=== PATIENT | female | born 1960 | race Caucasian/White ===

== ENCOUNTER → 2022-04-25 10:14 | Outpatient (POV) | payer BC, SELFPAY ==
[2022-04-25 11:55] VITALS: BP 134/83; PULSE 76; RESP 20; TEMP 36.4; O2SAT 99; BMI 21.9
[2022-04-25 13:16] LABS: Amphetamine/Metha Screen,Urine Negative ng/ml (<1000)
[2022-04-25 13:18] LABS: Phencyclidine Screen,Urine Negative ng/ml (<25)
[2022-04-25 13:19] LABS: Barbiturates Screen,Urine Negative ng/ml (<200)
[2022-04-25 13:20] LABS: Benzodiazepines Screen,Urine Negative ng/ml (<200)
[2022-04-25 13:21] LABS: Cannabinoid Screen,Urine Negative ng/ml (<50)
[2022-04-25 13:24] LABS: Cocaine Screen,Urine Negative ng/ml (<300)
[2022-04-25 13:25] LABS: Methadone Screen,Urine Negative ng/ml (<300)
[2022-04-25 13:26] LABS: Opiate Screen,Urine Negative ng/ml (<300)
--- NOTE | 2022-04-25 13:27 | HMH.PMCON ---
Assessment and Plan (1) Crohn's disease Status: Acute Category: Medical Code(s): K50.90 - Crohn's disease, unspecified, without complications (2) Generalized abdominal pain Status: Acute Category: Medical Code(s): R10.84 - Generalized abdominal pain (3) Generalized pain Status: Acute Category: Medical Code(s): R52 - Pain, unspecified - Assessment and plan all Dx Assessment and Plan for all problems:: Patient presents today with generalized pain secondary to severe Crohn's disease. She has had multiple abdominal surgeries. States her colon is plastic. She takes tramadol 50mg 2 tablets three times a day. She is wanting us to continue her medications. At this time, we will start the patient on tramadol 50mg TID. We will obtain a UDS from the pt today. Patient has been instructed to contact the clinic with any concerns before the next appointment. Dr. Rankin has reviewed this note and agrees with this plan of care. This note was dictated using voice recognition software and make contain errors or omissions. HPI - Data of Consult Patient: new to practice Consult date: 04/25/22 Requesting Physician: HEATHER Matos Primary Care Provider: Referral Provider, MD - Consult Narrative Reason for consult: Generalized pain History of present illness: Ms. Sy is a 61 year old female who presents today as a new patient. Patient is referred by Dr. Lopez. Thank you for the referral. Patient presents today with chronic generalized pain especially around abdominal area. Patient has a 40-year history of Crohn's disease. She has had multiple abdominal surgeries. She previously was seeing [facility] pain [facility] spine in [facility] but was discharged from there. She was being prescribed tramadol 50 mg 2 tablets 3 times a day. She states that she is stable on this medication. She was tried on hydrocodone and oxycodone in the past that provided minimal relief. She states that the tramadol is also helping with her diarrhea. She was referred to us by Dr. Lopez, her GI doctor, for pain management. She is not interested in injective therapy at this time since she cannot really pinpoint where she is hurting. She is going to start taking Stelara soon. Rates her pain today as 8/10. Cory [id number], [id number]. CC: HEATHER Matos [facility] History I have reviewed the patient's past medical history: Yes Medical History: Denies:: Diabetes Mellitus Type 2 *Have you ever received a pneumonia vaccine?: No *Have you received a flu vaccine this season?: No Other Surgeries: Yes: Appendectomy, Colonoscopy, Colon Resection, Colostomy, , EGD - *Social History Smoking Status: Never smoker Alcohol Intake: never *Occupational Status:: other *Travel in the last 8 weeks: None Family Hx:: No significant family history Review of Systems - Review of Systems Review of Systems: General: No recent weight changes, no fever, no sleep disturbances Respiratory: No cough, no shortness of air, no recurring pulmonary infections Cardiovascular/peripheral vascular: No chest pain, no palpitations, no edema, no shortness of breath Gastrointestinal: Generalized abdominal pain, diarrhea Genitourinary: No new onset incontinence Musculoskeletal: Back pain Psychiatric: [Normal mood/affect] Neurological: [Denies weakness in extremities], [denies balance issues] Meds Home Medications Medication Instructions Recorded Confirmed Type Loperamide HCl [Loperamide] 2 mg PO Q3H 04/25/22 04/25/22 History Tramadol HCl [Tramadol 50mg 100 mg PO TID 04/25/22 04/25/22 History Tab] Ustekinumab [Stelara] 45 mg SQ . DIRECTED 04/25/22 04/25/22 History ondansetron HCL [Ondansetron 4mg 4 mg PO Q6H PRN 04/25/22 04/25/22 History tab*] predniSONE [Prednisone 10mg Tab 10 mg PO DAILY PRN 04/25/22 04/25/22 History Dose-Pack] Allergies Allergy/AdvReac Type Severity Reaction Status Date / Time Sulfa (Sulfonamide Allergy Verified
[2022-04-30 16:14] LABS: Opiates Negative (Cutoff=100)
== END ==
PROVIDERS: Visit Provider Student in an Organized Health Care Education/Training Program
DX: K50.90 Crohn's disease, unspecified, without complications (principal); R10.84 Generalized abdominal pain; Z79.899 Other long term (current) drug therapy
CPT/HCPCS: 80305; 80361; 80365; 99202; G0463; G0480

== ENCOUNTER → 2022-04-25 11:29 | Outpatient (CLI) | payer OTHER, SELFPAY | PROVIDERS: Visit Provider Student in an Organized Health Care Education/Training Program | DX: Z79.891 Long term (current) use of opiate analgesic (principal) ==

== ENCOUNTER → 2022-05-09 13:06 | Outpatient (POV) | payer BC, SELFPAY ==
[2022-05-09 13:14] VITALS: BP 145/89; PULSE 72; RESP 20; BMI 21.9
--- NOTE | 2022-05-09 13:42 | HMH.PAINSOAP ---
[facility] Pain Management SOAP Note Subjective:: Patient is a pleasant 61-year-old female who presents today for follow-up. Patient is currently being treated for generalized pain, abdominal pain, severe Crohn's disease. We recently established with this patient. She was previously being seen at [facility] and was being managed with tramadol 50 mg 2 tablets 3 times a day. When we took over the patient's care, we discussed with the patient that we cannot prescribe her 6 tablets of tramadol every day. We started her on tramadol 50 mg 3 times a day when we last saw her. Today, patient states that she can definitely feel the difference with the dose change. She states that she is not as productive as when she was taking her tramadol 6x/day. Additionally, she states that she is about to start taking Stelara to help with her Crohn's. She has not started this medication. She rates her pain today as 7 out of 10. Cory [id number] with an active morphine equivalent of 15. Review of Systems: General: No recent weight changes, no fever, no sleep disturbances Respiratory: No cough, no shortness of air, no recurring pulmonary infections Cardiovascular/peripheral vascular: No chest pain, no palpitations, no edema, no shortness of breath Gastrointestinal: Abdominal pain Genitourinary: No new onset incontinence Musculoskeletal: Joint pain, back pain Psychiatric: [Normal mood/affect] Neurological: [Denies weakness in extremities], [denies balance issues] Objective:: Physical Exam: General: Alert and oriented x3, no acute distress, pleasant and cooperative Lungs: Respirations even and unlabored, symmetrical chest expansion Eyes: PERRL Musculoskeletal: Flexion and extension of lumbar [spine] somewhat guarded secondary to pain, [antalgic gait noted]; Neurological: Speech clear, no gross sensory deficit Assessment:: Generalized joint pains, abdominal pain, severe Crohn's disease Plan:: I again reiterated with the patient that we cannot prescribe her tramadol 50 mg 2 tablets 3 times a day. I discussed with her that the most we can do is 4 times a day. She agrees with this. I change her tramadol to tramadol 50mg QID. She can take two tablets in the morning when she is hurting the most then 1 at lunch and 1 at dinner. UDS today specifically looking for tramadol. Follow up in 1 month. Patient has been instructed to contact the clinic with any concerns before the next appointment. Dr. Rankin has reviewed this note and agrees with this plan of care. This note was dictated using voice recognition software and make contain errors or omissions. [facility] History Medical History: Denies:: Diabetes Mellitus Type 2 *Have you ever received a pneumonia vaccine?: No *Have you received a flu vaccine this season?: No Other Surgeries: Yes: Appendectomy, Colonoscopy, Colon Resection, Colostomy, , EGD - *Social History Smoking Status: Never smoker Alcohol Intake: never *Occupational Status:: other *Travel in the last 8 weeks: None Family Hx:: No significant family history
== END ==
PROVIDERS: PCP Psychiatry & Neurology Neurology with Special Qualifications in Child Neurology; Visit Provider Nurse Practitioner Family
DX: M25.50 Pain in unspecified joint (principal); K50.90 Crohn's disease, unspecified, without complications
CPT/HCPCS: 99212; G0463

== ENCOUNTER → 2022-05-09 13:30 | Outpatient (CLI) | payer BC, SELFPAY ==
[2022-05-09 14:51] LABS: Barbiturates Screen,Urine Negative ng/ml (<200); Benzodiazepines Screen,Urine Negative ng/ml (<200)
[2022-05-09 14:52] LABS: Amphetamine/Metha Screen,Urine Negative ng/ml (<1000)
[2022-05-09 14:54] LABS: Cannabinoid Screen,Urine Negative ng/ml (<50)
[2022-05-09 14:55] LABS: Cocaine Screen,Urine Negative ng/ml (<300)
[2022-05-09 14:56] LABS: Methadone Screen,Urine Negative ng/ml (<300); Opiate Screen,Urine Negative ng/ml (<300)
[2022-05-09 14:57] LABS: Phencyclidine Screen,Urine Negative ng/ml (<25)
[2022-05-14 08:18] LABS: Miscellaneous Test NEGATIVE
[2022-05-16 20:08] LABS: Opiates Negative (Cutoff=100)
== END ==
PROVIDERS: Visit Provider Student in an Organized Health Care Education/Training Program
DX: Z79.891 Long term (current) use of opiate analgesic (principal)
CPT/HCPCS: 80305; 80361; 80365; G0480

== ENCOUNTER → 2022-05-26 11:09 | Outpatient (POV) | payer BC, SELFPAY ==
--- NOTE | 2022-05-26 12:08 | EXP.PAIN.SOA ---
[facility] Pain Management SOAP Note Subjective:: Patient is a pleasant 61-year-old female that presents today for follow-up. We are currently treating the patient for generalized pain, abdominal pain, severe Crohn's disease. Today she rates her pain a 8 out of 10. She states it is all generalized including in her joints and abdomen. She denies any new trauma or injury. She states this is the same pain she has been experiencing. She has recently started her Stelara injections for her Crohn's. She states she gets these every 8 weeks and when she does her pain is significantly increased. Patient states she works for the [employer] and has not been able to work due to her pain. We currently are managing the patient on tramadol 50 mg 4 times a day however before coming to our clinic she was prescribed by [facility] pain [facility] spine tramadol 50 mg 2 tablets 3 times a day. She is requesting an increase in her tramadol at today's visit. She does take Lomotil 2.5 mg 8 times a day by Dr. Swapnil guzman. her Cory is [id number]. It has been reviewed and appropriate. Review of Systems: General: No recent weight changes, no fever, no sleep disturbances Respiratory: No cough, no shortness of air, no recurring pulmonary infections Cardiovascular/peripheral vascular: No chest pain, no palpitations, no edema, no shortness of breath Gastrointestinal: No new onset incontinence, normal bowel movements reported Genitourinary: No new onset incontinence Musculoskeletal: Generalized pain, joint pain, abdominal pain Psychiatric: [Normal mood/affect] Neurological: [Denies weakness in extremities], [denies balance issues] Objective:: Physical Exam: General: Alert and oriented x3, no acute distress, pleasant and cooperative Lungs: Respirations even and unlabored, symmetrical chest expansion Eyes: PERRL Musculoskeletal: Flexion and extension of [lumbar] [spine] somewhat guarded secondary to pain, [antalgic gait noted] Neurological: Speech clear, no gross sensory deficit Assessment:: Generalized pain, abdominal pain, severe Crohn's disease Plan:: Patient continues to have significant generalized pain in her joints and abdomen due to her Crohn's disease. We are currently managing the patient with tramadol 50 mg 4 times a day. I will reorder this medication and provide a 1 month supply. We will not be increasing her dosage at this time. I have discussed with the patient about trying diclofenac twice a day. She has been counseled on stopping use of all other NSAIDs including her Advil she previously took and take her medication with food to minimize side effects. Patient denies any cardiac history or kidney issues. Patient will follow-up in 1 month. She will return to clinic in 1 month for follow-up and reevaluation of symptoms. Patient has been instructed to contact the clinic with any concerns before the next appointment. Dr. Rankin has reviewed this note and agrees with this plan of care. This note was dictated using voice recognition software and make contain errors or omissions. PFSH PFSH Social History Smoking Status: Never smoker alcohol intake: never current occupational status: other
[2022-05-26 12:58] VITALS: BP 147/78; PULSE 63; RESP 18; TEMP 36.5; O2SAT 100; BMI 21.9
== END | disposition home or self-care (01) ==
PROVIDERS: Visit Provider Nurse Practitioner Family
DX: K50.90 Crohn's disease, unspecified, without complications (principal); R52 Pain, unspecified
CPT/HCPCS: 99212; G0463

== ENCOUNTER → 2022-06-27 13:28 | Outpatient (POV) | payer BC, SELFPAY ==
--- NOTE | 2022-06-27 13:46 | EXP.PAIN.SOA ---
[facility] Pain Management SOAP Note Subjective:: Patient is a pleasant 61-year-old female who presents today via telehealth visit for follow-up and medication refill. Patient is at home currently during our telehealth visit. We are currently treating the patient for generalized pain, abdominal pain, severe Crohn's disease. Today she rates her pain a 8 out of 10. She states that she has generalized pain in her joints and abdomen however today she does believe that she is COVID-positive and is experiencing flulike symptoms including headache and throwing up. She states her son recently tested positive and her symptoms started this morning. Patient denies any new trauma or injury related to her pain symptoms. She recently has started Stelara injections for her Crohn's. Patient states she gets these about 8 weeks apart and frequently has increased pain during this timeframe. Patient states the tramadol 50 mg 4 times a day that we are currently prescribing does help manage her pain well during these times. Patient does also take Lomotil 2.5 mg 8 times a day by Dr. Swapnil Huitron. Her Cory is [id number]. It has been reviewed and appropriate. Review of Systems: General: No recent weight changes, no fever, no sleep disturbances Respiratory: No cough, no shortness of air, no recurring pulmonary infections Cardiovascular/peripheral vascular: No chest pain, no palpitations, no edema, no shortness of breath Gastrointestinal: No new onset incontinence, normal bowel movements reported Genitourinary: No new onset incontinence Musculoskeletal: Generalized pain, abdominal pain Psychiatric: [Normal mood/affect] Neurological: [Denies weakness in extremities], [denies balance issues] Objective:: Physical Exam: General: Alert and oriented x3, no acute distress, pleasant and cooperative Lungs: Respirations even and unlabored, symmetrical chest expansion Eyes: PERRL Musculoskeletal: Flexion and extension of lumbar [spine] somewhat guarded secondary to pain, [antalgic gait noted] Neurological: Speech clear, no gross sensory deficit Assessment:: Generalized pain, abdominal pain, severe Crohn's disease Plan:: Patient is experiencing worsening pain during today's telehealth visit due to COVID-like symptoms. I have counseled the patient to not wait if her symptoms worsen or she continually is unable to tolerate anything by mouth due to continuous vomiting. Patient's telehealth visit lasted roughly 10 minutes. I will reorder the patient's tramadol 50 mg 4 times a day and provide a 1 month supply of this medication. Patient will follow-up in clinic in 1 month for reevaluation of symptoms and medication refill. Patient has been advised of risks of oversedation with the prescribed medication. Narcan has been offered to the patient in the event of oversedation. Patient has been advised that a family member should also be educated regarding administration of Narcan. Patient has been instructed to contact the clinic with any concerns before the next appointment. Dr. Rankin has reviewed this note and agrees with this plan of care. This note was dictated using voice recognition software and make contain errors or omissions. [facility] Social History (Updated 05/26/22 @ 12:17 by Kristina Chase APRN) Smoking Status: Never smoker alcohol intake: never current occupational status: other Travel in the last 8 weeks: None
== END | disposition home or self-care (01) ==
PROVIDERS: Visit Provider Nurse Practitioner Family
DX: K50.90 Crohn's disease, unspecified, without complications (principal)
CPT/HCPCS: 99212; G0463

== ENCOUNTER → 2022-07-25 12:06 | Outpatient (POV) | payer BC, SELFPAY ==
[2022-07-25 12:17] VITALS: BP 127/81; PULSE 72; RESP 18; TEMP 37.1; O2SAT 97; BMI 21.0
--- NOTE | 2022-07-25 15:04 | EXP.PAIN.SOA ---
[facility] Pain Management SOAP Note Subjective:: Patient is a pleasant 61-year-old female who presents today for medication refill and follow-up. We are currently treating the patient for generalized pain, abdominal pain, severe Crohn's disease. Today the patient rates her pain a 8 out of 10. She states this is a generalized pain in her joints and abdomen. She states she recently had another Stelara injection which caused significant diarrhea and she had to be hospitalized. At this time the patient states she does not plan on continuing these injections. Patient is currently managed with tramadol 50 mg 4 times a day. Patient denies any side effects from this medication. She states this medication does adequately help manage her pain symptoms. She is requesting a refill at today's visit. She is also prescribed Lomotil 2.5 mg 8 times a day by Dr. Swapnil Huitron. Her Cory is [id number]. It has been reviewed and appropriate. Review of Systems: General: No recent weight changes, no fever, no sleep disturbances Respiratory: No cough, no shortness of air, no recurring pulmonary infections Cardiovascular/peripheral vascular: No chest pain, no palpitations, no edema, no shortness of breath Gastrointestinal: No new onset incontinence, normal bowel movements reported Genitourinary: No new onset incontinence Musculoskeletal: Generalized joint pain Psychiatric: [Normal mood/affect] Neurological: [Denies weakness in extremities], [denies balance issues] Objective:: Physical Exam: General: Alert and oriented x3, no acute distress, pleasant and cooperative Lungs: Respirations even and unlabored, symmetrical chest expansion Eyes: PERRL Musculoskeletal: Flexion and extension of lumbar [spine] somewhat guarded secondary to pain, [antalgic gait noted] Neurological: Speech clear, no gross sensory deficit Assessment:: Generalized pain, abdominal pain, severe Crohn's Plan:: Patient continues to have significant pain in her joints, and abdomen. I will refill the patient's tramadol 50 mg 4 times a day and provide a 1 month supply of this medication. Patient does travel from [place] and I have discussed with the patient regarding her next visit being a telehealth. We will schedule the patient for a 1 month follow-up via audio telehealth for reevaluation of symptoms and medication refill. Patient has been advised of risks of oversedation with the prescribed medication. Narcan has been offered to the patient in the event of oversedation. Patient has been advised that a family member should also be educated regarding administration of Narcan. Patient has been instructed to contact the clinic with any concerns before the next appointment. Dr. Rankin has reviewed this note and agrees with this plan of care. This note was dictated using voice recognition software and make contain errors or omissions. [facility] Social History (Updated 05/26/22 @ 12:17 by Kristina Chase APRN) Smoking Status: Never smoker alcohol intake: never current occupational status: retired Travel in the last 8 weeks: None
== END | disposition home or self-care (01) ==
PROVIDERS: PCP Psychiatry & Neurology Neurology with Special Qualifications in Child Neurology; Visit Provider Nurse Practitioner Family
DX: K50.90 Crohn's disease, unspecified, without complications (principal); R52 Pain, unspecified
CPT/HCPCS: 99212; G0463

== ENCOUNTER → 2022-08-22 09:17 | Outpatient (POV) | payer BC, SELFPAY ==
--- NOTE | 2022-08-22 09:18 | A.OFFVIS_ITS ---
[facility] Pain Management SOAP Note Subjective:: Patient is a pleasant 62-year-old female who presents today for audio telehealth visit for medication refill and follow-up. This visit is occurring at the patient's home and she is given consent for this appointment. We are currently treating the patient for generalized pain, abdominal pain, severe Crohn's disease. Today she rates her pain a 8 out of 10. Patient denies any new trauma or injury. Patient does state she is experiencing worsening pain due to having the flu. Patient is managed with tramadol 50 mg 4 times a day. Patient denies any side effects from this medication. Patient states she is doing well with this medication regimen and is requesting refill at today's visit. At her previous visit she did state that she was putting her Stelara injections on hold due to the significant side effects they cauterized. Patient today states that she has not had any additional injections of this medication since. Patient's Cory is [id number]. It has been reviewed and appropriate. Review of Systems: General: No recent weight changes, no fever, no sleep disturbances Respiratory: No cough, no shortness of air, no recurring pulmonary infections Cardiovascular/peripheral vascular: No chest pain, no palpitations, no edema, no shortness of breath Gastrointestinal: No new onset incontinence, normal bowel movements reported Genitourinary: No new onset incontinence Musculoskeletal: Joint pain, abdominal pain Psychiatric: [Normal mood/affect] Neurological: [Denies weakness in extremities], [denies balance issues] Objective:: General: Alert and oriented x3, pleasant and cooperative Lungs: Patient is able to say complete sentences without dyspnea Neurological: Speech clear Assessment:: Generalized pain, abdominal pain, severe Crohn's disease Plan:: Patient continues to experience pain in her abdomen and joints and is currently under the weather with the flu. I will refill the patient's tramadol 50 mg 4 times a day and provide a 1 month supply of this medication. This telehealth visit occurred [id number]. Patient will return to clinic in 1 month for reevaluation of symptoms, medication refill and follow-up. Patient has been advised of risks of oversedation with the prescribed medication. Narcan has been offered to the patient in the event of oversedation. Patient has been advised that a family member should also be educated regarding administration of Narcan. Patient has been instructed to contact the clinic with any concerns before the next appointment. Dr. Rankin has reviewed this note and agrees with this plan of care. This note was dictated using voice recognition software and make contain errors or omissions. [facility] Social History (Updated 05/26/22 @ 12:17 by Kristina Chase APRN) Smoking Status: Never smoker alcohol intake: never current occupational status: retired Travel in the last 8 weeks: None
== END | disposition home or self-care (01) ==
PROVIDERS: Visit Provider Nurse Practitioner Family
DX: K50.90 Crohn's disease, unspecified, without complications (principal); R52 Pain, unspecified
CPT/HCPCS: 99212; G0463

== ENCOUNTER → 2022-09-22 13:53 | Outpatient (POV) | payer BC, SELFPAY ==
[2022-09-22 14:19] VITALS: BP 144/93; PULSE 69; RESP 18; O2SAT 96; BMI 19.2
--- NOTE | 2022-09-22 16:05 | A.OFFVIS_ITS ---
[facility] Pain Management SOAP Note Subjective:: Patient is a pleasant 62-year-old female who presents today for medication refill and follow-up. Patient is currently being treated for generalized pain, abdominal pain, severe Crohn's disease. Patient has had multiple surgeries on her stomach. She also has a plastic colon. She is prescribed tramadol 50 mg 4 times a day. Denies any side effects from this medication. She states that the medication is helping some of her pain but is wanting to know if we can increase it. She was taking tramadol 50 mg 6 times a day at her previous provider. She has also been getting Stelara injections but it is not helping her. Cory has been reviewed and appropriate drug screen appropriate.. Review of Systems: General: No recent weight changes, no fever, no sleep disturbances Respiratory: No cough, no shortness of air, no recurring pulmonary infections Cardiovascular/peripheral vascular: No chest pain, no palpitations, no edema, no shortness of breath Gastrointestinal: No new onset incontinence, normal bowel movements reported, abdominal pain Genitourinary: No new onset incontinence Musculoskeletal: Joint pain Psychiatric: [Normal mood/affect] Neurological: [Denies weakness in extremities], [denies balance issues] Objective:: Physical Exam: General: Alert and oriented x3, no acute distress, pleasant and cooperative Lungs: Respirations even and unlabored, symmetrical chest expansion Eyes: PERRL GI: Guarded on all quadrants to palpation Neurological: Speech clear, no gross sensory deficit Assessment:: Generalized pain, abdominal pain, severe Crohn's disease Plan:: I will increase the patient's tramadol 50 mg to 5 times a day. We will provide the patient with 3-month of refills. We would like to see the patient back in 3 months for follow-up and reevaluation of chronic pain syndrome. Patient has been advised of risks of oversedation with the prescribed medication. Narcan has been offered to the patient in the event of oversedation. Patient has been advised that a family member should also be educated regarding administration of Narcan. Patient has been instructed to contact the clinic with any concerns before the next appointment. Dr. Rankin has reviewed this note and agrees with this plan of care. This note was dictated using voice recognition software and make contain errors or omissions. [facility] Disclaimer: The information contained in this section may have been updated after the patient was seen, as this information can be updated by other users. Social History (Updated 05/26/22 @ 12:17 by Kristina Chase APRN) Smoking Status: Never smoker alcohol intake: never current occupational status: employed Travel in the last 8 weeks: None
== END | disposition home or self-care (01) ==
PROVIDERS: Visit Provider Student in an Organized Health Care Education/Training Program
DX: R10.9 Unspecified abdominal pain (principal); R52 Pain, unspecified; K50.90 Crohn's disease, unspecified, without complications
CPT/HCPCS: 99212; G0463

== ENCOUNTER → 2022-12-19 14:00 | Outpatient (POV) | payer BC, SELFPAY ==
--- NOTE | 2022-12-19 14:35 | EXP.PAIN.SOA ---
[facility] Pain Management SOAP Note Subjective:: Patient is a pleasant 62-year-old female who presents today for 3-month follow-up and medication refill. We are currently treating the patient for generalized pain, abdominal pain, severe Crohn's disease. Today she rates her pain an 8 out of 10. Patient denies any new trauma or injury. Patient denies any change to location or type of pain she experiences. Patient states she has just come off of having a weeklong Crohn's attack. Patient does have significant bloating in her abdomen during today's visit. Patient was previously on Stelara injections however these did not provide significant improvement and she had worsening symptoms. Patient states that currently her doctor wants her to start taking Skyrizi which is an infusion once every 3 months. Patient states she is reluctant to do this due to all the trouble she has had in the past with feeling these medications for her Crohn's. Patient does have a history of over 22 surgeries. Patient states she did recently change her pharmacy for her tramadol at our last visit however she states that Jose Enriqueogejudie used a different digital court reporter and that when she took them she did not even notice that she had taken something. Patient is requesting that her tramadol refill be sent back to [facility] in [place]. Patient is currently prescribed tramadol 50 mg 5 times a day. Patient denies any side effects from this medication. Her Cory is [id number]. Review of Systems: General: No recent weight changes, no fever, no sleep disturbances Respiratory: No cough, no shortness of air, no recurring pulmonary infections Cardiovascular/peripheral vascular: No chest pain, no palpitations, no edema, no shortness of breath Gastrointestinal: No new onset incontinence, normal bowel movements reported Genitourinary: No new onset incontinence Musculoskeletal: Abdominal pain Psychiatric: [Normal mood/affect] Neurological: [Denies weakness in extremities], [denies balance issues] Objective:: Physical Exam: General: Alert and oriented x3, no acute distress, pleasant and cooperative Lungs: Respirations even and unlabored, symmetrical chest expansion Eyes: PERRL Musculoskeletal: Flexion and extension of lumbar [spine] somewhat guarded secondary to pain, [antalgic gait noted] Neurological: Speech clear, no gross sensory deficit Assessment:: Generalized pain, abdominal pain, severe Crohn's disease Plan:: Patient is doing well with her current medication regimen. I will refill her tramadol 50 mg 5 times a day and provide a 3-month supply of this medication. I have counseled the patient to take this medication as prescribed. Patient will return to clinic in 3 months for reevaluation of symptoms, medication refill and follow-up. Patient has been instructed to contact the clinic with any concerns before the next appointment. Dr. Rankin has reviewed this note and agrees with this plan of care. This note was dictated using voice recognition software and make contain errors or omissions. [facility] Disclaimer: The information contained in this section may have been updated after the patient was seen, as this information can be updated by other users. Social History (Updated 05/26/22 @ 12:17 by Kristina Chase APRN) Smoking Status: Never smoker alcohol intake: never current occupational status: employed Travel in the last 8 weeks: None
[2022-12-19 15:17] VITALS: BP 140/80; PULSE 71; RESP 18; O2SAT 98; BMI 20.1
== END | disposition home or self-care (01) ==
PROVIDERS: Visit Provider Nurse Practitioner Family
DX: K50.90 Crohn's disease, unspecified, without complications (principal); R52 Pain, unspecified
CPT/HCPCS: 99212; G0463

== ENCOUNTER → 2022-12-19 14:47 | Outpatient (CLI) | payer BC, SELFPAY ==
[2022-12-19 16:31] LABS: Amphetamine/Metha Screen,Urine Negative ng/ml (<1000)
[2022-12-19 16:32] LABS: Barbiturates Screen,Urine Negative ng/ml (<200); Benzodiazepines Screen,Urine Negative ng/ml (<200)
[2022-12-19 16:33] LABS: Cannabinoid Screen,Urine Negative ng/ml (<50); Cocaine Screen,Urine Negative ng/ml (<300)
[2022-12-19 16:34] LABS: Methadone Screen,Urine Negative ng/ml (<300)
[2022-12-19 16:35] LABS: Opiate Screen,Urine Negative ng/ml (<300); Phencyclidine Screen,Urine Negative ng/ml (<25)
[2022-12-27 19:11] LABS: Opiates Negative (Cutoff=100)
== END ==
PROVIDERS: Visit Provider Nurse Practitioner Family
DX: Z79.891 Long term (current) use of opiate analgesic (principal)
CPT/HCPCS: 80305; 80361; 80365; G0480

== ENCOUNTER → 2023-03-20 13:07 | Outpatient (POV) | payer BC, SELFPAY ==
[2023-03-20 13:25] VITALS: BP 153/103; PULSE 71; RESP 18; BMI 19.2
--- NOTE | 2023-03-20 13:39 | A.OFFVIS_ITS ---
[facility] Pain Management SOAP Note Subjective:: Patient is a pleasant 62-year-old female who presents today for 3-month follow- up and medication refill. We are currently treating the patient for generalized joint pain, abdominal pain, severe Crohn's disease. Today she rates her pain a 4 out of 10. Patient denies any new trauma or injury. She does state that she did have severe Crohn's attack over the last couple weeks however it is much better today. Patient does state that she was scheduled to get Remicade infusions however her current GI doctor does not want to proceed forward with this plan of care. She states today that at their last visit he told her he did see her back in a year. Patient also states that she has been having trouble with her current primary care doctor. Patient has a longstanding history of over 23 surgeries related to her severe Crohn's. She has tried Stelara injections and Skyrizi and will occasionally have issues with diarrhea. Patient is currently managed with tramadol 50 mg 5 times a day. Patient denies any side effects from this medication. She does state today that she continues to have issues at [facility] with filling her medications and that she would like to switch these to [facility] in [place]. Her Cory is [id number]. Its been reviewed and appropriate. Review of Systems: General: No recent weight changes, no fever, no sleep disturbances Respiratory: No cough, no shortness of air, no recurring pulmonary infections Cardiovascular/peripheral vascular: No chest pain, no palpitations, no edema, no shortness of breath Gastrointestinal: No new onset incontinence, normal bowel movements reported Genitourinary: No new onset incontinence Musculoskeletal: Abdominal pain Psychiatric: [Normal mood/affect] Neurological: [Denies weakness in extremities], [denies balance issues] Objective:: Physical Exam: General: Alert and oriented x3, no acute distress, pleasant and cooperative Lungs: Respirations even and unlabored, symmetrical chest expansion Eyes: PERRL Musculoskeletal: Flexion and extension of lumbar [spine] somewhat guarded secondary to pain, [antalgic gait noted] Neurological: Speech clear, no gross sensory deficit Assessment:: Generalized joint pain, abdominal pain, severe Crohn's disease Plan:: I will send the patient for referral to Paty Hobbs here at [facility] to establish primary care as well as a referral to Henry Erazo at [facility] for her chronic Crohn's. I will refill the patient's tramadol 50 mg 5 times a day and provide a 3-month supply of this medication. Patient will return to clinic in 3 months for reevaluation of symptoms and medication refill. Patient has been instructed to contact the clinic with any concerns before the next appointment. Dr. Rankin has reviewed this note and agrees with this plan of care. This note was dictated using voice recognition software and make contain errors or omissions. [facility] Disclaimer: The information contained in this section may have been updated after the patient was seen, as this information can be updated by other users. Social History (Updated 05/26/22 @ 12:17 by Kristina Chase APRN) Smoking Status: Never smoker alcohol intake: never current occupational status: employed Travel in the last 8 weeks: None
== END | disposition home or self-care (01) ==
PROVIDERS: Visit Provider Nurse Practitioner Family
DX: M25.50 Pain in unspecified joint (principal); R10.84 Generalized abdominal pain; K50.90 Crohn's disease, unspecified, without complications
CPT/HCPCS: 99212; G0463

== ENCOUNTER → 2023-03-20 13:41 | Outpatient (CLI) | payer BC, SELFPAY ==
[2023-03-20 15:11] LABS: Amphetamine/Metha Screen,Urine Negative ng/ml (<1000)
[2023-03-20 15:12] LABS: Barbiturates Screen,Urine Negative ng/ml (<200); Benzodiazepines Screen,Urine Negative ng/ml (<200)
[2023-03-20 15:13] LABS: Cannabinoid Screen,Urine Negative ng/ml (<50)
[2023-03-20 15:14] LABS: Cocaine Screen,Urine Negative ng/ml (<300); Methadone Screen,Urine Negative ng/ml (<300)
[2023-03-20 15:15] LABS: Opiate Screen,Urine Negative ng/ml (<300)
[2023-03-20 15:16] LABS: Phencyclidine Screen,Urine Negative ng/ml (<25)
[2023-03-27 10:29] LABS: Opiates Negative (Cutoff=100)
== END ==
PROVIDERS: Nurse Practitioner Family; PCP Psychiatry & Neurology Neurology with Special Qualifications in Child Neurology; Visit Provider Anesthesiology
DX: Z87.891 Personal history of nicotine dependence (principal)
CPT/HCPCS: 80305; 80361; 80365; G0480

== ENCOUNTER 2024-05-16 14:48 | Outpatient (POV) | payer BC, SELFPAY ==
[2024-05-16 15:26] VITALS: BP 146/89; PULSE 84; RESP 18; O2SAT 93; BMI 21.9
--- NOTE | 2024-05-16 16:05 | A.OFFVIS_ITS ---
[facility] Disclaimer: The information contained in this section may have been updated after the patient was seen, as this information can be updated by other users. Social History (Updated 05/26/22 @ 12:17 by Kristina Chase APRN) Smoking Status: Never smoker alcohol intake: never current occupational status: unemployed Travel in the last 8 weeks: None PM Subjective & Objective Subjective Subjective:: Patient is a pleasant 63-year-old female who presents today for follow-up. Today she rates her pain an 8 out of 10. Patient does state from her last visit she has had more go on other than her severe Crohn's. Patient states she was diagnosed with stage IV breast, brain and lymph node cancer. Patient states that she is going through chemo and radiation. Patient from our last visit ended up going to palliative care however is now doing treatment and her previous provider that was covering her pain medication of tramadol 50 mg 6 times a day will no longer give her prescription for this. Patient does state that this does significantly help with the overall pain symptoms. Patient is asking whether or not if this is a medication we can take over. Her Cory has been reviewed and is appropriate. Review of Systems: General: No recent weight changes, no fever, no sleep disturbances Respiratory: No cough, no shortness of air, no recurring pulmonary infections Cardiovascular/peripheral vascular: No chest pain, no palpitations, no edema, no shortness of breath Gastrointestinal: No new onset incontinence, normal bowel movements reported Genitourinary: No new onset incontinence Musculoskeletal: Abdominal pain, breast pain Psychiatric: [Normal mood/affect] Neurological: [Denies weakness in extremities], [denies balance issues] Pain at rest (0-10 scale): 8 Objective Objective:: Physical Exam: General: Alert and oriented x3, no acute distress, pleasant and cooperative Lungs: Respirations even and unlabored, symmetrical chest expansion Eyes: PERRL Musculoskeletal: Flexion and extension of lumbar [spine] somewhat guarded secondary to pain, [antalgic gait noted] Neurological: Speech clear, no gross sensory deficit Has patient had previous pain injection?: No Conservative treatment options previously tried: Prescription medications Length of treatment: Longer than 6 weeks Meds Home Medications and Allergies Home Medications ?Medication ?Instructions ?Recorded ?Confirmed ?Type loperamide 2 mg tablet 2 mg PO Q3H diarrhea 04/25/22 05/16/24 History ondansetron HCl 4 mg tablet 4 mg PO Q6H PRN Nausea 04/25/22 05/16/24 History prednisone 10 mg tablets in a dose 10 mg PO DAILY PRN chrons 04/25/22 05/16/24 History pack ustekinumab 45 mg/0.5 mL 45 mg SQ . DIRECTED chrons 04/25/22 05/16/24 History subcutaneous syringe tramadol 50 mg tablet 50 mg PO 5XDAY #150 tabs 04/17/23 05/16/24 Rx anastrozole 1 mg tablet 1 mg PO DIRECTED 05/16/24 05/16/24 History diphenoxylate-atropine 2.5 2.5 tab PO DIRECTED 05/16/24 05/16/24 History mg-0.025 mg tablet promethazine 25 mg tablet 25 mg PO DIRECTED 05/16/24 05/16/24 History ribociclib 400 mg/day (200 mg x 2) 400 mg PO DIRECTED 05/16/24 05/16/24 History tablets (Kisqali) New Prescriptions to Start Prescriptions: Allergies Allergy/AdvReac Type Severity Reaction Status Date / Time fat emulsions Allergy Unknown Verified 03/15/23 14:32 allergy reaction Sulfa (Sulfonamide Allergy Unknown Verified 03/15/23 14:32 Antibiotics) allergy reaction Assessment and Plan *Assessment and plan (1) Breast cancer: Status: Acute Qualifiers: Breast location: unspecified site of breast Estrogen receptor status: unspecified Patient sex: female Laterality: left Qualified Code(s): C50.912 - Malignant neoplasm of unspecified site of left female breast Category: Medical Code(s): C50.919 - Malignant neoplasm of unspecified site of unspecified female breast (2) Brain cancer: Status: Acute Qualifiers: Malignant neoplasm of brain location: unspecified location Qualified Code(s): C71.9 - Malignant neoplasm of brain, unspecified Category: Medical Code(s): C71.9 - Malignant neoplasm of brain, unspecified Plan I have counseled the patient that we have no problem taking over her tramadol prescription with her recent diagnosis. He did have imaging and records from her cancer center radiation they are in [facility] sent over. We will send in a prescription of tramadol 50 mg 6 times a day and provide a 3-month supply of this medication. Patient will return to clinic in 3 months for reevaluation of symptoms and plan of care. Risks and benefits of the medication have been explained in detail to the patient. The patient does understand the risk of dependence on the medication when given over a prolonged period. Patient has been advised of risks of oversedation with the prescribed medication. Narcan has been offered to the paitent in the event of oversedation. Patient has been advised that a family member should also be educated regarding administration of Narcan. The patient has been advised to consult with his/her primary care provider and pharmacist regarding drug-drug interaction of medications currently prescribed. Patient has been prescribed a controlled substance after being counseled on the medication, medication safety, and possible side effects. Opioid contract was reviewed and signed by the patient, and that they have agreed to all of the terms set forth by our compliance program. Patient has been instructed to contact the clinic with any concerns before the next appointment. Dr. Rankin has reviewed this note and agrees with this plan of care. This note was dictated using voice recognition software and make contain errors or omissions.
== END 2024-05-16 23:59 | disposition home or self-care (01) ==
PROVIDERS: Visit Provider Nurse Practitioner Family
DX: C50.912 Malignant neoplasm of unspecified site of left female breast (principal); C71.9 Malignant neoplasm of brain, unspecified
CPT/HCPCS: 99212; G0463

== ENCOUNTER 2024-08-15 13:41 | Outpatient (POV) | payer BC, SELFPAY ==
--- OUTSIDE RECORDS SUMMARY | 2024-08-15 13:44 | XMS_ITS | Encounter Summary ---
Author Organization [facility] Address [address] [place] [id number] Care Team Providers Care Hatchery Laborer Name Role Phone Damaso Black MD Primary Care Provider [phone] Source Comments This information has been disclosed to you from confidential records protectfrom disclosure by state law. You shall make no further disclosure of thisinformation without the specific, written, and informed release of theindividual to whom it pertains, or as otherwise permitted by law. A generalauthorization for the release of medical or other information is not sufficientfor the purposes of the release of HIV test results or diagnoses. [id number] Health Encounter Details Date Type Department Care Team (Latest Contact Info) Description 04/08/2020 Travel Social History Tobacco Use Types Packs/Day Years Used Date Smoking Tobacco: Never Smokeless Tobacco: Never Alcohol Use Standard Drinks/Week Comments Not Currently 0 (1 standard drink = 0.6 oz pur e alcohol) PHQ-2 Answer Date Recorded PHQ-2 Total Score 0 04/08/2020 Comments No Sex and Gender Information Value Date Recorded Sex Assigned at Female 12/06/2019 8:50 AM EST Legal Sex Female 7:50 PM EST Gender Identity Female 12/06/2019 8:50 AM EST Sexual Orientation Not on file COVID-19 Exposure Response Date Recorded In the last month, have you been in contact with someone who was confirmed or suspected to have Coronavirus / COVID-19? No / Unsure 03/24/2020 7:30 PM EDT documented as of this encounter Plan of Treatment Not on file documented as of this encounter Visit Diagnoses Not on filedocumented in this encounter Care Teams Hatchery Laborer Relationship Specialty Start Date End Date Damaso Black MD [address] [place] [address] PCP - General Family Medicine 12/03/19 documented as of this encounter
--- OUTSIDE RECORDS SUMMARY | 2024-08-15 13:44 | XMS_ITS | Encounter Summary ---
Author Organization [facility] Address [address] [place] [address] Care Team Providers Care Funeral Location Manager Name Role Phone Damaso Black MD Primary Care Provider [phone] Source Comments This information has been disclosed [...] release of HIV test results or diagnoses. [id number] Reason for Visit * Auth/Cert Specialty Diagnoses / Procedures Referred By Lata deal Referred To Contact Gastroenterology [facility] Gastroenterology at [address] [address] Phone: tel: fax: Referral ID Status Reason Start Date Expiration Date Visits Re quested Visits Authorized [id number] 1 Encounter Details Date Type Department Care Team (Latest Contact Info) Description 04/08/2020 3:00 PM EDT Office Visit [facility] Gastroenterology at [address], [address] [address] Kylie Ignacio MD Crohn's disease of both small and large intestine with other complication ([facility]) (Primary Dx) Social History Tobacco Use Types Packs/Day Years [...] PM EDT documented as of this encounter Last Filed Vital Signs Vital Sign Reading Time Taken Comments Blood Pressure 128/80 04/08/2020 2:52 PM EDT Pulse 90 04/08/2020 2:52 PM EDT Temperature - - Respiratory Rate - - Oxygen Saturation - - Inhaled Oxygen Concentration - - Weight 53.1 kg (117 lb) 04/08/2020 2:52 PM EDT Height 157.5 cm (5' 2 ) 04/08/2020 2:52 PM EDT Body Mass Index 21.4 04/08/2020 2:52 PM EDT documented in this encounter Progress Notes * Kylie Ignacio MD - 04/08/2020 3:00 PM EDT GI CONSULT Referring: Wayne Consult Attending:Mateus 04/08/2020 2:56 PM Marleni Sy is an 59 y.o. female being seen at the request of Dr. Black for Crohn. From previous records: EGD/[place] 12/06/[address] Garcia: perianal fistula; large ileal ulcers, aphthae Inthe R and L colon, large rectal ulcers; path: CMV. Pt placed on valganciclovir 900mg BID x 3 wks. Candidal esophagitis and linear Pt had been seeing GI at [facility], no records, appears to have received Entyvio? t is noted to be very noncompliant. She has had some resections in the past and remained out of medical care apparently for >20y. 03/24/20: In ED with pus ans swelling of the L buttock CT 12/03/19: IMPRESSION: ?? 1. Wall thickening and mucosal hyperenhancement of the rectum and proximal sigmoid colon with associated fat stranding consistent with active Crohn's disease. 2. Findings suspicious for rectovaginal fistula with free air seen in the uterus. 3. 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 4. Cholelithiasis. Went to speak with pt. Was greeted by pt stating she is here to receive her Remicade. Pt stated thePlasticellvio is not working. Pt related she had a plan set up with Dr. Campbell to begin Remicade following her hospitalization in 12/2019. However, due to insurance (per the pt) she had to return to [facility] and the GI there would not give her Remicade, only Entyvio. Pt wanted to go back to [facility] howeverwas not able to get an appt now and the earliest appt was with me. She came to this clinic even though she does not wish to travel this far but will for now until able to go back to the [facility] office as it is closer for her. She states she already has her plan and is to get her Remicade. I informed the pt I reviewed all of her notes and orders and there are no orders for Remicade. Also, my office is not an infusion site. Pt stated she is not sure why she is here then [facility] Per her [facility] summary the pt was to have an appt in [facility] 2 weeks following her discharge. This is the only follow-up plan noted other than treatment of her CMV colitis. A message has been sent to REGINE Randall for Dr. Campbell, regarding this pt. She needs GI assistance however is not willing to discuss anything regarding her Crohn's with me other than receiving her Remicade per her previous plan. I did not make this plan nor see this plan documented. Pt indicated she is just being tossed around . At this point, it is best for the pt, who has already demonstrated significant noncompliance in thepast, to go to the office she will actually follow-up with and believes she already has a plan with. She indicated she will not travel this far all the time for her care. This will be a no charge visit. ROS: Pt denies any chest pain, SOB, lightheadedness, dizziness, fatigue, dysuria, rash, joint or eye pain, oral lesions, bruising, bleeding. History: Past Medical History: Diagnosis Date ??? Crohn's colitis ([facility] Dx) ??? Fistula Past Surgical History: Procedure Laterality Date ??? COLONOSCOPY N/A 12/06/2019 Procedure: COLONOSCOPY W/ OR W/O BIOPSY; Surgeon: Maverick Campbell MD; Location: ENDOSCOPY; Service: Gastroenterology; Laterality: N/A; ??? ESOPHAGOGASTRODUODENOSCOPY N/A 12/06/2019 Procedure: EGD WITH BIOPSY; Surgeon: Maverick Campbell MD; Location: ENDOSCOPY; Service: Gastroenterology; Laterality: N/A; Allergies Allergen Reactions ??? Sulfa (Sulfonamide Antibiotics) Itching and Rash Other reaction(s): Respiratory distress Current Outpatient Medications: ??? traMADoL (ULTRAM) 50 mg tablet, , Disp: , Rfl: ??? hydrocortisone (CORTEF) 5 MG tablet, Take 5 tablets for 5 days followed by 3 tablets for 7 daysfollowed by 1 tablet for 7 days., Disp: 53 tablet, Rfl: 0 ??? metroNIDAZOLE (METROCREAM) 0.75 % cream, Apply topically 2 times a day., Disp: 45 g, Rfl: 0 ??? pantoprazole (PROTONIX) 40 MG tablet, , Disp: , Rfl: SH: Occupation: Marital status: Tobacco use: E cig/vaping: Marijuana use: EtOH use: Illicit drugs: Transfusion: Tattoo: Body piercing: FH: Cancers: Colon: No Uterus: No Ovarian: No Breast: No Colon polyps: No IBD: No Celiac: No PE: @PATIENTWT@ Labs: Current labs and radiology reviewed in [facility] Assessment/Plan: 59 y.o. female with KYLIE IGNACIO MD 04/08/2020 documented in this encounter Plan of Treatment Not on file documented as of this encounter Visit Diagnoses Diagnosis Crohn's disease of both small and large intestine with other complication ([facility])- Primary documented in this encounter Care Teams Funeral Location Manager Relationship Specialty Start Date End Date Damaso Black MD [address] [place] [address] PCP - General Family Medicine 12/03/19 documented as of this encounter
--- OUTSIDE RECORDS SUMMARY | 2024-08-15 13:44 | XMS_ITS | Clinical Summary ---
Author Organization [facility] Address [address] [place] [address] Care Team Providers Care Cosmetic Sales Assistant Name Role Phone Damaso Black MD Primary Care Provider [phone] Source Comments This information has been disclosed to you from confidential records protectedfrom disclosure by state law. You shall make no further disclosure of thisinformation without the specific, written, and informed release of theindividual to whom it pertains, or as otherwise permitted by law. A generalauthorization for the release of medical or other information is not sufficientfor the purposes of therelease of HIV test results or diagnoses. [id number] Allergies Active Allergy Reactions Criticality Noted Date Comments Sulfa (Sulfonamide Antibiotics) Itching,Rash Low 12/03/2019 Other reaction(s): Respiratory distress Medications pantoprazole (PROTONIX) 40 MG tablet 0 Active traMADoL (ULTRAM) 50 mg tablet 0 Active metroNIDAZOLE (METROCREAM) 0.75 % cream Apply topically 2 times a day. 45 g 0 Active hydrocortisone (CORTEF) 5 MG tablet Take 5 tablets for 5 days followed by 3 tablets for 7 days followed by 1 tablet for 7 days. 53 tablet 0 Active ondansetron (ZOFRAN) 4 MG tabletIndicatio ns:PRN Take 4 mg by mouth every 8 hours as needed for Nausea. Indications: PRN Active cyclobenzaprine (FLEXERIL) 5 MG tablet Take 5 mg by mouth 3 times a day as needed for Muscle spasms. Active vedolizumab (ENTYVIO) 300 mg SolRIndications :Crohn's disease,every 4 weeks Intravenous 300 mg once. Indications: Crohn's disease, every 4 weeks Active Active Problems Problem Noted Date Diagnosed Date Alcoholism 12/07/2019 Overview (12/07/2019): Last Assessment & Plan: Denies current use. 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 Will also start lexapro. She is high risk using klonopin given her history of alcoholism and will need to watch closely. Hope that terminal operations manager the ssri will help and will no longer need klonopin. patricia reviewed and ok. Will need follow up in about 4-6 weeks. Food impaction of esophagus 06/25/2016 Crohn's disease 04/02/2015 Overview (12/07/2019): Last Assessment & Plan: Hasn't seen her regular GI in some time and currently not on any medication. Encouraged her to do so. Will continue to work on this. Social History Tobacco Use Types Packs/Day Years [...] AM EST Sexual Orientation Not on file Last Filed Vital Signs Vital Sign Reading Time Taken Comments Blood Pressure 128/80 04/08/2020 2:52 PM EDT Pulse 90 04/08/2020 2:52 PM EDT Temperature 36.6 ??C (97.9 ??F) 03/24/2020 9:58 PM ED T Respiratory Rate 16 03/24/2020 9:58 PM EDT Oxygen Saturation 99% 03/24/2020 9:58 PM EDT Inhaled Oxygen Concentration 99% 03/24/2020 9 :58 PM EDT Weight 53.1 kg (117 lb) 04/08/2020 2:52 PM EDT Height 157.5 cm (5' 2 ) 04/08/2020 2:52 PM EDT Body Mass Index 21.4 04/08/2020 2:52 PM EDT Plan of Treatment Health Maintenance Due Date Last Done Comments Abnormal Colonoscopy Follow Up Discontinued 12/06/2019 , 12/06/2019 Colonoscopy Discontinued 12/06/2019, 12/06/2019 Colorectal Cancer Screening (MyChart) Discontinued Cologuard (FIT-DNA) Discontinued Stool Testing (gFOBT) Discontinued Procedures Procedure Name Priority Date/Time Associated Diagnosis Comments ENDOSCOPY, COLON Routine 12/06/2019 11:5 6 AM EST from Last 3 Months or Most Recently Relevant to Health Maintenance Results * Endoscopy, colon, diagnostic (12/06/2019 11:56 AM EST) 12/06/2019 11:5 6 AM EST Narrative [facility] - 12/06/2019 4:02 PM EST [id number] Procedure Date: 12/06/2019 11:56 AM ? Patient Name: Marleni Sy ? Date of : 1960 ? Admit Type: Inpatient Age: 59 ? Gender: Female Note Status: Finalized ?Attending MD: Maverick Campbell MD Procedure: ? Colonoscopy Indications: ? Crohn's disease of the colon Patient Profile: ? Patient is a Providers: ? Maverick Campbell MD, Vinnie Garcia MD (Fellow) Referring MD: ? Medicines: ? Monitored Anesthesia Care Complications: ? No immediate complications. Estimated blood loss: None. Procedure: ? Pre-Anesthesia Assessment: ? - Prior to the procedure, a History and Physical was ? performed, and patient medications and allergies were ? reviewed. The patient is competent. The risks and ? benefits of the procedure and the sedation options and ? risks were discussed with the patient. All questions ? were answered and informed consent was obtained. Patient ? identification and proposed procedure were verified by ? the physician, the nurse, the dry cleaning manager and the ? gate technician in the procedure room. Mental Status ? Examination: alert and oriented. Airway Examination: ? normal oropharyngeal airway and neck mobility. ? Respiratory Examination: clear to auscultation. CV ? Examination: normal. Prophylactic Antibiotics: The ? patient does not require prophylactic antibiotics. Prior ? Anticoagulants: The patient has taken no previous ? anticoagulant or antiplatelet agents. ASA Grade ? Assessment: III - A patient with severe systemic ? disease. After reviewing the risks and benefits, the ? patient was deemed in satisfactory condition to undergo ? the procedure. The anesthesia plan was to use monitored ? anesthesia care (MAC). Immediately prior to ? administration of medications, the patient was ? re-assessed for adequacy to receive sedatives. The heart ? rate, respiratory rate, oxygen saturations, blood ? pressure, adequacy of pulmonary ventilation, and ? response to care were monitored throughout the ? procedure. The physical status of the patient was ? re-assessed after the procedure. ? After I obtained informed consent, the scope was passed ? under direct vision. Throughout the procedure, the ? patient's blood pressure, pulse, and oxygen saturations ? were monitored continuously. The Colonoscope was ? introduced through the anus and advanced to the ? ileocolonic anastomosis. The colonoscopy was performed ? without difficulty. The patient tolerated the procedure ? well. The quality of the bowel preparation was fair. ? Anatomical landmarks were photographed. ? Findings: ? The perianal exam findings include perianal fistula, erythema of ? buttocks without fluctulence. ? The Simple Endoscopic Score for Crohn's Disease was determined based on ? the endoscopic appearance of the mucosa in the following segments: ? - Ileum: Findings include large ulcers 0.5-2 cm in size, less than 10% ? ulcerated surfaces, less than 50% of surfaces affected and no ? narrowings. Segment score: 4. ? - Right Colon: Findings include aphthous ulcers less than 0.5 cm in ? size, less than 10% ulcerated surfaces, less than 50% of surfaces ? affected and no narrowings. Segment score: 3. ? - Transverse Colon: Findings include no ulcers present, less than 10% ? ulcerated surfaces, less than 50% of surfaces affected and no ? narrowings. Segment score: 2. ? - Left Colon: Findings include aphthous ulcers less than 0.5 cm in size, ? less than 10% ulcerated surfaces and less than 50% of surfaces affected. ? Segment score: 3. ? - Rectum: Findings include large ulcers 0.5-2 cm in size, 10-30% ? ulcerated surfaces and less than 50% of surfaces affected. Segment ? score: 5. ? - Total SES-CD aggregate score: 17. Biopsies were taken with a cold ? forceps for histology, CMV, HSV ? The exam was otherwise without abnormality on direct and retroflexion ? views. ? Impression: ?- Preparation of the colon was fair. ? - Perianal fistula, erythema of buttocks found on ? perianal exam. ? - Simple Endoscopic Score for Crohn's Disease: 17, ? mucosal inflammatory changes secondary to Crohn's ? disease, with ileitis and colitis. Biopsied. ? - The examination was otherwise normal on direct and ? retroflexion views. Recommendation: ?- [facility] to [facility] care. ? - Resume previous diet. ? - Erythema of rectum ? -Peranal fistula present ? -Discuss with colorectal surgery need of MRI Pelvis for ? evaluation of rectum, though no findings of abscess on ? CT abd/pelvis ? -Patient to make decision need of biologic medication ? - Repeat colonoscopy in 5 years for surveillance. ? - Continue present medications. ? Procedure Code(s): ?? --- Professional --- ? 25864, GC, Colonoscopy, flexible; with biopsy, single or ? multiple Diagnosis Code(s): ?? --- Professional --- ? K50.80, Crohn's disease of both small and large ? intestine without complications ? K50.10, Crohn's disease of large intestine without ? complications CPT copyright 2016 [employer]. All rights reserved. The codes documented in this report are preliminary and upon certified coder review may be revised to meet current compliance requirements. Dae Campbell Maverick Campbell MD 12/06/2019 4:02:20 PM Vinnie Garcia MD Scope Withdrawal Time 0 hours 6 minutes 39 seconds Total Procedure Duration Time 0 hours 12 minutes 35 seconds Scope In: 12:04:23 PM Scope Out: 12:16:58 PM ? [address] [address] us Attending Provider Unknown GI PROCEDURE ORDERABL ES Final Result Performing Organization Address City/State/[facility] Co de Phone Number [facility] [address] [facility] [place] [address] from Last 3 Months or Most Recently Relevant to Health Maintenance Insurance [facility] [employer] PLANS [facility] Advance Directives For more information, please contact: [phone] * Full Code (Latest Code Status on File) Date Activated Date Inactivated Comments 12/06/2019 10:04 AM 12/07/2019 5:26 PM * DNRCC-A Date Activated Date Inactivated Comments 12/03/2019 10:21 PM 12/06/2019 10:04 AM * Full Code Date Activated Date Inactivated Comments 12/03/2019 8:11 PM 12/03/2019 10:21 PM Care Teams Cosmetic Sales Assistant Relationship Specialty Start Date End Date Damaso Black MD [address] [place] [address] PCP - General Family Medicine 12/03/19
--- OUTSIDE RECORDS SUMMARY | 2024-08-15 13:44 | XMS_ITS | Encounter Summary ---
Author Organization [facility] Address [address] [place] [address] Care Team Providers Care Coin Box Collector Name Role Phone Damaso Black MD Primary Care Provider [phone] Source Comments This information has been disclosed [...] release of HIV test results or diagnoses. [id number] Health Encounter Details Date Type Department Care Team (Latest Contact Info) Description 03/24/2020 Travel Social History Tobacco Use Types Packs/Day Years Used Date Smoking Tobacco: Never Smokeless Tobacco: Never Comments No Sex and Gender Information Value [...] on filedocumented in this encounter Care Teams Coin Box Collector Relationship Specialty Start Date End Date Damaso Black MD [address] [place] [address] PCP - General Family Medicine 12/03/19 documented as of this encounter
--- OUTSIDE RECORDS SUMMARY | 2024-08-15 13:44 | XMS_ITS | Encounter Summary ---
Author Organization [facility] Address [address] [place] [address] Care Team Providers Care Bindery Operator Name Role Phone Damaso Black MD Primary Care Provider [phone] Source Comments This information has been disclosed [...] release of HIV test results or diagnoses. [id number] Reason for Visit * Reason Comments Appointment Encounter Details Date Type Department Care Team (Late st Contact Info) Description 03/31/2020 Telephone [facility] [address] [place] [address], [address] [place] [id number] Kylie Ignacio MD Appointment Social History Tobacco Use Types Packs/Day Years [...] PM EDT documented as of this encounter Miscellaneous Notes * Telephone Encounter - Mylene Hall RN - 04/02/2020 4:10 PM EDT I spoke with patient and informed her that per my marketing automation manager that Dr. Ignacio is credited and has privileges for [place] [employer] and does not request a PA. The patient should be good to go for her appointment. I left a VM asked her to call back with any questions. * Telephone Encounter - Ashley Wen RN - 03/31/2020 3:22 PM EDT Patient calling regarding appointment 04/08/[address] Ignacio. States office needs to complete [place] with [place] and provider needs [place] license prior to appointment. Please call patient at [phone] to address. documented in this encounter Plan of Treatment Not on file documented as of this encounter Visit Diagnoses Not on filedocumented in this encounter Care Teams Bindery Operator Relationship Specialty Start Date End Date Damaso Black MD [address] [place] [address] PCP - General Family Medicine 12/03/19 documented as of this encounter
--- OUTSIDE RECORDS SUMMARY | 2024-08-15 13:44 | XMS_ITS | Encounter Summary ---
Author Organization [facility] Address [address] [place] [address] Care Team Providers Care Stogie Packer Name Role Phone Damaso Black MD Primary Care Provider [phone] Source Comments This information has been disclosed [...] release of HIV test results or diagnoses. [id number] Health Encounter Details Date Type Department Care Team (Late st Contact Info) Description 04/08/2020 Telephone [facility] at [address] [address] Pat Fagan Social History Tobacco Use Types Packs/Day Years [...] encounter Miscellaneous Notes * Telephone Encounter - Pat Fagan - 04/08/2020 6:34 PM EDT I received a call from the call center with patient on the line. This patient was just in Dr Gatica Luke office for an appointment and the patient said that Dr. Ignacio refused to see her. The patient was very upset because she was seen inpatient and was told that she would need to start remicaide. She said that she was seen inpatient by many of our doctors. In reviewing her chart it looks like she was seen IP by fellows and Dr. Campbell, although she could not remember any of their names. The patient stated that she was on her way down there to the [place] office. A few minutes later she stated that she was on the elevator getting off on the 7th floor. I told her that we were on the6th floor and to have a seat in the waiting area and I would be out as soon as possible. I was going to call the referral department to get more information. Spoke to Kay in the referral department stating that the patients referral was still pending dueto the fact that she had [place] Medicaid and they have no out of network benefits. Kay reached out to Pieter Richards, the Asst. Director of Patient Access to verify this. He explained that [facility] did not take her insurance and that she would have to pay out of Network costs for any treatment she would get. He suggested I guide her to the Financial services department to see if they could assist her in getting [place] regular Medicaid; [place] Well[employer] or [employer] Better [employer]. These are 3 [place] Medicaid plans that we take. I went to waiting room to speak to patient and apologized for her wait. I discussed the insurance issues with her and she said that she would reach out. She was still very upset about not seeing her and prescribing Remicaide for her. documented in this encounter Plan of Treatment Not on file documented as of this encounter Visit Diagnoses Not on filedocumented in this encounter Care Teams Stogie Packer Relationship Specialty Start Date End Date Damaso Black MD [address] [place] [address] PCP - General Family Medicine 12/03/19 documented as of this encounter
--- OUTSIDE RECORDS SUMMARY | 2024-08-15 13:45 | XMS_ITS | Encounter Summary ---
Author Organization [facility] Address [address] [place] [address] Care Team Providers Care Billet Worker Name Role Phone Unavailable Primary Care Provider Unavailabl e Source Comments This information has been disclosed [...] release of HIV test results or diagnoses. [id number] Health Encounter Details Date Type Department Care Team (Late st Contact Info) Description 03/23/2011 - 03/24/2011 11:59 PM EDT Emergency [facility] Emergency Department [address] [place] [id number] [place] [address] [facility] [place], [place] [id number] Discharge Disposition: Home or Self Care WITHOUT Home Care Services Social History Tobacco Use Types Packs/Day Years Used Date Smoking Tobacco: Never Assessed Comments Unknown Sex and Gender Information Value Date Recorded Sex Assigned at Female 12/06/2019 8:50 AM EST Legal Sex Female 7:50 PM EST Gender Identity Female 12/06/2019 8:50 AM EST Sexual Orientation Not on file documented as of this encounter ED Notes * Cam Wei MD - 03/23/2011 10:41 PM EDT [facility] PATIENT NAME: MARLENI ROSALES MR #: [id number] DATE OF : 1960 ED PHYSICIAN: Ian Young M.D. ROOM #: PRIMARY: No Pcp No Pcp NURSING UNIT: ED REFERRING: Selected Referral Pt FC: S DICTATED BY: Cam Wei M.D. ADMIT DATE: 03/23/2011 VISIT DATE: 03/23/2011 DISCHARGE DATE: EMERGENCY DEPARTMENT NOTE *-*-* MODE OF TRANSPORTATION: Brought in by family. CHIEF COMPLAINT: Alcohol intoxication and suicidal ideation. HISTORY OF PRESENT ILLNESS: The patient is a 50-year-old female with past medical history of Crohn disease, more importantly history of major depressive disorder, suicidal ideation and alcohol, is on multiple visits to the ED for alcohol intoxication presents after drinking reportedly a pint of vodka in the course of a day. The patient's family says she has been drinking which is not normal for her alcohol binge; that they had talked to her and she finally told them that she wanted to stop drinking reportedly, so they brought her to the emergency room. When she arrived, the patient's speech was slurred. She was alert and oriented x2. She had urinated all over herself at one point when she first arrived. She was trying to use a bedpan; tried to get out of bed and walked to the bathroom despite being told that it was not appropriate and fell on the floor. No head trauma, just fell to knees. No abrasions or lacerations after that fall. And at last, after the patient had sobered up enough to have a conversation, she said that she did not wish to undergo alcohol intoxication detox program and that she had been having thoughts of hurting herself. She did not have a plan at the time and when asked, if she was discharged from the hospital that she would try to hurt herself, she said she was not sure. The patient was given two liters of normal saline intravenous fluids while in the ED. Her vital signs were stable but given her history of alcohol use and concern for dehydration, she was also given a rally pack. Alcohol level while here was 409. The patient became more aggressive and the more sober she got, was demanding that she be discharged, but given the report of thoughts of hurting herself as well as inability to take care of herself, was placed on a psychiatric hold. REVIEW OF SYSTEMS: Also during the visit, she denies chest pain, shortness of breath, nausea, vomiting, diarrhea, headache, arthralgias, fever or chills. ALLERGIES: None. PAST MEDICAL HISTORY: 1. Crohn disease. 2. History of alcoholism, multiple ED visits for alcohol intoxication. 3. History of suicidal ideation. FAMILY HISTORY: Noncontributory. SOCIAL HISTORY: The patient has a history of alcoholism and drinks a pint of vodka in a day per patient. She denies recent tobacco use. No other illicit drug use. PHYSICAL EXAMINATION: VITAL SIGNS: Blood pressure 128/76, pulse of 86, respiratory rate of 18, temperature 97.8 and oxygen sats 98% on room air. GENERAL: No acute distress, lying in bed, moving uncoordinated, fashion with slowed speech, yelling at staff, hostile and cursing. HEENT: Normocephalic, atraumatic. Pupils are equal, round and reactive to light. Extraocular movements are intact. Moist mucous membranes. No oropharyngeal erythema or exudate. Poor dentition. NECK: Trachea midline. No thyromegaly, no JVD, no carotid bruits. No supraclavicular, submandibular or cervical lymphadenopathy. RESPIRATORY: Clear to auscultation bilaterally. No wheezes, rhonchi or rales. CARDIOVASCULAR: Normal S1, S2, regular rate and rhythm. No murmurs, rubs, gallops, 2+ pulses in the upper and lower extremities bilaterally. GASTROINTESTINAL: Soft, nontender, nondistended, positive bowel sounds, no hepatosplenomegaly. No guarding or rebound. MUSCULOSKELETAL: 5/5 strength upper and lower extremities, although unstable on feet. No clubbing, cyanosis, edema. SKIN: Moist, warm, appropriate turgor. NEUROLOGIC: Cranial nerves II-XII intact. When standing unstable on feet, risk of fall. 2+ reflexes upper and lower extremities bilaterally. No hyperreflexia, no clonus. Normal [id number]. Negative Babinski. PSYCHIATRIC: Alert and oriented x4. The patient did endorse thoughts of hurting herself. Again denies that she had a plan of homicidal ideation. LABORATORY DATA: White count 7.8, H&H 13.5 and 40, platelet count 107,000, differential was normal. Renal panel: Sodium is 143.8, chloride 103, BUN 5, creatinine 1.3, anion gap 15, calcium, magnesium and phosphorus are 8.3, 1.5, 3.9. UA is significant for occasional bacteria. Ethanol level 407. IMAGING: None. EMERGENCY DEPARTMENT COURSE triaged to B pod, seen by myself and the R4 resident and discussed with the attending physician who agree with assessment and plan below. The patient with acute alcohol intoxication as well as vague reported suicidal ideation. The patient is aggressive in the emergency room, hostile to staff, got up and fell at one point, threat to risk of hurting herself and unable to take care of herself. I am concerned for patient's safety even after patient had sobered up to some extent. The patient placed on a psych hold. After being hydrated, labs are reassuring and vital signs stable. The patient is euvolemic and hemodynamically stable. It is deemed appropriate to transfer the patient to the [facility] for psych evaluation before being discharged home to ensure that it is safe for the patient to be allowed to go home with family. I spoke with PES physician who accepted transfer and agreed to see the patient for further management. PLAN: 1. The patient to follow up with outpatient primary physician from a medical standpoint and a therapist. *-*-* SC/ Cam Wei M.D. Ian Young M.D. EMERGENCY DEPARTMENT NOTE PAGE 1 of 1 documented in this encounter Miscellaneous Notes * Psych - Akash Beltran MD - 03/25/2011 7:25 AM EDT [facility] PATIENT NAME: MARLENI ROSALES MR #: [id number] DATE OF : 1960 PES PHYSICIAN: Akash Beltran M.D. ROOM #: PRIMARY: No Pcp No Pcp NURSING UNIT: ED REFERRING: Selected Referral Pt FC: S DICTATED BY: Akash Beltran M.D. ADMIT DATE: 03/23/2011 VISIT DATE: DISCHARGE DATE: PSYCHIATRIC EMERGENCY DISCHARGE *-*-* HISTORY OF PRESENT ILLNESS: This is a 50 -year-old white female with a history of major depression, alcohol dependence and Crohn's disease status post bowel resection who came to [facility] brought in by family for alcohol intoxication. She was brought in by family apparently blew a 0.4. She said she has been drinking more than a half a pint of vodka a day. She was grossly intoxicated when she arrived. When she sobered up she began telling ER staff that she did not want to go to detox and was thinking about hurting or killing herself. MODIFIERS- Alcohol, significant social stress including continuing expenses for her 's medical care (he has had a number of strokes and heart attacks recently), taking care of her elderly parents and taking care of a young child. ASSOCIATED SYMPTOMS: Depression, anxiety, vague suicidality with no plan, means or intent. The patient's energy, concentration and appetite have all been good especially when she is not drinking. She said she sleeps very well when she is not drinking as well. SEVERITY: The patient's alcoholism is severe. Her mood disorder is mild to moderate. LOCATION: Altered mental status. MOOD: Addiction. DURATION: Weeks to months. TIMING: Acute on chronic. PAST PSYCHIATRIC HISTORY: The patient said she has been depressed for quite some time but denied any kind of psychiatric treatments. She has never been a danger to herself or anyone else. She has no other psychiatric history. SUBSTANCE ABUSE: The patient has been an alcoholic of many years standing. She has graded herself as a functional alcoholic meaning that she is able to maintain a work life and family relationships. She tried cocaine about 20-25 years ago but never used it sense. Does not smoke or use other drugs. At one time she was addicted to opiate pain medicines that she started using when she would have Crohn's flare-ups. At this point she uses no opiates at all. The patient recently paid for a stent in rehabilitation but was seen here before she actually reports to the rehabilitation place. SOCIAL HISTORY: The patient [place] on [place] farm in [place], [place]. Her parents live nearby. Her has recently had some serious medical issues and was put in hospice care. The patient feels very much like she is holding the family together. 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 FAMILY HISTORY: None. PAST MEDICAL HISTORY: As above the patient has got- 1. Crohn's disease and has had numerous bowel resections and other fairly invasive treatments for such. 2. section in the past. 3. Alcoholic hepatitis- By her description she has trouble with absorption. 4. Small stroke- The patient said she may have had in the past. MEDICATIONS: None. REVIEW OF SYSTEMS: The patient suffers chronic diarrhea likely thanks to her Crohn's disease and subsequent surgeries. She is grossly tremulous. She has never had a seizure even in the context of alcohol withdrawal. She is not flushed or sweaty. She has no chest pain, shortness of breath, nausea, vomiting, fevers, chills, headache, heart disease or cancer. She said that she thought that she may have had a stroke in the past. PHYSICAL EXAMINATION: Vital signs- The patient's vitals have remained fairly stable throughout her clinical course even as she has sobered up. At last check her vitals were blood pressure 107/68, pulse 83, respirations 18, temperature 97.8. She has had small amounts of Ativan within the last couple of hours as she seemed uncomfortably tremulous though did not have other signs or symptoms of withdrawal. Gait and station normal. Abnormal movement, tone or strength- The patient as I mentioned has been a bit tremulous but otherwise has normal movement, tone and strength. MENTAL STATUS EXAMINATION: The patient is wearing a T-shirt and scrub bottoms. She makes eye contact. She is pleasant and engageable. She has an essentially normal habitus. Her speech is normal in rate, tone, volume and amount. Her language had no aphasia. Her mood was depressed. Her affect was full. Her thought processes were linear and goal directed. She was not loose in her associations. She did not have suicidal or homicidal plan, means or intent and said that the whole episode was misconstrued, that she never actually was suicidal but just felt like she would be likely to if she did not get help with her alcoholism. The patient did not respond to internal stimuli. She was grossly alert and oriented. Her memory, attention and concentration were all grossly intact. Her fund of knowledge was average to above. Her insight and judgement were poor and poor respectively as it relates to alcohol. LABORATORY DATA: The patient had an essentially normal CBC, renal, UA. Her tox is positive for benzodiazepines. IMAGING: None. OLD RECORDS: Reviewed. I reviewed PES and [facility] documentation. COLLATERAL: I spoke with the patient's mother who agreed what the patient really needed was a little bit of treatment for depression to help her avoid drinking. She also agreed that the patient really needed some rehabilitation and was pleased to come and get her. She did not think the patient was an imminent risk to self or others. FORMULATION: This patient seems to have a chronic low lying depression not uncommon especially in people with chronic illness that has become acutely worse in the setting of worsening stressors including economic stressors and the stresses of having numbers of family members ill or dying. This was made all the worse by her serious alcoholism. She has a number of risk factors for future dangerousness including serious alcoholism and chronic illness. She is at low to moderate risk for future dangerousness. PROTECTIVE FACTORS: The patient is pleasant and engageable, apparently takes good care of her son but for her alcoholism and whatever challenges that presents to her parenting. She also has family support and a steady income. PROGNOSIS: Guarded. DIAGNOSIS(ES): Nunez I. 1. Depression, not otherwise specified. 2. Alcohol withdrawal. 3. Alcohol dependence. Nunez II. Deferred. Nunez III. 1. Crohn's disease status post multiple abdominal surgeries including bowel resection. 2. Questionable history of cerebrovascular disease. Nunez IV. 1. Alcoholism. 2. Chronic medical issues. 3. Economic hardship. 4. Multiple family members with serious medical issues. Nunez V. 1. GAF 55. PROBLEMS OR FOCUS OF ATTENTION: As above. PES INTERVENTION: This patient was provided the structure of psychiatric emergency in [facility] to sober up. She was given small amounts of benzodiazepines in order to ease her tremor a bit. I gave her a full psychiatric examination and safety assessment done by myself and our team. I referred her back to the program that she said she had already paid money to in order to go to specialized rehabilitation services. I also prescribed her Venlafaxine 37.5 mg one tablet by mouth every day x 7 days, then 1 tablet by mouth twice daily #16 with no refills in order to help treat her anxiety and depression. As I am unsure of what her absorption status is and the true functionality of her gut I advised her to take it slow with a gradual titration as above. I let her know that she could return to [facility] for further questions or comments and that it was important to take her SSRI titration slowly and follow up. I gave her a number of follow up options including Dr. Jung Fernandez's clinic at [facility] and even [facility] here. I discussed the risks, benefits and alternatives of taking these medicine with her including worsening GI function, mood and anxiety, suicidality, etc. I gave her information from Wikipedia as well as Rx list regarding Venlafaxine. RATIONAL FOR NONADMISSION: This patient is low to moderate risk for future dangerousness. Most reassuringly she has not had a history of violence in the past and seems to lead a functional life but for her serious alcoholism. Now that she is clinically stable, sober and has a reasonable follow up plan her risk is mitigated even further and the reassuring collateral indicates to me that she is not an imminent risk at this time. She does very much need to go to rehab and quit alcohol forever, which she says she intends on doing. Thus, I see her as no imminent risk. DISCHARGE PLAN: As above. BILLING STATUS: Level 4. *-*-* Michael Akash Beltran M.D. c: Jung Fernandez M.D. PSYCHIATRIC EMERGENCY DISCHARGE PAGE 1 of 1 Michael Akash Beltran M.D. c: Jung Fernandez M.D. PSYCHIATRIC EMERGENCY DISCHARGE PAGE 1 of 1 documented in this encounter Plan of Treatment Not on file documented as of this encounter Visit Diagnoses Not on filedocumented in this encounter
--- OUTSIDE RECORDS SUMMARY | 2024-08-15 13:45 | XMS_ITS | Encounter Summary ---
Author Organization [facility] Address [address] [place] [address] Care Team Providers Care Ems Director Name Role Phone Damaso Black MD Primary Care Provider [phone] Source Comments This information has been disclosed [...] release of HIV test results or diagnoses. [id number] Reason for Visit * Reason Comments Medication Management Encounter Details Date Type Department Care Team (Late st Contact Info) Description 12/11/2019 Telephone [facility] G[facility]enterology at [place] [facility] [address] [facility], [address] [place] [phone] Vinnie Garcia MD [facility] [address] [place], [place] [id number] Medication Management Social History Tobacco Use Types Packs/Day Years Used Date Smoking Tobacco: Never Smokeless Tobacco: Never Comments No Sex and Gender Information Value Date Recorded Sex Assigned at Female 12/06/2019 8:50 AM EST Legal Sex Female 7:50 PM EST Gender Identity Female 12/06/2019 8:50 AM EST Sexual Orientation Not on file documented as of this encounter Miscellaneous Notes * Telephone Encounter - Kelli Olvera - 12/11/2019 2:21 PM EDT Pt asked to speak to MD regarding being prescribed valGANciclovir (VALCYTE) 450 mg tablet and afterresearch stated medicine for Aids patients.Pt asked to confirm this medicine and will hold until she receives a returned call documented in this encounter Plan of Treatment Not on file documented as of this encounter Visit Diagnoses Not on filedocumented in this encounter Care Teams Ems Director Relationship Specialty Start Date End Date Damaso Black MD [address] [place] [address] PCP - General Family Medicine 12/03/19 documented as of this encounter
--- OUTSIDE RECORDS SUMMARY | 2024-08-15 13:45 | XMS_ITS | Encounter Summary ---
Author Organization [facility] Address [address] [address] Care Team Providers Care Fleet Salesperson Name Role Phone Damaso Black MD Primary Care Provider [phone] Source Comments This information has been disclosed [...] release of HIV test results or diagnoses. [id number] Reason for Visit * Reason Comments Appointment Encounter Details Date Type Department Care Team (Late st Contact Info) Description 12/11/2019 Telephone [facility] Gastroenterology at [place] [facility] [address] [place] [address], [address] [place] [phone] Ashley Wen RN Appointment Social History Tobacco Use Types Packs/Day Years Used Date Smoking Tobacco: Never Smokeless Tobacco: Never Comments No Sex and Gender Information Value Date Recorded Sex Assigned at Female 12/06/2019 8:50 AM EST Legal Sex Female 7:50 PM EST Gender Identity Female 12/06/2019 8:50 AM EST Sexual Orientation Not on file documented as of this encounter Miscellaneous Notes * Telephone Encounter - Ashley Wen RN - 12/11/2019 5:35 PM EDT Call to patient. Scheduled with Dr. Campbell on 01/05 * Telephone Encounter - Ashley Wen RN - 12/11/2019 5:35 PM EDT ----- Message from Joana Garcia RN sent at 12/11/2019 12:36 PM EDT ----- Per message by Tanya is the concern. No need to stop by if you have finalized decision. ----- Message ----- From: Chloé Martínez MD Sent: 12/10/2019 12:54 PM EDT To: Joana Garcia RN This is for IBD clinic. Do we not have time in this clinic. We cannot take up est visits for RAVINDER orNPV. That is a hard rule. It comes from the systems programmer. New pts and RAVINDER pt will need to wait until there are available slots or they need to go to another GI provider. Chloé ----- Message ----- From: Joana Garcia RN Sent: 12/10/2019 12:19 PM EDT To: Chloé Martínez MD, [address]INE [address] Dr can I could book 12:40 slot on the or could you see patient since patient needs 2 weeks follow-up and all slots are full until March. I understand you are meeting with Tonia today. My apologies , for with all these NPV and RAVINDER it has take slots away for est and HDF. ANGE Bernard ----- Message ----- From: Nikky Morrell MA Sent: 12/10/2019 11:58 AM EDT To: Joana Garcia RN Referral says 2 week follow up. Where should I put them? March 02 is next HDF Nikky ----- Message ----- From: Alicia Matt MA Sent: 12/10/2019 11:34 AM EDT To: Nikky Morrell MA No he isn't. I found one yesterday that I had them reschedule. It wasn't this patient. Alicia ----- Message ----- From: Nikky Morrell MA Sent: 12/10/2019 11:29 AM EDT To: Alicia Matt MA Is Dr. Newell seeing HDF? I just came across one that was scheduled with him. I assume you check his schedules but wasn't sure if you noticed. Nikky documented in this encounter Plan of Treatment Not on file documented as of this encounter Visit Diagnoses Not on filedocumented in this encounter Care Teams Fleet Salesperson Relationship Specialty Start Date End Date Damaso Black [facility] [address] [facility] [address] P[facility] - General Family Medicine 12/03/19 documented as of this encounter
--- OUTSIDE RECORDS SUMMARY | 2024-08-15 13:45 | XMS_ITS | Encounter Summary ---
Author Organization [facility] Address [address] [place] [address] Care Team Providers Care Clinical Provider Trainer Name Role Phone Anand Merrill MD Primary Care Provider [phone] Source Comments This information has been disclosed [...] release of HIV test results or diagnoses. [id number] Reason for Visit * Reason Comments Abdominal Pain Diarrhea * Auth/Cert Specialty Diagnoses / Procedures Referred By Lata deal Referred To Contact Emergency Medicine [facility] Emergency Department [address] [place] [address] Phone: tel: fax: Referral ID Status Reason Start Date Expiration Date Visits Re quested Visits Authorized [id number] 1 1 Encounter Details Date Type Department Care Team (Late st Contact Info) Description 12/06/2019 11:19 AM EST - 12/06/2019 12:19 PM EST Surgery [facility] ENDOSCOPY [address] [place] [address] [phone] Maverick Campbell MD [address] [facility], [address] [place] [address] EGD WITH BIOPSY Surgery Details Date/Time Status Location OR Service Patient Class Case Class Case Type Trauma Case? 12/06/2019 11:19 AM Posted ENDOSCOPY E3 Gastroenterology Inpatient Combo Panel 1 Procedure LRB Anes Op Region Wound Class Comments EGD WITH BIOPSY N/A MAC (Monitor Ane sthesia Care) N/A COLONOSCOPY W/ OR W/O BIOPSY N/A MAC (Monitor Anesthesia Care) N/A Surgeon Surgeon Role Service Panel Maverick Campbell MD Primary Gastroentero logy 1 documented in this encounter Social History Tobacco Use Types Packs/Day Years Used Date Smoking Tobacco: Never Smokeless Tobacco: Never Comments No Sex and Gender Information Value Date Recorded Sex Assigned at Female 12/06/2019 8:50 AM EST Legal Sex Female 7:50 PM EST Gender Identity Female 12/06/2019 8:50 AM EST Sexual Orientation Not on file documented as of this encounter Last Filed Vital Signs Vital Sign Reading Time Taken Comments Blood Pressure 99/55 12/06/2019 9:03 AM EST Pulse 69 12/06/2019 9:03 AM EST Temperature 36.8 ??C (98.2 ??F) 12/06/2019 9:03 AM ES T Respiratory Rate 18 12/06/2019 9:03 AM EST Oxygen Saturation 96% 12/06/2019 9:03 AM EST Inhaled Oxygen Concentration 96% 12/06/2019 9 :03 AM EST Weight 52.8 kg (116 lb 6.4 oz) 12/04/2019 6:15 P M EST Height 157.5 cm (5' 2 ) 12/04/2019 6:15 PM EST Body Mass Index 21.29 12/04/2019 6:15 PM EST documented in this encounter Discharge Summaries * ITA Stock, GROUP PRACTICE PEDIATRICIAN - 12/07/2019 1:00 PM EST Health Field Engineer/Patient Support Tech Discharge Summary Patient name: Marleni Rosales Patient : 1960 Age: 59 y.o. Gender: female Patient emergency contact: Extended Emergency Contact Information Primary Emergency Contact: ELOY BREWER Mobile Relation: Son Secondary Emergency Contact: STEVEN LUEVANO Mobile Relation: Father Attending provider: No att. providers found Primary care physician: ANAND MERRILL MD The MD has indicated that the patient is ready for discharge. Marleni Roslaes will be transportedhome by her son. Transfer Mode/Level of Care: Family The plan has been reviewed: Patient/Family Informed of Discharge Plan: Yes Plan Reviewed With Patient, Family, or Significant Other: Yes Patient and or family are aware and in agreement with the discharge plan: Yes Plan reviewed with MD and other members of the health care team: Yes Care Plan Completed: Yes No further CM/SW needs. This plan has been reviewed with the multi-disciplinary team. ITA Stock, ALOK Inpatient Patient Support Tech GI Service [phone] * Marian Tate MD - 12/07/2019 12:15 PM EST Images from the original note were not included. [facility] Department of Internal Medicine Inpatient Discharge Summary Patient: Marleni Rosales CSN: [id number] Date of Admission: 12/03/2019 Date of Discharge: 12/07/2019 Attending Physician: No att. providers found Diagnoses Present on Admission Past Medical History: Diagnosis Date ??? Crohn's colitis (CMS Dx) ??? Fistula Discharge Diagnoses Active Hospital Problems Diagnosis Date Noted ??? Rectovaginal fistula [N82.3] 12/03/2019 ??? Crohn's disease (CMS Dx) [K50.90] 04/02/2015 Resolved Hospital Problems No resolved problems to display. Operations/Procedures Performed (include dates) Surgeries: Surgical/Procedural Cases on this Admission Case IDs Date Procedure Surgeon Location Status [id number] 12/05/19 EGD WITH COLONOSCOPY with GIF -- active Crohn's disease Antonietta Warner MD ENDOSCOPY Can [id number] 12/05/19 EGD WITH BIOPSY Chloé Martínez MD ENDOSCOPY Can [id number] 12/06/19 EGD WITH BIOPSY Maverick Campbell MD ENDOSCOPY Sheela Lines/Drains/Airways: Patient Lines/Drains/Airways Status Active Line / PIV Line None NHSN Device Days (11/07/2019 to 12/06/2019) Central line: 0 Urinary catheter: 0 Notable Imaging Studies: Results for orders placed during the hospital encounter of 12/03/19 CT Abdomen and Pelvis With IV contrast Narrative EXAM: CT ABDOMEN AND PELVIS WITH IV CONTRAST INDICATION: hx of crohn's, known hx of fistula with last scan 2014, worsening abdominal pain, TECHNIQUE: CT of the abdomen and pelvis was performed after the administration of intravenous contrast. Axial images were obtained with coronal and sagittal reconstructions. CONTRAST: 120 mL of IOHEXOL 350 MG IODINE/ML INTRAVENOUS SOLUTION administered intravenously FIELD OF VIEW: 36 cm COMPARISON: 08/22/2007 FINDINGS: Lower Chest: No focal consolidation or layering pleural effusions. Liver: No focal hepatic lesions. Biliary Tree: No intra or extra-hepatic biliary ductal dilatation. Cholelithiasis without CT evidence of cholecystitis. Spleen: Normal Pancreas: Normal Adrenal Glands: Normal Kidneys/Ureters/Bladder: The kidneys enhance symmetrically. There is no hydronephrosis or hydroureter. The urinary bladder is unremarkable. Gastrointestinal Tract: Surgical suture line along the colon in the lower abdomen. There is no evidence of obstruction. There is wall thickening and mucosal hyperenhancement of the rectum and proximal sigmoid colon. A fistulous tract is seen along the rectum/proximal sigmoid colon with extension through the soft tissues of the left buttock. Additional fistulous tract is seen along the rectum and vagina. Lymphatics: No abdominal or pelvic lymph nodes are enlarged by size criteria. Vasculature: Minimal atherosclerosis. Peritoneum/Retroperitoneum: No free fluid, free air, or loculated fluid collections. Fat stranding is seen along the proximal sigmoid colon and rectum. Abdominal Wall/Soft Tissues: Unremarkable. Genital Structures: Air is seen in the uterus consistent with rectovaginal fistula. Osseous Structures: No acute osseous abnormalities or suspicious osseous lesions. Other Procedures: 1. EGD- Esophageal candidiasis 2. Colonoscopy- showing severe crohn's, score 17. Ileitis and colitis. Consulting Services (include reason) 1. None Allergies Sulfa (Sulfonamide Antibiotics) Discharge Medications Medication List TAKE these medications, which are NEW Quantity/Refills cholestyramine-aspartame 4 gram Pwpk packet Commonly known as: PREVALITE, QUESTRAN LIGHT Take 1 packet (4 g total) by mouth 2 times a day for 30 days. Quantity: 60 packet Refills: 0 ciprofloxacin HCl 500 MG tablet Commonly known as: CIPRO Take 1 tablet (500 mg total) by mouth every 12 hours for 30 days. Quantity: 60 tablet Refills: 0 fluconazole 200 MG tablet Commonly known as: DIFLUCAN Take 1 tablet (200 mg total) by mouth daily for 19 days. Start taking on: December 08, 2019 Quantity: 19 tablet Refills: 0 hydrocortisone 5 MG tablet Commonly known as: CORTEF Take 5 tablets for 5 days followed by 3 tablets for 7 days followed by 1 tablet for 7 days. Quantity: 53 tablet Refills: 0 * metroNIDAZOLE 500 MG tablet Commonly known as: FLAGYL Take 1 tablet (500 mg total) by mouth every 8 hours for 30 days. Quantity: 90 tablet Refills: 0 * metroNIDAZOLE 0.75 % cream Commonly known as: METROCREAM Apply topically 2 times a day. Quantity: 45 g Refills: 0 * This list has 2 medication(s) that are the same as other medications prescribed for you. Read thedirections carefully, and ask your doctor or other care provider to review them with you. TAKE these medication, which have CHANGED Quantity/Refills * traMADoL 50 mg tablet Commonly known as: ULTRAM What changed: Another medication with the same name was added. Make sure you understand how and when to take each. Refills: 0 * traMADoL 50 mg tablet Commonly known as: ULTRAM Take 1 tablet (50 mg total) by mouth every 6 hours as needed for up to 7 days. What changed: You were already taking a medication with the same name, and this prescription was added. Make sure you understand how and when to take each. Quantity: 28 tablet Refills: 0 * This list has 2 medication(s) that are the same as other medications prescribed for you. Read thedirections carefully, and ask your doctor or other care provider to review them with you. TAKE these medications, which you were ALREADY TAKING Quantity/Refills pantoprazole 40 MG tablet Commonly known as: PROTONIX Refills: 0 STOP taking these medications diphenoxylate-atropine 2.5-0.025 mg per tablet Commonly known as: LOMOTIL predniSONE 20 MG tablet Commonly known as: DELTASONE sucralfate 100 mg/mL suspension Commonly known as: CARAFATE SUCRETS SORE THROAT MM Where to Get Your Medications These medications were sent to [facility] [address] [place] [address] [address], [place] [address] ?? cholestyramine-aspartame 4 gram Pwpk packet ?? ciprofloxacin HCl 500 MG tablet ?? fluconazole 200 MG tablet ?? hydrocortisone 5 MG tablet ?? metroNIDAZOLE 0.75 % cream ?? metroNIDAZOLE 500 MG tablet You can get these medications from any pharmacy Bring a paper prescription for each of these medications ?? traMADoL 50 mg tablet Reason for Admission Marleni Rosales is a 59 y.o. female with PMH of crohn's who presented with Crohn's disease, anxiety, and depression who presented with diarrhea. Hospital Course By Problem #Crohns flare Patient presented with increased diarrhea and abdominal pain over the past few months. She has alsobeen having stool in her vagina. She has a history of crohn's s/p colostomy and ileostomy with reversal, but has not had any medications for crohn's. She saw an outpatient GI physician at [facility] who recommended colonoscopy and started her on Prednisone. She denied any relief with prednisone and was transitioned to hydrocortisone 25 mg PO while here with a plan to taper her steroids. She had colonoscopy showing severe crohn's with endoscopic score of 17 with ileitis and colitis. She had EGD showing 3 gastric ulcers and esophageal candidiasis. She was started on Cholestyramine 4 mg BID to control her diarrhea and she noted significant improvement in her diarrhea. Colorectal surgery forpatients fistulas, one perirectal fistula and one colovaginal fistula. They recommended medical management of her crohn's and then re-evaluate the need for surgery after she gets medical therapy. Shewill be discharged with Cholestyramine for her diarrhea and will follow up with a GI physician within 2 weeks to discuss starting a biologic to better manage her symptoms. #Esophageal Candidiasis #Ulcers EGD showed candidiasis diffusely in the middle third of the esophagus. Patient did have complaints of soreness when she swallowed, but reports that this started after she began taking sucralfate. Shewas started on Fluconazole and will have get fluconazole 200 mg PO daily to complete at 21 day course with the end date being 12/26/19. She will follow up with GI physician. Condition on Discharge 1. Functional Status: Normal 2. Mental Status: Normal 3. Diet / Tube Feeding / TPN: Diet Orders Diet regular starting at 12/05 1113 As listed above 4. Respiratory / Lines & Tubes / Wounds: None required 5. Discharge Physical Exam: BP 118/70 (BP Location: Left arm, Patient Position: Lying) Pulse 75 Temp 98 ??F (36.7 ??C) (Oral) Resp 18 Ht 5' 2 (1.575 m) Wt 116 lb 6.4 oz (52.8 kg) SpO2 98% BMI 21.29 kg/m?? Physical Exam Constitutional: General: She is not in acute distress. Appearance: She is not toxic-appearing. HENT: Mouth/Throat: Mouth: Mucous membranes are moist. Pharynx: Oropharynx is clear. No oropharyngeal exudate. Eyes: General: No scleral icterus. Cardiovascular: Rate and Rhythm: Normal rate and regular rhythm. Heart sounds: No murmur. Pulmonary: Effort: No respiratory distress. Breath sounds: Normal breath sounds. Abdominal: General: Abdomen is flat. Palpations: Abdomen is soft. Neurological: General: No focal deficit present. Mental Status: She is alert. Core Measure Documentation (As Applicable) Most Recent Wt: Weight: 116 lb 6.4 oz (52.8 kg) Disposition Home independent Follow-Up Appointments Follow up with GI within 2 weeks of discharge Patient Instructions / Follow-Up Items for Receiving Physician Please assure that her symptoms of painful swallowing resolves after taking fluconazole Signed: MARIAN TATE MD 12/07/2019, 12:16 PM madeline, but after running the discharge navigator (particularly the med list) Cosigned by Malina Paul MD at 12/08/2019 12:37 AM EST Associated attestation - Malina Paul MD - 12/08/2019 12:37 AM EST I saw and evaluated the patient. I agree with the findings and the plan of care as documented in the resident's note. * West Stevenson MD - 12/07/2019 9:48 AM EST Subspecialty Follow-up Appointment Chart Note Service: Gastroenterology Subspecialty Follow-up Disposition: The patient requires subspecialty follow-up as noted below: Note: This information is for [facility] Scheduling use only. It is not the responsibility of the primaryinpatient service to schedule this appointment. 1. Visit type:[facility] 2. Name of provider to schedule with: any available 3. Timing: The appointment should be scheduled in 2 weeks. 4. Location: [facility] 5. Ok to overbook if there are no open appointment slots?: No 6. Reason for follow up: Crohn's disease 7. Comments: needs to establish with us for inflammatory bowel disease 8. In case of scheduling conflict, contact Pager/Cell phone number: WEST STEVENSON MD 12/07/2019 9:47 AM documented in this encounter Discharge Instructions * Discharge Instructions* Marian Tate MD - 12/07/2019 11:45 AM EST Marleni Rosales, Here are your hospital discharge instructions: --> You were hospitalized for: Crohn's flare. --> New medications: 1) Cholestyramine-aspartame 4 gram by mouth twice daily to control diarrhea 2) Ciprofloxacin 500 mg by mouth twice a day 3) Fluconazole 200 mg by mouth daily. Last dose will be on 12/26/19 4) Metronidazole 500 mg by mouth 3 times a day. 5) Hydrocortisone 25 mg by mouth for 5 more days followed by Hydrocortisone 15 mg by mouth for 7 more days followed by hydrocortisone 5 mg by mouth for 7 days. --> Other Instructions: 1) Please follow up with gastroenterology (GI) within 2 weeks of discharge. Recent Lab Values for you and your doctors: Recent Labs 12/06/19 1319 NA 138 K 4.0 CL 102 CO2 28 BUN 6* CREATININE 0.95 GLUCOSE 96 CALCIUM 9.4 MG 2.0 PHOS 3.1 Recent Labs 12/06/19 1319 WBC 14.5* HGB 12.5 HCT 40.4 PLT 287 documented in this encounter Medications at Time of Discharge hydrocortisone (CORTEF) 5 MG tablet Take 5 tablets for 5 days followed by 3 tablets for 7 days followed by 1 tablet for 7 days. 53 tablet 12/07/2019 metroNIDAZOLE (METROCREAM) 0.75 % cream Apply topically 2 times a day. 45 g 12/07/2019 pantoprazole (PROTONIX) 40 MG tablet 10/18/2019 traMADoL (ULTRAM) 50 mg tablet 11/15/2019 cholestyramine-a spartame (PREVALITE, QUESTRAN LIGHT) 4 gram PwPk packet Take 1 packet (4 g total) by mouth 2 times a day for 30 days. 60 packet 12/07/2019 0 ciprofloxacin HCl (CIPRO) 500 MG tablet Take 1 tablet (500 mg total) by mouth every 12 hours for 30 days. 60 tablet 12/07/2019 0 fluconazole (DIFLUCAN) 200 MG tablet Take 1 tablet (200 mg total) by mouth daily for 19 days. 19 tablet 12/08/2019 0 metroNIDAZOLE (FLAGYL) 500 MG tablet Take 1 tablet (500 mg total) by mouth every 8 hours for 30 days. 90 tablet 12/07/2019 0 traMADoL (ULTRAM) 50 mg tabletIndication s:Crohn's disease of small intestine with fistula (CMS-HCC) Take 1 tablet (50 mg total) by mouth every 6 hours as needed for up to 7 days. 28 tablet 12/07/2019 0 documented as of this encounter Progress Notes * Marian Tate MD - 12/07/2019 8:58 AM EST Department of Internal Medicine Daily Progress Note Chief Complaint / Reason for Follow-Up Marleni Rosales is a 59 y.o. female on hospital day 4. The principal reason for today's follow upvisit is Rectovaginal fistula. Interval History / Subjective Mrs. Rosales is a 59 year old female with PMHx crohn's disease and anxiety/depression who presented to the ED for worsening diarrhea. She was started on morphine for pain control and cholestyramine for diarrhea with improvement in her pain and diarrhea. Patient had EGD showing dory esophagitis and colonoscopy showing severe crohn's with ileitis andcolitis. She reports that she feels better today. She had some diarrhea overnight, but it improved this morning. Her pain is tolerable after switching from IV Morphine to Tramadol 50 mg PO q6h PRN. Review of Systems (Focused) Review of Systems Constitutional: Negative for chills and fever. HENT: Negative for congestion. Respiratory: Negative for cough, shortness of breath and wheezing. Cardiovascular: Negative for chest pain and leg swelling. Gastrointestinal: Negative for abdominal pain, diarrhea, nausea and vomiting. Musculoskeletal: Negative for back pain and myalgias. Neurological: Negative for dizziness and headaches. Psychiatric/Behavioral: Negative for depression. The patient does not have insomnia. Medications Scheduled Meds: ??? cholestyramine-aspartame 4 g Oral Daily 0900 ??? ciprofloxacin HCl 500 mg Oral 2 times per day ??? fluconazole 200 mg Oral Daily 0900 ??? heparin 5,000 Units Subcutaneous 3 times per day ??? hydrocortisone 25 mg Oral Daily 0900 ??? metroNIDAZOLE 500 mg Oral 3 times per day ??? metroNIDAZOLE Topical BID ??? pantoprazole 40 mg Oral Daily 0900 ??? sodium chloride 10 mL Intravenous QS Continuous Infusions: ??? lactated Ringers 100 mL/hr (12/06/19 0634) PRN Meds: acetaminophen, ondansetron, proCHLORPERazine, traMADol Vital Signs Temp: [97.9 ??F (36.6 ??C)-98.9 ??F (37.2 ??C)] 98 ??F (36.7 ??C) Heart Rate: [58-87] 75 Resp: [18-20] 18 BP: (90-127)/(53-90) 118/70 Intake/Output Summary (Last 24 hours) at 12/07/2019 0858 Last data filed at 12/06/20192055 Gross per 24 hour Intake 990 ml Output -- Net 990 ml Physical Exam Physical Exam Constitutional: General: She is not in acute distress. Comments: Anxious HENT: Mouth/Throat: Mouth: Mucous membranes are moist. Pharynx: No oropharyngeal exudate or posterior oropharyngeal erythema. Eyes: General: No scleral icterus. Pupils: Pupils are equal, round, and reactive to light. Cardiovascular: Rate and Rhythm: Normal rate and regular rhythm. Pulses: Normal pulses. Pulmonary: Effort: Pulmonary effort is normal. No respiratory distress. Breath sounds: Normal breath sounds. No wheezing. Abdominal: General: Abdomen is flat. Bowel sounds are normal. Palpations: Abdomen is soft. Tenderness: There is no tenderness. Skin: General: Skin is warm and dry. Neurological: General: No focal deficit present. Mental Status: She is alert and oriented to person, place, and time. Laboratory Data CBC 12/06/2019 \ 12.5 / 14.5 \ / 287 / \ / 40.4 \ Differential 12/03/2019 N 94.0 L 3.4 M 2.5 E 0.0 B 0.1 Renal 12/06/2019 138 102 6 / ___ __ / 96 \ 4.0 28 0.95 \ Ca 9.4 (12/06/2019) Mg 2.0 (12/06/2019) Phos 3.1 (12/06/2019) Lipids No results found for: CHOLTOT, TRIG, HDL, LDL LFTs 12/03/2019 \ 0.4 / \ 0.12 / 14 \ / 45 / \ / 77 \ PT/INR/PTT - 12/04/2019 PT 15.6 INR 1.2 PTT [address] Abdomen and Pelvis With IV contrast Final Result IMPRESSION: 1. Wall thickening and mucosal hyperenhancement of the rectum and proximal sigmoid colon with associated fat stranding consistent with active Crohn's disease. 2. Findings suspicious for rectovaginal fistula with free air seen in the uterus. 3. 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 4. Cholelithiasis. Approved by Akash King MD on 12/03/2019 5:55 PM EST I have personally reviewed the images and I agree with this report. Report Verified by: Andrés Kline MD at 12/03/2019 6:25 PM EST Assessment & Plan Marleni Rosales is a 59 y.o. female on HD# 4 with Rectovaginal fistula. The medical issues being addressed in today's encounter are as follows: Principal Problem: Rectovaginal fistula Active Problems: Crohn's disease ([facility] Dx) #Crohn's disease Patient is presenting with active crohn's disease complicated by rectovaginal fistula and and anal fistula. She has had multiple surgeries including colostomy and ileostomy s/p reversal about 20 years ago. She has not been on any medication for crohn's over the past 20 years. Over the past few months she has had increased diarrhea and noticed stool draining from her vagina. She was evaluated by GI at [facility] who recommended colonoscopy, but patient refused. Hep Bs Ag was non reactive at OSH on 11/15/19. Quantiferon TB gold was negative at OSH on 11/15/19 as well. Colorectal surgery was consulted for fistulas and suggest medical management of crohn's disease. Colonoscopy showed severe crohn's (Endoscopic score: 17) with colitis and ileitis. - Cholestyramine 4 grams BID for diarrhea. - Continue Cirpo and Flagyl - Outpatient follow up with GI to start biologic. #History peptic ulcers Patient had EGD in 2016 showing ulcers in the antrum, stomach body, second part of the duodenum, and upper third of the GI tract. She did not follow with GI after this procedure, but was supposed to be taking a PPI. She was evaluated by GI at [facility] 11/2019 who placed her on sucralfate which she reports caused her to have trouble with swallowing. She is asymptomatic and denies any GERD symptoms. EGD on 12/06/2019 showed 3 non bleeding linear gastric ulcers with clean base (Jan class III) - Continue Pantoprazole 40 mg PO daily. #Esophageal candidiasis EGD showed diffuse candidiasis found in the middle third of the esophagus. Loaded with Fluconazole 400 mg PO on 12/06/19. - Continue Fluconazole 200 mg PO daily for 21 days. End date 12/26/19. Fluids: : LR 100 mL/hour Electrolyte: Replace PRN Lines: PIV Nutrition: Diet Orders Diet regular starting at 12/05 1113 GI/ ppx: Protonix 40 mg PO daily DVT ppx: Heparin subQ Code Status: Full Code Signed: MARIAN TATE MD 12/07/2019, 8:58 AM Cosigned by Malina Paul MD at 12/07/2019 6:44 PM EST Associated attestation - Malina Paul MD - 12/07/2019 6:44 PM EST I saw and evaluated the patient. I agree with the findings and the plan of care as documented in the resident's note. * Yamileth Manzanares MD - 12/06/2019 7:47 AM EST Department of Internal Medicine Daily Progress Note Chief Complaint / Reason for Follow-Up Marleni Rosales is a 59 y.o. female on hospital day 3. The principal reason for today's follow upvisit is Rectovaginal fistula. Interval History / Subjective Mrs. Rosales is a 59 year old female with PMHx crohn's disease and anxiety/depression who presented to the ED for worsening diarrhea. She was started on morphine for pain control and cholestyramine for diarrhea with improvement in her pain and diarrhea. States tolerated prep overnight though had some abdominal pain and some nausea. Decreased vaginal drainage after prep. Having some abdominal pain related to fistula. Otherwise states is hungry and anxious to eat. Review of Systems (Focused) Review of Systems Constitutional: Negative for chills and fever. HENT: Negative for congestion. Respiratory: Negative for cough, shortness of breath and wheezing. Cardiovascular: Negative for chest pain and leg swelling. Gastrointestinal: Positive for abdominal pain. Negative for diarrhea, nausea and vomiting. Musculoskeletal: Negative for back pain and myalgias. Neurological: Negative for dizziness and headaches. Psychiatric/Behavioral: Negative for depression. The patient does not have insomnia. Medications Scheduled Meds: ??? ciprofloxacin HCl 500 mg Oral 2 times per day ??? heparin 5,000 Units Subcutaneous 3 times per day ??? hydrocortisone 25 mg Oral Daily 0900 ??? metroNIDAZOLE 500 mg Oral 3 times per day ??? pantoprazole 40 mg Oral Daily 0900 ??? sodium chloride 10 mL Intravenous QS Continuous Infusions: ??? lactated Ringers 100 mL/hr (12/06/19 0634) PRN Meds: acetaminophen, morphine, ondansetron, proCHLORPERazine Vital Signs Temp: [97.8 ??F (36.6 ??C)-99.3 ??F (37.4 ??C)] 98.9 ??F (37.2 ??C) Heart Rate: [63-77] 63 Resp: [18] 18 BP: (98-157)/(60-73) 115/60 Intake/Output Summary (Last 24 hours) at 12/06/2019 0752 Last data filed at 12/06/2019 0634 Gross per 24 hour Intake 2903 ml Output -- Net 2903 ml Physical Exam Physical Exam Constitutional: General: She is not in acute distress. Comments: Anxious HENT: Mouth/Throat: Mouth: Mucous membranes are moist. Pharynx: No oropharyngeal exudate or posterior oropharyngeal erythema. Eyes: General: No scleral icterus. Pupils: Pupils are equal, round, and reactive to light. Cardiovascular: Rate and Rhythm: Normal rate and regular rhythm. Pulses: Normal pulses. Pulmonary: Effort: Pulmonary effort is normal. No respiratory distress. Breath sounds: Normal breath sounds. No wheezing. Abdominal: General: Abdomen is flat. Bowel sounds are normal. Palpations: Abdomen is soft. Tenderness: There is tenderness (diffusely). Comments: Multiple scars from prior surgeries and trochar port sites Musculoskeletal: General: No swelling or tenderness. Skin: General: Skin is warm and dry. Coloration: Skin is not jaundiced or pale. Findings: No erythema. Neurological: General: No focal deficit present. Mental Status: She is alert and oriented to person, place, and time. Laboratory Data CBC 12/04/2019 \ 10.4 / 19.7 \ / 369 / \ / 33.6 \ Differential 12/03/2019 N 94.0 L 3.4 M 2.5 E 0.0 B 0.1 Renal 12/04/2019 137 106 38 / ___ __ / 88 \ 4.6 26 0.86 \ Ca 9.0 (12/04/2019) Mg 1.8 (12/04/2019) Phos 2.8 (12/04/2019) Lipids No results found for: CHOLTOT, TRIG, HDL, LDL LFTs 12/03/2019 \ 0.4 / \ 0.12 / 14 \ / 45 / \ / 77 \ PT/INR/PTT - 12/04/2019 PT 15.6 INR 1.2 PTT 24[address] Abdomen and Pelvis With IV contrast Final Result IMPRESSION: 1. Wall thickening and mucosal hyperenhancement of the rectum and proximal sigmoid colon with associated fat stranding consistent with active Crohn's disease. 2. Findings suspicious for rectovaginal fistula with free air seen in the uterus. 3. 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 4. Cholelithiasis. Approved by Akash King MD on 12/03/2019 5:55 PM EST I have personally reviewed the images and I agree with this report. Report Verified by: Andrés Kline MD at 12/03/2019 6:25 PM EST Assessment & Plan Marleni Rosales is a 59 y.o. female on HD# 3 with Rectovaginal fistula. The medical issues being addressed in today's encounter are as follows: Principal Problem: Rectovaginal fistula Active Problems: Crohn's disease ([facility] Dx) #Crohn's disease Patient is presenting with active crohn's disease complicated by rectovaginal fistula and and anal fistula. She has had multiple surgeries including colostomy and ileostomy s/p reversal about 20 years ago. She has not been on any medication for crohn's over the past 20 years. Over the past few months she has had increased diarrhea and noticed stool draining from her vagina. She was evaluated by GI at [facility] who recommended colonoscopy, but patient refused. Hep Bs Ag was non reactive at OSH on 11/15/19. Quantiferon TB gold was negative at OSH on 11/15/19 as well. Colorectal surgery was consulted for fistulas and suggest medical management of crohn's disease. - Had Mag citrate overnight and states bowel movements clear. - Will restart Cholestyramine 4 grams qday for diarrhea after scope - Morphine 4 mg IV q4H PRN for pain. - Cirpo and Flagyl ordered for crohn's - Continue steroid taper. On hydrocortisone 25mg daily currently. - Colonoscopy today demonstrated marked disease related to Crohn's. #History peptic ulcers Patient had EGD in 2016 showing ulcers in the antrum, stomach body, second part of the duodenum, and upper third of the GI tract. She did not follow with GI after this procedure, but was supposed to be taking a PPI. She was evaluated by GI at [facility] 11/2019 who placed her on sucralfate which she reports caused her to have trouble with swallowing. She is asymptomatic and denies any GERD symptoms. - EGD today demonstrated a single gastric ulcer which was biopsied. Her esohagus demonstrated signsof dory esophagitis. #Dory Esophagitis EGD performed on 12/05 demonstrated dory esophagitis. Was loaded with fluconazole 400mg, then started on fluconazole 200mg daily the following day for a total course of 21 days (EOT 12/26/19). Fluids: : LR 100 mL/hour Electrolyte: Replace PRN Lines: PIV Nutrition: Diet Orders Diet NPO past midnight Except for: for procedure starting at 12/04 7619 GI/ ppx: Protonix 40 mg PO daily DVT ppx: Heparin subQ Code Status: [facility]-A Signed: YAMILETH BIRD MD 12/06/2019, 7:47 AM Cosigned by Keenan Reeves MD at 12/09/2019 8:14 AM EDT Associated attestation - Keenan Reeves MD - 12/09/2019 8:14 AM EDT Patient seen on MondayDecember 05. Patient has both colonoscopy and EGD today. Colonoscopy shows extensive, active disease. EGD shows Dory esophagitis and a single gastric ulcer. Started on fluconazole and a PPI. Willl resume cholestyramine. Next step for Crohns trreratment is an anti-TNF. I saw and examined the patient. I discussed with the resident or fellow and agree with Dr. Bird's findings and plan as documented in the note. Keenan Reeves MD * Marian Tate MD - 12/05/2019 7:58 AM EST Department of Internal Medicine Daily Progress Note Chief Complaint / Reason for Follow-Up Marleni Rosales is a 59 y.o. female on hospital day 2. The principal reason for today's follow upvisit is Rectovaginal fistula. Interval History / Subjective Mrs. Rosales is a 59 year old female with PMHx crohn's disease and anxiety/depression who presented to the ED for worsening diarrhea. She was started on morphine for pain control and cholestyramine for diarrhea with improvement in her pain and diarrhea. Patient did not tolerate her prep for colonoscopy overnight. She drank half a bottle of the mag citrate, but began to have abdominal pain and bloating. She reports that her diarrhea improved after starting Cholestyramine. Review of Systems (Focused) Review of Systems Constitutional: Negative for chills and fever. HENT: Negative for congestion. Respiratory: Negative for cough, shortness of breath and wheezing. Cardiovascular: Negative for chest pain and leg swelling. Gastrointestinal: Negative for abdominal pain, diarrhea, nausea and vomiting. Musculoskeletal: Negative for back pain and myalgias. Neurological: Negative for dizziness and headaches. Psychiatric/Behavioral: Negative for depression. The patient does not have insomnia. Medications Scheduled Meds: ??? cholestyramine-aspartame 4 g Oral BID ??? ciprofloxacin HCl 500 mg Oral 2 times per day ??? heparin 5,000 Units Subcutaneous 3 times per day ??? hydrocortisone 25 mg Oral Daily 0900 ??? metroNIDAZOLE 500 mg Oral 3 times per day ??? pantoprazole 40 mg Oral Daily 0900 ??? sodium chloride 10 mL Intravenous QS Continuous Infusions: ??? lactated Ringers 100 mL/hr (12/05/19 0019) PRN Meds: acetaminophen, [DISCONTINUED] morphine OR morphine, ondansetron Vital Signs Temp: [97.5 ??F (36.4 ??C)-98.2 ??F (36.8 ??C)] 97.5 ??F (36.4 ??C) Heart Rate: [60-84] 62 Resp: [11-18] 16 BP: (101-135)/(56-77) 107/63 Intake/Output Summary (Last 24 hours) at 12/05/2019 0758 Last data filed at 12/05/2019 0600 Gross per 24 hour Intake 1086 ml Output 0 ml Net 1086 ml Physical Exam Physical Exam Constitutional: General: She is not in acute distress. Comments: Anxious HENT: Mouth/Throat: Mouth: Mucous membranes are moist. Pharynx: No oropharyngeal exudate or posterior oropharyngeal erythema. Eyes: General: No scleral icterus. Pupils: Pupils are equal, round, and reactive to light. Cardiovascular: Rate and Rhythm: Normal rate and regular rhythm. Pulses: Normal pulses. Pulmonary: Effort: Pulmonary effort is normal. No respiratory distress. Breath sounds: Normal breath sounds. No wheezing. Abdominal: General: Abdomen is flat. Bowel sounds are normal. Palpations: Abdomen is soft. Tenderness: There is no tenderness. Skin: General: Skin is warm and dry. Neurological: General: No focal deficit present. Mental Status: She is alert and oriented to person, place, and time. Laboratory Data CBC 12/04/2019 \ 10.4 / 19.7 \ / 369 / \ / 33.6 \ Differential 12/03/2019 N 94.0 L 3.4 M 2.5 E 0.0 B 0.1 Renal 12/04/2019 137 106 38 / ___ __ / 88 \ 4.6 26 0.86 \ Ca 9.0 (12/04/2019) Mg 1.8 (12/04/2019) Phos 2.8 (12/04/2019) Lipids No results found for: CHOLTOT, TRIG, HDL, LDL LFTs 12/03/2019 \ 0.4 / \ 0.12 / 14 \ / 45 / \ / 77 \ PT/INR/PTT - 12/04/2019 PT 15.6 INR 1.2 PTT 24.[address] Abdomen and Pelvis With IV contrast Final Result IMPRESSION: 1. Wall thickening and mucosal hyperenhancement of the rectum and proximal sigmoid colon with associated fat stranding consistent with active Crohn's disease. 2. Findings suspicious for rectovaginal fistula with free air seen in the uterus. 3. 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 4. Cholelithiasis. Approved by Akash King MD on 12/03/2019 5:55 PM EST I have personally reviewed the images and I agree with this report. Report Verified by: Andrés Kline MD at 12/03/2019 6:25 PM EST Assessment & Plan Marleni Rosales is a 59 y.o. female on HD# 2 with Rectovaginal fistula. The medical issues being addressed in today's encounter are as follows: Principal Problem: Rectovaginal fistula Active Problems: Crohn's disease ([facility] Dx) #Crohn's disease Patient is presenting with active crohn's disease complicated by rectovaginal fistula and and anal fistula. She has had multiple surgeries including colostomy and ileostomy s/p reversal about 20 years ago. She has not been on any medication for crohn's over the past 20 years. Over the past few months she has had increased diarrhea and noticed stool draining from her vagina. She was evaluated by GI at [facility] who recommended colonoscopy, but patient refused. Hep Bs Ag was non reactive at OSH on 11/15/19. Quantiferon TB gold was negative at OSH on 11/15/19 as well. Colorectal surgery was consulted for fistulas and suggest medical management of crohn's disease. - EGD/Colonoscopy in the AM, Will bowel prep with magnesium citrate split dose. - Cholestyramine 4 grams BID for diarrhea. - Morphine 4 mg IV q4H PRN for pain. - Cirpo and Flagyl ordered for crohn's #History peptic ulcers Patient had EGD in 2015 showing ulcers in the antrum, stomach body, second part of the duodenum, and upper third of the GI tract. She did not follow with GI after this procedure, but was supposed to be taking a PPI. She was evaluated by GI at [facility] 11/2019 who placed her on sucralfate which she reports caused her to have trouble with swallowing. She is asymptomatic and denies any GERD symptoms. - EGD to evaluate ulcers. Will likely get biopsy to evaluate for crohn's involvement of the upper GI tract Fluids: : LR 100 mL/hour Electrolyte: Replace PRN Lines: PIV Nutrition: Diet Orders Diet clear liquid Clear Liquid starting at 12/04 0751 GI/ ppx: Protonix 40 mg PO daily DVT ppx: Heparin subQ Code [facility]: [facility] Signed: MARIAN TATE MD 12/05/2019, 7:58 AM Cosigned by Keenan Reeves MD at 12/05/2019 1:14 PM EST Associated attestation - Keenan Reeves MD - 12/05/2019 1:14 PM EST Diarrhea markedly reduced yesterday after starting cholestyramine. No BMs all night long. She is not adequately prepped for colonoscopy so will delay until tomorrow along with EGD to assess severity and extent of Crohns disease. I saw and examined the patient. I discussed with the resident or fellow and agree with 's findings and plan as documented in the note. Keenan Reeves MD * Angel Owens MD - 12/03/2019 3:06 PM EST ED Attending Attestation Note Date of service: 12/03/2019 This patient was seen by the resident physician. I have seen and examined the patient, agree with the workup, evaluation, management and diagnosis. The care plan has been discussed and I concur. My assessment reveals a 59 y.o. female with history of Crohn's and rectovaginal fistula sites post multiple surgeries presenting for second opinion. She has been following with [facility] and apparently they are requiring her to get a colonoscopy before starting biologic. She was told to get a second opinion. She called the GI doctor's appointment could make an appointment until early December and told her to come the emergency room to see if she can get seen sooner. Patient reports that her pain is been essentially unchanged over the last several months. She reports lots of diarrhea leakingout of her vagina. On exam she has a soft benign abdomen with minimal lower abdominal tenderness, no rebound or guarding. Angel Owens MD 12/03/2019 documented in this encounter H&P Notes * Vinnie Garcia MD - 12/06/2019 10:04 AM EST [facility] PRE-SEDATION ASSESSMENT, HISTORY & PHYSICAL Date: 12/06/2019 Marleni Rosales is a 59 y.o. year old female Pre-Procedure Diagnosis/Procedure Indication: Crohn's disease activity Planned Procedure: EGD/ Colonoscopy NPO for solids >8 hours, NPO for liquids >8 hours Past Medical History Past Medical History: Diagnosis Date ??? Crohn's colitis (CMS Dx) ??? Fistula Difficult intubation Unanswered Patient Active Problem List Diagnosis ??? Rectovaginal fistula ??? Crohn's disease (CMS Dx) Past Surgical History History reviewed. No pertinent surgical history. Medications Prior to Admission medications Medication Sig Start Date End Date Taking? Authorizing Provider diphenoxylate-atropine (LOMOTIL) 2.5-0.025 mg per tablet 11/30/19 Historical Provider, dyclonine HCl (SUCRETS SORE THROAT MM) oliverclonine Historical Provider, pantoprazole (PROTONIX) 40 MG tablet 10/18/19 Historical Provider, predniSONE (DELTASONE) 20 MG tablet 11/27/19 Historical Provider, sucralfate (CARAFATE) 100 mg/mL suspension 11/20/19 Historical Provider, traMADoL (ULTRAM) 50 mg tablet 11/15/19 Historical Provider, Allergies: Sulfa (Sulfonamide Antibiotics) Abbreviated Review of Systems (ROS) Functional Capacity: PADRON ACTIVITY SCALE: 4 - Raking leaves; weeding or pushing a power mower. Chest Pain: no Shortness of Breath/Dyspnea or Exertion: no Recent URI: no Airway, ASA Score & Sedation Specific History Concerns Airway: Mallampati:: III ASA Score: ASA: III -patient with moderate systematic disease with functional limitations Sedation specific history concerns: none of the above This patient was reevaluated immediately prior to sedation administration. Focused Physical Exam: Height ; Weight ; BMI Body mass index is 21.29 kg/m??. Vitals: 12/06/19 0903 BP: 99/55 Pulse: 69 Resp: 18 Temp: 98.2 ??F (36.8 ??C) SpO2: 96% Neuro: AAO x3 Cardiovascular: regular rhythm and rate Respiratory: Clear to auscultation Sedation Plan: MAC Antibiotic prophylaxis is not indicated. Cosigned by Chloé Martínez MD at 12/06/2019 10:36 AM EST Associated attestation - Chloé Martínez MD - 12/06/2019 10:36 AM EST Attending Physician's Note: I have personally seen and examined the patient, reviewed the chart, imaging and labs and have discussed the case with Dr. Garcia's, agree with their pre-operative anesthesia evaluation note and confirm it. Chloé Martínez MD, MS [facility] Division of Digestive Diseases Pager: [phone] * Omar MD - 12/03/2019 10:28 PM EST Images from the original note were not included. Department of Internal Medicine History & Physical Patient: Marleni Rosales CSN: [id number] Chief Complaint Diarrhea History of Present Illness Marleni Rosales is a 59 y.o. female with PMH Crohn's disease, etoh abuse, anxiety/depression who presents with worsening diarrhea. Her concern today is worsening diarrhea since May. In the past 20 years she has dealt with typical Crohn's diarrhea which is described as 7-8 episodes daily. Pt was diagnosed with Crohn's disease in 1980. She reports numerous prior surgeries ~20 years ago and these reports are not available inour records. Per care everywhere surgeries include colon surgery, colostomy, ileostomy or jejunostomy. She has never been on biologics. Her course was complicated by a perianal fistula that was treated with surgery within this time frame. Pt thinks she developed a new perianal fistula around 05/2019when diarrhea acutely worsened. The episodes are constant and son at bedside reports up to 40 epis odes within a 2 hour time frame. Ms. Rosales is severely distressed by the diarrhea because she isunable to eat or drink (worsens diarrhea) and the skin around her anus and vagina are raw from constantly wiping, going through many pads. She feels fatigued and her states pt frequently cries at home. She denies blood in her stool but notes blood on toilet paper when she wipes. Pt has generalized,constant, non-radiating abdominal pain, nausea, and chills but denies emesis, hemoptysis, oral ulcers, eye pain, rashes, joint pain, muscle pain, and dysuria. She reports having a EGD in the past that revealed numerous ulcers in her esophagus. In October or November of 2019 she saw a general practitioner who prescribed prednisone 40 mg x 14 days followed by 20 mg x 14 days but has not had relief of symptoms. She was also prescribed oral sucralfate and a suspension of sucralfate which has worsened the pain in her throat. She has also taken Lomotil without relief of diarrhea. Aleve has not helped with abd pain. Pt saw surgery at [facility] on 11/07/19 where she was felt to have complex trans- sphincteric and likely rectovaginal Crohn's fistula. Surgery was not recommended because it was felt to be best treated with biologics and limited surgery. She was referred to GI whom she saw on 11/15/19. They offered her a colonoscopy but she declined. Work-up for infection included Hep B surface antigen (negative), quantiferon TB (negative), fecal calprotectin (elevated to 410), C.diff (ngative), O&P (negative). Pthas not followed up with OSH GI since. Review of Systems General: +chills, no fevers Eyes: negative for blurry vision ENT: negative for congestion or rhinorrhea Cardiovascular: negative for chest pain or palpitations Lung: negative for shortness of breath or cough Gastrointestinal: +nausea, abd pain, diarrhea. Genitourinary: negative for difficulty urinating or dysuria Musculoskeletal: negative for muscle pain or joint pain Skin: negative for rash or lesion Heme: negative for easy brusing or bleeding Neuro: negative for headaches, dizziness, weakness, or paresthesias Past Medical History Past Medical History: Diagnosis Date ??? Crohn's colitis ([facility] Dx) ??? Fistula Past Surgical History No past surgical history on file. Family History No family history of UC or Crohns, other autoimmune diseases Social History Smoking: denies current use EtOH: reports quiting 2 years ago, previously consumed half a gallon of vodka daily for 4-5 years due to depression related to Crohn's disease. Drugs: denies recreational and IV drug use Medications Home Meds: Prior to Admission medications Not on File Inpatient Meds: Scheduled: ??? heparin 5,000 Units Subcutaneous 3 times per day ??? pantoprazole 40 mg Oral Daily 0900 ??? sodium chloride 10 mL Intravenous QS Vital Signs Temp: [97.6 ??F (36.4 ??C)-98.4 ??F (36.9 ??C)] 97.7 ??F (36.5 ??C) Heart Rate: [64-88] 64 Resp: [16] 16 BP: (111-124)/(63-68) 124/68 No intake or output data in the 24 hours ending 12/03/19 2331 Physical Exam General: alert, pleasant, NAD Eye: conjunctiva clear b/l with no icterus, EOMI ENT: oropharynx clear without erythema or exudate, moist mucous membranes, no oral lesions Neck: supple with normal ROM, no thyromegaly Lymph: no cervical LAD, no submandibular LAD CV: RRR, nl S1/S2, no M/R/G, no JVD, no edema, radial pulses palpable b/l Pulm: CTAB, no crackles or wheezing, good air movement b/l Abd: Numerous surgical incisions and scarring that is well healed, soft, NT/ND, +BS, no hepatosplenomegaly. Please see image below for anal exam MSK: normal ROM, no joint swelling, no muscle tenderness Skin: no rashes, no ecchymosis Neuro: oriented to self/place/time/situation, no facial asymmetry, no gross focal weakness, sensation grossly intact to light touch, normal tone Psych: normal mood, normal behavior Media Information Document Information Clinical Image 12/03/2019 9:40 PM Attached To: Hospital Encounter on 12/03/19 Source Information Omar MD Emergency Dept Laboratory Data Renal Recent Labs 12/03/19 1534 NA 137 K 4.4 CL 106 CO2 24 BUN 46* CREATININE 1.06 CALCIUM 9.1 MG 1.6 PHOS 3.3 CBC Recent Labs 12/03/19 1534 HGB 11.5* HCT 37.9 PLT 422* WBC 15.8* Liver Recent Labs 12/03/19 1534 AST 14 ALT 45 ALKPHOS 77 ALBUMIN 3.5 BILITOT 0.4 BILIDIRECT 0.12 Diagnostic Studies From Care everywhere: EGD 06/2016 Ulcers in the antrum and stomach body. (Biopsy). Ulcers in the second part of the duodenum. (Biopsy). Ulcer in the upper third of the esophagus. Possible Crohn's involvement of upper GI CT Abdomen and Pelvis With IV contrast Final Result IMPRESSION: 1. Wall thickening and mucosal hyperenhancement of the rectum and proximal sigmoid colon with associated fat stranding consistent with active Crohn's disease. 2. Findings suspicious for rectovaginal fistula with free air seen in the uterus. 3. 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 4. Cholelithiasis. Approved by Akash King MD on 12/03/2019 5:55 PM EST I have personally reviewed the images and I agree with this report. Report Verified by: Andrés Kline MD at 12/03/2019 6:25 PM EST Assessment & Plan Marleni Rosales is a 59 y.o. female with PMH Crohn's disease, etoh abuse, anxiety/depression who presents with worsening diarrhea. # Crohn's disease Pt is presenting with active crohn's disease c/b rectovaginal fistula and colonocutanous fistula, never treated with biologics - as she has not had recent EGD or colonoscopy, she would benefit from repeating these studies to evaluate disease severity prior to starting therapy - no need to repeat infectious studies as they were recent in 11/21. Hep B surface antigen (negative), quantiferon TB (negative), fecal calprotectin (elevated to 410), C.diff (ngative), O&P (negative). - consider starting budesonide - start pantoprazole 40 mg daily - IV morphine 2 mg x 1 for abd pain - NPO at midnight - hold home sucralfate and lomotil # etoh abuse Pt reports last drink was > 2 years ago. No evidence of withdrawal at this time - offer addiction services if pt is amenable # anxiety and depression Per care everywhere pt was previously on lexapro 10 mg dial and hydroxyzine 25 mg daily. Pt does not appear to be taking these medications now. Anxiety/depression likely related to symptomatic crohn's disease. - follow-up with PCP Fluids: PO intake Electrolytes: replete prn Nutrition: Diet Orders Diet NPO past midnight starting at 12/02 413 Prophylaxis: GI/ ppx: PPI DVT ppx: SQ heparin Code [facility]: [facility] Dispo: stable Bon Valdovinos, PGY-1 Internal Medicine P: [phone] Cosigned by Keenan Reeves MD at 12/04/2019 3:46 PM EST Associated attestation - Keenan Reeves MD - 12/04/2019 3:46 PM EST 59 yo female with Crohns disease for at [facility] 20 years. Has had multiple intestinal surgeries and has chronic diarrhea 6-8 BMs per day. However for the past several months the diarrhea has worsened and now occurs every 15-30 minutes. She has taken lots of Lomotil without relief. She also has developed a delmi-anal fistula and her delmi-anal area is raw and painful.She notes that she passes stool per vagina. She is currently not on any treatment for her Crohns disease and has not been on anything for at least the past 2-3 years. She is also said to have disease in her esophagus by an EGD [address] scan today shows small bowel and colonic thickening, a recto-vaginal fistula, colo-cutaneous fistula with extension into buttock. 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 Needs yohave both an EGD and colonoscopy to evaluate the state and location of her disease. WE need to try to reduce her diarrhea and will start with Cholestyramine. If that doesn't work willtry codeine. Need to R/O C. Difficle and other infections. Will obtain colo-rectal consult for evaluation and opinion. I saw and examined the patient. I discussed with the resident or fellow and agree with DR. Valdovinos's findings and plan as documented in the note. Keenan Reeves MD * Alden Tena MD - 12/03/2019 3:06 PM EST [facility] ED Note Date of service: 12/03/2019 Reason for Visit: Abdominal Pain and Diarrhea Patient History HPI: Marleni Rosales is a 59 y.o. female with PMHx of Crohn's colitis and fistula who presents with chief complaint of Abdominal Pain and Diarrhea . Pt states that she has been having diarrhea for the past year. 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 She endorses some fecal incontinence as well. Patient denies any bleeding. She states thatshe has not been seen by GI in over a year due to her putting it off and after calling the clinic she was told to come into the ED today. Patient states that she has had multiple abdominal surgeries in the past including ostomies as well. Patient denies any recent fevers or chills. She has had somegeneralized abdominal cramping with this. She endorses some nausea but no vomiting. Patient has had some oral lesions that she states she was given some liquid to drink but that has not improved her symptoms. She is still able to swallow but has had some occasional episodes of pain with that. Aside from the above, patient denies any aggravating or alleviating factors or associated symptoms. Past Medical History: Diagnosis Date ??? Crohn's colitis ([facility] Dx) ??? Fistula No past surgical history on file. Marleni Rosales has no history on file for tobacco, alcohol, and drug. Previous Medications No medications on file Allergies: Allergies as of 12/03/2019 - Fully Reviewed 12/03/2019 Allergen Reaction Noted ??? Sulfa (sulfonamide antibiotics) 12/03/2019 Review of Systems ROS: Positive for abdominal pain, diarrhea, vaginal discharge. Negative for fevers, chest pain, shortness of breath. All other systems are negative except as mentioned in HPI. Physical Exam ED Triage Vitals [12/03/19 1511] Vital Signs Group Temp 98.4 ??F (36.9 ??C) Temp Source Oral Heart Rate 88 Heart Rate Source Monitor Resp 16 SpO2 99 % BP 111/66 MAP (mmHg) BP Location Right arm BP Method Automatic Patient Position Sitting SpO2 99 % O2 Device General: Well appearing. No acute distress. Eyes: Pupils reactive. No discharge from eyes. ENT: No discharge from nose. OP clear. Neck: Supple. Pulmonary: Non-labored breathing. Breath sounds clear bilaterally. Cardiac: Regular rate and rhythm. No murmurs. Abdomen: Soft. There were some well healed long to the abdomen from her prior ostomies. No evidence of significant distention. The patient had some erythema with some stool noted along the vaginal lips. She would not tolerate speculum examination with her history of a rectovaginal fistula this wasavoided. Musculoskeletal: No long bone deformity. No CVA tenderness. Vascular: Extremities warm and perfused. Skin: No rash. Neuro: Alert. Moves all four extremities to command. No focal deficit. Neuro: Alert and oriented x 4. CN II-XII intact. 5/5 strength in all 4 extremities. Sensation grossly intact to light touch. Speech and mentation normal. Gait narrow and stable. Extremities: No peripheral edema. Diagnostic Studies Labs: Please see electronic medical record for any tests performed in the ED Radiology: Please see electronic medical record for any tests performed in the ED Emergency Department Procedures ED Course and MDM Marleni Rosales is a 59 y.o. female with a history and presentation as described above in HPI. The patient was evaluated by myself and the ED Attending Physician, Dr. Owens. All management and disposition plans were discussed and agreed upon. Appropriate labs and diagnostic studies were reviewed as they were made available. Pertinent laboratory studies in medical decision making are listed below. Upon presentation, the patient was hemodynamically stable and nontoxic in appearance. She had no fever here and was not hypertensive. Previous records show the patient was seen by GI on November 15 of this year and has a history of a complex trans-sphincteric fistula. She has had about 11: Surgeries with an ileostomy/jejunostomy in the past. She was seen by her surgeon on November 02 and other times they're concerned that her likely rectovaginal Crohn's fistula did not require surgical intervention but would need to be treated with biologic's and reassessed in a month to see if it was getting better. The patient's findings here show a slight leukocytosis but otherwise normal LFTs, lipase, lac rossi, magnesium and phosphorus. The CRP was 15 but otherwise a normal sedimentation rate. Her CT scan here revealed findings consistent with a rectovaginal fistula as well as some fat stranding of the sigmoid colon. There was also colocutaneous fistula noted with extension into the left buttock. Her findings are discussed with GI and also mention that they would need to do a scope prior to starting any type of medication management. I believe the patient's pain is due to an exacerbation of her Crohn's disease. While here the patient was given some Tylenol and some morphine for pain. At this time the patient has been admitted to GI for further evaluation and management of Crohn's. The patient will continue to be monitored here in the emergency department until which time she is moved to her new treatment location. Consults: Consults Summary of Treatment in ED: Medications sodium chloride flush 10 mL (has no administration in time range) heparin (porcine) injection 5,000 Units (has no administration in time range) acetaminophen (TYLENOL) tablet 650 mg (has no administration in time range) morphine injection 4 mg (4 mg Intravenous Given 12/03/19 1613) OMNIPAQUE (iohexol) 350 mg iodine/mL 150 mL (120 mLs Intravenous Given 12/03/19 1717) Discharge Medications There are no discharge medications for this patient. Impression 1. Crohn's disease of small intestine with fistula ([facility] Dx) Alden Tena MD Resident [id number]/03/[id number] Cosigned by Angel Owens MD at 12/03/2019 11:12 PM EST documented in this encounter Procedure Notes * Maverick Campbell MD - 12/06/2019 11:56 AM EST [id number] Procedure Date: 12/06/2019 11:56 AM Patient Name: Marleni Rosales Date of : 1960 Admit Type: Inpatient Age: 59 Gender: Female Note Status: Finalized Attending MD: Maverick Campbell MD Procedure: Colonoscopy Indications: Crohn's disease of the colon Patient Profile: Patient is a Providers: Maverick Campbell MD, Vinnie Garcia MD (Fellow) Referring MD: Medicines: Monitored Anesthesia Care Complications: No immediate complications. Estimated blood loss: None. Procedure: Pre-Anesthesia Assessment: - Prior to the procedure, a History and Physical was performed, and patient medications and allergies were reviewed. The patient is competent. The risks and benefits of the procedure and the sedation options and risks were discussed with the patient. All questions were answered and informed consent was obtained. Patient identification and proposed procedure were verified by the physician, the nurse, the industrial chemist and the tattoo technician in the procedure room. Mental Status Examination: alert and oriented. Airway Examination: normal oropharyngeal airway and neck mobility. Respiratory Examination: clear to auscultation. CV Examination: normal. Prophylactic Antibiotics: The patient does not require prophylactic antibiotics. Prior Anticoagulants: The patient has taken no previous anticoagulant or antiplatelet agents. ASA Grade Assessment: III - A patient with severe systemic disease. After reviewing the risks and benefits, the patient was deemed in satisfactory condition to undergo the procedure. The anesthesia plan was to use monitored anesthesia care (MAC). Immediately prior to administration of medications, the patient was re-assessed for adequacy to receive sedatives. The heart rate, respiratory rate, oxygen saturations, blood pressure, adequacy of pulmonary ventilation, and response to care were monitored throughout the procedure. The physical status of the patient was re-assessed after the procedure. After I obtained informed consent, the scope was passed under direct vision. Throughout the procedure, the patient's blood pressure, pulse, and oxygen saturations were monitored continuously. The Colonoscope was introduced through the anus and advanced to the ileocolonic anastomosis. The colonoscopy was performed without difficulty. The patient tolerated the procedure well. The quality of the bowel preparation was fair. Anatomical landmarks were photographed. Findings: The perianal exam findings include perianal fistula, erythema of buttocks without fluctulence. The Simple Endoscopic Score for Crohn's Disease was determined based on the endoscopic appearance of the mucosa in the following segments: - Ileum: Findings include large ulcers 0.5-2 cm in size, less than 10% ulcerated surfaces, less than 50% of surfaces affected and no narrowings. Segment score: 4. - Right Colon: Findings include aphthous ulcers less than 0.5 cm in size, less than 10% ulcerated surfaces, less than 50% of surfaces affected and no narrowings. Segment score: 3. - Transverse Colon: Findings include no ulcers present, less than 10% ulcerated surfaces, less than 50% of surfaces affected and no narrowings. Segment score: 2. - Left Colon: Findings include aphthous ulcers less than 0.5 cm in size, less than 10% ulcerated surfaces and less than 50% of surfaces affected. Segment score: 3. - Rectum: Findings include large ulcers 0.5-2 cm in size, 10-30% ulcerated surfaces and less than 50% of surfaces affected. Segment score: 5. - Total SES-CD aggregate score: 17. Biopsies were taken with a cold forceps for histology, CMV, HSV The exam was otherwise without abnormality on direct and retroflexion views. Impression: - Preparation of the colon was fair. - Perianal fistula, erythema of buttocks found on perianal exam. - Simple Endoscopic Score for Crohn's Disease: 17, mucosal inflammatory changes secondary to Crohn's disease, with ileitis and colitis. Biopsied. - The examination was otherwise normal on direct and retroflexion views. Recommendation: - [facility]. - Resume previous diet. - Erythema of rectum -Peranal fistula present -Discuss with colorectal surgery need of MRI Pelvis for evaluation of rectum, though no findings of abscess on CT abd/pelvis -Patient to make decision need of biologic medication - Repeat colonoscopy in 5 years for surveillance. - Continue present medications. Procedure Code(s): --- Professional --- 46234, GC, Colonoscopy, flexible; with biopsy, single or multiple Diagnosis Code(s): --- Professional --- K50.80, Crohn's disease of both small and large intestine without complications K50.10, Crohn's disease of large intestine without complications CPT copyright 2016 [employer]. All rights reserved. The codes documented in this report are preliminary and upon personnel monitor review may be revised to meet current compliance requirements. Dae Campbell Maverick Campbell MD 12/06/2019 4:02:20 PM Vinnie Garcia MD Scope Withdrawal Time 0 hours 6 minutes 39 seconds Total Procedure Duration Time 0 hours 12 minutes 35 seconds Scope In: 12:04:23 PM Scope Out: 12:16:[address] [place] [id number] * Maverick Campbell MD - 12/06/2019 11:36 AM EST [id number] Procedure Date: 12/06/2019 11:36 AM Patient Name: Marleni Rosales Date of : 1960 Admit Type: Inpatient Age: 59 Gender: Female Note Status: Finalized Attending MD: Maverick Campbell MD Procedure: Upper GI endoscopy Indications: Esophageal dysphagia Patient Profile: 59 y/o female with history of ileocolonic Crohn's diease with multiple prior surgical resections not on an medications presenting for evaluation of Crohn's disease Providers: Vinnie Garcia MD (Fellow), Maverick Campbell MD Referring MD: Medicines: Monitored Anesthesia Care Complications: No immediate complications. Procedure: Pre-Anesthesia Assessment: - Prior to the procedure, a History and Physical was performed, and patient medications and allergies were reviewed. The patient is competent. The risks and benefits of the procedure and the sedation options and risks were discussed with the patient. All questions were answered and informed consent was obtained. Patient identification and proposed procedure were verified by the physician, the nurse, the industrial chemist and the tattoo technician in the procedure room. Mental Status Examination: alert and oriented. Airway Examination: normal oropharyngeal airway and neck mobility. Respiratory Examination: clear to auscultation. CV Examination: normal. Prophylactic Antibiotics: The patient does not require prophylactic antibiotics. Prior Anticoagulants: The patient has taken no previous anticoagulant or antiplatelet agents. ASA Grade Assessment: III - A patient with severe systemic disease. After reviewing the risks and benefits, the patient was deemed in satisfactory condition to undergo the procedure. The anesthesia plan was to use monitored anesthesia care (MAC). Immediately prior to administration of medications, the patient was re-assessed for adequacy to receive sedatives. The heart rate, respiratory rate, oxygen saturations, blood pressure, adequacy of pulmonary ventilation, and response to care were monitored throughout the procedure. The physical status of the patient was re-assessed after the procedure. After obtaining informed consent, the endoscope was passed under direct vision. Throughout the procedure, the patient's blood pressure, pulse, and oxygen saturations were monitored continuously. The Endoscope was introduced through the mouth, and advanced to the second part of duodenum. The upper GI endoscopy was accomplished without difficulty. The patient tolerated the procedure well. Findings: Diffuse candidiasis was found in the middle third of the esophagus and in the lower third of the esophagus. Biopsies were taken with a cold forceps for histology. Three non-bleeding linear gastric ulcers with a clean ulcer base (Jan Class III) were found in the gastric antrum. Biopsies were taken with a cold forceps for histology. The duodenal bulb, first portion of the duodenum and second portion of the duodenum were normal. Impression: - Monilial esophagitis. Biopsied. - Non-bleeding gastric ulcers with a clean ulcer base (Jan Class III). Biopsied. - Normal duodenal bulb, first portion of the duodenum and second portion of the duodenum. Recommendation: - Return patient to [facility] for ongoing care. - Resume previous diet. - Continue present medications. - Start fluconazole for candidasis - Await pathology results. Procedure Code(s): --- Professional --- 03274, GC, Esophagogastroduodenoscopy, flexible, transoral; with biopsy, single or multiple Diagnosis Code(s): --- Professional --- B37.81, Candidal esophagitis R13.14, Dysphagia, pharyngoesophageal phase K25.9, Gastric ulcer, unspecified as acute or chronic, without hemorrhage or perforation CPT copyright 2016 [employer]. All rights reserved. The codes documented in this report are preliminary and upon personnel monitor review may be revised to meet current compliance requirements. Attending Participation: I personally performed the entire procedure. Dae Campbell Maverick Campbell MD 12/06/2019 4:00:12 PM Vinnie Garcia Vinnie Garcia MD 12/06/2019 12:34:31 PM Total Procedure Duration Time 0 hours 9 minutes 39 seconds Scope In: 11:46:10 AM Scope Out: 11:55:[address] [place] [id number] documented in this encounter Consult Notes * Trisha Daniel RN - 12/04/2019 11:24 PM ESTAssociated Order(s): IP Consult to UGPIV IP Consult to UGPIV Consult performed by: Trisha Daniel RN Consult ordered by: Flora Goodson MD Assessment/Recommendations: ugpiv placed in left forearm * Darío Escobar MD - 12/04/2019 1:35 PM ESTAssociated Order(s): IP CONSULT TO COLORECTAL SURGERY Images from the original note were not included. Acute Care Surgery History and Physical/Consultation Note Patient: Marleni Rosales CSN: [id number] History CC: Rectovaginal fistula HPI: Marleni Rosales is a 59 y.o. female with PMH Crohn's disease, etoh abuse, anxiety/depression who presents with worsening diarrhea. Patient reports that she has had crohn's disease for approximately 40 years. She reports that she previously had an operation with colostomy formation at an OSH then Dr. Mi revised that and created an ileostomy approximately 30 years ago. Patient then had reversal of her ileostomy and colostomy 25 years ago. She has not been on any treatment since that timeincluding no biologics. Patient reports that she has not had any abnormal crohn's symptoms over thepast 20 years other than multiple loose bowel movements daily which she says was her normal. She recently noted increase in BM and perianal pain approximately 5-6 months ago. Patient now reports approximately 40 BM daily which are liquid. She has taken high amounts of Lomotil without relief. She recently noticed stool coming from her vagina a few months ago. She reports having a EGD in the past that revealed numerous ulcers in her esophagus and colonoscopy approximately 35 years ago. In Octoberor November of 2019 she saw a general practitioner who prescribed prednisone 40 mg x 14 days followed by 20 mg x 14 days but has not had relief of symptoms. Pt saw surgery at [facility] on 11/07/19 where she was felt to have complex trans-sphincteric and likely rectovaginal Crohn's fistula. Surgery was not recommended because it was felt to be best treated with biologics and limited surgery. She was referred to GI whom she saw on 11/15/19. They offered her a colonoscopy but she declined. Work-up for infection included Hep B surface antigen (negative), quantiferon TB (negative), fecal calprotectin (elevated to 410), C.diff (ngative), O&P (negative). Pt has not followed up with OSH GI since. Patient states that she has not been eating for months. She denies nausea/vomiting or any obstructive sy mptoms at this time. Patient was started on prednisone recently by a physician at an OSH. She denies fevers. PMH: Past Medical History: Diagnosis Date ??? Crohn's colitis ([facility] Dx) ??? Fistula PSH: No past surgical history on file. Medications: No current facility-administered medications on file prior to encounter. Current Outpatient Medications on File Prior to Encounter Medication Sig Dispense Refill ??? diphenoxylate-atropine (LOMOTIL) 2.5-0.025 mg per tablet ??? dyclonine HCl (SUCRETS SORE THROAT MM) dyclonine ??? pantoprazole (PROTONIX) 40 MG tablet ??? predniSONE (DELTASONE) 20 MG tablet ??? sucralfate (CARAFATE) 100 mg/mL suspension ??? traMADoL (ULTRAM) 50 mg tablet Allergies: Sulfa (sulfonamide antibiotics) SH: Social History Socioeconomic History ??? Marital status: Spouse name: Not on file ??? Number of children: Not on file ??? Years of education: Not on file ??? Highest education level: Not on file Occupational History ??? Not on file Social Needs ??? Financial resource strain: Not on file ??? Food insecurity: Worry: Not on file Inability: Not on file ??? Transportation needs: Medical: Not on file Non-medical: Not on file Tobacco Use ??? Smoking status: Not on file Substance and Sexual Activity ??? Alcohol use: Not on file ??? Drug use: Not on file ??? Sexual activity: Not on file Lifestyle ??? Physical activity: Days per week: Not on file Minutes per session: Not on file ??? Stress: Not on file Relationships ??? Social connections: Talks on phone: Not on file Gets together: Not on file Attends worship service: Not on file Active member of club or organization: Not on file Attends meetings of clubs or organizations: Not on file Relationship status: Not on file ??? Intimate partner violence: Fear of current or ex partner: Not on file Emotionally abused: Not on file Physically abused: Not on file Forced sexual activity: Not on file Other Topics Concern ??? Not on file Social History Narrative ??? Not on file FH: No family history on file. ROS: Review of Systems Constitutional: Negative for activity change, appetite change, chills, fatigue, fever and unexpected weight change. HENT: Negative for congestion, sinus pressure and sore throat. Eyes: Negative for pain and visual disturbance. Respiratory: Negative for chest tightness, shortness of breath and wheezing. Cardiovascular: Negative for chest pain and palpitations. Gastrointestinal: Positive for diarrhea and rectal pain. Negative for abdominal distention, abdominal pain, blood in stool, constipation, nausea and vomiting. Genitourinary: Positive for vaginal discharge and vaginal pain. Musculoskeletal: Negative for back pain and myalgias. Skin: Negative for color change, rash and wound. Neurological: Negative for dizziness, weakness, light-headedness, numbness and headaches. Psychiatric/Behavioral: Negative for agitation, confusion and suicidal ideas. The patient is not nervous/anxious. All other systems reviewed and are negative. Vital Signs Temp: [97.6 ??F (36.4 ??C)-98.4 ??F (36.9 ??C)] 97.7 ??F (36.5 ??C) Heart Rate: [64-88] 80 Resp: [11-18] 11 BP: (111-135)/(63-77) 118/77 Vitals: 12/04/19 1055 BP: 118/77 Pulse: 80 Resp: 11 Temp: SpO2: Physical Exam Physical Exam Constitutional: General: She is not in acute distress. Appearance: She is well-developed. HENT: Head: Normocephalic and atraumatic. Nose: Nose normal. Eyes: Pupils: Pupils are equal, round, and reactive to light. Neck: Musculoskeletal: Normal range of motion. Cardiovascular: Rate and Rhythm: Normal rate and regular rhythm. Pulmonary: Effort: Pulmonary effort is normal. No respiratory distress. Breath sounds: Normal breath sounds. No wheezing. Abdominal: General: Bowel sounds are normal. There is no distension. Palpations: Abdomen is soft. There is no mass. Tenderness: There is no tenderness. There is no guarding or rebound. Comments: Previous abdominal incision scars noted as in figure. No tenderness on exam, soft, non-distended. Genitourinary: Rectum: Tenderness present. No mass, anal fissure or external hemorrhoid. Comments: Fistula noted approximately 1 cm from anal verge on left side which is draining purulent material spontaneously. Skin surrounding anus is friable and irritated but no bleeding noted. Musculoskeletal: Normal range of motion. General: No tenderness or deformity. Skin: General: Skin is warm and dry. Findings: No erythema or rash. Neurological: Mental Status: She is alert and oriented to person, place, and time. Cranial Nerves: No cranial nerve deficit. Psychiatric: Behavior: Behavior normal. Laboratory Data Invalid input(s): CO2ART, HBO2PE Lab 12/04/19 0635 12/03/19 1534 WBC 19.7* 15.8* HEMOGLOBIN 10.4* 11.5* HEMATOCRIT 33.6* 37.9 MEAN CORPUSCULAR VOLUME 75.2* 75.5* PLATELETS 369 422* Lab 12/04/19 0635 12/03/19 1534 SODIUM 137 137 POTASSIUM 4.6 4.4 CHLORIDE 106 106 CO2 26 24 BUN 38* 46* CREATININE 0.86 1.06 GLUCOSE 88 159* CALCIUM 9.0 9.1 MAGNESIUM 1.8 1.6 PHOSPHORUS 2.8 3.3 Lab 12/04/19 0635 INR 1.2* PROTHROMBIN TIME 15.6* Lab 12/04/19 0635 12/03/19 1534 ALT -- 45 AST -- 14 ALK PHOS -- 77 BILIRUBIN TOTAL -- 0.4 BILIRUBIN DIRECT -- 0.12 ALBUMIN 3.0* 3.5 Invalid input(s): [facility] Imaging Studies Ct Abdomen And Pelvis With Iv Contrast Result Date: 12/03/2019 EXAM: CT ABDOMEN AND PELVIS WITH IV CONTRAST INDICATION: hx of crohn's, known hx of fistula with last scan 2014, worsening abdominal pain, TECHNIQUE: CT of the abdomen and pelvis was performed after the administration of intravenous contrast. Axial images were obtained with coronal and sagittal reconstructions. CONTRAST: 120 mL of IOHEXOL 350 MG IODINE/ML INTRAVENOUS SOLUTION administered intravenously FIELD OF VIEW: 36 cm COMPARISON: 08/22/2007 FINDINGS: Lower Chest: No focal consolidation or layering pleural effusions. Liver: No focal hepatic lesions. Biliary Tree: No intra or extra-hepaticbiliary ductal dilatation. Cholelithiasis without CT evidence of cholecystitis. Spleen: Normal Pancreas: Normal Adrenal Glands: Normal Kidneys/Ureters/Bladder: The kidneys enhance symmetrically. There is no hydronephrosis or hydroureter. The urinary bladder is unremarkable. Gastrointestinal Tract: Surgical suture line along the colon in the lower abdomen. There is no evidence of obstruction. There is wall thickening and mucosal hyperenhancement of the rectum and proximal sigmoid colon. A fistulo us tract is seen along the rectum/proximal sigmoid colon with extension through the soft tissues ofthe left buttock. Additional fistulous tract is seen along the rectum and vagina. Lymphatics: No abdominal or pelvic lymph nodes are enlarged by size criteria. Vasculature: Minimal atherosclerosis. Pe ritoneum/Retroperitoneum: No free fluid, free air, or loculated fluid collections. Fat stranding isseen along the proximal sigmoid colon and rectum. Abdominal Wall/Soft Tissues: Unremarkable. Genital Structures: Air is seen in the uterus consistent with rectovaginal fistula. Osseous Structures: Noacute osseous abnormalities or suspicious osseous lesions. IMPRESSION: 1. Wall thickening and mucosal hyperenhancement of the rectum and proximal sigmoid colon with associated fat stranding consistent with active Crohn's disease. 2. Findings suspicious for rectovaginal fistula with free air seen in the uterus. 3. 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 4. Cholelithiasis. Approved by Akash King MD on 12/03/2019 5:55 PM EST I have personally reviewed the images and I agree with this report. Report Verified by: Andrés Kline MD at 12/03/2019 6:25 PM EST Assessment and Plan Marleni Rosales is a 59 y.o. female with PMH Crohn's disease, etoh abuse, anxiety/depression who presents with worsening diarrhea. Patient has newly diagnosed rectovaginal and rectocutaneous fistulas. - Recommend medical management of crohn's disease at this time - Medical management of diarrhea - Recommend colonoscopy - No indication for acute surgical intervention - Recommend nutrition labs and optimization - Will continue to follow peripherally at this time Thank you for involving [facility] in the care of this patient. Please page with any questions or concerns. Herbert Escobar MD General Surgery Resident Pager: [phone] 12/04/2019 1:35 PM Cosigned by Pancho Gupta MD at 12/05/2019 6:43 AM EST Associated attestation - Pancho Gupta MD - 12/05/2019 6:43 AM EST I performed a history and physical exam of the patient and discussed his management with the resident. I reviewed the resident???s note and agree with the documented findings and plan of care. Very complex patient with multiple prior operations for Crohn's and was not on any meds. Issues areprofound diarrhea and evidence of likely active Crohn's. Has a rectovaginal fistula and anal fistula. Will follow. For now, control of the Crohn's inflammation and diarrhea are the best initial management strategies. If the anal fistula progresses to an abscess, a seton can be placed to control the drainage. Definitive options are very few because repair won't work in the setting of inflammation, and the solution would be a resection with stoma, increasing her chances of worsening short gut * ITA Stock, GROUP PRACTICE PEDIATRICIAN - 12/04/2019 10:19 AM EST [facility] Social Work Psychosocial Assessment Marleni Rosales [id number] 59 y.o. female White or Marital Status: No admission diagnoses are documented for this encounter. Referred by: GI Service Referred Reason: Psychosocial/Discharge Planning History Past Medical History: Diagnosis Date ??? Crohn's colitis ([facility] Dx) ??? Fistula Social History Substance and Sexual Activity Drug Use Not on file Social History Substance and Sexual Activity Alcohol Use Not on file Mental Health History: Anxiety, Depression Mental Status Current Mental Status: Awake, Oriented to Person, Oriented to Place, Oriented to Time, Oriented to Situation Mental Status Prior to Admission: Unable to Assess Activities of Daily Living: Independent Current Living Arrangements Current Living Arrangements: Alone Type of Living Arrangement: Home/Apartment Support Systems Next of Kin/Ichthyologist: Eloy Brewer Next of Kin Relationship: Son Next of Kin Steven Luevano, father, Community Resources Used Prior to Admission: No Cultural/Spiritual/Language Barriers Scientologist/Cultural Factors: Uatsdin Other Pertinent Data Field Engineer for Mental Health IssuesPrior to Admission: No Durable Medical Equipment Prior to Admission: [place]/number of PCP: Anand Merrill [phone] Pharmacy: [facility] [phone] Assessment/Plan Per H&P documentation: Marleni Rosales is a 59 y.o. female with PMH Crohn's disease, etoh abuse, anxiety/depression who presents with worsening diarrhea. SW met with patient at bedside to complete psychosocial assessment. Her son, Eloy, also present.SW introduced self, explained role, and verified demographic information. Patient is a 59 year old female who currently resides alone at her home located in [place], [place]. Per chart patient is un employed. Patient reports her primary support system includes her son and father whose contact information is listed above. Patient has two adult sons. Per RN and chart review, patient upset regarding the care she has received. RN stated that patient relations has been called to speak to patient. Upon discussion, patient expressed that she had not seen anyone from the GI team until this morning and has been here since 1300 yesterday. She expressedshe has not been given IV fluids or biologics. She stated she does not want a colonoscopy as she has been told such intervention will make her fistula worse. Her primary concerns are to stop her diarrhea and control her pain. She stated she wants to go to [facility] as she is not receiving timely care. SW provided empathetic/active listening throughout discussion. Contacted the GI teamto complete rounds on her first this morning to address her concerns. Patient reports no current or past history of suicidal/homicidal ideation. Per chart patient has history of Anxiety and Depression related to her Crohn's disease. Per chart patient was previously consuming 1/2 gallon of vodka daily for 4-5 years. She quit drinking two years ago. Patient reports no previous need or recommendation for home health care services and no previous placements at jail facility and/or inpatient rehab program. Patient reports no previous need or access to DME prior to hospitalization. SW's contact information provided to patient. Patient anticipated for discharge within the next couple of days. Colorectal surgery consulted. Family to provide transport home upon discharge. SW will continue to follow patient, communicate with GI team, and assist with discharge planning. Patient/Family aware and taking part in the discharge plan. Patient and family were offered a post-acute provider list as applicable to the discharge plan and insurance provider. Patient and family were given the freedom to choose providers and financial interest(s) were disclosed as appropriate. This assessment has been reviewed with the multi-disciplinary team. ITA Stock, [facility] Inpatient Patient Support Tech GI Service [phone] documented in this encounter Nursing Notes * Mylene Ho RN - 12/07/2019 1:00 PM EST Pt with dc order. Dc instructions reviewed with patient and family, verbalized understanding. Paperscript for ultram given, rest electronically sent to pharmacy. Pt dcd to home per car with son and parents in stable condition. Pt declined wheelchair transport to discharge, ambulating with steady gait. Discharged at 12:55. * Masha Malagon RN - 12/07/2019 4:06 AM EST Nursing Overnight Progress Note Significant Events During Shift Pt IV occluded. Pt did not want a new IV. Requested nausea and pain meds to be changed to oral. Team aware no IV access and submitted new orders. Pt reported increased diarrhea. Team contacted. Orderto test for Cdif and pt isolation to rule out Cdif. Specimen sent. Patient/Family Concerns Evening/Overnight Visitors: son overnight Concerns: wanted to go home 12/06 now may be delayed Assessment Nursing time demands: moderate IV access: unable to obtain IV access Sitter requirements: no Mental Status No data found. Calls to Physician Team Calls for the past 14 hrs: Reason for Communication Notification Details Provider Name Provider Role Method of Communication Response Time Attempted Contact With Provider Time Response Received From Provider 12/06/19 2158 Other (Comment) Other (please see comments) bryant Carver Resident Other (Comment)Other (Comment) -- -- 12/06/19 2300 Patient/Family request Other (please see comments) Bryant Carver Resident Other (Comment) Other (Comment) [phone] Medications [id number] - Medications Not Given (last 12 hrs) SITE UNKNOWN Medication Name Action Time Action Reason Comments heparin (porcine) injection 5,000 Units 12/06/19 2214 Not Given Patient/family refused sodium chloride flush 10 mL (And Linked Group #1) 12/06/19 2218 Not Given Loss of IV access Diet/Meals Consumed (past 24 hours) Nutrition Assessment for the past 24 hrs: Diet Type Feeding Percent Meals Eaten (%) Appetite 12/06/19 1300 Regular Able to feed self -- Fair 12/06/192055 -- -- 100 % -- * Ok Urbina RN - 12/06/2019 7:30 PM EST Nursing Day Shift Progress Note Significant Events During Shift The patient reported severe pain to this nurse throughout the shift. The patients iv was infiltrated and was removed by this nurse. The patient had multiple bowel movements through out the shift. Thepatient received an EGD and colonoscopy with biopsy. The patient has redness on her bottom. Patientremains stable. Will continue to monitor. Patient/Family Concerns Visitors: family Concerns: none Assessment Nursing time demands: high IV access: has IV access, adequate and functioning Sitter requirements: no Mental Status No data found. Medications [id number] - Medications Not Given (last 12 hrs) SITE UNKNOWN Medication Name Action Time Action Reason Comments heparin (porcine) injection 5,000 Units 12/06/19 1400 Not Given Patient/family refused * Adelaide Carmichael RN - 12/06/2019 7:20 AM EST Nursing Overnight Progress Note Significant Events During Shift Pt with c/o bowel prep and pain during shift, PRN and spot dose pain medication given during night. Patient/Family Concerns Evening/Overnight Visitors: son Concerns: none Assessment Nursing time demands: moderate IV access: has IV access, adequate and functioning Sitter requirements: no Mental Status No data found. Calls to Physician Team No data found. Medications [id number] - Medications Not Given (last 12 hrs) SITE UNKNOWN Medication Name Action Time Action Reason Comments heparin (porcine) injection 5,000 Units 12/05/194 Not Given Patient/family refused heparin (porcine) injection 5,000 Units 12/06/19 0639 Not Given Patient/family refused Diet/Meals Consumed (past 24 hours) Nutrition Assessment for the past 24 hrs: Diet Type Feeding 12/05/19 0948 Clear liquid Able to feed self 12/06/19 0000 NPO -- * Ok Urbina RN - 12/05/2019 6:57 PM EST Nursing Day Shift Progress Note Significant Events During Shift The patient reported severe pain to this nurse through out the shift and was given medicine. See MAR. The patient is bowel prepping for a colonoscopy and EGD tomorrow. The patient had multiple bowel movements throughout the day. Patient remains stable. Will continue to monitor. Patient/Family Concerns Visitors: family Concerns: none Assessment Nursing time demands: moderate IV access: has IV access, adequate and functioning Sitter requirements: no Mental Status No data found. Medications [id number] - Medications Not Given (last 12 hrs) SITE UNKNOWN Medication Name Action Time Action Reason Comments heparin (porcine) injection 5,000 Units 12/05/19 1330 Not Given Patient/family refused * Skye Winchester RN - 12/05/2019 6:55 AM EST Nursing Overnight Progress Note Significant Events During Shift Pt received bowel prep drank the 1 st bowel prep no BM says the prevalite stop the diarrhea. Educated pt to drink the second bowel prep and that it was important for colonscopy. Pt still has not drink the bowel prep or had a BM. Pain medicine given prn round clock along with zofran. Patient/Family Concerns Evening/Overnight Visitors: none Concerns: drinking bowel prpe Assessment Nursing time demands: moderate IV access: has IV access, adequate and functioning Sitter requirements: no Mental Status No data found. Calls to Physician Team No data found. Medications [id number] - Medications Not Given (last 12 hrs) SITE UNKNOWN Medication Name Action Time Action Reason Comments heparin (porcine) injection 5,000 Units 12/04/19 2211 Not Given Patient/family refused heparin (porcine) injection 5,000 Units 12/05/19 0623 Not Given Patient/family refused Diet/Meals Consumed (past 24 hours) Nutrition Assessment for the past 24 hrs: Diet Type Feeding Percent Meals Eaten (%) 12/04/19 2019 -- -- 100 % 12/04/192230 Clear liquid Able to feed self -- * Ok Urbina RN - 12/04/2019 7:04 PM EST This nurse admitted the patient at 18:30. Patient remains stable in bed. MD aware patient on unit. Will continue to monitor. * Jesse Godinez RN - 12/03/2019 3:09 PM EST Pt to ED with c/o abd pain and c/o abd fistula secondary to her Crohns disease. Pt was schedule forGI apt but states she could not wait due to pain. Denies melena. documented in this encounter ED Notes * Mable Connelly RN - 12/04/2019 5:35 PM EST Ready and clean bed assigned to 8155. Pt updated on plan of care including transfer and is agreeable. Receiving RN may call [phone] to consult ED RN with questions regarding patients care. Pt is leaving the department in stable condition with all personal items in possession. Ordered medications that have been received from Pharmacy will not be tubed to receiving unit. The patient does not have a patient monitor at bedside in the ED. Most recent vitals: BP 113/66 Pulse 76 Temp 98 ??F (36.7 ??C) (Oral) Resp 17 SpO2 100% MABLE CONNELLY RN * Linda Royal RN - 12/04/2019 10:36 AM EST Bed: C36 Expected date: 12/04/19 Expected time: Means of arrival: Comments: D-16 * Sascha Winchester RN - 12/04/2019 4:00 AM EST Pt very upset. Pt reports that GI team has not spoken with her regarding the plan of care. Pt upsetthat she has continued diarrhea with no relief. Unable to console patient. Tried to reassure patient that we will continue to monitor her condition and share her concerns with the medical team. * Corrine Brock RN - 12/03/2019 9:58 PM EST Bed: D16U Expected date: 12/03/19 Expected time: 7:26 AM Means of arrival: Comments: V3 * Jasmin Muse RN - 12/03/2019 9:48 PM EST Paged admitting team about pain medication for patient. They are going to place an order shortly. Patient updated. documented in this encounter Miscellaneous Notes * Plan of Care - Masha Malagon RN - 12/07/2019 4:05 AM EST Problem: Fall Prevention Goal: Patient will remain free of falls Description Assess and monitor vitals signs, neurological status including level of consciousness and orientation. Reassess fall risk per hospital policy. Ensure arm band on, uncluttered walking paths in room, adequate room lighting, call light and overbed table within reach, bed in low position, wheels locked, side rails up per policy (excluding SNF),and non-skid footwear provided. Outcome: Progressing * Plan of Care - Ok Urbina RN - 12/06/2019 5:05 PM EST Problem: Knowledge Deficit Goal: Patient/family/caregiver demonstrates understanding of disease process, treatment plan, medications, and discharge instructions Description Complete learning assessment and assess knowledge base. Outcome: Progressing Problem: Fall Prevention Goal: Patient will remain free of falls Description Assess and monitor vitals signs, neurological status including level of consciousness and orientation. Reassess fall risk per hospital policy. Ensure arm band on, uncluttered walking paths in room, adequate room lighting, call light and overbed table within reach, bed in low position, wheels locked, side rails up per policy (excluding SNF),and non-skid footwear provided. Outcome: Progressing Problem: Acute Pain Description Patient's pain progressing toward patient's stated pain goal Goal: Patient displays improved well-being such as baseline levels for pulse, BP, respirations and relaxed muscle tone or body posture Outcome: Progressing * Care Coordination - ITA Stock LSW - 12/06/2019 11:34 AM EST Patient Support Tech met with GI team for daily rounds. Patient is not medically ready for discharge at this time. Anticipated to discharge over the weekend vs Friday 12/08. Currently in Endo for EGD/Colonoscopy. No identified SW needs upon discharge. SW will continue to follow patient, communicate with GI team, and assist with discharge planning. ITA Stock, [facility] Inpatient Patient Support Tech GI Service [phone] * Plan of Care - Adelaide Carmichael RN - 12/06/2019 3:41 AM EST Problem: Fall Prevention Goal: Patient will remain free of falls Description Assess and monitor vitals signs, neurological status including level of consciousness and orientation. Reassess fall risk per hospital policy. Ensure arm band on, uncluttered walking paths in room, adequate room lighting, call light and overbed table within reach, bed in low position, wheels locked, side rails up per policy (excluding SNF),and non-skid footwear provided. Outcome: Progressing * Plan of Care - Ok Urbina RN - 12/05/2019 4:40 PM EST Problem: Knowledge Deficit Goal: Patient/family/caregiver demonstrates understanding of disease process, treatment plan, medications, and discharge instructions Description Complete learning assessment and assess knowledge base. Outcome: Progressing Problem: Fall Prevention Goal: Patient will remain free of falls Description Assess and monitor vitals signs, neurological status including level of consciousness and orientation. Reassess fall risk per hospital policy. Ensure arm band on, uncluttered walking paths in room, adequate room lighting, call light and overbed table within reach, bed in low position, wheels locked, side rails up per policy (excluding SNF),and non-skid footwear provided. Outcome: Progressing Problem: Acute Pain Description Patient's pain progressing toward patient's stated pain goal Goal: Patient displays improved well-being such as baseline levels for pulse, BP, respirations and relaxed muscle tone or body posture Outcome: Progressing Goal: Patient will manage pain with the appropriate technique/intervention Description Assess and monitor patient's pain using appropriate pain scale. Collaborate with interdisciplinary team and initiate plan and interventions as ordered. Re-assess patient's pain level 30-60 minutes after pain management intervention. Outcome: Progressing * Care Coordination - ITA Stock LSW - 12/05/2019 11:06 AM EST Patient Support Tech met with GI team for daily rounds. Patient is not medically ready for discharge at this time. Scheduled to have EGD/Colonoscopy tomorrow. Anticipated to discharge in the next couple of days, home with no needs. No identified SW needs at this time, will cont to follow should any arise. SW will continue to follow patient, communicate with GI team, and assist with discharge planning. ITA Stock LSW Inpatient Patient Support Tech GI Service [phone] * Plan of Care - Skye Winchester RN - 12/05/2019 4:25 AM EST Problem: Knowledge Deficit Goal: Patient/family/caregiver demonstrates understanding of disease process, treatment plan, medications, and discharge instructions Description Complete learning assessment and assess knowledge base. Outcome: Progressing Problem: Fall Prevention Goal: Patient will remain free of falls Description Assess and monitor vitals signs, neurological status including level of consciousness and orientation. Reassess fall risk per hospital policy. Ensure arm band on, uncluttered walking paths in room, adequate room lighting, call light and overbed table within reach, bed in low position, wheels locked, side rails up per policy (excluding SNF),and non-skid footwear provided. Outcome: Progressing Problem: Acute Pain Description Patient's pain progressing toward patient's stated pain goal Goal: Patient displays improved well-being such as baseline levels for pulse, BP, respirations and relaxed muscle tone or body posture Outcome: Progressing Goal: Patient will manage pain with the appropriate technique/intervention Description Assess and monitor patient's pain using appropriate pain scale. Collaborate with interdisciplinary team and initiate plan and interventions as ordered. Re-assess patient's pain level 30-60 minutes after pain management intervention. Outcome: Progressing documented in this encounter Plan of Treatment Not on file documented as of this encounter Procedures Procedure Name Priority Date/Time Associated Diagnosis Comments EKG REPORT - SCAN 12/07/2019 12: 11 PM EST CLOSTRIDIUM DIFFICILE DNA AMPLIFICATION Routine 12/07/2019 2:05 AM EST ECG 12-LEAD (MUSE) Routine 12/06/2019 3: 35 PM EST RENAL FUNCTION PANEL W/EGFR Routine 12/06/2019 1:19 PM EST CBC Routine 12/06/2019 1:19 PM EST MAGNESIUM Routine 12/06/2019 1:19 PM EST ENDOSCOPY, COLON Routine 12/06/2019 11:5 6 AM EST DILATATION Routine 12/06/2019 11:36 AM EST ME COLONOSCOPY W/BIOPSY SINGLE/MULTIPLE Combo 12/06/2019 11:35 AM EST Crohn's Disease activity EGD WITH BIOPSY Combo 12/06/2019 11:35 AM EST Crohn's Disease activity SURGICAL PATHOLOGY EXAM Routine 12/06/2019 12:00 AM EST EKG REPORT - SCAN 12/05/2019 9:0 7 PM EST HEPATITIS B CORE ANTIBODY STAT 12/04/2019 6:37 AM EST HEPATITIS B SURFACE ANTIBODY, QUANTITATIVE STAT 12/04/2019 6:37 AM EST RENAL FUNCTION PANEL W/EGFR Routine 12/04/2019 6:35 AM EST APTT Routine 12/04/2019 6:35 AM EST PROTIME-INR Routine 12/04/2019 6:35 AM EST CBC Routine 12/04/2019 6:35 AM EST MAGNESIUM Routine 12/04/2019 6:35 AM EST ECG 12-LEAD (MUSE) STAT 12/03/2019 8: [address] ABDOMEN AND PELVIS WITH IV CONTRAST STAT 12/03/2019 5:17 PM EST HEPATIC FUNCTION PANEL STAT 0 3:34 PM EST SED RATE STAT 12/03/2019 3:34 PM EST LACTIC ACID, VENOUS, WHOLE BLOOD, [facility] STAT 12/03/2019 3:34 PM EST DIFFERENTIAL STAT 12/03/2019 3:34 PM EST CBC STAT 12/03/2019 3:34 PM EST C-REACTIVE PROTEIN Routine 12/03/2019 3: 34 PM EST PHOSPHORUS STAT 12/03/2019 3:34 PM EST MAGNESIUM STAT 12/03/2019 3:34 PM EST LIPASE STAT 12/03/2019 3:34 PM EST BASIC METABOLIC PANEL STAT 12/03/2019 3:34 PM EST ORDER FORM P-NUT NPSC - SCAN 12/03/2019 12:00 AM EST documented in this encounter Results * EKG REPORT - SCAN (12/07/2019 12:11 PM EST) us Scanning [place] SCAN DOCS - NO RESULTS Final Res ult * Clostridium difficile DNA Amplification (12/07/2019 2:05 AM EST) Clost. Diff DNA Amp. Negative Negative 12/07/2019 10:45 PM EST [facility] Comment:Positive indicates t oxigenic C. difficile was detected in the sample. Negative indicates that toxigenic C. difficile was not detected above the limit of the detection of the assay. The test methodology is a FDA approved DNA amplification assay. Stool specimen (specimen) FECES / Unknown 12/07/2019 2:05 AM EST 12/07/2019 6:40 AM EST Comment:F Bryant Carver MD BODY FLUIDS AND STOOL S ORDERABLES Final Result Performing Organization Address [facility] Co de Phone Number [facility] [address] * ECG 12 lead (MUSE) (12/06/2019 3:35 PM EST) 12/06/2019 3:35 PM EST Narrative MUSE - 12/07/2019 4:26 PM EST Ventricular Rate: ??109 ??BPM Atrial Rate: ??109 ??BPM P-R Interval: ??128 ??ms QRS Duration: ??66 ??ms QT: ??300 ??ms QTc: ??404 ??ms P [place]: ??78 ??degrees R [place]: ??43 ??degrees T [place]: ??62 ??degrees Diagnosis Line: ??SINUS TACHYCARDIA ^ POSSIBLE LEFT ATRIAL ENLARGEMENT ^ BORDERLINE ECG ^ COMPARED TO THE ECG OF 03-DEC-2019 20:31, ^ PREVIOUS ECG HAS UNDETERMINED RHYTHM, NEEDS REVIEW ^ Confirmed by Marcus LOWERY, LIZET ([id number]) on 12/07/2019 4:26:04 PM us Seble Paz MD ECG ORDERABLES Final Result Performing Organization Address City/[facility] Co de Phone Number MUSE * Magnesium, AM (12/06/2019 1:19 PM EST) Magnesium 2.0 1.5 - 2.5 mg/dL 12/06/2019 2:04 PM EST [facility] Plasma specimen (specimen) 12/06/2019 1:19 PM EST 12/06/2019 1:24 PM EST Marian Tate MD LAB BLOOD ORDERABLES F inal Result [facility] [address] [place], [place] [address] * (ABNORMAL) Renal Function Panel w/EGFR (12/06/2019 1:19 PM EST) Sodium 138 133 - 146 mmol/L 12/06/2019 2:04 PM EST [facility] Potassium 4.0 3.5 - 5.3 mmol/L 12/06/2019 2:04 PM EST [facility] Chloride 102 98 - 110 mmol/L 12/06/2019 2:04 PM EST [facility] CO2 28 21 - 33 mmol/L 12/06/2019 2:04 PM EST [facility] Anion Gap 8 3 - 16 mmol/L 12/06/2019 2:04 PM EST [facility] BUN 6(L) 7 - 25 mg/dL 12/06/2019 2:04 PM EST [facility] Creatinine 0.95 0.60 - 1.30 mg/dL 12/06/2019 2:04 PM EST [facility] Glucose 96 70 - 100 mg/dL 12/06/2019 2:04 PM EST [facility] Calcium 9.4 8.6 - 10.3 mg/dL 12/06/2019 2:04 PM EST [facility] Phosphorus 3.1 2.1 - 4.7 mg/dL 12/06/2019 2:04 PM EST [facility] Albumin 3.5 3.5 - 5.7 g/dL 12/06/2019 2:04 PM EST [facility] Osmolality, Calculated 283 278 - 305 mOsm/kg 12/06/2019 2:04 PM EST [facility] eGFR AA CKD-EPI 77 See note. 0 2:04 PM EST [facility] Comment: As of 2015 the estimated GFR is calculated from serum creatinine using the Chronic Kidney Disease Epidemiology Collaboration (CKD-EPI) equation in patients 18 years and older. ??The reference range is >60 mL/min/1.73m2. ??eGFR values greater than 90 will be reported as >90mL/min/1.73m2. Reference: Cosme Olivo Schmid CH, Zhang YL, Castro AF, 3rd, Feldman HI, et. al. A new equation to estimate glomerular filtration rate. ??Jenny Balancing Machine Set Up Worker Med. 2009:150(9):604-12 eGFR NONAA CKD-EPI 66 See note. 2019 2:04 PM EST [facility] Comment: As of 2015 the estimated GFR is calculated from serum creatinine using the Chronic Kidney Disease Epidemiology Collaboration (CKD-EPI) equation in patients 18 years and older. ??The reference range is >60 mL/min/1.73m2. ??eGFR values greater than 90 will be reported as >90mL/min/1.73m2. Reference: Cosme Olivo Schmid CH, Zhang YL, 3rd Lamar Feldman HI, et. al. A new equation to estimate glomerular filtration rate. ??Jenny Balancing Machine Set Up Worker Med. 2009:150(9):604-12 Plasma specimen (specimen) 12/06/2019 1:19 PM EST 12/06/2019 1:24 PM EST Marian Tate MD LAB BLOOD ORDERABLES F inal Result [facility] [address] [place] [address], [facility] * (ABNORMAL) CBC, AM (12/06/2019 1:19 PM EST) WBC 14.5(H) 3.8 - 10.8 10E3/uL 12/06/2019 1:44 PM EST [facility] RBC 5.34(H) 3.80 - 5.10 10E6/uL 12/06/2019 1:44 PM EST [facility] Hemoglobin 12.5 11.7 - 15.5 g/dL 12/06/2019 1:44 PM EST [facility] Hematocrit 40.4 35.0 - 45.0 % 12/06/2019 1:44 PM EST [facility] MCV 75.6(L) 80.0 - 100.0 fL 12/06/2019 1:44 PM EST [facility] MCH 23.4(L) 27.0 - 33.0 pg 12/06/2019 1:44 PM EST [facility] MCHC 31.0(L) 32.0 - 36.0 g/dL 12/06/2019 1:44 PM EST [facility] RDW 17.8(H) 11.0 - 15.0 % 12/06/2019 1:44 PM EST [facility] Platelets 287 140 - 400 10E3/uL 12/06/2019 1:44 PM EST [facility] MPV 6.7(L) 7.5 - 11.5 fL 12/06/2019 1:44 PM EST [facility] Whole blood specimen (specimen) 12/06/2019 1:19 PM EST 12/06/2019 1:24 PM EST us Marian Christopher Tate MD LAB BLOOD ORDERABLES F inal Result Performing Organization Address City/State/[facility] de Phone Number [facility] [address] * Endoscopy, colon, diagnostic (12/06/2019 11:56 AM EST) 12/06/2019 11:5 6 AM EST Narrative [facility] - 12/06/2019 4:02 PM EST [id number] Procedure Date: 12/06/2019 11:56 AM ? Patient Name: Marleni Rosales ? Date of : 1960 ? Admit [...] by ? the physician, the nurse, the industrial chemist and the ? tattoo technician in the procedure room. Mental Status [...] Procedure Code(s): ?? --- Professional --- ? 91876, GC, Colonoscopy, flexible; with biopsy, single or ? multiple Diagnosis Code(s): ?? --- Professional --- ? K50.80, Crohn's disease of both small and large ? intestine without complications ? K50.10, Crohn's disease of large intestine without ? complications CPT copyright 2016 [employer]. All rights reserved. The codes documented in this report are preliminary and upon personnel monitor review may be revised to meet current compliance requirements. Dae Campbell Maverick Campbell MD 12/06/2019 4:02:20 PM Vinnie Garcia MD Scope Withdrawal Time 0 hours 6 minutes 39 seconds Total Procedure Duration Time 0 hours 12 minutes 35 seconds Scope In: 12:04:23 PM Scope Out: 12:16:58 PM ? [address] [place], [place] [id number] us Attending Provider Unknown GI PROCEDURE ORDERABL ES Final Result [facility] [address] [facility] [place] [address] * DILATATION (12/06/2019 11:36 AM EST) 12/06/2019 11:3 6 AM EST Narrative [facility] - 12/06/2019 4:00 PM EST [id number] Procedure Date: 12/06/2019 11:36 AM ? Patient Name: Marleni Rosales ? Date of : 1960 ? Admit Type: Inpatient Age: 59 ? Gender: Female Note Status: Finalized ?Attending MD: Maverick Campbell MD Procedure: ? Upper GI endoscopy Indications: ? Esophageal dysphagia Patient Profile: ? 59 y/o female with history of ileocolonic Crohn's diease ? with multiple prior surgical resections not on an ? medications presenting for evaluation of Crohn's disease Providers: ? Vinnie Garcia MD (Fellow), Maverick Campbell MD Referring MD: ? Medicines: ? Monitored Anesthesia Care Complications: ? No immediate complications. Procedure: ? Pre-Anesthesia Assessment: ? - Prior [...] by ? the physician, the nurse, the industrial chemist and the ? tattoo technician in the procedure room. Mental Status [...] ? re-assessed after the procedure. ? After obtaining informed consent, the endoscope was ? passed under direct vision. Throughout the procedure, ? the patient's blood pressure, pulse, and oxygen ? saturations were monitored continuously. The Endoscope ? was introduced through the mouth, and advanced to the ? second part of duodenum. The upper GI endoscopy was ? accomplished without difficulty. The patient tolerated ? the procedure well. ? Findings: ? Diffuse candidiasis was found in the middle third of the esophagus and ? in the lower third of the esophagus. Biopsies were taken with a cold ? forceps for histology. ? Three non-bleeding linear gastric ulcers with a clean ulcer base ? (Jan Class III) were found in the gastric antrum. Biopsies were ? taken with a cold forceps for histology. ? The duodenal bulb, first portion of the duodenum and second portion of ? the duodenum were normal. ? Impression: ?- Monilial esophagitis. Biopsied. ? - Non-bleeding gastric ulcers with a clean ulcer base ? (Jan Class III). Biopsied. ? - Normal duodenal bulb, first portion of the duodenum ? and second portion of the duodenum. Recommendation: ?- Return patient to [facility] for ongoing care. ? - Resume previous diet. ? - Continue present medications. ? - Start fluconazole for candidasis ? - Await pathology results. ? Procedure Code(s): ?? --- Professional --- ? 48026, GC, Esophagogastroduodenoscopy, flexible, ? transoral; with biopsy, single or multiple Diagnosis Code(s): ?? --- Professional --- ? B37.81, Candidal esophagitis ? R13.14, Dysphagia, pharyngoesophageal phase ? K25.9, Gastric ulcer, unspecified as acute or chronic, ? without hemorrhage or perforation CPT copyright 2016 [employer]. All rights reserved. The codes documented in this report are preliminary and upon personnel monitor review may be revised to meet current compliance requirements. Attending Participation: ? I personally performed the entire procedure. ? Dae Adrian Robertoangel MD Adrian 12/06/2019 4:00:12 PM Vinnie Garcia Vinnie Garcia MD 12/06/2019 12:34:31 PM Total Procedure Duration Time 0 hours 9 minutes 39 seconds Scope In: 11:46:10 AM Scope Out: 11:55:49 AM ? [address] [place] [id number] us Attending Provider Unknown PROCEDURE/MINOR SURGI ZEUS ORDERABLES Final Result Performing Organization Address City/State/[facility] Co de Phone Number [facility] [address] [place] [address] * Surgical Pathology Exam (12/06/2019 12:00 AM EST) 12/06/2019 12/06/2019 Narrative [facility] - 12/06/2019 12:00 AM EST CASE: [id number] PATIENT: MARLENI ROSALES Clinical History: ?? egd with biopsy. colonoscopy w/ or w/o biopsy Pre-Operative Diagnosis: crohn's disease activity Post-Operative Diagnosis: ? None Given Specimen(s) Submitted: ?? A. gastric ulcer bx r/o crohns, CMV, HSV; B. esophageal bx r/o dory; C. anastamosis area biopsies r/o cmv ??HSV, evaluate for crohns; D. rectal biopsies - R/O CMV ??HSV, evaluate for Crohns CPT Code(s): ?? 79127 X 4; 28318 X 1; 60275 X 5; 28539 X 4 Additional Information: FINAL DIAGNOSIS: A. ?? Gastric ulcer, biopsy: - Moderate chronic gastritis without activity. - Negative for granuloma. - Immunostains for H. pylori, CMV, and HSV ae negative. - Negative for intestinal metaplasia or dysplasia. B. ?? Esophagus, biopsy: - Moderate acute esophagitis. - GMS stain demonstrates rare fungal elements, morphologically consistent with Dory. - Immunostains for CMV and HSV are negative C. ?? Anastomosis area, biopsy: - Fragments of granulation tissue with severe acute inflammation. - Immunostain for CMV is POSITIVE - Immunostain for HSV is negative. - Negative for malignancy. - See comment. D. ?? Rectum, biopsy: - Fragments of granulation tissue with severe acute inflammation. - Immunostains for CMV and HSV are negative. - Negative for malignancy. Comment: The findings of Dory in specimen B and CMV in specimen C were called to Dr. Maverick Campbell at 11:55am, on 12/10/2019. JW/vn Gross Description: A. ?? Received in formalin, labeled with the patient's name Marleni Rosales and gastric ulcer biopsies, rule out Crohn's CMV, HSV are three, pink-ford soft tissue fragments, ranging from 0.3 to 0.4 cm in greatest dimension that are filtered into a biopsy bag and submitted in cassette [id number] A1 with HP written on the side of the cassette. ??(Mildred Hernández, PT/vs) B. ?? Received in formalin, labeled with the patient's name Marleni Rosales and esophageal biopsy, rule out Dory is a 0.7 x 0.2 x 0.2 cm fragment of gldy-noq-kdnwh soft tissue that is filtered into a biopsy bag and submitted in cassette [id number] B1. ??(Mildred Hernández, PT/vs) C. ?? Received in formalin, labeled with the patient's name Yossi, Marleni and anastomosis area biopsy are multiple pink-ford soft tissue fragments, ranging from 0.2 to 0.4 cm in greatest dimension, measuring 1.7 cm in aggregate that is filtered into a biopsy bag and submitted in cassette [id number] C1. ??(Mildred Hernández, PT/vs) D. ?? Received in formalin, labeled with the patient's name Marleni Rosales and rectal biopsies are three, pink-ford soft tissue fragments, ranging from 0.3 to 0.4 cm in greatest dimension that are filtered into a biopsy bag and submitted in cassette [id number] D1. ??(Mildred Hernández, PT/vs) Microscopic Description: Eight HE and one GMS and nine immunostain (CMV x4 and HSV x4 on A1 to D1, H. pylori on A1) slides are examined. I, the attending pathologist, have personally reviewed all prosector/resident work and pathology slides to determine final diagnosis. Some tests use analyte-specific reagents (ASRs). These tests were developed and their performance characteristics determined by [facility]. They have not been cleared or approved by the US Food and Drug Administration. The FDA has determined that such clearance or approval is not necessary. These tests are used for clinical purposes. They should not be regarded as investigational or for research. Listed are IHC: CMV, EBV, HSV, PIN4, AE1/3/CAM 5.2, p504s, adenovirus. Probes consist of CAROL, kappa, lambda, HPV family 6, HPV family 16, SIS HER2/bety. Analyte-specific reagents (ASRs) were used in testing. These tests were developed and their performance characteristics determined by [facility] Pathology. They have not been cleared or approved by the US Food and Drug Administration. FDA does not require these tests to go through premarket FDA review. These tests are used for clinical purposes. They should not be regarded as investigational or for research. This laboratory is certified under the Clinical Laboratory Improvement Amendments (CLIA) as qualified to perform high complexity clinical laboratory testing. ?? Control Materials Reacted Appropriately. Final Diagnosis performed by DELORES LESTER MD, PhD Pathologist Electronically signed 12/10/2019 11:59:04 AM ?? The Pathologist signing this report is located at [facility], [address] [place] [address], [place], [place], [id number], , CLIA ID: [id number] us Maverick Campbell MD PATHOLOGY/CYTOLOGY OR DERABLES Final Result [facility] * EKG REPORT - SCAN (12/05/2019 9:07 PM EST) us Scanning [facility] SCAN DOCS - NO RESULTS Final Res ult * Hepatitis B Surface Antibody, Quantitative (12/04/2019 6:37 AM EST) HBSAB NUMBER <8.00 0.00 - 7.99 mIU/mL 12/04/2019 7:52 AM EST [facility] Hep B S Ab Nonreactive Nonreactive 12/04/2019 7:52 AM EST [facility] Serum specimen (specimen) 12/04/2019 6:37 AM EST 12/04/2019 6:46 AM EST Narrative [facility] - 12/04/2019 7:52 AM EST Individual is considered not immune to HBV infection. Seble Paz MD LAB BLOOD ORDERABLES Final Resul t Performing Organization Address [facility] Co de Phone Number [address] * Hepatitis B Core Antibody (12/04/2019 6:37 AM EST) Hep B Core Total Ab Nonreactive Nonreactive 12/04/2019 7:51 AM EST [facility] Comment:Health Department no tified in accordance with reportable infectious disease guidelines. Serum specimen (specimen) 12/04/2019 6:37 AM EST 12/04/2019 6:46 AM EST Narrative [facility] - 12/04/2019 7:51 AM EST A nonreactive final interpretation indicates that anti-HBc antibodies were not detected in the sample; it is possible that the individual is not infected with HBV. Seble Paz MD LAB BLOOD ORDERABLES Final Resul t Performing Organization Address [facility] Co de Phone Number [facility] [address] [place] [address] * (ABNORMAL) APTT, NO ANTICOAGULANT (12/04/2019 6:35 AM EST) aPTT 24.3(L) 25.5 - 35.0 seconds 12/04/2019 8:53 AM EST [facility] Plasma specimen (specimen) 12/04/2019 6:35 AM EST 12/04/2019 8:38 AM EST us Madeleine Monaco MD LAB BLOOD ORDERABLES Final Result Performing Organization Address [facility] de Phone Number [facility] [address] * (ABNORMAL) Protime-INR (12/04/2019 6:35 AM EST) Protime 15.6(H) 12.1 - 15.1 seconds 12/04/2019 8:52 AM EST [facility] INR 1.2(H) 0.9 - 1.1 12/04/2019 8:52 AM EST [facility] Comment: RECOMMENDED THERAPEUTIC RANGES USING INR : ?Stable oral anticoagulant therapy: ? 2.0 - 3.0 ?Mechanical prosthetic heart valve: ? 2.5 - 3.5 ?Recurrent acute myocardial infarction: ? 2.5 - 3.5 Plasma specimen (specimen) 12/04/2019 6:35 AM EST 12/04/2019 8:38 AM EST us Madeleine Monaco MD LAB BLOOD ORDERABLES Final Result Performing Organization Address [facility] de Phone Number [facility] [address] [facility]. [address] * Magnesium (12/04/2019 6:35 AM EST) Magnesium 1.8 1.5 - 2.5 mg/dL 12/04/2019 9:08 AM EST [facility] Plasma specimen (specimen) 12/04/2019 6:35 AM EST 12/04/2019 8:38 AM EST us Madeleine Monaco MD LAB BLOOD ORDERABLES Final Result [facility] [address] [place] [address], [facility] * (ABNORMAL) Renal Function Panel w/EGFR (12/04/2019 6:35 AM EST) Sodium 137 133 - 146 mmol/L 12/04/2019 9:08 AM EST [facility] Potassium 4.6 3.5 - 5.3 mmol/L 12/04/2019 9:08 AM EST [facility] Chloride 106 98 - 110 mmol/L 12/04/2019 9:08 AM EST [facility] CO2 26 21 - 33 mmol/L 12/04/2019 9:08 AM [facility] Anion Gap 5 3 - 16 mmol/L 12/04/2019 9:08 AM [facility] BUN 38(H) 7 - 25 mg/dL 12/04/2019 9:08 AM [facility] Creatinine 0.86 0.60 - 1.30 mg/dL 12/04/2019 9:08 AM [facility] Glucose 88 70 - 100 mg/dL 12/04/2019 9:08 AM EST [facility] Calcium 9.0 8.6 - 10.3 mg/dL 12/04/2019 9:08 AM EST [facility] Phosphorus 2.8 2.1 - 4.7 mg/dL 12/04/2019 9:08 AM [facility] Albumin 3.0(L) 3.5 - 5.7 g/dL 12/04/2019 9:08 AM [facility] Osmolality, Calculated 292 278 - 305 mOsm/kg 12/04/2019 9:08 AM [facility] eGFR AA CKD-EPI 86 See note. 0 9:08 AM EST [facility] Comment: As of 2015 the estimated GFR is calculated from serum creatinine using the Chronic Kidney Disease Epidemiology Collaboration (CKD-EPI) equation in patients 18 years and older. ??The reference range is >60 mL/min/1.73m2. ??eGFR values greater than 90 will be reported as >90mL/min/1.73m2. Reference: Cosme Olivo Schmid CH, Zhang YL, 3rd Lamar Feldman HI, et. al. A new equation to estimate glomerular filtration rate. ??Jenny Balancing Machine Set Up Worker Med. 2009:150(9):604-12 eGFR NONAA CKD-EPI 74 See note. 2019 9:08 AM EST [facility] Comment: As of 2015 the estimated GFR is calculated from serum creatinine using the Chronic Kidney Disease Epidemiology Collaboration (CKD-EPI) equation in patients 18 years and older. ??The reference range is >60 mL/min/1.73m2. ??eGFR values greater than 90 will be reported as >90mL/min/1.73m2. Reference: Cosme Olivo Schmid CH, Zhang YL, Castro AF, 3rd, Feldman HI, et. al. A new equation to estimate glomerular filtration rate. ??Jenny Balancing Machine Set Up Worker Med. 2009:150(9):604-12 Plasma specimen (specimen) 12/04/2019 6:35 AM EST 12/04/2019 8:38 AM EST Madeleine Monaco MD LAB BLOOD ORDERABLES Final Result [facility] [address] [place] [address], [facility] * (ABNORMAL) CBC (12/04/2019 6:35 AM EST) WBC 19.7(H) 3.8 - 10.8 10E3/uL 12/04/2019 8:50 AM EST [facility] RBC 4.46 3.80 - 5.10 10E6/uL 12/04/2019 8:50 AM EST [facility] Hemoglobin 10.4(L) 11.7 - 15.5 g/dL 12/04/2019 8:50 AM EST [facility] Hematocrit 33.6(L) 35.0 - 45.0 % 12/04/2019 8:50 AM EST [facility] MCV 75.2(L) 80.0 - 100.0 fL 12/04/2019 8:50 AM EST [facility] MCH 23.2(L) 27.0 - 33.0 pg 12/04/2019 8:50 AM EST [facility] MCHC 30.8(L) 32.0 - 36.0 g/dL 12/04/2019 8:50 AM EST [facility] RDW 17.8(H) 11.0 - 15.0 % 12/04/2019 8:50 AM EST [facility] Platelets 369 140 - 400 10E3/uL 12/04/2019 8:50 AM EST [facility] MPV 7.2(L) 7.5 - 11.5 fL 12/04/2019 8:50 AM EST [facility] Whole blood specimen (specimen) 12/04/2019 6:35 AM EST 12/04/2019 8:38 AM EST Madeleine Monaco MD LAB BLOOD ORDERABLES Final Result Performing Organization Address City/[facility]/ZIP Co de Phone Number [facility] [address] * ECG 12 lead (MUSE) (12/03/2019 8:31 PM EST) 12/03/2019 8:31 PM EST Narrative [facility] - 12/04/2019 7:35 AM EST Ventricular Rate: ??69 ??BPM Atrial Rate: ??69 ??BPM P-R Interval: ??104 ??ms QRS Duration: ??68 ??ms QT: ??366 ??ms QTc: ??392 ??ms P [place]: ??67 ??degrees R [place]: ??25 ??degrees T [place]: ??48 ??degrees Diagnosis Line: ??INTERPRETATION NOT AVAILABLE--ECG READ IN ER ^ Confirmed by PHYSICIAN, ER ([id number]), technical writer and editor SUNG CARTER ([id number]) on 12/04/2019 7:35:50 AM us Madeleine Monaco MD ECG ORDERABLES Final Resul t MUSE * CT Abdomen and Pelvis With IV contrast (12/03/2019 5:17 PM EST) Anatomical Region Laterality Modality Abdomen, Pelvis Computed Tomogra phy 12/03/2019 5:12 PM EST Impressions 12/03/2019 6:25 PM EST IMPRESSION: 1. ??Wall thickening and mucosal hyperenhancement of the rectum and proximal sigmoid colon with associated fat stranding consistent with active Crohn's disease. 2. ??Findings suspicious for rectovaginal fistula with free air seen in the uterus. 3. 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 4. ??Cholelithiasis. Approved by Akash King MD on 12/03/2019 5:55 PM EST I have personally reviewed the images and I agree with this report. Report Verified by: Andrés Kline MD at 12/03/2019 6:25 PM EST Narrative 12/03/2019 6:25 PM EST EXAM: CT ABDOMEN AND PELVIS WITH IV CONTRAST INDICATION: hx of crohn's, known hx of fistula with last scan 2014, worsening abdominal pain, TECHNIQUE: CT of the abdomen and pelvis was performed after the administration of intravenous contrast. Axial images were obtained with coronal and sagittal reconstructions. CONTRAST: 120 mL of IOHEXOL 350 MG IODINE/ML INTRAVENOUS SOLUTION administered intravenously FIELD OF VIEW: 36 cm COMPARISON: 08/22/2007 FINDINGS: Lower Chest: No focal consolidation or layering pleural effusions. Liver: No focal hepatic lesions. Biliary Tree: No intra or extra-hepatic biliary ductal dilatation. Cholelithiasis without CT evidence of cholecystitis. Spleen: Normal Pancreas: Normal Adrenal Glands: Normal Kidneys/Ureters/Bladder: The kidneys enhance symmetrically. There is no hydronephrosis or hydroureter. The urinary bladder is unremarkable. Gastrointestinal Tract: Surgical suture line along the colon in the lower abdomen. There is no evidence of obstruction. There is wall thickening and mucosal hyperenhancement of the rectum and proximal sigmoid colon. A fistulous tract is seen along the rectum/proximal sigmoid colon with extension through the soft tissues of the left buttock. Additional fistulous tract is seen along the rectum and vagina. Lymphatics: No abdominal or pelvic lymph nodes are enlarged by size criteria. Vasculature: Minimal atherosclerosis. Peritoneum/Retroperitoneum: No free fluid, free air, or loculated fluid collections. Fat stranding is seen along the proximal sigmoid colon and rectum. Abdominal Wall/Soft Tissues: Unremarkable. Genital Structures: Air is seen in the uterus consistent with rectovaginal fistula. Osseous Structures: No acute osseous abnormalities or suspicious osseous lesions. 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 Axial images were obtained withcoronal and sagittal reconstructions. CONTRAST: 120 mL of IOHEXOL 350 MG IODINE/ML INTRAVENOUS SOLUTIONadministered intravenously FIELD OF VIEW: 36 cm COMPARISON: 08/22/2007 FINDINGS: Lower Chest: No focal consolidation or layering pleural effusions. Liver: No focal hepatic lesions. Biliary Tree: No intra or extra-hepatic biliary ductal dilatation.Cholelithiasis without CT evidence of cholecystitis. Spleen: Normal Pancreas: Normal Adrenal Glands: Normal Kidneys/Ureters/Bladder: The kidneys enhance symmetrically. There is nohydronephrosis or hydroureter. The urinary bladder is unremarkable. Gastrointestinal Tract: Surgical suture line along the colon in the lowerabdomen. There is no evidence of obstruction. There is wall thickening andmucosal hyperenhancement of the rectum and proximal sigmoid colon. Afistulous tract is seen along the rectum/proximal sigmoid colon withextension through the soft tissues of the left buttock. Additionalfistulous tract is seen along the rectum and vagina. Lymphatics: No abdominal or pelvic lymph nodes are enlarged by sizecriteria. Vasculature: Minimal atherosclerosis. Peritoneum/Retroperitoneum: No free fluid, free air, or loculated fluidcollections. Fat stranding is seen along the proximal sigmoid colon andrectum. Abdominal Wall/Soft Tissues: Unremarkable. Genital Structures: Air is seen in the uterus consistent with rectovaginalfistula. Osseous Structures: No acute osseous abnormalities or suspicious osseouslesions. IMPRESSION: 1. Wall thickening and mucosal hyperenhancement of the rectum andproximal sigmoid colon with associated fat stranding consistent withactive Crohn's disease. 2. Findings suspicious for rectovaginal fistula with free air seen in theuterus. 3. 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 4. Cholelithiasis. Approved by Akash King MD on 12/03/2019 5:55 PM EST I have personally reviewed the images and I agree with this report. Report Verified by: Andrés Kline MD at 12/03/2019 6:25 PM EST Alden Tena MD IMG CT ORDERABLES Final Resu lt * (ABNORMAL) C-reactive protein (12/03/2019 3:34 PM EST) CRP 15.0(H) 1.0 - 10.0 mg/L 12/03/2019 4:39 PM EST [facility] Plasma specimen (specimen) 12/03/2019 3:34 PM EST 12/03/2019 3:37 PM EST Alden Tena MD LAB BLOOD ORDERABLES Final R esult Performing Organization Address City/[facility]/ZIP Co de Phone Number [address] * ESR (12/03/2019 3:34 PM EST) Sed Rate 21 0 - 30 mm/hr 12/03/2019 6:24 PM EST [facility] Whole blood specimen (specimen) 12/03/2019 3:34 PM EST 12/03/2019 5:00 PM EST Alden Tena MD LAB BLOOD ORDERABLES Final R esult Performing Organization Address City/[facility]/ZIP Co de Phone Number [address] * Phosphorus (12/03/2019 3:34 PM EST) Phosphorus 3.3 2.1 - 4.7 mg/dL 12/03/2019 4:39 PM EST [facility] Plasma specimen (specimen) 12/03/2019 3:34 PM EST 12/03/2019 3:37 PM EST Alden Tena MD LAB BLOOD ORDERABLES Final R esult [facility] [address] * Magnesium (12/03/2019 3:34 PM EST) Magnesium 1.6 1.5 - 2.5 mg/dL 12/03/2019 4:39 PM EST [facility] Plasma specimen (specimen) 12/03/2019 3:34 PM EST 12/03/2019 3:37 PM EST Alden Tena MD LAB BLOOD ORDERABLES Final R esult [facility] [address] [facility]. [address] * Lactic acid, venous, whole blood (12/03/2019 3:34 PM EST) Lactate, Hari 2.2 0.5 - 2.2 mmol/L 12/03/2019 3:38 PM EST [facility] Whole blood specimen (specimen) 12/03/2019 3:34 PM EST 12/03/2019 3:37 PM EST Alden Tena MD LAB BLOOD ORDERABLES Final R esult Performing Organization Address City/[facility]/ZIP Co de Phone Number [facility] [address] [facility]. [address] * Lipase (12/03/2019 3:34 PM EST) Lipase 45 4 - 82 U/L 12/03/2019 4:3 9 PM EST [facility] Plasma specimen (specimen) 12/03/2019 3:34 PM EST 12/03/2019 3:37 PM EST Alden Tena MD LAB BLOOD ORDERABLES Final R esult [facility] [address] [facility]. [address] * (ABNORMAL) Hepatic Function Panel (12/03/2019 3:34 PM EST) Total Bilirubin 0.4 0.0 - 1.5 mg/dL 12/03/2019 4:39 PM EST [facility] Bilirubin, Direct 0.12 0.00 - 0.40 mg/dL 12/03/2019 4:39 PM EST [facility] AST 14 13 - 39 U/L 12/03/2019 4:39 PM EST [facility] ALT 45 7 - 52 U/L 12/03/2019 4:39 PM EST [facility] Alkaline Phosphatase 77 36 - 125 U/L 12/03/2019 4:39 PM EST [facility] Total Protein 6.3(L) 6.4 - 8.9 g/dL 12/03/2019 4:39 PM EST [facility] Albumin 3.5 3.5 - 5.7 g/dL 12/03/2019 4:39 PM EST [facility] Bilirubin, Indirect 0.28 0.00 - 1.10 mg/dL 12/03/2019 4:39 PM EST [facility] Plasma specimen (specimen) 12/03/2019 3:34 PM EST 12/03/2019 3:37 PM EST us Alden Tena MD LAB BLOOD ORDERABLES Final R esult Performing Organization Address City/State/[facility] Co de Phone Number [facility] [address] * (ABNORMAL) Differential (12/03/2019 3:34 PM EST) Neutrophils Relative 94.0(H) 40.0 - 80.0 % 12/03/2019 5:07 PM EST [facility] Lymphocytes Relative 3.4(L) 15.0 - 45.0 % 12/03/2019 5:07 PM EST [facility] Monocytes Relative 2.5 0.0 - 12.0 % 12/03/2019 5:07 PM EST [facility] Eosinophils Relative 0.0 0.0 - 8.0 % 12/03/2019 5:07 PM EST [facility] Basophils Relative 0.1 0.0 - 1.0 % 12/03/2019 5:07 PM EST [facility] nRBC 0 0 - 0 /100 WBC 12/03/2019 5:07 PM EST [facility] Neutrophils Absolute 14,852(H) 1,500 - 7,800 /uL 12/03/2019 5:07 PM [facility] Lymphocytes Absolute 537(L) 850 - 3,900 /uL 12/03/2019 5:07 PM EST [facility] Monocytes Absolute 395 200 - 950 /uL 12/03/2019 5:07 PM EST [facility] Eosinophils Absolute 0(L) 15 - 500 /uL 12/03/2019 5:07 PM [facility] Basophils Absolute 16 0 - 200 /uL 12/03/2019 5:07 PM [facility] Whole blood specimen (specimen) 12/03/2019 3:34 PM EST 12/03/2019 5:00 PM EST Alden Tena MD LAB BLOOD ORDERABLES Final R esult Performing Organization Address City/State/[facility] Co de Phone Number [facility] [address] * (ABNORMAL) CBC (12/03/2019 3:34 PM EST) WBC 15.8(H) 3.8 - 10.8 10E3/uL 12/03/2019 5:07 PM [facility] RBC 5.02 3.80 - 5.10 10E6/uL 12/03/2019 5:07 PM [facility] Hemoglobin 11.5(L) 11.7 - 15.5 g/dL 12/03/2019 5:07 PM [facility] Hematocrit 37.9 35.0 - 45.0 % 12/03/2019 5:07 PM [facility] MCV 75.5(L) 80.0 - 100.0 fL 12/03/2019 5:07 PM [facility] MCH 22.9(L) 27.0 - 33.0 pg 12/03/2019 5:07 PM [facility] MCHC 30.3(L) 32.0 - 36.0 g/dL 12/03/2019 5:07 PM [facility] RDW 17.8(H) 11.0 - 15.0 % 12/03/2019 5:07 PM [facility] Platelets 422(H) 140 - 400 10E3/uL 12/03/2019 5:07 PM EST [facility] MPV 7.1(L) 7.5 - 11.5 fL 12/03/2019 5:07 PM EST [facility] Whole blood specimen (specimen) 12/03/2019 3:34 PM EST 12/03/2019 5:00 PM EST Alden Tena MD LAB BLOOD ORDERABLES Final R esult [facility] [address] [id number] * (ABNORMAL) Basic metabolic panel (12/03/2019 3:34 PM EST) Sodium 137 133 - 146 mmol/L 12/03/2019 4:39 PM EST [facility] Potassium 4.4 3.5 - 5.3 mmol/L 12/03/2019 4:39 PM [facility] Chloride 106 98 - 110 mmol/L 12/03/2019 4:39 PM [facility] CO2 24 21 - 33 mmol/L 12/03/2019 4:39 PM [facility] Anion Gap 7 3 - 16 mmol/L 12/03/2019 4:39 PM [facility] BUN 46(H) 7 - 25 mg/dL 12/03/2019 4:39 PM [facility] Creatinine 1.06 0.60 - 1.30 mg/dL 12/03/2019 4:39 PM [facility] Glucose 159(H) 70 - 100 mg/dL 12/03/2019 4:39 PM [facility] Calcium 9.1 8.6 - 10.3 mg/dL 12/03/2019 4:39 PM [facility] Osmolality, Calculated 299 278 - 305 mOsm/kg 12/03/2019 4:39 PM [facility] eGFR AA CKD-EPI 67 See note. 0 4:39 PM EST [facility] Comment: As of 2015 the estimated GFR is calculated from serum creatinine using the Chronic Kidney Disease Epidemiology Collaboration (CKD-EPI) equation in patients 18 years and older. ??The reference range is >60 mL/min/1.73m2. ??eGFR values greater than 90 will be reported as >90mL/min/1.73m2. Reference: Cosme Olivo Schmid CH, Seferino GOODMAN, 3rd Lamar Feldman HI, et. al. A new equation to estimate glomerular filtration rate. ??Jenny [employer] Med. 2009:150(9):604-12 eGFR NONAA CKD-EPI 58 See note. 2019 4:39 PM EST [facility] Comment: As of 2015 the estimated GFR is calculated from serum creatinine using the Chronic Kidney Disease Epidemiology Collaboration (CKD-EPI) equation in patients 18 years and older. ??The reference range is >60 mL/min/1.73m2. ??eGFR values greater than 90 will be reported as >90mL/min/1.73m2. Reference: Cosme Olivo Schmid CH, Zhang YL, Castro AF, 3rd, Feldman HI, et. al. A new equation to estimate glomerular filtration rate. ??Jenny Balancing [employer] Worker Med. 2009:150(9):604-12 Plasma specimen (specimen) 12/03/2019 3:34 PM EST 12/03/2019 3:37 PM EST Alden Tena MD LAB BLOOD ORDERABLES Final R esult [facility] [address] [place] [address], [facility] * ORDER FORM P-NUT NPSC - SCAN (12/03/2019 12:00 AM EST) us Scanning Uchhim SCAN DOCS - NO RESULTS Final Res ult documented in this encounter Visit Diagnoses Not on filedocumented in this encounter Administered Medications Inactive Administered Medications - up to 3 most recent administrations Medication Order MAR Action Action Date Dose Rate Site acetaminophen (TYLENOL) tablet 650 mg 650 mg, Oral, Every 4 hours PRN, Pain Score (NRS) =, Fever, temp greater than 101 F or pain score NRS 1 - 10; use prior to opioids if opiods are also ordered, then reassess pain score within 90 minutes, Starting on Mon12/03/19 at 2039, Maximum dose of acetaminophen is 4000 mg (4 grams) from all sources in 24 hours. cholestyramine-aspartame (PREVALITE, QUESTRAN LIGHT) 4 gram packet 4 g 4 g, Oral, Daily, First dose on Mon12/06/19 at 1200, Therapeutic Interchange: cholestyramine (QUESTRAN) with sugar powder 4 gram = cholesytramine-aspartame (PREVALITE) 4 gram packet MAX 24 GRAMS PER DAY Given 12/07/2019 9:32 AM EST 4 g Given 12/06/2019 1:57 PM EST 4 g ciprofloxacin HCl (CIPRO) tablet 500 mg 500 mg, Oral, Every 12 hours scheduled (2 times per day), First dose on Mon12/04/19 at 1000 Given 12/07/2019 9:34 AM EST 500 mg Given 12/06/2019 10:13 PM EST 500 mg Given 12/06/2019 2:03 PM EST 500 mg fluconazole (DIFLUCAN) tablet 200 mg 200 mg, Oral, Daily, First dose on Mon12/07/19 at 0900, For 20 doses Given 12/07/2019 9:35 AM EST 200 mg heparin (porcine) injection 5,000 Units 5,000 Units, Subcutaneous, Every 8 hours scheduled (3 times per day), First dose on Mon12/03/19 at 2011 hydrocortisone (CORTEF) tablet 25 mg 25 mg, Oral, Daily, First dose on Mon12/04/19 at 0950 Given 12/07/2019 9:35 AM EST 25 mg Given 12/06/2019 1:58 PM EST 25 mg Given 12/05/2019 8:56 AM EST 25 mg lactated Ringers infusion 100 mL/hr, Intravenous, Continuous, Starting on Mon12/04/19 at 1002 New Bag 12/06/2019 6:34 AM EST 100 mL/hr 100 mL/hr New Bag 12/05/2019 7:47 PM EST 100 mL/hr 100 mL/hr New Bag 12/05/2019 10:18 AM EST 100 mL/hr 100 mL/hr metroNIDAZOLE (FLAGYL) tablet 500 mg 500 mg, Oral, Every 8 hours scheduled (3 times per day), First dose on Mon12/04/19 at 1458 Given 12/07/2019 12:47 PM EST 500 mg Given 12/07/2019 4:57 AM EST 500 mg Given 12/06/2019 10:13 PM EST 500 mg metroNIDAZOLE (METROCREAM) 0.75 % cream Topical, 2 times daily, First dose on Mon12/06/19 at 2100, Apply to delmi-anal area at site of fistula, Length of Therapy: 7 days, Reason for use of Non-Formulary Medication: 3-New Medication not currently on [facility] Formulary Given 12/07/2019 9:32 AM EST Given 12/06/2019 10:15 PM EST ondansetron (ZOFRAN) injection 4 mg 4 mg, Intravenous, Every 4 hours PRN, Nausea and/or Vomiting, Starting on Mon12/04/19 at 1746 Given 12/06/2019 6 :39 AM EST 4 mg Given 12/06/2019 2:36 AM EST 4 mg Given 12/05/2019 10:34 PM EST 4 mg pantoprazole (PROTONIX) EC tablet 40 mg 40 mg, Oral, Daily, First dose on Mon12/03/19 at 2328, Do Not Crush Given 12/07/2019 9:34 AM EST 40 mg Given 12/06/2019 1:59 PM EST 40 mg Given 12/05/2019 8:57 AM EST 40 mg proCHLORPERazine (COMPAZINE) injection 5 mg 5 mg, Intravenous, Every 6 hours PRN, Nausea and/or Vomiting, Starting on Mon12/06/19 at 0143 Given 12/06/2019 1:40 AM EST 5 mg sodium chloride flush 10 mL 10 mL, Intravenous, Every Shift, First dose on Mon12/03/19 at 2100 Given 12/06/2019 2:02 PM EST 10 mLs Given 12/06/2019 6:41 AM EST 10 mLs Given 12/05/2019 8:55 PM EST 10 mLs traMADoL (ULTRAM) tablet 50 mg 50 mg, Oral, Every 6 hours PRN, moderate pain (NRS-4-6), severe pain (NRS 7-10), Starting on Mon12/06/19 at 1142 Given 12/07/2019 11:16 AM EST 50 mg Given 12/07/2019 4:57 AM EST 50 mg Given 12/06/2019 10:29 PM EST 50 mg documented in this encounter Active and Recently Administered Medications Times are shown in EST. Scheduled Medication Order 12/05/2019 12/06/2019 12/07/2019 cholestyramine-aspartame (PREVALITE, QUESTRAN LIGHT) 4 gram packet 4 g (CANCELED) 4 g, Oral, 2 times daily, First dose on Mon12/04/19 at 0955, Therapeutic Interchange: cholestyramine (QUESTRAN) with sugar powder 4 gram = cholesytramine-aspartame (PREVALITE) 4 gram packet MAX 24 GRAMS PER DAY 0857 (Given - Provider: Rhonda Ordonez RN) cholestyramine-aspartame (PREVALITE, QUESTRAN LIGHT) 4 gram packet 4 g 4 g, Oral, Daily, First dose on Mon12/06/19 at 1200, Therapeutic Interchange: cholestyramine (QUESTRAN) with sugar powder 4 gram = cholesytramine-aspartame (PREVALITE) 4 gram packet MAX 24 GRAMS PER DAY 1357 (Given - Provider: Ok Urbina RN) 0932 (Given - Provider: Mylene Ho, ANGE) ciprofloxacin HCl (CIPRO) tablet 500 mg 500 mg, Oral, Every 12 hours scheduled (2 times per day), First dose on Mon12/04/19 at 1000 0856 (Given - Provider: Rhonda Ordonez RN)2053 (Given - Provider: Adelaide Carmichael RN) 1403 (Given - Provider: Ok Urbina RN)2213 (Given - Provider: Masha Malagon RN) 0934 (Given - Provider: Mylene Ho, ANGE) fluconazole (DIFLUCAN) tablet 200 mg 200 mg, Oral, Daily, First dose on Mon12/07/19 at 0900, For 20 doses 0935 (Given - Provider: Mylene Ho, ANGE) fluconazole (DIFLUCAN) tablet 400 mg (COMPLETED) 400 mg, Oral, Once, On Mon12/06/19 at 1300, For 1 dose 1547 (Given - Provider: Ok Urbina RN) heparin (porcine) injection 5,000 Units 5,000 Units, Subcutaneous, Every 8 hours scheduled (3 times per day), First dose on Mon12/03/19 at 2010 0623 (Not Given - Provider: Skye Winchester RN - Reason: Patient/family refused)1330 (Not Given - Provider: Ok Urbina RN - Reason: Patient/family refused)2053 (Not Given - Provider: Adelaide Carmichael RN - Reason: Patient/family refused) 0639 (Not Given - Provider: Adelaide Carmichael RN - Reason: Patient/family refused)1400 (Not Given - Provider: Ok Urbina RN - Reason: Patient/family refused)2214 (Not Given - Provider: Masha Malagon RN - Reason: Patient/family refused) 0501 (Not Given - Provider: Masha Malagon RN - Reason: Patient/family refused)1248 (Not Given - Provider: Mylene Ho RN - Reason: Patient/family refused) hydrocortisone (CORTEF) tablet 25 mg 25 mg, Oral, Daily, First dose on Mon12/04/19 at 0950 0856 (Given - Provider: Rhonda Ordonez RN) 1358 (Given - Provider: Ok Urbina RN) 0935 (Given - Provider: Mylene Ho, RN) magnesium citrate solution 296 mL (COMPLETED) 296 mL, Oral, Once, On Mon12/05/19 at 0200, For 1 dose 0446 (Given - Provider: Skye Winchester RN) magnesium citrate solution 296 mL (COMPLETED) 296 mL, Oral, Once, On Mon12/05/19 at 1800, For 1 dose 1727 (Given - Provider: Ok Urbina RN) magnesium citrate solution 296 mL (COMPLETED) 296 mL, Oral, Once, On Mon12/06/19 at 0200, For 1 dose 0600 (Given - Provider: Adelaide Carmichael RN) metroNIDAZOLE (FLAGYL) tablet 500 mg 500 mg, Oral, Every 8 hours scheduled (3 times per day), First dose on Mon12/04/19 at 1458 0617 (Given - Provider: Skye Winchester RN)1331 (Given - Provider: Ok Urbina RN)2054 (Given - Provider: Adelaide Carmichael RN) 0639 (Given - Provider: Adelaide Carmichael, ANGE)1358 (Given - Provider: Ok Urbina RN)2213 (Given - Provider: Masha Malagon RN) 0457 (Given - Provider: Masha Malagon RN)1247 (Given - Provider: Mylene Ho, ANGE) metroNIDAZOLE (METROCREAM) 0.75 % cream Topical, 2 times daily, First dose on Mon12/06/19 at 2100, Apply to delmi-anal area at site of fistula, Length of Therapy: 7 days, Reason for use of Non-Formulary Medication: 3-New Medication not currently on [facility] Formulary 2215 (Given - Provider: Masha Malagon RN) 0932 (Given - Provider: Mylene Ho, ANGE) morphine injection 2 mg (COMPLETED) 2 mg, Intravenous, Once, On Ashlie 12/05/19 at 0000, For 1 dose 0013 (Given - Provider: Skye Winchester RN) morphine injection 2 mg (COMPLETED) 2 mg, Intravenous, Once, On Mon12/06/19 at 0030, For 1 dose 0058 (Given - Provider: Adelaide Carmichael, ANGE) ondansetron (ZOFRAN) injection 4 mg (COMPLETED) 4 mg, Intravenous, Once, On Ashlie 12/05/19 at 0000, For 1 dose 0014 (Given - Provider: Skye Winchester RN) ondansetron (ZOFRAN) tablet 4 mg (COMPLETED) 4 mg, Oral, Once, On Mon12/06/19 at 2130, For 1 dose 2213 (Given - Provider: Masha Malagon RN) pantoprazole (PROTONIX) EC tablet 40 mg 40 mg, Oral, Daily, First dose on Mon12/03/19 at 2328, Do Not Crush 0857 (Given - Provider: Rhonda Ordonez RN) 1359 (Given - Provider: Ok Urbina, ANGE) 0934 (Given - Provider: Mylene Ho, ANGE) sodium chloride flush 10 mL(Linked Group 1) 10 mL, Intravenous, Every Shift, First dose on Mon12/03/19 at 2100 0618 (Given - Provider: Skye Winchester RN)1331 (Given - Provider: Ok Urbina, RN)2055 (Given - Provider: Adelaide Carmichael, ANGE) 0641 (Given - Provider: Adelaide Carmichael, ANGE)1402 (Given - Provider: Ok Urbina RN)2218 (Not Given - Provider: Masha Malagon RN - Reason: Loss of IV access) 0502 (Not Given - Provider: Masha Malagon RN - Reason: Loss of IV access)1248 (Not Given - Provider: Mylene Ho, ANGE - Reason: Contraindicated) Continuous Medication Order 12/05/2019 12/06/201912/07/2019 lactated Ringers infusion 100 mL/hr, Intravenous, Continuous, Starting on Mon12/04/19 at 1002 0019 (New Bag - Provider: Skye Winchester RN)1018 (New Bag - Provider: Ok Urbina RN)1947 (New Bag - Provider: Adelaide Carmichael, ANGE) 0634 (New Bag - Provider: Adelaide Carmichael, RN) PRN Medication Order 12/05/2019 12/06/2019 12/07/2019 acetaminophen (TYLENOL) tablet 650 mg 650 mg, Oral, Every 4 hours PRN, Pain Score (NRS) =, Fever, temp greater than 101 F or pain score NRS 1 - 10; use prior to opioids if opiods are also ordered, then reassess pain score within 90 minutes, Starting on Mon12/03/19 at 2039, Maximum dose of acetaminophen is 4000 mg (4 grams) from all sources in 24 hours. morphine injection 4 mg (CANCELED)(Linked Group 2) 4 mg, Intravenous, Every 4 hours PRN, moderate pain (NRS-4-6), severe pain (NRS 7-10), Starting on Mon12/04/19 at 1229, For 24 hours, If on IV and PO pain medications, use IV if patient cannot tolerate oral. 0206 (Given - Provider: Skye Winchester RN)0617 (Given - Provider: Skye Winchester RN)1015 (Given - Provider: Ok Urbina RN) morphine injection 4 mg (CANCELED) 4 mg, Intravenous, Every 4 hours PRN, severe pain (NRS 7-10), Starting on Ashlie 12/05/19 at 1101, For 1 day 22 hours, If on IV and PO pain medications, use IV if patient cannot tolerate oral. 1434 (Given - Provider: Ok Urbina RN)1829 (Given - Provider: Ok Urbina RN)2233 (Given - Provider: Adelaide Carmichael, ANGE) 0236 (Given - Provider: Adelaide Carmichael RN)0634 (Given - Provider: Adelaide Carmichael, ANGE)1408 (Given - Provider: Ok Urbina RN)1829 (Given - Provider: Ok Urbina RN) ondansetron (ZOFRAN) injection 4 mg 4 mg, Intravenous, Every 4 hours PRN, Nausea and/or Vomiting, Starting on Mon12/04/19 at 1746 0618 (Given - Provider: Skye Winchester, RN)1012 (Given - Provider: Ok Urbina, RN)1826 (Given - Provider: Ok Urbina RN)2234 (Given - Provider: Adelaide Carmichael, ANGE) 0236 (Given - Provider: Adelaide Carmichael, ANGE)0639 (Given - Provider: Adelaide Carmichael RN) proCHLORPERazine (COMPAZINE) injection 5 mg 5 mg, Intravenous, Every 6 hours PRN, Nausea and/or Vomiting, Starting on Mon12/06/19 at 0143 0140 (Given - Provider: Adelaide Carmichael RN) traMADoL (ULTRAM) tablet 50 mg 50 mg, Oral, Every 6 hours PRN, moderate pain (NRS-4-6), severe pain (NRS 7-10), Starting on Mon12/06/19 at 1142 2229 (Given - Provider: Masha Malagon RN) 0457 (Given - Provider: Masha Malagon RN)1116 (Given - Provider: Mylene Ho RN) Linked Groups Order Group 1: Place saline lock (CANCELED) STAT, Once, On Mon12/03/19 at 2008, For 1 occurrence And sodium chloride flush 10 mLJump to med 10 mL, Intravenous, Every Shift, First dose on Mon12/03/19 at 2100 Group 2: morphine injection 4 mg (CANCELED)Jump to med 4 mg, Intravenous, Every 4 hours PRN, moderate pain (NRS-4-6), severe pain (NRS 7-10), Starting on Mon12/04/19 at 1229, For 24 hours, If on IV and PO pain medications, use IV if patient cannot tolerate oral. documented in this encounter Care Teams Clinical Provider Trainer Relationship Specialty Start Date End Date Anand Merrill MD [address] [place] [id number] PCP - General Family Medicine 12/03/19 documented as of this encounter
--- OUTSIDE RECORDS SUMMARY | 2024-08-15 13:45 | XMS_ITS | Encounter Summary ---
Author Organization [facility] Address [address] [place] [address] Care Team Providers Care Under Sheriff Name Role Phone Damaso Black MD Primary Care Provider [phone] Source Comments This information has been disclosed [...] release of HIV test results or diagnoses. [id number] Reason for Visit * Reason Comments Prescription Issue Encounter Details Date Type Department Care Team (Late st Contact Info) Description 12/11/2019 Telephone [facility] [place] [facility] [address] [facility] [facility], [address] [place] [phone] Vinnie Garcia MD [address] [facility] [address] [place], [place] [id number] Prescription Issue Social History Tobacco Use Types Packs/Day Years Used Date Smoking Tobacco: Never Smokeless Tobacco: Never Comments No Sex and Gender Information Value Date Recorded Sex Assigned at Female 12/06/2019 8:50 AM EST Legal Sex Female 7:50 PM EST Gender Identity Female 12/06/2019 8:50 AM EST Sexual Orientation Not on file documented as of this encounter Progress Notes * Chloé Martínez MD - 12/11/2019 12:30 PM EDTAddended by: CHLOÉ MARTÍNEZ on: 12/11/2019 12:30 PM Modules accepted: Orders documented in this encounter Miscellaneous Notes * Telephone Encounter - Deb Valadez - 12/11/2019 9:18 AM EDT December 11, 2019 9:18 AM [facility] to advise of the following: ?? A script for valGANciclovir (VALCYTE) 450 mg tablet is unable to be processed as Faizan, is an unauthorized [place] provider. ?? She has requested the script be resubmitted by an authorized [place] provider. [facility] [phone] documented in this encounter Plan of Treatment Not on file documented as of this encounter Visit Diagnoses Not on filedocumented in this encounter Care Teams Under Sheriff Relationship Specialty Start Date End Date Damaso Black MD [address] [place] [address] PCP - General Family Medicine 12/03/19 documented as of this encounter
--- OUTSIDE RECORDS SUMMARY | 2024-08-15 13:45 | XMS_ITS | Encounter Summary ---
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 [id number] Reason for Visit * Reason Comments Abdominal Pain Diarrhea * Auth/Cert Specialty Diagnoses / Procedures Referred By Lata deal Referred To Contact Emergency Medicine [facility] Emergency Department [address] [place] [phone] Phone: tel: fax: Referral ID Status Reason Start Date Expiration Date Visits Re quested Visits Authorized [id number] 1 1 Encounter Details Date Type Department Care Team (Late st Contact Info) Description 12/03/2019 3:12 PM EST - 12/07/2019 1:00 PM EST Hospital Encounter [facility] [address] [place] [phone] Angel Owens MD [address] [facility] Emergency Dept [place], [place] [id number] Malina Paul MD Crohn's disease of small intestine with fistula ([facility]) (Primary Dx); Rectovaginal fistula; Diarrhea, unspecified type Discharge Disposition: Home or Self Care WITHOUT [...] Sign Reading Time Taken Comments Blood Pressure 118/70 12/07/2019 7:34 AM EST Pulse 75 12/07/2019 7:34 AM EST Temperature 36.7 ??C (98 ??F) 12/07/2019 7:34 AM EST Respiratory Rate 18 12/07/2019 7:34 AM EST Oxygen Saturation 98% 12/07/2019 7:34 AM EST Inhaled Oxygen Concentration 98% 12/07/2019 7 :34 AM EST Weight 52.8 kg (116 lb 6.4 oz) 12/04/2019 6:15 P M EST Height 157.5 cm (5' 2 ) 12/04/2019 6:15 PM EST Body Mass Index 21.29 12/04/2019 6:15 PM EST documented in this encounter Discharge Summaries * ITA Stock, INSURANCE COMMISSIONER - 12/07/2019 1:00 PM EST [facility] Air Chipper/Upper Trimmer Discharge Summary Patient name: Marleni Sy Patient : 1960 Age: 59 y.o. Gender: female Patient emergency contact: Extended Emergency Contact Information Primary Emergency Contact: ELOY BREWER Mobile Relation: Son Secondary Emergency Contact: PERNELL LUEVANOAN Mobile Relation: Father Attending provider: No att. providers found Primary care physician: ANAND MERRILL MD The MD has indicated that the patient is ready for discharge. Marleni Sy will be transportedhome by her son. Transfer [...] the multi-disciplinary team. ITA Stock, ALOK Inpatient [facility] Service [phone] * Marian Tate MD - 12/07/2019 12:15 PM EST Images from the original note were not included. [facility] Department of Internal Medicine Inpatient Discharge Summary Patient: Marleni Sy CSN: [id number] Date of Admission: 12/03/2019 Date of Discharge: [...] Case IDs Date Procedure Surgeon Location Status [id number] 12/05/19 EGD WITH COLONOSCOPY with GIF -- active Crohn's disease Antonietta Warner MD ENDOSCOPY Can [id number] 12/05/19 EGD WITH BIOPSY Chloé Martínez MD ENDOSCOPY Can [id number] 12/06/19 EGD WITH BIOPSY Maverick Campbell MD [...] These medications were sent to [facility] [address] [place] [address] [address] [address] ?? cholestyramine-aspartame 4 gram Pwpk packet ?? ciprofloxacin HCl 500 MG tablet ?? fluconazole 200 MG tablet ?? hydrocortisone 5 MG tablet ?? metroNIDAZOLE 0.75 % cream ?? metroNIDAZOLE 500 MG tablet You can get these medications from any pharmacy Bring a paper prescription for each of these medications ?? traMADoL 50 mg tablet Reason for Admission Marleni Sy is a 59 y.o. female with PMH [...] She saw an outpatient GI physician at [facility] who recommended colonoscopy and started her on [...] noted below: Note: This information is for [facility] Scheduling use only. It is not the responsibility of the primaryinpatient service to schedule this appointment. 1. Visit type:[facility] 2. Name of provider to schedule with: any available 3. Timing: The appointment should be scheduled in 2 weeks. 4. Location: [facility] 5. Ok to overbook if there are [...] MD - 12/07/2019 11:45 AM EST Marleni Sy, Here are your hospital discharge instructions: --> [...] Chief Complaint / Reason for Follow-Up Marleni Sy is a 59 y.o. female on hospital day 4. The principal reason for today's follow upvisit is Rectovaginal fistula. Interval History / Subjective Mrs. Sy is a 59 year old female with [...] 6:25 PM EST Assessment & Plan Marleni Sy is a 59 y.o. female on HD# 4 with Rectovaginal fistula. The medical issues being addressed in today's encounter are as follows: Principal Problem: Rectovaginal fistula Active Problems: Crohn's disease ([facility] Dx) #Crohn's disease Patient is presenting with [...] vagina. She was evaluated by GI at [facility] who recommended colonoscopy, but patient refused. Hep [...] PPI. She was evaluated by GI at [facility] 11/2019 who placed her on sucralfate which [...] Chief Complaint / Reason for Follow-Up Marleni Sy is a 59 y.o. female on hospital day 3. The principal reason for today's follow upvisit is Rectovaginal fistula. Interval History / Subjective Mrs. Sy is a 59 year old female with [...] Intake/Output Summary (Last 24 hours) at 12/06/2019 0747 Last data filed at 12/06/2019 0634 Gross [...] 6:25 PM EST Assessment & Plan Marleni Sy is a 59 y.o. female on HD# 3 with Rectovaginal fistula. The medical issues being addressed in today's encounter are as follows: Principal Problem: Rectovaginal fistula Active Problems: Crohn's disease ([facility] Dx) #Crohn's disease Patient is presenting with [...] vagina. She was evaluated by GI at [facility] who recommended colonoscopy, but patient refused. Hep [...] PPI. She was evaluated by GI at [facility] 11/2019 who placed her on sucralfate which she reports caused her to have trouble with swallowing. She is asymptomatic and denies any GERD symptoms. - EGD today demonstrated a single gastric ulcer which was biopsied. Her esohagus demonstrated signsof dory esophagitis. #Dory Esophagitis EGD performed on 12/05 demonstrated doyr esophagitis. Was loaded with fluconazole 400mg, then started on fluconazole 200mg daily the following day for a total course of 21 days (EOT 12/26/19). Fluids: : LR 100 mL/hour Electrolyte: Replace PRN Lines: PIV Nutrition: Diet Orders Diet NPO past midnight Except for: for procedure starting at 12/04 6279 GI/ ppx: Protonix 40 mg PO daily DVT ppx: Heparin subQ Code Status: DNC-A Signed: YAMILETH BIRD MD 12/06/2019, 7:47 AM [...] Chief Complaint / Reason for Follow-Up Marleni Sy is a 59 y.o. female on hospital day 2. The principal reason for today's follow upvisit is Rectovaginal fistula. Interval History / Subjective Mrs. Sy is a 59 year old female with [...] 12/03/2019 \ 0.4 / \ 0.12 / \ / 45 / \ / 77 [...] 6:25 PM EST Assessment & Plan Marleni Sy is a 59 y.o. female on HD# 2 with Rectovaginal fistula. The medical issues being addressed in today's encounter are as follows: Principal Problem: Rectovaginal fistula Active Problems: Crohn's disease ([facility] Dx) #Crohn's disease Patient is presenting with [...] vagina. She was evaluated by GI at [facility] who recommended colonoscopy, but patient refused. Hep [...] PPI. She was evaluated by GI at [facility] 11/2019 who placed her on sucralfate which [...] daily DVT ppx: Heparin subQ Code Status: DNC-A Signed: MARIAN TATE MD 12/05/2019, 7:58 AM [...] Garcia MD - 12/06/2019 10:04 AM EST [facility] PRE-SEDATION ASSESSMENT, HISTORY & PHYSICAL Date: 12/06/2019 Marleni Sy is a 59 y.o. year old female [...] Provider, dyclonine HCl (SUCRETS SORE THROAT MM) tabithaonine Historical Provider, pantoprazole (PROTONIX) 40 MG tablet 10/18/19 Historical ProviderMD predniSONE (DELTASONE) 20 MG tablet 11/27/19 Historical [...] and confirm it. Chloé Martínez MD, MS Gas Cutting Machine Operator Division of Digestive Diseases Pager: [phone] * Omar MD - 12/03/2019 10:28 PM EST Images from the original note were not included. Department of Internal Medicine History & Physical Patient: Marleni Sy [facility]: [id number] Chief Complaint Diarrhea History of Present Illness Marleni Sy is a 59 y.o. female with PMH [...] within a 2 hour time frame. Ms. Sy is severely distressed by the diarrhea because [...] with abd pain. Pt saw surgery at [facility] on 11/07/19 where she was [...] Medical History: Diagnosis Date ??? Crohn's colitis ([facility] Dx) ??? Fistula Past Surgical History No [...] 6:25 PM EST Assessment & Plan Marleni Sy is a 59 y.o. female with PMH [...] Diet NPO past midnight starting at 12/02 8507 Prophylaxis: GI/ ppx: PPI DVT ppx: SQ heparin Code Status: [facility]KE [facility] Dispo: stable Bon Valdovinos, PGY-1 Internal Medicine P: [phone] Cosigned by Keenan Reeves MD at 12/04/2019 3:46 PM EST Associated attestation - Keenan Reeves MD - 12/04/2019 3:46 PM EST 59 yo female with Crohns disease for at as 20 years. Has had multiple intestinal surgeries [...] Tena MD - 12/03/2019 3:06 PM EST [facility] ED Note Date of service: 12/03/2019 Reason for Visit: Abdominal Pain and Diarrhea Patient History HPI: Marleni Sy is a 59 y.o. female with PMHx [...] Medical History: Diagnosis Date ??? Crohn's colitis ([facility] Dx) ??? Fistula No past surgical history on file. Marleni Sy has no history on file for tobacco, [...] Department Procedures ED Course and MDM Marleni Sy is a 59 y.o. female with a [...] Crohn's disease of small intestine with fistula ([facility] Dx) Alden Tena MD Resident 12/03/192123 Cosigned by Angel Owens MD at 12/03/2019 11:12 PM EST documented in this encounter Procedure Notes * Maverick Campbell MD - 12/06/2019 11:56 AM EST [id number] Procedure Date: 12/06/2019 11:56 AM Patient Name: Marleni Sy Date of : 1960 Admit Type: Inpatient [...] verified by the physician, the nurse, the manager special events and the motion picture camera lens technician in the procedure room. Mental Status [...] present medications. Procedure Code(s): --- Professional --- 95272, GC, Colonoscopy, flexible; with biopsy, single or multiple Diagnosis Code(s): --- Professional --- K50.80, Crohn's disease of both small and large intestine without complications K50.10, Crohn's disease of large intestine without complications CPT copyright 2016 [employer]. All rights reserved. The codes documented in this report are preliminary and upon recreation officer review may be revised to meet current compliance requirements. Dae Campbell Maverick Campbell MD 12/06/2019 4:02:20 PM Vinnie Garcia MD Scope Withdrawal Time 0 hours 6 minutes 39 seconds Total Procedure Duration Time 0 hours 12 minutes 35 seconds Scope In: 12:04:23 PM Scope Out: 12:16:[address] [place], [place] [id number] * Maverick Campbell MD - 12/06/2019 11:36 AM EST [id number] Procedure Date: 12/06/2019 11:36 AM Patient Name: Marleni Sy Date of : 1960 Admit Type: Inpatient [...] verified by the physician, the nurse, the manager special events and the motion picture camera lens technician in the procedure room. Mental Status [...] pathology results. Procedure Code(s): --- Professional --- 74332, GC, Esophagogastroduodenoscopy, flexible, transoral; with biopsy, single or multiple Diagnosis Code(s): --- Professional --- B37.81, Candidal esophagitis R13.14, Dysphagia, pharyngoesophageal phase K25.9, Gastric ulcer, unspecified as acute or chronic, without hemorrhage or perforation CPT copyright 2016 [employer]. All rights reserved. The codes documented in this report are preliminary and upon recreation officer review may be revised to meet current compliance requirements. Attending Participation: I personally performed the entire procedure. Dae Campbell Maverick Campbell MD 12/06/2019 4:00:12 PM Vinnie Garcia Vinnie Garcia MD 12/06/2019 12:34:31 PM Total Procedure Duration Time 0 hours 9 minutes 39 seconds Scope In: 11:46:10 AM Scope Out: 11:55:[address] [place] [address] documented in this encounter Consult Notes * [...] Surgery History and Physical/Consultation Note Patient: Marleni Sy CSN: [id number] History CC: Rectovaginal fistula HPI: Marleni Sy is a 59 y.o. female with H Crohn's disease, etoh abuse, anxiety/depression who presents [...] relief of symptoms. Pt saw surgery at [facility] on 11/07/19 where she was [...] Medical History: Diagnosis Date ??? Crohn's colitis ([facility] Dx) ??? Fistula PSH: No past surgical [...] file Gets together: Not on file Attends synagogue service: Not on file Active member of [...] -- 0.12 ALBUMIN 3.0* 3.5 Invalid input(s): [facility] Imaging Studies Ct Abdomen And Pelvis [...] 6:25 PM EST Assessment and Plan Marleni Sy is a 59 y.o. female with PMH [...] Herbert Escobar MD General Surgery Resident Pager: [phone] 12/04/2019 1:35 PM Cosigned by Pancho Gupta [...] her chances of worsening short gut * Arpita Mccann, RIDING COACH, INSURANCE COMMISSIONER - 12/04/2019 10:19 AM EST [facility] Social Work Psychosocial Assessment Marleni Sy [id number] 59 y.o. female White or Marital Status: No admission diagnoses are documented for this encounter. Referred by: GI Service Referred Reason: Psychosocial/Discharge Planning History Past Medical History: Diagnosis Date ??? Crohn's colitis (CMS Dx) ??? Fistula Social History Substance and [...] Living Arrangement: Home/Apartment Support Systems Next of Kin/School Leader: Eloy Peresz Next of Kin Relationship: Son Next of Kin Steven Luevano, father, Community Resources Used Prior to Admission: No Cultural/Spiritual/Language Barriers Buddhism/Cultural Factors: Confucianist Other Pertinent Data Air Chipper for Mental Health IssuesPrior to Admission: No Durable Medical Equipment Prior to Admission: [place]/number of PCP: Anand Merrill [phone] Pharmacy: [facility] [phone] Assessment/Plan Per H&P documentation: Marleni Sy is a 59 y.o. female with PMH Crohn's disease, etoh abuse, anxiety/depression who presents with worsening diarrhea. SW met with patient at bedside to complete psychosocial assessment. Her son, Eloy, also present.SW introduced self, explained role, and verified demographic information. Patient is a 59 year old female who currently resides alone at her home located in [place], [place]. Per chart patient is un employed. [...] She stated she [facility] to [facility] to [facility] as she is not receiving timely care. [...] care services and no previous placements at fpc facility and/or inpatient rehab program. Patient reports [...] the multi-disciplinary team. ITA Stock, ALOK Inpatient [facility] Service [phone] documented in this encounter Nursing Notes * [...] Provider Time Response Received From Provider 12/06/19 215 Other (Comment) Other (please see comments) bryant Carver Resident Other (Comment)Other (Comment) -- -- 12/06/19 2300 Patient/Family request Other (please see comments) Bryant Carver Resident Other (Comment) Other (Comment) [phone] Medications [id number] - Medications Not Given (last 12 hrs) SITE UNKNOWN Medication Name Action Time Action Reason Comments heparin (porcine) injection 5,000 Units 12/06/192213 Not Given Patient/family refused sodium chloride flush 10 mL (And Linked Group #1) 12/06/192217 Not Given Loss of IV access Diet/Meals [...] Comments heparin (porcine) injection 5,000 Units 12/05/19 2054 Not Given Patient/family refused heparin (porcine) injection [...] and is agreeable. Receiving RN may call [phone] to consult ED RN with questions regarding [...] RN - 12/04/2019 10:36 AM EST Bed: C36U Expected date: 12/04/19 Expected time: Means of [...] Outcome: Progressing * Care Coordination - ITA Stock, ALOK - 12/06/2019 11:34 AM EST Upper Trimmer met with GI team for daily rounds. Patient is not medically ready for discharge at this time. Anticipated to discharge over the weekend vs Friday 12/08. Currently in Endo for EGD/Colonoscopy. No identified SW needs upon discharge. SW will continue to follow patient, communicate with GI team, and assist with discharge planning. ITA Stock, ALOK Inpatient [facility] GI Service [phone] * Plan of Care - Adelaide Carmichael [...] Stock LSW - 12/05/2019 11:06 AM EST Upper Trimmer met with GI team for daily rounds. [...] with discharge planning. ITA Stock LSW Inpatient [facility] GI Service [phone] * Plan of Care - Skye Winchester [...] EST DILATATION Routine 12/06/2019 11:36 AM EST DE COLONOSCOPY W/BIOPSY SINGLE/MULTIPLE Combo 12/06/2019 11:35 AM [...] PM EST LACTIC ACID, VENOUS, WHOLE BLOOD, [facility] STAT 12/03/2019 3:34 PM EST DIFFERENTIAL STAT [...] SCAN (12/07/2019 12:11 PM EST) us Scanning Uchhim SCAN DOCS - NO RESULTS Final Res ult * Clostridium difficile DNA Amplification (12/07/2019 2:05 AM EST) Clost. Diff DNA Amp. Negative Negative 12/07/2019 10:45 PM EST [facility] Comment:Positive indicates t oxigenic C. difficile [...] S ORDERABLES Final Result Performing Organization Address [facility] Co de Phone Number [facility] [address] * ECG 12 lead (MUSE) (12/06/2019 3:35 PM EST) 12/06/2019 3:35 PM EST Narrative MUSE - 12/07/2019 4:26 PM EST Ventricular Rate: ??109 ??BPM Atrial Rate: ??109 ??BPM P-R Interval: ??128 ??ms QRS Duration: ??66 ??ms QT: ??300 ??ms QTc: ??404 ??ms P Durham: ??78 ??degrees R Durham: ??43 ??degrees T Durham: ??62 ??degrees Diagnosis Line: ??SINUS TACHYCARDIA ^ POSSIBLE LEFT ATRIAL ENLARGEMENT ^ BORDERLINE ECG ^ COMPARED TO THE ECG OF 03-DEC-2019 20:31, ^ PREVIOUS ECG HAS UNDETERMINED RHYTHM, NEEDS REVIEW ^ Confirmed by Marcus LOWERY TEHMINA ([id number]) on 12/07/2019 4:26:04 PM Seble Paz MD ECG ORDERABLES Final Result Performing Organization Address [facility] Co de Phone Number MUSE * Magnesium, AM (12/06/2019 1:19 PM EST) Magnesium 2.0 1.5 - 2.5 mg/dL 12/06/2019 2:04 PM EST [facility] Plasma specimen (specimen) 12/06/2019 1:19 PM EST 12/06/2019 1:24 PM EST Marian Tate MD LAB BLOOD ORDERABLES F inal Result [facility] [address] [address], [facility] * (ABNORMAL) Renal Function Panel w/EGFR (12/06/2019 1:19 PM EST) Sodium 138 133 - 146 mmol/L 12/06/2019 2:04 PM EST [facility] Potassium 4.0 3.5 - 5.3 mmol/L 12/06/2019 2:04 PM EST [facility] Chloride 102 98 - 110 mmol/L 12/06/2019 2:04 PM EST [facility] CO2 28 21 - 33 mmol/L 12/06/2019 2:04 PM EST [facility] Anion Gap 8 3 - 16 mmol/L 12/06/2019 2:04 PM EST [facility] BUN 6(L) 7 - 25 mg/dL 12/06/2019 2:04 PM EST [facility] Creatinine 0.95 0.60 - 1.30 mg/dL 12/06/2019 2:04 PM EST [facility] Glucose 96 70 - 100 mg/dL 12/06/2019 2:04 PM EST [facility] Calcium 9.4 8.6 - 10.3 mg/dL 12/06/2019 2:04 PM EST [facility] Phosphorus 3.1 2.1 - 4.7 mg/dL 12/06/2019 2:04 PM EST [facility] Albumin 3.5 3.5 - 5.7 g/dL 12/06/2019 2:04 PM EST [facility] Osmolality, Calculated 283 278 - 305 mOsm/kg 12/06/2019 2:04 PM EST [facility] eGFR AA CKD-EPI 77 See note. 0 2:04 PM EST [facility] Comment: As of 2015 the estimated GFR is calculated from serum creatinine using the Chronic Kidney Disease Epidemiology Collaboration (CKD-EPI) equation in patients 18 years and older. ??The reference range is >60 mL/min/1.73m2. ??eGFR values greater than 90 will be reported as >90mL/min/1.73m2. Reference: Mary Beth , Cosme LA, Baldemar CH, Seferino YL, Lavelle AF, 3rd, Asim HI, et. al. A new equation to estimate glomerular filtration rate. ??Jenny Composition Roofer Med. 2009:150(9):604-12 eGFR NONAA CKD-EPI 66 See note. 2019 2:04 PM EST [facility] Comment: As of 2015 the estimated GFR is calculated from serum creatinine using the Chronic Kidney Disease Epidemiology Collaboration (CKD-EPI) equation in patients 18 years and older. ??The reference range is >60 mL/min/1.73m2. ??eGFR values greater than 90 will be reported as >90mL/min/1.73m2. Reference: Mary Beth , Cosme LA, Baldemar CH, Seferino YL, Lavelle AF, 3rd, Asim HI, et. al. A new equation to estimate glomerular filtration rate. ??Jenny Composition Roofer Med. 2009:150(9):604-12 Plasma specimen (specimen) 12/06/2019 1:19 PM EST 12/06/2019 1:24 PM EST us Marian Christopher Tate MD LAB BLOOD ORDERABLES F inal Result Performing Organization Address City/State/[facility] Co de Phone Number [facility] [address] * (ABNORMAL) CBC, AM (12/06/2019 1:19 PM EST) WBC 14.5(H) 3.8 - 10.8 10E3/uL 12/06/2019 1:44 PM EST [facility] RBC 5.34(H) 3.80 - 5.10 10E6/uL 12/06/2019 1:44 PM EST [facility] Hemoglobin 12.5 11.7 - 15.5 g/dL 12/06/2019 1:44 PM EST [facility] Hematocrit 40.4 35.0 - 45.0 % 12/06/2019 1:44 PM EST [facility] MCV 75.6(L) 80.0 - 100.0 fL 12/06/2019 1:44 PM EST [facility] MCH 23.4(L) 27.0 - 33.0 pg 12/06/2019 1:44 PM EST [facility] MCHC 31.0(L) 32.0 - 36.0 g/dL 12/06/2019 1:44 PM EST [facility] RDW 17.8(H) 11.0 - 15.0 % 12/06/2019 1:44 PM EST [facility] Platelets 287 140 - 400 10E3/uL 12/06/2019 1:44 PM EST [facility] MPV 6.7(L) 7.5 - 11.5 fL 12/06/2019 1:44 PM EST [facility] Whole blood specimen (specimen) 12/06/2019 1:19 PM EST 12/06/2019 1:24 PM EST us Marian Tate MD LAB BLOOD ORDERABLES F inal Result [facility] [address] [place] [address], [facility] * Endoscopy, colon, diagnostic (12/06/2019 11:56 AM EST) 12/06/2019 11:5 6 AM EST Narrative [facility] - 12/06/2019 4:02 PM EST [id number] Procedure Date: 12/06/2019 11:56 AM ? Patient [...] by ? the physician, the nurse, the manager special events and the ? motion picture camera lens technician in the procedure room. Mental Status [...] Procedure Code(s): ?? --- Professional --- ? 06305, GC, Colonoscopy, flexible; with biopsy, single or ? multiple Diagnosis Code(s): ?? --- Professional --- ? K50.80, Crohn's disease of both small and large ? intestine without complications ? K50.10, Crohn's disease of large intestine without ? complications CPT copyright 2016 [employer]. All rights reserved. The codes documented in this report are preliminary and upon recreation officer review may be revised to meet current compliance requirements. Dae Campbell Maverick Campbell MD 12/06/2019 4:02:20 PM Vinnie Garcia MD Scope Withdrawal Time 0 hours 6 minutes 39 seconds Total Procedure Duration Time 0 hours 12 minutes 35 seconds Scope In: 12:04:23 PM Scope Out: 12:16:58 PM ? [address] [phone] us Attending Provider Unknown GI PROCEDURE ORDERABL ES Final Result Performing Organization Address City/State/[facility] Co de Phone Number [facility] [address] [facility] [place] [address] * DILATATION (12/06/2019 11:36 AM EST) 12/06/2019 11:3 6 AM EST Narrative [facility] - 12/06/2019 4:00 PM EST [id number] Procedure Date: 12/06/2019 11:36 AM ? Patient Name: Marleni Sy ? [...] by ? the physician, the nurse, the manager special events and the ? motion picture camera lens technician in the procedure room. Mental Status [...] Procedure Code(s): ?? --- Professional --- ? 37012, GC, Esophagogastroduodenoscopy, flexible, ? transoral; with biopsy, single or multiple Diagnosis Code(s): ?? --- Professional --- ? B37.81, Candidal esophagitis ? R13.14, Dysphagia, pharyngoesophageal phase ? K25.9, Gastric ulcer, unspecified as acute or chronic, ? without hemorrhage or perforation CPT copyright 2016 [employer]. All rights reserved. The codes documented in this report are preliminary and upon recreation officer review may be revised to meet current compliance requirements. Attending Participation: ? I personally performed the entire procedure. ? Dae Campbell Maverick Campbell MD 12/06/2019 4:00:12 PM Vinnie Garcia Vinnie Garcia MD 12/06/2019 12:34:31 PM Total Procedure Duration Time 0 hours 9 minutes 39 seconds Scope In: 11:46:10 AM Scope Out: 11:55:49 AM ? [address] [id number] us Attending Provider Unknown PROCEDURE/MINOR SURGI ZEUS ORDERABLES Final Result Performing Organization Address City/State/[facility] Co de Phone Number [facility] [address] [facility] [place] [address] * Surgical Pathology Exam (12/06/2019 12:00 AM EST) 12/06/2019 12/06/2019 Narrative [facility] - 12/06/2019 12:00 AM EST CASE: [id number] PATIENT: MARLENI SY Clinical History: ?? egd with biopsy. colonoscopy w/ or w/o biopsy Pre-Operative Diagnosis: crohn's disease activity Post-Operative Diagnosis: ? None Given Specimen(s) Submitted: ?? A. gastric ulcer bx r/o crohns, CMV, HSV; B. esophageal bx r/o dory; C. anastamosis area biopsies r/o cmv ??HSV, evaluate for crohns; D. rectal biopsies - R/O CMV ??HSV, evaluate for Crohns CPT Code(s): ?? 10123 X 4; 99650 X 1; 03745 X 5; 63568 X 4 Additional Information: FINAL DIAGNOSIS: A. [...] in formalin, labeled with the patient's name Sy, Marleni and gastric ulcer biopsies, rule out Crohn's CMV, HSV are three, pink-ford soft tissue fragments, ranging from 0.3 to 0.4 cm in greatest dimension that are filtered into a biopsy bag and submitted in cassette [id number] A1 with HP written on the side of the cassette. ??(Mildred Hernández, PT/vs) B. ?? Received in formalin, labeled with the patient's name Sy, Marleni and esophageal biopsy, rule out Dory is a 0.7 x 0.2 x 0.2 cm fragment of [id number] soft tissue that is filtered into a biopsy bag and submitted in cassette [id number] B1. ??(Mildred Hernández, PT/vs) C. ?? Received in formalin, labeled with the patient's name Sy, Marleni and anastomosis area biopsy are multiple pink-ford soft tissue fragments, ranging from 0.2 to 0.4 cm in greatest dimension, measuring 1.7 cm in aggregate that is filtered into a biopsy bag and submitted in cassette [id number] C1. ??(Mildred Hernández, PT/vs) D. ?? Received in formalin, labeled with the patient's name Sy, Marleni and rectal biopsies are three, pink-ford soft tissue fragments, ranging from 0.3 to 0.4 cm in greatest dimension that are filtered into a biopsy bag and submitted in cassette [id number] D1. ??(Mildred Hernández, PT/vs) Microscopic Description: Eight HE and one GMS and nine immunostain (CMV x4 and HSV x4 on A1 to D1, H. pylori on A1) slides are examined. I, the attending pathologist, have personally reviewed all prosector/resident work and pathology slides to determine final diagnosis. Some tests use analyte-specific reagents (ASRs). These tests were developed and their performance characteristics determined by [facility]. They have not been [...] developed and their performance characteristics determined by [facility] Pathology. They have not been cleared or [...] Pathologist signing this report is located at [facility], [address] [place] [address], [facility] [phone], CLIA ID: [id number] us Maverick Campbell MD PATHOLOGY/CYTOLOGY OR DERABLES Final Result [facility] * EKG REPORT - SCAN (12/05/2019 9:07 PM EST) us Scanning [facility] SCAN DOCS - NO RESULTS Final Res ult * Hepatitis B Surface Antibody, Quantitative (12/04/2019 6:37 AM EST) HBSAB NUMBER <8.00 0.00 - 7.99 mIU/mL 12/04/2019 7:52 AM EST [facility] Hep B S Ab Nonreactive Nonreactive 12/04/2019 7:52 AM EST [facility] Serum specimen (specimen) 12/04/2019 6:37 AM EST 12/04/2019 6:46 AM EST Narrative [facility] - 12/04/2019 7:52 AM EST Individual is considered not immune to HBV infection. Seble Paz MD LAB BLOOD ORDERABLES Final Resul t Performing Organization Address City/[facility] Co de Phone Number [facility] [address] [place] [address] * Hepatitis B Core Antibody (12/04/2019 6:37 AM EST) Hep B Core Total Ab Nonreactive Nonreactive 12/04/2019 7:51 AM EST [facility] Comment:Health Department no tified in accordance with reportable infectious disease guidelines. Serum specimen (specimen) 12/04/2019 6:37 AM EST 12/04/2019 6:46 AM EST Narrative [facility] - 12/04/2019 7:51 AM EST A nonreactive final interpretation indicates that anti-HBc antibodies were not detected in the sample; it is possible that the individual is not infected with HBV. Seble Paz MD LAB BLOOD ORDERABLES Final Resul t Performing Organization Address City/[facility]/ZIP Co de Phone Number [facility] [address] [place] [address]. [address] * (ABNORMAL) APTT, NO ANTICOAGULANT (12/04/2019 6:35 AM EST) aPTT 24.3(L) 25.5 - 35.0 seconds 12/04/2019 8:53 AM EST [facility] Plasma specimen (specimen) 12/04/2019 6:35 AM EST 12/04/2019 8:38 AM EST Madeleine Monaco MD LAB BLOOD ORDERABLES Final Result Performing Organization Address [facility] de Phone Number [facility] [address] * (ABNORMAL) Protime-INR (12/04/2019 6:35 AM EST) Protime 15.6(H) 12.1 - 15.1 seconds 12/04/2019 8:52 AM EST [facility] INR 1.2(H) 0.9 - 1.1 12/04/2019 [...] BLOOD ORDERABLES Final Result Performing Organization Address [facility] de Phone Number [facility] [address] * Magnesium (12/04/2019 6:35 AM EST) Magnesium 1.8 1.5 - 2.5 mg/dL 12/04/2019 9:08 AM EST [facility] Plasma specimen (specimen) 12/04/2019 6:35 AM EST 12/04/2019 8:38 AM EST Madeleine Monaco MD LAB BLOOD ORDERABLES Final Result Performing Organization Address [facility]/ZIP Co de Phone Number [facility] [address] [address], [facility] * (ABNORMAL) Renal Function Panel w/EGFR (12/04/2019 6:35 AM EST) Sodium 137 133 - 146 mmol/L 12/04/2019 9:08 AM EST [facility] Potassium 4.6 3.5 - 5.3 mmol/L 12/04/2019 9:08 AM [facility] Chloride 106 98 - 110 mmol/L 12/04/2019 9:08 AM EST [facility] CO2 26 21 - 33 mmol/L 12/04/2019 9:08 AM [facility] Anion Gap 5 3 - 16 mmol/L 12/04/2019 9:08 AM [facility] BUN 38(H) 7 - 25 mg/dL 12/04/2019 9:08 AM [facility] Creatinine 0.86 0.60 - 1.30 mg/dL 12/04/2019 9:08 AM [facility] Glucose 88 70 - 100 mg/dL 12/04/2019 9:08 AM [facility] Calcium 9.0 8.6 - 10.3 mg/dL 12/04/2019 9:08 AM [facility] Phosphorus 2.8 2.1 - 4.7 mg/dL 12/04/2019 9:08 AM [facility] Albumin 3.0(L) 3.5 - 5.7 g/dL 12/04/2019 9:08 AM [facility] Osmolality, Calculated 292 278 - 305 mOsm/kg 12/04/2019 9:08 AM [facility] eGFR AA CKD-EPI 86 See note. 0 9:08 AM [facility] Comment: As of 2015 the estimated GFR is calculated from serum creatinine using the Chronic Kidney Disease Epidemiology Collaboration (CKD-EPI) equation in patients 18 years and older. ??The reference range is >60 mL/min/1.73m2. ??eGFR values greater than 90 will be reported as >90mL/min/1.73m2. Reference: Mary Beth , Cosme LA, Baldemar CH, Seferino YL, Lavelle AF, 3rd, Asim HI, et. al. A new equation to estimate glomerular filtration rate. ??Jenny Composition [employer]. 2009:150(9):604-12 eGFR NONAA CKD-EPI 74 See note. 2019 9:08 AM EST [facility] Comment: As of 2015 the estimated GFR is calculated from serum creatinine using the Chronic Kidney Disease Epidemiology Collaboration (CKD-EPI) equation in patients 18 years and older. ??The reference range is >60 mL/min/1.73m2. ??eGFR values greater than 90 will be reported as >90mL/min/1.73m2. Reference: Mary Beth , Cosme LA, Baldemar CH, Seferino YL, Lavelle AF, 3rd, Asim HI, et. al. A new equation to estimate glomerular filtration rate. ??Jenny Composition [employer] Med. 2009:150(9):604-12 Plasma specimen (specimen) 12/04/2019 6:35 AM EST 12/04/2019 8:38 AM EST us Madeleine Monaco MD LAB BLOOD ORDERABLES Final Result Performing Organization Address City/State/[facility] Co de Phone Number [facility] [address] * (ABNORMAL) CBC (12/04/2019 6:35 AM EST) WBC 19.7(H) 3.8 - 10.8 10E3/uL 12/04/2019 8:50 AM EST [facility] RBC 4.46 3.80 - 5.10 10E6/uL 12/04/2019 8:50 AM EST [facility] Hemoglobin 10.4(L) 11.7 - 15.5 g/dL 12/04/2019 8:50 AM EST [facility] Hematocrit 33.6(L) 35.0 - 45.0 % 12/04/2019 8:50 AM EST [facility] MCV 75.2(L) 80.0 - 100.0 fL 12/04/2019 8:50 AM EST [facility] MCH 23.2(L) 27.0 - 33.0 pg 12/04/2019 8:50 AM EST [facility] MCHC 30.8(L) 32.0 - 36.0 g/dL 12/04/2019 8:50 AM EST [facility] RDW 17.8(H) 11.0 - 15.0 % 12/04/2019 8:50 AM EST [facility] Platelets 369 140 - 400 10E3/uL 12/04/2019 8:50 AM EST [facility] MPV 7.2(L) 7.5 - 11.5 fL 12/04/2019 8:50 AM EST [facility] Whole blood specimen (specimen) 12/04/2019 6:35 AM EST 12/04/2019 8:38 AM EST Madeleine Monaco MD LAB BLOOD ORDERABLES Final Result Performing Organization Address [facility] Co de Phone Number [facility] [address] [place] [address], [facility] * ECG 12 lead (MUSE) (12/03/2019 8:31 PM EST) 12/03/2019 8:31 PM EST Narrative MUSE - 12/04/2019 7:35 AM EST Ventricular Rate: ??69 ??BPM Atrial Rate: ??69 ??BPM P-R Interval: ??104 ??ms QRS Duration: ??68 ??ms QT: ??366 ??ms QTc: ??392 ??ms P Durham: ??67 ??degrees R Durham: ??25 ??degrees T Durham: ??48 ??degrees Diagnosis Line: ??INTERPRETATION NOT AVAILABLE--ECG READ IN ER ^ Confirmed by PHYSICIAN, ER ([id number]), pictures editor SUNG CARTER ([id number]) on 12/04/2019 7:35:50 AM Madeleine Monaco MD ECG ORDERABLES Final Resul t Performing Organization Address City/[facility]/ZIP Co de Phone Number MUSE * CT Abdomen and Pelvis With [...] 12/03/2019 6:25 PM EST Alden Tena MD IM CT ORDERABLES Final Resu lt * (ABNORMAL) C-reactive protein (12/03/2019 3:34 PM EST) CRP 15.0(H) 1.0 - 10.0 mg/L 12/03/2019 4:39 PM EST [facility] Plasma specimen (specimen) 12/03/2019 3:34 PM EST 12/03/2019 3:37 PM EST Alden Tena MD LAB BLOOD ORDERABLES Final R esult [address] * ESR (12/03/2019 3:34 PM EST) Sed Rate 21 0 - 30 mm/hr 12/03/2019 6:24 PM EST [facility] Whole blood specimen (specimen) 12/03/2019 3:34 PM EST 12/03/2019 5:00 PM EST Alden Tena MD LAB BLOOD ORDERABLES Final R esult Performing Organization Address City/[facility] Co de Phone Number [address] * Phosphorus (12/03/2019 3:34 PM EST) Phosphorus 3.3 2.1 - 4.7 mg/dL 12/03/2019 4:39 PM EST [facility] Plasma specimen (specimen) 12/03/2019 3:34 PM EST 12/03/2019 3:37 PM EST Alden Tena MD LAB BLOOD ORDERABLES Final R esult Performing Organization Address City/State/[facility] Co de Phone Number [address] * Magnesium (12/03/2019 3:34 PM EST) Magnesium 1.6 1.5 - 2.5 mg/dL 12/03/2019 4:39 PM EST [facility] Plasma specimen (specimen) 12/03/2019 3:34 PM EST 12/03/2019 3:37 PM EST Alden Tena MD LAB BLOOD ORDERABLES Final R esult [facility] [address] * Lactic acid, venous, whole blood (12/03/2019 3:34 PM EST) Pathologist [facility] Lactate, Hari 2.2 0.5 - 2.2 mmol/L 12/03/2019 3:38 PM EST [facility] Whole blood specimen (specimen) 12/03/2019 3:34 PM EST 12/03/2019 3:37 PM EST Alden Tena MD LAB BLOOD ORDERABLES Final R esult Performing Organization Address City/[facility] Co de Phone Number [facility] [address] * Lipase (12/03/2019 3:34 PM EST) Pathologist [facility] Lipase 45 4 - 82 U/L 12/03/2019 4:3 9 PM EST [facility] Plasma specimen (specimen) 12/03/2019 3:34 PM EST 12/03/2019 3:37 PM EST Alden Tena MD LAB BLOOD ORDERABLES Final R esult Performing Organization Address City/[facility] Co de Phone Number [facility] [address] * (ABNORMAL) Hepatic Function Panel (12/03/2019 3:34 PM EST) Total Bilirubin 0.4 0.0 - 1.5 mg/dL 12/03/2019 4:39 PM EST [facility] Bilirubin, Direct 0.12 0.00 - 0.40 mg/dL 12/03/2019 4:39 PM EST [facility] AST 14 13 - 39 U/L 12/03/2019 4:39 PM EST [facility] ALT 45 7 - 52 U/L 12/03/2019 4:39 PM EST [facility] Alkaline Phosphatase 77 36 - 125 U/L 12/03/2019 4:39 PM EST [facility] Total Protein 6.3(L) 6.4 - 8.9 g/dL 12/03/2019 4:39 PM EST [facility] Albumin 3.5 3.5 - 5.7 g/dL 12/03/2019 4:39 PM [facility] Bilirubin, Indirect 0.28 0.00 - 1.10 mg/dL 12/03/2019 4:39 PM EST [facility] Plasma specimen (specimen) 12/03/2019 3:34 PM EST 12/03/2019 3:37 PM EST us Alden Tena MD LAB BLOOD ORDERABLES Final R esult [facility] [address] * (ABNORMAL) Differential (12/03/2019 3:34 PM EST) Neutrophils Relative 94.0(H) 40.0 - 80.0 % 12/03/2019 5:07 PM [facility] Lymphocytes Relative 3.4(L) 15.0 - 45.0 % 12/03/2019 5:07 PM [facility] Monocytes Relative 2.5 0.0 - 12.0 % 12/03/2019 5:07 PM [facility] Eosinophils Relative 0.0 0.0 - 8.0 % 12/03/2019 5:07 PM [facility] Basophils Relative 0.1 0.0 - 1.0 % 12/03/2019 5:07 PM [facility] nRBC 0 0 - 0 /100 WBC 12/03/2019 5:07 PM [facility] Neutrophils Absolute 14,852(H) 1,500 - 7,800 /uL 12/03/2019 5:07 PM [facility] Lymphocytes Absolute 537(L) 850 - 3,900 /uL 12/03/2019 5:07 PM [facility] Monocytes Absolute 395 200 - 950 /uL 12/03/2019 5:07 PM EST [facility] Eosinophils Absolute 0(L) 15 - 500 /uL 12/03/2019 5:07 PM EST [facility] Basophils Absolute 16 0 - 200 /uL 12/03/2019 5:07 PM EST [facility] Whole blood specimen (specimen) 12/03/2019 3:34 PM EST 12/03/2019 5:00 PM EST Alden Tena MD LAB BLOOD ORDERABLES Final R esult [facility] [address] [id number], [facility] * (ABNORMAL) CBC (12/03/2019 3:34 PM EST) WBC 15.8(H) 3.8 - 10.8 10E3/uL 12/03/2019 5:07 PM [facility] RBC 5.02 3.80 - 5.10 10E6/uL 12/03/2019 5:07 PM [facility] Hemoglobin 11.5(L) 11.7 - 15.5 g/dL 12/03/2019 5:07 PM [facility] Hematocrit 37.9 35.0 - 45.0 % 12/03/2019 5:07 PM [facility] MCV 75.5(L) 80.0 - 100.0 fL 12/03/2019 5:07 PM [facility] MCH 22.9(L) 27.0 - 33.0 pg 12/03/2019 5:07 PM [facility] MCHC 30.3(L) 32.0 - 36.0 g/dL 12/03/2019 5:07 PM [facility] RDW 17.8(H) 11.0 - 15.0 % 12/03/2019 5:07 PM [facility] Platelets 422(H) 140 - 400 10E3/uL 12/03/2019 5:07 PM [facility] MPV 7.1(L) 7.5 - 11.5 fL 12/03/2019 5:07 PM [facility] Whole blood specimen (specimen) 12/03/2019 3:34 PM EST 12/03/2019 5:00 PM EST us Alden Tena MD LAB BLOOD ORDERABLES Final R esult [facility] [address] [place] [address], [facility] * (ABNORMAL) Basic metabolic panel (12/03/2019 3:34 PM EST) Sodium 137 133 - 146 mmol/L 12/03/2019 4:39 PM EST [facility] Potassium 4.4 3.5 - 5.3 mmol/L 12/03/2019 4:39 PM EST [facility] Chloride 106 98 - 110 mmol/L 12/03/2019 4:39 PM EST [facility] CO2 24 21 - 33 mmol/L 12/03/2019 4:39 PM EST [facility] Anion Gap 7 3 - 16 mmol/L 12/03/2019 4:39 PM EST [facility] BUN 46(H) 7 - 25 mg/dL 12/03/2019 4:39 PM EST [facility] Creatinine 1.06 0.60 - 1.30 mg/dL 12/03/2019 4:39 PM EST [facility] Glucose 159(H) 70 - 100 mg/dL 12/03/2019 4:39 PM EST [facility] Calcium 9.1 8.6 - 10.3 mg/dL 12/03/2019 4:39 PM EST [facility] Osmolality, Calculated 299 278 - 305 mOsm/kg 12/03/2019 4:39 PM EST [facility] eGFR AA CKD-EPI 67 See note. 0 4:39 PM EST [facility] Comment: As of 2015 the estimated GFR is calculated from serum creatinine using the Chronic Kidney Disease Epidemiology Collaboration (CKD-EPI) equation in patients 18 years and older. ??The reference range is >60 mL/min/1.73m2. ??eGFR values greater than 90 will be reported as >90mL/min/1.73m2. Reference: Mary Beth , Cosme LA, Baldemar CH, Seferino YL, Lavelle AF, 3rd, Asim HI, et. al. A new equation to estimate glomerular filtration rate. ??Jenny Composition [employer] Med. 2009:150(9):604-12 eGFR NONAA CKD-EPI 58 See note. 2019 4:39 PM EST [facility] Comment: As of 2015 the estimated GFR is calculated from serum creatinine using the Chronic Kidney Disease Epidemiology Collaboration (CKD-EPI) equation in patients 18 years and older. ??The reference range is >60 mL/min/1.73m2. ??eGFR values greater than 90 will be reported as >90mL/min/1.73m2. Reference: Mary Beth , Cosme LA, Baldemar CH, Gentile YL, Lavelle AF, 3rd, Asim HI, et. al. A new equation to estimate glomerular filtration rate. ??Jenny Composition [employer] Med. 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 cholestyramine-aspartame (PREVALITE, QUESTRAN LIGHT) 4 gram packet 4 g 4 g, Oral, 2 times daily, First dose on Mon12/04/19 at 0955, Therapeutic Interchange: cholestyramine (QUESTRAN) with sugar powder 4 gram = cholesytramine-aspartame (PREVALITE) 4 gram packet MAX 24 GRAMS PER DAY Given 12/05/2019 8:57 AM EST 4 g Given 12/04/2019 10:09 PM EST 4 g Given 12/04/2019 2:16 PM EST 4 g cholestyramine-aspartame (PREVALITE, QUESTRAN LIGHT) 4 gram packet [...] Given 12/07/2019 9:35 AM EST 200 mg fluconazole (DIFLUCAN) tablet 400 mg 400 mg, Oral, Once, On Mon12/06/19 at 1300, For 1 dose Given 12/06/2019 3:47 PM EST 400 mg heparin (porcine) injection 5,000 Units 5,000 [...] 10:18 AM EST 100 mL/hr 100 mL/hr magnesium citrate solution 296 mL 296 mL, Oral, Once, On Mon12/05/19 at 0200, For 1 dose Given 12/05/2019 4:46 AM EST 296 mLs magnesium citrate solution 296 mL 296 mL, Oral, Once, On Mon12/04/19 at 1800, For 1 dose Given 12/04/2019 10:16 PM EST 296 mLs magnesium citrate solution 296 mL 296 mL, Oral, Once, On Mon12/05/19 at 1800, For 1 dose Given 12/05/2019 5:27 PM EST 296 mLs magnesium citrate solution 296 mL 296 mL, Oral, Once, On Mon12/06/19 at 0200, For 1 dose Given 12/06/2019 6:00 AM EST 296 mLs metroNIDAZOLE (FLAGYL) tablet 500 mg 500 mg, [...] Non-Formulary Medication: 3-New Medication not currently on [facility] Formulary Given 12/07/2019 9:32 AM EST Given 12/06/2019 10:15 PM EST morphine injection 2 mg 2 mg, Intravenous, Once, On Mon12/03/19 at 2213, For 1 dose Given 12/03/2019 10:43 PM EST 2 mg morphine injection 2 mg 2 mg, Intravenous, Once, On Mon12/04/19 at 0435, For 1 dose Given 12/04/2019 4:55 AM EST 2 mg morphine injection 2 mg 2 mg, Intravenous, Once, On Mon12/05/19 at 0000, For 1 dose Given 12/05/2019 12:13 AM EST 2 mg morphine injection 2 mg 2 mg, Intravenous, Once, On Mon12/06/19 at 0030, For 1 dose Given 12/06/2019 12:58 AM EST 2 mg morphine injection 4 mg 4 mg, Intravenous, Once, On Mon12/03/19 at 1611, For 1 dose Given 12/03/2019 4:13 PM EST 4 mg morphine injection 4 mg 4 mg, Intravenous, Once, On Mon12/04/19 at 0808, For 1 dose, If on IV and PO pain medications, use IV if patient cannot tolerate oral. Given 12/04/2019 8:13 AM EST 4 mg morphine injection 4 mg 4 mg, Intravenous, Every 4 hours PRN, moderate pain (NRS-4-6), severe pain (NRS 7-10), Starting on Mon12/04/19 at 1229, For 24 hours, If on IV and PO pain medications, use IV if patient cannot tolerate oral. Given 12/05/2019 10:15 AM EST 4 mg Given 12/05/2019 6:17 AM EST 4 mg Given 12/05/2019 2:06 AM EST 4 mg morphine injection 4 mg 4 mg, Intravenous, Every 4 hours PRN, severe pain (NRS 7-10), Starting on Mon12/05/19 at 1101, For 1 day 22 hours, If on IV and PO pain medications, use IV if patient cannot tolerate oral. Given 12/06/2019 6:29 PM EST 4 mg Given 12/06/2019 2:08 PM EST 4 mg Given 12/06/2019 6:34 AM EST 4 mg OMNIPAQUE (iohexol) 350 mg iodine/mL 150 mL 150 mL, Intravenous, IMG once as needed, contrast, Starting on Mon12/03/19 at 1743, For 1 dose Given 12/03/2019 5:17 PM EST 120 mLs ondansetron (ZOFRAN) injection 4 mg 4 mg, Intravenous, Every 4 hours PRN, Nausea and/or Vomiting, Starting on Mon12/04/19 at 1746 Given 12/06/2019 6:39 AM EST 4 mg Given 12/06/2019 2:36 AM EST 4 mg Given 12/05/2019 10:34 PM EST 4 mg ondansetron (ZOFRAN) injection 4 mg 4 mg, Intravenous, Once, On Mon12/05/19 at 0000, For 1 dose Given 12/05/2019 12:14 AM EST 4 mg ondansetron (ZOFRAN) tablet 4 mg 4 mg, Oral, Once, On Mon12/06/19 at 2130, For 1 dose Given 12/06/2019 10:13 PM EST 4 mg pantoprazole (PROTONIX) EC [...] RN) 0932 (Given - Provider: Mylene Ho, RN) ciprofloxacin HCl (CIPRO) tablet 500 mg 500 mg, Oral, Every 12 hours scheduled (2 times per day), First dose on Mon12/04/19 at 1000 0856 (Given - Provider: Rhonda Ordonez RN)2054 (Given - Provider: Adelaide Carmichael, ANGE) 1403 (Given - Provider: Ok Urbina RN)2213 (Given - Provider: Masha Malagon RN) 0934 (Given - Provider: Mylene Ho, ANGE) fluconazole (DIFLUCAN) tablet 200 mg 200 mg, Oral, Daily, First dose on Mon12/07/19 at 0900, For 20 doses 0935 (Given - Provider: Mylene Ho RN) fluconazole (DIFLUCAN) tablet 400 mg (COMPLETED) 400 mg, Oral, Once, On Mon12/06/19 at 1300, For 1 dose 1547 (Given - Provider: Ok Urbina RN) heparin (porcine) injection 5,000 Units 5,000 Units, Subcutaneous, Every 8 hours scheduled (3 times per day), First dose on Mon12/03/19 at 2011 0623 (Not Given - Provider: Skye Winchester RN - Reason: Patient/family refused)1330 (Not Given - Provider: Ok Urbina RN - Reason: Patient/family refused)2054 (Not Given - Provider: Adelaide Carmichael RN [...] RN) 0935 (Given - Provider: Mylene Ho, ANGE) magnesium citrate solution 296 mL (COMPLETED) 296 mL, Oral, Once, On Ashlie 12/05/19 at 0200, For 1 dose 0446 (Given - Provider: Skye Winchester RN) magnesium citrate solution 296 mL (COMPLETED) 296 mL, Oral, Once, On Ashlie 12/05/19 at 1800, For 1 dose 1727 (Given [...] Ok Urbina RN)2054 (Given - Provider: Adelaide Carmichael, ANGE) 0639 (Given - Provider: Adelaide Carmichael RN)1358 (Given - Provider: Ok Urbina RN)2213 (Given [...] Non-Formulary Medication: 3-New Medication not currently on [facility] Formulary 2215 (Given - Provider: Masha [...] mg (COMPLETED) 4 mg, Intravenous, Once, On Mon12/05/19 at 0000, For 1 dose 0014 (Given [...] RN) 1359 (Given - Provider: Ok Urbina, RN) 0934 (Given - Provider: Mylene Ho, ANGE) sodium chloride flush 10 mL(Linked Group 1) 10 mL, Intravenous, Every Shift, First dose on Mon12/03/19 at 2100 0618 (Given - Provider: Skye Winchester RN)1331 (Given - Provider: kO Urbina, RN)2055 (Given - Provider: Adelaide Carmichael RN) 0641 (Given - Provider: Adelaide Carmichael RN)1402 (Given - Provider: Ok Urbina RN)2218 (Not Given - Provider: Masha Malagon RN - Reason: Loss of IV access) 0502 (Not Given - Provider: Masha Malagon RN - Reason: Loss of IV access)1248 (Not Given - Provider: Mylene Ho RN - Reason: Contraindicated) Continuous Medication Order 12/05/2019 12/06/2019 12/07/2019 lactated Ringers infusion 100 mL/hr, Intravenous, Continuous, Starting on Mon12/04/19 at 1002 0019 (New Bag - Provider: Skye Winchester, ANGE)1018 (New Bag - Provider: Ok Urbina RN)1947 (New Bag - Provider: Adelaide Carmichael, ANGE) 0634 (New Bag - Provider: Adelaide Carmichael RN) PRN Medication Order 12/05/2019 12/06/2019 12/07/2019 [...] Ok Urbina RN)2233 (Given - Provider: Adelaide Carmichael RN) 0236 (Given - Provider: Adelaide Carmichael RN)0634 (Given - Provider: Adelaide Carmichael RN)1408 (Given - Provider: Ok Urbina RN)1829 (Given - Provider: Ok Urbina RN) ondansetron (ZOFRAN) injection 4 mg 4 mg, Intravenous, Every 4 hours PRN, Nausea and/or Vomiting, Starting on Mon12/04/19 at 1746 0618 (Given - Provider: Skye Winchester RN)1012 (Given - Provider: Ok Urbina RN)1826 (Given - Provider: Ok Urbina RN)2234 (Given - Provider: Adelaide Carmichael RN) 0236 (Given - Provider: Adelaide Carmichael RN)0639 (Given - Provider: Adelaide Carmichael, ANGE) proCHLORPERazine (COMPAZINE) injection 5 mg 5 mg, Intravenous, Every 6 hours PRN, Nausea and/or Vomiting, Starting on Mon12/06/19 at 0143 0140 (Given - Provider: Adelaide Carmichael, ANGE) traMADoL (ULTRAM) tablet 50 mg 50 mg, [...] oral. documented in this encounter Care Teams Used Car Make Ready Mechanic Relationship Specialty Start Date End Date Anand Merrill MD [address] [place] [address] PCP - General Family Medicine 12/03/19 documented as of this encounter
--- OUTSIDE RECORDS SUMMARY | 2024-08-15 13:45 | XMS_ITS | Encounter Summary ---
Author Organization [facility] Address [address] [place] [address] Care Team Providers Care Line Producer Name Role Phone Damaso Black MD Primary Care Provider [phone] Source Comments This information has been disclosed [...] release of HIV test results or diagnoses. [id number] Health Encounter Details Date Type Department Care Team (Late st Contact Info) Description 12/12/2019 Telephone [facility] Gastroenterology at [facility] Office [address] [place] [address], [address] [place] [phone] Vinnie aGrcia MD [facility] [address] [place] [address] Social History Tobacco Use Types Packs/Day Years Used Date Smoking Tobacco: Never Smokeless Tobacco: Never Comments No Sex and Gender Information Value Date Recorded Sex Assigned at Female 12/06/2019 8:50 AM EST Legal Sex Female 7:50 PM EST Gender Identity Female 12/06/2019 8:50 AM EST Sexual Orientation Not on file documented as of this encounter Miscellaneous Notes * Telephone Encounter - Vinnie Garcia MD - 12/12/2019 11:25 AM EDT Brief GI Telephone Note Called patient and answered her question regarding the medication prescribed. 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
--- OUTSIDE RECORDS SUMMARY | 2024-08-15 13:45 | XMS_ITS | Encounter Summary ---
Author Organization [facility] Address [address] [place] [address] Care Team Providers Care Dielectric Press Operator Name Role Phone Damaso Black MD Primary Care Provider [phone] Source Comments This information has been disclosed [...] release of HIV test results or diagnoses. [id number] Health Encounter Details Date Type Department Care Team (Late st Contact Info) Description 12/10/2019 Orders Only [facility] Gastroenterology at [facility] [address] [facility], [address] [address] Vinnie Garcia MD [facility] [address] [place] [address] Social History Tobacco Use Types Packs/Day Years Used Date Smoking Tobacco: Never Smokeless Tobacco: Never Comments No Sex and Gender Information Value Date Recorded Sex Assigned at Female 12/06/2019 8:50 AM EST Legal Sex Female 7:50 PM EST Gender Identity Female 12/06/2019 8:50 AM EST Sexual Orientation Not on file documented as of this encounter Plan of Treatment Not on file documented as of this encounter Visit Diagnoses Not on filedocumented in this encounter Care Teams Dielectric Press Operator Relationship Specialty Start Date End Date Wayne, Damaso, MD [address] [place] [address] PCP - General Family Medicine 12/03/19 documented as of this encounter
--- OUTSIDE RECORDS SUMMARY | 2024-08-15 13:45 | XMS_ITS | Encounter Summary ---
Author Organization [facility] Address [address] [place] [address] Care Team Providers Care Sheet Writer Name Role Phone Damaso Black MD Primary Care Provider Source Comments This information has been disclosed [...] release of HIV test results or diagnoses. [id number] Health Encounter Details Date Type Department Care Team (Latest Contact Info) Description 12/03/2019 Travel Social History Tobacco Use Types Packs/Day Years Used Date Smoking Tobacco: Never Assessed Cigarettes Comments No Sex and Gender Information Value Date Recorded Sex Assigned at Female 12/06/2019 8:50 AM EST Legal Sex Female 7:50 PM EST Gender Identity Female 12/06/2019 8:50 AM EST Sexual Orientation Not on file documented as of this encounter Plan of Treatment Not on file documented as of this encounter Visit Diagnoses Not on filedocumented in this encounter Care Teams Sheet Writer Relationship Specialty Start Date End Date Damaso Black MD [address] [place] [address] PCP - General Family Medicine 12/03/19 documented as of this encounter
--- OUTSIDE RECORDS SUMMARY | 2024-08-15 13:45 | XMS_ITS | Encounter Summary ---
Author Organization [facility] Address [address] [place] [address] Care Team Providers Care Waiter/Waitress Cafeteria Name Role Phone Damaso Black MD Primary Care Provider [phone] Source Comments This information has been disclosed [...] release of HIV test results or diagnoses. [id number] Reason for Visit * Auth/Cert Specialty Diagnoses / Procedures Referred By Lata deal Referred To Contact Emergency Medicine [facility] Emergency Department [address] [place] [phone] Phone: tel: fax: Referral ID Status Reason Start Date Expiration Date Visits Re quested Visits Authorized [id number] 1 1 Encounter Details Date Type Department Care Team (Late st Contact Info) Description 12/06/2019 11:40 AM EST Anesthesia Event [facility] ENDOSCOPY [address] [place] [phone] Navin Goel MD [facility] [place] [phone] Adrianna Washington MD [address] [place] [phone] Anesthesia Record Procedure Summary Procedure Name Responsible Anesthesiologist Anesthesia Start Time Anesthesia Stop Time EGD WITH BIOPSY Navin Goel MD 12/06/19 1140 0 12/06/19 1228 Events Date Time Event Comment 12/06/2019 1140 An Start 1140 An Start Data 1143 An Induction 1145 Time Out 1218 An Emergence 1223 an stop data 1228 An Stop Meds Name Total lidocaine (XYLOCAINE) 20 mg/mL (2%) inje ction 100 mg propofol (DIPRIVAN) 10 mg/ml IV injectio n (BOLUS) 110 mg propofol (DIPRIVAN) 10 mg/ml infusion - 20ML VIAL SIZE 192.19 mg lactated ringers infusion 150 mL * Agents Name N2O Auxiliary O2 O2 N2O Air * Blood No blood administrations on file. Lines, Drains, and Airways Type Details Placement Removal Anesthesia Airway Device 12/06/19; 1005; Nasal Cannula Salter 12/06/19 1005 by Marcelina Ferrari CRNA Peripheral IV 12/04/19; 2323; 20 G ; Left; Forearm; Chlorhexidine; Injectable; Ultrasound Guided; Tolerated well 12/04/19 232 by Trisha Daniel RN 12/06/19 192 by Ok Urbina RN documented in this encounter Social History Tobacco Use Types Packs/Day Years Used Date Smoking Tobacco: Never Smokeless Tobacco: Never Comments No Sex and Gender Information Value Date Recorded Sex Assigned at Female 12/06/2019 8:50 AM EST Legal Sex Female 7:50 PM EST Gender Identity Female 12/06/2019 8:50 AM EST Sexual Orientation Not on file documented as of this encounter Progress Notes * Navin Goel MD - 12/12/2019 8:20 AM EDT Anesthesia Post Note Patient: Marleni Sy Procedure(s) Performed: Procedure(s): EGD WITH BIOPSY COLONOSCOPY W/ OR W/O BIOPSY Anesthesia type: MAC Patient location: PACU Post pain: Adequate analgesia Post assessment: no apparent anesthetic complications Last Vitals: Vitals: 12/06/19205512/07/19 0012 12/07/19 0446 12/07/19 0734 BP: 104/66 107/62 90/53 118/70 BP Location: Right arm Right arm Right arm Left arm Patient Position: Lying Lying Lying Lying Pulse: 87 74 58 75 Resp: 18 18 20 18 Temp: 98.5 ??F (36.9 ??C) 97.9 ??F (36.6 ??C) 98.2 ??F (36.8 ??C) 98 ??F (36.7 ??C) TempSrc: Oral Oral Oral Oral SpO2: 98% 100% 100% 98% Weight: Height: Post vital signs: stable Level of consciousness: awake Complications: None documented in this encounter H&P Notes * Navin Goel MD - 12/06/2019 8:59 AM EST [facility] DEPARTMENT OF ANESTHESIOLOGY PRE-PROCEDURAL EVALUATION Marleni Sy is a 59 y.o. 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 I have reviewed the History and Physical Exam, any relevant changes are noted in the anesthesia pre-operative evaluation. Cardiovascular: Exercise tolerance: good Frias Met score: 4 - Raking leaves. Weeding or pushing a power mower. (-) past [place], CAD, CHF, no hyperlipidemia. Neuro/Muscoloskeletal/Psych: (-) seizures, TIA, CVA. Pulmonary: (-) asthma, shortness of breath. GI/Hepatic/Renal: (-) liver disease, renal disease. Comments: crohns disease Endo/Other: (+) anemia. (-) no thrombocytopenia. Past Medical History Past Medical History: Diagnosis Date ??? Crohn's colitis ([facility] Dx) ??? Fistula Past Surgical History History reviewed. No pertinent surgical history. Family History History reviewed. No pertinent family history. Social History Social History Socioeconomic History ??? Marital status: [...] on file Tobacco Use ??? Smoking status: Never Smoker ??? Smokeless tobacco: Never Used Substance and Sexual Activity ??? Alcohol use: Not on file ??? Drug use: Not on file ??? Sexual activity: Not on file Lifestyle ??? Physical activity: Days per week: Not on file Minutes per session: Not on file ??? Stress: Not on file Relationships ??? Social connections: Talks on phone: Not on file Gets together: Not on file Attends gnosticism service: Not on file Active member of [...] Social History Narrative ??? Not on file Medications Allergies: Allergies Allergen Reactions ??? Sulfa (Sulfonamide Antibiotics) Itching and Rash Other reaction(s): Respiratory distress Home Meds: Prior to Admission medications as of 12/06/19 0850 Medication Sig Taking? diphenoxylate-atropine (LOMOTIL) 2.5-0.025 mg per tablet dyclonine HCl (SUCRETS SORE THROAT MM) dyclonine pantoprazole (PROTONIX) 40 MG tablet predniSONE (DELTASONE) 20 MG tablet sucralfate (CARAFATE) 100 mg/mL suspension traMADoL (ULTRAM) 50 mg tablet Inpatient Meds: Scheduled: ??? ciprofloxacin HCl 500 mg Oral 2 times per day ??? heparin 5,000 Units Subcutaneous 3 times per day ??? hydrocortisone 25 mg Oral Daily 0900 ??? metroNIDAZOLE 500 mg Oral 3 times per day ??? pantoprazole 40 mg Oral Daily 0900 ??? sodium chloride 10 mL Intravenous QS Continuous: ??? lactated Ringers 100 mL/hr (12/06/19 0634) PRN: acetaminophen, morphine, ondansetron, proCHLORPERazine Vital Signs Wt Readings from Last 3 Encounters: 12/04/19 116 lb 6.4 oz (52.8 kg) Ht Readings from Last 3 Encounters: 12/04/19 5' 2 (1.575 m) Temp Readings from Last 3 Encounters: 12/06/19 98.9 ??F (37.2 ??C) (Oral) BP Readings from Last 3 Encounters: 12/06/19 115/60 Pulse Readings from Last 3 Encounters: 12/06/19 63 @LASTSAO2(3)@ Physical Exam Airway: Mallampati: II Mouth Opening: >2 FB TM distance: > = 3 FB Neck ROM: full Dental: Pulmonary: - normal exam Cardiovascular: Rhythm: regular Rate: normal Neuro/Musculoskeletal/Psych: - normal neurological exam. Mental status: alert and oriented to person, place and time. Abdominal: - normal exam Current OB Status: Other Findings: Laboratory Data Lab Results Component Value Date WBC 19.7 (H) 12/04/2019 HGB 10.4 (L) 12/04/2019 HCT 33.6 (L) 12/04/2019 MCV 75.2 (L) 12/04/2019 PLT 369 12/04/2019 No results found for: ABORH Lab Results Component Value Date GLUCOSE 88 12/04/2019 BUN 38 (H) 12/04/2019 CO2 26 12/04/2019 CREATININE 0.86 12/04/2019 K 4.6 12/04/2019 NA 137 12/04/2019 CL 106 12/04/2019 CALCIUM 9.0 12/04/2019 ALBUMIN 3.0 (L) 12/04/2019 PROT 6.3 (L) 12/03/2019 ALKPHOS 77 12/03/2019 ALT 45 12/03/2019 AST 14 12/03/2019 BILITOT 0.4 12/03/2019 Lab Results Component Value Date INR 1.2 (H) 12/04/2019 No results found for: PREGTESTUR, PREGSERUM, HCG, HCGQUANT Anesthesia Plan ASA 2 Female and current non-smoker Anesthesia Type: MAC. PONV Risk Factors: female, current non-smoker, plan for postoperative opioid use. Anesthetic plan and risks discussed with patient. Plan, alternatives, and risks of anesthesia, including , have been explained to and discussed with the patient/legal guardian. By my assessment, the patient/legal guardian understands and agrees. Scenario presented in detail. Questions answered. Blood products not discussed. Plan discussed with PROCESS SPECIALIST. documented in this encounter Miscellaneous Notes * Anesthesia Post-op Follow-up Note - Dangelo Philippe CRNA - 12/09/2019 7:53 AM EDT Labor and Delivery Pain Management Follow-up Note Patient: Marleni Sy Procedure(s) Performed: Procedure(s): EGD WITH BIOPSY COLONOSCOPY W/ OR W/O BIOPSY Patient discharged documented in this encounter Plan of Treatment Not on file documented as of this encounter Visit Diagnoses * Transfer of Care - Marcelina Ferrari CRNA - 12/06/2019 12:27 PM EST Anesthesia Transfer of Care Note Patient: Marleni Sy Procedure(s) Performed: Procedure(s): EGD WITH BIOPSY COLONOSCOPY W/ OR W/O BIOPSY Patient location: Endoscopy PACU Anesthesia type: MAC Airway Device on Arrival to PACU/ICU: Room Air IV Access: Peripheral Monitors Recommended to be Used During PACU/ICU: Standard Monitors Outstanding Issues to Address: None Level of Consciousness: awake and alert Post vital signs: Vitals: 12/06/19 1228 BP: 113/90 Pulse: 85 Resp: 18 Temp: 98.2 ??F (36.8 ??C) SpO2: 100% Complications: None Date 12/05/19 07 - 12/06/19 0659 12/06/19 07 - 12/07/19 0659 Shift [id number] 5362-0877 0291-5258 24 Hour Total 4908-9971 5705-7202 6195-1472 24 Hour Total INTAKE P.O. 600 600 P.O. 600 600 I.V.(mL/kg) 2303(43.6) 2303(43.6) 150(2.8) 150(2.8) Volume (mL) (lactated Ringers infusion) 2303 2303 Volume (mL) (lactated Ringers infusion) 150 150 Shift Total(mL/kg) 600(11.4) 2303(43.6) 2903(55) 150(2.8) 150(2.8) OUTPUT Stool Stool Occurrence 2 x 2 x 4 x Shift Total(mL/kg) Weight (kg) 52.8 52.8 52.8 52.8 52.8 52.8 52.8 52.8 documented in this encounter Administered Medications Inactive Administered Medications - up to 3 most recent administrations Medication Order MAR Action Action Date Dose Rate Site lactated Ringers infusion Continuous - One Step Medications Only, Starting on Mon12/06/19 at 1140, Anesthesia Intra-op New Bag 12/06/2019 11:40 AM EST lidocaine (PF) 20 mg/mL (2 %) Intravenous, PRN - One Step Medication Only, Starting on Mon12/06/19 at 1145, Anesthesia Intra-op Given 12/06/2019 11:45 AM EST 100 mg propofol 10 mg/ml (DIPRIVAN) injection PRN - One Step Medication Only, Starting on Mon12/06/19 at 1143, Anesthesia Intra-op Given 12/06/2019 11:46 AM EST 30 mg Given 12/06/2019 11:43 AM EST 80 mg propofol 10 mg/ml, 20mL vial (DIPRIVAN) INFUSION Continuous - One Step Medications Only, Starting on Mon12/06/19 at 1146, Anesthesia Intra-op Rate/Dose Change 12/06/2019 12:13 PM EST 100 mcg/kg/min 31.7 mL/hr New Bag 12/06/2019 11:46 AM EST 120 mcg/kg/min 38 mL/hr documented in this encounter Care Teams Waiter/Waitress Cafeteria Relationship Specialty Start Date End Date Damaso Black MD [address] [place] [address] PCP - General Family Medicine 12/03/19 documented as of this encounter
--- OUTSIDE RECORDS SUMMARY | 2024-08-15 13:45 | XMS_ITS | Encounter Summary ---
Author Organization [facility] Address [address] [place] [address] Care Team Providers Care Strategic Partner Development Manager Name Role Phone Damaso Black MD Primary Care Provider [phone] Source Comments This information has been disclosed [...] release of HIV test results or diagnoses. [id number] Reason for Visit * Reason Comments Prior Authorization Encounter Details Date Type Department Care Team (Late st Contact Info) Description 03/16/2020 Telephone [facility] Gastroenterology at [place] [facility] [address] [facility], [address] [place] [address] Maverick Campbell MD [address] [facility], [address] [place] [address] Prior Authorization Social History Tobacco Use Types Packs/Day Years Used Date Smoking Tobacco: Never Smokeless Tobacco: Never PHQ-2 Answer Date Recorded PHQ-2 Total Score [...] encounter Miscellaneous Notes * Telephone Encounter - Melissa Thomas MA - 04/08/2020 4:04 PM EDT Jaden Tonia, Looks like like patient should be in the fellows clinic. She was schedule in [facility] lookslike in error. She wasn't a happy camper when she left . Thanks, Melissa * Telephone Encounter - Ashley Wen RN - 03/19/2020 10:19 AM EDT LVM for patient with clinic line for call back. * Telephone Encounter - Deb Valadez - 03/16/2020 3:09 PM EDT March 16, 2020 3:09 PM Marleni has called to advise of the following: ?? She noted she has constant diarrhea and has been taking Enytvio with no resolve. She noted she is desperate to see a UC povider as soon as possible. Current insurance is out of network. ?? She has been evaluated for three months for Crohn's disease and is unhappy with her care there. She has contacted her insurance company and has been informed can submit a PA requesting the patient be seen with a UC Gastro provider. Please contact [employer] Authorization Services: #[phone]. Please contact the patient at [phone] (home) to confirm authorization has been submitted. documented in this encounter Plan of Treatment Not on file documented as of this encounter Visit Diagnoses Not on filedocumented in this encounter Care Teams Strategic Partner Development Manager Relationship Specialty Start Date End Date Damaso Black MD [address] [place] [address] PCP - General Family Medicine 12/03/19 documented as of this encounter
--- OUTSIDE RECORDS SUMMARY | 2024-08-15 13:45 | XMS_ITS | Encounter Summary ---
Author Organization [facility] Address [address] [place] [id number] Care Team Providers Care Cloth Finishing Range Tender Name Role Phone Damaso Black MD Primary Care Provider [phone] Source Comments This information has been disclosed [...] release of HIV test results or diagnoses. [id number] Reason for Referral * Physician/KENISHA (Routine) - Closed Specialty Diagnoses / Procedures Referred By Lata deal Referred To Contact Gastroenterology Mary May MD Phone: tel: fax: Referral ID Status Reason Start Date Expiration Date V isits Requested Visits Authorized [id number] Closed Specialty Services Required 03/24/2020 09/20/2020 1 1 Scheduling Instructions For appointments, please call [phone]. Reason for Visit * Reason Comments Rectal Pain Encounter Details Date Type Department Care Team (Late st Contact Info) Description 03/24/2020 7:22 PM EDT - 03/24/2020 10:[address] [facility] Emergency Department [address] [place] [phone] Rubia Amador MD [address] [phone] Crohn's disease with fistula, unspecified gastrointestinal tract location ([facility]) (Primary Dx) Discharge Disposition: Home or Self Care WITHOUT [...] Sign Reading Time Taken Comments Blood Pressure 130/74 03/24/2020 9:58 PM EDT Pulse 67 03/24/2020 9:58 PM EDT Temperature 36.6 ??C (97.9 ??F) 03/24/2020 9:58 PM ED T Respiratory Rate 16 03/24/2020 9:58 PM EDT Oxygen Saturation 99% 03/24/2020 9:58 PM EDT Inhaled Oxygen Concentration 99% 03/24/2020 9 :58 PM EDT Weight - - Height - - Body Mass Index - - documented in this encounter Discharge Instructions * Discharge Instructions* Mary May MD - 03/24/2020 10:28 PM EDT You should return to the emergency department if your symptoms worsen or do not resolve. In addition, return if: - You have a fever (greater than 101 degrees) - You have chest pain, shortness of breath, abdominal pain, or uncontrollable vomiting - You are unable to eat or drink - You pass out - You have difficulty moving your arms or legs - You have difficulty speaking or slurred speech - Or you have any concern that you feel needs acute physician evaluation. documented in this encounter Medications at Time of Discharge hydrocortisone (CORTEF) 5 MG tablet Take 5 tablets for 5 days followed by 3 tablets for 7 days followed by 1 tablet for 7 days. 53 tablet 12/07/2019 metroNIDAZOLE (METROCREAM) 0.75 % cream Apply topically 2 times a day. 45 g 12/07/2019 pantoprazole (PROTONIX) 40 MG tablet 10/18/2019 traMADoL (ULTRAM) 50 mg tablet 11/15/2019 documented as of this encounter Progress Notes * Rubia Amador MD - 03/24/2020 2:52 PM EDT ED Attending Attestation Note Date of service: 03/24/2020 This patient was seen by the resident physician. I have seen and examined the patient, agree with the workup, evaluation, management and diagnosis. The care plan has been discussed and I concur. My assessment reveals a 59 y.o. female with PMH of Crohn's disease witih known colocutaneous fistula who presents complaining of pain and swelling of her left buttock in the area where she has the known fistula as well as stating that she wishes to establish care with gastroenterology here at . On exam patient is well-appearing and in no distress. Abdomen is soft and nontender. documented in this encounter H&P Notes * Mary May MD - 03/24/2020 2:52 PM EDT [facility] ED Note Date of Service: 03/24/2020 Reason for Visit: Rectal Pain Patient History HPI Marleni Sy is a 59 y.o. female with a PMHx of Chron's Colitis who is presenting with pain and swelling of her left buttock. Patient is presenting today with multiple concerns including pain and swelling of her left buttock and disatisfaction the the GI care she is receiving at [facility]. Patient state she has been noticing some swelling and hardness on the left side of her buttock. This has been happening for the past two weeks. She states sometimes it will get big and red and not drain anything and then it will go back down and just become hard. Patient has a known colonocutaneousfistula there. She states she called her GI doctor and he gave her an RX for flagyl which she has been taking and it has been helping. She is also here today to try to res-establish care with GI at . Patient states she was previously on Remicaide and under the care of the doctors after she wasdischarged from the hospital in November. States she has been taking 15-18 Imodium pills per day. She d enies any lightheadedness, syncope, or chest pain. She denies any fevers or chills. She denies any abdominal pain. She denies any nausea or vomiting. She denies any blood in her stool or melena. Other than stated above, no additional aggravating or alleviating factors are noted. Past Medical History: Diagnosis Date ??? Crohn's colitis (CMS Dx) ??? Fistula Past Surgical History: Procedure Laterality Date ??? COLONOSCOPY N/A 12/06/2019 Procedure: COLONOSCOPY W/ OR W/O BIOPSY; Surgeon: Maverick Campbell MD; Location: ENDOSCOPY; Service: Gastroenterology; Laterality: N/A; ??? ESOPHAGOGASTRODUODENOSCOPY N/A 12/06/2019 Procedure: EGD WITH BIOPSY; Surgeon: Maverick Campbell MD; Location: ENDOSCOPY; Service: Gastroenterology; Laterality: N/A; Patient reports that she has never smoked. She has never used smokeless tobacco. No history on filefor alcohol and drug. Discharge Medication List as of 03/24/2020 10:32 PM CONTINUE these medications which have NOT CHANGED Details hydrocortisone (CORTEF) 5 MG tablet Take 5 tablets for 5 days followed by 3 tablets for 7 days followed by 1 tablet for 7 days., Normal, Disp-53 tablet, R-0 metroNIDAZOLE (METROCREAM) 0.75 % cream Apply topically 2 times a day., Starting 12/07/2019, Normal, Disp-45 g, R-0 pantoprazole (PROTONIX) 40 MG tablet Starting 10/18/2019, Historical Med traMADoL (ULTRAM) 50 mg tablet Starting Mon11/15/2019, Historical Med Allergies: Allergies as of 03/24/2020 - Fully Reviewed 03/24/2020 Allergen Reaction Noted ??? Sulfa (sulfonamide antibiotics) Itching and Rash 12/03/2019 All nursing notes and triage notes were appropriately reviewed in the course of the creation of this note. Review of Systems ROS: Pertinent positive and negative findings as documented in the HPI. Otherwise all other systemswere reviewed and were negative. Physical Exam Vitals: 03/24/20 1455 03/24/20 1924 03/24/20 2158 BP: 94/82 136/82 130/74 BP Location: Left arm Left arm Left arm Patient Position: Sitting Sitting Sitting Pulse: 83 63 67 Resp: 18 16 16 Temp: 98.1 ??F (36.7 ??C) 97.5 ??F (36.4 ??C) 97.9 ??F (36.6 ??C) TempSrc: Oral Oral Oral SpO2: 100% 100% 99% Physical Exam Constitutional: General: She is not in acute distress. Appearance: She is well-developed. HENT: Head: Normocephalic and atraumatic. Eyes: Pupils: Pupils are equal, round, and reactive to light. Neck: Musculoskeletal: Normal range of motion and neck supple. Trachea: No tracheal deviation. Cardiovascular: Rate and Rhythm: Normal rate and regular rhythm. Heart sounds: Normal heart sounds. No murmur. No friction rub. No gallop. Pulmonary: Effort: Pulmonary effort is normal. Breath sounds: Normal breath sounds. No wheezing or rales. Abdominal: General: There is no distension. Palpations: Abdomen is soft. Tenderness: There is no abdominal tenderness. There is no guarding. Genitourinary: Rectum: No tenderness or anal fissure. Comments: Patient with induration noted on the 9 o'clock position of her left buttock. Overlying skin does not appear cellulitic, is just hard to palpation. No active drainage, no fluctuance. Did nothave any evidence of anal or perianal abscesses Musculoskeletal: Normal range of motion. General: No deformity. Skin: General: Skin is warm and dry. Findings: No rash. Neurological: Mental Status: She is alert and oriented to person, place, and time. Cranial Nerves: No cranial nerve deficit. Psychiatric: Behavior: Behavior normal. Diagnostic Studies Labs: Please see electronic medical record for any tests performed in the ED Radiology: No orders to display EKG Interpretation Interpreted by emergency department physician Rhythm: normal sinus Rate: normal Downing: normal Ectopy: none Conduction: normal ST Segments: no acute change T Waves: no acute change Q Waves: none Clinical Impression: no acute changes Mary May Emergency Department Procedures None ED Course and MDM Marleni Sy is a 59 y.o. female with a history and presentation as described above in HPI. The patient was evaluated by myself and the ED Attending Physician and R4. All management and disposition plans were discussed and agreed upon. Upon presentation, the patient was well-appearing, afebrile and hemodynamically stable. Her abdomenis soft and nontender. On rectal exam she does not have any anal or perianal abscess. Patient does have an area of induration at the 9 o'clock position on her buttock, correlating with previous documented colonoutaneous fistula. Labs showed normal VBG with no acid based disturbances, and normal lactate. Patient did not have any evidence of leukocytosis and had her baseline anemia. Her renal panelwas significant for a mild hypokalemia of 3.3 but otherwise stable electrolytes and kidney function. Patient's LFTs are at baseline. Her markers were obtained to 8 outpatient workup which did show an elevation in her CRP to 86.4 and ESR of 45. Patient was given a referral for outpatient gastroenterology. I gave the patient strict ED return precautions and she expressed understanding. At this time, the patient was deemed appropriate for discharge. My customary discharge instructions, including strict return precautions for new or worsening symptoms concerning to the patient, were provided. All of patient's questions were answered satisfactorily, and she was subsequently sent home in stable condition. Medications received during this ED visit: Medications traMADoL (ULTRAM) tablet 100 mg (100 mg Oral Self-Administered 03/24/202126) potassium chloride (KLOR-CON M20) CR tablet 20 mEq (20 mEq Oral Given 03/24/202138) Impression 1. Crohn's disease with fistula, unspecified gastrointestinal tract location ([facility] Dx) Plan 1. The patient is to be discharged home in stable/improved condition. 2. Workup, treatment and diagnosis were discussed with the patient and/or family members; the patient agrees to the plan and all questions were addressed and answered. 3. The patient is instructed to return to the emergency department should her symptoms worsen or any concern she believes warrants acute physician evaluation. Mary May MD, PGY-1 Emergency Medicine Mary May MD Resident 03/24/20 3269 Cosigned by Rubia Amador MD at 03/25/2020 12:01 AM EDT documented in this encounter Nursing Notes * Susan Mcdaniel RN - 03/24/2020 2:53 PM EDT Pt states she has a fistula and has an abscess that has developed the last few days documented in this encounter ED Notes * Chase Araujo RN - 03/24/2020 10:39 PM EDT Pt verbalizes understanding of discharge instructions and has been given the opportunity to ask questions. Due to infection precautions, patient is unable to sign at this time. * Mya Tony RN - 03/24/2020 7:22 PM EDT Bed: E01U Expected date: Expected time: Means of arrival: Comments: * Essence Winchester - 03/24/2020 2:52 PM EDT Lab Collection Status: documented in this encounter Plan of Treatment Scheduled Referrals Name Type Priority Associated Diagnoses Order Schedule Gastroenterology referral Outpatient Referral Routine Ordered: 03/24/2020 documented as of this encounter Procedures Procedure Name Priority Date/Time Associated Diagnosis Comments EKG REPORT - SCAN 03/31/2020 9:0 8 PM EDT VENOUS BLOOD GAS, LINE/SYRINGE STAT 03/24/2020 9:19 PM EDT HEPATIC FUNCTION PANEL STAT 03/24/2020 9:19 PM EDT SED RATE STAT 03/24/2020 9:19 PM EDT C-REACTIVE PROTEIN Routine 03/24/2020 9: 19 PM EDT LIPASE STAT 03/24/2020 9:19 PM EDT ED ECG 12-LEAD (MUSE) STAT 03/24/2020 8:37 PM EDT LACTIC ACID, VENOUS, WHOLE BLOOD, [facility] STAT 03/24/2020 5:03 PM EDT DIFFERENTIAL STAT 03/24/2020 5:03 PM EDT CBC STAT 03/24/2020 5:03 PM EDT BASIC METABOLIC PANEL STAT 03/24/2020 5:03 PM EDT documented in this encounter Results * EKG REPORT - SCAN (03/31/2020 9:08 PM EDT) us Scanning Uchhim SCAN DOCS - NO RESULTS Final Res ult * Lipase (03/24/2020 9:19 PM EDT) Pathologist [facility] Lipase 9 4 - 82 U/L 03/24/2020 10:00 PM EDT [facility] Plasma specimen (specimen) 03/24/2020 9:19 PM EDT 03/24/2020 9:35 PM EDT us Mary May MD LAB BLOOD ORDERABLES Final R esult [facility] [address] [place] [address], [facility] * (ABNORMAL) Hepatic Function Panel (03/24/2020 9:19 PM EDT) Total Bilirubin 0.4 0.0 - 1.5 mg/dL 03/24/2020 10:00 PM EDT [facility] Bilirubin, Direct 0.08 0.00 - 0.40 mg/dL 03/24/2020 10:00 PM EDT [facility] AST 11(L) 13 - 39 U/L 03/24/2020 10:00 PM EDT [facility] ALT 6(L) 7 - 52 U/L 03/24/2020 10:00 PM EDT [facility] Alkaline Phosphatase 82 36 - 125 U/L 03/24/2020 10:00 PM EDT [facility] Total Protein 7.1 6.4 - 8.9 g/dL 03/24/2020 10:00 PM EDT [facility] Albumin 3.7 3.5 - 5.7 g/dL 03/24/2020 10:00 PM EDT [facility] Bilirubin, Indirect 0.32 0.00 - 1.10 mg/dL 03/24/2020 10:00 PM EDT [facility] Plasma specimen (specimen) 03/24/2020 9:19 PM EDT 03/24/2020 9:35 PM EDT Mary May MD LAB BLOOD ORDERABLES Final R esult Performing Organization Address City/[facility]/ZIP Co de Phone Number [facility] [address] * (ABNORMAL) C-reactive protein (03/24/2020 9:19 PM EDT) CRP 86.4(H) 1.0 - 10.0 mg/L 03/24/2020 10:00 PM EDT [facility] Plasma specimen (specimen) 03/24/2020 9:19 PM EDT 03/24/2020 9:35 PM EDT Mary May MD LAB BLOOD ORDERABLES Final R esult [facility] [address] * (ABNORMAL) ESR (03/24/2020 9:19 PM EDT) Sed Rate 45(H) 0 - 30 mm/hr 03/24/2020 10:04 PM EDT [facility] Whole blood specimen (specimen) 03/24/2020 9:19 PM EDT 03/24/2020 9:36 PM EDT us Mary May MD LAB BLOOD ORDERABLES Final R esult [facility] [address] [place] [address], [facility] * (ABNORMAL) Venous Blood Gas, Line/Syringe (03/24/2020 9:19 PM EDT) PH-Line Draw 7.36 7.32 - 7.42 03/24/2020 9:26 PM EDT [facility] PCO2-Line Draw 52(H) 41 - 51 mm Hg 03/24/2020 9:26 PM EDT [facility] PO2-Line Draw 15(L) 25 - 40 mm Hg 03/24/2020 9:26 PM EDT [facility] HCO3-Line Draw 29(H) 24 - 28 mmol/L 03/24/2020 9:26 PM EDT [facility] CO2 Content-Line Draw 31(H) 25 - 29 mmol/L 03/24/2020 9:26 PM EDT [facility] Base Excess-Line Draw 3.0 -2.0 - 3.0 mmol/L 03/24/2020 9:26 PM EDT [facility] %HBO2-Line Draw 16.6(L) 40.0 - 70.0 % 03/24/2020 9:26 PM EDT [facility] Carboxyhgb-Morena e Draw 0.8 0.0 - 2.0 % 03/24/2020 9:26 PM EDT [facility] Comment: CARBOXYHEMOGLOBIN (CO) REFERENCE RANGES: Non-Smokers: ??<2 % ? Smokers: ??<8 % TOXIC: >20 % Methemoglobin- Line Draw 0.5 0.0 - 1.5 % 03/24/2020 9:26 PM EDT [facility] Reduced Hemoglobin-Morena e Draw 82.1(H) 0.0 - 5.0 % 03/24/2020 9:26 PM EDT [facility] Venous (qualifier value) 03/24/2020 9:19 PM EDT 03/24/2020 9:24 PM EDT Rubia Amador MD LAB BLOOD ORDERABLES Final Resu lt Performing Organization Address [facility] Co de Phone Number [facility] [address] [place] [address], [facility] * ECG for indication of overdose (03/24/2020 8:37 PM EDT) 03/24/2020 8:37 PM EDT Narrative MUSE - 03/25/2020 8:09 AM EDT Ventricular Rate: ??62 ??BPM Atrial Rate: ??62 ??BPM P-R Interval: ??132 ??ms QRS Duration: ??96 ??ms QT: ??420 ??ms QTc: ??426 ??ms P Downing: ??56 ??degrees R Downing: ??23 ??degrees T Downing: ??39 ??degrees Diagnosis Line: ??INTERPRETATION NOT AVAILABLE--ECG READ IN ER ^ Confirmed by PHYSICIAN, ER ([id number]), advertising editor SUNG CARTER ([id number]) on 03/25/2020 8:09:27 AM Mary May MD ECG ORDERABLES Final Result Performing Organization Address [facility] Co de Phone Number MUSE * Lactic acid, venous (03/24/2020 5:03 PM EDT) Lactate, Hari 0.5 0.5 - 2.2 mmol/L 03/24/2020 5:22 PM EDT [facility] Whole blood specimen (specimen) 03/24/2020 5:03 PM EDT 03/24/2020 5:19 PM EDT Rubia Amador MD LAB BLOOD ORDERABLES Final Resu lt Performing Organization Address [facility] Co de Phone Number [facility] [address] * (ABNORMAL) Basic metabolic panel (03/24/2020 5:03 PM EDT) Sodium 136 133 - 146 mmol/L 03/24/2020 5:50 PM EDT [facility] Potassium 3.3(L) 3.5 - 5.3 mmol/L 03/24/2020 5:50 PM EDT [facility] Chloride 100 98 - 110 mmol/L 03/24/2020 5:50 PM EDT [facility] CO2 29 21 - 33 mmol/L 03/24/2020 5:50 PM EDT [facility] Anion Gap 7 3 - 16 mmol/L 03/24/2020 5:50 PM EDT [facility] BUN 8 7 - 25 mg/dL 03/24/2020 5:50 PM EDT [facility] Creatinine 0.72 0.60 - 1.30 mg/dL 03/24/2020 5:50 PM EDT [facility] Glucose 95 70 - 100 mg/dL 03/24/2020 5:50 PM EDT [facility] Calcium 9.0 8.6 - 10.3 mg/dL 03/24/2020 5:50 PM EDT [facility] Osmolality, Calculated 280 278 - 305 mOsm/kg 03/24/2020 5:50 PM EDT [facility] eGFR AA CKD-EPI >90 See note. 0 5:50 PM EDT [facility] Comment: As of 2015 the estimated [...] equation to estimate glomerular filtration rate. ??Jenny Spinner Operator Med. 2009:150(9):604-12 eGFR NONAA CKD-EPI >90 See note. 2019 5:50 PM EDT [facility] Comment: As of 2015 the estimated [...] equation to estimate glomerular filtration rate. ??Jenny Spinner Operator Med. 2009:150(9):604-12 Plasma specimen (specimen) 03/24/2020 5:03 PM EDT 03/24/2020 5:19 PM EDT Rubia Amador MD LAB BLOOD ORDERABLES Final Resu lt [facility] [address] [place] [address], [facility] * Differential (03/24/2020 5:03 PM EDT) Neutrophils Relative 67.6 40.0 - 80.0 % 03/24/2020 5:29 PM EDT [facility] Lymphocytes Relative 19.7 15.0 - 45.0 % 03/24/2020 5:29 PM EDT [facility] Monocytes Relative 11.3 0.0 - 12.0 % 03/24/2020 5:29 PM EDT [facility] Eosinophils Relative 1.0 0.0 - 8.0 % 03/24/2020 5:29 PM EDT [facility] Basophils Relative 0.4 0.0 - 1.0 % 03/24/2020 5:29 PM EDT [facility] nRBC 0 0 - 0 /100 WBC 03/24/2020 5:29 PM EDT [facility] Neutrophils Absolute 5,205 1,500 - 7,800 /uL 03/24/2020 5:29 PM EDT [facility] Lymphocytes Absolute 1,517 850 - 3,900 /uL 03/24/2020 5:29 PM EDT [facility] Monocytes Absolute 870 200 - 950 /uL 03/24/2020 5:29 PM EDT [facility] Eosinophils Absolute 77 15 - 500 /uL 03/24/2020 5:29 PM EDT [facility] Basophils Absolute 31 0 - 200 /uL 03/24/2020 5:29 PM EDT [facility] Whole blood specimen (specimen) 03/24/2020 5:03 PM EDT 03/24/2020 5:22 PM EDT Rubia Amador MD LAB BLOOD ORDERABLES Final Resu lt [facility] [address] * (ABNORMAL) CBC (03/24/2020 5:03 PM EDT) WBC 7.7 3.8 - 10.8 10E3/uL 03/24/2020 5:29 PM EDT [facility] RBC 4.20 3.80 - 5.10 10E6/uL 03/24/2020 5:29 PM EDT [facility] Hemoglobin 11.0(L) 11.7 - 15.5 g/dL 03/24/2020 5:29 PM EDT [facility] Hematocrit 34.4(L) 35.0 - 45.0 % 03/24/2020 5:29 PM EDT [facility] MCV 81.8 80.0 - 100.0 fL 03/24/2020 5:29 PM EDT [facility] MCH 26.3(L) 27.0 - 33.0 pg 03/24/2020 5:29 PM EDT [facility] MCHC 32.2 32.0 - 36.0 g/dL 03/24/2020 5:29 PM EDT [facility] RDW 16.0(H) 11.0 - 15.0 % 03/24/2020 5:29 PM EDT [facility] Platelets 268 140 - 400 10E3/uL 03/24/2020 5:29 PM EDT [facility] MPV 7.2(L) 7.5 - 11.5 fL 03/24/2020 5:29 PM EDT [facility] Whole blood specimen (specimen) 03/24/2020 5:03 PM EDT 03/24/2020 5:22 PM EDT Rubia Amador MD LAB BLOOD ORDERABLES Final Resu lt [facility] [address] documented in this encounter Visit Diagnoses Diagnosis Crohn's disease with fistula, unspecified gastrointestinal tract location ([facility])- Primary documented in this encounter Administered Medications Inactive Administered Medications - up to 3 most recent administrations Medication Order MAR Action Action Date Dose Rate Site potassium chloride (KLOR-CON M20) CR tablet 20 mEq 20 mEq, Oral, Once, On Mon03/24/20 at 2131, For 1 dose, FOR PATIENTS UNABLE TO SWALLOW LARGE TABLETS, but can take liquids orally: Place tablet(s) in room temperature or warm water (@ 2-4 ounces) and allow to disintegrate for ~ 30 seconds. Then stir well and administer immediately before particles settle. NOTE: not all particles will go into solution. DO NOT CRUSH or CHEW; TABLET(S) MAY BE SPLIT Given 03/24/2020 9:39 PM EDT 20 mEq traMADoL (ULTRAM) tablet 100 mg 100 mg, Oral, Once, On Mon03/24/20 at 2126, For 1 dose Self-Administered 03/24/2020 9:27 PM EDT 100 mg documented in this encounter Active and Recently Administered Medications Times are shown in EDT. Scheduled Medication Order 03/22/2020 03/23/2020 03/24/2020 potassium chloride (KLOR-CON M20) CR tablet 20 mEq (COMPLETED) 20 mEq, Oral, Once, On Mon03/24/20 at 2131, For 1 dose, FOR PATIENTS UNABLE TO SWALLOW LARGE TABLETS, but can take liquids orally: Place tablet(s) in room temperature or warm water (@ 2-4 ounces) and allow to disintegrate for ~ 30 seconds. Then stir well and administer immediately before particles settle. NOTE: not all particles will go into solution. DO NOT CRUSH or CHEW; TABLET(S) MAY BE SPLIT 2138 (Given - Provid er: Skye Minaya RN) traMADoL (ULTRAM) tablet 100 mg (COMPLETED) 100 mg, Oral, Once, On Mon03/24/20 at 2126, For 1 dose 2126 (Self-Administe red - Provider: Skye Minaya RN) documented in this encounter Care Teams Cloth Finishing Range Tender Relationship Specialty Start Date End Date Damaso Black MD [address] ABBE [place] [address] PCP - General Family Medicine 12/03/19 documented as of this encounter
--- OUTSIDE RECORDS SUMMARY | 2024-08-15 13:45 | XMS_ITS | Encounter Summary ---
Author Organization [facility] Address [address] [place] [address] Care Team Providers Care Foundation Drill Operator Helper Name Role Phone Damaso Black MD Primary Care Provider [phone] Source Comments This information has been disclosed [...] release of HIV test results or diagnoses. [id number] Health Encounter Details Date Type Department Care Team (Late st Contact Info) Description 12/18/2019 Telephone [facility] [address] [place] [address] Maverick Campbell MD [address] [facility], [address] [place] [address] Social History Tobacco Use Types Packs/Day Years [...] Telephone Encounter - Ashley Wen RN - 12/18/2019 1:15 PM EDT Returned call to patient. Let her know we are OON for her insurance. Directed her to call her insurance and see what providers they cover. Then call her PCP for referral to GI. She understands 01/[address] Campbell is cancelled. * Telephone Encounter - Shruthi Frankie Thayer - 12/18/2019 12:42 PM EDT Pt called and said she just received a missed call with a voicemail from Gi but deleted the message. Can someone please give her a call back thank you. documented in this encounter Plan of Treatment Not on file documented as of this encounter Visit Diagnoses Not on filedocumented in this encounter Care Teams Foundation Drill Operator Helper Relationship Specialty Start Date End Date Damaso Black MD [address] [place] [address] PCP - General Family Medicine 12/03/19 documented as of this encounter
--- OUTSIDE RECORDS SUMMARY | 2024-08-15 13:45 | XMS_ITS | Encounter Summary ---
Author Organization [facility] Address [address] [place] [address] Care Team Providers Care Floral Manager Name Role Phone Damaso Black MD Primary Care Provider [phone] Source Comments This information has been disclosed [...] release of HIV test results or diagnoses. 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 She notes feeling better compared to hospitalization and has had significantly decreased bowel movements on cholestyramine. 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 Prescribed Valganciclovir 900 mg bid x 3 weeks Messaged to have her scheduled at our IBD clinic documented in this encounter Plan of Treatment Not on file documented as of this encounter Visit Diagnoses Not on filedocumented in this encounter Care Teams Floral Manager Relationship Specialty Start Date End Date Damaso Black MD [address] [place] [address] PCP - General Family Medicine 12/03/19 documented as of this encounter
--- OUTSIDE RECORDS SUMMARY | 2024-08-15 13:45 | XMS_ITS | Encounter Summary ---
Author Organization [facility] Address [address] [place] [address] Care Team Providers Care Buckshot Swage Operator Name Role Phone Unavailable Primary Care Provider [...] release of HIV test results or diagnoses. [id number] Health Encounter Details Date Type Department Care Team (Late st Contact Info) Description 06/29/2017 Telephone [facility] at [address], [address] [place] [address] Chely Luke RN Social History Tobacco Use Types Packs/Day Years [...]
--- OUTSIDE RECORDS SUMMARY | 2024-08-15 13:46 | XMS_ITS | Encounter Summary ---
Author Organization [facility] rology Address [address] [place] [address] Care Team Providers Care Games Dealer Name Role Phone Swapnil Lopez MD Unavailable [phone] Damaso Black MD Primary Care Provider [phone] Darío Rubio MD Unavailable [phone] Mya Naranjo MD Unavailable [phone] Ashley Ordonez CHIPPER FEEDER Unavailable [phone] Nicole Melendez RN Unavailable Unavailable Aislinn Viera RN Unavailable Unavailable Ronit Conner RN Unavailable Unavailable Armando Vieira COSTUME DIRECTOR Unavailable Unavailable Vicki Amato RN Unavailable UnavailTrinh Soto CHIPPER FEEDER Unavailable + Selina Olsen CHIPPER FEEDER Unavailable [phone] Veda Mcfarland Clerical Staff Unavailable U navailable Reason for Visit * Reason Onset Date Comments Medication Refill 08/09/2024 Encounter Details Date Type Department Care Team (Late st Contact Info) Description 08/09/2024 Refill [facility] [address] [place] [address] Swapnil Lopez MD [address] [place] [address] Medication Refill Social History Tobacco Use Types Packs/Day Years [...] AM Gabby De La Garza RMA * Does this person have serious difficulty walking or climbing stairs? Answer Date of Assessment Author No 09/05/2017 11:13 AM Gabby De La Garza RMA * Does this person have difficulty dressing or bathing? Answer Date of Assessment Author No 09/05/2017 11:13 AM Gabby De La Garza RMA * Because of a physical, mental or emotional condition, does this person have difficulty doing errands alone such as visiting a doctor's office or shopping? Answer Date of Assessment Author No 09/05/2017 11:13 AM Gabby De La Garza RMA documented as of this encounter Mental Status * Because of a physical, mental or emotional condition, does this person have serious difficulty concentrating, remembering or making decisions? Answer Entry Date Author No 09/05/2017 11:13 AM Gabby De La Garza RMA documented in this encounter Ordered Prescriptions Prescription Sig Dispense Quantity Refills Last Filled Start Date End Date loperamide (IMODIUM) 2 mg Oral CapsuleIndications :Diarrhea, unspecified type Take 1 Capsule by mouth every 3 hours. 200 Capsule 08/09/2024 documented in this encounter Plan of Treatment Upcoming Encounters Date Type Department Care Team (Late st Contact Info) Description 09/11/2024 1:45 PM EST Office Visit [facility] [address] [place] [address] Swapnil Lopez MD [address] [place] [address] 10/21/2024 2:00 PM EST Appointment [facility] [address] [place] [id number] Jacky Shirley MD [address] [place] [address] [place]ER [place], [place] [id number] 10/23/2024 1:45 PM EST Appointment [facility] [place] [address] Olena Darby APRN [address] [place] [address] [id number] documented as of this encounter Goals Goal [...] as of this encounter Visit Diagnoses Diagnosis Diarrhea, unspecified type documented in this encounter Discontinued Medications Medication Sig Discontinue Reason Start Date End Da te loperamide (IMODIUM) 2 mg Oral CapsuleIndications:Diarr hea, unspecified type Take 1 Capsule by mouth every 3 hours. Reorder 06/20/2024 08/09/2024 documented as of this encounter Additional Health Concerns Assessment Noted Time PHQ-9 Depression Total Score: 13 024 1:47 PM EDT PHQ-2 Depression Total Score: 3 12/29/19 24 1:47 PM EDT documented as of this encounter Care Teams Games Dealer Relationship Specialty Start Date End Date Damaso Black MD [address] [place] [address] PCP - General Family Medicine 11/22/22 Swapnil Lopez MD [address] [place] [phone] Internal Medicine-Gastroenterology 02/16/22 Darío Rubio MD [address] [facility] [place] [address] Internal Medicine-Medical Oncology 12/11/23 Mya Naranjo MD [address] [place] [address] [place] [address] Family Medicine - Hospice And Palliative Medicine 01/04/24 Ashley Ordonez APRN [address] [place] [address] [place] [address] Nurse Practitioner 01/04/24 Nicole Melendez, RN Registered Nurse 01/04/24 Aislinn Viera, RN Registered Nurse 02/07/24 Ronit Conner, RN Registered Nurse 04/10/24 Armando Vieira, COSTUME DIRECTOR Manager Employee Relations 04/10/24 Vicki Amato, RN Registered Nurse 04/10/24 Trinh Bullock APRN [address] [facility] [facility] [place] [address] Nurse Practitioner Nurse Practitioner-Family 04/10/24 Selina Olsen APRN [address] [facility] [place] [address] Nurse Practitioner 04/10/24 Veda Mcfarland, Clerical Staff 05/14/24 documented as of this encounter
--- OUTSIDE RECORDS SUMMARY | 2024-08-15 13:46 | XMS_ITS | Encounter Summary ---
Author Organization [facility] Address [address] [place] [address] Care Team Providers Care Home School Teacher Name Role Phone Swapnil Lopez MD Unavailable [phone] Damaso Black MD Primary Care Provider [phone] Darío Rubio MD Unavailable [phone] Mya Naranjo MD Unavailable [phone] Ashley Ordonez TECH ED/WOODSHOP TEACHER Unavailable [phone] Nicole Melendez RN Unavailable Unavailable Aislinn Viera RN Unavailable Unavailable Ronit Conner RN Unavailable Unavailable Armando Vieira FORWARD AIR CONTROLLER/AIR OFFICER Unavailable Unavailable Vicki Amato RN Unavailable UnavailTrinh Soto TECH ED/WOODSHOP TEACHER Unavailable + Selina Olsen TECH ED/WOODSHOP TEACHER Unavailable +[phone] Veda Mcfarland Clerical Staff Unavailable U navailable Reason for Visit * Reason Onset Date Comments Medication Refill 07/26/2024 Encounter Details Date Type Department Care Team (Late st Contact Info) Description 07/26/2024 Refill [facility] [address] [place] [address] Swapnil Lopez MD [address] [place] [address] Medication Refill Social History Tobacco [...] Refills Last Filled Start Date End Date diphenoxylate-atro pine (LOMOTIL) 2.5-0.025 mg Oral TabletIndications: Crohn's disease of both small and large intestine without complication (HCC) TAKE 2 TABLETS BY MOUTH FOUR TIMES DAILY NEEDED. NO MORE THAN 8 TABLETS PER DAY 60 Tablet 3 07/26/2024 documented in this encounter Plan of Treatment Upcoming Encounters Date Type Department Care Team (Late st Contact Info) Description 09/11/2024 1:45 PM EST Office Visit [facility] [address] [place], [place] [id number] Swapnil Lopez MD [address] [place] [address] 10/21/2024 2:00 PM EST Appointment [facility] [address] [place] [address] Jacky Shirley MD [address] [facility] [place], [place] [id number] 10/23/2024 1:45 PM EST Appointment [facility] [address] [place], [place] [id number] Olena Darby APRN [address] [place] [address] [place]ER [place], [place] [id number] documented as of this encounter Goals Goal Patient Goal Type Associated Problems Recent Progress Patient-Stated? Author Breast [facility] Mary Kate Vázquez, RN Note: Patient acknowledges understanding of new diagnosis, plan of care, available resources and how to contact Nurse Navigator with any future questions or concerns. Maintain a healthy diet, exercise regularly and maintain an ideal body weight General Linda Perez, RMA documented as of this encounter Visit Diagnoses Diagnosis Crohn's disease of both small and large intestine without complication (HCC) Regional enteritis of small intestine with large intestine documented in this encounter Discontinued Medications Medication Sig Discontinue Reason Start Date End Da te diphenoxylate-atropine (LOMOTIL) 2.5-0.025 mg Oral TabletIndications:Crohn's disease of both small and large intestine without complication (HCC) TAKE 2 TABLETS BY MOUTH FOUR TIMES DAILY NEEDED. NO MORE THAN 8 TABLETS PER DAY Reorder 03/28/2024 07/26/2024 documented as of this encounter Additional Health Concerns Assessment Noted Time PHQ-9 Depression Total Score: 13 12/28/ 024 1:47 PM EDT PHQ-2 Depression Total Score: 3 12/29/19 24 1:47 PM EDT documented as of this encounter Care Teams Home School Teacher Relationship Specialty Start Date End Date Damaso Black MD [address] [place] [address] PCP - General Family Medicine 11/22/22 Swapnil Lopez MD [address] [place] [phone] Internal Medicine-Gastroenterology 02/16/22 Darío Rubio MD [address] [place] [address] [place] [address] Internal Medicine-Medical Oncology 12/11/23 Mya Naranjo MD [address] [place] [address] [place] [address] Family Medicine - Hospice And Palliative Medicine 01/04/24 Ashley Ordonez APRN [address] [place] [address] [place] [address] Nurse Practitioner 01/04/24 Nicole Melendez, RN Registered Nurse 01/04/24 Aislinn Viera, RN Registered Nurse 02/07/24 Ronit Conner, RN Registered Nurse 04/10/24 Armando Vieira, ITA Vending Machine Coin Collector 04/10/24 Vicki Amato, RN Registered Nurse 04/10/24 Trinh Bullock, YON [address] [place] [address] [place] [address] Nurse Practitioner Nurse Practitioner-Family 04/10/24 Selina Olsen, YON [address] [place] [address] [place] [address] Nurse Practitioner 04/10/24 Veda Mcfarland, Clerical Staff 05/14/24 documented as of this encounter
--- OUTSIDE RECORDS SUMMARY | 2024-08-15 13:46 | XMS_ITS ---
Author Organization [facility] Address [address] [place] [address] Phone Care Team Providers Care Animal Husbandman Name Role Phone Swapnil Lopez MD Unavailable [phone] Damaso Black MD Primary Care Provider [phone] Darío Rubio MD Unavailable [phone] Mya Naranjo MD Unavailable [phone] Ashley Ordonez ENTERPRISE MOBILITY ARCHITECT Unavailable [phone] Nicole Melendez RN Unavailable Unavailable Aislinn Viera RN Unavailable Unavailable Ronit Conner RN Unavailable Unavailable Armando Vieira SHOE CASER Unavailable Unavailable Vicki Amato RN Unavailable UnavailTrinh Soto ENTERPRISE MOBILITY ARCHITECT Unavailable [phone] Selina Olsen ENTERPRISE MOBILITY ARCHITECT Unavailable [phone] Veda Mcfarland Clerical Staff Unavailable U navailable Active Problems Patient Care Coordination No te Formatting of this note migh t be different from the original. 07/09/19 Letter sent advising patient she is due for a mammogram. EB Controlled agreement signed for lomotil 11/11/20 with Problem Noted Date Diagnosed Date Secondary malignant neoplasm of bone 01/10/2024 Palliative care by specialist 12/29/2023 Cancer related pain 12/29/2023 Invasive ductal carcinoma of breast, left 2023 Cancer Staging:Clinical stage from 11/13/2023:Stage IIA(cT2, cN1, cM0, G2, ER+, TX+, HER2-) - Signed by Ian Ruiz MD on 11/18/2023 De Quervain's tenosynovitis 03/24/2021 Overview (03/25/2021): Added automatically from request for surgery [id number] De Quervain thyroiditis 02/05/2021 Overview (02/05/2021): Added automatically from request for surgery [id number] De Quervain's tenosynovitis, left 02/05/2021 Overview (02/12/2021): Added automatically from request for surgery [id number] Ulcer of great toe, left, with necrosis of muscl e 11/10/2017 Crohn's disease of colon with complication 11/10 Laceration of left great toe without foreign body present or damage to nail 11/10/2017 Anxiety and depression 07/25/2017 Assessment & Plan (07/25/2017 12:19 PM EDT): Agreed to let her try klonopin. Will also start lexapro. She is high risk using klonopin given her history of alcoholism and will need to watch closely. Hope that terminal operations supervisor the ssri will help and will no longer need klonopin. patricia reviewed and ok. Will need follow up in about 4-6 weeks. Food impaction of esophagus 06/25/2016 Exacerbation of Crohn's disease 04/02/2015 Alcoholism Assessment & Plan (07/25/2017 12:20 PM EDT): Denies current use. Crohn's Assessment & Plan (07/25/2017 12:20 PM EDT): Hasn't seen her regular GI in some time and currently not on any medication. Encouraged her to do so. Will continue to work on this. History of stomach cancer Depression Current Oncology Plans ONC ribociclib (600) d1-21 + anastrozole (1) d1-28 Q28D* Plan Start Date: 01/03/2024 Plan Provider:Darío Rubio MD Linked Problems Invasive ductal carcinoma of breast, left (HCC) Treatment Medications Current Day (Day 1 , Cycle 0 - Planned for 01/03/2024) Next Day (Day 1, Cycle 1 - Planned for 01/04/2024) No medications scheduled. No medications schedul ed. No medications scheduled. Other Current Plans [facility] FOR CHRON'S DISEASE AND ULCERATIVE COLITIS - NEW START * Plan Start Date:02/16/2022 Plan Provider:Swapnil Lopez MD Linked Problems Crohn's disease with complic ation, unspecified gastrointestinal tract location (HCC) Treatment Medications No medications scheduled. Past Plans Radiation Treatments * No radiation treatments are documented for this patient in [facility]. Treatments may have been administered in another system.
--- OUTSIDE RECORDS SUMMARY | 2024-08-15 13:46 | XMS_ITS | Clinical Summary ---
Author Organization [facility] Address [address] [place] [address] Phone Care Team Providers Care Chemotherapist Name Role Phone Swapnil Lopez MD Unavailable [phone] Damaso Black MD Primary Care Provider [phone] Darío Rubio MD Unavailable [phone] Mya Naranjo MD Unavailable [phone] Ashley Ordonez ENDLESS STEAMER TENDER Unavailable [phone] Nicole Melendez RN Unavailable Unavailable Aislinn Viera RN Unavailable Unavailable Ronit Conner RN Unavailable Unavailable Armando Vieira DRIVER WHEELCHAIR Unavailable Unavailable Vicki Amato RN Unavailable UnavailTrnih Soto ENDLESS STEAMER TENDER Unavailable [phone] Selina Olsen ENDLESS STEAMER TENDER Unavailable [phone] Veda Mcfarland Clerical Staff Unavailable U navailable Allergies Active Allergy Reactions Criticality Noted Date Comments Fat Zturcmgx-Vmpmx-Ekf-Lipid Rash,Myalgia 04/15 Asxrg-Gyljn-1-Ugs-Ijp-Gceuxv Hives 022 Sulfa (Sulfonamide Antibiotics) Medications triamcinolone (KENALOG) 0.1 % Top CreamIndications: Skin rash Apply topically 3 times daily. 80 g 4 Active acyclovir (ZOVIRAX) 800 mg Oral Tablet Take 1 tablet 5 times a day by oral route for 7 days. 4 Active ondansetron (ZOFRAN) 4 mg Oral Tablet Take 4 mg by mouth. 2 Active predniSONE (DELTASONE) 10 mg Oral Tablet Take 1 Tablet by mouth daily. 90 Tablet 3 4 Active promethazine (PHENERGAN) 12.5 mg Oral Tablet Take 1 Tablet by mouth every 6 hours as needed for Nausea. 60 Tablet 5 4 Active diphenoxylate-atr opine (LOMOTIL) 2.5-0.025 mg Oral TabletIndications :Crohn's disease of both small and large intestine without complication (HCC) TAKE 2 TABLETS BY MOUTH FOUR TIMES DAILY NEEDED. NO MORE THAN 8 TABLETS PER DAY 60 Tablet 3 4 Active loperamide (IMODIUM) 2 mg Oral CapsuleIndication s:Diarrhea, unspecified type Take 1 Capsule by mouth every 3 hours. 200 Capsule 4 Active traMADoL (ULTRAM) 50 mg Oral Tablet Take 50 mg by mouth every 4 hours as needed. for pain 4 Active anastrozole (ARIMIDEX) 1 mg Oral TabletIndications :Invasive ductal carcinoma of breast, left (HCC) Take 1 Tablet by mouth daily. Take with or without food 30 Tablet 11 4 Active ribociclib (KISQALI) 400 mg/day (200 mg x 2) Oral TabletIndications :Invasive ductal carcinoma of breast, left (HCC) Take 2 tablets by mouth daily for 21 days followed by 7 days off 42 Tablet 4 Active rifAXIMin (XIFAXAN) 550 mg Oral TabletIndications :Irritable bowel syndrome with diarrhea Take 1 Tablet by mouth 3 times daily for 14 days. 42 Tablet 4 08/02/20 24 Active Problems Patient Care Coordination No te [...] from 11/13/2023:Stage IIA(cT2, cN1, cM0, G2, ER+, IL+, HER2-) - Signed by Ian Ruiz MD on 11/18/2023 De Quervain's tenosynovitis 03/24/2021 Overview (03/25/2021): Added automatically from request for surgery [id number] De Quervain thyroiditis 02/05/2021 Overview (02/05/2021): Added automatically from request for surgery [id number] De Quervain's tenosynovitis, left 02/05/2021 Overview (02/12/2021): Added automatically from request for surgery [id number] Ulcer of great toe, left, with necrosis [...] will need to watch closely. 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) (Primary Dx); Encounter for chemotherapy management; Encounter for monitoring anastrozole therapy; Invasive ductal carcinoma of breast, left (HCC) Discharge Disposition: Home or Self Care 08/11/2024 Travel 08/09/2024 3:18 PM EST - 08/09/2024 11:59 PM EST [facility] [address] [place] [address] Darío Rubio MD Invasive ductal carcinoma of breast, left (HCC) Discharge Disposition: Home or Self Care 08/09/2024 Refill [facility] [address] [facility], [place] [address] Swapnil Lopez MD Medication Refill 07/26/2024 Refill [facility] [place] [address] Darío Rubio MD Medication Refill 07/26/2024 Refill [facility] [address] [facility], [place] [address] Swapnil Lopez MD Medication Refill 07/26/2024 Refill [facility] [address] [facility], [facility] Swapnil Lopez MD Medication Refill 07/25/2024 Refill [facility] [address] [facility], [place] [address] Swapnil Lopez MD Medication Refill 07/22/2024 Refill [facility] [address] [facility], [place] [address] Swapnil Lopez MD Medication Refill 07/19/2024 Orders Only [facility] [address] [place] [address] Swapnil Lopez MD Irritable bowel syndrome with diarrhea (Primary Dx) 07/16/2024 Refill [facility] [place] [address] Darío Rubio MD Medication Refill 07/16/2024 Specialty Pharmacy [facility] [address] [id number] Shruthi Veras CPhT Pharmacy Oncology Management (Ribociclib) 07/03/2024 2:56 PM EDT - 07/03/2024 11:59 PM EDT Hospital Encounter [facility] [place] [address] Heather Quiroz MD Kurian, Matthew, MD Invasive ductal carcinoma of left breast, stage 4 (HCC) (Primary Dx); Encounter for chemotherapy management; Use of anastrozole Discharge Disposition: Home or Self Care 07/03/2024 Orders Only [facility] [place] [address] Darío Rubio MD Invasive ductal carcinoma of breast, left (HCC) (Primary Dx) 07/03/2024 Telephone [facility] [place] [phone] Darío Rubio MD Schedule Appointment (CT CAP/Lab + OV ) 06/28/2024 Travel 06/20/2024 Refill [facility] [place] [phone] Darío Rubio MD Medication Refill 06/20/2024 Specialty Pharmacy [facility] [address] [place] [address] Shruthi Caruso CPhT Pharmacy Oncology Management (Ribociclib) 06/19/2024 Refill [facility] [address] [place] [address] Selina Olsen APRN Medication Refill 06/07/2024 1:33 PM EDT - 06/07/2024 11:59 PM EDT Hospital Encounter [facility] [place] [phone] Heather Quiroz MD [place], Liberty E, ENDLESS STEAMER TENDER Invasive ductal carcinoma of breast, left (HCC) (Primary Dx); Carcinoma of breast metastatic to bone, unspecified laterality (HCC); Encounter for medication monitoring; Aromatase inhibitor use Discharge Disposition: Home or Self Care 06/07/2024 1:27 PM EDT - 06/07/2024 1:32 PM EDT Hospital Encounter [facility] [place] [phone] Heather Quiroz MD Palliative care by specialist; Cancer related pain; Invasive ductal carcinoma of breast, left (HCC); Secondary malignant neoplasm of bone (HCC); Encounter for medication monitoring Discharge Disposition: Home or Self Care 06/07/2024 12:30 PM EDT - 06/07/2024 1:26 PM EDT Hospital Encounter [facility] [address] [phone] Darío Rubio MD Invasive ductal carcinoma of left breast, stage 4 (HCC) Discharge Disposition: Home or Self Care 06/05/2024 7:41 AM EDT - 06/05/2024 11:59 PM EDT Hospital Encounter [facility] [address] [place] [address] Heather [facility] Secondary malignant neoplasm of bone (HCC) (Primary Dx) Discharge Disposition: Home or Self Care 06/02/2024 Travel 05/27/2024 Telephone [facility] [place], [place] [phone] Darío Rubio MD Schedule Appointment (F/U) 05/24/2024 Orders Only [facility] [place] [address] Aislinn Champion, RN Secondary malignant neoplasm of bone (HCC) (Primary Dx) 05/24/2024 Telephone [facility] [place] [address] Ai Hobbs MA 05/21/2024 Refill [facility] [place], [place] [phone] Darío Rubio MD Medication Refill 05/21/2024 Refill [facility] [address] [facility] [place] [address] Selina Olsen APRN Medication Refill 05/21/2024 Refill [facility] [place] [address] Darío Rubio MD Medication Refill 05/21/2024 Specialty Pharmacy [facility] [address] [place] [address] Shruthi Caruso meat washer Pharmacy Oncology Management (Ribociclib) 05/15/2024 Orders Only [facility] [address] [place] [address] Jacky Shirley MD Crohn's disease of colon with complication (HCC) (Primary Dx); Secondary malignant neoplasm of bone (HCC) from Last 3 Months Surgical History Surgery Date Site/Laterality Comments SECTION x2 COLON SURGERY x11 crohns COLOSTOMY UPPER GASTROINTESTINAL ENDOSCOPY 06/25/2016 N/A ESOPHAGOGASTRODUODENOSCOPY with biopsy with conscious sedation; Surgeon: Christopher Matthews MD PHD; Location: [facility] END[facility]COPY; Service: Endoscopy ILEOSTOMY OR JEJUNOSTOMY COLONOSCOPY ANTERIOR COMPARTMENT DECOMPRESSION 04/15/2021 Left LEFT DEQUERVAINS RELEASE ; Surgeon: Henry Lantigua MD; Location: [facility]; Service: Hand BREAST BIOPSY 10/26/2023 Left 2:00 BREAST BIOPSY 10/26/2023 Left axilla node Medical History Medical History Date Comments Crohn disease (HCC) Cancer (HCC) Anemia Encounter for blood transfusion Lab test positive for detect ion of COVID-19 virus 02/12/2021 02/16/21=pt stated that she t ested COVID positive on 02/12/21 @ [facility], instructed pt to notify Dr Lantigua's office to reschedule surgery Breast cancer (HCC) Family History Medical History Relation Name Comments Heart Disease Father Relation Name Status Comments Father Alive Mother Alive Social History Tobacco Use Types Packs/Day Years Used Date Smoking Tobacco: Never Smokeless Tobacco: Never Tobacco Cessation:Counseling Given: Not Answered Alcohol Use Standard Drinks/Week Comments Not Currently 0 (1 standard drink = 0.6 oz pur e alcohol) PHQ-2 Answer Date Recorded PHQ-2 Total Score 3 12/29/2023 Comments No Sex and Gender Information Value Date Recorded Sex Assigned at Not on file Legal Sex Female 8:28 AM EDT Gender Identity Not on file Sexual Orientation Not on file Obstetrics History Last Filed Vital Signs Vital Sign Reading Time Taken Comments Blood Pressure 123/83 06/07/2024 1:38 PM EDT Pulse 71 06/07/2024 1:38 PM EDT Temperature 37 ??C (98.6 ??F) 06/07/2024 1:38 PM EDT Respiratory Rate 16 06/07/2024 1:38 PM EDT Oxygen Saturation 100% 06/07/2024 1:38 PM EDT Inhaled Oxygen Concentration - - Weight 58.6 kg (129 lb 1.6 oz) 06/07/2024 1:38 P M EDT Height 157.5 cm (5' 2 ) 06/07/2024 1:38 PM EDT Body Mass Index 23.61 06/07/2024 1:38 PM EDT Plan of Treatment Upcoming Encounters Date Type Department Care Team (Late st Contact Info) Description 09/11/2024 1:45 PM EST Office Visit [facility] [address] [place] [facility] [place] [address] Swapnil Lopez MD [address] [place] [address] 10/21/2024 2:00 PM EST Appointment [facility] [address] [place] [address] Jacky Shirley MD [address] [place] [address] [place] [address] 10/23/2024 1:45 PM EST Appointment [facility] [place] [address] Olena Darby APRN [address] [place] [address] [place] [address] Health Maintenance Due Date Last Done Comments Annual Wellness Exam 1963 COVID-19 Vaccine (#1) 1966 Pneumococcal Vaccine 0-64 (1 of 2 - PCV) 1967 DTaP/TDaP/Td (1 - Tdap) 1980 Zoster (1 of 2) 1980 Cervical Cancer Screening 1982 Pap Smear 1982 HPV/Pap Cotest 1991 Cologuard 2006 FIT 2006 Sigmoidoscopy 2006 Virtual Colonography 2006 Influenza Vaccine (#1) 2024 7 (Declined) Breast Cancer Screening 10/12/2025 10/12/2023 Colon Cancer Screening 12/05/2029 Colonoscopy 12/05/2029 12/06/2019 Hepatitis C Screening Completed 12/26/2019 Hepatitis B Vaccine Aged Out No longe r eligible based on patient's age to complete this topic Goals Goal Patient Goal Type Associated Problems Recent Progress Patient-Stated? Author Breast [facility] Breast [facility] Mary Kate Vázquez RN Note: Patient acknowledges understanding of new diagnosis, plan of care, available resources and how to contact Nurse Navigator with any future questions or concerns. Maintain a healthy diet, exercise regularly and maintain an ideal body weight General No Linda Walden, RMA Procedures Procedure Name Priority Date/Time Associated Diagnosis Comments CT CHEST ABDOMEN PELVIS WO ORAL WITH IV CONTRAST ANNA 08/09/2024 3:47 PM EST Invasive ductal carcinoma of breast, left (HCC) CREATININE ISTAT Routine 08/09/2024 3:37 PM EST COMPREHENSIVE METABOLIC PANEL STAT 06/07/2024 1:32 PM EDT Invasive ductal carcinoma of breast, left (HCC) Encounter for medication monitoring CBC WITH DIFF STAT 06/07/2024 1:32 PM EDT Invasive ductal carcinoma of breast, left (HCC) Encounter for medication monitoring DX BONE DENSITY AXIAL SKELETON Routine 06/07/2024 12:52 PM EDT Invasive ductal carcinoma of left breast, stage 4 (HCC) MM MAMMO DIGITAL DANIELA DIAGN BILAT Routine 10/12/2023 12:47 PM EST Lump in female breast HCV ANTIBODY SCREEN W/ REFLEX Callback 12/26/2019 3:31 PM EDT Gastroesophageal reflux disease, esophagitis presence not specified Crohn's disease of small and large intestines with complication (HCC) from Last 3 Months or Most Recently Relevant to Health Maintenance Results * CT CHEST ABDOMEN PELVIS WO ORAL WITH IV CONTRAST (08/09/2024 3:47 PM EST) Anatomical Region Laterality Modality Abdomen, Chest, Pelvis Computed Tomography 08/09/2024 3:47 PM EST Impressions 08/09/2024 5:18 PM EST 1. ??History of left breast cancer and left axillary adenopathy. Enlarged left axillary lymph nodes appear unchanged. 2. ??No CT evidence of metastatic disease in the chest, abdomen, or pelvis. 3. ??Chronic findings as discussed. - Note: Radiology results need to be interpreted within a comprehensive clinical context. ??If you have questions about the radiology report, please contact the office of the ordering clinician. Narrative 08/09/2024 5:[address] CHEST, ABDOMEN, AND PELVIS WITH CONTRAST, ??08/09/2024 3:47 PM CLINICAL HISTORY: ??C50.912-Malignant neoplasm of unspecified site of left female breast (HCC)-ICD-10-CM. COMPARISON: ??None. PROCEDURE COMMENTS: Multidetector CT chest abdomen and pelvis with multiplanar reconstructions. ??Isovue 370 IV contrast given as recorded in EPIC. ?? Dose 1 : CT DLP Total : 592.7 mGycm DLP Spiral Max : 328.3 mGycm Maximum CTDI Vol : 15.6 mGy SSDE : 21.216 mGy SSDE Diameter : 27.229 cm SSDE Source : [employer] FINDINGS: ?? CHEST: History of left breast cancer and left axillary adenopathy. Enlarged left axillary lymph nodes appear unchanged. No mediastinal adenopathy. Heart size normal. No pericardial effusion. No thoracic aortic aneurysm. Trachea and central airways are patent. Unchanged 7 mm nodule along the right major fissure. No suspicious pulmonary nodule/mass. No evidence of pneumonia, effusion, or pneumothorax. ABDOMEN AND PELVIS: No abdominal aortic aneurysm. No acute abnormality or evidence of metastatic disease in the liver, gallbladder, pancreas, spleen, adrenal glands, or kidneys/bladder. Cholelithiasis again noted. No free air, pneumatosis, or free fluid. No focal bowel abnormality. Known history of Crohn's disease. No evidence of adenopathy. MUSCULOSKELETAL: No acute or worrisome osseous abnormality. The official again noted. Procedure Note Dong Prado MD - 08/09/2024 CT CHEST, ABDOMEN, AND PELVIS WITH CONTRAST, 08/09/2024 3:47 PM CLINICAL HISTORY: C50.912-Malignant neoplasm of unspecified site of leftfemale breast (HCC)-ICD-10-CM. COMPARISON: None. PROCEDURE COMMENTS: Multidetector CT chest abdomen and pelvis withmultiplanar reconstructions. Isovue 370 IV contrast given as recorded in EPIC. Dose 1 : CT DLP Total : 592.7 mGycm DLP Spiral Max : 328.3 mGycm Maximum CTDI Vol : 15.6 mGy SSDE : 21.216 mGy SSDE Diameter : 27.229 cm SSDE Source : [employer] FINDINGS: CHEST: History of left breast cancer and left axillary adenopathy.Enlarged left axillary lymph nodes appear unchanged. No mediastinal adenopathy. Heartsize normal. No pericardial effusion. No thoracic aortic aneurysm. Tracheaand central airways are patent. Unchanged 7 mm nodule along the right majorfissure. No suspicious pulmonary nodule/mass. No evidence of pneumonia, effusion,or pneumothorax. ABDOMEN AND PELVIS: No abdominal aortic aneurysm. No acute abnormalityor evidence of metastatic disease in the liver, gallbladder, pancreas,spleen, adrenal glands, or kidneys/bladder. Cholelithiasis again noted. No freeair, pneumatosis, or free fluid. No focal bowel abnormality. Known history ofCrohn's disease. No evidence of adenopathy. MUSCULOSKELETAL: No acute or worrisome osseous abnormality. The official again noted. IMPRESSION: 1. History of left breast cancer and left axillary adenopathy. Enlargedleft axillary lymph nodes appear unchanged. 2. No CT evidence of metastatic disease in the chest, abdomen, orpelvis. 3. Chronic findings as discussed. - Note: Radiology results need to be interpreted within a comprehensiveclinical context. If you have questions about the radiology report, please contactthe office of the ordering clinician. Darío Rubio MD IMG CT ORDERABLES Final Result * CREATININE ISTAT (08/09/2024 3:37 PM EST) [facility] Creatinine-iST AT 1.2 0.6 - 1.3 mg/dL 08/09/2024 3:41 PM EST [facility] Blood BLOOD SPECIMEN / Unknown 08/09/2024 3:37 PM EST 08/09/2024 3:41 PM EST Darío Rubio MD POINT OF CARE TEST ORDERABLES Final Result Performing Organization Address City/State/[facility] [place] [address] * (ABNORMAL) CBC WITH DIFF (06/07/2024 1:32 PM EDT) [facility] WBC 7.1 3.7 - 10.3 x10(3)/mcL 06/07/2024 1:40 PM EDT [facility] RBC 4.14 3.90 - 5.20 x10(6)/mcL 06/07/2024 1:40 PM EDT [facility] Hgb 12.8 11.2 - 15.7 g/dL 06/07/2024 1:40 PM EDT [facility] Hct 38.5 34.0 - 45.0 % 06/07/2024 1:40 PM EDT [facility] MCV 93.0 80.0 - 100.0 fL 06/07/2024 1:40 PM EDT [facility] MCH 30.9 26.0 - 34.0 pg 06/07/2024 1:40 PM EDT [facility] MCHC 33.2 30.7 - 35.5 g/dL 06/07/2024 1:40 PM EDT [facility] RDW 14.3 <=14.9 % 06/07/2024 1:40 PM EDT [facility] Platelet 357 155 - 369 x10(3)/mcL 06/07/2024 1:40 PM EDT [facility] MPV 8.5(L) 8.8 - 12.5 fL 06/07/2024 1:40 PM EDT [facility] Neut # Prelim 4.9 1.6 - 6.1 x10(3)/[facility] 06/07/2024 1:40 PM EDT [facility] Comment:Preliminary automate d absolute neutrophil count. Value may change if manual differential is indicated. Neut Percent 69.1 % 06/07/2024 1:40 PM EDT [facility] Comment:Neutrophils equals s egs plus bands Imm Gran% 0.3 % 06/07/2024 1:40 PM EDT [facility] Comment:Automated count of m etamyelocytes, myelocytes and promyelocytes. Lymph Percent 21.3 % 06/07/2024 1:40 PM EDT [facility] Richardson Percent 8.5 % 06/07/2024 1:40 PM EDT [facility] Eos Percent 0.7 % 06/07/2024 1:40 PM EDT [facility] Baso Percent 0.1 % 06/07/2024 1:40 PM EDT [facility] Neut # 4.9 1.6 - 6.1 x10(3)/[facility] 06/07/2024 1:40 PM EDT [facility] Comment:Neutrophils equals s egs plus bands IMMGRAN# 0.0 0.0 - 0.1 x10(3)/[facility] 06/07/2024 1:40 PM EDT [facility] Comment:Automated count of m etamyelocytes, myelocytes and promyelocytes. An absolute IG <0.1 is reported as 0.0. Lymph # 1.5 1.2 - 3.9 x10(3)/[facility] 06/07/2024 1:40 PM EDT [facility] Richardson # 0.6 0.3 - 0.9 x10(3)/[facility] 06/07/2024 1:40 PM EDT [facility] Eos# 0.1 0.0 - 0.5 x10(3)/[facility] 06/07/2024 1:40 PM EDT [facility] Baso # 0.0 0.0 - 0.1 x10(3)/[facility] 06/07/2024 1:40 PM EDT [facility] Blood VENOUS BLOOD / Unknown Venipuncture / Unknown 06/07/2024 1:32 PM EDT 06/07/2024 1:32 PM EDT us Darío Rubio MD HEMATOLOGY ORDERABLES Final Re sult [facility] [address] [place] [address] * (ABNORMAL) COMPREHENSIVE METABOLIC PANEL (06/07/2024 1:32 PM EDT) Sodium 136 136 - 145 mmol/L 06/07/2024 1:56 PM EDT [facility] Potassium 4.5 3.5 - 5.0 mmol/L 06/07/2024 1:56 PM EDT [facility] Chloride 102 98 - 107 mmol/L 06/07/2024 1:56 PM EDT [facility] Total CO2 25 22 - 29 mmol/L 06/07/2024 1:56 PM EDT [facility] Anion Gap 9 7 - 16 mmol/L 06/07/2024 1:56 PM EDT [facility] Calcium 9.1 8.8 - 10.4 mg/dL 06/07/2024 1:56 PM EDT [facility] Glucose Lvl 105(H) 70 - 99 mg/dL 06/07/2024 1:56 PM EDT [facility] BUN 17 8 - 23 mg/dL 06/07/2024 1:56 PM EDT [facility] Creatinine 0.98 0.51 - 1.30 mg/dL 06/07/2024 1:56 PM EDT [facility] Albumin 3.9 3.2 - 4.6 gm/dL 06/07/2024 1:56 PM EDT [facility] Total Protein 6.6 6.4 - 8.3 gm/dL 06/07/2024 1:56 PM EDT [facility] Bili Total 0.4 0.2 - 1.3 mg/dL 06/07/2024 1:56 PM EDT [facility] ALT 9 <=41 U/L 06/07/2024 1:56 PM EDT [facility] AST 14 <=40 U/L 06/07/2024 1:56 PM EDT [facility] Alk Phos 84 36 - 123 U/L 06/07/2024 1:56 PM EDT [facility] eGFR (CKD-EPIcr 2020) 65 >=60 mL/min/1.7 3 m2 06/07/2024 1:56 PM EDT [facility] Comment:Estimated GFR was ca lculated using the CKD-EPIcr (2020) equation refit without race. The equation is recommended by the National Kidney Foundation - [place] [employer]ph[employer] Task Force. Blood VENOUS BLOOD / Unknown Venipuncture / Unknown 06/07/2024 1:32 PM EDT 06/07/2024 1:32 PM EDT us Darío Rubio MD CHEMISTRY ORDERABLES Final Res ult [facility] [address] [place] [address] * DX BONE DENSITY AXIAL SKELETON (06/07/2024 12:52 PM EDT) Anatomical Region Laterality Modality Dexa Scan 06/07/2024 Impressions 06/07/2024 3:50 PM EDT Indication: The patient is a post-menopausal female under age 65 with clinical risk factors for an osteoporotic fracture that requires a bone density assessment. Study was performed on [employer] 5. Bone Density: Region ?BMD ? T-score ? Z- score AP Spine (L1-L4) ?0.856 ?-1.7 ?-0.1 Femoral Neck (Left) ? 0.731 ?-1.1 ? 0.3 Total Hip (Left) ?0.776 ?-1.4 ?-0.3 Femoral Neck (Right) ?0.791 ?-0.5 ? 0.9 Total Hip (Right) ? 0.836 ?-0.9 ? 0.2 1/3 Radius (Right) ?0.494 ?-3.3 ?-1.8 World Health Organization criteria for BMD interpretation classify patients as: Normal (T-score at or above -1.0), Low Bone Density (T-score between -1.0 and -2.5), or Osteoporotic (T-score at or below -2.5). T Scores are reported in Postmenopausal women and in men age 50 and older. Z-scores are reported in females prior to menopause and in males younger than age 50. Clinical Information Provided by Patient: Has taken Glucocorticoids Has used or is currently using the following medications: Aromatase Inhibitors, Chemotherapy drugs Has had or currently has the following medical conditions: Breast Cancer, Crohns or Ulcerative Colitis Patient maximum height was 62.0 Menopause Age: 43 Patient is Postmenopausal Has low body mass. Interpretation: Bone mineral density is in the osteoporotic range. Medical evaluation for secondary causes of low bone density may be appropriate. A minimum of two years may be required between bone density studies due to inherent testing precision limitations. Intervals between BMD testing should be determined according to each patient's clinical status: typically one year after initiation or change of therapy is appropriate, with longer intervals once therapeutic effect is established. Reported by: Arpita Trujillo PA-C, CCD on 06/07/2024 12:58:00 PM. us Darío Rubio MD IMG DEXA ORDERABLES Final Resu lt * MM MAMMO DIGITAL DANIELA DIAGN BILAT (10/12/2023 12:47 PM EST) Anatomical Region Laterality Modality Breast Bilateral Mammography 10/12/2023 2:37 PM EST Impressions 10/12/2023 2:37 PM EST Incomplete-need additional imaging evaluation (RFV-Luzoiena-7) Suspicious left breast mass and axillary adenopathy. ~ RECOMMENDATION: Ultrasound of the left breast. This ultrasound examination will be performed on the same date and reported separately. ~ DISCLAIMER * Any patient with a palpable abnormality, unexplained by breast imaging, should be managed on clinical basis by the attending physician. * Breast imaging has a false negative rate of 15%. * The patient was notified by mail of the results of this examination. *The patient's information was entered into a reminder system with a target due date for the next mammogram, in accordance with the [employer] and the Society of Breast Imaging recommendations. Narrative 10/12/2023 2:37 PM EST Procedure:MM MAMMO DIGITAL DANIELA DIAGN BILAT ~ Reason for exam: clinical finding. N63.0-Unspecified lump in unspecified [id number]-CM ~ MM MAMMO DIGITAL DANIELA DIAGN BILAT Bilateral CC and MLO view(s) were taken. There are scattered fibroglandular densities. ??2:00 left breast is an approximate 2.5 cm spiculated mass containing some pleomorphic calcifications and several long spicules extending for several centimeters. In addition, there are multiple enlarged left axillary nodes, largest 2.6 cm. Right breast unremarkable. ~ Procedure Note Greg Hammonds MD - 10/12/2023 Procedure:MM MAMMO DIGITAL DANIELA DIAGN BILAT ~ Reason for exam: clinical finding. N63.0-Unspecified lump in unspecified iybpfo-MCW-60-CM ~ MM MAMMO DIGITAL DANIELA DIAGN BILAT Bilateral CC and MLO view(s) were taken. There are scattered fibroglandular densities. 2:00 left breast is an approximate 2.5 cm spiculated mass containing some pleomorphic calcifications and several long spicules extending for severalcentimeters. In addition, there are multiple enlarged left axillary nodes, largest2.6 cm. Right breast unremarkable. ~ IMPRESSION: Incomplete-need additional imaging evaluation ([id number]-[id number]-7) Suspicious left breast mass and axillary adenopathy. ~ RECOMMENDATION: Ultrasound of the left breast. This ultrasound examination will be performed on the same date andreported separately. ~ DISCLAIMER * Any patient with a palpable abnormality, unexplained by breast imaging, should be managed on clinical basis by the attending physician. * Breast imaging has a false negative rate of 15%. * The patient was notified by mail of the results of this examination. *The patient's information was entered into a reminder system with atarget due date for the next mammogram, in accordance with the [place] and the Society of Breast Imaging recommendations. [facility] MAMMOGRAPHY ORDERABLES Final Result * HEPATITIS C ANTIBODY - SCREENING (12/26/2019 3:31 PM EDT) Hep C Ab Non-Reactiv e Non-Reacti ve 12/26/2019 5:41 PM EDT PREFERRED LAB Infer Blood VENOUS BLOOD / Unknown Venipuncture / Unknown 12/26/2019 3:31 PM EDT 12/26/2019 3:31 PM EDT us Swapnil Lopez MD HEMATOLOGY ORDERABLES Final Re sult PREFERRED [facility] , [place] [address] from Last 3 Months or Most Recently Relevant to Health Maintenance Insurance MEDICAID MEDICAID Member Subscriber Plan / Payer (Ef fective 2019-Present) Name:Marleni Sy Relation to Subscriber:Self Name:Marleni Sy Payer ID:Not on file Group ID:[id number] Type:Not on file Address: [address] [place] [id number] MEDICAID Member Subscriber Plan / Payer (Ef fective 2019-Present) Name:Marleni Sy Relation to Subscriber:Self Name:Marleni Sy Payer ID:Not on file Group ID:[id number] Type:Not on file Address: [address] [place] [id number] Advance Directives For more information, please contact: [phone] Documents on File Type Date Recorded Patient Knitter Helper Expl anation ADVANCE DIRECTIVE 10/31/2023 6:18 PM DPOA 04/24/2023 * Full Code (Latest Code Status on File) Date Activated Date Inactivated Comments 04/03/2015 2:11 PM 04/03/2015 10:26 PM Care Teams Chemotherapist Relationship Specialty Start Date End Date Damaso Black MD [address] [facility] [address] [place] [address] PCP - General Family Medicine 11/22/22 Swapnil Lopez MD [address] [place] [address] Internal Medicine-Gastroenterology 02/16/22 Darío Ruibo MD [address] [place] [address] [place] [address] Internal Medicine-Medical Oncology 12/11/23 Mya Naranjo MD [address] [place] [address] [place] [address] Family Medicine - Hospice And Palliative Medicine 01/04/24 Ashley Ordonez APRN [address] [place] [address] [place] [address] Nurse Practitioner 01/04/24 Nicole Melendez, RN Registered Nurse 01/04/24 Aislinn Viera, RN Registered Nurse 02/07/24 Ronit Conner, RN Registered Nurse 04/10/24 Armando Vieira, ITA Academic Advisor 04/10/24 Vicki Amato, RN Registered Nurse 04/10/24 Trinh Bullock APRN [address] [facility] [place] [address] Nurse Practitioner Nurse Practitioner-Family 04/10/24 Selina Olsen, YON [address] [facility] [place] [address] Nurse Practitioner 04/10/24 Veda Mcfarland, Clerical Staff 05/14/24
--- OUTSIDE RECORDS SUMMARY | 2024-08-15 13:46 | XMS_ITS | Encounter Summary ---
Author Organization [facility] rology Address [address] [place] [address] Care Team Providers Care Forensic Accountant Name Role Phone Swapnil Lopez MD Unavailable [phone] Damaso Black MD Primary Care Provider [phone] Darío Rubio MD Unavailable [phone] Mya Naranjo MD Unavailable [phone] MARKER Unavailable [phone] Nicole Melendez RN Unavailable Unavailable Aislinn Viera RN Unavailable Unavailable Ronit Conner RN Unavailable Unavailable Armando Vieira REMOTE SENSING PROGRAM MANAGER Unavailable Unavailable Vicki Amato RN Unavailable UnavailTrinh Soto ROAD MARKER Unavailable + Selina Olsen ROAD MARKER Unavailable [phone] Veda Mcfarland Clerical Staff Unavailable U navailable Reason for Visit * Reason Onset Date Comments Medication Refill 07/26/2024 Encounter Details Date Type Department Care Team (Late st Contact Info) Description 07/26/2024 Refill [facility] [address] [place] [address] Swapnil Lopez MD [address] [place] [address] Medication Refill Social History Tobacco [...] Refills Last Filled Start Date End Date promethazine (PHENERGAN) 12.5 mg Oral Tablet Take 1 Tablet by mouth every 6 hours as needed for Nausea. 60 Tablet 5 07/26/2024 predniSONE (DELTASONE) 10 mg Oral Tablet Take 1 Tablet by mouth daily. 90 Tablet 3 07/26/2024 documented in this encounter Plan of Treatment Upcoming Encounters Date Type Department Care Team (Late st Contact Info) Description 09/11/2024 1:45 PM EST Office Visit [facility] [address] [place] [address] Swapnil Lopez MD [address] [place] [address] 10/21/2024 2:00 PM EST Appointment [facility] [address] [place], [place] [address] Jacky Shirley MD 1 [facility] CANCER [place], [place] [id number] 10/23/2024 1:45 PM EST Appointment [facility] [address] [place], [place] [id number] Olena Darby APRN [address] [place] [address] CANCER [place], [place] [id number] documented as of this encounter Goals Goal Patient Goal Type Associated Problems Recent Progress Patient-Stated? Author Breast [facility] Breast Health Mary Kate Vázquez, RN [...] Discontinue Reason Start Date End Da te predniSONE (DELTASONE) 10 mg Oral Tablet Take 1 Tablet by mouth daily. Reorder 04/03/2024 07/26/2024 promethazine (PHENERGAN) 12.5 mg Oral Tablet Take by mouth every 6 hours as needed for Nausea. Reorder 07/26/2024 documented as of this encounter Additional Health Concerns Assessment Noted Time PHQ-9 Depression Total Score: 13 024 1:47 PM EDT PHQ-2 Depression Total Score: 3 12/29/19 24 1:47 PM EDT documented as of this encounter Care Teams Forensic Accountant Relationship Specialty Start Date End Date Damaso Black MD [address] [place] [address] PCP - General Family Medicine 11/22/22 Swapnil Lopez MD [address] [place] [address] Internal Medicine-Gastroenterology 02/16/22 Darío Rubio MD [address] [place] [address] [address] [place] [id number] Internal Medicine-Medical Oncology 12/11/23 Mya Naranjo MD [address] [place] [address] [place] [address] Family Medicine - Hospice And Palliative Medicine 01/04/24 Ashley Ordonez APRN [address] [place] [address] [place] [address] Nurse Practitioner 01/04/24 Nicole Melendez, RN Registered Nurse 01/04/24 Aislinn Viera, RN Registered Nurse 02/07/24 Ronit Conner, RN Registered Nurse 04/10/24 Armando Vieira, ITA Electric Blanket Wirer 04/10/24 Vicki Amato, RN Registered Nurse 04/10/24 Trinh Bullock APRN [address] [place] [address] [place] [address] Nurse Practitioner Nurse Practitioner-Family 04/10/24 Selina Olsen APRN [address] [place] [address] [place] [address] Nurse Practitioner 04/10/24 Veda Mcfarland, Clerical Staff 05/14/24 documented as of this encounter
--- OUTSIDE RECORDS SUMMARY | 2024-08-15 13:46 | XMS_ITS | Encounter Summary ---
Author Organization [facility] rology Address [address] [place] [address] Care Team Providers Care Controls Engineer Name Role Phone Swapnil Lopez MD Unavailable [phone] Damaso Black MD Primary Care Provider [phone] Darío Rubio MD Unavailable [phone] Mya Naranjo MD Unavailable [phone] Ashley Ordonez BINDERY SUPERVISOR Unavailable +[phone] Nicole Melendez RN Unavailable Unavailable Aislinn Viera RN Unavailable Unavailable Ronit Conner RN Unavailable Unavailable Armando Vieira METER READING CLERK Unavailable Unavailable Vicki Amato RN Unavailable UnavailTrinh Soto BINDERY SUPERVISOR Unavailable + Selina Olsen BINDERY SUPERVISOR Unavailable [phone] Veda Mcfarland Clerical Staff Unavailable U navailable Reason for Visit * Reason Onset Date Comments Medication Refill 07/25/2024 Encounter Details Date Type Department Care Team (Late st Contact Info) Description 07/25/2024 Refill [facility] [address] [place] [address] Swapnil Lopez MD [address] [place] [address] Medication Refill Social History Tobacco [...] PM EST Office Visit [facility] [address] [facility] [place] [address] Swapnil Lopez MD [address] [place] [address] 10/21/2024 2:00 PM EST [facility]ointment [facility] [address] [place] [place] [address] Jacky Shirley MD 1 [facility] [place] [address] 10/23/2024 1:45 PM EST Appointment [facility] [address] [place], [place] [phone] Olena Darby APRN 1 [facility] C[facility] [place], [place] [id number] documented as of this encounter Goals Goal [...] both small and large intestine without complication (HCC)- Primary Regional enteritis of small intestine with large intestine documented in this encounter Additional Health Concerns Assessment Noted Time PHQ-9 Depression Total Score: 13 024 1:47 PM EDT PHQ-2 Depression Total Score: 3 12/29/19 24 1:47 PM EDT documented as of this encounter Care Teams Controls Engineer Relationship Specialty Start Date End Date Damaso Black MD [address] [place] [address] PCP - General Family Medicine 11/22/22 Swapnil Lopez MD [address] [place] [address] Internal Medicine-Gastroenterology 02/16/22 Darío Rubio MD 1 [facility] [address] Internal Medicine-Medical Oncology 12/11/23 Mya Naranjo MD 1 [facility] [place] [address] Family Medicine - Hospice And Palliative Medicine 01/04/24 Ashley Ordonez, YON 1 [facility] [address] Nurse Practitioner 01/04/24 Nicole Melendez, RN Registered Nurse 01/04/24 Aislinn Viera, RN Registered Nurse 02/07/24 Ronit Conner, RN Registered Nurse 04/10/24 Armando Vieira MSW Dinkey Operator Slag 04/10/24 Vicki Amato, RN Registered Nurse 04/10/24 Trinh Bullock APRN 1 [facility] [place] [address] Nurse Practitioner Nurse Practitioner-Family 04/10/24 Selina Olsen, YON 1 [facility] [address] Nurse Practitioner 04/10/24 Veda Mcfarland, Clerical Staff 05/14/24 documented as of this encounter
--- OUTSIDE RECORDS SUMMARY | 2024-08-15 13:46 | XMS_ITS | Encounter Summary ---
Author Organization [place] [address] Care Team Providers Care Gasateria Attendant Name Role Phone Swapnil Lopez MD Unavailable [phone] Damaso Black MD Primary Care Provider [phone] Darío Rubio MD Unavailable [phone] Mya Naranjo MD Unavailable [phone] Ashley Ordonez VENDOR SPECIALIST Unavailable [phone] Nicole Melendez RN Unavailable Unavailable Aislinn Viera RN Unavailable Unavailable Ronit Conner RN Unavailable Unavailable Armando Vieira AUTOMOTIVE BRAKE TECHNICIAN Unavailable Unavailable Vicki Amato RN Unavailable UnavailTrinh Soto VENDOR SPECIALIST Unavailable +[phone] Selina Olsen VENDOR SPECIALIST Unavailable [phone] Veda Mcfarland Clerical Staff Unavailable U navailable Encounter Details Date Type Department Care Team (Late st Contact Info) Description 07/03/2024 Orders Only [facility] [place] [address] Darío Rubio MD [address] [place], [place] [phone] Invasive ductal carcinoma of breast, left (HCC) (Primary Dx) Social History Tobacco Use Types [...] PM EST Office Visit [facility] [address] [place] [facility] [address] Swapnil Lopez MD [address] [place] [facility] [address] 10/21/2024 2:00 PM EST Appointment [facility] [address], [place] [phone] Jacky Shirley MD 1 [facility] [place] [address] 10/23/2024 1:45 PM EST Appointment [facility] [address] [place], [place] [phone] Olena Darby APRN 1 [facility] [place] [address] documented as of this encounter Goals Goal [...] as of this encounter Visit Diagnoses Diagnosis Invasive ductal carcinoma of breast, left (HCC)- Primary documented in this encounter Additional Health Concerns Assessment Noted Time PHQ-9 Depression Total Score: 13 024 1:47 PM EDT PHQ-2 Depression Total Score: 3 12/29/19 24 1:47 PM EDT documented as of this encounter Care Teams Gasateria Attendant Relationship Specialty Start Date End Date Damaso Black MD 1005 [facility] [address] [place] [address] PCP - General Family Medicine 11/22/22 Swapnil Lopez MD [address] [place] [phone] Internal Medicine-Gastroenterology 02/16/22 Darío Rubio MD [address] [place] [address] [place] [address] Internal Medicine-Medical Oncology 12/11/23 Mya Naranjo MD [address] [facility] [place] [address] Family Medicine - Hospice And Palliative Medicine 01/04/24 Ashley Ordonez APRN [address] [facility] [place] [address] Nurse Practitioner 01/04/24 Nicole Melendez, RN Registered Nurse 01/04/24 Aislinn Viera, RN Registered Nurse 02/07/24 Ronit Conner, RN Registered Nurse 04/10/24 Armando Vieira MSW Windows Phone Developer 04/10/24 Vicki Amato, RN Registered Nurse 04/10/24 Trinh Bullock, YON [address] [facility] [place] [address] Nurse Practitioner Nurse Practitioner-Family 04/10/24 Selina Olsen APRN [address] [facility] [place] [address] Nurse Practitioner 04/10/24 Veda Mcfarland, Clerical Staff 05/14/24 documented as of this encounter
--- OUTSIDE RECORDS SUMMARY | 2024-08-15 13:46 | XMS_ITS | Encounter Summary ---
Author Organization [place] [address] Care Team Providers Care Hourly Sales Staff Name Role Phone Swapnil Lopez MD Unavailable [phone] Damaso Black MD Primary Care Provider [phone] Darío Rubio MD Unavailable [phone] Mya Naranjo MD Unavailable [phone] Ashley Ordonez CAD DESIGN ENGINEER Unavailable [phone] Nicole Melendez RN Unavailable Unavailable Aislinn Viera RN Unavailable Unavailable Ronit Conner RN Unavailable Unavailable Armando Vieira INFORMATION TECHNOLOGY INTERNSHIP Unavailable Unavailable Vicki Amato RN Unavailable UnavailTrinh Soto CAD DESIGN ENGINEER Unavailable +[phone] Selina Olsen CAD DESIGN ENGINEER Unavailable +[phone] Veda Mcfarland Clerical Staff Unavailable U navailable Reason for Visit * Reason Comments Medication Refill Encounter Details Date Type Department Care Team (Late st Contact Info) Description 07/26/2024 Refill [facility] [place] [address] Darío Rubio MD [address] [place] [address] Medication Refill Social History Tobacco Use Types [...] Refills Last Filled Start Date End Date ribociclib (KISQALI) 400 mg/day (200 mg x 2) Oral TabletIndications: Invasive ductal carcinoma of breast, left (HCC) Take 2 tablets by mouth daily for 21 days followed by 7 days off 42 Tablet 07/29/2024 11:18 AM EDT 07/26/2024 documented in this encounter Miscellaneous Notes * Telephone Encounter - Aislinn Viera RN - 07/26/2024 1:12 PM EDT Additional refill needed for patient. documented in this encounter Plan of Treatment Upcoming Encounters Date Type Department Care Team (Late st Contact Info) Description 09/11/2024 1:45 PM EST Office Visit [facility] [address] [place] [facility] [place] [address] Swapnil Lopez MD [address] [place] [address] 10/21/2024 2:[address] [facility] MRI [address] [facility] [place] [address] Jacky Shirley MD 1 [facility] CANCER [place], [place] [phone] 10/23/2024 1:45 PM EST Appointment [facility] [address] [place], [place] [phone] Olena Darby APRN [address] [place] [address] CANCER [place], [place] [phone] documented as of this encounter Goals Goal [...] Diagnosis Invasive ductal carcinoma of breast, left (HCC) documented in this encounter Discontinued Medications Medication Sig Discontinue Reason Start Date End Da te ribociclib (KISQALI) 400 mg/day (200 mg x 2) Oral TabletIndications:Invas jeannine ductal carcinoma of breast, left (HCC) Take 2 tablets by mouth daily for 21 days followed by 7 days off Reorder 07/16/2024 07/26/2024 documented as of this encounter Additional Health Concerns Assessment Noted Time PHQ-9 Depression Total Score: 13 024 1:47 PM EDT PHQ-2 Depression Total Score: 3 12/29/19 24 1:47 PM EDT documented as of this encounter Care Teams Hourly Sales Staff Relationship Specialty Start Date End Date Damaso Black MD 1005 [facility] [address] [place] [address] PCP - General Family Medicine 11/22/22 Swapnil Lopez MD [address] [place] [address] Internal Medicine-Gastroenterology 02/16/22 Darío Rubio MD [address] [place] [address] [place] [address] Internal Medicine-Medical Oncology 12/11/23 Mya Naranjo MD [address] [place] [address] [place] [address] Family Medicine - Hospice And Palliative Medicine 01/04/24 Ashley Ordonez APRN [address] [place] [address] [place] [address] Nurse Practitioner 01/04/24 Nicole Melendez, RN Registered Nurse 01/04/24 Aislinn Viera, RN Registered Nurse 02/07/24 Ronit Conner, ANGE Registered Nurse 04/10/24 Armando Vieira, ITA Lapping Machine Operator 04/10/24 Vicki Amato, RN Registered Nurse 04/10/24 Trinh Bullock APRN [address] [place] [address] Nurse Practitioner Nurse Practitioner-Family 04/10/24 Selina Olsen APRN [address] [place] [address] [place] [address] Nurse Practitioner 04/10/24 Veda Mcfarland, Clerical Staff 05/14/24 documented as of this encounter
--- OUTSIDE RECORDS SUMMARY | 2024-08-15 13:46 | XMS_ITS | Encounter Summary ---
Author [place] [address] Care Team Providers Care Kapok And Cotton Machine Operator Name Role Phone Swapnil Lopez MD Unavailable [phone] Damaso Black MD Primary Care Provider [phone] Darío Rubio MD Unavailable [phone] Mya Naranjo MD Unavailable [phone] Ashley Ordonez AS400 PROGRAMMER Unavailable [phone] Nicole Melendez RN Unavailable Unavailable Aislinn Viera RN Unavailable Unavailable Ronit Conner RN Unavailable Unavailable Armando Vieira RADIATOR CORE TESTER Unavailable Unavailable Vicki Amato RN Unavailable UnavailTrinh Soto AS400 PROGRAMMER Unavailable [phone] Selina Olsen AS400 PROGRAMMER Unavailable [phone] Veda Mcfarland Clerical Staff Unavailable U navailable Reason for Visit * MRI/CAT Scan (Urgent) - Closed Specialty Diagnoses / Procedures Referred By Contac t Referred To Contact Radiology Diagnoses Invasive ductal carcinoma of breast, left (HCC) Procedures CT CHEST ABDOMEN PELVIS WO ORAL WITH IV CONTRAST CT CHEST ABDOMEN PELVIS W CONTRAST Darío Rubio MD [address] [place] [address] [place] [address] Phone: tel: fax: [place] [facility] [place] [address] Phone: tel: fax: Referral ID Status Reason Start Date Expiration Date Visits Re quested Visits Authorized [id number] Closed 07/03/2024 07/03/2025 1 1 Encounter Details Date Type Department Care Team (Latest Contact Info) Description 08/09/2024 3:18 PM EST - 08/09/2024 11:59 PM [facility] Hospital Encounter [facility] [address] [place] [address] Darío Rubio MD [address] [facility] [address] Invasive ductal carcinoma of breast, left (HCC) Discharge Disposition: Home or Self Care Social History Tobacco Use Types Packs/Day Years [...] Entry Date Author No 09/05/2017 11:13 AM EST Gabby Mercedes RMA documented in this encounter Medications at Time of Discharge acyclovir (ZOVIRAX) 800 mg Oral Tablet Take 1 tablet 5 times a day by oral route for 7 days. 06/05/2024 diphenoxylate-atro pine (LOMOTIL) 2.5-0.025 mg Oral TabletIndications: Crohn's disease of both small and large intestine without complication (HCC) TAKE 2 TABLETS BY MOUTH FOUR TIMES DAILY NEEDED. NO MORE THAN 8 TABLETS PER DAY 60 Tablet 3 07/26/2024 loperamide (IMODIUM) 2 mg Oral CapsuleIndications :Diarrhea, unspecified type Take 1 Capsule by mouth every 3 hours. 200 Capsule 08/09/2024 ondansetron (ZOFRAN) 4 mg Oral Tablet Take 4 mg by mouth. 04/25/2022 predniSONE (DELTASONE) 10 mg Oral Tablet Take 1 Tablet by mouth daily. 90 Tablet 3 07/26/2024 promethazine (PHENERGAN) 12.5 mg Oral Tablet Take 1 Tablet by mouth every 6 hours as needed for Nausea. 60 Tablet 5 07/26/2024 traMADoL (ULTRAM) 50 mg Oral Tablet Take 50 mg by mouth every 4 hours as needed. for pain 2024 triamcinolone (KENALOG) 0.1 % Top CreamIndications:S kin rash Apply topically 3 times daily. 80 g 02/07/2024 documented as of this encounter Discharge Disposition Disposition Code Departure Means Destination Home or Self Care documented in this encounter Plan of Treatment Upcoming Encounters Date Type Department Care Team (Late st Contact Info) Description 09/11/2024 1:45 PM EST Office Visit [facility] [address] [place] [facility] [address] Swapnil Lopez MD [address] [address] 10/21/2024 2:00 PM EST [facility] [address] [address] Jacky Shirley MD 1 [facility] [place] [address] 10/23/2024 1:45 PM EST Appointment [facility] [place] [address] Olena Darby APRN 1 [facility] [place] [address] documented as of this encounter Goals Goal [...] [place], RMA documented as of this encounter Procedures Procedure Name Priority Date/Time Associated Diagnosis Comments CT CHEST ABDOMEN PELVIS WO ORAL WITH IV CONTRAST ANNA 08/09/2024 3:47 PM EST Invasive ductal carcinoma of breast, left (HCC) CREATININE ISTAT Routine 08/09/2024 3:37 PM EST documented in this encounter Results * CT CHEST ABDOMEN PELVIS WO [...] Diameter : 27.229 cm SSDE Source : [employer] FINDINGS: ?? CHEST: History of left breast [...] abnormality. The official again noted. Procedure Note Dogn Prado MD - 08/09/2024 CT CHEST, ABDOMEN, [...] Diameter : 27.229 cm SSDE Source : [employer] FINDINGS: CHEST: History of left breast cancer [...] of the ordering clinician. Darío Rubio MD [facility] [place] Final Result * CREATININE ISTAT (08/09/2024 3:37 PM EST) Creatinine-iST AT 1.2 0.6 - 1.3 mg/dL 08/09/2024 3:41 PM EST [facility] Blood BLOOD SPECIMEN / Unknown 08/09/2024 3:37 PM EST 08/09/2024 3:41 PM EST Darío Rubio MD POINT OF CARE TEST ORDERABLES Final Result [facility] [place] [address] [place] [address] documented in this encounter Visit Diagnoses Diagnosis Invasive ductal carcinoma of breast, left (HCC) documented in this encounter Administered Medications Inactive Administered Medications - up to 1 most recent administrations Medication Order MAR Action Action Date Dose Rate Site iopamidoL (ISOVUE-370) 370 mg iodine /mL (76 %) injection (LOW) 100 mL 100 mL, Intravenous, ONCE PRN, 1 dose, Starting on Mon08/09/24 at 1522, Until Mon08/09/24 at 1547, Radiography/Imaging, Radiology Procedure, VESICANT , CT (Contrasts) Given 08/09/2024 3:47 PM EST 100 mL Right Arm sodium chloride 0.9% syringe Intravenous, ONCE PRN, 1 dose, Starting on Mon08/09/24 at 1522, Until Mon08/09/24 at 1547, Line Care, Flush peripheral lines every 12 hours, central lines every 8 hours, and after IV medication, CT (Contrasts) Given 08/09/2024 3:47 PM EST Right Arm documented in this encounter Additional Health Concerns Assessment Noted Time PHQ-9 Depression Total Score: 13 024 1:47 PM EDT PHQ-2 Depression Total Score: 3 12/29/19 24 1:47 PM EDT documented as of this encounter Care Teams Kapok And Cotton Machine Operator Relationship Specialty Start Date End Date Damaso Black MD [address] [facility] [address] [place] [address] PCP - General Family Medicine 11/22/22 Swapnil Lopez MD [address] [place] [address] Internal Medicine-Gastroenterology 02/16/22 Darío Rubio MD [address] [place] [address] [place] [address] Internal Medicine-Medical Oncology 12/11/23 Mya Naranjo MD [address] [place] [address] [place] [address] Family Medicine - Hospice And Palliative Medicine 01/04/24 Ashley Ordonez APRN [address] [place] [address] [place] [address] Nurse Practitioner 01/04/24 Nicole Melendez, RN Registered Nurse 01/04/24 Aislinn Viera, RN Registered Nurse 02/07/24 Ronit Conner, RN Registered Nurse 04/10/24 Armando Vieira, ITA Senior Manufacturing Test Engineer 04/10/24 Vicki Amato, RN Registered Nurse 04/10/24 Trinh Bullock APRN [address] [facility] [place] [address] Nurse Practitioner Nurse Practitioner-Family 04/10/24 Selina Olsen APRN [address] [place] [address] [place] [address] Nurse Practitioner 04/10/24 Veda Mcfarland, Clerical Staff 05/14/24 documented as of this encounter
--- OUTSIDE RECORDS SUMMARY | 2024-08-15 13:46 | XMS_ITS | Encounter Summary ---
Author Organization [place] [address] Care Team Providers Care Museum Security Chief Name Role Phone Swapnil Lopez MD Unavailable [phone] Damaso Black MD Primary Care Provider [phone] Darío Rubio MD Unavailable [phone] Mya Naranjo MD Unavailable [phone] Ashley Ordonez HOSIERY OPERATOR Unavailable [phone] Nicole Melendez RN Unavailable Unavailable Aislinn Viera RN Unavailable Unavailable Ronit Conner RN Unavailable Unavailable Armando Vieira CHILD MONITOR Unavailable Unavailable Vicki Amato RN Unavailable UnavailTrinh Soto HOSIERY OPERATOR Unavailable [phone] Selina Olsen HOSIERY OPERATOR Unavailable [phone] Veda Mcfarland Clerical Staff Unavailable U navailable Reason for Visit * Reason Comments Pharmacy Oncology Management Ribociclib Encounter Details Date Type Department Care Team (Latest Contact Info) Description 07/16/2024 Specialty Pharmacy [facility] [address] [place] [address] Shruthi Veras CPhT Pharmacy Oncology Management (Ribociclib) Social History Tobacco Use Types Packs/Day Years [...] 09/05/2017 11:13 AM Gabby De La Garza RMGena * Is the person blind or does he/she have serious difficulty seeing even when wearing glasses? Answer Date of Assessment Author No 09/05/2017 11:13 AM Gabby De LaG arza RMA * Does this person have serious [...] 11:13 AM Gabby De La Garza SHANNON documented as of this encounter Mental Status * Because of a physical, mental or emotional condition, does this person have serious difficulty concentrating, remembering or making decisions? Answer Entry Date Author No 09/05/2017 11:13 AM Gabby De La Garza SHANNON documented in this encounter Progress Notes * Shruthi Veras CPhT - 07/16/2024 10:17 AM EDT [facility] Refill Request Prescription for Ribociclib is out of refills. Will send a request to the provider and contact patient to coordinate refill once response is received. * Radha Trejo RPH - 07/16/2024 10:17 AM EDT [facility] Refill authorization received. Will contact patient to coordinate refill. * Shruthi Veras CPhT - 07/16/2024 10:17 AM EDT Specialty Pharmacy Refill Coordination Note Contacted [address] today regarding refills of Ribociclib. Medication to be delivered by Fed[employer] on 07/18. Copay amount: $0 Spoke with patient. Patient informed of copay. * Ce Samuels RPH - 07/16/2024 10:17 AM EDT [facility] - Care Plan and Refill Review Refill questions and refill history verified. Last assessment 04/03/24. No reassessment needed at this time. Ce Samuels [facility] Specialty Pharmacist documented in this encounter Plan of Treatment Upcoming Encounters Date Type Department Care Team (Late st Contact Info) Description 09/11/2024 1:45 PM EST Office Visit [facility] [address] [place] [address] Swapnil Lopez MD [address] [place] [address] 10/21/2024 2:[address] [facility] [address] [place] [address] Jacky Shirley MD 1 [facility] [place] [address] 10/23/2024 1:45 PM EST Appointment [facility] [place] [address] Olena Darby APRN 1 [facility] [place] [address] documented as of this encounter Goals Goal [...] documented as of this encounter Care Teams Museum Security Chief Relationship Specialty Start Date End Date Damaso Black MD [address] [facility] [address] [place], [place] [id number] PCP - General Family Medicine 11/22/22 Swapnil Lopez MD [address] [place] [address] Internal Medicine-Gastroenterology 02/16/22 Darío Rubio MD [address] [place] [address] [place] [address] Internal Medicine-Medical Oncology 12/11/23 Mya Naranjo MD [address] [place] [address] [place] [address] Family Medicine - Hospice And Palliative Medicine 01/04/24 Ashley Ordonez APRN [address] [place] [address] [place] [address] Nurse Practitioner 01/04/24 Nicole Melendez, RN Registered Nurse 01/04/24 Aislinn Viera, RN Registered Nurse 02/07/24 Ronit Conner, RN Registered Nurse 04/10/24 Armando Veiira, ITA Audit Clerk 04/10/24 Vicki Amato, RN Registered Nurse 04/10/24 Trinh Bullock APRN [address] [facility] [place] [address] Nurse Practitioner Nurse Practitioner-Family 04/10/24 Selina Olsen APRN [address] [place] [address] Nurse Practitioner 04/10/24 Veda Mcfarland, Clerical Staff 05/14/24 documented as of this encounter
--- OUTSIDE RECORDS SUMMARY | 2024-08-15 13:46 | XMS_ITS | Encounter Summary ---
Author Organization [place] [address] Care Team Providers Care Sales Representative Raw Fibers Name Role Phone Swapnil Lopez MD Unavailable [phone] Damaso Black MD Primary Care Provider [phone] Darío Rubio MD Unavailable [phone] Mya Naranjo MD Unavailable [phone] Ashley Ordonez AIRCRAFT STRUCTURAL FITTER Unavailable [phone] Nicole Melendez RN Unavailable Unavailable Aislinn Viera RN Unavailable Unavailable Ronit Conner RN Unavailable Unavailable Armando Vieira VEHICLE INSURANCE AGENT Unavailable Unavailable Vicki Amato RN Unavailable UnavailTrinh Soto AIRCRAFT STRUCTURAL FITTER Unavailable [phone] Selina Olsen AIRCRAFT STRUCTURAL FITTER Unavailable [phone] Veda Mcfarland Clerical Staff Unavailable U navailable Reason for Visit * Reason Onset Date Comments Schedule Appointment 08/13/2024 F/U with SHAQUILLE RN Encounter Details Date Type Department Care Team (Late st Contact Info) Description 08/13/2024 Telephone [facility] Care Medical [place] [address] Darío uRbio MD [address] [place] [address] Schedule Appointment (F/U with AIRCRAFT STRUCTURAL FITTER ) Social History Tobacco Use Types Packs/Day Years [...] AM Gabby De La Garza RMGena * Because of a physical, mental or emotional condition, does this person have difficulty doing errands alone such as visiting a doctor's office or shopping? Answer Date of Assessment Author No 09/05/2017 11:13 AM Gabby De La Garza RMGena documented as of this encounter Mental Status * Because of a physical, mental or emotional condition, does this person have serious difficulty concentrating, remembering or making decisions? Answer Entry Date Author No 09/05/2017 11:13 AM Gabby De La Garza RMA documented in this encounter Miscellaneous Notes * Telephone Encounter - Nikky Virgen, Clerical Staff - 08/15/2024 8:40 AM EST LVM for pt to call [phone] to schedule a vv with an KENISHA (Gi). * Telephone Encounter - Nikky Virgen, Clerical Staff - 08/13/2024 12:26 PM EST LVM for pt to call [phone] to schedule a vv with an KENISHA (Gi). * Telephone Encounter - Aislinn Viera RN - 08/13/2024 11:11 AM EST Received message from Dr. Rubio: Need EKG and labs in 1.5 months prior to AIRCRAFT STRUCTURAL FITTER visit- get done at [facility] and fax over to us Med Onc Scheduling: Please schedule follow up in 1.5 months with AIRCRAFT STRUCTURAL FITTER. Will be video visit. RN will fax orders closer to appointment. documented in this encounter Plan of Treatment Upcoming Encounters Date Type Department Care Team (Late st Contact Info) Description 09/11/2024 1:45 PM EST Office Visit [facility] [address] [facility] [place] [address] Swapnil Lopez MD [address] [place] [address] 10/21/2024 2:00 PM EST Appointment [facility] MRI [address] [place] [address] Jacky Shirley MD [address] [place] [address] [place] [address] 10/23/2024 1:45 PM EST Appointment [facility] [place] [address] Olena Darby APRN [address] [place] [address] [place] [address] documented as of this encounter [...] documented as of this encounter Care Teams Sales Representative Raw Fibers Relationship Specialty Start Date End Date Damaso Black MD [address] [facility] [address] [place] [address] PCP - General Family Medicine 11/22/22 Swapnil Lopez MD [address] [place] [address] Internal Medicine-Gastroenterology 02/16/22 Darío Rubio MD 1 [place] [address] Internal Medicine-Medical Oncology 12/11/23 Mya Naranjo MD [address] [place] [address] [place] [address] Family Medicine - Hospice And Palliative Medicine 01/04/24 Ashley Ordonez APRN [address] [place] [address] Nurse Practitioner 01/04/24 Nicole Melendez, RN Registered Nurse 01/04/24 Asilinn Viera, RN Registered Nurse 02/07/24 Ronit Conner, RN Registered Nurse 04/10/24 Armando Vieira MSW Plant Health Care Technician 04/10/24 Vicki Amato, RN Registered Nurse 04/10/24 Trinh Bullock APRN [address] [place] [address] Nurse Practitioner Nurse Practitioner-Family 04/10/24 Selina Olsen APRN [address] [place] [address] Nurse Practitioner 04/10/24 Veda Mcfarland, Clerical Staff 05/14/24 documented as of this encounter
--- OUTSIDE RECORDS SUMMARY | 2024-08-15 13:46 | XMS_ITS | Encounter Summary ---
Author Organization [facility] [place] [address] Care Team Providers Care Supervisor Harvesting Name Role Phone Swapnil Lopez MD Unavailable [phone] Damaso Black MD Primary Care Provider [phone] Darío Rubio MD Unavailable [phone] Mya Naranjo MD Unavailable [phone] Ashley Ordonez JIGGER MACHINE OPERATOR Unavailable [phone] Nicole Melendez RN Unavailable Unavailable Aislinn Viera RN Unavailable Unavailable Ronit Conner RN Unavailable Unavailable Armando Vieira MANAGER CONSTRUCTION Unavailable Unavailable Vicki Amato RN Unavailable UnavailTrinh Soto JIGGER MACHINE OPERATOR Unavailable [phone] Selina Olsen JIGGER MACHINE OPERATOR Unavailable [phone] Veda Mcfarland Clerical Staff Unavailable U navailable Encounter Details Date Type Department Care Team (Latest Contact Info) Description 06/28/2024 Travel Social History Tobacco Use Types Packs/Day [...] AM Gabby De La Garza SHANNON * Is the person blind or does he/she have serious difficulty seeing even when wearing glasses? Answer Date of Assessment Author No 09/05/2017 11:13 AM Gabby De La GarzaSHANNON * Does this person have serious difficulty walking or climbing stairs? Answer Date of Assessment Author No 09/05/2017 11:13 AM Gabby De La Garza SHANNON * Does this person have difficulty dressing or bathing? Answer Date of Assessment Author No 09/05/2017 11:13 AM Gabby De La GarzaSHANNON * Because of a physical, mental or [...] La Garza SHANNON documented in this encounter Plan of Treatment Upcoming Encounters Date Type Department Care Team (Late st Contact Info) Description 09/11/2024 1:45 PM EST Office Visit [facility] [address] [place] [address] Swapnil Lopez MD [address] [place] [address] 10/21/2024 2:00 PM EST Appointment [facility] [place] [facility] [address] [place] [address] Jacky Shirley MD [address] [place] [address] [place] [address] 10/23/2024 1:45 PM EST Appointment [facility] [place] [address] Olena Darby APRN 1 [facility] [place] [address] documented as of this encounter [...] an ideal body weight General No Linda Walden G, RMA documented as of this encounter Visit Diagnoses Not on filedocumented in this encounter Additional Health Concerns Assessment Noted Time PHQ-9 Depression Total Score: 13 024 1:47 PM EDT PHQ-2 Depression Total Score: 3 12/29/19 24 1:47 PM EDT documented as of this encounter Care Teams Supervisor Harvesting Relationship Specialty Start Date End Date Damaso Black MD [facility] [address] [place] [address] PCP - General Family Medicine 11/22/22 Swapnil Lopez MD [address] [place] [address] Internal Medicine-Gastroenterology 02/16/22 Darío Rubio MD [address] [place] [address] [place] [address] Internal Medicine-Medical Oncology 12/11/23 Mya Naranjo MD [address] [place] [address] [place] [address] Family Medicine - Hospice And Palliative Medicine 01/04/24 Ashley Ordonez APRN [address] [place] [address] [place] [address] Nurse Practitioner 01/04/24 Nicole Melendez, RN Registered Nurse 01/04/24 Aislinn Viera, RN Registered Nurse 02/07/24 Ronit Conner, RN Registered Nurse 04/10/24 Armando Vieira, ITA Brake Repair Mechanic 04/10/24 Vicki Amato, RN Registered Nurse 04/10/24 Trinh Bullock APRN [address] [facility] [place] [address] Nurse Practitioner Nurse Practitioner-Family 04/10/24 Selina Olsen APRN [address] [facility] [place] [address] Nurse Practitioner 04/10/24 Veda Mcfarland, Clerical Staff 05/14/24 documented as of this encounter
--- OUTSIDE RECORDS SUMMARY | 2024-08-15 13:46 | XMS_ITS | Encounter Summary ---
Author Organization [place] [address] Care Team Providers Care Integrated Pest Management Technician Name Role Phone Swapnil Lopez MD Unavailable [phone] Damaso Black MD Primary Care Provider [phone] Darío Rubio MD Unavailable [phone] Mya Naranjo MD Unavailable [phone] Ashley Ordonez CLOTHING PATTERNMAKER Unavailable [phone] Nicole Melendez RN Unavailable Unavailable Aislinn Viera RN Unavailable Unavailable Ronit Conner RN Unavailable Unavailable Armando Vieira OPS MANAGER Unavailable Unavailable Vicki Amato RN Unavailable UnavailTrinh Soto CLOTHING PATTERNMAKER Unavailable [phone] Selina Olsen CLOTHING PATTERNMAKER Unavailable [phone] Veda Mcfarland Clerical Staff Unavailable U navailable Reason for Referral * Nuclear Medicine (Routine) - Pending Review Specialty Diagnoses / Procedures Referred By Contac t Referred To Contact Radiology Diagnoses Carcinoma of left breast metastatic to bone (HCC) Procedures NM BONE SCAN WHOLE BODY Darío Rubio MD [address] [place] [id number] Phone: tel: fax: Referral ID Status Reason Start Date Expiration Date V isits Requested Visits Authorized [id number] Pending Review 08/12/2024 08/11/2025 5 5 * MRI/CAT Scan (Routine) - Pending Review Specialty Diagnoses / Procedures Referred By Lata t Referred To Contact Radiology Diagnoses Carcinoma of left breast metastatic to bone (HCC) Procedures CT CHEST ABDOMEN PELVIS W CONTRAST Darío Rubio MD [address] [place] [address] Phone: tel: fax: Referral ID Status Reason Start Date Expiration Date V isits Requested Visits Authorized [id number] Pending Review 08/12/2024 08/12/2025 1 1 Reason for Visit * Reason Comments CM- Video Visit Breast Cancer Encounter Details Date Type Department Care Team (Latest Contact Info) Description 08/12/2024 2:39 PM EST - 08/12/2024 11:59 PM EST Hospital Encounter Cancer [place] [address] Heather Quiroz MD [address] [place] [address] Darío Rubio MD [address] [place] [address] Carcinoma of left breast metastatic to bone [...] AM Gabby De La Garza RMGena * Does this person have difficulty dressing [...] La Garza RMA documented in this encounter Medications at Time of Discharge acyclovir (ZOVIRAX) 800 mg Oral Tablet Take 1 tablet 5 times a day by oral route for 7 days. 06/05/2024 anastrozole (ARIMIDEX) 1 mg Oral TabletIndications: Invasive ductal carcinoma of breast, left (HCC) Take 1 Tablet by mouth daily. Take with or without food 30 Tablet 11 08/12/2024 diphenoxylate-atro pine (LOMOTIL) 2.5-0.025 mg Oral TabletIndications: [...] needed for Nausea. 60 Tablet 5 07/26/2024 ribociclib (KISQALI) 400 mg/day (200 mg x 2) Oral TabletIndications: Invasive ductal carcinoma of breast, left (HCC) Take 2 tablets by mouth daily for 21 days followed by 7 days off 42 Tablet 08/12/2024 traMADoL (ULTRAM) 50 mg Oral Tablet Take 50 mg by mouth every 4 hours as needed. for pain 2024 triamcinolone (KENALOG) 0.1 % Top CreamIndications:S kin rash Apply topically 3 times daily. 80 g 02/07/2024 documented as of this encounter Ordered Prescriptions Prescription Sig Dispense Quantity Refills Last Filled Start Date End Date ribociclib (KISQALI) 400 mg/day (200 mg x 2) Oral TabletIndications: Invasive ductal carcinoma of breast, left (HCC) Take 2 tablets by mouth daily for 21 days followed by 7 days off 42 Tablet 08/12/2024 anastrozole (ARIMIDEX) 1 mg Oral TabletIndications: Invasive ductal carcinoma of breast, left (HCC) Take 1 Tablet by mouth daily. Take with or without food 30 Tablet 11 08/12/2024 documented in this encounter Discharge Disposition Disposition Code Departure Means Destination Home or Self Care documented in this encounter Progress Notes * Darío Rubio MD - 08/12/2024 2:40 PM EST Images from the original note were not included. Patient presented today for routine care follow-up through a video visit. Patient has reviewed the terms and conditions of service as part of the registration for today's visit. A video visit does not replace a ueqj-me-ukjf exam and further services may be necessary. We are conducting her video visit in a private space and this video visit is being conducted in accordance with state telehealth/video visit regulations. ONCOLOGY FOLLOW-UP: Primary Oncologist: Darío Rubio MD ONCOLOGY PROBLEM LIST: Oncology History Invasive ductal carcinoma of breast, left (HCC) 10/30/2023 Initial Diagnosis Invasive ductal carcinoma of breast, left (HCC) Pathology A) Left breast mass at 2 o'clock, needle biopsy: - Invasive ductal carcinoma, histologic grade 2 (3+2+2). 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 - The invasive tumor measures 10 mm in adri linear length. ER by IHC Positive 96% PgR by IHC Positive 73% HER2 by IHC Equivocal/Low 2+ HER-2 by FISH Pending B) Left axilla abnormal lymph node, needle biopsy: - Metastatic ductal carcinoma. - The tumor measures 7 mm in adri linear length. ER by IHC Positive 96% PgR by IHC Positive 22% HER2 by IHC Negative/Low 1+ HER-2 by FISH Not performed Consult Consult with Dr. Christopher Ruiz 11/13/23 11/06/2023 - Imaging Breast MRI: Known biopsy proven malignancy (ACR-Category 6) 3.4 x 2.3 x 2.8 cm enhancing mass anterior left breast 1:00-2:00 corresponds to the index lesion previously biopsied. Multiple enlarged axillary, axillary tail, and subpectoral lymph nodes. Right Breast: No MRI evidence of disease in the right breast. 11/13/2023 - Genetics [facility] 67 gene panel testing results were negative. CURRENT TREATMENT: Ribociclib + Anastrazole INTERVAL HISTORY: Ms. Sy is a 64 y.o. female who is here for follow up. Patient states that since last visit sugar down diarrhea down. Eating/drinking. Energy level is good. Pain medication helping. Some heart fluttering. Reviewed past medical, surgical, family, and social histories. Review of systems: Constitutional: No fatigue HEENT: No visual problems; no hearing loss or vertigo. Respiratory: No cough, wheezing, or shortness of breath. Cardiovascular: No chest pain. : No frequency or urgency; no dysuria; no hematuria. Musculoskeletal: No back pain Integument: No rash. Neurologic: No headaches; no dizziness Endocrine: No polyuria or polydipsia Lymphatic: No nodes/glands. No night sweats or unintended weight loss. Psychiatric: No depression or anxiety Hematologic: No easy bruising; no anemia. PHYSICAL EXAM: virtual visit GENERAL APPEARANCE: Alert & Cooperative, Oriented X 3 LABS: CBC: Lab Results Component Value Date/Time WBC 7.1 06/07/2024 01:32 PM WBC 15.1 (H) 06/25/2016 11:25 AM RBC 4.14 06/07/2024 01:32 PM RBC 4.83 06/25/2016 11:25 AM PLT 357 06/07/2024 01:32 PM PLT 329 06/25/2016 11:25 AM CMP: Lab Results Component Value Date NA 136 06/07/2024 K 4.5 06/07/2024 CL 102 06/07/2024 CO2 25 06/07/2024 ANIONGAP 9 06/07/2024 CALCIUM 9.1 06/07/2024 GLU 105 (H) 06/07/2024 BUN 17 06/07/2024 CREATININE 1.2 08/09/2024 ALBUMIN 3.9 06/07/2024 PROT 6.6 06/07/2024 LABBILI 0.4 06/07/2024 ALT 9 06/07/2024 AST 14 06/07/2024 GFRAFRAM 77 04/13/2021 GFRNONAFRAM 67 04/13/2021 IMAGING: All relevant images were reviewed in detail with the patient. All questions were addressed and answered in great detail. CT CHEST ABDOMEN PELVIS WO ORAL WITH IV CONTRAST Result Date: 08/09/2024 CT CHEST, ABDOMEN, AND PELVIS WITH CONTRAST, 08/09/2024 3:47 PM CLINICAL HISTORY: C50.912-Malignant neoplasm of unspecified site of left female breast (HCC)-ICD-10-CM. COMPARISON: None. PROCEDURE COMMENTS: Multidetector CT chest abdomen and pelvis with multiplanar reconstructions. Isovue 370 IV contrast given as recorded in EPIC. Dose 1 : CT DLP Total : 592.7 mGycm DLP Spiral Max : 328.3 mGycm Maximum CTDI Vol : 15.6 mGy SSDE : 21.216 mGy SSDE Diameter : 27.229 cm SSDE Source : [employer] FINDINGS:CHEST: History of left breast cancer and left [...] aneurysm. No acute abnormality or evidence of metastaticdisease in the liver, gallbladder, pancreas, spleen, adrenal glands, or kidneys/bladder. Cholelithia sis again noted. No free air, pneumatosis, or free fluid. No focal bowel abnormality. Known historyof Crohn's disease. No evidence of adenopathy. MUSCULOSKELETAL: No acute or worrisome osseous abnormality. The official again noted. 1. History of left breast cancer and left axillary adenopathy. Enlarged left axillary lymph nodes appear unchanged. 2. No CT evidence of metastatic disease in the chest, abdomen, or pelvis. 3. Chronic findings as discussed. - Note: Radiology results need to be interpreted within a comprehensive clinical context. If you have questions about the radiology report, please contact the office of the ordering clinician. ASSESSMENT AND PLAN: Patient is a 63 y.o. 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 Stage IV Invasive Ductal Carcinoma of Left Breast (T2N3M1, ER+, IA+, HER2-) Patient coming from [facility]. Patient reports feeling an enlarging breast lump. She is post-menopausal and has had a hysterectomy and no FMH of cancer. Left breast mass and left axilla biopsied and revealing invasive ductal carcinoma, grade 2, some DCIS as well. ER 96%, IA 73%, HER2 2+, FISH negative, lymph node similar but HER2 1+, no FISH. MRI 11/2023 with 3.4 x 2.3 x 2.8 cm enhancing mass anterior left breast 1:00-2:00 corresponds to the index lesion previously biopsied. Multiple enlarged axillary, axillary tail, and subpectoral lymph nodes. Has supraclavicular nodes that would make N3 disease, but at concerning for at least Stage III disease at this time. Discussed in [facility] or board 11/13/23 and consensus for further imaging, to meet with us, and endocrine therapy to startalong with oncotype. Saw Dr. Ruiz 11/13/23 as well. Oncotype 23. 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 Patient has seen GI colorectal and declined rectal exam and is asymptomatic and does not want intervention at this time. Discussed at tumor board again, felt cannot biopsy calvarial met and NSG bx would be very invasive. Would treat as stage IV disease. Consensus for faslodex monthly monotherapy if still in [facility]. Discussed side effects of faslodex and gave information. If out of [facility]- would consider faslodex and ribociclib vs AI + CDK4/6. Out of [facility] mid December 2023 and I discussed we could do CDK4/6 inhibitor ribociclib (kisqali) + anastrazole (AI). Had started on AI prior. Discussed side effects of neutropenia, EKG/arrhythmia abnormalities, peripheral edema, alopecia, rash, electrolyte abnormalities, n/v/d, abdominal pain, other cyt openias, liver and kidney abnormalities, infection, fatigue, dizziness, headaches, arthralgias, osteoporosis long term care social worker, fever, hot flashes, mood swings and other side effects that will be discussed in teach session with RN. To take days 1-21 and have 7 days off. Baseline Qtc 395 on 12/19/23 with sinus bradycardia and non-specific T-wave inversion- no known coronary disease she knows of. Poor tolerance of full dose kisqali with sig diarrhea. Now on 400 mg daily and doing well. Recent f/u with GI (hx Crohn's disease) and not currently on medication for management. GI noted she was doing well and will continue to monitor off therapy. Most recent CT 04/2024 and MRI brain 04/2024 negative for new metastasis. Getting in with chronic pain doctor as well. Last EKG Qtc 403 in 03/2024. DEXA 2023 showing osteoporosis. She declined bone modifying agents given distance from her house. 08/12/24 update: Reviewed CT CAP results with her- stable to slightly improved breast mass and adenopathy. No new signs of disease. Tolerating tx well, diarrhea now resolved after removing high glucose containing foods from diet. -Continue AI + kisqali 400 mg daily (days 1-14, off 7 days after), refilled today -CBC and CMP not done yet given she lives in [place], discussed importance of doing this with visits for monitoring- will get labs and EKG sent over to [place] to be done and results faxed to us -GI manages lomotil for crohn's related diarrhea, follows with Dr Lopez -Endorses compliancy Ca/VitD and doing weight bearing exercise -Next scans due in 3 months; ordered today Follow up with CLOTHING PATTERNMAKER next 1m and 2 m visits, 3m with me with CT/bone scan prior (2-3 days) A total of 29 minutes of the encounter was spent in performing the following complex tasks: 1) Reviewing medical records in [facility] and if applicable outside records as well 2) Ordering labs and reviewing results 3) Obtaining history and performing a physical exam 4) Counseling and educating patient, family, and caregiver(s) 5) Ordering medications, labs/tests (including independent interpretation of results when not reported separately) , procedures and coordinating care amongst other healthcare professionals 6) Documentation in the EMR After the visit, the patient was given the opportunity to ask questions and all questions were answered to the patient's satisfaction. Patient agrees to the plan as highlighted above in my note and knows when/who to call regarding any concerning symptoms or questions. Darío Rubio MD Hematology/Oncology documented in this encounter Plan of Treatment Upcoming Encounters Date Type Department Care Team (Late st Contact Info) Description 09/11/2024 1:45 PM EST Office Visit [facility] [address] [place] [place] [address] Swapnil Lopez MD [address] [place] [address] 10/21/2024 2:[address] [facility] [address] [place] [address] Jacky Shirley MD [address] [place] [address] [place] [address] 10/23/2024 1:45 PM EST Appointment [facility] [place] [address] Olena Darby APRN [address] [place] [address] [place] [address] Scheduled Orders Name Type Priority Associated Diagnoses Orde r Schedule CT CHEST ABDOMEN PELVIS W CONTRAST Imaging Routine Carcinoma of left breast metastatic to bone (HCC) Expected: 11/11/2024, Expires: 08/11/2025 NM BONE SCAN WHOLE BODY Imaging Routine Carcinoma of left breast metastatic to bone (HCC) Expected: 11/11/2024, Expires: 08/11/2025 documented as of this encounter Goals Goal Patient Goal Type Associated Problems Recent Progress Patient-Stated? Author Breast [facility] Breast [facility] Mary Kate Vázquez, RN Note: Patient acknowledges understanding of new diagnosis, plan of care, available resources and how to contact Nurse Navigator with any future questions or concerns. Maintain a healthy diet, exercise regularly and maintain an ideal body weight General Linda Perez, RMA documented as of this encounter Visit Diagnoses Diagnosis Carcinoma of left breast metastatic to bone (HCC)- Primary Encounter for chemotherapy management Encounter for monitoring anastrozole therapy Encounter for therapeutic drug monitoring Invasive ductal carcinoma of breast, left (HCC) documented in this encounter Discontinued Medications Medication Sig Discontinue Reason Start Date End Da te anastrozole (ARIMIDEX) 1 mg Oral TabletIndications:Invas jeannine ductal carcinoma of breast, left (HCC) Take 1 Tablet by mouth daily. Take with or without food Reorder 05/06/2024 08/12/2024 ribociclib (KISQALI) 400 mg/day (200 mg x 2) Oral TabletIndications:Invas jeannine ductal carcinoma of breast, left (HCC) Take 2 tablets by mouth daily for 21 days followed by 7 days off Reorder 07/26/2024 08/12/2024 traMADoL 100 mg Oral Tablet Cancelled by 03/21/2024 08/12/2024 documented as of this encounter Historical Medications * This list may reflect changes made after this encounter. traMADoL (ULTRAM) 50 mg Oral Tablet Take 50 mg by mouth every 4 hours as needed. for pain 2024 added in this encounter Additional Health Concerns Assessment Noted Time PHQ-9 Depression Total Score: 13 024 1:47 PM EDT PHQ-2 Depression Total Score: 3 12/29/19 24 1:47 PM EDT documented as of this encounter Care Teams Integrated Pest Management Technician Relationship Specialty Start Date End Date Damaso Black MD [address] [place] [phone] PCP - General Family Medicine 11/22/22 Swapnil Lopez MD [address] [place] [id number] Internal Medicine-Gastroenterology 02/16/22 Darío Rubio MD [address] [place] [address] [place] [address] Internal Medicine-Medical Oncology 12/11/23 Mya Naranjo MD [address] [place] [address] [place] [address] Family Medicine - Hospice And Palliative Medicine 01/04/24 Ashley Ordonez APRN [address] [place] [address] [place] [address] Nurse Practitioner 01/04/24 Nicole Melendez, RN Registered Nurse 01/04/24 Aislinn Viera, RN Registered Nurse 02/07/24 Ronit Conner, RN Registered Nurse 04/10/24 Armando Vieira, OPS MANAGER [place] [facility] 04/10/24 Vicki Amato, RN Registered Nurse 04/10/24 Trinh Bullock APRN [address] [place] [address] [place] [address] Nurse Practitioner Nurse Practitioner-Family 04/10/24 Selina Olsen APRN [address] [place] [address] [place] [address] Nurse Practitioner 04/10/24 Veda Mcfarland, Clerical Staff 05/14/24 documented as of this encounter
--- OUTSIDE RECORDS SUMMARY | 2024-08-15 13:46 | XMS_ITS | Referral Summary ---
Author Organization [facility] Address [address] [place] [address] Phone Care Team Providers Care Security Systems Integrator Name Role Phone Swapnil Lopez MD Unavailable [phone] Damaso Blcak MD Primary Care Provider [phone] Darío Rubio MD Unavailable [phone] Mya Naranjo MD Unavailable [phone] Ashley Ordonez DIRECTOR VIDEO Unavailable [phone] Nicole Melendez RN Unavailable Unavailable Aislinn Viera RN Unavailable Unavailable Ronit Conner RN Unavailable Unavailable Armando Vieira SALES ASSOCIATE CASHIER Unavailable Unavailable Vicki Amato RN Unavailable UnavailTrinh Soto DIRECTOR VIDEO Unavailable [phone] Selina Olsen DIRECTOR VIDEO Unavailable [phone] Veda Mcfarland Clerical Staff Unavailable U navailable Encounters Date Type Department Care Team Description 08/13/2024 Telephone [facility] [place] [address] Darío Rubio MD Schedule Appointment (F/U with DIRECTOR VIDEO ) 08/12/2024 2:39 PM EST - 08/12/2024 11:59 PM EST Hospital Encounter [facility] [place] [address] Heather Quiroz MD Kurian, Matthew, MD 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 [address] [place] [address] Darío Rubio MD Invasive ductal carcinoma of breast, left (HCC) Discharge Disposition: Home or Self Care 07/26/2024 Refill [facility] [place] [address] Darío Rubio MD Medication Refill 07/26/2024 Refill [facility] [address] [facility], [facility]17 Swapnil Lopez MD Medication Refill 07/26/2024 Refill [facility] [address] [facility], [facility]17 Swapnil Lopez MD Medication Refill 07/25/2024 Refill [facility] [address] [facility], [facility]17 Swapnil Lopez MD Medication Refill 07/22/2024 Refill [facility] [address] [facility], [facility]17 Swapnil Lopez MD Medication Refill 07/19/2024 Orders Only [facility] [address] [facility], [facility]17 Swapnil Lopez MD Irritable bowel syndrome with diarrhea (Primary Dx) 07/16/2024 Refill [facility] [place] [id number] Darío Rubio MD Medication Refill 07/16/2024 Specialty Pharmacy [facility] [address] [place], [place] [id number] Shruthi Veras CPhT Pharmacy Oncology Management (Ribociclib) 07/03/2024 Orders Only [facility] [place] [address] Darío Rubio MD Invasive ductal carcinoma of breast, left (HCC) (Primary Dx) 07/03/2024 Telephone Cancer [facility] [place] [address] Darío Rubio MD Schedule Appointment (CT CAP/Lab + OV ) 07/03/2024 2:56 PM EDT - 07/03/2024 11:59 PM EDT Hospital Encounter [facility] [place] [address] Heather Quiroz MD Kurian, Matthew, MD Invasive ductal carcinoma of left breast, stage 4 (HCC) (Primary Dx); Encounter for chemotherapy management; Use of anastrozole Discharge Disposition: Home or Self Care 06/28/2024 Travel 06/20/2024 Refill [facility] [place] [phone] Darío Rubio MD Medication Refill 06/20/2024 Specialty Pharmacy [facility] [address] [place] [address] Shruthi Caruso CPhT Pharmacy Oncology Management (Ribociclib) 06/19/2024 Refill [facility] [id number] [place] [address] Selina Olsen APRN Medication Refill 06/07/2024 1:27 PM EDT - 06/07/2024 1:32 PM EDT Hospital Encounter [facility] [place], [place] [id number] Heather Quiroz MD Palliative care by specialist; Cancer related pain; Invasive ductal carcinoma of breast, left (HCC); Secondary malignant neoplasm of bone (HCC); Encounter for medication monitoring Discharge Disposition: Home or Self Care 06/07/2024 1:33 PM EDT - 06/07/2024 11:59 PM EDT Hospital Encounter [facility] [place] [address] GjysHeather montenegro MD Delisle, Liberty E, APRN Invasive ductal carcinoma of breast, left (HCC) (Primary Dx); Carcinoma of breast metastatic to bone, unspecified laterality (HCC); Encounter for medication monitoring; Aromatase inhibitor use Discharge Disposition: Home or Self Care 06/07/2024 12:30 PM EDT - 06/07/2024 1:26 PM EDT Hospital Encounter [facility] [address] [place] [id number] Darío Rubio MD Invasive ductal carcinoma of left breast, stage 4 (HCC) Discharge Disposition: Home or Self Care 06/05/2024 7:41 AM EDT - 06/05/2024 11:59 PM EDT Hospital Encounter [facility] [address] [place] [address] Heather Quiroz MD Huth, Bradley Joseph, MD Secondary malignant neoplasm of bone (HCC) (Primary Dx) Discharge Disposition: Home or Self Care 06/02/2024 Travel 05/27/2024 Telephone [facility] [place] [phone] Darío Rubio MD Schedule Appointment (F/U) 05/24/2024 Orders Only [facility] [place] [address] Aislinn Champion, RN Secondary malignant neoplasm of bone (HCC) (Primary Dx) 05/24/2024 Telephone [facility] [place] [phone] Ai Hobbs MA 05/21/2024 Refill [facility] [place] [phone] Darío Rubio MD Medication Refill 05/21/2024 Refill [facility] [address] [place], [place] [id number] Selina Olsen APRN Medication Refill 05/21/2024 Refill [facility] [place] [address] Darío Rubio MD Medication Refill 05/21/2024 Specialty Pharmacy [facility] [address] [place] [address] Shruthi Caruso, [facility] Pharmacy Oncology Management (Ribociclib) 05/15/2024 Orders Only [facility] [address] [place] [address] Jacky Shirley MD Crohn's disease of colon with complication (HCC) (Primary Dx); Secondary malignant neoplasm of bone (HCC) from Last 3 Months Allergies Active Allergy Reactions Criticality Noted Date Comments Fat Qwtksybs-Kwvoy-Yen-Lipid Rash,Myalgia 04/15 Dxjxy-Zckze-2-Wjy-Mls-Mmkuqd Hives 022 Sulfa (Sulfonamide Antibiotics) Medications triamcinolone [...] a mammogram. EB Controlled agreement signed for [email or web address] 11/11/20 with Problem Noted Date Diagnosed Date Secondary malignant neoplasm of bone 01/10/2024 Palliative care by specialist 12/29/2023 Cancer related pain 12/29/2023 Invasive ductal carcinoma of breast, left 2023 Cancer Staging:Clinical stage from 11/13/2023:Stage IIA(cT2, cN1, cM0, G2, ER+, TX+, HER2-) - Signed by Ian Ruiz MD on 11/18/2023 De Quervain's tenosynovitis 03/24/2021 Overview (03/25/2021): Added automatically from request for surgery [id number] De Quervain thyroiditis 02/05/2021 Overview (02/05/2021): Added automatically from request for surgery [id number] De Quervain's tenosynovitis, left 02/05/2021 Overview (02/12/2021): Added automatically from request for surgery [id number] Ulcer of great toe, left, with necrosis [...] will need to watch closely. Hope that senior care the ssri will help and will no [...] on this. History of stomach cancer Depression Social History Tobacco Use Types Packs/Day Years [...] on file Sexual Orientation Not on file Last Filed [...] Mass Index 23.61 06/07/2024 1:38 PM EDT Functional Status * Is the person deaf [...] 11:13 AM Gabby De La Garza RMA Mental Status * Because of a physical, mental or emotional condition, does this person have serious difficulty concentrating, remembering or making decisions? Answer Entry Date Author No 09/05/2017 11:13 AM Gabby De La Garza RMA Plan of Treatment Upcoming Encounters Date Type Department Care Team (Late st Contact Info) Description 09/11/2024 1:45 PM EST Office Visit [facility] [address] [place] [address] Swapnil Lopez MD [address] [place] [address] 10/21/2024 2:00 PM EST Appointment [facility] MRI [address] [place] [address] Jacky Shirley MD [address] [place] [address] [place] [address] 10/23/2024 1:45 PM EST Appointment [facility] [place] [address] Olena Darby APRN [address] [place] [address] [place] [address] Goals Goal Patient Goal Type Associated Problems Recent Progress Patient-Stated? Author Breast [facility] No Mary Kate Winchester, RN Note: Patient acknowledges understanding of new [...] Diameter : 27.229 cm SSDE Source : [employer] FINDINGS: ?? CHEST: History of left breast [...] of the ordering clinician. Darío Rubio MD IM CT ORDERABLES Final Result * CREATININE ISTAT (08/09/2024 3:37 PM EST) Creatinine-iST AT 1.2 0.6 - 1.3 mg/dL 08/09/2024 3:41 PM EST [facility] Blood BLOOD SPECIMEN / Unknown 08/09/2024 3:37 PM EST 08/09/2024 3:41 PM EST Darío Rubio MD POINT OF CARE TEST ORDERABLES Final Result [facility] [address] [place], [place] [id number] * (ABNORMAL) CBC WITH DIFF (06/07/2024 1:32 PM EDT) [facility] Signature WBC 7.1 3.7 - 10.3 x10(3)/mcL 06/07/2024 1:40 PM EDT [facility] RBC 4.14 3.90 - 5.20 x10(6)/mcL 06/07/2024 1:40 PM EDT [facility] Hgb 12.8 11.2 - 15.7 g/dL 06/07/2024 1:40 PM EDT [facility] Hct 38.5 34.0 - 45.0 % 06/07/2024 1:40 PM EDT [facility] MCV 93.0 80.0 - 100.0 fL 06/07/2024 1:40 PM EDT [facility] MCH 30.9 26.0 - 34.0 pg 06/07/2024 1:40 PM EDT [facility] MCHC 33.2 30.7 - 35.5 g/dL 06/07/2024 1:40 PM EDT [facility] RDW 14.3 <=14.9 % 06/07/2024 1:40 PM EDT [facility] Platelet 357 155 - 369 x10(3)/[facility] 06/07/2024 1:40 PM EDT [facility] MPV 8.5(L) 8.8 - 12.5 fL 06/07/2024 1:40 PM EDT [facility] Neut # Prelim 4.9 1.6 - 6.1 x10(3)/[facility] 06/07/2024 1:40 PM EDT [facility] Comment:Preliminary automate d absolute neutrophil count. Value may change if manual differential is indicated. Neut Percent 69.1 % 06/07/2024 1:40 PM EDT [facility] Comment:Neutrophils equals s egs plus bands Imm Gran% 0.3 % 06/07/2024 1:40 PM EDT [facility] Comment:Automated count of m etamyelocytes, myelocytes and promyelocytes. Lymph Percent 21.3 % 06/07/2024 1:40 PM EDT [facility] Treasure Percent 8.5 % 06/07/2024 1:40 PM EDT [facility] Eos Percent 0.7 % 06/07/2024 1:40 PM EDT [facility] Baso Percent 0.1 % 06/07/2024 1:40 PM EDT [facility] Neut # 4.9 1.6 - 6.1 x10(3)/[facility] 06/07/2024 1:40 PM EDT [facility] Comment:Neutrophils equals s egs plus bands IMMGRAN# 0.0 0.0 - 0.1 x10(3)/[facility] 06/07/2024 1:40 PM EDT [facility] Comment:Automated count of m etamyelocytes, myelocytes and promyelocytes. An absolute IG <0.1 is reported as 0.0. Lymph # 1.5 1.2 - 3.9 x10(3)/[facility] 06/07/2024 1:40 PM EDT [facility] Treasure # 0.6 0.3 - 0.9 x10(3)/[facility] 06/07/2024 1:40 PM EDT [facility] Eos# 0.1 0.0 - 0.5 x10(3)/[facility] 06/07/2024 1:40 PM EDT [facility] Baso # 0.0 0.0 - 0.1 x10(3)/[facility] 06/07/2024 1:40 PM EDT [facility] Blood VENOUS BLOOD / Unknown Venipuncture / Unknown 06/07/2024 1:32 PM EDT 06/07/2024 1:32 PM EDT us Darío Rubio MD HEMATOLOGY ORDERABLES Final Re sult [facility] [address] [place] [address] * (ABNORMAL) COMPREHENSIVE METABOLIC PANEL (06/07/2024 1:32 PM EDT) Sodium 136 136 - 145 mmol/L 06/07/2024 1:56 PM EDT [facility] Potassium 4.5 3.5 - 5.0 mmol/L 06/07/2024 1:56 PM T [facility] Chloride 102 98 - 107 mmol/L 06/07/2024 1:56 PM [facility] Total CO2 25 22 - 29 mmol/L 06/07/2024 1:56 PM [facility] Anion Gap 9 7 - 16 mmol/L 06/07/2024 1:56 PM [facility] Calcium 9.1 8.8 - 10.4 mg/dL 06/07/2024 1:56 PM [facility] Glucose Lvl 105(H) 70 - 99 mg/dL 06/07/2024 1:56 PM [facility] BUN 17 8 - 23 mg/dL 06/07/2024 1:56 PM [facility] Creatinine 0.98 0.51 - 1.30 mg/dL 06/07/2024 1:56 PM [facility] Albumin 3.9 3.2 - 4.6 gm/dL 06/07/2024 1:56 PM [facility] Total Protein 6.6 6.4 - 8.3 gm/dL 06/07/2024 1:56 PM [facility] Bili Total 0.4 0.2 - 1.3 mg/dL 06/07/2024 1:56 PM [facility] ALT 9 <=41 U/L 06/07/2024 1:56 PM [facility] AST 14 <=40 U/L 06/07/2024 1:56 PM [facility] Alk Phos 84 36 - 123 U/L 06/07/2024 1:56 PM [facility] eGFR (CKD-EPIcr 2020) 65 >=60 mL/min/1.7 3 m2 06/07/2024 1:56 PM [facility] Comment:Estimated GFR was ca lculated using the CKD-EPIcr (2020) equation refit without race. The equation is recommended by the National Kidney Foundation - [place] [employer] of Neph[employer] Task Force. Blood VENOUS BLOOD / Unknown Venipuncture / Unknown 06/07/2024 1:32 PM EDT 06/07/2024 1:32 PM EDT us Darío Rubio MD CHEMISTRY ORDERABLES Final Res ult [facility] [address] [address] * DX BONE DENSITY AXIAL SKELETON (06/07/2024 12:52 PM EDT) Anatomical Region Laterality Modality Dexa Scan 06/07/2024 Impressions 06/07/2024 3:50 PM EDT Indication: The patient is a post-menopausal female under age 65 with clinical risk factors for an osteoporotic fracture that requires a bone density assessment. Study was performed on [employer] 5. Bone Density: Region ?BMD ? T-score [...] 2:37 PM EST Incomplete-need additional imaging evaluation (YRM-Cymlmcty-3) Suspicious left breast mass and axillary adenopathy. [...] the next mammogram, in accordance with the [place] [employer] and the Society of Breast Imaging recommendations. Narrative 10/12/2023 2:37 PM EST Procedure:MM MAMMO DIGITAL DANIELA DIAGN BILAT ~ Reason for exam: clinical finding. N63.0-Unspecified lump in unspecified [id number]-CM ~ MM MAMMO DIGITAL DANIELA DIAGN BILAT [...] exam: clinical finding. N63.0-Unspecified lump in unspecified xzyjgj-JJD-93-CM ~ MM MAMMO DIGITAL DANIELA DIAGN BILAT Bilateral CC and MLO view(s) were taken. There are scattered fibroglandular densities. 2:00 left breast is an approximate 2.5 cm spiculated mass containing some pleomorphic calcifications and several long spicules extending for severalcentimeters. In addition, there are multiple enlarged left axillary nodes, largest2.6 cm. Right breast unremarkable. ~ IMPRESSION: Incomplete-need additional imaging evaluation (OPN-Cyvvxiko-3) Suspicious left breast mass and axillary adenopathy. [...] the next mammogram, in accordance with the [place] [employer] and the Society of Breast Imaging recommendations. Slava LAZAR IM MAMMOGRAPHY ORDERABLES Final Result * HEPATITIS C ANTIBODY - SCREENING (12/26/2019 3:31 PM EDT) Hep C Ab Non-Reactiv e Non-Reacti ve 12/26/2019 5:41 PM EDT [employer] Blood VENOUS BLOOD / Unknown Venipuncture / Unknown 12/26/2019 3:31 PM EDT 12/26/2019 3:31 PM EDT Swapnil Lopez MD HEMATOLOGY ORDERABLES Final Re sult [employer] [address] [facility] , [place] [address] from Last 3 Months or Most Recently Relevant to Health Maintenance [place] [address] [place] [address] [facility] MEDICAID Advance Directives For more information, please contact: [phone] Documents on File Type Date Recorded Patient Human Resource Manager Expl anation ADVANCE DIRECTIVE 10/31/2023 6:18 PM DPOA 04/24/2023 * Full Code (Latest Code Status on File) Date Activated Date Inactivated Comments 04/03/2015 2:11 PM 04/03/2015 10:26 PM Care Teams Security Systems Integrator Relationship Specialty Start Date End Date Damaso Black MD [address] [address] PCP - General Family Medicine 11/22/22 Swapnil Lopez MD [address] [place] [phone] Internal Medicine-Gastroenterology 02/16/22 Darío Rubio MD [address] [place] [address] [place] [address] Internal Medicine-Medical Oncology 12/11/23 Mya Naranjo MD [address] [facility] [place] [address] Family Medicine - Hospice And Palliative Medicine 01/04/24 Ashley Ordonez, YON [address] [facility] [place] [address] Nurse Practitioner 01/04/24 Nicole Melendez, RN Registered Nurse 01/04/24 Aislinn Viera, RN Registered Nurse 02/07/24 Ronit Conner, RN Registered Nurse 04/10/24 Armando Vieira, SALES ASSOCIATE CASHIER Carburetor Mechanic 04/10/24 Vicki Amato, RN Registered Nurse 04/10/24 Trinh Bullock APRN [address] [facility] [place] [address] Nurse Practitioner Nurse Practitioner-Family 04/10/24 Selina Olsen, YON [address] [facility] [place] [address] Nurse Practitioner 04/10/24 Veda Mcfarland, Clerical Staff 05/14/24
--- OUTSIDE RECORDS SUMMARY | 2024-08-15 13:46 | XMS_ITS | Encounter Summary ---
Author Organization [facility] [place] [address] Care Team Providers Care Retail Selling Floor Leader Name Role Phone Swapnil Lopez MD Unavailable [phone] Damaso Black MD Primary Care Provider [phone] Darío Rubio MD Unavailable [phone] Mya Naranjo MD Unavailable [phone] Ashley Ordonez DIET ASSISTANT Unavailable [phone] Nicole Melendez RN Unavailable Unavailable Aislinn Viera RN Unavailable Unavailable Ronit Conner RN Unavailable Unavailable Armando Vieira CHAIR INSPECTOR AND LEVELER Unavailable Unavailable Vicki Amato RN Unavailable UnavailTrinh Soto DIET ASSISTANT Unavailable [phone] Selina Olsen DIET ASSISTANT Unavailable [phone] Veda Mcfarland Clerical Staff Unavailable U navailable Encounter Details Date Type Department Care Team (Latest Contact Info) Description 08/11/2024 Travel Social History Tobacco Use Types Packs/Day [...] PM EST Office Visit [facility] [address] [place] [address] Swapnil Lopez MD [address] [place] [address] 10/21/2024 2:00 PM EST Appointment [facility] [place] MRI [address] [place] [address] Jacky Shirley MD [address] [place] [address] [place] [address] 10/23/2024 1:45 PM EST Appointment [facility] [place] [address] Olena Darby APRN [address] [facility] [place] [address] documented as of this encounter [...] documented as of this encounter Care Teams Retail Selling Floor Leader Relationship Specialty Start Date End Date Damaso Black MD [facility] [address] [place] [address] PCP - General Family Medicine 11/22/22 Swapnil Lopez MD [address] [place] [phone] Internal Medicine-Gastroenterology 02/16/22 Darío Rubio MD [address] [place] [address] [place] [address] Internal Medicine-Medical Oncology 12/11/23 Mya Naranjo MD [address] [place] [address] [place] [address] Family Medicine - Hospice And Palliative Medicine 01/04/24 Ashley Ordonez APRN [address] [place] [address] [place] [address] Nurse Practitioner 01/04/24 Nicole Melendez, RN Registered Nurse 01/04/24 Aislinn Viera, RN Registered Nurse 02/07/24 Ronit Conner, RN Registered Nurse 04/10/24 Armando Vieira, ITA Optometric Technologist 04/10/24 Vicki Amato, RN Registered Nurse 04/10/24 Trinh Bullock APRN [address] [facility] [place] [address] Nurse Practitioner Nurse Practitioner-Family 04/10/24 Selina Olsen APRN [address] [facility] [place] [address] Nurse Practitioner 04/10/24 Veda Mcfarland, Clerical Staff 05/14/24 documented as of this encounter
--- OUTSIDE RECORDS SUMMARY | 2024-08-15 13:46 | XMS_ITS | Encounter Summary ---
Author Organization [employer] [place] [address] Care Team Providers Care Director Diabetes Name Role Phone Swapnil Lopez MD Unavailable [phone] Damaso Black MD Primary Care Provider [phone] Darío Rubio MD Unavailable [phone] Mya Naranjo MD Unavailable [phone] Ashley Ordonez DIRECTOR OF GOVERNMENT SALES Unavailable [phone] Nicole Melendez RN Unavailable Unavailable Eleuterio Osullivan RN Unavailable Unavailable Ronit Conner RN Unavailable Unavailable Armando Vieira REFRACTORY WORKER Unavailable Unavailable Vicki Amato RN Unavailable UnavailTrinh Soto DIRECTOR OF GOVERNMENT SALES Unavailable [phone] Selina Olsen DIRECTOR OF GOVERNMENT SALES Unavailable +[phone] Veda Mcfarland Clerical Staff Unavailable U navailable Reason for Visit * Reason Onset Date Comments Schedule Appointment 07/03/2024 CT CAPLab + OV Encounter Details Date Type Department Care Team (Late st Contact Info) Description 07/03/2024 [facility]phone [facility] [place] [address] Darío Rubio MD [address] [place], [place] [id number] Schedule Appointment (CT CAP/Lab + OV ) Social History Tobacco Use Types Packs/Day [...] documented in this encounter Miscellaneous Notes * Addendum Note - Eleuterio Osullivan RN - 07/17/2024 10:20 AM EDTAddended by: ELEUTERIO OSULLIVAN on: 07/17/2024 10:20 AM Modules accepted: Orders * Telephone Encounter - Nikky Virgen, Clerical Staff - 07/12/2024 8:32 AM EDT LVM with son (on HIPAA Consent) asking him to let pt know that she needs a CT and MD OV with Dr. Rubio and to call [phone] to schedule. * Telephone Encounter - Nikky Virgen Clerical Staff - 07/12/2024 8:32 AM EDT LVM advising pt to call [phone] and then call [phone] to schedule a 3 wk md ov. * Telephone Encounter - Eleuterio Osullivan, ANGE - 07/10/2024 11:01 AM EDT Sent [employer] message to have patient call and get her CT scan so we can schedule her appt same day. * Telephone Encounter - Nikky Virgen Clerical Staff - 07/09/2024 8:10 AM EDT LVM advising pt to call [phone] and then call [phone] to schedule a 3 wk md ov. * Telephone Encounter - Nikky Virgen Clerical Staff - 07/04/2024 7:43 AM EDT Response from CS: LVM for pt to call back to schedule. * Telephone Encounter - Nikky Virgen Clerical Staff - 07/03/2024 4:03 PM EDT Placed on STAT List to schedule. * Telephone Encounter - Eleuterio Osullivan, ANGE - 07/03/2024 3:20 PM EDT Patient to have CT CAP and follow up with Ramiro in 3 weeks. Patient lives around 2 hours away so make same day. documented in this encounter Plan of Treatment Upcoming Encounters Date Type Department Care Team (Late st Contact Info) Description 09/11/2024 1:45 PM EST Office Visit [facility] [address] [facility], [place] [id number] Swapnil Lopez MD [address] [facility] [address] 10/21/2024 2:00 PM EST Appointment [facility] MRI [address] [place] [address] Jacky Shirley MD [address] [place] [address] [facility] [place], [place] [id number] 10/23/2024 1:45 PM EST Appointment [facility] ON[facility] One [place], [place] [id number] Olena Darby APRN [address] [place] [address] [place] [address] Scheduled Orders Name Type Priority Associated Diagnoses Orde r Schedule CBC WITH DIFF Lab Routine Invasive ductal carcinoma of left breast, stage 4 (HCC) Aromatase inhibitor use Expected: 08/09/2024 (Approximate), Expires: 07/17/2025 COMPREHENSIVE METABOLIC PANEL Lab Routine Invasive ductal carcinoma of left breast, stage 4 (HCC) Aromatase inhibitor use Expected: 08/09/2024 (Approximate), Expires: 07/17/2025 documented as of this encounter Goals Goal Patient Goal Type Associated Problems Recent Progress Patient-Stated? Author Breast Health Breast Health Mary Kate Vázquez RN Note: Patient acknowledges understanding of new diagnosis, plan of care, available resources and how to contact Nurse Navigator with any future questions or concerns. Maintain a healthy diet, exercise regularly and maintain an ideal body weight General No Linda Walden G, RMA documented as of this encounter Visit Diagnoses Diagnosis Invasive ductal carcinoma of left breast, stage 4 (HCC)- Primary Aromatase inhibitor use Use of aromatase inhibitors documented in this encounter Additional Health Concerns Assessment Noted Time PHQ-9 Depression Total Score: 13 024 1:47 PM EDT PHQ-2 Depression Total Score: 3 12/29/19 24 1:47 PM EDT documented as of this encounter Care Teams Director Diabetes Relationship Specialty Start Date End Date Damaso Black MD [address] [facility] [address] [place] [address] PCP - General Family Medicine 11/22/22 Swapnil Lopez MD [address] [place] [address] Internal Medicine-Gastroenterology 02/16/22 Darío Rubio MD [address] [facility] [place] [address] Internal Medicine-Medical Oncology 12/11/23 Mya Naranjo MD [address] [place] [address] [place] [address] Family Medicine - Hospice And Palliative Medicine 01/04/24 Ashley Ordonez APRN [address] [facility] [place] [place] [address] Nurse Practitioner 01/04/24 Nicole Melendez, RN Registered Nurse 01/04/24 Eleuterio Osullivan, RN Registered Nurse 02/07/24 Ronit Conner, ANGE Registered Nurse 04/10/24 Armando Vieira MSW Head Of Marketing Adometry 04/10/24 Vicki Amato, ANGE Registered Nurse 04/10/24 Trinh Bullock APRN [address] [facility] [place] [address] Nurse Practitioner Nurse Practitioner-Family 04/10/24 Selina Olsen APRN [address] [facility] [place] [address] Nurse Practitioner 04/10/24 Veda Mcfarland, Clerical Staff 05/14/24 documented as of this encounter
--- OUTSIDE RECORDS SUMMARY | 2024-08-15 13:46 | XMS_ITS | Encounter Summary ---
Author Organization [facility] rology Address [address] [place] [address] Care Team Providers Care Visitor Use Assistant Name Role Phone Swapnil Lopez MD Unavailable [phone] Damaso Black MD Primary Care Provider [phone] Darío Rubio MD Unavailable [phone] Mya Naranjo MD Unavailable [phone] Ashley Ordonez SPRING SALVAGE WORKER Unavailable [phone] Nicole Melendez RN Unavailable Unavailable Aislinn Viera RN Unavailable Unavailable Ronit Conner RN Unavailable Unavailable Armando Vieira THREE DIMENSIONAL ART INSTRUCTOR Unavailable Unavailable Vicki Amato RN Unavailable UnavailTrinh Soto SPRING SALVAGE WORKER Unavailable +[phone] Selina Olsen SPRING SALVAGE WORKER Unavailable [phone] Veda Mcfarland Clerical Staff Unavailable U navailable Encounter Details Date Type Department Care Team (Late st Contact Info) Description 07/19/2024 Orders Only [facility] [address] [place] [address] Swapnil Lopez MD [address] [place] [address] Irritable bowel syndrome with diarrhea (Primary Dx) Social History Tobacco Use Types [...] Refills Last Filled Start Date End Date rifAXIMin (XIFAXAN) 550 mg Oral TabletIndications: Irritable bowel syndrome with diarrhea Take 1 Tablet by mouth 3 times daily for 14 days. 42 Tablet 07/19/2024 08/02/2024 documented in this encounter Plan of Treatment Upcoming Encounters Date Type Department Care Team (Late st Contact Info) Description 09/11/2024 1:45 PM EST Office Visit [facility] [address] [place] [address] Swapnil Lopez MD [address] [place] [address] 10/21/2024 2:[address] [facility] MRI [address] [place] [id number] Jacky Shirley MD 1 [facility] [address] 10/23/2024 1:45 PM EST Appointment [facility] [address] Olena Darby APRN [address] [place] [address] documented as of this encounter Goals [...] ideal body weight General No Linda Walden, A documented as of this encounter Visit Diagnoses Diagnosis Irritable bowel syndrome with diarrhea- Primary Irritable bowel syndrome documented in this encounter Additional Health Concerns Assessment Noted Time PHQ-9 Depression Total Score: 13 024 1:47 PM EDT PHQ-2 Depression Total Score: 3 12/29/19 24 1:47 PM EDT documented as of this encounter Care Teams Visitor Use Assistant Relationship Specialty Start Date End Date Damaso Black MD [address] [facility] [address] [place] [address] PCP - General Family Medicine 11/22/22 Swapnil Lopez MD [address] [place] [address] Internal Medicine-Gastroenterology 02/16/22 Darío Rubio MD [address] [facility] [address] [place], [facility] Internal Medicine-Medical Oncology 12/11/23 Mya Naranjo MD [address] [place] [address] Family Medicine - Hospice And Palliative Medicine 01/04/24 Ashley Ordonez, SPRING SALVAGE WORKER [address] [place] [address] Nurse Practitioner 01/04/24 Nicole Melendez, RN Registered Nurse 01/04/24 Aislinn Viera, RN Registered Nurse 02/07/24 Ronit Conner, RN Registered Nurse 04/10/24 Armando Vieira MSW Event Set Up Specialist 04/10/24 Vicki Amato, RN Registered Nurse 04/10/24 Trinh Bullock, SPRING SALVAGE WORKER [address] [place] [address] Nurse Practitioner Nurse Practitioner-Family 04/10/24 Selina Olsen, YON [address] [place] [address] Nurse Practitioner 04/10/24 Veda Mcfarland, Clerical Staff 05/14/24 documented as of this encounter
--- OUTSIDE RECORDS SUMMARY | 2024-08-15 13:46 | XMS_ITS | Encounter Summary ---
Author Organization [place] [address] Care Team Providers Care Vp Research Name Role Phone Swapnil Lopez MD Unavailable [phone] Damaso Black MD Primary Care Provider [phone] Darío Rbuio MD Unavailable [phone] Mya Naranjo MD Unavailable [phone] Ashley Ordonez AUTOMATIC OUTSOLE CUTTER Unavailable [phone] Nicole Melendez RN Unavailable Unavailable Aislinn Viera RN Unavailable Unavailable Ronit Conner RN Unavailable Unavailable Armando Vieira WOOD TYPE CUTTER Unavailable Unavailable Vicki Amato RN Unavailable UnavailTrinh Soto AUTOMATIC OUTSOLE CUTTER Unavailable +[phone] Selina Olsen AUTOMATIC OUTSOLE CUTTER Unavailable +[phone] Veda Mcfarland Clerical Staff Unavailable U navailable Reason for Visit * Reason Comments Medication Refill Encounter Details Date Type Department Care Team (Late st Contact Info) Description 07/16/2024 Refill [facility] [place] [address] Darío Rubio MD [address] [place], [place] [id number] Medication Refill Social History Tobacco Use Types [...] followed by 7 days off 42 Tablet 07/18/2024 12:23 PM EDT 07/16/2024 documented in this encounter Miscellaneous Notes * Telephone Encounter - Marshall Hawkins RN - 07/16/2024 10:49 AM EDT Received refill request for Kisqali for pt. Reviewed chart; pt will call office once scan scheduled. Last RX was sent on 06/20/24 with 0 refills, so refill is appropriate. Last office note on 07/03/24 states: Continue AI + kisqali 400 mg daily (days 1-14, off 7 days after). Escript for Kisqali sentto pt's pharmacy. documented in this encounter Plan of Treatment Upcoming Encounters Date Type Department Care Team (Late st Contact Info) Description 09/11/2024 1:45 PM EST Office Visit [facility] [address] [facility] [place] [address] Swapnil Lopez MD [address] [place] [address] 10/21/2024 2:00 PM EST Appointment [facility] MRI [address] [place] [address] Jacky Shirley MD [address] [place] [address] [place] [address] 10/23/2024 1:45 PM EST Appointment [facility] [place] [address] Olena Darby APRN [address] [place] [address] [place] [address] documented as of this encounter [...] days followed by 7 days off Reorder 06/20/2024 07/16/2024 documented as of this encounter Additional Health Concerns Assessment Noted Time PHQ-9 Depression Total Score: 13 024 1:47 PM EDT PHQ-2 Depression Total Score: 3 12/29/19 24 1:47 PM EDT documented as of this encounter Care Teams Vp Research Relationship Specialty Start Date End Date Damaso Black MD [address] [facility] [address] [facility], [place] [id number] PCP - General Family Medicine 11/22/22 Swapnil Lopez MD [address] [place] [address] Internal Medicine-Gastroenterology 02/16/22 Darío Rubio MD [address] [facility] [place] [address] Internal Medicine-Medical Oncology 12/11/23 Mya Naranjo MD 1 [facility] [place] [address] Family Medicine - Hospice And Palliative Medicine 01/04/24 Ashley Ordonez APRN 1 [facility] [place] [address] Nurse Practitioner 01/04/24 Nicole Melendez, RN Registered Nurse 01/04/24 Aislinn Viera, RN Registered Nurse 02/07/24 Ronit Conner, RN Registered Nurse 04/10/24 Armando Vieira MSW Softlines Supervisor 04/10/24 Vicki Amato, RN Registered Nurse 04/10/24 Trinh Bullock APRN [address] [facility] [place] [address] Nurse Practitioner Nurse Practitioner-Family 04/10/24 Selina Olsen APRN [address] [facility] [place] [address] Nurse Practitioner 04/10/24 Veda Mcfarland, Clerical Staff 05/14/24 documented as of this encounter
--- OUTSIDE RECORDS SUMMARY | 2024-08-15 13:46 | XMS_ITS | Encounter Summary ---
Author Organization [place] [address] Care Team Providers Care Mononitrotoluene Operator Name Role Phone Swapnil Lopez MD Unavailable [phone] Damaso Black MD Primary Care Provider [phone] Darío Rubio MD Unavailable [phone] Mya Naranjo MD Unavailable [phone] Ashley Ordonez ENDOSCOPY NURSE Unavailable [phone] Nicole Melendez RN Unavailable Unavailable Aislinn Viera RN Unavailable Unavailable Ronit Conner RN Unavailable Unavailable Armando Vieira PROCESS TECH Unavailable Unavailable Vicki Amato RN Unavailable UnavailTrinh Soto ENDOSCOPY NURSE Unavailable +[phone] Selina Olsen ENDOSCOPY NURSE Unavailable +[phone] Veda Mcfarland Clerical Staff Unavailable U navailable Reason for Visit * Reason Comments Follow-up Breast Cancer Invasive ductal carc inoma of breast, left Encounter Details Date Type Department Care Team (Latest Contact Info) Description 07/03/2024 2:56 PM EDT - 07/03/2024 11:59 PM EDT Hospital Encounter [place] [address] Heather Quiroz MD [address] [place] [address] Darío Rubio MD [address] [facility] [address] [place] [address] Invasive ductal carcinoma of left breast, stage 4 (HCC) (Primary Dx); Encounter for chemotherapy management; Use of anastrozole Discharge Disposition: Home or Self Care Social [...] by oral route for 7 days. 06/05/2024 ondansetron (ZOFRAN) 4 mg Oral Tablet Take 4 mg by mouth. 04/25/2022 triamcinolone (KENALOG) 0.1 % Top CreamIndications :Skin rash Apply topically 3 times daily. 80 g 02/07/2024 documented as of this encounter Discharge Disposition Disposition Code Departure Means Destination Home or Self Care documented in this encounter Progress Notes * Darío Rubio MD - 07/03/2024 3:00 PM EDT Images from the original note were not included. Patient presented today for routine care follow-up through a video visit. Patient has reviewed the terms and conditions of service as part of the registration for today's visit. A video visit does not replace a ngaw-fy-[id number] exam and further services may be necessary. We are conducting her video visit in a private space and this video visit is being conducted in accordance with [facility] telehealth/video visit regulations. ONCOLOGY FOLLOW-UP: Primary Oncologist: [...] panel testing results were negative. CURRENT TREATMENT: Kisqali Arimidex INTERVAL HISTORY: Ms. Sy is a 63 y.o. female who is here for follow up. Patient states that since last visit nodiarrhea no rashes. Appetite is good. Energy level well. Tramadol helps. Reviewed past medical, surgical, family, and social [...] No easy bruising; no anemia. PHYSICAL EXAM: There were no vitals filed for this visit. Wt Readings from Last 3 Encounters: 06/07/24 129 lb 1.6 oz (58.6 kg) 04/19/24 127 lb (57.6 kg) 04/19/24 128 lb 6.4 oz (58.2 kg) LABS: CBC: Lab Results Component Value Date/Time [...] 105 (H) 06/07/2024 BUN 17 06/07/2024 CREATININE 0.98 06/07/2024 ALBUMIN 3.9 06/07/2024 PROT 6.6 06/07/2024 LABBILI 0.4 06/07/2024 ALT 9 06/07/2024 AST 14 06/07/2024 GFRAFRAM 77 04/13/2021 GFRNONAFRAM 67 04/13/2021 IMAGING: All relevant images were reviewed in detail with the patient. All questions were addressed and answered in great detail. DX BONE DENSITY AXIAL SKELETON Result Date: 06/07/2024 Indication: The patient is a post-menopausal female under age 65 with clinical risk factors for an osteoporotic fracture that requires a bone density assessment. Study was performed on Always Prepped APEX 5. Bone Density: Region BMD Y-kgkygS-eqvko AP Spine (L1-L4) 0.856 -1.7 -0.1 Femoral Neck (Left) 0.731 -1.1 0.3 Total Hip (Left) 0.776 -1.4 -0.3 Femoral Neck (Right) 0.791 -0.5 0.9 Total Hip (Right) 0.836 -0.9 0.2 1/3 Radius (Right) 0.494 -3.3 -1.8 World Health Organization criteria for BMD interpretation classify patients as: Normal (T-score at or above -1.0), Low Bone Density (T-score between -1.0 and -2.5), or Osteoporotic (T-score at or below -2.5). T Scores are reported in Postmenopausal womenand in men age 50 and older. Z-scores [...] Trujillo PA-C, CCD on 06/07/2024 12:58:00 PM. ASSESSMENT AND PLAN: Patient is a 63 y.o. 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 Stage IV Invasive Ductal Carcinoma of Left Breast (T2N3M1, ER+, WI+, HER2-) Patient coming from [facility]. Patient reports feeling an enlarging breast lump. She is post-menopausal and has had a hysterectomy and no FMH of cancer. Left breast mass and left axilla biopsied and revealing invasive ductal carcinoma, grade 2, some DCIS as well. ER 96%, WI 73%, HER2 2+, FISH negative, lymph node [...] for faslodex monthly monotherapy if still in alf. Discussed side effects of faslodex and gave information. If out of alf- would consider faslodex and ribociclib vs AI + CDK4/6. Out of alf mid December [address] Rubio discussed we could do CDK4/6 inhibitor ribociclib (kisqali) + anastrazole (AI). Had started on AI prior. Discussed side effects of neutropenia, EKG/arrhythmiaabnormalities, peripheral edema, alopecia, rash, electrolyte abnormalities, n/v/d, abdominal pain, other cytopenias, liver and kidney abnormalities, infection, fatigue, dizziness, headaches, arthralgias, osteoporosis long lines operator, fever, hot flashes, mood swings and other side effects that will be discussed in teach session with RN. To take days 1-21 and have 7 days off. Baseline Qtc 395 on 12/19/23 with sinus bradycardia and non-specific T- wave inversion- no known coronary disease she knows [...] 403 in 03/2024. DEXA 2023 showing osteoporosis. -Continue AI + kisqali 400 mg daily (days 1-14, off 7 days after) -CBC and CMP, no clinically significant abnormal labs -GI manages lomotil for crohn's related diarrhea, follows with Dr Lopez -Endorses compliancy Ca/VitD and doing weight bearing exercise -re-discussed possible bone modifying agents that could be options, pt adamantly declines therapeutic options that involve traveling center. -Next CT CAP with IV contrast due 07/2024, order today -Patient lives near [place] so requesting afternoon apts Follow up 3 weeks, CT scan on same day, visit later in day Labs monthly A total of 32 minutes of the encounter was spent in performing the following complex tasks: 1) Reviewing medical records in [facility] and if applicable outside records as well [...] PM EST Office Visit [facility] [address] [place] [facility] [place] [address] Swapnil Lopez MD [address] [place] [address] 10/21/2024 2:00 PM EST Appointment [facility] MRI [address] [place] [address] Jacky Shirley MD [address] [place] [address] [place] [address] 10/23/2024 1:45 PM EST Appointment [facility] [place] [address] Olena Darby APRN [address] [facility] [place], [place] [id number] documented as of this encounter Goals Goal [...] of left breast, stage 4 (HCC)- Primary Encounter for chemotherapy management Use of anastrozole Use of aromatase inhibitors documented in this encounter Additional Health Concerns Assessment Noted Time PHQ-9 Depression Total Score: 13 024 1:47 PM EDT PHQ-2 Depression Total Score: 3 12/29/19 24 1:47 PM EDT documented as of this encounter Care Teams Mononitrotoluene Operator Relationship Specialty Start Date End Date Damaso Black MD 100[address] [facility] [address] [place] [address] PCP - General Family Medicine 11/22/22 Swapnil Lopez MD [address] [place] [address] Internal Medicine-Gastroenterology 02/16/22 Darío Rubio MD [address] [facility] [place] [address] Internal Medicine-Medical Oncology 12/11/23 Mya Naranjo MD [address] [place] [address] [place] [address] Family Medicine - Hospice And Palliative Medicine 01/04/24 Ashley Ordonez, YON [address] [facility] [place] [address] Nurse Practitioner 01/04/24 Nicole Melendez, RN Registered Nurse 01/04/24 Aislinn Viera, RN Registered Nurse 02/07/24 Ronit Conner, RN Registered Nurse 04/10/24 Armando Vieira MSW Generator Switchboard Operator 04/10/24 Vicki Amato, RN Registered Nurse 04/10/24 Trinh Bullock, YON [address] [facility] [place] [address] Nurse Practitioner Nurse Practitioner-Family 04/10/24 Selina Olsen APRN [address] [facility] [place] [address] Nurse Practitioner 04/10/24 Veda Mcfarland, Clerical Staff 05/14/24 documented as of this encounter
--- OUTSIDE RECORDS SUMMARY | 2024-08-15 13:47 | XMS_ITS | Encounter Summary ---
Author Organization [place] [address] Care Team Providers Care Heading Saw Operator Name Role Phone Swapnil Lopez MD Unavailable [phone] Damaso Black MD Primary Care Provider [phone] Darío Rubio MD Unavailable [phone] Mya Naranjo MD Unavailable [phone] Ashley Ordonez NOVELTY WORKER Unavailable [phone] Nicole Melendez RN Unavailable Unavailable Aislinn Viera RN Unavailable Unavailable Ronit Conner RN Unavailable Unavailable Armando Vieira LICENSING SERVICES CLERK Unavailable Unavailable Vicki Amato RN Unavailable UnavailTrinh Soto NOVELTY WORKER Unavailable [phone] Selina Olsen NOVELTY WORKER Unavailable [phone] Veda Mcfarland Clerical Staff Unavailable U navailable Reason for Visit * Reason Comments Pharmacy Oncology Management Ribociclib Encounter Details Date Type Department Care Team (Latest Contact Info) Description 06/20/2024 Specialty Pharmacy [facility] [address] [place] [address] Shruthi Caruso CPhT Pharmacy Oncology Management (Ribociclib) Social History [...] AM Gabby De La Garza RMGena documented in this encounter Progress Notes * Shruthi Caruso CPhT - 06/20/2024 9:23 AM EDT [facility] Refill Request Prescription for Ribociclib is out of refills. Will send a request to the provider and contact patient to coordinate refill once response is received. * Eliazar Khoury RPH - 06/20/2024 9:23 AM EDT [facility] Prescription received for Ribociclib (400mg). Prescription does not require a prior authorization. Patient copay is $0. IA has been completed, will contact patient to coordinate fill. * Shruthi Caruso CPhT - 06/20/2024 9:23 AM EDT Specialty Pharmacy Refill Coordination Note Contacted Marleni boateng regarding refills of Ribociclib. Medication to be delivered by [employer] on 06/25. Copay amount: $0.00 Spoke with patient. Patient informed of copay. * Radha Trejo RPH - 06/20/2024 9:23 AM EDT [facility] - Care Plan and Refill Review Refill questions and refill history verified. Last assessment 04/16/24. No reassessment needed at this time. Radha Trejo [facility] Specialty Pharmacist * Fred Mccurdy RPH - 06/20/2024 9:23 AM EDT [facility] - Care Plan and Refill Review Refill questions and refill history verified. Last assessment 04/16/24. No reassessment needed at this time. Fred Mccurdy [facility] Specialty Pharmacist * Shruthi Veras CPhT - 06/20/2024 9:23 AM EDT [facility] Patient stated via message to provider's office that she has lost her Kisqali. Patient is currentlyout of medication. [facility] Refill Request Prescription for Ribociclib is out of refills. Will send a request to the provider and contact patient to coordinate refill once response is received. * Shruthi Veras CPhT - 06/20/2024 9:23 AM EDT [facility] Calling [email or web address] at [phone] for claim override. Rep was able to provide override. Copay is $0. Specialty Pharmacy Refill Coordination Note Contacted Marleni Way today regarding refills of Ribociclib. Copay amount: $0 Sent [employer] message. Patient informed of copay. * Shruthi Veras CPhT - 06/20/2024 9:23 AM EDT Specialty Pharmacy Refill Coordination Note Contacted Marleni Way today regarding refills of Ribociclib. Medication to be delivered by [employer] on 07/29. Copay amount: $0 Spoke with patient. Patient informed of copay. * Radha Trejo RPH - 06/20/2024 9:23 AM EDT [facility] - Care Plan and Refill Review Refill questions and refill history verified. Last assessment 04/16/24. No reassessment needed at this time. Radha Trejo RPH Specialty Pharmacist documented in this encounter Plan of Treatment Upcoming Encounters Date Type Department Care Team (Late st Contact Info) Description 09/11/2024 1:45 PM EST Office Visit [facility] [address] [place] [place] [address] Swapnil Lopez MD [address] [facility] [place] [address] 10/21/2024 2:00 PM EST Appointment [facility] MRI [address] [address] Jacky Shirley MD [address] [place] [address] [place] [address] 10/23/2024 1:45 PM EST Appointment [facility] [place], [place] [id number] Olena Darby APRN 1 [facility] [place] [place], [place] [id number] documented as of this encounter Goals Goal [...] documented as of this encounter Care Teams Heading Saw Operator Relationship Specialty Start Date End Date Damaso Black MD [address] [facility] [address] [place] [address] PCP - General Family Medicine 11/22/22 Swapnil Lopez MD [address] [place] [address] Internal Medicine-Gastroenterology 02/16/22 Darío Rubio MD [address] [place] [address] [place] [address] Internal Medicine-Medical Oncology 12/11/23 Mya Naranjo MD [address] [facility] [place] [address] Family Medicine - Hospice And Palliative Medicine 01/04/24 Ashley Ordonez APRN [address] [facility] [place] [address] Nurse Practitioner 01/04/24 Nicole Melendez, RN Registered Nurse 01/04/24 Aislinn Viera, RN Registered Nurse 02/07/24 Ronit Conner, RN Registered Nurse 04/10/24 Armando Vieira MSW Subsystems Engineer 04/10/24 Vicki Amato, RN Registered Nurse 04/10/24 Trinh Bullock APRN [address] [facility] [place] [address] Nurse Practitioner Nurse Practitioner-Family 04/10/24 Selina Olsen APRN [address] [facility] [place] [address] Nurse Practitioner 04/10/24 Veda Mcfarland, Clerical Staff 05/14/24 documented as of this encounter
--- OUTSIDE RECORDS SUMMARY | 2024-08-15 13:47 | XMS_ITS | Encounter Summary ---
Author Organization [place] [address] Care Team Providers Care Acid Maker Name Role Phone Swapnil Lopez MD Unavailable Damaso Black MD Primary Care Provider [phone] Darío Rubio MD Unavailable [phone] Mya Naranjo MD Unavailable [phone] Ashley Ordonez BENCH MACHINE OPERATOR Unavailable [phone] Nicole Melendez RN Unavailable Unavailable Aislinn Viera RN Unavailable Unavailable Ronit Conner RN Unavailable Unavailable Armando Vieira DIVER HELPER Unavailable Unavailable Vicki Amato RN Unavailable UnavailTrinh Soto BENCH MACHINE OPERATOR Unavailable [phone] Selina Olsen BENCH MACHINE OPERATOR Unavailable [phone] Veda Mcfarland Clerical Staff Unavailable U navailable Reason for Visit * Reason Onset Date Comments Schedule Appointment 05/27/2024 F/U Encounter Details Date Type Department Care Team (Late st Contact Info) Description 05/27/2024 Telephone [place] [address] Darío Rubio MD [address] [place] [address] Schedule Appointment (F/U) Social History Tobacco Use Types Packs/Day Years [...] Telephone Encounter - Aislinn Viera RN - 05/27/2024 8:[address] on [place]'s schedule 06/07 at 1:45. documented in this encounter Plan of Treatment Upcoming Encounters Date Type Department Care Team (Late st Contact Info) Description 09/11/2024 1:45 PM EST Office Visit [facility] [address] [place] [address] Swapnil Lopez MD [address] [place] [address] 10/21/2024 2:00 PM EST Appointment [facility] MRI [address] [address] Jacky Shirley MD 1 [facility] [place], [place] [phone] 10/23/2024 1:45 PM EST Appointment [facility] [place] [address] Olena Darby APRN [address] [place] [address] [place], [place] [id number] documented as of this encounter Goals Goal [...] documented as of this encounter Care Teams Acid Maker Relationship Specialty Start Date End Date Damaso Black MD [address] [place] [address] PCP - General Family Medicine 11/22/22 Swapnil Lopez MD [address] [place] [address] Internal Medicine-Gastroenterology 02/16/22 Darío Rubio MD [address] [place] [address] Internal Medicine-Medical Oncology 12/11/23 Mya Naranjo MD [address] [place] [address] Family Medicine - Hospice And Palliative Medicine 01/04/24 Ashley Ordonez, BENCH MACHINE OPERATOR [address] [place] [address] Nurse Practitioner 01/04/24 Nicole Melendez, RN Registered Nurse 01/04/24 Aislinn Viera, RN Registered Nurse 02/07/24 Ronit Conner, RN Registered Nurse 04/10/24 Armando Vieira, ITA Project Superintendent 04/10/24 Vicki Amato, RN Registered Nurse 04/10/24 Trinh Bullock, BENCH MACHINE OPERATOR [address] [place] [address] Nurse Practitioner Nurse Practitioner-Family 04/10/24 Selina Olsen, YON [address] [place] [address] Nurse Practitioner 04/10/24 Veda Mcfarland, Clerical Staff 05/14/24 documented as of this encounter
--- OUTSIDE RECORDS SUMMARY | 2024-08-15 13:47 | XMS_ITS | Encounter Summary ---
Author Organization [place] [place] [address] Care Team Providers Care Churn Operator Margarine Name Role Phone Swapnil Lopez MD Unavailable [phone] Damaso Black MD Primary Care Provider [phone] Darío Rubio MD Unavailable [phone] Mya Naranjo MD Unavailable [phone] Ashley Ordonez MOLD WORKER Unavailable [phone] Nicole Melendez RN Unavailable Unavailable Aislinn Viera RN Unavailable Unavailable Ronit Conner RN Unavailable Unavailable Armando Vieira WOOD CAR BUILDER Unavailable Unavailable Vicki Amato RN Unavailable UnavailTrinh Soto MOLD WORKER Unavailable [phone] Selina Olsen MOLD WORKER Unavailable [phone] Veda Mcfarland Clerical Staff Unavailable U navailable Reason for Visit * Reason Onset Date Comments Medication Refill 05/21/2024 Encounter Details Date Type Department Care Team (Late st Contact Info) Description 05/21/2024 Refill [facility] [place] [address] Darío Rubio MD [address] [place] [address] Medication Refill Social History Tobacco Use [...] by mouth every 3 hours. 200 Capsule 05/22/2024 documented in this encounter Miscellaneous Notes * Telephone Encounter - Aislinn Viera RN - 05/22/2024 8:28 AM EDT Received refill request for loperamide for pt. Reviewed chart; pt needs f/u appointment. Last RX was sent on 01/24/2024 with 0 refills, so refill is appropriate. Last office note on 05/01/2024. Escriptfor loperamide sent to pt's pharmacy. documented in this encounter Plan of Treatment Upcoming Encounters Date Type Department Care Team (Late st Contact Info) Description 09/11/2024 1:45 PM EST Office Visit [facility] [address] [facility], [place] [phone] Swapnil Lopez MD [address] [place] [phone] 10/21/2024 2:00 PM EST Appointment [facility] MRI [address] [place] [address] Jacky Shirley MD [address] [place] [address] [place], [place] [phone] 10/23/2024 1:45 PM EST Appointment [facility] [address] [place], [place] [phone] Olena Darby APRN [address] [place] [phone] documented as of this encounter Goals Goal [...] Diarrhea, unspecified type documented in this encounter Additional Health Concerns Assessment Noted Time PHQ-9 Depression Total Score: 13 024 1:47 PM EDT PHQ-2 Depression Total Score: 3 12/29/19 24 1:47 PM EDT documented as of this encounter Care Teams Churn Operator Margarine Relationship Specialty Start Date End Date Wayne, Damaso, MD 1005 [facility] [address] [place] [address] PCP - General Family Medicine 11/22/22 Swapnil Lopez MD [address] [place] [phone] Internal Medicine-Gastroenterology 02/16/22 Darío Rubio MD [address] [place] [address] [place] [address] Internal Medicine-Medical Oncology 12/11/23 Mya Naranjo MD [address] [place] [address] [place] [address] Family Medicine - Hospice And Palliative Medicine 01/04/24 Ashley Ordonez APRN [address] [place] [address] [place] [address] Nurse Practitioner 01/04/24 Nicole Melendez, RN Registered Nurse 01/04/24 Aislinn Viera, RN Registered Nurse 02/07/24 Ronit Conner, RN Registered Nurse 04/10/24 Armando Vieira MSW Manager Of Corporate 04/10/24 Vicki Amato, RN Registered Nurse 04/10/24 Trinh Bullock, YON [address] [facility] [place] [address] Nurse Practitioner Nurse Practitioner-Family 04/10/24 Selina Olsen, YON [address] [place] [address] [place] [address] Nurse Practitioner 04/10/24 Veda Mcfarland, Clerical Staff 05/14/24 documented as of this encounter
--- OUTSIDE RECORDS SUMMARY | 2024-08-15 13:47 | XMS_ITS | Encounter Summary ---
Author Organization [place] [address] Care Team Providers Care Typewriter Operator Automatic Name Role Phone Swapnil Lopez MD Unavailable [phone] Damaso Black MD Primary Care Provider [phone] Darío Rubio MD Unavailable [phone] Mya Naranjo MD Unavailable [phone] Ashley Ordonez MASTER COASTAL WATERS Unavailable [phone] Nicole Melendez RN Unavailable Unavailable Aislinn Viera RN Unavailable Unavailable Ronit Conner RN Unavailable Unavailable Armando Vieira DRAFTER (CAD) ELECTRICAL Unavailable Unavailable Vicki Amato RN Unavailable UnavailTrinh Soto MASTER COASTAL WATERS Unavailable [phone] Selina Olsen MASTER COASTAL WATERS Unavailable [phone] Veda Mcfarland Clerical Staff Unavailable U navailable Encounter Details Date Type Department Care Team (Latest Contact Info) Description 06/07/2024 1:27 PM EDT - 06/07/2024 1:32 PM EDT Hospital Encounter [place] [address] Heather Quiroz MD [address] [place] [address] Palliative care by specialist; Cancer related pain; Invasive ductal carcinoma of breast, left (HCC); Secondary malignant neoplasm of bone (HCC); Encounter for medication monitoring Discharge Disposition: Home or Self Care Social [...] PM EST Office Visit [facility] [address] [facility], [place] [phone] Swapnil Lopez MD [address] [place] [address] 10/21/2024 2:00 PM EST Appointment [facility] MRI [address] [facility] [place] [address] Jacky Shirley MD [address] [place] [id number] 10/23/2024 1:45 PM EST Appointment [facility] [address] [place], [place] [phone] Olena Darby APRN [address] [place] [phone] documented as of this encounter Goals Goal [...] G, RMA documented as of this encounter Procedures Procedure Name Priority Date/Time Associated Diagnosis Comments CBC WITH DIFF STAT 06/07/2024 1:32 PM EDT Invasive ductal carcinoma of breast, left (HCC) Encounter for medication monitoring COMPREHENSIVE METABOLIC PANEL STAT 06/07/2024 1:32 PM EDT Invasive ductal carcinoma of breast, left (HCC) Encounter for medication monitoring documented in this encounter Results * (ABNORMAL) COMPREHENSIVE METABOLIC PANEL (06/07/2024 1:32 PM EDT) Sodium 136 136 - 145 mmol/L 06/07/2024 1:56 PM EDT [facility] Potassium 4.5 3.5 - 5.0 mmol/L 06/07/2024 1:56 PM EDT [facility] Chloride 102 98 - 107 mmol/L 06/07/2024 1:56 PM EDT [facility] Total CO2 25 22 - 29 mmol/L 06/07/2024 1:56 PM EDT [facility] Anion Gap 9 7 - 16 mmol/L 06/07/2024 1:56 PM EDT [facility] Calcium 9.1 8.8 - 10.4 mg/dL 06/07/2024 1:56 PM EDT [facility] Glucose Lvl 105(H) 70 - 99 mg/dL 06/07/2024 1:56 PM EDT [facility] BUN 17 8 - 23 mg/dL 06/07/2024 1:56 PM EDT [facility] Creatinine 0.98 0.51 - 1.30 mg/dL 06/07/2024 1:56 PM EDT [facility] Albumin 3.9 3.2 - 4.6 gm/dL 06/07/2024 1:56 PM EDT [facility] Total Protein 6.6 6.4 - 8.3 gm/dL 06/07/2024 1:56 PM EDT [facility] Bili Total 0.4 0.2 - 1.3 mg/dL 06/07/2024 1:56 PM EDT [facility] ALT 9 <=41 U/L 06/07/2024 1:56 PM EDT [facility] AST 14 <=40 U/L 06/07/2024 1:56 PM EDT [facility] Alk Phos 84 36 - 123 U/L 06/07/2024 [facility] eGFR (CKD-EPIcr 2020) 65 >=60 mL/min/1.7 3 m2 06/07/2024 1:56 PM EDT [facility] Comment:Estimated GFR was ca lculated using the CKD-EPIcr (2020) equation refit without race. The equation is recommended by the National Kidney Foundation - [place] [employer] of Nephrology Task Force. Blood VENOUS BLOOD / Unknown Venipuncture / Unknown 06/07/2024 1:32 PM EDT 06/07/2024 1:32 PM EDT us Darío Rubio MD CHEMISTRY ORDERABLES Final Res ult [facility] [address] [id number] * (ABNORMAL) CBC WITH DIFF (06/07/2024 1:32 PM EDT) WBC 7.1 3.7 - 10.3 x10(3)/mcL 06/07/2024 1:40 PM EDT [facility] RBC 4.14 3.90 - 5.20 x10(6)/mcL 06/07/2024 1:40 PM EDT [facility] Hgb 12.8 11.2 - 15.7 g/dL 06/07/2024 1:40 PM EDT [facility] Hct 38.5 34.0 - 45.0 % 06/07/2024 1:40 PM EDT [facility] MCV 93.0 80.0 - 100.0 fL 06/07/2024 1:40 PM EDT [facility] MCH 30.9 26.0 - 34.0 pg 06/07/2024 1:40 PM EDT [facility] MCHC 33.2 30.7 - 35.5 g/dL 06/07/2024 1:40 PM EDT [facility] RDW 14.3 <=14.9 % 06/07/2024 1:40 PM EDT [facility] Platelet 357 155 - 369 x10(3)/mcL 06/07/2024 1:40 PM EDT [facility] MPV 8.5(L) 8.8 - 12.5 fL 06/07/2024 1:40 PM EDT [facility] Neut # Prelim 4.9 1.6 - 6.1 x10(3)/[facility] 06/07/2024 1:40 PM EDT [facility] Comment:Preliminary automate d absolute neutrophil count. Value may change if manual differential is indicated. Neut Percent 69.1 % 06/07/2024 1:40 PM EDT [facility] Comment:Neutrophils equals s egs plus bands Imm Gran% 0.3 % 06/07/2024 1:40 PM EDT [facility] Comment:Automated count of m etamyelocytes, myelocytes and promyelocytes. Lymph Percent 21.3 % 06/07/2024 1:40 PM EDT [facility] Fannin Percent 8.5 % 06/07/2024 1:40 PM EDT [facility] Eos Percent 0.7 % 06/07/2024 1:40 PM EDT [facility] Baso Percent 0.1 % 06/07/2024 1:40 PM EDT [facility] Neut # 4.9 1.6 - 6.1 x10(3)/[facility] 06/07/2024 1:40 PM EDT [facility] Comment:Neutrophils equals s egs plus bands IMMGRAN# 0.0 0.0 - 0.1 x10(3)/[facility] 06/07/2024 1:40 PM EDT [facility] Comment:Automated count of m etamyelocytes, myelocytes and promyelocytes. An absolute IG <0.1 is reported as 0.0. Lymph # 1.5 1.2 - 3.9 x10(3)/[facility] 06/07/2024 1:40 PM EDT [facility] Fannin # 0.6 0.3 - 0.9 x10(3)/[facility] 06/07/2024 1:40 PM EDT [facility] Eos# 0.1 0.0 - 0.5 x10(3)/[facility] 06/07/2024 1:40 PM EDT [facility] Baso # 0.0 0.0 - 0.1 x10(3)/[facility] 06/07/2024 1:40 PM EDT [facility] Blood VENOUS BLOOD / Unknown Venipuncture / Unknown 06/07/2024 1:32 PM EDT 06/07/2024 1:32 PM EDT us Darío Rubio MD HEMATOLOGY ORDERABLES Final Re sult [facility] [address] [id number] documented in this encounter Visit Diagnoses Diagnosis Palliative care by specialist Cancer related pain Neoplasm related pain (acute) (chronic) Invasive ductal carcinoma of breast, 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 Encounter for medication monitoring Encounter for therapeutic drug monitoring documented in this encounter Additional Health Concerns Assessment Noted Time PHQ-9 Depression Total Score: 13 024 1:47 PM EDT PHQ-2 Depression Total Score: 3 12/29/19 24 1:47 PM EDT documented as of this encounter Care Teams Typewriter Operator Automatic Relationship Specialty Start Date End Date Damaso Black MD [address] [address] PCP - General Family Medicine 11/22/22 Swapnil Lopez MD [address] [place] [address] Internal Medicine-Gastroenterology 02/16/22 Darío Rubio MD [address] [place] [address] [place] [address] Internal Medicine-Medical Oncology 12/11/23 Mya Naranjo MD [address] [place] [address] [place] [address] Family Medicine - Hospice And Palliative Medicine 01/04/24 Ashley Ordonez APRN [address] [place] [address] [place] [address] Nurse Practitioner 01/04/24 Nicole Melendez, RN Registered Nurse 01/04/24 Aislinn Viera, RN Registered Nurse 02/07/24 Ronit Conner, RN Registered Nurse 04/10/24 Armando Vieira, ITA Addictions Therapist 04/10/24 Vicki Amato, RN Registered Nurse 04/10/24 Trinh Bullock APRN [address] [facility] [place] [address] Nurse Practitioner Nurse Practitioner-Family 04/10/24 Selina Olsen APRN [address] [facility] [place] [address] Nurse Practitioner 04/10/24 Veda Mcfarland, Clerical Staff 05/14/24 documented as of this encounter
--- OUTSIDE RECORDS SUMMARY | 2024-08-15 13:47 | XMS_ITS | Encounter Summary ---
[facility] Organization [facility] Address [address] [place] [facility] [place] [address] Care Team Providers Care Director Talent Management Name Role Phone Swapnil Lopez MD Unavailable [phone] Damaso Black MD Primary Care Provider [phone] Darío Rubio MD Unavailable [phone] Mya Naranjo MD Unavailable [phone] Ashley Ordonez PERCH MENDER Unavailable [phone] Nicole Melendez RN Unavailable Unavailable Aislinn Viera RN Unavailable Unavailable Ronit Conner RN Unavailable Unavailable Armando Vieira ALUMINUM BOAT ASSEMBLY SUPERVISOR Unavailable Unavailable Vicki Amato RN Unavailable UnavailTrinh Soto PERCH MENDER Unavailable [phone] Selina Olsen PERCH MENDER Unavailable [phone] Reason for Visit * Reason Comments Medication Refill Encounter Details Date Type Department Care Team (Late st Contact Info) Description 04/29/2024 Refill [facility] [address] [place] [address] Selina Olsen APRN [address] [facility] [address] [place] [id number] Medication Refill Social History Tobacco Use Types [...] PM EST Office Visit [facility] [address] [facility] [place] [address] Swapnil Lopez MD [address] [place] [address] 10/21/2024 2:00 PM EST Appointment [facility] [address] [place] [address] Jacky Shirley MD 1 [facility] CANCER CARE [place], [place] [id number] 10/23/2024 1:45 PM EST Appointment [facility] [place], [place] [id number] Olena Darby APRN 1 [facility] [place] [address] documented as of this encounter Goals Goal [...] as of this encounter Care Teams Director Talent Management Relationship Specialty Start Date End Date Damaso Black MD 1005 [facility] 22 [place] [address] PCP - General Family Medicine 11/22/22 Swapnil Lopez MD [address] [place] [address] Internal Medicine-Gastroenterology 02/16/22 Darío Rubio MD [address] [place] [address] [place] [address] Internal Medicine-Medical Oncology 12/11/23 Mya Naranjo MD [address] [place] [address] [place] [address] Family Medicine - Hospice And Palliative Medicine 01/04/24 Ashley Ordonez APRN [address] [facility] [place] [address] Nurse Practitioner 01/04/24 Nicole Melendez, RN Registered Nurse 01/04/24 Aislinn Viera, RN Registered Nurse 02/07/24 Ronit Conner, RN Registered Nurse 04/10/24 Armando Vieira MSW Molder Meat 04/10/24 Vicki Amato, RN Registered Nurse 04/10/24 Trinh Bullock APRN [address] [facility] [place] [address] Nurse Practitioner Nurse Practitioner-Family 04/10/24 Selina Olsen APRN 1 [facility] [place] [address] Nurse Practitioner 04/10/24 documented as of this encounter
--- OUTSIDE RECORDS SUMMARY | 2024-08-15 13:47 | XMS_ITS | Encounter Summary ---
Author Organization [facility] [place] [address] Care Team Providers Care Title Clerk Name Role Phone Swapnil Lopez MD Unavailable [phone] Damaso Black MD Primary Care Provider [phone] Darío Rubio MD Unavailable [phone] Mya Naranjo MD Unavailable [phone] Ashley Ordonez ZINC ETCHER Unavailable [phone] Nicole Melendez RN Unavailable Unavailable Aislinn Viera RN Unavailable Unavailable Ronit Conner RN Unavailable Unavailable Armando Vieira SBA BUSINESS DEVELOPMENT OFFICER Unavailable Unavailable Vicki Amato RN Unavailable UnavailTrinh Soto ZINC ETCHER Unavailable [phone] Selina Olsen ZINC ETCHER Unavailable [phone] Encounter Details Date Type Department Care Team (Latest Contact Info) Description 04/26/2024 Travel Social History Tobacco Use Types Packs/Day [...] of Assessment Author No 09/05/2017 11:13 AM LUCÍA Yolis MercedesSHANNON james * Does this person have difficulty dressing or bathing? Answer Date of Assessment Author No 09/05/2017 11:13 AM Gabby De La Garza RMA * Because of a physical, mental or emotional condition, does this person have difficulty doing errands alone such as visiting a doctor's office or shopping? Answer Date of Assessment Author No 09/05/2017 11:13 AM LUCÍA Gabby Mercedes SHANNON documented as of this encounter Mental [...] PM EST Office Visit [facility] [address] [place] [address] Swapnil Lopez MD [address] [place] [address] 10/21/2024 2:00 PM EST Appointment [facility] MRI [address] [place] [address] Jacky Shirley MD 1 [facility] [place] [address] 10/23/2024 1:45 PM EST Appointment [facility] [place] [address] Olena Darby APRN 1 [facility] [place] [address] documented as of this encounter [...] documented as of this encounter Care Teams Title Clerk Relationship Specialty Start Date End Date Damaso Black MD 1005 [facility] 22 [place], [place] [address] PCP - General Family Medicine 11/22/22 Swapnil Lopez MD [address] [place] [address] Internal Medicine-Gastroenterology 02/16/22 Darío Rubio MD [address] [facility] [place] [address] Internal Medicine-Medical Oncology 12/11/23 Mya Naranjo MD [address] [place] [address] [place] [address] Family Medicine - Hospice And Palliative Medicine 01/04/24 Ashley Ordonez APRN [address] [place] [address] [place] [address] Nurse Practitioner 01/04/24 Nicole Melendez, RN Registered Nurse 01/04/24 Aislinn Viera, RN Registered Nurse 02/07/24 Ronit Conner, RN Registered Nurse 04/10/24 Armando Vieira, ITA Financial Accounting Analyst 04/10/24 Vicki Amato, RN Registered Nurse 04/10/24 Trinh Bullock APRN [address] [facility] [place] [address] Nurse Practitioner Nurse Practitioner-Family 04/10/24 Selina Olsen APRN [address] [facility] [place] [address] Nurse Practitioner 04/10/24 documented as of this encounter
--- OUTSIDE RECORDS SUMMARY | 2024-08-15 13:47 | XMS_ITS | Encounter Summary ---
Author Organization [place] [address] Care Team Providers Care Agricultural Agent Name Role Phone Swapnil Lopez MD Unavailable [phone] Damaso Black MD Primary Care Provider [phone] Darío Rubio MD Unavailable [phone] Mya Naranjo MD Unavailable [phone] Ashley Ordonez SPAGHETTI MACHINE OPERATOR Unavailable [phone] Nicole Melendez RN Unavailable Unavailable Aislinn Viera RN Unavailable Unavailable Ronit Conner RN Unavailable Unavailable Armando Vieira ICER MACHINE OPERATOR Unavailable Unavailable Vicki Amato RN Unavailable UnavailTrinh Soto SPAGHETTI MACHINE OPERATOR Unavailable [phone] Selina Olsen SPAGHETTI MACHINE OPERATOR Unavailable [phone] Reason for Visit * Reason Comments Medication Refill Encounter Details Date Type Department Care Team (Late st Contact Info) Description 04/23/2024 [facility]ill [facility] [place] [address] Darío Rubio MD [address] [place] [address] Medication Refill Social History Tobacco Use [...] of Assessment Author No 09/05/2017 11:13 AM Gabyb De La Garza RMA * Is the [...] followed by 7 days off 42 Tablet 04/29/2024 9:09 AM EDT 04/23/2024 documented in this encounter Miscellaneous Notes * Telephone Encounter - Aislinn Viera RN - 04/23/2024 10:58 AM EDT Received refill request for kisqali for pt. Reviewed chart; pt has f/u appt on 05/01/2024. Last RX was sent on 03/26/2024 with 0 refills, so refill is appropriate. Last office note on 04/15/2024 states: Continues tolerating DR Parry. Escript for antonella sent to pt's pharmacy. documented in this encounter Plan of Treatment Upcoming Encounters Date Type Department Care Team (Late st Contact Info) Description 09/11/2024 1:45 PM EST Office Visit [facility] [address] [place] [facility] [address] Swapnil Lopez MD [address] [place] [address] 10/21/2024 2:00 PM EST Appointment [facility] MRI [address] [place] [address] Jacky Shirley MD [address] [place] [address] CAN[place]ER [place], [place] [id number] 10/23/2024 1:45 PM EST Appointment [facility] [place] [address] Olena Darby APRN [address] [place] [address] [place], [place] [id number] documented as of this encounter Goals Goal [...] Reason Start Date End Da te ribociclib (JORISQALI) 400 mg/day (200 mg x 2) Oral TabletIndications:Invas jeannine ductal carcinoma of breast, left (HCC) Take 2 tablets by mouth daily for 21 days followed by 7 days off Reorder 03/26/2024 04/23/2024 documented as of this encounter Additional Health Concerns Assessment Noted Time PHQ-9 Depression Total Score: 13 024 1:47 PM EDT PHQ-2 Depression Total Score: 3 12/29/19 24 1:47 PM EDT documented as of this encounter Care Teams Agricultural Agent Relationship Specialty Start Date End Date Damaso Black MD 1005 [facility] [address] [place] [address] PCP - General Family Medicine 11/22/22 Swapnil Lopez MD [address] [place] [address] Internal Medicine-Gastroenterology 02/16/22 Darío Rubio MD [address] [place] [address] Internal Medicine-Medical Oncology 12/11/23 Mya Naranjo MD [address] [place] [address] Family Medicine - Hospice And Palliative Medicine 01/04/24 Ashley Ordonez APRN [address] [place] [address] Nurse Practitioner 01/04/24 Nicole Melendez, RN Registered Nurse 01/04/24 Aislinn Viera, RN Registered Nurse 02/07/24 Ronit Conner, ANGE Registered Nurse 04/10/24 Armando Vieira MSW On Site Manager 04/10/24 Vicki Amato, RN Registered Nurse 04/10/24 Trinh Bullock APRN [address] [facility] [place] [address] Nurse Practitioner Nurse Practitioner-Family 04/10/24 Selina Olsen APRN [address] [facility] [place] [address] Nurse Practitioner 04/10/24 documented as of this encounter
--- OUTSIDE RECORDS SUMMARY | 2024-08-15 13:47 | XMS_ITS | Encounter Summary ---
Author Organization [place] [address] Care Team Providers Care Cake Puller Name Role Phone Swapnil Lopez MD Unavailable [phone] Damaso Black MD Primary Care Provider [phone] Darío Rubio MD Unavailable [phone] Mya Naranjo MD Unavailable [phone] Ashley Ordonez DONOR RELATIONS ASSOCIATE Unavailable [phone] Nicole Melendez RN Unavailable Unavailable Aislinn Viera RN Unavailable Unavailable Ronit Conner RN Unavailable Unavailable Armando Vieira SUPERVISOR ROLLER PRINTING Unavailable Unavailable Vicki Amato RN Unavailable UnavailTrinh Soto DONOR RELATIONS ASSOCIATE Unavailable [phone] Selina Olsen DONOR RELATIONS ASSOCIATE Unavailable [phone] Veda Mcfarland Clerical Staff Unavailable U navailable Reason for Visit * Reason Comments Medication Refill Encounter Details Date Type Department Care Team (Late st Contact Info) Description 06/20/2024 Refill [facility] [place] [address] Darío Rubio MD [address] [place] [address] Medication Refill Social History Tobacco Use [...] followed by 7 days off 42 Tablet 06/24/2024 12:14 PM EDT 06/20/2024 documented in this encounter Miscellaneous Notes * Telephone Encounter - Aislinn Viera RN - 06/20/2024 10:15 AM EDT Received refill request for kisqali for pt. Reviewed chart; pt has f/u appt on 07/03/2024. Last RX was sent on 05/21/2024 with 0 refills, so refill is appropriate. Last office note on 06/07/2024 states: Continue AI + kisqali 400 mg daily (days 1-14, off 7 days after). Escript for kisqali sent to pt'spharmacy. documented in this encounter Plan of Treatment Upcoming Encounters Date Type Department Care Team (Late st Contact Info) Description 09/11/2024 1:45 PM EST Office Visit [facility] [address] [place] [address] Swapnil Lopez MD [address] [place] [address] 10/21/2024 2:00 PM EST Appointment [facility] MRI [address] [place] [address] Jacky Shirley MD [address] [place] [address] [place] [address] 10/23/2024 1:45 PM EST Appointment [facility] [place] [address] Olena Darby APRN [address] [place] [address] [place], [place] [id number] documented as of this encounter Goals Goal [...] days followed by 7 days off Reorder 05/21/2024 06/20/2024 documented as of this encounter Additional Health Concerns Assessment Noted Time PHQ-9 Depression Total Score: 13 024 1:47 PM EDT PHQ-2 Depression Total Score: 3 12/29/19 24 1:47 PM EDT documented as of this encounter Care Teams Cake Puller Relationship Specialty Start Date End Date Damaso Black MD 1005 [facility] 22 [facility] [place] [address] PCP - General Family Medicine 11/22/22 Swapnil Lopez MD [address] [place] [address] Internal Medicine-Gastroenterology 02/16/22 Darío Rubio MD [address] [place] [address] [place] [address] Internal Medicine-Medical Oncology 12/11/23 Mya Naranjo MD [address] [place] [address] [place] [address] Family Medicine - Hospice And Palliative Medicine 01/04/24 Ashley Ordonez APRN [address] [place] [address] [place] [address] Nurse Practitioner 01/04/24 Nicole Melendez, RN Registered Nurse 01/04/24 Aislinn Viera, RN Registered Nurse 02/07/24 Ronit Conner, ANGE Registered Nurse 04/10/24 Armando Vieira MSW Hydro Excavation Operator 04/10/24 Kallmeyer, Vicki, RN Registered Nurse 04/10/24 Trinh Bullock APRN 1 [facility] [place] [address] Nurse Practitioner Nurse Practitioner-Family 04/10/24 Selina Olsen APRN 1 [facility] [place] [address] Nurse Practitioner 04/10/24 Veda Mcfarland, Clerical Staff 05/14/24 documented as of this encounter
--- OUTSIDE RECORDS SUMMARY | 2024-08-15 13:47 | XMS_ITS | Encounter Summary ---
Author Organization [place] [address] Care Team Providers Care Mathematical Statistician Name Role Phone Swapnil Lopez MD Unavailable [phone] Damaso Black MD Primary Care Provider [phone] Darío Rubio MD Unavailable [phone] Mya Naranjo MD Unavailable [phone] Ashley Ordonez CROWN CERAMIST Unavailable [phone] Nicole Melendez RN Unavailable Unavailable Aislinn Viera RN Unavailable Unavailable Ronit Conner RN Unavailable Unavailable Armando Vieira RELEASE AND TECHNICAL RECORDS CLERK Unavailable Unavailable Vicki Amato RN Unavailable UnavailTrinh Soto CROWN CERAMIST Unavailable [phone] Selina Olsen CROWN CERAMIST Unavailable [phone] Veda Mcfarland Clerical Staff Unavailable U navailable Reason for Visit * Reason Onset Date Comments Medication Refill 06/19/2024 Encounter Details Date Type Department Care Team (Late st Contact Info) Description 06/19/2024 Refill [facility] [address] [place] [address] Selina Olsen APRN 1 [facility] [place] [address] Medication Refill Social History Tobacco Use [...] by mouth every 3 hours. 200 Capsule 06/20/2024 documented in this encounter Miscellaneous Notes * Telephone Encounter - Vicki Amato RN - 06/20/2024 7:49 AM EDT Sent to Akash Glass APRN for refill patient not followed in Palliative Care Vicki Amato RN * Telephone Encounter - Vicki Amato RN - 06/20/2024 7:49 AM EDT Please see note for refill. Sent to us mistakingly documented in this encounter Plan of Treatment Upcoming Encounters Date Type Department Care Team (Late st Contact Info) Description 09/11/2024 1:45 PM EST Office Visit [facility] [address] [facility] [place] [address] Swapnil Lopez MD [address] [place] [address] 10/21/2024 2:00 PM EST Appointment [facility] MRI [address] [place] [address] Jacky Shirley MD [address] [place] [address] CANCER CARE [place], [place] [id number] 10/23/2024 1:45 PM EST Appointment [facility] [place], [place] [phone] Olena Darby APRN [address] [place] [address] CANCER [place], [place] [id number] documented as of this encounter Goals Goal [...] 2 mg Oral CapsuleIndications:Diarr hea, unspecified type TAKE 1 CAPSULE BY MOUTH EVERY 3 HOURS Reorder 05/22/2024 06/19/2024 documented as of this encounter Additional Health Concerns Assessment Noted Time PHQ-9 Depression Total Score: 13 024 1:47 PM EDT PHQ-2 Depression Total Score: 3 12/29/19 24 1:47 PM EDT documented as of this encounter Care Teams Mathematical Statistician Relationship Specialty Start Date End Date Damaso Black MD 1005 [facility] [address] [place] [address] PCP - General Family Medicine 11/22/22 Swapnil Lopez MD [address] [place] [address] Internal Medicine-Gastroenterology 02/16/22 Darío Rubio MD [address] [place] [address] [place] [address] Internal Medicine-Medical Oncology 12/11/23 Mya Naranjo MD [address] [place] [address] [place] [address] Family Medicine - Hospice And Palliative Medicine 01/04/24 Ashley Ordonez APRN [address] [place] [address] [place] [address] Nurse Practitioner 01/04/24 Nicole Melendez, RN Registered Nurse 01/04/24 Aislinn Viera, RN Registered Nurse 02/07/24 Ronit Conner, ANGE Registered Nurse 04/10/24 Armando Vieira MSW Tissue Inserter 04/10/24 Vicki Amato, RN Registered Nurse 04/10/24 Trinh Bullock APRN [address] [place] [address] [place] [address] Nurse Practitioner Nurse Practitioner-Family 04/10/24 Selina Olsen APRN [address] [place] [address] Nurse Practitioner 04/10/24 Veda Mcfarland, Clerical Staff 05/14/24 documented as of this encounter
--- OUTSIDE RECORDS SUMMARY | 2024-08-15 13:47 | XMS_ITS | Encounter Summary ---
Author Organization [place] [address] Care Team Providers Care Temperer Name Role Phone Swapnil Lopez MD Unavailable [phone] Damaso Black MD Primary Care Provider +[phone] Darío Rubio MD Unavailable [phone] Mya Naranjo MD Unavailable [phone] Ashley Ordonez SUPERVISOR MATRIX Unavailable [phone] Nicole Melendez RN Unavailable Unavailable Aislinn Viera RN Unavailable Unavailable Ronit Conner RN Unavailable Unavailable Armando Vieira COMPUTER AIDED DESIGN OPERATOR Unavailable Unavailable Vicki Amato RN Unavailable UnavailTrinh Soto SUPERVISOR MATRIX Unavailable [phone] Selina Olsen SUPERVISOR MATRIX Unavailable [phone] Veda Mcfarland Clerical Staff Unavailable U navailable Encounter Details Date Type Department Care Team (Latest Contact Info) Description 06/05/2024 7:41 AM EDT - 06/05/2024 11:59 PM EDT Hospital Encounter [facility] [address] [place] [address] Heather Quiroz MD [address] [place], [place] [id number] Jacky Shirley MD [address] [place] [address] [place] [address] Secondary malignant neoplasm of bone (HCC) (Primary Dx) Discharge Disposition: Home or Self Care Social [...] documented in this encounter Progress Notes * Jacky Shirley MD - 06/05/2024 3:00 PM EDT Headache improved with steroids. Taper completed and headaches have not returned. Pt re-established care with local pain management clinic and is happy with care. Plans for repeat MRI head in October with [facility] FU at that time. Discussed signs and symptoms of cerebral edema. Will call sooner if additional needs arise. * Agatha Contreras RN - 06/05/2024 3:00 PM EDT Telephone visit today per Dr Shirley. PAtient has follow up scheduled for October along with an MRI scheduled. No further scheduling needs. documented in this encounter Plan of Treatment Upcoming Encounters Date Type Department Care Team (Late st Contact Info) Description 09/11/2024 1:45 PM EST Office Visit [facility] [address] [place] [address] Swapnil Lopez MD [address] [place] [address] 10/21/2024 2:00 PM EST [facility] [address] [place] [address] Jacky Shirley MD 1 [facility] [place] [address] 10/23/2024 1:45 PM EST Appointment [facility] [place] [address] Olena Darby APRN 1 [facility] [place] [address] documented as of this encounter [...] as of this encounter Visit Diagnoses Diagnosis Secondary malignant neoplasm of bone (HCC)- Primary Secondary malignant neoplasm of bone and bone marrow documented in this encounter Additional Health Concerns Assessment Noted Time PHQ-9 Depression Total Score: 13 024 1:47 PM EDT PHQ-2 Depression Total Score: 3 12/29/19 24 1:47 PM EDT documented as of this encounter Care Teams Temperer Relationship Specialty Start Date End Date Damaso Black MD [facility]5 [facility] 22 [place] [address] PCP - General Family Medicine 11/22/22 Swapnil Lopez MD [address] [place] [address] Internal Medicine-Gastroenterology 02/16/22 Darío Rubio MD [address] [place] [address] [place] [address] Internal Medicine-Medical Oncology 12/11/23 Mya Naranjo MD [address] [place] [address] [place] [address] Family Medicine - Hospice And Palliative Medicine 01/04/24 Ashley Ordonez APRN [address] [place] [address] [place] [address] Nurse Practitioner 4/4/24 Nicole Melendez, RN Registered Nurse 01/04/24 Aislinn Viera, RN Registered Nurse 02/07/24 Ronit Conner, RN Registered Nurse 04/10/24 Armando Vieira, ITA Teller Manager 04/10/24 Vicki Amato, RN Registered Nurse 04/10/24 Trinh Bullock APRN [address] [facility] [place] [address] Nurse Practitioner Nurse Practitioner-Family 04/10/24 Selina Olsen APRN [address] [facility] [address] Nurse Practitioner 04/10/24 Veda Mcfarland, Clerical Staff 05/14/24 documented as of this encounter
--- OUTSIDE RECORDS SUMMARY | 2024-08-15 13:47 | XMS_ITS | Encounter Summary ---
Author [place] [address] Care Team Providers Care Technician Helper Instrument Name Role Phone Swapnil Lopez MD Unavailable [phone] Damaso Black MD Primary Care Provider [phone] Darío Rubio MD Unavailable [phone] Mya Naranjo MD Unavailable [phone] Ashley Ordonez RADIOLOGY ASSISTANT Unavailable [phone] Nicole Melendez RN Unavailable Unavailable Aislinn Viera RN Unavailable Unavailable Ronit Conner RN Unavailable Unavailable Armando Vieira SNOWBOARD INSTRUCTOR Unavailable Unavailable Vicki Amato RN Unavailable UnavailTrinh Soto RADIOLOGY ASSISTANT Unavailable [phone] Selina Olsen RADIOLOGY ASSISTANT Unavailable [phone] Veda Mcfarland Clerical Staff Unavailable U navailable Encounter Details Date Type Department Care Team (Late st Contact Info) Description 05/24/2024 Orders Only [facility] [address] Aislinn Champion, RN Secondary malignant neoplasm of bone (HCC) (Primary Dx) Social History Tobacco Use [...] Entry Date Author No 09/05/2017 11:13 AM LUCÍA Mercedes Gabby SHANNON documented in this encounter Ordered Prescriptions Prescription Sig Dispense Quantity Refills Last Filled Start Date End Date methylPREDNISolone (MEDROL DOSPACK) 4 mg Oral Tablets, Dose PackIndications:Se condary malignant neoplasm of bone (HCC) Follow package directions. 1 Each 05/24/2024 4 documented in this encounter Plan of Treatment Upcoming Encounters Date Type Department Care Team (Late st Contact Info) Description 09/11/2024 1:45 PM EST Office Visit [facility] [address] [place] [facility] [place] [address] Swapnil Lopez MD [address] [place] [address] 10/21/2024 2:00 PM EST Appointment [facility] [address] [address] Jacky Shirley MD 1 [facility]CER [place], [place] [id number] 10/23/2024 1:45 PM EST Appointment [facility] [place], [place] [id number] Olena Darby APRN 1 [facility] [place], [place] [id number] documented as of this encounter Goals Goal [...] documented as of this encounter Care Teams Technician Helper Instrument Relationship Specialty Start Date End Date Damaso Black MD [facility] [facility] [address] [facility] [address] PCP - General Family Medicine 11/22/22 Swapnil Lopez MD [address] [place] [phone] Internal Medicine-Gastroenterology 02/16/22 Darío Rubio MD [address] [facility] [place] [address] Internal Medicine-Medical Oncology 12/11/23 Mya Naranjo MD [address] [facility] [place] [address] Family Medicine - Hospice And Palliative Medicine 01/04/24 Ashley Ordonez, YON [address] [facility] [place] [address] Nurse Practitioner 01/04/24 Nicole Melendez, RN Registered Nurse 01/04/24 Aislinn Viera, RN Registered Nurse 02/07/24 Ronit Conner, RN Registered Nurse 04/10/24 Armando Vieira MSW Advisory Software Engineer 04/10/24 Vicki Amato, RN Registered Nurse 04/10/24 Trinh Bullock APRN [address] [facility] [place] [address] Nurse Practitioner Nurse Practitioner-Family 04/10/24 Selina Olsen APRN [address] [facility] [place] [address] Nurse Practitioner 04/10/24 Veda Mcfarland, Clerical Staff 05/14/24 documented as of this encounter
--- OUTSIDE RECORDS SUMMARY | 2024-08-15 13:47 | XMS_ITS | Encounter Summary ---
Author Organization [place] [address] Care Team Providers Care Education Department Registrar Name Role Phone Swapnil Loepz MD Unavailable [phone] Damaso Black MD Primary Care Provider [phone] Darío Rubio MD Unavailable [phone] Mya Naranjo MD Unavailable [phone] Ashley Ordonez SCREENER AND BLENDER Unavailable [phone] Nicole Melendez RN Unavailable Unavailable Aislinn Viera RN Unavailable Unavailable Ronit Conner RN Unavailable Unavailable Armando Vieira ADJUNCT POLITICAL SCIENCE INSTRUCTOR Unavailable Unavailable Vicki Amato RN Unavailable UnavailTrinh Soto SCREENER AND BLENDER Unavailable [phone] Selina Olsen SCREENER AND BLENDER Unavailable [phone] Veda Mcfarland Clerical Staff Unavailable U navailable Reason for Visit * Reason Onset Date Comments Schedule Appointment 05/01/2024 1 month f/u Encounter Details Date Type Department Care Team (Late st Contact Info) Description 05/01/2024 [facility]phone [facility] [place] [address] Darío Rubio MD [address] [place] [address] Schedule Appointment (1 month f/u ) Social History Tobacco Use Types Packs/Day [...] Encounter - Aislinn Viera RN - 05/27/2024 9:[address] on [place]'s schedule for 06/07 1:45. * Telephone Encounter - Stephanie Lundberg - 05/23/2024 4:55 PM EDT LVM to call [phone] to schedule appt * Telephone Encounter - Aislinn Viera RN - 05/23/2024 4:20 PM EDT Please reach out to patient again to schedule follow up. * Telephone Encounter - Nikky Virgen, Clerical Staff - 05/06/2024 10:48 AM EDT LVM advising pt to call [phone] to schedule a 1 mo f/u appt with an KENISHA. * Telephone Encounter - Nikky Virgen, Clerical Staff - 05/03/2024 8:53 AM EDT LVM advising pt to call [phone] to schedule a 1 mo f/u appt with an KENISHA. * Telephone Encounter - Nikky Virgen Clerical Staff - 05/02/2024 9:49 AM EDT LVM advising pt to call [phone] to schedule a 1 mo f/u appt with an KENISHA. * Telephone Encounter - Aislinn Viera RN - 05/01/2024 2:52 PM EDT Patient to follow up in 1 month with SCREENER AND BLENDER. She needs an afternoon appt. documented in this encounter Plan of Treatment Upcoming Encounters Date Type Department Care Team (Late st Contact Info) Description 09/11/2024 1:45 PM EST Office Visit [facility] [address] [facility] [place] [address] Swapnil Lopez MD [address] [place] [address] 10/21/2024 2:00 PM EST Appointment [facility] [address] [address] Jacky Shirley MD 1 [facility] [place], [place] [id number] 10/23/2024 1:45 PM EST Appointment [facility] [address] Olena Darby APRN [address] [place] [address] [place], [place] [id number] documented as of this encounter Goals Goal [...] documented as of this encounter Care Teams Education Department Registrar Relationship Specialty Start Date End Date Damaso Black MD [address] [place] [address] PCP - General Family Medicine 11/22/22 Swapnil Lopez MD [address] [place] [address] Internal Medicine-Gastroenterology 02/16/22 Darío Rubio MD [address] [facility] [place] [address] Internal Medicine-Medical Oncology 12/11/23 Mya Naranjo MD [address] [facility] [place] [address] Family Medicine - Hospice And Palliative Medicine 01/04/24 Ashley Ordonez, SCREENER AND BLENDER [address] [facility] [place] [address] Nurse Practitioner 01/04/24 Nicole Melendez, RN Registered Nurse 01/04/24 Aislinn Viera, RN Registered Nurse 02/07/24 Ronit Conner, RN Registered Nurse 04/10/24 Armando Vieira, ITA Brush Machine Setter 04/10/24 Vicki Amato, RN Registered Nurse 04/10/24 Trinh Bullock, SCREENER AND BLENDER [address] [facility] [place] [address] Nurse Practitioner Nurse Practitioner-Family 04/10/24 Selina Olsen, YON [address] [facility] [place] [address] Nurse Practitioner 04/10/24 Veda Mcfarland, Clerical Staff 05/14/24 documented as of this encounter
--- OUTSIDE RECORDS SUMMARY | 2024-08-15 13:47 | XMS_ITS | Encounter Summary ---
Author Organization [place] [address] Care Team Providers Care Ems Helicopter Pilot Name Role Phone Swapnil Lopez MD Unavailable [phone] Damaso Black MD Primary Care Provider [phone] Darío Rubio MD Unavailable [phone] Mya Naranjo MD Unavailable [phone] Ashley Ordonez CERTIFIED CONTROL SYSTEMS TECHNICIAN Unavailable [phone] Nicole Melendez RN Unavailable Unavailable Aislinn Viera RN Unavailable Unavailable Ronit Conner RN Unavailable Unavailable Armando Vieira CORN HUSK BALER Unavailable Unavailable Vicki Amato RN Unavailable UnavailTrinh Soto CERTIFIED CONTROL SYSTEMS TECHNICIAN Unavailable [phone] Selina Olsen CERTIFIED CONTROL SYSTEMS TECHNICIAN Unavailable [phone] Veda Mcfarland Clerical Staff Unavailable U navailable Reason for Visit * Reason Comments Medication Refill Encounter Details Date Type Department Care Team (Late st Contact Info) Description 05/21/2024 Refill [facility] [place] [address] Darío Rubio MD [address] [place] [address] Medication Refill Social History Tobacco Use [...] followed by 7 days off 42 Tablet 05/30/2024 9:35 AM EDT 05/21/2024 documented in this encounter Miscellaneous Notes * Telephone Encounter - Aislinn Viera RN - 05/21/2024 1:46 PM EDT Received refill request for kisqali for pt. Reviewed chart; pt needs f/u. Last RX was sent on 04/23/2024 with 0 refills, so refill is appropriate. Last office note on 05/01/2024 states: Continue AI + kisqali 400 mg daily (days 1-14, off 7 days after). Escript for kisqali sent to pt's pharmacy. documented in this encounter Plan of Treatment Upcoming Encounters Date Type Department Care Team (Late st Contact Info) Description 09/11/2024 1:45 PM EST Office Visit [facility] [address] [place] [facility] [address] Swapnil Lopez MD [address] [place] [id number] 10/21/2024 2:00 PM EST Appointment [facility] [address] [place] [address] Jacky Shirley MD [address] [place] [address] [place] [address] 10/23/2024 1:45 PM EST Appointment [facility] [place] [place] [address] Olena Darby APRN [address] [place] [address] documented as of this encounter Goals [...] days followed by 7 days off Reorder 04/23/2024 05/21/2024 documented as of this encounter Additional Health Concerns Assessment Noted Time PHQ-9 Depression Total Score: 13 024 1:47 PM EDT PHQ-2 Depression Total Score: 3 12/29/19 24 1:47 PM EDT documented as of this encounter Care Teams Ems Helicopter Pilot Relationship Specialty Start Date End Date Damaso Black MD [address] [facility] [address] [facility] [place] [id number] PCP - General Family Medicine 11/22/22 Swapnil Lopez MD [address] [place] [address] Internal Medicine-Gastroenterology 02/16/22 Darío Rubio MD [address] [facility] [place] [address] Internal Medicine-Medical Oncology 12/11/23 Mya Naranjo MD [address] [facility] [place] [address] Family Medicine - Hospice And Palliative Medicine 01/04/24 Ashley Ordonez APRN [address] [facility] [place] [address] Nurse Practitioner 01/04/24 Nicole Melendez, RN Registered Nurse 01/04/24 Aislinn Viera, RN Registered Nurse 02/07/24 Ronit Conner, RN Registered Nurse 04/10/24 Armando Vieira MSW Vet Assistant 04/10/24 Vicki Amato, RN Registered Nurse 04/10/24 Trinh Bullock APRN [address] [facility] [place] [address] Nurse Practitioner Nurse Practitioner-Family 04/10/24 Selina Olsen APRN [address] [facility] [place] [address] Nurse Practitioner 04/10/24 Veda Mcfarland, Clerical Staff 05/14/24 documented as of this encounter
--- OUTSIDE RECORDS SUMMARY | 2024-08-15 13:47 | XMS_ITS | Encounter Summary ---
Author Organization [place] [address] Care Team Providers Care Engine Turner Name Role Phone Swapnil Lopez MD Unavailable [phone] Damaso Black MD Primary Care Provider [phone] Darío Rubio MD Unavailable [phone] Mya Naranjo MD Unavailable [phone] Ashley Ordonez COMMERCIAL FIELD INSPECTOR Unavailable [phone] Nicole Melendez RN Unavailable Unavailable Aislinn Viera RN Unavailable Unavailable Ronit Conner RN Unavailable Unavailable Armando Vieira WIRE MILL ROVER Unavailable Unavailable Vicki Amato RN Unavailable UnavailTrinh Soto COMMERCIAL FIELD INSPECTOR Unavailable [phone] Selina Olsen COMMERCIAL FIELD INSPECTOR Unavailable [phone] Veda Mcfarland Clerical Staff Unavailable U navailable Reason for Visit * Reason Comments Follow-up Breast Cancer Encounter Details Date Type Department Care Team (Latest Contact Info) Description 06/07/2024 1:33 PM EDT - 06/07/2024 11:59 PM EDT Hospital Encounter Cancer [place] [address] Heather Quiroz MD [address] [place], [place] [id number] Marely Bolden, COMMERCIAL FIELD INSPECTOR [address] [place] [address] Invasive ductal carcinoma of breast, left (HCC) (Primary Dx); Carcinoma of breast metastatic to bone, unspecified laterality (HCC); Encounter for medication monitoring; Aromatase inhibitor use Discharge Disposition: Home or Self Care Social [...] Mass Index 23.61 06/07/2024 1:38 PM EDT documented in this encounter Functional Status * Is the [...] documented in this encounter Progress Notes * Marely Bolden, COMMERCIAL FIELD INSPECTOR - 06/07/2024 1:45 PM EDT Images from the original note were not included. ONCOLOGY FOLLOW-UP: Primary Oncologist: Darío Rubio MD [...] testing results were negative. CURRENT TREATMENT: Kisqali + Arimidex INTERVAL HISTORY: Ms. Sy is a 63 y.o. female who is here for follow up. Endorses compliancy with Kisqali+Arimidex Feeling well energy levels improved No hot flashes or sweats, no recent infections Bowels following typical pattern, no recent flares or exacerbation of Crohn's Denies lump,bumps or masses No skin rashes, itching No headache or confusion, no further headaches following steroid dose pack Reestablished with pain clinic, feels pain is better controlled No new concerns or questions Reviewed past medical, surgical, family, and social histories. Review of Systems Constitutional: Negative for fever, malaise/fatigue and weight loss. Respiratory: Negative for cough. Cardiovascular: Negative for chest pain and leg swelling. Gastrointestinal: Positive for diarrhea (chronic, managable, crohn's dx). Musculoskeletal: Positive for back pain (chronic from prevous injuries). Skin: Negative for rash. Neurological: Negative for dizziness and headaches. Endo/Heme/Allergies: Does not bruise/bleed easily. PHYSICAL EXAM: Vitals: 06/07/24 1338 BP: 123/83 Pulse: 71 Resp: 16 Temp: 98.6 ??F (37 ??C) SpO2: 100% Wt Readings from Last 3 Encounters: 06/07/24 129 lb 1.6 oz (58.6 kg) 04/19/24 127 lb (57.6 kg) 04/19/24 128 lb 6.4 oz (58.2 kg) Physical Exam Vitals reviewed. Constitutional: General: She is not in acute distress. Eyes: General: No scleral icterus. Cardiovascular: Rate and Rhythm: Normal rate. Pulmonary: Effort: Pulmonary effort is normal. No respiratory distress. Abdominal: General: There is no distension. Palpations: Abdomen is soft. Musculoskeletal: Right lower leg: No edema. Left lower leg: No edema. Skin: Coloration: Skin is not jaundiced or pale. Findings: No rash. Neurological: Mental Status: She is alert and oriented to person, place, and time. Motor: No weakness. Gait: Gait normal. Psychiatric: Mood and Affect: Mood normal. LABS: CBC: Lab Results Component Value Date/Time WBC 7.1 06/07/2024 01:32 PM WBC 15.1 (H) 06/25/2016 11:25 AM RBC 4.14 06/07/2024 01:32 PM RBC 4.83 06/25/2016 11:25 AM PLT 357 06/07/2024 01:32 PM PLT 329 06/25/2016 11:25 AM CMP: Lab Results Component Value Date NA 142 03/08/2024 K 4.1 03/08/2024 CL 106 03/08/2024 CO2 24 03/08/2024 ANIONGAP 12 03/08/2024 CALCIUM 9.4 03/08/2024 GLU 92 03/08/2024 BUN 13 03/08/2024 CREATININE 0.9 04/01/2024 ALBUMIN 4.0 03/08/2024 PROT 7.0 03/08/2024 LABBILI <0.2 (L) 03/08/2024 ALT 8 03/08/2024 AST 15 03/08/2024 GFRAFRAM 77 04/13/2021 GFRNONAFRAM 67 04/13/2021 IMAGING: All relevant images were reviewed in detail with the patient. All questions were addressed and answered in great detail. MRI BRAIN W WO CONTRAST Result Date: 04/15/2024 MRI BRAIN W WO CONTRAST 04/15/2024 12:48 PM CLINICAL HISTORY: C79.51-Secondary malignant neoplasm ofbone (HCC)-ICD-10-CM. COMPARISON: 11/23/2023 PROCEDURE COMMENTS: Multiplanar multiecho MR imaging ofthe brain per protocol before and following IV contrast administration. Gadolinium contrast given as recorded in Epic. FINDINGS: In the LEFT frontal bone calvarium is again noted. Centrally there is now some nonenhancing area compatible with central necrosis. No new enhancing masses calvarium. No new brain metastases identified The ventricles are midline. There are no extra-axial collections. Included portions of the paranasal sinuses, mastoids, and orbits unremarkable. Stable enhancing LEFT frontal bone enhancing mass now with some central necrosis. No new finding - Note: Radiology results need to be interpreted within a comprehensive clinical context. If you have questions about the radiology report, please contact the office of the ordering clinician. CT CHEST ABDOMEN PELVIS WO CONTRAST Result Date: 04/01/2024 CT CHEST, ABDOMEN, AND PELVIS WITHOUT CONTRAST, 04/01/2024 3:58 PM CLINICAL HISTORY: C50.912-Malignant neoplasm of unspecified site of left female breast (HCC)-ICD-10-CM C79.51-Secondary malignant neoplasm of bone (HCC)-ICD-10-CM. COMPARISON: CT of the abdomen pelvis dated April 02, 2015 PROCEDURE COMMENTS: Multidetector CT chest, abdomen, and pelvis with multiplanar. No contrast given. Dose 1 : CT DLP Total : 456.5 mGycm DLP Spiral Max : 241.7 mGycm Maximum CTDI Vol : 10.4 mGy SSDE : 14.664 mGy SSDE Diameter : 26.292 cm SSDE Source : OLX FINDINGS: No IV contrast limits evaluation for metastatic disease. CT CHEST: Left axillary adenopathy measuring 1.1 cm which appear to contain a clip from biopsy. Left upper lateral breast mass inferior to the axilla about 1.5 cm. Likely the site of all breast cancer with the metastatic axillary adenopathy. Additional smaller left axillary lymph nodes also present. No dominant mediastinal adenopathy. No pericardial effusion or pleural effusion. No pne umothorax. About 7 mm diameter pleural-based nodular density in the right lower lobe abutting the major fissure. Curvilinear atelectasis or fibrosis at the bilateral lung bases. Coronary artery calcification: Mild. CT ABDOMEN AND PELVIS: Noncontrast CT images of the liver, spleen, bilateral adrenalglands, kidneys are unremarkable. Small pancreas. Gallstones. Mild atherosclerotic aorta. No aneurysm. No dominant retroperitoneal adenopathy. No bowel obstruction. Previously demonstrated abnormal thickened the rectal wall has resolved. There appears to be persistent sinus/fistula tract from the rectum on the left side. Uterus and bladder appears to be displaced anterior and to the right side similar to the prior study. No ascites. No dominant pelvic adenopathy. Left breast mass and axillary adenopathy. 7 mm diameter pleural-based a nodule in the right lower lobe abutting the major fissure. Unlikely a metastatic lesion. However, recommend a follow-up in a few months for reevaluation. No definite evidence of metastatic disease in the abdomen pelvis. However, Limited evaluation due to lack of IV contrast. Cholelithiasis. There appears to be persistent leftperirectal fistula/sinus.. - Note: Radiology results need to be interpreted within a comprehensive clinical context. If you have questions about the radiology report, please contact the office of theordering clinician. ASSESSMENT AND PLAN: Patient is a 63 y.o. 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 Stage IV Invasive Ductal Carcinoma of Left Breast (T2N3M1, ER+, UT+, HER2-) Patient coming from [facility]. Patient reports feeling an enlarging breast lump. She is post-menopausal and has had a hysterectomy and no FMH of cancer. Left breast mass and left axilla biopsied and revealing invasive ductal carcinoma, grade 2, some DCIS as well. ER 96%, UT 73%, HER2 2+, FISH negative, lymph node [...] for faslodex monthly monotherapy if still in senior living. Discussed side effects of faslodex and gave information. If out of senior living- would consider faslodex and ribociclib vs AI + CDK4/6. Out of senior living mid December [address] Rubio discussed we could do CDK4/6 inhibitor ribociclib (kisqali) + anastrazole (AI). Had started on AI prior. Discussed side effects of neutropenia, EKG/arrhythmiaabnormalities, peripheral edema, alopecia, rash, electrolyte abnormalities, n/v/d, abdominal pain, other cytopenias, liver and kidney abnormalities, infection, fatigue, dizziness, headaches, arthralgias, osteoporosis detention, fever, hot flashes, mood swings and other [...] well. Last EKG Qtc 403 in 03/2024. Today (06/07/2024) -Continue AI + kisqali 400 mg daily (days 1-14, off 7 days after) -CBC and CMP, no clinically significant abnormal lab -GI manages lomotil for crohn's related diarrhea, follows with Dr Lopez -DEXA scan this afternoon Dr Rubio to follow-up with results -Endorses compliancy Ca/VitD and doing weight bearing exercise -re-discussed possible bone modifying agents that could be options, pt adamantly declines therapeutic options that involve traveling center. -Patient lives near [place] so requesting afternoon apts DISPO: Return in about 4 weeks (around 07/05/2024) for MD BOWLES, LAB APT. Thank you for the opportunity to assist in the care of this patient, please feel free to contact meif I can be of any assistance. Marely Bolden APRN Hematology and Medical Oncology [facility] documented in this encounter Plan of Treatment Upcoming Encounters Date Type Department Care Team (Late st Contact Info) Description 09/11/2024 1:45 PM EST Office Visit [facility] [address] [facility] [place] [address] Swapnil Lopez MD [address] [address] 10/21/2024 2:00 PM EST Appointment [facility] MRI [address] [place], [place] [id number] Jacky [place] MD [address] [place] [address] 10/23/2024 1:45 PM EST Appointment [facility] [place] [address] Olena Darby APRN [address] [place] [id number] documented as of this encounter Goals Goal [...] ductal carcinoma of breast, left (HCC)- Primary Carcinoma of breast metastatic to bone, unspecified laterality (HCC) Encounter for medication monitoring Encounter for therapeutic drug monitoring Aromatase inhibitor use Use of aromatase inhibitors documented in this encounter Discontinued Medications Medication Sig Discontinue Reason Start Date End Da te diphenoxylate-atropine (LOMOTIL) 2.5-0.025 mg Oral TabletIndications:Crohn 's disease of both small and large intestine without complication (HCC) TAKE 2 TABLETS BY MOUTH FOUR TIMES DAILY NEEDED. NO MORE THAN 8 TABLETS PER DAY DELETE-Duplicate 04/28/2024 06/07/2024 loperamide (IMODIUM) 2 mg Oral CapsuleIndications:Diar brianna, unspecified type Take 1 Capsule by mouth every 3 hours. DELETE-Duplicate 05/22/2024 06/07/2024 methylPREDNISolone (MEDROL DOSPACK) 4 mg Oral Tablets, Dose PackIndications:Seconda ry malignant neoplasm of bone (HCC) Follow package directions. DELETE-Therapy completed 05/24/2024 06/07/2024 ribociclib (KISQALI) 200 mg/day (200 mg x 1) Oral Tablet Take 2 tablets every day by oral route. DELETE-Duplicate 06/07/2024 documented as of this encounter Historical Medications * This list may reflect changes made after this encounter. ondansetron (ZOFRAN) 4 mg Oral Tablet Take 4 mg by mouth. 04/25/2022 acyclovir (ZOVIRAX) 800 mg Oral Tablet Take 1 tablet 5 times a day by oral route for 7 days. 06/05/2024 ribociclib (KISQALI) 200 mg/day (200 mg x 1) Oral Tablet Take 2 tablets every day by oral route. 06/07/2024 traMADoL 100 mg Oral Tablet 03/21/2024 08/12/2024 added in this encounter Additional Health Concerns Assessment Noted Time PHQ-9 Depression Total Score: 13 024 1:47 PM EDT PHQ-2 Depression Total Score: 3 12/29/19 24 1:47 PM EDT documented as of this encounter Care Teams Engine Turner Relationship Specialty Start Date End Date Damaso Black MD [address] [facility] [address] [place] [address] PCP - General Family Medicine 11/22/22 Swapnil Lopez MD [address] [place] [address] Internal Medicine-Gastroenterology 02/16/22 Darío Rubio MD [address] [place] [address] Internal Medicine-Medical Oncology 12/11/23 Mya Naranjo MD [address] [facility] [address] [place], [place] [address] Family Medicine - Hospice And Palliative Medicine 01/04/24 Ashley Ordonez, COMMERCIAL FIELD INSPECTOR [address] [facility] [place] [address] Nurse Practitioner 01/04/24 Nicole Melendez, RN Registered Nurse 01/04/24 Aislinn Viera, RN Registered Nurse 02/07/24 Ronit Conner, RN Registered Nurse 04/10/24 Armando Vieira, WIRE MILL ROVER Learning Specialist 04/10/24 Vicki Amato, RN Registered Nurse 04/10/24 Trinh Bullock APRN [address] [facility] [place] [address] Nurse Practitioner Nurse Practitioner-Family 04/10/24 Selina Olsen, YON [address] [place] [address] Nurse Practitioner 04/10/24 Veda Mcfarland, Clerical Staff 05/14/24 documented as of this encounter
--- OUTSIDE RECORDS SUMMARY | 2024-08-15 13:47 | XMS_ITS | Encounter Summary ---
[facility] Address [address] [facility] [place] [address] Care Team Providers Care Boardinghouse Keeper Name Role Phone Swapnil Lopez MD Unavailable [phone] Damaso Black MD Primary Care Provider [phone] Darío Rubio MD Unavailable [phone] Mya Naranjo MD Unavailable [phone] Ashley Ordonez FACULTY RESEARCH PHYSICIAN Unavailable [phone] Nicole Melendez RN Unavailable Unavailable Aislinn Viera RN Unavailable Unavailable Ronit Conner RN Unavailable Unavailable Armando Vieira SAS STATISTICAL PROGRAMMER Unavailable Unavailable Vicki Amato RN Unavailable UnavailTrinh Soto FACULTY RESEARCH PHYSICIAN Unavailable [phone] Selina Oslen FACULTY RESEARCH PHYSICIAN Unavailable [phone] eVda Mcfarland Clerical Staff Unavailable U navailable Reason for Visit * Reason Comments Medication Refill Encounter Details Date Type Department Care Team (Late st Contact Info) Description 05/21/2024 Refill [facility] [address] [place] [address] Selina Olsen APRN [address] [facility] [address] [place], [place] [id number] Medication Refill Social History Tobacco Use Types [...] 2 mg Oral CapsuleIndications :Diarrhea, unspecified type TAKE 1 CAPSULE BY MOUTH EVERY 3 HOURS 200 Capsule 05/22/2024 documented in this encounter Plan of Treatment Upcoming Encounters Date Type Department Care Team (Late st Contact Info) Description 09/11/2024 1:45 PM EST Office Visit [facility] [address] [facility] [address] Swapnil Lopez MD [address] [place] [address] 10/21/2024 2:00 PM EST Appointment [facility] MRI [address] [place] [address] Jacky [place] MD [address] [place] [address] [place] [address] 10/23/2024 1:45 PM EST Appointment [facility] [address] [place], [place] [id number] Olena Darby APRN [address] [place] [address] [place]ER [place], [place] [id number] documented as of this encounter Goals Goal Patient Goal Type Associated Problems Recent Progress Patient-Stated? Author Breast [facility] Breast Health Mary Kate Vázquez, RN Note: [...] 1 Capsule by mouth every 3 hours. 01/24/2024 05/22/2024 documented as of this encounter Additional Health Concerns Assessment Noted Time PHQ-9 Depression Total Score: 13 024 1:47 PM EDT PHQ-2 Depression Total Score: 3 12/29/19 24 1:47 PM EDT documented as of this encounter Care Teams Boardinghouse Keeper Relationship Specialty Start Date End Date Damaso Black MD [address] [facility] [address] [place] [address] PCP - General Family Medicine 11/22/22 Swapnil Lopez MD [address] [place] [id number] Internal Medicine-Gastroenterology 02/16/22 Darío Rubio MD [address] [facility] [place] [address] Internal Medicine-Medical Oncology 12/11/23 Mya Naranjo MD [address] [facility] [place] [address] Family Medicine - Hospice And Palliative Medicine 01/04/24 Ashley Ordonez, YON [address] [facility] [place] [address] Nurse Practitioner 01/04/24 Nicole Melendez, RN Registered Nurse 01/04/24 Aislinn Viera, RN Registered Nurse 02/07/24 Ronit Conner, RN Registered Nurse 04/10/24 Armando Vieira, SAS STATISTICAL PROGRAMMER Drapery Worker 04/10/24 Vicki Amato, RN Registered Nurse 04/10/24 Trinh Bullock, OYN [address] [facility] [place] [address] Nurse Practitioner Nurse Practitioner-Family 04/10/24 Selina Olsen APRN [address] [facility] [place] [address] Nurse Practitioner 04/10/24 Veda Mcfarland, Clerical Staff 05/14/24 documented as of this encounter
--- OUTSIDE RECORDS SUMMARY | 2024-08-15 13:47 | XMS_ITS | Encounter Summary ---
Author Organization [place] [address] Care Team Providers Care Health Care Administrator Name Role Phone Swapnil Lopez MD Unavailable [phone] Damaso Black MD Primary Care Provider [phone] Darío Rubio MD Unavailable [phone] Mya Naranjo MD Unavailable [phone] Ashley Ordonez REFINING SUPERVISOR Unavailable [phone] Nicole Melendez RN Unavailable Unavailable Aislinn Viera RN Unavailable Unavailable Ronit Conner RN Unavailable Unavailable Armando Vieira BOARD HANDLER Unavailable Unavailable Vicki Amato RN Unavailable UnavailTrinh Soto REFINING SUPERVISOR Unavailable [phone] Selina Olsen REFINING SUPERVISOR Unavailable [phone] Veda Mcfarland Clerical Staff Unavailable U navailable Reason for Referral * DEXA (Routine) - Closed Specialty Diagnoses / Procedures Referred By Contac t Referred To Contact Radiology Diagnoses Invasive ductal carcinoma of left breast, stage 4 (HCC) Procedures DX BONE DENSITY AXIAL SKELETON Darío Rubio MD [address] [place] [address] Phone: tel: fax: Referral ID Status Reason Start Date Expiration Date Visits Re quested Visits Authorized [id number] Closed 02/07/2024 02/06/2025 1 1 Reason for Visit * DEXA (Routine) - Closed Specialty Diagnoses / Procedures Referred By Lata t Referred To Contact Radiology Diagnoses Invasive ductal carcinoma of left breast, stage 4 (HCC) Procedures DX BONE DENSITY AXIAL SKELETON Darío Rubio MD [address] [facility] [place] [address] Phone: tel: fax: Referral ID Status Reason Start Date Expiration Date Visits Re quested Visits Authorized [id number] Closed 02/07/2024 02/06/2025 1 1 Encounter Details Date Type Department Care Team (Latest Contact Info) Description 06/07/2024 12:30 PM EDT - 06/07/2024 1:26 PM EDT Hospital Encounter [facility] DEXA [address] [place] [address] Darío Rubio MD [address] [place] [address] Invasive ductal carcinoma of left breast, stage [...] of Assessment Author No 09/05/2017 11:13 AM EST Mercedes , Gabby, RMA * Does this person have difficulty dressing or bathing? Answer Date of Assessment Author No 09/05/2017 11:13 AM EST Gabby Mercedes RMA * Because of a physical, mental or emotional condition, does this person have difficulty doing errands alone such as visiting a doctor's office or shopping? Answer Date of Assessment Author No 09/05/2017 11:13 AM EST Gabby Mercedes RMA documented as of this encounter Mental [...] PM EST Office Visit [facility] [address] [place] [address] Swapnil Lopez MD [address] [place] [address] 10/21/2024 2:00 PM EST Appointment [facility] MRI [address] [place] [address] Jacky [place] MD [address] [place] [address] [place] [address] 10/23/2024 1:45 PM EST Appointment [facility] [place] [address] Olena Ford, REFINING SUPERVISOR 1 [facility] [place] [address] documented as of this encounter Goals Goal [...] Procedure Name Priority Date/Time Associated Diagnosis Comments DX BONE DENSITY AXIAL SKELETON Routine 06/07/2024 12:52 PM EDT Invasive ductal carcinoma of left breast, stage 4 (HCC) documented in this encounter Results * DX BONE DENSITY AXIAL SKELETON (06/07/2024 12:52 PM EDT) Anatomical Region Laterality Modality Dexa Scan 06/07/2024 Impressions 06/07/2024 3:50 PM EDT Indication: The patient is a post-menopausal female under age 65 with clinical risk factors for an osteoporotic fracture that requires a bone density assessment. Study was performed on [employer] 5. Bone Density: Region ?BMD ? T-score [...] is established. Reported by: Arpita Trujillo PA-C, [facility] on 06/07/2024 12:58:00 PM. us Darío Rubio MD IMG DEXA ORDERABLES Final Resu lt documented in this encounter Visit Diagnoses Diagnosis Invasive ductal carcinoma of left breast, stage 4 (HCC) documented in this encounter Additional Health Concerns Assessment Noted Time PHQ-9 Depression Total Score: 13 024 1:47 PM EDT PHQ-2 Depression Total Score: 3 12/29/19 24 1:47 PM EDT documented as of this encounter Care Teams Health Care Administrator Relationship Specialty Start Date End Date Damaso Black MD [address] [address] PCP - General Family Medicine 11/22/22 Swapnil Lopez MD [address] [place] [address] Internal Medicine-Gastroenterology 02/16/22 Darío Rubio MD [address] [place] [address] [place] [address] Internal Medicine-Medical Oncology 3/11/24 Mya Naranjo MD [address] [facility] [place] [address] Family Medicine - Hospice And Palliative Medicine 01/04/24 Ashley Ordonez APRN [address] [facility] [place] [address] Nurse Practitioner 01/04/24 Nicole Melendez, RN Registered Nurse 01/04/24 Aislinn Viera, RN Registered Nurse 02/07/24 Ronit Conner, RN Registered Nurse 04/10/24 Armando Vieira, ITA Public Health Professor 04/10/24 Vicki Amato, RN Registered Nurse 04/10/24 Trinh Bullock APRN [address] [facility] [place] [address] Nurse Practitioner Nurse Practitioner-Family 04/10/24 Selina Olsen APRN [address] [facility] [address] Nurse Practitioner 04/10/24 Veda Mcfarland, Clerical Staff 05/14/24 documented as of this encounter
--- OUTSIDE RECORDS SUMMARY | 2024-08-15 13:47 | XMS_ITS | Encounter Summary ---
Author Organization [place] [address] Care Team Providers Care Psychologist Name Role Phone Swapnil Lopez MD Unavailable [phone] Damaso Black MD Primary Care Provider [phone] Darío Rubio MD Unavailable [phone] Mya Naranjo MD Unavailable [phone] Ashley Ordonez EXTRACTOR OPERATOR Unavailable [phone] Niocle Melendez RN Unavailable Unavailable Aislinn Viera RN Unavailable Unavailable Ronit Conner RN Unavailable Unavailable Armando Vieira WAY INSPECTOR Unavailable Unavailable Vicki Amato RN Unavailable UnavailTrinh Soto EXTRACTOR OPERATOR Unavailable [phone] Selina Olsen EXTRACTOR OPERATOR Unavailable [phone] Reason for Visit * Reason Comments Follow-up Invasive ductal carc inoma of breast, left Encounter Details Date Type Department Care Team (Latest Contact Info) Description 05/01/2024 2:30 PM EDT - 05/01/2024 11:59 PM EDT Hospital Encounter [facility] [place] [address] Heather Quiroz MD [address] [place] [address] Darío Rubio MD [address] [place] [address] [place] [address] Carcinoma of breast metastatic to bone, unspecified laterality (HCC) (Primary Dx) Discharge Disposition: Home or [...] this encounter Medications at Time of Discharge ondansetron (ZOFRAN) 4 mg Oral Tablet Take 4 mg by mouth. 04/25/2022 triamcinolone (KENALOG) 0.1 % Top CreamIndications: Skin rash Apply topically 3 times daily. 80 g 02/07/2024 loperamide (IMODIUM) 2 mg Oral CapsuleIndication s:Diarrhea, unspecified type Take 1 Capsule by mouth every 3 hours. 200 Capsule 01/24/2024 4 traMADoL (ULTRAM) 50 mg Oral TabletIndications :Invasive ductal carcinoma of breast, left (HCC) Take 2 Tablets by mouth every 4 hours as needed for Pain for up to 30 days. *MAX OF 6 TABLETS PER DAY* 180 Tablet 04/19/2024 4:23 PM EDT 04/19/2024 4 documented as of this encounter Discharge Disposition Disposition Code Departure Means Destination Home or Self Care documented in this encounter Progress Notes * Darío Rubio MD - 05/01/2024 2:40 PM EDT Images from the original note were not included. Patient presented today for routine care follow up through a video visit. Patient has reviewed the terms and conditions of service as part of the registration for today's visit. Patient is aware that a video visit does not replace a qwiw-zv-airm exam and further services maybenecessary. I advised the patient that we are conducting the video visit through our office in a private space,on our secure network and this video visit is being conducted in accordance with [facility] telehealth/video visit regulations. Patient had no questions prior to initiation of the visit. ONCOLOGY FOLLOW-UP: Primary Oncologist: Darío Rubio MD [...] up. Patient states that since last visit doing well with no new issues. Still having normal amount of diarrhea which she states is 6-7 small amounts per day which she uses lomotil for. No other new issues. Reviewed past medical, surgical, family, and social [...] visit. Wt Readings from Last 3 Encounters: 04/19/24 127 lb (57.6 kg) 04/19/24 128 lb 6.4 oz (58.2 kg) 04/15/24 128 lb (58.1 kg) GENERAL APPEARANCE: Alert & Cooperative, Oriented X 3 HEAD: Normocephalic, without obvious abnormality, atraumatic NECK: No palpable lymphadenopathy in supraclavicular or cervical chains LUNGS: No audible rales, wheezes or crackles HEART: Regular rate and rhythm ABDOMEN: Soft, non-tender; bowel sounds normal; no masses, no organomegaly EXTREMETIES: without cyanosis, clubbing, edema or asymmetry SKIN: No jaundice, purpura or petechiae. No rash. LABS: CBC: Lab Results Component Value Date/Time WBC 6.4 03/08/2024 01:30 PM WBC 15.1 (H) 06/25/2016 11:25 AM RBC 4.43 03/08/2024 01:30 PM RBC 4.83 06/25/2016 11:25 AM PLT 268 03/08/2024 01:30 PM PLT 329 06/25/2016 11:25 AM CMP: [...] Diameter : 26.292 cm SSDE Source : Red Ambiental FINDINGS: No IV contrast limits evaluation for [...] Ductal Carcinoma of Left Breast (T2N3M1, ER+, NV+, HER2-) Patient coming from [facility]. Patient reports feeling an enlarging breast lump. She is post-menopausal and has had a hysterectomy and no FMH of cancer. Left breast mass and left axilla biopsied and revealing invasive ductal carcinoma, grade 2, some DCIS as well. ER 96%, NV 73%, HER2 2+, FISH negative, lymph node [...] faslodex monthly monotherapy if still in senior care. Discussed side effects of faslodex and gave information. If out of senior care- would consider faslodex and ribociclib vs AI + CDK4/6. Out of senior care mid December [address] Rubio discussed we could do CDK4/6 inhibitor ribociclib (kisqali) + anastrazole (AI). Had started on AI prior. Discussed side effects of neutropenia, EKG/arrhythmiaabnormalities, peripheral edema, alopecia, rash, electrolyte abnormalities, n/v/d, abdominal pain, other cytopenias, liver and kidney abnormalities, infection, fatigue, dizziness, headaches, arthralgias, osteoporosis [facility], fever, hot flashes, mood swings and other [...] well. Last EKG Qtc 403 in 03/2024. -Continue AI + kisqali 400 mg daily (days 1-14, off 7 days after) -GI managing lomotil as I feel her diarrhea is more crohn's related -Explained importance of DEXA scan on AI and taking Ca/VitD and doing weight bearing exercise -Discussed using bone modifying agent in the future as well with infusion -Patient lives near [place] so requesting afternoon apts Follow up in 1 month A total of 33 minutes of the encounter was spent in performing the following complex tasks: 1) Reviewing medical records in [facility] and if applicable outside records [...] PM EST Office Visit [facility] [address] [facility], [place] [id number] Swapnil Lopez MD [address] [facility] [place] [phone] 10/21/2024 2:00 PM EST Appointment [facility] MRI [address] [place] [address] Jacky Shirley MD 1 [facility] CANCER [place], [place] [id number] 10/23/2024 1:45 PM EST Appointment [facility] [address] [place], [place] [id number] Olena Darby APRN [address] [place] [address] [place]ER [place], [place] [id number] documented as of this encounter Goals Goal [...] this encounter Visit Diagnoses Diagnosis Carcinoma of breast metastatic to bone, unspecified laterality (HCC)- Primary documented in this encounter Additional Health Concerns Assessment Noted Time PHQ-9 Depression Total Score: 13 024 1:47 PM EDT PHQ-2 Depression Total Score: 3 12/29/19 24 1:47 PM EDT documented as of this encounter Care Teams Psychologist Relationship Specialty Start Date End Date Damaso Black MD [address] [place] [address] PCP - General Family Medicine 11/22/22 Swapnil Lopez MD [address] [place] [phone] Internal Medicine-Gastroenterology 02/16/22 Darío Rubio MD [address] [facility] [place] [address] Internal Medicine-Medical Oncology 12/11/23 Mya Naranjo MD [address] [facility] [place] [address] Family Medicine - Hospice And Palliative Medicine 01/04/24 Ashley Ordonez APRN [address] [place] [address] [place] [address] Nurse Practitioner 01/04/24 Nicole Melendez, RN Registered Nurse 01/04/24 Aislinn Viera, RN Registered Nurse 02/07/24 Ronit Conner, RN Registered Nurse 04/10/24 Armando Vieira, ITA Ore Feeder 04/10/24 Vicki Amato, RN Registered Nurse 04/10/24 Trinh Bullock APRN [address] [facility] [place] [address] Nurse Practitioner Nurse Practitioner-Family 04/10/24 Selina Olsen APRN [address] [facility] [place] [address] Nurse Practitioner 04/10/24 documented as of this encounter
--- OUTSIDE RECORDS SUMMARY | 2024-08-15 13:47 | XMS_ITS | Encounter Summary ---
Author Organization [place] [address] Care Team Providers Care Wildfire Prevention Specialist Name Role Phone Swapnil Lopez MD Unavailable Damaso Black MD Primary Care Provider [phone] Darío Rubio MD Unavailable Mya Naranjo MD Unavailable [phone] Ashley Ordonez COMMUNICATIONS STATION MANAGER Unavailable [phone] Nicole Melendez RN Unavailable Unavailable Aislinn Viera RN Unavailable Unavailable Ronit Conner RN Unavailable Unavailable Armando Vieira SENIOR PRODUCT DEVELOPMENT MANAGER Unavailable Unavailable Vicki Amato RN Unavailable UnavailTrinh Soto COMMUNICATIONS STATION MANAGER Unavailable [phone] Selina Olsen COMMUNICATIONS STATION MANAGER Unavailable [phone] Veda Mcfarland Clerical Staff Unavailable U navailable Encounter Details Date Type Department Care Team (Late st Contact Info) Description 05/24/2024 Telephone [place] [address] Ai Hobbs MA Social History Tobacco Use Types Packs/Day Years [...] No 09/05/2017 11:13 AM Gabby De La Garza, SHANNON * Does this person have serious [...] encounter Miscellaneous Notes * Telephone Encounter - Ai Hobbs MA - 06/04/2024 9:15 AM EDT LVM for patient to call back and reschedule. * Telephone Encounter - Ai Hobbs MA - 05/24/2024 2:46 PM EDT LVM for patient to return call to schedule 2 week telephone visit with DEVELOPMENT WRITER to address headchaes followed with Medrol Dosepak. documented in this encounter Plan of Treatment Upcoming Encounters Date Type Department Care Team (Late st Contact Info) Description 09/11/2024 1:45 PM EST Office Visit [facility] [address] [facility], [place] [id number] Swapnil Lopez MD [address] [place] [phone] 10/21/2024 2:00 PM EST Appointment [facility] [place] MRI [address] [place] [address] Jacky Shirley MD 1 [facility] [place] [address] 10/23/2024 1:45 PM EST Appointment [facility] [address] [place], [place] [phone] Olena Darby APRN [address] [place] [address] [place] [address] documented as of this encounter Goals Goal Patient Goal Type Associated Problems Recent Progress Patient-Stated? Author Breast Health Breast Health Mary aKte Vázquez, RN Note: Patient acknowledges understanding of [...] documented as of this encounter Care Teams Wildfire Prevention Specialist Relationship Specialty Start Date End Date Damaso Black MD [address] [place] [address] PCP - General Family Medicine 11/22/22 Swapnil Lopez MD [address] [place] [phone] Internal Medicine-Gastroenterology 02/16/22 Darío Rubio MD [address] [facility] [place] [address] Internal Medicine-Medical Oncology 12/11/23 Mya Naranjo MD [address] [facility] [place] [address] Family Medicine - Hospice And Palliative Medicine 01/04/24 Ashley Ordonez APRN [address] [place] [address] [place] [address] Nurse Practitioner 01/04/24 Nicole Melendez, RN Registered Nurse 01/04/24 Aislinn Viera, RN Registered Nurse 02/07/24 Ronit Conner, RN Registered Nurse 04/10/24 Armando Vieira, SENIOR PRODUCT DEVELOPMENT MANAGER Marine Farmer 04/10/24 Vicki Amato, RN Registered Nurse 04/10/24 Trinh Bullock APRN [address] [facility] [place] [address] Nurse Practitioner Nurse Practitioner-Family 04/10/24 Selina Olsen APRN [address] [facility] [place] [address] Nurse Practitioner 04/10/24 Veda Mcfarland, Clerical Staff 05/14/24 documented as of this encounter
--- OUTSIDE RECORDS SUMMARY | 2024-08-15 13:47 | XMS_ITS | Encounter Summary ---
Author Organization [place] [address] Care Team Providers Care Auto Glass Installer Name Role Phone Swapnil Lopez MD Unavailable [phone] Damaso Black MD Primary Care Provider [phone] Darío Rubio MD Unavailable [phone] Mya Naranjo MD Unavailable [phone] Ashley Ordonez OTHER SPORTS OFFICIAL Unavailable [phone] Nicole Melendez RN Unavailable Unavailable Aislinn Viera RN Unavailable Unavailable Ronit Conner RN Unavailable Unavailable Armando Vieira VENEER SANDER Unavailable Unavailable Vicki Amato RN Unavailable UnavailTrinh Soto OTHER SPORTS OFFICIAL Unavailable [phone] Selina Olsen OTHER SPORTS OFFICIAL Unavailable [phone] Reason for Visit * Reason Comments Pharmacy Oncology Management Ribociclib Encounter Details Date Type Department Care Team (Latest Contact Info) Description 04/23/2024 Specialty Pharmacy [facility] [address] [place] [address] Shruthi Caruso CPhT Pharmacy Oncology [...] La Garza RMA documented in this encounter Progress Notes * Shruthi Caruso CPhT - 04/23/2024 10:[address] [facility] Refill Request Prescription for Ribociclib is out of refills. Will send a request to the provider and contact patient to coordinate refill once response is received. * Damaso Santos RPH - 04/23/2024 10:48 AM EDT [facility] Refill authorization received. Will contact patient to coordinate refill. * Shruthi Caruso CPhT - 04/23/2024 10:48 AM EDT Specialty Pharmacy Refill Coordination Note Contacted [address] today regarding refills of Ribociclib. Copay amount: $0.00 No answer, left voicemail to call [phone], option 4. Patient informed of copay. * Shruthi Caruso CPhT - 04/23/2024 10:48 AM EDT Specialty Pharmacy Refill Coordination Note Contacted [address] today regarding refills of Ribociclib. Medication to be delivered by FedEx on 04/30. Copay amount: $0.00 Spoke with patient. Patient informed of copay. * Damaso Santos RPH - 04/23/2024 10:48 AM EDT [facility] - Care Plan and Refill Review Refill questions and refill history verified. Last assessment 04/16/24. No reassessment needed at this time. Damaso Santos RPH Specialty Pharmacist documented in this encounter Plan of Treatment Upcoming Encounters Date Type Department Care Team (Late st Contact Info) Description 09/11/2024 1:45 PM EST Office Visit [facility] [address] [facility] [place] [address] Swapnil Lopez MD [address] [place] [address] 10/21/2024 2:00 PM EST Appointment [facility] [address] [place] [address] Jacky Shirley MD 1 [facility] [address] 10/23/2024 1:45 PM EST Appointment [facility] [place] [address] Olena Darby APRN 1 [facility] [place], [place] [id number] documented as of this encounter Goals Goal [...] documented as of this encounter Care Teams Auto Glass Installer Relationship Specialty Start Date End Date Damaso Black MD [address] [facility] [address] [place] [address] PCP - General Family Medicine 11/22/22 Swapnil Lopez MD [address] [place] [phone] Internal Medicine-Gastroenterology 02/16/22 Darío Rubio MD [address] [facility] [place] [address] Internal Medicine-Medical Oncology 12/11/23 Mya Naranjo MD [address] [facility] [place] [address] Family Medicine - Hospice And Palliative Medicine 01/04/24 Ashley Ordonez APRN [address] [facility] [place] [address] Nurse Practitioner 01/04/24 Nicole Melendez, RN Registered Nurse 01/04/24 Aislinn Viera, RN Registered Nurse 02/07/24 Ronit Conner, RN Registered Nurse 04/10/24 Armando Vieira MSW Color Developer 04/10/24 Vicki Amato, RN Registered Nurse 04/10/24 Trinh Bullock APRN [address] [facility] [place] [address] Nurse Practitioner Nurse Practitioner-Family 04/10/24 Selina Olsen APRN [address] [facility] [place] [address] Nurse Practitioner 04/10/24 documented as of this encounter
--- OUTSIDE RECORDS SUMMARY | 2024-08-15 13:47 | XMS_ITS | Encounter Summary ---
Author Organization [place] [address] Care Team Providers Care Book Illustrator Name Role Phone Swapnil Lopez MD Unavailable [phone] Damaso Black MD Primary Care Provider [phone] Darío Rubio MD Unavailable [phone] Mya Naranjo MD Unavailable [phone] Ashley Ordonez PRODUCTION ASSEMBLY SUPERVISOR Unavailable [phone] Nicole Melendez RN Unavailable Unavailable Aislinn Viera RN Unavailable Unavailable Ronit Conner RN Unavailable Unavailable Armando Vieira RIBBON CUTTER Unavailable Unavailable Vicki Amato RN Unavailable UnavailTrinh Soto PRODUCTION ASSEMBLY SUPERVISOR Unavailable [phone] Selina Olsen PRODUCTION ASSEMBLY SUPERVISOR Unavailable [phone] Veda Mcfarland Clerical Staff Unavailable U navailable Reason for Visit * Reason Comments Pharmacy Oncology Management Ribociclib Encounter Details Date Type Department Care Team (Latest Contact Info) Description 05/21/2024 Specialty Pharmacy [facility] [address] [place] [address] Shruthi Caruso CPhT Pharmacy Oncology [...] 09/05/2017 11:13 AM Gabby De La Garza RMKay * Is the person blind or does [...] Progress Notes * Shruthi Caruso CPhT - 05/21/2024 1:24 PM EDT [facility] Refill Request Prescription for Ribociclib is out of refills. Will send a request to the provider and contact patient to coordinate refill once response is received. * Fred Mccurdy RPH - 05/21/2024 1:24 PM EDT [facility] Prescription received for Kisqali (400mg/day). Prescription does not require a prior authorization.Scheduled for refill coordination. * Shruthi Caruso CPhT - 05/21/2024 1:24 PM EDT Specialty Pharmacy Refill Coordination Note Contacted [address]len[address] today regarding refills of Ribociclib. Copay amount: $0.00 No answer, left voicemail to call [phone], option 4. Patient informed of copay. * Shruthi Caruso CPhT - 05/21/2024 1:24 PM EDT Specialty Pharmacy Refill Coordination Note Contacted [address]len[address] today regarding refills of Ribociclib. Copay amount: $0.00 No answer, left voicemail to call [phone], option 4. Patient informed of copay. * Shruthi Caruso CPhT - 05/21/2024 1:24 PM EDT Specialty Pharmacy Refill Coordination Note Contacted [address] today regarding refills of Ribociclib. Medication to be delivered by FedEx on 05/31. Copay amount: $0.00 Spoke with patient. Patient informed of copay. * Damaso Santos RPH - 05/21/2024 1:24 PM EDT [facility] - Care Plan and Refill Review Refill questions and refill history verified. Last assessment 04/16/24. No reassessment needed at this time. Damaso Santos RPH Specialty Pharmacist documented in this encounter Plan of Treatment Upcoming Encounters Date Type Department Care Team (Late st Contact Info) Description 09/11/2024 1:45 PM EST Office Visit [facility] [address] [facility], [place] [phone] Swapnil Lopez MD [address] [place] [address] 10/21/2024 2:00 PM EST Appointment [facility] MRI [address] [place] [address] Jacky Shirley MD [address] [place] [address] CANCER [place], [place] [id number] 10/23/2024 1:45 PM EST Appointment [facility] [address] [place], [place] [phone] Olena Darby APRN [address] [place] [address] [place], [place] [id number] documented as of this encounter Goals Goal [...] documented as of this encounter Care Teams Book Illustrator Relationship Specialty Start Date End Date Damaso Black MD [address] [place] [address] PCP - General Family Medicine 11/22/22 Swapnil Lopez MD [address] [place] [phone] Internal Medicine-Gastroenterology 02/16/22 Darío Rubio MD [address] [place] [address] [place] [address] Internal Medicine-Medical Oncology 12/11/23 Mya Naranjo MD [address] [place] [address] [place] [address] Family Medicine - Hospice And Palliative Medicine 01/04/24 Ashley Ordonez APRN [address] [place] [address] [place] [address] Nurse Practitioner 01/04/24 Nicole Melendez, RN Registered Nurse 01/04/24 Aislinn Viera, RN Registered Nurse 02/07/24 Ronit Conner, RN Registered Nurse 04/10/24 Armando Vieira MSW Chargeback Analyst 04/10/24 Vicki Amato, RN Registered Nurse 04/10/24 Trinh Bullock APRN 1 [facility] [place] [address] Nurse Practitioner Nurse Practitioner-Family 04/10/24 Selina Olsen APRN 1 [facility] [place] [address] Nurse Practitioner 04/10/24 Veda Mcfarland, Clerical Staff 05/14/24 documented as of this encounter
--- OUTSIDE RECORDS SUMMARY | 2024-08-15 13:47 | XMS_ITS | Encounter Summary ---
Author [place] [address] Care Team Providers Care Sheetrock Applicator Name Role Phone Swapnil Lopez MD Unavailable [phone] Dmaaso Black MD Primary Care Provider [phone] Darío Rubio MD Unavailable [phone] Mya Naranjo MD Unavailable [phone] Ashley Ordonez ASSISTANT PROFESSOR OF DIETETICS Unavailable [phone] Nicole Melendez RN Unavailable Unavailable Aislinn Viera RN Unavailable Unavailable Ronit Conner RN Unavailable Unavailable Armando Vieira LEVEL VIAL SEALER Unavailable Unavailable Vicki Amato RN Unavailable UnavailTrinh Soto ASSISTANT PROFESSOR OF DIETETICS Unavailable +[phone] Selina Olsen ASSISTANT PROFESSOR OF DIETETICS Unavailable +[phone] Veda cMfarland Clerical Staff Unavailable U navailable Reason for Referral * Consultation (Routine) - Pending Review Specialty Diagnoses / Procedures Referred By Contac t Referred To Contact Diagnoses Crohn's disease of colon with complication (HCC) Secondary malignant neoplasm of bone (HCC) Procedures NE OFFICE/OP CONSLTJ NEW/EST PT MOD MDM 40 MINUTES Jacky Shirley MD [address] [place] [address] [place] [address] Phone: tel: fax: Referral ID Status Reason Start Date Expiration Date V isits Requested Visits Authorized [id number] Pending Review 05/15/2024 05/15/2025 1 1 Comments Chronic pain due to complications of Crohn disease complicated by breast cancer. Encounter Details Date Type Department Care Team (Late st Contact Info) Description 05/15/2024 Orders Only [facility] [address] [place] [address] Jacky Shirley MD 1 [facility] [place] [address] Crohn's disease of colon with complication (HCC) (Primary Dx); Secondary malignant neoplasm of bone (HCC) Social History Tobacco Use Types Packs/Day Years [...] Gabby Mercedes RMA documented in this encounter Plan of Treatment Upcoming Encounters Date Type Department Care Team (Late st Contact Info) Description 09/11/2024 1:45 PM EST Office Visit [facility] [address] [facility] [place] [address] Swapnil Lopez MD [address] [place] [address] 10/21/2024 2:00 PM EST Appointment [facility] MRI [address] [place], [place] [id number] Jacky Shirley MD [address] [place] [place] [address] [place] [address] 10/23/2024 1:45 PM EST Appointment [facility] [place] [address] Olena Darby APRN [address] [place] [address] [id number] Scheduled Referrals Name Type Priority Associated Diagnoses Orde r Schedule AMB REFERRAL TO PAIN CLINIC Outpatient Referral Routine Crohn's disease of colon with complication (HCC) Secondary malignant neoplasm of bone (HCC) Ordered: 05/15/2024 documented as of this encounter Goals Goal Patient Goal Type Associated Problems Recent Progress Patient-Stated? Author Breast Health Breast Health Mary Kate Vázquez, RN Note: Patient acknowledges understanding of new diagnosis, plan of care, available resources and how to contact Nurse Navigator with any future questions or concerns. 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 of bone and bone marrow documented in this encounter Additional Health Concerns Assessment Noted Time PHQ-9 Depression Total Score: 13 024 1:47 PM EDT PHQ-2 Depression Total Score: 3 12/29/19 24 1:47 PM EDT documented as of this encounter Care Teams Sheetrock Applicator Relationship Specialty Start Date End Date Damaso Black MD [address] [facility] [address] [place] [address] PCP - General Family Medicine 11/22/22 Swapnil Lopez MD [address] [place] [address] Internal Medicine-Gastroenterology 02/16/22 Darío Rubio MD [address] [place] [address] [place] [address] Internal Medicine-Medical Oncology 12/11/23 Mya Naranjo MD [address] [place] [address] [place] [address] Family Medicine - Hospice And Palliative Medicine 01/04/24 Ashley Ordonez APRN [address] [place] [address] [place] [address] Nurse Practitioner 01/04/24 Nicole Melendez, RN Registered Nurse 01/04/24 Aislinn Viera, RN Registered Nurse 02/07/24 Ronit Conner, RN Registered Nurse 04/10/24 Armando Vieira MSW Agricultural Pilot 04/10/24 Vicki Amato, RN Registered Nurse 04/10/24 Trinh Bullock APRN [address] [place] [address] [place] [address] Nurse Practitioner Nurse Practitioner-Family 04/10/24 Selina Olsen APRN [address] [place] [address] Nurse Practitioner 04/10/24 Veda Mcfarland, Clerical Staff 05/14/24 documented as of this encounter
--- OUTSIDE RECORDS SUMMARY | 2024-08-15 13:47 | XMS_ITS | Encounter Summary ---
Author Organization [facility] [place] [address] Care Team Providers Care Importer Exporter Name Role Phone Swapnil Lopez MD Unavailable [phone] Damaso Black MD Primary Care Provider [phone] Darío Rubio MD Unavailable [phone] Mya Naranjo MD Unavailable [phone] Ashley Ordonez PROGRAM AIDE GROUP WORK Unavailable [phone] Nicole Melendez RN Unavailable Unavailable Aislinn Viera RN Unavailable Unavailable Ronit Conner RN Unavailable Unavailable Armando Vieira MILK BOTTLING MACHINE OPERATOR Unavailable Unavailable Vicki Amato RN Unavailable UnavailTrinh Soto PROGRAM AIDE GROUP WORK Unavailable [phone] Selina Olsen PROGRAM AIDE GROUP WORK Unavailable [phone] Veda Mcfarland Clerical Staff Unavailable U navailable Encounter Details Date Type Department Care Team (Latest Contact Info) Description 06/02/2024 Travel Social History Tobacco Use Types Packs/Day [...] PM EST Office Visit [facility] [address] [place] [address] Swapnil Lopez MD [address] [place] [address] 10/21/2024 2:00 PM EST Appointment [facility] MRI [address] [place] [address] Jacky Shirley MD [address] [place] [address] [place] [address] 10/23/2024 1:45 PM EST Appointment [place] [address] Olena Darby APRN 1 [facility] [place] [address] documented as of this encounter [...] documented as of this encounter Care Teams Importer Exporter Relationship Specialty Start Date End Date Damaso Black MD [facility] [place] [address] [place] [address] PCP - General Family Medicine 11/22/22 Swapnil Lopez MD [address] [place] [address] Internal Medicine-Gastroenterology 02/16/22 Darío Rubio MD [address] [place] [address] [place] [address] Internal Medicine-Medical Oncology 12/11/23 Mya Naranjo MD [address] [place] [address] [place] [address] Family Medicine - Hospice And Palliative Medicine 01/04/24 Ashley Ordonez APRN [address] [place] [address] [place] [address] Nurse Practitioner 01/04/24 Nicole Melendez, RN Registered Nurse 01/04/24 Aislinn Viera, RN Registered Nurse 02/07/24 Ronit Conner, RN Registered Nurse 04/10/24 Armando Vieira, ITA Straight Ruling Machine Operator 04/10/24 Vicki Amato, RN Registered Nurse 04/10/24 Trinh Bullock APRN [address] [facility] [place] [address] Nurse Practitioner Nurse Practitioner-Family 04/10/24 Selina Olsen APRN [address] [facility] [place] [address] Nurse Practitioner 04/10/24 Veda Mcfarland, Clerical Staff 05/14/24 documented as of this encounter
--- OUTSIDE RECORDS SUMMARY | 2024-08-15 13:48 | XMS_ITS | Encounter Summary ---
Author Organization [facility] Address [address] [place] [address] Care Team Providers Care Personal Coach Name Role Phone Swapnil Lopez MD Unavailable [phone] Damaso Black MD Primary Care Provider [phone] Darío Rubio MD Unavailable [phone] Mya Naranjo MD Unavailable [phone] Ashley Ordonez APRN Unavailable [phone] Nicole Melendez RN Unavailable Unavailable Aislinn Viera RN Unavailable Unavailable Reason for Visit * Reason Onset Date Comments Medication Refill 03/28/2024 Encounter Details Date Type Department Care Team (Late st Contact Info) Description 03/28/2024 Refill [facility] [address] [place] [address] Swapnil Lopez MD [address] [place] [address] Medication Refill Social History Tobacco [...] Assessment Author No 09/05/2017 11:13 AM LUCÍA Mercedes Gabby SHANNON * Is the person blind or [...] La Garza SHANNON documented in this encounter Ordered Prescriptions Prescription Sig Dispense Quantity Refills Last Filled Start Date End Date diphenoxylate-atro pine (LOMOTIL) 2.5-0.025 mg Oral TabletIndications: Crohn's disease of both small and large intestine without complication (HCC) TAKE 2 TABLETS BY MOUTH FOUR TIMES DAILY NEEDED. NO MORE THAN 8 TABLETS PER DAY 60 Tablet 3 03/28/2024 4 documented in this encounter Plan of Treatment Upcoming Encounters Date Type Department Care Team (Late st Contact Info) Description 09/11/2024 1:45 PM EST Office Visit [facility] [address] [place] [facility] [place] [address] Swapnil Lopez MD [address] [place] [address] 10/21/2024 2:00 PM EST Appointment [facility] [address] [place] [address] Jacky Shirley MD 1 [facility] [place] [address] 10/23/2024 1:45 PM EST Appointment [facility] [address] [place], [place] [phone] Olena Darby APRN 1 [facility] CANCER CARE [place], [place] [id number] documented as of this encounter Goals Goal [...] MORE THAN 8 TABLETS PER DAY Reorder 03/27/2024 03/28/2024 documented as of this encounter Additional Health Concerns Assessment Noted Time PHQ-9 Depression Total Score: 13 024 1:47 PM EDT PHQ-2 Depression Total Score: 3 12/29/19 24 1:47 PM EDT documented as of this encounter Care Teams Personal Coach Relationship Specialty Start Date End Date Damaso Black MD [address] [place] [address] PCP - General Family Medicine 11/22/22 Swapnil Lopez MD [address] [place] [address] Internal Medicine-Gastroenterology 02/16/22 Darío Rubio MD 1 [facility] [place] [address] Internal Medicine-Medical Oncology 12/11/23 Mya Naranjo MD [address] [place] [address] [place] [address] Family Medicine - Hospice And Palliative Medicine 01/04/24 Ashley Ordonez APRN [address] [place] [address] [place] [address] Nurse Practitioner 01/04/24 Nicole Melendez, RN Registered Nurse 01/04/24 Aislinn Viera, ANGE Registered Nurse 02/07/24 documented as of this encounter
--- OUTSIDE RECORDS SUMMARY | 2024-08-15 13:48 | XMS_ITS | Encounter Summary ---
Author Organization [place] [address] Care Team Providers Care Hand Molder Name Role Phone Swapnil Lopez MD Unavailable [phone] Damaso Black MD Primary Care Provider [phone] Darío Rubio MD Unavailable [phone] Mya Naranjo MD Unavailable [phone] Ashley Ordonez CERTIFIED CODER Unavailable [phone] Nicole Melendez RN Unavailable Unavailable Aislinn Viera RN Unavailable Unavailable Ronit Conner RN Unavailable Unavailable Armando Vieira GROCERY ASSOCIATE Unavailable Unavailable Vicki Amato RN Unavailable UnavailTrinh Soto CERTIFIED CODER Unavailable [phone] Selina Olsen CERTIFIED CODER Unavailable [phone] Reason for Referral * MRI/CAT Scan (Routine) - Closed Specialty Diagnoses / Procedures Referred By Contac t Referred To Contact Radiology Diagnoses Secondary malignant neoplasm of bone (HCC) Procedures MRI BRAIN W WO CONTRAST Heather Quiroz MD [address] [place] [address] Phone: tel: fax: [facility] [place] [address] Phone: tel: fax: Referral ID Status Reason Start Date Expiration Date Visits Re quested Visits Authorized [id number] Closed 01/12/2024 01/11/2025 1 1 Reason for Visit * MRI/CAT Scan (Routine) - Closed Specialty Diagnoses / Procedures Referred By Contac t Referred To Contact Radiology Diagnoses Secondary malignant neoplasm of bone (HCC) Procedures MRI BRAIN W WO CONTRAST Heather Quiroz MD [address] [place] [address] Phone: tel: fax: [facility] [place] [address] Phone: tel: fax: Referral ID Status Reason Start Date Expiration Date Visits Re quested Visits Authorized [id number] Closed 01/12/2024 01/11/2025 1 1 Encounter Details Date Type Department Care Team (Latest Contact Info) Description 04/15/2024 12:00 PM EDT - 04/15/2024 1:12 PM EDT Hospital Encounter [facility] [place] [address] Heather Quiroz MD [address] [place] [address] Secondary malignant neoplasm of bone (HCC) Discharge Disposition: Home or Self Care [...] mouth every 3 hours. 200 Capsule 01/24/2024 documented as of this encounter Discharge Disposition Disposition Code Departure Means Destination Home or Self Care documented in this encounter Plan of Treatment Upcoming Encounters Date Type Department Care Team (Late st Contact Info) Description 09/11/2024 1:45 PM EST Office Visit [facility] [address] [facility] [place] [address] Swapnil Lopez MD [address] [place] [address] 10/21/2024 2:00 PM EST Appointment [facility] [address] [place], [place] [phone] Jacky Shirley MD [address] [place] [address] [place] [address] 10/23/2024 1:45 PM EST Appointment [facility] [address] [place], [place] [phone] Olena Darby APRN 1 [facility] CANCER CARE [place], [place] [id number] documented as of this encounter Goals Goal [...] Procedure Name Priority Date/Time Associated Diagnosis Comments MRI BRAIN W WO CONTRAST Routine 04/15/2024 12:48 PM EDT Secondary malignant neoplasm of bone (HCC) documented in this encounter Results * MRI BRAIN W WO CONTRAST (04/15/2024 12:48 PM EDT) Anatomical Region Laterality Modality Head Magnetic Resonan ce 04/15/2024 12:4 8 PM EDT Impressions 04/15/2024 2:40 PM EDT Stable enhancing LEFT frontal bone enhancing mass now with some central necrosis. No new finding - Note: Radiology results need to be interpreted within a comprehensive clinical context. ??If you have questions about the radiology report, please contact the office of the ordering clinician. Narrative 04/15/2024 2:40 PM EDT MRI BRAIN W WO CONTRAST ??04/15/2024 12:48 PM ?? CLINICAL HISTORY: ??C79.51-Secondary malignant neoplasm of bone (HCC)-ICD-10-CM. COMPARISON: ??11/23/2023 PROCEDURE COMMENTS: Multiplanar multiecho MR imaging of the brain per protocol before and following IV contrast administration. Gadolinium contrast given as recorded in Epic. FINDINGS: ?? In the LEFT frontal bone calvarium is again noted. Centrally there is now some nonenhancing area compatible with central necrosis. No new enhancing masses calvarium. No new brain metastases identified The ventricles are midline. There are no extra-axial collections. Included portions of the paranasal sinuses, mastoids, and orbits unremarkable. Procedure Note Angel Beth MD - 04/15/2024 MRI BRAIN W WO CONTRAST 04/15/2024 12:48 PM CLINICAL HISTORY: C79.51-Secondary malignant neoplasm of bone(HCC)-ICD-10-CM. COMPARISON: 11/23/2023 PROCEDURE COMMENTS: Multiplanar multiecho MR imaging of the brain perprotocol before and following IV contrast administration. Gadolinium contrast givenas recorded in Epic. FINDINGS: In the LEFT frontal bone calvarium is again noted. Centrally there is nowsome nonenhancing area compatible with central necrosis. No new enhancingmasses calvarium. No new brain metastases identified The ventricles are midline. There are no extra-axial collections. Included portions of the paranasal sinuses, mastoids, and orbitsunremarkable. IMPRESSION: Stable enhancing LEFT frontal bone enhancing mass now with some central necrosis. No new finding - Note: Radiology results need to be interpreted within a comprehensiveclinical context. If you have questions about the radiology report, please contactthe office of the ordering clinician. 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 documented in this encounter Administered Medications Inactive Administered Medications - up to 1 most recent administrations Medication Order MAR Action Action Date Dose Rate Site gadoterate meglumine (DOTAREM) prefilled syringe 10 mL 10 mL, Intravenous, ONCE PRN, 1 dose, Starting on Mon04/15/24 at 1221, Until Mon04/15/24 at 1248, Radiology Procedure, VESICANT , MRI (Contrasts) Given 04/15/2024 12:48 PM EDT 10 mL sodium chloride 0.9% syringe Intravenous, ONCE PRN, 1 dose, Starting on Mon04/15/24 at 1221, Until Mon04/15/24 at 1249, Line Care, Flush peripheral lines every 12 hours, central lines every 8 hours, and after IV medication, MRI (Contrasts) Given 04/15/2024 12:49 PM EDT 10 mL documented in this encounter Additional Health Concerns Assessment Noted Time PHQ-9 Depression Total Score: 13 024 1:47 PM EDT PHQ-2 Depression Total Score: 3 12/29/19 24 1:47 PM EDT documented as of this encounter Care Teams Hand Molder Relationship Specialty Start Date End Date Damaso Black MD [address] [facility] [address] [place] [address] PCP - General Family Medicine 11/22/22 Swapnil Lopez MD [address] [place] [address] Internal Medicine-Gastroenterology 02/16/22 Darío Rubio MD [address] [place] [address] [place] [address] Internal Medicine-Medical Oncology 12/11/23 Mya Naranjo MD [address] [place] [address] [place] [address] Family Medicine - Hospice And Palliative Medicine 01/04/24 Ashley Ordonez APRN [address] [place] [address] [place] [address] Nurse Practitioner 01/04/24 Nicole Melendez, RN Registered Nurse 01/04/24 Aislinn Viera, RN Registered Nurse 02/07/24 Ronit Conner, RN Registered Nurse 04/10/24 Armando Vieira MSW Russian History Professor 04/10/24 Vicki Amato, RN Registered Nurse 04/10/24 Trinh Bullock APRN [address] [place] [address] [place] [address] Nurse Practitioner Nurse Practitioner-Family 04/10/24 Selina Olsen APRN 1 [facility] [address] Nurse Practitioner 04/10/24 documented as of this encounter
--- OUTSIDE RECORDS SUMMARY | 2024-08-15 13:48 | XMS_ITS | Encounter Summary ---
Author [place] [address] Care Team Providers Care Digital Media Director Name Role Phone Swapnil Lopez MD Unavailable [phone] Damaso Black MD Primary Care Provider [phone] Darío Rubio MD Unavailable [phone] Mya Naranjo MD Unavailable [phone] Ashley Ordonez SECURITY TEST ENGINEER Unavailable [phone] Nicole Melendez RN Unavailable Unavailable Aislinn Viera RN Unavailable Unavailable Ronit Conner RN Unavailable Unavailable Armando Vieira WASTE DISPOSAL PLANT OPERATOR Unavailable Unavailable Vicki Amato RN Unavailable UnavailTrinh Soto SECURITY TEST ENGINEER Unavailable [phone] Selina Olsen SECURITY TEST ENGINEER Unavailable [phone] Reason for Visit * Reason Onset Date Comments Schedule Appointment 03/28/2024 follow up Encounter Details Date Type Department Care Team (Late st Contact Info) Description 03/28/2024 Telephone [facility] Medical Oncology [place] [phone] Darío Rubio MD [address] [place], [place] [phone] Schedule Appointment (follow up) Social History Tobacco Use Types Packs/Day Years [...] Encounter - Nikky Virgen, Clerical Staff - 04/02/2024 11:48 AM EDT Called pt to schedule appt. Pt agreed to scheduled appt times. * Telephone Encounter - Nikky Virgen, Elierical Staff - 04/01/2024 10:18 AM EDT LVM advising pt to call [phone] to schedule appt with LODGE SALES ASSOCIATE. * Telephone Encounter - Nikky Virgen Clerical Staff - 03/29/2024 2:45 PM EDT LVM advising pt to call [phone] to schedule appt with LODGE SALES ASSOCIATE. * Telephone Encounter - Aislinn Viera, ANGE - 03/29/2024 12:23 PM EDT LODGE SALES ASSOCIATE would be fine * Telephone Encounter - Nikky Virgen Clerical Staff - 03/29/2024 12:11 PM EDT The only day the pt could come in is on 04/[address] Rubio is full. Could she see an KENISHA or do a VV? * Telephone Encounter - Nikky Virgen Clerical Staff - 03/28/2024 3:23 PM EDT LVM for pt to call [phone] to schedule appt. * Telephone Encounter - Aislinn Viera, ANGE - 03/28/2024 3:20 PM EDT Let's have her follow up with Ramiro week of 04/15 when he's back. * Telephone Encounter - Nikky Virgen Clerical Staff - 03/28/2024 2:[address] Rubio is on vacation that wk. Is she ok to see an KENISHA? * Telephone Encounter - Aislinn Viera RN - 03/28/2024 1:35 PM EDT Patient needs follow up around 04/09. Please call and schedule. documented in this encounter Plan of Treatment Upcoming Encounters Date Type Department Care Team (Late st Contact Info) Description 09/11/2024 1:45 PM EST Office Visit [facility] [address] [place] [facility] [place] [address] Swapnil Lopez MD [address] [facility] [place] [address] 10/21/2024 2:00 PM EST Appointment [facility] MRI [address] [facility] [place] [address] Jacky Shirley MD [address] [place] [address] [place], [place] [id number] 10/23/2024 1:45 PM EST Appointment [facility] [place] [address] Olena Darby APRN [address] [place] [phone] documented as of this encounter Goals Goal Patient Goal Type Associated Problems Recent Progress Patient-Stated? Author Breast Health Breast Health Mary Kate Vázquez, RN Note: Patient acknowledges understanding of new diagnosis, plan of care, available resources and how to contact Nurse Navigator with any future questions or concerns. Maintain a healthy diet, exercise regularly and maintain an ideal body weight Linda Aldana, RMA documented as of this encounter Visit Diagnoses Not on filedocumented in this encounter Additional Health Concerns Assessment Noted Time PHQ-9 Depression Total Score: 13 12/28/ 024 1:47 PM EDT PHQ-2 Depression Total Score: 3 12/29/19 24 1:47 PM EDT documented as of this encounter Care Teams Digital Media Director Relationship Specialty Start Date End Date Damaso Black MD 100[address] [facility] [address] [place] [address] PCP - General Family Medicine 11/22/22 Swapnil Lopez MD [address] [place] [address] Internal Medicine-Gastroenterology 02/16/22 Darío Rubio MD [address] [place] [address] [place] [address] Internal Medicine-Medical Oncology 12/11/23 Mya Naranjo MD [address] [place] [address] [place] [address] Family Medicine - Hospice And Palliative Medicine 01/04/24 Ashley Ordonez APRN [address] [facility] [place] [address] Nurse Practitioner 01/04/24 Nicole Melendez, RN Registered Nurse 01/04/24 Aislinn Viera, RN Registered Nurse 02/07/24 Ronit Conner, RN Registered Nurse 04/10/24 Armando Vieira MSW Physiatrist 04/10/24 Vicki Amato, RN Registered Nurse 04/10/24 Trinh Bullock, YON [address] [facility] [place] [address] Nurse Practitioner Nurse Practitioner-Family 04/10/24 Selina Olsen APRN [address] [facility] [place] [address] Nurse Practitioner 04/10/24 documented as of this encounter
--- OUTSIDE RECORDS SUMMARY | 2024-08-15 13:48 | XMS_ITS | Encounter Summary ---
Author Organization [place] [address] Care Team Providers Care Head Turbine Operator Name Role Phone wSapnil Lopez MD Unavailable Damaso Black MD Primary Care Provider [phone] Darío Rubio MD Unavailable [phone] Mya Naranjo MD Unavailable [phone] Ashley Ordonez SEWING PATTERN LAYOUT TECHNICIAN Unavailable [phone] Nicole Melendez RN Unavailable Unavailable Aislinn Viera RN Unavailable Unavailable Ronit Conner RN Unavailable Unavailable Armando Vieira PATIENT FINANCIAL SPECIALIST Unavailable Unavailable Vicki Amato RN Unavailable UnavailTrinh Soto SEWING PATTERN LAYOUT TECHNICIAN Unavailable [phone] Selina Olsen SEWING PATTERN LAYOUT TECHNICIAN Unavailable [phone] Reason for Visit * Reason Onset Date Comments Advice Only 04/11/2024 No answer. KARI l eft Encounter Details Date Type Department Care Team (Late st Contact Info) Description 04/11/2024 Telephone [facility] [place] [address] Ronit Conner, health records technology teacher Only (No answer. VMM left) Social History Tobacco Use Types Packs/Day Years [...] of Assessment Author No 09/05/2017 11:13 AM Yolis De La Garzaerika RMA * Does this person have serious difficulty walking or climbing stairs? Answer Date of Assessment Author No 09/05/2017 11:13 AM Gabby De La Garza, RMA * Does this person have difficulty dressing or bathing? Answer Date of Assessment Author No 09/05/2017 11:13 AM Gabby De La Garza RMA * Because of a physical, mental or emotional condition, does this person have difficulty doing errands alone such as visiting a doctor's office or shopping? Answer Date of Assessment Author No 09/05/2017 11:13 AM LUCÍA Mercedes Gabby, RMGena documented as of this encounter Mental Status * Because of a physical, mental or emotional condition, does this person have serious difficulty concentrating, remembering or making decisions? Answer Entry Date Author No 09/05/2017 11:13 AM Gabby De La Garza RMA documented in this encounter Miscellaneous Notes * Telephone Encounter - Ronit Conner RN - 04/11/2024 2:30 PM EDT Call placed to patient regarding multiple contacts with the PC team regarding her pain medication and symptom management. Call went to and message left, reiterating we would not be able to make any changes to her medication regime until seen at her next appointment and if pain becomes too difficult to manage, to go to the ED. Ronit Conner RN * Telephone Encounter - Ronit Conner RN - 04/11/2024 2:26 PM EDT ----- Message from [employer] sent at 04/11/2024 1:38 PM EDT ----- Regarding: Pain Contact: So I'm supposed to lay here another week. There's something seriously wrong here. documented in this encounter Plan of Treatment Upcoming Encounters Date Type Department Care Team (Late st Contact Info) Description 09/11/2024 1:45 PM EST Office Visit [facility] [address] [place] [address] Swapnil Lopez MD [address] [facility] [place] [address] 10/21/2024 2:00 PM EST Appointment [facility] MRI [address] [facility] [place] [address] Jacky Shirley MD [address] [place] [address] [place], [place] [id number] 10/23/2024 1:45 PM EST Appointment [facility] [place] [place] [address] Olena Darby APRN [address] [place] [address] [id number] documented as of this encounter Goals Goal [...] documented as of this encounter Care Teams Head Turbine Operator Relationship Specialty Start Date End Date Damaso Black MD [address] [place] [address] PCP - General Family Medicine 11/22/22 Swapnil Lopez MD [address] [place] [phone] Internal Medicine-Gastroenterology 02/16/22 Darío Rubio MD [address] [place] [address] [place] [address] Internal Medicine-Medical Oncology 12/11/23 Mya Naranjo MD [address] [place] [address] [place] [address] Family Medicine - Hospice And Palliative Medicine 01/04/24 Ashley Ordonez APRN [address] [place] [address] [place] [address] Nurse Practitioner 01/04/24 Nicole Melendez, RN Registered Nurse 01/04/24 Aislinn Viera, RN Registered Nurse 02/07/24 Ronit Conner, RN Registered Nurse 04/10/24 Armando Vieira MSW [employer] Teacher 04/10/24 Vicki Amato, RN Registered Nurse 04/10/24 Trinh Bullock APRN [address] [place] [address] [place] [address] Nurse Practitioner Nurse Practitioner-Family 04/10/24 Selina Olsen APRN [address] [facility] [place] [address] Nurse Practitioner 04/10/24 documented as of this encounter
--- OUTSIDE RECORDS SUMMARY | 2024-08-15 13:48 | XMS_ITS | Encounter Summary ---
Author Organization [place] [address] Care Team Providers Care Fruit Raiser Name Role Phone Swapnil Lopez MD Unavailable [phone] Damaso Black MD Primary Care Provider [phone] Darío Rubio MD Unavailable [phone] Mya Naranjo MD Unavailable [phone] Ashley Ordonez FRUIT PEELER Unavailable [phone] Nicole Melendez RN Unavailable Unavailable Aislinn Viera RN Unavailable Unavailable Reason for Visit * Reason Onset Date Comments Medication Refill 03/20/2024 Encounter Details Date Type Department Care Team (Late st Contact Info) Description 03/20/2024 Refill [facility] [place] [phone] Ashley Ordonez, FRUIT PEELER [address] [place], [place] [id number] Medication Refill Social History Tobacco Use Types [...] Assessment Author No 09/05/2017 11:13 AM LUCÍA Daren SHANNON Pierre * Does this person have serious difficulty walking or climbing stairs? Answer Date of Assessment Author No 09/05/2017 11:13 AM LUCÍA Mercedes SHANNON Pierre * Does this person have difficulty dressing or bathing? Answer Date of Assessment Author No 09/05/2017 11:13 AM LUCÍA Mercedes YolisGabbySHANNON james * Because of a physical, mental or [...] Refills Last Filled Start Date End Date traMADoL 100 mg Oral TabletIndications: Invasive ductal carcinoma of breast, left (HCC) Take 1 Tablet by mouth every 4 hours as needed for Pain for up to 30 days. MAX OF 3 TABLETS PER DAY 90 Tablet 03/22/2024 documented in this encounter Miscellaneous Notes * Telephone Encounter - Ashley Ordonez APRN - 03/20/2024 3:48 PM EDT Refill on Tramadol documented in this encounter Plan of Treatment Upcoming Encounters Date Type Department Care Team (Late st Contact Info) Description 09/11/2024 1:45 PM EST Office Visit [facility] [address] [place], [place] [phone] Swapnil Lopez MD [address] [place] [address] 10/21/2024 2:00 PM EST Appointment [facility] MRI [address] [place], [place] [address] Jacky Shirley MD [address] [facility] CANCER [place], [place] [id number] 10/23/2024 1:45 PM EST Appointment [facility] [address] [place], [place] [id number] Olena Darby APRN [address] [place] [address] [id number] documented as of this encounter Goals Goal Patient Goal Type Associated Problems Recent Progress Patient-Stated? Author Breast [facility] Mary Kate Vázquez, RN Note: [...] Discontinue Reason Start Date End Da te traMADoL (ULTRAM) 50 mg Oral TabletIndications:Invasi ve ductal carcinoma of breast, left (HCC) Take 2 Tablets by mouth every 4 hours as needed for Pain for up to 30 days. MAX OF 6 TABLETS PER DAY Reorder 02/22/2024 03/20/2024 documented as of this encounter Additional Health Concerns Assessment Noted Time PHQ-9 Depression Total Score: 13 024 1:47 PM EDT PHQ-2 Depression Total Score: 3 12/29/19 24 1:47 PM EDT documented as of this encounter Care Teams Fruit Raiser Relationship Specialty Start Date End Date Damaso Black MD [address] [place] [address] PCP - General Family Medicine 11/22/22 Swapnil Lopez MD [address] [place] [phone] Internal Medicine-Gastroenterology 02/16/22 Darío Rubio MD [address] [place] [address] [place] [address] Internal Medicine-Medical Oncology 12/11/23 Mya Naranjo MD [address] [place] [address] [place] [address] Family Medicine - Hospice And Palliative Medicine 01/04/24 Ashley Ordonez APRN [address] [place] [address] [place] [address] Nurse Practitioner 01/04/24 Nicole Melendez, RN Registered Nurse 01/04/24 Aislinn Viera, ANGE Registered Nurse 02/07/24 documented as of this encounter
--- OUTSIDE RECORDS SUMMARY | 2024-08-15 13:48 | XMS_ITS | Encounter Summary ---
Author Organization [place] [address] Care Team Providers Care Ocular Care Aide Name Role Phone Swapnil Lopez MD Unavailable [phone] Damaso Black MD Primary Care Provider [phone] Darío Rubio MD Unavailable [phone] Mya Naranjo MD Unavailable [phone] Ashley Ordonez GROUNDING ENGINEER Unavailable [phone] Nicole Melendez RN Unavailable Unavailable Aislinn Viera RN Unavailable Unavailable Ronit Conner RN Unavailable Unavailable Armando Vieira BEEF GRINDER Unavailable Unavailable Vicki Amato RN Unavailable UnavailTrinh Soto GROUNDING ENGINEER Unavailable [phone] Selina Olsen GROUNDING ENGINEER Unavailable [phone] Reason for Visit * Reason Onset Date Comments Medication Management 04/19/2024 Tramadol - PATIENT IS CURRENTLY AT THE PHARMACY Encounter Details Date Type Department Care Team (Late st Contact Info) Description 04/19/2024 [facility]phone [facility] [place] [address] Mya Naranjo MD [address] [place] [id number] Medication Management (Tramadol - PATIENT IS CURRENTLY AT THE PHARMACY) Social History Tobacco Use Types Packs/Day Years [...] Telephone Encounter - Vicki Amato RN - 04/19/2024 3:42 PM EDT RN called [facility] in [place] to inform them to deactivate the Tramadol script patient was at [facility] pharmacy. RN called and confirmed with [facility] pharmacy they are filling the Tramadol script now Vicki Amato RN * Telephone Encounter - Tessa Dotson, Clerical Staff - 04/19/2024 3:36 PM EDT Reason for call: PATIENT IS CURRENTLY AT THE PHARMACY Marleni's prescription for Tramadol was sent to [facility] in [place], and [facility] Phone: [phone] Preferred call back number:[phone] documented in this encounter Plan of Treatment Upcoming Encounters Date Type Department Care Team (Late st Contact Info) Description 09/11/2024 1:45 PM EST Office Visit [facility] [address] [place] [address] Swapnil Lopez MD [address] [place] [phone] 10/21/2024 2:00 PM EST Appointment [facility] MRI [address] [place] [address] Jacky Shirley MD [address] [place] [address] [place], [place] [id number] 10/23/2024 1:45 PM EST Appointment [facility] [place] [place] [address] Olena Darby APRN [address] [place] [address] [place], [place] [phone] documented as of this encounter Goals Goal [...] documented as of this encounter Care Teams Ocular Care Aide Relationship Specialty Start Date End Date Damaso Black MD [address] [facility] [address] [place] [address] PCP - General Family Medicine 11/22/22 Swapnil Lopez MD [address] [place] [phone] Internal Medicine-Gastroenterology 02/16/22 Darío Rubio MD [address] [place] [address] [place] [address] Internal Medicine-Medical Oncology 12/11/23 Mya Naranjo MD [address] [place] [address] [place] [address] Family Medicine - Hospice And Palliative Medicine 01/04/24 Ashley Ordonez APRN [address] [place] [address] [place] [address] Nurse Practitioner 01/04/24 Nicole Melendez, RN Registered Nurse 01/04/24 Aislinn Viera, RN Registered Nurse 02/07/24 Ronit Conner, RN Registered Nurse 04/10/24 Armando Vieira MSW Stenotype Machine Operator 04/10/24 Vicki Amato, RN Registered Nurse 04/10/24 Trinh Bullock APRN [address] [facility] [place] [address] Nurse Practitioner Nurse Practitioner-Family 04/10/24 Selina Olsen APRN [address] [facility] [place] [address] Nurse Practitioner 04/10/24 documented as of this encounter
--- OUTSIDE RECORDS SUMMARY | 2024-08-15 13:48 | XMS_ITS | Encounter Summary ---
Author Organization [place] [address] Care Team Providers Care Sdet Name Role Phone Swapnil Lopez MD Unavailable [phone] Damaso Black MD Primary Care Provider [phone] Darío Rubio MD Unavailable [phone] Mya Naranjo MD Unavailable Ashley Ordonez FINANCIAL HEALTH COUNSELOR Unavailable [phone] Nicole Melendez RN Unavailable Unavailable Aislinn Viera RN Unavailable Unavailable Ronit Conner RN Unavailable Unavailable Armando Vieira MOBILE MECHANIC Unavailable Unavailable Vicki mAato RN Unavailable UnavailTrinh Soto FINANCIAL HEALTH COUNSELOR Unavailable [phone] Selina Olsen FINANCIAL HEALTH COUNSELOR Unavailable [phone] Reason for Referral * Consultation (Routine) - Pending Review Specialty Diagnoses / Procedures Referred By Contac t Referred To Contact Diagnoses Cancer related pain Crohn's disease with complication, unspecified gastrointestinal tract location (HCC) Procedures AL OFFICE/OP CONSLTJ NEW/EST PT MOD MDM 40 MINUTES Ashley Ordonez APRN [address] [place] [address] Phone: tel: fax: Nico Edmondson MD [address] [place] [address] Phone: tel: fax: Referral ID Status Reason Start Date Expiration Date Visits Requested Visits Authorized [id number] Pending Review Specialty Services Required 04/19/2024 04/19/2025 1 1 Scheduling Instructions Please contact her at home to schedule appt Reason for Visit * Reason Comments Follow-up Encounter Details Date Type Department Care Team (Latest Contact Info) Description 04/19/2024 1:23 PM EDT - 04/19/2024 2:00 PM EDT Hospital Encounter [facility] [place] [address] [phone] Heather Quiroz MD [address] [place] [address] Ashley Ordonez APRN [address] [place] [address] Armando Vieira MSW Palliative care by specialist (Primary Dx); Cancer related pain; Invasive ductal carcinoma of breast, left (HCC); Secondary malignant neoplasm of bone (HCC); Crohn's disease with complication, unspecified gastrointestinal tract location (HCC) Discharge Disposition: Home or Self Care [...] Sign Reading Time Taken Comments Blood Pressure 159/98 04/19/2024 1:54 PM EDT Pulse 67 04/19/2024 1:54 PM EDT Temperature 36.3 ??C (97.3 ??F) 04/19/2024 1:54 PM ED T Respiratory Rate - - Oxygen Saturation 98% 04/19/2024 1:54 PM EDT Inhaled Oxygen Concentration - - Weight 58.2 kg (128 lb 6.4 oz) 04/19/2024 1:54 P M EDT Height - - Body Mass Index 23.48 04/15/2024 1:15 PM EDT documented in this encounter Functional [...] Capsule 01/24/2024 documented as of this encounter Ordered Prescriptions Prescription Sig Dispense Quantity Refills Last Filled Start Date End Date traMADoL (ULTRAM) 50 mg Oral TabletIndications: Invasive ductal carcinoma of breast, left (HCC) Take 2 Tablets by mouth every 4 hours as needed for Pain for up to 30 days. 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 Treatment delayed by remote 6 month incarceration, but she is now back home. 43 year hx of Crohn's/multiple GI surgeries/rectal fistula appt 01/[address] Fry. Chronic pain related to Crohn's, was seeing Dr Rankin, at [facility], but is not interested in going back there as they told her last week when she contacted them that they did not feel comfortable prescribing for her with stage IV cancer. Neuro consult cancelled as blackouts ceased. She continues to complain of increased pain over the last few months and tells me she has been taking 2 extra tabs of Tramadol daily. We discussed today that she would like to find a new chronic pain management doctor and that I would send a referral to Dr. Edmondson. In the meantime, I will continue to prescribe the current opioid regimen that she has been taking. I educated her that palliative care treats her cancer pain,but the Crohn's pain is chronic and long-term and that should be managed by a chronic pain MD. ASSESSMENT Cancer related pain: complicated by chronic pain due to Crohn's disease. Continue current pain regimen of Tramadol 100 mg every 4 hours as needed, MAX 3 tabs/day (#90; 04/19/24). Sent referral to Dr. Edmondson today as she is not interested in going back to Dr. Rankin. Naloxone ordered previously Opioid induced Constipation: having intermittent diarrhea, has Lomotil for Crohn's and this helps some Mood: Last PHQ-9=13; Last IRMA-7=11; no change in moods; will monitor Nausea: denies; has Zofran and Phenergan as needed Appetite/weight loss: 128# at last in-person visit; She has told me her weight is normally in the 120's. Advance Care Planning: completed previously Goals of Care: complete cancer treatments, return to work, keep Crohn's stable Psychosocial distress: remote incarceration, legal issues, financial insecurity see [facility] SW notes Spiritual distress: no needs identified today Follow up in 4 weeks in-person; coordinate with Dr Rubio visit Safety: ORT 0, monthly visits, controlled sub agreement completed previously; UDS PRN per protocol,IZZY review today at 04/19/24 Naloxone per clinic guidelines PROBLEM LIST Patient Active Problem List Diagnosis Date Noted Secondary malignant neoplasm of bone (HCC) 01/10/2024 Palliative care by specialist 12/29/2023 Cancer related pain 12/29/2023 Invasive ductal carcinoma of breast, left (HCC) 10/30/2023 De Quervain's tenosynovitis 03/24/2021 De Quervain thyroiditis 02/05/2021 De Quervain's tenosynovitis, left 02/05/2021 Ulcer of great toe, left, with necrosis of muscle (HCC) 11/10/2017 Crohn's disease of colon with complication ([facility]) 11/10/2017 Laceration of left great toe without foreign body present or damage to nail 11/10/2017 Anxiety and depression 07/25/2017 Food impaction of esophagus 06/25/2016 Exacerbation of Crohn's disease ([facility]) 04/02/2015 Alcoholism ([facility]) Crohn's History of stomach cancer Depression ONCOLOGY HISTORY Oncology History Invasive ductal carcinoma of breast, [...] 68 gene panel testing results were negative. SYMPTOM ASSESSMENT Physical Cancer pain: mild left breast pain getting better since on estrogen treatment, chronic pain due to Crohn's takes 3 tablets of Tramadol 100 tabs a day for about 5 years now. She has actually been taking 4-5 doses per day, not 3 doses daily. And her pain obviously increases when she is running out a week early and having significant pain that lasts a week before she is due for her refill again. She has been reminded to take her medicine as prescribed and that we will not be increasing it. She would like a new pain MD referral and we spoke about sending one to Dr. Edmondson. Her entire body aches, but most of her pain is in her mid to lower back. She is also having headaches s/p XRT to left frontal bone. Denies pain in her breast bone. Dyspnea: denies Anorexia/weight loss: 126# at last in-person visit; Today she weighs 128#. Nausea/vomiting: denies nausea; has Zofran and Phenergan if needed Constipation/diarrhea: +Crohn's disease; has Lomotil as needed for frequent diarrhea and this helps Fatigue and sleep/wake disturbances: chronic insomnia; per notes she takes Melatonin; denies excessive fatigue (does not ever take naps). When she runs out of pain meds she does not sleep well for that week. Other: states had black out spells, but they stopped so previously ordered Neuro consult was cancelled Emotional/Psychological Depression/demoralization/despair: Last PHQ-9=13; no changes in mood Anxiety: Last IRMA-7=11; denies heightened anxiety Family/Social/Interpersonal , 1 son, lives with her parents [place] farm, [facility]ience[facility], recent 6 month incarceration states she was wrongfully accused and is in litigation currently. Spiritual/Restorationist No needs identified today REVIEW OF SYSTEMS The focused ROS done at each visit includes the symptoms listed above in subjective section (including standard questionnaires as appropriate) and overall distress (including review of NCCN distress scale). All other systems reviewed and are negative. PERTINENT HISTORY AND BACKGROUND INFORMATION Past Medical History: Diagnosis Date Anemia Breast cancer (HCC) Cancer (HCC) Crohn disease (HCC) Encounter for blood transfusion Lab test positive for detection of COVID-19 virus 02/12/2021 02/16/21=pt stated that she tested COVID positive on 02/12/21 @ [facility], instructed pt to notify Dr Lantigua's office to reschedule surgery Past Surgical History: Procedure Laterality Date ANTERIOR COMPARTMENT DECOMPRESSION Left 04/15/2021 LEFT DEQUERVAINS RELEASE ; Surgeon: Henry Lantigua MD; Location: [facility]; Service: Hand BREAST BIOPSY Left 10/26/2023 2:00 BREAST BIOPSY Left 10/26/2023 axilla node SECTION x2 COLON SURGERY x11 crohns COLONOSCOPY COLOSTOMY ILEOSTOMY OR JEJUNOSTOMY UPPER GASTROINTESTINAL ENDOSCOPY N/A 06/25/2016 ESOPHAGOGASTRODUODENOSCOPY with biopsy with conscious sedation; Surgeon: Christopher Matthews MD PHD; Location: [facility]; Service: Endoscopy Family History Problem Relation Age of Onset Heart Disease Father Social History Socioeconomic History Marital status: Spouse name: Not on file Number of children: Not on file Years of education: Not on file Highest education level: Not on file Occupational History Not on file Tobacco Use Smoking status: Never Smokeless tobacco: Never Vaping Use Vaping status: Never Used Substance and Sexual Activity Alcohol use: Not Currently Drug use: No Sexual activity: Not on file Other Topics Concern Not on file Social History Narrative Not on file Social Determinants of Health Financial Resource Strain: Not on file Food Insecurity: Not on file Transportation Needs: Not on file Physical Activity: Not on file Stress: Not on file Social Connections: Not on file Intimate Partner Violence: Not on file Housing Stability: Not on file Current Outpatient Medications Medication Sig Dispense Refill anastrozole (ARIMIDEX) 1 mg Oral Tablet Take 1 Tablet by mouth daily. Take with or without food 30 Tablet 11 diphenoxylate-atropine (LOMOTIL) 2.5-0.025 mg Oral Tablet TAKE 2 TABLETS BY MOUTH FOUR TIMES DAILY NEEDED. NO MORE THAN 8 TABLETS PER DAY (Patient not taking: Reported on 04/15/2024) 60 Tablet 3 diphenoxylate-atropine (LOMOTIL) 2.5-0.025 mg Oral Tablet TAKE 2 TABLETS BY MOUTH FOUR TIMES DAILY NEEDED. NO MORE THAN 8 TABLETS PER DAY 240 Tablet 0 loperamide (IMODIUM) 2 mg Oral Capsule Take 1 Capsule by mouth every 3 hours. 200 Capsule 0 predniSONE (DELTASONE) 10 mg Oral Tablet Take 1 Tablet by mouth daily. 90 Tablet 3 promethazine (PHENERGAN) 12.5 mg Oral Tablet Take by mouth every 6 hours as needed for Nausea. ribociclib (KISQALI) 400 mg/day (200 mg x 2) Oral Tablet Take 2 tablets by mouth daily for 21 days followed by 7 days off 42 Tablet 0 traMADoL 100 mg Oral Tablet Take 1 Tablet by mouth every 4 hours as needed for Pain for up to 30 days. MAX OF 3 TABLETS PER DAY 90 Tablet 0 triamcinolone (KENALOG) 0.1 % Top Cream Apply topically 3 times daily. 80 g 0 No current facility-administered medications for this visit. Allergies Allergen Reactions Fat Wedidtua-Zkobz-Mjv-Lipid Rash and Myalgia Zozfh-Dxlmp-8-Aqo-Lcp-Bpoepi Hives Sulfa (Sulfonamide Antibiotics) PHYSICAL EXAMINATION General: Seamus appears alert, in no acute distress Head: normocephalic and atraumatic Neck: supple, midline trachea Lungs: non-labored breathing, symmetrical chest expansion Heart: regular rate and rhythm, no edema Abdomen: not distended, soft Skin: warm, dry Neurological: alert and oriented Psych: calm, pleasant, appropriate affect Ashley Ordonez APRN, [facility] I spent 29 minutes today, preparing to see the patient, review and documentation, as well as time spent with the patient, evaluation and treatment. documented in this encounter Miscellaneous Notes * Addendum Note - Mya Naranjo MD - 04/19/2024 1:30 PM EDTEncounter addended by: Mya Naranjo MD on: 04/19/2024 3:39 PM Actions taken: Pharmacy for encounter modified, Actions taken from a BestPractice Advisory, Order list changed, Diagnosis association updated documented in this encounter Plan of Treatment Upcoming Encounters Date Type Department Care Team (Late st Contact Info) Description 09/11/2024 1:45 PM EST Office Visit [facility] [address] [place] [facility] [place] [address] Swapnil Lopez MD [address] [address] 10/21/2024 2:00 PM EST Appointment [facility] [address] [place] [address] Jacky Shirley MD [address] [place] [address] [place] [address] 10/23/2024 1:45 PM EST Appointment [facility] [place] [address] Olena Darby APRN [address] [place] [address] [id number] Scheduled Referrals Name Type Priority Associated Diagnoses Orde r Schedule AMB REFERRAL TO PAIN CLINIC Outpatient Referral Routine Cancer related pain Crohn's disease with complication, unspecified gastrointestinal tract location (HCC) Ordered: 04/19/2024 documented as of this encounter Goals Goal [...] as of this encounter Visit Diagnoses Diagnosis Palliative care by specialist- Primary Cancer related pain Neoplasm related pain (acute) (chronic) Invasive ductal carcinoma of breast, 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 MAX OF 3 TABLETS PER DAY Reorder 04/19/2024 04/19/2024 documented as of this encounter Additional Health Concerns Assessment Noted Time PHQ-9 Depression Total Score: 13 024 1:47 PM EDT PHQ-2 Depression Total Score: 3 12/29/19 24 1:47 PM EDT documented as of this encounter Care Teams Sdet Relationship Specialty Start Date End Date Damaso Black MD [address] [facility] [address] [place] [address] PCP - General Family Medicine 11/22/22 Swapnil Lopez MD [address] [place] [id number] Internal Medicine-Gastroenterology 02/16/22 Darío Rubio MD [address] [place] [address] [place] [address] Internal Medicine-Medical Oncology 12/11/23 Mya Naranjo MD [address] [place] [address] Family Medicine - Hospice And Palliative Medicine 01/04/24 Ashley Ordonez APRN [address] [place] [address] [place] [address] Nurse Practitioner 01/04/24 Nicole Melendez, RN Registered Nurse 01/04/24 Aislinn Viera, RN Registered Nurse 02/07/24 Ronit Conner, RN Registered Nurse 04/10/24 Armando Vieira, MOBILE MECHANIC Fashion Stylist 04/10/24 Vicki Amato, RN Registered Nurse 04/10/24 Trinh Bullock APRN [address] [facility] [place] [address] Nurse Practitioner Nurse Practitioner-Family 04/10/24 Selina Olsen APRN [address] [place] [address] [place] [address] Nurse Practitioner 04/10/24 documented as of this encounter
--- OUTSIDE RECORDS SUMMARY | 2024-08-15 13:48 | XMS_ITS | Encounter Summary ---
[facility] Address [address] [place] [address] Care Team Providers Care Chemical Milling Processor Name Role Phone Swapnil Lopez MD Unavailable [phone] Damaso Black MD Primary Care Provider [phone] Darío Rubio MD Unavailable [phone] Mya Naranjo MD Unavailable [phone] Ashley Ordonez APRN Unavailable [phone] Nicole Melendez RN Unavailable Unavailable Aislinn Viera RN Unavailable Unavailable Reason for Visit * Reason Onset Date Comments Medication Refill 04/03/2024 Encounter Details Date Type Department Care Team (Late st Contact Info) Description 04/03/2024 Refill [facility] [address] [place] [address] Swapnil Lopez MD [address] [place] [address] Medication Refill Social History Tobacco [...] 11:13 AM LUCÍA Mercedes SHANNON Pierre * Is the person blind or does [...] Refills Last Filled Start Date End Date predniSONE (DELTASONE) 10 mg Oral Tablet Take 1 Tablet by mouth daily. 90 Tablet 3 04/03/2024 07/26/2024 documented in this encounter Plan of Treatment Upcoming Encounters Date Type Department Care Team (Late st Contact Info) Description 09/11/2024 1:45 PM EST Office Visit [facility] [address] [place] [address] Swapnil Lopez MD [address] [place] [address] 10/21/2024 2:00 PM EST Appointment [facility] [address] [place] [address] Jacky Shirley MD [address] [place] [address] [place] [address] 10/23/2024 1:45 PM EST Appointment [facility] [place] [place] [address] Olena Darby APRN [address] [facility] [place], [place] [id number] documented as of this encounter Goals Goal [...] Diagnoses Not on filedocumented in this encounter Discontinued Medications Medication Sig Discontinue Reason Start Date End Da te predniSONE (DELTASONE) 10 mg Oral Tablet Take 1 Tablet by mouth daily. Reorder 07/28/2022 04/03/2024 documented as of this encounter Additional Health Concerns Assessment Noted Time PHQ-9 Depression Total Score: 13 024 1:47 PM EDT PHQ-2 Depression Total Score: 3 12/29/19 24 1:47 PM EDT documented as of this encounter Care Teams Chemical Milling Processor Relationship Specialty Start Date End Date Damaso Black MD [address] [address] PCP - General Family Medicine 11/22/22 Swapnil Lopez MD [address] [place] [address] Internal Medicine-Gastroenterology 02/16/22 Darío Rubio MD [address] [facility] [address] Internal Medicine-Medical Oncology 12/11/23 Mya Naranjo MD [address] [place] [address] Family Medicine - Hospice And Palliative Medicine 01/04/24 Ashley Ordonez APRN [address] [facility] [address] Nurse Practitioner 01/04/24 Nicole Melendez, RN Registered Nurse 01/04/24 Aislinn Viera RN Registered Nurse 02/07/24 documented as of this encounter
--- OUTSIDE RECORDS SUMMARY | 2024-08-15 13:48 | XMS_ITS | Encounter Summary ---
Author Organization [place] [address] Care Team Providers Care Decorating Instructor Name Role Phone Swapnil Lopez MD Unavailable [phone] Damaso Black MD Primary Care Provider [phone] Darío Rubio MD Unavailable [phone] Mya Naranjo MD Unavailable [phone] Ashley Ordonez APRN Unavailable [phone] Nicole Melendez RN Unavailable Unavailable Aislinn Viera RN Unavailable Unavailable Reason for Visit * Reason Onset Date Comments Medication Problem 03/22/2024 Patient warren d and didn't get the correct mg for the traMADoL 100 mg Oral Tablet script. They gave her 50 mg Encounter Details Date Type Department Care Team (Late Contact Info) Description 03/22/2024 Telephone [facility] [place] [address] Paul Alonzo MD [address] [facility] [place] [address] Medication Problem (Patient called and didn't get the correct mg for the traMADoL 100 mg Oral Tablet script. They gave her 50 mg) Social History Tobacco Use Types Packs/Day Years [...] 09/05/2017 11:13 AM Gabby De La Garza LUA * Does this person have serious difficulty [...] La Garza SHANNON documented in this encounter Miscellaneous Notes * Telephone Encounter - Vicki Amato RN - 03/22/2024 2:18 PM EDT Patient called requesting information regarding Tramadol. I spoke with Shahana (clinical pharmacy technician) who stated 100 mg tablets are out of stock and upon reorder they gave her the 50 mg tablets then theyreviewed the dosing with her. Pharmacy confirmed she has a month supply Vicki Amato RN * Telephone Encounter - Adrianna Zabala, Clerical Staff - 03/22/2024 12:19 PM EDT Reason for call: Hui called stating that she is very upset regarding her traMADoL 100 mg Oral Tablet script. The pharmacy gave her two 2 mg tablet because they didn't have enough to fill it this morning. They told her the 100 mg tablets would be delivered by Noon and they called and told her the scriptwas ready. Her father went to bead picker the script and he checked the script they gave her were the 50 mg tablets. She is asking for a call back to let her know what to do. She uses the [id number] [place] [address] - [facility] [phone] [place] [phone] CESARIO #: [id number] Preferred call back number:[phone] documented in this encounter Plan of Treatment Upcoming Encounters Date Type Department Care Team (Late st Contact Info) Description 09/11/2024 1:45 PM EST Office Visit [facility] [address] [place] [address] Swapnil Lopez MD [address] [place] [address] 10/21/2024 2:00 PM EST Appointment [facility] MRI [address] [place] [address] Jacky Shirley MD [address] [place] [address] [place] [address] 10/23/2024 1:45 PM EST Appointment [facility] [place] [address] Olena Darby APRN [address] [place] [address] [place] [address] documented as of this encounter [...] documented as of this encounter Care Teams Decorating Instructor Relationship Specialty Start Date End Date Damaso Black MD [address] [facility] [address] [place] [address] PCP - General Family Medicine 11/22/22 Swapnil Lopez MD [address] [place] [address] Internal Medicine-Gastroenterology 02/16/22 Darío Rubio MD [address] [place] [address] [place] [address] Internal Medicine-Medical Oncology 12/11/23 Mya Naranjo MD [address] [place] [address] [place] [address] Family Medicine - Hospice And Palliative Medicine 01/04/24 Ashley Ordonez APRN [address] [place] [address] [place] [address] Nurse Practitioner 01/04/24 Nicole Melendez, RN Registered Nurse 01/04/24 Aislinn Viera, ANGE Registered Nurse 02/07/24 documented as of this encounter
--- OUTSIDE RECORDS SUMMARY | 2024-08-15 13:48 | XMS_ITS | Encounter Summary ---
Author Organization [place] [address] Care Team Providers Care Tour Agent Name Role Phone Swapnil Lopez MD Unavailable [phone] Damaso Black MD Primary Care Provider [phone] Darío Rubio MD Unavailable [phone] Mya Naranjo MD Unavailable [phone] Ashley Ordonez APRN Unavailable [phone] Nicole Melendez RN Unavailable Unavailable Aislinn Viera RN Unavailable Unavailable Reason for Visit * Reason Onset Date Comments Medication Refill 03/26/2024 Encounter Details Date Type Department Care Team (Late st Contact Info) Description 03/26/2024 Refill [facility] Medical Oncology [place] [id number] Darío Rubio MD [address] [place], [place] [phone] Medication Refill Social History Tobacco Use Types [...] Telephone Encounter - Aislinn Viera RN - 03/27/2024 3:09 PM EDT Sent MyChart response to patient about use of lomotil. Patient needs to follow up with GI as lomotil should be taken NEEDED and not as a daily medication. Discontinued old prescription. Patient states that her my diarrhea is out of control I'm starved and can't eat or it runs right through me. Called and spoke with Dr. Lopez's office about taking over management of lomotil and having patientevaluated. Provided callback number if needed. * Telephone Encounter - Aislinn Viera RN - 03/27/2024 9:39 AM EDT Patient's script has remaining refills on it. Will reach out to patient to notify. documented in this encounter Plan of Treatment Upcoming Encounters Date Type Department Care Team (Late st Contact Info) Description 09/11/2024 1:45 PM EST Office Visit [facility] [address] [facility], [place] [phone] Swapnil Lopez MD [address] [place] [id number] 10/21/2024 2:00 PM EST Appointment [facility] MRI [address] [facility] [place] [address] Jacky Shirley MD [address] [place] [address] [place], [place] [id number] 10/23/2024 1:45 PM EST Appointment [facility] [address] [place], [place] [phone] Olena Darby APRN [address] [place] [phone] documented as of this encounter Goals Goal [...] EDT PHQ-2 Depression Total Score: 3 12/29/19 1:47 PM EDT documented as of this encounter Care Teams Tour Agent Relationship Specialty Start Date End Date Damaso Black MD [address] [facility] [address] [place] [id number] PCP - General Family Medicine 11/22/22 Swapnil Lopez MD [address] [place] [phone] Internal Medicine-Gastroenterology 02/16/22 Darío Rubio MD [address] [facility] [place] [address] Internal Medicine-Medical Oncology 12/11/23 Mya Naranjo MD [address] [facility] [place] [address] Family Medicine - Hospice And Palliative Medicine 01/04/24 Ashley Ordonez APRN [address] [facility] [place] [address] Nurse Practitioner 01/04/24 Nicole Melendez, RN Registered Nurse 01/04/24 Aislinn Viera, ANGE Registered Nurse 02/07/24 documented as of this encounter
--- OUTSIDE RECORDS SUMMARY | 2024-08-15 13:48 | XMS_ITS | Encounter Summary ---
Author Organization [place] [address] Care Team Providers Care Extracorporeal Circulation Specialist Name Role Phone Swapnil Lopez MD Unavailable [phone] Damaso Black MD Primary Care Provider [phone] Darío Rubio MD Unavailable [phone] Mya Naranjo MD Unavailable [phone] Ashley Ordonez APRN Unavailable [phone] Nicole Melendez RN Unavailable Unavailable Aislinn Viera RN Unavailable Unavailable Reason for Visit * Reason Comments Pharmacy Oncology Management Ribociclib Encounter Details Date Type Department Care Team (Latest Contact Info) Description 03/26/2024 Specialty Pharmacy [facility] [address] [place] [address] Shruthi Caruso, Maile Pharmacy Oncology Management (Ribociclib) Social History Tobacco [...] Progress Notes * Shruthi Caruso CPhT - 03/26/2024 11:20 AM EDT [facility] Refill Request Prescription for Ribociclib is out of refills. Will send a request to the provider and contact patient to coordinate refill once response is received. * Arabella Camarena RPH - 03/26/2024 11:20 AM EDT [facility] Refill authorization received. Will contact patient to coordinate refill. * Shruthi Caruso CPhT - 03/26/2024 11:20 AM EDT Specialty Pharmacy Refill Coordination Note Contacted Marleni L Sy Seamus today regarding refills of Ribociclib. Copay amount: $0.00 No answer, left voicemail to call [phone], option 4. Patient informed of copay. * Shruthi Caruso CPhT - 03/26/2024 11:20 AM EDT Specialty Pharmacy Refill Coordination Note Contacted Marleni Way today regarding refills of Ribociclib. Copay amount: $0.00 Sent [employer] message. Not able to dial long distance currently Patient informed of copay. * Radha Trejo RPH - 03/26/2024 11:20 AM EDT [facility] - Care Plan and Refill Review Refill questions and refill history verified. Last assessment 01/30/24. No reassessment needed at this time. Radha Trejo RPH Specialty Pharmacist documented in this encounter Plan of Treatment Upcoming Encounters Date Type Department Care Team (Late st Contact Info) Description 09/11/2024 1:45 PM EST Office Visit [facility] [address] [place] [facility] [place] [address] Swapnil Loepz MD [address] [place] [address] 10/21/2024 2:00 PM EST Appointment [facility] MRI [address] [place] [address] Jacky Shirley MD [address] [place] [address] [place] [address] 10/23/2024 1:45 PM EST Appointment [place] [address] Olena Darby APRN 1 [facility] [place], [place] [phone] documented as of this encounter Goals Goal [...] documented as of this encounter Care Teams Extracorporeal Circulation Specialist Relationship Specialty Start Date End Date Damaso Black MD [address] [facility] [address] [place] [address] PCP - General Family Medicine 11/22/22 Swapnil Lopez MD [address] [place] [address] Internal Medicine-Gastroenterology 02/16/22 Darío Rubio MD [address] [place] [address] [place] [address] Internal Medicine-Medical Oncology 12/11/23 Mya Naranjo MD [address] [place] [address] [place] [address] Family Medicine - Hospice And Palliative Medicine 01/04/24 Ashley Ordonez APRN [address] [place] [address] [place] [address] Nurse Practitioner 01/04/24 Nicole Melendez, RN Registered Nurse 01/04/24 Aislinn Viera, ANGE Registered Nurse 02/07/24 documented as of this encounter
--- OUTSIDE RECORDS SUMMARY | 2024-08-15 13:48 | XMS_ITS | Encounter Summary ---
Author Organization [place] [address] Care Team Providers Care Iuss Master Analyst Name Role Phone Swapnil Lopez MD Unavailable [phone] Damaso Black MD Primary Care Provider [phone] Darío Rubio MD Unavailable [phone] Mya Naranjo MD Unavailable [phone] Ashley Ordonez JEWISH THOUGHT PROFESSOR Unavailable [phone] Nicole Melendez RN Unavailable Unavailable Aislinn Viera RN Unavailable Unavailable Ronit Conner RN Unavailable Unavailable Armando Vieira OIL PROCESS STILLMAN Unavailable Unavailable Vicki Amato RN Unavailable UnavailTrinh Soto JEWISH THOUGHT PROFESSOR Unavailable [phone] Selina Olsen JEWISH THOUGHT PROFESSOR Unavailable [phone] Encounter Details Date Type Department Care Team (Late st Contact Info) Description 04/10/2024 Orders Only [facility] [place] [address] Darío Rubio MD [address] [place] [address] Invasive ductal carcinoma of breast, left (HCC) [...] PM EST Office Visit [facility] [address] [facility] [place] [address] Swapnil Lopez MD [address] [facility] [place] [address] 10/21/2024 2:[address] [facility] MRI [address] [place] [address] Jacky Shirley MD [address] [place] [address] [place] [address] 10/23/2024 1:45 PM EST Appointment [facility] [place] [address] Olena Darby APRN [address] [facility] [place] [address] documented as of this encounter Goals Goal [...] documented as of this encounter Care Teams Iuss Master Analyst Relationship Specialty Start Date End Date Damaso Black MD [address] [address] PCP - General Family Medicine 11/22/22 Swapnil Lopez MD [address] [place] [address] Internal Medicine-Gastroenterology 02/16/22 Darío Rubio MD [address] [place] [address] [place] [address] Internal Medicine-Medical Oncology 12/11/23 Mya Naranjo MD [address] [place] [address] [place] [address] Family Medicine - Hospice And Palliative Medicine 01/04/24 Ashley Ordonez APRN [address] [facility] [place] [address] Nurse Practitioner 01/04/24 Nicole Melendez, RN Registered Nurse 01/04/24 Aislinn Viera, RN Registered Nurse 02/07/24 Ronit Conner, RN Registered Nurse 04/10/24 Armando Vieira MSW Jewelry Facer 04/10/24 Vicki Amato, RN Registered Nurse 04/10/24 Trinh Bullock APRN [address] [facility] [place] [address] Nurse Practitioner Nurse Practitioner-Family 04/10/24 Selina Olsen APRN [address] [facility] [place] [address] Nurse Practitioner 04/10/24 documented as of this encounter
--- OUTSIDE RECORDS SUMMARY | 2024-08-15 13:48 | XMS_ITS | Encounter Summary ---
Author Organization [place] [address] Care Team Providers Care Steam Turbine Operator Name Role Phone Swapnil Lopez MD Unavailable [phone] Damaso Black MD Primary Care Provider [phone] Darío Rubio MD Unavailable [phone] Mya Naranjo MD Unavailable [phone] Ashley Ordonez R AND D LAB TECHNICIAN Unavailable [phone] Nicole Melendez RN Unavailable Unavailable Aislinn Viera RN Unavailable Unavailable Ronit Conner RN Unavailable Unavailable Armando Vieira HOUSEKEEPING ASSOCIATE Unavailable Unavailable Vicki Amato RN Unavailable UnavailTrinh Soto R AND D LAB TECHNICIAN Unavailable [phone] Selina Olsen R AND D LAB TECHNICIAN Unavailable [phone] Reason for Referral * MRI/CAT Scan (Routine) - Pending Review Specialty Diagnoses / Procedures Referred By Contac t Referred To Contact Radiology Diagnoses Secondary malignant neoplasm of bone (HCC) Procedures MRI BRAIN W WO CONTRAST Jacky Shirley MD [address] [place] [address] [place] [address] Phone: tel: fax: Referral ID Status Reason Start Date Expiration Date V isits Requested Visits Authorized [id number] Pending Review 04/19/2024 04/19/2025 1 1 Reason for Visit * Reason Comments Follow-up Breast cancer Encounter Details Date Type Department Care Team (Latest Contact Info) Description 04/19/2024 2:01 PM EDT - 04/19/2024 11:59 PM EDT Hospital Encounter [facility] [place] [address] Heather Quiroz MD 1 [place] [address] Jacky Shirley MD 1 [facility] [place] [address] Secondary malignant neoplasm of bone (HCC) (Primary [...] Sign Reading Time Taken Comments Blood Pressure 145/71 04/19/2024 2:27 PM EDT Pulse 65 04/19/2024 2:27 PM EDT Temperature 36.3 ??C (97.3 ??F) 04/19/2024 2:27 PM ED T Respiratory Rate 16 04/19/2024 2:27 PM EDT Oxygen Saturation 100% 04/19/2024 2:27 PM EDT Inhaled Oxygen Concentration - - Weight 57.6 kg (127 lb) 04/19/2024 2:27 PM EDT Height - - Body Mass Index 23.23 04/15/2024 1:15 PM EDT documented in this [...] mouth every 3 hours. 200 Capsule 01/24/2024 traMADoL (ULTRAM) 50 mg Oral TabletIndications :Invasive ductal carcinoma of breast, left (HCC) Take 2 Tablets by mouth every 4 hours as needed for Pain for up to 30 days. *MAX OF 6 TABLETS PER DAY* 180 Tablet 04/19/2024 4:23 PM EDT 04/19/2024 documented as of this encounter Discharge Disposition Disposition Code Departure Means Destination Home or Self Care documented in this encounter Progress Notes * Jacky Shirley MD - 04/19/2024 2:15 PM EDT Images from the original note were not included. RADIATION ONCOLOGY FOLLOW-UP VISIT 04/19/2024 Chief Complaint Patient presents with Follow-up Breast cancer DIAGNOSIS: Cancer Staging Invasive ductal carcinoma of breast, left (HCC) Staging form: Breast, AJCC 8th Edition - Clinical stage from 11/13/2023: Stage IIA (cT2, cN1, cM0, G2, ER+, NV+, HER2-) - Signed by Ian Ruiz MD on 11/18/2023 Oncology History Invasive ductal carcinoma of breast, [...] 67 gene panel testing results were negative. HISTORY: Marleni Way is a 63 y.o. female here today for a routine follow-up visit. She is feeling well. She has some generalized aches and pains no specific focal issues or symptoms. She denies any specific headaches nausea vomiting fever sweats or chills. Pain Score: 8 Pain Loc: Generalized PAST HISTORIES: Patient's problem list, past medical, family and social histories were reviewed and updated. There were no changes except as noted. Patient Active Problem List Diagnosis Alcoholism (HCC) Crohn's History of stomach cancer Depression Exacerbation of Crohn's disease (HCC) Food impaction of esophagus Anxiety and depression Ulcer of great toe, left, with necrosis of muscle (HCC) Crohn's disease of colon with complication (HCC) Laceration of left great toe without foreign body present or damage to nail De Quervain thyroiditis De Quervain's tenosynovitis, left De Quervain's tenosynovitis Invasive ductal carcinoma of breast, left (HCC) Palliative care by specialist Cancer related pain Secondary malignant neoplasm of bone (HCC) Past Medical History: Diagnosis Date Anemia Breast cancer (HCC) Cancer (HCC) Crohn disease (HCC) Encounter for blood transfusion Lab test positive for detection of COVID-19 virus 02/12/2021 02/16/21=pt stated that she tested COVID positive on 02/12/21 @ [facility], instructed pt to notify Dr Lantigua's office to reschedule surgery Past Surgical History: Procedure Laterality Date ANTERIOR COMPARTMENT DECOMPRESSION Left 04/15/2021 LEFT DEQUERVAINS RELEASE ; Surgeon: Henry Lantigua MD; Location: [facility]; Service: Hand BREAST BIOPSY Left 10/26/2023 2:00 BREAST BIOPSY Left 10/26/2023 axilla node SECTION x2 COLON SURGERY x11 crohns COLONOSCOPY COLOSTOMY ILEOSTOMY OR JEJUNOSTOMY UPPER GASTROINTESTINAL ENDOSCOPY N/A 06/25/2016 ESOPHAGOGASTRODUODENOSCOPY with biopsy with conscious sedation; Surgeon: Christopher Matthews MD PHD; Location: [facility] ENDOSCOPY; Service: Endoscopy REVIEW OF SYSTEMS: Review of Systems Constitutional: Positive for fatigue. Negative for chills, fever and unexpected weight change. HENT: Positive for congestion. Negative for sore throat and trouble swallowing. Respiratory: Negative for chest tightness and shortness of breath. Cardiovascular: Positive for palpitations. Negative for chest pain. Gastrointestinal: Positive for diarrhea. Negative for constipation, nausea and vomiting. Genitourinary: Negative for difficulty urinating and vaginal bleeding. Musculoskeletal: Positive for back pain. Negative for arthralgias. Skin: Negative for rash and wound. Neurological: Positive for headaches (occasional headaches). Negative for dizziness and numbness. Hematological: Bruises/bleeds easily. Psychiatric/Behavioral: Positive for sleep disturbance. The patient is nervous/anxious. PHYSICAL EXAM: ECOG: (1) Restricted in physically strenuous activity, ambulatory and able to do work of light nature BP 145/71 (BP Location: Right arm, Patient Position: Sitting) Pulse 65 Temp 97.3 ??F (36.3 ??C)(Temporal) Resp 16 Wt 127 lb (57.6 kg) SpO2 100% BMI 23.23 kg/m?? Physical Exam Vitals reviewed. Constitutional: Appearance: She is well-developed. HENT: Head: Normocephalic. Cardiovascular: Rate and Rhythm: Normal rate. Pulmonary: Effort: Pulmonary effort is normal. No respiratory distress. Breath sounds: No wheezing. Skin: General: Skin is warm and dry. Coloration: Skin is not pale. Findings: No erythema or rash. LABS: Labs personally reviewed. IMAGING: Images personally reviewed. MRI brain reviewed compared to study from November. No new or concerning lesions no SWITCH FOREMAN metastasis bone lesion within the scalp has reduced enhancement and a photopenic center consistent with treatment response. No dural thickening. ASSESSMENT: The plan of care for pain includes the following Interventions: Patient and/or family education Psychological support Marleni Way was seen today for follow-up. Diagnoses and all orders for this visit: Secondary malignant neoplasm of bone (HCC) - MRI BRAIN W WO CONTRAST; Future This is a kind 63-year-old woman with oligometastatic breast cancer. She is doing well with systemic therapy. She is tolerating things well her headaches have greatly improved and in general she is feeling back to herself. I will plan to see her back in a few months with repeat imaging. She can call sooner if he needs concerns or questions arise. It is a pleasure take part in the care of this kind woman and her family. Sincerely, Jacky Shirley MD documented in this encounter Plan of Treatment Upcoming Encounters Date Type Department Care Team (Late st Contact Info) Description 09/11/2024 1:45 PM EST Office Visit [facility] [address] [facility] [place] [address] Swapnil Lopez MD [address] [place] [address] 10/21/2024 2:00 PM EST [facility]ointment [facility] MRI [address] [place] [address] Jacky Shirley MD 1 [facility] [place] [address] 10/23/2024 1:45 PM EST Appointment [facility] [address] [place], [place] [id number] Olena Darby APRN 1 [facility] [place], [place] [phone] Scheduled Orders Name Type Priority Associated Diagnoses Orde r Schedule MRI BRAIN W WO CONTRAST Imaging Routine Secondary malignant neoplasm of bone (HCC) Expected: 10/20/2024, Expires: 04/19/2025 documented as of this encounter Goals Goal [...] documented as of this encounter Care Teams Steam Turbine Operator Relationship Specialty Start Date End Date Damaso Black MD [address] [place] [address] PCP - General Family Medicine 11/22/22 Swapnil Lopez MD [address] [place] [address] Internal Medicine-Gastroenterology 02/16/22 Darío Rubio MD [address] [facility] [address] Internal Medicine-Medical Oncology 12/11/23 Mya Naranjo MD [address] [facility] [address] Family Medicine - Hospice And Palliative Medicine 01/04/24 Ashley Ordonez, R AND D LAB TECHNICIAN [address] [facility] [place] [address] Nurse Practitioner 01/04/24 Nicole Melendez, RN Registered Nurse 01/04/24 Aislinn Viera, RN Registered Nurse 02/07/24 Ronit Conner, RN Registered Nurse 04/10/24 Armando Vieira MSW Woodwork Teacher 04/10/24 Vicki Amato, RN Registered Nurse 04/10/24 Trinh Bullock APRN [address] [facility] [address] Nurse Practitioner Nurse Practitioner-Family 04/10/24 Selina Olsen APRN [address] [facility] [place] [address] Nurse Practitioner 04/10/24 documented as of this encounter
--- OUTSIDE RECORDS SUMMARY | 2024-08-15 13:48 | XMS_ITS | Encounter Summary ---
Author Organization [place] [address] Care Team Providers Care Marine Tower Operator Name Role Phone Swapnil Lopez MD Unavailable [phone] Damaso Black MD Primary Care Provider [phone] Darío Rubio MD Unavailable [phone] Mya Naranjo MD Unavailable Ashley Ordonez JOURNALISTS AND OTHER WRITERS Unavailable [phone] Nicole Melendez RN Unavailable Unavailable Aislinn Viera RN Unavailable Unavailable Ronit Conner RN Unavailable Unavailable Armando Vieira DRAMA DIRECTOR Unavailable Unavailable Vicki Amato RN Unavailable UnavailTrinh Soto JOURNALISTS AND OTHER WRITERS Unavailable [phone] Selina Olsen JOURNALISTS AND OTHER WRITERS Unavailable [phone] Reason for Visit * Reason Comments Follow-up Patient requesting t o have labs drawn on Monday when she comes back. Breast Cancer Results MRI Brain. Patient h ad MRI at 12pm today. Pain wants to discuss wit h pain management. Encounter Details Date Type Department Care Team (Latest Contact Info) Description 04/15/2024 1:13 PM EDT - 04/15/2024 11:59 PM EDT Hospital Encounter [facility] [place] [address] Heather Quiroz MD [address] [place] [address] Suri Diaz, JOURNALISTS AND OTHER WRITERS [address] [place] [address] Invasive ductal carcinoma of breast, left (HCC) (Primary Dx); Crohn's disease of both small and large intestine without complication (HCC); Secondary malignant neoplasm of bone (HCC); [...] Sign Reading Time Taken Comments Blood Pressure 125/79 04/15/2024 1:15 PM EDT Pulse 69 04/15/2024 1:15 PM EDT Temperature 36.9 ??C (98.4 ??F) 04/15/2024 1:15 PM ED T Respiratory Rate 16 04/15/2024 1:15 PM EDT Oxygen Saturation 100% 04/15/2024 1:15 PM EDT Inhaled Oxygen Concentration - - Weight 58.1 kg (128 lb) 04/15/2024 1:15 PM EDT Height 157.5 cm (5' 2 ) 04/15/2024 1:15 PM EDT Body Mass Index 23.41 04/15/2024 1:15 PM EDT documented in this [...] documented in this encounter Progress Notes * Suri DiazYON - 04/15/2024 1:30 PM EDT Images from the original note were not included. Patient: Marleni Way [facility]: [id number] Date of : 1960 Age: 63 y.o. Date of Service: 04/15/2024 HEMATOLOGY/ONCOLOGY FOLLOW UP VISIT Primary Program Manufacturing Leader & Oncologist: Cameron Rubio MD DIAGNOSIS & TREATMENT HISTORY: Oncology History Invasive ductal carcinoma of breast, [...] 67 gene panel testing results were negative. Cancer Staging Invasive ductal carcinoma of breast, left (HCC) Staging form: Breast, AJCC 8th Edition - Clinical stage from 11/13/2023: Stage IIA (cT2, cN1, cM0, G2, ER+, NV+, HER2-) - Signed by Ian Ruiz MD on 11/18/2023 CURRENT TREATMENT: DR Parry at 400 mg daily due to G2 diarrhea 1 mg of arimidex INTERVAL HISTORY: CC: Chief Complaint Patient presents with Follow-up Patient requesting to have labs drawn on Monday when she comes back. Breast Cancer Results MRI Brain. Patient had MRI at 12pm today. Pain wants to discuss with pain management. Marleni Way is coming today for labs and re-assessment. Continues tolerating DR Parry. Did not get labs collected. Reports is hard stick and had MRI brain today so multiple sticks. Has apt with [facility] and Palliative Care Monday and asking if can get labs drawn at that time. CT c/a/p early April stable. Doses Kisqali tomorrow and then off week. Denies fever and chills. Bowels doing well. No recent flares or exacerbation of Chron's. Frustrated with pain management. Reports chronic pain, chronic GI pain, and now with cancer diagnosis on oral treatment. Taking Tramadol more than script so running out. States if could have for 8 tablets day manageable. Reports has asked Palliative Care for adjustment in script. Has apt Monday. Ifunwilling she states would like new [facility] pain management referral. Discussed with pt chronic pain, GI pain, cancer related pain topics. REVIEW OF SYSTEMS: Pertinent information Review of Systems Constitutional: Negative for fever. HENT: Negative for sore throat and trouble swallowing. Respiratory: Negative for chest tightness, hemoptysis and shortness of breath. Cardiovascular: Negative for chest pain and leg swelling. Gastrointestinal: Negative for rectal pain and vomiting. Musculoskeletal: Positive for arthralgias and myalgias. Negative for gait problem. Skin: Negative for itching. Neurological: Negative for dizziness, extremity weakness, gait problem, seizures and speech difficulty. Psychiatric/Behavioral: The patient is nervous/anxious. MEDICATIONS: Medications and allergies reviewed PHYSICAL EXAM: Vitals: 04/15/24 1315 BP: 125/79 Pulse: 69 Resp: 16 Temp: 98.4 ??F (36.9 ??C) SpO2: 100% Wt Readings from Last 2 Encounters: 04/15/24 128 lb (58.1 kg) 03/20/24 126 lb (57.2 kg) ECO Pertinent information Physical Exam Constitutional: General: She is not in acute distress. Appearance: She is not diaphoretic. Eyes: General: No scleral icterus. Conjunctiva/sclera: Conjunctivae normal. Cardiovascular: Rate and Rhythm: Normal rate and regular rhythm. Pulmonary: Breath sounds: Normal breath sounds. Musculoskeletal: General: No swelling. Skin: General: Skin is warm and dry. Findings: No rash. Neurological: Mental Status: She is alert and oriented to person, place, and time. Motor: No weakness. Gait: Gait normal. Psychiatric: Behavior: Behavior normal. MEDICAL DATA REVIEW: Laboratories, Images and Pathology results reviewed MRI Brain 04/15/[address] c/a/p next month as well ASSESSMENT & PLAN Marleni Way was seen today for follow-up, breast cancer, results and pain. Diagnoses and all orders for this visit: Invasive ductal carcinoma of breast, left (HCC) Crohn's disease of both small and large intestine without complication (HCC) Secondary malignant neoplasm of bone (HCC) Encounter for medication monitoring Stage IV Invasive Ductal Carcinoma of Left Breast (T2N3M1, ER+, NV+, HER2-) Patient coming from [facility]. Patient reports feeling an enlarging breast lump. [...] for faslodex monthly monotherapy if still in [facility]. Discussed side effects of faslodex and gave information. If out of [facility]- would consider faslodex and ribociclib vs AI + CDK4/6. Out of [facility] mid December [address] Rubio discussed we could do CDK4/6 inhibitor ribociclib (kisqali) + anastrazole (AI). Had started on AI prior. Discussed side effects of neutropenia, EKG/arrhythmiaabnormalities, peripheral edema, alopecia, rash, electrolyte abnormalities, n/v/d, abdominal pain, other cytopenias, liver and kidney abnormalities, infection, fatigue, dizziness, headaches, arthralgias, osteoporosis chcf, fever, hot flashes, mood swings and other side effects that will be discussed in teach session with RN. To take days 1-21 and have 7 days off. Baseline Qtc 395 on 12/19/23 with sinus bradycardia and non-specific T- wave inversion- no known coronary disease she knows of Poor tolerance of full dose kisqali with sig diarrhea. Now on 400 mg daily and doing well. Followedup with GI (hx Chrons disease) and not currently on medication for management. GI noted she was doing well and will continue to monitor off therapy. CMP and CBC had been stable on kisqlai but refusalof labs today. Had already been stuck multiple times for imaging. Reschedule lab apt for lab monitoring Monday coordinating with [facility] and Palliative Care [facility]. Continues on AI. CT c/a/p stable from oncologic standpoint. MRI brain pending from this morning. Pain control : reports generalized aches and pains. No specific complaint. Reports long standing history of management for Chron's , back pain, and now with cancer diagnosis and on treatment additional generalized aches and pains. Established with Palliative care clinic so defer adjustment in script to their expertise. She is requesting 8 tablets Tramadol daily. Considering change to alterative SEP pain management. Advance Directives: Advance Directives/DNR: Not Received Advance Directives and Living Will: Not Received Power of Leading Firefighter: Not Received ADVANCE DIRECTIVE: Received 10/31/2023 Code Status: Needs Addressed - Prior Hx Available Dispo: Return in about 2 weeks (around 04/29/2024) for MD BOWLES, LAB APT. Thank you for the opportunity to assist in the care of this patient, please feel free to contact meif I can be of any assistance. Suri Diaz APRN Hematology and Medical Oncology [facility] documented in this encounter Plan of Treatment Upcoming Encounters Date Type Department Care Team (Late st Contact Info) Description 09/11/2024 1:45 PM EST Office Visit [facility] [address] [place] [facility] [place] [address] Swapnil Lopez MD [address] [place] [address] 10/21/2024 2:00 PM EST Appointment [facility] [address] [address] Jacky Shirley MD [address] [place] [address] CANCER CARE [place], [place] [id number] 10/23/2024 1:45 PM EST Appointment [facility] [place], [place] [id number] Olena Darby APRN 1 [facility] [place], [place] [id number] documented as of this encounter Goals Goal [...] ductal carcinoma of breast, left (HCC)- Primary Crohn's disease of both small and large intestine without complication (HCC) 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 promethazine (PHENERGAN) 12.5 mg Oral Tablet Take by mouth every 6 hours as needed for Nausea. 07/26/2024 added in this encounter Additional Health Concerns Assessment Noted Time PHQ-9 Depression Total Score: 13 024 1:47 PM EDT PHQ-2 Depression Total Score: 3 12/29/19 24 1:47 PM EDT documented as of this encounter Care Teams Marine Tower Operator Relationship Specialty Start Date End Date Damaso Black MD [address] [place] [address] PCP - General Family Medicine 11/22/22 Swapnil oLpez MD [address] [place] [address] Internal Medicine-Gastroenterology 02/16/22 Darío Rubio MD [address] [facility] [place] [address] Internal Medicine-Medical Oncology 12/11/23 Mya Naranjo MD [address] [facility] [place] [address] Family Medicine - Hospice And Palliative Medicine 01/04/24 Aslhey Ordonez APRN [address] [place] [address] [place] [address] Nurse Practitioner 01/04/24 Nicole Melendez, RN Registered Nurse 01/04/24 Aislinn Viera, RN Registered Nurse 02/07/24 Ronit Conner, RN Registered Nurse 04/10/24 Armando Vieira MSW Upper Inspector 04/10/24 Vicki Amato, RN Registered Nurse 04/10/24 Trinh Bullock APRN [address] [facility] [place] [address] Nurse Practitioner Nurse Practitioner-Family 04/10/24 Selina Olsen APRN [address] [facility] [place] [address] Nurse Practitioner 04/10/24 documented as of this encounter
--- OUTSIDE RECORDS SUMMARY | 2024-08-15 13:48 | XMS_ITS | Encounter Summary ---
Author Organization [place] [address] Care Team Providers Care Mechanical Maintenance Supervisor Name Role Phone Swapnil Lopez MD Unavailable [phone] Damaso Black MD Primary Care Provider [phone] Darío Rubio MD Unavailable [phone] Mya Naranjo MD Unavailable [phone] Ashley Ordonez APRN Unavailable [phone] Nicole Melendez RN Unavailable Unavailable Aislinn Viera RN Unavailable Unavailable Reason for Visit * Reason Onset Date Comments Patient Education 03/22/2024 Encounter Details Date Type Department Care Team (Late st Contact Info) Description 03/22/2024 Telephone [facility] [place] [id number] Ronit Conner, ANGE Patient Education Social History Tobacco Use Types Packs/Day Years [...] Telephone Encounter - Ronit Conner RN - 03/22/2024 4:15 PM EDT Returned patient call. She continues to be concerned that her prescription of 100 mg of Tramadol was filled by the pharmacy using 2, 50 mg tablets. Pt agrees that mathematically speaking the medication should be the same, however the patient states two 50 mg tablets do not work like the 100 mg tablet. Attempted to educate patient that the medication was the same, just in different dosing. She expressed frustration with her local pharmacy. I reminded her to take 2 tablets of 50 MG when she needsit rather than one. She expressed understanding but feels they wont help like the 100's do. Ronit Conner RN * Telephone Encounter - Ronit Conner RN - 03/22/2024 4:15 PM EDT ----- Message from [employer] sent at 03/22/2024 3:23 PM EDT ----- Regarding: Prescription Contact: Ashley, can you please give me a call for a minute? It gets even worse on what pharmacist at [facility] said! documented in this encounter Plan of Treatment Upcoming Encounters Date Type Department Care Team (Late st Contact Info) Description 09/11/2024 1:45 PM EST Office Visit [facility] [address] [facility], [place] [phone] Swapnil Lopez MD [address] [facility] [place] [address] 10/21/2024 2:00 PM EST Appointment [facility] MRI [address] [facility] [place] [address] Jacky Shirley MD [address] [place] [address] CANCER CARE [place], [place] [id number] 10/23/2024 1:45 PM EST Appointment [facility] [place] [address] Olena Darby APRN [address] [place] [address] [place], [place] [id number] documented as of this encounter Goals Goal [...] documented as of this encounter Care Teams Mechanical Maintenance Supervisor Relationship Specialty Start Date End Date Damaso Black MD [address] [facility] [address] [place] [phone] PCP - General Family Medicine 11/22/22 Swapnil Lopez MD [address] [place] [address] Internal Medicine-Gastroenterology 02/16/22 Darío Rubio MD [address] [facility] [place] [address] Internal Medicine-Medical Oncology 12/11/23 Mya Naranjo MD [address] [facility] [place] [address] Family Medicine - Hospice And Palliative Medicine 01/04/24 Ashley Ordonez APRN [address] [facility] [place] [address] Nurse Practitioner 01/04/24 Nicole Melendez, RN Registered Nurse 01/04/24 Aislinn Viera, ANGE Registered Nurse 02/07/24 documented as of this encounter
--- OUTSIDE RECORDS SUMMARY | 2024-08-15 13:48 | XMS_ITS | Encounter Summary ---
Author Organization [place] [address] Care Team Providers Care Ring Facer Name Role Phone Swapnil Lopez MD Unavailable [phone] Damaso Black MD Primary Care Provider [phone] Darío Rubio MD Unavailable [phone] Mya Naranjo MD Unavailable [phone] Ashley Ordonez APRN Unavailable [phone] Nicole Melendez RN Unavailable Unavailable Aislinn Viera RN Unavailable Unavailable Reason for Visit * Reason Comments Medication Refill Encounter Details Date Type Department Care Team (Late st Contact Info) Description 03/26/2024 Refill [facility] Medical Oncology [place] [phone] Darío Rubio MD [address] [place], [place] [phone] Medication Refill Social History Tobacco Use Types [...] No 09/05/2017 11:13 AM LUCÍA Gabby Mercedes RMA * Is the person blind or [...] No 09/05/2017 11:13 AM Yolis De La GarzaSHANNON james documented as of this encounter Mental Status * Because of a physical, mental or emotional condition, does this person have serious difficulty concentrating, remembering or making decisions? Answer Entry Date Author No 09/05/2017 11:13 AM LUCÍA Gabby Mercedes RMA documented in this encounter Ordered Prescriptions Prescription Sig Dispense Quantity Refills Last Filled Start Date End Date ribociclib (KISQALI) 400 mg/day (200 mg x 2) Oral TabletIndications: Invasive ductal carcinoma of breast, left (HCC) Take 2 tablets by mouth daily for 21 days followed by 7 days off 42 Tablet 04/01/2024 12:10 PM EDT 03/26/2024 documented in this encounter Miscellaneous Notes * Telephone Encounter - Aislinn Viera RN - 03/26/2024 1:51 PM EDT Received refill request for kisqali for pt. Reviewed chart; pt to have f/u appt around 04/09. Last RXwas sent on 02/28/2024 with 0 refills, so refill is appropriate. Last office note on 03/08/2024 states: Complaint with oral meds. Now on 400 mg daily and doing well . Escript for kisqali sent to pt's pharmacy. documented in this encounter Plan of Treatment Upcoming Encounters Date Type Department Care Team (Late st Contact Info) Description 09/11/2024 1:45 PM EST [facility] [address] [facility] [place] [address] Swapnil Lopez MD [address] [place] [place] [address] 10/21/2024 2:00 PM EST Appointment [facility] [address] [facility] [place], [place] [phone] Jacky Shirley MD [address] [place] [id number] 10/23/2024 1:45 PM EST Appointment [facility] [place], [place] [phone] Olena Darby APRN [address] [place] [id number] documented as of this encounter Goals Goal [...] days followed by 7 days off Reorder 02/28/2024 03/26/2024 documented as of this encounter Additional Health Concerns Assessment Noted Time PHQ-9 Depression Total Score: 13 024 1:47 PM EDT PHQ-2 Depression Total Score: 3 12/29/19 24 1:47 PM EDT documented as of this encounter Care Teams Ring Facer Relationship Specialty Start Date End Date Damaso Black MD [address] [place] [address] PCP - General Family Medicine 11/22/22 Swapnil Lopez MD [address] [place] [address] Internal Medicine-Gastroenterology 02/16/22 Darío Rubio MD 1 [facility] [place] [address] Internal Medicine-Medical Oncology 12/11/23 Mya Naranjo MD 1 [place] [address] Family Medicine - Hospice And Palliative Medicine 01/04/24 Ashley Ordonez APRN 1 [place] [address] Nurse Practitioner 01/04/24 Nicole Melendez, RN Registered Nurse 01/04/24 Aislinn Viera RN Registered Nurse 02/07/24 documented as of this encounter
--- OUTSIDE RECORDS SUMMARY | 2024-08-15 13:48 | XMS_ITS | Encounter Summary ---
Author Organization [facility] Address [address] [facility] [place] [address] Care Team Providers Care Weather Algorithm Scientist Name Role Phone Swapnil Lopez MD Unavailable [phone] Damaso Black MD Primary Care Provider [phone] Darío Rubio MD Unavailable [phone] Mya Naranjo MD Unavailable [phone] Ashley Ordonez APRN Unavailable [phone] Nicole Melendez RN Unavailable Unavailable Aislinn Viera RN Unavailable Unavailable Encounter Details Date Type Department Care Team (Late st Contact Info) Description 03/27/2024 Orders Only [facility] [address] [place], [place] [phone] Rosendo Almonte MA Crohn's disease of both small and large intestine without complication (HCC) Social History Tobacco Use Types Packs/Day [...] Refills Last Filled Start Date End Date mesalamine (LIALDA) 1.2 gram Oral Tablet, Delayed Release (E.C.) Take 1 Tablet by mouth daily. 360 Tablet 3 03/27/2024 4 diphenoxylate-atro pine (LOMOTIL) 2.5-0.025 mg Oral TabletIndications: Crohn's disease of both small and large intestine without complication (HCC) TAKE 2 TABLETS BY MOUTH FOUR TIMES DAILY NEEDED. NO MORE THAN 8 TABLETS PER DAY 60 Tablet 3 03/27/2024 4 diphenoxylate-atro pine (LOMOTIL) 2.5-0.025 mg Oral TabletIndications: Crohn's disease of both small and large intestine without complication (HCC) TAKE 2 TABLETS BY MOUTH FOUR TIMES DAILY NEEDED. NO MORE THAN 8 TABLETS PER DAY 240 Tablet 03/27/2024 4 documented in this encounter Plan of Treatment Upcoming Encounters Date Type Department Care Team (Late st Contact Info) Description 09/11/2024 1:45 PM EST Office Visit [facility] [address] [place] [address] Swapnil Lopez MD [facility] [address] [place] [address] 10/21/2024 2:00 PM EST Appointment [facility] MRI [address] [place] [address] Jacky Shirley MD 1 [facility] [place], [place] [phone] 10/23/2024 1:45 PM EST Appointment [facility] [place], [place] [phone] Olena Darby APRN [address] [place] [address] [place], [place] [phone] documented as of this encounter Goals Goal [...] Discontinue Reason Start Date End Da te mesalamine (LIALDA) 1.2 gram Oral Tablet, Delayed Release (E.C.) Take 1 Tablet by mouth daily. Reorder 02/21/2024 03/27/2024 mesalamine (LIALDA) 1.2 gram Oral Tablet, Delayed Release (E.C.) Take 1 Tablet by mouth daily. DELETE-Duplicate 03/27/2024 03/27/2024 documented as of this encounter Additional Health Concerns Assessment Noted Time PHQ-9 Depression Total Score: 13 12/28/ 024 1:47 PM EDT PHQ-2 Depression Total Score: 3 03/29/20 24 1:47 PM EDT documented as of this encounter Care Teams Weather Algorithm Scientist Relationship Specialty Start Date End Date Damaso Black MD [address] [facility] [address] [place] [address] PCP - General Family Medicine 11/22/22 Swapnil Lopez MD [address] [place] [address] Internal Medicine-Gastroenterology 02/16/22 Darío Rubio MD [address] [place] [address] [place] [address] Internal Medicine-Medical Oncology 12/11/23 Mya Naranjo MD [address] [facility] [place] [address] Family Medicine - Hospice And Palliative Medicine 01/04/24 Ashley Ordonez APRN [address] [facility] [place] [address] Nurse Practitioner 01/04/24 Nicole Melendez, RN Registered Nurse 01/04/24 Aislinn Viera, ANGE Registered Nurse 02/07/24 documented as of this encounter
--- OUTSIDE RECORDS SUMMARY | 2024-08-15 13:48 | XMS_ITS | Encounter Summary ---
Author Organization [place] [address] Care Team Providers Care E Commerce Retailer Name Role Phone Swapnil Lopez MD Unavailable [phone] Damaso Black MD Primary Care Provider [phone] Darío Rubio MD Unavailable [phone] Mya Naranjo MD Unavailable [phone] Ashley Ordonez APRN Unavailable [phone] Nicole Melendez RN Unavailable Unavailable Aislinn Viera RN Unavailable Unavailable Reason for Visit * MRI/CAT Scan (Routine) - Closed Specialty Diagnoses / Procedures Referred By Contac t Referred To Contact Radiology Diagnoses Invasive ductal carcinoma of breast, 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 [address] [place], [place] [address] Darío Rubio MD 1 [facility] [address] [place], [place] [address] Invasive ductal carcinoma of breast, left (HCC); Secondary malignant neoplasm of bone (HCC) Discharge [...] every 3 hours. 200 Capsule 01/24/2024 4 documented as of this encounter Discharge Disposition Disposition Code Departure Means Destination Home or Self Care documented in this encounter Plan of Treatment Upcoming Encounters Date Type Department Care Team (Late st Contact Info) Description 09/11/2024 1:45 PM EST Office Visit [facility] [address] [place] [address] Swapnil Lopez MD [address] [place] [address] 10/21/2024 2:00 PM EST Appointment [facility] MRI [address] [place] [address] Jacky Shirley MD [address] [place] [address] [place], [place] [id number] 10/23/2024 1:45 PM EST Appointment [facility] [place] [address] Olena Darby APRN [address] [place] [address] [place] [address] documented as of this encounter [...] Aldana, RMA documented as of this encounter Procedures Procedure Name Priority Date/Time Associated Diagnosis Comments CT CHEST ABDOMEN PELVIS WO CONTRAST Routine 04/01/2024 3:58 PM EDT Invasive ductal carcinoma of breast, 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 7 mm diameter pleural-based a nodule in the right lower lobe abutting the major fissure. Unlikely a metastatic lesion. However, recommend a follow-up in a few months for reevaluation. No definite evidence of metastatic disease in the abdomen pelvis. However, Limited evaluation due to lack of IV contrast. Cholelithiasis. 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 - Note: Radiology results need to be interpreted within a comprehensive clinical context. ??If you have questions about the radiology report, please contact the office of the ordering clinician. Narrative 04/01/2024 4:[address] CHEST, ABDOMEN, AND PELVIS WITHOUT CONTRAST, ??04/01/2024 3:58 PM CLINICAL HISTORY: ??C50.912-Malignant neoplasm of unspecified site of left female breast (HCC)-ICD-10-CM C79.51-Secondary malignant neoplasm of bone (HCC)-ICD-10-CM. COMPARISON: ??CT of the abdomen pelvis dated April 02, 2015 PROCEDURE COMMENTS: Multidetector CT chest, abdomen, and pelvis with multiplanar. ??No contrast given. ?? Dose 1 : CT DLP Total : 456.5 mGycm DLP Spiral Max : 241.7 mGycm Maximum CTDI Vol : 10.4 mGy SSDE : 14.664 mGy SSDE Diameter : 26.292 cm SSDE Source : [email or web address] FINDINGS: No IV contrast limits evaluation for metastatic disease. CT CHEST: ??Left axillary adenopathy measuring 1.1 cm which appear to contain a clip from biopsy. Left upper lateral breast mass inferior to the axilla about 1.5 cm. Likely the site of all breast cancer with the metastatic axillary adenopathy. Additional smaller left axillary lymph nodes also present. No dominant mediastinal adenopathy. No pericardial effusion or pleural effusion. No pneumothorax. About 7 mm diameter pleural-based nodular density in the right lower lobe abutting the major fissure. Curvilinear atelectasis or fibrosis at the bilateral lung bases. Coronary artery calcification: Mild. CT ABDOMEN AND PELVIS: ??Noncontrast CT images of the liver, spleen, bilateral adrenal glands, kidneys are unremarkable. Small pancreas. Gallstones. Mild [...] study. No ascites. No dominant pelvic adenopathy. Procedure Note Grace Anaya MD - 04/01/2024 CT CHEST, ABDOMEN, AND PELVIS WITHOUT CONTRAST, 04/01/2024 3:58 PM CLINICAL HISTORY: C50.912-Malignant neoplasm of unspecified site of leftfemale breast (HCC)-ICD-10-CM C79.51-Secondary malignant neoplasm of bone [...] Diameter : 26.292 cm SSDE Source : [email or web address] FINDINGS: No IV contrast limits evaluation for metastatic disease. CT CHEST: Left axillary adenopathy measuring 1.1 cm which appear tocontain a clip from biopsy. Left upper lateral breast mass inferior to the axillaabout 1.5 cm. Likely the site of all breast cancer with the metastaticaxillary adenopathy. Additional smaller left axillary lymph nodes also present. No dominant mediastinal adenopathy. No pericardial effusion or pleuraleffusion. No pneumothorax. About 7 mm diameter pleural-based nodular density in the right lowerlobe abutting the major fissure. Curvilinear atelectasis or fibrosis at the bilateral lung bases. Coronary artery calcification: Mild. CT ABDOMEN AND PELVIS: Noncontrast CT images of the liver, spleen,bilateral adrenal glands, kidneys are unremarkable. Small pancreas. Gallstones. Mild atherosclerotic aorta. No aneurysm. No dominant retroperitonealadenopathy. No bowel obstruction. Previously demonstrated abnormal thickened therectal wall has resolved. There appears to be persistent sinus/fistula tract from therectum on the left side. Uterus and bladder appears to be displaced anterior and to the rightside similar to the prior study. No ascites. No dominant pelvic adenopathy. IMPRESSION: Left breast mass and axillary adenopathy. 7 mm diameter pleural-based a nodule in the right lower lobe abutting themajor fissure. Unlikely a metastatic lesion. However, recommend a follow-up in afew months for reevaluation. No definite evidence of metastatic disease in the abdomen pelvis.However, Limited evaluation due to lack of IV contrast. Cholelithiasis. 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 - Note: Radiology results need to be interpreted within a comprehensiveclinical context. If you have questions about the radiology report, please contactthe office of the ordering clinician. 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 documented in this encounter Orders Medications Ordered That Paul ht Not Have Been Administered Count Last Ordered Date First Ordered Date iopamidoL (ISOVUE-370) 370 m g iodine /mL (76 %) injection (LOW) 100 mL 1 04/01/2024 sodium chloride 0.9% syringe 1 04/01/2024 documented in this encounter Additional Health Concerns Assessment Noted Time PHQ-9 Depression Total Score: 13 024 1:47 PM EDT PHQ-2 Depression Total Score: 3 12/29/19 24 1:47 PM EDT documented as of this encounter Care Teams E Commerce Retailer Relationship Specialty Start Date End Date Damaso Black MD [address] [facility] [address] [place] [address] PCP - General Family Medicine 11/22/22 Swapnil Lopez MD [address] [place] [address] Internal Medicine-Gastroenterology 02/16/22 Darío Rubio MD [address] [place] [address] [place] [address] Internal Medicine-Medical Oncology 12/11/23 Mya Naranjo MD [address] [place] [address] [place] [address] Family Medicine - Hospice And Palliative Medicine 01/04/24 Ashley Ordonez APRN 1 [facility] [place] [address] Nurse Practitioner 01/04/24 Nicole Melendez, RN Registered Nurse 01/04/24 Aislinn Viera, ANGE Registered Nurse 02/07/24 documented as of this encounter
--- OUTSIDE RECORDS SUMMARY | 2024-08-15 13:48 | XMS_ITS | Encounter Summary ---
Author Organization [place] [address] Care Team Providers Care Mold Capper Name Role Phone Swapnil Lopez MD Unavailable Damaso Black MD Primary Care Provider [phone] Darío Rubio MD Unavailable [phone] Mya Naranjo MD Unavailable [phone] Ashley Ordonez DIRECTOR OF RESIDENCE LIFE Unavailable [phone] Nicole Melendez RN Unavailable Unavailable Aislinn Viera RN Unavailable Unavailable Ronit Conner RN Unavailable Unavailable Armando Vieira CUSTOMER SERVICE SPECIALIST Unavailable Unavailable Vicki Amato RN Unavailable UnavailTrinh Soto DIRECTOR OF RESIDENCE LIFE Unavailable [phone] Selina Olsen DIRECTOR OF RESIDENCE LIFE Unavailable [phone] Encounter Details Date Type Department Care Team (Late st Contact Info) Description 04/22/2024 Telephone [facility] [place] [address] Darío Rubio MD [address] [place] [address] Social History Tobacco Use Types Packs/Day Years [...] Author No 09/05/2017 11:13 AM LUCÍA Mercedes YolisGabby SHANNON * Does this person have difficulty [...] Telephone Encounter - Aislinn Viera RN - 04/22/2024 11:46 AM EDT Per patient's preference, patient to have labs drawn at [place]. Lab orders faxed. Patient notified. Confirmation received. * Telephone Encounter - Aislinn Viera RN - 04/22/2024 9:07 AM EDT Patient refused labs at recent appointment. Will have video visit on 05/01. Sent MyChart to discuss where lab orders should be sent to. documented in this encounter Plan of Treatment Upcoming Encounters Date Type Department Care Team (Late st Contact Info) Description 09/11/2024 1:45 PM EST Office Visit [facility] [address] [place] [facility] [place] [address] Swapnil Lopez MD [address] [id number] 10/21/2024 2:[address] [facility] MRI [address] [place] [address] Jacky Shirley MD [address] [place] [address] 10/23/2024 1:45 PM EST Appointment [facility] [place] [address] Olena Darby APRN [address] [place] [id number] documented as of this encounter Goals Goal [...] Perez, RMA documented as of this encounter Results * (ABNORMAL) COMPREHENSIVE METABOLIC PANEL (06/07/2024 1:32 PM EDT) Sodium 136 136 - 145 mmol/L 06/07/2024 1:56 PM EDT [facility] Potassium 4.5 3.5 - 5.0 mmol/L 06/07/2024 1:56 PM EDT [facility] Chloride 102 98 - 107 mmol/L 06/07/2024 1:56 PM [facility] Total CO2 25 22 - 29 mmol/L 06/07/2024 1:56 PM [facility] Anion Gap 9 7 - 16 mmol/L 06/07/2024 1:56 PM [facility] Calcium 9.1 8.8 - 10.4 mg/dL 06/07/2024 1:56 PM [facility] Glucose Lvl 105(H) 70 - 99 mg/dL 06/07/2024 1:56 PM [facility] BUN 17 8 - 23 mg/dL 06/07/2024 1:56 PM [facility] Creatinine 0.98 0.51 - 1.30 mg/dL 06/07/2024 1:56 PM [facility] Albumin 3.9 3.2 - 4.6 gm/dL 06/07/2024 1:56 PM [facility] Total Protein 6.6 6.4 - 8.3 gm/dL 06/07/2024 1:56 PM [facility] Bili Total 0.4 0.2 - 1.3 mg/dL 06/07/2024 1:56 PM [facility] ALT 9 <=41 U/L 06/07/2024 1:56 PM [facility] AST 14 <=40 U/L 06/07/2024 1:56 PM [facility] Alk Phos 84 36 - 123 U/L 06/07/2024 1:56 PM [facility] eGFR (CKD-EPIcr 2020) 65 >=60 mL/min/1.7 3 m2 06/07/2024 1:56 PM [facility] Comment:Estimated GFR was ca lculated using the CKD-EPIcr (2020) equation refit without race. The equation is recommended by the National Kidney Foundation - [place] [employer] Neph[employer] Task Force. Blood VENOUS BLOOD / Unknown Venipuncture / Unknown 06/07/2024 1:32 PM EDT 06/07/2024 1:32 PM EDT us Darío Rubio MD CHEMISTRY ORDERABLES Final Res ult [facility] [address] [place] [address] * (ABNORMAL) CBC WITH DIFF (06/07/2024 1:32 PM EDT) WBC 7.1 3.7 - 10.3 x10(3)/mcL 06/07/2024 1:40 PM EDT [facility] RBC 4.14 3.90 - 5.20 x10(6)/mcL 06/07/2024 1:40 PM EDT [facility] Hgb 12.8 11.2 - 15.7 g/dL 06/07/2024 1:40 PM EDT [facility] Hct 38.5 34.0 - 45.0 % 06/07/2024 1:40 PM EDT [facility] MCV 93.0 80.0 - 100.0 fL 06/07/2024 1:40 PM EDT [facility] MCH 30.9 26.0 - 34.0 pg 06/07/2024 1:40 PM EDT [facility] MCHC 33.2 30.7 - 35.5 g/dL 06/07/2024 1:40 PM EDT [facility] RDW 14.3 <=14.9 % 06/07/2024 1:40 PM EDT [facility] Platelet 357 155 - 369 x10(3)/mcL 06/07/2024 1:40 PM EDT [facility] MPV 8.5(L) 8.8 - 12.5 fL 06/07/2024 1:40 PM EDT [facility] Neut # Prelim 4.9 1.6 - 6.1 x10(3)/mcL 06/07/2024 1:40 PM EDT [facility] Comment:Preliminary automate d absolute neutrophil count. Value may change if manual differential is indicated. Neut Percent 69.1 % 06/07/2024 1:40 PM EDT [facility] Comment:Neutrophils equals s egs plus bands Imm Gran% 0.3 % 06/07/2024 1:40 PM EDT [facility] Comment:Automated count of m etamyelocytes, myelocytes and promyelocytes. Lymph Percent 21.3 % 06/07/2024 1:40 PM EDT [facility] Hutchinson Percent 8.5 % 06/07/2024 1:40 PM EDT [facility] Eos Percent 0.7 % 06/07/2024 1:40 PM EDT [facility] Baso Percent 0.1 % 06/07/2024 1:40 PM EDT [facility] Neut # 4.9 1.6 - 6.1 x10(3)/[facility] 06/07/2024 1:40 PM EDT [facility] Comment:Neutrophils equals s egs plus bands IMMGRAN# 0.0 0.0 - 0.1 x10(3)/[facility] 06/07/2024 1:40 PM EDT [facility] Comment:Automated count of m etamyelocytes, myelocytes and promyelocytes. An absolute IG <0.1 is reported as 0.0. Lymph # 1.5 1.2 - 3.9 x10(3)/[facility] 06/07/2024 1:40 PM EDT [facility] Hutchinson # 0.6 0.3 - 0.9 x10(3)/[facility] 06/07/2024 1:40 PM EDT [facility] Eos# 0.1 0.0 - 0.5 x10(3)/[facility] 06/07/2024 1:40 PM EDT [facility] Baso # 0.0 0.0 - 0.1 x10(3)/[facility] 06/07/2024 1:40 PM EDT [facility] Blood VENOUS BLOOD / Unknown Venipuncture / Unknown 06/07/2024 1:32 PM EDT 06/07/2024 1:32 PM EDT us Darío Rubio MD HEMATOLOGY ORDERABLES Final Re sult [facility] [address] [place] [address] documented in this encounter Visit Diagnoses Diagnosis Invasive ductal carcinoma of breast, left (HCC)- Primary Encounter for medication monitoring Encounter for therapeutic drug monitoring documented in this encounter Additional Health Concerns Assessment Noted Time PHQ-9 Depression Total Score: 13 024 1:47 PM EDT PHQ-2 Depression Total Score: 3 12/29/19 24 1:47 PM EDT documented as of this encounter Care Teams Mold Capper Relationship Specialty Start Date End Date Damaso Black MD [address] [facility] [address] [place] [address] PCP - General Family Medicine 11/22/22 Swapnil Lopez MD [address] [place] [phone] Internal Medicine-Gastroenterology 02/16/22 aDrío Rubio MD 1 [facility] [address] Internal Medicine-Medical Oncology 12/11/23 Mya Naranjo MD [address] [place] [address] [place] [address] Family Medicine - Hospice And Palliative Medicine 01/04/24 Ashley Ordonez APRN [address] [place] [address] [place] [address] Nurse Practitioner 01/04/24 Nicole Melendez, RN Registered Nurse 01/04/24 Aislinn Viera, RN Registered Nurse 02/07/24 Ronit Conner, RN Registered Nurse 04/10/24 Armando Vieira MSW Heel Cover Splitter 04/10/24 Vicki Amato, RN Registered Nurse 04/10/24 Trinh Bullock APRN [address] [facility] [address] Nurse Practitioner Nurse Practitioner-Family 04/10/24 Selina Olsen APRN [address] [facility] [place] [address] Nurse Practitioner 04/10/24 documented as of this encounter
--- OUTSIDE RECORDS SUMMARY | 2024-08-15 13:48 | XMS_ITS | Encounter Summary ---
Author Organization [place] [address] Care Team Providers Care Seo Assistant Name Role Phone Swapnil Lopez MD Unavailable [phone] Damaso Black MD Primary Care Provider [phone] Darío Rubio MD Unavailable [phone] Mya Naranjo MD Unavailable [phone] Ashley Ordonez WELLNESS EDUCATOR Unavailable [phone] Nicole Melendez RN Unavailable Unavailable Aislinn Viera RN Unavailable Unavailable Ronit Conner RN Unavailable Unavailable Armando Vieira CERTIFIED NURSING ASSISTANT Unavailable Unavailable Vicki Amato RN Unavailable UnavailTrinh Soto WELLNESS EDUCATOR Unavailable [phone] Selina Olsen WELLNESS EDUCATOR Unavailable [phone] Reason for Visit * Reason Onset Date Comments Medication Refill 04/19/2024 Encounter Details Date Type Department Care Team (Late st Contact Info) Description 04/19/2024 [address]ill [place] [address] x4 Ashley Ordonze APRN [address] [place] [address] Medication Refill Social History Tobacco Use Types [...] Assessment Author No 09/05/2017 11:13 AM Gabby DeL a Garza RMA * Is the person blind [...] OF 3 TABLETS PER DAY 90 Tablet 04/19/2024 documented in this encounter Miscellaneous Notes * Telephone Encounter - Ashley Ordonez APRN - 04/19/2024 1:54 PM EDT Refill on Tramadol. documented in this encounter Plan of Treatment Upcoming Encounters Date Type Department Care Team (Late st Contact Info) Description 09/11/2024 1:45 PM EST Office Visit [facility] [address] [facility] [address] Swapnil Lopez MD [address] [place] [address] 10/21/2024 2:[address] [facility] MRI [address] [place] [address] Jacky Shirley MD 1 [facility] [place] [address] 10/23/2024 1:45 PM EST Appointment [facility] [place] [address] Olena Darby APRN [address] [place] [address] [place]ER [place], [place] [id number] documented as of this encounter Goals Goal [...] MAX OF 3 TABLETS PER DAY Reorder 03/22/2024 04/19/2024 documented as of this encounter Additional Health Concerns Assessment Noted Time PHQ-9 Depression Total Score: 13 024 1:47 PM EDT PHQ-2 Depression Total Score: 3 12/29/19 24 1:47 PM EDT documented as of this encounter Care Teams Seo Assistant Relationship Specialty Start Date End Date Damaso Black MD [address] [facility] [address] [place] [address] PCP - General Family Medicine 11/22/22 Swapnil Lopez MD [address] [place] [phone] Internal Medicine-Gastroenterology 02/16/22 Darío Rubio MD [address] [place] [address] [place] [address] Internal Medicine-Medical Oncology 12/11/23 Mya Naranjo MD [address] [place] [address] [place] [address] Family Medicine - Hospice And Palliative Medicine 01/04/24 Ashley Ordonez APRN [address] [place] [address] [place] [address] Nurse Practitioner 01/04/24 Nicole Melendez, RN Registered Nurse 01/04/24 Aislinn Viera, RN Registered Nurse 02/07/24 Ronit Conner, RN Registered Nurse 04/10/24 Armando Vieira, ITA Home Inspector 04/10/24 Vicki Amato, RN Registered Nurse 04/10/24 Trinh Bullock APRN [address] [place] [address] [place] [address] Nurse Practitioner Nurse Practitioner-Family 04/10/24 Selina Olsen APRN [address] [place] [address] [place] [address] Nurse Practitioner 04/10/24 documented as of this encounter
--- OUTSIDE RECORDS SUMMARY | 2024-08-15 13:48 | XMS_ITS | Encounter Summary ---
Author Organization [place] [address] Care Team Providers Care Payroll Examiner Name Role Phone Swapnil Lopez MD Unavailable [phone] Damaso Black MD Primary Care Provider [phone] Darío Rubio MD Unavailable [phone] Mya Naranjo MD Unavailable [phone] Ashley Ordonez COMPONENT ASSEMBLER SUPERVISOR Unavailable [phone] Nicole Melendez RN Unavailable Unavailable Aislinn Viera RN Unavailable Unavailable Ronti Conner RN Unavailable Unavailable Armando Vieira SUPERVISOR HYDROCHLORIC AREA Unavailable Unavailable Vicki Amato RN Unavailable UnavailTrinh Soto COMPONENT ASSEMBLER SUPERVISOR Unavailable [phone] Selina Olsen COMPONENT ASSEMBLER SUPERVISOR Unavailable [phone] Reason for Visit * Reason Comments Pharmacy Oncology Management Pharmacy Reassessment Kisqali Encounter Details Date Type Department Care Team (Latest Contact Info) Description 04/03/2024 Specialty Pharmacy [facility] [address] [place] [address] Magalys Chiang RPH Pharmacy Oncology Management; Pharmacy Reassessment (Kisqali) Social History Tobacco Use Types Packs/Day Years [...] Garza LUA * Does this person have difficulty dressing [...] documented in this encounter Progress Notes * Magalys Chiang RPH - 04/03/2024 8:44 AM EDT [facility] Patient due for 3 months RA of ribociclib. CT CAP without new sites of disease. Repeat brain MRI pending - RA to be deferred until these results are available. Magalys Chiang, SamD, OP Hematology/Oncology Pharmacist [facility] 04/03/2024 8:44 AM * Magalys Chiang RPH - 04/03/2024 8:44 AM EDT Specialty Pharmacy - Hematology/Oncology Reassessment Primary Pouch Maker/Oncologist: Dr. Ramiro Saba Yossi Way is a 63 y.o. female, who was contacted for a reassessment of [facility] for MBC. Missed doses: yes - 1 or 2 in the last month Medication Adherence What concerns does the patient have in regards to their medications: None Patient reported X missed doses in the last month: 2 Any gaps in refill history greater than 2 weeks in the last 3 months: no Demonstrates understanding of importance of adherence: yes Informant: patient Reliability of informant: reliable Provider-estimated medication adherence level: 90-100% Reasons for non-adherence: no problems identified Refills needed for supportive medications: not needed Side effects: yes Adverse Effects Diarrhea: Pos (Comment: controlled with Lomotil) *All other systems reviewed and are negative Objective Lab Results Component Value Date CREATININE 0.9 04/01/2024 Lab Results Component Value Date WBC 6.4 03/08/2024 HGB 12.9 03/08/2024 HCT 39.8 03/08/2024 PLT 268 03/08/2024 NEUTABSPRE 3.4 03/08/2024 NEUTROABS 3.4 03/08/2024 LYMPHSABS 1.9 03/08/2024 MONOSABS 0.9 03/08/2024 EOSABS 0.1 03/08/2024 BASOABS 0.0 03/08/2024 Lab Results Component Value Date ALT 8 03/08/2024 AST 15 03/08/2024 ALKPHOS 118 03/08/2024 LABBILI <0.2 (L) 03/08/2024 BILIDIR <0.2 01/20/2022 PROT 7.0 03/08/2024 INR 1.17 (H) 06/25/2016 Current Outpatient Medications - WARNING: List may be incomplete due to filtering Medication Sig anastrozole Take 1 Tablet by mouth daily. Take with or without food diphenoxylate-atropine TAKE 2 TABLETS BY MOUTH FOUR TIMES DAILY NEEDED. NO MORE THAN 8 TABLETS PER DAY (Patient not taking: Reported on 04/15/2024) diphenoxylate-atropine TAKE 2 TABLETS BY MOUTH FOUR TIMES DAILY NEEDED. NO MORE THAN 8 TABLETS PER DAY loperamide Take 1 Capsule by mouth every 3 hours. predniSONE Take 1 Tablet by mouth daily. promethazine Take by mouth every 6 hours as needed for Nausea. Kisqali Take 2 tablets by mouth daily for 21 days followed by 7 days off traMADoL Take 1 Tablet by mouth every 4 hours as needed for Pain for up to 30 days. MAX OF 3 TABLETS PER DAY triamcinolone Apply topically 3 times daily. Assessment Oncology: [facility] Patient continues on Kisqali 400 mg by mouth once daily, days 1- days (DR due to diarrhea) with anastrozole. She is currently in the midst of cycle and off week is next week. Patient reports taking medication as prescribed and has tolerated medication well aside from diarrhea (+ Crohn's disease) Effectiveness: CT CAP 04/2024 without new sites of disease; brain MRI 04/2024 stable without new findings; PET to be repeated in 3 months Medication reconciliation was performed, allergy list remains the same. No new clinically significant drug interactions identified. Therapy reviewed and found to be appropriate and still warranted. Progress towards goals of therapy - disease control, prevent progression. Goals of therapy assessedwith provider. Will continue to follow to ensure medication goals align. Drug Interactions Clinically relevant drug interactions identified: yes Interactions list: Ribociclib (Moderate CY Inhibitor) may increase serum concentrations of the TraMADol and its active metabolite(s) 5-Aminosalicylic Acid Derivatives may enhance the myelosuppressive effect of Myelosuppressive Agents. Drug management plan: Monitor patient closely for evidence of tramadol toxicities, including seizures, respiratory depression and serotonin syndrome/serotonin toxicity, as the risk for adverse effects may be increased with use of this combination. The risk of these adverse effects may be higher in patients who initiate a moderate CY inhibitor after achieving a stable tramadol dose. If discontinuing a moderate CY inhibitor, monitor for decreased opioid efficacy and signs or symptoms of opioid withdrawal. Monitor patients for myelosuppression (eg, complete blood counts, platelet counts) when 5-aminosalicyclic acid (5-ASA) derivatives are combined with myelosuppressive agents. Plan Pharmacist does not recommend any changes to therapy. Patient to continue therapy as prescribed andis aware to call with questions/concerns. Patient has a follow up appointment on 05/01/[address] Rubio. Clinical Assessment Follow-up: 1 year Interim Assessment: next provider visit to review repeat labs (patient refused labs at visit yesterday) Reviewed plan of care, expected outcomes, and goals of therapy with patient who verbalized understanding and is agreeable with plan. Raj Chiang PharmD, [facility] Hematology/Oncology Pharmacist [facility] 04/16/2024 11:20 AM * Magalys Chiang RPH - 04/03/2024 8:44 AM EDT [facility] Patient had VV today with Dr. Rubio - no new issues noted per chart review. Labs were not repeated. Raj Chiang PharmD, [facility] Hematology/Oncology Pharmacist [facility] 05/01/2024 4:19 PM documented in this encounter Plan of Treatment Upcoming Encounters Date Type Department Care Team (Late st Contact Info) Description 09/11/2024 1:45 PM EST Office Visit [facility] [address] [place] [address] Swapnil Lopez MD [address] [place] [address] 10/21/2024 2:00 PM EST Appointment [facility] MRI [address] [place] [address] Jacky Shirley MD 1 [facility] [place] [address] 10/23/2024 1:45 PM EST Appointment [facility] [place] [address] Olena Darby APRN [address] [place] [address] [place] [address] documented as of this encounter [...] documented as of this encounter Care Teams Payroll Examiner Relationship Specialty Start Date End Date Damaso Black MD [address] [facility] [address] [place] [address] PCP - General Family Medicine 11/22/22 Swapnil Lopez MD [address] [place] [address] Internal Medicine-Gastroenterology 02/16/22 Darío Rubio MD [address] [place] [address] [place] [address] Internal Medicine-Medical Oncology 12/11/23 Mya Naranjo MD [address] [place] [address] [place] [address] Family Medicine - Hospice And Palliative Medicine 01/04/24 Ashley Ordonez APRN [address] [place] [address] [place] [address] Nurse Practitioner 01/04/24 Nicole Melendez, RN Registered Nurse 01/04/24 Aislinn Viera, RN Registered Nurse 02/07/24 Ronit Conner, ANGE Registered Nurse 04/10/24 Armando Vieira MSW Mental Retardation Aide 04/10/24 Vicki Amato, RN Registered Nurse 04/10/24 Trinh Bullock APRN [address] [facility] [place] [address] Nurse Practitioner Nurse Practitioner-Family 04/10/24 Selina Olsen APRN [address] [facility] [place] [address] Nurse Practitioner 04/10/24 documented as of this encounter
--- OUTSIDE RECORDS SUMMARY | 2024-08-15 13:48 | XMS_ITS | Encounter Summary ---
Author Organization [facility] [place] [address] Care Team Providers Care Odd Ticket Clerk Name Role Phone Swapnil Lopez MD Unavailable [phone] Damaso Black MD Primary Care Provider [phone] Darío Rubio MD Unavailable [phone] Mya Naranjo MD Unavailable [phone] Ashley Ordonez APRN Unavailable [phone] Nicole Melendez RN Unavailable Unavailable Aislinn Viera RN Unavailable Unavailable Encounter Details Date Type Department Care Team (Latest Contact Info) Description 03/25/2024 Travel Social History Tobacco Use Types Packs/Day [...] Author No 09/05/2017 11:13 AM EST Gabby Mercedes, SHANNON * Is the person blind or does he/she have serious difficulty seeing even when wearing glasses? Answer Date of Assessment Author No 09/05/2017 11:13 AM EST Gabby Mercedes RMA * Does this person have serious difficulty walking or climbing stairs? Answer Date of Assessment Author No 09/05/2017 11:13 AM EST Gabby Mercedes RMA * Does this person have difficulty [...] PM EST Office Visit [facility] [address] [facility] [place] [address] Swapnil Lopez MD [address] [place] [address] 10/21/2024 2:00 PM EST Appointment [facility] MRI [address] [place] [address] Jacky Shirley MD [address] [place] [address] [place] [address] 10/23/2024 1:45 PM EST Appointment [facility] [place] [address] Olena Darby APRN [address] [place] [address] [place] [address] documented as of this encounter [...] documented as of this encounter Care Teams Odd Ticket Clerk Relationship Specialty Start Date End Date Damaso Black MD [address] [facility] [address] [place], [place] [id number] PCP - General Family Medicine 11/22/22 Swapnil Lopez MD [address] [place] [address] Internal Medicine-Gastroenterology 02/16/22 Darío Rubio MD [address] [facility] [place] [address] Internal Medicine-Medical Oncology 12/11/23 Mya Naranjo MD [address] [facility] [place] [address] Family Medicine - Hospice And Palliative Medicine 01/04/24 Ashley Ordonez APRN [address] [facility] [address] Nurse Practitioner 01/04/24 Nicole Melendez, RN Registered Nurse 01/04/24 Aislinn Viera, ANGE Registered Nurse 02/07/24 documented as of this encounter
--- OUTSIDE RECORDS SUMMARY | 2024-08-15 13:48 | XMS_ITS | Encounter Summary ---
Author Organization [place] [address] Care Team Providers Care Windows Infrastructure Engineer Name Role Phone Swapnil Lopez MD Unavailable [phone] Damaso Black MD Primary Care Provider [phone] Darío Rubio MD Unavailable [phone] Mya Naranjo MD Unavailable [phone] Ashley Ordonez APRN Unavailable [phone] Nicole Melendez RN Unavailable Unavailable Aislinn Viera RN Unavailable Unavailable Reason for Visit * Reason Onset Date Comments Reschedule 03/20/2024 Reschedule TODAY 'S APPOINTMENT TIME Encounter Details Date Type Department Care Team (Late st Contact Info) Description 03/20/2024 Telephone [facility] Medical Oncology [place] [id number] Ashley Ordonez, YON [address] [place] [address] Reschedule (Reschedule TODAY'S APPOINTMENT TIME) Social History Tobacco Use Types Packs/Day Years [...] encounter Miscellaneous Notes * Telephone Encounter - Veda Mcfarland, Clerical Staff - 03/20/2024 1:10 PM EDT lm for pt to come back into the clinic as soon as she could * Telephone Encounter - Nicole Melendez RN - 03/20/2024 1:02 PM EDT Thank you * Telephone Encounter - Tessa Dotson, Clerical Staff - 03/20/2024 12:31 PM EDT Reason for call: Marleni would like to know if she can come in at 1:00 today, for her appointment. She is currently scheduled for 3:00 I attempted to reach Veda by phone and teams and she was unavailable. Preferred call back number:[phone] documented in this encounter Plan of Treatment Upcoming Encounters Date Type Department Care Team (Late st Contact Info) Description 09/11/2024 1:45 PM EST Office Visit [facility] [address] [facility], [place] [phone] Swapnil Lopez MD [address] [place] [address] 10/21/2024 2:00 PM EST Appointment [facility] MRI [address] [place] [address] Jacky Shirley MD [address] [place] [address] CANCER CARE [place], [place] [id number] 10/23/2024 1:45 PM EST Appointment [facility] [place] [address] Olena Darby APRN [address] [place] [address] CANCER [place], [place] [id number] documented as of this encounter Goals Goal [...] documented as of this encounter Care Teams Windows Infrastructure Engineer Relationship Specialty Start Date End Date Damaso Black MD [address] [facility] [address] [place] [address] PCP - General Family Medicine 11/22/22 Swapnil Lopez MD [address] [place] [phone] Internal Medicine-Gastroenterology 02/16/22 Darío Rubio MD [address] [facility] [place] [address] Internal Medicine-Medical Oncology 12/11/23 Mya Naranjo MD [address] [facility] [place] [address] Family Medicine - Hospice And Palliative Medicine 01/04/24 Ashley Ordonez APRN [address] [facility] [place] [address] Nurse Practitioner 01/04/24 Nicole Melendez, RN Registered Nurse 01/04/24 Aislinn Viera, ANGE Registered Nurse 02/07/24 documented as of this encounter
--- OUTSIDE RECORDS SUMMARY | 2024-08-15 13:49 | XMS_ITS | Encounter Summary ---
Author [place] [address] Care Team Providers Care Jailer Chief Name Role Phone Swapnil Lopez MD Unavailable [phone] Damaso Black MD Primary Care Provider [phone] Darío Rubio MD Unavailable [phone] Mya Naranjo MD Unavailable [phone] Ashley Ordonez APRN Unavailable [phone] Nicole Melendez RN Unavailable Unavailable Aislinn Viera RN Unavailable Unavailable Encounter Details Date Type Department Care Team (Latest Contact Info) Description 03/08/2024 1:15 PM EDT - 03/08/2024 1:29 PM EDT Hospital Encounter [facility] [place] [phone] Jacky Shirley MD [address] [place] [address] [place] [address] Invasive ductal carcinoma of breast, left (HCC) [...] 11:13 AM LUCÍA Mercedes Gabby SHANNON * Does this person have difficulty dressing or bathing? Answer Date of Assessment Author No 09/05/2017 11:13 AM LUCÍA Gabby Mercedes SHANNON * Because of a physical, mental [...] La Garza SHANNON documented in this encounter Medications at Time [...] PM EST Office Visit [facility] [address] [place] [address] Swapnil Lopez MD [address] [place] [address] 10/21/2024 2:[address] [facility] MRI [address] [place] [address] Jacky Shirley MD 1 [facility] CANCER CARE [place], [place] [phone] 10/23/2024 1:45 PM EST Appointment [facility] [place] [address] Olena Darby APRN [address] [place] [address] CANCER CARE [place], [place] [phone] documented as of this encounter Goals Goal Patient Goal Type Associated Problems Recent Progress Patient-Stated? Author Breast [facility] Mary Kate Vázquez, RN Note: Patient acknowledges understanding of new diagnosis, plan of care, available resources and how to contact Nurse Navigator with any future questions or concerns. Maintain a healthy diet, exercise regularly and maintain an ideal body weight General Linda Perez, RMA documented as of this encounter Procedures Procedure Name Priority Date/Time Associated Diagnosis Comments CBC WITH DIFF Routine 03/08/2024 1:30 PM EDT Invasive ductal carcinoma of breast, left (HCC) COMPREHENSIVE METABOLIC PANEL Routine 03/08/2024 1:30 PM EDT Invasive ductal carcinoma of breast, left (HCC) documented in this encounter Results * (ABNORMAL) COMPREHENSIVE METABOLIC PANEL (03/08/2024 1:30 PM EDT) Sodium 142 136 - 145 mmol/L 03/08/2024 1:55 PM EDT [facility] Potassium 4.1 3.5 - 5.0 mmol/L 03/08/2024 1:55 PM EDT [facility] Chloride 106 98 - 107 mmol/L 03/08/2024 1:55 PM EDT [facility] Total CO2 24 22 - 29 mmol/L 03/08/2024 1:55 PM EDT [facility] Anion Gap 12 7 - 16 mmol/L 03/08/2024 1:55 PM EDT [facility] Calcium 9.4 8.8 - 10.4 mg/dL 03/08/2024 1:55 PM EDT [facility] Glucose Lvl 92 70 - 99 mg/dL 03/08/2024 1:55 PM EDT [facility] BUN 13 8 - 23 mg/dL 03/08/2024 1:55 PM EDT [facility] Creatinine 0.93 0.51 - 1.30 mg/dL 03/08/2024 1:55 PM EDT [facility] Albumin 4.0 3.2 - 4.6 gm/dL 03/08/2024 1:55 PM EDT [facility] Total Protein 7.0 6.4 - 8.3 gm/dL 03/08/2024 1:55 PM EDT [facility] Bili Total <0.2(L) 0.2 - 1.3 mg/dL 03/08/2024 1:55 PM EDT [facility] ALT 8 <=41 U/L 03/08/2024 1:55 PM EDT [facility] AST 15 <=40 U/L 03/08/2024 1:55 PM [facility] Alk Phos 118 36 - 123 U/L 03/08/2024 1:55 PM [facility] eGFR (CKD-EPIcr 2020) 69 >=60 mL/min/1.7 3 m2 03/08/2024 1:55 PM T [facility] Comment:Estimated GFR was ca lculated using the CKD-EPIcr (2020) equation refit without race. The equation is recommended by the National Kidney Foundation - [place] Society of Nephrology Task Force. Blood VENOUS BLOOD / Unknown Venipuncture / Unknown 03/08/2024 1:30 PM EDT 03/08/2024 1:30 PM EDT us Darío Rubio MD CHEMISTRY ORDERABLES Final Res ult [facility] [address] [place] [address] * CBC WITH DIFF (03/08/2024 1:30 PM EDT) WBC 6.4 3.7 - 10.3 x10(3)/mcL 03/08/2024 1:34 PM EDT [facility] RBC 4.43 3.90 - 5.20 x10(6)/mcL 03/08/2024 1:34 PM EDT [facility] Hgb 12.9 11.2 - 15.7 g/dL 03/08/2024 1:34 PM EDT [facility] Hct 39.8 34.0 - 45.0 % 03/08/2024 1:34 PM EDT [facility] MCV 89.8 80.0 - 100.0 fL 03/08/2024 1:34 PM EDT [facility] MCH 29.1 26.0 - 34.0 pg 03/08/2024 1:34 PM EDT [facility] MCHC 32.4 30.7 - 35.5 g/dL 03/08/2024 1:34 PM EDT [facility] RDW 14.9 <=14.9 % 03/08/2024 1:34 PM EDT [facility] Platelet 268 155 - 369 x10(3)/mcL 03/08/2024 1:34 PM EDT [facility] MPV 8.9 8.8 - 12.5 fL 03/08/2024 1:34 PM EDT [facility] Neut # Prelim 3.4 1.6 - 6.1 x10(3)/mcL 03/08/2024 1:34 PM EDT [facility] Comment:Preliminary automate d absolute neutrophil count. Value may change if manual differential is indicated. Neut Percent 53.6 % 03/08/2024 1:34 PM EDT [facility] Comment:Neutrophils equals s egs plus bands Imm Gran% 0.3 % 03/08/2024 1:34 PM EDT [facility] Comment:Automated count of m etamyelocytes, myelocytes and promyelocytes. Lymph Percent 30.3 % 03/08/2024 1:34 PM EDT [facility] Brantley Percent 13.3 % 03/08/2024 1:34 PM EDT [facility] Eos Percent 2.2 % 03/08/2024 1:34 PM EDT [facility] Baso Percent 0.3 % 03/08/2024 1:34 PM EDT [facility] Neut # 3.4 1.6 - 6.1 x10(3)/[facility] 03/08/2024 1:34 PM EDT [facility] Comment:Neutrophils equals s egs plus bands IMMGRAN# 0.0 0.0 - 0.1 x10(3)/[facility] 03/08/2024 1:34 PM EDT [facility] Comment:Automated count of m etamyelocytes, myelocytes and promyelocytes. An absolute IG <0.1 is reported as 0.0. Lymph # 1.9 1.2 - 3.9 x10(3)/[facility] 03/08/2024 1:34 PM EDT [facility] Brantley # 0.9 0.3 - 0.9 x10(3)/[facility] 03/08/2024 1:34 PM EDT [facility] Eos# 0.1 0.0 - 0.5 x10(3)/[facility] 03/08/2024 1:34 PM EDT [facility] Baso # 0.0 0.0 - 0.1 x10(3)/[facility] 03/08/2024 1:34 PM EDT [facility] Blood VENOUS BLOOD / Unknown Venipuncture / Unknown 03/08/2024 1:30 PM EDT 03/08/2024 1:30 PM EDT us Darío Rubio MD HEMATOLOGY ORDERABLES Final Re sult [facility] [address] [place] [address] documented in this encounter Visit Diagnoses Diagnosis Invasive ductal carcinoma of breast, left (HCC) documented in this encounter Additional Health Concerns Assessment Noted Time PHQ-9 Depression Total Score: 13 024 1:47 PM EDT PHQ-2 Depression Total Score: 3 12/29/19 24 1:47 PM EDT documented as of this encounter Care Teams Jailer Chief Relationship Specialty Start Date End Date Damaso Black MD [address] [facility] [address] [place] [address] PCP - General Family Medicine 11/22/22 Swapnil Lopez MD [address] [place] [phone] Internal Medicine-Gastroenterology 02/16/22 Darío Rubio MD [address] [place] [address] Internal Medicine-Medical Oncology 12/11/23 Mya Naranjo MD [address] [place] [address] Family Medicine - Hospice And Palliative Medicine 01/04/24 Ashley Ordonez APRN [address] [place] [phone] Nurse Practitioner 01/04/24 Nicole Melendez, RN Registered Nurse 01/04/24 Aislinn Viera RN Registered Nurse 02/07/24 documented as of this encounter
--- OUTSIDE RECORDS SUMMARY | 2024-08-15 13:49 | XMS_ITS | Encounter Summary ---
Author Organization [place] [address] Care Team Providers Care Barbering Instructor Name Role Phone Swapnil Lopez MD Unavailable [phone] Damaso Black MD Primary Care Provider [phone] Darío Rubio MD Unavailable [phone] Mya Naranjo MD Unavailable [phone] Ashley Ordonez APRN Unavailable [phone] Nicole Melendez RN Unavailable Unavailable Aislinn Viera RN Unavailable Unavailable Reason for Visit * Reason Onset Date Comments Medication Management 02/21/2024 Ultram Med ication Management Encounter Details Date Type Department Care Team (Late st Contact Info) Description 02/21/2024 Telephone Cancer Care Medical Oncology [place] [id number] Mya Naranjo MD [address] [place], [place] [id number] Medication Management (Ultram Medication Management) Social History Tobacco Use Types Packs/Day Years [...] encounter Miscellaneous Notes * Telephone Encounter - Nicole Melendez RN - 02/21/2024 1:46 PM EDT Pt medication has been sent to [facility] per pt request and a PA has been sent previously. Nicole Melendez RN * Telephone Encounter - Tessa Dotson, Clerical Staff - 02/21/2024 1:28 PM EDT Reason for call: Seamus is calling back regarding the medication Ultram. She is having a difficult time getting it filled due to a prior authorization that is needed. She is asking for a return call to discuss the issue that she is having. She is aware that the medication was cancelled at [facility] and resent to [facility]. From: Marleni Sy To: Mya Naranjo Sent: 02/21/2024 1:01 PM EDT Subject: Prescription Hi. Jose contacted me, insurance won't pay without pre authorization and Jose won't fill it until then. You just sent one to [facility] a month ago, can you possibly change it to them? I go through this every month with this insurance, I'm too sick to deal with this. Thanks so much Preferred call back number:[phone] documented in this encounter Plan of Treatment Upcoming Encounters Date Type Department Care Team (Late st Contact Info) Description 09/11/2024 1:45 PM EST Office Visit [facility] [address] [place] [facility] [place] [address] Swapnil Lopez MD [address] [place] [address] 10/21/2024 2:00 PM EST Appointment [facility] [address] [place] [address] Jacky Shirley MD [address] [place] [address] [place], [place] [id number] 10/23/2024 1:45 PM EST Appointment [facility] [place] [address] Olena Darby APRN [address] [place] [address] [place], [place] [id number] documented as of this encounter Goals Goal [...] documented as of this encounter Care Teams Barbering Instructor Relationship Specialty Start Date End Date Damaso Black MD 1005 [facility] [address] [facility] [place] [id number] PCP - General Family Medicine 11/22/22 Swapnil Lopez MD [address] [place] [address] Internal Medicine-Gastroenterology 02/16/22 Darío Rubio MD [address] [facility] [place] [address] Internal Medicine-Medical Oncology 12/11/23 Mya Naranjo MD [address] [facility] [place] [address] Family Medicine - Hospice And Palliative Medicine 01/04/24 Ashley Ordonez APRN [address] [facility] [place] [address] Nurse Practitioner 01/04/24 Nicole Melendez, RN Registered Nurse 01/04/24 Aislinn Viera, ANGE Registered Nurse 02/07/24 documented as of this encounter
--- OUTSIDE RECORDS SUMMARY | 2024-08-15 13:49 | XMS_ITS | Encounter Summary ---
Author Organization [place] [address] Care Team Providers Care Network Technical Analyst Name Role Phone Swapnil Lopez MD Unavailable [phone] Damaso Black MD Primary Care Provider [phone] Darío Rubio MD Unavailable [phone] Mya Naranjo MD Unavailable [phone] Ashley Ordonez PSYCHOTHERAPIST COUNSELOR Unavailable [phone] Nicole Melendez RN Unavailable Unavailable Aislinn Viera RN Unavailable Unavailable Encounter Details Date Type Department Care Team (Late st Contact Info) Description 02/28/2024 Telephone [facility] [place] [address] [phone] Ashley Ordonez APRN [address] [place] [id number] Social History Tobacco Use Types Packs/Day Years [...] Miscellaneous Notes * Telephone Encounter - Veda Mcfarland Clerical Staff - 02/29/2024 10:32 AM EDT returned pts call to r/s [facility], left another message * Telephone Encounter - Nicole Melendez RN - 02/29/2024 7:43 AM EDT Thank you * Telephone Encounter - Keely Dillon Clerical Staff - 02/28/2024 4:58 PM EDT Reason for call: Patient returned call to schedule Follow up appointment. Please Return call to patient to schedule Preferred call back number:[phone] * Telephone Encounter - Veda Mcfarland, Clerical Staff - 02/28/2024 2:45 PM EDT left message to schedule palcare f/u documented in this encounter Plan of Treatment Upcoming Encounters Date Type Department Care Team (Late st Contact Info) Description 09/11/2024 1:45 PM EST Office Visit [facility] [address] [place] [address] Swapnil Lopez MD [address] [place] [address] 10/21/2024 2:00 PM EST Appointment [facility] MRI [address] [place] [address] Jacky Shirley MD [address] [place] [address] [place], [place] [id number] 10/23/2024 1:45 PM EST Appointment [facility] [place] [address] Olena Darby APRN [address] [place] [id number] documented as of this encounter Goals Goal [...] documented as of this encounter Care Teams Network Technical Analyst Relationship Specialty Start Date End Date Damaso Black MD 1005 [facility] [address] [place] [address] PCP - General Family Medicine 11/22/22 Swapnil Lopez MD [address] [place] [address] Internal Medicine-Gastroenterology 02/16/22 Darío Rubio MD [address] [place] [address] [place] [address] Internal Medicine-Medical Oncology 12/11/23 Mya Naranjo MD [address] [facility] [place] [place] [address] Family Medicine - Hospice And Palliative Medicine 01/04/24 Ashley Ordonez APRN [address] [facility] [place] [address] Nurse Practitioner 01/04/24 Nicole Melendez, RN Registered Nurse 01/04/24 Aislinn Viera, ANGE Registered Nurse 02/07/24 documented as of this encounter
--- OUTSIDE RECORDS SUMMARY | 2024-08-15 13:49 | XMS_ITS | Encounter Summary ---
Author Organization [place] [address] Care Team Providers Care Air Control/Anti Air Warfare Officer Name Role Phone Swapnil Lopez MD Unavailable [phone] Damaso Black MD Primary Care Provider [phone] Jeremías Amin MD Unavailable [phone] Mya Naranjo MD Unavailable [phone] Ashley Ordonez APRN Unavailable [phone] Nicole Melendez RN Unavailable Unavailable Aislinn Viera RN Unavailable Unavailable Encounter Details Date Type Department Care Team (Latest Contact Info) Description 03/08/2024 2:15 PM EDT - 03/08/2024 11:59 PM EDT Hospital Encounter [facility] [place] [phone] Invasive ductal carcinoma of breast, left (HCC); [...] PM EST Office Visit [facility] [address] [place] [address] Swapnil Lopez MD [address] [place] [address] 10/21/2024 2:00 PM EST Appointment [facility] MRI [address] [place], [place] [address] Jacky Shirley MD 1 [facility] [address] 10/23/2024 1:45 PM EST Appointment [facility] [address] [place], [place] [phone] Olena Darby APRN 1 [facility] [address] documented as of this encounter Goals Goal [...] Procedure Name Priority Date/Time Associated Diagnosis Comments EK EKG 12 LEAD Routine 03/08/2024 5:32 PM EDT Invasive ductal carcinoma of breast, 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 ? Test Date: ?2024-03-08 Pat Name: ? RA ROSALES ?Department: ?? DEPID ? Room: ? Gender: ? Female ? 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 Rt : ?1960 ? Requested By: JEREMÍAS AMIN Order Number: [id number] ?Reading MD: ?? Chuck Pineda, MD ? Measurements Intervals ?[place] ? Rate: ? 61 ? P: ?6 MO: ? 115 ?QRS: ?10 QRSD: ? 89 ? T: ?29 QT: ? 400 ? QTc: ?403 ? Interpretive Statements SINUS RHYTHM WITH SHORT MO INTERVAL Electronically Signed On 03-08-2024 15:35:32 EDT by Chuck Pineda MD Narrative Procedure Note Jeronimo Pineda MD - 03/08/[address] 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: Rt : 1960 Requested By: JEREMÍAS AMIN Order Number: [id number] Reading MD: Chuck Pineda MD Measurements Intervals [place] Rate: 61 P: 6 MO: 115 QRS: 10 QRSD: 89 T: 29 QT: 400 QTc: 403 Interpretive Statements SINUS RHYTHM WITH SHORT MO INTERVAL Electronically Signed On 03-08-2024 15:35:32 EDT by Chuck Pineda MD us Jeremías Amin MD IMG ECG ORDERABLES Final Resul t documented in this encounter Visit Diagnoses Diagnosis [...] documented as of this encounter Care Teams Air Control/Anti Air Warfare Officer Relationship Specialty Start Date End Date Damaso Black MD 1005 [facility] [address] [place] [address] PCP - General Family Medicine 11/22/22 Swapnil Lopez MD [address] [place] [address] Internal Medicine-Gastroenterology 02/16/22 Jeremías Amin MD [address] [facility] [place] [address] Internal Medicine-Medical Oncology 12/11/23 Mya Naranjo MD [address] [facility] [place] [address] Family Medicine - Hospice And Palliative Medicine 01/04/24 Ashley Ordonez APRN [address] [facility] [place] [address] Nurse Practitioner 01/04/24 Nicole Melendez, RN Registered Nurse 01/04/24 Aislinn Viera, ANGE Registered Nurse 02/07/24 documented as of this encounter
--- OUTSIDE RECORDS SUMMARY | 2024-08-15 13:49 | XMS_ITS | Encounter Summary ---
Author Organization [place] [address] Care Team Providers Care Modern And Contemporary Art Curator Name Role Phone Swapnil Lopez MD Unavailable [phone] Damaso Black MD Primary Care Provider [phone] Darío Rubio MD Unavailable [phone] Mya Naranjo MD Unavailable [phone] Ashley Ordonez APRN Unavailable [phone] Nicole Melendez RN Unavailable Unavailable Aislinn Viera RN Unavailable Unavailable Encounter Details Date Type Department Care Team (Late st Contact Info) Description 02/21/2024 Telephone Cancer Care Medical Oncology [place] [phone] Darío Rubio MD [address] [place], [place] [address] Social History Tobacco Use Types Packs/Day Years [...] Telephone Encounter - Aislinn Viera RN - 02/22/2024 8:[address] Lopez's office filled script for mesalamine. We refilled her lomotil. No further needs at this time. * Telephone Encounter - Aislinn Viera RN - 02/21/2024 12:24 PM EDT Called and LVM for Reza Alvarado. Discussed Dr. Lopez's team resuming care of lomotil as they prescribe higher doses than we do. Awaiting call back. * Telephone Encounter - Adrianna Cintron - 02/21/2024 11:51 AM EDT Reason for call: Reza Alvarado from [facility] calling RN Carine back. Angie states she has questions for Carine and would like a return call on her direct line @ [phone]. Preferred call back number:[phone] * Telephone Encounter - Aislinn Viera RN - 02/21/2024 9:18 AM EDT Called and spoke to Dr. Lopez's office. His note mentioned starting on Rinvoq for any flare ups. Per [facility], Rinvoq is not recommended with Kisquali because of the risk of additive immunosuppression. Alternative that could be used would be mesalamine, which is a C interaction. Relayed information to his office. Provided contact information for further questions or needs. documented in this encounter Plan of Treatment Upcoming Encounters Date Type Department Care Team (Late st Contact Info) Description 09/11/2024 1:45 PM EST Office Visit [facility] [address] [place] [address] Swapnil Lopez MD [address] [place] [address] 10/21/2024 2:00 PM EST Appointment [facility] MRI [address] [place] [address] Jacky Shirley MD [address] [place] [address] [place] [address] 10/23/2024 1:45 PM EST Appointment [facility] [place] [address] Olena Darby APRN [address] [place] [address] [place] [address] documented as of this encounter [...] documented as of this encounter Care Teams Modern And Contemporary Art Curator Relationship Specialty Start Date End Date Damaso Black MD [address] [place] [address] PCP - General Family Medicine 11/22/22 Swapnil Lopez MD [address] [place] [address] Internal Medicine-Gastroenterology 02/16/22 Darío Rubio MD [address] [place] [address] [place] [address] Internal Medicine-Medical Oncology 12/11/23 Mya Naranjo MD [address] [place] [address] [place] [address] Family Medicine - Hospice And Palliative Medicine 01/04/24 Ashley Ordonez APRN [address] [facility] [place] [address] Nurse Practitioner 01/04/24 Nicole Melendez, RN Registered Nurse 01/04/24 Aislinn Viera, ANGE Registered Nurse 02/07/24 documented as of this encounter
--- OUTSIDE RECORDS SUMMARY | 2024-08-15 13:49 | XMS_ITS | Encounter Summary ---
Author Organization [facility] [place] [address] Care Team Providers Care Kiln Maintenance Name Role Phone Swapnil Lopez MD Unavailable Damaso Black MD Primary Care Provider [phone] Darío Rubio MD Unavailable Mya Naranjo MD Unavailable [phone] Ashley Ordonez APRN Unavailable [phone] Nicole Melendez RN Unavailable Unavailable Aislinn Viera RN Unavailable Unavailable Encounter Details Date Type Department Care Team (Latest Contact Info) Description 03/06/2024 Travel Social History Tobacco Use Types Packs/Day [...] PM EST Office Visit [facility] [address] [facility] [place] [address] Swapnil Lopez MD [address] [place] [address] 10/21/2024 2:00 PM EST Appointment [facility] MRI [address] [place] [address] Jacky Shirley MD [address] [place] [address] [place] [address] 10/23/2024 1:45 PM EST Appointment [facility] [place] [address] Olena aDrby APRN [address] [place] [address] [place] [address] documented as of this encounter [...] documented as of this encounter Care Teams Kiln Maintenance Relationship Specialty Start Date End Date Damaso Black MD 1005 [facility] [address] [place] [place], [place] [phone] PCP - General Family Medicine 11/22/22 Swapnil Lopez MD [address] [place] [address] Internal Medicine-Gastroenterology 02/16/22 Darío Rubio MD 1 [facility] [place] [address] Internal Medicine-Medical Oncology 12/11/23 Mya Naranjo MD 1 [facility] [place] [address] Family Medicine - Hospice And Palliative Medicine 01/04/24 Ashley Ordonez APRN 1 [facility] [place] [address] Nurse Practitioner 01/04/24 Nicole Melendez, RN Registered Nurse 01/04/24 Aislinn Viera, ANGE Registered Nurse 02/07/24 documented as of this encounter
--- OUTSIDE RECORDS SUMMARY | 2024-08-15 13:49 | XMS_ITS | Encounter Summary ---
Author Organization [place] [address] Care Team Providers Care Geography Professor Name Role Phone Swapnil Lopez MD Unavailable [phone] Damaso Black MD Primary Care Provider [phone] Darío Rubio MD Unavailable [phone] Mya Naranjo MD Unavailable [phone] Ashley Ordonez APRN Unavailable [phone] Nicole Melendez RN Unavailable Unavailable Aislinn Viera RN Unavailable Unavailable Reason for Visit * Reason Onset Date Comments Reschedule 03/04/2024 Move appt from to 03/08 Encounter Details Date Type Department Care Team (Late st Contact Info) Description 03/04/2024 Telephone Cancer Care Medical Oncology [place] [phone] Darío Rubio MD [address] [place] [address] Reschedule (Move appt from 03/05 to 03/08) Social History Tobacco Use Types Packs/Day Years [...] Encounter - Nikky Virgen, Clerical Staff - 03/06/2024 8:04 AM EDT Pt rescheduled for Monday with Suri. Neither Cathleen or Anais was available. * Telephone Encounter - Nikky Virgen, Elierical Staff - 03/05/2024 9:23 AM EDT LVM advising pt to call [phone] to reschedule appt. * Telephone Encounter - Aislinn Viera RN - 03/04/2024 1:53 PM EDT Please reschedule patient for Monday with [facility]. documented in this encounter Plan of Treatment Upcoming Encounters Date Type Department Care Team (Late st Contact Info) Description 09/11/2024 1:45 PM EST Office Visit [facility] [address] [facility] [place], [place] [phone] Swapnil Lopez MD [address] [facility] [place] [address] 10/21/2024 2:00 PM EST Appointment [facility] MRI [address] [place] [address] Jacky Shirley MD [address] [place] [address] [facility]ER [place], [place] [phone] 10/23/2024 1:45 PM EST Appointment [facility] [place] [address] Olena Darby APRN [address] [place] [address] CANCER [place], [place] [phone] documented as of this encounter Goals Goal [...] documented as of this encounter Care Teams Geography Professor Relationship Specialty Start Date End Date Damaso Black MD 1005 [facility] [address] [place] [address] PCP - General Family Medicine 11/22/22 Swapnil Lopez MD [address] [place] [address] Internal Medicine-Gastroenterology 02/16/22 Darío Rubio MD [address] [facility] [place] [address] Internal Medicine-Medical Oncology 12/11/23 Mya Naranjo MD [address] [facility] [place] [address] Family Medicine - Hospice And Palliative Medicine 01/04/24 Ashley Ordonez APRN [address] [facility] [place] [address] Nurse Practitioner 01/04/24 Nicole Melendez, RN Registered Nurse 01/04/24 Aislinn Viera, ANGE Registered Nurse 02/07/24 documented as of this encounter
--- OUTSIDE RECORDS SUMMARY | 2024-08-15 13:49 | XMS_ITS | Encounter Summary ---
Author Organization [place] [address] Care Team Providers Care Canvas Cutter Machine Name Role Phone Swapnil Lopez MD Unavailable [phone] Damaso Black MD Primary Care Provider [phone] Darío Rubio MD Unavailable [phone] Mya Naranjo MD Unavailable [phone] Ashley Ordonez APRN Unavailable [phone] Nicole Melendez RN Unavailable Unavailable Aislinn Viera RN Unavailable Unavailable Reason for Visit * Reason Comments Medication Refill Encounter Details Date Type Department Care Team (Late st Contact Info) Description 02/28/2024 Refill Cancer Care Medical Oncology [place] [phone] Darío Rubio MD [address] [place], [place] [phone] Medication Refill Social History Tobacco Use Types [...] followed by 7 days off 42 Tablet 03/05/2024 12:25 PM EDT 02/28/2024 documented in this encounter Miscellaneous Notes * Telephone Encounter - Aislinn Viera RN - 02/28/2024 11:03 AM EDT Received refill request for kisquali for pt. Reviewed chart; pt has f/u appt on 03/05/2024. Last RX was sent on 01/23/2024 with 0 refills, so refill is appropriate. Last office note on 02/07/2024 states: Continue 400 mg of kisqali. Escript for kisquali sent to pt's pharmacy. documented in this encounter Plan of Treatment Upcoming Encounters Date Type Department Care Team (Late st Contact Info) Description 09/11/2024 1:45 PM EST [facility] Visit [facility] [address] [place] [place] [facility] [place] [address] Swapnil Lopez MD [address] [place] [address] 10/21/2024 2:00 PM EST Appointment [facility] MRI [address] [place], [place] [phone] Jacky Shirley MD 1 [facility] [place]CER [place], [place] [phone] 10/23/2024 1:45 PM EST Appointment [place] [address] Olena Darby APRN [address] [place] [id number] documented as of this encounter Goals Goal [...] days followed by 7 days off Reorder 01/23/2024 02/28/2024 documented as of this encounter Additional Health Concerns Assessment Noted Time PHQ-9 Depression Total Score: 13 024 1:47 PM EDT PHQ-2 Depression Total Score: 3 12/29/19 24 1:47 PM EDT documented as of this encounter Care Teams Canvas Cutter Machine Relationship Specialty Start Date End Date Damaso Black MD 1005 [facility] [address] [place] [address] PCP - General Family Medicine 11/22/22 Swapnil Lopez MD [address] [place] [address] Internal Medicine-Gastroenterology 02/16/22 Darío Rubio MD [address] [place] [address] Internal Medicine-Medical Oncology 12/11/23 Mya Naranjo MD [address] [place] [address] Family Medicine - Hospice And Palliative Medicine 01/04/24 Ashley Ordonez APRN [address] [place] [address] Nurse Practitioner 01/04/24 Nicole Melendez, RN Registered Nurse 01/04/24 Aislinn Viera, ANGE Registered Nurse 02/07/24 documented as of this encounter
--- OUTSIDE RECORDS SUMMARY | 2024-08-15 13:49 | XMS_ITS | Encounter Summary ---
[facility] Address [address] [place] [address] Care Team Providers Care Silverware Buffer Name Role Phone Swapnil Lopez MD Unavailable [phone] Damaso Black MD Primary Care Provider [phone] Darío Rubio MD Unavailable [phone] Mya Naranjo MD Unavailable [phone] Ashley Ordonez APRN Unavailable [phone] Nicole Melendez RN Unavailable Unavailable Aislinn Viera RN Unavailable Unavailable Reason for Visit * Reason Onset Date Comments Biologics 02/20/2024 Encounter Details Date Type Department Care Team (Late st Contact Info) Description 02/20/2024 Telephone [facility] [address] [id number] Jeremi, Trisha, RMA Biologics Social History Tobacco Use Types Packs/Day Years [...] encounter Miscellaneous Notes * Telephone Encounter - Trisha Blood RMA - 02/20/2024 1:42 PM EDT Images from the original note were not included. Swapnil Lopez MD Perdue, Shannon, RMA1 hour ago (12:26 PM) Noted. Stop Rinvoq and will hold on further tx at this time. Mile Jiménez RMA Fagel, Daniel G, MD1 hour ago (12:12 PM) SP please advise thank you. Marleni Lin Tsg_Clinical (supporting Swapnil Lopez MD)1 hour ago (12:07 PM) Oh, Aislinn @Dr. Rosario office said it will have reaction with Sohan, they were going to call your office and tell you I can't take it. Thanks! * Telephone Encounter - Trisha Blood RMA - 02/20/2024 12:04 PM EDT ----- Message from SHANNON Bills sent at 02/20/2024 11:24 AM EDT ----- Swapnil Lopez MD YouJust now (11:23 AM) Yes per strd orders You Swapnil Lopez MD2 hours ago (8:38 AM) SP Would you like to start the rinvoq. Please advise thank you. Marleni Lin Tsg_Clinical (supporting Swapnil Lopez MD)16 hours ago (6:47 PM) I feel like I would like to try the Rinvoq if it would eventually lighten up on how much lomotil I have to take. Dr. Lopez said if I change my mind he would call in a prescription. Thank you! documented in this encounter Plan of Treatment Upcoming Encounters Date Type Department Care Team (Late st Contact Info) Description 09/11/2024 1:45 PM EST Office Visit [facility] [address] [place] [address] Swapnil Lopez MD [address] [place] [address] 10/21/2024 2:00 PM EST Appointment [facility] MRI [address] [place] [address] Jacky Shirley MD [address] [place] [address] [place] [address] 10/23/2024 1:45 PM EST Appointment [facility] [place] [address] Olena Darby APRN [address] [place] [address] [place] [address] documented as of this encounter [...] documented as of this encounter Care Teams Silverware Buffer Relationship Specialty Start Date End Date Damaso Black MD 1005 [facility] [address] [place], [place] [phone] PCP - General Family Medicine 11/22/22 Swapnil Lopez MD [address] [place] [address] Internal Medicine-Gastroenterology 02/16/22 Darío Rubio MD [address] [facility] [place] [address] Internal Medicine-Medical Oncology 12/11/23 Mya Naranjo MD [address] [facility] [place] [address] Family Medicine - Hospice And Palliative Medicine 01/04/24 Ashley Ordonez APRN [address] [facility] [place] [address] Nurse Practitioner 01/04/24 Nicole Melendez, RN Registered Nurse 01/04/24 Aislinn Viera, RN Registered Nurse 02/07/24 documented as of this encounter
--- OUTSIDE RECORDS SUMMARY | 2024-08-15 13:49 | XMS_ITS | Encounter Summary ---
Author Organization [place] [address] Care Team Providers Care Math Specialist Name Role Phone Swapnil Lopez MD Unavailable [phone] Damaso Black MD Primary Care Provider [phone] Darío Rubio MD Unavailable [phone] Mya Naranjo MD Unavailable [phone] Ashley Ordonez APRN Unavailable [phone] Nicole Melendez RN Unavailable Unavailable Aislinn Viera RN Unavailable Unavailable Encounter Details Date Type Department Care Team (Late st Contact Info) Description 02/27/2024 Telephone [facility] [place] [id number] Darío Rubio MD [address] [place], [place] [id number] Social History Tobacco Use Types Packs/Day Years [...] Telephone Encounter - Aislinn Viera RN - 02/27/2024 10:27 AM EDT Pre-access has tried to call patient 3 times. Sent [employer] message to patient with number to call to schedule. documented in this encounter Plan of Treatment Upcoming Encounters Date Type Department Care Team (Late st Contact Info) Description 09/11/2024 1:45 PM EST Office Visit [facility] [address] [place] [facility] [place] [address] Swapnil Lopez MD [address] [place] [address] 10/21/2024 2:00 PM EST Appointment [facility] [address] [place], [place] [phone] Jacky Shirley MD 1 [facility] [place] [address] 10/23/2024 1:45 PM EST Appointment [facility] ON[facility] [address] [place], [place] [phone] Olena Darby APRN 1 [facility] [address] documented as of this encounter Goals Goal [...] documented as of this encounter Care Teams Math Specialist Relationship Specialty Start Date End Date Damaso Black MD 1005 [facility] [address] [place] [address] PCP - General Family Medicine 11/22/22 Swapnil Lopez MD [address] [place] [address] Internal Medicine-Gastroenterology 02/16/22 Darío Rubio MD [address] [place] [address] [place] [address] Internal Medicine-Medical Oncology 12/11/23 Mya Naranjo MD [address] [place] [address] [place] [address] Family Medicine - Hospice And Palliative Medicine 01/04/24 Ashley Ordonez APRN [address] [place] [address] [place] [address] Nurse Practitioner 01/04/24 Nicole Melendez, RN Registered Nurse 01/04/24 Aislinn Viera, ANGE Registered Nurse 02/07/24 documented as of this encounter
--- OUTSIDE RECORDS SUMMARY | 2024-08-15 13:49 | XMS_ITS | Encounter Summary ---
[facility] [address] [place] [address] Care Team Providers Care Shower Enclosure Installer Name Role Phone Swapnil Lopez MD Unavailable [phone] Damaso Black MD Primary Care Provider [phone] Darío Rubio MD Unavailable [phone] Mya Naranjo MD Unavailable [phone] Ashley Ordonez APRN Unavailable [phone] Nicole Melendez RN Unavailable Unavailable Aislinn Viera RN Unavailable Unavailable Reason for Visit * Reason Onset Date Comments Medication Reaction 02/21/2024 Encounter Details Date Type Department Care Team (Late st Contact Info) Description 02/21/2024 Telephone [facility] [address] [place] [address] Swapnil Lopez MD [address] [place] [address] Medication Reaction Social History Tobacco Use Types Packs/Day Years [...] encounter Miscellaneous Notes * Telephone Encounter - Camelia Mckee MA - 02/21/2024 2:05 PM EDT noted thank you, called Betsy back and left a voicemail stating you(me) sent medication to cancer care. * Telephone Encounter - Swapnil Lopez MD - 02/21/2024 11:42 AM EDT Mesalamine ER 1.2 gms #360 4 po qday 3 RF * Telephone Encounter - Camelia Mckee MA - 02/21/2024 9:[address] [facility] called and stated the pt has drug interaction with Rinvoq and would like to know if we can switch it to mesalamine. Please advice, thank you. nurse who called was betsy [phone] documented in this encounter Plan of Treatment Upcoming Encounters Date Type Department Care Team (Late st Contact Info) Description 09/11/2024 1:45 PM EST Office [facility] [address] [place], [place] [phone] Swapnil Lopez MD [address] [place] [address] 10/21/2024 2:00 PM EST Appointment [facility] MRI [address] [place] [address] Jacky Shirley MD [address] [place] [address] CANCER [place], [place] [phone] 10/23/2024 1:45 PM EST Appointment [facility] [place] [address] Olena Darby APRN [address] [place] [id number] documented as of this encounter Goals Goal [...] documented as of this encounter Care Teams Shower Enclosure Installer Relationship Specialty Start Date End Date Damaso Black MD [address] [place] [address] PCP - General Family Medicine 11/22/22 Swapnil Lopez MD [address] [place] [address] Internal Medicine-Gastroenterology 02/16/22 Darío Rubio MD [address] [place] [address] [place] [address] Internal Medicine-Medical Oncology 12/11/23 Mya Naranjo MD [address] [place] [address] [place] [address] Family Medicine - Hospice And Palliative Medicine 01/04/24 Ashley Ordonez APRN [address] [place] [address] [place] [address] Nurse Practitioner 01/04/24 Nicole Melendez, RN Registered Nurse 01/04/24 Aislinn Viera, ANGE Registered Nurse 02/07/24 documented as of this encounter
--- OUTSIDE RECORDS SUMMARY | 2024-08-15 13:49 | XMS_ITS | Encounter Summary ---
Author Organization [place] [address] Care Team Providers Care Grapple Skidder Operator Name Role Phone Swapnil Lopez MD Unavailable [phone] Damaso Black MD Primary Care Provider [phone] Darío Rubio MD Unavailable [phone] Mya Naranjo MD Unavailable [phone] Ashley Ordonez APRN Unavailable [phone] Nicole Melendez RN Unavailable Unavailable Aislinn Viera RN Unavailable Unavailable Encounter Details Date Type Department Care Team (Late st Contact Info) Description 03/04/2024 Orders Only [facility] Medical Oncology [place] [phone] Darío Rubio MD [address] [place], [place] [phone] Invasive ductal carcinoma of breast, left (HCC) [...] No 09/05/2017 11:13 AM LUCÍA Mercedes Gabby RMA * Does this person have serious difficulty walking or climbing stairs? Answer Date of Assessment Author No 09/05/2017 11:13 AM Gabby De La Garza RMA * Does this person have difficulty dressing or bathing? Answer Date of Assessment Author No 09/05/2017 11:13 AM LUCÍA Mercedes GabbySHANNON * Because of a physical, mental or [...] Entry Date Author No 09/05/2017 11:13 AM Yolis De La GarzaileySHANNON documented in this encounter Plan of Treatment Upcoming Encounters Date Type Department Care Team (Late st Contact Info) Description 09/11/2024 1:45 PM EST Office Visit [facility] [address] [place] [address] Swapnil Lopez MD [address] [place] [address] 10/21/2024 2:00 PM EST Appointment [facility] MRI [address] [place] [address] Jacky Shirley MD [address] [place] [address] [place] [address] 10/23/2024 1:45 PM EST Appointment [facility] [place] [place] [address] Olena Ford, YON 1 [facility] [place] [address] documented as of this encounter Goals Goal [...] Walden, RMA documented as of this encounter Results * (ABNORMAL) COMPREHENSIVE METABOLIC PANEL (03/08/2024 1:30 PM EDT) Sodium 142 136 - 145 mmol/L 03/08/2024 1:55 PM EDT [facility] Potassium 4.1 3.5 - 5.0 mmol/L 03/08/2024 1:55 PM EDT [facility] Chloride 106 98 - 107 mmol/L 03/08/2024 1:55 PM EDT [facility] Total CO2 24 22 - 29 mmol/L 03/08/2024 1:55 PM EDT [facility] Anion Gap 12 7 - 16 mmol/L 03/08/2024 1:55 PM EDT [facility] Calcium 9.4 8.8 - 10.4 mg/dL 03/08/2024 1:55 PM EDT [facility] Glucose Lvl 92 70 - 99 mg/dL 03/08/2024 1:55 PM EDT [facility] BUN 13 8 - 23 mg/dL 03/08/2024 1:55 PM EDT [facility] Creatinine 0.93 0.51 - 1.30 mg/dL 03/08/2024 1:55 PM EDT [facility] Albumin 4.0 3.2 - 4.6 gm/dL 03/08/2024 1:55 PM EDT [facility] Total Protein 7.0 6.4 - 8.3 gm/dL 03/08/2024 1:55 PM EDT [facility] Bili Total <0.2(L) 0.2 - 1.3 mg/dL 03/08/2024 1:55 PM EDT [facility] ALT 8 <=41 U/L 03/08/2024 1:55 PM EDT [facility] AST 15 <=40 U/L 03/08/2024 1:55 PM EDT [facility] Alk Phos 118 36 - 123 U/L 03/08/2024 1:55 PM EDT [facility] eGFR (CKD-EPIcr 2020) 69 >=60 mL/min/1.7 3 m2 03/08/2024 1:55 PM EDT [facility] Comment:Estimated GFR was ca lculated using the CKD-EPIcr (2020) equation refit without race. The equation is recommended by the National Kidney Foundation - [place] [employer] of Nephrology Task Force. Blood VENOUS BLOOD / Unknown Venipuncture / Unknown 03/08/2024 1:30 PM EDT 03/08/2024 1:30 PM EDT us Darío Rubio MD CHEMISTRY ORDERABLES Final Res ult [facility] [address] [place] [address] * CBC WITH DIFF (03/08/2024 1:30 PM EDT) WBC 6.4 3.7 - 10.3 x10(3)/mcL 03/08/2024 1:34 PM EDT [facility] RBC 4.43 3.90 - 5.20 x10(6)/mcL 03/08/2024 1:34 PM EDT [facility] Hgb 12.9 11.2 - 15.7 g/dL 03/08/2024 1:34 PM EDT [facility] Hct 39.8 34.0 - 45.0 % 03/08/2024 1:34 PM EDT [facility] MCV 89.8 80.0 - 100.0 fL 03/08/2024 1:34 PM EDT [facility] MCH 29.1 26.0 - 34.0 pg 03/08/2024 1:34 PM EDT [facility] MCHC 32.4 30.7 - 35.5 g/dL 03/08/2024 1:34 PM EDT [facility] RDW 14.9 <=14.9 % 03/08/2024 1:34 PM EDT [facility] Platelet 268 155 - 369 x10(3)/mcL 03/08/2024 1:34 PM EDT [facility] MPV 8.9 8.8 - 12.5 fL 03/08/2024 1:34 PM EDT [facility] Neut # Prelim 3.4 1.6 - 6.1 x10(3)/mcL 03/08/2024 1:34 PM EDT [facility] Comment:Preliminary automate d absolute neutrophil count. Value may change if manual differential is indicated. Neut Percent 53.6 % 03/08/2024 1:34 PM EDT [facility] Comment:Neutrophils equals s egs plus bands Imm Gran% 0.3 % 03/08/2024 1:34 PM EDT [facility] Comment:Automated count of m etamyelocytes, myelocytes and promyelocytes. Lymph Percent 30.3 % 03/08/2024 1:34 PM EDT [facility] [place] Percent 13.3 % 03/08/2024 1:34 PM EDT [facility] Eos Percent 2.2 % 03/08/2024 1:34 PM EDT [facility] Baso Percent 0.3 % 03/08/2024 1:34 PM EDT [facility] Neut # 3.4 1.6 - 6.1 x10(3)/mcL 03/08/2024 1:34 PM EDT [facility] Comment:Neutrophils equals s egs plus bands IMMGRAN# 0.0 0.0 - 0.1 x10(3)/mcL 03/08/2024 1:34 PM EDT [facility] Comment:Automated count of m etamyelocytes, myelocytes and promyelocytes. An absolute IG <0.1 is reported as 0.0. Lymph # 1.9 1.2 - 3.9 x10(3)/mcL 03/08/2024 1:34 PM EDT [facility] [place] # 0.9 0.3 - 0.9 x10(3)/[facility] 03/08/2024 1:34 PM EDT [facility] Eos# 0.1 0.0 - 0.5 x10(3)/[facility] 03/08/2024 1:34 PM EDT [facility] Baso # 0.0 0.0 - 0.1 x10(3)/[facility] 03/08/2024 1:34 PM EDT [facility] Blood VENOUS BLOOD / Unknown Venipuncture / Unknown 03/08/2024 1:30 PM EDT 03/08/2024 1:30 PM EDT us Darío Rubio MD HEMATOLOGY ORDERABLES Final Re sult [facility] [address] [place] [address] documented in this encounter Visit Diagnoses Diagnosis Invasive ductal carcinoma of breast, left (HCC)- Primary documented in this encounter Additional Health Concerns Assessment Noted Time PHQ-9 Depression Total Score: 13 024 1:47 PM EDT PHQ-2 Depression Total Score: 3 12/29/19 24 1:47 PM EDT documented as of this encounter Care Teams Grapple Skidder Operator Relationship Specialty Start Date End Date Damaso Black MD [address] [address] PCP - General Family Medicine 11/22/22 Swapnil Lopez MD [address] [place] [address] Internal Medicine-Gastroenterology 02/16/22 Darío Rubio MD [address] [place] [address] [place] [address] Internal Medicine-Medical Oncology 12/11/23 Mya Naranjo MD [address] [place] [address] [place] [address] Family Medicine - Hospice And Palliative Medicine 01/04/24 Ashley Ordonez APRN [address] [place] [address] [place] [address] Nurse Practitioner 01/04/24 Nicole Melendez, RN Registered Nurse 01/04/24 Aislinn Viera, ANGE Registered Nurse 02/07/24 documented as of this encounter
--- OUTSIDE RECORDS SUMMARY | 2024-08-15 13:49 | XMS_ITS | Encounter Summary ---
[facility] [address] [place] [address] Care Team Providers Care Fiscal Agent Name Role Phone Swapnil Lopez MD Unavailable [phone] Damaso Black MD Primary Care Provider [phone] Darío Rubio MD Unavailable [phone] Mya Naranjo MD Unavailable [phone] Ashley Ordonez APRN Unavailable [phone] Nicole Melendez RN Unavailable Unavailable Aislinn Viera RN Unavailable Unavailable Reason for Visit * Reason Onset Date Comments Other 03/13/2024 Encounter Details Date Type Department Care Team (Late st Contact Info) Description 03/13/2024 Telephone [facility] [address] [place] [address] Swapnil Lopez MD [address] [place] [address] Other Social History Tobacco Use Types Packs/Day Years [...] 11:13 AM EST Gabby Mercedes RMA * Is the person [...] Miscellaneous Notes * Telephone Encounter - Vicki Oneill - 03/13/2024 9:53 AM EDT Called to [facility]. JELENA/John Cobos per MyChart request. Left VM. documented in this encounter Plan of Treatment Upcoming Encounters Date Type Department Care Team (Late st Contact Info) Description 09/11/2024 1:45 PM EST [facility] Visit [facility] [address] [place] [facility] [address] Swapnil Lopez MD [address] [place] [address] 10/21/2024 2:00 PM EST Appointment [facility] [address] [place] [address] Jacky Shirley MD 1 [facility] [place] [address] 10/23/2024 1:45 PM EST Appointment [facility] [place] [address] Olena Darby APRN 1 [facility] [place] [address] documented as of this encounter Goals Goal [...] documented as of this encounter Care Teams Fiscal Agent Relationship Specialty Start Date End Date Damaso Black MD 1005 [facility] [address] [place] [address] PCP - General Family Medicine 11/22/22 Swapnil Lopez MD [address] [place] [address] Internal Medicine-Gastroenterology 02/16/22 Darío Rubio MD 1 [facility] [place] [place] [address] Internal Medicine-Medical Oncology 12/11/23 Mya Naranjo MD 1 [facility] [place] [address] Family Medicine - Hospice And Palliative Medicine 01/04/24 Ashley Ordonez APRN 1 [facility] [place] [address] Nurse Practitioner 01/04/24 Nicole Melendez, RN Registered Nurse 01/04/24 Aislinn Viera, ANGE Registered Nurse 02/07/24 documented as of this encounter
--- OUTSIDE RECORDS SUMMARY | 2024-08-15 13:49 | XMS_ITS | Encounter Summary ---
Author Organization [place] [address] Care Team Providers Care Welder Apprentice Arc Name Role Phone Swapnil Lopez MD Unavailable [phone] Damaso Black MD Primary Care Provider [phone] Jeremías Amin MD Unavailable [phone] Mya Naranjo MD Unavailable [phone] Ashley Ordonez APRN Unavailable [phone] Nicole Melendez RN Unavailable Unavailable Aislinn Viera RN Unavailable Unavailable Encounter Details Date Type Department Care Team (Late st Contact Info) Description 03/06/2024 Orders Only [facility] Care Medical Oncology [place] [id number] Jeremías Amin MD [address] [place], [place] [phone] Invasive ductal carcinoma of breast, left (HCC) (Primary Dx); Secondary malignant neoplasm of [...] Garza RMGena * Does this person have serious difficulty [...] PM EST Office Visit [facility] [address] [place] [address] Swapnil Lopez MD [address] [place] [address] 10/21/2024 2:00 PM EST Appointment [facility] MRI [address] [place] [address] Jacky Shirley MD [address] [place] [address] [place] [address] 10/23/2024 1:45 PM EST Appointment [place] [address] Olena Darby APRN 1 [facility] CANCER CARE [facility], [place] [phone] documented as of this encounter Goals Goal [...] documented as of this encounter Results * EK EKG 12 LEAD (03/08/2024 5:32 PM EDT) Anatomical Region Laterality Modality Electrocardiogra phy 03/08/2024 2:29 PM EDT Impressions 03/08/2024 3:35 PM EDT ?[facility] ? Test Date: ?2024-03-08 Pat Name: ? RA ROSALES ?Department: ?? DEPID ? Room: ? Gender: ? Female ? Parts Sales Counterperson: ?? Rt : ?1960 ? Requested By: JEREMÍAS AMIN Order Number: [id number] ?Reading : ?? Chuck Pineda MD ? Measurements Intervals ?[place] ? Rate: ? 61 ? P: ?6 MN: ? 115 ?QRS: ?10 QRSD: ? 89 ? T: ?29 QT: ? 400 ? QTc: ?403 ? Interpretive Statements SINUS RHYTHM WITH SHORT MN INTERVAL Electronically Signed On 03-08-2024 15:35:32 EDT by Chuck Pineda MD Narrative Procedure Note Jeronimo Pineda MD - 03/08/[address] [facility] Test Date: 2024-03-08 Pat Name: RA ROSALES Department: DEPID Room: Gender: Female Parts Sales Counterperson: Rt : 1960 Requested By: JEREMÍAS AMIN Order Number: [id number] Reading MD: Chuck Pineda MD Measurements Intervals [place] Rate: 61 P: 6 MN: 115 QRS: 10 QRSD: 89 T: 29 QT: 400 QTc: 403 Interpretive Statements SINUS RHYTHM WITH SHORT MN INTERVAL Electronically Signed On 03-08-2024 15:35:32 EDT by Chuck Pineda MD us Jeremías Amin MD IMG ECG ORDERABLES Final Resul t documented in this encounter Visit Diagnoses Diagnosis Invasive ductal carcinoma of breast, left (HCC)- Primary 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, 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 documented in this encounter Additional Health Concerns Assessment Noted Time PHQ-9 Depression Total Score: 13 024 1:47 PM EDT PHQ-2 Depression Total Score: 3 12/29/19 24 1:47 PM EDT documented as of this encounter Care Teams Welder Apprentice Arc Relationship Specialty Start Date End Date Damaso Black MD [facility] [address] [address] PCP - General Family Medicine 11/22/22 Swapnil Lopez MD [address] [place] [address] Internal Medicine-Gastroenterology 02/16/22 Jeremías Amin MD [address] [place] [address] [place] [address] Internal Medicine-Medical Oncology 12/11/23 Mya Naranjo MD [address] [place] [address] [place] [address] Family Medicine - Hospice And Palliative Medicine 01/04/24 Ashley Ordonez APRN [address] [place] [address] [place] [address] Nurse Practitioner 01/04/24 Nicole Melendez, RN Registered Nurse 01/04/24 Aislinn Viera, ANGE Registered Nurse 02/07/24 documented as of this encounter
--- OUTSIDE RECORDS SUMMARY | 2024-08-15 13:49 | XMS_ITS | Encounter Summary ---
Author Organization [place] [address] Care Team Providers Care Vfx Artist Name Role Phone Swapnil Lopez MD Unavailable [phone] Damaso Black MD Primary Care Provider [phone] Darío Rubio MD Unavailable [phone] Mya Naranjo MD Unavailable [phone] Ashley Ordonez APRN Unavailable [phone] Nicole Melendez RN Unavailable Unavailable Aislinn Viera RN Unavailable Unavailable Reason for Visit * Reason Onset Date Comments Other 03/14/2024 MyChart message Encounter Details Date Type Department Care Team (Late st Contact Info) Description 03/14/2024 Telephone [facility] [place] [address] Darío Rubio MD [address] [place], [place] [id number] Other (MyChart message) Social History Tobacco Use Types Packs/Day Years [...] Author No 09/05/2017 11:13 AM LUCÍA Daren YolisGabbySHANNON james * Is the person blind or does he/she have serious difficulty seeing even when wearing glasses? Answer Date of Assessment Author No 09/05/2017 11:13 AM Yolis De La GarzaSHANNON james * Does this person have serious difficulty walking or climbing stairs? Answer Date of Assessment Author No 09/05/2017 11:13 AM LUCÍA Mercedes YolisGabbySHANNON james * Does this person have difficulty dressing or bathing? Answer Date of Assessment Author No 09/05/2017 11:13 AM Yolis De La GarzaSHANNON james * Because of a physical, mental [...] Telephone Encounter - Aislinn Viera RN - 03/14/2024 4:26 PM EDT Called and spoke to patient. She states that because of her previous care home time, she is currently onprobation. She has to have regular urine drug screens and the one she just did showed positive for marijuana. She is freaking out because she has never smoked marijuana. Her family asked if she may have eaten anything with it (gummies for pain, brownie from a bake sale, etc) and she denies that shehas. She asked us if it may be related to one of her medications. I told her I would reach out and see what I can find out. I spoke with pharmacy who will follow up tomorrow after more research. Will notify patient that we are working on this and will call her tomorrow. * Telephone Encounter - Anais Bernabe, Clerical Staff - 03/14/2024 4:15 PM EDT Images from the original note were not included. Reason for call: patient returning RN's call. RN unavailable. patient asking for a call back ANNA in regard to her YAMAPt message. documented in this encounter Plan of Treatment Upcoming Encounters Date Type Department Care Team (Late st Contact Info) Description 09/11/2024 1:45 PM EST Office Visit [facility] [address] [place] [facility] [address] Swapnil Lopez MD [address] [place] [phone] 10/21/2024 2:00 PM EST Appointment [facility] MRI [address] [place] [address] Jacky Shirley MD [address] [place] [address] [place], [place] [phone] 10/23/2024 1:45 PM EST Appointment [facility] [place] [address] Olena Darby APRN [address] [place] [address] [place], [place] [id number] documented as of this encounter Goals Goal [...] documented as of this encounter Care Teams Vfx Artist Relationship Specialty Start Date End Date Damaso Black MD [address] [facility] [address] [place] [address] PCP - General Family Medicine 11/22/22 Swapnil Lopez MD [address] [place] [phone] Internal Medicine-Gastroenterology 02/16/22 Darío Rubio MD [address] [place] [address] [place] [address] Internal Medicine-Medical Oncology 12/11/23 Mya Naranjo MD [address] [place] [address] Family Medicine - Hospice And Palliative Medicine 01/04/24 Ashley Ordonez APRN [address] [place] [phone] Nurse Practitioner 01/04/24 Nicole Melendze, RN Registered Nurse 01/04/24 Aislinn Viera RN Registered Nurse 02/07/24 documented as of this encounter
--- OUTSIDE RECORDS SUMMARY | 2024-08-15 13:49 | XMS_ITS | Encounter Summary ---
Author Organization [place] [address] Care Team Providers Care Collator Operator Name Role Phone Swapnil Lopez MD Unavailable [phone] Damaso Black MD Primary Care Provider [phone] Darío Rubio MD Unavailable [phone] Mya Naranjo MD Unavailable [phone] Ashley Ordonez APRN Unavailable [phone] Nicole Melendez RN Unavailable Unavailable Aislinn Viera RN Unavailable Unavailable Reason for Visit * Reason Comments Follow-up Encounter Details Date Type Department Care Team (Latest Contact Info) Description 03/20/2024 11:28 AM EDT - 03/20/2024 11:59 PM EDT Hospital Encounter [facility] [place] [address] x4 Jacky Shirley MD 1 [facility] [address] Ashley Ordonez APRN [address] [place] [address] Palliative care by specialist (Primary Dx); Cancer [...] Sign Reading Time Taken Comments Blood Pressure 121/108 03/20/2024 3:57 PM EDT Pulse 78 03/20/2024 3:57 PM EDT Temperature 36.1 ??C (97 ??F) 03/20/2024 3:57 PM EDT Respiratory Rate 18 03/20/2024 3:57 PM EDT Oxygen Saturation 100% 03/20/2024 3:57 PM EDT Inhaled Oxygen Concentration - - Weight 57.2 kg (126 lb) 03/20/2024 3:57 PM EDT Height - - Body Mass Index 23.05 03/08/2024 1:35 PM EDT documented in this encounter Functional [...] No 09/05/2017 11:13 AM LUCÍA Mercedes Gabby, SHANNON documented in this encounter Medications at [...] this encounter Progress Notes * Ashley Ordonez, OYN - 03/20/2024 2:00 PM EDT PALLIATIVE CARE SERVICES OUTPATIENT CLINIC PROGRESS NOTE NAME: Marleni Way DATE OF : 1960 DATE OF SERVICE: 03/20/2024 HPI 63 y/o with 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 Treatment delayed by remote 6 month incarceration, but she is now back home. 43 year hx of Crohn's/multiple GI surgeries/rectal fistula appt 01/[address] Fry[address] Chronic pain related to Crohn's, sees [facility] Irene HADLEY Neuro consult cancelled as blackouts ceased. She com plains of increased pain over the last 30 days and tells me she has been taking 2 extra tabs of Tramadol daily and her family wants to discuss rotating to a different opioid as Tramadol is no longer working for her pain. ASSESSMENT Cancer related pain: complicated by chronic pain due to Crohn's disease. Continue current pain regimen of Tramadol 100 mg every 4 hours as needed MAX 3 tabs/day (#90; 03/22/24). She is asking to rotate to a different opioid as she is having cancer related headaches and spine pain. Will discuss with Dr. Naranjo. Plan has always been to transition back to Dr. Rankin when able. Naloxone ordered previously Opioid induced Constipation: having intermittent diarrhea, has Lomotil for Crohn's and this helps Mood: Last PHQ-9=13; Last IRMA-7=11; no change in moods; will monitor Nausea: denies; has Zofran and Phenergan as needed Appetite/weight loss: 126# at last in-person visit; states lost weight during incarceration, gaining weight back while at home; She has told me her weight is [...] completed previously; UDS PRN per protocol,IZZY review at every visit; Naloxone per clinic guidelines PROBLEM LIST Patient Active Problem List Diagnosis Date Noted Secondary malignant neoplasm of bone (HCC) 01/10/2024 Palliative care by specialist 12/29/2023 Cancer related pain 12/29/2023 Invasive ductal carcinoma of breast, left ([facility]) 10/30/2023 De Quervain's tenosynovitis 03/24/2021 De Quervain thyroiditis 02/05/2021 De Quervain's tenosynovitis, left 02/05/2021 Ulcer of great toe, left, with necrosis of muscle ([facility]) 11/10/2017 Crohn's disease of colon with complication ([facility]) 11/10/2017 Laceration of left great toe without foreign body present or damage to nail 11/10/2017 Anxiety and depression 07/25/2017 Food impaction of esophagus 06/25/2016 Exacerbation of Crohn's disease ([facility]) 04/02/2015 Alcoholism ([facility]) Crohn's History of stomach cancer Depression ONCOLOGY HISTORY Oncology History Invasive ductal carcinoma of breast, left ([facility]) 10/30/2023 Initial Diagnosis Invasive ductal carcinoma of breast, left ([facility]) Pathology A) Left breast mass at 2 [...] treatment, chronic pain due to Crohn's takes 6 tablets of Tramadol 50 tabs a day for about 5 years now. She has not been taking 6 tabs per day and has actually been taking 8 tabs daily and then running out a week early and having significant pain that last week before she is due for her refill again. Her entire body aches, but mos t of her pain is in her mid to lower back. She is also having headaches s/p XRT to left frontal bone. Denies pain in her breast bone. She no longer feels like the Tramadol works. Dyspnea: denies Anorexia/weight loss: 126# at last in-person visit; She is around her baseline weight. 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 Spiritual/Amish No needs identified today REVIEW OF SYSTEMS [...] she tested COVID positive on 02/12/21 @ [facility], instructed pt to notify Dr Lnatigua's office to reschedule surgery Past Surgical History: Procedure Laterality Date ANTERIOR COMPARTMENT DECOMPRESSION Left 04/15/2021 LEFT DEQUERVAINS RELEASE ; Surgeon: Henry Lantigua MD; Location: [facility]; Service: Hand BREAST BIOPSY Left 10/26/2023 2:00 BREAST BIOPSY Left 10/26/2023 axilla node SECTION x2 COLON SURGERY x11 crohns COLONOSCOPY COLOSTOMY ILEOSTOMY OR JEJUNOSTOMY UPPER GASTROINTESTINAL ENDOSCOPY N/A 06/25/2016 ESOPHAGOGASTRODUODENOSCOPY with biopsy with conscious sedation; Surgeon: Christopher Matthews MD PHD; Location: [facility]; Service: Endoscopy Family History Problem [...] 8 TABLETS PER DAY 60 Tablet 3 loperamide (IMODIUM) 2 mg Oral Capsule Take 1 Capsule by mouth every 3 hours. 200 Capsule 0 mesalamine (LIALDA) 1.2 gram Oral Tablet, Delayed Release (E.C.) Take 1 Tablet by mouth daily. 360 Tablet 3 predniSONE (DELTASONE) 10 mg Oral Tablet Take 1 Tablet by mouth daily. 112 Tablet 1 ribociclib (KISQALI) 400 mg/day (200 mg x 2) Oral Tablet Take 2 tablets by mouth daily for 21 days followed by 7 days off 42 Tablet 0 traMADoL (ULTRAM) 50 mg Oral Tablet Take 2 Tablets by mouth every 4 hours as needed for Pain for upto 30 days. MAX OF 6 TABLETS PER DAY 180 Tablet 0 triamcinolone (KENALOG) 0.1 % Top Cream Apply topically 3 times daily. 80 g 0 No current facility-administered medications for this visit. Allergies Allergen Reactions Caymz-Mhxfp-1-Tjm-Mwp-Xtczre Hives Sulfa (Sulfonamide Antibiotics) PHYSICAL EXAMINATION General: Marleni appears alert, in no acute distress Head: normocephalic and atraumatic Neck: supple, midline trachea Lungs: non-labored breathing, symmetrical chest expansion Heart: regular rate and rhythm, no edema Abdomen: not distended, soft Skin: warm, dry Neurological: alert and oriented Psych: calm, pleasant, appropriate affect Ashley Ordonez APRN, [facility] I spent 35 minutes today, preparing to see the patient, review and documentation, as well as time spent with the patient, evaluation and treatment. documented in this encounter Plan of Treatment Upcoming Encounters Date Type Department Care Team (Late st Contact Info) Description 09/11/2024 1:45 PM EST Office Visit [facility] [address] [place] [address] Swapnil Lopez MD [address] [place] [facility] [address] 10/21/2024 2:00 PM EST Appointment [facility] MRI [address] [place] [address] Jacky Shirley MD 1 [facility] [place], [place] [id number] 10/23/2024 1:45 PM EST Appointment [facility] [address] [place], [place] [phone] Olena Darby, YON 1 [facility] [place], [place] [phone] documented as of this encounter Goals Goal [...] bone marrow documented in this encounter Orders Lab Orders Without Results Count Last Ordered D ate First Ordered Date MISCELLANEOUS LAB 1 03/20/2024 documented in this encounter Additional Health Concerns Assessment Noted Time PHQ-9 Depression Total Score: 13 024 1:47 PM EDT PHQ-2 Depression Total Score: 3 12/29/19 24 1:47 PM EDT documented as of this encounter Care Teams Collator Operator Relationship Specialty Start Date End Date Damaso Black MD [address] [facility] [address] [facility], [place] [phone] PCP - General Family Medicine 11/22/22 Swapnil Lopez MD [address] [place] [phone] Internal Medicine-Gastroenterology 02/16/22 Darío Rubio MD 1 [facility] [place] [address] Internal Medicine-Medical Oncology 12/11/23 Mya Naranjo MD 1 [facility] [place] [address] Family Medicine - Hospice And Palliative Medicine 01/04/24 Ashley Ordonez APRN [address] [facility] [place] [address] Nurse Practitioner 01/04/24 Nicole Melendez, RN Registered Nurse 01/04/24 Aislinn Viera, ANGE Registered Nurse 02/07/24 documented as of this encounter
--- OUTSIDE RECORDS SUMMARY | 2024-08-15 13:49 | XMS_ITS | Encounter Summary ---
Author Organization [place] [address] Care Team Providers Care Pipe Organ Technician Name Role Phone Swapnil Lopez MD Unavailable [phone] Damaso Black MD Primary Care Provider [phone] Darío Rubio MD Unavailable [phone] Mya Naranjo MD Unavailable [phone] Ashley Ordonez APRN Unavailable [phone] Nicole Melendez RN Unavailable Unavailable Aislinn Viera RN Unavailable Unavailable Reason for Visit * Reason Comments Follow-up Invasive ductal carc inoma of breast, left Encounter Details Date Type Department Care Team (Latest Contact Info) Description 03/08/2024 1:30 PM EDT - 03/08/2024 2:14 PM EDT Hospital Encounter [facility] [place] [address] Jacky Shirley MD [address] [place] [address] [place] [address] Suri Diaz APRN [address] [place] [address] Invasive ductal carcinoma of breast, left (HCC) (Primary Dx); Secondary malignant neoplasm of bone (HCC); Chronic nonintractable headache, unspecified headache type; Encounter for medication monitoring; Aromatase inhibitor use [...] Sign Reading Time Taken Comments Blood Pressure 136/76 03/08/2024 1:35 PM EDT Pulse 68 03/08/2024 1:35 PM EDT Temperature 36.9 ??C (98.4 ??F) 03/08/2024 1:35 PM ED T Respiratory Rate 18 03/08/2024 1:35 PM EDT Oxygen Saturation 100% 03/08/2024 1:35 PM EDT Inhaled Oxygen Concentration - - Weight 58.7 kg (129 lb 4.8 oz) 03/08/2024 1:35 P M EDT Height 157.5 cm (5' 2 ) 03/08/2024 1:35 PM EDT Body Mass Index 23.65 03/08/2024 1:35 PM EDT documented in this [...] 11:13 AM LUCÍA Mercedes Gabby SHANNON documented as of this encounter Mental [...] in this encounter Progress Notes * Suri Diaz APRN - 03/08/2024 1:30 PM EDT Images from the original note were not included. Patient: Marleni Way CSN: [id number] Date of : 1960 Age: 63 y.o. Date of Service: 03/08/2024 HEMATOLOGY/ONCOLOGY FOLLOW UP VISIT Primary Clay Grinder & Oncologist: Cameron Rubio MD DIAGNOSIS & [...] Stage IIA (cT2, cN1, cM0, G2, ER+, NE+, HER2-) - Signed by Ian Ruiz MD on 11/18/2023 CURRENT TREATMENT: DR Parry at 400 mg daily due to G2 diarrhea 1 mg of arimidex INTERVAL HISTORY: CC: Chief Complaint Patient presents with Follow-up Invasive ductal carcinoma of breast, left Marleni Jayant DaveSyan[address] Way is coming today for labs and re-assessment. Continues tolerating DR Parry much better. Bowels doing normal. Denies bleeding. Denies abdominalpain. Denies new or progressive back and hip discomfort. Headaches in AM. Denies N/V. Denies visualchanges. States did just order new glasses tho. Denies falls. Denies dizziness. Denies mouth sores. Complaint with oral meds. REVIEW OF SYSTEMS: Pertinent information Review of Systems Constitutional: Negative for fever. HENT: Negative for sore throat and trouble swallowing. Respiratory: Negative for chest tightness, hemoptysis and shortness of breath. Cardiovascular: Negative for chest pain and leg swelling. Gastrointestinal: Negative for rectal pain and vomiting. Musculoskeletal: Negative for gait problem. Skin: Negative for itching. Neurological: Positive for headaches. Negative for dizziness, extremity weakness, gait problem, seizures and speech difficulty. Psychiatric/Behavioral: The patient is nervous/anxious. MEDICATIONS: Medications and allergies reviewed PHYSICAL EXAM: Vitals: 03/08/24 1335 BP: 136/76 Pulse: 68 Resp: 18 Temp: 98.4 ??F (36.9 ??C) SpO2: 100% Wt Readings from Last 2 Encounters: 03/08/24 129 lb 4.8 oz (58.7 kg) 02/07/24 125 lb 3.2 oz (56.8 kg) ECO Pertinent information Physical Exam Constitutional: [...] PLAN Marleni Way was seen today for follow-up. Diagnoses and all orders for this visit: Invasive ductal carcinoma of breast, left (HCC) - CT CHEST ABDOMEN PELVIS W CONTRAST; Future Secondary malignant neoplasm of bone (HCC) - CT CHEST ABDOMEN PELVIS W CONTRAST; Future Chronic nonintractable headache, unspecified headache type Encounter for medication monitoring Aromatase inhibitor use Stage IV Invasive Ductal Carcinoma of Left Breast (T2N3M1, ER+, NE+, HER2-) Patient coming from [facility]. Patient reports feeling an enlarging breast lump. She is post-menopausal and has had a hysterectomy and no FMH of cancer. Left breast mass and left axilla biopsied and revealing invasive ductal carcinoma, grade 2, some DCIS as well. ER 96%, NE 73%, HER2 2+, FISH negative, lymph node [...] for faslodex monthly monotherapy if still in snf. Discussed side effects of faslodex and gave information. If out of snf- would consider faslodex and ribociclib vs AI + CDK4/6. Out of snf mid December [address] Rubio discussed we could do CDK4/6 inhibitor ribociclib (kisqali) + anastrazole (AI). Had started on AI prior. Discussed side effects of neutropenia, EKG/arrhythmiaabnormalities, peripheral edema, alopecia, rash, electrolyte abnormalities, n/v/d, abdominal pain, other cytopenias, liver and kidney abnormalities, infection, fatigue, dizziness, headaches, arthralgias, osteoporosis intermediate project manager, fever, hot flashes, mood swings and other [...] doing well. Recent f/u with GI (hx Chrons disease) and not currently on medication for management. GI noted she was doing well and will continue to monitor off therapy. CMP and CBC stable on kisqlai and continues on AI. EKG today stable. MRI brain scheduled. Dr Rubio noted plans to repeat scans next month, have ordered CT c/a/p and discussed with patient. Advance Directives: Advance Directives/DNR: Not Received Advance Directives and Living Will: Not Received Power of Psych Specialist: Not Received ADVANCE DIRECTIVE: Received 10/31/2023 Code Status: Needs Addressed - Prior Hx Available Dispo: Return in about 1 month (around 04/09/2024) for MD OV, SCAN RESULT OV, LAB APT. Thank you for the opportunity to assist in the care of this patient, please feel free to contact meif I can be of any assistance. Suri Diaz APRN Hematology and Medical Oncology [facility] documented in this encounter Plan of Treatment Upcoming Encounters Date Type Department Care Team (Late st Contact Info) Description 09/11/2024 1:45 PM EST [facility] [address] [place] [address] Swapnil Lopez MD [address] [place] [address] 10/21/2024 2:00 PM EST Appointment [facility] MRI [address] [facility] [place] [address] Jacky Shirley MD [address] [place] [address] [place], [place] [id number] 10/23/2024 1:45 PM EST Appointment [facility] [place], [place] [phone] Olena Darby APRN [address] [place] [phone] documented as of this encounter Goals Goal [...] malignant neoplasm of bone and bone marrow Chronic nonintractable headache, unspecified headache type Encounter for medication monitoring Encounter for therapeutic drug monitoring Aromatase inhibitor use Use of aromatase inhibitors documented in this encounter Additional Health Concerns Assessment Noted Time PHQ-9 Depression Total Score: 13 024 1:47 PM EDT PHQ-2 Depression Total Score: 3 12/29/19 24 1:47 PM EDT documented as of this encounter Care Teams Pipe Organ Technician Relationship Specialty Start Date End Date Damaso Black MD [address] [place] [address] PCP - General Family Medicine 11/22/22 Swapnil Lopez MD [address] [place] [phone] Internal Medicine-Gastroenterology 02/16/22 Darío Rubio MD [address] [facility] [place] [address] Internal Medicine-Medical Oncology 12/11/23 Mya Naranjo MD [address] [facility] [place] [address] Family Medicine - Hospice And Palliative Medicine 01/04/24 Ashley Ordonez APRN [address] [facility] [place] [address] Nurse Practitioner 01/04/24 Nicole Melendez, RN Registered Nurse 01/04/24 Aislinn Viera, ANGE Registered Nurse 02/07/24 documented as of this encounter
--- OUTSIDE RECORDS SUMMARY | 2024-08-15 13:49 | XMS_ITS | Encounter Summary ---
Author [place] [address] Care Team Providers Care Cad Cam Programmer Name Role Phone Swapnil Lopez MD Unavailable [phone] Damaso Black MD Primary Care Provider [phone] Darío Rubio MD Unavailable [phone] Mya Naranjo MD Unavailable [phone] Ashley Ordonez STAVE CUTTER Unavailable [phone] Nicole Melendez RN Unavailable Unavailable Aislinn Viera RN Unavailable Unavailable Encounter Details Date Type Department Care Team (Late st Contact Info) Description 03/18/2024 Telephone [place] [address] x4 Ashley Ordonez APRN [address] [id number] Social History Tobacco Use Types Packs/Day Years [...] encounter Miscellaneous Notes * Telephone Encounter - Harper Mcfarland, Kaleb Staff - 03/18/2024 11:22 AM EDT pt was r/s * Telephone Encounter - Keely Dillon Clerical Staff - 03/18/2024 11:09 AM EDT Reason for call: Patient returned call to harper Sent teams message to Harper saleem Unavailable at time of call Preferred call back number:[phone] * Telephone Encounter - Harper Mcfarland Clerical Staff - 03/18/2024 10:48 AM EDT left message to r/s palcare f/u documented in this encounter Plan of Treatment Upcoming Encounters Date Type Department Care Team (Late st Contact Info) Description 09/11/2024 1:45 PM EST Office Visit [facility] [address] [facility], [place] [phone] Swapnil Lopez MD [address] [place] [address] 10/21/2024 2:00 PM EST Appointment [facility] MRI [address] [place] [address] Jacky Shirley MD 1 [facility] CANCER [place], [place] [address] 10/23/2024 1:45 PM EST Appointment [facility] [address] [place], [place] [id number] Olena Darby APRN [address] [place] [address] documented as of this encounter Goals Goal [...] documented as of this encounter Care Teams Cad Cam Programmer Relationship Specialty Start Date End Date Damaso Black MD [address] [place] [address] PCP - General Family Medicine 11/22/22 Swapnil Lopez MD [address] [place] [address] Internal Medicine-Gastroenterology 02/16/22 Darío Rubio MD 1 [facility] [place] [address] Internal Medicine-Medical Oncology 12/11/23 Mya Naranjo MD 1 [facility] [place] [address] Family Medicine - Hospice And Palliative Medicine 01/04/24 Ashley Ordonez APRN 1 [facility] [place] [address] Nurse Practitioner 01/04/24 Nicole Melendez, RN Registered Nurse 01/04/24 Aislinn Viera, ANGE Registered Nurse 02/07/24 documented as of this encounter
--- OUTSIDE RECORDS SUMMARY | 2024-08-15 13:49 | XMS_ITS | Encounter Summary ---
[facility] Address [address] [facility] [place] [address] Care Team Providers Care Forest Ecology Professor Name Role Phone Swapnil Lopez MD Unavailable [phone] Damaso Black MD Primary Care Provider [phone] Darío Rubio MD Unavailable [phone] Mya Naranjo MD Unavailable [phone] Ashley Ordonez APRN Unavailable [phone] Nicole Melendez RN Unavailable Unavailable Aislinn Viera RN Unavailable Unavailable Encounter Details Date Type Department Care Team (Late st Contact Info) Description 02/21/2024 Orders Only [facility] [address] [facility] [place] [address] Camelia Mckee MA Crohn's disease of both small and large intestine without complication (HCC) (Primary Dx) Social History Tobacco Use [...] Tablet by mouth daily. 360 Tablet 3 02/21/2024 03/27/2024 documented in this encounter Plan of Treatment Upcoming Encounters Date Type Department Care Team (Late st Contact Info) Description 09/11/2024 1:45 PM EST Office Visit [facility] [address] [facility] [place] [address] Swapnil Lopez MD [address] [place] [address] 10/21/2024 2:00 PM EST Appointment [facility] MRI [address] [place] [address] Jacky Shirley MD [address] [place] [address] [place] [address] 10/23/2024 1:45 PM EST Appointment [facility] [address] Olena Darby APRN 1 [facility]CER [facility] [place], [place] [phone] documented as of this encounter Goals Goal [...] Release (E.C.) Take 1 Tablet by mouth 4 times daily. 02/21/2024 02/21/2024 documented as of this encounter Additional Health Concerns Assessment Noted Time PHQ-9 Depression Total Score: 13 024 1:47 PM EDT PHQ-2 Depression Total Score: 3 12/29/19 24 1:47 PM EDT documented as of this encounter Care Teams Forest Ecology Professor Relationship Specialty Start Date End Date Damaso Black MD [address] [place] [address] 22 [place] [address] PCP - General Family Medicine 11/22/22 Swapnil Lopez MD [address] [place] [address] Internal Medicine-Gastroenterology 02/16/22 Darío Rubio MD 1 [facility] [place] [address] Internal Medicine-Medical Oncology 12/11/23 Mya Naranjo MD [address] [facility] [place] [address] Family Medicine - Hospice And Palliative Medicine 01/04/24 Ashley Ordonez APRN [address] [facility] [place] [address] Nurse Practitioner 01/04/24 Nicole Melendez, RN Registered Nurse 01/04/24 Aislinn Viera, ANGE Registered Nurse 02/07/24 documented as of this encounter
--- OUTSIDE RECORDS SUMMARY | 2024-08-15 13:49 | XMS_ITS | Encounter Summary ---
Author Organization [facility] Address [address] [place] [address] Care Team Providers Care Reservations Manager Name Role Phone Swapnil Lopez MD Unavailable [phone] Damaso Black MD Primary Care Provider [phone] Darío Rubio MD Unavailable [phone] Mya Naranjo MD Unavailable [phone] Ashley Ordonez APRN Unavailable [phone] Nicole Melendez RN Unavailable Unavailable Aislinn Viera RN Unavailable Unavailable Encounter Details Date Type Department Care Team (Late st Contact Info) Description 02/21/2024 Orders Only [facility] [address] [place] [address] Swapnil Lopez MD [address] [place] [address] Crohn's disease of both small and large [...] Author No 09/05/2017 11:13 AM EST Mercedes Gabby RMA * Does this person [...] 1 Tablet by mouth 4 times daily. 360 Tablet 3 02/21/2024 02/21/2024 documented in this encounter Plan of Treatment Upcoming Encounters Date Type Department Care Team (Late st Contact Info) Description 09/11/2024 1:45 PM EST Office Visit [facility] [address] [facility] [place] [address] Swapnil Lopez MD [address] [place] [address] 10/21/2024 2:00 PM EST Appointment [facility] [address] [place] [address] Jacky Shirley MD 1 [facility] CARE [place], [place] [phone] 10/23/2024 1:45 PM EST Appointment [facility] [address] [place], [place] [phone] Olena Darby APRN 1 [facility] CANCER CARE [place], [place] [phone] documented as of this encounter Goals Goal [...] documented as of this encounter Care Teams Reservations Manager Relationship Specialty Start Date End Date Damaso Balck MD 1005 [facility] [address] [place] [address] PCP - General Family Medicine 11/22/22 Swapnil Lopez MD [address] [place] [address] Internal Medicine-Gastroenterology 02/16/22 Darío Rubio MD 1 [facility] [address] Internal Medicine-Medical Oncology 12/11/23 Mya Naranjo MD [address] [facility] [place] [address] Family Medicine - Hospice And Palliative Medicine 01/04/24 Ashley Ordonez APRN [address] [facility] [place] [address] Nurse Practitioner 01/04/24 Nicole Melendez, RN Registered Nurse 01/04/24 Aislinn Viera, ANGE Registered Nurse 02/07/24 documented as of this encounter
--- OUTSIDE RECORDS SUMMARY | 2024-08-15 13:49 | XMS_ITS | Encounter Summary ---
Author [place] [address] Care Team Providers Care Power System Electrical Engineer Name Role Phone Swapnil Lopez MD Unavailable [phone] Damaso Black MD Primary Care Provider [phone] Darío Rubio MD Unavailable [phone] Mya Naranjo MD Unavailable [phone] Ashley Ordonez APRN Unavailable [phone] Nicole Melendez RN Unavailable Unavailable Aislinn Viera RN Unavailable Unavailable Reason for Visit * Reason Comments Pharmacy Oncology Management Ribociclib Encounter Details Date Type Department Care Team (Latest Contact Info) Description 02/28/2024 Specialty Pharmacy [facility] [address] [place] [address] Shruthi Caruso, Maile Pharmacy Oncology [...] Progress Notes * Shruthi Caruso CPhT - 02/28/2024 11:01 AM EDT [facility] Pharmacy Refill Request Prescription for Ribociclib is out of refills. Will send a request to the provider and contact patient to coordinate refill once response is received. * Radha Trejo RPH - 02/28/2024 11:01 AM EDT [facility] Refill authorization received. Will contact patient to coordinate refill. * Shruthi Caruso CPhT - 02/28/2024 11:01 AM EDT Specialty Pharmacy Refill Coordination Note Contacted Marleni L Sy Seamus today regarding refills of Ribociclib. Copay amount: $0.00 No answer, left voicemail to call [phone], option 4. Patient informed of copay. * Shruthi Veras CPhT - 02/28/2024 11:01 AM EDT Specialty Pharmacy Refill Coordination Note Contacted Marleni Way today regarding refills of Ribociclib. Copay amount: $0 No answer, left voicemail to call [phone], option 4. * Shruthi Veras CPhT - 02/28/2024 11:01 AM EDT Specialty Pharmacy Refill Coordination Note Contacted Marleni Way today regarding refills of Ribociclib. Medication to be delivered by FedEx on 03/05. Copay amount: $0 Spoke with patient. Patient informed of copay. * Fred Mccurdy RPH - 02/28/2024 11:01 AM EDT [facility] - Care Plan and Refill Review Refill questions and refill history verified. Last assessment 01/30/24. No reassessment needed at this time. Fred Mccurdy RPH Specialty Pharmacist documented in this encounter Plan of Treatment Upcoming Encounters Date Type Department Care Team (Late st Contact Info) Description 09/11/2024 1:45 PM EST Office Visit [facility] [address] [place] [address] Swapnil Lopez MD [address] [facility] [place] [address] 10/21/2024 2:00 PM EST Appointment [facility] [place] MRI [address] [phone] Jacky Shirley MD 1 [facility] [place] [address] 10/23/2024 1:45 PM EST Appointment [facility] [address] [place], [place] [phone] Olena Darby APRN 1 [facility] [place], [place] [address] documented as of this encounter Goals Goal [...] documented as of this encounter Care Teams Power System Electrical Engineer Relationship Specialty Start Date End Date Damaso Black MD 1005 [facility] [address] [place] [address] PCP - General Family Medicine 11/22/22 Swapnil Lopez MD [address] [place] [address] Internal Medicine-Gastroenterology 02/16/22 Darío Rubio MD [address] [place] [address] [place] [address] Internal Medicine-Medical Oncology 12/11/23 Mya Naranjo MD [address] [place] [address] Family Medicine - Hospice And Palliative Medicine 01/04/24 Ashley Ordonez APRN [address] [facility] [place] [address] Nurse Practitioner 01/04/24 Nicole Melendez, RN Registered Nurse 01/04/24 Aislinn Viera, ANGE Registered Nurse 02/07/24 documented as of this encounter
--- OUTSIDE RECORDS SUMMARY | 2024-08-15 13:49 | XMS_ITS | Encounter Summary ---
Author Organization [place] [address] Care Team Providers Care Med Specialist Name Role Phone Swapnil Lopez MD Unavailable [phone] Damaso Black MD Primary Care Provider [phone] Darío Rubio MD Unavailable [phone] Mya Naranjo MD Unavailable [phone] Ashley Ordonez TERMINAL SUPERINTENDENT Unavailable [phone] Nicole Melendez RN Unavailable Unavailable Aislinn Viera RN Unavailable Unavailable Reason for Visit * Reason Onset Date Comments Medication Refill 02/20/2024 Encounter Details Date Type Department Care Team (Late st Contact Info) Description 02/20/2024 Telephone [facility] [place] [phone] Ashley Ordonez, TERMINAL SUPERINTENDENT [address] [place] [address] Medication Refill Social History Tobacco Use Types [...] OF 6 TABLETS PER DAY 180 Tablet 02/22/2024 4 documented in this encounter Miscellaneous Notes * Telephone Encounter - Ashley Ordonez APRN - 02/20/2024 11:32 AM EDT Refill on Tramadol PRN. documented in this encounter Plan of Treatment Upcoming Encounters Date Type Department Care Team (Late st Contact Info) Description 09/11/2024 1:45 PM EST Office Visit [facility] [address] [facility] [address] Swapnil Lopez MD [address] [place] [address] 10/21/2024 2:00 PM EST Appointment [facility] [place] MRI [address] [place], [place] [address] Jacky Shirley MD 1 [facility] CANCER CARE [place], [place] [address] 10/23/2024 1:45 PM EST Appointment [facility] [place] [address] Olena Darby APRN [address] [place] [address] CANCER CARE [place], [place] 9[address] documented as of this encounter Goals Goal Patient Goal Type Associated Problems Recent Progress Patient-Stated? Author Breast [facility] Mary Kate Vázquez, RN [...] mouth every 4 hours as needed for Pain. MAX OF 6 TABLETS PER DAY Reorder 01/23/2024 02/20/2024 documented as of this encounter Additional Health Concerns Assessment Noted Time PHQ-9 Depression Total Score: 13 024 1:47 PM EDT PHQ-2 Depression Total Score: 3 12/29/19 24 1:47 PM EDT documented as of this encounter Care Teams Med Specialist Relationship Specialty Start Date End Date Damaso Black MD [address] [place] [address] PCP - General Family Medicine 11/22/22 Swapnil Lopez MD [address] [place] [address] Internal Medicine-Gastroenterology 02/16/22 Darío Rubio MD [address] [place] [address] [place] [address] Internal Medicine-Medical Oncology 12/11/23 Mya Naranjo MD [address] [place] [address] [place] [address] Family Medicine - Hospice And Palliative Medicine 01/04/24 Ashley Ordonez APRN [address] [place] [address] [place] [address] Nurse Practitioner 01/04/24 Nicole Melendez, RN Registered Nurse 01/04/24 Aislinn Viera, ANGE Registered Nurse 02/07/24 documented as of this encounter
--- OUTSIDE RECORDS SUMMARY | 2024-08-15 13:49 | XMS_ITS | Encounter Summary ---
Author Organization [place] [address] Care Team Providers Care Shuttle Inspector Name Role Phone Swapnil Lopez MD Unavailable [phone] Damaso Black MD Primary Care Provider [phone] Darío Rubio MD Unavailable [phone] Mya Naranjo MD Unavailable [phone] Ashley Ordonez APRN Unavailable [phone] Nicole Melendez RN Unavailable Unavailable Aislinn Viera RN Unavailable Unavailable Reason for Visit * Reason Onset Date Comments Medication Refill 02/20/2024 Encounter Details Date Type Department Care Team (Late st Contact Info) Description 02/20/2024 Refill [facility] Medical Oncology [place] [phone] Darío Rubio MD [address] [place], [place] [address] Medication Refill Social History Tobacco Use Types [...] 8 TABLETS PER DAY 60 Tablet 3 02/22/2024 4 documented in this encounter Miscellaneous Notes * Telephone Encounter - Aislinn Viera RN - 02/22/2024 8:05 AM EDT Received refill request for lomotil for pt. Reviewed chart; pt has f/u appt on 02/07/2024. Last RX was sent on 02/07/2024 with 1 refills, so refill is appropriate. Last office note on 02/07/2024. Escript for lomotil sent to provider to sign. documented in this encounter Plan of Treatment Upcoming Encounters Date Type Department Care Team (Late st Contact Info) Description 09/11/2024 1:45 PM EST Office Visit [facility] [address] [facility], [place] [phone] Swapnil Lopez MD [address] [place] [place] [address] 10/21/2024 2:00 PM EST Appointment [facility] MRI [address] [place] [address] Jacky Shirley MD 1 [facility] CANCER [place], [place] [address] 10/23/2024 1:45 PM EST Appointment [facility] ON[facility] [address] [place], [place] [phone] Olena Darby APRN [address] [place] [address] [place]ER [place], [place] 6[address] documented as of this encounter Goals Goal [...] MORE THAN 8 TABLETS PER DAY Reorder 02/07/2024 02/20/2024 documented as of this encounter Additional Health Concerns Assessment Noted Time PHQ-9 Depression Total Score: 13 024 1:47 PM EDT PHQ-2 Depression Total Score: 3 12/29/19 24 1:47 PM EDT documented as of this encounter Care Teams Shuttle Inspector Relationship Specialty Start Date End Date Damaso Black MD 1005 [facility] [address] [place] [address] PCP - General Family Medicine 11/22/22 Swapnil Lopez MD [address] [place] [address] Internal Medicine-Gastroenterology 02/16/22 Darío Rubio MD [address] [facility] [place] [address] Internal Medicine-Medical Oncology 12/11/23 Mya Naranjo MD [address] [facility] [place] [address] Family Medicine - Hospice And Palliative Medicine 01/04/24 Ashley Ordonez APRN 1 [facility] [place] [address] Nurse Practitioner 01/04/24 Nicole Melendez, RN Registered Nurse 01/04/24 Aislinn Viera, ANGE Registered Nurse 02/07/24 documented as of this encounter
--- OUTSIDE RECORDS SUMMARY | 2024-08-15 13:49 | XMS_ITS | Encounter Summary ---
Author Organization [place] [address] Care Team Providers Care Greige Goods Examiner Name Role Phone Swapnil Lopez MD Unavailable [phone] Damaso Black MD Primary Care Provider [phone] Darío Rubio MD Unavailable [phone] Mya Naranjo MD Unavailable [phone] Ashley Ordonez APRN Unavailable [phone] Nicole Melendez RN Unavailable Unavailable Aislinn Viera RN Unavailable Unavailable Reason for Visit * Reason Onset Date Comments Follow-up 03/19/2024 Drug Screen Encounter Details Date Type Department Care Team (Late st Contact Info) Description 03/19/2024 Telephone [facility] [place] [address] Darío Rubio MD [address] [place], [place] [phone] Follow-up (Drug Screen) Social History Tobacco Use Types Packs/Day Years [...] 09/05/2017 11:13 AM LUCÍA Mercedes Gabby RMA documented as of this encounter Mental Status * Because of a physical, mental or emotional condition, does this person have serious difficulty concentrating, remembering or making decisions? Answer Entry Date Author No 09/05/2017 11:13 AM LUCÍA Gabby Mercedes RMA documented in this encounter Miscellaneous Notes * Telephone Encounter - Aislinn Viera RN - 03/19/2024 10:40 AM EDT Called patient to discuss potential articles that may lead to her positive drug screen. documented in this encounter Plan of Treatment Upcoming Encounters Date Type Department Care Team (Late st Contact Info) Description 09/11/2024 1:45 PM EST Office Visit [facility] [address] [place] [address] Swapnil Lopez MD [address] [place] [address] 10/21/2024 2:00 PM EST Appointment [facility] [place] MRI [address] [address] Jacky Shirley MD 1 [facility] [place] [address] 10/23/2024 1:45 PM EST Appointment [facility] [address] [address] [place], [place] [phone] Olena Darby, YON 1 [facility] CANCER CARE [place], [place] [address] documented as of this encounter Goals Goal [...] documented as of this encounter Care Teams Greige Goods Examiner Relationship Specialty Start Date End Date Damaso Black MD [address] [place] [address] PCP - General Family Medicine 11/22/22 Swapnil Lopez MD [address] [place] [address] Internal Medicine-Gastroenterology 02/16/22 Darío Rubio MD 1 [facility] [address] Internal Medicine-Medical Oncology 12/11/23 Mya Naranjo MD 1 [facility] [address] Family Medicine - Hospice And Palliative Medicine 01/04/24 Ashley Ordonez APRN 1 [facility] [address] Nurse Practitioner 01/04/24 Nicole Melendez, RN Registered Nurse 01/04/24 Aislinn Viera, ANGE Registered Nurse 02/07/24 documented as of this encounter
--- OUTSIDE RECORDS SUMMARY | 2024-08-15 13:49 | XMS_ITS | Encounter Summary ---
Author [place] [address] Care Team Providers Care Occupational Ther Name Role Phone Swapnil Lopez MD Unavailable [phone] Damaso Black MD Primary Care Provider [phone] Darío Rubio MD Unavailable [phone] Mya Naranjo MD Unavailable [phone] Ashley Ordonez APRN Unavailable [phone] Nicole Melendez RN Unavailable Unavailable Aislinn Viera RN Unavailable Unavailable Reason for Visit * Reason Onset Date Comments Reschedule 03/05/2024 Calling to dorothy cassy Encounter Details Date Type Department Care Team (Late st Contact Info) Description 03/05/2024 Telephone [facility] [place] [address] Darío Rubio MD [address] [place], [place] [phone] Reschedule (Calling to reschedule) Social History Tobacco Use Types Packs/Day Years [...] 09/05/2017 11:13 AM LUCÍA Mercedes SHANNON Pierre documented as of this encounter Mental Status * Because of a physical, mental or emotional condition, does this person have serious difficulty concentrating, remembering or making decisions? Answer Entry Date Author No 09/05/2017 11:13 AM Gabby De La Garza RMA documented in this encounter Miscellaneous Notes * Telephone Encounter - Aislinn Viera RN - 03/06/2024 7:52 AM EDT RN aware of new appointment. * Telephone Encounter - Adrianna Cintron - 03/05/2024 4:40 PM EDT All Visit type(s) needing rescheduled: Madelyn JAMES Current Visit Date: 03/05/[address] Rubio Appointment Rescheduled to Date: 03/08 @ 1:30 w/Suri Diaz Reason for Rescheduling:MD request Preferred call back number:[phone] documented in this encounter Plan of Treatment Upcoming Encounters Date Type Department Care Team (Late st Contact Info) Description 09/11/2024 1:45 PM EST Office Visit [facility] [address] [place] [address] Swapnil Lopez MD [address] [facility] [address] 10/21/2024 2:00 PM EST Appointment [facility] MRI [address] [place] [address] Jacky Shirley MD 1 [facility] CANCER [place], [place] [address] 10/23/2024 1:45 PM EST Appointment [facility] ON[facility] [address] [place], [place] [phone] Olena Darby APRN [address] [place] [address] CANCER CARE [place], [place] [address] documented as of this encounter Goals Goal [...] documented as of this encounter Care Teams Occupational Ther Relationship Specialty Start Date End Date Damaso Black MD [address] [place] [address] PCP - General Family Medicine 11/22/22 Swapnil Lopez MD [address] [place] [address] Internal Medicine-Gastroenterology 02/16/22 Darío Rubio MD [address] [facility] [place] [address] Internal Medicine-Medical Oncology 12/11/23 Mya Naranjo MD [address] [place] [address] [place] [address] Family Medicine - Hospice And Palliative Medicine 01/04/24 Ashley Ordonez APRN [address] [place] [address] [place] [address] Nurse Practitioner 01/04/24 Nicole Melendez, RN Registered Nurse 01/04/24 Aislinn Viera, ANGE Registered Nurse 02/07/24 documented as of this encounter
--- OUTSIDE RECORDS SUMMARY | 2024-08-15 13:50 | XMS_ITS | Encounter Summary ---
Author Organization [place] [address] Care Team Providers Care Grievance Manager Name Role Phone Swapnil Lopez MD Unavailable [phone] Damaso Black MD Primary Care Provider [phone] Darío Rubio MD Unavailable [phone] Mya Naranjo MD Unavailable [phone] Ashley Ordonez APRN Unavailable [phone] Nicole Melendez RN Unavailable Unavailable Reason for Visit * Reason Onset Date Comments Schedule Appointment 01/23/2024 2 week f/u Encounter Details Date Type Department Care Team (Late st Contact Info) Description 01/23/2024 Telephone [facility] Medical On[facility] [place] [id number] Darío Rubio MD [address] [place] [address] Schedule Appointment (2 week f/u ) Social History Tobacco Use Types [...] Encounter - Nikky Virgen, Clerical Staff - 01/23/2024 4:09 PM EDT Pt is scheduled. * Telephone Encounter - Aislinn Viera RN - 01/23/2024 3:45 PM EDT Please schedule patient for 2 week follow up documented in this encounter Plan of Treatment Upcoming Encounters Date Type Department Care Team (Late st Contact Info) Description 09/11/2024 1:45 PM EST Office Visit [facility] [address] [place] [facility] [address] Swapnil Lopez MD [address] [place] [address] 10/21/2024 2:00 PM EST Appointment [facility] [place] MRI [address] [phone] Jacky Shirley MD [address] [place] [address] [place] [address] 10/23/2024 1:45 PM EST Appointment [facility] [address] Olena Darby APRN [address] [place] [address] [id number] documented as of this encounter Goals Goal [...] documented as of this encounter Care Teams Grievance Manager Relationship Specialty Start Date End Date Damaso Black MD [address] [place] [address] PCP - General Family Medicine 11/22/22 Swapnil Lopez MD [address] [place] [address] Internal Medicine-Gastroenterology 02/16/22 Darío Rubio MD [address] [place] [address] [place] [address] Internal Medicine-Medical Oncology 12/11/23 Mya Naranjo MD [address] [facility] [place] [address] Family Medicine - Hospice And Palliative Medicine 01/04/24 Ashley Ordonez APRN [address] [facility] [place] [address] Nurse Practitioner 01/04/24 Nicole Melendez, RN Registered Nurse 01/04/24 documented as of this encounter
--- OUTSIDE RECORDS SUMMARY | 2024-08-15 13:50 | XMS_ITS | Encounter Summary ---
Author Organization [place] [address] Care Team Providers Care Nuts And Bolts Assembler Name Role Phone Swapnil Lopez MD Unavailable [phone] Damaso Black MD Primary Care Provider [phone] Darío Rubio MD Unavailable [phone] Mya Naranjo MD Unavailable [phone] Ashley Ordonez APRN Unavailable [phone] Nicole Melendez RN Unavailable Unavailable Reason for Visit * Reason Onset Date Comments Appointment Needed 01/30/2024 Encounter Details Date Type Department Care Team (Late st Contact Info) Description 01/30/[address] [facility] Dermatology [address] [address] Linda Urbina MD [address] [place] [address] Appointment Needed Social History Tobacco Use Types Packs/Day Years [...] No 09/05/2017 11:13 AM Yolis De La Garzailey SHANNON * Does this person have difficulty [...] encounter Miscellaneous Notes * Telephone Encounter - Peyton Smith MA - 02/05/2024 4:04 PM EDT Pt called back am are just to much for her and she [place] out I offered 4 other time she can't do them either, I gave pt 1st opening with luis in March added to wait list * Telephone Encounter - Brenda Christensen RMA - 02/02/2024 11:14 AM EDT Left message for patient to call back to schedule 02/05 at 845 ONLY. * Telephone Encounter - James Prieto MD - 02/02/2024 10:32 AM EDT We can offer her 02/05 at 8:45. That's the only open slot I have next week. * Telephone Encounter - Brigette Hassan MD - 02/02/2024 10:06 AM EDT Unfortunately, I do not have any availability soon * Telephone Encounter - Linda Urbina MD - 02/02/2024 10:[address] Monson, anyway you can get this patient in next week? I am out of the office, and she needs help! * Telephone Encounter - Kip Walden MD - 02/01/2024 8:29 PM EDT I am out next week as well, do not have anything available prior to 02/13 * Telephone Encounter - Kelvin Rascon MD - 02/01/2024 4:34 PM EDT Unfortunately I do not have any closer appointments. * Telephone Encounter - James Prieto MD - 02/01/2024 1:56 PM EDT I also do not have anything sooner. * Telephone Encounter - Brigette Hassan MD - 02/01/2024 1:21 PM EDT I do not have any availability soon * Telephone Encounter - Linda Urbina MD - 01/30/2024 3:45 PM EDT Please let her know that I'm unfortunately out of the office next week. Am cc'ing a few of our other dermatology providers to see if they could see her next week. * Telephone Encounter - Alyssa Liz MA - 01/30/2024 2:54 PM EDT Double book Mondayfebruary 15? * Telephone Encounter - Jaja Saini MA - 01/30/2024 2:28 PM EDT Pt states she cannot do tomorrow - she lives 2 hours away and is requesting February 04, , or . Pleasecall pt to schedule thank you. * Telephone Encounter - Margaux Jackson MA - 01/30/2024 12:50 PM EDT Called pt and left VM to call back * Telephone Encounter - Linda Urbina MD - 01/30/2024 12:36 PM EDT Pls see if can come tomorrow at 11:15, thanks * Telephone Encounter - Margaux Jackson MA - 01/30/2024 10:38 AM EDT See note below * Telephone Encounter - Margaux Jackson MA - 01/30/2024 10:38 AM EDT Please advise, next open cancer care is in March * Telephone Encounter - Peyton Smith MA - 01/30/2024 10:34 AM EDT Cancer care called needs pt in bhakti please advise Rash documented in this encounter Plan of Treatment Upcoming Encounters Date Type Department Care Team (Late st Contact Info) Description 09/11/2024 1:45 PM EST Office Visit [facility] [address] [facility] [place] [address] Swapnil Lopez MD [address] [place] [address] 10/21/2024 2:00 PM EST Appointment [facility] MRI [address] [place] [address] Jacky Shirley MD [address] [place] [address] [place] [address] 10/23/2024 1:45 PM EST Appointment [facility] [place] [address] Olena Darby APRN [address] [place] [id number] documented as of this encounter Goals Goal [...] documented as of this encounter Care Teams Nuts And Bolts Assembler Relationship Specialty Start Date End Date Damaso Black MD [address] [facility] [address] [place] [address] PCP - General Family Medicine 11/22/22 Swapnil Lopez MD [address] [place] [address] Internal Medicine-Gastroenterology 02/16/22 Darío Rubio MD [address] [place] [address] [place] [address] Internal Medicine-Medical Oncology 12/11/23 Mya Naranjo MD [address] [place] [address] Family Medicine - Hospice And Palliative Medicine 01/04/24 Ashley Ordonez APRN [address] [place] [address] [place] [address] Nurse Practitioner 01/04/24 Nicole Melendez, RN Registered Nurse 01/04/24 documented as of this encounter
--- OUTSIDE RECORDS SUMMARY | 2024-08-15 13:50 | XMS_ITS | Encounter Summary ---
Author Organization [place] [address] Care Team Providers Care Supervisor Pairing And Inspecting Name Role Phone Swapnil Lopez MD Unavailable [phone] Damaso Black MD Primary Care Provider [phone] Jeremías Amin MD Unavailable [phone] Mya Naranjo MD Unavailable [phone] Ashley Ordonez APRN Unavailable [phone] Nicole Melendez RN Unavailable Unavailable Encounter Details Date Type Department Care Team (Latest Contact Info) Description 01/23/2024 11:47 AM EDT - 01/23/2024 12:58 PM EDT Hospital Encounter [place] [facility] [place] [address] Jeremías Amin MD 1 [place] [address] Invasive ductal carcinoma of breast, left (HCC) [...] of Assessment Author No 09/05/2017 11:13 AM aGbby De La Garza RMA * Because of [...] Date Author No 09/05/2017 11:13 AM LUCÍA Daren Gabby SHANNON documented in this encounter Medications at Time of Discharge ondansetron (ZOFRAN) 4 mg Oral Tablet Take 4 mg by mouth. 04/25/2022 promethazine (PHENERGAN) 25 mg Oral Tablet Take 1 Tablet by mouth every 4 hours as needed for Nausea or Vomiting for up to 30 days. 25mg every 4-6 hours as needed 30 Tablet 3 12/29/2023 01/28/2024 documented as of this encounter Discharge Disposition Disposition Code Departure Means Destination Home or Self Care documented in this encounter Plan of Treatment Upcoming Encounters Date Type Department Care Team (Late st Contact Info) Description 09/11/2024 1:45 PM EST Office Visit [facility] [address] [place] [facility] [facility] [address] Swapnil Lopez MD [address] [place] [address] 10/21/2024 2:00 PM EST Appointment [facility] [place] MRI [address], [place] [address] Jacky Shirley MD 1 [facility] [place] [address] 10/23/2024 1:45 PM EST Appointment [facility] [address] [place], [place] [phone] Olena Darby APRN 1 [facility] [place]CER [place], [place] [phone] documented as of this encounter Goals Goal [...] Diagnosis Comments EK EKG 12 LEAD Routine 01/23/2024 11:47 AM EDT Invasive ductal carcinoma of breast, left (HCC) documented in this encounter Results * EK EKG 12 LEAD (01/23/2024 11:47 AM EDT) Anatomical Region Laterality Modality Electrocardiogra phy 01/23/2024 12:0 1 PM EDT Impressions 01/24/2024 2:19 PM EDT ?[facility] ? Test Date: ?2024-01-23 Pat Name: ? RA CONNIE ?Department: ?? DEPID ? Room: ? Gender: ? Female ? Station Tender: ?? Am : ?1960 ? Requested By: JEREMÍAS AMIN Order Number: [id number] ?Reading MD: ?? Saadeddine Nicole ? Measurements Intervals ?[place] ? Rate: ? 64 ? P: ? AL: ?QRS: ?25 QRSD: ? 82 ? T: ?29 QT: ? 396 ? QTc: ?409 ? Interpretive Statements Sinus RHYTHM with short AL interval Electronically Signed On 01-24-2024 14:19:35 EDT by Kirk Rivera Narrative Procedure Note Kirk Rivera MD - 01/24/[address] Test Date: 2024-01-23 Pat Name: RA SY Department: DEPID Room: Gender: Female Station Tender: Am : 1960 Requested By: JEREMÍAS AMIN Order Number: [id number] Reading MD: Kirk Rivera Measurements Intervals [place] Rate: 64 P: AL: QRS: 25 QRSD: 82 T: 29 QT: 396 QTc: 409 Interpretive Statements Sinus RHYTHM with short AL interval Electronically Signed On 01-24-2024 14:19:35 EDT by Kirk Rivera us Jeremías Amin MD IMG ECG ORDERABLES Final Resul t documented in this encounter Visit Diagnoses Diagnosis Invasive ductal carcinoma of breast, left (HCC) documented in this encounter Additional Health Concerns Assessment Noted Time PHQ-9 Depression Total Score: 13 024 1:47 PM EDT PHQ-2 Depression Total Score: 3 12/29/19 24 1:47 PM EDT documented as of this encounter Care Teams Supervisor Pairing And Inspecting Relationship Specialty Start Date End Date Damaso Black MD [address] [facility] [address] [place] [address] PCP - General Family Medicine 11/22/22 Swapnil Lopez MD [address] [place] [address] Internal Medicine-Gastroenterology 02/16/22 Jeremías Amin MD [address] [place] [address] [place] [address] Internal Medicine-Medical Oncology 12/11/23 Mya Naranjo MD [address] [facility] [place] [address] Family Medicine - Hospice And Palliative Medicine 01/04/24 Ashley Ordonez APRN [address] [facility] [place] [address] Nurse Practitioner 01/04/24 Nicole Melendez, RN Registered Nurse 01/04/24 documented as of this encounter
--- OUTSIDE RECORDS SUMMARY | 2024-08-15 13:50 | XMS_ITS | Encounter Summary ---
Author [place] [address] Care Team Providers Care Rubber Stamp Assembler Name Role Phone Swapnil Lopez MD Unavailable [phone] Damaso Black MD Primary Care Provider [phone] Darío Rubio MD Unavailable [phone] Mya Naranjo MD Unavailable [phone] Ashley Ordonez APRN Unavailable [phone] Nicole Melendez RN Unavailable Unavailable Encounter Details Date Type Department Care Team (Late st Contact Info) Description 01/23/2024 Orders Only [place] [address] [place], [facility] Invasive ductal carcinoma of breast, left (HCC) Social History Tobacco Use Types Packs/Day [...] followed by 7 days off 42 Tablet 02/07/2024 3:51 PM EDT 01/23/2024 4 documented in this encounter Plan of Treatment Upcoming Encounters Date Type Department Care Team (Late st Contact Info) Description 09/11/2024 1:45 PM EST Office Visit [facility] [address] [facility] [place] [address] Swapnil Lopez MD [address] [place] [address] 10/21/2024 2:00 PM EST Appointment [facility] MRI [address] [place] [address] Jacky Shirley MD [address] [place] [address] [place] [address] 10/23/2024 1:45 PM EST Appointment [facility] RAD ONC [address] [place], [place] [phone] Olena Darby APRN 1 [facility] [place], [place] [phone] documented as of this encounter Goals Goal [...] Start Date End Da te ribociclib (KISQALI) 600 mg/day (200 mg x 3) Oral TabletIndications:Invasi ve ductal carcinoma of breast, left (HCC) Take 2 Tablets by mouth daily for 21 days. Dose adjustment 01/23/2024 01/23/2024 documented as of this encounter Additional Health Concerns Assessment Noted Time PHQ-9 Depression Total Score: 13 024 1:47 PM EDT PHQ-2 Depression Total Score: 3 12/29/19 24 1:47 PM EDT documented as of this encounter Care Teams Rubber Stamp Assembler Relationship Specialty Start Date End Date Damaso Black MD [address] [address] PCP - General Family Medicine 11/22/22 Swapnil Lopez MD [address] [place] [address] Internal Medicine-Gastroenterology 02/16/22 Darío Rubio MD [address] [facility] [place] [address] Internal Medicine-Medical Oncology 12/11/23 Mya Naranjo MD [address] [facility] [place] [address] Family Medicine - Hospice And Palliative Medicine 01/04/24 Ashley Ordonez APRN [address] [facility] [place] [address] Nurse Practitioner 01/04/24 Nicole Melendez, RN Registered Nurse 01/04/24 documented as of this encounter
--- OUTSIDE RECORDS SUMMARY | 2024-08-15 13:50 | XMS_ITS | Encounter Summary ---
[facility] [address] [place] [address] Care Team Providers Care Bombsight Specialist Name Role Phone Swapnil Lopez MD Unavailable [phone] Damaso Black MD Primary Care Provider [phone] Darío Rubio MD Unavailable [phone] Mya Naranjo MD Unavailable [phone] Ashley Ordonez APRN Unavailable [phone] Nicole Melendez RN Unavailable Unavailable Aislinn Viera RN Unavailable Unavailable Encounter Details Date Type Department Care Team (Late st Contact Info) Description 02/15/2024 11:00 AM EDT Telemedicine [facility] [address] [place] [address] Swapnil Lopez MD [address] [place] [address] Crohn's disease of both small [...] AM Gabby De La Garza RMKay * Does this person have serious difficulty walking or climbing stairs? Answer Date of Assessment Author No 09/05/2017 11:13 AM Gabby De La Garza LUA * Does this person have difficulty dressing or bathing? Answer Date of Assessment Author No 09/05/2017 11:13 AM Gabby De La Garza RMKay * Because of a physical, mental or [...] documented in this encounter Progress Notes * Swapnil Lopez MD - 02/15/2024 11:00 AM EDT Images from the original note were not included. Subjective Subjective: Patient ID: Marleni Way is a 63 y.o. female. No chief complaint on file. HPI I met with Seamus Sy by telephone today. As you know, Seamus is a very pleasant 63-year-old female with a long history of severe Crohn's disease. She has had Crohn's for 43 years and it has been complicated by perianal disease and fistulae. Her last colonoscopy was done at the [facility] in December of 2019 showing pancolitis and severe terminal ileitis. 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 She failed management with Entyvio and Stelara. I last saw her in July of 2022. At that time, she was having her best response to tramadol, Lomotil, and occasional burst and taper of prednisone. I did give her a trial of Uceris on herlast visit in July of 2022. I spoke to Seamus by telephone today. She was diagnosed with stage IV breast cancer and she has beenreceiving chemotherapy and she received brain radiation. She notes that she has been doing fairly well with her treatments and overall feels better. She did have a flare of her diarrhea with her hemoglobin therapy but when the doses were reduced, she has noticed marked improvement. In fact, she feels like she is doing much better than before treatment. She still can have 5-10 bowel movements in aday and she controls that with eight Lomotil daily. She has not had any rectal bleeding. She has had some abdominal pain which has been controlled with tramadol. She has been eating well and she has h ad no nausea, vomiting, anorexia, or weight loss. She has had no heartburn or dysphagia. Patients past medical, family and social histories were reviewed and updated. There were no changesexcept as noted. Review of Systems Gastrointestinal: Positive for abdominal distention, abdominal pain and diarrhea. Objective Objective: There were no vitals filed for this visit.There is no height or weight on file to calculate BMI. Physical Exam Assessment and Plan: Diagnoses and all orders for this visit: Crohn's disease of both small and large intestine without complication (HCC) (Chronic) Seamus Sy has a long history of severe Crohn's disease with complications. 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 She has actually been doing quite well with her hemotherapy and her Crohn's is at baseline. She was due for a colonoscopy last year butI do not feel that we should proceed given her stage IV breast cancer. If she does flare, my plan was to try her on Rinvoq. At this point, I will manage her expectantly and I will plan to see her in follow-up in four months She knows to contact me sooner should the need arise. Thank you, Damaso, for allowing me to participate in the care of Seamus. If you have any questions, please do not hesitate to contact me any time. Return in about 4 months (around 06/17/2024) for office visit. documented in this encounter Plan of Treatment Upcoming Encounters Date Type Department Care Team (Late st Contact Info) Description 09/11/2024 1:45 PM EST Office Visit [facility] [address] [facility], [place] [phone] Swapnil Lopez MD [address] [place] [address] 10/21/2024 2:00 PM EST Appointment [facility] MRI [address] [place] [address] Jacky Shirley MD 1 [facility] CANCER [place], [place] [id number] 10/23/2024 1:45 PM EST Appointment [facility] ON[facility] [address] [place], [place] [phone] Olena Darby APRN [address] [place] [address] documented as of this encounter Goals Goal [...] documented as of this encounter Care Teams Bombsight Specialist Relationship Specialty Start Date End Date Damaso Black MD [address] [place] [address] PCP - General Family Medicine 11/22/22 Swapnil Lopez MD [address] [place] [address] Internal Medicine-Gastroenterology 02/16/22 Darío Rubio MD [address] [place] [address] [place] [address] Internal Medicine-Medical Oncology 12/11/23 Mya Naranjo MD [address] [place] [address] [place] [address] Family Medicine - Hospice And Palliative Medicine 01/04/24 Ashley Ordonez APRN [address] [place] [address] [place] [address] Nurse Practitioner 01/04/24 Nicole Melendez, RN Registered Nurse 01/04/24 Aislinn Viera, ANGE Registered Nurse 02/07/24 documented as of this encounter
--- OUTSIDE RECORDS SUMMARY | 2024-08-15 13:50 | XMS_ITS | Encounter Summary ---
Author Organization [place] [address] Care Team Providers Care Canoe Inspector Name Role Phone Swapnil Lopez MD Unavailable [phone] Damaso Black MD Primary Care Provider [phone] Darío Rubio MD Unavailable [phone] Mya Naranjo MD Unavailable [phone] Ashley Ordonez LIGHTHOUSE KEEPER Unavailable [phone] Nicole Melendez RN Unavailable Unavailable Reason for Visit * Reason Onset Date Comments Medication Refill 01/23/2024 Encounter Details Date Type Department Care Team (Late st Contact Info) Description 01/23/2024 Refill [facility] [place] [address] x4 Ashley Ordonez, LIGHTHOUSE KEEPER [address] [place] [address] Medication Refill Social History Tobacco Use Types [...] Author No 09/05/2017 11:13 AM LUCÍA Gabby MercedesSHANNON documented as of this encounter Mental Status [...] Pain. MAX OF 6 TABLETS PER DAY 180 Tablet 01/23/2024 2:03 PM EDT 01/23/2024 4 documented in this encounter Miscellaneous Notes * Telephone Encounter - Ashley Ordonez APRN - 01/23/2024 1:16 PM EDT Refill on Tramadol documented in this encounter Plan of Treatment Upcoming Encounters Date Type Department Care Team (Late st Contact Info) Description 09/11/2024 1:45 PM EST Office Visit [facility] [address] [place] [address] Swapnil Lopez MD [address] [place] [address] 10/21/2024 2:00 PM EST Appointment [facility] [place] MRI [address] [address] Jacky Shirley MD 1 [facility] [place], [place] [phone] 10/23/2024 1:45 PM EST Appointment [facility] RAD ONC [address] [place], [place] [phone] Olena Darby APRN [address] [place] [address] CANCER [place], [place] [phone] documented as of this encounter Goals Goal Patient Goal Type Associated Problems Recent Progress Patient-Stated? Author Breast [facility] Breast [facility] Mary Kate Vázquez, RN Note: Patient acknowledges [...] (HCC) Take 2 Tablets by mouth every 6 hours as needed for Pain for up to 7 days. MAX of 8 tablets per day Reorder 01/16/2024 01/23/2024 documented as of this encounter Additional Health Concerns Assessment Noted Time PHQ-9 Depression Total Score: 13 024 1:47 PM EDT PHQ-2 Depression Total Score: 3 12/29/19 24 1:47 PM EDT documented as of this encounter Care Teams Canoe Inspector Relationship Specialty Start Date End Date Damaso Black MD [address] [place] [address] PCP - General Family Medicine 11/22/22 Swapnil Lopez MD [address] [place] [address] Internal Medicine-Gastroenterology 02/16/22 Darío Rubio MD [address] [place] [address] [place] [address] Internal Medicine-Medical Oncology 12/11/23 Mya Naranjo MD [address] [place] [address] [place] [address] Family Medicine - Hospice And Palliative Medicine 01/04/24 Ashley Ordonez APRN [address] [place] [address] [place] [address] Nurse Practitioner 01/04/24 Nicole Melendez, RN Registered Nurse 01/04/24 documented as of this encounter
--- OUTSIDE RECORDS SUMMARY | 2024-08-15 13:50 | XMS_ITS | Encounter Summary ---
Author Organization [place] [address] Care Team Providers Care Employment Program Representative Name Role Phone Swapnil Lopez MD Unavailable [phone] Damaso Black MD Primary Care Provider [phone] Darío Rubio MD Unavailable [phone] Mya Naranjo MD Unavailable [phone] Ashley Ordonez APRN Unavailable [phone] Nicole Melendez RN Unavailable Unavailable Reason for Visit * Reason Onset Date Comments Other 01/25/2024 Returning call Encounter Details Date Type Department Care Team (Late st Contact Info) Description 01/25/2024 Telephone [facility] Medical Oncology [place] [id number] Darío Rubio MD [address] [place], [place] [id number] Other (Returning call) Social History Tobacco Use Types Packs/Day Years [...] Telephone Encounter - Aislinn Viera RN - 01/26/2024 8:11 AM EDT Called and spoke to Dr. Chin's office. Dr. Chin had called in script but never picked a pharmacy.Script called in yesterday afternoon. * Telephone Encounter - Yaa Canchola, Clerical Staff - 01/25/2024 4:30 PM EDT Reason for call: Patient returning call to RN. States that she hasn't seen Dr. Lopez in a year. Teams message sent to RN and was advised to let patient know that she is working on [employer] script and got things figured out. Patient vu. No further needs at this time. Preferred call back number:[phone] documented in this encounter Plan of Treatment Upcoming Encounters Date Type Department Care Team (Late st Contact Info) Description 09/11/2024 1:45 PM EST Office Visit [facility] [address] [place] [facility] [place] [address] Swapnil Lopez MD [address] [facility] [address] 10/21/2024 2:[address] [facility] MRI [address] [place] [address] Jacky Shirley MD [address] [place] [address] [place], [place] [id number] 10/23/2024 1:45 PM EST Appointment [facility] [address] [place], [place] [phone] Olena Darby APRN [address] [place] [address] [place], [place] [id number] documented as of this encounter Goals Goal [...] documented as of this encounter Care Teams Employment Program Representative Relationship Specialty Start Date End Date Damaso Black MD [address] [place] [address] PCP - General Family Medicine 11/22/22 Swapnil Lopez MD [address] [place] [address] Internal Medicine-Gastroenterology 02/16/22 Darío Rubio MD [address] [facility] [place] [address] Internal Medicine-Medical Oncology 12/11/23 Mya Naranjo MD [address] [facility] [place] [address] Family Medicine - Hospice And Palliative Medicine 01/04/24 Ashley Ordonez APRN [address] [facility] [place] [address] Nurse Practitioner 01/04/24 Nicole Melendez, RN Registered Nurse 01/04/24 documented as of this encounter
--- OUTSIDE RECORDS SUMMARY | 2024-08-15 13:50 | XMS_ITS | Encounter Summary ---
Author Organization [place] [address] Care Team Providers Care Fire Fighter [employer] Name Role Phone Swapnil Lopez MD Unavailable Damaso Black MD Primary Care Provider [phone] Darío Rubio MD Unavailable [phone] Mya Naranjo MD Unavailable [phone] Ashley Ordonez APRN Unavailable [phone] Nicole Melendez RN Unavailable Unavailable Reason for Visit * Reason Onset Date Comments Schedule Appointment 02/01/2024 Encounter Details Date Type Department Care Team (Late st Contact Info) Description 02/01/2024 Telephone [facility] Dermatology [address] [address] Linda Urbina MD [address] [place] [address] Schedule Appointment Social History Tobacco Use Types Packs/Day [...] encounter Miscellaneous Notes * Telephone Encounter - Zenaida King - 02/01/2024 10:48 AM EDT LMOM to schedule an appt with Dr Urbina as a cancer care referral documented in this encounter Plan of Treatment Upcoming Encounters Date Type Department Care Team (Late st Contact Info) Description 09/11/2024 1:45 PM EST Office Visit [facility] [address] [facility] [place] [address] Swapnil Lopez MD [address] [place] [facility] [place] [address] 10/21/2024 2:00 PM EST Appointment [facility] [address] [place], [place] [phone] Jacky Shirley MD 1 [facility] [address] 10/23/2024 1:45 PM EST Appointment [facility] [place] [address] Olena Darby APRN 1 [facility] [place] [address] documented as of this encounter Goals Goal [...] documented as of this encounter Care Teams Fire Fighter [employer] Relationship Specialty Start Date End Date Damaso Black MD 100[address] [facility] 22 [place] [address] PCP - General Family Medicine 11/22/22 Swapnil Lopez MD [address] [place] [address] Internal Medicine-Gastroenterology 02/16/22 Darío Rubio MD [address] [place] [address] [place] [address] Internal Medicine-Medical Oncology 12/11/23 Mya Naranjo MD [address] [place] [address] [place] [address] Family Medicine - Hospice And Palliative Medicine 01/04/24 Ashley Ordonez APRN [address] [facility] [place] [address] Nurse Practitioner 01/04/24 Nicole Melendez, RN Registered Nurse 01/04/24 documented as of this encounter
--- OUTSIDE RECORDS SUMMARY | 2024-08-15 13:50 | XMS_ITS | Encounter Summary ---
Author Organization [facility] [place] [address] Care Team Providers Care Fish Stringer Assembler Name Role Phone Swapnil Lopez MD Unavailable [phone] Damaso Black MD Primary Care Provider [phone] Darío Rubio MD Unavailable [phone] Mya Naranjo MD Unavailable [phone] Ashley Ordonez APRN Unavailable [phone] Nicole Melendez RN Unavailable Unavailable Encounter Details Date Type Department Care Team (Latest Contact Info) Description 02/02/2024 Travel Social History Tobacco Use Types Packs/Day [...] PM EST Office Visit [facility] [address] [place] [address] Swapnil Lopez MD [address] [place] [address] 10/21/2024 2:00 PM EST Appointment [facility] MRI [address] [place] [address] Jacky Shirley MD [address] [place] [address] [place] [address] 10/23/2024 1:45 PM EST Appointment [facility] [place] [address] Olena Darby APRN [address] [place] [address] documented as of this encounter Goals [...] documented as of this encounter Care Teams Fish Stringer Assembler Relationship Specialty Start Date End Date Damaso Black MD 100[address] [facility] [address] [place] [address] PCP - General Family Medicine 11/22/22 Swapnil Lopez MD [address] [place] [address] Internal Medicine-Gastroenterology 02/16/22 Darío Rubio MD [address] [place] [address] Internal Medicine-Medical Oncology 12/11/23 Mya Naranjo MD [address] [place] [address] Family Medicine - Hospice And Palliative Medicine 01/04/24 Ashley Ordonez APRN [address] [place] [address] Nurse Practitioner 01/04/24 Nicole Melendez, RN Registered Nurse 01/04/24 documented as of this encounter
--- OUTSIDE RECORDS SUMMARY | 2024-08-15 13:50 | XMS_ITS | Encounter Summary ---
Author Organization [place] [address] Care Team Providers Care Metal Cans Supervisor Name Role Phone Swapnil Lopez MD Unavailable [phone] Damaso Black MD Primary Care Provider [phone] Darío Rubio MD Unavailable [phone] Mya Naranjo MD Unavailable [phone] Ashley Ordonez APRN Unavailable [phone] Nicole Melendez RN Unavailable Unavailable Encounter Details Date Type Department Care Team (Latest Contact Info) Description 01/23/2024 10:40 AM EDT - 01/23/2024 10:59 AM EDT Hospital [facility] [phone] Invasive ductal carcinoma of breast, left (HCC) [...] No 09/05/2017 11:13 AM Gabby De La Graza RMA documented in this encounter Medications at [...] PM EST Office Visit [facility] [address] [facility] [place] [address] Swapnil Lopez MD [address] [place] [address] 10/21/2024 2:00 PM EST Appointment [facility] [address] [place] [address] Jacky Shirley MD [address] [place] [address] [place] [address] 10/23/2024 1:45 PM EST Appointment [facility] [place] [address] Olena Darby APRN [address] [place] [address] [place] [address] documented as of this encounter Goals Goal [...] Associated Diagnosis Comments CBC WITH DIFF Routine 01/23/2024 10:58 AM EDT Invasive ductal carcinoma of breast, left (HCC) COMPREHENSIVE METABOLIC PANEL Routine 01/23/2024 10:58 AM EDT Invasive ductal carcinoma of breast, left (HCC) documented in this encounter Results * (ABNORMAL) COMPREHENSIVE METABOLIC PANEL (01/23/2024 10:58 AM EDT) Sodium 141 136 - 145 mmol/L 01/23/2024 12:47 PM EDT [facility] Potassium 4.2 3.5 - 5.0 mmol/L 01/23/2024 12:47 PM EDT [facility] Chloride 106 98 - 107 mmol/L 01/23/2024 12:47 PM EDT [facility] Total CO2 27 22 - 29 mmol/L 01/23/2024 12:47 PM EDT [facility] Anion Gap 8 7 - 16 mmol/L 01/23/2024 12:47 PM EDT [facility] Calcium 8.8 8.8 - 10.4 mg/dL 01/23/2024 12:47 PM EDT [facility] Glucose Lvl 115(H) 70 - 99 mg/dL 01/23/2024 12:47 PM EDT [facility] BUN 9 8 - 23 mg/dL 01/23/2024 12:47 PM EDT [facility] Creatinine 0.99 0.51 - 1.30 mg/dL 01/23/2024 12:47 PM EDT [facility] Albumin 3.3 3.2 - 4.6 gm/dL 01/23/2024 12:47 PM EDT [facility] Total Protein 6.1(L) 6.4 - 8.3 gm/dL 01/23/2024 12:47 PM EDT [facility] Bili Total 0.4 0.2 - 1.3 mg/dL 01/23/2024 12:47 PM EDT [facility] ALT 10 <=41 U/L 01/23/2024 12:47 PM EDT [facility] AST 12 <=40 U/L 01/23/2024 12:47 PM EDT [facility] Alk Phos 101 36 - 123 U/L 01/23/2024 12:47 PM EDT [facility] eGFR (CKD-EPIcr 2020) 64 >=60 mL/min/1.7 3 m2 01/23/2024 12:47 PM EDT [facility] Comment:Estimated GFR was ca lculated using the CKD-EPIcr (2020) equation refit without race. The equation is recommended by the National Kidney Foundation - [place] [employer] Nephrology Task Force. Blood VENOUS BLOOD / Unknown Venipuncture / Unknown 01/23/2024 10:58 AM EDT 01/23/2024 10:58 AM EDT us Darío Rubio MD CHEMISTRY ORDERABLES Final Res ult [facility], [address], [address] [place] [id number] [facility] [address] [place], [place] [phone] * (ABNORMAL) CBC WITH DIFF (01/23/2024 10:58 AM EDT) [facility] Signature WBC 3.7 3.7 - 10.3 x10(3)/mcL 01/23/2024 11:45 AM EDT [facility] RBC 4.08 3.90 - 5.20 x10(6)/mcL 01/23/2024 11:45 AM EDT [facility] Hgb 11.5 11.2 - 15.7 g/dL 01/23/2024 11:45 AM EDT [facility] Hct 36.5 34.0 - 45.0 % 01/23/2024 11:45 AM EDT [facility] MCV 89.5 80.0 - 100.0 fL 01/23/2024 11:45 AM EDT [facility] MCH 28.2 26.0 - 34.0 pg 01/23/2024 11:45 AM EDT [facility] MCHC 31.5 30.7 - 35.5 g/dL 01/23/2024 11:45 AM EDT [facility] RDW 13.2 <=14.9 % 01/23/2024 11:45 AM EDT [facility] Platelet 209 155 - 369 x10(3)/mcL 01/23/2024 11:45 AM EDT [facility] MPV 9.1 8.8 - 12.5 fL 01/23/2024 11:45 AM EDT [facility] Neut Percent 61.7 % 01/23/2024 11:45 AM EDT [facility] Comment:Neutrophils equals s egs plus bands Imm Gran% 0.3 % 01/23/2024 11:45 AM EDT [facility] Comment:Automated count of m etamyelocytes, myelocytes and promyelocytes. Lymph Percent 28.6 % 01/23/2024 11:45 AM EDT [facility] Crawford Percent 6.7 % 01/23/2024 11:45 AM EDT [facility] Eos Percent 2.2 % 01/23/2024 11:45 AM EDT [facility] Baso Percent 0.5 % 01/23/2024 11:45 AM EDT [facility] Neut # 2.3 1.6 - 6.1 x10(3)/[facility] 01/23/2024 11:45 AM EDT [facility] Comment:Neutrophils equals s egs plus bands IMMGRAN# 0.0 0.0 - 0.1 x10(3)/[facility] 01/23/2024 11:45 AM EDT [facility] Comment:Automated count of m etamyelocytes, myelocytes and promyelocytes. An absolute IG <0.1 is reported as 0.0. Lymph # 1.1(L) 1.2 - 3.9 x10(3)/[facility] 01/23/2024 11:45 AM EDT [facility] Crawford # 0.3 0.3 - 0.9 x10(3)/[facility] 01/23/2024 11:45 AM EDT [facility] Eos# 0.1 0.0 - 0.5 x10(3)/[facility] 01/23/2024 11:45 AM EDT [facility] Baso # 0.0 0.0 - 0.1 x10(3)/[facility] 01/23/2024 11:45 AM EDT [facility], [facility] Blood VENOUS BLOOD / Unknown Venipuncture / Unknown 01/23/2024 10:58 AM EDT 01/23/2024 10:58 AM EDT us Darío Rubio MD HEMATOLOGY ORDERABLES Final Re sult [facility] [address] [facility] , [place] [address] documented in this encounter Visit Diagnoses Diagnosis Invasive ductal carcinoma of breast, left (HCC) documented in this encounter Additional Health Concerns Assessment Noted Time PHQ-9 Depression Total Score: 13 024 1:47 PM EDT PHQ-2 Depression Total Score: 3 12/29/19 24 1:47 PM EDT documented as of this encounter Care Teams Metal Cans Supervisor Relationship Specialty Start Date End Date Damaso Black MD [address] [place] [address] PCP - General Family Medicine 11/22/22 Swapnil Lopez MD [address] [place] [address] Internal Medicine-Gastroenterology 02/16/22 Darío Rubio MD [address] [facility] [place] [address] Internal Medicine-Medical Oncology 12/11/23 Mya Naranjo MD [address] [facility] [place] [address] Family Medicine - Hospice And Palliative Medicine 01/04/24 Ashley Ordonez APRN [address] [facility] [place] [address] Nurse Practitioner 01/04/24 Nicole Melendez, RN Registered Nurse 01/04/24 documented as of this encounter
--- OUTSIDE RECORDS SUMMARY | 2024-08-15 13:50 | XMS_ITS | Encounter Summary ---
Author Organization [facility] Address [address] [place] [address] Care Team Providers Care Asphalt Distributor Tender Name Role Phone Swapnil Lopez MD Unavailable [phone] Damaso Black MD Primary Care Provider [phone] Darío Rubio MD Unavailable [phone] Mya Naranjo MD Unavailable [phone] Ashley Ordonez APRN Unavailable [phone] Nicole Melendez RN Unavailable Unavailable Reason for Visit * Reason Onset Date Comments Procedure 01/24/2024 Encounter Details Date Type Department Care Team (Late st Contact Info) Description 01/24/2024 Telephone [facility] [address] [place] [address] Swapnil Lopez MD [address] [place] [address] Procedure Social History Tobacco Use Types Packs/Day Years [...] encounter Miscellaneous Notes * Telephone Encounter - Sadia Escobar - 01/24/2024 11:41 AM EDT called pt from referral, colonoscopy, Dr Lopez, pt refused documented in this encounter Plan of Treatment Upcoming Encounters Date Type Department Care Team (Late st Contact Info) Description 09/11/2024 1:45 PM EST Office Visit [facility] [address] [place] [facility] [place] [address] Swapnil Lopez MD [address] [place] [address] 10/21/2024 2:00 PM EST Appointment [facility] [address] [place], [place] [phone] Jacky Shirley MD 1 [facility] [place] [address] 10/23/2024 1:45 PM EST Appointment [facility] [place] [address] Olena Darby APRN 1 [facility] [place] [address] documented as of this encounter Goals Goal [...] documented as of this encounter Care Teams Asphalt Distributor Tender Relationship Specialty Start Date End Date Damaso Black MD 100[address] [facility] [address] [place] [address] PCP - General Family Medicine 11/22/22 Swapnil Lopez MD [address] [place] [address] Internal Medicine-Gastroenterology 02/16/22 Darío Rubio MD [address] [place] [address] [place] [address] Internal Medicine-Medical Oncology 12/11/23 Mya Naranjo MD [address] [place] [address] [place] [address] Family Medicine - Hospice And Palliative Medicine 01/04/24 Ashley Ordonez APRN 1 [facility] [place] [address] Nurse Practitioner 01/04/24 Nicole Melendez, RN Registered Nurse 01/04/24 documented as of this encounter
--- OUTSIDE RECORDS SUMMARY | 2024-08-15 13:50 | XMS_ITS | Encounter Summary ---
Author Organization [place] [address] Care Team Providers Care Prosthetic Aides Teacher Name Role Phone Swapnil Lopez MD Unavailable [phone] Damaso Black MD Primary Care Provider [phone] Darío Rubio MD Unavailable Mya Naranjo MD Unavailable [phone] Ashley Ordonez APRN Unavailable [phone] Nicole Melendez RN Unavailable Unavailable Aislinn Viera RN Unavailable Unavailable Reason for Visit * Reason Onset Date Comments Medication Refill 02/07/2024 Encounter Details Date Type Department Care Team (Late st Contact Info) Description 02/07/2024 Refill [facility] Medical Oncology [place] [id number] Darío Rubio MD [address] [place], [place] [phone] Medication Refill Social History Tobacco Use Types [...] 11:13 AM LUCÍA Gabby Mercedes RMA documented as of this encounter Mental Status * Because of a physical, mental or emotional condition, does this person have serious difficulty concentrating, remembering or making decisions? Answer Entry Date Author No 09/05/2017 11:13 AM Gabby De La Garza RMA documented in this encounter Miscellaneous Notes * Telephone Encounter - Aislinn Viera RN - 02/07/2024 4:05 PM EDT Script filled while patient was in appointment with Dr. Rubio. documented in this encounter Plan of Treatment Upcoming Encounters Date Type Department Care Team (Late st Contact Info) Description 09/11/2024 1:45 PM EST Office Visit [facility] [address] [place] [facility] [place] [address] Swapnil Lopez MD [address] [facility] [address] 10/21/2024 2:00 PM EST Appointment [facility] [address] [place], [place] [phone] Jacky Shirley MD 1 [facility] [place] [address] 10/23/2024 1:45 PM EST Appointment [facility] [address] [address] [place], [place] [phone] Olena Darby APRN 1 [facility] [place] [address] documented as of this encounter Goals Goal [...] documented as of this encounter Care Teams Prosthetic Aides Teacher Relationship Specialty Start Date End Date Damaso Black MD 100[address] [facility] [address] [place] [address] PCP - General Family Medicine 11/22/22 Swapnil Lopez MD [address] [place] [address] Internal Medicine-Gastroenterology 02/16/22 Darío Rubio MD [address] [facility] [place] [address] Internal Medicine-Medical Oncology 12/11/23 Mya Naranjo MD [address] [facility] [place] [address] Family Medicine - Hospice And Palliative Medicine 01/04/24 Ashley Ordonez APRN [address] [facility] [place] [address] Nurse Practitioner 01/04/24 Nicole Melendez, RN Registered Nurse 01/04/24 Aislinn Viera, RN Registered Nurse 02/07/24 documented as of this encounter
--- OUTSIDE RECORDS SUMMARY | 2024-08-15 13:50 | XMS_ITS | Encounter Summary ---
Author Organization [place] [address] Care Team Providers Care Certified Technician Name Role Phone Swapnil Lopez MD Unavailable [phone] Damaso Black MD Primary Care Provider [phone] Jeremías Amin MD Unavailable [phone] Mya Naranjo MD Unavailable [phone] Ashley Ordonez APRN Unavailable [phone] Nicole Melendez RN Unavailable Unavailable Aislinn Viera RN Unavailable Unavailable Reason for Referral * DEXA (Routine) - Closed Specialty Diagnoses / Procedures Referred By Contac t Referred To Contact Radiology Diagnoses Invasive ductal carcinoma of left breast, stage 4 (HCC) Procedures DX BONE DENSITY AXIAL SKELETON Jeremías Amin MD [address] [place] [address] Phone: tel: fax: Referral ID Status Reason Start Date Expiration Date Visits Re quested Visits Authorized [id number] Closed 02/07/2024 02/06/2025 1 1 Reason for Visit * Reason Comments Follow-up Breast Cancer Medication Refill Lomotil Rash Pt. States that she still has that rash on her back. Encounter Details Date Type Department Care Team (Latest Contact Info) Description 02/07/2024 2:46 PM EDT - 02/07/2024 11:59 PM EDT Hospital Encounter Cancer [place] [address] Jacky Shirley MD 1 [facility] [place], [place] [id number] Jeremías Amin MD 1 [facility] [place] [address] Invasive ductal carcinoma of left breast, stage 4 (HCC) (Primary Dx); Crohn's disease of both small and large intestine without complication (HCC); Skin rash Discharge Disposition: Home or Self Care Social [...] Sign Reading Time Taken Comments Blood Pressure 117/71 02/07/2024 2:54 PM EDT Pulse 67 02/07/2024 2:54 PM EDT Temperature 36.8 ??C (98.2 ??F) 02/07/2024 2:54 PM ED T Respiratory Rate 16 02/07/2024 2:54 PM EDT Oxygen Saturation 100% 02/07/2024 2:54 PM EDT Inhaled Oxygen Concentration - - Weight 56.8 kg (125 lb 3.2 oz) 02/07/2024 2:54 P M EDT Height 157.5 cm (5' 2 ) 02/07/2024 2:54 PM EDT Body Mass Index 22.9 02/07/2024 2:54 PM EDT documented in this encounter Functional [...] 01/24/2024 4 documented as of this encounter Ordered Prescriptions Prescription Sig Dispense Quantity Refills Last Filled Start Date End Date triamcinolone (KENALOG) 0.1 % Top CreamIndications:S kin rash Apply topically 3 times daily. 80 g 02/07/2024 diphenoxylate-atro pine (LOMOTIL) 2.5-0.025 mg Oral TabletIndications: Crohn's disease of both small and large intestine without complication (HCC) TAKE 2 TABLETS BY MOUTH FOUR TIMES DAILY NEEDED. NO MORE THAN 8 TABLETS PER DAY 60 Tablet 1 02/07/2024 4 documented in this encounter Discharge Disposition Disposition Code Departure Means Destination Home or Self Care documented in this encounter Progress Notes * Jeremías Amin MD - 02/07/2024 3:00 PM EDT Images from the original note were not included. ONCOLOGY FOLLOW-UP: Primary Oncologist: Jeremías Amin MD ONCOLOGY PROBLEM LIST: Oncology History Invasive [...] panel testing results were negative. CURRENT TREATMENT: 400 mg of Kisqali 1 mg of arimidex INTERVAL HISTORY: Ms. Rosales is a 63 y.o. female who is here for follow up. Patient states that since last visit she is doing well. Diarrhea improved. Skin rash worsened she says. Reviewed past medical, surgical, family, and social [...] No easy bruising; no anemia. PHYSICAL EXAM: Vitals: 02/07/24 1454 BP: 117/71 Pulse: 67 Resp: 16 Temp: 98.2 ??F (36.8 ??C) SpO2: 100% Wt Readings from Last 3 Encounters: 02/07/24 125 lb 3.2 oz (56.8 kg) 01/23/24 126 lb 9.6 oz (57.4 kg) 01/12/24 127 lb 12.8 oz (58 kg) GENERAL APPEARANCE: Alert & Cooperative, Oriented X 3 HEAD: Normocephalic, without obvious abnormality, atraumatic NECK: No palpable lymphadenopathy in supraclavicular or cervical chains LUNGS: No audible rales, wheezes or crackles HEART: Regular rate and rhythm ABDOMEN: Soft, non-tender; bowel sounds normal; no masses, no organomegaly EXTREMETIES: without cyanosis, clubbing, edema or asymmetry SKIN: No jaundice, purpura or petechiae. Rash on back present. LABS: CBC: Lab Results Component Value Date/Time WBC 8.2 02/07/2024 02:45 PM WBC 15.1 (H) 06/25/2016 11:25 AM RBC 4.48 02/07/2024 02:45 PM RBC 4.83 06/25/2016 11:25 AM PLT 382 (H) 02/07/2024 02:45 PM PLT 329 06/25/2016 11:25 AM CMP: Lab Results Component Value Date NA 139 02/07/2024 K 4.6 02/07/2024 CL 104 02/07/2024 CO2 26 02/07/2024 ANIONGAP 9 02/07/2024 CALCIUM 9.3 02/07/2024 GLU 85 02/07/2024 BUN 14 02/07/2024 CREATININE 1.03 02/07/2024 ALBUMIN 4.0 02/07/2024 PROT 6.8 02/07/2024 LABBILI <0.2 (L) 02/07/2024 ALT 9 02/07/2024 AST 14 02/07/2024 GFRAFRAM 77 04/13/2021 GFRNONAFRAM 67 04/13/2021 IMAGING: All relevant images were reviewed in detail with the patient. All questions were addressed and answered in great detail. EK EKG 12 LEAD Result Date: 01/24/2024 [facility] Test Date: 2024-01-23 Pat Name: RA ROSALES Department: DEPID Room: Gender: Female Box Fabricator: Connie : 1960 Requested By: JEREMÍAS AMIN Order Number: [id number] Reading MD: Kirk Rivera Measurements Intervals [place] Rate: 64 P: VA: QRS: 25 QRSD: 82 T: 29 QT: 396 QTc: 409 Interpretive Statements Sinus RHYTHM with short VA interval Electronically Signed On 01-24-2024 14:19:35 EDT by Kirk Rivera ASSESSMENT AND PLAN: Patient is a 63 y.o. 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 Stage IV Invasive Ductal Carcinoma of Left Breast (T2N3M1, ER+, VA+, HER2-) Patient coming from [facility]. Patient reports feeling an enlarging breast lump. She is post-menopausal and has had a hysterectomy and no FMH of cancer. Left breast mass and left axilla biopsied and revealing invasive ductal carcinoma, grade 2, some DCIS as well. ER 96%, VA 73%, HER2 2+, FISH negative, lymph node [...] for faslodex monthly monotherapy if still in care home. Discussed side effects of faslodex and gave information. If out of care home- would consider faslodex and ribociclib vs AI + CDK4/6. Now out of care home mid December 2023 and so we can do CDK4/6 inhibitor ribociclib + anastrazole (AI). Hadstarted on AI prior. Discussed side effects of neutropenia, EKG/arrhythmia abnormalities, peripheral edema, alopecia, rash, electrolyte abnormalities, n/v/d, abdominal pain, other cytopenias, liver and kidney abnormalities, infection, fatigue, dizziness, headaches, arthralgias, osteoporosis buttermaker helper, fever, hot flashes, mood swings and other side effects that will be discussed in teach session with RN. To take days 1-21 and have 7 days off. Baseline Qtc 395 on 12/19/23 with sinus bradycardia and non-specific T- wave inversion- no known coronary disease she knows of. 02/07/24 update: Started ribociclib in 12/2023 and developed grade 2 diarrhea controlled with imodium. WBC 3.7, ANC of 2.3. Tolerating AI well. States had new rash develop on her back prior to starting kisqali back when she was in care home and now worsening with itching and bleeding of some lesions. EKG with Qtc of 405.Received radiation to calvarial met with Dr. Shirley on 01/12/24. Trialed steroid cream for possible rash I don't think is related to kisqali as started prior to tx while she was in care home. Diarrhea is improved since decreasing. Rash improves slightly with steroid cream but states new ones pop and painful at times, overall looks similar to me. -Continue steroid cream, derm apt in March -Continue 400 mg of kisqali (dose reduced) given grade 2 diarrhea -Continue 1 mg of anastrazole daily -Baseline bone density scan ordered today, Ca/VitD/weight bearing exercise -Follow up MRI and follow up with rad onc Dr. 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 Missed apt with GI- needs re-scheduled with Dr. Lopez 's TIRE RECAPPING MACHINE OPERATOR soon Will need their input regarding if diarrhea if Crohn's contributing to this or just all kisqali related. Will have them switch to video visit if possible given long distance. -Plan to scan in 2 months Follow up in 1 month A total of 32 minutes of the encounter was spent in performing the following complex tasks: 1) Reviewing medical records in [facility] and if applicable outside records as [...] call regarding any concerning symptoms or questions. Jeremías Amin MD Hematology/Oncology documented in this encounter Plan of Treatment Upcoming Encounters Date Type Department Care Team (Late st Contact Info) Description 09/11/2024 1:45 PM EST Office Visit [facility] [address] [place] [address] Swapnil Lopez MD [address] [place] [address] 10/21/2024 2:00 PM EST Appointment [facility] MRI [address] [place] [address] Jacky Shirley MD [address] [place] [address] [place] [address] 10/23/2024 1:45 PM EST Appointment [facility] [place] [address] Olena Darby, RUBBER GASKET INSPECTOR TRIMMER 1 [facility] [place] [address] documented as of this encounter Goals Goal Patient Goal Type Associated Problems Recent Progress Patient-Stated? Author Breast Health Breast Health Mray Kate Vázquez, RN Note: Patient acknowledges understanding of new diagnosis, plan of care, available resources and how to contact Nurse Navigator with any future questions or concerns. Maintain a healthy diet, exercise regularly and maintain an ideal body weight General No Linda Walden, RMA documented as of this encounter Results * DX BONE DENSITY AXIAL SKELETON (06/07/2024 12:52 PM EDT) Anatomical Region Laterality Modality Dexa Scan 06/07/2024 Impressions 06/07/2024 3:50 PM EDT Indication: The patient is a post-menopausal female under age 65 with clinical risk factors for an osteoporotic fracture that requires a bone density assessment. Study was performed on [employer] 5. Bone Density: Region ?BMD ? T-score [...] is established. Reported by: Arpita Trujillo PA-C, [facility] on 06/07/2024 12:58:00 PM. us Jeremías Amin MD IMG DEXA ORDERABLES Final Resu lt documented in this encounter Visit Diagnoses Diagnosis Invasive ductal carcinoma of left breast, stage 4 (HCC)- Primary Crohn's disease of both small and large intestine without complication (HCC) Regional enteritis of small intestine with large intestine Skin rash Rash and other nonspecific skin eruption Invasive ductal carcinoma of left breast, stage 4 (HCC) documented in this encounter Discontinued Medications Medication Sig Discontinue Reason Start Date End Da te triamcinolone (KENALOG) 0.1 % Top CreamIndications:Skin rash Apply topically 3 times daily. Reorder 01/23/2024 02/07/2024 diphenoxylate-atropine (LOMOTIL) 2.5-0.025 mg Oral TabletIndications:Crohn' s disease of both small and large intestine without complication (HCC) TAKE 2 TABLETS BY MOUTH FOUR TIMES DAILY NEEDED. NO MORE THAN 8 TABLETS PER DAY Reorder 01/25/2024 02/07/2024 documented as of this encounter Additional Health Concerns Assessment Noted Time PHQ-9 Depression Total Score: 13 024 1:47 PM EDT PHQ-2 Depression Total Score: 3 12/29/19 24 1:47 PM EDT documented as of this encounter Care Teams Certified Technician Relationship Specialty Start Date End Date Damaso Black MD [address] [place] [address] PCP - General Family Medicine 11/22/22 Swapnil Lopez MD [address] [place] [id number] Internal Medicine-Gastroenterology 02/16/22 Jeremías Amin MD [address] [place] [address] [place] [address] Internal Medicine-Medical Oncology 12/11/23 Mya Naranjo MD [address] [place] [address] [place] [address] Family Medicine - Hospice And Palliative Medicine 01/04/24 Ashley Ordonez APRN [address] [place] [address] [place] [address] Nurse Practitioner 01/04/24 Nicole Melendez, RN Registered Nurse 01/04/24 Aislinn Viera, RN Registered Nurse 02/07/24 documented as of this encounter
--- OUTSIDE RECORDS SUMMARY | 2024-08-15 13:50 | XMS_ITS | Encounter Summary ---
Author Organization [facility] [place] [address] Care Team Providers Care Comic Book Writer Name Role Phone Swapnil Lopez MD Unavailable [phone] Damaso Black MD Primary Care Provider [phone] Darío Rubio MD Unavailable [phone] Mya Naranjo MD Unavailable [phone] Ashley Ordonez APRN Unavailable [phone] Nicole Melendez RN Unavailable Unavailable Aislinn Viera RN Unavailable Unavailable Encounter Details Date Type Department Care Team (Latest Contact Info) Description 02/12/2024 Travel Social History Tobacco Use Types Packs/Day [...] PM EST Office Visit [facility] [address] [facility] [place] [address] Swapnil Lopez MD [address] [place] [address] 10/21/2024 2:00 PM EST Appointment [facility] MRI [address] [place] [address] Jacky Shirley MD [address] [place] [address] [place] [address] 10/23/2024 1:45 PM EST Appointment [facility] [place] [address] Olena Darby APRN [address] [place] [address] [place] [address] documented as of this encounter [...] documented as of this encounter Care Teams Comic Book Writer Relationship Specialty Start Date End Date Damaso Black MD [address] [facility] [address] [place] [place], [place] [id number] PCP - General Family Medicine 11/22/22 Swapnil Lopez MD [address] [place] [id number] Internal Medicine-Gastroenterology 02/16/22 Darío Rubio MD [address] [facility] [place] [address] Internal Medicine-Medical Oncology 12/11/23 Mya Naranjo MD [address] [facility] [place] [address] Family Medicine - Hospice And Palliative Medicine 01/04/24 Ashley Ordonez APRN [address] [facility] [place] [address] Nurse Practitioner 01/04/24 Nicole Melendez, RN Registered Nurse 01/04/24 Aislinn Viera, ANGE Registered Nurse 02/07/24 documented as of this encounter
--- OUTSIDE RECORDS SUMMARY | 2024-08-15 13:50 | XMS_ITS | Encounter Summary ---
Author Organization [place] [address] Care Team Providers Care Aged Or Disabled Care Worker Name Role Phone Swapnil Lopez MD Unavailable [phone] Damaso Black MD Primary Care Provider [phone] Darío Rubio MD Unavailable [phone] Mya Naranjo MD Unavailable [phone] Ashley Ordonez APRN Unavailable [phone] Nicole Melendez RN Unavailable Unavailable Reason for Visit * Reason Comments Follow-up Encounter Details Date Type Department Care Team (Latest Contact Info) Description 01/23/2024 12:59 PM EDT - 01/23/2024 11:59 PM EDT Hospital Encounter [facility] [address] x4 Jacky Shirley MD 1 [facility] [place] [address] Ashley Ordonez APRN [address] [place] [address] Armando Vieira MSW Palliative care by specialist [...] Sign Reading Time Taken Comments Blood Pressure 113/82 01/23/2024 1:13 PM EDT Pulse 70 01/23/2024 1:13 PM EDT Temperature 36.2 ??C (97.2 ??F) 01/23/2024 1:13 PM ED T Respiratory Rate 18 01/23/2024 1:13 PM EDT Oxygen Saturation 91% 01/23/2024 1:13 PM EDT Inhaled Oxygen Concentration - - Weight - - Height - - Body Mass Index - - documented in this encounter Functional Status * [...] documented in this encounter Progress Notes * MeryAshleyn, TORCH STRAIGHTENER - 01/23/2024 1:00 PM EDT PALLIATIVE CARE SERVICES OUTPATIENT CLINIC PROGRESS NOTE NAME: Marleni Way DATE OF : 1960 DATE OF SERVICE: 01/23/2024 HPI 63 yo with 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 Treatment delayed by recent 6 month incarceration, but she is now back home. 43 year hx of Crohn's/ multiple GI surgeries/rectal fistula appt 01/[address] Fry. Chronic pain related to Crohn's, sees [facility] Irene MCADAMS. 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 She has been doing well and has no complaints today. ASSESSMENT Cancer related pain: complicated by chronic pain due to Crohn's disease. -continue current pain regimen of Tramadol 50 mg x2 tabs every 4 hours as needed MAX 6 tabs/day (#180; 01/23/24 with prior auth) plan would be to transition back to Dr Rankin when able; She has been taking around 6 tabs daily so will order that today Naloxone ordered previously Opioid induced Constipation: none, has Lomotil for Crohn's and this helps Mood: Last PHQ-9=13; Last IRMA-7=11; will monitor Nausea: denies; has Zofran and Phenergan as needed Appetite/weight loss: 126# today (141# recorded at last visit, but she says she has never weighed this much); states lost weight during incarceration, gaining weight back while at home; She tells me her weight is normally in the 120's. Advance Care Planning: completed previously Goals of Care: complete cancer treatments, return to work, keep Crohn's stable Psychosocial distress: recent incarceration, legal issues, financial insecurity see [facility] SW notes Spiritual distress: no needs identified today Follow up in 4 weeks; coordinate with Dr Rubio visit Safety: ORT [...] 11/10/2017 Crohn's disease of colon with complication (HCC) 11/10/2017 Laceration of left great toe without foreign body present or damage to nail 11/10/2017 Anxiety and depression 07/25/2017 Food impaction of esophagus 06/25/2016 Exacerbation of Crohn's disease (HCC) 04/02/2015 Alcoholism (HCC) Crohn's History of stomach cancer Depression ONCOLOGY [...] tablets of Tramadol 50 tabs a day and feels that this regimen is stable for treatingboth kinds of pain for now. She does not wish to increase meds at this time. 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, 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 [employer], recent 6 month incarceration states she was wrongfully accused and is suing Spiritual/Oriental Orthodox No needs identified today REVIEW OF SYSTEMS [...] she tested COVID positive on 02/12/21 @ [facility], instructed pt to notify Dr Lantigua's office to reschedule surgery Past Surgical History: Procedure Laterality Date ANTERIOR COMPARTMENT DECOMPRESSION Left 04/15/2021 LEFT DEQUERVAINS RELEASE ; Surgeon: Henry Lantigua MD; Location: [facility]; Service: Hand BREAST BIOPSY Left 10/26/2023 2:00 BREAST BIOPSY Left 10/26/2023 axilla node SECTION x2 COLON SURGERY x11 crohns COLONOSCOPY COLOSTOMY ILEOSTOMY OR JEJUNOSTOMY UPPER GASTROINTESTINAL ENDOSCOPY N/A 06/25/2016 ESOPHAGOGASTRODUODENOSCOPY with biopsy with conscious sedation; Surgeon: Christopher Matthews MD PHD; Location: [facility]; Service: Endoscopy Family History Problem Relation [...] THAN 8 TABLETS PER DAY 240 Tablet 3 loperamide (IMODIUM) 2 mg Oral Capsule TAKE 1 CAPSULE BY MOUTH EVERY 3 HOURS 200 Capsule 0 predniSONE (DELTASONE) 10 mg Oral Tablet Take 1 Tablet by mouth daily. 112 Tablet 1 promethazine (PHENERGAN) 25 mg Oral Tablet Take 1 Tablet by mouth every 4 hours as needed for Nausea or Vomiting for up to 30 days. 25mg every 4-6 hours as needed 30 Tablet 3 ribociclib (KISQALI) 600 mg/day (200 mg x 3) Oral Tablet Take 3 tablets (600 mg) by mouth once daily with or without food for 21 days, followed by 7 days off. 63 Tablet 0 traMADoL (ULTRAM) 50 mg Oral Tablet Take 2 Tablets by mouth every 6 hours as needed for Pain for upto 7 days. MAX of 8 tablets per day 56 Tablet 0 No current facility-administered medications for this visit. Allergies Allergen Reactions Jdemw-Bpbzu-3-Bcf-Ejj-Mialpk Hives Sulfa (Sulfonamide Antibiotics) PHYSICAL EXAMINATION General: Seamus appears alert, in no acute distress Head: normocephalic and atraumatic Neck: supple, midline trachea Lungs: non-labored breathing, symmetrical chest expansion Heart: regular rate and rhythm, no edema Abdomen: not distended Skin: warm, dry Neurological: alert and oriented Psych: calm, pleasant, appropriate affect Ashley Ordonez APRN, [facility] I spent 40 minutes today, preparing to see the patient, review and documentation, as well as time spent with the patient, evaluation and treatment. * Armando Vieira MSW - 01/23/2024 1:00 PM EDT Palliative Care Outpatient Clinic - Social Work Follow-up Progress Note Reason For Consult/Following For: Symptom management, psychosocial support Con[facility]. Naranjo / Clinic Summary Of Visit: (Pt narrative including: GOC/limitations/Psychosocial factors/risk factors/ACP/end of life planning/legacy work) Suggestions/Plans/Referrals: grab jack worker will continue to assess and address identified or reported psychosocial/spiritual/ distress or impairment 2. Continue building therapeutic alliance/rapport with patient in order to support their goals of care; request copy of ACP documents 3. Conduct financial/general needs assessment each visit; will provide linkage to identified resources and care 4. Follow up q for continued support PHQ-9/IRMA-7- Last completed: PHQ recommendation: 0-4 Minimal: No intervention 5-9 Mild: Repeat PHQ-9 at follow-up 10-14 Moderate: Make treatment plan - consider counseling, follow-up and/or pharmacotherapy 15-19 Moderate Severe: Active treatment with pharmacotherapy and/or psychotherapy 20-27 Severe: Prescribe - Immediate initiation of pharmacotherapy and, if severe impairment or poorresponse to therapy, expedited referral to a mental health specialist for psychotherapy and/or collaborative management. IRMA recommendation: 0-4 Minimal: No follow-up is warranted at this time. 5-9 Mild: It is recommended to monitor symptoms and follow-up as indicated. 10-14 Moderate: This individual is likely to be diagnosed with an anxiety or related disorder. Repeat administration of the IRMA-7 every 4 weeks to monitor symptoms. Follow up to determine if current symptoms warrant a referral to a mental health professional. 15-21 Severe: This individual???s symptoms of anxiety likely warrant active treatment. This individual is likely to be diagnosed with an anxiety or related disorder. Further assessment (including diagnostic interview and mental status examination) and/or referral to a mental health professional is recommended. UDS- Last Completed: Results: Recommendation: Repeat upon provider's request Psychosocial Acuity: Normal Moderate Extreme ITA Smith, ELECTRICAL ELECTRONICS TECHNICIAN Palliative Care Laborer [facility] [phone] * Armando Vieira MSW - 01/23/2024 1:00 PM EDT Palliative Care Outpatient Clinic - Social Work Follow-up Progress Note This note was not released electronically to the patient for the following reason(s): the note contains a sensitive social service issue Reason For Consult/Following For: Symptom management, psychosocial support Conversation [facility]urred With/[facility]; Trinh Bullock APRN / Clinic Summary Of Visit: Marleni Sy ( Seamus ) is a 63-year-old female with PMH notable for left breast cancer with metsto left frontal bone (dx 2023). Treatment was delayed for six months due to incarceration. Reports she was released three weeks ago. Comorbid issues, namely Chron's and multiple GI surgeries. See Dr. Naranjo's note for important details. [facility] [place] met with Seamus in clinic for regular follow up. She presents with broad, anxious and energetic affect congruent with mood. She reports recent increasein goal-directed activity (is currently on steroid), citing staying busy with spring cleaning projects. Reports insurance snafu has been resolved and that they are now covering chemotherapy treatment. She appears to be coping okay. Shares she is excited for her son Eloy's career prospects, that he hopes to enroll in wire winder training. For now, she is satisfied with living arrangement (lives in [place]) but wants to return to [facility] in the future. She plans to return to [facility] this year. Will continue to build trust and rapport with her to explore recovery environment and her plan to cope with potential triggers, as she was guarded about alcohol use at initial consult. No serious concerns at this time. Will continue to follow along for emotional/psyc hosocial support. Suggestions/Plans/Referrals: grab jack worker will continue to assess and address identified or reported psychosocial/spiritual/ distress or impairment; encourage ongoing therapy with ongoing rapport/trust 2. Continue building therapeutic alliance/rapport with patient in order to support their goals of care; 3. Conduct financial/general needs assessment each visit; will provide linkage to identified resources and care 4. Follow up 8 weeks/PRN for continued support PHQ-9/IRMA-7- Last completed: IRMA-7 Total Score: 11 (12/29/2023 1:00 PM) PHQ-9 Total Score: 13 (12/29/2023 1:47 PM) PHQ recommendation: 10-14 Moderate: Make treatment plan - consider counseling, follow-up and/or pharmacotherapy IRMA recommendation: 10-14 Moderate: This individual is likely to be diagnosed with an anxiety or related disorder. Repeat administration of the IRMA-7 every 4 weeks to monitor symptoms. Follow up to determine if current symptoms warrant a referral to a mental health professional. UDS- Last Completed: 12/29/23 Results: see report Recommendation: Repeat upon provider's request Psychosocial Acuity: Moderate ITA Smith, ELECTRICAL ELECTRONICS TECHNICIAN Palliative Care Lab[facility] [phone] documented in this encounter Miscellaneous Notes * Addendum Note - Armando Vieira MSW - 01/23/2024 1:00 PM EDTEncounter addended by: Armando Vieira MSW on: 01/23/2024 4:31 PM Actions taken: Clinical Note Signed documented in this encounter Plan of Treatment Upcoming Encounters Date Type Department Care Team (Late st Contact Info) Description 09/11/2024 1:45 PM EST Office Visit [facility] [address] [facility] [place] [address] Swapnil Lopez MD [address] [place] [address] 10/21/2024 2:00 PM EST Appointment [facility] MRI [address] [address] Jacky Shirley MD [address] [place] [address] [place], [place] [id number] 10/23/2024 1:45 PM EST Appointment [facility] [address] [place], [place] [id number] Olena Darby APRN [address] [place] [address] [place], [place] [id number] documented as of this encounter Goals Goal [...] documented as of this encounter Care Teams Aged Or Disabled Care Worker Relationship Specialty Start Date End Date Damaso Black MD [address] [place] [address] PCP - General Family Medicine 11/22/22 Swapnil Lopez MD [address] [place] [id number] Internal Medicine-Gastroenterology 02/16/22 Darío Rubio MD [address] [place] [address] [place] [address] Internal Medicine-Medical Oncology 12/11/23 Mya Naranjo MD [address] [place] [address] [place] [address] Family Medicine - Hospice And Palliative Medicine 01/04/24 Ashley Ordonez APRN [address] [place] [address] [place] [address] Nurse Practitioner 01/04/24 Nicole Melendez, RN Registered Nurse 01/04/24 documented as of this encounter
--- OUTSIDE RECORDS SUMMARY | 2024-08-15 13:50 | XMS_ITS | Encounter Summary ---
Author Organization [place] [address] Care Team Providers Care Traveler Changer Name Role Phone Swapnil Lopez MD Unavailable [phone] Damaso Black MD Primary Care Provider [phone] Darío Rubio MD Unavailable [phone] Mya Naranjo MD Unavailable [phone] Ashley Ordonez APRN Unavailable [phone] Nicole Melendez RN Unavailable Unavailable Aislinn Viera RN Unavailable Unavailable Reason for Referral * Consultation (Routine) - Closed Specialty Diagnoses / Procedures Referred By Contac t Referred To Contact Oncology Diagnoses Invasive ductal carcinoma of breast, left (HCC) Secondary malignant neoplasm of bone (HCC) Darío Rubio MD [address] [place] [address] Phone: tel: fax: [place] [address] Phone: tel: Referral ID Status Reason Start Date Expiration Date Visits Re quested Visits Authorized [id number] Closed 02/09/2024 02/08/2025 1 1 Question Answer Reason for referral? Wig fitting Patient Status In Treatment Comments Pt interested in obtaining a wig, and also any assistance with nutritional drinks if possible Encounter Details Date Type Department Care Team (Late st Contact Info) Description 02/09/2024 Social Work [facility] Cancer Care [facility] [place] [address] Trinh Flor MSW Social History Tobacco Use Types Packs/Day Years [...] documented in this encounter Progress Notes * Trinh Flor MSW - 02/09/2024 3:50 PM EDT 02/09/24 [id number] Smt Technician Assessment Referred By Pt phone call Disease/[place] [facility] Casket Coverer Assignment Breast cancer Identified Needs Adjustment to illness;Education/Information;Other (Comment) Social Work Interventions Integrative Onc Service Referral;Education/Information Additional Comments/Recommendations Pt stated need for nutritional drinks (Boost/Ensure) and assistance obtaining a wig APPAREL EMBROIDERY DIGITIZER placed referral to IO for nutritional supplement and assistance obtaining a wig. Pt denied any further needs at this time. LUCIAN [facility] Outpatient Social Work [facility] documented in this encounter Plan of Treatment Upcoming Encounters Date Type Department Care Team (Late st Contact Info) Description 09/11/2024 1:45 PM EST Office Visit [facility] [address] [place] [facility] [place] [place] [address] Swapnil Lopez MD [address] [place] [address] 10/21/2024 2:[address] 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) Ordered: 02/09/2024 documented as of this encounter Goals Goal [...] documented as of this encounter Care Teams Traveler Changer Relationship Specialty Start Date End Date Damaso Black MD [address] [place] [place], [place] [id number] PCP - General Family Medicine 11/22/22 Swapnil Lopez MD [address] [place] [phone] Internal Medicine-Gastroenterology 02/16/22 Darío Rubio MD [address] [facility] [place] [address] Internal Medicine-Medical Oncology 12/11/23 Mya Naranjo MD [address] [facility] [place] [address] Family Medicine - Hospice And Palliative Medicine 01/04/24 Ashley Ordonez APRN [address] [facility] [place] [address] Nurse Practitioner 01/04/24 Nicole Melendez, RN Registered Nurse 01/04/24 Aislinn Viera, ANGE Registered Nurse 02/07/24 documented as of this encounter
--- OUTSIDE RECORDS SUMMARY | 2024-08-15 13:50 | XMS_ITS | Encounter Summary ---
Author Organization [facility] Address [address] [place] [address] Care Team Providers Care Powder Monkey Name Role Phone Swapnil Lopez MD Unavailable [phone] Damaso Black MD Primary Care Provider [phone] Darío Rubio MD Unavailable Mya Naranjo MD Unavailable [phone] Ashley Ordonez APRN Unavailable [phone] Nicole Melendez RN Unavailable Unavailable Reason for Visit * Reason Onset Date Comments Appointment Needed 01/26/2024 Patient needs appointment -see note Encounter Details Date Type Department Care Team (Late st Contact Info) Description 01/26/2024 Telephone [facility] [address] [place] [address] Swapnil Lopez MD [address] [place] [address] Appointment Needed (Patient needs appointment -see note) Social History Tobacco Use Types Packs/Day Years [...] Author No 09/05/2017 11:13 AM EST Gabby Mecredes RMA * Because of a physical, mental [...] encounter Miscellaneous Notes * Telephone Encounter - Tracie Quinones, Clerical Staff - 01/26/2024 10:[address] Lopez - diarrhea and Crohn's. Patient needs an appointment okay to use 11:00 am spot. Called patient and lm on documented in this encounter Plan of Treatment Upcoming Encounters Date Type Department Care Team (Late st Contact Info) Description 09/11/2024 1:45 PM EST Office Visit [facility] [address] [place] [address] Swapnil Lopez MD [address] [place] [address] 10/21/2024 2:[address] [facility] MRI [address] [address] Jacky Shirley MD 1 [facility] [place], [place] [id number] 10/23/2024 1:45 PM EST Appointment [facility] [address] [place], [place] [phone] Olena Darby APRN [address] [facility] [place], [place] [id number] documented as of this encounter Goals Goal [...] documented as of this encounter Care Teams Powder Monkey Relationship Specialty Start Date End Date Damaso Black MD [address] [place] [address] PCP - General Family Medicine 11/22/22 Swapnil Lopez MD [address] [place] [phone] Internal Medicine-Gastroenterology 02/16/22 Darío Rubio MD [address] [place] [address] Internal Medicine-Medical Oncology 12/11/23 Mya Naranjo MD [address] [facility] [place] [address] Family Medicine - Hospice And Palliative Medicine 01/04/24 Ashley Ordonez APRN [address] [facility] [place] [address] Nurse Practitioner 01/04/24 Nicole Melendez, RN Registered Nurse 01/04/24 documented as of this encounter
--- OUTSIDE RECORDS SUMMARY | 2024-08-15 13:50 | XMS_ITS | Encounter Summary ---
Author Organization [place] [address] Care Team Providers Care Reproductive Endocrinologist Name Role Phone Swapnil Lopez MD Unavailable [phone] Damaso Black MD Primary Care Provider [phone] Darío Rubio MD Unavailable [phone] Mya Naranjo MD Unavailable [phone] Ashley Ordonez APRN Unavailable [phone] Nicole Melendez RN Unavailable Unavailable Aislinn Viera RN Unavailable Unavailable Reason for Visit * Reason Comments Follow-up Encounter Details Date Type Department Care Team (Latest Contact Info) Description 02/20/2024 11:04 AM EDT - 02/20/2024 11:59 PM EDT Hospital Encounter [facility] [place] [address] x4 Jacky Shirley MD 1 [facility] [address] Ashley Ordonez APRN [address] [place] [address] Palliative care by specialist (Primary Dx); Cancer [...] this encounter Progress Notes * Ashley Ordonez, METAL STORAGE WORKER - 02/20/2024 11:30 AM EDT PALLIATIVE CARE SERVICES OUTPATIENT CLINIC PROGRESS NOTE NAME: Marleni Way DATE OF : 1960 DATE OF SERVICE: 02/20/2024 Patient presented today for routine care follow-up through a video visit. Patient has reviewed the terms and conditions of service as part of the registration for today's visit. A video visit does not replace a hdej-at-jbqg exam and further services may be necessary. We are conducting her video visit in a private space and this video visit is being conducted in accordance with state telehealth/video visit regulations. HPI 63 y/o with 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 Treatment delayed by remote 6 month incarceration, but she is now back home. 43 year hx of Crohn's/multiple GI surgeries/rectal fistula appt 01/[address] Fry. Chronic pain related to Crohn's, sees [facility] Irene MCADAMS. Neuro consult cancelled as blackouts ceased. She has been doing well and has no complaints today. ASSESSMENT Cancer related pain: complicated by chronic pain due to Crohn's disease. -continue current pain regimen of Tramadol 50 mg x2 tabs every 4 hours as needed MAX 6 tabs/day (#180; 02/22/24) plan would be to transition back to Dr Rankin when able Naloxone ordered previously Opioid induced Constipation: none, has Lomotil for Crohn's and this helps Mood: Last PHQ-9=13; Last IRMA-7=11; no change in moods; will monitor Nausea: denies; has Zofran and Phenergan as needed (Phenergan helps the best) Appetite/weight loss: 126# at last in-person visit; [...] wish to increase meds at this time. Pain today is high andshe tells me her whole body aches. She tells me that the Tramadol keeps her functional. Dyspnea: denies Anorexia/weight loss: 126# at last in-person visit; She is around her baseline weight Nausea/vomiting: denies nausea; has Zofran and Phenergan if needed Constipation/diarrhea: +Crohn's disease; has Lomotil as needed for frequent diarrhea and this helps Fatigue and sleep/wake disturbances: chronically does not sleep okay; per notes she takes Melatonin; denies excessive fatigue (does not ever take naps) Other: states had black out spells, but they stopped so Neuro consult was cancelled Emotional/Psychological Depression/demoralization/despair: Last PHQ-9=13; no change in mood Anxiety: Last IRMA-7=11; no heightened anxiety Family/Social/Interpersonal , 1 son, lives with her parents on a farm, [email or web address], recent 6 month incarceration states she was wrongfully accused and is in litigation currently. Spiritual/Voodoo No needs identified today REVIEW OF SYSTEMS [...] she tested COVID positive on 02/12/21 @ [facility], instructed pt to notify Dr Lantigua's office to reschedule surgery Past Surgical History: Procedure Laterality Date ANTERIOR COMPARTMENT DECOMPRESSION Left 04/15/2021 LEFT DEQUERVAINS RELEASE ; Surgeon: Henry Lantigua MD; [facility]; Service: Hand BREAST BIOPSY Left 10/26/2023 2:00 BREAST BIOPSY Left 10/26/2023 axilla node SECTION x2 COLON SURGERY x11 crohns COLONOSCOPY COLOSTOMY ILEOSTOMY OR JEJUNOSTOMY UPPER GASTROINTESTINAL ENDOSCOPY N/A 06/25/2016 ESOPHAGOGASTRODUODENOSCOPY with biopsy with conscious sedation; Surgeon: Christopher Matthews MD PHD; Location: [facility]; Service: Endoscopy Family History Problem Relation [...] 8 TABLETS PER DAY 60 Tablet 1 loperamide (IMODIUM) 2 mg Oral Capsule Take [...] every 4 hours as needed for Pain. MAXOF 6 TABLETS PER DAY 180 Tablet 0 triamcinolone (KENALOG) 0.1 % Top Cream Apply topically 3 times daily. 80 g 0 No current facility-administered medications for this visit. Allergies Allergen Reactions Thbjl-Bufei-8-Xwk-Vvk-Xgyrrc Hives Sulfa (Sulfonamide Antibiotics) PHYSICAL EXAMINATION Telehealth visit General: Seamus appears alert, in no acute distress Lungs: non-labored breathing Neurological: alert and oriented Psych: calm, pleasant, appropriate affect Ashley Ordonez APRN, ACHPN I spent 56 minutes today, preparing to see the patient, review and documentation, as well as time spent with the patient, evaluation and treatment. documented in this encounter Plan of Treatment Upcoming Encounters Date Type Department Care Team (Late st Contact Info) Description 09/11/2024 1:45 PM EST Office Visit [facility] [address] [place] [facility] [place] [address] Swapnil Lopez MD [address] [place] [address] 10/21/2024 2:00 PM EST Appointment [facility] MRI [address] [place] [address] Jacky Shirley MD [address] [place] [address] 10/23/2024 1:45 PM EST Appointment [facility] [place] [address] Olena Darby APRN [address] [place] [address] documented as of this encounter Goals [...] tract location (HCC) documented in this encounter Additional Health Concerns Assessment Noted Time PHQ-9 Depression Total Score: 13 024 1:47 PM EDT PHQ-2 Depression Total Score: 3 12/29/19 24 1:47 PM EDT documented as of this encounter Care Teams Reproductive Endocrinologist Relationship Specialty Start Date End Date Damaso Black MD 100[address] [facility] [address] [place] [address] PCP - General Family Medicine 11/22/22 Swapnil Lopez MD [address] [place] [address] Internal Medicine-Gastroenterology 02/16/22 Darío Rubio MD [address] [facility] [place] [address] Internal Medicine-Medical Oncology 12/11/23 Mya Naranjo MD [address] [facility] [place] [address] Family Medicine - Hospice And Palliative Medicine 01/04/24 Ashley Ordonez APRN [address] [facility] [place] [address] Nurse Practitioner 01/04/24 Nicole Melendez, RN Registered Nurse 01/04/24 Aislinn Viera, ANGE Registered Nurse 02/07/24 documented as of this encounter
--- OUTSIDE RECORDS SUMMARY | 2024-08-15 13:50 | XMS_ITS | Encounter Summary ---
Author [place] [address] Care Team Providers Care Sports Cartoonist Name Role Phone Swapnil Lopez MD Unavailable [phone] Damaso Black MD Primary Care Provider [phone] Darío Rubio MD Unavailable [phone] Mya Naranjo MD Unavailable [phone] Ashley Ordonez APRN Unavailable [phone] Nicole Melendez RN Unavailable Unavailable Reason for Visit * Reason Comments Pharmacy Oncology Management ribociclib Encounter Details Date Type Department Care Team (Latest Contact Info) Description 01/30/2024 Specialty Pharmacy [facility] [address] [place] [address] Ivory Mesa, [facility] Pharmacy Oncology Management (ribociclib) Social History Tobacco Use Types Packs/Day Years [...] documented in this encounter Progress Notes * Ivory Mesa RPH - 01/30/2024 10:57 AM EDT Specialty Pharmacy Refill Coordination Note Contacted Marleni Way today regarding refills of ribociclib. Medication to be picked up on 02/07/2024 at [facility]. Copay amount: $0 Spoke with patient. Patient informed of copay. Ally Mesa, PharmD, [facility], OP Oncology Pharmacist 01/30/2024 10:58 AM documented in this encounter Plan of Treatment Upcoming Encounters Date Type Department Care Team (Late st Contact Info) Description 09/11/2024 1:45 PM EST Office Visit [facility] [address] [facility] [place] [address] Swapnil Lopez MD [address] [place] [address] 10/21/2024 2:[address] [facility] MRI [address] [place] [address] Jacky Shirley MD [address] [facility] [place] [address] 10/23/2024 1:45 PM EST Appointment [facility] [address] [place], [place] [id number] Olena Darby, YON 1 [facility]CER C[facility] [place], [place] [id number] documented as of this encounter Goals Goal [...] documented as of this encounter Care Teams Sports Cartoonist Relationship Specialty Start Date End Date Damaso Black MD [address] [place] [address] PCP - General Family Medicine 11/22/22 Swapnil Lopez MD [address] [place] [address] Internal Medicine-Gastroenterology 02/16/22 Darío Rubio MD [address] [facility] [place] [address] Internal Medicine-Medical Oncology 12/11/23 Mya Naranjo MD [address] [facility] [place] [address] Family Medicine - Hospice And Palliative Medicine 01/04/24 Ashley Ordonez APRN [address] [facility] [place] [address] Nurse Practitioner 01/04/24 Nicole Melendez, RN Registered Nurse 01/04/24 documented as of this encounter
--- OUTSIDE RECORDS SUMMARY | 2024-08-15 13:50 | XMS_ITS | Encounter Summary ---
Author Organization [place] [address] Care Team Providers Care Field Support Engineer Name Role Phone Swapnil Lopez MD Unavailable [phone] Damaso Black MD Primary Care Provider [phone] Darío Rubio MD Unavailable [phone] Mya Naranjo MD Unavailable [phone] Ashley Ordonez APRN Unavailable [phone] Nicole Melendez RN Unavailable Unavailable Aislinn Viera RN Unavailable Unavailable Encounter Details Date Type Department Care Team (Late st Contact Info) Description 02/12/2024 Telephone [facility] [place] [id number] Pat Bahena, Clerical Staff Social History Tobacco Use Types Packs/Day Years [...] Miscellaneous Notes * Telephone Encounter - Pat Bahena, Clerical Staff - 03/04/2024 10:09 AM EDT [employer] message sent. * Telephone Encounter - Pat Bahena Clerical Staff - 02/22/2024 1:47 PM EDT LVM regarding Integrative Oncology referral. * Telephone Encounter - Pat Bahena Clerical Staff - 02/12/2024 2:32 PM EDT LVM regarding Integrative Oncology referral. documented in this encounter Plan of Treatment Upcoming Encounters Date Type Department Care Team (Late st Contact Info) Description 09/11/2024 1:45 PM EST Office Visit [facility] [address] [facility] [place] [address] Swapnil Lopez MD [address] [place] [address] 10/21/2024 2:00 PM EST Appointment [facility] MRI [address] [place], [place] [id number] Jacky Shirley MD [address] [place] [address] [place] [address] 10/23/2024 1:45 PM EST Appointment [facility] [place] [address] Olena Darby APRN [address] [place] [address] [place] [address] documented as of this encounter [...] documented as of this encounter Care Teams Field Support Engineer Relationship Specialty Start Date End Date Damaso Black MD 1005 [facility] [address] [place] [address] PCP - General Family Medicine 11/22/22 Swapnil Lopez MD [address] [place] [address] Internal Medicine-Gastroenterology 02/16/22 Darío Rubio MD [address] [facility] [place] [address] Internal Medicine-Medical Oncology 12/11/23 Mya Naranjo MD [address] [facility] [place] [address] Family Medicine - Hospice And Palliative Medicine 01/04/24 Ashley Ordonez APRN [address] [facility] [place] [address] Nurse Practitioner 01/04/24 Nicole Melendez, RN Registered Nurse 01/04/24 Aislinn Viera, ANGE Registered Nurse 02/07/24 documented as of this encounter
--- OUTSIDE RECORDS SUMMARY | 2024-08-15 13:50 | XMS_ITS | Encounter Summary ---
Author Organization [place] [address] Care Team Providers Care Metal Furniture Assembler Name Role Phone Swapnil Lopez MD Unavailable [phone] Damaso Black MD Primary Care Provider [phone] Darío Rubio MD Unavailable [phone] Mya Naranjo MD Unavailable [phone] Ashley Ordonez APRN Unavailable [phone] Nicole Melendez RN Unavailable Unavailable Reason for Visit * Reason Comments Pharmacy Oncology Management ribociclib Encounter Details Date Type Department Care Team (Latest Contact Info) Description 01/23/2024 Specialty Pharmacy [facility] [address] [place] [address] Ivory Mesa, [facility] Pharmacy Oncology Management (ribociclib) Social History Tobacco [...] Progress Notes * Ivory Mesa RPH - 01/23/2024 2:44 PM EDT [facility] Patient due for 14 day RA for ribociclib. Per chart review patient reported severe diarrhea on 01/22/2024 and was instructed to hold medication. Patient presented for follow up today complaining of rash on back and Grade 2 diarrhea. Triamcinolone cream prescribed for rash and dermatology referral placed. Continue loperamide and Lomotil for diarrhea and follow up with GI for Crohn's management. Ribociclib dose reduced to 400 mg daily starting on 01/24/2024. Patient to take to complete 21 day course of Cycle 1 then take 7 day break. Will plan to follow up with patient in ~1 week for tolerance RA and refill coordination. Updated prescription received and on file. Ally Mesa, PharmD, BCPS, OP Oncology Pharmacist 01/23/2024 2:45 PM * Damaso Santos RPH - 01/23/2024 2:44 PM EDT [facility] Prescription received for Kisqali (400mg). Prescription does not require a prior authorization. Placed prescription on hold. documented in this encounter Plan of Treatment Upcoming Encounters Date Type Department Care Team (Late st Contact Info) Description 09/11/2024 1:45 PM EST Office Visit [facility] [address] [place] [facility] [address] Swapnil Lopez MD [address] [address] 10/21/2024 2:00 PM EST Appointment [facility] MRI [address] [place] [address] Jacky Shirley MD [address] [place] [address] [place], [place] [id number] 10/23/2024 1:45 PM EST Appointment [facility] [place] [address] Olena Darby APRN [address] [place] [address] [place], [place] [phone] documented as of this encounter Goals Goal Patient Goal Type Associated Problems Recent Progress Patient-Stated? Author Breast Health Breast Health Mary Ktae Vázquez, RN Note: Patient acknowledges understanding of [...] as of this encounter Care Teams Metal Furniture Assembler Relationship Specialty Start Date End Date Damaso Black MD 100[address] [facility] [address] [place] [address] PCP - General Family Medicine 11/22/22 Swapnil Lopez MD [address] [place] [address] Internal Medicine-Gastroenterology 02/16/22 Darío Rubio MD [address] [place] [address] [place] [address] Internal Medicine-Medical Oncology 12/11/23 Mya Naranjo MD [address] [place] [address] [place] [address] Family Medicine - Hospice And Palliative Medicine 01/04/24 Ashley Ordonez APRN [address] [facility] [place] [address] Nurse Practitioner 01/04/24 Nicole Melendez, RN Registered Nurse 01/04/24 documented as of this encounter
--- OUTSIDE RECORDS SUMMARY | 2024-08-15 13:50 | XMS_ITS | Encounter Summary ---
Author Organization [place] [address] Care Team Providers Care Assistant Portfolio Manager Name Role Phone Swapnil Lopez MD Unavailable [phone] Damaso Black MD Primary Care Provider [phone] Darío Rubio MD Unavailable [phone] Mya Naranjo MD Unavailable [phone] Ashley Ordonez APRN Unavailable [phone] Nicole Melendez RN Unavailable Unavailable Aislinn Viera RN Unavailable Unavailable Encounter Details Date Type Department Care Team (Latest Contact Info) Description 02/07/2024 2:39 PM EDT - 02/07/2024 2:45 PM EDT Hospital Encounter [facility] [place] [id number] Jacky Shirley MD [address] [place] [address] [place] [address] Invasive ductal carcinoma of breast, left (HCC) [...] Tablet Take 4 mg by mouth. 04/25/2022 loperamide (IMODIUM) 2 mg Oral CapsuleIndication s:Diarrhea, unspecified type Take 1 Capsule by mouth every 3 hours. 200 Capsule 01/24/2024 05/22/2024 documented as of this encounter Discharge Disposition Disposition Code Departure Means Destination Home or Self Care documented in this encounter Plan of Treatment Upcoming Encounters Date Type Department Care Team (Late st Contact Info) Description 09/11/2024 1:45 PM EST Office Visit [facility] [address] [place] [address] Swapnil Lopez MD [address] [place] [address] 10/21/2024 2:00 PM EST Appointment [facility] MRI [address] [address] Jacky Shirley MD 1 [facility] CANCER CARE [place], [place] [id number] 10/23/2024 1:45 PM EST Appointment [facility] ON[facility] [address] [place], [place] [phone] Olena Darby APRN [address] [place] [address] [place], [place] [id number] documented as of this encounter Goals Goal Patient Goal Type Associated Problems Recent Progress Patient-Stated? Author Breast [facility] Breast Health Mary Kate Vázquez, RN [...] Associated Diagnosis Comments CBC WITH DIFF Routine 02/07/2024 2:45 PM EDT Invasive ductal carcinoma of breast, left (HCC) COMPREHENSIVE METABOLIC PANEL Routine 02/07/2024 2:45 PM EDT Invasive ductal carcinoma of breast, left (HCC) documented in this encounter Results * (ABNORMAL) COMPREHENSIVE METABOLIC PANEL (02/07/2024 2:45 PM EDT) Sodium 139 136 - 145 mmol/L 02/07/2024 3:13 PM EDT [facility] Potassium 4.6 3.5 - 5.0 mmol/L 02/07/2024 3:13 PM EDT [facility] Chloride 104 98 - 107 mmol/L 02/07/2024 3:13 PM EDT [facility] Total CO2 26 22 - 29 mmol/L 02/07/2024 3:13 PM EDT [facility] Anion Gap 9 7 - 16 mmol/L 02/07/2024 3:13 PM EDT [facility] Calcium 9.3 8.8 - 10.4 mg/dL 02/07/2024 3:13 PM EDT [facility] Glucose Lvl 85 70 - 99 mg/dL 02/07/2024 3:13 PM EDT [facility] BUN 14 8 - 23 mg/dL 02/07/2024 3:13 PM EDT [facility] Creatinine 1.03 0.51 - 1.30 mg/dL 02/07/2024 3:13 PM EDT [facility] Albumin 4.0 3.2 - 4.6 gm/dL 02/07/2024 3:13 PM EDT [facility] Total Protein 6.8 6.4 - 8.3 gm/dL 02/07/2024 3:13 PM EDT [facility] Bili Total <0.2(L) 0.2 - 1.3 mg/dL 02/07/2024 3:13 PM EDT [facility] ALT 9 <=41 U/L 02/07/2024 3:13 PM EDT [facility] AST 14 <=40 U/L 02/07/2024 3:13 PM EDT [facility] Alk Phos 135(H) 36 - 123 U/L 02/07/2024 3:13 PM EDT [facility] eGFR (CKD-EPIcr 2020) 61 >=60 mL/min/1.7 3 m2 02/07/2024 3:13 PM EDT [facility] Comment:Estimated GFR was ca lculated using the CKD-EPIcr (2020) equation refit without race. The equation is recommended by the National Kidney Foundation - [place] [employer] of Nephrology Task Force. Blood VENOUS BLOOD / Unknown Venipuncture / Unknown 02/07/2024 2:45 PM EDT 02/07/2024 2:45 PM EDT us Darío Rubio MD CHEMISTRY ORDERABLES [place] [address] * (ABNORMAL) CBC WITH DIFF (02/07/2024 2:45 PM EDT) [facility] WBC 8.2 3.7 - 10.3 x10(3)/mcL 02/07/2024 2:50 PM EDT [facility] RBC 4.48 3.90 - 5.20 x10(6)/mcL 02/07/2024 2:50 PM EDT [facility] Hgb 13.0 11.2 - 15.7 g/dL 02/07/2024 2:50 PM EDT [facility] Hct 39.6 34.0 - 45.0 % 02/07/2024 2:50 PM EDT [facility] MCV 88.4 80.0 - 100.0 fL 02/07/2024 2:50 PM EDT [facility] MCH 29.0 26.0 - 34.0 pg 02/07/2024 2:50 PM EDT [facility] MCHC 32.8 30.7 - 35.5 g/dL 02/07/2024 2:50 PM EDT [facility] RDW 14.2 <=14.9 % 02/07/2024 2:50 PM EDT [facility] Platelet 382(H) 155 - 369 x10(3)/mcL 02/07/2024 2:50 PM EDT [facility] MPV 8.6(L) 8.8 - 12.5 fL 02/07/2024 2:50 PM EDT [facility] Neut # Prelim 5.5 1.6 - 6.1 x10(3)/mcL 02/07/2024 2:50 PM EDT [facility] Comment:Preliminary automate d absolute neutrophil count. Value may change if manual differential is indicated. Neut Percent 66.6 % 02/07/2024 2:50 PM EDT [facility] Comment:Neutrophils equals s egs plus bands Imm Gran% 0.6 % 02/07/2024 2:50 PM EDT [facility] Comment:Automated count of m etamyelocytes, myelocytes and promyelocytes. Lymph Percent 21.7 % 02/07/2024 2:50 PM EDT [facility] [place] Percent 10.8 % 02/07/2024 2:50 PM EDT [facility] Eos Percent 0.1 % 02/07/2024 2:50 PM EDT [facility] Baso Percent 0.2 % 02/07/2024 2:50 PM EDT [facility] Neut # 5.5 1.6 - 6.1 x10(3)/[facility] 02/07/2024 2:50 PM EDT [facility] Comment:Neutrophils equals s egs plus bands IMMGRAN# 0.1 0.0 - 0.1 x10(3)/[facility] 02/07/2024 2:50 PM EDT [facility] Comment:Automated count of m etamyelocytes, myelocytes and promyelocytes. An absolute IG <0.1 is reported as 0.0. Lymph # 1.8 1.2 - 3.9 x10(3)/[facility] 02/07/2024 2:50 PM EDT [facility] [place] # 0.9 0.3 - 0.9 x10(3)/[facility] 02/07/2024 2:50 PM EDT [facility] Eos# 0.0 0.0 - 0.5 x10(3)/[facility] 02/07/2024 2:50 PM EDT [facility] Baso # 0.0 0.0 - 0.1 x10(3)/[facility] 02/07/2024 2:50 PM EDT [facility] Blood VENOUS BLOOD / Unknown Venipuncture / Unknown 02/07/2024 2:45 PM EDT 02/07/2024 2:45 PM EDT us Darío Rubio MD HEMATOLOGY ORDERABLES Final Re sult [facility] [address] [place] [address] documented in this encounter Visit Diagnoses Diagnosis Invasive ductal carcinoma of breast, left (HCC) documented in this encounter Additional Health Concerns Assessment Noted Time PHQ-9 Depression Total Score: 13 12/28/2 024 1:47 PM EDT PHQ-2 Depression Total Score: 3 03/29/20 24 1:47 PM EDT documented as of this encounter Care Teams Assistant Portfolio Manager Relationship Specialty Start Date End Date Damaso Black MD [address] [facility] [address] [place] [address] PCP - General Family Medicine 11/22/22 Swapnil Lopez MD [address] [place] [address] Internal Medicine-Gastroenterology 02/16/22 Darío Rubio MD [address] [place] [address] [place] [address] Internal Medicine-Medical Oncology 12/11/23 Mya Naranjo MD [address] [facility] [facility] [place] [address] Family Medicine - Hospice And Palliative Medicine 01/04/24 Ashley Ordonez APRN [address] [facility] [place] [address] Nurse Practitioner 01/04/24 Nicole Melendez, RN Registered Nurse 01/04/24 Aislinn Viera, ANGE Registered Nurse 02/07/24 documented as of this encounter
--- OUTSIDE RECORDS SUMMARY | 2024-08-15 13:50 | XMS_ITS | Encounter Summary ---
Author Organization [place] [address] Care Team Providers Care Boatwright Name Role Phone Swapnil Lopez MD Unavailable [phone] Damaso Black MD Primary Care Provider [phone] Darío Rubio MD Unavailable [phone] Mya Naranjo MD Unavailable [phone] Ashley Ordonez APRN Unavailable [phone] Nicole Melendez RN Unavailable Unavailable Aislinn Viera RN Unavailable Unavailable Reason for Visit * Reason Comments Pharmacy Oncology Management Pharmacy Reassessment ribociclib Encounter Details Date Type Department Care Team (Latest Contact Info) Description 01/30/2024 Specialty Pharmacy [facility] [address] [place] [address] Ivory Mesa, [facility] Pharmacy Oncology Management; Pharmacy Reassessment (ribociclib) Social History Tobacco Use Types Packs/Day [...] AM Gabby De La Garza, SHANNON * Is the person blind or does he/she have serious difficulty seeing even when wearing glasses? Answer Date of Assessment Author No 09/05/2017 11:13 AM Gabby De La Garza, LUA * Does this person have serious difficulty walking or climbing stairs? Answer Date of Assessment Author No 09/05/2017 11:13 AM Gabby De La Garza, LUA * Does this person have difficulty dressing or bathing? Answer Date of Assessment Author No 09/05/2017 11:13 AM Gabby De La Garza, LUA * Because of a physical, mental or emotional condition, does this person have difficulty doing errands alone such as visiting a doctor's office or shopping? Answer Date of Assessment Author No 09/05/2017 11:13 AM Gabby De La Garza, SHANNON documented as of this encounter Mental Status * Because of a physical, mental or emotional condition, does this person have serious difficulty concentrating, remembering or making decisions? 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 Ramiro Waykay Way is a 63 y.o. female, who was contacted for a reassessment of ribociclib for MBC. Missed doses: yes Medication Adherence What concerns does the patient have in regards to their medications: Patient reports 1 missed dose at the beginning of the cycle due to forgetting. Also reports taking last dose of cycle on 01/28/24, though based on start date of 01/09/24 Day 21 would be 01/29/24. Also held doses for a few days as instructed by provider due to severe diarrhea. Patient reported X missed doses in the last month: 2 Demonstrates understanding of importance of adherence: yes Informant: patient Reliability of informant: reliable Provider-estimated medication adherence level: 90-100% Reasons for non-adherence: patient forgets, instructed by provider to hold or take differently Confirmed plan for next specialty medication refill: pick-up at pharmacy Side effects: yes Adverse Effects Rash: Pos Diarrhea: Pos *All other systems reviewed and are negative Objective Lab Results Component Value Date CREATININE 0.99 01/23/2024 Lab Results Component Value Date WBC 3.7 01/23/2024 HGB 11.5 01/23/2024 HCT 36.5 01/23/2024 PLT 209 01/23/2024 NEUTABSPRE 3.6 12/11/2023 NEUTROABS 2.3 01/23/2024 LYMPHSABS 1.1 (L) 01/23/2024 MONOSABS 0.3 01/23/2024 EOSABS 0.1 01/23/2024 BASOABS 0.0 01/23/2024 Lab Results Component Value Date ALT 10 01/23/2024 AST 12 01/23/2024 ALKPHOS 101 01/23/2024 LABBILI 0.4 01/23/2024 BILIDIR <0.2 01/20/2022 PROT 6.1 (L) 01/23/2024 INR 1.17 (H) 06/25/2016 Day 14 EKG (01/23/2024): QTcF = 405 msec Prior to Admission medications Medication Sig Start Date End Date Taking? Authorizing Provider anastrozole (ARIMIDEX) 1 mg Oral Tablet Take 1 Tablet by mouth daily. Take with or without food 01/23/24 Darío Rubio MD diphenoxylate-atropine (LOMOTIL) 2.5-0.025 mg Oral Tablet TAKE 2 TABLETS BY MOUTH FOUR TIMES DAILY NEEDED. NO MORE THAN 8 TABLETS PER DAY 01/25/24 Gm Marks MD loperamide (IMODIUM) 2 mg Oral Capsule Take 1 Capsule by mouth every 3 hours. 01/24/24 Darío Rubio MD predniSONE (DELTASONE) 10 mg Oral Tablet Take 1 Tablet by mouth daily. 07/28/22 Swapnil Lopez MD promethazine (PHENERGAN) 25 mg Oral Tablet Take 1 Tablet by mouth every 4 hours as needed for Nausea or Vomiting for up to 30 days. 25mg every 4-6 hours as needed 12/29/23 01/28/24 Mya Naranjo MD ribociclib (KISQALI) 400 mg/day (200 mg x 2) Oral Tablet Take 2 tablets by mouth daily for 21 days followed by 7 days off 01/23/24 Darío Rubio MD traMADoL (ULTRAM) 50 mg Oral Tablet Take 2 Tablets by mouth every 4 hours as needed for Pain. MAXOF 6 TABLETS PER DAY 01/23/24 Arabella Raya MD triamcinolone (KENALOG) 0.1 % Top Cream Apply topically 3 times daily. 01/23/24 Darío Rubio MD Assessment Oncology: Reassessment performed with patient via telephone. Patient continues on ribociclib 400 mg PO daily on days 1-21 every 28 days. Patient reports taking medication as prescribed. Patient expresses the following complaints, though issues predate starting ribociclib so unclear how much medication is cont ributing: Diarrhea - patient has history of Crohn's disease, takes loperamide and Lomotil to help control. Patient states that this has improved since reducing dose of ribociclib, but continues to experience nighttime episodes even during off week . Referral to GI pending. Rash - reports rash on her back that responded to triamcinolone cream prescribed by Dr. Rubio, buthas now begun to flare again. Rash is isolated to the back. Urgent referral to dermatology pending. Noted patient had reported intolerance (nausea/vomiting) of tramadol recently to palliative care thought to be related to pharmacy change. Discussed that the DDI with ribociclib could be contributing. Patient states that this has improved at this time, will discuss with palliative care provider if issues develop in the future. Per discussion with Dr. Ramiro santiago to delay start of Cycle 2 until after office visit on 02/07/24 toreview labs and EKG prior. Effectiveness: too soon to evaluate Medication reconciliation was performed, allergy list remains the same. No clinically significant drug interactions identified. Therapy reviewed and found to be appropriate and still warranted. Progress towards goals of therapy: > 90% adherent. Goals of therapy assessed with provider. Willcontinue to follow to ensure medication goals align. Drug Interactions Clinically relevant drug interactions identified: yes Interactions list: Ribociclib (Moderate CY Inhibitor) may increase serum concentrations of the TraMADol and its active metabolite(s) Drug management plan: Monitor patient closely for [...] and signs or symptoms of opioid withdrawal. Plan Pharmacist does not recommend any changes to therapy. Patient to continue therapy as prescribed andis aware to call with questions/concerns. Patient has a follow up appointment on 02/07/2024. Clinical Assessment Follow-up: 3 month(s) Interim Assessment: next provider visit to review repeat labs/EKG, specialist recommendations Reviewed plan of care, expected outcomes, and goals of therapy with patient who verbalized understanding and is agreeable with plan. Ally Mesa PharmD, DONATO, CHELSEA Oncology Pharmacist 01/30/2024 10:54 AM * Ivory Mesa RPH - 01/30/2024 10:06 AM EDT [facility] CBC/diff and CMP unremarkable on 02/07/24. EKG not performed, per clinic RN will forego EKG at this time. Appointments with GI and dermatology still pending at this time. 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 EKG obtained with QTc = 403 msec. CBC/diff and CMP normal. Noted GI recommended initiating Rinvoq, advised against this due to additive immunosuppression with ribociclib. Mesalamine ordered as alternative (C interaction). Dermatology appointment was canceled by the patient. Will follow up after repeat scans for efficacy RA. Ally Mesa PharmD, BCPS, BCOP Oncology Pharmacist 03/08/2024 4:02 PM documented in this encounter Plan of Treatment Upcoming Encounters Date Type Department Care Team (Late st Contact Info) Description 09/11/2024 1:45 PM EST Office Visit [facility] [address] [place] [address] Swapnil Lopez MD [address] [place] [id number] 10/21/2024 2:[address] [facility] MRI [address] [place] [address] Jacky Shirley MD [address] [place] [address] [phone] 10/23/2024 1:45 PM EST Appointment [facility] [address] [place], [place] [id number] Olena Darby APRN [address] [place] [address] [phone] documented as of this encounter Goals Goal [...] documented as of this encounter Care Teams Boatwright Relationship Specialty Start Date End Date Damaso Black MD [address] [place] [address] PCP - General Family Medicine 11/22/22 Swapnil Lopez MD [address] [place] [phone] Internal Medicine-Gastroenterology 02/16/22 Darío Rubio MD [address] [place] [address] [place] [address] Internal Medicine-Medical Oncology 12/11/23 Mya Naranjo MD [address] [place] [address] [place] [address] Family Medicine - Hospice And Palliative Medicine 01/04/24 Ashley Ordonez APRN [address] [place] [address] [place] [address] Nurse Practitioner 01/04/24 Nicole Melendez, RN Registered Nurse 01/04/24 Aislinn Viera, ANGE Registered Nurse 02/07/24 documented as of this encounter
--- OUTSIDE RECORDS SUMMARY | 2024-08-15 13:50 | XMS_ITS | Encounter Summary ---
Author Organization [place] [address] Care Team Providers Care Metal Furniture Glazier Name Role Phone Swapnil Lopez MD Unavailable [phone] Damaso Black MD Primary Care Provider [phone] Darío Rubio MD Unavailable [phone] Mya Naranjo MD Unavailable [phone] Ashley Ordonez APRN Unavailable [phone] Nicole Melendez RN Unavailable Unavailable Encounter Details Date Type Department Care Team (Late st Contact Info) Description 02/06/2024 Orders Only [facility] Medical Oncology [place] [phone] Darío Rubio MD [address] [place], [place] [phone] Invasive ductal carcinoma of breast, left (HCC) [...] PM EST Office Visit [facility] [address] [place] [address] Swapnil Lopez MD [address] [place] [address] 10/21/2024 2:00 PM EST Appointment [facility] MRI [address] [place] [address] Jacky Shirley MD [address] [facility] [place] [address] 10/23/2024 1:45 PM EST Appointment [facility] [place] [address] Olena Darby APRN [address] [place] [address] [place] [address] documented as of this encounter Goals Goal [...] - 145 mmol/L 02/07/2024 3:13 PM EDT [facility] Potassium 4.6 3.5 - 5.0 mmol/L 02/07/2024 3:13 PM EDT [facility] Chloride 104 98 - 107 mmol/L 02/07/2024 3:13 PM EDT [facility] Total CO2 26 22 - 29 mmol/L 02/07/2024 3:13 PM EDT [facility] Anion Gap 9 7 - 16 mmol/L 02/07/2024 3:13 PM EDT [facility] Calcium 9.3 8.8 - 10.4 mg/dL 02/07/2024 3:13 PM EDT [facility] Glucose Lvl 85 70 - 99 mg/dL 02/07/2024 3:13 PM EDT [facility] BUN 14 8 - 23 mg/dL 02/07/2024 3:13 PM EDT [facility] Creatinine 1.03 0.51 - 1.30 mg/dL 02/07/2024 3:13 PM EDT [facility] Albumin 4.0 3.2 - 4.6 gm/dL 02/07/2024 3:13 PM EDT [facility] Total Protein 6.8 6.4 - 8.3 gm/dL 02/07/2024 3:13 PM EDT [facility] Bili Total <0.2(L) 0.2 - 1.3 mg/dL 02/07/2024 3:13 PM EDT [facility] ALT 9 <=41 U/L 02/07/2024 3:13 PM EDT [facility] AST 14 <=40 U/L 02/07/2024 3:13 PM EDT [facility] Alk Phos 135(H) 36 - 123 U/L 02/07/2024 3:13 PM EDT [facility] eGFR (CKD-EPIcr 2020) 61 >=60 mL/min/1.7 3 m2 02/07/2024 3:13 PM EDT [facility] Comment:Estimated GFR was ca lculated using the CKD-EPIcr (2020) equation refit without race. The equation is recommended by the National Kid[employer] - [place] [employer] Neph[employer] Task Force. Blood VENOUS BLOOD / Unknown Venipuncture / Unknown 02/07/2024 2:45 PM EDT 02/07/2024 2:45 PM EDT us Darío Rubio MD CHEMISTRY ORDERABLES Final Res ult [facility] [address] [place] [address] * (ABNORMAL) CBC WITH DIFF (02/07/2024 2:45 PM EDT) WBC 8.2 3.7 - 10.3 x10(3)/mcL 02/07/2024 2:50 PM EDT [facility] RBC 4.48 3.90 - 5.20 x10(6)/mcL 02/07/2024 2:50 PM EDT [facility] Hgb 13.0 11.2 - 15.7 g/dL 02/07/2024 2:50 PM EDT [facility] Hct 39.6 34.0 - 45.0 % 02/07/2024 2:50 PM EDT [facility] MCV 88.4 80.0 - 100.0 fL 02/07/2024 2:50 PM EDT [facility] MCH 29.0 26.0 - 34.0 pg 02/07/2024 2:50 PM EDT [facility] MCHC 32.8 30.7 - 35.5 g/dL 02/07/2024 2:50 PM EDT [facility] RDW 14.2 <=14.9 % 02/07/2024 2:50 PM EDT [facility] Platelet 382(H) 155 - 369 x10(3)/mcL 02/07/2024 2:50 PM EDT [facility] MPV 8.6(L) 8.8 - 12.5 fL 02/07/2024 2:50 PM EDT [facility] Neut # Prelim 5.5 1.6 - 6.1 x10(3)/mcL 02/07/2024 2:50 PM EDT [facility] Comment:Preliminary automate d absolute neutrophil count. Value may change if manual differential is indicated. Neut Percent 66.6 % 02/07/2024 2:50 PM EDT [facility] Comment:Neutrophils equals s egs plus bands Imm Gran% 0.6 % 02/07/2024 2:50 PM EDT [facility] Comment:Automated count of m etamyelocytes, myelocytes and promyelocytes. Lymph Percent 21.7 % 02/07/2024 2:50 PM EDT [facility] [place] Percent 10.8 % 02/07/2024 2:50 PM EDT [facility] Eos Percent 0.1 % 02/07/2024 2:50 PM EDT [facility] Baso Percent 0.2 % 02/07/2024 2:50 PM EDT [facility] Neut # 5.5 1.6 - 6.1 x10(3)/[facility] 02/07/2024 2:50 PM EDT [facility] Comment:Neutrophils equals s egs plus bands IMMGRAN# 0.1 0.0 - 0.1 x10(3)/mcL 02/07/2024 2:50 PM T [facility] Comment:Automated count of m etamyelocytes, myelocytes and promyelocytes. An absolute IG <0.1 is reported as 0.0. Lymph # 1.8 1.2 - 3.9 x10(3)/mcL 02/07/2024 2:50 PM EDT [facility] [place] # 0.9 0.3 - 0.9 x10(3)/mcL 02/07/2024 2:50 PM EDT [facility] Eos# 0.0 0.0 - 0.5 x10(3)/[facility] 02/07/2024 2:50 PM EDT [facility] Baso # 0.0 0.0 - 0.1 x10(3)/mcL 02/07/2024 2:50 PM EDT [facility] Blood VENOUS BLOOD / Unknown Venipuncture / Unknown 02/07/2024 2:45 PM EDT 02/07/2024 2:45 PM EDT us Darío Rubio MD HEMATOLOGY ORDERABLES Final Re sult [facility] [address] [place] [address] documented in this encounter Visit Diagnoses Diagnosis Invasive ductal carcinoma of breast, left (HCC)- Primary documented in this encounter Additional Health Concerns Assessment Noted Time PHQ-9 Depression Total Score: 13 024 1:47 PM EDT PHQ-2 Depression Total Score: 3 12/29/19 24 1:47 PM EDT documented as of this encounter Care Teams Metal Furniture Glazier Relationship Specialty Start Date End Date Damaso Black MD [address] [facility] [address] [place] [address] PCP - General Family Medicine 11/22/22 Swapnil Lopez MD [address] [place] [phone] Internal Medicine-Gastroenterology 02/16/22 Darío Rubio MD [address] [place] [address] [place] [address] Internal Medicine-Medical Oncology 12/11/23 Mya Naranjo MD [address] [place] [address] [place] [address] Family Medicine - Hospice And Palliative Medicine 01/04/24 Ashley Ordonez APRN [address] [facility] [place] [address] Nurse Practitioner 01/04/24 Nicole Melendez, RN Registered Nurse 01/04/24 documented as of this encounter
--- OUTSIDE RECORDS SUMMARY | 2024-08-15 13:51 | XMS_ITS | Encounter Summary ---
Author Organization [place] [address] Care Team Providers Care Transitions Rn Care Coordinator Name Role Phone Swapnil Lopez MD Unavailable [phone] Damaso Black MD Primary Care Provider [phone] Darío Rubio MD Unavailable [phone] Mya Naranjo MD Unavailable [phone] Ashley Ordonez APRN Unavailable [phone] Nicole Melendez RN Unavailable Unavailable Reason for Referral * Consultation (Emergency) - Authorization Not Needed Specialty Diagnoses / Procedures Referred By Contac t Referred To Contact Gastroenterology Diagnoses Invasive ductal carcinoma of left breast, stage 4 (HCC) Darío Rubio MD [address] [place] [address] Phone: tel: fax: Swapnil Lopez MD [address] [place] [phone] Phone: tel: fax: Referral ID Status Reason Start Date Expiration Date Visits Requested Visits Authorized [id number] Authorization Not Needed 01/23/2024 01/22/2025 1 1 Question Answer Is this referral for colon cancer screening? No Provider Options This Provider Only Comments Crohn's disease Stage IV Breast cancer on kisqali, having diarrhea unclear if diarrhea from just kisqali or also crohns * Consultation (Routine) - Authorization Not Needed Specialty Diagnoses / Procedures Referred By Lata deal Referred To Contact Dermatology Diagnoses Skin rash Darío Rubio MD [address] [place] [address] Phone: tel: fax: Linda Urbina MD [address] [place] [address] Phone: tel: fax: Referral ID Status Reason Start Date Expiration Date Visits Requested Visits Authorized [id number] Authorization Not Needed 01/23/2024 01/22/2025 1 1 Question Answer Provider Options First Available Is this an Oncology Provider request? Yes Comments rash on back Reason for Visit * Reason Comments Follow-up Breast Cancer Rash Pt. Has a rash like bumps on her back. They are itchy and painful. Diarrhea Pt. States she has h ad a lot of diarrhea, patient was sent in some medication for this. * Consultation (Routine) - Pending Review Specialty Diagnoses / Procedures Referred By Lata deal Referred To Contact Radiation Oncology Diagnoses Invasive ductal carcinoma of left breast, stage 4 (HCC) Darío Rubio MD [address] [place] [address] Phone: tel: fax: Jacky Shirley MD [address] [place] [address] [place] [address] Phone: tel: fax: Referral ID Status Reason Start Date Expiration Date V isits Requested Visits Authorized [id number] Pending Review 12/11/2023 12/10/2024 1 1 Encounter Details Date Type Department Care Team (Latest Contact Info) Description 01/23/2024 11:00 AM EDT - 01/23/2024 11:46 AM EDT Hospital Encounter [facility] [place] [address] Jacky Shirley MD 1 [facility] [place] [address] Darío Rubio MD 1 [facility] [place] [address] Invasive ductal carcinoma of left breast, stage 4 (HCC) (Primary Dx); Skin rash; Invasive ductal carcinoma of breast, left (HCC) [...] Sign Reading Time Taken Comments Blood Pressure 113/65 01/23/2024 11:24 AM EDT Pulse 81 01/23/2024 11:24 AM EDT Temperature 36.9 ??C (98.4 ??F) 01/23/2024 11:24 AM E DT Respiratory Rate 16 01/23/2024 11:24 AM EDT Oxygen Saturation 99% 01/23/2024 11:24 AM EDT Inhaled Oxygen Concentration - - Weight 57.4 kg (126 lb 9.6 oz) 01/23/2024 11:24 AM EDT Height 157.5 cm (5' 2 ) 01/23/2024 11:24 AM EDT Body Mass Index 23.16 01/23/2024 11:24 AM EDT documented in this encounter Functional Status [...] 12/29/2023 01/28/2024 documented as of this encounter Ordered Prescriptions Prescription Sig Dispense Quantity Refills Last Filled Start Date End Date anastrozole (ARIMIDEX) 1 mg Oral TabletIndications: Invasive ductal carcinoma of breast, left (HCC) Take 1 Tablet by mouth daily. Take with or without food 30 Tablet 11 01/23/2024 4 ribociclib (KISQALI) 600 mg/day (200 mg x 3) Oral TabletIndications: Invasive ductal carcinoma of breast, left (HCC) Take 2 Tablets by mouth daily for 21 days. 42 Tablet 01/23/2024 4 triamcinolone (KENALOG) 0.1 % Top CreamIndications:S kin rash Apply topically 3 times daily. 80 g 01/23/2024 4 documented in this encounter Discharge Disposition Disposition Code Departure Means Destination Home or Self Care documented in this encounter Progress Notes * Darío Rubio MD - 01/23/2024 11:00 AM EDT Images from the original [...] testing results were negative. CURRENT TREATMENT: Ribociclib 600 mg daily + 1 mg of anastrazole daily INTERVAL HISTORY: Ms. Sy is a 63 y.o. female who is here for follow up. Patient states that since last visit she has developed rash on her back that is new. Has had some diarrhea > 5-6x/day and got imodium and lomotil that improved it. Rash on back that started in [facility] before medications. Reviewed past medical, surgical, family, and social histories. Review of systems: Constitutional: + fatigue HEENT: No visual problems; no hearing loss or vertigo. Respiratory: No cough, wheezing, or shortness of breath. Cardiovascular: No chest pain. /GI: No frequency or urgency; no dysuria; no hematuria. +diarrhea Musculoskeletal: No back pain Integument: + rash Neurologic: No headaches; no dizziness Endocrine: No polyuria or polydipsia Lymphatic: No nodes/glands. No night sweats or unintended weight loss. Psychiatric: No depression or anxiety Hematologic: No easy bruising; no anemia. PHYSICAL EXAM: Vitals: 01/23/24 1124 BP: 113/65 Pulse: 81 Resp: 16 Temp: 98.4 ??F (36.9 ??C) SpO2: 99% Wt Readings from Last 3 Encounters: 01/23/24 126 lb 9.6 oz (57.4 kg) 01/12/24 127 lb 12.8 oz (58 kg) 01/05/24 128 lb (58.1 kg) GENERAL APPEARANCE: Alert & Cooperative, Oriented X 3 HEAD: Normocephalic, without obvious abnormality, atraumatic NECK: No palpable lymphadenopathy in supraclavicular or cervical chains LUNGS: No audible rales, wheezes or crackles HEART: Regular rate and rhythm ABDOMEN: Soft, non-tender; bowel sounds normal; no masses, no organomegaly EXTREMETIES: without cyanosis, clubbing, edema or asymmetry SKIN: Rash on back with multiple lesions nonblanchable, some open/bleeding LABS: CBC: Lab Results Component Value Date/Time WBC 3.7 01/23/2024 10:58 AM WBC 15.1 (H) 06/25/2016 11:25 AM RBC 4.08 01/23/2024 10:58 AM RBC 4.83 06/25/2016 11:25 AM PLT 209 01/23/2024 10:58 AM PLT 329 06/25/2016 11:25 AM CMP: Lab Results Component Value Date NA 141 01/23/2024 K 4.2 01/23/2024 CL 106 01/23/2024 CO2 27 01/23/2024 ANIONGAP 8 01/23/2024 CALCIUM 8.8 01/23/2024 GLU 115 (H) 01/23/2024 BUN 9 01/23/2024 CREATININE 0.99 01/23/2024 ALBUMIN 3.3 01/23/2024 PROT 6.1 (L) 01/23/2024 LABBILI 0.4 01/23/2024 ALT 10 01/23/2024 AST 12 01/23/2024 GFRAFRAM 77 04/13/2021 GFRNONAFRAM 67 04/13/2021 IMAGING: All relevant images were reviewed in detail with the patient. All questions were addressed and answered in great detail. CT HEAD RADIATION THERAPY PLANNING WO CONTRAST Result Date: 01/05/2024 CT HEAD RADIATION THERAPY PLANNING WO CONTRAST 01/05/2024 12:00 PM CLINICAL HISTORY: C79.51-Secondarymalignant neoplasm of bone (HCC)-ICD-10-CM. COMPARISON: 11/23/23. PROCEDURE COMMENTS: Multidetector CT scanning of the region of interest per treatment planning protocol with markers placed. FINDINGS:Examination appears technically adequate with satisfactory field of view and coverage range. Previously demonstrated pathology shows grossly stable appearance. No significant new finding. Treatment planning CT appears technically adequate. - Note: Radiology results need to be [...] Ductal Carcinoma of Left Breast (T2N3M1, ER+, TX+, HER2-) Patient coming from [facility]. Patient reports feeling an enlarging breast lump. She is post-menopausal and has had a hysterectomy and no FMH of cancer. Left breast mass and left axilla biopsied and revealing invasive ductal carcinoma, grade 2, some DCIS as well. ER 96%, TX 73%, HER2 2+, FISH negative, lymph node [...] for faslodex monthly monotherapy if still in [facility]. Discussed side effects of faslodex and gave information. If out of [facility]- would consider faslodex and ribociclib vs AI + CDK4/6. Now out of [facility] mid December 2023 and so we can do CDK4/6 inhibitor ribociclib + anastrazole (AI). Hadstarted on AI prior. Discussed side effects of neutropenia, EKG/arrhythmia abnormalities, peripheral edema, alopecia, rash, electrolyte abnormalities, n/v/d, abdominal pain, other cytopenias, liver and kidney abnormalities, infection, fatigue, dizziness, headaches, arthralgias, osteoporosis ocean transportation intermediary, fever, hot flashes, mood swings and other side effects that will be discussed in teach session with RN. To take days 1-21 and have 7 days off. Baseline Qtc 395 on 12/19/23 with sinus bradycardia and non-specific T- wave inversion- no known coronary disease she knows of. 01/23/24 update: Rash on Back Started ribociclib in 12/2023 and developed grade 2 diarrhea controlled with imodium. WBC 3.7, ANC of 2.3. Tolerating AI well. States had new rash develop on her back prior to starting kisqali back when she was in [facility] and now worsening with itching and bleeding of some lesions. EKG with Qtc of 405.Received radiation to calvarial met with Dr. Shirley on 01/12/24. -Trial of triamcinolone cream, dermatology referral for rash- unclear etiology, I don't think this is related to kisqali given there before, but kisqali can cause a rash potentially as well -Regarding kisqali, dose reduce to 400 mg daily for now given grade 2 diarrhea controlled with imodium and lomotil; can bring in for IVF if need be as well -Continue 1 mg of anastrazole daily -Needs baseline bone density scan (will need to order on next visit), Ca/VitD/weight bearing exercise -Follow up MRI and [...] with GI- needs re-scheduled with Dr. Lopez per patient preference. Will need their input regarding if diarrhea if Crohn's contributing to this or just all kisqali related. -Plan to scan in 3 months Follow up 2 weeks with [facility] for tox check and repeat labs A total of 45 minutes of the encounter was spent in performing the following complex tasks: 1) Reviewing medical records in [facility] and if applicable outside records as [...] PM EST Office Visit [facility] [address] [place] [address] Swapnil Lopez MD [address] [place] [address] 10/21/2024 2:00 PM EST Appointment [facility] MRI [address] [place] [address] Jacky Shirley MD [address] [place] [address] [place] [address] 10/23/2024 1:45 PM EST Appointment [facility] [place] [place] [address] Olena Darby APRN 1 [facility] [place] [address] Scheduled Referrals Name Type Priority Associated Diagnoses Order Schedule AMB REFERRAL TO DERMATOLOGY Outpatient Referral Routine Skin rash Ordered: 01/23/2024 AMB REFERRAL TO GASTROENTEROLOGY Outpatient Referral STAT Invasive ductal carcinoma of left breast, stage 4 (HCC) Ordered: 01/23/2024 documented as of this encounter Goals Goal Patient Goal Type Associated Problems Recent Progress Patient-Stated? Author Breast [facility] Breast [facility] Mary Kate Vázquez, RN Note: Patient acknowledges understanding of new diagnosis, plan of care, available resources and how to contact Nurse Navigator with any future questions or concerns. Maintain a healthy diet, exercise regularly and maintain an ideal body weight General Linda Perez, A documented as of this encounter Visit Diagnoses Diagnosis Invasive ductal carcinoma of left breast, stage 4 (HCC)- Primary Skin rash Rash and other nonspecific skin eruption Invasive ductal carcinoma of breast, left (HCC) documented in this encounter Discontinued Medications Medication Sig Discontinue Reason Start Date End Da te ribociclib (KISQALI) 600 mg/day (200 mg x 3) Oral TabletIndications:Invas jeannine ductal carcinoma of breast, left (HCC) Take 3 tablets (600 mg) by mouth once daily with or without food for 21 days, followed by 7 days off. Reorder 01/03/2024 01/23/2024 anastrozole (ARIMIDEX) 1 mg Oral TabletIndications:Invas jeannine ductal carcinoma of breast, left (HCC) Take 1 Tablet by mouth daily. Take with or without food Reorder 01/06/2024 01/23/2024 documented as of this encounter Additional Health Concerns Assessment Noted Time PHQ-9 Depression Total Score: 13 024 1:47 PM EDT PHQ-2 Depression Total Score: 3 12/29/19 24 1:47 PM EDT documented as of this encounter Care Teams Transitions Rn Care Coordinator Relationship Specialty Start Date End Date Damaso Black MD [address] [place] [address] PCP - General Family Medicine 11/22/22 Swapnil Lopez MD [address] [place] [phone] Internal Medicine-Gastroenterology 02/16/22 Darío Rubio MD [address] [place] [address] [place] [address] Internal Medicine-Medical Oncology 12/11/23 Mya Naranjo MD [address] [place] [address] [place] [address] Family Medicine - Hospice And Palliative Medicine 01/04/24 Ashley Ordonez APRN [address] [place] [address] [place] [address] Nurse Practitioner 01/04/24 Nicole Melendez, RN Registered Nurse 01/04/24 documented as of this encounter
--- OUTSIDE RECORDS SUMMARY | 2024-08-15 13:51 | XMS_ITS | Encounter Summary ---
Author Organization [place] [address] Care Team Providers Care Research Consultant Name Role Phone Swapnil Lopez MD Unavailable [phone] Damaso Black MD Primary Care Provider [phone] Darío Rubio MD Unavailable [phone] Mya Naranjo MD Unavailable [phone] Ashley Ordonez APRN Unavailable [phone] Nicole Melendez RN Unavailable Unavailable Reason for Visit * Reason Onset Date Comments Patient Question 01/11/2024 Question about scheduling an appointment Encounter Details Date Type Department Care Team (Late st Contact Info) Description 01/11/2024 Telephone Cancer Care Medical Oncology [place] [phone] Ashley Ordonez, VARN[facility] THINNER [address] [place] [address] Patient Question (Question about scheduling an appointment) Social History Tobacco Use Types Packs/Day Years [...] End Date traMADoL (ULTRAM) 50 mg Oral Tablet Take 2 Tablets by mouth every 4 hours as needed for Pain for up to 5 days. MAX of 10 tablets per day 50 Tablet 01/14/2024 documented in this encounter Miscellaneous Notes * Telephone Encounter - Nicole Melendez, RN - 01/11/2024 3:00 PM EDT Pt received 100 tabs. Pt states she was supposed to get 150. Per last pal care note: Cancer related pain*: complicated by chronic pain due to Crohn's disease. -continue current pain regimen Tramadol 50 mg 2 tabs every 4 hours as needed MAX 10 tabs/day(#150 12/29/23) plan would be to transition back to Dr Rankin when franky Ray is reflecting what pt is stating. Will forward an order to Dr. Naranjo for approval of the remaing medication. Nicole Melendez, RN * Telephone Encounter - Tessa Dotson, Clerical Staff - 01/11/2024 12:10 PM EDT Reason for call: Ms Sy has an appointment tomorrow in radiation. She would like to know if she can talk with one of the palliative dr's regarding some medication issues that she is having with her pharmacy. Preferred call back number:[phone] documented in this encounter Plan of Treatment Upcoming Encounters Date Type Department Care Team (Late st Contact Info) Description 09/11/2024 1:45 PM EST Office Visit [facility] [address] [place] [address] Swapnil Lopez MD [address] [place] [address] 10/21/2024 2:00 PM EST Appointment [facility] MRI [address] [place] [address] Jacky Shirley MD 1 [facility] [place] [address] 10/23/2024 1:45 PM EST Appointment [facility] [place] [address] Olena Darby APRN [address] [place] [address] [place], [place] [id number] documented as of this encounter Goals Goal [...] Da te traMADoL (ULTRAM) 50 mg Oral Tablet Take 2 Tablets by mouth every 4 hours as needed for Pain for up to 10 days. MAX of 10 tablets per day Reorder 01/07/2024 01/11/2024 documented as of this encounter Additional Health Concerns Assessment Noted Time PHQ-9 Depression Total Score: 13 024 1:47 PM EDT PHQ-2 Depression Total Score: 3 12/29/19 24 1:47 PM EDT documented as of this encounter Care Teams Research Consultant Relationship Specialty Start Date End Date Damaso Black MD [address] [facility] [address] [place] [address] PCP - General Family Medicine 11/22/22 Swapnil Lopez MD [address] [place] [phone] Internal Medicine-Gastroenterology 02/16/22 Darío Rubio MD [address] [place] [address] [place] [address] Internal Medicine-Medical Oncology 12/11/23 Mya Naranjo MD [address] [place] [address] Family Medicine - Hospice And Palliative Medicine 01/04/24 Ashley Ordonez APRN [address] [place] [phone] Nurse Practitioner 01/04/24 Nicole Melendez, RN Registered Nurse 01/04/24 documented as of this encounter
--- OUTSIDE RECORDS SUMMARY | 2024-08-15 13:51 | XMS_ITS | Encounter Summary ---
Author Organization [place] [address] Care Team Providers Care Cam Maker Name Role Phone Swapnil Lopez MD Unavailable [phone] Damaso Black MD Primary Care Provider [phone] Darío Rubio MD Unavailable [phone] Mya Naranjo MD Unavailable [phone] Ashley Ordonez APRN Unavailable [phone] Nicole Melendez RN Unavailable Unavailable Reason for Visit * Reason Comments Pharmacy Oncology Management Pharmacy Initial Assessment ribociclib Encounter Details Date Type Department Care Team (Latest Contact Info) Description 01/04/2024 Specialty Pharmacy [facility] [address] [place] [address] Ivroy Mesa, [facility] Pharmacy Oncology Management; Pharmacy Initial Assessment (ribociclib) Social History Tobacco Use Types Packs/Day [...] La Garza RMA documented in this encounter Patient Instructions * Attachments The following attachments cannot be sent through Care Everywhere. 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 Previous treatments: none PMH also notable for Crohn's disease Extended Emergency Contact Information Primary Emergency Contact: Eloy Martinez Mobile Relation: Son Secondary Emergency Contact: Adrianna Moncada [facility] Relation: Friend Mother: Gaby Luevano [facility] Objective Lab Results Component Value Date CREATININE 0.65 12/11/2023 Lab Results Component Value Date WBC 6.0 12/11/2023 HGB 13.3 12/11/2023 HCT 38.8 12/11/2023 PLT 235 12/11/2023 NEUTABSPRE 3.6 12/11/2023 NEUTROABS 3.6 12/11/2023 LYMPHSABS 1.8 12/11/2023 MONOSABS 0.6 12/11/2023 EOSABS 0.1 12/11/2023 BASOABS 0.0 12/11/2023 Lab Results Component Value Date ALT <5 12/11/2023 AST 13 12/11/2023 ALKPHOS 95 12/11/2023 LABBILI 0.4 12/11/2023 BILIDIR <0.2 01/20/2022 PROT 7.5 12/11/2023 INR 1.17 (H) 06/25/2016 ECG (12/19/2023): QTc = 395 msec Current Outpatient Medications Medication Sig anastrozole Take 1 Tablet by mouth daily. Take with or without food diphenoxylate-atropine TAKE 2 TABLETS BY MOUTH FOUR TIMES DAILY NEEDED. NO MORE THAN 8 TABLETS PER DAY loperamide TAKE 1 CAPSULE BY MOUTH EVERY 3 HOURS ondansetron TAKE 1 TABLET BY MOUTH EVERY 6 HOURS NEEDED FOR NAUSEA predniSONE Take 1 Tablet by mouth daily. promethazine Take 1 Tablet by mouth every 4 hours as needed for Nausea or Vomiting for up to 30 days. 25mg every 4-6 hours as needed ribociclib Take 3 tablets (600 mg) by mouth once daily with or without food for 21 days, followed by 7 days off. [START ON 01/07/2024] traMADoL Take 2 Tablets by mouth every 4 hours as needed for Pain for up to 10 days. MAX of 10 tablets per day Assessment Patient has been prescribed ribociclib 600 mg PO Once daily for 21 days followed by 7 days off. Therapy clinically appropriate based on NCCN guidelines. Medication reconciliation was performed and medication list and allergies were updated. Initial assessment was performed via telephone with the patient. Goals of therapy assessed with provider. Will continue to follow to ensure medication goals align. Environmental concerns noted: none Mental capacity concerns noted: Cavitarial mets present Functional/Dietary limitations noted: none Goals of therapy: > 90% adherence; prevent disease progression Drug Interactions Drug interactions evaluated: yes Clinically relevant drug interactions identified: yes Interactions [...] signs or symptoms of opioid withdrawal. Plan Patient will have medication delivered in 4 days. Plans to start on 01/10/2024. Patient Counseling Provided counseling on the following: Indication, dose, frequency, administration of the drug - take with or without food at the same time each day, preferably in the morning; swallow whole What to do in case of a missed dose - do not double dose Safe handling, storage, and disposal - hazardous drug precautions Possible drug/OTC as well as drug/food interactions - avoid grapefruit, pomegranate and their juices Lab monitoring and follow-up ECG at baseline, day 14, prior to Cycle 2, then as indicated LFTs and CBC/diff every 2 weeks x 2 cycles, prior to Cycles 3-6, then as indicated Electrolytes prior to each cycle x 6 cycles, then as indicated Cost of medications and cost implications Common adverse effects and management. Side effects discussed included but was not limited to: Reviewed signs and symptoms of infection to monitor for: new fever (100.5??F or higher), cough, chills or rigors. Nausea (minimal to low emetic risk per NCCN), diarrhea, fatigue, decreased blood counts, hair loss,changes in electrical activity of the heart, lung problems When to call the office/go to the emergency room Questions and concerns were addressed. Aware to call specialty pharmacy/cancer care call center with any additional questions or concerns. The patient will be provided a Welcome Packet with information on pharmacy services, their rights and responsibilities, and the Notice of Privacy Practices. This information was reviewed and the patient and understands to contact the pharmacy with any questions or concerns they may have after review ing the material. Reviewed plan of care, expected outcomes, and goals of therapy with patient who verbalized understanding and is agreeable with plan. Clinical Assessment Follow-up: 14 day(s). Patient has a follow up visit on 01/23/2024. Ally Mesa, Kadeem, BCPS, OP Oncology Pharmacist 01/05/2024 1:19 PM * Ivory Mesa RPH - 01/04/2024 9:26 AM EDT [facility] Contacted [address] for initial assessment of ribociclib. No answer; LVM and requested return call to [phone], Option 4. Note pended. Ally Mesa PharmD, DONATO, [facility] Oncology Pharmacist 01/04/2024 3:34 PM documented in this encounter Plan of Treatment Upcoming Encounters Date Type Department Care Team (Late st Contact Info) Description 09/11/2024 1:45 PM EST Office Visit [facility] [address] [place] [address] Swapnil Lopez MD [address] [place] [address] 10/21/2024 2:00 PM EST Appointment [facility] MRI [address] [place] [address] Jacky Shirley MD [address] [place] [address] [facility] [place] [id number] 10/23/2024 1:45 PM EST Appointment [facility] [place] [address] Olena Darby APRN [address] [place] [address] [place] [address] documented as of this encounter [...] Discontinue Reason Start Date End Da te ondansetron (ZOFRAN) 4 mg Oral Tablet TAKE 1 TABLET BY MOUTH EVERY 6 HOURS NEEDED FOR NAUSEA Stopped by patient - ineffective 10/21/2022 01/05/2024 documented as of this encounter Additional Health Concerns Assessment Noted Time PHQ-9 Depression Total Score: 13 024 1:47 PM EDT PHQ-2 Depression Total Score: 3 12/29/19 24 1:47 PM EDT documented as of this encounter Care Teams Cam Maker Relationship Specialty Start Date End Date Damaso Black MD 1005 [facility] [address] [place], [place] [id number] PCP - General Family Medicine 11/22/22 Swapnil Lopez MD [address] [place] [phone] Internal Medicine-Gastroenterology 02/16/22 Darío Rubio MD 1 [facility] [place] [address] Internal Medicine-Medical Oncology 12/11/23 Mya Naranjo MD [address] [place] [address] [place] [address] Family Medicine - Hospice And Palliative Medicine 01/04/24 Ashley Ordonez APRN 1 [facility] [place] [address] Nurse Practitioner 01/04/24 Al, Nicole L, RN Registered Nurse 01/04/24 documented as of this encounter
--- OUTSIDE RECORDS SUMMARY | 2024-08-15 13:51 | XMS_ITS | Encounter Summary ---
Author Organization [place] [address] Care Team Providers Care Inletter Name Role Phone Swapnil Lopez MD Unavailable [phone] Damaso Black MD Primary Care Provider [phone] Darío Rubio MD Unavailable [phone] Mya Naranjo MD Unavailable [phone] Ashley Ordonez APRN Unavailable [phone] Nicole Melendez RN Unavailable Unavailable Reason for Visit * Reason Onset Date Comments Medication Refill 01/06/2024 Encounter Details Date Type Department Care Team (Late st Contact Info) Description 01/06/2024 Telephone SEP Nurse Now [address] [place] [phone] Sydnee Ramirez, police stenographer Refill Social History Tobacco Use Types Packs/Day [...] encounter Miscellaneous Notes * Telephone Encounter - Sydnee Ramirez RN - 01/06/2024 11:16 AM EDT tramadol was sent to [facility], notified pt of change and pt verbalized understanding * Telephone Encounter - Shruthi Myles RN - 01/06/2024 10:42 AM EDT Pt calling to state the pharmacy called and cancelled her Arimidex. Would like it sent to [facility]. Sydnee RN is in contact with providers via Secure chat. * Telephone Encounter - Sydnee Ramirez RN - 01/06/2024 10:15 AM EDT Nurse Triage Call -Chief Complaint: pt calling for tramadol , would like it to go to [facility] in [place]. (stated that perlita canceled it after calling her previous pain clinic.) -Reported by: Patient -Disposition per protocol: call pcp -Follow up/Concerns: message sent to Dr Raya via [place] prescription was sent and will be available tomorrow pt notified documented in this encounter Plan of Treatment Upcoming Encounters Date Type Department Care Team (Late st Contact Info) Description 09/11/2024 1:45 PM EST Office Visit [facility] [address] [place] [facility] [place] [address] Swapnil Lopez MD [address] [place] [address] 10/21/2024 2:00 PM EST Appointment [facility] MRI [address] [place] [address] Jacky Shirley MD [address] [place] [address] CANCER [place], [place] [id number] 10/23/2024 1:45 PM EST Appointment [facility] [place] [address] Olena Darby APRN [address] [place] [address] [place], [place] [id number] documented as of this encounter Goals Goal [...] documented as of this encounter Care Teams Inletter Relationship Specialty Start Date End Date Damaso Black MD 1005 [facility] [address] [place] [address] PCP - General Family Medicine 11/22/22 Swapnil Lopez MD [address] [place] [phone] Internal Medicine-Gastroenterology 02/16/22 Darío Rubio MD [address] [place] [address] [place] [address] Internal Medicine-Medical Oncology 12/11/23 Mya Naranjo MD [address] [facility] [place] [address] Family Medicine - Hospice And Palliative Medicine 01/04/24 Ashley Ordonez APRN [address] [facility] [place] [address] Nurse Practitioner 01/04/24 Nicole Melendez, RN Registered Nurse 01/04/24 documented as of this encounter
--- OUTSIDE RECORDS SUMMARY | 2024-08-15 13:51 | XMS_ITS | Encounter Summary ---
Author Organization [place] [address] Care Team Providers Care Pre K Special Education Teacher Name Role Phone Swapnil Lopez MD Unavailable [phone] Damaso Black MD Primary Care Provider [phone] Darío Rubio MD Unavailable [phone] Mya Naranjo MD Unavailable [phone] Ashley Ordonez APRN Unavailable [phone] Nicole Melendez RN Unavailable Unavailable Reason for Referral * MRI/CAT Scan (Routine) - Closed Specialty Diagnoses / Procedures Referred By Contac t Referred To Contact Radiology Diagnoses Secondary malignant neoplasm of bone (HCC) Procedures MRI BRAIN W WO CONTRAST Heather Quiroz MD [address] [place] [address] Phone: tel: fax: [facility] [[email or web address] [place] [address] Phone: tel: fax: Referral ID Status Reason Start Date Expiration Date Visits Re quested Visits Authorized [id number] Closed 01/12/2024 01/11/2025 1 1 Reason for Visit * Reason Comments Follow-up otv * Radiation Therapy (Routine) - Authorization Not Needed Specialty Diagnoses / Procedures Referred By Contac t Referred To Contact Radiation Oncology Diagnoses Secondary malignant neoplasm of bone (HCC) Procedures [place] RADN RX DELIV,BODY, EACH FRACTION SBRT X 1 FX Jacky Shirley MD [address] [place] [address] Phone: tel: fax: [facility] [address] Phone: tel: fax: Referral ID Status Reason Start Date Expiration Date Visits Requested Visits Authorized [id number] Authorization Not Needed 01/05/2024 01/04/2025 99 99 Encounter Details Date Type Department Care Team (Latest Contact Info) Description 01/12/2024 1:54 PM EDT - 01/12/2024 11:59 PM EDT Hospital Encounter [facility] [address] Jacky Shirley MD [address] [place] [address] Heather Quiroz MD [address] [place] [address] Secondary malignant neoplasm of bone (HCC) (Primary [...] Sign Reading Time Taken Comments Blood Pressure 126/80 01/12/2024 2:46 PM EDT Pulse 64 01/12/2024 2:46 PM EDT Temperature 36.3 ??C (97.3 ??F) 01/12/2024 2:46 PM ED T Respiratory Rate 18 01/12/2024 2:46 PM EDT Oxygen Saturation 100% 01/12/2024 2:46 PM EDT Inhaled Oxygen Concentration - - Weight 58 kg (127 lb 12.8 oz) 01/12/2024 2:46 PM EDT Height - - Body Mass Index 23.37 01/05/2024 9:44 AM EDT documented in this encounter Functional [...] documented in this encounter Progress Notes * Provider, Unknown - 01/12/2024 2:40 PM EDT Pretreatment History: 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 Did well. Plan forcontinued systemic therapy and consideration of aggressive local therapy based on response. Treatment Technique: SBRT Concurrent Systemic Therapy: No Pain: Yes The plan of care for pain includes the following interventions: Patient and/or family education Course: C1 Treatment Site Ref. ID Energy Dose/Fx (cGy) #Fx Dose Correction (cGy) Total Dose (cGy) Start Date End Date Elapsed Days SBRT PTV1.1 Lt Skull Met LtFrntSkull RP 6X-FFF 1,800 0 1,800 01/12/2024 01/12/2024 0 Treatment Course: C1 Plan for Follow-Up: Return to clinic in 4 weeks ? * Heather Quiroz MD - 01/12/2024 2:15 PM EDT RADIATION ONCOLOGY WEEKLY TREATMENT NOTE Patient Name: Ra Way : 1960 DOS: 01/12/2024 SITE: Brain CURRENT/TOTAL DOSES: 1,800/1,800 cGy CONCURRENT CHEMOTHERAPY: no SUBJECTIVE: Pt. Tolerated tx well. No questions or concerns. [place] PHYSICAL EXAM: BP 126/80 (BP Location: Right arm, Patient Position: Sitting) Pulse 64 Temp 97.3 ??F (36.3 ??C) Resp 18 Wt 127 lb 12.8 oz (58 kg) SpO2 100% BMI 23.37 kg/m?? Wt Readings from Last 3 Encounters: 01/12/24 127 lb 12.8 oz (58 kg) 01/05/24 128 lb (58.1 kg) 12/29/23 141 lb 12.8 oz (64.3 kg) Physical Exam Constitutional: Appearance: Normal appearance. Cardiovascular: Rate and Rhythm: Normal rate and regular rhythm. Pulmonary: Effort: Pulmonary effort is normal. Abdominal: General: Abdomen is flat. Neurological: General: No focal deficit present. Mental Status: He is alert and oriented to person, place, and time. Mental status is at baseline. Psychiatric: Mood and Affect: Mood normal. Behavior: Behavior normal. ASSESSMENT/PLAN: The plan of care for pain includes the following Interventions: Patient and/or family education Psychological support Ra Way was seen today for follow-up. Diagnoses and all orders for this visit: Secondary malignant neoplasm of bone (HCC) - MRI BRAIN W WO CONTRAST; Future Mrs. Rosales is doing well without evidence of toxicity other than what is anticipated at this point in the treatment course. She tolerated the treatment well, without evidence of skin or other significant toxicity. All questions answered, logistics reviewed. We will otherwise see her again in 3 months with repeat MRI Brain. Otherwise, she knows how to get a hold of our team should she have any questions or concerns. Heather Quiroz MD documented in this encounter Procedure Notes * Provider, Unknown - 01/12/2024 2:38 PM EDT Images from the original note were not included. Date:01/12/2024 Patient Name: RA ROSALES Date of : 1960 Primary MD: Low Shirley Covering MD: Heather Quiroz Diagnosis: C79.51 - Secondary malignant neoplasm of bone (HCC) Treatment Site: PTV 1.1 LT SKULL MET Stereotactic Body Radiation Therapy (SBRT) Procedure Note Course: C1 Treatment Site Ref. ID Energy Dose/Fx (cGy) #Fx Dose Correction (cGy) Total Dose (cGy) Start Date End Date Elapsed Days SBRT PTV1.1 Lt Skull Met LtFrntSkull RP 6X-FFF 1,800 0 1,800 01/12/2024 01/12/2024 0 The patient presents today for the first of planned stereotactic body radiosurgery treatments.The patient was brought into the treatment room and immobilized on the treatment couch with a custom madestereotactic SecureVac cushion. A CBCT was then obtained and fused with the initial planning scan. This was reviewed in detail. Table shifts were carried out and repeat imaging was performed as necessary. Treatment was then delivered without difficulty or complication. Physician supervision was provided for the entire procedure. documented in this encounter Plan of Treatment Upcoming Encounters Date Type Department Care Team (Late st Contact Info) Description 09/11/2024 1:45 PM EST Office Visit [facility] [address] [place] [address] Swapnil Lopez MD [address] [place] [address] 10/21/2024 2:00 PM EST Appointment [facility] MRI [address] [place], [place] [id number] Jacky Shirley MD [address] [place] [address] 10/23/2024 1:45 PM EST Appointment [facility] [place] [address] Olena Darby APRN [address] [place] [id number] documented as of this encounter Goals Goal [...] documented as of this encounter Results * MRI BRAIN W [...] the ordering clinician. us Heather Quiroz MD IM MRI ORDERABLES Final Result documented in this encounter Visit Diagnoses Diagnosis Secondary malignant neoplasm of bone (HCC)- Primary Secondary malignant neoplasm of bone and bone marrow Secondary malignant neoplasm of bone (HCC) Secondary malignant neoplasm of bone and bone marrow documented in this encounter Additional Health Concerns Assessment Noted Time PHQ-9 Depression Total Score: 13 024 1:47 PM EDT PHQ-2 Depression Total Score: 3 12/29/19 24 1:47 PM EDT documented as of this encounter Care Teams Pre K Special Education Teacher Relationship Specialty Start Date End Date Damaso Black MD 1005 [facility] [address] [place] [address] PCP - General Family Medicine 11/22/22 Swapnil Lopez MD [address] [place] [phone] Internal Medicine-Gastroenterology 02/16/22 Darío Rubio MD 1 [facility] [place] [address] Internal Medicine-Medical Oncology 12/11/23 Mya Naranjo MD 1 [facility] [place] [address] Family Medicine - Hospice And Palliative Medicine 01/04/24 Ashley Ordonez APRN 1 [facility] [place] [address] Nurse Practitioner 01/04/24 Nicole Melendez, RN Registered Nurse 01/04/24 documented as of this encounter
--- OUTSIDE RECORDS SUMMARY | 2024-08-15 13:51 | XMS_ITS | Encounter Summary ---
Author Organization [place] [address] Care Team Providers Care Rail Detector Car Operator Name Role Phone Swapnil Lopez MD Unavailable [phone] Damaso Black MD Primary Care Provider [phone] Darío Rubio MD Unavailable [phone] Mya Naranjo MD Unavailable [phone] Ashley Ordonez APRN Unavailable [phone] Nicole Melendez RN Unavailable Unavailable Encounter Details Date Type Department Care Team (Late st Contact Info) Description 01/03/2024 Telephone Cancer Care Medical Oncology [place] [id number] Darío Rubio MD [address] [place] [address] Social History Tobacco Use Types Packs/Day Years [...] Telephone Encounter - Aislinn Viera RN - 01/03/2024 11:57 AM EDT POT for ribociclib and anastrazole placed. Meds released to specialty pharmacy. Patient had baseline EKG 12/18 and CBC/CMP 12/10. Patient able to start medications once approved. documented in this encounter Plan of Treatment Upcoming Encounters Date Type Department Care Team (Late st Contact Info) Description 09/11/2024 1:45 PM EST Office Visit [facility] [address] [place] [place] [facility] [place] [address] Swapnil Lopez MD [address] [place] [facility] [address] 10/21/2024 2:00 PM EST Appointment [facility] [address] [place], [place] [address] Jacky Shirley MD 1 [facility] [place] [address] 10/23/2024 1:45 PM EST Appointment [facility] [place] [address] Olena Darby APRN 1 [facility] [place] [address] documented as of this encounter Goals Goal [...] documented as of this encounter Care Teams Rail Detector Car Operator Relationship Specialty Start Date End Date Damaso Black MD 1005 [facility] 22 [place] [address] PCP - General Family Medicine 11/22/22 Swapnil Lopez MD [address] [place] [phone] Internal Medicine-Gastroenterology 02/16/22 Darío Rubio MD [address] [place] [address] [place] [address] Internal Medicine-Medical Oncology 12/11/23 Mya Naranjo MD [address] [place] [address] [place] [address] Family Medicine - Hospice And Palliative Medicine 01/04/24 Ashley Ordonez APRN 1 [facility] [place] [address] Nurse Practitioner 01/04/24 Nicole Melendez, RN Registered Nurse 01/04/24 documented as of this encounter
--- OUTSIDE RECORDS SUMMARY | 2024-08-15 13:51 | XMS_ITS | Encounter Summary ---
Author [place] [address] Care Team Providers Care Custodian Name Role Phone Swapnil Lopez MD Unavailable [phone] Damaso Black MD Primary Care Provider [phone] Darío Rubio MD Unavailable [phone] Mya Naranjo MD Unavailable [phone] Ashley Ordonez APRN Unavailable [phone] Nicole Melendez RN Unavailable Unavailable Encounter Details Date Type Department Care Team (Late st Contact Info) Description 01/05/2024 Telephone [facility] Care Medical Oncology [place] [phone] Darío Rubio MD [address] [place] [address] Social History Tobacco Use Types Packs/Day Years [...] Encounter - Nikky Virgen, Clerical Staff - 01/05/2024 3:11 PM EDTSummary: Cancel Ed, Can we cancel the pt's appt on 01/08 please? documented in this encounter Plan of Treatment Upcoming Encounters Date Type Department Care Team (Late st Contact Info) Description 09/11/2024 1:45 PM EST Office Visit [facility] [address] [place] [address] Swapnil Lopez MD [address] [place] [address] 10/21/2024 2:00 PM EST Appointment [facility] MRI [address] [place] [address] Jacky Shirley MD [address] [place] [address] [place] [address] 10/23/2024 1:45 PM EST Appointment [facility] [place], [place] [phone] Olena Darby APRN 1 [facility] [place] [address] documented as of this encounter Goals Goal [...] documented as of this encounter Care Teams Custodian Relationship Specialty Start Date End Date Damaso Black MD 1005 [facility] 22 [place] [address] PCP - General Family Medicine 11/22/22 Swapnil Lopez MD [address] [place] [address] Internal Medicine-Gastroenterology 02/16/22 Darío Rubio MD [address] [place] [address] [place] [address] Internal Medicine-Medical Oncology 12/11/23 Mya Naranjo MD [address] [place] [address] [place] [address] Family Medicine - Hospice And Palliative Medicine 01/04/24 Ashley Ordonez APRN 1 [facility] [place] [address] Nurse Practitioner 01/04/24 Nicole Melendez, RN Registered Nurse 01/04/24 documented as of this encounter
--- OUTSIDE RECORDS SUMMARY | 2024-08-15 13:51 | XMS_ITS | Encounter Summary ---
Author Organization [place] [address] Care Team Providers Care Feller Machine Operator Name Role Phone Swapnil Lopez MD Unavailable [phone] Damaso Black MD Primary Care Provider [phone] Darío Rubio MD Unavailable [phone] Encounter Details Date Type Department Care Team (Late st Contact Info) Description 01/03/2024 Orders Only [facility] Medical Oncology [place], [place] [phone] Mary Prieto, YON [address] [place], [place] [phone] Social History Tobacco Use Types Packs/Day Years [...] PM EST Office Visit [facility] [address] [place] [address] Swapnil Lopez MD 425 [place] [address] 10/21/2024 2:00 PM EST Appointment [facility] [address] [place] [address] Jacky Shirley MD [address] [place] [address] [place] [address] 10/23/2024 1:45 PM EST Appointment [facility] [place] [address] Olena Darby APRN [address] [place] [address] [place] [address] documented as of this encounter Goals Goal Patient Goal Type Associated Problems Recent Progress Patient-Stated? Author Breast Health Breast Health Mary Kate Vázqeuz, RN Note: Patient acknowledges understanding of new [...] documented as of this encounter Care Teams Feller Machine Operator Relationship Specialty Start Date End Date Damaso Black MD 1005 [facility] 22 [facility] [place] [address] PCP - General Family Medicine 11/22/22 Swapnil Lopez MD [address] [place] [address] Internal Medicine-Gastroenterology 02/16/22 Darío Rubio MD [address] [place] [address] [place] [address] Internal Medicine-Medical Oncology 12/11/23 documented as of this encounter
--- OUTSIDE RECORDS SUMMARY | 2024-08-15 13:51 | XMS_ITS | Encounter Summary ---
Author [place] [address] Care Team Providers Care Kids Activities Coach Name Role Phone Swapinl Lopez MD Unavailable Damaso Black MD Primary Care Provider [phone] Darío Rubio MD Unavailable [phone] Mya Naranjo MD Unavailable [phone] Ashley Ordonez APRN Unavailable [phone] Nicole Melendez RN Unavailable Unavailable Encounter Details Date Type Department Care Team (Late st Contact Info) Description 01/19/2024 Orders Only Cancer Care Medical Oncology [place] [phone] Darío Rubio MD [address] [place], [place] [phone] Invasive ductal carcinoma of breast, left (HCC) [...] PM EST Office Visit [facility] [address] [place] [address] Swapnil Lopez MD [address] [place] [address] 10/21/2024 2:00 PM EST Appointment [facility] MRI [address] [place] [address] Jacky Shirley MD 1 [facility] [place] [address] 10/23/2024 1:45 PM EST Appointment [facility] [place] [address] Olena Darby APRN [address] [place] [address] [place] [address] documented as of this encounter Goals Goal [...] 12:47 PM EDT [facility] Glucose Lvl 115(H) 70 - 99 mg/dL 01/23/2024 12:47 PM EDT [facility] BUN 9 8 - 23 mg/dL 01/23/2024 12:47 PM EDT [facility] Creatinine 0.99 0.51 - 1.30 mg/dL 01/23/2024 12:47 PM EDT [facility] Albumin 3.3 3.2 - 4.6 gm/dL 01/23/2024 12:47 PM EDT [facility] Total Protein 6.1(L) 6.4 - 8.3 gm/dL 01/23/2024 12:47 PM EDT [facility] Bili Total 0.4 0.2 - 1.3 mg/dL 01/23/2024 12:47 PM EDT [facility] ALT 10 <=41 U/L 01/23/2024 12:47 PM EDT [facility] AST 12 <=40 U/L 01/23/2024 12:47 PM EDT [facility] Alk Phos 101 36 - 123 U/L 01/23/2024 12:47 PM EDT [facility] eGFR (CKD-EPIcr 2020) 64 >=60 mL/min/1.7 3 m2 01/23/2024 12:47 PM EDT [facility] Comment:Estimated GFR was ca lculated using the CKD-EPIcr (2020) equation refit without race. The equation is recommended by the National Kidney Foundation - [place] Society of Nephrology Task Force. Blood VENOUS BLOOD / Unknown Venipuncture / Unknown 01/23/2024 10:58 AM EDT 01/23/2024 10:58 AM EDT us Darío Rubio MD CHEMISTRY ORDERABLES Final Res ult [facility], [address], [address] [place] [phone] [facility] [address] [place], [place] [address] * (ABNORMAL) CBC WITH DIFF (01/23/2024 10:58 AM EDT) WBC 3.7 3.7 - 10.3 x10(3)/mcL 01/23/2024 11:45 AM EDT [facility] RBC 4.08 3.90 - 5.20 x10(6)/mcL 01/23/2024 11:45 AM EDT [facility] Hgb 11.5 11.2 - 15.7 g/dL 01/23/2024 11:45 AM EDT [facility] Hct 36.5 34.0 - 45.0 % 01/23/2024 11:45 AM EDT [facility] MCV 89.5 80.0 - 100.0 fL 01/23/2024 11:45 AM EDT [facility] MCH 28.2 26.0 - 34.0 pg 01/23/2024 11:45 AM EDT [facility] MCHC 31.5 30.7 - 35.5 g/dL 01/23/2024 11:45 AM EDT [facility] RDW 13.2 <=14.9 % 01/23/2024 11:45 AM EDT [facility] Platelet 209 155 - 369 x10(3)/mcL 01/23/2024 11:45 AM EDT [facility] MPV 9.1 8.8 - 12.5 fL 01/23/2024 11:45 AM EDT [facility] Neut Percent 61.7 % 01/23/2024 11:45 AM EDT [facility] Comment:Neutrophils equals s egs plus bands Imm Gran% 0.3 % 01/23/2024 11:45 AM EDT [facility] Comment:Automated count of m etamyelocytes, myelocytes and promyelocytes. Lymph Percent 28.6 % 01/23/2024 11:45 AM EDT [facility] [place] Percent 6.7 % 01/23/2024 11:45 AM EDT [facility] Eos Percent 2.2 % 01/23/2024 11:45 AM EDT [facility] Baso Percent 0.5 % 01/23/2024 11:45 AM EDT [facility] Neut # 2.3 1.6 - 6.1 x10(3)/mcL 01/23/2024 11:45 AM EDT [facility] Comment:Neutrophils equals s egs plus bands IMMGRAN# 0.0 0.0 - 0.1 x10(3)/mcL 01/23/2024 11:45 AM EDT [facility] Comment:Automated count of m etamyelocytes, myelocytes and promyelocytes. An absolute IG <0.1 is reported as 0.0. Lymph # 1.1(L) 1.2 - 3.9 x10(3)/mcL 01/23/2024 11:45 AM EDT [facility] [place] # 0.3 0.3 - 0.9 x10(3)/mcL 01/23/2024 11:45 AM EDT [facility] Eos# 0.1 0.0 - 0.5 x10(3)/mcL 01/23/2024 11:45 AM EDT [facility] Baso # 0.0 0.0 - 0.1 x10(3)/mcL 01/23/2024 11:45 AM EDT [facility] Blood VENOUS BLOOD / Unknown Venipuncture / Unknown 01/23/2024 10:58 AM EDT 01/23/2024 10:58 AM EDT us Darío Rubio MD HEMATOLOGY ORDERABLES Final Re sult [facility] [address] [facility] [place] [address] [place] [address] documented in this encounter Visit Diagnoses Diagnosis Invasive ductal carcinoma of breast, left (HCC)- Primary documented in this encounter Additional Health Concerns Assessment Noted Time PHQ-9 Depression Total Score: 13 024 1:47 PM EDT PHQ-2 Depression Total Score: 3 12/29/19 24 1:47 PM EDT documented as of this encounter Care Teams Kids Activities Coach Relationship Specialty Start Date End Date Damaso Black MD 1005 [facility] [address] [place] [address] PCP - General Family Medicine 11/22/22 Swapnil Lopez MD [address] [place] [address] Internal Medicine-Gastroenterology 02/16/22 Darío Rubio MD [address] [place] [address] Internal Medicine-Medical Oncology 12/11/23 Mya Naranjo MD [address] [place] [address] Family Medicine - Hospice And Palliative Medicine 01/04/24 Ashley Ordonez APRN 1 [place] [address] Nurse Practitioner 01/04/24 Nicole Melendez, RN Registered Nurse 01/04/24 documented as of this encounter
--- OUTSIDE RECORDS SUMMARY | 2024-08-15 13:51 | XMS_ITS | Encounter Summary ---
Author Organization [place] [address] Care Team Providers Care Field Crop Farm Worker Name Role Phone Swapnil Lopez MD Unavailable [phone] Damaso Black MD Primary Care Provider [phone] Darío Rubio MD Unavailable [phone] Mya Naranjo MD Unavailable [phone] Ashley Ordonez APRN Unavailable [phone] Nicole Melendez RN Unavailable Unavailable Reason for Visit * Reason Onset Date Comments Medication Management 01/03/2024 Questions about meds Encounter Details Date Type Department Care Team (Late st Contact Info) Description 01/03/2024 Telephone Cancer Care Medical Oncology [place] [phone] Darío Rubio MD [address] [place] [address] Medication Management (Questions about meds) Social History Tobacco Use Types Packs/Day Years [...] encounter Miscellaneous Notes * Telephone Encounter - Ivory Mesa RPH - 01/04/2024 3:44 PM EDT See Specialty Pharmacy encounter dated 01/04/24 for updates on Kisqali. Ally Mesa PharmD, [facility], [facility] Oncology Pharmacist 01/04/2024 3:45 PM * Telephone Encounter - Elizabeth Gutierrez PharmD - 01/04/2024 8:58 AM EDT Good Morning... forwarding message to our oncology specialty pharmacy team for question about specialty med warehouse order picker.. Thank you! * Telephone Encounter - Aislinn Viera RN - 01/03/2024 4:38 PM EDT Called and spoke to patient about meds to take. Patient's meloxicam has so told her not to take that. Discussed that she is to start taking the anastrazole and the ribociclib. Her anastrazolewas sent to [facility] and her ribociclib was sent to the specialty pharmacy. Will route in pharmacyto clarify and make sure there is nothing needed prior to warehouse order picker. Discussed with patient that once she has her meds we will need to know the start date to schedule her lab work and EKGs needed during the first couple months of the regimen. Will reach out to patientwith clarification. * Telephone Encounter - Yaa Canchola, Clerical Staff - 01/03/2024 4:08 PM EDT Reason for call: Patient called with questions over which medications she should be taking. Asked about Meloxicam, Arimidex and Ribociclib. Please call her to clarify. Preferred call back number:[phone] documented in this encounter Plan of Treatment Upcoming Encounters Date Type Department Care Team (Late st Contact Info) Description 09/11/2024 1:45 PM EST Office Visit [facility] [address] [place] [address] Swapnil Lopez MD 425 [place] [address] 10/21/2024 2:00 PM EST Appointment [facility] MRI [address] [place] [address] Jacky Shirley MD [address] [place] [address] [place] [address] 10/23/2024 1:45 PM EST Appointment [facility] [address] [place] [address] Olena Darby APRN 1 [facility] [place] [address] documented as of this encounter [...] as of this encounter Care Teams Field Crop Farm Worker Relationship Specialty Start Date End Date Damaso Black MD 1005 [facility] [address] [place] [address] PCP - General Family Medicine 11/22/22 Swapnil Lopez MD [address] [place] [address] Internal Medicine-Gastroenterology 02/16/22 Darío Rubio MD [address] [place] [address] [place] [address] Internal Medicine-Medical Oncology 12/11/23 Mya Naranjo MD [address] [place] [address] [place] [address] Family Medicine - Hospice And Palliative Medicine 01/04/24 Ashley Ordonez APRN [address] [place] [address] [place] [address] Nurse Practitioner 01/04/24 Nicole Melendez, RN Registered Nurse 01/04/24 documented as of this encounter
--- OUTSIDE RECORDS SUMMARY | 2024-08-15 13:51 | XMS_ITS | Encounter Summary ---
Author Organization [place] [address] Care Team Providers Care Sewing Machine Operator Plastic Zipper Name Role Phone Swapnil Lopez MD Unavailable [phone] Damaso Black MD Primary Care Provider [phone] Jeremías Amin MD Unavailable [phone] Mya Naranjo MD Unavailable [phone] Ashley Ordonez APRN Unavailable [phone] Nicole Melendez RN Unavailable Unavailable Reason for Visit * Reason Onset Date Comments Follow-up 01/12/2024 Encounter Details Date Type Department Care Team (Late st Contact Info) Description 01/12/2024 Telephone [facility] [place] [address] Jeremías Amin MD [address] [place], [place] [phone] Follow-up Social History Tobacco Use Types Packs/Day Years [...] encounter Miscellaneous Notes * Telephone Encounter - Teresa Day RN - 01/12/2024 3:39 PM EDT Confirmed w/ patient that she started Kisquali on 01/09/24. Already scheduled for lab, MD BOWLES on 01/22.Discussed walk in EKG visit 3A entrance prior to MD BOWLES. She VU. documented in this encounter Plan of Treatment Upcoming Encounters Date Type Department Care Team (Late st Contact Info) Description 09/11/2024 1:45 PM EST Office Visit [facility] [address] [place] [address] Swapnil Lopez MD [address] [place] [address] 10/21/2024 2:00 PM EST Appointment [facility] MRI [address] [place], [place] [address] Jacky Shirley MD 1 [place] [address] 10/23/2024 1:45 PM EST Appointment [facility] [place] [address] Olena Darby APRN 1 [facility] [place] [address] documented as of this encounter Goals Goal [...] ideal body weight General No Linda Walden, SHANNON documented as of this encounter Results * EK EKG 12 LEAD (01/23/2024 11:47 AM EDT) Anatomical Region Laterality Modality Electrocardiogra phy 01/23/2024 12:0 1 PM EDT Impressions 01/24/2024 2:19 PM EDT ?[place] ? Test Date: ?2024-01-23 Pat Name: ? RA ROSALES ?Department: ?? DEPID ? Room: ? Gender: ? Female ? Private Security Guard: ?? Am : ?1960 ? Requested By: JEREMÍAS AMIN Order Number: [id number] ?Reading MD: ?? Kirk Rivera ? Measurements Intervals ?[place] ? Rate: ? 64 ? P: ? SD: ?QRS: ?25 QRSD: ? 82 ? T: ?29 QT: ? 396 ? QTc: ?409 ? Interpretive Statements Sinus RHYTHM with short SD interval Electronically Signed On 01-24-2024 14:19:35 EDT by Kirk Rivera Narrative Procedure Note Kirk Rivera MD - 01/24/[address] [facility] Test Date: 2024-01-23 Pat Name: RA ROSALES Department: DEPID Room: Gender: Female Private Security Guard: Connie : 1960 Requested By: JEREMÍAS AMIN Order Number: [id number] Reading MD: Kirk Rivera Measurements Intervals [place] Rate: 64 P: SD: QRS: 25 QRSD: 82 T: 29 QT: 396 QTc: 409 Interpretive Statements Sinus RHYTHM with short SD interval Electronically Signed On 01-24-2024 14:19:35 EDT by Kirk Rivera us Jeremías Amin MD IMG ECG ORDERABLES Final Resul t documented in this encounter Visit Diagnoses Diagnosis Invasive ductal carcinoma of breast, left (HCC)- Primary Invasive ductal carcinoma of breast, left (HCC) documented in this encounter Additional Health Concerns Assessment Noted Time PHQ-9 Depression Total Score: 13 024 1:47 PM EDT PHQ-2 Depression Total Score: 3 12/29/19 24 1:47 PM EDT documented as of this encounter Care Teams Sewing Machine Operator Plastic Zipper Relationship Specialty Start Date End Date Damaso Black MD 1005 [facility] [address] [place] [address] PCP - General Family Medicine 11/22/22 Swapnil Lopez MD [address] [place] [address] Internal Medicine-Gastroenterology 02/16/22 Jeremías Amin MD [address] [place] [address] [place] [address] Internal Medicine-Medical Oncology 12/11/23 Mya Naranjo MD [address] [place] [address] [place] [address] Family Medicine - Hospice And Palliative Medicine 01/04/24 Ashley Ordonez APRN 1 [facility] [place] [address] Nurse Practitioner 01/04/24 Nicole Melendez, RN Registered Nurse 01/04/24 documented as of this encounter
--- OUTSIDE RECORDS SUMMARY | 2024-08-15 13:51 | XMS_ITS | Encounter Summary ---
Author [place] [address] Care Team Providers Care Chief Diversity Officer Name Role Phone Swapnil Lopez MD Unavailable Damaso Black MD Primary Care Provider [phone] Darío Rubio MD Unavailable [phone] Mya Naranjo MD Unavailable [phone] Ashley Ordonez MANAGER PSYCHOLOGY Unavailable [phone] Nicole Melendez RN Unavailable Unavailable Aislinn Viera RN Unavailable Unavailable Ronit Conner RN Unavailable Unavailable Armando Vieira VENTILATION EQUIPMENT TENDER Unavailable Unavailable Vicki Amato RN Unavailable UnavailTrinh Soto MANAGER PSYCHOLOGY Unavailable [phone] Selina Olsen MANAGER PSYCHOLOGY Unavailable [phone] Veda Mcfarland Clerical Staff Unavailable U navailable Encounter Details Date Type Department Care Team (Late st Contact Info) Description 01/06/2024 [facility] Adult [facility] 1 [place] [phone] Arabella Raya MD [address] [place], [place] [phone] Social History Tobacco Use Types Packs/Day Years [...] days. MAX of 10 tablets per day 100 Tablet 01/07/2024 documented in this encounter Miscellaneous Notes * Telephone Encounter - Arabella Raya MD - 01/06/2024 10:55 AM EDT Received call from supervisor residential stating that [facility] it aftercalling her previous pain clinic. Patient requested that it be re-sent to [facility] in [place]. Since the rx had already been sent for fill tomorrow, I thought it reasonable to re-send today as this was not a typical after hours request. mergers and acquisitions attorney notified. documented in this encounter Plan of Treatment Upcoming Encounters Date Type Department Care Team (Late st Contact Info) Description 09/11/2024 1:45 PM EST Office Visit [facility] [address] [facility], [place] [phone] Swapnil Lopez MD [address] [place] [address] 10/21/2024 2:00 PM EST Appointment [facility] MRI [address] [facility] [address] Jacky Shirley MD [address] [place] [address] [facility] [place] [facility], [place] [phone] 10/23/2024 1:45 PM EST Appointment [facility] [place], [place] [phone] Olena Darby APRN [address] [place] [phone] documented as of this encounter Goals Goal [...] of 10 tablets per day Reorder 01/07/2024 01/06/2024 documented as of this encounter Additional Health Concerns Assessment Noted Time PHQ-9 Depression Total Score: 13 024 1:47 PM EDT PHQ-2 Depression Total Score: 3 12/29/19 24 1:47 PM EDT documented as of this encounter Care Teams Chief Diversity Officer Relationship Specialty Start Date End Date Damaso Black MD 1005 [facility] [address] [place] [address] PCP - General Family Medicine 11/22/22 Swapnil Lopez MD [address] [place] [address] Internal Medicine-Gastroenterology 02/16/22 Darío Rubio MD [address] [place] [address] [place] [address] Internal Medicine-Medical Oncology 12/11/23 Mya Naranjo MD [address] [place] [address] [place] [address] Family Medicine - Hospice And Palliative Medicine 01/04/24 Ashley Ordonez APRN [address] [place] [address] [place] [address] Nurse Practitioner 01/04/24 Nicole Melendez, RN Registered Nurse 01/04/24 Aislinn Viera, RN Registered Nurse 02/07/24 Ronit Conner, RN Registered Nurse 04/10/24 Armando Vieira MSW Pharmacovigilance Scientist 04/10/24 Vicki Amato, RN Registered Nurse 04/10/24 Trinh Bullock APRN [address] [facility] [place] [address] Nurse Practitioner Nurse Practitioner-Family 04/10/24 Selina Olsen APRN [address] [facility] [place] [address] Nurse Practitioner 04/10/24 Veda Mcfarland, Clerical Staff 05/14/24 documented as of this encounter
--- OUTSIDE RECORDS SUMMARY | 2024-08-15 13:51 | XMS_ITS | Encounter Summary ---
Author Organization [facility] [place] [place] [address] Care Team Providers Care Pensionholder Information Clerk Name Role Phone Swapnil Lopez MD Unavailable [phone] Damaso Black MD Primary Care Provider [phone] Darío Rubio MD Unavailable Mya Naranjo MD Unavailable [phone] Ashley Ordonez APRN Unavailable [phone] Nicole Melendez RN Unavailable Unavailable Encounter Details Date Type Department Care Team (Latest Contact Info) Description 01/18/2024 Travel Social History Tobacco Use Types Packs/Day [...] PM EST Office Visit [facility] [address] [place] [address] Swapnil Lopez MD [address] [place] [address] 10/21/2024 2:[address] [facility] MRI [address] [place] [address] Jacky Shirley MD [address] [place] [address] [place] [address] 10/23/2024 1:45 PM EST Appointment [facility] [place] [address] Olnea Darby APRN [address] [place] [address] documented as of this encounter Goals [...] documented as of this encounter Care Teams Pensionholder Information Clerk Relationship Specialty Start Date End Date Damaso Black MD [address] [facility] [address] [place] [address] PCP - General Family Medicine 11/22/22 Swapnil Lopez MD [address] [place] [address] Internal Medicine-Gastroenterology 02/16/22 Darío Rubio MD [address] [facility] [place] [address] Internal Medicine-Medical Oncology 12/11/23 Mya Naranjo MD [address] [facility] [place] [address] Family Medicine - Hospice And Palliative Medicine 01/04/24 Ashley Ordonez APRN [address] [facility] [place] [place] [address] Nurse Practitioner 01/04/24 Nicole Melendez, RN Registered Nurse 01/04/24 documented as of this encounter
--- OUTSIDE RECORDS SUMMARY | 2024-08-15 13:51 | XMS_ITS | Encounter Summary ---
Author Organization [place] Address [facility] [place] [address] Care Team Providers Care Body Shop Worker Name Role Phone Swapnil Lopez MD Unavailable [phone] Damaso Black MD Primary Care Provider [phone] Darío Rubio MD Unavailable [phone] Mya Naranjo MD Unavailable [phone] Ashley Ordonez MEDICAL ASSISTANT DERMATOLOGY Unavailable [phone] Nicole Melendez RN Unavailable Unavailable Aislinn Viera RN Unavailable Unavailable Ronit Conner RN Unavailable Unavailable Armando Vieira INSIDE STEWARD/STEWARDESS Unavailable Unavailable Vicki Amato RN Unavailable UnavailTrinh Soto MEDICAL ASSISTANT DERMATOLOGY Unavailable [phone] Selina Olsen MEDICAL ASSISTANT DERMATOLOGY Unavailable [phone] Veda Mcfarland Clerical Staff Unavailable U navailable Encounter Details Date Type Department Care Team (Late st Contact Info) Description 01/12/2024 Lab Requisition [facility] [place] [address] Provider, Unknown Malignant neoplasm of unspecified site of left female breast (HCC) Social History Tobacco Use Types Packs/Day [...] 11:13 AM LUCÍA Gabby Mercedes SHANNON * Does this person have serious difficulty walking or climbing stairs? Answer Date of Assessment Author No 09/05/2017 11:13 AM Gabby De La Garza SHANNON * Does this person have difficulty dressing or bathing? Answer Date of Assessment Author No 09/05/2017 11:13 AM LUCÍA Gabby MercedesSHANNON * Because of a physical, mental or [...] PM EST Office Visit [facility] [address] [place] [place] [address] Swapinl Lopez MD [address] [facility] [address] 10/21/2024 2:00 PM EST Appointment [facility] MRI [address] [place] [address] Jacky Shirley MD [address] [place] [address] [place] [address] 10/23/2024 1:45 PM EST Appointment [facility] [place] [address] Olena Darby APRN 1 [facility] [address] documented as of this encounter Goals Goal [...] Procedure Name Priority Date/Time Associated Diagnosis Comments MISC AP TEST Routine 01/12/2024 1:57 PM EDT Malignant neoplasm of unspecified site of left female breast (HCC) documented in this encounter Results * MISC AP TEST (01/12/2024 1:57 PM EDT) CASE REPORT Surgical Pathology Report ? Case: [id number] ? Authorizing Provider: ??Provider, Unknown ?Collected: ? 01/12/2024 1357 ? Ordering Location: ? [facility] ? Received: ?01/12/2024 1358 ? Pathologist: ? Tika Mc MD ? Specimen: ?Breast, Left, Request for case [id number] slides to [facility] for Tumor Board ? 01/12/2024 2:07 PM EDT [facility] FINAL DIAGNOSIS Case sent for tumor board presentation. 01/12/2024 2:07 PM EDT [facility] DDED IMAGES 01/12/2024 2:07 PM EDT [facility] Tissue LEFT BREAST STRUCTURE / Unknown 01/12/2024 1:57 PM EDT 01/12/2024 1:58 PM EDT us Unknown Provider PATHOLOGY ORDERABLES Final Resu lt Performing Organization Address City/State/[facility] Co de Phone Number [facility] [address] [place] [address] documented in this encounter Visit Diagnoses Diagnosis Malignant neoplasm of unspecified site of left female breast (HCC) documented in this encounter Additional Health Concerns Assessment Noted Time PHQ-9 Depression Total Score: 13 024 1:47 PM EDT PHQ-2 Depression Total Score: 3 12/29/19 24 1:47 PM EDT documented as of this encounter Care Teams Body Shop Worker Relationship Specialty Start Date End Date Damaso Black MD 100[address] [facility] [address] [place] [address] PCP - General Family Medicine 11/22/22 Swapnil Lopez MD [address] [place] [address] Internal Medicine-Gastroenterology 02/16/22 Darío Rubio MD [address] [place] [address] Internal Medicine-Medical Oncology 12/11/23 Mya Naranjo MD [address] [facility] [place] [address] Family Medicine - Hospice And Palliative Medicine 01/04/24 Ashley Ordonez APRN [address] [facility] [place] [address] Nurse Practitioner 01/04/24 Nicole Melendez, RN Registered Nurse 01/04/24 Aislinn Viera, RN Registered Nurse 02/07/24 Ronit Conner, RN Registered Nurse 04/10/24 Armando Vieira MSW Senior Net Software Engineer 04/10/24 Vicki Amato, RN Registered Nurse 04/10/24 Trinh Bullock APRN [address] [facility] [place] [address] Nurse Practitioner Nurse Practitioner-Family 04/10/24 Selina Olsen APRN [address] [facility] [place] [address] Nurse Practitioner 04/10/24 Veda Mcfarland, Clerical Staff 05/14/24 documented as of this encounter
--- OUTSIDE RECORDS SUMMARY | 2024-08-15 13:51 | XMS_ITS | Encounter Summary ---
Author Organization [facility] Address [address] [place] [address] Care Team Providers Care Development Architect Name Role Phone Swapnil Lopez MD Unavailable [phone] Damaso Black MD Primary Care Provider [phone] Darío Rubio MD Unavailable [phone] yMa Naranjo MD Unavailable [phone] Aslhey Ordonez APRN Unavailable [phone] Nicole Melendez RN Unavailable Unavailable Reason for Visit * Reason Onset Date Comments Medication Refill 01/21/2024 Encounter Details Date Type Department Care Team (Late st Contact Info) Description 01/21/2024 Refill [facility] [address] [place] [address] Swapnil Lopez MD [address] [place] [address] Medication Refill Social History Tobacco [...] 8 TABLETS PER DAY 240 Tablet 3 01/22/2024 4 documented in this encounter Plan of Treatment Upcoming Encounters Date Type Department Care Team (Late st Contact Info) Description 09/11/2024 1:45 PM EST Office Visit [facility] [address] [facility] [place] [address] Swapnil Lopez MD [address] [place] [address] 10/21/2024 2:00 PM EST Appointment [facility] [address] [place] [address] Jacky Shirley MD 1 [facility] [place] [address] 10/23/2024 1:45 PM EST Appointment [facility] [address] [place], [place] [id number] Olena Darby, YON 1 [facility] [place], [place] [id number] documented as of this encounter Goals Goal [...] MORE THAN 8 TABLETS PER DAY Reorder 03/06/2023 01/21/2024 documented as of this encounter Additional Health Concerns Assessment Noted Time PHQ-9 Depression Total Score: 13 024 1:47 PM EDT PHQ-2 Depression Total Score: 3 12/29/19 24 1:47 PM EDT documented as of this encounter Care Teams Development Architect Relationship Specialty Start Date End Date Damaso Black MD [address] [place] [address] PCP - General Family Medicine 11/22/22 Swapnil Lopez MD [address] [place] [address] Internal Medicine-Gastroenterology 02/16/22 Darío Rubio MD [address] [facility] [place] [address] Internal Medicine-Medical Oncology 12/11/23 Mya Naranjo MD [address] [facility] [place] [address] Family Medicine - Hospice And Palliative Medicine 01/04/24 Ashley Ordonez APRN [address] [facility] [place] [address] Nurse Practitioner 01/04/24 Nicole Melendez, RN Registered Nurse 01/04/24 documented as of this encounter
--- OUTSIDE RECORDS SUMMARY | 2024-08-15 13:51 | XMS_ITS | Encounter Summary ---
Author Organization [facility] [place] [address] Care Team Providers Care Flat Bed Knitter Name Role Phone Swapnil Lopez MD Unavailable [phone] Damaso Black MD Primary Care Provider [phone] Darío Rubio MD Unavailable [phone] Encounter Details Date Type Department Care Team (Latest Contact Info) Description 01/03/2024 Travel Social History Tobacco Use Types Packs/Day [...] PM EST Office Visit [facility] [address] [facility] [place] [address] Swapnil Lopez MD [address] [place] [address] 10/21/2024 2:00 PM EST Appointment [facility] MRI [address] [place] [address] Jacky Shirley MD [address] [place] [address] CANCER [place], [place] [id number] 10/23/2024 1:45 PM EST Appointment [facility] [place] [address] Olena Darby APRN [address] [place] [address] [place] [address] documented as of this encounter [...] documented as of this encounter Care Teams Flat Bed Knitter Relationship Specialty Start Date End Date Damaso Black MD 1005 [facility] [address] [place] [address] PCP - General Family Medicine 11/22/22 Swapnil Lopez MD [address] [place] [address] Internal Medicine-Gastroenterology 02/16/22 Darío Rubio MD [address] [place] [address] [place] [address] Internal Medicine-Medical Oncology 12/11/23 documented as of this encounter
--- OUTSIDE RECORDS SUMMARY | 2024-08-15 13:51 | XMS_ITS | Encounter Summary ---
Author [place] [address] Care Team Providers Care Disposition Clerk Name Role Phone Swapnil Lopez MD Unavailable [phone] Damaso Black MD Primary Care Provider [phone] Darío Rubio MD Unavailable [phone] Mya Naranjo MD Unavailable [phone] Ashley Ordonez APRN Unavailable [phone] Nicole Melendez RN Unavailable Unavailable Reason for Referral * MRI/CAT Scan (Routine) - Authorization Not Needed Specialty Diagnoses / Procedures Referred By Contac t Referred To Contact Radiology Diagnoses Secondary malignant neoplasm of bone (HCC) Procedures CT HEAD RADIATION THERAPY PLANNING WO CONTRAST Jacky Shirley MD [address] [place] [address] [place] [address] Phone: tel: fax: [facility] [place] [address] Phone: tel: fax: Referral ID Status Reason Start Date Expiration Date Visits Requested Visits Authorized [id number] Authorization Not Needed 01/05/2024 01/04/2025 1 1 Reason for Visit * Reason Comments Consult Metastatic breast ca ncer * Consultation (Emergency) - Pending Review Specialty Diagnoses / Procedures Referred By Contac t Referred To Contact Diagnoses Invasive ductal carcinoma of breast, left (HCC) Darío Rubio MD [address] [place] [address] Phone: tel: fax: Jacky Shirley MD [address] [place] [address] [place] [address] Phone: tel: fax: Referral ID Status Reason Start Date Expiration Date V isits Requested Visits Authorized [id number] Pending Review 12/29/2023 12/28/2024 1 1 Encounter Details Date Type Department Care Team (Latest Contact Info) Description 01/05/2024 9:24 AM EDT - 01/05/2024 11:29 AM EDT Hospital Encounter [facility] [place] [address] Jacky Shirley MD [address] [place] [address] Secondary malignant neoplasm of bone (HCC) (Primary [...] Sign Reading Time Taken Comments Blood Pressure 117/74 01/05/2024 9:44 AM EDT Pulse 82 01/05/2024 9:44 AM EDT Temperature 36.6 ??C (97.8 ??F) 01/05/2024 9:44 AM ED T Respiratory Rate 18 01/05/2024 9:44 AM EDT Oxygen Saturation 100% 01/05/2024 9:44 AM EDT Inhaled Oxygen Concentration - - Weight 58.1 kg (128 lb) 01/05/2024 9:44 AM EDT Height 157.5 cm (5' 2 ) 01/05/2024 9:44 AM EDT Body Mass Index 23.41 01/05/2024 9:44 AM EDT documented in this [...] Progress Notes * Jacky Shirley MD - 01/05/2024 9:30 AM EDT Images from the original note were not included. RADIATION ONCOLOGY NEW PATIENT VISIT 01/05/2024 Chief Complaint Patient presents with Consult Metastatic breast cancer DIAGNOSIS: Cancer Staging Invasive ductal carcinoma of breast, left (HCC) Staging form: Breast, AJCC 8th Edition - Clinical stage from 11/13/2023: Stage IIA (cT2, cN1, cM0, G2, ER+, CT+, HER2-) - Signed by Ian Ruiz MD [...] 67 gene panel testing results were negative. HISTORY OF PRESENT ILLNESS: Marleni Way is a 63 y.o. female seen in consultation at the request of Dr. Rubio regarding the patient's diagnosis of metastatic breast cancer. As she now Marleni is a kind 63-year-old woman who is very active and noted some abnormality or lumps or bumps in the axilla and sought medical evaluation which demonstrated significant burden of stephie disease in the axilla and supraclavicular fossa she underwent biopsy which proved positive for breast malignancy with additional mammography and biopsy proving the primary lesion. Systemic staging unfortunately demonstrated a solitary metastatic lesion in the left frontal bone without LATEXER metastasis. She sought evaluation closer to home in [place] and received very different opinion regarding hercare which really focused on comfort care. Today she is here with her family she is feeling well outside of the headaches and occasional nausea. PAST HISTORY: Past Medical History: Diagnosis Date Anemia Breast cancer (HCC) Cancer (HCC) Crohn disease (HCC) Encounter for blood transfusion Lab test positive for detection of COVID-19 virus 02/12/2021 02/16/21=pt stated that she tested COVID positive on 02/12/21 @ [facility], instructed pt to notify Dr Lantigua's office to reschedule surgery Patient Active Problem List Diagnosis Date Noted Palliative care by specialist 12/29/2023 Cancer related [...] (HCC) Crohn's History of stomach cancer Depression Past Surgical History: Procedure Laterality Date ANTERIOR COMPARTMENT DECOMPRESSION Left 04/15/2021 LEFT DEQUERVAINS RELEASE ; Surgeon: Henry Lantigua MD; Location: [facility]; Service: Hand BREAST BIOPSY Left 10/26/2023 2:00 BREAST BIOPSY Left 10/26/2023 axilla node SECTION x2 COLON SURGERY x11 crohns COLONOSCOPY COLOSTOMY ILEOSTOMY OR JEJUNOSTOMY UPPER GASTROINTESTINAL ENDOSCOPY N/A 06/25/2016 ESOPHAGOGASTRODUODENOSCOPY with biopsy with conscious sedation; Surgeon: Christopher Matthews MD PHD; Location: [facility] END[facility]COPY; Service: Endoscopy Family History Problem Relation Age of Onset Heart Disease Father Social History Tobacco Use Smoking status: Never Smokeless tobacco: Never Substance Use Topics Alcohol use: Not Currently Current Outpatient Medications on File Prior to Encounter Medication Sig Dispense Refill diphenoxylate-atropine (LOMOTIL) 2.5-0.025 mg Oral Tablet TAKE 2 TABLETS BY MOUTH FOUR TIMES DAILY NEEDED. NO MORE THAN 8 TABLETS PER DAY 240 Tablet 3 loperamide (IMODIUM) 2 mg Oral Capsule TAKE 1 CAPSULE BY MOUTH EVERY 3 HOURS 200 Capsule 0 promethazine (PHENERGAN) 25 mg Oral Tablet Take [...] by 7 days off. 63 Tablet 0 predniSONE (DELTASONE) 10 mg Oral Tablet Take 1 Tablet by mouth daily. 112 Tablet 1 No current facility-administered medications on file prior to encounter. Allergies Allergen Reactions Kygmz-Uqaul-5-Bpi-Zya-Wkfmyz Hives Sulfa (Sulfonamide Antibiotics) Radiation History: no ADDITIONAL RADIATION ISSUES ISSUES ADDRESSED: Child Bearing Status Addressed: Yes, no additional tests needed. Nutritional Needs Addressed: Yes, nutritional consult needed. REVIEW OF SYSTEMS: Review of Systems Constitutional: Positive for activity change and fatigue. Negative for appetite change, chills, diaphoresis, fever and unexpected weight change. HENT: Negative. Eyes: Negative. Respiratory: Negative for cough, shortness of breath and wheezing. Cardiovascular: Positive for leg swelling. Negative for chest pain and palpitations. Gastrointestinal: Positive for abdominal pain (alway have that from having chrons), diarrhea and nausea. Negative for constipation and vomiting. Endocrine: Negative. Genitourinary: Negative. Musculoskeletal: Positive for myalgias (has joint pain always from chrons). Rt ankle swollen from recent strain Skin: Negative. Allergic/Immunologic: Negative. Neurological: Positive for dizziness, syncope, light-headedness and headaches. Negative for tremors, seizures, facial asymmetry, speech difficulty, weakness and numbness. Hematological: Bruises/bleeds easily (bruising easily). Psychiatric/Behavioral: Negative for confusion, decreased concentration, dysphoric mood and sleep disturbance. The patient is nervous/anxious (due to dx). PHYSICAL EXAM: BP 117/74 (BP Location: Left arm, Patient Position: Sitting) Pulse 82 Temp 97.8 ??F (36.6 ??C) (Forehead) Resp 18 Ht 5' 2 (1.575 m) Wt 128 lb (58.1 kg) SpO2 100% BMI 23.41 kg/m?? ECOG: (0) Fully active, able to carry on all predisease performance without restriction Physical Exam Vitals reviewed. Constitutional: General: She is not in acute distress. Appearance: She is well-developed. She is not diaphoretic. HENT: Head: Normocephalic and atraumatic. Right Ear: External ear normal. Left Ear: External ear normal. Nose: Nose normal. Eyes: General: No scleral icterus. Right eye: No discharge. Left eye: No discharge. Conjunctiva/sclera: Conjunctivae normal. Cardiovascular: Rate and Rhythm: Normal rate and regular rhythm. Heart sounds: Normal heart sounds. No murmur heard. No gallop. Pulmonary: Effort: Pulmonary effort is normal. No respiratory distress. Breath sounds: Normal breath sounds. No wheezing or rales. Abdominal: General: There is no distension. Palpations: Abdomen is soft. There is no mass. Tenderness: There is no abdominal tenderness. There is no guarding or rebound. Musculoskeletal: General: Tenderness (Scalp with palpable abnormality) present. No deformity. Normal range of motion. Cervical back: Normal range of motion and neck supple. Lymphadenopathy: Head: Right side of head: No submental, submandibular, tonsillar, preauricular, posterior auricular or occipital adenopathy. Left side of head: No submental, submandibular, tonsillar, preauricular, posterior auricular or occipital adenopathy. Cervical: No cervical adenopathy. Right cervical: No superficial, deep or posterior cervical adenopathy. Left cervical: No superficial, deep or posterior cervical adenopathy. Upper Body: Right upper body: No supraclavicular or pectoral adenopathy. Left upper body: No supraclavicular or pectoral adenopathy. Skin: General: Skin is warm and dry. Coloration: Skin is not pale. Findings: No erythema or rash. Neurological: Mental Status: She is alert and oriented to person, place, and time. Cranial Nerves: No cranial nerve deficit. Psychiatric: Behavior: Behavior normal. Thought Content: Thought content normal. Judgment: Judgment normal. LABS: Labs personally reviewed. IMAGING: Images personally reviewed. ASSESSMENT/PLAN: The plan of care for pain includes the following Interventions: Patient and/or family education Psychological support Marleni Way was seen today for consult. Diagnoses and all orders for this visit: Secondary malignant neoplasm of bone (HCC) - CT HEAD RADIATION THERAPY PLANNING WO CONTRAST; Future This is a kind 61-year-old woman with oligometastatic hormonally driven left- sided breast cancer. She has a symptomatic skull metastasis is the only area of measurable disease. I had a long discussion with the patient and her family regarding diagnosis prognosis and treatment options. We discussed moderate care of breast cancer. We discussed role of systemic therapy specific hormonal therapy and the role of radiosurgery in metastasectomy. We discussed potential management of the primary diseasein the breast and stephie regions based on systemic response of disease. Additionally we discussed the nuts and bolts of radiotherapy. We discussed CT simulation mask immobilization and single fraction of fractionated radiosurgery targeting the solitary metastasis with anablative dose. We discussed acute and late toxicities of radiosurgery to the skull including fatigue, cerebral edema, low risk of radionecrosis, skin irritation, hair loss, fatigue. At the completion of our discussion the patient and her family voiced a good understanding. They live significant distance from [facility] to try to do her radiation treatment planning today with treatment to begin shortly thereafter. Will plan to coordinate her care with Dr. Rubio of medical oncology. It is a pleasure to take part in the care of this kind woman and her family. Sincerely, Jacky Shirley MD * Cheryl Hoyos RN - 01/05/2024 9:30 AM EDT Patient was seen today by Dr. Shirley in consult for Skull met . Recommended treatment with SBRT radiation therapy. CT Simulation to be done/scheduled today, added on 01/05/24 without contrast. NPO is not required. Creatinine is not required. Mask is required. Test does not need to be done prior. Treatment to be done without breath hold Patient elects for treatment at the [place] location. Provided patient with new patient folder and reviewed contents inside folder. Including radiation side effects,educational handouts specific to patient's diagnosis, and Cancer Care handout listing resources. Reviewed requirement 48-72 hours for medication refill requests. Patient was able to verbalize understanding and repeat teaching. Reviewed phone number to call [phone] Option 1 with any questions and/or concerns. Distress tool worksheet was completed RN has documented yes in flowsheet for reviewed. Nutrition Screen was completed and submitted for review. Nutrition Referral was not ordered per protocol. HIPPA form was updated. Depression Screen was not completed this day ACP/Shared Decision Making has been addressed/discussed. Teach and consent were obtained and reviewed this visit. Integrative Consult does not need Social Work Consult does not need Nurse Navigation referraldoes not need documented in this encounter Plan of Treatment Upcoming Encounters Date Type Department Care Team (Late st Contact Info) Description 09/11/2024 1:45 PM EST Office Visit [facility] [address] [place] [address] Swapnil Lopez MD [address] [place] [address] 10/21/2024 2:[address] [facility] MRI [address] [place] [address] Jacky Shirley MD [address] [place] [address] 10/23/2024 1:45 PM EST Appointment [facility] [address] Olena Darby APRN [address] [place] [address] documented as of this encounter Goals [...] documented as of this encounter Results * CT HEAD RADIATION THERAPY PLANNING WO CONTRAST (01/05/2024 12:00 PM EDT) Anatomical Region Laterality Modality Computed Tomogra phy 01/05/2024 12:0 0 PM EDT Impressions 01/05/2024 2:23 PM EDT Treatment planning CT appears technically adequate. - Note: Radiology results need to be interpreted within a comprehensive clinical context. ??If you have questions about the radiology report, please contact the office of the ordering clinician. Narrative 01/05/2024 2:[address] HEAD RADIATION THERAPY PLANNING WO CONTRAST ??01/05/2024 12:00 PM ?? CLINICAL HISTORY: ??C79.51-Secondary malignant neoplasm of bone (HCC)-ICD-10-CM. COMPARISON: ??11/23/23. PROCEDURE COMMENTS: Multidetector CT scanning of the region of interest per treatment planning protocol with markers placed. ?? FINDINGS: ?? Examination appears technically adequate with satisfactory field of view and coverage range. ?? Previously demonstrated pathology shows grossly stable appearance. ??No significant new finding. Procedure Note Denice James MD - 01/05/2024 CT HEAD RADIATION THERAPY PLANNING WO CONTRAST 01/05/2024 12:00 PM CLINICAL HISTORY: C79.51-Secondary malignant neoplasm of bone(HCC)-ICD-10-CM. COMPARISON: 11/23/23. PROCEDURE COMMENTS: Multidetector CT scanning of the region of interestper treatment planning protocol with markers placed. FINDINGS: Examination appears technically adequate with satisfactory field of viewand coverage range. Previously demonstrated pathology shows grossly stable appearance. No significant new finding. IMPRESSION: Treatment planning CT appears technically adequate. - Note: Radiology results need to be interpreted within a comprehensiveclinical context. If you have questions about the radiology report, please contactthe office of the ordering clinician. Jacky Shirley MD IMG CT ORDERABLES Final R esult documented in this encounter Visit Diagnoses Diagnosis [...] documented as of this encounter Care Teams Disposition Clerk Relationship Specialty Start Date End Date Damaso Black MD [address] [facility] [address] [facility] [place] [id number] PCP - General Family Medicine 11/22/22 Swapnil Lopez MD [address] [place] [address] Internal Medicine-Gastroenterology 02/16/22 Darío Rubio MD [address] [facility] [place] [address] Internal Medicine-Medical Oncology 12/11/23 Mya Naranjo MD [address] [facility] [place] [address] Family Medicine - Hospice And Palliative Medicine 01/04/24 Ashley Ordonez APRN [address] [facility] [place] [address] Nurse Practitioner 01/04/24 Nicole Melendez, RN Registered Nurse 01/04/24 documented as of this encounter
--- OUTSIDE RECORDS SUMMARY | 2024-08-15 13:51 | XMS_ITS | Encounter Summary ---
Author Organization [place] [address] Care Team Providers Care Production Machinist Name Role Phone Swapnil Lopez MD Unavailable [phone] Damaso Black MD Primary Care Provider [phone] Darío Rubio MD Unavailable [phone] Mya Naranjo MD Unavailable [phone] Ashley Ordonez APRN Unavailable [phone] Nicole Melendez RN Unavailable Unavailable Reason for Referral * MRI/CAT Scan (Routine) - Authorization Not Needed Specialty Diagnoses / Procedures Referred By Contac t Referred To Contact Radiology Diagnoses Secondary malignant neoplasm of bone (HCC) Procedures CT HEAD RADIATION THERAPY PLANNING WO CONTRAST Jacky Sihrley MD [address] [place] [address] [place] [address] Phone: tel: fax: ED [facility] [place] [address] Phone: tel: fax: Referral ID Status Reason Start Date Expiration Date Visits Requested Visits Authorized [id number] Authorization Not Needed 01/05/2024 01/04/2025 1 1 Reason for Visit * MRI/CAT Scan (Routine) - Authorization Not Needed Specialty Diagnoses / Procedures Referred By Contac t Referred To Contact Radiology Diagnoses Secondary malignant neoplasm of bone (HCC) Procedures CT HEAD RADIATION THERAPY PLANNING WO CONTRAST Jacky Shirley MD [address] [facility] [address] Phone: tel: fax: [facility] [place] [address] Phone: tel: fax: Referral ID Status Reason Start Date Expiration Date Visits Requested Visits Authorized [id number] Authorization Not Needed 01/05/2024 01/04/2025 1 1 Encounter Details Date Type Department Care Team (Latest Contact Info) Description 01/05/2024 11:42 AM EDT - 01/05/2024 11:59 PM EDT Hospital Encounter [facility] [place] [address] Jacky Shirley MD [address] [place] [address] Secondary malignant neoplasm of bone (HCC) Discharge [...] PM EST Office Visit [facility] [address] [place] [address] Swapnil Lopez MD [address] [place] [address] 10/21/2024 2:00 PM EST Appointment [facility] MRI [address] [place] [address] Jacky Shirley MD [address] [place] [address] [place] [address] 10/23/2024 1:45 PM EST Appointment [facility] [address] Olena Darby, AUTOMOBILE GLASS TECHNICIAN 1 [facility] [address] documented as of this encounter Goals Goal [...] Name Priority Date/Time Associated Diagnosis Comments CT HEAD RADIATION THERAPY PLANNING WO CONTRAST Routine 01/05/2024 12:00 PM EDT Secondary malignant neoplasm of bone (HCC) documented in this encounter Results * CT HEAD RADIATION [...] contactthe office of the ordering clinician. us Jacky Shirley MD IMG CT ORDERABLES Final [...] documented as of this encounter Care Teams Production Machinist Relationship Specialty Start Date End Date Damaso Black MD [address] [facility] [address] [place] [address] PCP - General Family Medicine 11/22/22 Swapnil Lopez MD [address] [place] [address] Internal Medicine-Gastroenterology 02/16/22 Darío Rubio MD [address] [place] [address] [place] [address] Internal Medicine-Medical Oncology 12/11/23 Mya Naranjo MD [address] [place] [address] [place] [address] Family Medicine - Hospice And Palliative Medicine 01/04/24 Ashley Ordonez APRN [address] [place] [address] [place] [address] Nurse Practitioner 01/04/24 Nicole Melendez, RN Registered Nurse 01/04/24 documented as of this encounter
--- OUTSIDE RECORDS SUMMARY | 2024-08-15 13:51 | XMS_ITS | Encounter Summary ---
Author Organization [place] [address] Care Team Providers Care Forestry Hunter Name Role Phone Swapnil Lopez MD Unavailable [phone] Damaso Black MD Primary Care Provider [phone] Darío Rubio MD Unavailable [phone] Mya Naranjo MD Unavailable [phone] Ashley Ordonez APRN Unavailable [phone] Nicole Melednez RN Unavailable Unavailable Encounter Details Date Type Department Care Team (Late st Contact Info) Description 01/12/2024 Orders Only [facility] Cancer [facility] [place] [address] Jacky Shirley MD [address] [place] [address] [place] [address] Social History Tobacco Use Types Packs/Day Years [...] PM EST Office Visit [facility] [address] [place] [address] Swapnil Lopez MD [address] [place] [address] 10/21/2024 2:[address] [facility] MRI [address] [place] [address] Jacky Shirley MD [address] [place] [address] [place] [address] 10/23/2024 1:45 PM EST Appointment [facility] [address] Olena Darby APRN 1 [facility] CANCER [facility] [place] [id number] documented as of this encounter Goals [...] an ideal body weight General Linda Perez, RMGena documented as of this encounter Procedures Procedure Name Priority Date/Time Associated Diagnosis Comments RADIATION TREATMENT SUMMARY Routine 01/12/2024 2:29 PM EDT documented in this encounter Results * RADIATION TREATMENT SUMMARY (01/12/2024 2:29 PM EDT) Course ID C1 ARIA Course Start Date 01/05/2024 12:19:14 PM JUANA Primary Oncologist Low Shirley Session Number 1 ARIA Treatment Date_Time 01/12/2024 2:29:49 PM ARIA Treatment Elapsed Days 0 ARIA Fractions Treated 1 ARIA Reference Point ID LtFrntSkull Iso ARIA Dosage Given to Date in Gy [id number] ARIA Session Dosage Given in Gy [id number] ARIA Reference Point ID LtFrntSkull RP ARIA Dosage Given to Date in Gy [id number] ARIA Session Dosage Given in Gy [id number] ARIA Plan ID SBRT LtFrntSk ARIA Plan Name SBRT PTV1.1 Lt Skull Met ARIA Fractions Treated to Date 1 ARIA Prescribed Dose Per Fraction in Gy 18 ARIA Prescribed Dose in cGY 1,800 ARIA Site Being Treated Brain-PTV1.1LtS kullMet ARIA 01/12/2024 2:29 PM EDT us Jacky Shirley MD RADIATION ONCOLOGY ORDERA BLES Final Result ARIA 1 [facility] [place] [id number] documented in this encounter Visit Diagnoses Not on filedocumented in this encounter Additional Health Concerns Assessment Noted Time PHQ-9 Depression Total Score: 13 024 1:47 PM EDT PHQ-2 Depression Total Score: 3 12/29/19 24 1:47 PM EDT documented as of this encounter Care Teams Forestry Hunter Relationship Specialty Start Date End Date Damaso Black MD [address] [place] [address] PCP - General Family Medicine 11/22/22 Swapnil Lopez MD [address] [place] [address] Internal Medicine-Gastroenterology 02/16/22 Darío Rubio MD [address] [place] [address] Internal Medicine-Medical Oncology 12/11/23 Mya Naranjo MD [address] [place] [address] Family Medicine - Hospice And Palliative Medicine 01/04/24 Ashley Ordonez APRN [address] [place] [address] Nurse Practitioner 01/04/24 Nicole Melendez, RN Registered Nurse 01/04/24 documented as of this encounter
--- OUTSIDE RECORDS SUMMARY | 2024-08-15 13:51 | XMS_ITS | Encounter Summary ---
Author Organization [place] [address] Care Team Providers Care Paint Stockman Name Role Phone Swapnil Lopez MD Unavailable [phone] Damaso Black MD Primary Care Provider [phone] Darío Rubio MD Unavailable [phone] Mya Naranjo MD Unavailable [phone] Ashley Ordonez APRN Unavailable [phone] Nicole Melendez RN Unavailable Unavailable Reason for Visit * Reason Comments Pharmacy Oncology Management sqali Encounter Details Date Type Department Care Team (Latest Contact Info) Description 01/03/2024 Specialty Pharmacy [facility] [address] [place] [address] Ce Samuels [facility] Pharmacy Oncology Management (kisqali) Social History Tobacco Use Types Packs/Day Years [...] documented in this encounter Progress Notes * Ce Samuels RPH - 01/03/2024 11:59 AM EDT [facility] Prescription received for Kisqali (600mg). Prescription requires prior authorization. Will route topharmacist for clinical review. * Ce Samuels RPH - 01/03/2024 11:59 AM EDT [facility] - Oncology Clinical Review Primary Oncologist: No primary care provider on file. Marleni Way is a 63 y.o. female. Oncology: Patient was prescribed Kisqali 600mg PO Once daily for initiation of therapy for breast cancer (C50.912) from [facility]. Stage: Stage IV (T4) Metastatic? Yes (M1) Lab Results Component Value Date CREATININE 0.65 12/11/2023 CrCl cannot be calculated (Patient's most recent lab result is older than the maximum 7 days allowed.). CrCl ~ 79 mL/min per Cockcroft-Gault equation. Medication does not require dose adjustment for renal function. Lab Results Component Value Date WBC 6.0 12/11/2023 HGB 13.3 12/11/2023 HCT 38.8 12/11/2023 PLT 235 12/11/2023 NEUTABSPRE 3.6 12/11/2023 NEUTROABS 3.6 12/11/2023 LYMPHSABS 1.8 12/11/2023 MONOSABS 0.6 12/11/2023 EOSABS 0.1 12/11/2023 BASOABS 0.0 12/11/2023 Lab Results Component Value Date ALT <5 12/11/2023 AST 13 12/11/2023 ALKPHOS 95 12/11/2023 LABBILI 0.4 12/11/2023 BILIDIR <0.2 01/20/2022 PROT 7.5 12/11/2023 INR 1.17 (H) 06/25/2016 Current Outpatient Medications Medication Sig anastrozole Take [...] days. MAX of 10 tablets per day Previous medications used: none Is prescribed medication being used as monotherapy? No If no, medication(s) being used with prescribed med: anastrozole First line or subsequent therapy? First line Clinical Impression: Clinically appropriate per current guidelines. Patient is ER+, NC+, HER2- Ce Samuels RPH Specialty Pharmacist * Shruthi Caruso CPhT - 01/03/2024 11:59 AM EDT [facility] Prior Authorization Submitted PA for Ribociclib to [employer] insurance via [employer] (Herrera [id number]). Will follow up on 01/03. * Shruthi Caruso CPhT - 01/03/2024 11:59 AM EDT [facility] Prior Authorization Determination Received notice of PA approval for Ribociclib. PA approved from 01/03/24 to 01/01/25. Patient is able to fill at [facility]. Copay is $0.00. Will route to pharmacist to complete initial assessment prior to therapy initiation. Medication is able to be delivered via [employer] documented in this encounter Plan of Treatment Upcoming Encounters Date Type Department Care Team (Late st Contact Info) Description 09/11/2024 1:45 PM EST Office Visit [facility] [address] [place] [address] Swapnil Lopez MD [address] [place] [address] 10/21/2024 2:00 PM EST Appointment [facility] MRI [address] [place] [address] Jacky Shirley MD [address] [place] [address] [place] [address] 10/23/2024 1:45 PM EST Appointment [facility] [place] [address] Olena Darby APRN [address] [place] [address] [place] [address] documented as of this encounter [...] documented as of this encounter Care Teams Paint Stockman Relationship Specialty Start Date End Date Damaso Black MD 1005 [facility] [address] [place] [address] PCP - General Family Medicine 11/22/22 Swapnil Lopez MD [address] [place] [address] Internal Medicine-Gastroenterology 02/16/22 Darío Rubio MD [address] [place] [address] [place] [address] Internal Medicine-Medical Oncology 12/11/23 Mya Naranjo MD [address] [place] [address] [place] [address] Family Medicine - Hospice And Palliative Medicine 01/04/24 Ashley Ordonez APRN [address] [place] [address] [place] [address] Nurse Practitioner 01/04/24 Nicole Melendez, RN Registered Nurse 01/04/24 documented as of this encounter
--- OUTSIDE RECORDS SUMMARY | 2024-08-15 13:51 | XMS_ITS | Encounter Summary ---
Author [place] [address] Care Team Providers Care Senior Auditor Name Role Phone Swapnil Lopez MD Unavailable [phone] Damaso Black MD Primary Care Provider [phone] Darío Rubio MD Unavailable [phone] Mya Naranjo MD Unavailable [phone] Ashley Ordonez APRN Unavailable [phone] Nicole Melendez RN Unavailable Unavailable Encounter Details Date Type Department Care Team (Latest Contact Info) Description 01/23/2024 10:45 AM EDT Hospital Encounter [facility] [place] [id number] Jacky Shirley MD [address] [place] [address] [place] [address] Left without seen Social History Tobacco Use [...] PM EST Office Visit [facility] [address] [place] [address] Swapnil Lopez MD [address] [place] [address] 10/21/2024 2:00 PM EST Appointment [facility] MRI [address] [place] [address] Jacky Shirley MD 1 [facility] [place] [address] 10/23/2024 1:45 PM EST Appointment [facility] [place] [place] [address] Olena Darby APRN 1 [facility] [place] [address] documented as of this encounter [...] documented as of this encounter Care Teams Senior Auditor Relationship Specialty Start Date End Date Damaso Black MD 1005 [facility] 22 [place], [place] [id number] PCP - General Family Medicine 11/22/22 Swapnil Lopez MD [address] [place] [address] Internal Medicine-Gastroenterology 02/16/22 Darío Rubio MD [address] [facility] [place] [address] Internal Medicine-Medical Oncology 12/11/23 Mya Naranjo MD [address] [place] [address] [place] [address] Family Medicine - Hospice And Palliative Medicine 01/04/24 Ashley Ordonez APRN [address] [place] [address] [place] [address] Nurse Practitioner 01/04/24 Nicole Melendez, RN Registered Nurse 01/04/24 documented as of this encounter
--- OUTSIDE RECORDS SUMMARY | 2024-08-15 13:51 | XMS_ITS | Encounter Summary ---
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 Nicole Melendez RN * Telephone Encounter - Yaa Canchola, Clerical Staff - 01/15/2024 2:38 PM EDT Patient advised if [facility] in [place], [place] cannot fill Tramadol, she would pick it up at [facility]. 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; pt is asking if it can be sent to the [facility] in [place], [place] Preferred call back number:[phone] documented in this encounter Plan of Treatment Upcoming Encounters Date Type Department Care Team (Late st Contact Info) Description 09/11/2024 1:45 PM EST Office Visit [facility] [address] [place] [address] Swapnil Lopez MD [address] [place] [address] 10/21/2024 2:00 PM EST Appointment [facility] MRI [address] [place] [address] Jacky Shirley MD [address] [place] [address] [place], [place] [address] 10/23/2024 1:45 PM EST Appointment [facility] [address] [place], [place] [phone] Olena Darby APRN [address] [place] [address] [place], [place] [id number] documented as of this encounter Goals Goal [...] Noted Time PHQ-9 Depression Total Score: 13 03/29/2 024 1:47 PM EDT PHQ-2 Depression Total Score: 3 12/29/19 24 1:47 PM EDT documented as of this encounter Care Teams Filtrose Crusher Relationship Specialty Start Date End Date Damaso Black MD [address] [place] [address] PCP - General Family Medicine 11/22/22 Swapnil Lopez MD [address] [place] [address] Internal Medicine-Gastroenterology 02/16/22 Darío Rubio MD [address] [place] [address] [place] [address] Internal Medicine-Medical Oncology 12/11/23 Mya Naranjo MD [address] [place] [address] [place] [address] Family Medicine - Hospice And Palliative Medicine 01/04/24 Ashley Ordonez APRN [address] [place] [address] [place] [address] Nurse Practitioner 01/04/24 Nicole Melendez, RN Registered Nurse 01/04/24 documented as of this encounter
--- OUTSIDE RECORDS SUMMARY | 2024-08-15 13:51 | XMS_ITS | Encounter Summary ---
Author Organization [place] [address] Care Team Providers Care Aeronautical Research Engineer Name Role Phone Swapnil Lopez MD Unavailable [phone] Damaso Black MD Primary Care Provider [phone] Darío Rubio MD Unavailable [phone] Mya Naranjo MD Unavailable [phone] Ashley Ordonez APRN Unavailable [phone] Nicole Melendez RN Unavailable Unavailable Encounter Details Date Type Department Care Team (Late st Contact Info) Description 01/06/2024 Orders Only [facility] [place] [address] Haylie Nguyen, computer networking instructor ductal carcinoma of breast, left (HCC) Social [...] with or without food 30 Tablet 11 01/06/2024 4 documented in this encounter Plan of Treatment Upcoming Encounters Date Type Department Care Team (Late st Contact Info) Description 09/11/2024 1:45 PM EST Office Visit [facility] [address] [place] [address] Swapnil Lopez MD [address] [place] [address] 10/21/2024 2:00 PM EST Appointment [facility] MRI [address] [place] [address] Jacky Shirley MD [address] [place] [address] [place] [address] 10/23/2024 1:45 PM EST Appointment [facility] ON[facility] [address] [place], [place] [phone] Olena Darby APRN 1 [facility] [place] [address] documented as of this encounter Goals Goal Patient Goal Type Associated Problems Recent Progress Patient-Stated? Author Breast Health Breast Health No Mary Kate Winchester, RN [...] Da te anastrozole (ARIMIDEX) 1 mg Oral TabletIndications:Invasi ve ductal carcinoma of breast, left (HCC) Take 1 Tablet by mouth daily. Take with or without food Reorder 01/03/2024 01/06/2024 documented as of this encounter Additional Health Concerns Assessment Noted Time PHQ-9 Depression Total Score: 13 024 1:47 PM EDT PHQ-2 Depression Total Score: 3 12/29/19 24 1:47 PM EDT documented as of this encounter Care Teams Aeronautical Research Engineer Relationship Specialty Start Date End Date Damaso Black MD [address] [address] PCP - General Family Medicine 11/22/22 Swapnil Lopez MD [address] [place] [address] Internal Medicine-Gastroenterology 02/16/22 Darío Rubio MD 1 [facility] [place] [address] Internal Medicine-Medical Oncology 12/11/23 Mya Naranjo MD [address] [facility] [place] [address] Family Medicine - Hospice And Palliative Medicine 01/04/24 Ashley Ordonez APRN [address] [facility] [place] [address] Nurse Practitioner 01/04/24 Nicole Melendez, RN Registered Nurse 01/04/24 documented as of this encounter
--- OUTSIDE RECORDS SUMMARY | 2024-08-15 13:51 | XMS_ITS | Encounter Summary ---
Author Organization [facility] [place] [address] Care Team Providers Care Bundle Cutter Name Role Phone Swapnil Lopez MD Unavailable [phone] Damaso Black MD Primary Care Provider [phone] Darío Rubio MD Unavailable [phone] Mya Naranjo MD Unavailable [phone] Ashley Ordonez APRN Unavailable [phone] Nicole Melendez RN Unavailable Unavailable Encounter Details Date Type Department Care Team (Latest Contact Info) Description 01/04/2024 Travel Social History Tobacco Use Types Packs/Day [...] PM EST Office Visit [facility] [address] [facility] [place] [address] Swapnil Lopez MD [address] [place] [address] 10/21/2024 2:00 PM EST Appointment [facility] MRI [address] [place] [address] Jacky Shirley MD [address] [place] [address] [place] [address] 10/23/2024 1:45 PM EST Appointment [facility] [place] [address] Olena Darby APRN [address] [place] [address] documented as of this encounter Goals [...] documented as of this encounter Care Teams Bundle Cutter Relationship Specialty Start Date End Date Damaso Black MD 1005 [facility] [address] [place] [address] PCP - General Family Medicine 11/22/22 Swapnil Lopez MD [address] [place] [address] Internal Medicine-Gastroenterology 02/16/22 Darío Rubio MD [address] [facility] [place] [address] Internal Medicine-Medical Oncology 12/11/23 Mya Naranjo MD [address] [facility] [place] [address] Family Medicine - Hospice And Palliative Medicine 01/04/24 Ashley Ordonez APRN [address] [facility] [place] [address] Nurse Practitioner 01/04/24 Nicole Melendez, RN Registered Nurse 01/04/24 documented as of this encounter
--- OUTSIDE RECORDS SUMMARY | 2024-08-15 13:51 | XMS_ITS | Encounter Summary ---
Author Organization [place] [address] Care Team Providers Care Medical Sales Consultant Name Role Phone Swapnil Lopez MD Unavailable [phone] Damaso Black MD Primary Care Provider [phone] Darío Rubio MD Unavailable [phone] Mya Naranjo MD Unavailable [phone] Ashley Ordonez APRN Unavailable [phone] Nicole Melendez RN Unavailable Unavailable Encounter Details Date Type Department Care Team (Latest Contact Info) Description 01/05/2024 11:30 AM EDT - 01/05/2024 11:41 AM EDT Hospital Encounter [facility] [place] [address] Jacky Shirley MD [address] [place] [address] [place] [address] Secondary malignant neoplasm of bone (HCC) (Primary [...] Notes * Jacky Shirley MD - 01/05/2024 11:30 AM EDT RADIATION THERAPY SIMULATION NOTE Patient Name: Marleni Way : 1960 Date of Service: 01/05/2024 Diagnosis: Cancer Staging Invasive ductal carcinoma of breast, left (HCC) Staging form: Breast, AJCC 8th Edition - Clinical stage from 11/13/2023: Stage IIA (cT2, cN1, cM0, G2, ER+, OH+, HER2-) - Signed by Ian Ruiz MD on 11/18/2023 As ordered, a simulation procedure was performed. Marleni Way was placed in the treatment position utilizing the necessary immobilization devices to ensure a reproducible treatment position. All set-up parameters for the treatment delivery are outlined below. Reference long were placed on the patient to assist with set-up. Immediately following simulation, nurseryperson films were obtainedto define the region of interest and reviewed. A CT for dosimetry was then obtained. These images will be utilized for purposes of formal computerized treatment planning. Dose objectives and constraint orders will be submitted to dosimetry. The radiation therapist performing the simulation is documented. Area of Scan: Brain Patient Position: Supine Immobilization: Short Mask Markers/Wires: N/A Bladder: N/A Contrast: N/A CT Simulation Imaging: Free Breathing Imaging Fusion for Planning: MRI Tx Plan: SRS Chemo: no Start Date: 01/12/24 Location: [facility] I participated in the design and creation of the treatment devices and final approval of the simulation described above. documented in this encounter Plan of Treatment Upcoming Encounters Date Type Department Care Team (Late st Contact Info) Description 09/11/2024 1:45 PM EST Office Visit [facility] [address] [place] [address] Swapnil Lopez MD [address] [place] [address] 10/21/2024 2:00 PM EST Appointment [facility] MRI [address] [place] [address] Jacky Shirley MD [address] [place] [address] [place] [address] 10/23/2024 1:45 PM EST Appointment [place] [address] Olena Darby APRN 1 [place] [facility] [place] [address] documented as of this encounter [...] an ideal body weight General Linda Perez G, RMA documented as of this encounter Visit Diagnoses Diagnosis Secondary malignant neoplasm of bone (HCC)- Primary Secondary malignant neoplasm of bone and bone marrow documented in this encounter Additional Health Concerns Assessment Noted Time PHQ-9 Depression Total Score: 13 024 1:47 PM EDT PHQ-2 Depression Total Score: 3 12/29/19 24 1:47 PM EDT documented as of this encounter Care Teams Medical Sales Consultant Relationship Specialty Start Date End Date Damaso Black MD 1005 [facility] [address] [place] [address] PCP - General Family Medicine 11/22/22 Swapnil Lopez MD [address] [place] [address] Internal Medicine-Gastroenterology 02/16/22 Darío Rubio MD [address] [facility] [place] [address] Internal Medicine-Medical Oncology 12/11/23 Mya Naranjo MD [address] [facility] [place] [address] Family Medicine - Hospice And Palliative Medicine 01/04/24 Ashley Ordonez APRN [address] [facility] [address] Nurse Practitioner 01/04/24 Nicole Melendez, RN Registered Nurse 01/04/24 documented as of this encounter
--- OUTSIDE RECORDS SUMMARY | 2024-08-15 13:51 | XMS_ITS | Encounter Summary ---
Author Organization [place] [address] Care Team Providers Care Master Machinist Name Role Phone Swapnil Lopez MD Unavailable [phone] Damaso Black MD Primary Care Provider [phone] Darío Rubio MD Unavailable [phone] Mya Naranjo MD Unavailable [phone] Ashley Ordonez APRN Unavailable [phone] Nicole Melendez RN Unavailable Unavailable Reason for Visit * Radiation Therapy (Routine) - Authorization Not Needed Specialty Diagnoses / Procedures Referred By Contac t Referred To Contact Radiation Oncology Diagnoses Secondary malignant neoplasm of bone (HCC) Procedures VT RADN RX DELIV,BODY, EACH FRACTION SBRT X 1 FX Jacky Shirley MD [address] [place] [address] [place] [address] Phone: tel: fax: [facility] [place] [address] Phone: tel: fax: Referral ID Status Reason Start Date Expiration Date Visits Requested Visits Authorized [id number] Authorization Not Needed 01/05/2024 01/04/2025 99 99 Encounter Details Date Type Department Care Team (Latest Contact Info) Description 01/12/2024 1:54 PM EDT - 01/12/2024 11:59 PM EDT Hospital Encounter [facility] [place] [address] Jacky Shirley MD [address] [place] [address] [place] [address] Discharge Disposition: Home or Self Care Social [...] PM EST Office Visit [facility] [address] [facility], [place] [phone] Swapnil Lopez MD [address] [facility] [place] [address] 10/21/2024 2:00 PM EST Appointment [facility] MRI [address] [facility] [place] [address] Jacky Shirley MD [address] [place] [address] [facility] [place], [place] [phone] 10/23/2024 1:45 PM EST Appointment [facility] [place], [place] [phone] Olena Darby APRN [address] [place] [address] CANCER [place], [place] [phone] documented as of this encounter Goals Goal [...] documented as of this encounter Care Teams Master Machinist Relationship Specialty Start Date End Date Damaso Black MD 1005 [facility] [address] [place] [address] PCP - General Family Medicine 11/22/22 Swapnil Lopez MD [address] [place] [address] Internal Medicine-Gastroenterology 02/16/22 Darío Rubio MD [address] [facility] [address] Internal Medicine-Medical Oncology 12/11/23 Mya Naranjo MD [address] [facility] [place] [address] Family Medicine - Hospice And Palliative Medicine 01/04/24 Ashley Ordonez APRN [address] [facility] [place] [address] Nurse Practitioner 01/04/24 Nicole Melendez, RN Registered Nurse 01/04/24 documented as of this encounter
--- OUTSIDE RECORDS SUMMARY | 2024-08-15 13:51 | XMS_ITS | Encounter Summary ---
Author Organization [place] [address] Care Team Providers Care C T Tech Name Role Phone Swapnil Lopez MD Unavailable [phone] Damaso Black MD Primary Care Provider [phone] Darío Rubio MD Unavailable [phone] Mya Naranjo MD Unavailable [phone] Ashley Ordonez APRN Unavailable [phone] Nicole Melendez RN Unavailable Unavailable Encounter Details Date Type Department Care Team (Late st Contact Info) Description 01/18/2024 Telephone Cancer Care Medical Oncology [place] [id number] Darío Rubio MD [address] [place] [address] Social History Tobacco Use Types Packs/Day Years [...] Telephone Encounter - Aislinn Viera RN - 01/18/2024 1:46 PM EDT Sent Voxel message to patient to schedule appointment with neurology. documented in this encounter Plan of Treatment Upcoming Encounters Date Type Department Care Team (Late st Contact Info) Description 09/11/2024 1:45 PM EST Office Visit [facility] [address] [place] [address] Swapnil Lopez MD [address] [place] [address] 10/21/2024 2:00 PM EST Appointment [facility] MRI [address] [place] [address] Jacky Shirley MD [address] [place] [address] [place] [address] 10/23/2024 1:45 PM EST Appointment [facility] [address] [facility] [address] [place], [place] [phone] Olena Darby APRN 1 [facility] [place] [address] documented as of this encounter Goals Goal [...] documented as of this encounter Care Teams C T Tech Relationship Specialty Start Date End Date Damaso Black MD 1005 [facility] [address] [place] [address] PCP - General Family Medicine 11/22/22 Swapnil Lopez MD [address] [place] [address] Internal Medicine-Gastroenterology 02/16/22 Darío Rubio MD [address] [place] [address] Internal Medicine-Medical Oncology 12/11/23 Mya Naranjo MD [address] [place] [address] Family Medicine - Hospice And Palliative Medicine 01/04/24 Ashley Ordonez APRN [address] [place] [address] Nurse Practitioner 01/04/24 Nicole Melendez, RN Registered Nurse 01/04/24 documented as of this encounter
--- OUTSIDE RECORDS SUMMARY | 2024-08-15 13:52 | XMS_ITS | Encounter Summary ---
Author Organization [place] [address] Care Team Providers Care Geothermal Hvac Technician Name Role Phone Swapnil Lopez MD Unavailable [phone] Damaso Black MD Primary Care Provider [phone] Reason for Visit * Reason Onset Date Comments Reschedule 12/04/2023 follow up and la b appointment Encounter Details Date Type Department Care Team (Late st Contact Info) Description 12/04/2023 Telephone Cancer Care Medical Oncology [place] [id number] Darío Rubio MD [address] [place] [address] Reschedule (follow up and lab appointment ) Social History Tobacco Use Types Packs/Day Years Used Date Smoking Tobacco: Never Smokeless Tobacco: Never Alcohol Use Standard Drinks/Week Comments Not Currently 0 (1 standard drink = 0.6 oz pur e alcohol) Comments No Sex and Gender Information Value [...] Telephone Encounter - Aislinn Viera RN - 12/04/2023 10:53 AM EST RN aware. Made call center aware to not let any family members know about patient's plan as patientneeded to move the appointment due to family members being aware. Working with call center to see if we can still have her moved to this week to discuss POT/scans. If not, will keep 12/10 appointment. * Telephone Encounter - Keely Dillon, Clerical Staff - 12/04/2023 10:42 AM EST Detailed visit type(s) needing cancelled or rescheduled: Keely from [facility] called to reschedule the patient's Follow up and lab appointment Current visit date: 12/05/23 Ordering provider: Dr. Rubio Reason for cancelling or rescheduling:Keely states patient's family found out about appointment andthat it needs to be changed to a day family does not know Appointment(s) rescheduled to date(s): patient rescheduled to 12/11/23 at 2:15 for labs and 2:40 MDOV Please do not inform family of appointment change documented in this encounter Plan of Treatment Upcoming Encounters Date Type Department Care Team (Late st Contact Info) Description 09/11/2024 1:45 PM EST Office Visit [facility] [address] [facility], [place] [id number] Swapnil Lopez MD [address] [place] [address] 10/21/2024 2:[address] [facility] MRI [address] [place] [address] Jacky Shirley MD [address] [place] [address] 10/23/2024 1:45 PM EST Appointment [facility] [address] [place], [place] [id number] Olena Darby APRN [address] [place] [address] documented as of this encounter Goals Goal [...] on filedocumented in this encounter Care Teams Geothermal Hvac Technician Relationship Specialty Start Date End Date Damaso Black MD [address] [place] [address] PCP - General Family Medicine 11/22/22 Swapnil Lopez MD [address] [place] [address] Internal Medicine-Gastroenterology 02/16/22 documented as of this encounter
--- OUTSIDE RECORDS SUMMARY | 2024-08-15 13:52 | XMS_ITS | Encounter Summary ---
Author Organization [place] [address] Care Team Providers Care Buttoner Name Role Phone wSapnil Lopez MD Unavailable [phone] Damaso Black MD Primary Care Provider [phone] Darío Rubio MD Unavailable [phone] Reason for Visit * Reason Onset Date Comments Results 12/26/2023 MRI brain from Encounter Details Date Type Department Care Team (Late st Contact Info) Description 12/26/2023 Telephone Cancer Care Medical Oncology [place] [phone] Darío Rubio MD [address] [place] [address] Results (MRI brain from 11/23) Social History Tobacco Use Types Packs/Day Years [...] Telephone Encounter - Aislinn Viera RN - 12/26/2023 1:56 PM EDT RN aware report was faxed to [place]. * Telephone Encounter - Mile Abbott - 12/26/2023 1:39 PM EDT Reason for call: faxed report for MRI brain from 11/23 to [facility] per request of caller Preferred call back number:[phone] faxed to [phone] documented in this encounter Plan of Treatment Upcoming Encounters Date Type Department Care Team (Late st Contact Info) Description 09/11/2024 1:45 PM EST Office Visit [facility] [address] [facility] [place] [address] Swapnil Lopez MD [address] [facility] [place] [address] 10/21/2024 2:00 PM EST Appointment [facility] MRI [address] [address] Jacky Shirley MD 1 [facility] [place] [address] 10/23/2024 1:45 PM EST Appointment [facility] [address] [place], [place] [phone] Olena Darby, POUNCER MACHINE 1 [facility] [place], [place] [phone] documented as of this encounter Goals Goal [...] on filedocumented in this encounter Care Teams Buttoner Relationship Specialty Start Date End Date Damaso Black MD [address] [facility] [address] [place] [address] PCP - General Family Medicine 11/22/22 Swapnil Lopez MD [address] [place] [address] Internal Medicine-Gastroenterology 02/16/22 Darío Rubio MD [address] [place] [address] Internal Medicine-Medical Oncology 12/11/23 documented as of this encounter
--- OUTSIDE RECORDS SUMMARY | 2024-08-15 13:52 | XMS_ITS | Encounter Summary ---
Author Organization [place] [address] Care Team Providers Care In Class Special Education Teacher Name Role Phone Swapnil Lopez MD Unavailable [phone] Damaso Black MD Primary Care Provider [phone] Darío Rubio MD Unavailable [phone] Encounter Details Date Type Department Care Team (Late st Contact Info) Description 12/26/2023 Social Work [facility] [place] [id number] Shruthi Mcdaniel MSW Social History Tobacco Use Types Packs/Day [...] in this encounter Progress Notes * Shruthi Mcdaniel MSW - 12/26/2023 11:01 AM EDT 12/26/23 1058 Sheet Metal Insulator Assessment Referred By DT Disease/[place] Site Polisher Numeral Assignment Breast cancer Referral Location: Reason for Referral DT Identified Needs Adjustment to illness;Financial issues;Transportation Social Work Interventions Education/Information (PASTRY WRAPPER called Pt to discuss current needs and concerns. PASTRY WRAPPER left message regarding Oncology SW services and requested Pt call back at her convenience.) Distress Screening SW Reviewed Yes documented in this encounter Plan of Treatment Upcoming Encounters Date Type Department Care Team (Late st Contact Info) Description 09/11/2024 1:45 PM EST Office Visit [facility] [address] [place] [address] Swapnil Lopez MD [address] [place] [address] 10/21/2024 2:00 PM EST Appointment [facility] MRI [address] [place] [address] Jacky Shirley MD [address] [place] [address] [place] [address] 10/23/2024 1:45 PM EST Appointment [facility] [place] [address] Olena Darby APRN 1 [facility] [address] documented as of this encounter [...] on filedocumented in this encounter Care Teams In Class Special Education Teacher Relationship Specialty Start Date End Date Damaso Black MD [address] [facility] [address] [place] [address] PCP - General Family Medicine 11/22/22 Swapnil Lopez MD [address] [place] [phone] Internal Medicine-Gastroenterology 02/16/22 Darío Rubio MD [address] [facility] [place] [address] Internal Medicine-Medical Oncology 12/11/23 documented as of this encounter
--- OUTSIDE RECORDS SUMMARY | 2024-08-15 13:52 | XMS_ITS | Encounter Summary ---
Author Organization [place] [address] Care Team Providers Care Assistance Representative Name Role Phone Swapnil Lopez MD Unavailable [phone] Damaso Black MD Primary Care Provider [phone] Reason for Visit * Reason Onset Date Comments Results 11/29/2023 MRI BRAIN W WO C ONTRAST 11/23/2023 12:45 PM Encounter Details Date Type Department Care Team (Late st Contact Info) Description 11/29/2023 Telephone [facility] [place] [address] Darío Rubio MD [address] [place] [address] Results (MRI BRAIN W WO CONTRAST 11/23/2023 12:45 PM) Social History Tobacco Use Types Packs/Day Years [...] Telephone Encounter - Aislinn Viera RN - 11/30/2023 1:35 PM EST Spoke to Yaa who took call while son was on the phone. Patient's son is upset because he is the POA. He can come to the appointment on 12/[address] Rubio then. Dr. Rubio will not give information over the phone prior to then. Discussed all of this information with Yaa while she spoketo patient's son. Yaa documented conversation and handled situation well. * Telephone Encounter - Yaa Canchola, Clerical Staff - 11/30/2023 12:57 PM EST Son (Eloy) returning call asking to speak with Augustina. He has questions in regards to the brain Mri and Pet Ct results that he has obtained from [facility] Medical Records. He wants to know what stage cancer is in and what the next steps are going to be as far as treatment options. Advised him that Dr. Rubio will be discussing all of this further at the next appointment on Monday 12/04 at 2pm. Eloy upset that he cannot speak to someone since he has POA. * Telephone Encounter - Aislinn Viera RN - 11/30/2023 9:43 AM EST Spoke to Dr. Rubio about phone call. Will explain to son that he will need to speak with his mother/patient to coordinate either coming to her appointment or having her speak to him after the appointment to discuss the findings. We cannot give results over the phone without speaking with the patient first. She is currently scheduled to follow up with Dr. Rubio on 12/04. Called son back. LVM. * Telephone Encounter - Mile Abbott - 11/29/2023 3:58 PM EST Reason for call: pt's son Eloy would like a return call to discuss results of brain MRI from 11/23 Preferred call back number:[phone] documented in this encounter Plan of Treatment Upcoming Encounters Date Type Department Care Team (Late st Contact Info) Description 09/11/2024 1:45 PM EST Office Visit [facility] [address] [place] [address] Swapnil Lopez MD [address] [place] [address] 10/21/2024 2:00 PM EST Appointment [facility] MRI [address] [place] [address] Jacky Shirley MD [address] [place] [address] [place] [address] 10/23/2024 1:45 PM EST Appointment [facility] [place], [place] [phone] Olena Darby APRN 1 [facility] [place] [address] documented as of this encounter [...] on filedocumented in this encounter Care Teams Assistance Representative Relationship Specialty Start Date End Date Damaso Black MD [address] [facility] [address] [place] [address] PCP - General Family Medicine 11/22/22 Swapnil Lopez MD [address] [place] [phone] Internal Medicine-Gastroenterology 02/16/22 documented as of this encounter
--- OUTSIDE RECORDS SUMMARY | 2024-08-15 13:52 | XMS_ITS | Encounter Summary ---
Author Organization [place] [address] Care Team Providers Care Hot Saw Helper Name Role Phone Swapnil Lopez MD Unavailable [phone] Damaso Black MD Primary Care Provider [phone] Darío Rubio MD Unavailable [phone] Reason for Referral * Consultation (Routine) - Closed Specialty Diagnoses / Procedures Referred By Contac t Referred To Contact Palliative Care Diagnoses Invasive ductal carcinoma of left breast, stage 4 (HCC) Darío Rubio MD [address] [place] [address] [place] [address] Phone: tel: fax: [place] [address] Referral ID Status Reason Start Date Expiration Date Visits Re quested Visits Authorized [id number] Closed 12/11/2023 12/10/2024 99 99 Question Answer Reason for Referral Serious illness symptom management Level of Care Consultation and co-management Comments stage IV breast cancer * Consultation (Routine) - Pending Review Specialty Diagnoses / Procedures Referred By Contac t Referred To Contact Radiation Oncology Diagnoses Invasive ductal carcinoma of left breast, stage 4 (HCC) Darío Rubio MD [address] [place] [address] [place] [address] Phone: tel: fax: Jacky Shirley MD 1 [facility] [place] [address] Phone: tel: fax: Referral ID Status Reason Start Date Expiration Date V isits Requested Visits Authorized [id number] Pending Review 12/11/2023 12/10/2024 1 1 Reason for Visit * Reason Comments Follow-up Breast Cancer Pt. States that her left side is in a lot of pain where her breast cancer is. Headache Encounter Details Date Type Department Care Team (Latest Contact Info) Description 12/11/2023 2:32 PM EDT - 12/11/2023 11:59 PM EDT Hospital Encounter [facility] [place] [address] Darío Rubio MD [address] [place] [address] Invasive ductal carcinoma of left breast, stage 4 (HCC) (Primary Dx) Discharge Disposition: Home or [...] Sign Reading Time Taken Comments Blood Pressure 130/85 12/11/2023 2:47 PM EDT Pulse 65 12/11/2023 2:47 PM EDT Temperature 36.4 ??C (97.5 ??F) 12/11/2023 2:47 PM ED T Respiratory Rate 12 12/11/2023 2:47 PM EDT Oxygen Saturation 100% 12/11/2023 2:47 PM EDT Inhaled Oxygen Concentration - - Weight 59.9 kg (132 lb) 12/11/2023 2:47 PM EDT Height 157.5 cm (5' 2 ) 12/11/2023 2:47 PM EDT Body Mass Index 24.14 12/11/2023 2:47 PM EDT documented in this encounter Functional [...] La Garza RMGena documented in this encounter Medications at Time of Discharge ondansetron (ZOFRAN) 4 mg Oral Tablet Take 4 mg by mouth. 04/25/2022 ondansetron (ZOFRAN) 4 mg Oral Tablet TAKE 1 TABLET BY MOUTH EVERY 6 HOURS NEEDED FOR NAUSEA 30 Tablet 5 10/21/2022 01/05/2024 documented as of this encounter Discharge Disposition Disposition Code Departure Means Destination Home or Self Care documented in this encounter Progress Notes * Darío Rubio MD - 12/11/2023 2:40 PM EDT Images from the original [...] in the right breast. 11/13/2023 - Genetics [facility] 67 gene panel testing results were negative. CURRENT TREATMENT: None INTERVAL HISTORY: Ms. Sy is a 63 y.o. female who is here for follow up. Patient states that since last visit she is having increasing pain in left axilla and breast. Reviewed past medical, surgical, family, and social histories. Review of systems: Constitutional: + fatigue HEENT: No visual problems; no hearing loss or vertigo. Respiratory: No cough, wheezing, or shortness of breath. Cardiovascular: No chest pain. : No frequency or urgency; no dysuria; no hematuria. Musculoskeletal: No back pain Integument: No rash. Neurologic: No headaches; no dizziness Endocrine: No polyuria or polydipsia Lymphatic: +nodes/glands. No night sweats + unintended weight loss. Psychiatric: No depression or anxiety Hematologic: No easy bruising; no anemia. PHYSICAL EXAM: Vitals: 12/11/23 1447 BP: 130/85 Pulse: 65 Resp: 12 Temp: 97.5 ??F (36.4 ??C) SpO2: 100% Wt Readings from Last 3 Encounters: 12/11/23 132 lb (59.9 kg) 12/08/23 129 lb (58.5 kg) 11/13/23 132 lb 6.4 oz (60.1 kg) GENERAL APPEARANCE: Distressed, tearful HEAD: Normocephalic, without obvious abnormality, atraumatic NECK: No palpable lymphadenopathy in supraclavicular or cervical chains LUNGS: No audible rales, wheezes or crackles HEART: Regular rate and rhythm ABDOMEN: Soft, non-tender; bowel sounds normal; no masses, no organomegaly EXTREMETIES: without cyanosis, clubbing, edema or asymmetry SKIN: No jaundice, purpura or petechiae. No rash. LABS: CBC: Lab Results Component Value Date/Time WBC 6.0 12/11/2023 02:32 PM WBC 15.1 (H) 06/25/2016 11:25 AM RBC 4.50 12/11/2023 02:32 PM RBC 4.83 06/25/2016 11:25 AM PLT 235 12/11/2023 02:32 PM PLT 329 06/25/2016 11:25 AM CMP: Lab Results Component Value Date NA 142 12/11/2023 K 4.0 12/11/2023 CL 105 12/11/2023 CO2 26 12/11/2023 ANIONGAP 11 12/11/2023 CALCIUM 9.7 12/11/2023 GLU 103 (H) 12/11/2023 BUN 13 12/11/2023 CREATININE 0.65 12/11/2023 ALBUMIN 4.5 12/11/2023 PROT 7.5 12/11/2023 LABBILI 0.4 12/11/2023 ALT <5 12/11/2023 AST 13 12/11/2023 GFRAFRAM 77 04/13/2021 GFRNONAFRAM 67 04/13/2021 IMAGING: All relevant images were reviewed in detail with the patient. All questions were addressed and answered in great detail. PET CT SKULL BASE TO MID THIGH Result Date: 11/23/[address] SKULL BASE TO MID THIGH, 11/23/2023 3:03 PM CLINICAL HISTORY: C50.912- Malignant neoplasm of unspecified site of left female breast (HCC)-ICD-10-CM. COMPARISON: None. PROCEDURE COMMENTS: 11 mCi 18F-fluorodeoxyglucose (FDG) was administered I.V. Serum blood glucose at the time of the injection was 92 mg/dL. Uptake time was approximately 45 minutes. Scanning performed from the skull vertex to the mid thigh. As an integrated part of the study, noncontrast CT scanning performed for attenuationcorrection and localization purposes.Dose 1 : CT DLP Total : 211.7 mGycm DLP Spiral Max : 203.61 mGycm Maximum CTDI Vol : 2.09 mGy FINDINGS: Normal distribution of physiologic background activity waspresent including gastrointestinal, genitourinary, cardiovascular, neurologic systems. Index activity in the right lobe of the liver was 5.15 SUV max. Head and Neck: No hypermetabolic foci. Chest: Left breast mass demonstrates a mild the trace activity with a maximum SUV 3.63. Multiple left axillary adenopathy with the hypermetabolic activity. Largest at the level 1 left axillary mass measuring ab out 2.8 cm with a maximum SUV 6.98. Multiple level 2 lymph nodes with the largest one measuring about 2.3 cm and maximum SUV 8.51. Small level 3 lymph node measuring 1.1 cm with a maximum SUV 5.79. No intrathoracic hypermetabolic lesion. 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 Maximum SUV 7.55. 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 However, recommend evaluation with the diagnostic CT with the IV contrast possibly with the intraluminal rectal contrast as well. High density in the bladder on CT likely to be due to the contrast the from MRI of the brain performed just prior to this PET/CT. Gallstones. Musculoskeletal: No hypermetabolic foci. Left breast malignancy or new demonstrates mild trace activity with a maximum SUV 3.63. Multiple left axillary adenopathy with the hypermetabolic activity involving level 1, 2 and 3. Highest maximum SUV 8.51. Consistent with the metastatic disease. Hypermetabolic activity at the site of rectal cutaneous fistula demonstrated on April 02, 2015 CT with a maximum SUV 7.55. This could be due to persistent rectal cutaneous fistula. However, malignancy including squamous cell carcinoma can developed in the area of a chronic fistula. Recommend correlation with the physical exam as well as the further evaluation with a CT with the IV and oral as well as possibly rectal contrast. - Note: Radiology results need to be interpreted within a comprehensive clinical context. If you have questions about the radiology report, please contact the office of the ordering clinician. MRI BRAIN W WO CONTRAST Result Date: 11/23/2023 MRI BRAIN W WO CONTRAST 11/23/2023 12:45 PM CLINICAL HISTORY: C50.912-Malignant neoplasm of unspecified site of left female breast (HCC)-ICD-10-CM R51.9- Headache, qgqtkxsjhmf-CKT-63-CM G89.29-Other chronic mvxd-ATZ-13-CM. COMPARISON: None. PROCEDURE COMMENTS: Multiplanar multiecho MR imaging of the brain per protocol before and following IV contrast administration. Gadolinium contrast given as recorded in Epic. FINDINGS: Acute Ischemic Change: No evidence of restricted diffusion to suggest an acute infarct. Hemorrhage: No evidence of prior parenchymal hemorrhage on the gradient echo images. Mass Effect / Mass Lesion: No mass effect. No evidence of an intracranial mass or extra-axial fluid collection. Parenchyma: T1-weighted imaging sequences including postcontrast sequences are at least mildly motion degraded. There is no abnormal parenchymal enhancement on postcontrast imaging. There isan enhancing calvarial lesion involving the left frontal lobe with involvement of the inner table. There is probable asymmetric thin underlying dural enhancement/thickening, which may be reactive. Noother abnormal leptomeningeal enhancement on postcontrast imaging. A few scattered similar foci of T2/FLAIR hyperintensity involving the periventricular and subcortical white matter of the supratentorial brain are completely nonspecific, but most compatible with the sequela of minimal chronic microvascular ischemia in a patient of this age. Small remote infarct involving the posterior monique. The brain parenchyma is otherwise within normal limits of signal intensity and morphology. Ventricles: Normal caliber and morphology. Skull Base: Hypothalamic and pituitary region are grossly normal. Craniocervical junction is normal. As previously mentioned, there is an abnormal ovoid left frontal bone calvarial lesion with involvement of the inner table. This lesion demonstrates T2/FLAIR hyperintensity with corresponding precontrast T1-weighted hypointensity and DWI hyperintensity. This lesion enhances on postcontrast imaging and measures approximately 2.2 x 1.1 x 1.2 cm. As mentioned above, there is probable thin underlying dural enhancement/thickening which may be reactive. This is suspiciousfor calvarial metastasis. PET/CT is currently pending and correlation with those results is recommended. Vasculature: Major intracranial arterial structures and dural venous sinuses show typical flowvoid, suggesting patency by spin echo criteria. Sinuses: Mild chronic mucosal thickening involving the maxillary sinuses. Visualized remaining paranasal sinuses and mastoid air cells are grossly clear. Orbits: Grossly normal. Soft Tissues: The visualized extracranial soft tissues are grossly normal. 1. No acute intracranial abnormality. 2. No evidence of brain metastases. 3. 2.2 cm enhancing left frontal bone calvarial lesion is suspicious for calvarial metastasis. Correlation with pending PET/CT is recommended. 4. Minimal chronic microvascular ischemic changes with small remote pontine infarct. - Note: Radiology results need to be interpreted within a comprehensive clinical context. If you have questions about the radiology report, please contact the office of the ordering clinician. ASSESSMENT AND PLAN: Patient is a 63 y.o. female with a PMHx of Crohn's Disease and new diagnosis of Invasive Ductal Carcinoma of the Left Breast who is here for follow up with oncology. Stage IV Invasive Ductal Carcinoma of Left Breast (T2N3M1, ER+, ME+, HER2-) Patient coming from [facility] [place]. Patient reports feeling an enlarging breast lump. She is post-menopausal and has had a hysterectomy and no FMH of cancer. Left breast mass and left axilla biopsied and revealing invasive ductal carcinoma, grade 2, some DCIS as well. ER 96%, ME 73%, HER2 2+, FISH negative, lymph node [...] for faslodex monthly monotherapy if still in [facility]. Discussed side effects of faslodex and gave information. If out of [facility]- would consider faslodex and ribociclib vs AI + CDK4/6. -Patient states she wants to wait 1-2 additional weeks to start any tx to see if pig machine operator helper signs her medical claim and potentially be released from [facility]. If still in [facility]- faslodex monthly vs if out- possibly CDK4/6 + AI. -Refer to radiation oncology as well to discuss radiation to calvarial met as well given symptomatic -Palliative care consultation- patient is in a lot of pain from left breast mass and having some headaches at times; patient is in pain clinic but states she will be dismissed and was on multiple tramadols/day. In addition, needs additional goals of care discussion as well A total of 43 minutes of the encounter was spent in performing the following complex tasks: 1) Reviewing medical records in [facility] and if applicable outside records as well [...] PM EST Office Visit [facility] [address] [facility] [place] [address] Swapnil Lopez MD [address] [place] [address] 10/21/2024 2:00 PM EST Appointment [facility] [address] [address] Jacky Shirley MD 1 [facility] [place] [address] 10/23/2024 1:45 PM EST Appointment [facility] One [place], [place] [id number] Olena Darby APRN 1 [facility] [place], [place] [id number] Scheduled Referrals Name Type Priority Associated Diagnoses Order Schedule AMB REFERRAL TO RADIATION ONCOLOGY Outpatient Referral Routine Invasive ductal carcinoma of left breast, stage 4 (HCC) Ordered: 12/11/2023 AMB REFERRAL TO PALLIATIVE CARE Outpatient Referral Routine Invasive ductal carcinoma of left breast, stage 4 (HCC) Ordered: 12/11/2023 documented as of this encounter Goals Goal Patient Goal Type Associated Problems Recent Progress Patient-Stated? Author Breast [facility] Breast [facility] Mary Kate Vázquez, RN Note: Patient acknowledges understanding of new diagnosis, plan of care, available resources and how to contact Nurse Navigator with any future questions or concerns. Maintain a healthy diet, exercise regularly and maintain an ideal body weight General Linda Perez, RMA documented as of this encounter Visit Diagnoses Diagnosis Invasive ductal carcinoma of left breast, stage 4 (HCC)- Primary documented in this encounter Care Teams Hot Saw Helper Relationship Specialty Start Date End Date Damaso Black MD [address] [facility] [address] [facility] [place] [address] PCP - General Family Medicine 11/22/22 Swapnil Lopez MD [address] [place] [phone] Internal Medicine-Gastroenterology 02/16/22 Darío Rubio MD [address] [place] [address] Internal Medicine-Medical Oncology 12/11/23 documented as of this encounter
--- OUTSIDE RECORDS SUMMARY | 2024-08-15 13:52 | XMS_ITS | Encounter Summary ---
Author Organization [place] [address] Care Team Providers Care Weed Inspector Name Role Phone Swapnil Lopez MD Unavailable [phone] Damaso Black MD Primary Care Provider [phone] Darío Rubio MD Unavailable [phone] Reason for Visit * Reason Onset Date Comments Referral 12/20/[address] Gary Smith Encounter Details Date Type Department Care Team (Late st Contact Info) Description 12/20/2023 Telephone Cancer Care Medical Oncology [place] [phone] Darío Rubio MD [address] [place] [address] Referral (Rad onc Dr. Jairo Smith) Social History Tobacco Use Types Packs/Day Years [...] Telephone Encounter - Aislinn Viera RN - 12/20/2023 11:37 AM EDT Patient referral for Dr. Jairo Smith faxed to his office. Included facesheet, yesterday's office visit, MRI, PET and path. Confirmation received. documented in this encounter Plan of Treatment Upcoming Encounters Date Type Department Care Team (Late st Contact Info) Description 09/11/2024 1:45 PM EST Office Visit [facility] [address] [facility] [place] [address] Swapnil Lopez MD [address] [place] [address] 10/21/2024 2:00 PM EST Appointment [facility] MRI [address] [place], [place] [phone] Jacky Shirley MD 1 [facility] [place], [place] [phone] 10/23/2024 1:45 PM EST Appointment [facility] One [place], [place] [phone] Olena Darby APRN 1 [facility] [place], [place] [phone] documented as of this encounter Goals Goal [...] on filedocumented in this encounter Care Teams Weed Inspector Relationship Specialty Start Date End Date Damaso Black MD 100[address] [facility] [address] [place] [address] PCP - General Family Medicine 11/22/22 Swapnil Lopez MD [address] [place] [phone] Internal Medicine-Gastroenterology 02/16/22 Darío Rubio MD [address] [facility] [address] [place] [phone] Internal Medicine-Medical Oncology 12/11/23 documented as of this encounter
--- OUTSIDE RECORDS SUMMARY | 2024-08-15 13:52 | XMS_ITS | Encounter Summary ---
Author Organization [place] [address] Care Team Providers Care Home Companion Name Role Phone Swapnil Lopez MD Unavailable [phone] Damaso Black MD Primary Care Provider [phone] Darío Rubio MD Unavailable [phone] Reason for Visit * Reason Onset Date Comments Medication Management 01/01/2024 Patient is calling regarding the traMADoL (ULTRAM) 50 mg Oral Tablet script that was sent on 12/29/2023 Encounter Details Date Type Department Care Team (Late st Contact Info) Description 01/01/2024 Telephone Cancer Care Medical Oncology [place] [phone] Mya Naranjo MD [address] [place] [address] Medication Management (Patient is calling regarding the traMADoL (ULTRAM) 50 mg Oral Tablet script that was sent on 12/29/2023) Social History Tobacco Use Types Packs/Day Years [...] of 10 tablets per day 50 Tablet 01/01/2024 documented in this encounter Miscellaneous Notes * Telephone Encounter - Nicole Melendez RN - 01/01/2024 2:33 PM EDT Pt called stating that the pharmacy was unable to fill her tramadol from 12/28 as there was an insurance issue. Pt called back stating that the [facility] in [place] is able to fill 50 tabs today andremaining amount on 01/06. Will forward new prescriptions to Dr. Naranjo for approval. Nicole Melendez RN * Telephone Encounter - Yaa Canchola, Clerical Staff - 01/01/2024 12:54 PM EDT Patient states that [facility] in [place], [place] is able to give her 50 tablets of the Tramadol and will be able to give remainder on Saturday 01/06. * Telephone Encounter - Adrianna Zabala, Elierical Staff - 01/01/2024 12:29 PM EDT Reason for call: Seamus is calling stating that she did not get the traMADoL (ULTRAM) 50 mg Oral Tablet script that was sent on 12/29/2023. She received a message from the pharmacy saying that there was an insurance issue. Preferred call back number:[phone] documented in this encounter Plan of Treatment Upcoming Encounters Date Type Department Care Team (Late st Contact Info) Description 09/11/2024 1:45 PM EST Office Visit [facility] [address] [place] [address] Swapnil Lopez MD [address] [place] [address] 10/21/2024 2:00 PM EST Appointment [facility] [address] [place] [address] Jacky Shirely MD [address] [place] [address] [facility] [place], [place] [id number] 10/23/2024 1:45 PM EST Appointment [facility] [place] [address] Olena Darby APRN [address] [place] [address] [place] [address] documented as of this encounter [...] Pain for up to 30 days. MAX of 10 tablets per day Reorder 12/29/2023 01/01/2024 documented as of this encounter Additional Health Concerns Assessment Noted Time PHQ-9 Depression Total Score: 13 024 1:47 PM EDT PHQ-2 Depression Total Score: 3 12/29/19 24 1:47 PM EDT documented as of this encounter Care Teams Home Companion Relationship Specialty Start Date End Date Damaso Black MD 1005 [facility] [address] [place] [address] PCP - General Family Medicine 11/22/22 Swapnil Lopez MD [address] [place] [phone] Internal Medicine-Gastroenterology 02/16/22 Darío Rubio MD [address] [place] [address] Internal Medicine-Medical Oncology 12/11/23 documented as of this encounter
--- OUTSIDE RECORDS SUMMARY | 2024-08-15 13:52 | XMS_ITS | Encounter Summary ---
Author Organization [place] [address] Care Team Providers Care Hog Trader Name Role Phone Swapnil Lopez MD Unavailable [phone] Damaso Black MD Primary Care Provider [phone] Jeremías Amin MD Unavailable [phone] Encounter Details Date Type Department Care Team (Latest Contact Info) Description 12/19/2023 11:06 AM EDT - 12/19/2023 11:59 PM EDT Hospital Encounter [facility] [place] [address] Invasive ductal carcinoma of left breast, [...] PM EST Office Visit [facility] [address] [place] [address] Swapnil Lopez MD [address] [place] [address] 10/21/2024 2:00 PM EST Appointment [facility] MRI [address] [place] [address] Jacky Shirley MD [address] [place] [address] [place] [address] 10/23/2024 1:45 PM EST Appointment [facility] [place] [address] Olena Darby, YON 1 [facility] [address] documented as of this encounter Goals Goal [...] Diagnosis Comments EK EKG 12 LEAD Routine 12/19/2023 11:10 AM EDT Invasive ductal carcinoma of left breast, stage 4 (HCC) documented in this encounter Results * EK EKG 12 LEAD (12/19/2023 11:10 AM EDT) Anatomical Region Laterality Modality Electrocardiogra phy 12/19/2023 11:1 7 AM EDT Impressions 12/19/2023 6:07 PM EDT ?[facility] ? Test Date: ?2023-12-19 Pat Name: ? RA SY ?Department: ?? DEPID ? Room: ? Gender: ? Female ? Instrument Lens Inspector: ?? Am : ?1960 ? Requested By: JEREMÍAS AMIN Order Number: [id number] ?Reading : ?? Yvan Gibbs ? Measurements Intervals ?[place] ? Rate: ? 61 ? P: ?37 LA: ? 116 ?QRS: ?18 QRSD: ? 93 ? T: ?17 QT: ? 391 ? QTc: ?395 ? Interpretive Statements SINUS RHYTHM WITH SINUS ARRHYTHMIA NONSPECIFIC T-WAVE ABNORMALITY Electronically Signed On 12-19-2023 18:07:05 EDT by Yvan Gibbs Narrative Procedure Note Yvan Gibbs MD - 12/19/2023 IMPRESSION [facility] Test Date: 2023-12-19 Pat Name: RA SY Department: DEPID Room: Gender: Female Instrument Lens Inspector: Am : 1960 Requested By: JEREMÍAS AMIN Order Number: [id number] Reading MD: Yvan Gibbs Measurements Intervals Callery Rate: 61 P: 37 LA: 116 QRS: 18 QRSD: 93 T: 17 QT: 391 QTc: 395 Interpretive Statements SINUS RHYTHM WITH SINUS ARRHYTHMIA NONSPECIFIC T-WAVE ABNORMALITY Electronically Signed On 12-19-2023 18:07:05 EDT by Yvan Gibbs us Jeremías Amin MD IMG ECG ORDERABLES Final Resul t documented in this encounter Visit Diagnoses Diagnosis Invasive ductal carcinoma of left breast, stage 4 (HCC) documented in this encounter Care Teams Hog Trader Relationship Specialty Start Date End Date Damaso Black MD 100[address] [facility] 22 [place] [address] PCP - General Family Medicine 11/22/22 Swapnil Lopez MD [address] [place] [phone] Internal Medicine-Gastroenterology 02/16/22 Jeremías Amin MD [address] [place] [address] Internal Medicine-Medical Oncology 12/11/23 documented as of this encounter
--- OUTSIDE RECORDS SUMMARY | 2024-08-15 13:52 | XMS_ITS | Encounter Summary ---
Author [place] [address] Care Team Providers Care Derrick Boat Lever Operator Name Role Phone Swapnil Lopez MD Unavailable [phone] Damaso Black MD Primary Care Provider [phone] Darío Rubio MD Unavailable [phone] Encounter Details Date Type Department Care Team (Late st Contact Info) Description 12/29/2023 Telephone [facility] [place] [address] Darío Rubio MD [address] [place], [place] [id number] Social History Tobacco Use Types Packs/Day Years [...] Filled Start Date End Date ribociclib (KISQALI) 600 mg/day (200 mg x 3) Oral TabletIndications: Invasive ductal carcinoma of breast, left (HCC) Take 3 tablets (600 mg) by mouth once daily with or without food for 21 days, followed by 7 days off. 63 Tablet 01/08/2024 10:07 AM EDT 01/03/2024 4 anastrozole (ARIMIDEX) 1 mg Oral TabletIndications: Invasive ductal carcinoma of breast, left (HCC) Take 1 Tablet by mouth daily. Take with or without food 30 Tablet 11 01/03/2024 4 documented in this encounter Miscellaneous Notes * Addendum Note - Eleuterio Osullivan RN - 01/03/2024 12:00 PM EDTAddended by: ELEUTERIO OSULLIVAN on: 01/03/2024 12:00 PM Modules accepted: Orders * Telephone Encounter - Eleuterio Osullivan RN - 12/29/2023 12:51 PM EDT Routed to med onc scheduling to get patient scheduled ANNA. documented in this encounter Plan of Treatment Upcoming Encounters Date Type Department Care Team (Late st Contact Info) Description 09/11/2024 1:45 PM EST Office Visit [facility] [address] [facility], [place] [phone] Swapnil Lopez MD [address] [place] [address] 10/21/2024 2:00 PM EST Appointment [facility] MRI [address] [place] [address] Jacky Shirley MD [address] [place] [address] [place], [place] [id number] 10/23/2024 1:45 PM EST Appointment [facility] [place], [place] [id number] Olena Darby APRN [address] [place] [address] [place], [place] [id number] documented as of this encounter Goals Goal [...] documented as of this encounter Care Teams Derrick Boat Lever Operator Relationship Specialty Start Date End Date Damaso Black MD 1005 [facility] [address] [place] [address] PCP - General Family Medicine 11/22/22 Swapnil Lopez MD [address] [place] [address] Internal Medicine-Gastroenterology 02/16/22 Darío Rubio MD [address] [place] [address] Internal Medicine-Medical Oncology 12/11/23 documented as of this encounter
--- OUTSIDE RECORDS SUMMARY | 2024-08-15 13:52 | XMS_ITS | Encounter Summary ---
Author Organization [place] [address] Care Team Providers Care Insole Beveler Name Role Phone Swapnil Lopez MD Unavailable [phone] Damaso Black MD Primary Care Provider [phone] Darío Rubio MD Unavailable [phone] Encounter Details Date Type Department Care Team (Late st Contact Info) Description 12/18/2023 Telephone [facility] [place] [address] Darío Rubio MD [address] [place], [place] [id number] Social History Tobacco Use Types Packs/Day Years [...] Telephone Encounter - Aislinn Viera RN - 12/19/2023 1:44 PM EDT Patient will follow up on 12/28 at 10:30 with palliative. * Telephone Encounter - Veda Mcfarland, Clerical Staff - 12/18/2023 10:35 AM EDT left a message to schedule palcare consult * Telephone Encounter - Aislinn Viera RN - 12/18/2023 9:49 AM EDT Patient will see Dr. Rubio for follow up tomorrow. Needs to follow up with rad onc and palliative care. Routing to med onc scheduling to assist. documented in this encounter Plan of Treatment Upcoming Encounters Date Type Department Care Team (Late st Contact Info) Description 09/11/2024 1:45 PM EST Office Visit [facility] [address] [place] [address] Swapnil Lopez MD [address] [place] [address] 10/21/2024 2:00 PM EST Appointment [facility] [place] MRI [address] [place] [phone] Jacky Shirley MD 1 [facility] [place] [address] 10/23/2024 1:45 PM EST Appointment [facility] [place] [address] Olena Darby APRN 1 [facility] [place] [address] documented as of this encounter [...] on filedocumented in this encounter Care Teams Insole Beveler Relationship Specialty Start Date End Date Damaso Black MD 1005 [facility] [address] [place], [place] [phone] PCP - General Family Medicine 11/22/22 Swapnil Lopez MD [address] [place] [address] Internal Medicine-Gastroenterology 02/16/22 Darío Rubio MD 1 [place] [address] Internal Medicine-Medical Oncology 12/11/23 documented as of this encounter
--- OUTSIDE RECORDS SUMMARY | 2024-08-15 13:52 | XMS_ITS | Encounter Summary ---
Author [place] [address] Care Team Providers Care House Visitor Name Role Phone Swapnil Lopez MD Unavailable [phone] Damaso Black MD Primary Care Provider [phone] Darío Rubio MD Unavailable [phone] Reason for Visit * Reason Onset Date Comments Paperwork/forms 12/13/2023 [place] to [place] [facility] Encounter Details Date Type Department Care Team (Late st Contact Info) Description 12/13/2023 Telephone [facility] Medical [facility] [place] [id number] Darío Rubio MD [address] [place] [address] Paperwork/forms ( note to [place]) Social History Tobacco Use Types Packs/Day Years [...] Telephone Encounter - Aislinn Viera RN - 12/13/2023 1:01 PM EDT Called and spoke to patient's son, Eloy, discussing needs they need to expedite patient from being released [facility]. In order for patient to be released, he is requesting to have a letter that discusses the urgency of treatment, medications that would be needed and potential life expectancy ifno treatment is planned. Explained that I can write a note and send it to the [place] [facility]. documented in this encounter Plan of Treatment Upcoming Encounters Date Type Department Care Team (Late st Contact Info) Description 09/11/2024 1:45 PM EST Office Visit [facility] [address] [facility] [place] [address] Swapnil Lopez MD [address] [place] [address] 10/21/2024 2:00 PM EST [facility] [address] [phone] Jacky Shirley MD 1 [facility] [address] 10/23/2024 1:45 PM EST Appointment [facility] [place], [place] [id number] Olena Darby APRN 1 [facility] CANCER C[facility] [place], [place] [id number] documented as of this encounter Goals Goal [...] on filedocumented in this encounter Care Teams House Visitor Relationship Specialty Start Date End Date Damaso Black MD 1005 [facility] [address] [place] [address] PCP - General Family Medicine 11/22/22 Swapnil Lopez MD [address] [place] [address] Internal Medicine-Gastroenterology 02/16/22 Darío Rubio MD [address] [facility] [address] [place] [phone] Internal Medicine-Medical Oncology 12/11/23 documented as of this encounter
--- OUTSIDE RECORDS SUMMARY | 2024-08-15 13:52 | XMS_ITS | Encounter Summary ---
Author Organization [place] [address] Care Team Providers Care Biotech Production Specialist Name Role Phone Swapnil Lopez MD Unavailable [phone] Damaso Black MD Primary Care Provider [phone] Darío Rubio MD Unavailable [phone] Mya Naranjo MD Unavailable [phone] Ashley Ordonez APRN Unavailable [phone] Nicole Melendez RN Unavailable Unavailable Encounter Details Date Type Department Care Team (Late st Contact Info) Description 12/20/2023 Telephone [place] [address] Pat Bahena, Clerical Staff Social History Tobacco [...] Notes * Telephone Encounter - Pat Bahena, Elierical Staff - 01/16/2024 2:09 PM EDT Unable to reach. Please transfer to Integrative Oncology @[phone]. - Pat Bahena * Telephone Encounter - Pat Bahena Clerical Staff - 01/15/2024 2:36 PM EDT LVM regarding Integrative Oncology referral. * Telephone Encounter - Pat Bahena Clerical Staff - 12/29/2023 2:18 PM EDT LVM regarding Integrative Oncology referral. * Telephone Encounter - Pat Bahena Clerical Staff - 12/20/2023 12:33 PM EDT LVM regarding Integrative Oncology referral. documented in this encounter Plan of Treatment Upcoming Encounters Date Type Department Care Team (Late st Contact Info) Description 09/11/2024 1:45 PM EST Office Visit [facility] [address] [facility] [place] [address] Swapnil Lopez MD [address] [place] [address] 10/21/2024 2:00 PM EST Appointment [facility] [address] [facility] [place], [place] [phone] Jacky Shirley MD [address] [place] [address] [place], [place] [phone] 10/23/2024 1:45 PM EST Appointment [facility] [place], [place] [phone] Olena Darby APRN [address] [place] [address] documented as of this encounter Goals Goal [...] on filedocumented in this encounter Care Teams Biotech Production Specialist Relationship Specialty Start Date End Date Damaso Black MD [address] [place] [address] PCP - General Family Medicine 11/22/22 Swapnil Lopez MD [address] [place] [address] Internal Medicine-Gastroenterology 02/16/22 Darío Rubio MD [address] [facility] [place] [address] Internal Medicine-Medical Oncology 12/11/23 Mya Naranjo MD [address] [facility] [place] [address] Family Medicine - Hospice And Palliative Medicine 01/04/24 Ashley Ordonez APRN [address] [place] [address] [place] [address] Nurse Practitioner 01/04/24 Nicole Melendez, RN Registered Nurse 01/04/24 documented as of this encounter
--- OUTSIDE RECORDS SUMMARY | 2024-08-15 13:52 | XMS_ITS | Encounter Summary ---
Author [place] [address] Care Team Providers Care Card Hanger Name Role Phone Swapnil Lopez MD Unavailable [phone] Damaso Black MD Primary Care Provider [phone] Darío Rubio MD Unavailable [phone] Reason for Visit * Reason Onset Date Comments Cancelled Appointment 12/15/2023 Calling to cancel patients appointment Encounter Details Date Type Department Care Team (Late st Contact Info) Description 12/15/2023 Telephone [facility] Medical Oncology [place] [phone] Darío Rubio MD [address] [place], [place] [phone] Cancelled Appointment (Calling to cancel patients appointment) Social History Tobacco Use Types Packs/Day [...] Encounter - Aislinn Viera RN - 12/18/2023 8:10 AM EDT RN aware. * Telephone Encounter - Rosanna Andres DTR - 12/15/2023 3:49 PM EDT Reason for call: Pt called to reschedule her appt with Dr. Rubio. Dr. Rubio has no availability the week of 12/24. Pt ask to come in on 12/18, son is off work and can bring her, and she states that she was instructed to not put this off. She is scheduled for lab and f/u on 12/18. Preferred call back number:She has her Mom's phone today [phone] * Telephone Encounter - Aislinn Viera RN - 12/15/2023 10:38 AM EDT Will follow up with patient on 12/17 if patient has not reached out to reschedule. * Telephone Encounter - Adrianna Cintron - 12/15/2023 10:23 AM EDT Detailed visit type(s) needing canceled: Madelyn JAMES Current visit date: 12/26/23 Ordering provider: Darío Rubio Reason for canceling: Patient is being released today from [facility] custody and appointment needs to be canceled in order for it to not be charged to [facility]'s [facility]. Patient will be calling to reschedule her appointments. Please try to schedule her appointment the week of 12/24 per Carine and also please let Carine know when patient is rescheduled. Appointment(s) rescheduled to date(s): Preferred call back number: [phone] ([facility]) documented in this encounter Plan of Treatment Upcoming Encounters Date Type Department Care Team (Late st Contact Info) Description 09/11/2024 1:45 PM EST Office Visit [facility] [address] [place] [address] Swapnil Lopez MD [address] [place] [address] 10/21/2024 2:00 PM EST Appointment [facility] MRI [address] [place] [address] Jacky Shirley MD [address] [place] [address] [place] [address] 10/23/2024 1:45 PM EST Appointment [facility] [place] [address] Olena Darby APRN [address] [place] [address] [place] [address] documented as [...] on filedocumented in this encounter Care Teams Card Hanger Relationship Specialty Start Date End Date Damaso Black MD 1005 [facility] [address] [place] [address] PCP - General Family Medicine 11/22/22 Swapnil Lopez MD [address] [place] [address] Internal Medicine-Gastroenterology 02/16/22 Darío Rubio MD [address] [place] [address] [place] [address] Internal Medicine-Medical Oncology 12/11/23 documented as of this encounter
--- OUTSIDE RECORDS SUMMARY | 2024-08-15 13:52 | XMS_ITS | Encounter Summary ---
Author Organization [place] [address] Care Team Providers Care Conveyor Belt Operator Name Role Phone Swapnil Lopez MD Unavailable [phone] Damaso Black MD Primary Care Provider [phone] Darío Rubio MD Unavailable [phone] Reason for Visit * Reason Onset Date Comments Information Only 12/08/2023 [facility] Encounter Details Date Type Department Care Team (Late st Contact Info) Description 12/08/2023 Telephone Cancer Care Medical Oncology [place] [phone] Bonifacio Ybarra MD [address] [facility] [address] [place] [address] Information Only (Location of [facility]) Social History Tobacco Use Types Packs/Day Years [...] encounter Miscellaneous Notes * Telephone Encounter - Tessa Dotson, Clerical Staff - 12/12/2023 3:34 PM EDT MD should be Ramiro Ybarra. Encounter not routed. * Telephone Encounter - Tessa Dotson Clerical Staff - 12/08/2023 8:26 AM EST Reason for call: [facility] this [facility] at [facility]. Directions given. No further needs. documented in this encounter Plan of Treatment Upcoming Encounters Date Type Department Care Team (Late st Contact Info) Description 09/11/2024 1:45 PM EST Office Visit [facility] [address] [place] [facility] [place] [address] Swapnil Lopez MD [address] [place] [place] [address] 10/21/2024 2:00 PM EST Appointment [facility] [place] MRI [address] [place] [address] Jacky Shirley MD 1 [facility] [place] [address] 10/23/2024 1:45 PM EST Appointment [facility] [address] [place], [place] [phone] Olena Darby APRN 1 [place], [place] [phone] documented as of this encounter Goals Goal [...] on filedocumented in this encounter Care Teams Conveyor Belt Operator Relationship Specialty Start Date End Date Damaso Black MD 1005 [facility] [address] [place] [address] PCP - General Family Medicine 11/22/22 Swapnil Lopez MD [address] [place] [address] Internal Medicine-Gastroenterology 02/16/22 Darío Rubio MD [address] [facility] [address] Internal Medicine-Medical Oncology 12/11/23 documented as of this encounter
--- OUTSIDE RECORDS SUMMARY | 2024-08-15 13:52 | XMS_ITS | Encounter Summary ---
Author Organization [place] [address] Care Team Providers Care Cheese Production Supervisor Name Role Phone Swapnil Lopez MD Unavailable [phone] Damaso Black MD Primary Care Provider [phone] Darío Rubio MD Unavailable [phone] Reason for Visit * Reason Comments Consult Encounter Details Date Type Department Care Team (Latest Contact Info) Description 12/29/2023 10:30 AM EDT - 12/29/2023 11:59 PM EDT Hospital Encounter [facility] [place] [id number] [phone] Mya Naranjo MD [address] [place] [address] Nicole Melendez, RN Armando Vieira, TRUCK DRIVER HELPER History of stomach cancer (Primary Dx); Invasive ductal carcinoma of breast, left (HCC); Palliative care by specialist; Cancer related pain; Crohn's disease with complication, unspecified gastrointestinal tract location (HCC); Anxiety and depression Discharge Disposition: Home or Self Care Social [...] Sign Reading Time Taken Comments Blood Pressure 120/88 12/29/2023 11:22 AM EDT Pulse 90 12/29/2023 11:22 AM EDT Temperature 35.9 ??C (96.6 ??F) 12/29/2023 1 1:22 AM EDT Respiratory Rate 18 12/29/2023 11:2 2 AM EDT Oxygen Saturation 90% 12/29/2023 11: 22 AM EDT Inhaled Oxygen Concentration - - Weight 64.3 kg (141 lb 12.8 oz) 024 11:22 AM EDT Height - - Body Mass Index 25.94 12/19/2023 9:49 AM EDT documented in this encounter Functional [...] FOR NAUSEA 30 Tablet 5 10/21/2022 01/05/2024 promethazine (PHENERGAN) 25 mg Oral Tablet Take [...] days. MAX of 10 tablets per day 150 Tablet 12/29/2023 promethazine (PHENERGAN) 25 mg Oral Tablet Take 1 Tablet by mouth every 4 hours as needed for Nausea or Vomiting for up to 30 days. 25mg every 4-6 hours as needed 30 Tablet 3 12/29/2023 traMADoL (ULTRAM) 50 mg Oral Tablet Take 2 Tablets by mouth every 4 hours as needed for Pain for up to 30 days. MAX of 10 tablets per day 150 Tablet 12/29/2023 4 documented in this encounter Discharge Disposition Disposition Code Departure Means Destination Home or Self Care documented in this encounter Progress Notes * Mya Naranjo MD - 12/29/2023 10:30 AM EDT PALLIATIVE CARE SERVICES OUTPATIENT CLINIC INITIAL CONSULTATION NOTE NAME: Marleni Way DATE OF : 1960 DATE OF SERVICE: 12/29/2023 Palliative [facility] Services Outpatient Clinic has been asked by Dr Rubio to consult and offer an opinion and recommendations about symptom management and other aspects of supportive cancer care. HPI 63 yo with 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 Treatment delayed by recent 6 month incarceration, states has been back home for 3 weeks 44 year hx of Crohn's/ multiple GI surgeries/rectal fistula appt 01/[address] Fry Chronic pain related to Crohn's, sees Dr Chucho Rankin Pain Management Irene MCADAMS Neuro consult pending for blackouts R/O FLASH WELDER disease ASSESSMENT Cancer related pain*: complicated by chronic pain due to Crohn's disease. -continue current pain regimen Tramadol 50 mg 2 tabs every 4 hours as needed MAX 10 tabs/day(#150 12/29/23) plan would be to transition back to Dr Rankin when able Naloxone ordered Opioid induced Constipation: none, has Lomotil for Crohn's Mood: PHQ-9=13 IRMA-7=11 will monitor Nausea: has Zofran and Phenergan as needed Appetite/weight loss: 141 today states lost weight during incarceration, gaining weight back while at home Advance Care Planning: completed Goals of Care: complete cancer treatments, return to work, keep Crohn's stable Psychosocial distress: recent incarceration,legal issues, financial insecurity see [facility] SW notes Spiritual distress: no needs identified today Follow up 01/[address] Rubio visit *Safety Plan for Opioid prescribing ORT=0: monthly visits, controlled substance agreement completed, urine drug testing per protocol, Cory review at every visit, Naloxone provision per [place] Physician Protocol PROBLEM LIST Patient Active Problem List Diagnosis Date Noted Invasive ductal carcinoma of breast, left ([facility]) 10/30/2023 De Quervain's tenosynovitis 03/24/2021 De Quervain thyroiditis 02/05/2021 De Quervain's tenosynovitis, left 02/05/2021 Ulcer of great toe, left, with necrosis of muscle ([facility]) 11/10/2017 Crohn's disease of colon with complication ([facility]) 11/10/2017 Laceration of left great toe without foreign body present or damage to nail 11/10/2017 Anxiety and depression 07/25/2017 Food impaction of esophagus 06/25/2016 Exacerbation of Crohn's disease ([facility]) 04/02/2015 Alcoholism ([facility]) Crohn's History of stomach cancer Depression ONCOLOGY HISTORY Oncology History Invasive ductal carcinoma of breast, left ([facility]) 10/30/2023 Initial Diagnosis Invasive ductal carcinoma of breast, left ([facility]) Pathology A) Left breast mass at 3 [...] 68 gene panel testing results were negative. ADVANCE CARE PLANNING Decision-making capacity: yes Surrogate decision-maker: family law attorney Eloy Martinez [facility] surrogate document on file: yes Advance directive/living will on file: no SYMPTOM ASSESSMENT Physical Cancer pain: mild left breast pain getting better since on estrogen treatment, chronic pain due to Crohn's takes 10-Tramadol 50 tabs a day and feels that this regimen is stable for treating both kinds of pain for now Dyspnea: no Anorexia/weight loss: 141 today states lost weight during incarceration, gaining weight back while at home Nausea/vomiting: has Zofran and Phenergan if needed Constipation/diarrhea: Crohn's disease has Lomotil as needed Fatigue and sleep/wake disturbances: yes per notes she takes Melatonin Other: states has black out spells has Neuro consult pending Emotional/Psychological Depression/demoralization/despair: PHQ-9=13 Anxiety: IRMA-7=11 Other: Family/Social/Interpersonal , 1 son, lives with her parents on a farm ,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 All other systems reviewed and are negative. PERTINENT HISTORY AND BACKGROUND INFORMATION Past Medical History: Diagnosis Date Anemia Cancer (HCC) Crohn disease (HCC) Encounter for blood transfusion Lab test positive for detection of COVID-19 virus 02/12/2021 02/16/21=pt stated that she tested COVID positive on 02/12/21 @ [facility], instructed pt to notify Dr Lantigua's office to reschedule surgery Past Surgical History: Procedure Laterality Date ANTERIOR COMPARTMENT DECOMPRESSION Left 04/15/2021 LEFT DEQUERVAINS RELEASE ; Surgeon: Henry Lantigua MD; Location: [facility]; Service: Hand BREAST BIOPSY Left 10/26/2023 2:00 BREAST BIOPSY Left 10/26/2023 axilla node SECTION x2 COLON SURGERY x11 crohns COLONOSCOPY COLOSTOMY ILEOSTOMY OR JEJUNOSTOMY UPPER GASTROINTESTINAL ENDOSCOPY N/A 06/25/2016 ESOPHAGOGASTRODUODENOSCOPY with biopsy with conscious sedation; Surgeon: Christopher Matthews MD PHD; Location: [facility]; Service: Endoscopy Family History Problem Relation Age of Onset Heart Disease Father Social History Socioeconomic History Marital status: Spouse name: Not on file Number of children: Not on file Years of education: Not on file Highest education level: Not on file Occupational History Not on file Tobacco Use Smoking status: Never Smokeless tobacco: Never Vaping Use Vaping Use: Never used Substance and Sexual Activity Alcohol use: Not [...] Current Outpatient Medications Medication Sig Dispense Refill diphenoxylate-atropine (LOMOTIL) 2.5-0.025 mg Oral Tablet TAKE 2 TABLETS BY MOUTH FOUR TIMES DAILY NEEDED. NO MORE THAN 8 TABLETS PER DAY 240 Tablet 3 loperamide (IMODIUM) 2 mg Oral Capsule TAKE 1 CAPSULE BY MOUTH EVERY 3 HOURS (Patient not taking: Reported on 12/11/2023) 200 Capsule 0 ondansetron (ZOFRAN) 4 mg Oral Tablet TAKE 1 TABLET BY MOUTH EVERY 6 HOURS NEEDED FOR NAUSEA (Patient not taking: Reported on 12/11/2023) 30 Tablet 5 predniSONE (DELTASONE) 10 mg Oral Tablet Take 1 Tablet by mouth daily. (Patient not taking: Reported on 12/11/2023) 112 Tablet 1 traMADoL (ULTRAM) 50 mg Oral Tablet TAKE 2 TABLETS BY MOUTH THREE TIMES DAILY ONLY FOR 7 DAYS 42 Tablet 1 No current facility-administered medications for this visit. Allergies Allergen Reactions Ielhb-Sqozx-6-Vma-Frv-Ojzeeg Hives Sulfa (Sulfonamide Antibiotics) PHYSICAL EXAMINATION Constitutional: Vital signs are noted,Seen in exam room , No apparent distress, alert, oriented, interactive HEENT: Normocephalic Neck: Supple RESP: Respiratory effort normal CV: Rate is normal GI: Not distended : Defer MSK: Ambulates in room without difficulty SKIN: Warm and dry NEURO: Non focal Psych: Normal mood and affect I spent 95 minutes today, preparing to see the patient, review and documentation, as well as time spent with the patient, evaluation and treatment. PATIENT INSTRUCTIONS There are no Patient Instructions on file for this visit. 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 When asked whether she has seen a therapist in the past or if she is interested in seeing one now, she says she does not have time to add another appointment. Exhibits persecutory schema, saying she was wrongfully convicted and is suing. Will continue offering support and encouragement/empower her to develop adaptive coping skills. Assessment ongoing - Family Coping: No concerns for family coping per today's discussion; however, pt states she had hermom stay in lobby because of her anxiety - says her whole family is anxious. Will continue to assess. Support System: Adequate. Support from parents and son Eloy. Psychiatric/Mental Health/Substance History: Psych: Per chart, pt saw PCP for support with anxiety (Dr. Dhaliwal in 2018). At this visit, pt stated that she had a drinking problem in the past and had been sober but had recently relapsed. Psychotropic meds like Lexapro trialed in past but she says theydid not work. MSE: Anxious mood/affect; psychomotor agitation (fidgeting fingers, leg shaking, broke nail, etc.);avoidant eye contact; circumstantial thought process; persecutory thought content, evidenced by rumination and perseveration Substance use hx: Denies despite extensive documentation of alcohol use disorder, indeterminate whether in remission. Assessment ongoing - Financial Issues: Says she receives 's benefits and is ineligible for SSI or other income-based benefits. Will collaborate with oncology SW team to address specific needs. She reports Boost isfinancially burdensome, recommended purchasing through pharmacy for cheaper wiggins. 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 farm Patient's Understanding of Medical Condition/Prognosis- Knows Diagnosis: Yes Knows Prognosis: Guarded Patient's preference about sharing medical information: Share with patient directly - family involved in decision making Family/Surrogate Awareness of Illness: Yes, family is aware Patient's preference of where to meet: No preference Patient Decision Making Preferences- ACP Documents: Yes, on file; son Eloy is sole HCS Interested in Completion: N/A Pt preference for place of : Home/Hospital/Other Not therapeutically appropriate to discuss today Arrangements/Wishes: Not therapeutically appropriate to discuss today Legacy Work: Will explore at future visits/when therapeutically appropriate Protestant/Spiritual Orientation/Involvement in spiritual community: Belongs to muslim jewish. Will explore further at future visits Desire for parts representative support: Yes Interpretive Summary- Objective/Subjective/Clinical impressions/Problems: Demographics/PMH relevant to referral/treatmentplan: Marleni Way ) is a 63-year-old female with PMH notable for left breast cancer with metsto left frontal bone (dx 2023). Treatment was delayed for six months due to incarceration. Reports she was released three weeks ago. Comorbid issues, namely Chron's and multiple GI surgeries. See Dr. Naranjo's note for important details. Dr. Rubio has referred patient to palliative care for recommendations about symptom management andpsychosocial support. Today, pal-care SW, Dr. Naranjo met with Seamus for initial consult visit. I provided introduction andoverview of role on pal-care team, and Dr. Naranjo and I explored patient's impression of how our team might best support her symptom needs and psychosocial concerns. Seamus exhibits limited capacity for goal- directed conversation, relating most topics back to being wrongfully convicted. Demonstrates awareness of pervasive anxiety limiting healthy coping, yet remains guarded about engaging in therapy. Due to incarceration, pt is early in treatment journey - SW plan of care ongoing. SW to build ongoing case formulation to inform psychosocial interventions (e.g., mindfulness, cognitive distortions, radical acceptance) SW will empower patient to establish/ build upon adaptive coping skills, reduce anxiety and psycho- emotional symptom burden, increase life satisfaction, and resolve overwhelm. Protective factors: Strong family and social support system; reciprocal relationships; justyna/spiritual beliefs; housing security Risk factors: High psychosocial/spiritual/occupational acuity; Poor prognosis; progression of disease; psychological distress; legal barriers to receiving treatment (incarcerated for 6 months); financial strain; role loss/strain; anticipatory grief/anxiety; maladaptive schemas/coping; demoralization; under- treated depression/anxiety; maladaptive adjustment; family dysfunction; impairment of social relationships Suggestions/Plans/Referrals: Continue to assess and address identified or reported psychosocial/spiritual/ distress or impairment; place [facility] referral with pt's permission 2. Continue building therapeutic alliance/rapport with patient in order to support their goals of care; 3. Conduct financial/general needs assessment each visit; will provide linkage to identified resources and care; Collaborate with oncology SW team as needed 4. See patient every 6-8 weeks for continued support PHQ-9/IRMA-7- Last completed: IRMA-7 [...] health professional. UDS- Last Completed: 12/29/23 Results: pending Recommendations: repeat at provider's discretion Psychosocial Acuity: Moderate Armando JEAN BAPTISTE, HUMAN RESOURCES MANAGER Palliative Care Piping Engineer [phone] documented in this encounter Miscellaneous Notes * Patient Instructions - Mya Naranjo MD - 12/29/2023 10:30 AM EDT Patient Instructions - take all medications as prescribed: - do not take more pills than prescribed - if you are still in pain, CALL us first For opioid induced constipation - if you start running into trouble, start miralax or senna. You can get these over the counter - goal is to remain regular Please check MyChart or your After Visit Summary for your next appointment date and time. Call us with any questions or concerns before your next appointment. It was great to see you today ! Dr Mya Naranjo * Addendum Note - Era Thompson MA - 12/29/2023 10:30 AM EDTEncounter addended by: Era Thompson MA on: 12/29/2023 1:55 PM Actions taken: Flowsheet accepted * Addendum Note - Armando Vieira MSW - 12/29/2023 10:30 AM EDTEncounter addended by: Armando Vieira MSW on: 12/29/2023 5:53 PM Actions taken: Clinical Note Signed * Addendum Note - Armando Vieira MSW - 12/29/2023 10:30 AM EDTEncounter addended by: Armando Vieira MSW on: 01/01/2024 4:12 PM Actions taken: Clinical Note Signed documented in this encounter Plan of Treatment Upcoming Encounters Date Type Department Care Team (Late st Contact Info) Description 09/11/2024 1:45 PM EST Office Visit [facility] [address] [facility], [place] [id number] Swapnil Lopez MD [address] [place] [phone] 10/21/2024 2:00 PM EST Appointment [facility] [address] [place] [address] Jacky Shirley MD 1 [facility] CANCER [place], [place] [id number] 10/23/2024 1:45 PM EST Appointment [facility] [place], [place] [id number] Olena Darby APRN 1 [facility] [place] [address] documented as of this encounter Goals Goal Patient Goal Type Associated Problems Recent Progress Patient-Stated? Author Breast [facility] Mary Kate Vázquez, RN Note: Patient acknowledges understanding of new diagnosis, plan of care, available resources and how to contact Nurse Navigator with any future questions or concerns. Maintain a healthy diet, exercise regularly and maintain an ideal body weight General Linda Perez, RMA documented as of this encounter Procedures Procedure Name Priority Date/Time Associated Diagnosis Comments DRUG CONFIRMATION, METHADONE - URINE Routine 12/29/2023 1:01 PM EDT History of stomach cancer Invasive ductal carcinoma of breast, left (HCC) Palliative care by specialist DRUG CONFIRMATION, BENZODIAZEPINES - URINE Routine 12/29/2023 1:01 PM EDT History of stomach cancer Invasive ductal carcinoma of breast, left (HCC) Palliative care by specialist DRUGS OF ABUSE WITH REFLEX TO CONFIRMATION, URINE Routine 12/29/2023 1:01 PM EDT History of stomach cancer Invasive ductal carcinoma of breast, left (HCC) Palliative care by specialist documented in this encounter Results * DRUG CONFIRMATION, METHADONE - URINE (12/29/2023 1:01 PM EDT) Methadone <50 Cutoff 50 ng/mL ng/mL 01/01/2024 12:34 AM EDT [facility] EDDP <50 Cutoff 50 ng/mL ng/mL 01/01/2024 12:34 AM EDT [facility] Urine URINE SPECIMEN COLLECTION / Unknown 12/29/2023 1:01 PM EDT 12/29/2023 1:01 PM EDT us Mya Naranjo MD URINE ORDERABLES Final Result [facility] [address] [facility] , [place] [address] * DRUG CONFIRMATION, BENZODIAZEPINES - URINE (12/29/2023 1:01 PM EDT) Diazepam <10 Cutoff 10 ng/mL ng/mL 01/01/2024 12:34 AM EDT [facility] Oxazepam <50 Cutoff 50 ng/mL ng/mL 01/01/2024 12:34 AM EDT [facility] Oxazepam Glucuronide <50 Cutoff 50 ng/mL ng/mL 01/01/2024 12:34 AM EDT [facility] Temazepam <50 Cutoff 50 ng/mL ng/mL 01/01/2024 12:34 AM EDT [facility] Temazepam Glucuronide <50 Cutoff 50 ng/mL ng/mL 01/01/2024 12:34 AM EDT [facility] Nordiazepam <25 Cutoff 25 ng/mL ng/mL 01/01/2024 12:34 AM EDT [facility] Lorazepam <50 Cutoff 50 ng/mL ng/mL 01/01/2024 12:34 AM EDT [facility] Lorazepam Glucuronide <50 Cutoff 50 ng/mL ng/mL 01/01/2024 12:34 AM EDT [facility] Alprazolam <8 Cutoff 8 ng/mL ng/mL 01/01/2024 12:34 AM EDT [facility] alpha-Hydroxyalprazolam <25 Cutoff 2 5 ng/mL ng/mL 01/01/2024 12:34 AM EDT [facility] Clonazepam <10 Cutoff 10 ng/mL ng/mL 01/01/2024 12:34 AM EDT [facility] 7-Aminoclonazepam <25 Cutoff 25 ng/mL ng/mL 01/01/2024 12:34 AM EDT [facility] Midazolam <50 Cutoff 50 ng/mL ng/mL 01/01/2024 12:34 AM EDT [facility] alpha-hydroxymidazolam <50 Cutoff 50 ng/mL ng/mL 01/01/2024 12:34 AM EDT [facility] Triazolam <50 Cutoff 50 ng/mL ng/mL 01/01/2024 12:34 AM EDT [facility] alpha-hydroxytriazolam <50 Cutoff 50 ng/mL ng/mL 01/01/2024 12:34 AM EDT [facility] Flunitrazepam <50 Cutoff 50 ng/mL ng/mL 01/01/2024 12:34 AM EDT [facility] 7-Aminoflunitrazepam <50 Cutoff 50 ng/mL ng/mL 01/01/2024 12:34 AM EDT [facility] Flurazepam <50 Cutoff 50 ng/mL ng/mL 01/01/2024 12:34 AM EDT [facility] Hydroxyethylflurazepam <50 Cutoff 50 ng/mL ng/mL 01/01/2024 12:34 AM EDT [facility] Urine URINE SPECIMEN COLLECTION / Unknown 12/29/2023 1:01 PM EDT 12/29/2023 1:01 PM EDT us Mya Naranjo MD URINE ORDERABLES Final Result [facility] [address] [facility] , [place] [address] * (ABNORMAL) DRUGS OF ABUSE WITH REFLEX TO CONFIRMATION, URINE (12/29/2023 1:01 PM EDT) 6 AM (Heroin) Absent Cutoff 10 ng/mL 12/29/2023 2:34 PM EDT [facility] Amphetamines Absent Cutoff 500 ng/mL 12/29/2023 2:34 PM EDT [facility] Barbiturates Absent Cutoff 200 ng/mL 12/29/2023 2:34 PM EDT [facility] Benzodiazepines Absent Cutoff 200 ng/mL 12/29/2023 2:34 PM EDT [facility] Comment:Additional testing p erformed to confirm absence of prescribed benzodiazepine. Buprenorphine Absent Cutoff 5 ng/mL 12/29/2023 2:34 PM EDT [facility] Cannabinoid Metabolite Absent Cutoff 50 ng/mL 12/29/2023 2:34 PM EDT [facility] Cocaine Metabolite Absent Cutoff 150 ng/mL 12/29/2023 2:34 PM EDT [facility] Fentanyl Absent Cutoff 2 ng/mL 12/29/2023 2:34 PM EDT [facility] Methadone and Metabolite Presumptive Pos(A) Cutoff 300 ng/mL 12/29/2023 2:34 PM EDT [facility] Opiate Absent Cutoff 300 ng/mL 12/29/2023 2:34 PM EDT [facility] Oxycodone Lvl Absent Cutoff 100 ng/mL 12/29/2023 2:34 PM EDT [facility] Urine Creatinine 156.4 mg/dL 12/29/19 24 2:34 PM EDT [facility] Comment: Greater than 20: Consistent with valid sample Greater than 2 but less than 20: Possible dilution Less than 2: Questionable valid sample Urine URINE SPECIMEN COLLECTION / Unknown 12/29/2023 1:01 PM EDT 12/29/2023 1:01 PM EDT Narrative [facility] - 12/29/2023 2:34 PM EDT These drug classes have been qualitatively screened by immunoassay and are for medical purposes only. ??Results should not be used for non-medical purposes. Results reported as presumptive positive will be sent for confirmation. ?? Due to possible factors, such as, dilute/adulterated urine, concentration of drug/metabolite being below the cut-off, or antibody specificity of test reagent, a negative result does not rule out drug use. These results are only valid for urine specimens. Any contamination with vaginal pool/amniotic fluid could cause erroneous results. us Mya Naranjo MD URINE ORDERABLES Final Result [facility] [address] [facility] [place] [address] documented in this encounter Visit Diagnoses Diagnosis History of stomach cancer- Primary Personal history of malignant neoplasm of stomach Invasive ductal carcinoma of breast, left (HCC) Palliative care by specialist Cancer related pain Neoplasm related pain (acute) (chronic) Crohn's disease with complication, unspecified gastrointestinal tract location (HCC) Anxiety and depression Dysthymic disorder documented in this encounter Discontinued Medications Medication Sig Discontinue Reason Start Date End Da te traMADoL (ULTRAM) 50 mg Oral Tablet TAKE 2 TABLETS BY MOUTH THREE TIMES DAILY ONLY FOR 7 DAYS Reorder 04/13/2022 12/29/2023 traMADoL (ULTRAM) 50 mg Oral Tablet Take 2 Tablets by mouth every 4 hours as needed for Pain for up to 30 days. MAX of 10 tablets per day Reorder 12/29/2023 12/29/2023 documented as of this encounter Additional Health Concerns Assessment Noted Time PHQ-9 Depression Total Score: 13 024 1:47 PM EDT PHQ-2 Depression Total Score: 3 12/29/19 24 1:47 PM EDT documented as of this encounter Care Teams Cheese Production Supervisor Relationship Specialty [place] [address] [place] [address] PCP - General Family Medicine 11/22/22 Swapnil Lopez MD [address] [place] [address] Internal Medicine-Gastroenterology 02/16/22 Darío Rubio MD [address] [facility] [place] [address] Internal Medicine-Medical Oncology 12/11/23 documented as of this encounter
--- OUTSIDE RECORDS SUMMARY | 2024-08-15 13:52 | XMS_ITS | Encounter Summary ---
Author Organization [place] [address] Care Team Providers Care Edge Gluer Name Role Phone Swapnil Lopez MD Unavailable [phone] Damaso Black MD Primary Care Provider [phone] Darío Rubio MD Unavailable [phone] Encounter Details Date Type Department Care Team (Late st Contact Info) Description 12/13/2023 Orders Only [facility] 1 [place] [id number] Provider, [address] [place] [address] Social History Tobacco Use Types Packs/Day Years [...] PM EST Office Visit [facility] [address] [place] [facility] [place] [address] Swapnil Lopez MD [address] [place] [address] 10/21/2024 2:00 PM EST Appointment [facility] MRI [address] [place] [address] Jacky Shirley MD [address] [place] [address] [id number] 10/23/2024 1:45 PM EST Appointment [facility] [place] [address] Olena Darby APRN [address] [place] [address] documented as of this encounter Goals [...] Procedure Name Priority Date/Time Associated Diagnosis Comments GENETIC SCANNING Routine 12/13/2023 12:56 PM EDT documented in this encounter Results * GENETIC SCANNING (12/13/2023 12:56 PM EDT) Blood us Historical Provider HEMATOLOGY ORDERABLES Final Result [facility] 807 [facility] [address] [phone] documented in this encounter Visit Diagnoses Not on filedocumented in this encounter Care Teams Edge Gluer Relationship Specialty Start Date End Date Damaso Black MD 1005 [facility] 22 [place] [address] PCP - General Family Medicine 11/22/22 Swapnil Lopez MD [address] [place] [address] Internal Medicine-Gastroenterology 02/16/22 Darío Rubio MD [address] [place] [address] Internal Medicine-Medical Oncology 12/11/23 documented as of this encounter
--- OUTSIDE RECORDS SUMMARY | 2024-08-15 13:52 | XMS_ITS | Encounter Summary ---
Author Organization [place] [address] Care Team Providers Care Senior Production Supervisor Name Role Phone Swapnil Lopez MD Unavailable [phone] Damaso Black MD Primary Care Provider [phone] Darío Rubio MD Unavailable [phone] Reason for Visit * Reason Onset Date Comments Other 12/20/2023 Questions about referral for Dr. Jairo Smith Encounter Details Date Type Department Care Team (Late st Contact Info) Description 12/20/2023 Telephone [facility] Medical Oncology [place] [id number] Darío Rubio MD [address] [place], [place] [id number] Other (Questions about referral for Dr. Jairo Smith) Social History Tobacco Use [...] Encounter - Aislinn Viera RN - 12/20/2023 3:26 PM EDT Called and clarified insurance (no longer part of [facility]). No other questions needed. * Telephone Encounter - Yaa Canchola, Clerical Staff - 12/20/2023 2:29 PM EDT Reason for call: July @ [facility] called with questions in regards to referral that was received for Dr. Jairo Smith. Preferred call back number:[phone] documented in this encounter Plan of Treatment Upcoming Encounters Date Type Department Care Team (Late st Contact Info) Description 09/11/2024 1:45 PM EST Office Visit [facility] [address] [place] [address] Swapnil Lopez MD [address] [place] [address] 10/21/2024 2:00 PM EST Appointment [facility] MRI [address] [place] [id number] Jacky Shirley MD 1 [facility] [place] [address] 10/23/2024 1:45 PM EST Appointment [facility] [place] [address] Olena Darby APRN 1 [place] [address] documented as of this encounter [...] on filedocumented in this encounter Care Teams Senior Production Supervisor Relationship Specialty Start Date End Date Damaso Black MD 1005 [facility] [address] [place] [address] PCP - General Family Medicine 11/22/22 Swapnil Lopez MD [address] [place] [address] Internal Medicine-Gastroenterology 02/16/22 Darío Rubio MD [address] [place] [address] Internal Medicine-Medical Oncology 12/11/23 documented as of this encounter
--- OUTSIDE RECORDS SUMMARY | 2024-08-15 13:52 | XMS_ITS | Encounter Summary ---
Author Organization [place] [address] Care Team Providers Care Dispatch Specialist Name Role Phone Swapnil Lopez MD Unavailable [phone] Damaso Black MD Primary Care Provider [phone] Darío Rubio MD Unavailable [phone] Reason for Visit * Reason Onset Date Comments Other 12/12/2023 Letter to detent ion center Encounter Details Date Type Department Care Team (Late st Contact Info) Description 12/12/2023 Telephone Cancer Care Medical Oncology [place] [phone] Darío Rubio MD [address] [place], [place] [phone] Other (Letter to correction center) Social History Tobacco Use Types Packs/Day Years [...] Encounter - Aislinn Viera RN - 12/13/2023 2:46 PM EDT Called and spoke to patient's son about necessary documentation needed. Records (Last MD OV + MD letter of status) sent to [facility] and to him (his is POA) for patient. Fax confirmation received. * Telephone Encounter - Adrianna Cintron - 12/13/2023 12:02 PM EDT Reason for call: Patients son Eloy calling back today states that he would like to speak with RNregarding what Medical Records were sent to [facility] and he is also requesting a letter from Dr Rubio regarding patients diagnosis and urgency for treatment. I verified his phone number as [phone] Preferred call back number:[phone] * Telephone Encounter - Shahnaz Rascon, Clerical Staff - 12/13/2023 11:33 AM EDT of son, Chela, called to ask who received a call because her did not. I told her that a VM was left. Chela is talking to her about it. I verified Eloy's number with her. * Telephone Encounter - Aislinn Viera RN - 12/13/2023 9:44 AM EDT Was able to send records securely to [facility]. Called and LVM for son to make him aware as his had called and she is not on the list of confirmed people to call. * Telephone Encounter - Tessa Dotson, Clerical Staff - 12/12/2023 10:05 AM EDT Reason for call: Seamus York's daughter in law would like to know if Dr Rubio would send a letterto the [facility] stating Seamus's diagnosis, the types of medication that she needs and the progression of the cancer. Chela is not listed as an emergency contact for Marleni, but her Eloy is. Chela's phone number is [phone] Eloy's phone number is [phone] [facility] fax number is [phone] Preferred call back number:[phone] documented in this encounter Plan of Treatment Upcoming Encounters Date Type Department Care Team (Late st Contact Info) Description 09/11/2024 1:45 PM EST Office Visit [facility] [address] [place] [place] [address] Swapnil Lopez MD [address] [place] [address] 10/21/2024 2:00 PM EST Appointment [facility] MRI [address] [place] [phone] Jacky Shirley MD 1 [facility] [place] [address] 10/23/2024 1:45 PM EST Appointment [facility] [place] [address] Olena Darby APRN 1 [place], [place] [phone] documented as of this encounter Goals Goal Patient Goal Type Associated Problems Recent Progress Patient-Stated? Author Breast [facility] Breast Health Mary Kate Vázquez, [...] on filedocumented in this encounter Care Teams Dispatch Specialist Relationship Specialty Start Date End Date Damaso Black MD [address] [place] [address] PCP - General Family Medicine 11/22/22 Swapnil Lopez MD [address] [place] [address] Internal Medicine-Gastroenterology 02/16/22 Darío Rubio MD [address] [facility] [address] Internal Medicine-Medical Oncology 12/11/23 documented as of this encounter
--- OUTSIDE RECORDS SUMMARY | 2024-08-15 13:52 | XMS_ITS | Encounter Summary ---
Author Organization [place] [address] Care Team Providers Care Business Computers Teacher Name Role Phone Swapnil Lopez MD Unavailable [phone] Damaso Black MD Primary Care Provider [phone] Jeremías Amin MD Unavailable [phone] Reason for Referral * Consultation (Routine) - Pending Review Specialty Diagnoses / Procedures Referred By Lata t Referred To Contact Oncology Diagnoses Invasive ductal carcinoma of left breast, stage 4 (HCC) Jeremías Amin MD [address] [place] [address] Phone: tel: fax: [place] [address] Phone: tel: Referral ID Status Reason Start Date Expiration Date V isits Requested Visits Authorized [id number] Pending Review 12/19/2023 12/18/2024 1 1 Question Answer Reason for referral? Acupuncture/Massage Therapy, Cancer Family Care (counseling), Cancer Support Community (Social/Support), Exercise, General, Demo Kitchen Classes, Prehab PT - Cancer Care Only Patient Status Newly Diagnosed - stage 4 * Consultation (Routine) - Pending Review Specialty Diagnoses / Procedures Referred By Contac t Referred To Contact Diagnoses Invasive ductal carcinoma of left breast, stage 4 (HCC) Procedures CANCER CARE SOCIAL WORK REFERRAL Jeremías Amin MD 1 [facility] [place] [address] Phone: tel: fax: Referral ID Status Reason Start Date Expiration Date V isits Requested Visits Authorized [id number] Pending Review 12/19/2023 12/18/2024 1 1 * Consultation (Routine) - Pending Review Specialty Diagnoses / Procedures Referred By Contac t Referred To Contact Neurology Diagnoses Jeremías Martinez MD [address] [facility] [place] [address] Phone: tel: fax: [facility] Neurology [facility] [address] [place] [address] Phone: tel: fax: Referral ID Status Reason Start Date Expiration Date V isits Requested Visits Authorized [id number] Pending Review 12/19/2023 12/18/2024 99 99 Comments black out episodes, bony brain mets, seizures? Reason for Visit * Reason Comments Follow-up Breast Cancer Dizziness Medication Question Pt. Wants to know if she needs to continue on Arimidex? Encounter Details Date Type Department Care Team (Latest Contact Info) Description 12/19/2023 9:41 AM EDT - 12/19/2023 11:05 AM EDT Hospital Encounter [facility] [place] [address] Jeremías Amin MD [address] [place] [address] [place] [address] Benny goddard (Primary Dx); Invasive ductal carcinoma of left breast, stage [...] Sign Reading Time Taken Comments Blood Pressure 105/91 12/19/2023 9:49 AM EDT Pulse 66 12/19/2023 9:49 AM EDT Temperature 36.8 ??C (98.2 ??F) 12/19/2023 9:49 AM ED T Respiratory Rate 16 12/19/2023 9:49 AM EDT Oxygen Saturation 100% 12/19/2023 9:49 AM EDT Inhaled Oxygen Concentration - - Weight 61.6 kg (135 lb 14.4 oz) 12/19/2023 9:49 AM EDT Height 157.5 cm (5' 2 ) 12/19/2023 9:49 AM EDT Body Mass Index 24.86 12/19/2023 9:49 AM EDT documented in this [...] Progress Notes * Jeremías Amin MD - 12/19/2023 10:00 AM EDT Images from the original note [...] states that since last visit she is now out of halfway. Feeling slowly better but having difficulty sleeping still. Accompanied by son. Reviewed past medical, surgical, family, and social [...] easy bruising; no anemia. PHYSICAL EXAM: Vitals: 12/19/23 0949 BP: 105/91 Pulse: 66 Resp: 16 Temp: 98.2 ??F (36.8 ??C) SpO2: 100% Wt Readings from Last 3 Encounters: 12/19/23 135 lb 14.4 oz (61.6 kg) 12/11/23 132 lb (59.9 kg) 12/08/23 129 lb (58.5 kg) GENERAL APPEARANCE: Alert & Cooperative, Oriented [...] of left female breast (HCC)-ICD-10-CM R51.9- Headache, afmafzofhqc-IOP-80-CM G89.29-Other chronic kllr-MEI-33-CM. COMPARISON: None. PROCEDURE COMMENTS: Multiplanar multiecho MR [...] Ductal Carcinoma of Left Breast (T2N3M1, ER+, ID+, HER2-) Patient coming from [facility]. Patient reports feeling an enlarging breast lump. She is post-menopausal and has had a hysterectomy and no FMH of cancer. Left breast mass and left axilla biopsied and revealing invasive ductal carcinoma, grade 2, some DCIS as well. ER 96%, ID 73%, HER2 2+, FISH negative, lymph node [...] for faslodex monthly monotherapy if still in halfway. Discussed side effects of faslodex and gave information. If out of halfway- would consider faslodex and ribociclib vs AI + CDK4/6. 12/19/23 update: Now out of halfway and so we can do CDK4/6 inhibitor ribociclib + anastrazole (AI). Had started on AI prior. Discussed side effects of neutropenia, EKG/arrhythmia abnormalities, peripheral edema, alopecia, rash, electrolyte abnormalities, n/v/d, abdominal pain, other cytopenias, liver and kidney abnormalities, infection, fatigue, dizziness, headaches, arthralgias, osteoporosis residential, fever, hot flashes, mood swings and other side effects that will be discussed in teach session with RN. To takedays 1-21 and have 7 days off. She is agreeable to starting. Baseline Qtc 395 on 12/19/23 with sinusbradycardia and non-specific T- wave inversion- no known coronary disease she knows of. -Start ribociclib + anastrazole daily; needs baseline EKG (+day 14) and with each cycle of tx alongwith CBC/CMP q2 weeks for first 2 months as well. Patient will call us when she is to start. -Patient prefers radiation oncology referral to Dr. 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 In addition, needs additional goals of care discussion as well. 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 A total of 65 minutes of the encounter was spent in [...] Amin MD Hematology/Oncology documented in this encounter Miscellaneous Notes * Addendum Note - Jeremías Amin MD - 12/19/2023 10:00 AM EDTEncounter addended by: Jeremías Amin MD on: 12/19/2023 9:17 PM Actions taken: Clinical Note Signed documented in this encounter Plan of Treatment Upcoming Encounters Date Type Department Care Team (Late st Contact Info) Description 09/11/2024 1:45 PM EST Office Visit [facility] [address] [place], [place] [phone] Swapnil Lopez MD [address] [place] [address] 10/21/2024 2:00 PM EST Appointment [facility] MRI [address] [place] [address] Jacky Shirley MD 1 [facility]CER [facility] [place], [place] [phone] 10/23/2024 1:45 PM EST Appointment [facility] [place], [place] [phone] Olena Darby APRN [address] [place] [address] [place] [address] Scheduled Referrals Name Type Priority Associated Diagnoses Order Schedule AMB REFERRAL TO NEUROLOGY Outpatient Referral Routine Blackout spell Ordered: 12/19/2023 AMB REFERRAL TO INTEGRATIVE MEDICINE Outpatient Referral Routine Invasive ductal carcinoma of left breast, stage 4 (HCC) Ordered: 12/19/2023 documented as of this encounter Goals Goal [...] AM EDT Impressions 12/19/2023 6:07 PM EDT ?[facility] ? Test Date: ?2023-12-19 Pat Name: ? RA SY ?Department: ?? DEPID ? Room: ? Gender: ? Female ? Communicable Disease Specialist: ?? Am : ?1960 ? Requested By: JEREMÍAS ELOISA Order Number: [id number] ?Reading MD: ?? Yvan Schutzman ? Measurements Intervals ?[place] ? Rate: ? 61 ? P: ?37 ID: ? [id number] ?QRS: ?18 QRSD: ? 93 ? T: ?17 QT: ? 391 ? QTc: ?395 ? Interpretive Statements SINUS RHYTHM WITH SINUS ARRHYTHMIA NONSPECIFIC T-WAVE ABNORMALITY Electronically Signed On 12-19-2023 18:07:05 EDT by Yvan Gibbs Narrative Procedure Note Yvan Gibbs MD - 12/19/[address] [facility] Test Date: 2023-12-19 Pat Name: RA SY Department: DEPID Room: Gender: Female Communicable Disease Specialist: Am : 1960 Requested By: JEREMÍAS AMIN Order Number: [id number] Reading MD: Yvan Gibbs Measurements Intervals [place] Rate: 61 P: 37 ID: [id number] QRS: 18 QRSD: 93 T: 17 QT: 391 QTc: 395 Interpretive Statements SINUS RHYTHM WITH SINUS ARRHYTHMIA NONSPECIFIC T-WAVE ABNORMALITY Electronically Signed On 12-19-2023 18:07:05 EDT by Yvan Gibbs us Jeremías Amin MD IMG ECG ORDERABLES Final Resul t documented in this encounter Visit Diagnoses Diagnosis Blackout spell- Primary Syncope and collapse Invasive ductal carcinoma of left breast, 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, stage 4 (HCC) documented in this encounter Orders Nursing Count Last Ordered Date First Orde red Date CANCER CARE SOCIAL WORK REFERRAL 1 12/19/19 24 documented in this encounter Care Teams Business Computers Teacher Relationship Specialty Start Date End Date Damaso Black MD 1005 [facility] [address] [place] [address] PCP - General Family Medicine 11/22/22 Swapnil Lopez MD [address] [place] [address] Internal Medicine-Gastroenterology 02/16/22 Jeremías Amin MD [address] [facility] [address] [place], [place] [address] Internal Medicine-Medical Oncology 12/11/23 documented as of this encounter
--- OUTSIDE RECORDS SUMMARY | 2024-08-15 13:52 | XMS_ITS | Encounter Summary ---
Author Organization [place] [address] Care Team Providers Care Process Helper Name Role Phone Swapnil Lopez MD Unavailable [phone] Damaso Black MD Primary Care Provider [phone] Darío Rubio MD Unavailable [phone] Reason for Visit * Reason Onset Date Comments Leg Swelling 12/23/2023 Encounter Details Date Type Department Care Team (Late st Contact Info) Description 12/23/2023 Nurse Triage SEP Nurse Now [facility] [place] [address] Linda Cummings, RN Social History Tobacco Use Types Packs/Day [...] Gabby, RMA * Does this person have serious [...] encounter Miscellaneous Notes * Telephone Encounter - Linda Cummings RN - 12/23/2023 12:23 PM EDT Nurse Triage Call -Chief Complaint: c/o bilateral leg and feet swelling. Swelling reported as severe and going above knees, feels very tight.Wondering if could be from cancer or medication she is on. C/o sob ongoing, denies fever, denies redness on legs -Reported by: Patient -Disposition per protocol: go to ed now -Follow up/Concerns: will have family drive secure chat notification to senior science consultant oncology - Dr. Chapa Reason for Disposition [1] Difficulty breathing with exertion (e.g., walking) AND [2] new-onset or worsening Answer Assessment - Initial Assessment Questions 1. ONSET: When did the swelling start? (e.g., minutes, hours, days) yesterday 2. LOCATION: What part of the leg is swollen? Are both legs swollen or just one leg? bilateral 3. SEVERITY: How bad is the swelling? (e.g., localized; mild, moderate, severe) - Localized - small area of swelling localized to one leg - MILD pedal edema - swelling limited to foot and ankle, pitting edema < 1/4 inch (6 mm) deep, rest and elevation eliminate most or all swelling - MODERATE edema - swelling of lower leg to knee, pitting edema > 1/4 inch (6 mm) deep, rest andelevation only partially reduce swelling - SEVERE edema - swelling extends above knee, facial or hand swelling present severe 4. REDNESS: Does the swelling look red or infected? no 5. PAIN: Is the swelling painful to touch? If Yes, ask: How painful is it? (Scale 1-10; mild, moderate or severe) tight 6. FEVER: Do you have a fever? If Yes, ask: What is it, how was it measured, and when did it start? no 7. CAUSE: What do you think is causing the leg swelling? unknown 8. MEDICAL HISTORY: Do you have a history of heart failure, kidney disease, liver failure, or cancer? breast cancer, mets to brain 9. RECURRENT SYMPTOM: Have you had leg swelling before? If Yes, ask: When was the last time? What happened that time? never happened 10. OTHER SYMPTOMS: Do you have any other symptoms? (e.g., chest pain, difficulty breathing) sob 11. : Is there any chance you are ? When was your last menstrual period? Protocols used: Leg Swelling and Edema-A-AH documented in this encounter Plan of Treatment Upcoming Encounters Date Type Department Care Team (Late st Contact Info) Description 09/11/2024 1:45 PM EST Office Visit [facility] [address] [place] [address] Swapnil Lopez MD [address] [place] [address] 10/21/2024 2:00 PM EST Appointment [facility] MRI [address] [place] [address] Jacky Shirley MD [address] [place] [address] [place] [address] 10/23/2024 1:45 PM EST Appointment [facility] [place] [address] Olena Darby APRN 1 [facility] CANCER CARE [place], [place] [id number] documented as of this encounter Goals Goal [...] on filedocumented in this encounter Care Teams Process Helper Relationship Specialty Start Date End Date Damaso Black MD 1005 [facility] [address] [place] [address] PCP - General Family Medicine 11/22/22 Swapnil Lopez MD [address] [place] [address] Internal Medicine-Gastroenterology 02/16/22 Darío Rubio MD [address] [place] [address] Internal Medicine-Medical Oncology 12/11/23 documented as of this encounter
--- OUTSIDE RECORDS SUMMARY | 2024-08-15 13:52 | XMS_ITS | Encounter Summary ---
Author Organization [place] [address] Care Team Providers Care Air Brake Worker Name Role Phone Swapnil Lopez MD Unavailable [phone] Damaso Black MD Primary Care Provider [phone] Encounter Details Date Type Department Care Team (Late st Contact Info) Description 12/04/2023 8:15 AM EST Tumor Board [place] [address] Social History Tobacco Use Types Packs/Day Years [...] documented in this encounter Progress Notes * Jasmyne Treadwell RN - 12/04/2023 8:15 AM EST Tumor Board Documentation This patient may receive this note before their Care Team has the ability to review the contents with them. If the Care Team has not yet contacted the patient regarding the note, the Care Team will be reaching out to the patient shortly. Presented by: Dr. Ruiz Date: 12/04/2023 In attendance: medical oncology, navigation, genetics, radiation oncology, research, radiology, surgical oncology, pathology, physical / occupational therapy. Presentation: for progression Discussions include but are not limited to the following: Background: Diagnoses in November. presentig to review PET results with calvaria lesion. Oncotype 23. patient of Dr. Rubio-med onc. Diagnosis and Staging: Other (use comments), Discussed (metastatic breast cancer, Stage IV;) Previous treatments: . Additionally, we reviewed previous medical and familial history, history of present illness, and recent lab results along with all available histopathologic and imaging studies. The tumor board considered available treatment options which could include: Medical [id number]) to treat no biopsy on head, no surgery. possible monthly Falslodex Clinical Trial Status: None available Genetics Discussed: Yes National site-specific guidelines were discussed with respect to the case. The Oncology Care Team at [facility] is working hard to provide the best cancer care in [facility]. As part of our program's commitment to excellence, the following case was recently presented at Tumor Board Conference. Tumor Board Conference is a meeting of doctors and other healthcare professionals from multiple specialties who discuss treatment options for patients. Final decisions in the plan of care are made by the treating physician(s) in conversation with the patient. The responsibility for follow up of these recommendations is that of the treating physicians(s). Cosigned by Ian Ruiz MD at 12/04/2023 3:14 PM EST documented in this encounter Plan of Treatment Upcoming Encounters Date Type Department Care Team (Late st Contact Info) Description 09/11/2024 1:45 PM EST Office Visit [facility] [address] [place] [facility] [address] Swapnil Lopez MD [address] [facility] [place] [phone] 10/21/2024 2:00 PM EST Appointment [facility] MRI [address] [place] [address] Jacky Shirley MD [address] [place] [address] [place] [phone] 10/23/2024 1:45 PM EST Appointment [facility] ON[facility] [address] [place], [place] [phone] Olena Darby APRN [address] [place] [address] [place], [place] [address] documented as of this encounter Goals Goal [...] Diagnoses Not on filedocumented in this encounter Orders Appointment Requests Count Last Ordered Date Fi rst Ordered Date [facility] ON[facility] BASE TUMOR BOARD 1 11/13/2023 documented in this encounter Care Teams Air Brake Worker Relationship Specialty Start Date End Date Damaso Black MD [address] [facility] [address] [place] [address] PCP - General Family Medicine 11/22/22 Swapnil Lopez MD [address] [place] [phone] Internal Medicine-Gastroenterology 02/16/22 documented as of this encounter
--- OUTSIDE RECORDS SUMMARY | 2024-08-15 13:52 | XMS_ITS | Encounter Summary ---
Author Organization [facility] [place] [address] Care Team Providers Care Grad Intern Name Role Phone Swapnil Lopez MD Unavailable [phone] Damaso Black MD Primary Care Provider [phone] Darío Rubio MD Unavailable [phone] Encounter Details Date Type Department Care Team (Latest Contact Info) Description 12/18/2023 Travel Social History Tobacco Use Types Packs/Day [...] PM EST Office Visit [facility] [address] [place] [facility] [place] [address] Swapnil oLpez MD [address] [place] [address] 10/21/2024 2:00 PM EST Appointment [facility] MRI [address] [place] [address] Jacky Shirley MD [address] [place] [address] [place] [address] 10/23/2024 1:45 PM EST Appointment [facility] [place] [address] Olena Darby APRN [address] [place] [address] CAN[place]ER [place], [place] [phone] documented as of this encounter Goals Goal [...] on filedocumented in this encounter Care Teams Grad Intern Relationship Specialty Start Date End Date Damaso Black MD [address] [place] [address] PCP - General Family Medicine 11/22/22 Swapnil Lopez MD [address] [place] [address] Internal Medicine-Gastroenterology 02/16/22 Darío Rubio MD [address] [facility] [place] [address] Internal Medicine-Medical Oncology 12/11/23 documented as of this encounter
--- OUTSIDE RECORDS SUMMARY | 2024-08-15 13:52 | XMS_ITS | Encounter Summary ---
Author Organization [place] [address] Care Team Providers Care Report Writer Name Role Phone Swapnil Lopez MD Unavailable [phone] Damaso Black MD Primary Care Provider [phone] Darío Rubio MD Unavailable [phone] Mya Naranjo MD Unavailable [phone] Ashley Ordonez APRN Unavailable [phone] Nicole Melendez RN Unavailable Unavailable Reason for Visit * Reason Onset Date Comments Referral 12/20/2023 neurology Encounter Details Date Type Department Care Team (Late st Contact Info) Description 12/20/2023 Telephone Cancer Care Medical Oncology [place] [phone] Darío Rubio MD [address] [place], [place] [phone] Referral (neurology ) Social History Tobacco Use Types Packs/Day [...] Telephone Encounter - Aislinn Viera RN - 01/01/2024 11:38 AM EDT Patient was seen by palliative care on Thursday 12/28. She was prescribed Tramadol 50 mg 2 tabs every 4 hours with a max of 10 tablets per day without any refills and is stating that she is almost out. She is also needing additional tramadol. Patient currently has refills available. She states that [facility] will not refill scripts. Called and LVM for patient to clarify how much tramadol she is taking because the amount should last 15 days. * Telephone Encounter - Nikky Virgen, Clerical Staff - 01/01/2024 9:33 AM EDTSumadrianna: Ramiro Called [facility] to get pt an appt. Called pt to advise on appt time. She stated that time would not work. I advised her to call [phone] to get it rescheduled. I also went over all of her scheduled appts with radiology, oncology, and palliative. Pt stated that she is almost out of tramadoland phenergan and [facility] in [place] will not fill them. Pt stated that she wasn't sure why. I advised that I will let Carine know and she can help get her rx's refilled. Pt verbalized understanding. * Telephone Encounter - Nikky Virgen Clerical Staff - 12/29/2023 9:01 AM EDT LVM advising pt to call [phone] to make a neurology appt. * Telephone Encounter - Aislinn Viera RN - 12/28/2023 11:22 AM EDT Patient still needing neurology appointment. Please reach out to patient. * Telephone Encounter - Nikky Virgen Clerical Staff - 12/20/2023 11:48 AM EDT Referral placed. Please call pt to schedule an appt. Thank you! * Telephone Encounter - Aislinn Viera RN - 12/20/2023 11:40 AM EDT Patient has been having black out episodes, bony brain mets. Needs to get in with neurology. Routing to scheduling to assist. documented in this encounter Plan of Treatment Upcoming Encounters Date Type Department Care Team (Late st Contact Info) Description 09/11/2024 1:45 PM EST Office Visit [facility] [address] [place] [address] Swapnil Lopez MD [address] [place] [address] 10/21/2024 2:00 PM EST Appointment [facility] [place] MRI [address] [place], [place] [phone] Jcaky Shirley MD [address] [place] [address] 10/23/2024 1:45 PM EST Appointment [facility] [place] [address] Olena Darby APRN [address] [place] [id number] documented as of this encounter Goals Goal [...] on filedocumented in this encounter Care Teams Report Writer Relationship Specialty Start Date End Date Damaso Black MD 1005 [facility] [address] [place] [address] PCP - General Family Medicine 11/22/22 Swapnil Lopez MD [address] [place] [address] Internal Medicine-Gastroenterology 02/16/22 Darío Rubio MD [address] [place] [address] [place] [address] Internal Medicine-Medical Oncology 12/11/23 Mya Naranjo MD [address] [facility] [place] [address] Family Medicine - Hospice And Palliative Medicine 01/04/24 Ashley Ordonez APRN [address] [place] [address] Nurse Practitioner 01/04/24 Nicole Melendez, RN Registered Nurse 01/04/24 documented as of this encounter
--- OUTSIDE RECORDS SUMMARY | 2024-08-15 13:52 | XMS_ITS | Encounter Summary ---
Author Organization [place] [address] Care Team Providers Care Insurance Associate Name Role Phone Swapnil Lopez MD Unavailable [phone] Damaso Black MD Primary Care Provider [phone] Reason for Visit * Reason Onset Date Comments Schedule Appointment 11/27/2023 Rescheduled appointment for 12/05/2023 for 2:00 labs 2:[address] Rubio Encounter Details Date Type Department Care Team (Late st Contact Info) Description 11/27/2023 Telephone Cancer Care Medical Oncology [place] [phone] Darío Rubio MD [address] [place] [address] Schedule Appointment (Rescheduled appointment for 12/05/2023 for 2:00 labs 2:[address] Rubio) Social History Tobacco Use Types Packs/Day Years [...] Telephone Encounter - Aislinn Viera RN - 11/27/2023 12:07 PM EST RN aware of new appointment changes. * Telephone Encounter - Adrianna Zabala, Clerical Staff - 11/27/2023 11:56 AM EST All Visit type(s) needing rescheduled: labs & F/U Current Visit Date: 11/28/2023 Appointment Rescheduled to Date: 12/05/2023 2:00 for labs 2:[address] Rubio Reason for Rescheduling:unable to make appointment tomorrow morning Preferred call back number:unknown * Telephone Encounter - Nikky Virgen, Clerical Staff - 11/27/2023 11:21 AM ESTSumkole Rubio Called [facility] and spoke to Josey in Medical to schedule an appt. Josey agreed to scheduled appt times. documented in this encounter Plan of Treatment Upcoming Encounters Date Type Department Care Team (Late st Contact Info) Description 09/11/2024 1:45 PM EST Office Visit [facility] [address] [facility], [place] [phone] Swapnil Lopez MD [address] [place] [phone] 10/21/2024 2:00 PM EST Appointment [facility] MRI [address] [place] [address] Jacky Shirley MD [address] [place] [phone] 10/23/2024 1:45 PM EST Appointment [facility] [address] [place], [place] [phone] Olena Darby APRN [address] [place] [id number] documented as of this encounter Goals Goal [...] on filedocumented in this encounter Care Teams Insurance Associate Relationship Specialty Start Date End Date Damaso Black MD [address] [place] [address] PCP - General Family Medicine 11/22/22 Swapnil Lopez MD [address] [place] [phone] Internal Medicine-Gastroenterology 02/16/22 documented as of this encounter
--- OUTSIDE RECORDS SUMMARY | 2024-08-15 13:52 | XMS_ITS | Encounter Summary ---
Author Organization [place] [address] Care Team Providers Care Dining Room Hostess Name Role Phone Swapnil Lopez MD Unavailable [phone] Damaso Black MD Primary Care Provider [phone] Darío Rubio MD Unavailable [phone] Encounter Details Date Type Department Care Team (Latest Contact Info) Description 12/11/2023 2:15 PM EDT - 12/11/2023 2:31 PM EDT Hospital Encounter [place] [address] Invasive ductal carcinoma of breast, left [...] PM EST Office Visit [facility] [address] [place] [address] Swapnil Lopez MD [address] [place] [address] 10/21/2024 2:00 PM EST Appointment [facility] [place] MRI [address] [place] [address] Jacky Shirley MD [address] [place] [address] [place] [address] 10/23/2024 1:45 PM EST Appointment [place] [address] Olena Darby APRN [address] [place] [address] [place] [address] documented as of this encounter Goals Goal [...] Associated Diagnosis Comments CBC WITH DIFF Routine 12/11/2023 2:32 PM EDT Invasive ductal carcinoma of breast, left (HCC) COMPREHENSIVE METABOLIC PANEL Routine 12/11/2023 2:32 PM EDT Invasive ductal carcinoma of breast, left (HCC) documented in this encounter Results * (ABNORMAL) COMPREHENSIVE METABOLIC PANEL (12/11/2023 2:32 PM EDT) Sodium 142 136 - 145 mmol/L 12/11/2023 3:00 PM EDT [facility] Potassium 4.0 3.5 - 5.0 mmol/L 12/11/2023 3:00 PM EDT [facility] Chloride 105 98 - 107 mmol/L 12/11/2023 3:00 PM EDT [facility] Total CO2 26 22 - 29 mmol/L 12/11/2023 3:00 PM EDT [facility] Anion Gap 11 7 - 16 mmol/L 12/11/2023 3:00 PM EDT [facility] Calcium 9.7 8.8 - 10.4 mg/dL 12/11/2023 3:00 PM EDT [facility] Glucose Lvl 103(H) 70 - 99 mg/dL 12/11/2023 3:00 PM EDT [facility] BUN 13 8 - 23 mg/dL 12/11/2023 3:00 PM EDT [facility] Creatinine 0.65 0.51 - 1.30 mg/dL 12/11/2023 3:00 PM EDT [facility] Albumin 4.5 3.2 - 4.6 gm/dL 12/11/2023 3:00 PM EDT [facility] Total Protein 7.5 6.4 - 8.3 gm/dL 12/11/2023 3:00 PM EDT [facility] Bili Total 0.4 0.2 - 1.3 mg/dL 12/11/2023 3:00 PM EDT [facility] ALT <5 <=41 U/L 12/11/2023 3:00 PM EDT [facility] AST 13 <=40 U/L 12/11/2023 3:00 PM EDT [facility] Alk Phos 95 36 - 123 U/L 12/11/2023 3:00 PM EDT [facility] eGFR (CKD-EPIcr 2020) 99 >=60 mL/min/1.7 3 m2 12/11/2023 3:00 PM EDT [facility] Comment:Estimated GFR was ca lculated using the CKD-EPIcr (2020) equation refit without race. The equation is recommended by the National Kidney Foundation - [place] [employer] of Nephrology Task Force. Blood VENOUS BLOOD / Unknown Venipuncture / Unknown 12/11/2023 2:32 PM EDT 12/11/2023 2:32 PM EDT us Darío Rubio MD CHEMISTRY ORDERABLES Final Res ult [facility] [address] [place] [address] * CBC WITH DIFF (12/11/2023 2:32 PM EDT) WBC 6.0 3.7 - 10.3 x10(3)/mcL 12/11/2023 2:53 PM EDT [facility] RBC 4.50 3.90 - 5.20 x10(6)/mcL 12/11/2023 2:53 PM EDT [facility] Hgb 13.3 11.2 - 15.7 g/dL 12/11/2023 2:53 PM EDT [facility] Hct 38.8 34.0 - 45.0 % 12/11/2023 2:53 PM EDT [facility] MCV 86.2 80.0 - 100.0 fL 12/11/2023 2:53 PM EDT [facility] MCH 29.6 26.0 - 34.0 pg 12/11/2023 2:53 PM EDT [facility] MCHC 34.3 30.7 - 35.5 g/dL 12/11/2023 2:53 PM EDT [facility] RDW 12.6 <=14.9 % 12/11/2023 2:53 PM EDT [facility] Platelet 235 155 - 369 x10(3)/mcL 12/11/2023 2:53 PM EDT [facility] MPV 9.3 8.8 - 12.5 fL 12/11/2023 2:53 PM EDT [facility] Neut # Prelim 3.6 1.6 - 6.1 x10(3)/mcL 12/11/2023 2:53 PM EDT [facility] Comment:Preliminary automate d absolute neutrophil count. Value may change if manual differential is indicated. Neut Percent 59.8 % 12/11/2023 2:53 PM EDT [facility] Comment:Neutrophils equals s egs plus bands Imm Gran% 0.2 % 12/11/2023 2:53 PM EDT [facility] Comment:Automated count of m etamyelocytes, myelocytes and promyelocytes. Lymph Percent 29.1 % 12/11/2023 2:53 PM EDT [facility] Maverick Percent 9.5 % 12/11/2023 2:53 PM EDT [facility] Eos Percent 1.2 % 12/11/2023 2:53 PM EDT [facility] Baso Percent 0.2 % 12/11/2023 2:53 PM EDT [facility] Neut # 3.6 1.6 - 6.1 x10(3)/mcL 12/11/2023 2:53 PM EDT [facility] Comment:Neutrophils equals s egs plus bands IMMGRAN# 0.0 0.0 - 0.1 x10(3)/[facility] 12/11/2023 2:53 PM EDT [facility] Comment:Automated count of m etamyelocytes, myelocytes and promyelocytes. An absolute IG <0.1 is reported as 0.0. Lymph # 1.8 1.2 - 3.9 x10(3)/[facility] 12/11/2023 2:53 PM EDT [facility] Maverick # 0.6 0.3 - 0.9 x10(3)/[facility] 12/11/2023 2:53 PM EDT [facility] Eos# 0.1 0.0 - 0.5 x10(3)/[facility] 12/11/2023 2:53 PM EDT [facility] Baso # 0.0 0.0 - 0.1 x10(3)/[facility] 12/11/2023 2:53 PM EDT [facility] Blood VENOUS BLOOD / Unknown Venipuncture / Unknown 12/11/2023 2:32 PM EDT 12/11/2023 2:32 PM EDT us Darío Rubio MD HEMATOLOGY ORDERABLES Final Re sult [address] [address] documented in this encounter Visit Diagnoses Diagnosis Invasive ductal carcinoma of breast, left (HCC) documented in this encounter Care Teams Dining Room Hostess Relationship Specialty Start Date End Date Damaso Black MD [address] [facility] [address] [place] [address] PCP - General Family Medicine 11/22/22 Swapnil Lopez MD [address] [place] [address] Internal Medicine-Gastroenterology 02/16/22 Darío Rubio MD [address] [place] [address] Internal Medicine-Medical Oncology 12/11/23 documented as of this encounter
--- OUTSIDE RECORDS SUMMARY | 2024-08-15 13:52 | XMS_ITS | Encounter Summary ---
Author Organization [place] [address] Care Team Providers Care Asset Specialist Name Role Phone Swapnil Lopez MD Unavailable [phone] Damaso Black MD Primary Care Provider [phone] Darío Rubio MD Unavailable [phone] Encounter Details Date Type Department Care Team (Late st Contact Info) Description 12/19/2023 Social Work Cancer Care Medical Oncology [address] [facility] [address] [place] [phone] [facility] Social History Tobacco Use Types Packs/Day Years [...] documented in this encounter Progress Notes * Carissa Verma LCSW - 12/19/2023 1:37 PM EDT 12/19/23 1335 Technology Support Analyst Assessment Disease/Baxter Site Bridge Tender Assignment Breast cancer Referral Location: med onc Reason for Referral distress tool Identified Needs Education/Information (Call left for pt to discuss her concerns and needs. Provided Dileep Roberts's phone number and explainedshe or another swker would be happy to assist. Requested she return call at her convenience.) documented in this encounter Plan of Treatment Upcoming Encounters Date Type Department Care Team (Late st Contact Info) Description 09/11/2024 1:45 PM EST Office Visit [facility] [address] [facility] [place] [address] Swapnil Lopez MD [address] [place] [address] 10/21/2024 2:00 PM EST Appointment [facility] MRI [address] [place] [address] Jacky Shirley MD [address] [place] [address] [place] [address] 10/23/2024 1:45 PM EST Appointment [facility] [place] [address] Olena Darby APRN 1 [facility] [place], [place] [phone] documented as of this encounter Goals Goal [...] on filedocumented in this encounter Care Teams Asset Specialist Relationship Specialty Start Date End Date Damaso Black MD [address] [place] [address] [address] [place] [address] PCP - General Family Medicine 11/22/22 Swapnil Lopez MD [address] [place] [phone] Internal Medicine-Gastroenterology 02/16/22 Darío Rubio MD 1 [place] [address] Internal Medicine-Medical Oncology 12/11/23 documented as of this encounter
--- OUTSIDE RECORDS SUMMARY | 2024-08-15 13:52 | XMS_ITS | Encounter Summary ---
Author Organization [place] [address] Care Team Providers Care Quiller Operator Name Role Phone Swapnil Lopez MD Unavailable [phone] Damaso Black MD Primary Care Provider [phone] Darío Rubio MD Unavailable [phone] Reason for Visit * Reason Onset Date Comments Medication Refill 01/01/2024 Encounter Details Date Type Department Care Team (Late st Contact Info) Description 01/01/2024 Refill [facility] [place] [phone] Nicole Melendez, superintendent pressure Refill Social History Tobacco Use Types Packs/Day [...] Encounter - Nicole Melendez RN - 01/01/2024 3:17 PM EDT Remaining part of pts prescription. Nicole Melendez RN documented in this encounter Plan of Treatment Upcoming Encounters Date Type Department Care Team (Late st Contact Info) Description 09/11/2024 1:45 PM EST Office Visit [facility] [address] [place] [facility] [place] [address] Swapnil Lopez MD [address] [place] [facility] [place] [address] 10/21/2024 2:00 PM EST Appointment [facility] [address] [place] [address] Jacky Shirley MD 1 [facility]CER CARE [place], [place] [phone] 10/23/2024 1:45 PM EST Appointment [facility] ONC [address] [place], [place] [phone] Olena Darby APRN 1 [facility]CER C[facility] [place], [place] [phone] documented as of this encounter Goals Goal [...] MAX of 10 tablets per day Reorder 01/01/2024 01/01/2024 documented as of this encounter Additional Health Concerns Assessment Noted Time PHQ-9 Depression Total Score: 13 024 1:47 PM EDT PHQ-2 Depression Total Score: 3 12/29/19 24 1:47 PM EDT documented as of this encounter Care Teams Quiller Operator Relationship Specialty Start Date End Date Damaso Black MD 1005 [facility] 22 [place] [address] PCP - General Family Medicine 11/22/22 Swapnil Lopez MD [address] [place] [address] Internal Medicine-Gastroenterology 02/16/22 Darío Rubio MD [address] [facility] [address] [place], [place] [phone] Internal Medicine-Medical Oncology 12/11/23 documented as of this encounter
--- OUTSIDE RECORDS SUMMARY | 2024-08-15 13:52 | XMS_ITS | Encounter Summary ---
Author Organization [place] [address] Care Team Providers Care Mobile Sales Expert Name Role Phone Swapnil Lopez MD Unavailable [phone] Damaso Black MD Primary Care Provider [phone] Darío Rubio MD Unavailable [phone] Mya Naranjo MD Unavailable [phone] Ashley Ordonez APRN Unavailable [phone] Nicole Melendez RN Unavailable Unavailable Reason for Referral * Consultation (Emergency) - Pending Review Specialty Diagnoses / Procedures Referred By Contac t Referred To Contact Diagnoses Invasive ductal carcinoma of breast, left (HCC) Darío Rubio MD [address] [place] [address] Phone: tel: fax: Jacky Shirley MD [address] [place] [address] [place] [address] Phone: tel: fax: Referral ID Status Reason Start Date Expiration Date V isits Requested Visits Authorized [id number] Pending Review 12/29/2023 12/28/2024 1 1 Comments Patient to be seen ANNA. Please place with first available if [facility] does not have openings. Reason for Visit * Reason Onset Date Comments Other 12/28/2023 Patient is askin rajinder for a call back from Dr. Rubio's nurse Encounter Details Date Type Department Care Team (Late st Contact Info) Description 12/28/2023 Telephone [facility] [place] [address] Darío Rubio MD [address] [place] [address] Other (Patient is asking for a call back from Dr. Rubio's nurse) Social History Tobacco Use Types Packs/Day Years [...] encounter Miscellaneous Notes * Telephone Encounter - Mercedes Morrell CNA - 12/29/2023 1:23 PM EDT She is scheduled for 01/04 * Telephone Encounter - Aislinn Viera RN - 12/29/2023 1:16 PM EDT New referral placed STAT. * Telephone Encounter - Mecredes Morrell CNA - 12/29/2023 12:59 PM EDT Called Rad Onc and they are calling patient to schedule, they asked if we could put the referral back in because it was not in their workqueues anymore. * Telephone Encounter - Aislinn Viera RN - 12/29/2023 12:27 PM EDT Can we reach out to rad onc directly and get her scheduled? * Telephone Encounter - Nikky Santana, Clerical Staff - 12/28/2023 2:17 PM EDT LVM to call and schedule with Dr. Fern CASTILLO * Telephone Encounter - Aislinn Viera RN - 12/28/2023 1:36 PM EDT Called and spoke to patient about her concern with her provider she saw yesterday with radiation oncology. Patient stated that he said that she would need to have chemo first, then a mastectomy and that your other provider was sugar coating things. She said that he also stated to, not keep her ap pointment tomorrow (palliative care) because that was setting her up for hospice. Patient currently has radiation oncology referral in. Need to have patient seen ANNA. Can change status of urgency if needed. Will route to radiation oncology to get patient scheduled. Dr. Rubio currently has a referral in for Dr. Shirley. Called and spoke to Dr. Catherine's office and they will be faxing the note from 12/25. Told patient to keep her appointment tomorrow for palliative care so we can get her pain managementunder control. Told patient I would keep her updated and try to expedite everything that I can. * Telephone Encounter - Adrianna Zabala, Clerical Staff - 12/28/2023 1:19 PM EDT Reason for call: Patient called asking for a call back from Dr. Rubio or his nurse regarding the Radiation physician she was referred to. Preferred call back number:[phone] documented in this encounter Plan of Treatment Upcoming Encounters Date Type Department Care Team (Late st Contact Info) Description 09/11/2024 1:45 PM EST Office Visit [facility] [address] [place] [address] Swapnil Lopez MD [address] [place] [address] 10/21/2024 2:00 PM EST Appointment [facility] [address] [place] [address] Jacky Shirley MD 1 [facility] [address] 10/23/2024 1:45 PM EST Appointment [facility] [place] [address] Olena Darby APRN 1 [facility] [place] [address] Scheduled Referrals Name Type Priority Associated Diagnoses Orde r Schedule AMB REFERRAL TO RADIATION ONCOLOGY Outpatient Referral STAT Invasive ductal carcinoma of breast, left (HCC) Ordered: 12/29/2023 documented as of this encounter Goals Goal Patient Goal Type Associated Problems Recent Progress Patient-Stated? Author [facility] [facility] Mary Kate Vázquez, RN Note: Patient acknowledges [...] left (HCC)- Primary documented in this encounter Care Teams Mobile Sales Expert Relationship Specialty Start Date End Date Damaso Black MD [address] [facility] [address] [place] [address] PCP - General Family Medicine 11/22/22 Swapnil Lopez MD [address] [place] [id number] Internal Medicine-Gastroenterology 02/16/22 Darío Rubio MD [address] [facility] [place] [address] Internal Medicine-Medical Oncology 12/11/23 Mya Naranjo MD [address] [facility] [place] [address] Family Medicine - Hospice And Palliative Medicine 01/04/24 Ashely Ordonez APRN [address] [place] [address] [place] [address] Nurse Practitioner 01/04/24 Nicole Melendez, RN Registered Nurse 01/04/24 documented as of this encounter
--- OUTSIDE RECORDS SUMMARY | 2024-08-15 13:52 | XMS_ITS | Encounter Summary ---
Author Organization [place] [address] Care Team Providers Care Knocker Out Name Role Phone Swapnil Lopez MD Unavailable [phone] Damaso Black MD Primary Care Provider [phone] Darío Rubio MD Unavailable [phone] Encounter Details Date Type Department Care Team (Late st Contact Info) Description 12/18/2023 Telephone [facility] [place] [phone] Mya Naranjo MD [address] [place] [address] Social History Tobacco Use Types Packs/Day Years [...] - Veda Mcfarland, Clerical Staff - 12/18/2023 10:34 AM EDT left a message to schedule palcare consult documented in this encounter Plan of Treatment Upcoming Encounters Date Type Department Care Team (Late st Contact Info) Description 09/11/2024 1:45 PM EST Office Visit [facility] [address] [place] [address] Swapnil Lopez MD [address] [place] [address] 10/21/2024 2:00 PM EST Appointment [facility] [place] [facility] [address] [place] [address] Jacky Shirley MD [address] [place] [address] [place] [address] 10/23/2024 1:45 PM EST Appointment [place] [address] Olena Darby, YON 1 [facility] [place] [address] documented as of this encounter [...] on filedocumented in this encounter Care Teams Knocker Out Relationship Specialty Start Date End Date Damaso Black MD [address] [facility] [address] [place] [address] PCP - General Family Medicine 11/22/22 Swapnil Lopez MD [address] [place] [phone] Internal Medicine-Gastroenterology 02/16/22 Darío Rubio MD [address] [place] [address] Internal Medicine-Medical Oncology 12/11/23 documented as of this encounter
--- OUTSIDE RECORDS SUMMARY | 2024-08-15 13:53 | XMS_ITS | Encounter Summary ---
Author Organization [place] [address] Care Team Providers Care Back Tender Insulation Board Name Role Phone Swapnil Lopez MD Unavailable [phone] Damaso Black MD Primary Care Provider [phone] Encounter Details Date Type Department Care Team (Late st Contact Info) Description 11/13/2023 Social Work [facility] [place] [address] [place], [place] Social History Tobacco Use Types Packs/Day Years [...] Gabby Mercedes RMA documented in this encounter Progress Notes * Samina Torres MSW - 11/13/2023 1:30 PM EST 11/13/23 1329 Operations Intelligence Assessment Disease/[place] Site Technical Asst Assignment Breast cancer Reason for Referral Distress Tool Identified Needs Food Insecurity;Mental Health Social Work Interventions Education/Information;Brief Couseling/Support Distress Screening SW Reviewed Yes SW met w/ pt in tx suite, introduced self and SW role. SW reviewed distress tool. Pt shared most ofher distress arises from being incarcerated, anticipates being released in approximately 1 week. Ptshared having good family support. Pt denies any imminent needs, will contact SW if needs any non-medical needs. ITA Valencia, RESTAURANT DELIVERY DRIVER [facility] Outpatient Cancer Care Technical Asst Email: [email or web address] documented in this encounter Plan of Treatment Upcoming Encounters Date Type Department Care Team (Late st Contact Info) Description 09/11/2024 1:45 PM EST Office Visit [facility] [address] [place] [address] Swapnil Lopez MD [address] [place] [address] 10/21/2024 2:00 PM EST Appointment [facility] [place] [facility] [address] [place] [address] Jacky Shirley MD 1 [facility] CANCER CARE [place], [place] [id number] 10/23/2024 1:45 PM EST Appointment [facility] [address] [place], [place] [id number] Olena Darby APRN 1 [facility] CANCER [place], [place] [id number] documented as of this encounter Goals Goal [...] on filedocumented in this encounter Care Teams Back Tender Insulation Board Relationship Specialty Start Date End Date Damaso Black MD [address] [facility] [address] [place] [address] PCP - General Family Medicine 11/22/22 Swapnil Lopez MD [address] [place] [phone] Internal Medicine-Gastroenterology 02/16/22 documented as of this encounter
--- OUTSIDE RECORDS SUMMARY | 2024-08-15 13:53 | XMS_ITS | Encounter Summary ---
Author Organization [place] [address] Care Team Providers Care Academic Tutor Name Role Phone Swapnil Lopez MD Unavailable [phone] Damaso Black MD Primary Care Provider [phone] Reason for Referral * MRI/CAT Scan (Emergency) - Closed Specialty Diagnoses / Procedures Referred By Contac t Referred To Contact Radiology Diagnoses Invasive ductal carcinoma of left breast, stage 3 (HCC) Chronic nonintractable headache, unspecified headache type Procedures MRI BRAIN W WO CONTRAST Darío Rubio MD [address] [place] [address] [place] [address] Phone: tel: fax: [facility] [address] Phone: tel: fax: Referral ID Status Reason Start Date Expiration Date Visits Re quested Visits Authorized [id number] Closed 11/13/2023 11/12/2024 1 1 Reason for Visit * Reason Comments Consult Invasive ductal carc inoma of breast, left * Consultation (Routine) - Pending Review Specialty Diagnoses / Procedures Referred By Contac t Referred To Contact Oncology Diagnoses Invasive ductal carcinoma of breast, left (HCC) Ian Ruiz MD [address] [place] [address] [place] [address] Phone: tel: fax: Referral ID Status Reason Start Date Expiration Date Visits Requested Visits Authorized [id number] Pending Review Specialty Services Required 11/13/2023 11/12/2024 1 1 Encounter Details Date Type Department Care Team (Latest Contact Info) Description 11/13/2023 11:39 AM EST - 11/13/2023 11:59 AM EST Hospital Encounter [facility] [place] [address] Darío Rubio MD [address] [place] [address] Invasive ductal carcinoma of left breast, stage 3 (HCC) (Primary Dx); Chronic nonintractable headache, unspecified headache type Discharge Disposition: Home or Self Care Social [...] Sign Reading Time Taken Comments Blood Pressure 136/67 11/13/2023 11:44 AM EST Pulse 69 11/13/2023 11:44 AM EST Temperature 36.1 ??C (97 ??F) 11/13/2023 11:44 AM EST Respiratory Rate 18 11/13/2023 11:44 AM EST Oxygen Saturation 98% 11/13/2023 11:44 AM EST Inhaled Oxygen Concentration - - Weight 60.1 kg (132 lb 6.4 oz) 11/13/2023 11:44 AM EST Height 157.5 cm (5' 2 ) 11/13/2023 11:44 AM EST Body Mass Index 24.22 11/13/2023 11:44 AM EST documented in this encounter Functional Status * [...] Progress Notes * Darío Rubio MD - 11/13/2023 11:40 AM EST [facility] Hematology and Medical Oncology Patient: Marleni Way CSN: [id number] Date of : 1960 Age: 63 y.o. Date of Service: 11/13/2023 HEMATOLOGY/ONCOLOGY NEW PATIENT VISIT Primary Care Physician: Damaso Black MD Referring Physician: Radha Young MD Reason for Referral: Breast Cancer DIAGNOSIS & TREATMENT HISTORY: Oncology History Invasive [...] in the right breast. 11/13/2023 - Genetics Cancer Staging No matching staging information was found for the patient. CURRENT TREATMENT: Arimidex HISTORY OF PRESENT ILLNESS: Patient is a 63 y.o. female with a PMHx of Crohn's Disease and new diagnosis of Invasive Ductal Carcinoma of the Left Breast who is here to establish care with oncology. Patient reports feeling an enlarging breast lump. She is post-menopausal and has had a hysterectomyand no FMH of cancer. Dr. Mi- in . Had stomach removed, plastic stomach now. Prednisone prior. States blacking out for the last 3 years. Couple days ago and hit the floor. Sometimes with positions. Headaches and blurry vision worse last year or so. Weight loss. No new abdominal pain. She states she has had 23 surgeries for her Crohn's and prior fistulas and resections in the past and history of bowel cancer? Unconfirmed, but no chemo or radiation. REVIEW OF SYSTEMS: Review of Systems Constitutional: Positive for fatigue. Negative for appetite change, chills, diaphoresis, fever and unexpected weight change. HISTORY: Past Medical History: Diagnosis Date Anemia Cancer (HCC) Crohn disease (HCC) Encounter for blood transfusion Lab test positive for detection of COVID-19 virus 02/12/2021 02/16/21=pt stated that she tested COVID positive on 02/12/21 @ [facility], instructed pt to notify Dr Lantigua's office to reschedule surgery Past Surgical History: Procedure Laterality Date ANTERIOR COMPARTMENT DECOMPRESSION Left 04/15/2021 LEFT DEQUERVAINS RELEASE ; Surgeon: Henry Lantigua MD; [facility]; Service: Hand BREAST BIOPSY Left 10/26/2023 2:00 BREAST BIOPSY Left 10/26/2023 axilla node SECTION x2 COLON SURGERY x11 crohns COLONOSCOPY COLOSTOMY ILEOSTOMY OR JEJUNOSTOMY UPPER GASTROINTESTINAL ENDOSCOPY N/A 06/25/2016 ESOPHAGOGASTRODUODENOSCOPY with biopsy with conscious sedation; Surgeon: Christopher Matthews MD PHD; Location: [facility]; Service: Endoscopy Allergies Allergen Reactions [id number] Hives Sulfa (Sulfonamide Antibiotics) Family History Problem Relation Age of Onset Heart Disease Father Social History Socioeconomic History Marital status: Spouse name: None Number of children: None Years of education: None Highest education level: None Tobacco Use Smoking status: Never Smokeless tobacco: Never Vaping Use Vaping Use: Never used Substance and Sexual Activity Alcohol use: Not Currently Drug use: No MEDICATIONS: Current Outpatient Medications Medication loperamide (IMODIUM) 2 mg Oral Capsule ondansetron (ZOFRAN) 4 mg Oral Tablet predniSONE (DELTASONE) 10 mg Oral Tablet budesonide 9 mg Oral tablet, delayed & ext.release cyclobenzaprine (FLEXERIL) 5 mg Oral Tablet diphenoxylate-atropine (LOMOTIL) 2.5-0.025 mg Oral Tablet DULoxetine (CYMBALTA) 30 mg Oral Capsule, Delayed Release(E.C.) traMADoL (ULTRAM) 50 mg Oral Tablet No current facility-administered medications for this encounter. PHYSICAL EXAM: Vitals: 11/13/23 1144 BP: 136/67 Pulse: 69 Resp: 18 Temp: 97 ??F (36.1 ??C) SpO2: 98% Wt Readings from Last 3 Encounters: 11/13/23 132 lb 6.4 oz (60.1 kg) 11/22/22 139 lb (63 kg) 07/28/22 132 lb (59.9 kg) Breast exam conducted with [facility] General:Patient appears well developed, well nourished. Eyes: Conjunctiva and eyelids normal. Sclerae non-icteric. HEENT:External ears and nose without scars, lesions, or masses. Oropharynx without lesions. No mucositis, oral mucosa normal. Lips and gums normal. Neck: Thyroid non-palpable, non-tender, neck supple, symmetric without masses. Cardiac:S1, S2 normal without murmurs, rubs or gallops. Lungs: Clear to auscultation and percussion with unlabored breathing and no accessory muscle use. Abdomen: Soft, non-tender, non-distended, without masses, no HSM or ascites. Skin: Without rashes, petechiae or purpura. No induration or nodules on palpation. Lymphatic: No neck, axillary or groin lymphadenopathy. Neurologic: No loss of strength or sensation in upper or lower extremities. Normal gait. Extremities: No clubbing, cyanosis, or edema. Breast: left breast mass 3-4 cm, palpable axillary nodes LABORATORY DATA: WBC (x10(3)/mcL) Date Value 11/13/2023 5.8 01/20/2022 7.5 04/13/2021 9.1 06/25/2016 15.1 (H) 04/02/2015 8.5 06/25/2014 6.5 Hgb Date Value 11/13/2023 14.3 g/dL 01/20/2022 11.9 g/dL 04/13/2021 11.8 g/dL 06/25/2016 13.8 gm/dL 04/02/2015 12.5 gm/dL 06/25/2014 14.9 gm/dL Hct (%) Date Value 11/13/2023 41.8 01/20/2022 38.5 04/13/2021 37.5 06/25/2016 40.6 04/02/2015 37.9 06/25/2014 45.8 Platelet (x10(3)/mcL) Date Value 11/13/2023 230 01/20/2022 254 04/13/2021 236 06/25/2016 329 04/02/2015 212 06/25/2014 134 (L) Neut Percent (%) Date Value 11/13/2023 63.7 01/20/2022 84.2 04/13/2021 76.9 06/25/2016 80.6 04/02/2015 78.5 06/25/2014 60.3 Lymph Percent (%) Date Value 11/13/2023 24.3 01/20/2022 10.2 04/13/2021 11.6 06/25/2016 13.5 04/02/2015 10.4 06/25/2014 26.0 [place] Percent (%) Date Value 11/13/2023 10.2 01/20/2022 4.2 04/13/2021 9.8 06/25/2016 5.3 04/02/2015 10.5 06/25/2014 12.7 Total Protein (gm/dL) Date Value 11/13/2023 7.2 01/20/2022 7.3 04/13/2021 6.5 06/25/2016 8.6 (H) 04/02/2015 6.5 06/25/2014 8.6 (H) Albumin (gm/dL) Date Value 11/13/2023 4.3 01/20/2022 4.4 04/13/2021 3.8 06/25/2016 4.5 04/02/2015 2.6 (L) 06/25/2014 4.5 Bili Total (mg/dL) Date Value 11/13/2023 0.4 01/20/2022 0.2 04/13/2021 0.5 06/25/2016 0.6 04/02/2015 0.8 06/25/2014 0.5 ALT Date Value 11/13/2023 8 U/L 01/20/2022 15 U/L 04/13/2021 9 U/L 06/25/2016 7 IU/L 04/02/2015 44 IU/L (H) 06/25/2014 27 IU/L Alk Phos Date Value 11/13/2023 116 U/L 01/20/2022 63 U/L 04/13/2021 114 U/L 06/25/2016 91 IU/L 04/02/2015 185 IU/L (H) 06/25/2014 98 IU/L Sodium (mmol/L) Date Value 11/13/2023 142 04/13/2021 136 11/15/2019 139 06/25/2016 141 04/03/2015 136 04/02/2015 136 Potassium (mmol/L) Date Value 11/13/2023 3.6 04/13/2021 3.5 11/15/2019 4.1 06/25/2016 4.0 04/03/2015 4.0 04/02/2015 3.2 (L) Chloride (mmol/L) Date Value 11/13/2023 105 04/13/2021 100 11/15/2019 104 06/25/2016 99 04/03/2015 97 (L) 04/02/2015 96 (L) Total CO2 (mmol/L) Date Value 11/13/2023 28 04/13/2021 26 11/15/2019 25 06/25/2016 22 04/03/2015 30 (H) 04/02/2015 24 Anion Gap (mmol/L) Date Value 11/13/2023 9 04/13/2021 10 11/15/2019 10 06/25/2016 20 (H) 04/03/2015 9 04/02/2015 16 Calcium (mg/dL) Date Value 11/13/2023 10.1 04/13/2021 9.4 11/15/2019 9.4 06/25/2016 10.0 04/03/2015 7.7 (L) 04/02/2015 7.9 (L) Glucose Lvl (mg/dL) Date Value 11/13/2023 106 (H) 04/13/2021 116 (H) 11/15/2019 106 (H) 06/25/2016 95 04/03/2015 196 (H) 04/02/2015 91 BUN (mg/dL) Date Value 11/13/2023 11 04/13/2021 13 11/15/2019 16 06/25/2016 24 (H) 04/03/2015 4 (L) 04/02/2015 6 Creatinine (mg/dL) Date Value 11/13/2023 0.63 04/13/2021 0.94 11/15/2019 0.98 06/25/2016 0.60 04/03/2015 0.61 04/02/2015 0.64 GFR Afr Am Date Value 04/13/2021 77 mL/min/1.73 m2 11/15/2019 74 mL/min/1.73 m2 06/25/2016 >60 04/03/2015 >60 04/02/2015 >60 GFR Non Afr Am Date Value 04/13/2021 67 mL/min/1.73 m2 11/15/2019 64 mL/min/1.73 m2 06/25/2016 >60 04/03/2015 >60 04/02/2015 >60 IMAGES: MM US BREAST BIOPSY ADDITIONAL LEFT Addendum Date: 11/10/2023 November 10, 2023: Cancer staging added 11/10/23 Denice Donovan MD Result Date: 11/10/2023 ~ RECOMMENDATION: Surgical evaluation. MM US BREAST BIOPSY LEFT Addendum Date: 11/10/2023 November 10, 2023: Pathology results 11/10/23 Denice Donovan MD Result Date: 11/10/2023 ~ RECOMMENDATION: Surgical evaluation. MRI BREAST BILATERAL W WO CONTRAST W CAD Result Date: 11/06/2023 Known biopsy proven malignancy (ACR-Cateogry 6) 3.4 x 2.3 x 2.8 cm enhancing mass anterior left breast 1:00-2:00 corresponds to the index lesion previously biopsied. Multiple enlarged axillary, axillary tail, and subpectoral lymph nodes. ~ Right Breast: No MRI evidence of disease in the right breast. ~ RECOMMENDATION: Surgical evaluation. PATHOLOGY & OTHER INVESTIGATIONS: Lab Results Component Value Date FINALDX 10/26/2023 A) Left breast mass at 2 o'clock, needle biopsy: - Invasive ductal carcinoma, histologic grade 2 (3+2+2). 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 - The invasive tumor measures 10 mm in adri linear length. B) Left axilla abnormal lymph node, needle biopsy: - Metastatic ductal carcinoma. - The tumor measures 7 mm in adri linear length. Please refer to the addendum report for ER, PgR, and HER-2 results. The most recent radiologic imaging reports were reviewed. This case was reviewed by a second departmental pathologist with diagnostic agreement./HLR ASSESSMENT & PLAN Patient is a 63 y.o. female with a PMHx of Crohn's Disease and new diagnosis of Invasive Ductal Carcinoma of the Left Breast who is here to establish care with oncology. Invasive Ductal Carcinoma of Left Breast (T2N3Mx, ER+, FL+, HER2-) Patient coming from [facility]. Patient reports feeling an enlarging breast lump. She is post-menopausal and has had a hysterectomy and no FMH of cancer. Left breast mass and left axilla biopsied and revealing invasive ductal carcinoma, grade 2, some DCIS as well. ER 96%, FL 73%, HER2 2+, FISH negative, lymph node [...] oncotype. Saw Dr. Ruiz 11/13/23 as well. -Oncotype pending; if greater than 26 we would pursue chemotherapy- most likely AC-T; would discussside effects at next visit -PET scan to r/o metastatic disease as this would change tx management -MRI brain given she is having headaches/blurry vision worsening over the last year -Continue arimidex 1 mg daily; re-discussed side effects -Discussed given lymph node status, we would most likely consider her for adjuvant CDK4/6 inhibitorafter surgery as well A total of 65 minutes of the encounter was spent in performing the following complex tasks: 1) Reviewing medical records in [facility] and if applicable outside [...] call regarding any concerning symptoms or questions. Dispo: 2 weeks Thank you for the opportunity to assist in the care of this patient, please feel free to contact meif I can be of any assistance. Darío Rubio MD Hematology and Medical Oncology [facility] documented in this encounter Miscellaneous Notes * Addendum Note - Aislinn Viera RN - 11/13/2023 11:40 AM Mryonounter addended by: Aislinn Viera RN on: 11/15/2023 12:14 PM Actions taken: Flowsheet accepted documented in this encounter Plan of Treatment Upcoming Encounters Date Type Department Care Team (Late st Contact Info) Description 09/11/2024 1:45 PM EST Office Visit [facility] [address] [facility] [place] [address] Swapnil Lopez MD [address] [place] [phone] 10/21/2024 2:00 PM EST Appointment [facility] MRI [address] [place] [address] Jacky Shirley MD [address] [place] [address] [facility] [place], [place] [id number] 10/23/2024 1:45 PM EST Appointment [facility] [place] [address] Olena Darby APRN [address] [place] [address] [facility] [place], [place] [id number] documented as of this encounter Goals Goal [...] Results * MRI BRAIN W WO CONTRAST (11/23/2023 12:45 PM EST) Anatomical Region Laterality Modality Head Magnetic Resonan ce 11/23/2023 12:4 5 PM EST Impressions 11/23/2023 2:12 PM EST 1. ??No acute intracranial abnormality. 2. ??No evidence of brain metastases. 3. ??2.2 cm enhancing left frontal bone calvarial lesion is suspicious for calvarial metastasis. Correlation with pending PET/CT is recommended. 4. ??Minimal chronic microvascular ischemic changes with small remote pontine infarct. - Note: Radiology results need to be interpreted within a comprehensive clinical context. ??If you have questions about the radiology report, please contact the office of the ordering clinician. Narrative 11/23/2023 2:12 PM EST MRI BRAIN W WO CONTRAST ??11/23/2023 12:45 PM ?? CLINICAL HISTORY: ??C50.912-Malignant neoplasm of unspecified site of left female breast (HCC)-ICD-10-CM R51.9-Headache, kpemkxccpij-DKR-44-CM G89.29-Other chronic ruev-PXL-53-CM. COMPARISON: ??None. PROCEDURE COMMENTS: Multiplanar multiecho MR imaging of the brain per protocol before and following IV contrast administration. Gadolinium contrast given as recorded in Epic. FINDINGS: ?? Acute Ischemic Change: No evidence of restricted diffusion to suggest an acute infarct. ?? Hemorrhage: No evidence of prior parenchymal hemorrhage on the gradient echo images. Mass Effect / Mass Lesion: No mass effect. ??No evidence of an intracranial mass or extra-axial fluid collection. Parenchyma: T1-weighted imaging sequences including postcontrast sequences are at least mildly motion degraded. There is no abnormal parenchymal enhancement on postcontrast imaging. There is an enhancing calvarial lesion involving the left frontal lobe with involvement of the inner table. There is probable asymmetric thin underlying dural enhancement/thickening, which may be reactive. No other abnormal leptomeningeal enhancement on postcontrast imaging. A [...] normal limits of signal intensity and morphology. ?? Ventricles: Normal caliber and morphology. Skull Base: [...] enhancement/thickening which may be reactive. This is suspicious for calvarial metastasis. PET/CT is currently pending and correlation with those results is recommended. Vasculature: Major intracranial arterial structures and dural venous sinuses show typical flow void, suggesting patency by spin echo criteria. ?? Sinuses: Mild chronic mucosal thickening involving the maxillary sinuses. Visualized remaining paranasal sinuses and mastoid air cells are grossly clear. Orbits: Grossly normal. Soft Tissues: The visualized extracranial soft tissues are grossly normal. Procedure Note Ian Buck MD - 11/23/2023 MRI BRAIN W WO CONTRAST 11/23/2023 12:45 PM CLINICAL HISTORY: C50.912-Malignant neoplasm of unspecified site of leftfemale breast (HCC)-ICD-10-CM R51.9-Headache, uihslpeqkzw-ULT-19-CM G89.29-Other chronic ebcv-DDC-41-CM. COMPARISON: None. PROCEDURE COMMENTS: Multiplanar multiecho MR imaging of the brain perprotocol before and following IV contrast administration. Gadolinium contrast givenas recorded in Epic. FINDINGS: Acute Ischemic Change: No evidence of restricted diffusion to suggest anacute infarct. Hemorrhage: No evidence of prior parenchymal hemorrhage on the gradientecho images. Mass Effect / Mass Lesion: No mass effect. No evidence of an intracranialmass or extra-axial fluid collection. Parenchyma: T1-weighted imaging sequences including postcontrast sequencesare at least mildly motion degraded. There is no abnormal parenchymalenhancement on postcontrast imaging. There is an enhancing calvarial lesion involving theleft frontal lobe with involvement of the inner table. There is probableasymmetric thin underlying dural enhancement/thickening, which may be reactive. Noother abnormal leptomeningeal enhancement on postcontrast imaging. A fewscattered similar foci of T2/FLAIR hyperintensity involving the periventricularand subcortical white matter of the supratentorial brain are completelynonspecific, but most compatible with the sequela of minimal chronic microvascularischemia in a patient of this age. Small remote infarct involving the posteriorpons. The brain parenchyma is otherwise within normal limits of signal intensityand morphology. Ventricles: Normal caliber and morphology. Skull Base: Hypothalamic and pituitary region are grossly normal.Craniocervical junction is normal. As previously mentioned, there is an abnormal ovoidleft frontal bone calvarial lesion with involvement of the inner table. Thislesion demonstrates T2/FLAIR hyperintensity with corresponding precontrastT1-weighted hypointensity and DWI hyperintensity. This lesion enhances onpostcontrast imaging and measures approximately 2.2 x 1.1 x 1.2 cm. As mentioned above,there is probable thin underlying dural enhancement/thickening which may bereactive. This is suspicious for calvarial metastasis. PET/CT is currently pendingand correlation with those results is recommended. Vasculature: Major intracranial arterial structures and dural venoussinuses show typical flow void, suggesting patency by spin echo criteria. Sinuses: Mild chronic mucosal thickening involving the maxillarysinuses. Visualized remaining paranasal sinuses and mastoid air cells are grosslyclear. Orbits: Grossly normal. Soft Tissues: The visualized extracranial soft tissues are grosslynormal. IMPRESSION: 1. No acute intracranial abnormality. 2. No evidence of brain metastases. 3. 2.2 cm enhancing left frontal bone calvarial lesion is suspiciousfor calvarial metastasis. Correlation with pending PET/CT is recommended. 4. Minimal chronic microvascular ischemic changes with small remotepontine infarct. - Note: Radiology results need to be interpreted within a comprehensiveclinical context. If you have questions about the radiology report, please contactthe office of the ordering clinician. us Darío Rubio MD IM MRI ORDERABLES Final Resul t documented in this encounter Visit Diagnoses Diagnosis Invasive ductal carcinoma of left breast, stage 3 (HCC)- Primary Chronic nonintractable headache, unspecified headache type Invasive ductal carcinoma of left breast, stage 3 (HCC) Chronic nonintractable headache, unspecified headache type documented in this encounter Discontinued Medications Medication Sig Discontinue Reason Start Date End Da te budesonide 9 mg Oral tablet, delayed & ext.release Take 1 Tablet by mouth daily. Cancelled by 07/28/2022 11/13/2023 cyclobenzaprine (FLEXERIL) 5 mg Oral Tablet Take 5 mg by mouth as needed. Cancelled by 01/07/2020 11/13/2023 DULoxetine (CYMBALTA) 30 mg Oral Capsule, Delayed Release(E.C.) Cancelled by 11/03/2020 11/13/2023 documented as of this encounter Care Teams Academic Tutor Relationship Specialty Start Date End Date Damaso Black MD [address] [facility] [address] [place] [address] PCP - General Family Medicine 11/22/22 Swapnil Lopez MD [address] [place] [phone] Internal Medicine-Gastroenterology 02/16/22 documented as of this encounter
--- OUTSIDE RECORDS SUMMARY | 2024-08-15 13:53 | XMS_ITS | Encounter Summary ---
Author [place] [address] Care Team Providers Care Exhibit Designer Name Role Phone Swapnil Lopez MD Unavailable [phone] Damaso Black MD Primary Care Provider [phone] Reason for Referral * Mammography (Routine) - Closed Specialty Diagnoses / Procedures Referred By Lata deal Referred To Contact Radiology Diagnoses Mass of left breast, unspecified quadrant Procedures MM US BREAST BIOPSY LEFT Slava White ARNP [address] [place] [address] Phone: tel: [facility] [place] [address] Phone: tel: fax: Referral ID Status Reason Start Date Expiration Date Visits Re quested Visits Authorized [id number] Closed 10/13/2023 10/13/2025 1 1 Reason for Visit * Mammography (Routine) - Closed Specialty Diagnoses / Procedures Referred By Lata deal Referred To Contact Radiology Diagnoses Mass of left breast, unspecified quadrant Procedures MM US BREAST BIOPSY LEFT Slava White ARNP [address] [place] [address] Phone: tel: [facility] [place] [id number] Phone: tel: fax: Referral ID Status Reason Start Date Expiration Date Visits Re quested Visits Authorized [id number] Closed 10/13/2023 10/13/2025 1 1 Encounter Details Date Type Department Care Team (Latest Contact Info) Description 10/26/2023 8:50 AM EST - 10/26/2023 8:52 AM [facility] Hospital Encounter [facility] [place] [id number] Slava White, [address] [address] Mass of left breast, unspecified quadrant Discharge Disposition: Home or Self Care Social [...] La Garza RMA documented in this encounter Discharge Instructions * Discharge Instructions* Vy Doan, RT - 10/26/2023 9:41 AM EST [facility] BREAST BIOPSY DISCHARGE INSTRUCTIONS DISCOMFORT You may experience discomfort, bruising, a lump or knot at the biopsy site. Wear a supportive bra for 2-3 days to help minimize swelling and discomfort. If needed, apply an ice pack inside your bra (on top of the dressing) for 15 to 20 minutes during the first 24-48 hours after the procedure. Take acetaminophen (Tylenol) as needed for discomfort. DO NOT take aspirin, ibuprofen (Advil, Motrin) or naproxen (Aleve). Avoid strenuous activity until Tegaderm and Steri-strips are removed. DRESSING ONE DAY POST BIOPSY: Remove the pressure dressing and gauze in the morning. You can shower after removing pressure dressing and gauze. SECOND DAY POST BIOPSY: Remove the Tegaderm and Steri-Strips. WHEN TO CALL [facility] If you have: Fever. Excessive bleeding. Excessive pain, drainage, redness, swelling or warmth. You have any questions or concerns. Contact [facility]: 7:30 a.m - 3:30 p.m. Monday to Monday at [phone] Emergencies outside of normal business hours: Call [phone] and ask for the Radiologist sexton helper You may also contact your doctor's office A small marker has been placed at the biopsy site, this allows any Radiologist who reads your future mammograms to recognize a biopsy has been performed in this area. If surgery is performed to remove this area, the marker will be removed at that time. Your doctor will receive the pathology results in 2 business days. When finalized, your results will also be available in [employer]. You will be scheduled in our department to discuss the results with the radiologist. Your recommendation for follow-up after your procedure will be placed in the follow-up system at [facility]. You will be sent a reminder in 6-12 months for a follow-up mammogram and/or ultrasound as recommended. Please remember that good breast health includes mammograms, and annual breast exams performed by your physician. documented in this encounter Medications at Time [...] PM EST Office Visit [facility] [address] [place] [address] Swapnil Lopez MD [address] [place] [address] 10/21/2024 2:00 PM EST Appointment [facility] [address] [place] [address] Jacky Shirley MD [address] [place] [address] 10/23/2024 1:45 PM EST Appointment [facility] [place] [address] Olena Darby APRN [address] [place] [address] documented as of this encounter Goals Goal Patient Goal Type Associated Problems Recent Progress Patient-Stated? Author Maintain a healthy diet, exercise regularly and maintain an ideal body weight General No Linda Walden, RMA documented as of this encounter Procedures Procedure Name Priority Date/Time Associated Diagnosis Comments MM US BREAST BIOPSY LEFT Routine 10/26/2023 10:02 AM EST Mass of left breast, unspecified quadrant PATHOLOGY TISSUE REQUEST Routine 10/26/2023 9:48 AM EST documented in this encounter Results * MM US BREAST BIOPSY LEFT (10/26/2023 10:02 AM EST) Anatomical Region Laterality Modality Breast Left Mammography 10/26/2023 3:53 PM EST Addenda Addendum by Denice James MD on 11/24/2023 9:12 AM EST November 10, 2023: Pathology results 11/10/23 Denice Donovan MD November 24, 2023: Cancer staging added 11/24/23 Denice Donovan MD Addendum by Denice James MD on 11/10/2023 12:47 PM EST November 10, 2023: Pathology results 11/10/23 Denice Donovan MD Impressions 10/26/2023 3:53 PM EST ~ RECOMMENDATION: Surgical evaluation. Narrative 10/26/2023 3:53 PM EST MM US BREAST BX LEFT Technologist: Vy Doan RT ~ Prior study comparison: Compared with prior studies, the most recent being 10/12/23. INDICATION- N63.20-Unspecified lump in the left breast, unspecified [id number] ~ Under ultrasound guidance with sterile technique and local anesthesia, a total of 3 biopsies of the lesion in question in the left breast were completed using a 12 gauge true cut needle. An addendum report will be made when the pathology report is available. A metal clip was left in place. Guided images were permanently archived. 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 Cancer stage IIB: T2 - Tumor more than 2 cm but not more than 5 cm in greatest dimension, N1 - Metastasis to movable ipsilateral axillary lymph nodes, M0 - No clinical or radiographic evidence of distant metastases. ADDENDUM: Procedure Note Denice James MD - 11/24/2023 MM US BREAST BX LEFT Technologist: Vy Doan RT ~ Prior study comparison: Compared with prior studies, the most recentbeing 10/12/23. INDICATION- N63.20-Unspecified lump in the left breast, unspecified [id number] ~ Under ultrasound guidance with sterile technique and local anesthesia, a total of 3 biopsies of the lesion in question in the left breast were completed using a 12 gauge true cut needle. An addendum report will bemade when the pathology report is available. A metal clip was left in place. Guided images were permanently archived. 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 Cancer stage IIB: T2 - Tumor more than 2 cm but not more than 5 cm in greatest dimension, N1 - Metastasis to movable ipsilateral axillarylymph nodes, M0 - No clinical or radiographic evidence of distant metastases. ADDENDUM: IMPRESSION: ~ RECOMMENDATION: Surgical evaluation. Slava LAZAR IM MAMMOGRAPHY ORDERABLES Edited Result - Final * PATHOLOGY TISSUE REQUEST (10/26/2023 9:48 AM EST) CASE REPORT Surgical Pathology ?Case: [id number] ? Authorizing Provider: ??Slava White ARNP ?Collected: ? 10/26/2023 0948 ? Ordering Location: ? [facility] ? Received: ?10/26/2023 1017 ? Pathologist: ? Tika Mc MD ? Specimens: ?? A) - Breast, Left, palpable 2:00 3cm irregular hypoechoic mass Cat 5; Time of 1st ? core 0926; Time in formalin 0929 ? B) - Axilla, Left, abnormal node; Time of 1st core 0936; Time in formalin 0938 ? 11/21/2023 11:13 AM [facility] FINAL DIAGNOSIS A) Left breast mass at 2 o'clock, [...] a second departmental pathologist with diagnostic agreement./HLR 11/21/2023 11:13 AM [facility] NDUM A) Left breast mass at 2 o'clock, needle biopsy: - Invasive ductal carcinoma, histologic grade 2 (3+2+2). 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 - The invasive tumor measures 10 mm in adri linear length. Breast Biomarker Reporting Summary for ER, PgR and HER2 TEST RESULT % of nuclei staining/Intens ity/Trini Score ER by IHC Positive 96% / 3+ / 8 PgR by IHC Positive 73% / 3+ / 8 HER2 by IHC Equivocal/Low 2+ HER-2 by FISH Negative -- External controls stain appropriately. Percentage of cells with uniform intense complete HER2 membrane stainin% HER2 (ERBB2) (by in situ hybridization) FISH: Performed METHODS + Testing Performed on Block Number(s): [id number] Fixative: Formalin Cold Ischemia and Fixation Times Meet requirements specified in latest version of the ASCO/CAP Guidelines See scanned detailed report in Epic. B) Left axilla abnormal lymph node, needle biopsy: - Metastatic ductal carcinoma. - The tumor measures 7 mm in adri linear length. Breast Biomarker Reporting Summary for ER, PgR and HER2 TEST RESULT % of nuclei staining/Intens ity/Trini Score ER by IHC Positive 96% / 3+ / 8 PgR by IHC Positive 22% / 3+ / 6 HER2 by IHC Negative/Low 1+ HER-2 by FISH Not performed -- External controls stain appropriately. Percentage of cells with uniform intense complete HER2 membrane stainin% HER2 (ERBB2) (by in situ hybridization) FISH: NOT PERFORMED METHODS + Testing Performed on Block Number(s): [id number] Fixative: Formalin Cold Ischemia and Fixation Times Meet requirements specified in latest version of the ASCO/CAP Guidelines See scanned detailed report in Epic. 11/21/2023 11:13 AM [facility] Addendum electronically signed by Tika Mc MD on 11/08/2023 at 3:37 PM Preliminary result electronically signed by Tika Mc MD on 11/01/2023 at 3:20 PM Addendum # 2 Refer to Scanned OncotypeDX Breast Report. 11/21/2023 11:13 AM EST [facility] Addendum electronically signed by Tika Mc MD on 11/21/2023 at 11:13 AM GROSS DESCRIPTION A. Received in formalin, in a container labeled with the patient's name, hospital number, and Left breast palpable 2:00 3cm irregular hypoechoic mass Cat 5; Time of 1st core 09; Time in formalin 0929 , are 5 ford-yellow to ford-pink fibroadipose tissue cores, 0.9-2.8 cm in length x less than 0.1-0.3 cm in diameter. One core per cassette is inked orange and the cores are entirely submitted as follows: A1: 5 cores Cold Ischemia Time: 3 minutes (Time removed from patient: 925; Time placed in formalin 928 on 10/26/2023) Formalin Fixation Time: 14 hours 1 minute (Time removed from formalin: 2330 on 10/26/2023) RAMONA Flynn PA ([facility]) 10/26/2023 11:10 AM B. Received in formalin, in a container labeled with the patient's name, hospital number, and left axilla abnormal node; Time of 1st core 0936; Time in formalin 0938 , are 3 ford-yellow to ford-pink fibroadipose tissue cores, 1.1-1.6 cm in length x less than 0.1-0.2 cm in diameter. One core per cassette is inked black and the cores are entirely submitted as follows: B1: 3 cores Cold Ischemia Time: 2 minutes (Time removed from patient: 935; Time placed in formalin 0938 on 10/26/2023) Formalin Fixation Time: 13 hours 52 minutes (Time removed from formalin: 2330 on 10/26/2023) RAMONA Flynn PA ([facility]) 10/26/2023 11:10 AM 11/21/2023 11:13 AM EST [facility] MICROSCOPIC DESCRIPTION Microscopic examination is performed and the findings corroborate the diagnosis. The ink color of the needle biopsy on glass slides match the ink color in the gross description. 11/21/2023 11:13 AM EST [facility] BEST TISSUE BLOCK FOR ANCILLARY STUDIES A1 11/21/2023 11:13 AM EST [facility] EMBEDDED IMAGES 11/21/2023 11:13 AM EST [facility] Tissue STRUCTURE OF LEFT AXILLARY REGION / Unknown 10/26/2023 9:48 AM EST 10/26/2023 10:17 AM EST Comment:Performed by Dr Gena arroyo.Please send results to [facility]. Tissue specimen (specimen) STRUCTURE OF LEFT AXILLARY REGION / Unknown 10/26/2023 9:48 AM EST 10/26/2023 10:17 AM EST Comment:Performed by Dr Gena arroyo.Please send results to [facility]. Slava LAZAR PATHOLOGY ORDERABLES Edite d Result - Final [facility] [address] [place] [address] documented in this encounter Visit Diagnoses Diagnosis Mass of left breast, unspecified quadrant documented in this encounter Care Teams Exhibit Designer Relationship Specialty Start Date End Date Damaso Black MD [address] [address] PCP - General Family Medicine 11/22/22 Swapnil Lopez MD [address] [place] [phone] Internal Medicine-Gastroenterology 02/16/22 documented as of this encounter
--- OUTSIDE RECORDS SUMMARY | 2024-08-15 13:53 | XMS_ITS | Encounter Summary ---
Author Organization [place] [address] Care Team Providers Care Wet Crown Blocking Operator Name Role Phone Swapnil Lopez MD Unavailable [phone] Damaso Black MD Primary Care Provider [phone] Darío Rubio MD Unavailable [phone] Reason for Visit * Reason Onset Date Comments Orders 11/13/2023 Oncotype ordered on 11/13 Encounter Details Date Type Department Care Team (Late st Contact Info) Description 11/13/2023 Telephone [facility] [place] [phone] Sandy Mascorro, Clerical Staff Orders (Oncotype ordered on 11/13) Social History Tobacco Use Types Packs/Day Years [...] encounter Miscellaneous Notes * Telephone Encounter - Ginger Gunter RN - 11/27/2023 10:58 AM EST Reviewed with Dr. Ruiz, pt is seeing Dr. Rubio today at 11:00-he will review results and handle her care and refer back to Dr. Ruiz if needed. * Telephone Encounter - Mary Kate Winchester RN - 11/22/2023 10:46 AM EST Called [facility]. [facility]. Recommendations given of no chemotherapy but did note that patient has PET scan/ MRI and based off results of that could have other recommendations. Once pet and CT are available, review with braulio and see if/when pt needs to come in for surgical planning. * Telephone Encounter - Mary Kate Winchester RN - 11/22/2023 9:07 AM EST Per braulio- no chemotherapy recommended. * Telephone Encounter - Kiera Mari RN - 11/21/2023 11:17 AM EST Oncotype recurrence score: 23 Distant recurrence at 9 years: 19% NN to speak with Dr. Ruiz 11/22 for recommendations. Pt is currently at the [facility] and must call them with recommendations. Pt saw Dr. Rubio in Med Onc 11/13-per note-if Oncotype 26, will proceed with chemo. * Telephone Encounter - Ginger Gunter RN - 11/13/2023 2:09 PM EST Order placed. * Telephone Encounter - Lara Heredia, Clerical Staff - 11/13/2023 1:[address] Ruiz would like patient to be re-presented in breast conference after oncotype score is back NN please place tumor board referral * Telephone Encounter - Sandy Mascorro, Clerical Staff - 11/13/2023 1:06 PM EST Oncotype ordered on 11/13 * Telephone Encounter - Sandy Mascorro, Clerical Staff - 11/13/2023 1:06 PM EST ----- Message from Mary Kate Winchester RN sent at 11/13/2023 11:40 AM EST ----- Regarding: ONCOTYPE Dr. Ruiz would like to have Oncotype sent for this patient to determine role for chemotherapy and will call patient when results are available unless otherwise instructed. Please order Oncotype on Biopsy pathology 1/25/24 Tumor size 3cm Please make sure to remind NN in our ONCOTYPE telephone encounter to schedule patient for appropriate follow up appointment if not already scheduled. Thank you so much documented in this encounter Plan of Treatment Upcoming Encounters Date Type Department Care Team (Late st Contact Info) Description 09/11/2024 1:45 PM EST Office Visit [facility] [address] [facility], [place] [phone] Swapnil Lopez MD [address] [facility] [phone] 10/21/2024 2:00 PM EST Appointment [facility] MRI [address] [place] [address] Jacky Shirley MD [address] [place] [id number] 10/23/2024 1:45 PM EST Appointment [facility] [address] [place], [place] [id number] Olena Darby APRN [address] [place] [id number] documented as of this encounter Goals Goal Patient Goal Type Associated Problems Recent Progress Patient-Stated? Author Breast [facility] Breast Health Mary Kate Vázquez, RN Note: Patient acknowledges understanding of new diagnosis, plan of care, available resources and how to contact Nurse Navigator with any future questions or concerns. Maintain a healthy diet, exercise regularly and maintain an ideal body weight General Linda Perez, RMA documented as of this encounter Visit Diagnoses Diagnosis Invasive ductal carcinoma of breast, female, left (HCC)- Primary documented in this encounter Orders Appointment Requests Count Last Ordered Date Fi rst Ordered Date [facility] ONCBCN BASE TUMOR BOARD 1 11/13/2023 documented in this encounter Care Teams Wet Crown Blocking Operator Relationship Specialty Start Date End Date Damaso Black MD [address] [facility] [address] [place] [address] PCP - General Family Medicine 11/22/22 Swapnil Lopez MD [address] [place] [phone] Internal Medicine-Gastroenterology 02/16/22 Darío Rubio MD [address] [place] [address] [place] [address] Internal Medicine-Medical Oncology 12/11/23 documented as of this encounter
--- OUTSIDE RECORDS SUMMARY | 2024-08-15 13:53 | XMS_ITS | Encounter Summary ---
Author Organization [place] [address] Care Team Providers Care Salad Maker Name Role Phone Swapnil Lopez MD Unavailable [phone] Damaso Black MD Primary Care Provider [phone] Reason for Visit * Reason Onset Date Comments Schedule Appointment 11/14/2023 MRI Encounter Details Date Type Department Care Team (Late st Contact Info) Description 11/14/2023 Telephone [facility] Medical Oncology [place] [phone] Darío Rubio MD [address] [place] [address] Schedule Appointment (MRI ) Social History Tobacco Use Types Packs/Day [...] Encounter - Nikky Virgen, Clerical Staff - 11/15/2023 9:40 AM EST Pt is currently at [facility]. CS is arranging the appt with them. Will advise once appt has been made. * Telephone Encounter - Aislinn Viera RN - 11/14/2023 2:00 PM EST Patient seen by Dr. Rubio 11/13. Scheduled for her PET scan on 11/23. Needing to coordinate MRI on 11/23 as well. Routing to med onc scheduling and central scheduling to assist. documented in this encounter Plan of Treatment Upcoming Encounters Date Type Department Care Team (Late st Contact Info) Description 09/11/2024 1:45 PM EST Office Visit [facility] [address] [facility] [place] [address] Swapnil Loepz MD [address] [place] [address] 10/21/2024 2:00 PM EST Appointment [facility] [address] [place] [address] Jcaky Shirley MD 1 [facility] [place], [place] [phone] 10/23/2024 1:45 PM EST Appointment [facility] [address] [place], [place] [phone] Olena Darby, YON [address] [facility] [place], [place] [phone] documented as of this encounter Goals Goal [...] on filedocumented in this encounter Care Teams Salad Maker Relationship Specialty Start Date End Date Damaso Black MD 100[address] [facility] [address] [place] [address] PCP - General Family Medicine 11/22/22 Swapnil Lopez MD [address] [place] [phone] Internal Medicine-Gastroenterology 02/16/22 documented as of this encounter
--- OUTSIDE RECORDS SUMMARY | 2024-08-15 13:53 | XMS_ITS | Encounter Summary ---
Author Organization [place] [address] Care Team Providers Care Apprentice Carpenter Name Role Phone Swapnil Lopez MD Unavailable [phone] Damaso Black MD Primary Care Provider [phone] Encounter Details Date Type Department Care Team (Latest Contact Info) Description 10/30/2023 9:30 AM EST - 10/30/2023 11:59 PM [facility] Hospital Encounter [facility] Women's [facility] [place] [phone] Invasive ductal carcinoma of breast, left (HCC) (Primary Dx) Discharge Disposition: Home or [...] PM EST Office Visit [facility] [address] [place] [address] Swapnil Lopez MD [address] [place] [address] 10/21/2024 2:00 PM EST Appointment [facility] MRI [address] [place] [address] Jacky Shirley MD [address] [place] [address] [place] [address] 10/23/2024 1:45 PM EST Appointment [facility] [place] [address] Olena Darby APRN [address] [place] [address] [place] [address] documented as of this encounter Goals Goal Patient Goal Type Associated Problems Recent Progress Patient-Stated? Author Maintain a healthy diet, exercise regularly and maintain an ideal body weight General No Linda Walden, RMA documented as of this encounter Visit Diagnoses Diagnosis Invasive ductal carcinoma of breast, left (HCC)- Primary documented in this encounter Care Teams Apprentice Carpenter Relationship Specialty Start Date End Date Damaso Black MD 100[address] [facility] [address] [place] [address] PCP - General Family Medicine 11/22/22 Swapnil Lopez MD [address] [place] [phone] Internal Medicine-Gastroenterology 02/16/22 documented as of this encounter
--- OUTSIDE RECORDS SUMMARY | 2024-08-15 13:53 | XMS_ITS | Encounter Summary ---
Author Organization [place] [address] Care Team Providers Care Cashiers Supervisor Name Role Phone Swapnil Lopez MD Unavailable [phone] Damaso Black MD Primary Care Provider [phone] Reason for Referral * Mammography (Routine) - Closed Specialty Diagnoses / Procedures Referred By Contac t Referred To Contact Radiology Diagnoses Lump in female breast Procedures MM US BREAST LIMITED LEFT Slava White ARNP [address] [place] [address] Phone: tel: Referral ID Status Reason Start Date Expiration Date Visits Re quested Visits Authorized [id number] Closed 07/04/2023 07/04/2025 1 1 Reason for Visit * Mammography (Routine) - Closed Specialty Diagnoses / Procedures Referred By Lata t Referred To Contact Radiology Diagnoses Lump in female breast Procedures MM US BREAST LIMITED LEFT Slava White ARNP [address] [place] [address] Phone: tel: Referral ID Status Reason Start Date Expiration Date Visits Re quested Visits Authorized [id number] Closed 07/04/2023 07/04/2025 1 1 Encounter Details Date Type Department Care Team (Latest Contact Info) Description 10/12/2023 12:52 PM EST - 10/12/2023 11:59 PM EST Hospital Encounter [facility] Ultrasound [address] [place] [address] WhiteSlava, TIMBER INCISOR OPERATOR [address] [place] [address] Lump in female breast Discharge Disposition: Home or Self Care Social [...] PM EST Office Visit [facility] [address] [facility], [place] [id number] Swapnil Lopez MD [address] [place] [address] 10/21/2024 2:00 PM EST Appointment [facility] MRI [address] [place] [address] Jacky Shirley MD [address] [place] [address] [place], [place] [id number] 10/23/2024 1:45 PM EST Appointment [facility] [place], [place] [id number] Olena Darby APRN [address] [place] [id number] documented as of this encounter Goals Goal Patient Goal Type Associated Problems Recent Progress Patient-Stated? Author Maintain a healthy diet, exercise regularly and maintain an ideal body weight General No Linda Walden, RMA documented as of this encounter Procedures Procedure Name Priority Date/Time Associated Diagnosis Comments MM US BREAST LIMITED LEFT Routine 10/12/2023 1:11 PM EST Lump in female breast documented in this encounter Results * MM US BREAST LIMITED LEFT (10/12/2023 1:11 PM EST) Anatomical Region Laterality Modality Breast Left Ultrasound 10/12/2023 2:37 PM EST Impressions 10/12/2023 2:37 PM EST Highly suggestive of malignancy ([id number]) Suspicious left breast mass and pathologic-appearing left axillary adenopathy. ~ RECOMMENDATION: Ultrasound guided core biopsy of the left breast. ~ DISCLAIMER * Any patient with a [...] the next mammogram, in accordance with the [place] [employer] and the Society of Breast Imaging recommendations. Narrative 10/12/2023 2:37 PM EST Procedure:MM US BREAST LIMITED LEFT ~ N63.0-Unspecified lump in unspecified [id number] ~ MM US BREAST LIMITED LEFT Standard views. Corresponding to the palpable left breast mass 2:00 position is a large irregular hypoechoic mass that is difficult to measure accurately but is approximately 3.6 x 2 cm in size. Multiple enlarged left axillary nodes are also present, largest about 2.6 x 3.2 cm in size. The dominant node has thickened cortex and loss of fatty hilum. ~ Procedure Note Greg Hammonds MD - 10/12/2023 Procedure:MM US BREAST LIMITED LEFT ~ N63.0-Unspecified lump in unspecified [id number] ~ MM US BREAST LIMITED LEFT Standard views. Corresponding to the palpable left breast mass 2:00 position is a large irregular hypoechoic mass that is difficult to measure accurately but is approximately 3.6 x 2 cm in size. Multiple enlarged left axillary nodesare also present, largest about 2.6 x 3.2 cm in size. The dominant node has thickened cortex and loss of fatty hilum. ~ IMPRESSION: Highly suggestive of malignancy ([id number]) Suspicious left breast mass and pathologic-appearing left axillary adenopathy. ~ RECOMMENDATION: Ultrasound guided core biopsy of the left breast. ~ DISCLAIMER * Any patient with a [...] the next mammogram, in accordance with the [place] [employer] and the Society of Breast Imaging recommendations. Slava Dickens [facility] MAMMOGRAPHY ORDERABLES Final Result documented in this encounter Visit Diagnoses Diagnosis Lump in female breast Lump or mass in breast documented in this encounter Care Teams Cashiers Supervisor Relationship Specialty Start Date End Date Damaso Black MD [address] [facility] [address] [place] [address] PCP - General Family Medicine 11/22/22 Swapnil Lopez MD [address] [place] [phone] Internal Medicine-Gastroenterology 02/16/22 documented as of this encounter
--- OUTSIDE RECORDS SUMMARY | 2024-08-15 13:53 | XMS_ITS | Encounter Summary ---
Author Organization [place] [address] Care Team Providers Care Diesel Tractor Operator Name Role Phone Swapnil Lopez MD Unavailable [phone] Damaso Black MD Primary Care Provider [phone] Darío Rubio MD Unavailable [phone] Mya Naranjo MD Unavailable [phone] Ashley Ordonez CLOUD SERVICES ARCHITECT Unavailable [phone] Nicole Melendez RN Unavailable Unavailable Aislinn Viera RN Unavailable Unavailable Ronit Conner RN Unavailable Unavailable Armando Vieira HEAD UP OPERATOR HELPER Unavailable Unavailable Vicki Amato RN Unavailable UnavailTrinh Soto CLOUD SERVICES ARCHITECT Unavailable [phone] Selina Olsen CLOUD SERVICES ARCHITECT Unavailable [phone] Veda Mcfarland Clerical Staff Unavailable U navailable Encounter Details Date Type Department Care Team (Late st Contact Info) Description 10/26/2023 Orders Only [facility] [address] [facility] [place] [address] Tika Mc MD [address] [place] [phone] Social History Tobacco Use Types Packs/Day Years [...] PM EST Office Visit [facility] [address] [place] [address] Swapnil Lopez MD [address] [place] [address] 10/21/2024 2:00 PM EST Appointment [facility] MRI [address] [place] [address] Jacky Shirley MD [address] [place] [address] [place] [address] 10/23/2024 1:45 PM EST Appointment [facility] [place], [place] [phone] Olena Darby APRN [address] [facility] [place] [address] documented as of this encounter Goals Goal Patient Goal Type Associated Problems Recent Progress Patient-Stated? Author Maintain a healthy diet, exercise regularly and maintain an ideal body weight General No Linda Walden, RMA documented as of this encounter Procedures Procedure Name Priority Date/Time Associated Diagnosis Comments NEOGENOMICS BREAST PANEL (3 STAIN) Routine 10/26/2023 9:48 AM EST documented in this encounter Results * NEOGENOMICS BREAST PANEL (3 STAIN) (10/26/2023 9:48 AM EST) 10/26/2023 9:48 AM EST Narrative [facility] - 11/01/2023 3:22 PM EST Requesting Provider: CANDY ??ELIZA Freire Specimen = [id number] Tika Mc MD PATHOLOGY ORDERABLES Final Resul t [facility] 1 [place], [place] [id number] documented in this encounter Visit Diagnoses Not on filedocumented in this encounter Care Teams Diesel Tractor Operator Relationship Specialty Start Date End Date Damaso Black MD [facility] [address] [place] [address] PCP - General Family Medicine 11/22/22 Swapnil oLpez MD [address] [place] [phone] Internal Medicine-Gastroenterology 02/16/22 Darío Rubio MD 1 [facility] [place] [address] Internal Medicine-Medical Oncology 12/11/23 Mya Naranjo MD [address] [facility] [place] [address] Family Medicine - Hospice And Palliative Medicine 01/04/24 Ashley Ordonez, YON [address] [facility] [place] [address] Nurse Practitioner 01/04/24 Nicole Melendez, RN Registered Nurse 01/04/24 Aislinn Viera, RN Registered Nurse 02/07/24 Ronit Conner, RN Registered Nurse 04/10/24 Armando Vieira MSW Yarn Hauler 04/10/24 Vicki Amato, RN Registered Nurse 04/10/24 Trinh Bullock APRN [address] [facility] [place] [address] Nurse Practitioner Nurse Practitioner-Family 04/10/24 Seilna Olsen APRN [address] [facility] [place] [address] Nurse Practitioner 04/10/24 Veda Mcfarland, Clerical Staff 05/14/24 documented as of this encounter
--- OUTSIDE RECORDS SUMMARY | 2024-08-15 13:53 | XMS_ITS | Encounter Summary ---
Author Organization [place] [address] Care Team Providers Care Personal Development Coach Name Role Phone Swapnil Lopez MD Unavailable [phone] Damaso Black MD Primary Care Provider [phone] Encounter Details Date Type Department Care Team (Late st Contact Info) Description 11/13/2023 Orders Only [facility] [place] [place] [address] Sandy Mascorro, Clerical Staff Malignant neoplasm of left breast in female, estrogen receptor positive, unspecified site of breast (HCC) (Primary Dx) Social History Tobacco Use [...] [facility] [address] [place] [address] Swapnil Lopez MD [address] [place] [address] 10/21/2024 2:00 PM EST Appointment [facility] MRI [address] [place] [address] Jacky Shirley MD [address] [place] [id number] 10/23/2024 1:45 PM EST Appointment [facility] [place] [address] Olena Darby APRN [address] [place] [address] documented as of this encounter Goals [...] Procedure Name Priority Date/Time Associated Diagnosis Comments PATHOLOGY TISSUE ADD-ON ORDER Routine 11/13/2023 1:22 PM EST Malignant neoplasm of left breast in female, estrogen receptor positive, unspecified site of breast (HCC) documented in this encounter Results * PATHOLOGY TISSUE ADD-ON ORDER (11/13/2023 1:22 PM EST) Tissue 11/13/2023 1:22 PM EST 11/13/2023 1:22 PM EST us Ian Ruiz MD PATHOLOGY ORDERABLES Final Result Performing Organization Address City/State/[facility] Co de Phone Number [address] [address] documented in this encounter Visit Diagnoses Diagnosis Malignant neoplasm of left breast in female, estrogen receptor positive, unspecified site of breast (HCC)- Primary documented in this encounter Care Teams Personal Development Coach Relationship Specialty Start Date End Date Damaso Black MD [address] [address] PCP - General Family Medicine 11/22/22 Swapnil Lopez MD [address] [place] [phone] Internal Medicine-Gastroenterology 02/16/22 documented as of this encounter
--- OUTSIDE RECORDS SUMMARY | 2024-08-15 13:53 | XMS_ITS | Encounter Summary ---
Author Organization [place] [address] Care Team Providers Care Systems Development Manager Name Role Phone Swapnil Lopez MD Unavailable [phone] Damaso Black MD Primary Care Provider [phone] Reason for Referral * Consultation (Emergency) - Authorization Not Needed Specialty Diagnoses / Procedures Referred By Contac t Referred To Contact Gastroenterology Diagnoses Rectal fistula Darío Rubio MD [address] [place] [address] [place] [address] Phone: tel: fax: [place] [address] [place] [address] Phone: tel: fax: Referral ID Status Reason Start Date Expiration Date Visits Requested Visits Authorized [id number] Authorization Not Needed 11/24/2023 11/23/2024 1 1 Question Answer Is this referral for colon cancer screening? No Provider Options First Available Comments rectal cutaneous fistula, hx of chron's Need first available * Consultation (Emergency) - Pending Review Specialty Diagnoses / Procedures Referred By Contac t Referred To Contact Diagnoses Rectal fistula Darío Rubio MD [address] [place] [address] [place] [address] Phone: tel: fax: Martin Ybarra (MD Lisa [address] [facility] [address] [place] [address] Phone: tel: fax: Referral ID Status Reason Start Date Expiration Date V isits Requested Visits Authorized [id number] Pending Review 11/24/2023 11/23/2024 1 1 Comments rectal cutaneous fistula, hx of chron's Need first available Reason for Visit * Reason Onset Date Comments Schedule Appointment 11/24/2023 Schedule wi th Ramiro next week Encounter Details Date Type Department Care Team (Late st Contact Info) Description 11/24/2023 Telephone [facility] [place] [address] Daroí Rubio MD [address] [place] [address] Schedule Appointment (Schedule with Ramiro next week ) Social History Tobacco Use Types Packs/Day [...] Telephone Encounter - Aislinn Viera RN - 11/24/2023 3:55 PM EST Lab appointment and orders placed and scheduled for 11/27 appointment. * Telephone Encounter - Nikky Virgen Clerical Staff - 11/24/2023 2:21 PM EST Called [facility] and spoke to Angelic. She stated that she will reach out and schedule the pt. I gave her the number to [facility]. * Telephone Encounter - Nikky Virgen Clerical Staff - 11/24/2023 2:20 PM EST In Basket message sent to Colorectal surgery asking them to call pt to schedule appt. * Telephone Encounter - Nikky Virgen Clerical Staff - 11/24/2023 2:08 PM Michelle Rubio Called [facility] and was transferred to [facility] advising them to call [phone] to schedule an appt for the pt. * Telephone Encounter - Aislinn Viera RN - 11/24/2023 1:00 PM EST Received message from Dr. Rubio regarding next steps for patient. Placed STAT referrals to GI and colorectal surgery. Will get patient in next week with Dr. Rubio to discuss results and plan. Will call [facility] to see if patient is still located there or not. Routing high priority to med onc scheduling to assist. documented in this encounter Plan of Treatment Upcoming Encounters Date Type Department Care Team (Late st Contact Info) Description 09/11/2024 1:45 PM EST Office Visit [facility] [address] [facility] [address] Swapnil Lopez MD [address] [place] [address] 10/21/2024 2:00 PM EST Appointment [facility] MRI [address] [facility] [place] [address] Jacky Shirley MD [address] [place] [address] [place], [place] [phone] 10/23/2024 1:45 PM EST Appointment [facility] [place] [address] Olena Darby APRN [address] [place] [address] [place], [place] [phone] Scheduled Referrals Name Type Priority Associated Diagnoses Order Schedule AMB REFERRAL TO COLORECTAL SURGERY Outpatient Referral STAT Rectal fistula Ordered: 11/24/2023 AMB REFERRAL TO GASTROENTEROLOGY Outpatient Referral STAT Rectal fistula Ordered: 11/24/2023 documented as of this encounter Goals Goal [...] 136 - 145 mmol/L 12/11/2023 3:00 PM [facility] Potassium 4.0 3.5 - 5.0 mmol/L 12/11/2023 3:00 PM T [facility] Chloride 105 98 - 107 mmol/L 12/11/2023 3:00 PM T [facility] Total CO2 26 22 - 29 mmol/L 12/11/2023 3:00 PM [facility] Anion Gap 11 7 - 16 mmol/L 12/11/2023 3:00 PM [facility] Calcium 9.7 8.8 - 10.4 mg/dL 12/11/2023 3:00 PM [facility] Glucose Lvl 103(H) 70 - 99 mg/dL 12/11/2023 3:00 PM [facility] BUN 13 8 - 23 mg/dL 12/11/2023 3:00 PM [facility] Creatinine 0.65 0.51 - 1.30 mg/dL 12/11/2023 3:00 PM [facility] Albumin 4.5 3.2 - 4.6 gm/dL 12/11/2023 3:00 PM [facility] Total Protein 7.5 6.4 - 8.3 gm/dL 12/11/2023 3:00 PM [facility] Bili Total 0.4 0.2 - 1.3 mg/dL 12/11/2023 3:00 PM [facility] ALT <5 <=41 U/L 12/11/2023 3:00 PM [facility] AST 13 <=40 U/L 12/11/2023 3:00 PM [facility] Alk Phos 95 36 - 123 U/L 12/11/2023 3:00 PM [facility] eGFR (CKD-EPIcr 2020) 99 >=60 mL/min/1.7 3 m2 12/11/2023 3:00 PM T [facility] Comment:Estimated GFR was ca lculated using the CKD-EPIcr (2020) equation refit without race. The equation is recommended by the National Kid[employer] - [place] [employer] of Neph[employer] Task Force. Blood VENOUS BLOOD / Unknown Venipuncture / Unknown 12/11/2023 2:32 PM EDT 12/11/2023 2:32 PM EDT us Darío Rubio MD CHEMISTRY ORDERABLES Final Res ult [facility] [address] [place] [id number] * CBC WITH DIFF (12/11/2023 2:32 PM EDT) WBC 6.0 3.7 - 10.3 x10(3)/mcL 12/11/2023 2:53 PM EDT [facility] RBC 4.50 3.90 - 5.20 x10(6)/mcL 12/11/2023 2:53 PM EDT [facility] Hgb 13.3 11.2 - 15.7 g/dL 12/11/2023 2:53 PM EDT [facility] Hct 38.8 34.0 - 45.0 % 12/11/2023 2:53 PM EDT [facility] MCV 86.2 80.0 - 100.0 fL 12/11/2023 2:53 PM EDT [facility] MCH 29.6 26.0 - 34.0 pg 12/11/2023 2:53 PM EDT [facility] MCHC 34.3 30.7 - 35.5 g/dL 12/11/2023 2:53 PM EDT [facility] RDW 12.6 <=14.9 % 12/11/2023 2:53 PM EDT [facility] Platelet 235 155 - 369 x10(3)/mcL 12/11/2023 2:53 PM EDT [facility] MPV 9.3 8.8 - 12.5 fL 12/11/2023 2:53 PM EDT [facility] Neut # Prelim 3.6 1.6 - 6.1 x10(3)/mcL 12/11/2023 2:53 PM EDT [facility] Comment:Preliminary automate d absolute neutrophil count. Value may change if manual differential is indicated. Neut Percent 59.8 % 12/11/2023 2:53 PM EDT [facility] Comment:Neutrophils equals s egs plus bands Imm Gran% 0.2 % 12/11/2023 2:53 PM EDT [facility] Comment:Automated count of m etamyelocytes, myelocytes and promyelocytes. Lymph Percent 29.1 % 12/11/2023 2:53 PM EDT [facility] [place] Percent 9.5 % 12/11/2023 2:53 PM EDT [facility] Eos Percent 1.2 % 12/11/2023 2:53 PM EDT [facility] Baso Percent 0.2 % 12/11/2023 2:53 PM EDT [facility] Neut # 3.6 1.6 - 6.1 x10(3)/[facility] 12/11/2023 2:53 PM EDT [facility] Comment:Neutrophils equals s egs plus bands IMMGRAN# 0.0 0.0 - 0.1 x10(3)/[facility] 12/11/2023 2:53 PM EDT [facility] Comment:Automated count of m etamyelocytes, myelocytes and promyelocytes. An absolute IG <0.1 is reported as 0.0. Lymph # 1.8 1.2 - 3.9 x10(3)/[facility] 12/11/2023 2:53 PM EDT [facility] [place] # 0.6 0.3 - 0.9 x10(3)/[facility] 12/11/2023 2:53 PM EDT [facility] Eos# 0.1 0.0 - 0.5 x10(3)/[facility] 12/11/2023 2:53 PM EDT [facility] Baso # 0.0 0.0 - 0.1 x10(3)/[facility] 12/11/2023 2:53 PM EDT [facility] Blood VENOUS BLOOD / Unknown Venipuncture / Unknown 12/11/2023 2:32 PM EDT 12/11/2023 2:32 PM EDT us Darío Rubio MD HEMATOLOGY ORDERABLES Final Re sult [address] [address] documented in this encounter Visit Diagnoses Diagnosis 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
--- OUTSIDE RECORDS SUMMARY | 2024-08-15 13:53 | XMS_ITS | Encounter Summary ---
Author Organization [place] [address] Care Team Providers Care Manager Enterprise Name Role Phone Swapnil Lopez MD Unavailable [phone] Damaso Black MD Primary Care Provider [phone] Reason for Referral * Mammography (Routine) - Closed Specialty Diagnoses / Procedures Referred By Lata deal Referred To Contact Radiology Diagnoses Mass of left breast, unspecified quadrant Procedures MM US BREAST BIOPSY ADDITIONAL LEFT Slava White ARNP [address] [place] [address] Phone: tel: [facility] [place] [address] Phone: tel: fax: Referral ID Status Reason Start Date Expiration Date Visits Re quested Visits Authorized [id number] Closed 10/13/2023 10/13/2025 1 1 Reason for Visit * Mammography (Routine) - Closed Specialty Diagnoses / Procedures Referred By Lata deal Referred To Contact Radiology Diagnoses Mass of left breast, unspecified quadrant Procedures MM US BREAST BIOPSY ADDITIONAL LEFT Slava White ARNP [address] [place] [address] Phone: tel: [facility] [place] [id number] Phone: tel: fax: Referral ID Status Reason Start Date Expiration Date Visits Re quested Visits Authorized [id number] Closed 10/13/2023 10/13/2025 1 1 Encounter Details Date Type Department Care Team (Latest Contact Info) Description 10/26/2023 8:53 AM EST - 10/26/2023 11:59 PM [facility] Hospital Encounter [facility] [address] [facility] [place] [address] Slava White, CADY [address] [place] [id number] Mass of left breast, unspecified quadrant Discharge [...] PM EST Office Visit [facility] [address] [place] [facility] [place] [address] Swapnil Lopez MD [address] [place] [id number] 10/21/2024 2:00 PM EST Appointment [facility] MRI [address] [place] [address] Jacky Shriley MD [address] [place] [address] [place], [place] [id number] 10/23/2024 1:45 PM EST Appointment [facility] [place] [address] Olena Darby APRN [address] [place] [address] [place], [place] [id number] documented as of this encounter Goals Goal Patient Goal Type Associated Problems Recent Progress Patient-Stated? Author Maintain a healthy diet, exercise regularly and maintain an ideal body weight General No Linda Walden RMA documented as of this encounter Procedures Procedure Name Priority Date/Time Associated Diagnosis Comments MM US BREAST BIOPSY ADDITIONAL LEFT Routine 10/26/2023 10:03 AM EST Mass of left breast, unspecified quadrant documented in this encounter Results * MM US BREAST BIOPSY ADDITIONAL LEFT (10/26/2023 10:03 AM EST) Anatomical Region Laterality Modality Breast Left Mammography 10/27/2023 7:33 AM EST Addenda Addendum by Denice James MD on 11/10/2023 12:53 PM EST November 10, 2023: Cancer staging added 11/10/23 mmd Denice James MD Impressions 10/27/2023 7:33 AM EST ~ RECOMMENDATION: Surgical evaluation. Narrative 10/27/2023 7:33 AM EST MM US BREAST BIOPSY ADDITIONAL LEFT Technologist: RT Clarissa ~ Prior study comparison: Compared with prior studies, the most recent being 10/26/23. INDICATION- N63.20-Unspecified lump in the left breast, unspecified [id number] ~ Under ultrasound guidance with sterile technique and local anesthesia, a total of 2 biopsies of the lesion in question in the left axilla were completed using a 12-gauge Ruslan-Cut needle. An addendum report will be made when the pathology report is available. A metal clip was left in place. Guided images were permanently archived. 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 ADDENDUM: ~ Procedure Note Denice James MD - 11/10/2023 MM US BREAST BIOPSY ADDITIONAL LEFT Technologist: RT Clraissa ~ Prior study comparison: Compared with prior studies, the most recentbeing 10/26/23. INDICATION- N63.20-Unspecified lump in the left breast, unspecified [id number] ~ Under ultrasound guidance with sterile technique and local anesthesia, a total of 2 biopsies of the lesion in question in the left axilla were completed using a 12-gauge Ruslan-Cut needle. An addendum report will bemade when the pathology report is available. A metal clip was left in place. Guided images were permanently archived. 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 ADDENDUM: ~ IMPRESSION: ~ RECOMMENDATION: Surgical evaluation. [facility] MAMMOGRAPHY ORDERABLES Edited Result - Final documented in this encounter Visit Diagnoses Diagnosis Mass of left breast, unspecified quadrant documented in this encounter Care Teams Manager Enterprise Relationship Specialty Start Date End Date Damaso Black MD [address] [facility] [address] [place] [address] PCP - General Family Medicine 11/22/22 Swapnil Lopez MD [address] [place] [phone] Internal Medicine-Gastroenterology 02/16/22 documented as of this encounter
--- OUTSIDE RECORDS SUMMARY | 2024-08-15 13:53 | XMS_ITS | Encounter Summary ---
Author Organization [place] [address] Care Team Providers Care Superintendent Recreation Name Role Phone Swapnil Lopez MD Unavailable [phone] Damaso Black MD Primary Care Provider [phone] Reason for Referral * MRI/CAT Scan (Routine) - Pending Review Specialty Diagnoses / Procedures Referred By Contac t Referred To Contact Radiology Diagnoses Invasive ductal carcinoma of breast, left (HCC) Procedures PET CT SKULL BASE TO MID THIGH Ian Ruiz MD [address] [place] [address] [place] [address] Phone: tel: fax: Referral ID Status Reason Start Date Expiration Date V isits Requested Visits Authorized [id number] Pending Review 11/13/2023 11/12/2024 5 5 Reason for Visit * MRI/CAT Scan (Routine) - Pending Review Specialty Diagnoses / Procedures Referred By Contac t Referred To Contact Radiology Diagnoses Invasive ductal carcinoma of breast, left (HCC) Procedures PET CT SKULL BASE TO MID THIGH Ian Ruiz MD [address] [place] [address] [place] [address] Phone: tel: fax: Referral ID Status Reason Start Date Expiration Date V isits Requested Visits Authorized [id number] Pending Review 11/13/2023 11/12/2024 5 5 Encounter Details Date Type Department Care Team (Latest Contact Info) Description 11/23/2023 12:55 PM EST - 11/23/2023 11:59 PM [facility] Hospital Encounter [facility] CT [address] [place] [address] Ian Ruiz MD [address] [address] [place] [address] Pre-procedural laboratory examination (Primary Dx); Invasive ductal carcinoma of breast, left (HCC) [...] PM EST Office Visit [facility] [address] [place] [address] Sawpnil Lopez MD [address] [place] [phone] 10/21/2024 2:00 PM EST Appointment [facility] MRI [address] [place] [address] Jacky Shirley MD [address] [place] [address] [facility] [place], [place] [id number] 10/23/2024 1:45 PM EST Appointment [facility] [address] [place], [place] [id number] Olena Darby APRN [address] [place] [address] [place], [place] [id number] documented as of this encounter Goals Goal [...] Procedure Name Priority Date/Time Associated Diagnosis Comments PET CT SKULL BASE TO MID THIGH Routine 11/23/2023 3:03 PM EST Invasive ductal carcinoma of breast, left (HCC) documented in this encounter Results * PET CT SKULL BASE TO MID THIGH (11/23/2023 3:03 PM EST) Anatomical Region Laterality Modality Positron Emissio n Tomography (PET) 11/23/2023 3:03 PM EST Impressions 11/23/2023 3:55 PM EST Left breast malignancy or new demonstrates mild [...] office of the ordering clinician. Narrative 11/23/2023 3:[address] SKULL BASE TO MID THIGH, ??11/23/2023 3:03 PM CLINICAL HISTORY: ??C50.912-Malignant neoplasm of unspecified site of left female breast (HCC)-ICD-10-CM. COMPARISON: ??None. PROCEDURE COMMENTS: 11 mCi 18F-fluorodeoxyglucose (FDG) was administered I.V. Serum blood glucose at the time of the injection was 92 mg/dL. Uptake time was approximately 45 minutes. Scanning performed from the skull vertex to the mid thigh. ??As an integrated part of the study, noncontrast CT scanning performed for attenuation correction and localization purposes.Dose 1 : CT DLP Total : 211.7 mGycm DLP Spiral Max : 203.61 mGycm Maximum CTDI Vol : 2.09 mGy FINDINGS: Normal distribution of physiologic background activity was present including gastrointestinal, genitourinary, cardiovascular, neurologic systems. Index activity in the right lobe of the liver was 5.15 SUV max. Head and Neck: ??No hypermetabolic foci. Chest: ??Left breast mass demonstrates a mild the trace activity with a maximum SUV 3.63. Multiple left axillary adenopathy with the hypermetabolic activity. Largest at the level 1 left axillary mass measuring about 2.8 cm with a maximum SUV 6.98. Multiple level 2 lymph nodes with the largest one measuring about 2.3 cm and maximum SUV 8.51. Small level 3 lymph node measuring 1.1 cm with a maximum SUV 5.79. No intrathoracic hypermetabolic lesion. 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 Maximum SUV 7.55. 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 However, recommend evaluation with the diagnostic CT with the IV contrast possibly with the intraluminal rectal contrast as well. High density in the bladder on CT likely to be due to the contrast the from MRI of the brain performed just prior to this PET/CT. Gallstones. Musculoskeletal: ??No hypermetabolic foci. Procedure Note Grace Anaya MD - 11/23/[address] SKULL BASE TO MID THIGH, 11/23/2023 3:03 PM CLINICAL HISTORY: C50.912-Malignant neoplasm of unspecified site of leftfemale breast (HCC)-ICD-10-CM. COMPARISON: None. PROCEDURE COMMENTS: 11 mCi 18F-fluorodeoxyglucose (FDG) was administeredI.V. Serum blood glucose at the time of the injection was 92 mg/dL. Uptake timewas approximately 45 minutes. Scanning performed from the skull vertex to themid thigh. As an integrated part of the study, noncontrast CT scanningperformed for attenuation correction and localization purposes.Dose 1 : CT DLP Total : 211.7 mGycm DLP Spiral Max : 203.61 mGycm Maximum CTDI Vol : 2.09 mGy FINDINGS: Normal distribution of physiologic background activity waspresent including gastrointestinal, genitourinary, cardiovascular, neurologicsystems. Index activity in the right lobe of the liver was 5.15 SUV max. Head and Neck: No hypermetabolic foci. Chest: Left breast mass demonstrates a mild the trace activity with amaximum SUV 3.63. Multiple left axillary adenopathy with the hypermetabolic activity.Largest at the level 1 left axillary mass measuring about 2.8 cm with a maximum SUV6.98. Multiple level 2 lymph nodes with the largest one measuring about 2.3 cmand maximum SUV 8.51. Small level 3 lymph node measuring 1.1 cm with a maximumSUV 5.79. No intrathoracic hypermetabolic lesion. Abdomen and pelvis: In the region of rectal cutaneous fistulademonstrated on April 02, 2015 CT at the left posterior pelvis, there is soft tissue densitywith the focal increased trace activity. Maximum SUV 7.55. It may be due tothe persistent rectocutaneous fistula. However, recommend evaluation withthe diagnostic CT with the IV contrast possibly with the intraluminal rectal contrast as well. High density in the bladder on CT likely to be due to the contrast thefrom MRI of the brain performed just prior to this PET/CT. Gallstones. Musculoskeletal: No hypermetabolic foci. IMPRESSION: Left breast malignancy or new demonstrates mild trace activity with a maximum SUV 3.63. Multiple left axillary adenopathy with the hypermetabolic activityinvolving level 1, 2 and 3. Highest maximum SUV 8.51. Consistent with themetastatic disease. Hypermetabolic activity at the site of rectal cutaneous fistulademonstrated on April 02, 2015 CT with a maximum SUV 7.55. This could be due to persistentrectal cutaneous fistula. However, malignancy including squamous cell carcinomacan developed in the area of a chronic fistula. Recommend correlation withthe physical exam as well as the further evaluation with a CT with the IV andoral as well as possibly rectal contrast. - Note: Radiology results need to be interpreted within a comprehensiveclinical context. If you have questions about the radiology report, please contactthe office of the ordering clinician. us Ian Ruiz MD IMG PET ORDERABLES Final Re sult documented in this encounter Visit Diagnoses Diagnosis Pre-procedural laboratory examination- Primary Invasive ductal carcinoma of breast, left (HCC) documented in this encounter Administered Medications Inactive Administered Medications - up to 1 most recent administrations Medication Order MAR Action Action Date Dose Rate Site fluorodeoxyglucose (FDG) injection 11 millicurie 11 millicurie, Intravenous, ONCE PRN, 1 dose, Starting on Ashlie 11/23/23 at 1329, Until Ashlie 11/23/23 at 1329, Radiography/Imaging, Radiology Procedure, Administration dose must be within 10% of the ordered dose for radiopharmaceutical medications., Radiology Given 11/23/2023 1:29 PM EST 11 millicuries Right Arm documented in this encounter Orders Medications Ordered That Paul ht Not Have Been Administered Count Last Ordered Date First Ordered Date fluorodeoxyglucose (FDG) inj ection 11 millicurie 1 11/23/2023 documented in this encounter Care Teams Superintendent Recreation Relationship Specialty Start Date End Date Damaso Black MD [address] [facility] [address] [place] [address] PCP - General Family Medicine 11/22/22 Swapnil Lopez MD [address] [place] [address] Internal Medicine-Gastroenterology 02/16/22 documented as of this encounter
--- OUTSIDE RECORDS SUMMARY | 2024-08-15 13:53 | XMS_ITS | Encounter Summary ---
Author Organization [place] [address] Care Team Providers Care Appliance Assembler Name Role Phone Swapnil Lopez MD Unavailable [phone] Damaso Black MD Primary Care Provider [phone] Reason for Referral * Mammography (Routine) - Pending Review Specialty Diagnoses / Procedures Referred By Contac t Referred To Contact Radiology Diagnoses Mass of left breast, unspecified quadrant Procedures MM POST PROCEDURE FILM DIGITAL LEFT Slava White ARNP [address] [place] [address] Phone: tel: Referral ID Status Reason Start Date Expiration Date V isits Requested Visits Authorized [id number] Pending Review 10/26/2023 10/26/2025 1 1 Reason for Visit * Mammography (Routine) - Pending Review Specialty Diagnoses / Procedures Referred By Contac t Referred To Contact Radiology Diagnoses Mass of left breast, unspecified quadrant Procedures MM POST PROCEDURE FILM DIGITAL LEFT Slava White ARNP [address] [place] [address] Phone: tel: Referral ID Status Reason Start Date Expiration Date V isits Requested Visits Authorized [id number] Pending Review 10/26/2023 10/26/2025 1 1 Encounter Details Date Type Department Care Team (Latest Contact Info) Description 10/26/2023 8:53 AM EST - 10/26/2023 11:59 PM [facility] Hospital Encounter [facility] [address] [place], [place] [address] Slava White, [facility] [address] [facility] [address] Mass of left breast, unspecified quadrant [...] PM EST Office Visit [facility] [address] [place] [facility] [place] [address] Swapnil Lopez MD [address] [place] [address] 10/21/2024 2:00 PM EST Appointment [facility] MRI [address] [facility] [place] [address] Jacky Shirley MD [address] [place] [address] [place], [place] [id number] 10/23/2024 1:45 PM EST Appointment [facility] RAD ONC [address] [place], [place] [phone] Olena Darby APRN [address] [place] [id number] documented as of this encounter Goals Goal Patient Goal Type Associated Problems Recent Progress Patient-Stated? Author Maintain a healthy diet, exercise regularly and maintain an ideal body weight General No Linda Walden, RMA documented as of this encounter Procedures Procedure Name Priority Date/Time Associated Diagnosis Comments MM POST PROCEDURE FILM DIGITAL LEFT Routine 10/26/2023 10:01 AM EST Mass of left breast, unspecified quadrant documented in this encounter Results * MM POST PROCEDURE FILM DIGITAL LEFT (10/26/2023 10:01 AM EST) Anatomical Region Laterality Modality Breast Left Mammography 10/26/2023 3:53 PM EST Narrative 10/26/2023 3:53 PM EST MM POST PROCEDURE FILM DIGITAL LEFT Technologist: Vy Doan, RT Postprocedure CC and ML views demonstrate biopsy clip along the posterior aspect of the mass near 2:00. Clip within the biopsied enlarged axillary lymph node is not visualized likely due to its posterior location. Procedure Note Denice James MD - 10/26/2023 MM POST PROCEDURE FILM DIGITAL LEFT Technologist: Vy Doan, RT Postprocedure CC and ML views demonstrate biopsy clip along theposterior aspect of the mass near 2:00. Clip within the biopsied enlarged axillary lymph node is not visualized likely due to its posterior location. [facility] IM MAMMOGRAPHY ORDERABLES Final Result documented in this encounter Visit Diagnoses Diagnosis Mass of left breast, unspecified quadrant documented in this encounter Care Teams Appliance Assembler Relationship Specialty Start Date End Date Damaso Black MD [address] [place] [address] PCP - General Family Medicine 11/22/22 Swapnil Lopez MD [address] [place] [phone] Internal Medicine-Gastroenterology 02/16/22 documented as of this encounter
--- OUTSIDE RECORDS SUMMARY | 2024-08-15 13:53 | XMS_ITS | Encounter Summary ---
Author Organization [place] [address] Care Team Providers Care Watch Crystal Grinder Name Role Phone Swapnil Lopez MD Unavailable [phone] Damaso Black MD Primary Care Provider [phone] Reason for Visit * Genetic Lab Test (Routine) - Pending Review Specialty Diagnoses / Procedures Referred By Lata deal Referred To Contact Diagnoses Genetic screening Procedures MISCELLANEOUS GENETIC TEST Radha Hernandez MD [address] [place] [address] Phone: tel: fax: Referral ID Status Reason Start Date Expiration Date V isits Requested Visits Authorized [id number] Pending Review 11/13/2023 11/12/2024 1 1 Encounter Details Date Type Department Care Team (Latest Contact Info) Description 11/13/2023 1:00 PM EST - 11/13/2023 11:59 PM EST Hospital Encounter [facility] [place] [id number] Invasive ductal carcinoma of breast, left (HCC); Genetic screening Discharge Disposition: Home or Self Care Social [...] 11:13 AM LUCÍA Gabby Mercedes RMA * Does this person [...] 09/05/2017 11:13 AM Gabby De La GarzaSHANNON documented as of this encounter Mental Status [...] PM EST Office Visit [facility] [address] [place] [address] Swapnil Lopez MD [address] [place] [address] 10/21/2024 2:00 PM EST [facility] [address] [address] Jacky Shirley MD 1 [facility] [place] [address] 10/23/2024 1:45 PM EST Appointment [facility] ONC [address] [place], [place] [id number] Olena Darby APRN 1 [facility] [place], [place] [id number] Pending Results Name Type Priority Associated Diagnoses Date /Time MISCELLANEOUS GENETIC TEST Lab Routine Genetic screening 11/13/2023 1:27 PM EST documented as of this encounter Goals Goal Patient Goal Type Associated Problems Recent Progress Patient-Stated? Author Breast [facility] Breast [facility] Mary Kate Vázquez, RN Note: Patient acknowledges understanding of new diagnosis, plan of care, available resources and how to contact Nurse Navigator with any future questions or concerns. Maintain a healthy diet, exercise regularly and maintain an ideal body weight General No Linda Walden, RMA documented as of this encounter Procedures Procedure Name Priority Date/Time Associated Diagnosis Comments CBC WITH DIFF Routine 11/13/2023 1:27 PM EST Invasive ductal carcinoma of breast, left (HCC) COMPREHENSIVE METABOLIC PANEL Routine 11/13/2023 1:27 PM EST Invasive ductal carcinoma of breast, left (HCC) documented in this encounter Results * (ABNORMAL) COMPREHENSIVE METABOLIC PANEL (11/13/2023 1:27 PM EST) Sodium 142 136 - 145 mmol/L 11/13/2023 1:48 PM EST [facility] Potassium 3.6 3.5 - 5.0 mmol/L 11/13/2023 1:48 PM EST [facility] Chloride 105 98 - 107 mmol/L 11/13/2023 1:48 PM EST [facility] Total CO2 28 22 - 29 mmol/L 11/13/2023 1:48 PM [facility] Anion Gap 9 7 - 16 mmol/L 11/13/2023 1:48 PM [facility] Calcium 10.1 8.8 - 10.4 mg/dL 11/13/2023 1:48 PM [facility] Glucose Lvl 106(H) 70 - 99 mg/dL 11/13/2023 1:48 PM [facility] BUN 11 8 - 23 mg/dL 11/13/2023 1:48 PM [facility] Creatinine 0.63 0.51 - 1.30 mg/dL 11/13/2023 1:48 PM [facility] Albumin 4.3 3.2 - 4.6 gm/dL 11/13/2023 1:48 PM [facility] Total Protein 7.2 6.4 - 8.3 gm/dL 11/13/2023 1:48 PM [facility] Bili Total 0.4 0.2 - 1.3 mg/dL 11/13/2023 1:48 PM [facility] ALT 8 <=41 U/L 11/13/2023 1:48 PM [facility] AST 14 <=40 U/L 11/13/2023 1:48 PM [facility] Alk Phos 116 36 - 123 U/L 11/13/2023 1:48 PM [facility] eGFR (CKD-EPIcr 2020) 100 >=60 mL/min/1.7 3 m2 11/13/2023 1:48 PM [facility] Comment:Estimated GFR was ca lculated using the CKD-EPIcr (2020) equation refit without race. The equation is recommended by the National Kid[employer] - [place] [employer] Neph[employer] Task Force. Blood VENOUS BLOOD / Unknown Venipuncture / Unknown 11/13/2023 1:27 PM EST 11/13/2023 1:27 PM EST us Darío Rubio MD CHEMISTRY ORDERABLES Final Res ult [facility] [address] [place] [address] * CBC WITH DIFF (11/13/2023 1:27 PM EST) [facility] WBC 5.8 3.7 - 10.3 x10(3)/mcL 11/13/2023 1:33 PM [facility] RBC 4.87 3.90 - 5.20 x10(6)/mcL 11/13/2023 1:33 PM [facility] Hgb 14.3 11.2 - 15.7 g/dL 11/13/2023 1:33 PM [facility] Hct 41.8 34.0 - 45.0 % 11/13/2023 1:33 PM [facility] MCV 85.8 80.0 - 100.0 fL 11/13/2023 1:33 PM [facility] MCH 29.4 26.0 - 34.0 pg 11/13/2023 1:33 PM [facility] MCHC 34.2 30.7 - 35.5 g/dL 11/13/2023 1:33 PM [facility] RDW 13.1 <=14.9 % 11/13/2023 1:33 PM [facility] Platelet 230 155 - 369 x10(3)/mcL 11/13/2023 1:33 PM [facility] MPV 9.2 8.8 - 12.5 fL 11/13/2023 1:33 PM [facility] Neut # Prelim 3.7 1.6 - 6.1 x10(3)/mcL 11/13/2023 1:33 PM [facility] Comment:Preliminary automate d absolute neutrophil count. Value may change if manual differential is indicated. Neut Percent 63.7 % 11/13/2023 1:33 PM [facility] Comment:Neutrophils equals s egs plus bands Imm Gran% 0.2 % 11/13/2023 1:33 PM [facility] Comment:Automated count of m etamyelocytes, myelocytes and promyelocytes. Lymph Percent 24.3 % 11/13/2023 1:33 PM [facility] [place] Percent 10.2 % 11/13/2023 1:33 PM [facility] Eos Percent 1.4 % 11/13/2023 1:33 PM EST [facility] Baso Percent 0.2 % 11/13/2023 1:33 PM EST [facility] Neut # 3.7 1.6 - 6.1 x10(3)/[facility] 11/13/2023 1:33 PM EST [facility] Comment:Neutrophils equals s egs plus bands IMMGRAN# 0.0 0.0 - 0.1 x10(3)/[facility] 11/13/2023 1:33 PM EST [facility] Comment:Automated count of m etamyelocytes, myelocytes and promyelocytes. An absolute IG <0.1 is reported as 0.0. Lymph # 1.4 1.2 - 3.9 x10(3)/[facility] 11/13/2023 1:33 PM EST [facility] [place] # 0.6 0.3 - 0.9 x10(3)/[facility] 11/13/2023 1:33 PM EST [facility] Eos# 0.1 0.0 - 0.5 x10(3)/[facility] 11/13/2023 1:33 PM EST [facility] Baso # 0.0 0.0 - 0.1 x10(3)/[facility] 11/13/2023 1:33 PM EST [facility] Blood VENOUS BLOOD / Unknown Venipuncture / Unknown 11/13/2023 1:27 PM EST 11/13/2023 1:27 PM EST us Darío Rubio MD HEMATOLOGY ORDERABLES Final Re sult [facility] [address] [place] [address] documented in this encounter Visit Diagnoses Diagnosis Invasive ductal carcinoma of breast, left (HCC) Genetic screening Other genetic screening documented in this encounter Care Teams Watch Crystal Grinder Relationship Specialty Start Date End Date Damaso Black MD [address] [facility] [address] [address] PCP - General Family Medicine 11/22/22 Swapnil Lopez MD [address] [place] [phone] Internal Medicine-Gastroenterology 02/16/22 documented as of this encounter
--- OUTSIDE RECORDS SUMMARY | 2024-08-15 13:53 | XMS_ITS | Encounter Summary ---
Author Organization [place] [address] Care Team Providers Care Field Appraiser Name Role Phone Swapnil Lopez MD Unavailable [phone] Damaso Black MD Primary Care Provider [phone] Reason for Visit * Reason Onset Date Comments Appointment Needed 10/12/2023 Needs breast biopsy scheduled Encounter Details Date Type Department Care Team (Late st Contact Info) Description 10/12/2023 Telephone [facility] [place] [phone] Laura Prater RN Appointment Needed (Needs breast biopsy scheduled) Social History Tobacco Use Types Packs/Day Years [...] encounter Miscellaneous Notes * Telephone Encounter - Ankita Lou RN - 10/13/2023 1:29 PM EST Call from Kelsey at [facility] to schedule Seamus's biopsy. Biopsy and results scheduled. * Telephone Encounter - Laura Prater RN - 10/12/2023 3:41 PM EST Pt was seen in [facility] for imaging. Breast biopsy has been recommended. She is currently incarcerated at [facility]. Called [facility] at [phone], ext [phone]. Spoke with nurse in Medical who asks if she can call back tomorrow as she is unable to schedule it today. Asked if we could please fax her results from today to them at [phone]. When someone from [facility] calls to schedule, NN to direct them to medical records. Biopsy papers on Biopsy Board. documented in this encounter Plan of Treatment Upcoming Encounters Date Type Department Care Team (Late st Contact Info) Description 09/11/2024 1:45 PM EST Office Visit [facility] [address] [place] [address] Swapnil Lopez MD [address] [place] [address] 10/21/2024 2:00 PM EST Appointment [facility] [address] [id number] Jacky Shirley MD 1 [facility] [place] [address] 10/23/2024 1:45 PM EST Appointment [facility] [place] [address] Olena Darby APRN 1 [facility] C[facility] [place], [place] [id number] documented as of this encounter Goals Goal [...] on filedocumented in this encounter Care Teams Field Appraiser Relationship Specialty Start Date End Date Damaso Black MD [address] [facility] [address] [place] [address] PCP - General Family Medicine 11/22/22 Swapnil Lopez MD [address] [place] [address] Internal Medicine-Gastroenterology 02/16/22 documented as of this encounter
--- OUTSIDE RECORDS SUMMARY | 2024-08-15 13:53 | XMS_ITS | Encounter Summary ---
Author Organization [place] [address] Care Team Providers Care Rhia Name Role Phone Swapnil Lopez MD Unavailable [phone] Damaso Black MD Primary Care Provider [phone] Reason for Referral * MRI/CAT Scan (Routine) - Pending Review Specialty Diagnoses / Procedures Referred By Contac t Referred To Contact Radiology Diagnoses Invasive ductal carcinoma of breast, left (HCC) Procedures MRI BREAST BILATERAL W WO CONTRAST W Ian Mejia MD [address] [place] [address] [address] [place] [address] Phone: tel: fax: Referral ID Status Reason Start Date Expiration Date V isits Requested Visits Authorized [id number] Pending Review 10/30/2023 10/29/2024 1 1 Reason for Visit * MRI/CAT Scan (Routine) - Pending Review Specialty Diagnoses / Procedures Referred By Contac t Referred To Contact Radiology Diagnoses Invasive ductal carcinoma of breast, left (HCC) Procedures MRI BREAST BILATERAL W WO CONTRAST W Ian Mejia MD [address] [place] [address] [place] [address] Phone: tel: fax: Referral ID Status Reason Start Date Expiration Date V isits Requested Visits Authorized [id number] Pending Review 10/30/2023 10/29/2024 1 1 Encounter Details Date Type Department Care Team (Latest Contact Info) Description 11/06/2023 11:55 AM EST - 11/06/2023 11:59 PM [facility] Encounter [facility] [address] [place] [address] Ian Ruiz MD [address] [place] [address] [place] [address] Invasive ductal carcinoma of breast, left (HCC) [...] PM EST Office Visit [facility] [address] [facility] [place] [address] Swapnil Lopez MD [address] [place] [address] 10/21/2024 2:00 PM EST Appointment [facility] MRI [address] [place] [address] Jacky Shirley MD [address] [place] [address] CANCER C[address] [place], [place] [id number] 10/23/2024 1:45 PM EST Appointment [facility] RAD [facility]C [place], [place] [phone] Olena Darby APRN [address] [place] [address] CANCER [place], [place] [id number] documented as of this encounter Goals Goal Patient Goal Type Associated Problems Recent Progress Patient-Stated? Author Maintain a healthy diet, exercise regularly and maintain an ideal body weight General No Linda Walden, RMA documented as of this encounter Procedures Procedure Name Priority Date/Time Associated Diagnosis Comments MRI BREAST BILATERAL W WO CONTRAST W CAD Routine 11/06/2023 1:00 PM EST Invasive ductal carcinoma of breast, left (HCC) documented in this encounter Results * MRI BREAST BILATERAL W WO CONTRAST W CAD (11/06/2023 1:00 PM EST) Anatomical Region Laterality Modality Breast Bilateral Magnetic Resonan ce 11/06/2023 3:39 PM EST Impressions 11/06/2023 3:39 PM EST Known biopsy proven malignancy (ACR-Cateogry 6) 3.4 x 2.3 x 2.8 cm enhancing mass anterior left breast 1:00-2:00 corresponds to the index lesion previously biopsied. Multiple enlarged axillary, axillary tail, and subpectoral lymph nodes. ~ Right Breast: No MRI evidence of disease in the right breast. ~ RECOMMENDATION: Surgical evaluation. Narrative 11/06/2023 3:39 PM EST Procedure:MRI BREAST BILATERAL W WO CONTRAST W CAD ~ C50.912-Malignant neoplasm of unspecified site of left female breast (HCC)-ICD-10-CM, ~ A) Left breast mass at 2 o'clock, needle biopsy: - Invasive ductal carcinoma, histologic grade 2 (3+2+2). 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 - The invasive tumor measures 10 mm in adri linear length. ? ? ? B) Left axilla abnormal lymph node, needle biopsy: - Metastatic ductal carcinoma. - The tumor measures 7 mm in adri linear length. ~ ER by IHC ?Positive ?96% ? ? ?/ ? ? ?3+ / 8 ? PgR by IHC ?Positive ?73% ? ? ?/ ? ? ?3+ / 8 ? HER2 by IHC ?Equivocal/Low ?2+ ? HER-2 by FISH ?Pending ~ MRI BREAST BILATERAL W WO CONTRAST W CAD ~ Prior study comparison: Compared with prior studies, the most recent being 10/12/24, 10/26/23. ~ TECHNICAL FACTORS: Routine imaging was done with a dedicated breast coil and a 1.5T magnet system. ??Imaging was done prior to and following 13 mL of Dotarem IV. A CAD work station was also used to aid in interpretation. Breasts are heterogeneously dense. ~ Mild background enhancement. ~ Right Breast: No suspicious enhancing mass or nonmasslike enhancement. ~ Left Breast: 3.4 x 2.3 x 2.8 cm spiculated enhancing mass left breast 1:00-2:00. Bulky left axilla and axillary tail adenopathy with multiple lymph nodes that are enlarged. These measure up to 2.0 cm in greatest thickness. Left subpectoral lymph node which measures up to 1.0 cm in short axis. ~ Procedure Note Denice James MD - 11/06/2023 Procedure:MRI BREAST BILATERAL W WO CONTRAST W CAD ~ C50.912-Malignant neoplasm of unspecified site of left female breast (HCC)-ICD-10-CM, ~ A) Left breast mass at 2 o'clock, needle biopsy: - Invasive ductal carcinoma, histologic grade 2 (3+2+2). 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 - The invasive tumor measures 10 mm in adri linear length. ? ? ? B) Left axilla abnormal lymph node, needle biopsy: - Metastatic ductal carcinoma. - The tumor measures 7 mm in adri linear length. ~ ER by IHC ?Positive ?96% ? ? ?/? ? ?3+ / 8 ? PgR by IHC ?Positive ?73% ? ? ?/ ? ? ?3+/ 8 ? HER2 by IHC ?Equivocal/Low ?2+ ? HER-2 by FISH ?Pending ~ MRI BREAST BILATERAL W WO CONTRAST W CAD ~ Prior study comparison: Compared with prior studies, the most recentbeing 10/12/24, 10/26/23. ~ TECHNICAL FACTORS: Routine imaging was done with a dedicated breast coil and a 1.5T magnet system. Imaging was done prior to and following 13 mLof Dotarem IV. A CAD work station was also used to aid in interpretation. Breasts are heterogeneously dense. ~ Mild background enhancement. ~ Right Breast: No suspicious enhancing mass or nonmasslike enhancement. ~ Left Breast: 3.4 x 2.3 x 2.8 cm spiculated enhancing mass left breast 1:00-2:00. Bulky left axilla and axillary tail adenopathy with multiple lymph nodes that are enlarged. These measure up to 2.0 cm in greatest thickness. Left subpectoral lymph node which measures up to 1.0 cm inshort axis. ~ IMPRESSION: Known biopsy proven malignancy (ACR-Cateogry 6) 3.4 x 2.3 x 2.8 cm enhancing mass anterior left breast 1:00-2:00 corresponds to the index lesion previously biopsied. Multiple enlarged axillary, axillary tail, and subpectoral lymph nodes. ~ Right Breast: No MRI evidence of disease in the right breast. ~ RECOMMENDATION: Surgical evaluation. Ian Ruiz MD IMG MRI BREAST ORDERABLES F inal Result documented in this encounter Visit Diagnoses Diagnosis Invasive ductal carcinoma of breast, left (HCC) documented in this encounter Administered Medications Inactive Administered Medications - up to 1 most recent administrations Medication Order MAR Action Action Date Dose Rate Site gadoterate meglumine (DOTAREM) solution 13 mL 13 mL, Intravenous, ONCE PRN, 1 dose, Starting on Mon11/06/23 at 1209, Until Mon11/06/23 at 1300, Radiology Procedure, VESICANT , MRI (Contrasts) Given 11/06/2023 1:00 PM EST 13 mL Right Arm sodium chloride 0.9% syringe 50 mL 50 mL, Intravenous, ONCE PRN, 1 dose, Starting on Mon11/06/23 at 1208, Until Mon11/06/23 at 1300, Line Care, Flush peripheral lines every 12 hours, central lines every 8 hours, and after IV medication, MRI (Contrasts) Given 11/06/2023 1:00 PM EST 50 mL Right Arm sodium chloride 0.9% syringe Intravenous, ONCE PRN, 1 dose, Starting on Mon11/06/23 at 1209, Until Mon11/06/23 at 1300, Line Care, Flush peripheral lines every 12 hours, central lines every 8 hours, and after IV medication, MRI (Contrasts) Given 11/06/2023 1:00 PM EST 10 mL Right Arm documented in this encounter Care Teams Rhia Relationship Specialty Start Date End Date Damaso Black MD [address] [place] [address] PCP - General Family Medicine 11/22/22 Swapnil Lopez MD [address] [place] [phone] Internal Medicine-Gastroenterology 02/16/22 documented as of this encounter
--- OUTSIDE RECORDS SUMMARY | 2024-08-15 13:53 | XMS_ITS | Encounter Summary ---
Author Organization [place] [address] Care Team Providers Care Park Manager Name Role Phone Swapnil Lopez MD Unavailable [phone] Damaso Black MD Primary Care Provider [phone] Reason for Referral * Genetic Lab Test (Routine) - Pending Review Specialty Diagnoses / Procedures Referred By Lata deal Referred To Contact Diagnoses Genetic screening Procedures MISCELLANEOUS GENETIC TEST Radha Hernandez MD [address] [place] [address] Phone: tel: fax: Referral ID Status Reason Start Date Expiration Date V isits Requested Visits Authorized [id number] Pending Review 11/13/2023 11/12/2024 1 1 Encounter Details Date Type Department Care Team (Latest Contact Info) Description 11/13/2023 12:00 PM EST - 11/13/2023 12:59 PM EST Hospital Encounter [facility] [address] [id number] Chace Ruiz CGC [address] [id number] Genetic screening (Primary Dx) Discharge Disposition: Home or Self [...] documented in this encounter Progress Notes * Chace Ruiz CGC - 11/13/2023 12:00 PM ESTSummary: Negative hereditary cancer genetic testing Images from the original note were not included. HEREDITARY CANCER GENETIC COUNSELING CONSULTATION Name: Marleni RODRIGUES: [id number] : 1960 Consultation date: 11/13/2023 Referring provider: Ian Ruiz MD Attending: Radha Young MD Genetic Counseling: Chace Ruiz CGC, MS Visit summary: Ms. Sy was referred to genetic counseling to discuss her personal history of cancer. A sample was collected for the [employer] BRCAPlus Panel (8 genes) concurrent with the [employer] Hereditary Cancer Panel (67 genes) with RNA analysis. Results: Negative. Personal history: Ms. Sy is a 63 y.o. female recently diagnosed with ER/IN+, HER2- invasive ductal carcinoma (IDC) of the left breast with metastatic disease to the lymph node. Ms. Sy has a reported history of stomach and colon problems related to severe Crohn's diseasetreated with many surgeries. Patient reports abdominal cancer history treated with surgical removal. 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 Sy has a limited family structure, with few maternal and paternal relatives. Genetic counseling: We reviewed that hereditary cancer genetic testing analyzes specific genes for harmful genetic mutations, also referred to as ???pathogenic variants,?? that would increase cancer risk. Most cancers are the result of ???sporadic?? harmful (pathogenic) changes in genetic instructions due to chance, aging, environment, and lifestyle. A small proportion of cancers occur in individualswith an inherited pathogenic variant in a cancer susceptibility gene. Features of inherited cancer syndromes may include: younger ages at diagnosis, multiple relatives with the same type of cancer orspecific cluster of cancers, and certain diagnoses such as ovarian or pancreatic cancer. We discussed possible test results including positive, negative, and uncertain. *It was mentioned to Ms. Sy that the standard panel ordered is an expanded panel through [employer] (67 genes), but that smaller panels are available. Ms. Sy opted to proceed with the 67 gene panel. We discussed that Ms. Sy is reapplying for Medicaid. She was accompanied by an officer that explained that if there is a cost to testing, it would be covered through the [facility] insurance. Testing ordered: A blood sample was collected for the Hereditary Breast and Ovarian Cancer Panel BRCA1/2 (2 genes) with reflex to an expanded list of genes included in the [facility] BRCAPlus Panel (8 genes) concurrent with the [facility] Hereditary Cancer Panel (67 genes) with RNA analysis. Results are typically available for the genetic counselor to review in 2-4 weeks. Once the result has been reviewed, Ms. Sy will be contacted by phone to discuss the result and further recommendations will be made at that time.A copy of the result will be uploaded to the [employer] Media Tab and a detailed result clinic note will be provided. Results: The results of the [facility] Hereditary Cancer Panel (67 genes) are negative, indicating no known clinically actionable pathogenic variants (mutations) were detected. These results were discussed with Ms. Sy's son, Eloy (DARRYL), on 12/13/2023. A copy of this result is available for review under the media tab in [employer]. Since she does not have a mutation in a cancer predisposition gene included onthis panel, her children could not have inherited a mutation from her in one of these genes. Even though a pathogenic variant was not identified, possible explanations for the cancer in the family may include: The history of cancer may be due to factors that aren???t inherited Ms. Sy could have a variant in a gene that has not yet been linked to cancer, or cannot be detected with current testing methods There may be a genetic explanation for the cancer occurring in the family, which Ms. Sy did not inherit. Follow-up: Ms. Sy and her family members are encouraged to screen for cancer based on the recommendations from their physicians as well as their family history. We appreciate having been asked to participate in the care of Ms. Sy. Please feel free to call us at [phone] with any questions or concerns. Chace Ruiz CGC, MS, [facility] Certified Genetic Counselor documented in this encounter Miscellaneous Notes * Patient Instructions - Melodie Peterson E - 11/13/2023 12:00 PM EST HEREDITARY CANCER GENETIC COUNSELING CONSULTATION You met with Chace Ruiz CGC on 11/13/2023 to discuss hereditary cancer testing. The following information was discussed: Genetic counseling: The underlying genetic basis of cancer was discussed in detail. Although most cancers are the result of mutations acquired during a person's lifetime due to chance, aging, environment, and lifestyle,a small proportion of all cancers occur in individuals with an inherited mutation in a cancer susceptibility gene. Red flags for hereditary cancer risk include: several relatives with the same canceror a specific cluster of cancers (e.g. breast and ovarian), younger ages at diagnosis, individuals with multiple primary cancers or bilateral disease, and the presence of rare cancers. Therefore, at this time, there are enough features of a hereditary cancer risk to warrant the consideration of genetic testing. We discussed the following possible results: Positive. A positive test result means that the laboratory found a genetic variant that is associated with an increased risk of developing cancer. Identifying a hereditary susceptibility could lead to medical management changes and can help determine which family members are at an increased risk ofcancer. Negative. A negative test result means that the laboratory did not identify any genetic variants associated with cancer risk. Even when the genetic testing is negative, some individuals may still benefit from increased cancer surveillance due to the family history. Uncertain. It is common for genetic testing to find a ???variant of unknown significance . This means there is a portion of the gene that looks different from the way it's expected to look, but researchers haven't yet confirmed whether this variant is a harmless change or a risk factor for cancer. Often times, there is limited or conflicting evidence regarding this variant's ability to cause disease. Therefore, this variant remains on a ???watch list?? as researchers collect information to determine whether or not people who have it are at increased cancer risk. As the vast majority of variants of uncertain significance are later determined to be benign (harmless), medical management is typically not impacted by this result. A sample was collected for: [facility] Hereditary Cancer Panel (67 genes) Follow up steps: [facility], the lab doing the genetic testing will notify you if your out of pocket expense if it is expected to exceed $100. Please respond in a timely manner to the lab, if you are contacted. If you have questions about your bill, please call [facility] directly at [phone]. Your genetic counselor will reach out to you as soon as your results are available to review. The results are typically available within 2-3 weeks. Once you have reviewed your results with your genetic counselor, you will be sent your results, along with a letter either to your Mychart or in the mail. For other questions/concerns regarding your genetic testing, please call [phone] or e-mail [email or web address] with any questions or concerns. * Addendum Note - Chace Ruiz CGC - 11/13/2023 12:00 PM ESTEncounter addended by: Chace Ruiz CGC on: 12/13/2023 12:51 PM Actions taken: Clinical Note Signed documented in this encounter Plan of Treatment Upcoming Encounters Date Type Department Care Team (Late st Contact Info) Description 09/11/2024 1:45 PM EST Office Visit [facility] [address] [place] [address] Swapnil Lopez MD [address] [place] [address] 10/21/2024 2:00 PM EST [facility] [address] [place] [address] Jacky Shirley MD [address] [place] [id number] 10/23/2024 1:45 PM EST Appointment [facility] [place] [address] Olena Darby APRN [address] [place] [address] [place], [place] [id number] Pending Results Name Type Priority Associated Diagnoses Date /Time MISCELLANEOUS GENETIC TEST Lab Routine Genetic screening 11/13/2023 1:27 PM EST Scheduled Orders Name Type Priority Associated Diagnoses Orde r Schedule MISCELLANEOUS GENETIC TEST Lab Routine Genetic screening 1 Occurrences starting 11/13/2023 until 11/13/2024 documented as of this encounter Goals Goal [...] as of this encounter Visit Diagnoses Diagnosis Genetic screening- Primary Other genetic screening documented in this encounter Care Teams Park Manager Relationship Specialty Start Date End Date Damaso Black MD [address] [address] PCP - General Family Medicine 11/22/22 Swapnil Lopez MD [address] [place] [id number] Internal Medicine-Gastroenterology 02/16/22 documented as of this encounter
--- OUTSIDE RECORDS SUMMARY | 2024-08-15 13:53 | XMS_ITS | Encounter Summary ---
Author Organization [place] [address] Care Team Providers Care Towboat Pilot Name Role Phone Swapnil Lopez MD Unavailable [phone] Damaso Black MD Primary Care Provider [phone] Reason for Referral * MRI/CAT Scan (Routine) - Pending Review Specialty Diagnoses / Procedures Referred By Contac t Referred To Contact Radiology Diagnoses Invasive ductal carcinoma of breast, left (HCC) Procedures PET CT SKULL BASE TO MID THIGH Ian Ruiz MD [address] [place] [address] [place] [address] Phone: tel: fax: Referral ID Status Reason Start Date Expiration Date V isits Requested Visits Authorized [id number] Pending Review 11/13/2023 11/12/2024 5 5 * Consultation (Routine) - Pending Review Specialty Diagnoses / Procedures Referred By Contac t Referred To Contact Oncology Diagnoses Invasive ductal carcinoma of breast, left (HCC) Ian Ruiz MD [address] [place] [address] [address] [place] [address] Phone: tel: fax: Referral ID Status Reason Start Date Expiration Date Visits Requested Visits Authorized [id number] Pending Review Specialty Services Required 11/13/2023 11/12/2024 1 1 Question Answer Specialty Request Reason for Visit * Reason Comments Breast Cancer Encounter Details Date Type Department Care Team (Latest Contact Info) Description 11/13/2023 10:57 AM EST - 11/13/2023 11:38 AM EST Hospital Encounter [facility] [place] [address] Ian Ruiz MD [address] [place] [address] [address] [place] [address] Invasive ductal carcinoma of breast, left (HCC) (Primary Dx); Abnormal mammogram; Mass of left breast, unspecified quadrant; Crohn's disease with complication, unspecified gastrointestinal tract location (HCC); History of stomach cancer; Alcoholism (HCC) Discharge Disposition: Home or Self Care [...] Sign Reading Time Taken Comments Blood Pressure 134/80 11/13/2023 11:12 AM EST Pulse 74 11/13/2023 11:12 AM EST Temperature 36.2 ??C (97.2 ??F) 11/13/2023 11:[address] Respiratory Rate - - Oxygen Saturation - - Inhaled Oxygen Concentration - - Weight - [...] 11:13 AM LUCÍA Gabby Mercedes RMA * Because of a physical, mental or emotional condition, does this person have difficulty doing errands alone such as visiting a doctor's office or shopping? Answer Date of Assessment Author No 09/05/2017 11:13 AM LUCÍA Mercedes GabbySHANNON james documented as of this encounter Mental Status * Because of a physical, mental or emotional condition, does this person have serious difficulty concentrating, remembering or making decisions? Answer Entry Date Author No 09/05/2017 11:13 AM LUCÍA Mercedes Gabby RMA documented in this encounter Medications at [...] documented in this encounter Progress Notes * Damaris Plascencia, SHANNON - 11/13/2023 11:00 AM EST Subjective: We have been asked by Dr. Black to provide initial consultation on Marleni History of Present Illness The patient is a 63 y.o. female who presents with a complaint of New Consult Left breast cancer Pt reports she felt a breast lump and it is enlarging No breast surgery in the past She has Crohn's disease. She has had 23 surgeries She had bowel cancer She had a natural menopause and then a hysterectomy No other family members with breast, ovarian, prostate, pancreatic or melanoma cancer. No appetite and reports weight loss Pt reports black outs an nose bleeds I have confirmed and addended the HPI and thus it represents my work . HPI Past Medical History: Diagnosis Date Anemia Cancer (HCC) Crohn disease (HCC) Encounter for blood transfusion Lab test positive for detection of COVID-19 virus 02/12/2021 02/16/21=pt stated that she tested COVID positive on 02/12/21 @ [facility], instructed pt to notify Dr Lantigua's office to reschedule surgery Patient Active Problem List Diagnosis Date Noted Invasive ductal carcinoma of breast, left (HCC) [...] Exacerbation of Crohn's disease (HCC) 04/02/2015 Alcoholism ([facility]) Crohn's History of stomach cancer Depression Past Surgical History: Procedure Laterality Date ANTERIOR COMPARTMENT DECOMPRESSION Left 04/15/2021 LEFT DEQUERVAINS RELEASE ; Surgeon: Henry Lantigua MD; Location: [facility]; Service: Hand BREAST BIOPSY Left 10/26/2023 2:00 BREAST BIOPSY Left 10/26/2023 axilla node SECTION x2 COLON SURGERY x11 crohns COLONOSCOPY COLOSTOMY ILEOSTOMY OR JEJUNOSTOMY UPPER GASTROINTESTINAL ENDOSCOPY N/A 06/25/2016 ESOPHAGOGASTRODUODENOSCOPY with biopsy with conscious sedation; Surgeon: Christopher Matthews MD PHD; Location: [facility]; Service: Endoscopy Family History Problem Relation Age of Onset Heart Disease Father Social History Tobacco Use Smoking status: Never Smokeless tobacco: Never Substance Use Topics Alcohol use: Not Currently Current Outpatient Medications Medication Sig Dispense Refill budesonide 9 mg Oral tablet, delayed & ext.release Take 1 Tablet by mouth daily. 90 Tablet 1 cyclobenzaprine (FLEXERIL) 5 mg Oral Tablet Take 5 mg by mouth as needed. diphenoxylate-atropine (LOMOTIL) 2.5-0.025 mg Oral Tablet TAKE 2 TABLETS BY MOUTH FOUR TIMES DAILY NEEDED. NO MORE THAN 8 TABLETS PER DAY 240 Tablet 3 DULoxetine (CYMBALTA) 30 mg Oral Capsule, Delayed Release(E.C.) loperamide (IMODIUM) 2 mg Oral Capsule TAKE 1 CAPSULE BY MOUTH EVERY 3 HOURS 200 Capsule 0 ondansetron (ZOFRAN) 4 mg Oral Tablet TAKE 1 TABLET BY MOUTH EVERY 6 HOURS NEEDED FOR NAUSEA 30 Tablet 5 predniSONE (DELTASONE) 10 mg Oral Tablet Take 1 Tablet by mouth daily. 112 Tablet 1 traMADoL (ULTRAM) 50 mg Oral Tablet TAKE 2 TABLETS BY MOUTH THREE TIMES DAILY ONLY FOR 7 DAYS 42 Tablet 1 No current facility-administered medications for this encounter. Allergies Allergen Reactions Ppguk-Mbxat-1-Nid-Qwh-Fixbuc Hives Sulfa (Sulfonamide Antibiotics) Review of Systems Constitutional: Positive for appetite change and unexpected weight change (weight loss). Negative for chills and fever. HENT: Positive for nosebleeds. Negative for trouble swallowing. Respiratory: Negative for shortness of breath. Objective: Vitals: 11/13/23 1112 BP: 134/80 Pulse: 74 Temp: 97.2 ??F (36.2 ??C) There is no height or weight on file to calculate BMI. Physical Exam Vitals and nursing note reviewed. Exam conducted with a reproductive healthcare assistant present. Constitutional: Appearance: Normal appearance. HENT: Head: Normocephalic and atraumatic. Cardiovascular: Rate and Rhythm: Normal rate. Pulmonary: Effort: Pulmonary effort is normal. Chest: Breasts: Left: Mass (4 cm left breast mass) and tenderness present. Comments: Right breast exam negative Abdominal: General: Abdomen is flat. There is no distension. Palpations: Abdomen is soft. Tenderness: There is no abdominal tenderness. Lymphadenopathy: Comments: Enlarged lymph nodes left axilla Skin: Comments: Negative skin exam on back Neurological: Mental Status: She is alert. Psychiatric: Mood and Affect: Mood normal. Behavior: Behavior normal. Thought Content: Thought content normal. Judgment: Judgment normal. Assessment and Plan: Ordering Location: [facility] Received: 10/26/2023 1017 Pathologist: Tika Mc MD Specimens: A) - Breast, Left, palpable 2:00 3cm irregular hypoechoic mass Cat 5; Time of 1st core 09; Time in formalin 0929 B) - Axilla, Left, abnormal node; Time of 1st core 0936; Time in formalin 0938 FINAL DIAGNOSIS A) Left breast mass at [...] measures 7 mm in adri linear length. New Consult Coming from [facility] Discussed in breast conference today Reviewed and discussed left breast needle bx consistent with invasive ductal carcinoma Left axilla path consistent with metastatic ductal carcinoma Patient was given options for breast preservation with or without radiation vs mastectomy. Same % of recurrence and survival with segmentectomy with or without radiation vs Mastectomy as long as there is only one site of disease Imaging reviewed and solid left breast mass seen. She had a couple lymph nodes in her left axilla Surgery is to be determined Discussed considerations as age, tumor size and lymph nodes Her tumor is ER/RI positive and HER 2 negative. Her tumor is sensitive to pills Discussed with patient Oncotype testing to determine role for chemotherapy- pamphlet given to patient Advised to start on Arimidex today- Medication and side effects discussed PET scan ordered Oncotype testing ordered Genetic testing recommended-appt today Medical Oncology referral placed Arimidex Written Rx given to pt Return in 2 weeks Note written by SHANNON Vargas, acting as scribe for Narinder Ruiz MD. Diagnoses and all orders for this visit: Invasive ductal carcinoma of breast, left (HCC) - AMB REFERRAL TO ONCOLOGY - PET CT SKULL BASE TO MID THIGH; Future Abnormal mammogram Mass of left breast, unspecified quadrant Crohn's disease with complication, unspecified gastrointestinal tract location (HCC) History of stomach cancer Alcoholism (HCC) * Mary Kate Winchester RN - 11/13/2023 11:00 AM EST Pt seen in breast clinic today for newly diagnosis of L IDC . ER +, RI +, HER2 - , lymph node positive. Reviewed medical and family history. P: Knowledge deficit related to newly diagnosed breast cancer; anxiety related to diagnosis of breast cancer. G: Educate and support decisions based upon patient's circumstances and recommendations/ offer emotional support I: Dr. Ruiz in to examine/evaluate. Reviewed imaging and pathology. CBE performed. Discussed treatment options. Discussed surgical options- mastectomy vs lumpectomy with or without radiation. Discussed SLNB, risk and benefits. Discussed possible chemotherapy/radiation therapy, risk and benefits. Discussed hormone receptors and HER2. Discussed AI therapy, risks and benefits-arimidex. Discussedoncotype. Discussed Genetic testing benefits. Plan: PET scan or bone scan/CT abd pelvis Oncotype test ordered- staff message sent Med onc consultation today Genetics today Reviewed educational information. Patient encouraged to call nurse navigator for questions or concerns, emotional support provided. * Ian Ruiz MD - 11/13/2023 11:00 AM EST Subjective: We have been asked by Dr. Black to provide initial consultation on Marleni History of Present Illness The patient is a 63 y.o. female who presents with a complaint of New Consult Left breast cancer Pt reports she felt a breast lump and it is enlarging No breast surgery in the past She has Crohn's disease. She has had 23 surgeries She had bowel cancer She had a natural menopause and then a hysterectomy No other family members with breast, ovarian, prostate, pancreatic or melanoma cancer. No appetite and reports weight loss Pt reports black outs an nose bleeds I have confirmed and addended the HPI and thus it represents my work . HPI Past Medical History: Diagnosis Date Anemia Cancer (HCC) Crohn disease (HCC) Encounter for blood transfusion Lab test positive for detection of COVID-19 virus 02/12/2021 02/16/21=pt stated that she tested COVID positive on 02/12/21 @ [facility], instructed pt to notify Dr Lantigua's office to reschedule surgery Patient Active Problem List Diagnosis Date Noted Invasive ductal carcinoma of breast, left (HCC) [...] RELEASE ; Surgeon: Henry Lantigua MD; Location: [facility]; Service: Hand BREAST BIOPSY Left 10/26/2023 2:00 BREAST BIOPSY Left 10/26/2023 axilla node SECTION x2 COLON SURGERY x11 crohns COLONOSCOPY COLOSTOMY ILEOSTOMY OR JEJUNOSTOMY UPPER GASTROINTESTINAL ENDOSCOPY N/A 06/25/2016 ESOPHAGOGASTRODUODENOSCOPY with biopsy with conscious sedation; Surgeon: Christopher Matthews MD PHD; Location: [facility]; Service: Endoscopy Family History Problem Relation Age of Onset Heart Disease Father Social History Tobacco Use Smoking status: Never Smokeless tobacco: Never Substance Use Topics Alcohol use: Not Currently Current Outpatient Medications Medication Sig Dispense Refill diphenoxylate-atropine (LOMOTIL) 2.5-0.025 mg Oral Tablet TAKE 2 TABLETS BY MOUTH FOUR TIMES DAILY NEEDED. NO MORE THAN 8 TABLETS PER DAY (Patient not taking: Reported on 11/13/2023) 240 Tablet 3 loperamide (IMODIUM) 2 mg Oral Capsule TAKE 1 CAPSULE BY MOUTH EVERY 3 HOURS 200 Capsule 0 ondansetron (ZOFRAN) 4 mg Oral Tablet TAKE 1 TABLET BY MOUTH EVERY 6 HOURS NEEDED FOR NAUSEA 30 Tablet 5 predniSONE (DELTASONE) 10 mg Oral Tablet Take 1 Tablet by mouth daily. 112 Tablet 1 traMADoL (ULTRAM) 50 mg Oral Tablet TAKE 2 TABLETS BY MOUTH THREE TIMES DAILY ONLY FOR 7 DAYS (Patient not taking: Reported on 11/13/2023) 42 Tablet 1 No current facility-administered medications for this encounter. Allergies Allergen Reactions Rxaei-Msdbz-5-Qnl-Mxs-Aadnju Hives Sulfa (Sulfonamide Antibiotics) Review of Systems Constitutional: Positive for appetite change and unexpected weight change (weight loss). Negative for chills and fever. HENT: Positive for nosebleeds. Negative for trouble swallowing. Respiratory: Negative for shortness of breath. Objective: Vitals: 11/13/23 1112 BP: 134/80 Pulse: 74 Temp: 97.2 ??F (36.2 ??C) There is no height or weight on file to calculate BMI. Physical Exam Vitals and nursing note reviewed. Exam conducted with a reproductive healthcare assistant present. Constitutional: Appearance: Normal appearance. HENT: Head: Normocephalic and atraumatic. Cardiovascular: Rate and Rhythm: Normal rate. Pulmonary: Effort: Pulmonary effort is normal. Chest: Breasts: Left: Mass (4 cm left breast mass) and tenderness present. Comments: Right breast exam negative Abdominal: General: Abdomen is flat. There is no distension. Palpations: Abdomen is soft. Tenderness: There is no abdominal tenderness. Lymphadenopathy: Comments: Enlarged lymph nodes left axilla Skin: Comments: Negative skin exam on back Neurological: Mental Status: She is alert. Psychiatric: Mood and Affect: Mood normal. Behavior: Behavior normal. Thought Content: Thought content normal. Judgment: Judgment normal. Assessment and Plan: Ordering Location: [facility] Received: 10/26/2023 1017 Pathologist: Tika Mc MD Specimens: A) - Breast, Left, palpable 2:00 3cm irregular hypoechoic mass Cat 5; Time of 1st core 0926; Time in formalin 0929 B) - Axilla, Left, abnormal node; Time of 1st core 0936; Time in formalin 0938 FINAL DIAGNOSIS A) Left breast mass at [...] measures 7 mm in adri linear length. New Consult Coming from [facility] Discussed in breast conference today Reviewed and discussed left breast needle bx consistent with invasive ductal carcinoma Left axilla path consistent with metastatic ductal carcinoma Patient was given options for breast preservation with or without radiation vs mastectomy. Same % of recurrence and survival with segmentectomy with or without radiation vs Mastectomy as long as there is only one site of disease Imaging reviewed and solid left breast mass seen. She had a couple lymph nodes in her left axilla Surgery is to be determined Discussed considerations as age, tumor size and lymph nodes Her tumor is ER/RI positive and HER 2 negative. Her tumor is sensitive to pills Discussed with patient Oncotype testing to determine role for chemotherapy- pamphlet given to patient Advised to start on Arimidex today- Medication and side effects discussed PET scan ordered Oncotype testing ordered Genetic testing recommended-appt today Medical Oncology referral placed Arimidex Written Rx given to pt Return in 2 weeks Note written by SHANNON Vargas, acting as scribe for Narinder Ruiz MD. Marleni Way was seen today for breast cancer. Diagnoses and all orders for this visit: Invasive ductal carcinoma of breast, left (HCC) - AMB REFERRAL TO ONCOLOGY - PET CT SKULL BASE TO MID THIGH; Future Abnormal mammogram Mass of left breast, unspecified quadrant Crohn's disease with complication, unspecified gastrointestinal tract location (HCC) History of stomach cancer Alcoholism (HCC) ???I have reviewed this note and it accurately reflects my work and decisions made during this visit.?? Ian Ruiz MD documented in this encounter Miscellaneous Notes * Patient Instructions - Mary Kate Winchester RN - 11/13/2023 11:00 AM EST Images from the original note were not included. DISCHARGE INSTRUCTIONS Maintain a healthy diet and exercise for overall health benefits and cancer risk reduction. NURSE NAVIGATOR CONTACT: If you have any problems or questions, contact Nurse Navigator at [phone]. If you need to make appointment in the future, call the Nurse Navigator's secretary office clerk at [phone]. Please remember the nurse checks voice mail messages throughout the day. However, if the nurse taking care of the phone messages is with another patient, she may not be able to return your call untillater in the day. If you need immediate assistance or if there is an emergency, please call your doctor's number or go to the Emergency Room. MONTHLY SELF-BREAST EXAM Don't forget to continue monthly Self Breast Exam; report new lumps that feel like a hard rock or pebble. NEXT APPOINTMENTS You will have a medical oncology consultation Genetics take 2-3 weeks to come back. You will have blood work for this today. A PET scan has been ordered for you. An oncotype is ordered for you to help determine role for chemotherapy. Oncotype will be sent; it takes 2-3 weeks to receive the results We will call you when the results are available. Breast Self-Awareness Breast self-awareness means: Knowing how your breasts look. Knowing how your breasts feel. Checking your breasts every month for changes. Telling your doctor if you notice a change in your breasts. Breast self-awareness allows you to notice a breast problem early while it is still small. How to do a breast self-exam One way to learn what is normal for your breasts and to check for changes is to do a breast self-exam. To do a breast self-exam: Look for Changes Take off all the clothes above your waist. air and hydronic balancing technician front of a mirror in a room with good lighting. Put your hands on your hips. Push your hands down. Look at your breasts and nipples in the mirror to see if one breast or nipple looks different than the other. Check to see if: The shape of one breast is different. The size of one breast is different. There are wrinkles, dips, and bumps in one breast and not the other. Look at each breast for changes in your skin, such as: Redness. Scaly areas. Look for changes in your nipples, such as: Liquid around the nipples. Bleeding. Dimpling. Redness. A change in where the nipples are. Feel for Changes Lie on your back on the floor. Feel each breast. To do this, follow these steps: Pick a breast to feel. Put the arm closest to that breast above your head. Use your other arm to feel the nipple area of your breast. Feel the area with the pads of your three middle fingers by making small circles with your fingers. For the first mi'kmaq, press lightly. Forthe second mi'kmaq, press harder. For the third mi'kmaq, press even harder. Keep making circles with your fingers at the light, harder, and even harder pressures as you move down your breast. Stop when you feel your ribs. Move your fingers a little toward the center of your body. Start making circles with your fingers again, this time going up until you reach your collarbone. Keep making up and down circles until you reach your armpit. Remember to keep using the three pressures. Feel the other breast in the same way. Sit or infant lead teacher the shower or tub. With soapy water on your skin, feel each breast the same way you did in step 2, when you were lyingon the floor. Write Down What You Find After doing the self-exam, write down: What is normal for each breast. Any changes you find in each breast. When you last had your period. How often should I check my breasts? Check your breasts every month. If you are , the best time to check them is after you feed your baby or after you use a breast pump. If you get periods, the best time to check your breasts is 5-7 days after your period is over. When should I see my doctor? See your doctor if you notice: A change in shape or size of your breasts or nipples. A change in the skin of your breast or nipples, such as red or scaly skin. Unusual fluid coming from your nipples. A lump or thick area that was not there before. Pain in your breasts. Anything that concerns you. This information is not intended to replace advice given to you by your health care provider. Make sure you discuss any questions you have with your health care provider. Document Released: 03/06/2009 Document Revised: 02/23/2017 Document Reviewed: 08/07/2016 [employer] Patient Education ?? 2018 [employer]. documented in this encounter Plan of Treatment Upcoming Encounters Date Type Department Care Team (Late st Contact Info) Description 09/11/2024 1:45 PM EST Office Visit [facility] [address] [place] [address] Swapnil Lopez MD [address] [place] [address] 10/21/2024 2:00 PM EST Appointment [facility] MRI [address] [place] [address] Jacky Shirley MD [address] [place] [address] [place] [address] 10/23/2024 1:45 PM EST Appointment [facility] [place] [address] Olena Darby APRN [address] [place] [address] [place] [address] Scheduled Referrals Name Type Priority Associated Diagnoses Orde r Schedule AMB REFERRAL TO ONCOLOGY Outpatient Referral Routine Invasive ductal carcinoma of breast, left (HCC) Ordered: 11/13/2023 documented as of this encounter Goals Goal Patient Goal Type Associated Problems Recent Progress Patient-Stated? Author Breast [facility] Mary Kate Vázquez, RN Note: Patient acknowledges understanding of new diagnosis, plan of care, available resources and how to contact Nurse Navigator with any future questions or concerns. Maintain a healthy diet, exercise regularly and maintain an ideal body weight General Linda Perez, RMA documented as of this encounter Results * PET CT SKULL [...] ductal carcinoma of breast, left (HCC)- Primary Abnormal mammogram Abnormal mammogram, unspecified Mass of left breast, unspecified quadrant Crohn's disease with complication, unspecified gastrointestinal tract location (HCC) History of stomach cancer Personal history of malignant neoplasm of stomach Alcoholism (HCC) Other and unspecified alcohol dependence, unspecified drinking behavior Pre-procedural laboratory examination- Primary Invasive ductal carcinoma of breast, left (HCC) documented in this encounter Care Teams Towboat Pilot Relationship Specialty Start Date End Date Damaso Black MD [address] [facility] [address] [place] [address] PCP - General Family Medicine 11/22/22 Swapnil Lopez MD [address] [place] [id number] Internal Medicine-Gastroenterology 02/16/22 documented as of this encounter
--- OUTSIDE RECORDS SUMMARY | 2024-08-15 13:53 | XMS_ITS | Encounter Summary ---
Author Organization [place] [address] Care Team Providers Care Trust Manager Assistant Name Role Phone Swapnil Lopez MD Unavailable [phone] Damaso Black MD Primary Care Provider [phone] Encounter Details Date Type Department Care Team (Late st Contact Info) Description 11/13/2023 8:00 AM EST Tumor Board [facility] [place] [address] Social History Tobacco Use Types Packs/Day Years [...] PM EST Office Visit [facility] [address] [place] [facility] [place] [address] Swapnil Lopez MD [address] [place] [address] 10/21/2024 2:[address] [facility] [address] [facility] [place] [address] Jacky Shirley MD [address] [place] [address] CAN[place], [place] [id number] 10/23/2024 1:45 PM EST Appointment [facility] [address] Olena Darby APRN [address] [place] [address] [place], [place] [id number] documented as of this encounter Goals Goal Patient Goal Type Associated Problems Recent Progress Patient-Stated? Author Breast Health Breast Health Mary Kate Vázquez, RN Note: Patient acknowledges understanding of new diagnosis, plan of care, available resources and how to contact Nurse Navigator with any future questions or concerns. Maintain a healthy diet, exercise regularly and maintain an ideal body weight General No Walden, Linda G, RMA documented as of this encounter Visit Diagnoses Not on filedocumented in this encounter Orders Appointment Requests Count Last Ordered Date rst Ordered Date [facility] ONCBCN [facility] TUMOR BOARD 1 10/30/2023 documented in this encounter Care Teams Trust Manager Assistant Relationship Specialty Start Date End Date Damaso Black MD [address] [place] [address] PCP - General Family Medicine 11/22/22 Swapnil Lopez MD [address] [place] [address] Internal Medicine-Gastroenterology 02/16/22 documented as of this encounter
--- OUTSIDE RECORDS SUMMARY | 2024-08-15 13:53 | XMS_ITS | Encounter Summary ---
Author Organization [place] [address] Care Team Providers Care Forecast Analyst Name Role Phone Swapnil Lopez MD Unavailable [phone] aDmaso Black MD Primary Care Provider [phone] Darío Rubio MD Unavailable [phone] Reason for Visit * Reason Onset Date Comments Appointment Needed 11/13/2023 Encounter Details Date Type Department Care Team (Late st Contact Info) Description 11/13/2023 Telephone [facility] [place] [id number] Mary Kate Winchester, RN Appointment Needed Social History Tobacco Use Types [...] Encounter - Ginger Gunter RN - 11/13/2023 2:05 PM EST Discussed with [facility]-pt scheduled for PET scan 11/23/23 at 2:30. Contacted Keely verified appointment info and location. Reviewed instructions for PET scan. She states is patientgets out of fpc prior to 11/23/23 they will let her know of her appointments. * Telephone Encounter - Mary Kate Winchester RN - 11/13/2023 11:42 AM EST PET scan ordered. NN please call [facility] to set this up for patient ANNA med onc consult today. NN watch for med onc plan. documented in this encounter Plan of Treatment Upcoming Encounters Date Type Department Care Team (Late st Contact Info) Description 09/11/2024 1:45 PM EST Office Visit [facility] [address] [facility] [place] [address] Swapnil Lopez MD [address] [place] [address] 10/21/2024 2:00 PM EST Appointment [facility] [place] MRI [address] [id number] Jacky Shirley MD 1 [facility] [place] [address] 10/23/2024 1:45 PM EST Appointment [facility] [place] [address] Olena Darby APRN 1 [place], [place] [id number] documented as of this encounter Goals Goal [...] on filedocumented in this encounter Care Teams Forecast Analyst Relationship Specialty Start Date End Date Damaso Black MD 1005 [facility] [address] [place] [address] PCP - General Family Medicine 11/22/22 Swapnil Lopez MD [address] [place] [phone] Internal Medicine-Gastroenterology 02/16/22 Darío Rubio MD 1 [facility] [place] [address] Internal Medicine-Medical Oncology 12/11/23 documented as of this encounter
--- OUTSIDE RECORDS SUMMARY | 2024-08-15 13:53 | XMS_ITS | Encounter Summary ---
Author Organization [place] [address] Care Team Providers Care Publicity Consultant Name Role Phone Swapnil Lopez MD Unavailable [phone] Damaso Black MD Primary Care Provider [phone] Darío Rubio MD Unavailable [phone] Mya aNranjo MD Unavailable [phone] Ashley Ordonez APPRENTICE Unavailable [phone] Nicoel Melendez RN Unavailable Unavailable Aislinn Viera RN Unavailable Unavailable Ronit Conner RN Unavailable Unavailable Armando Vieira REGISTERED ROUTE ASSOCIATE Unavailable Unavailable Vicki Amtao RN Unavailable UnavailTrinh Soto APPRENTICE Unavailable [phone] Selina Olsen APPRENTICE Unavailable [phone] Veda Mcfarland Clerical Staff Unavailable U navailable Encounter Details Date Type Department Care Team (Late st Contact Info) Description 10/26/2023 Orders Only [facility] [place] [address] Tika Mc MD [address] [place] [phone] Social History Tobacco Use Types Packs/Day Years [...] PM EST Office Visit [facility] [address] [place] [facility] [place] [address] Swapnil Lopez MD [address] [facility] [address] 10/21/2024 2:00 PM EST Appointment [facility] MRI [address] [place] [address] Jacky Shirley MD [address] [place] [address] [place] [address] 10/23/2024 1:45 PM EST Appointment [facility] [place], [place] [phone] Olena Darby APRN 1 [facility] [place] [address] documented as of this encounter Goals Goal [...] AM EST) 10/26/2023 9:48 AM EST Narrative [facility] - 11/01/2023 3:22 PM EST Requesting Provider: CANDY ??KAY Mouna Specimen = [id number] Tika Mc MD PATHOLOGY ORDERABLES Final Resul t [facility] 1 [place], [place] [phone] documented in this encounter Visit Diagnoses Not on filedocumented in this encounter Care Teams Publicity Consultant Relationship Specialty Start Date End Date Damaso Black MD [facility]5 [facility] [address] [place] [address] PCP - General Family Medicine 11/22/22 Swapnil Lopez MD [address] [place] [phone] Internal Medicine-Gastroenterology 02/16/22 Darío Rubio MD 1 [facility] [place] [address] Internal Medicine-Medical Oncology 12/11/23 Mya Naranjo MD [address] [facility] [place] [address] Family Medicine - Hospice And Palliative Medicine 01/04/24 Ashley Ordonez, YON [address] [facility] [place] [address] Nurse Practitioner 01/04/24 Nicole Melendez, RN Registered Nurse 01/04/24 Aislinn Viera, RN Registered Nurse 02/07/24 Ronit Conner, RN Registered Nurse 04/10/24 Armando Vieira MSW Transfer Coordinator 04/10/24 Vicki Amato, RN Registered Nurse 04/10/24 Trinh Bullock APRN [address] [facility] [place] [address] Nurse Practitioner Nurse Practitioner-Family 04/10/24 Selina Olsen APRN [address] [facility] [place] [address] Nurse Practitioner 04/10/24 Veda Mcfarland, Clerical Staff 05/14/24 documented as of this encounter
--- OUTSIDE RECORDS SUMMARY | 2024-08-15 13:53 | XMS_ITS | Encounter Summary ---
Author Organization [place] [address] Care Team Providers Care Crm Developer Name Role Phone Swapnil Lopez MD Unavailable [phone] Damaso Black MD Primary Care Provider [phone] Reason for Referral * MRI/CAT Scan (Emergency) - Closed Specialty Diagnoses / Procedures Referred By Contac t Referred To Contact Radiology Diagnoses Invasive ductal carcinoma of left breast, stage 3 (HCC) Chronic nonintractable headache, unspecified headache type Procedures MRI BRAIN W WO CONTRAST Darío Rubio MD [address] [place] [address] [place] [address] Phone: tel: fax: [facility] [place] [address] Phone: tel: fax: Referral ID Status Reason Start Date Expiration Date Visits Re quested Visits Authorized [id number] Closed 11/13/2023 11/12/2024 1 1 Reason for Visit * MRI/CAT Scan (Emergency) - Closed Specialty Diagnoses / Procedures Referred By Contac t Referred To Contact Radiology Diagnoses Invasive ductal carcinoma of left breast, stage 3 (HCC) Chronic nonintractable headache, unspecified headache type Procedures MRI BRAIN W WO CONTRAST Darío Rubio MD [address] [place] [address] [address] [place] [address] Phone: tel: fax: [place] [facility] [address] [address] Phone: tel: fax: Referral ID Status Reason Start Date Expiration Date Visits Re quested Visits Authorized [id number] Closed 11/13/2023 11/12/2024 1 1 Encounter Details Date Type Department Care Team (Latest Contact Info) Description 11/23/2023 11:57 AM EST - 11/23/2023 12:54 PM [facility] Hospital Encounter [facility] [address] [address] Darío Rubio MD [address] [facility] [address] [address] Invasive ductal carcinoma of left breast, stage 3 (HCC); Chronic nonintractable headache, unspecified headache type Discharge [...] PM EST Office Visit [facility] [address] [place] [facility] [place] [address] Swapnil Lopez MD [address] [place] [address] 10/21/2024 2:00 PM EST Appointment [facility] MRI [address] [place] [address] Jacky Shirley MD [address] [place] [address] [place] [address] 10/23/2024 1:45 PM EST Appointment [facility] [place] [address] Olena Darby APRN [address] [place] [address] documented as of this encounter Goals [...] Procedure Name Priority Date/Time Associated Diagnosis Comments GLUCOSE METER POC Routine 11/23/2023 1:0 4 PM EST MRI BRAIN W WO CONTRAST STAT 11/23/2023 12:45 PM EST Invasive ductal carcinoma of left breast, stage 3 (HCC) Chronic nonintractable headache, unspecified headache type documented in this encounter Results * GLUCOSE METER POC (11/23/2023 1:04 PM EST) [facility] Glucose Meter POC 92 70 - 100 mg/dL 11/23/2023 1:05 PM EST [facility] Sample Type Capillary 11/23/2023 1:05 PM EST [facility] Patient Status Non-Critical Patient 11/23/2023 1:05 PM EST [facility] Blood BLOOD SPECIMEN / Unknown 11/23/2023 1:04 PM EST 11/23/2023 1:05 PM EST Darío Rubio MD POINT OF CARE TEST ORDERABLES Final Result Performing Organization Address City/State/[facility] Co de Phone Number [facility] [address] [place] [address] * MRI BRAIN W WO CONTRAST (11/23/2023 [...] site of left female breast (HCC)-ICD-10-CM R51.9-Headache, snvtaxkozgq-RAZ-50-CM G89.29-Other chronic zxlr-QVX-98-CM. COMPARISON: ??None. PROCEDURE COMMENTS: Multiplanar multiecho MR [...] unspecified site of leftfemale breast (HCC)-ICD-10-CM R51.9-Headache, utlzpvmaofc-OSR-32-CM G89.29-Other chronic moyn-JTT-88-CM. COMPARISON: None. PROCEDURE COMMENTS: Multiplanar multiecho MR [...] the ordering clinician. us Darío Rubio MD IMG MRI ORDERABLES Final Resul t documented in this encounter Visit Diagnoses Diagnosis Invasive ductal carcinoma of left breast, stage 3 (HCC) Chronic nonintractable headache, unspecified headache type documented in this encounter Administered Medications Inactive Administered Medications - up to 1 most recent administrations Medication Order MAR Action Action Date Dose Rate Site gadoterate meglumine (DOTAREM) prefilled syringe 10 mL 10 mL, Intravenous, ONCE PRN, 1 dose, Starting on Ashlie 11/23/23 at 1213, Until Ashlie 11/23/23 at 1241, Radiology Procedure, VESICANT , MRI (Contrasts) Given 11/23/2023 12:41 PM EST 10 mL sodium chloride bacteriostatic 0.9 % injection 10 mL 10 mL, Intravenous, ONCE PRN, 1 dose, Starting on Ashlie 11/23/23 at 1213, Until Ashlie 11/23/23 at 1241, Line care, PRN Lock flush per protocol every shift and with IV meds., MRI (Contrasts) Given 11/23/2023 12:41 PM EST 10 mL documented in this encounter Care Teams Crm Developer Relationship Specialty Start Date End Date Damaso Black MD 1005 [facility] [address] [place] [address] PCP - General Family Medicine 11/22/22 Swapnil Lopez MD [address] [place] [address] Internal Medicine-Gastroenterology 02/16/22 documented as of this encounter
--- OUTSIDE RECORDS SUMMARY | 2024-08-15 13:53 | XMS_ITS | Encounter Summary ---
Author [place] [address] Care Team Providers Care Hop Strainer Name Role Phone Swapnil Lopez MD Unavailable [phone] Damaso Black MD Primary Care Provider [phone] Encounter Details Date Type Department Care Team (Late st Contact Info) Description 11/13/2023 Orders Only [facility] Medical Oncology [place] [phone] Darío Rubio MD [address] [place] [address] Invasive ductal carcinoma of breast, left (HCC) [...] Description 09/11/2024 1:45 PM EST Office Visit [facility] [address] [place] [address] Swapnil Lopez MD [address] [place] [address] 10/21/2024 2:00 PM EST Appointment [facility] MRI [address] [place] [address] Jacky Shirley MD [address] [place] [address] CANCER [place], [place] [phone] 10/23/2024 1:45 PM EST Appointment [facility] [place] [place] [address] Olena Darby APRN [address] [place] [address] documented as of this encounter Goals [...] - 145 mmol/L 11/13/2023 1:48 PM EST [facility] Potassium 3.6 3.5 - 5.0 mmol/L 11/13/2023 1:48 PM EST [facility] Chloride 105 98 - 107 mmol/L 11/13/2023 1:48 PM EST [facility] Total CO2 28 22 - 29 mmol/L 11/13/2023 1:48 PM EST [facility] Anion Gap 9 7 - 16 mmol/L 11/13/2023 1:48 PM EST [facility] Calcium 10.1 8.8 - 10.4 mg/dL 11/13/2023 1:48 PM EST [facility] Glucose Lvl 106(H) 70 - 99 mg/dL 11/13/2023 1:48 PM EST [facility] BUN 11 8 - 23 mg/dL 11/13/2023 1:48 PM EST [facility] Creatinine 0.63 0.51 - 1.30 mg/dL 11/13/2023 1:48 PM EST [facility] Albumin 4.3 3.2 - 4.6 gm/dL 11/13/2023 1:48 PM EST [facility] Total Protein 7.2 6.4 - 8.3 gm/dL 11/13/2023 1:48 PM EST [facility] Bili Total 0.4 0.2 - 1.3 mg/dL 11/13/2023 1:48 PM EST [facility] ALT 8 <=41 U/L 11/13/2023 1:48 PM EST [facility] AST 14 <=40 U/L 11/13/2023 1:48 PM EST [facility] Alk Phos 116 36 - 123 U/L 11/13/2023 1:48 PM EST [facility] eGFR (CKD-EPIcr 2020) 100 >=60 mL/min/1.7 3 m2 11/13/2023 1:48 PM EST [facility] Comment:Estimated GFR was ca lculated using the CKD-EPIcr (2020) equation refit without race. The equation is recommended by the National Kidney Foundation - [place] [employer] of Nephrology Task Force. Blood VENOUS BLOOD / Unknown Venipuncture / Unknown 11/13/2023 1:27 PM EST 11/13/2023 1:27 PM EST us Darío Rubio MD CHEMISTRY ORDERABLES Final Res ult [facility] [address] [place] [id number] * CBC WITH DIFF (11/13/2023 1:27 PM EST) WBC 5.8 3.7 - 10.3 x10(3)/mcL 11/13/2023 1:33 PM EST [facility] RBC 4.87 3.90 - 5.20 x10(6)/mcL 11/13/2023 1:33 PM EST [facility] Hgb 14.3 11.2 - 15.7 g/dL 11/13/2023 1:33 PM EST [facility] Hct 41.8 34.0 - 45.0 % 11/13/2023 1:33 PM EST [facility] MCV 85.8 80.0 - 100.0 fL 11/13/2023 1:33 PM EST [facility] MCH 29.4 26.0 - 34.0 pg 11/13/2023 1:33 PM EST [facility] MCHC 34.2 30.7 - 35.5 g/dL 11/13/2023 1:33 PM EST [facility] RDW 13.1 <=14.9 % 11/13/2023 1:33 PM EST [facility] Platelet 230 155 - 369 x10(3)/mcL 11/13/2023 1:33 PM EST [facility] MPV 9.2 8.8 - 12.5 fL 11/13/2023 1:33 PM [facility] Neut # Prelim 3.7 1.6 - 6.1 x10(3)/[facility] 11/13/2023 1:33 PM [facility] Comment:Preliminary automate d absolute neutrophil count. Value may change if manual differential is indicated. Neut Percent 63.7 % 11/13/2023 1:33 PM [facility] Comment:Neutrophils equals s egs plus bands Imm Gran% 0.2 % 11/13/2023 1:33 PM [facility] Comment:Automated count of m etamyelocytes, myelocytes and promyelocytes. Lymph Percent 24.3 % 11/13/2023 1:33 PM [facility] [place] Percent 10.2 % 11/13/2023 1:33 PM [facility] Eos Percent 1.4 % 11/13/2023 1:33 PM [facility] Baso Percent 0.2 % 11/13/2023 1:33 PM [facility] Neut # 3.7 1.6 - 6.1 x10(3)/[facility] 11/13/2023 1:33 PM [facility] Comment:Neutrophils equals s egs plus bands IMMGRAN# 0.0 0.0 - 0.1 x10(3)/[facility] 11/13/2023 1:33 PM [facility] Comment:Automated count of m etamyelocytes, myelocytes and promyelocytes. An absolute IG <0.1 is reported as 0.0. Lymph # 1.4 1.2 - 3.9 x10(3)/[facility] 11/13/2023 1:33 PM [facility] [place] # 0.6 0.3 - 0.9 x10(3)/[facility] 11/13/2023 1:33 PM [facility] Eos# 0.1 0.0 - 0.5 x10(3)/[facility] 11/13/2023 1:33 PM [facility] Baso # 0.0 0.0 - 0.1 x10(3)/[facility] 11/13/2023 1:33 PM [facility] Blood VENOUS BLOOD / Unknown Venipuncture / Unknown 11/13/2023 1:27 PM EST 11/13/2023 1:27 PM EST us Darío Rubio MD HEMATOLOGY ORDERABLES Final Re sult [facility] [address] [place] [address] documented in this encounter Visit Diagnoses Diagnosis Invasive ductal carcinoma of breast, left (HCC)- Primary documented in this encounter Care Teams Hop Strainer Relationship Specialty Start Date End Date Damaso Black MD [address] [address] PCP - General Family Medicine 11/22/22 Swapnil Lopez MD [address] [place] [phone] Internal Medicine-Gastroenterology 02/16/22 documented as of this encounter
--- OUTSIDE RECORDS SUMMARY | 2024-08-15 13:53 | XMS_ITS | Encounter Summary ---
Author Organization [place] [address] Care Team Providers Care Manager Technical Sales Name Role Phone Swapnil Lopez MD Unavailable [phone] Damaso Black MD Primary Care Provider [phone] Reason for Visit * Reason Onset Date Comments Results 11/23/2023 Calling with Res ults Encounter Details Date Type Department Care Team (Late st Contact Info) Description 11/23/2023 Telephone [facility] Medical Oncology [place] [phone] Darío Rubio MD [address] [place] [address] Results (Calling with Results) Social History Tobacco Use Types Packs/Day Years [...] Telephone Encounter - Aislinn Viera RN - 11/23/2023 2:23 PM EST RN aware. Reviewing chart. * Telephone Encounter - Adrianna Cintron - 11/23/2023 2:19 PM EST Caller name: Yojana Relationship/department: [facility] Preferred call back number: [phone] Description of test being resulted STAT MRI Brain W WO Contrast Are the results available in Epic: Yes. RN notified via Teams Ordering physician: Darío Rubio documented in this encounter Plan of Treatment Upcoming Encounters Date Type Department Care Team (Late st Contact Info) Description 09/11/2024 1:45 PM EST [facility] Visit [facility] [address] [facility] [place] [address] Swapnil Lopez MD [address] [place] [address] 10/21/2024 2:00 PM EST Appointment [facility] [address] [address] Jacky Shirley MD 1 [facility] [place] [address] 10/23/2024 1:45 PM EST Appointment [facility] [place] [address] Olena Darby APRN 1 [facility] [place], [place] [phone] documented as of this encounter Goals Goal [...] on filedocumented in this encounter Care Teams Manager Technical Sales Relationship Specialty Start Date End Date Damaso Black MD 1005 [facility] [address] [place] [address] PCP - General Family Medicine 11/22/22 Swapnil Lopez MD [address] [place] [phone] Internal Medicine-Gastroenterology 02/16/22 documented as of this encounter
--- OUTSIDE RECORDS SUMMARY | 2024-08-15 13:53 | XMS_ITS | Encounter Summary ---
Author Organization [place] [address] Care Team Providers Care Shearing Machine Feeder Name Role Phone Swapnil Lopez MD Unavailable [phone] Damaso Black MD Primary Care Provider [phone] Reason for Referral * MRI/CAT Scan (Routine) - Pending Review Specialty Diagnoses / Procedures Referred By Lata deal Referred To Contact Radiology Diagnoses Invasive ductal carcinoma of breast, left (HCC) Procedures MRI BREAST BILATERAL W WO CONTRAST W CAD Ian Ruiz MD [address] [place] [address] [place] [address] Phone: tel: fax: Referral ID Status Reason Start Date Expiration Date V isits Requested Visits Authorized [id number] Pending Review 10/30/2023 10/29/2024 1 1 Reason for Visit * Reason Onset Date Comments Results 10/27/2023 Breast Biopsy Encounter Details Date Type Department Care Team (Late st Contact Info) Description 10/27/2023 Telephone [facility] [place] [address] Lara Heredia, Clerical Staff Results (Breast Biopsy) Social History Tobacco Use Types Packs/Day Years [...] encounter Miscellaneous Notes * Telephone Encounter - Shahnaz Arndt RN - 10/30/2023 10:[address] James- HOSSEIN to call patient with results. Call to [facility]/ [phone], spoke with patient and worker/Mya. Pathology results: Left breast IDC, left axilla metastatic ductal carcinoma. Initial Education packet given: not given/results given via phone, will give at consult with Dr. Ruiz Patient verbalized understanding of information received: yes Patient scheduled with: Dr. Veto Ruiz 11/13/23 MRI: Breast MRI 11/06/23 Tumor Board referral placed: yes * Telephone Encounter - Lara Heredia Clerical Staff - 10/27/2023 1:44 PM EST Pathology is concordant per Results: A) Left IDC, grade 2; focal intermediate DCIS, B) Metastatic ductal carcinoma Recommends: surgical consult MRI: yes Pathology sent to: Slava White * Telephone Encounter - Yessica Greene RN - 10/27/2023 9:50 AM EST Attempted post biopsy call - received message that the number called was not answering - no voicemail set up to LVM. * Telephone Encounter - Lara Heredia Clerical Staff - 10/27/2023 8:55 AM EST Pathology report is pending. Patient had a left us core on 10/26/23. Her appointment for results is on 10/30/23 at 9:30 am. documented in this encounter Plan of Treatment Upcoming Encounters Date Type Department Care Team (Late st Contact Info) Description 09/11/2024 1:45 PM EST Office Visit [facility] [address] [place] [facility] [place] [address] Swapnil Lopez MD [address] [facility] [place] [address] 10/21/2024 2:00 PM EST Appointment [facility] MRI [address] [place] [address] Jacky Shirley MD [address] [place] [address] [place] [address] 10/23/2024 1:45 PM EST Appointment [facility] [address] [place], [place] [address] Olena Darby APRN 1 [facility] [place], [place] [id number] documented as of this encounter Goals Goal Patient Goal Type Associated Problems Recent Progress Patient-Stated? Author Maintain a healthy diet, exercise regularly and maintain an ideal body weight General No Linda Walden, RMA documented as of this encounter Results * MRI BREAST BILATERAL [...] ~ RECOMMENDATION: Surgical evaluation. Ian Ruiz MD IM MRI BREAST ORDERABLES F inal Result documented in this encounter Visit Diagnoses Diagnosis Invasive ductal carcinoma of breast, left (HCC)- Primary Invasive ductal carcinoma of breast, left (HCC) documented in this encounter Orders Appointment Requests Count Last Ordered Date Fi rst Ordered Date [facility] ONCBCN BASE TUMOR BOARD 1 10/30/2023 documented in this encounter Care Teams Shearing Machine Feeder Relationship Specialty Start Date End Date Damaso Black MD [address] [place] [address] PCP - General Family Medicine 11/22/22 Swapnil Lopez MD [address] [place] [id number] Internal Medicine-Gastroenterology 02/16/22 documented as of this encounter
--- OUTSIDE RECORDS SUMMARY | 2024-08-15 13:54 | XMS_ITS | Encounter Summary ---
Author Organization [facility] Address [address] [place] [address] Care Team Providers Care Suit Maker Name Role Phone Swapnil Lopez MD Unavailable [phone] Reason for Visit * Reason Comments Medication Refill Encounter Details Date Type Department Care Team (Late st Contact Info) Description 07/28/2022 Refill [facility] [address] [place] [address] Swapnil Lopez MD [address] [place] [address] Medication Refill Social History Tobacco Use Types Packs/Day Years Used Date Smoking Tobacco: Never Smokeless Tobacco: Never Alcohol Use Standard Drinks/Week Comments Yes 0 (1 standard drink = 0.6 oz pure alcohol) vodka; states that she drank before coming today Comments No Sex and Gender Information Value [...] 8 TABLETS PER DAY 240 Tablet 3 07/29/2022 2 documented in this encounter Plan of Treatment Upcoming Encounters Date Type Department Care Team (Late st Contact Info) Description 09/11/2024 1:45 PM EST Office Visit [facility] [address] [place] [address] Swapnil Lopez MD [address] [place] [address] 10/21/2024 2:00 PM EST Appointment [facility] [address] MRI [address] [place] [address] Jacky Shirley MD [address] [place] [address] [place] [address] 10/23/2024 1:45 PM EST Appointment [facility] [place] [address] Olena Darby APRN 1 [facility] [address] documented as of this encounter [...] TAKE 2 TABLETS BY MOUTH FOUR TIMES A DAY IF NEEDED. NO MORE THAN 8 TABLETS PER DAY 07/28/2022 07/29/2022 documented as of this encounter Care Teams Suit Maker Relationship Specialty Start Date End Date Swapnil Lopez MD [address] [place] [address] Internal Medicine-Gastroenterology 02/16/22 documented as of this encounter
--- OUTSIDE RECORDS SUMMARY | 2024-08-15 13:54 | XMS_ITS | Encounter Summary ---
Author Organization [facility] Address [address] [place] [address] Care Team Providers Care Layer Off Name Role Phone Swapnil Lopez MD Unavailable [phone] Damaso Black MD Primary Care Provider [phone] Reason for Visit * Reason Onset Date Comments Medication Question 11/25/2022 Encounter Details Date Type Department Care Team (Late st Contact Info) Description 11/25/2022 Telephone [facility] [address] [place] [address] Swapnil Lopez MD [address] [place] [address] Medication Question Social History Tobacco Use Types Packs/Day Years Used Date Smoking Tobacco: Never Smokeless Tobacco: Never Alcohol Use Standard Drinks/Week Comments Not Currently 0 (1 standard drink = 0.6 oz pur e alcohol) Comments No Sex and Gender Information Value Date Recorded Sex Assigned at Not on file Legal Sex Female 8:28 AM EDT Gender Identity Not on file Sexual Orientation Not on file COVID-19 Exposure Response Date Recorded In the last 10 days, have yo u been in contact with someone who was confirmed or suspected to have Coronavirus/COVID-19? No / Unsure 11/17/2022 11:27 AM EST documented as of this encounter Functional Status [...] encounter Miscellaneous Notes * Telephone Encounter - Stephanie Ruff RMA - 11/25/2022 4:07 PM EST please send into pharmacy i'm not able to escribe this thanks! * Telephone Encounter - Swapnil Lopez MD - 11/25/2022 4:04 PM EST OK to RF Lomotil * Telephone Encounter - Stephanie Ruff RMA - 11/25/2022 3:29 PM EST vm from pt. asking for refill of lomotil. If ok please send into pharmacy thanks! documented in this encounter Plan of Treatment Upcoming Encounters Date Type Department Care Team (Late st Contact Info) Description 09/11/2024 1:45 PM EST Office Visit [facility] [address] [place] [place] [address] Swapnil Lopez MD [address] [facility] [place] [address] 10/21/2024 2:00 PM EST Appointment [facility] [address] MRI [address] [place] [address] Jacky Shirley MD 1 [facility] [place] [address] 10/23/2024 1:45 PM EST Appointment [facility] [address] [place], [place] [id number] Olena Darby APRN [address] [place] [id number] documented as of this encounter Goals Goal Patient Goal Type Associated Problems Recent Progress Patient-Stated? Author Maintain a healthy diet, exercise regularly and maintain an ideal body weight General No Linda Walden, RMA documented as of this encounter Visit Diagnoses Not on filedocumented in this encounter Care Teams Layer Off Relationship Specialty Start Date End Date Damaso Black MD [address] [place] [address] PCP - General Family Medicine 11/22/22 Swapnil Lopez MD [address] [place] [address] Internal Medicine-Gastroenterology 02/16/22 documented as of this encounter
--- OUTSIDE RECORDS SUMMARY | 2024-08-15 13:54 | XMS_ITS | Encounter Summary ---
Author Organization [facility] Address [address] [place] [facility] [place] [address] Care Team Providers Care Refinery Process Engineer Name Role Phone Swapnil Lopez MD Unavailable [phone] Reason for Visit * Reason Onset Date Comments Biologics 03/14/2022 Encounter Details Date Type Department Care Team (Late st Contact Info) Description 03/14/2022 Telephone [facility] [address] [place] [facility] [place] [address] Trisha Blood RMA Biologics Social History Tobacco Use Types [...] encounter Miscellaneous Notes * Telephone Encounter - Swapnil Lopez MD - 03/14/2022 12:59 PM EDT Noted and agree * Telephone Encounter - Trisha Blood RMA - 03/14/2022 8:52 AM EDT pt lv that she wants to continue stelara as she feels good. documented in this encounter Plan of Treatment Upcoming Encounters Date Type Department Care Team (Late st Contact Info) Description 09/11/2024 1:45 PM EST Office Visit [facility] [address] [place] [address] Swapnil Lopez MD [address] [place] [address] 10/21/2024 2:[address] [facility] MRI [address] [place] [address] Jacky Shirley MD [address] [place] [address] [place] [address] 10/23/2024 1:45 PM EST Appointment [facility] [place] [address] Olena Darby APRN [address] [place] [address] [place] [address] documented as of this encounter Goals Goal Patient Goal Type Associated Problems Recent Progress Patient-Stated? Author Maintain a healthy diet, exercise regularly and maintain an ideal body weight General No Linda Walden, RMA documented as of this encounter Visit Diagnoses Not on filedocumented in this encounter Care Teams Refinery Process Engineer Relationship Specialty Start Date End Date Swapnil Lopez MD [address] [place] [phone] Internal Medicine-Gastroenterology 02/16/22 documented as of this encounter
--- OUTSIDE RECORDS SUMMARY | 2024-08-15 13:54 | XMS_ITS | Encounter Summary ---
Author Organization [facility] Address [address] [place] [address] Care Team Providers Care Credit Negotiator Name Role Phone Swapnil Lopez MD Unavailable [phone] Reason for Visit * Reason Comments Medication Refill Encounter Details Date Type Department Care Team (Late st Contact Info) Description 11/04/2022 Refill [facility] [address] [place] [address] Swapnil Lopez MD [address] [place] [address] Medication Refill Social History Tobacco [...] End Date loperamide (IMODIUM) 2 mg Oral Capsule TAKE 1 CAPSULE BY MOUTH EVERY 3 HOURS 720 Capsule 11/07/2022 documented in this encounter Plan of Treatment Upcoming Encounters Date Type Department Care Team (Late st Contact Info) Description 09/11/2024 1:45 PM EST Office Visit [facility] [address] [place] [address] Swapnil Lopez MD [address] [place] [address] 10/21/2024 2:00 PM EST Appointment [facility] MRI [address] [place] [address] Jacky Shirley MD [address] [place] [address] [place] [address] 10/23/2024 1:45 PM EST Appointment [facility] [place] [address] Olena Darby APRN [address] [place] [address] [place] [address] documented as of this encounter [...] Da te loperamide (IMODIUM) 2 mg Oral Capsule Take 1 Capsule by mouth every 3 hours. 02/21/2022 11/07/2022 documented as of this encounter Care Teams Credit Negotiator Relationship Specialty Start Date End Date Swapnil Lopez MD [address] [place] [phone] Internal Medicine-Gastroenterology 02/16/22 documented as of this encounter
--- OUTSIDE RECORDS SUMMARY | 2024-08-15 13:54 | XMS_ITS | Encounter Summary ---
Author Organization [facility]logy Address [address] [place] [address] Care Team Providers Care Conference Director Name Role Phone Swapnil Lopez MD Unavailable [phone] Damaso Black MD Primary Care Provider [phone] Reason for Visit * Reason Comments Crohn's Disease Encounter Details Date Type Department Care Team (Late st Contact Info) Description 11/22/2022 2:00 PM EST Office Visit [facility] [address] [place] [address] Zeinab Glass APRN [address] [place] [address] Crohn's disease of both small [...] AM EST documented as of this encounter Last Filed Vital Signs Vital Sign Reading Time Taken Comments Blood Pressure 110/67 11/22/2022 2:02 PM EST Pulse 74 11/22/2022 2:02 PM EST Temperature 36.5 ??C (97.7 ??F) 11/22/2022 2:02 PM ES T Respiratory Rate 12 11/22/2022 2:02 PM EST Oxygen Saturation - - Inhaled Oxygen Concentration - - Weight 63 kg (139 lb) 11/22/2022 2:02 PM EST Height 157.5 cm (5' 2 ) 11/22/2022 2:02 PM EST Body Mass Index 25.42 11/22/2022 2:02 PM EST documented in this encounter Functional Status [...] Date loperamide (IMODIUM) 2 mg Oral Capsule Take 1 Capsule by mouth every 3 hours. 720 Capsule 11/22/2022 3 diphenoxylate-atro pine (LOMOTIL) 2.5-0.025 mg Oral TabletIndications: Crohn's disease of both small and large intestine without complication (HCC) TAKE 2 TABLETS BY MOUTH FOUR TIMES DAILY NEEDED. NO MORE THAN 8 TABLETS PER DAY 240 Tablet 3 11/22/2022 3 documented in this encounter Progress Notes * Zeinab Glass APRN - 11/22/2022 2:00 PM EST Images from the original note were not included. Subjective Subjective: Patient ID: Ms. Sy is a 62 y.o. female was referred by No ref. provider found here for No chief complaint on file. HPI: HPI No outpatient medications have been marked as taking for the 11/22/22 encounter (Appointment) with Zeinab Glass APRN. EGD 06/25/[address] Lopez. [facility] of severe Crohn's disease associated with perianal disease. Her last colonoscopy was done at in December 2019 which showed pancolitis and sever terminal ileitis. She was managed with Entyvio since December 2019. She had done much better and had control of her diarrhea with lomotil and Entyvio. Unfortunately she developed Covid and missed several doses of her Entyvio and last April was having more serious issues with diarrhea and required a prednisone taper and burst. At anoffice visit in May she was reporting diarrhea after Entyvio infusions with more than 20 loose stools/day until she would take prednisone. Also increased drainage from fistula. A repeat colonoscopy was recommended to evaluate the extent of her disease and check for response to Entyvio as well ascolon cancer screening. However this was not completed. An MRI also ordered to evaluate for abscesssince she had increased drainage from her fistula on exam and this was not completed either.Seamus pr eviously received two infusions of STELARA, but unfortunately, had severe diarrhea associated with both. It is not clear if it is related to the STELARA, but she is not interested in continuing that treatment. She actually does her best with tramadol, Lomotil, and occasionally a dose of prednisone.Did not tolerate budesonide as it caused her diarrhea. She gets her tramadol through her pain doctor. She is seen today for crohn's follow up and med refill. Pt reports that she is taking lomotil, prednisone PRN for fistula, tramadol, and rarely takes Zofran. Reports that regimen controls her Crohn's disease. Takes Imodium until she gets a refill of Lomotil. Refuses to have a repeat colonoscopy. Pt states, she will only get another colonoscopy if I'm really bad and in the hospital again . Denies heartburn or dysphagia. No signs of bleeding. Weight stable. No other new GI complaints today. Past Medical History: Diagnosis Date ??? Anemia ??? Cancer (HCC) ??? Crohn disease (HCC) ??? Encounter for blood transfusion ??? Lab test positive for detection of COVID-19 virus 02/12/2021 02/16/21=pt stated that she tested COVID positive on 02/12/21 @ [facility], instructed pt to notify Dr Lantigua's office to reschedule surgery Past Surgical History: Procedure Laterality Date ??? ANTERIOR COMPARTMENT DECOMPRESSION Left 04/15/2021 LEFT DEQUERVAINS RELEASE ; Surgeon: Henry Lantigua MD; Location: [facility]; Service: Hand ??? SECTION x2 ??? COLON SURGERY x11 crohns ??? COLONOSCOPY ??? COLOSTOMY ??? ILEOSTOMY OR JEJUNOSTOMY ??? UPPER GASTROINTESTINAL ENDOSCOPY N/A 06/25/2016 ESOPHAGOGASTRODUODENOSCOPY with biopsy with conscious sedation; Surgeon: Christopher Matthews MD PHD; Location: [facility]; Service: Endoscopy Family History Problem Relation Age of Onset ??? Heart Disease Father Social History Tobacco Use ??? Smoking status: Never ??? Smokeless tobacco: Never Substance Use Topics ??? Alcohol use: Yes Comment: vodka; states that she drank before coming today ??? Drug use: No Allergies Allergen Reactions ??? Ywoma-Yveub-8-Jnk-Isj-Tbzyie Hives ??? Sulfa (Sulfonamide Antibiotics) There is no immunization history on file for this patient. Patients medications and past medical, family and social histories were reviewed and updated. Therewere no changes except as noted. Review of System: Review of Systems Constitutional: Negative. HENT: Negative. Eyes: Negative. Respiratory: Negative. Cardiovascular: Negative. Gastrointestinal: Negative. Negative for abdominal pain (no pain with tramadol), blood in stool, constipation, diarrhea, nausea and vomiting. Endocrine: Negative. Genitourinary: Negative. Musculoskeletal: Negative. Skin: Negative. Allergic/Immunologic: Negative. Neurological: Negative. Hematological: Negative. Psychiatric/Behavioral: Negative. Objective Objective: There were no vitals filed for this visit.There is no height or weight on file to calculate BMI. Physical Exam: Physical Exam Vitals and nursing note reviewed. Constitutional: General: She is not in acute distress. Appearance: Normal appearance. She is not ill-appearing. HENT: Head: Normocephalic and atraumatic. Right Ear: External ear normal. Left Ear: External ear normal. Nose: Nose normal. Mouth/Throat: Mouth: Mucous membranes are moist. Pharynx: Oropharynx is clear. Eyes: General: No scleral icterus. Extraocular Movements: Extraocular movements intact. Conjunctiva/sclera: Conjunctivae normal. Pupils: Pupils are equal, round, and reactive to light. Cardiovascular: Rate and Rhythm: Normal rate and regular rhythm. Pulses: Normal pulses. Heart sounds: Normal heart sounds. Pulmonary: Effort: Pulmonary effort is normal. Breath sounds: Normal breath sounds. Abdominal: General: Bowel sounds are normal. There is no distension. Palpations: Abdomen is soft. There is no mass. Tenderness: There is no abdominal tenderness. There is no guarding or rebound. Musculoskeletal: General: No swelling. Normal range of motion. Cervical back: Normal range of motion and neck supple. Right lower leg: No edema. Left lower leg: No edema. Skin: General: Skin is warm and dry. Capillary Refill: Capillary refill takes less than 2 seconds. Coloration: Skin is not jaundiced. Findings: No rash. Neurological: General: No focal deficit present. Mental Status: She is alert and oriented to person, place, and time. Mental status is at baseline. Psychiatric: Mood and Affect: Mood normal. Behavior: Behavior normal. Thought Content: Thought content normal. Judgment: Judgment normal. Assessment and Plan: Diagnoses and all orders for this visit: Crohn's disease of both small and large intestine without complication (HCC) (Chronic) - diphenoxylate-atropine (LOMOTIL) 2.5-0.025 mg Oral Tablet; TAKE 2 TABLETS BY MOUTH FOUR TIMES DAILY NEEDED. NO MORE THAN 8 TABLETS PER DAY Dispense: 240 Tablet; Refill: 3 Other orders - loperamide (IMODIUM) 2 mg Oral Capsule; Take 1 Capsule by mouth every 3 hours. Dispense: 720 Capsule; Refill: 0 Crohn's disease -last colonoscopy in December 2019 at -refuses to get another colonoscopy even after anticipatory guidance provided. Pt states, she willonly get another colonoscopy if I'm really bad and in the hospital again . -Reports diarrhea with Entyvio and Stelara in the past. Stopped taking. -Taking lomotil, prednisone PRN for fistula, tramadol, and rarely takes Zofran. She gets her tramadol through her pain doctor. -Lomotil and Imodium refilled at this visit No follow-ups on file. Zeinab Glass APRN Cosigned by Swapnil Lopez MD at 11/22/2022 5:00 PM EST documented in this encounter Plan of Treatment Upcoming Encounters Date Type Department Care Team (Late st Contact Info) Description 09/11/2024 1:45 PM EST Office Visit [facility] [address] [place] [facility] [address] Swapnil Lopez MD [address] [place] [address] 10/21/2024 2:00 PM EST Appointment [facility] MRI [address] [place] [address] Jacky Shirley MD [address] [place] [address] [place] [address] 10/23/2024 1:45 PM EST Appointment [facility] [place] [address] Olena Darby APRN [address] [place] [address] [place] [address] documented as of this encounter [...] te loperamide (IMODIUM) 2 mg Oral Capsule TAKE 1 CAPSULE BY MOUTH EVERY 3 HOURS 11/07/2022 11/22/2022 diphenoxylate-atropine (LOMOTIL) 2.5-0.025 mg Oral TabletIndications:Crohn's disease of both small and large intestine without complication (HCC) TAKE 2 TABLETS BY MOUTH FOUR TIMES DAILY NEEDED. NO MORE THAN 8 TABLETS PER DAY Reorder 08/10/2022 11/22/2022 documented as of this encounter Care Teams Conference Director Relationship Specialty Start Date End Date Damaso Black MD [address] [facility] [address] [place] [address] PCP - General Family Medicine 11/22/22 Swapnil Lopez MD [address] [place] [phone] Internal Medicine-Gastroenterology 02/16/22 documented as of this encounter
--- OUTSIDE RECORDS SUMMARY | 2024-08-15 13:54 | XMS_ITS | Encounter Summary ---
Author Organization [facility] Gastroente rology Address [address] [place] [address] Care Team Providers Care Bell Valet Name Role Phone Swapnil Lopez MD Unavailable [phone] Reason for Visit * Reason Onset Date Comments Medication Refill 04/07/2022 Encounter Details Date Type Department Care Team (Late st Contact Info) Description 04/07/2022 Refill [facility] [address] [place] [address] Swapnil Lopez MD [address] [place] [address] Medication Refill Social History Tobacco [...] PM EST Office Visit [facility] [address] [place] [facility] [place] [address] Swapnil Lopez MD [address] [place] [facility] [address] 10/21/2024 2:00 PM EST Appointment [facility] MRI [address] [place] [address] Jacky Shirley MD [address] [place] [address] [place] [address] 10/23/2024 1:45 PM EST Appointment [facility] [place] [address] Olena Darby APRN [address] [place] [address] documented as of this encounter Goals Goal Patient Goal Type Associated Problems Recent Progress Patient-Stated? Author Maintain a healthy diet, exercise regularly and maintain an ideal body weight General No Linda Walden RMA documented as of this encounter Visit Diagnoses Not on filedocumented in this encounter Care Teams Bell Valet Relationship Specialty Start Date End Date Swapnil Lopez MD [address] [place] [address] Internal Medicine-Gastroenterology 02/16/22 documented as of this encounter
--- OUTSIDE RECORDS SUMMARY | 2024-08-15 13:54 | XMS_ITS | Encounter Summary ---
Author Organization [facility] Gastroente rology Address [address] [place] [address] Care Team Providers Care Highway Administrative Engineer Name Role Phone Swapnil Lopez MD Unavailable [phone] Reason for Visit * Reason Comments Crohn's Disease Encounter Details Date Type Department Care Team (Late st Contact Info) Description 05/16/2022 3:00 PM EDT Office Visit [facility] [address] [place] [address] Piedad Patino APRN [address] [place] [address] Crohn's disease of colon with complication (HCC) (Primary Dx) Social History Tobacco [...] Sign Reading Time Taken Comments Blood Pressure 138/73 05/16/2022 2:56 PM EDT Pulse 73 05/16/2022 2:56 PM EDT Temperature 36.4 ??C (97.5 ??F) 05/16/2022 2:56 PM ED T Respiratory Rate - - Oxygen Saturation - - Inhaled Oxygen Concentration - - Weight 62.1 kg (137 lb) 05/16/2022 2:56 PM EDT Height 157.5 cm (5' 2 ) 05/16/2022 2:56 PM EDT Body Mass Index 25.06 05/16/2022 2:56 PM EDT documented in this encounter Functional [...] documented in this encounter Progress Notes * Piedad Patino APRN - 05/16/2022 3:00 PM EDT Images from the original note were not included. Subjective Subjective: Patient ID: Marleni Way is a 61 y.o. female. Chief Complaint Patient presents with ??? Crohn's Disease Patient is here today for her Stelara teach. She was informed of potential side effects of Stelara including upper respiratory symptoms, headache, injection site reactions, rash and nausea. She was informed of potentially serious reactions including allergic reactions, infections, heart failure, nervous system problems, lupus-like syndrome, hepatitis B reactivation and lymphoma. She was cautionedshould she develop severe shortness of breath following an injection she should call 911. She was instructed to avoid live vaccines. She was informed that she should be getting a flu vaccine annuallyand a pneumonia vaccine every 5 years. She was instructed that her Stelara may need to be held if she should develop any signs of infection and if she has any questions about whether to give or hold her Stelara to not hesitate to call our office. She was informed of proper medication storage and needle disposal. She was advised to enroll in [employer] program for injection reminders for nursing assistance. Sharps container was provided to her by [facility] [employer]. She demonstrated proper injection technique of 1 subcutaneous injection of her Stelara. She knows if she should have any questions or concerns to not hesitate to call our office. She knows that she will need a CBC and hepatic panel every 3 months while on Stelara. She knows to follow-up with the doctor in 3 months. Patients past medical, family and social histories were reviewed and updated. There were no changesexcept as noted. Review of Systems Objective Objective: Vitals: 05/16/22 1456 BP: 138/73 BP Location: Left arm Patient Position: Sitting Pulse: 73 Temp: 97.5 ??F (36.4 ??C) TempSrc: Temporal Weight: 137 lb (62.1 kg) Height: 5' 2 (1.575 m) Body mass index is 25.06 kg/m??. Physical Exam Assessment and Plan: Diagnoses and all orders for this visit: Crohn's disease of colon with complication (HCC) (Chronic) Seamus was here today for her Stelara teach. She demonstrated proper technique of 1 subcutaneous injection of her Stelara. She understands the common and serious side effects of the medication and howto proceed accordingly. She understands she needs to have laboratory studies drawn every 3 months and is due now. She has a follow-up with Dr. Lopez already scheduled. No follow-ups on file. Cosigned by Swapnil Lopez MD at 05/17/2022 7:05 AM EDT documented in this encounter Plan of Treatment Upcoming Encounters Date Type Department Care Team (Late st Contact Info) Description 09/11/2024 1:45 PM EST Office Visit [facility] [address] [facility] [place] [address] Swapnil Lopez MD [address] [place] [address] 10/21/2024 2:00 PM EST Appointment [facility] [place] MRI [address] [place] [address] Jacky Shirley MD 1 [facility] [place] [address] 10/23/2024 1:45 PM EST Appointment [facility] [place] [address] Olena Darby APRN [address] [place] [address] [facility] [place], [place] [id number] documented as of this encounter Goals Goal Patient Goal Type Associated Problems Recent Progress Patient-Stated? Author Maintain a healthy diet, exercise regularly and maintain an ideal body weight General No Linda Walden, RMA documented as of this encounter Visit Diagnoses Diagnosis Crohn's disease of colon with complication (HCC)- Primary documented in this encounter Care Teams Highway Administrative Engineer Relationship Specialty Start Date End Date Swapnil Lopez MD [address] [place] [address] Internal Medicine-Gastroenterology 02/16/22 documented as of this encounter
--- OUTSIDE RECORDS SUMMARY | 2024-08-15 13:54 | XMS_ITS | Encounter Summary ---
Author Organization [facility] [place] [address] Care Team Providers Care Spice Room Worker Name Role Phone Swapnil Lopez MD Unavailable [phone] Encounter Details Date Type Department Care Team (Latest Contact Info) Description 11/17/2022 Travel Social History Tobacco Use Types Packs/Day [...] PM EST Office Visit [facility] [address] [place] [address] Swapnil Lopez MD [address] [place] [address] 10/21/2024 2:00 PM EST Appointment [facility] MRI [address] [place] [address] Jacky Shirley MD [address] [place] [id number] 10/23/2024 1:45 PM EST Appointment [facility] [place] [place] [address] Olena Darby APRN [address] [place] [address] documented as of this encounter Goals Goal Patient Goal Type Associated Problems Recent Progress Patient-Stated? Author Maintain a healthy diet, exercise regularly and maintain an ideal body weight General No Linda Walden RMA documented as of this encounter Visit Diagnoses Not on filedocumented in this encounter Care Teams Spice Room Worker Relationship Specialty Start Date End Date Swapnil Lopez MD [address] [place] [address] Internal Medicine-Gastroenterology 02/16/22 documented as of this encounter
--- OUTSIDE RECORDS SUMMARY | 2024-08-15 13:54 | XMS_ITS | Encounter Summary ---
Author Organization [facility] Gastroente rology Address [address] [place] [facility] [address] Care Team Providers Care Property Disposal Manager Name Role Phone Swapnil Lopez MD Unavailable [phone] Reason for Visit * Reason Comments Medication Refill Encounter Details Date Type Department Care Team (Late st Contact Info) Description 03/08/2022 Refill [facility] [address] [place] [address] Swapnil Lopez MD [address] [place] [address] Medication Refill Social History Tobacco [...] Refills Last Filled Start Date End Date ondansetron (ZOFRAN) 4 mg Oral Tablet TAKE 1 TABLET BY MOUTH EVERY 6 HOURS NEEDED FOR NAUSEA 30 Tablet 5 03/08/2022 07/28/2022 documented in this encounter Plan of Treatment Upcoming Encounters Date Type Department Care Team (Late st Contact Info) Description 09/11/2024 1:45 PM EST Office Visit [facility] [address] [place] [address] Swapnil Lopez MD [address] [place] [address] 10/21/2024 2:00 PM EST Appointment [facility] [address] [place] [address] Jacky Shirley MD [address] [place] [address] [place] [address] 10/23/2024 1:45 PM EST Appointment [facility] [place] [address] Olena Darby APRN [address] [place] [address] [place] [address] documented as of this encounter [...] te ondansetron (ZOFRAN) 4 mg Oral Tablet Take 4 mg by mouth once. 03/08/2022 documented as of this encounter Care Teams Property Disposal Manager Relationship Specialty Start Date End Date Swapnil Lopez MD [address] [place] [phone] Internal Medicine-Gastroenterology 02/16/22 documented as of this encounter
--- OUTSIDE RECORDS SUMMARY | 2024-08-15 13:54 | XMS_ITS | Encounter Summary ---
Author Organization [facility] Gastroente rology Address [address] [place] [address] Care Team Providers Care Senior Abap Developer Name Role Phone Swapnil Lopez MD Unavailable [phone] Reason for Visit * Reason Comments Medication Refill Encounter Details Date Type Department Care Team (Late st Contact Info) Description 03/05/2022 Refill [facility] [address] [place] [address] Swapnil Lopez MD [address] [place] [address] Medication Refill Social History Tobacco [...] Date predniSONE (DELTASONE) 10 mg Oral Tablet TAKE 3 TABLETS BY MOUTH EVERY MORNING FOR 2 WEEKS THEN 2 TABLET FOR 2 WEEKS THEN 1 TABLET FOR 2 WEEKS THEN 1/2 TABLET FOR 2 WEEKS THEN STOP 112 Tablet 03/07/2022 2 documented in this encounter Plan of Treatment Upcoming Encounters Date Type Department Care Team (Late st Contact Info) Description 09/11/2024 1:45 PM EST Office Visit [facility] [address] [place] [address] Swapnil Lopez MD [address] [place] [address] 10/21/2024 2:00 PM EST Appointment [facility] MRI [address] [place] [address] Jacky Shirley MD 1 [facility] [address] 10/23/2024 1:45 PM EST Appointment [facility] [place] [address] Olena Dabry APRN 1 [facility] [place] [address] documented as of this encounter Goals Goal Patient Goal Type Associated Problems Recent Progress Patient-Stated? Author Maintain a healthy diet, exercise regularly and maintain an ideal body weight General Linda Perez, RMA documented as of this encounter Visit Diagnoses Not on filedocumented in this encounter Discontinued Medications Medication Sig Discontinue Reason Start Date End Da te predniSONE (DELTASONE) 10 mg Oral TabletIndications:Crohn' s disease Take 10 mg by mouth 3 times daily. Indications: Crohn's disease 03/07/2022 documented as of this encounter Care Teams Senior Abap Developer Relationship Specialty Start Date End Date Swapnil Lopez MD [address] [place] [phone] Internal Medicine-Gastroenterology 02/16/22 documented as of this encounter
--- OUTSIDE RECORDS SUMMARY | 2024-08-15 13:54 | XMS_ITS | Encounter Summary ---
Author Organization [facility] Gastroente rology Address [address] [place] [address] Care Team Providers Care Nail Cutter Name Role Phone Swapnil Lopez MD Unavailable [phone] Damaso Black MD Primary Care Provider [phone] Reason for Visit * Reason Comments Medication Refill Encounter Details Date Type Department Care Team (Late st Contact Info) Description 03/08/2023 Refill [facility] [address] [place] [address] Swapnil Lopez MD [address] [place] [address] Medication Refill Social History Tobacco [...] BY MOUTH EVERY 3 HOURS 200 Capsule 03/09/2023 documented in this encounter Plan of Treatment Upcoming Encounters Date Type Department Care Team (Late st Contact Info) Description 09/11/2024 1:45 PM EST Office Visit [facility] [address] [place] [address] Swapnil Lopez MD [address] [place] [address] 10/21/2024 2:00 PM EST Appointment [facility] [address] [place] [address] Jacky Shirley MD [address] [place] [address] [place] [address] 10/23/2024 1:45 PM EST Appointment [facility] [place] [address] Olena Darby APRN [address] [place] [address] [place] [address] documented as of this encounter [...] 1 CAPSULE BY MOUTH EVERY 3 HOURS 02/13/2023 03/09/2023 documented as of this encounter Care Teams Nail Cutter Relationship Specialty Start Date End Date Damaso Black MD 100[address] [facility] [address] [place] [address] PCP - General Family Medicine 11/22/22 Swapnil Lopez MD [address] [place] [phone] Internal Medicine-Gastroenterology 02/16/22 documented as of this encounter
--- OUTSIDE RECORDS SUMMARY | 2024-08-15 13:54 | XMS_ITS | Encounter Summary ---
Author Organization [facility] Gastroente rology Address [address] [place] [facility] [place] [address] Care Team Providers Care Iv Technician Name Role Phone Swapnil Lopez MD Unavailable [phone] Reason for Visit * Reason Onset Date Comments Follow-up 03/03/2022 Encounter Details Date Type Department Care Team (Late st Contact Info) Description 03/03/2022 Telephone [facility] [address] [place] [facility] [address] Trisha Blood RMA Follow-up Social History Tobacco Use Types Packs/Day [...] encounter Miscellaneous Notes * Telephone Encounter - Jill Nash, Clerical Staff - 03/03/2022 9:13 AM EDT Lvm to schedule. * Telephone Encounter - Trisha Blood RMA - 03/03/2022 8:55 AM EDT please call pt & sched a christiano w/dr lopez specifically. documented in this encounter Plan of Treatment Upcoming Encounters Date Type Department Care Team (Late st Contact Info) Description 09/11/2024 1:45 PM EST Office Visit [facility] [address] [place] [address] Swapnil Lopez MD [address] [place] [address] 10/21/2024 2:[address] [facility] MRI [address] [place] [address] Jacky Shirley MD [address] [place] [address] [place] [address] 10/23/2024 1:45 PM EST Appointment [facility] [place] [place] [address] Olena Darby APRN [address] [place] [address] [place] [address] documented as of this encounter Goals Goal Patient Goal Type Associated Problems Recent Progress Patient-Stated? Author Maintain a healthy diet, exercise regularly and maintain an ideal body weight General No Linda Walden, RMA documented as of this encounter Visit Diagnoses Not on filedocumented in this encounter Care Teams Iv Technician Relationship Specialty Start Date End Date Swapnil Lopez MD [address] [place] [phone] Internal Medicine-Gastroenterology 02/16/22 documented as of this encounter
--- OUTSIDE RECORDS SUMMARY | 2024-08-15 13:54 | XMS_ITS | Encounter Summary ---
Author Organization [facility] Gastroente rology Address [address] [place] [facility] [place] [address] Care Team Providers Care Steam Train Driver Name Role Phone Swapnil Lopez MD Unavailable [phone] Reason for Visit * Reason Comments Medication Refill Encounter Details Date Type Department Care Team (Late st Contact Info) Description 04/19/2022 Refill [facility] [address] [place] [address] Swapnil Lopez MD [address] [place] [address] Medication Refill Social History Tobacco [...] and large intestine without complication (HCC) TAKE 4 TABLETS BY MOUTH THREE TIMES DAILY 360 Tablet 3 04/20/2022 2 documented in this encounter Miscellaneous Notes * Addendum Note - Mile Jiménez RMA - 04/22/2022 2:30 PM EDTAddended by: MILE JIMÉNEZ on: 04/22/2022 02:30 PM Modules accepted: Orders documented in this encounter Plan of Treatment Upcoming Encounters Date Type Department Care Team (Late st Contact Info) Description 09/11/2024 1:45 PM EST Office Visit [facility] [address] [place] [facility] [place] [address] Swapnil Lopez MD [address] [facility] [address] 10/21/2024 2:[address] [facility] [address] [place], [place] [id number] Jacky Shirley MD 1 [facility] [place], [place] [id number] 10/23/2024 1:45 PM EST Appointment [facility] [address] [place], [place] [id number] Olena Darby APRN 1 [facility] [place], [place] [id number] documented as of this encounter Goals Goal [...] Da te diphenoxylate-atropine (LOMOTIL) 2.5-0.025 mg Oral TabletIndications:Crohn' s disease of both small and large intestine without complication (HCC) 4 tablets 3 times daily as needed for 30 days for diarrhea 02/16/2022 04/20/2022 documented as of this encounter Care Teams Steam Train Driver Relationship Specialty Start Date End Date Swapnil Lopez MD [address] [place] [phone] Internal Medicine-Gastroenterology 02/16/22 documented as of this encounter
--- OUTSIDE RECORDS SUMMARY | 2024-08-15 13:54 | XMS_ITS | Encounter Summary ---
Author Organization [facility] Gastroente rology Address [address] [place] [address] Care Team Providers Care Hot Baller Name Role Phone Swapnil Lopez MD Unavailable [phone] Damaso Black MD Primary Care Provider [phone] Reason for Visit * Reason Comments Medication Refill Encounter Details Date Type Department Care Team (Late st Contact Info) Description 02/10/2023 Refill [facility] [address] [place] [address] Zeinab Glass APRN [address] [place] [address] Medication Refill Social History Tobacco [...] BY MOUTH EVERY 3 HOURS 720 Capsule 02/13/2023 documented in this encounter Plan of Treatment Upcoming Encounters Date Type Department Care Team (Late st Contact Info) Description 09/11/2024 1:45 PM EST Office Visit [facility] [address] [place] [address] Swapnil Lopez MD [address] [place] [address] 10/21/2024 2:00 PM EST Appointment [facility] MRI [address] [place] [address] Jacky Shirley MD [address] [place] [address] [place] [address] 10/23/2024 1:45 PM EST Appointment [facility] [place] [address] Olena Darby APRN [address] [place] [address] [place] [address] documented as of this encounter [...] 1 Capsule by mouth every 3 hours. 11/22/2022 02/13/2023 documented as of this encounter Care Teams Hot Baller Relationship Specialty Start Date End Date Damaso Black MD 100[address] [facility] [address] [place] [address] PCP - General Family Medicine 11/22/22 Swapnil Lopez MD [address] [place] [phone] Internal Medicine-Gastroenterology 02/16/22 documented as of this encounter
--- OUTSIDE RECORDS SUMMARY | 2024-08-15 13:54 | XMS_ITS | Encounter Summary ---
Author Organization [facility] Gastroente rology Address [address] [place] [facility] [place] [address] Care Team Providers Care Cnc Programmer Name Role Phone Swapnil Lopez MD Unavailable [phone] Reason for Visit * Reason Onset Date Comments Follow-up 04/25/2022 Encounter Details Date Type Department Care Team (Late st Contact Info) Description 04/25/2022 Telephone [facility] [address] [place] [address] Trisha Blood RMA Follow-up Social History [...] Encounter - Jill Nash, Clerical Staff - 04/26/2022 8:54 AM EDT Lvm for patient to call back and get scheduled for teach appointment and follow up. * Telephone Encounter - Trisha Blood RMA - 04/25/2022 4:50 PM EDT please call pt to sched her stelara teach appt. she gets dlv on 04/28 so the appt needs to be bhakti after that. pt also wants to sched her 3 month fu w/dr lopez the same day as she lives 2 hrs away. documented in this encounter Plan of Treatment Upcoming Encounters Date Type Department Care Team (Late st Contact Info) Description 09/11/2024 1:45 PM EST Office Visit [facility] [address] [place] [facility] [place] [address] Swapnil Lopez MD [address] [facility] [place] [address] 10/21/2024 2:00 PM EST Appointment [facility] [address] [place], [place] [address] Jacky Shirley MD 1 [facility] [place] [address] 10/23/2024 1:45 PM EST Appointment [facility] [place] [address] Olena Darby APRN [address] [place] [address] [facility] [place], [place] [id number] documented as of this encounter Goals Goal Patient Goal Type Associated Problems Recent Progress Patient-Stated? Author Maintain a healthy diet, exercise regularly and maintain an ideal body weight General No Linda Walden, RMA documented as of this encounter Visit Diagnoses Not on filedocumented in this encounter Care Teams Cnc Programmer Relationship Specialty Start Date End Date Swapnil Lopez MD [address] [place] [phone] Internal Medicine-Gastroenterology 02/16/22 documented as of this encounter
--- OUTSIDE RECORDS SUMMARY | 2024-08-15 13:54 | XMS_ITS | Encounter Summary ---
Author Organization [facility] [address] Care Team Providers Care Violent Crimes Detective Name Role Phone Swapnil Lopez MD Unavailable [phone] Encounter Details Date Type Department Care Team (Latest Contact Info) Description 11/12/2022 Travel Social History Tobacco Use Types Packs/Day [...] suspected to have Coronavirus/COVID-19? No / Unsure 11/12/2022 11:09 AM EST documented as of this encounter [...] PM EST Office Visit [facility] [address] [place] [address] Swapnil Lopez MD [address] [place] [address] 10/21/2024 2:00 PM EST Appointment [facility] MRI [address] [place] [address] Jacky Shirley MD [address] [place] [id number] 10/23/2024 1:45 PM EST Appointment [facility] [place] [address] Olena Darby APRN [address] [place] [address] documented as of this encounter Goals Goal Patient Goal Type Associated Problems Recent Progress Patient-Stated? Author Maintain a healthy diet, exercise regularly and maintain an ideal body weight General No Linda Walden RMA documented as of this encounter Visit Diagnoses Not on filedocumented in this encounter Care Teams Violent Crimes Detective Relationship Specialty Start Date End Date Swapnil Lopez MD [address] [place] [address] Internal Medicine-Gastroenterology 02/16/22 documented as of this encounter
--- OUTSIDE RECORDS SUMMARY | 2024-08-15 13:54 | XMS_ITS | Encounter Summary ---
Author Organization [facility] G[facility]ente [facility]logy Address [address] [place] [address] Care Team Providers Care Cellar Supervisor Name Role Phone Swapnil Lopez MD Unavailable [phone] Reason for Visit * Reason Onset Date Comments Medication Refill 07/29/2022 Encounter Details Date Type Department Care Team (Late st Contact Info) Description 07/29/2022 Refill [facility] [address] [place] [address] Swapnil Lopez MD [address] [place] [address] Medication Refill Social History Tobacco [...] Date Author No 09/05/2017 11:13 AM EST aGbby Mercedes RMA documented in this encounter Plan of Treatment Upcoming Encounters Date Type Department Care Team (Late st Contact Info) Description 09/11/2024 1:45 PM EST Office Visit [facility] [address] [place] [facility] [address] Swapnil Lopez MD [address] [facility] [place] [address] 10/21/2024 2:00 PM EST Appointment [facility] MRI [address] [place] [address] Jacky Shirley MD [address] [place] [address] [place] [address] 10/23/2024 1:45 PM EST Appointment [facility] [place] [address] Olena Darby APRN [address] [place] [address] documented as of this encounter Goals Goal Patient Goal Type Associated Problems Recent Progress Patient-Stated? Author Maintain a healthy diet, exercise regularly and maintain an ideal body weight General No Linda Walden RMA documented as of this encounter Visit Diagnoses Not on filedocumented in this encounter Care Teams Cellar Supervisor Relationship Specialty Start Date End Date Swapnil Lopez MD [address] [place] [address] Internal Medicine-Gastroenterology 02/16/22 documented as of this encounter
--- OUTSIDE RECORDS SUMMARY | 2024-08-15 13:54 | XMS_ITS | Encounter Summary ---
Author Organization [facility]log[facility] Address [address] [place] [address] Care Team Providers Care Admissions Assistant Name Role Phone Swapnil Lopez MD Unavailable [phone] Reason for Visit * Reason Onset Date Comments Medication Refill 08/10/2022 Encounter Details Date Type Department Care Team (Late st Contact Info) Description 08/10/2022 Refill [facility] [address] [place] [address] Swapnil Lopez MD [address] [place] [address] Medication Refill Social History Tobacco [...] 8 TABLETS PER DAY 240 Tablet 3 08/10/2022 3 documented in this encounter Plan of Treatment Upcoming Encounters Date Type Department Care Team (Late st Contact Info) Description 09/11/2024 1:45 PM EST Office Visit [facility] [address] [place] [address] Swapnil Lopez MD [address] [place] [address] 10/21/2024 2:00 PM EST Appointment [facility] MRI [address] [place] [address] Jacky Shirley MD [address] [place] [address] [place] [address] 10/23/2024 1:45 PM EST Appointment [place] [address] Olena Darby APRN [address] [facility] [place] [address] documented as of this encounter [...] MORE THAN 8 TABLETS PER DAY Reorder 08/03/2022 08/10/2022 documented as of this encounter Care Teams Admissions Assistant Relationship Specialty Start Date End Date Swapnil Lopez MD [address] [place] [phone] Internal Medicine-Gastroenterology 02/16/22 documented as of this encounter
--- OUTSIDE RECORDS SUMMARY | 2024-08-15 13:54 | XMS_ITS | Encounter Summary ---
Author Organization [facility]astroente rology Address [address] [place] [address] Care Team Providers Care Barrel Rifler Button Name Role Phone Swapnil Lopez MD Unavailable [phone] Reason for Visit * Reason Comments Crohn's Disease Encounter Details Date Type Department Care Team (Late st Contact Info) Description 07/28/2022 2:00 PM EDT Office Visit [facility] [address] [place] [address] Swapnil Lopez MD [address] [place] [address] Crohn's disease of colon with complication (HCC) (Primary Dx); Crohn's disease of both small and large intestine without complication (HCC) Social History Tobacco Use Types Packs/Day Years Used Date Smoking Tobacco: Never Smokeless Tobacco: Never Tobacco Cessation:Counseling Given: Not Answered Alcohol Use Standard Drinks/Week Comments Yes 0 [...] Sign Reading Time Taken Comments Blood Pressure 165/95 07/28/2022 2:23 PM EDT Pulse 74 07/28/2022 2:23 PM EDT Temperature 36.3 ??C (97.4 ??F) 07/28/2022 2:23 PM ED T Respiratory Rate 14 07/28/2022 2:23 PM EDT Oxygen Saturation - - Inhaled Oxygen Concentration - - Weight 59.9 kg (132 lb) 07/28/2022 2:23 PM EDT Height 157.5 cm (5' 2 ) 07/28/2022 2:23 PM EDT Body Mass Index 24.14 07/28/2022 2:23 PM EDT documented in this encounter Functional [...] Refills Last Filled Start Date End Date budesonide 9 mg Oral tablet, delayed & ext.release Take 1 Tablet by mouth daily. 90 Tablet 1 07/28/2022 4 diphenoxylate-atro pine (LOMOTIL) 2.5-0.025 mg Oral TabletIndications: Crohn's disease of both small and large intestine without complication (HCC) TAKE 2 TABLETS BY MOUTH FOUR TIMES A DAY IF NEEDED. NO MORE THAN 8 TABLETS PER DAY 240 Tablet 3 07/28/2022 2 ondansetron (ZOFRAN) 4 mg Oral Tablet Take 1 Tablet by mouth every 6 hours as needed. for nausea 30 Tablet 5 07/28/2022 3 predniSONE (DELTASONE) 10 mg Oral Tablet Take 1 Tablet by mouth daily. 112 Tablet 1 07/28/2022 4 documented in this encounter Progress Notes * Swapnil Lopez MD - 07/28/2022 2:00 PM EDT Images from the original note were not included. Subjective Subjective: Patient ID: Marleni Way is a 61 y.o. female. Chief Complaint Patient presents with ??? Crohn's Disease HPI I saw Seamus Sy in follow-up today. Seamus is a very pleasant 61-year-old female with a 41-yearhistory of severe Crohn's disease associated with perianal disease and fistulae. Her last colonoscopy done at the [facility] in December of 2019 showed correia colitis and severe terminal ileitis. 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 She has been on ENTYVIO, but failed management and has persistent problems with diarrhea especially in the two weeks around her infusion. It was decided to switch her to STELARA. She did go through STELARA teaching on May 16 and she has received two infusions. She has also been on tramadol, Lomotil, Imodium and occasionally burst and taper of prednisone. Seamus returns and reports that she has received two infusions of STELARA and she has continued to have severe diarrhea associated with the infusions. It usually begins two days afterward and it will last for two weeks in which she has persistent diarrhea through the night. She has decided that she will not take any more STELARA. She finds that she gets her best response with a combination of tramadol, Lomotil and 10 mg of prednisone, which she only occasionally takes. When she does that she will have three to four soft to formed stools per day. She never gets constipated. She has not had any bleeding and she notes that her fistulae are much improved on that regimen. Her appetite is good andshe has had no nausea, vomiting, anorexia or weight loss. She has had no night sweats. Patients past medical, family and social histories were reviewed and updated. There were no changesexcept as noted. Review of Systems Constitutional: Negative. HENT: Negative. Eyes: Negative. Respiratory: Negative. Cardiovascular: Negative. Gastrointestinal: Positive for abdominal pain and diarrhea. Endocrine: Negative. Genitourinary: Negative. Musculoskeletal: Negative. Skin: Negative. Allergic/Immunologic: Negative. Neurological: Negative. Hematological: Negative. Psychiatric/Behavioral: Negative. Objective Objective: Vitals: 07/28/22 1423 BP: (!) 165/95 BP Location: Left arm Patient Position: Sitting Pulse: 74 Resp: 14 Temp: 97.4 ??F (36.3 ??C) TempSrc: Forehead Weight: 132 lb (59.9 kg) Height: 5' 2 (1.575 m) Body mass index is 24.14 kg/m??. Physical Exam Vitals and nursing note reviewed. [...] of colon with complication (HCC) (Chronic) Seamus has received two infusions of STELARA, but unfortunately, had severe diarrhea associated withboth. It is not clear if it is related to the STELARA, but she is not interested in continuing thattreatment. She actually does her best with tramadol, Lomotil, and occasionally a dose of prednisone. I will give her a trial of Uceris 9 mg a day and I will have her take that for three months. I didrenew her other medications including her Lomotil and her Zofran. She gets her tramadol through herpain doctor. She will be due for a colonoscopy next year and I have discussed it with her. She is hesitant to proceed, but I will discuss it further when she returns. I will plan to see her in follow-up in four months or sooner should the need arise. Thank you, Damaso, for allowing me to participate in the care of Seamus. If you have any questions, please do not hesitate to contact me. No follow-ups on file. documented in this encounter Plan of Treatment Upcoming Encounters Date Type Department Care Team (Late st Contact Info) Description 09/11/2024 1:45 PM EST Office Visit [facility] [address] [place] [address] Swapnil Lopez MD [address] [place] [address] 10/21/2024 2:00 PM EST Appointment [facility] MRI [address] [place] [address] Jacky Shirley MD [address] [place] [address] [place] [address] 10/23/2024 1:45 PM EST Appointment [facility] [place] [address] Olena Darby, METAL BALER 1 [facility] [place], [place] [id number] documented as of this encounter Goals Goal Patient Goal Type Associated Problems Recent Progress Patient-Stated? Author Maintain a healthy diet, exercise regularly and maintain an ideal body weight General No Linda Walden, RMA documented as of this encounter Visit Diagnoses Diagnosis Crohn's disease of colon with complication (HCC)- Primary Crohn's disease of both small and large intestine without complication (HCC) Regional enteritis of small intestine with large intestine documented in this encounter Discontinued Medications Medication Sig Discontinue Reason Start Date End Da te vedolizumab (ENTYVIO) 300 mg IV Recon Soln Entyvio 300 mg intravenous solution Inject every month by intravenous route. Cancelled by 07/28/2022 predniSONE (DELTASONE) 10 mg Oral Tablet TAKE 3 TABLETS BY MOUTH EVERY MORNING FOR 2 WEEKS THEN 2 TABLET FOR 2 WEEKS THEN 1 TABLET FOR 2 WEEKS THEN 1/2 TABLET FOR 2 WEEKS THEN STOP Reorder 03/07/2022 07/28/2022 ondansetron (ZOFRAN) 4 mg Oral Tablet TAKE 1 TABLET BY MOUTH EVERY 6 HOURS NEEDED FOR NAUSEA Reorder 03/08/2022 07/28/2022 diphenoxylate-atropine (LOMOTIL) 2.5-0.025 mg Oral TabletIndications:Crohn 's disease of both small and large intestine without complication (HCC) TAKE 2 TABLETS BY MOUTH FOUR TIMES A DAY IF NEEDED. NO MORE THAN 8 TABLETS PER DAY Reorder 04/22/2022 07/28/2022 documented as of this encounter Care Teams Barrel Rifler Button Relationship Specialty Start Date End Date Swapnil Lopez MD [address] [place] [phone] Internal Medicine-Gastroenterology 02/16/22 documented as of this encounter
--- OUTSIDE RECORDS SUMMARY | 2024-08-15 13:54 | XMS_ITS | Encounter Summary ---
Author Organization [facility] Gastroente rology Address [address] [facility] [place] [address] Care Team Providers Care Cooker Sulfate Name Role Phone Swapnil Lopez MD Unavailable [phone] Reason for Visit * Reason Comments Medication Refill Encounter Details Date Type Department Care Team (Late st Contact Info) Description 04/22/2022 Refill [facility] [address] [place] [address] Swapnil Lopez MD [address] [place] [address] Medication Refill Social History Tobacco [...] of Assessment Author No 09/05/2017 11:13 AM Gbaby De La Garza RMA * Is the [...] 8 TABLETS PER DAY 240 Tablet 3 04/22/2022 2 documented in this encounter Plan of Treatment Upcoming Encounters Date Type Department Care Team (Late st Contact Info) Description 09/11/2024 1:45 PM EST Office Visit [facility] [address] [place] [address] Swapnil Lopez MD [address] [place] [address] 10/21/2024 2:00 PM EST Appointment [facility] MRI [address] [place] [address] Jacky Shirley MD [address] [place] [address] [place] [address] 10/23/2024 1:45 PM EST Appointment [facility] [address] Olena Darby APRN 1 [facility] [place] [address] documented as of this encounter [...] 4 TABLETS BY MOUTH THREE TIMES DAILY 04/20/2022 04/22/2022 documented as of this encounter Care Teams Cooker Sulfate Relationship Specialty Start Date End Date Swapnil Lopez MD [address] [place] [phone] Internal Medicine-Gastroenterology 02/16/22 documented as of this encounter
--- OUTSIDE RECORDS SUMMARY | 2024-08-15 13:54 | XMS_ITS | Encounter Summary ---
Author Organization [facility] Gastroente rology Address [address] [facility] [place] [address] Care Team Providers Care Health Officer Name Role Phone Swapnil Lopez MD Unavailable [phone] Reason for Visit * Reason Onset Date Comments Follow-up 03/14/2022 Encounter Details Date Type Department Care Team (Late st Contact Info) Description 03/14/2022 Telephone [facility] [address] [facility] [place] [address] Trisha Blood RMA Follow-up Social History [...] Encounter - Jill Nash, Clerical Staff - 04/06/2022 9:27 AM EDT Lvm to schedule. * Telephone Encounter - Trisha Blood RMA - 03/14/2022 11:32 AM EDT please call pt & sched her stela teach for 04/13. she also needs a 3 month biologic start fu w/dr lopez due in may. documented in this encounter Plan of Treatment Upcoming Encounters Date Type Department Care Team (Late st Contact Info) Description 09/11/2024 1:45 PM EST Office Visit [facility] [address] [facility] [place] [address] Swapnil Lopez MD [address] [place] [address] 10/21/2024 2:00 PM EST Appointment [facility] MRI [address] [place] [address] Jacky Shirley MD [address] [place] [address] [place] [address] 10/23/2024 1:45 PM EST Appointment [facility] [place], [place] [id number] Olena Darby APRN [address] [place] [address] [place] [address] documented as of this encounter Goals Goal Patient Goal Type Associated Problems Recent Progress Patient-Stated? Author Maintain a healthy diet, exercise regularly and maintain an ideal body weight General No Linda Walden, RMA documented as of this encounter Visit Diagnoses Not on filedocumented in this encounter Care Teams Health Officer Relationship Specialty Start Date End Date Swapnil Lopez MD [address] [place] [phone] Internal Medicine-Gastroenterology 02/16/22 documented as of this encounter
--- OUTSIDE RECORDS SUMMARY | 2024-08-15 13:54 | XMS_ITS | Encounter Summary ---
Author Organization [facility] Gastroente rology Address [address] [place] [address] Care Team Providers Care Cement Breaker Name Role Phone Swapnil Lopez MD Unavailable [phone] Reason for Visit * Reason Comments Medication Refill Encounter Details Date Type Department Care Team (Late st Contact Info) Description 10/21/2022 Refill [facility] [address] [place] [address] Swapnil Lopez MD [address] [place] [address] Medication Refill Social History Tobacco [...] NAUSEA 30 Tablet 5 10/21/2022 01/05/2024 documented in this encounter Plan of Treatment Upcoming Encounters Date Type Department Care Team (Late st Contact Info) Description 09/11/2024 1:45 PM EST Office Visit [facility] [address] [place] [address] Swapnil Lopez MD [address] [place] [address] 10/21/2024 2:00 PM EST Appointment [facility] [address] [place] [address] Jacky Shirley MD [address] [place] [address] [place] [address] 10/23/2024 1:45 PM EST Appointment [facility] [address] Olena Darby APRN [address] [place] [address] [place] [address] documented as of this encounter [...] every 6 hours as needed. for nausea 07/28/2022 10/21/2022 documented as of this encounter Care Teams Cement Breaker Relationship Specialty Start Date End Date Swapnil Lopez MD [address] [place] [phone] Internal Medicine-Gastroenterology 02/16/22 documented as of this encounter
--- OUTSIDE RECORDS SUMMARY | 2024-08-15 13:54 | XMS_ITS | Encounter Summary ---
Author Organization [facility] Gastroente rology Address [address] [place] [address] Care Team Providers Care Fancy Packer Name Role Phone Swapnil Lopez MD Unavailable [phone] Reason for Visit * Reason Comments Medication Refill Encounter Details Date Type Department Care Team (Late st Contact Info) Description 04/12/2022 Refill [facility] [address] [place] [address] Swapnil Lopez MD [address] [place] [address] Medication Refill Social History Tobacco [...] Date traMADoL (ULTRAM) 50 mg Oral Tablet TAKE 2 TABLETS BY MOUTH THREE TIMES DAILY ONLY FOR 7 DAYS 42 Tablet 1 04/13/2022 documented in this encounter Plan of Treatment Upcoming Encounters Date Type Department Care Team (Late st Contact Info) Description 09/11/2024 1:45 PM EST Office Visit [facility] [address] [place] [address] Swapnil Lopez MD [address] [place] [address] 10/21/2024 2:00 PM EST Appointment [facility] MRI [address] [place] [address] Jacky Shirley MD [address] [place] [address] [place] [address] 10/23/2024 1:45 PM EST Appointment [facility] [place] [address] Olena Darby APRN [address] [place] [address] [place] [address] documented as of this encounter Goals Goal Patient Goal Type Associated Problems Recent Progress Patient-Stated? Author Maintain a healthy diet, exercise regularly and maintain an ideal body weight General No Linda Walden, RMA documented as of this encounter Visit Diagnoses Not on filedocumented in this encounter Discontinued Medications Medication Sig Discontinue Reason Start Date End Da te traMADol (ULTRAM) 50 mg Oral Tablet 50 mg every 6 hours as needed. 10/18/2019 04/12/2022 documented as of this encounter Care Teams Fancy Packer Relationship Specialty Start Date End Date Swapnil Lopez MD [address] [place] [phone] Internal Medicine-Gastroenterology 02/16/22 documented as of this encounter
--- OUTSIDE RECORDS SUMMARY | 2024-08-15 13:54 | XMS_ITS | Encounter Summary ---
Author Organization [place] [address] Care Team Providers Care Supervisor Payroll Name Role Phone Swapnil Lopez MD Unavailable [phone] Dmaaso Black MD Primary Care Provider [phone] Reason for Referral * Mammography (Routine) - Pending Review Specialty Diagnoses / Procedures Referred By Contac t Referred To Contact Radiology Diagnoses Lump in female breast Procedures MM MAMMO DIGITAL DANIELA DIAGN BILAT Slava White ARNP [address] [place] [address] Phone: tel: Referral ID Status Reason Start Date Expiration Date V isits Requested Visits Authorized [id number] Pending Review 07/04/2023 07/04/2025 1 1 Reason for Visit * Mammography (Routine) - Pending Review Specialty Diagnoses / Procedures Referred By Contbrian t Referred To Contact Radiology Diagnoses Lump in female breast Procedures MM MAMMO DIGITAL DANIELA DIAGN BILAT Slava White ARNP [address] [place] [address] Phone: tel: Referral ID Status Reason Start Date Expiration Date V isits Requested Visits Authorized [id number] Pending Review 07/04/2023 07/04/2025 1 1 Encounter Details Date Type Department Care Team (Latest Contact Info) Description 10/12/2023 12:29 PM EST - 10/12/2023 12:51 PM [facility] Hospital Encounter [facility] Mammography [address] [place] [address] Slava White ARNP [address] [place] [address] Lump in female breast Discharge [...] PM EST Office Visit [facility] [address] [place] [facility] [address] Swapnil Lopez MD [address] [place] [address] 10/21/2024 2:[address] [facility] MRI [address] [place] [address] Jacky Shirley MD [address] [place] [address] CANCER [place], [place] [id number] 10/23/2024 1:45 PM EST Appointment [facility] [address] [place], [place] [id number] Olena Darby APRN [address] [place] [address] documented as of this encounter Goals Goal Patient Goal Type Associated Problems Recent Progress Patient-Stated? Author Maintain a healthy diet, exercise regularly and maintain an ideal body weight General No Linda Walden, RMA documented as of this encounter Procedures Procedure Name Priority Date/Time Associated Diagnosis Comments MM MAMMO DIGITAL DANIELA DIAGN BILAT Routine 10/12/2023 12:47 PM EST Lump in female breast documented in this encounter Results * MM MAMMO DIGITAL DANIELA DIAGN BILAT (10/12/2023 12:47 PM EST) Anatomical Region Laterality Modality Breast Bilateral Mammography 10/12/2023 2:37 PM EST Impressions 10/12/2023 2:37 PM EST Incomplete-need additional imaging evaluation ([id number]) Suspicious left breast mass and axillary adenopathy. [...] the next mammogram, in accordance with the [employer] and the Society of Breast Imaging recommendations. Narrative 10/12/2023 2:37 PM EST Procedure:MM MAMMO DIGITAL DANIELA DIAGN BILAT ~ Reason for exam: clinical finding. N63.0-Unspecified lump in unspecified [id number] ~ MM MAMMO DIGITAL DANIELA DIAGN BILAT [...] exam: clinical finding. N63.0-Unspecified lump in unspecified [id number] ~ MM MAMMO DIGITAL DANIELA DIAGN BILAT Bilateral CC and MLO view(s) were taken. There are scattered fibroglandular densities. 2:00 left breast is an approximate 2.5 cm spiculated mass containing some pleomorphic calcifications and several long spicules extending for severalcentimeters. In addition, there are multiple enlarged left axillary nodes, largest2.6 cm. Right breast unremarkable. ~ IMPRESSION: Incomplete-need additional imaging evaluation ([id number]) Suspicious left breast mass and axillary adenopathy. [...] the next mammogram, in accordance with the [employer] and the Society of Breast Imaging recommendations. [facility] IM MAMMOGRAPHY ORDERABLES Final Result documented in this encounter Visit Diagnoses Diagnosis Lump in female breast Lump or mass in breast documented in this encounter Care Teams Supervisor Payroll Relationship Specialty Start Date End Date Damaso Black MD [address] [facility] [address] [place] [address] PCP - General Family Medicine 11/22/22 Swapnil Lopez MD [address] [place] [phone] Internal Medicine-Gastroenterology 02/16/22 documented as of this encounter
--- OUTSIDE RECORDS SUMMARY | 2024-08-15 13:54 | XMS_ITS | Encounter Summary ---
Author Organization [facility] rology Address [address] [place] [address] Care Team Providers Care Verifying Specialist Name Role Phone Swapnil Lopez MD Unavailable [phone] Damaso Black MD Primary Care Provider [phone] Reason for Referral * Consultation (Routine) - Closed Specialty Diagnoses / Procedures Referred By Contact Referred To Contact Pharmacist - Pharmacotherapy / Med Mgmt Diagnoses Crohn's disease of colon with complication (HCC) Swapnil Lopez MD [address] [place] [address] Phone: tel:[phone] fax:[phone] [facility] [address] [place] [address] Phone: tel:[phone] fax:[phone] Referral ID Status Reason Start Date Expiration Date Visits Re quested Visits Authorized [id number] Closed 12/28/2022 12/28/2023 1 1 Question Answer Services Collaborative Care Management Disease Protocol Managment Reason Inflammatory Bowel Disease Level of Medication Management All Levels Comments start skyrizi. Reason for Visit * Reason Onset Date Comments Biologics 12/20/2022 Encounter Details Date Type Department Care Team (Late st Contact Info) Description 12/20/2022 Telephone [facility] [address] [place] [address] Trisha Blood RMA Biologics Social History Tobacco [...] Telephone Encounter - Trisha Blood RMA - 12/28/2022 4:38 PM EDT sw pt, she is fine to start jonathan. reiewed the process & med mgmt. sent referral to med mgmt. * Telephone Encounter - Trisha Blood RMA - 12/26/2022 10:08 AM EDT lvm for pt to call me. * Telephone Encounter - Trisha Blood RMA - 12/22/2022 12:42 PM EDT lvm for pt to call me. * Telephone Encounter - Trisha Blood RMA - 12/21/2022 4:13 PM EDT lvm for pt to call me. * Telephone Encounter - Swapnil Lopez MD - 12/21/2022 3:29 PM EDT OK for Skyrizdoris * Telephone Encounter - Trisha Blood RMA - 12/20/2022 8:18 AM EDT pt lvm & would like to try skyrizi. please advise. documented in this encounter Plan of Treatment Upcoming Encounters Date Type Department Care Team (Late st Contact Info) Description 09/11/2024 1:45 PM EST Office Visit [facility] [address] [place] [facility] [address] Swapnil Lopez MD [address] [address] 10/21/2024 2:00 PM EST Appointment [facility] MRI [address] [place] [address] Jacky Shirley MD [address] [place] [address] [place] [address] 10/23/2024 1:45 PM EST Appointment [facility] [place] [address] Olena Darby APRN 1 [facility] [place] [address] Scheduled Referrals Name Type Priority Associated Diagnoses Orde r Schedule AMB REFERRAL TO PHARMACY/MEDICATION MANAGEMENT Outpatient Referral Routine Crohn's disease of colon with complication (HCC) Ordered: 12/28/2022 documented as of this encounter Goals Goal Patient Goal Type Associated Problems Recent Progress Patient-Stated? Author Maintain a healthy diet, exercise regularly and maintain an ideal body weight General No Linda Walden, RMA documented as of this encounter Visit Diagnoses Diagnosis Crohn's disease of colon with complication (HCC)- Primary documented in this encounter Care Teams Verifying Specialist Relationship Specialty Start Date End Date Damaso Black MD [address] [address] PCP - General Family Medicine 11/22/22 Swapnil Lopez MD [address] [place] [address] Internal Medicine-Gastroenterology 02/16/22 documented as of this encounter
--- OUTSIDE RECORDS SUMMARY | 2024-08-15 13:54 | XMS_ITS | Encounter Summary ---
Author Organization [place] [address] Care Team Providers Care Scientific Editor Name Role Phone Swapnil Lopez MD Unavailable [phone] Damaso Black MD Primary Care Provider [phone] Reason for Visit * Reason Comments Pharmacy Inflammatory Bowel Disease Kinza degroot Encounter Details Date Type Department Care Team (Latest Contact Info) Description 12/29/2022 Specialty Pharmacy [facility] [address] [place] [address] [place] [address] Lola Mendez, PharmD Pharmacy Inflammatory Bowel Disease Management Social History Tobacco Use Types Packs/Day [...] documented in this encounter Progress Notes * Lola Mendez PharmD - 12/29/2022 3:38 PM EDT Inflammatory Bowel Disease Medication Management Clinic Referral received from Dr. Lopez for the initiation of Skyrizi for Crohn's Disease. Labs needed prior to ordering medication: CBC w diff, CMP Other baseline labs: TB Gold, HBsAg, ESR, CRP, vitamin D Possible Immunizations needed: Shingrix, TDAP, PCV20, COVID primary series [facility] tech to schedule patient. Techs to screen vaccine costs if patient interested. Lola Mendez PharmD, BCPS, BCACP Welder Manufacture Specialty Pharmacist * Arpita Singleton CPhT - 12/29/2022 3:38 PM EDT Inflammatory Bowel Disease Medication Management Clinic 01/02/2023 4:26 PM Calling patient to schedule initial appointment for the initiation of Skrizi. Labs needed prior to appointment: Yes Recommended vaccines: Will discuss with patient once appointment scheduled. No answer, left voicemail to call back [phone], option 1. Arpita Singleton CPhT * Linda Shin CPhT - 12/29/2022 3:38 PM EDT Inflammatory Bowel Disease Medication Management Clinic 01/05/2023 9:26 AM Calling patient to schedule initial appointment for the initiation of Skyrizi. Labs needed prior to appointment: Yes Recommended vaccines: Will discuss with patient once appointment scheduled. No answer, left voicemail to call back [phone], option 1. Linda Shin CPhT * Ashley Rushing CPhT - 12/29/2022 3:38 PM EDT Inflammatory Bowel Disease Medication Management Clinic 01/13/2023 2:38 PM Calling patient to schedule initial appointment for the initiation of Skyrizi. Labs needed prior to appointment: Yes Spoke with patient, she has researched the medication and said it could take a year for remission. She has decided to not move forward with the injection. She doesn't want to put herself through the lengthy process. she also lives in [place] and its just to far to drive here. Ashley Torres, Wall Taper Ashley Rushing CPhT * Chiqui Hinton PharmD - 12/29/2022 3:38 PM EDT Inflammatory Bowel Disease Medication Management Clinic 01/18/2023 3:12 PM Called patient to further discuss [facility] visit and Skyrizi and she told [facility] tech she didn't want to proceed with treatment. No answer. LVM for patient to return call to clinic at [phone], option 1. Chiqui Hinton PharmD * Swapnil Lopez MD - 12/29/2022 3:38 PM EDT Noted and thanks for update * Chiqui Hinton PharmD - 12/29/2022 3:38 PM EDT Inflammatory Bowel Disease Medication Management Clinic 02/01/2023 3:05 PM Ref provider aware that patient has declined [facility] services. Will close referral at this time. Chiqui Hinton PharmD documented in this encounter Plan of Treatment Upcoming Encounters Date Type Department Care Team (Late st Contact Info) Description 09/11/2024 1:45 PM EST Office Visit [facility] [address] [facility] [address] Swapnil Lopez MD [address] [place] [address] 10/21/2024 2:00 PM EST Appointment [facility] MRI [address] [place] [address] Jacky Shirley MD [address] [place] [address] CAN[place]ER [place], [place] [id number] 10/23/2024 1:45 PM EST Appointment [facility] [address] [place], [place] [id number] Olena Darby APRN [address] [place] [address] [id number] Scheduled Orders Name Type Priority Associated Diagnoses Orde r Schedule QUANTIFERON TB GOLD Lab Routine Crohn's disease of colon with complication (HCC) 1 Occurrences starting 12/29/2022 until 12/30/2023 HEPATITIS B SURFACE ANTIGEN Lab Routine Crohn's disease of colon with complication (HCC) 1 Occurrences starting 12/29/2022 until 12/30/2023 VITAMIN D 25 HYDROXY Lab Routine Crohn's disease of colon with complication (HCC) 1 Occurrences starting 12/29/2022 until 12/30/2023 COMPREHENSIVE METABOLIC PANEL Lab Routine Crohn's disease of colon with complication (HCC) 1 Occurrences starting 12/29/2022 until 12/30/2023 CBC WITH DIFF Lab Routine Crohn's disease of colon with complication (HCC) 1 Occurrences starting 12/29/2022 until 12/30/2023 SEDIMENTATION RATE AUTOMATED Lab Routine Crohn's disease of colon with complication (HCC) 1 Occurrences starting 12/29/2022 until 12/30/2023 C-REACTIVE PROTEIN Lab Routine Crohn's disease of colon with complication (HCC) 1 Occurrences starting 12/29/2022 until 12/30/2023 documented as of this encounter Goals Goal Patient Goal Type Associated Problems Recent Progress Patient-Stated? Author Maintain a healthy diet, exercise regularly and maintain an ideal body weight General No Linda Walden, RMA documented as of this encounter Visit Diagnoses Diagnosis Crohn's disease of colon with complication (HCC)- Primary documented in this encounter Care Teams Scientific Editor Relationship Specialty Start Date End Date Damaso Black MD 1005 [facility] [address] [place], [place] [address] PCP - General Family Medicine 11/22/22 Swapnil Lopez MD [address] [place] [address] Internal Medicine-Gastroenterology 02/16/22 documented as of this encounter
--- OUTSIDE RECORDS SUMMARY | 2024-08-15 13:54 | XMS_ITS | Encounter Summary ---
Author Organization [facility]y Address [address] [place] [address] Care Team Providers Care Pipe Line Walker Name Role Phone Swapnil Lopez MD Unavailable [phone] Reason for Visit * Reason Onset Date Comments Medication Management 04/07/2022 Encounter Details Date Type Department Care Team (Late st Contact Info) Description 04/07/2022 Telephone [facility] [address] [place] [address] Swapnil Lopez MD [address] [place] [address] Medication Management Social History Tobacco Use Types [...] encounter Miscellaneous Notes * Telephone Encounter - Mile Jiménez RMA - 04/07/2022 4:07 PM EDT s/w pt. and she verbalized understanding. * Telephone Encounter - Swapnil Lopez MD - 04/07/2022 3:52 PM EDT OK for 1 week; no RF * Telephone Encounter - Mile Jiménez RMA - 04/07/2022 3:41 PM EDT Pt. called and stated that She is changing pain specialist and she is wanting to know if you can fill her tramadol for one week. Or until Monday. 50 mg tablet 2 tablets 3 times a day. she takes itfor all her pains and crohn's and pain in her system. documented in this encounter Plan of Treatment Upcoming Encounters Date Type Department Care Team (Late st Contact Info) Description 09/11/2024 1:45 PM EST Office Visit [facility] [address] [place] [place] [address] Swapnil Lopez MD [address] [place] [address] 10/21/2024 2:00 PM EST Appointment [facility] MRI [address] [place] [address] Jacky Shirley MD [address] [place] [address] [place] [address] 10/23/2024 1:45 PM EST Appointment [facility] [place] [address] Olena Darby APRN [address] [place] [address] [phone] documented as of this encounter Goals Goal Patient Goal Type Associated Problems Recent Progress Patient-Stated? Author Maintain a healthy diet, exercise regularly and maintain an ideal body weight General No Linda Walden, RMA documented as of this encounter Visit Diagnoses Not on filedocumented in this encounter Care Teams Pipe Line Walker Relationship Specialty Start Date End Date Swapnil Lopez MD [address] [place] [address] Internal Medicine-Gastroenterology 02/16/22 documented as of this encounter
--- OUTSIDE RECORDS SUMMARY | 2024-08-15 13:54 | XMS_ITS | Encounter Summary ---
Author Organization [facility] Gastroente rology Address [address] [place] [facility] [place] [address] Care Team Providers Care Qa Reviewer Name Role Phone Swapnil Lopez MD Unavailable [phone] Reason for Visit * Reason Onset Date Comments Biologics 03/14/2022 Encounter Details Date Type Department Care Team (Late st Contact Info) Description 03/14/2022 Telephone [facility] [address] [place] [facility] [address] Trisha Blood RMA Biologics Social History [...] Encounter - Trisha Blood RMA - 04/25/2022 4:49 PM EDT pt lvm that she is getting dlv on 04/28. * Telephone Encounter - Trisha Blood RMA - 04/20/2022 2:27 PM EDT pt lvm. sw pt, advised her to call the pharm to sched dlv & to let me know so her teach appt can be sched. * Telephone Encounter - Trisha Blood RMA - 04/15/2022 12:18 PM EDT faxed script to [facility]. * Telephone Encounter - Gm Pinzon APRN - 04/15/2022 12:13 PM EDT Ok to start stelara * Telephone Encounter - Trisha Blood RMA - 04/15/2022 12:10 PM EDT please advise okay to start stelara. * Telephone Encounter - Gm Pinzon APRN - 04/15/2022 12:02 PM EDT Ok to start stelara * Telephone Encounter - Trisha Blood RMA - 04/15/2022 11:57 AM EDT please advise okay for pt to start stelara. * Telephone Encounter - Trisha Blood RMA - 04/15/2022 11:53 AM EDT rec'd fax from [employer]. appeal is overturned. pt approved 04/13/22 to 10/13/22. * Telephone Encounter - Trisha Blood RMA - 04/13/2022 4:10 PM EDT faxed appeal packet to [employer]. 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 will do sandra[eal. * Telephone Encounter - Trisha Blood RMA - 04/13/2022 10:15 AM EDT rec'd fax from [employer], they deny stelara injections until pt has 3 month trial/failure of humira. * Telephone Encounter - Trisha Blood RMA - 04/12/2022 12:14 PM EDT called [employer]. did pa via phone. 24 hr rvw. ref # [id number]. * Telephone Encounter - Trisha Blood RMA - 04/12/2022 11:58 AM EDT kurt pt,. she says she does have pharm benefits. called plan, they referred me to [employer] as the pbm. * Telephone Encounter - Trisha Blood RMA - 04/08/2022 9:30 AM EDT called [facility] to do pa for pfs. was informed pt does not have pharm benefits. * Telephone Encounter - Trisha Blood RMA - 03/14/2022 11:35 AM EDT pt lvm that she wants to continue stelara. sent mess to dr lopez. sw pt, advised I will continue working on it. pt due for teach on 04/13 & 3 month fu - sent mess to appt sched. * Telephone Encounter - Trisha Blood RMA - 03/14/2022 8:56 AM EDT vob: rec'd vob: To initiate PA/PreD, please contact Pre Auth Dept . [facility] - . Administration and Drug are covered at 100% of contracted rates. Deductible and coinsurance do not apply. [facility] is the specialty pharm. * Telephone Encounter - Trisha Blood RMA - 03/14/2022 8:52 AM EDT pt lvm that she wants to continue stelara. sent mess to update dr lopez. pt due for first shot 04/13. documented in this encounter Plan of Treatment Upcoming Encounters Date Type Department Care Team (Late st Contact Info) Description 09/11/2024 1:45 PM EST Office Visit [facility] [address] [place] [facility] [place] [address] Swapnil Lopez MD [address] [place] [address] 10/21/2024 2:00 PM EST Appointment [facility] MRI [address] [place] [address] Jacky Shirley MD [address] [place] [address] [place]ER [place], [place] [id number] 10/23/2024 1:45 PM EST Appointment [facility] [place] [address] Olena Darby APRN [address] [place] [address] [place] [address] documented as of this encounter Goals Goal Patient Goal Type Associated Problems Recent Progress Patient-Stated? Author Maintain a healthy diet, exercise regularly and maintain an ideal body weight General No Linda Walden RMA documented as of this encounter Visit Diagnoses Not on filedocumented in this encounter Care Teams Qa Reviewer Relationship Specialty Start Date End Date Swapnil Lopez MD [address] [place] [address] Internal Medicine-Gastroenterology 02/16/22 documented as of this encounter
--- OUTSIDE RECORDS SUMMARY | 2024-08-15 13:54 | XMS_ITS | Encounter Summary ---
Author Organization [facility] Gastroente rology Address [address] [place] [address] Care Team Providers Care Locksmith Name Role Phone Swapnil Lopez MD Unavailable [phone] Damaso Black MD Primary Care Provider [phone] Encounter Details Date Type Department Care Team (Late st Contact Info) Description 11/25/2022 Orders Only [facility] [address] [place] [address] Swapnil Lopez MD [address] [place] [address] Crohn's disease of both small [...] 8 TABLETS PER DAY 240 Tablet 3 11/25/2022 3 documented in this encounter Progress Notes * Swapnil Lopez MD - 11/25/2022 4:17 PM EST RF Lomotil documented in this encounter Plan of Treatment Upcoming Encounters Date Type Department Care Team (Late st Contact Info) Description 09/11/2024 1:45 PM EST Office Visit [facility] [address] [place] [facility] [place] [address] Swapnil Lopez MD [address] [place] [address] 10/21/2024 2:00 PM EST [facility] [address] [place] [address] Jacky Shirley MD 1 [facility] [place] [address] 10/23/2024 1:45 PM EST Appointment [facility] [address] [address] [place], [place] [id number] Olena Darby, TRENCHER DRIVER [address] [place], [place] [id number] documented as of this encounter Goals Goal [...] MORE THAN 8 TABLETS PER DAY Reorder 11/22/2022 11/25/2022 documented as of this encounter Care Teams Locksmith Relationship Specialty Start Date End Date Damaso Black MD 100[address] [facility] [address] [place] [address] PCP - General Family Medicine 11/22/22 Swapnil Lopez MD [address] [place] [address] Internal Medicine-Gastroenterology 02/16/22 documented as of this encounter
--- OUTSIDE RECORDS SUMMARY | 2024-08-15 13:54 | XMS_ITS | Encounter Summary ---
Author Organization [facility] Gastroente rology Address [address] [place] [address] Care Team Providers Care Clinical Resource Director Name Role Phone Swapnil Lopez MD Unavailable [phone] Damaso Black MD Primary Care Provider [phone] Reason for Visit * Reason Onset Date Comments Follow-up 12/28/2022 Encounter Details Date Type Department Care Team (Late st Contact Info) Description 12/28/2022 Telephone [facility] [address] [place] [address] Trisha Blood RMA Follow-up Social History Tobacco [...] * Telephone Encounter - Sadia Escobar - 12/29/2022 8:38 AM EDT called pt to schedule 3 month biologic f/u with Dr. Lopez or MLP, had to leave a for a call back. * Telephone Encounter - Trisha Blood RMA - 12/28/2022 4:41 PM EDT please call pt & sched a 3 month biologic start fu w/dr lopez - due in April. documented in this encounter Plan of Treatment Upcoming Encounters Date Type Department Care Team (Late st Contact Info) Description 09/11/2024 1:45 PM EST Office Visit [facility] [address] [place] [address] Swapnil Lopez MD [address] [facility] [place] [address] 10/21/2024 2:00 PM EST Appointment [facility] MRI [address] [place] [address] Jacky Shirley MD [address] [place] [address] [place] [address] 10/23/2024 1:45 PM EST Appointment [facility] [place] [place] [address] Olena Darby APRN 1 [facility] [place] [address] documented as of this encounter Goals Goal Patient Goal Type Associated Problems Recent Progress Patient-Stated? Author Maintain a healthy diet, exercise regularly and maintain an ideal body weight General No Linda Walden, RMA documented as of this encounter Visit Diagnoses Not on filedocumented in this encounter Care Teams Clinical Resource Director Relationship Specialty Start Date End Date Damaso Black MD 1005 [facility] [address] [place] [address] PCP - General Family Medicine 11/22/22 Swapnil Lopez MD [address] [place] [phone] Internal Medicine-Gastroenterology 02/16/22 documented as of this encounter
--- OUTSIDE RECORDS SUMMARY | 2024-08-15 13:54 | XMS_ITS | Encounter Summary ---
Author Organization [facility] Gastroente rology Address [address] [place] [address] Care Team Providers Care Accounts Adjustable Clerk Name Role Phone Swapnil Lopez MD Unavailable [phone] Damaso Black MD Primary Care Provider [phone] Reason for Visit * Reason Onset Date Comments Medication Refill 11/29/2022 Encounter Details Date Type Department Care Team (Late st Contact Info) Description 11/29/2022 Refill [facility] [address] [place] [address] Swapnil Lopez MD [address] [place] [address] Medication Refill Social History Tobacco [...] PM EST Office Visit [facility] [address] [place] [facility] [place] [address] Swapnil Lopez MD [address] [place] [address] 10/21/2024 2:00 PM EST Appointment [facility] MRI [address] [place] [address] Jacky Shirley MD [address] [place] [address] [place] [address] 10/23/2024 1:45 PM EST Appointment [facility] [place] [address] Olena Darby, YON [address] [place] [address] [place] [address] documented as of this encounter Goals Goal Patient Goal Type Associated Problems Recent Progress Patient-Stated? Author Maintain a healthy diet, exercise regularly and maintain an ideal body weight General No Linda Walden, RMA documented as of this encounter Visit Diagnoses Not on filedocumented in this encounter Care Teams Accounts Adjustable Clerk Relationship Specialty Start Date End Date Damaso Black MD 1005 [facility] [address] [facility] [place], [place] [id number] PCP - General Family Medicine 11/22/22 Swapnil Lopez MD [address] [place] [phone] Internal Medicine-Gastroenterology 02/16/22 documented as of this encounter
--- OUTSIDE RECORDS SUMMARY | 2024-08-15 13:54 | XMS_ITS | Encounter Summary ---
Author Organization [facility] Gastroente rology Address [address] [place] [address] Care Team Providers Care Professor Of Biostatistics Name Role Phone Swapnil Lopez MD Unavailable [phone] Damaso Black MD Primary Care Provider [phone] Reason for Visit * Reason Onset Date Comments Medication Refill 03/06/2023 Encounter Details Date Type Department Care Team (Late st Contact Info) Description 03/06/2023 Refill [facility] [address] [place] [address] Swapnil Lopez MD [address] [place] [address] Medication Refill Social History Tobacco [...] 8 TABLETS PER DAY 240 Tablet 3 03/06/2023 4 documented in this encounter Plan of Treatment Upcoming Encounters Date Type Department Care Team (Late st Contact Info) Description 09/11/2024 1:45 PM EST Office Visit [facility] [address] [place] [address] Swapnil Lopez MD [address] [place] [address] 10/21/2024 2:00 PM EST Appointment [facility] MRI [address] [address] Jacky Shirley MD [address] [place] [address] [facility] [place], [place] [id number] 10/23/2024 1:45 PM EST Appointment [facility] [place] [address] Olena Darby APRN [address] [place] [address] [place] [address] documented as of this encounter [...] MORE THAN 8 TABLETS PER DAY Reorder 11/25/2022 03/06/2023 documented as of this encounter Care Teams Professor Of Biostatistics Relationship Specialty Start Date End Date Damaso Black MD 1005 [facility] [address] [place] [address] PCP - General Family Medicine 11/22/22 Swapnil Lopez MD [address] [place] [phone] Internal Medicine-Gastroenterology 02/16/22 documented as of this encounter
--- OUTSIDE RECORDS SUMMARY | 2024-08-15 13:54 | XMS_ITS | Encounter Summary ---
Author Organization [facility] Gastroente rology Address [address] [place] [address] Care Team Providers Care Export Specialist Name Role Phone Swapnil Lopez MD Unavailable [phone] Damaso Black MD Primary Care Provider [phone] Reason for Visit * Reason Onset Date Comments Other 09/18/2023 Encounter Details Date Type Department Care Team (Late st Contact Info) Description 09/18/2023 Telephone [facility] [address] [place] [address] Swapnil Lopez MD [address] [place] [address] Other Social History Tobacco Use [...] encounter Miscellaneous Notes * Telephone Encounter - Chantel Strickland - 09/18/2023 3:00 PM EST Received phone call from patient's father Steven Luevano stating that patient's senior attorney faxed request for Dr Lopez to provide a letter stating patient's condition and prescribed medications. Mr Luevano stated that patient is in [facility] [place] and that they have not been giving her medications. Per Herlinda Jaquez, explain situation to Dr Lopez's MA Mile & ask her if she would ask Dr Lopez about letter. Herlinda Jaquez also stated HIPAA/Privacy Notice was sufficient to release letter to patient's father Steven Luevano if Dr Lopez were to agree to letter. documented in this encounter Plan of Treatment Upcoming Encounters Date Type Department Care Team (Late st Contact Info) Description 09/11/2024 1:45 PM EST Office Visit [facility] [address] [place] [facility] [address] Swapnil Lopez MD [address] [place] [address] 10/21/2024 2:00 PM EST Appointment [facility] MRI [address] [address] Jacky Shirley MD 1 [facility] CANCER CARE [place], [place] [id number] 10/23/2024 1:45 PM EST Appointment [facility] [place], [place] [id number] Olena Darby APRN 1 [facility] CAN[facility] C[facility] [place], [place] [id number] documented as of this encounter Goals Goal Patient Goal Type Associated Problems Recent Progress Patient-Stated? Author Maintain a healthy diet, exercise regularly and maintain an ideal body weight General No Linda Walden, RMA documented as of this encounter Visit Diagnoses Not on filedocumented in this encounter Care Teams Export Specialist Relationship Specialty Start Date End Date Damaso Black MD [address] [facility] 22 [place] [address] PCP - General Family Medicine 11/22/22 Swapnil Lopez MD [address] [place] [address] Internal Medicine-Gastroenterology 02/16/22 documented as of this encounter
--- OUTSIDE RECORDS SUMMARY | 2024-08-15 13:54 | XMS_ITS | Encounter Summary ---
Author Organization [facility] Gastroente rology Address [address] [place] [address] Care Team Providers Care Conference Center Manager Name Role Phone Swapnil Lopez MD Unavailable [phone] Reason for Visit * Reason Onset Date Comments Medication Refill 08/03/2022 Encounter Details Date Type Department Care Team (Late st Contact Info) Description 08/03/2022 Refill [facility] [address] [place] [address] Swapnil Lopez MD [address] [place] [address] Medication Refill Social History Tobacco [...] 8 TABLETS PER DAY 240 Tablet 3 08/03/2022 2 documented in this encounter Plan of Treatment Upcoming Encounters Date Type Department Care Team (Late st Contact Info) Description 09/11/2024 1:45 PM EST Office Visit [facility] [address] [place] [address] Swapnil Lopez MD [address] [place] [address] 10/21/2024 2:00 PM EST Appointment [facility] MRI [address] [place] [address] Jacky Shirley MD [address] [place] [address] [place] [address] 10/23/2024 1:45 PM EST Appointment [place] [address] Olena Darby APRN 1 [facility] [place] [address] documented as of this encounter [...] MORE THAN 8 TABLETS PER DAY Reorder 07/29/2022 08/03/2022 documented as of this encounter Care Teams Conference Center Manager Relationship Specialty Start Date End Date Swapnil Lopez MD [address] [place] [address] Internal Medicine-Gastroenterology 02/16/22 documented as of this encounter
--- OUTSIDE RECORDS SUMMARY | 2024-08-15 13:54 | XMS_ITS | Encounter Summary ---
Author Organization [facility] Gastroente rology Address [address] [place] [address] Care Team Providers Care Production Maintenance Mechanic Name Role Phone Swapnil Lopez MD Unavailable [phone] Reason for Visit * Reason Onset Date Comments Medication Problem 04/14/2022 I gave verbal for Tramadol that was in chart Encounter Details Date Type Department Care Team (Late st Contact Info) Description 04/14/2022 Telephone [facility] [address] [place] [address] Swapnil Lopez MD [address] [place] [address] Medication Problem (I gave verbal for Tramadol that was in chart ) Social History Tobacco Use Types Packs/Day [...] Telephone Encounter - Mile Jiménez RMA - 04/14/2022 4:15 PM EDT I s/w pt. and let her know that Dr. Lopez was not her pcp that she had to find one and he is not going to refill any more of the Tramadol. * Telephone Encounter - Yamel Morrell CMA - 04/14/2022 12:02 PM EDTSummary: Tramadol Has been called in to pharmacy. #42. (only enough for [address] Lopez). documented in this encounter Plan of Treatment Upcoming Encounters Date Type Department Care Team (Late st Contact Info) Description 09/11/2024 1:45 PM EST Office Visit [facility] [address] [place] [facility] [address] Swapnil Lopez MD [address] [place] [address] 10/21/2024 2:00 PM EST Appointment [facility] MRI [address] [address] Jacky Shirley MD [address] [place] [address] [place]CER [place], [place] [id number] 10/23/2024 1:45 PM EST Appointment [facility] [place] [address] Olena Darby APRN [address] [place] [address] [place], [place] [id number] documented as of this encounter Goals Goal Patient Goal Type Associated Problems Recent Progress Patient-Stated? Author Maintain a healthy diet, exercise regularly and maintain an ideal body weight General No Linda Walden, RMA documented as of this encounter Visit Diagnoses Not on filedocumented in this encounter Care Teams Production Maintenance Mechanic Relationship Specialty Start Date End Date Swapnil Lopez MD [address] [place] [phone] Internal Medicine-Gastroenterology 02/16/22 documented as of this encounter
--- OUTSIDE RECORDS SUMMARY | 2024-08-15 13:55 | XMS_ITS | Encounter Summary ---
Author Organization [facility] [place] [address] Care Team Providers Care Technical Associate Name Role Phone Unavailable Primary Care Provider Unavailabl e Encounter Details Date Type Department Care Team (Latest Contact Info) Description 04/27/2021 Travel Social History Tobacco Use Types Packs/Day [...] have Coronavirus / COVID-19? No / Unsure 04/27/2021 1:54 PM EDT documented as of this encounter Functional Status [...] PM EST Office Visit [facility] [address] [place] [facility] [address] Swapnil Lopez MD [address] [place] [address] 10/21/2024 2:00 PM EST [facility]ointment [facility] [address] [place] [facility] [place] [address] Jacky Shirley MD [address] [place] [address] CANCER [place], [place] [id number] 10/23/2024 1:45 PM EST Appointment [facility] [place] [place] [address] Olena Darby APRN [address] [place] [address] [place], [place] [id number] documented as of this encounter Goals Goal Patient Goal Type Associated Problems Recent Progress Patient-Stated? Author Maintain a healthy diet, exercise regularly and maintain an ideal body weight General No Linda Walden RMA documented as of this encounter Visit Diagnoses Not on filedocumented in this encounter
--- OUTSIDE RECORDS SUMMARY | 2024-08-15 13:55 | XMS_ITS | Encounter Summary ---
Author Organization [facility] Gastroente rology Address [address] [place] [address] Care Team Providers Care Zoology Technical Officer Name Role Phone Swapnil Lopez MD Unavailable [phone] Reason for Visit * Reason Onset Date Comments Medication Refill 02/21/2022 Encounter Details Date Type Department Care Team (Late st Contact Info) Description 02/21/2022 Refill [facility] [address] [place] [address] Swapnil Lopez MD [address] [place] [address] Medication Refill Social History Tobacco [...] by mouth every 3 hours. 720 Capsule 3 02/21/2022 3 documented in this encounter Plan of Treatment Upcoming Encounters Date Type Department Care Team (Late st Contact Info) Description 09/11/2024 1:45 PM EST Office Visit [facility] [address] [place] [address] Swapnil Lopez MD [address] [place] [address] 10/21/2024 2:00 PM EST Appointment [facility] MRI [address] [place] [address] Jacky Shirley MD [address] [place] [address] [place] [address] 10/23/2024 1:45 PM EST Appointment [facility] [place] [address] Olena Darby APRN [address] [place] [address] [place] [address] documented as of this encounter [...] Capsule by mouth every 3 hours. Reorder 11/30/2021 02/21/2022 documented as of this encounter Care Teams Zoology Technical Officer Relationship Specialty Start Date End Date Swapnil Lopez MD [address] [place] [phone] Internal Medicine-Gastroenterology 02/16/22 documented as of this encounter
--- OUTSIDE RECORDS SUMMARY | 2024-08-15 13:55 | XMS_ITS | Encounter Summary ---
Author Organization [facility] Gastroente rology Address [address] [place] [address] Care Team Providers Care Lace Finisher Name Role Phone Unavailable Primary Care Provider Unavailabl e Reason for Visit * Reason Onset Date Comments Other 01/24/2022 Encounter Details Date Type Department Care Team (Late st Contact Info) Description 01/24/2022 Telephone [facility] [address] [place] [address] Mile Gaviria, RN Other Social History Tobacco Use Types Packs/Day [...] have Coronavirus / COVID-19? No / Unsure 01/20/2022 2:06 PM EDT documented as of this encounter [...] Miscellaneous Notes * Telephone Encounter - Mile Gaviria RN - 02/08/2022 2:27 PM EDT Patient schedued. * Telephone Encounter - Mile Gaviria RN - 02/04/2022 9:51 AM EDT Left another messaged requesting she call back to be scheduled by 02/21 for Stelara induction as PA is only good until 02/21. * Telephone Encounter - Mile Gaviria RN - 02/01/2022 9:46 AM EDT Attempted to schedule patient again for Stelara. Went to voicemail, detailed message left. PA only good through 02/21 encouraged patient to call ANNA * Telephone Encounter - Mile Gaviria RN - 01/31/2022 8:35 AM EDT Attempted to call patient again. Unsuccessful. Detailed message left requesting call back. * Telephone Encounter - Mile Gaviria RN - 01/26/2022 9:37 AM EDT Attempted to contact patient about scheduling Stelara induction. Unable to be reached, detailed message left. Awaiting call back. * Telephone Encounter - Mile Gaviria RN - 01/25/2022 10:20 AM EDT . * Telephone Encounter - Mile Gaviria RN - 01/25/2022 10:12 AM EDT Attempted to contact patient again. Unsuccessful, detailed message left. Awaiting deloris back. * Telephone Encounter - Mile Gaviria RN - 01/24/2022 10:50 AM EDT Left message requesting call back to get scheduled for her Stelara induction. documented in this encounter Plan of Treatment Upcoming Encounters Date Type Department Care Team (Late st Contact Info) Description 09/11/2024 1:45 PM EST Office Visit [facility] [address] [place] [address] Swapnil Lopez MD [address] [place] [place] [address] 10/21/2024 2:00 PM EST Appointment [facility] [address] [place] [address] Jacky Shirley MD [address] [place] [address] [place] [address] 10/23/2024 1:45 PM EST Appointment [facility] [place] [address] Olena Darby APRN [address] [place] [address] [place] [address] documented as of this encounter Goals Goal Patient Goal Type Associated Problems Recent Progress Patient-Stated? Author Maintain a healthy diet, exercise regularly and maintain an ideal body weight General No Linda Walden, RMA documented as of this encounter Visit Diagnoses Not on filedocumented in this encounter
--- OUTSIDE RECORDS SUMMARY | 2024-08-15 13:55 | XMS_ITS | Encounter Summary ---
Author Organization [place] [address] Care Team Providers Care Project Administrative Assistant Name Role Phone Unavailable Primary Care Provider Unavailabl e Reason for Visit * Oncology Medication Prior Authorization (Routine) - Closed Specialty Diagnoses / Procedures Referred By Contbrian t Referred To Contact Oncology Diagnoses Crohn's disease of colon with complication (HCC) Procedures [place] INJECTION, VEDOLIZUMAB Swapnil Avila MD [address] [place] [phone] Phone: tel: fax: [facility] [address] [address] Phone: tel: fax: Referral ID Status Reason Start Date Expiration Date Visits Re quested Visits Authorized [id number] Closed 10/09/2020 10/09/2021 99 [phone] Encounter Details Date Type Department Care Team (Latest Contact Info) Description 04/27/2021 2:00 PM EDT - 04/27/2021 11:59 PM EDT Hospital En[facility] [place] [address] Crohn's disease of colon with complication (HCC) (Primary Dx) Discharge Disposition: Home or Self Care Social History Tobacco Use Types Packs/Day Years Used Date Smoking Tobacco: Never Smokeless Tobacco: Never Alcohol Use Standard Drinks/Week Comments Yes 0 (1 standard drink = 0.6 oz pure alcohol) vodkkay; states that she drank before coming today [...] Sign Reading Time Taken Comments Blood Pressure 111/76 04/27/2021 3:26 PM EDT Pulse 88 04/27/2021 3:26 PM EDT Temperature 36.3 ??C (97.3 ??F) 04/27/2021 3:26 PM ED T Respiratory Rate 16 04/27/2021 3:26 PM EDT Oxygen Saturation 100% 04/27/2021 2:11 PM EDT Inhaled Oxygen Concentration - - Weight 59.8 kg (131 lb 14.4 oz) 04/27/2021 2:11 PM EDT Height - - Body Mass Index 24.12 02/04/2021 2:45 PM EDT documented in this encounter Functional [...] Take 4 mg by mouth once. 03/08/2022 predniSONE (DELTASONE) 10 mg Oral TabletIndications :Crohn's disease Take 10 mg by mouth 3 times daily. Indications: Crohn's disease 03/07/2022 traMADol (ULTRAM) 50 mg Oral Tablet 50 mg every 6 hours as needed. 10/18/2019 04/12/2022 documented as of this encounter Discharge Disposition Disposition Code Departure Means Destination Home or Self Care documented in this encounter Miscellaneous Notes * Patient Instructions - Elida Mckay RN - 04/27/2021 2:00 PM EDT General Acute Hospital Discharge Instructions Thank you for entrusting the [facility] with your care. We hope you are pleased with your outpatient care and services. Because we are most concerned with your health, we suggest you carefully read the following discharge instructions: Your Discharge Instructions: MEDICATION INSTRUCTIONS: Treatment received today: Briana Reviewed medications administered today and possible side effects and Contact your physician for questions about medications you take at home Dizziness and sleepiness are possible side effects of pain medication. When taking pain medications, do not drink alcohol or drive. ACTIVITY INSTRUCTIONS: Rest today, increase activity as tolerated. DIET INSTRUCTIONS: your regular diet as tolerated FOLLOW-UP CARE: Call your doctor for a follow-up appointment: Notify physician for complications such as: Fever over 101*, Rash, Hives, difficulty breathing, unrelieved nausea or pain, redness or swelling in one limb greater than the other, constipation, diarrhea, bleeding Please contact your physician if you have problems related to your procedure or if symptoms persistor worsen. If physician is unavailable, go to the Emergency Room. Additional Instructions: Our hours of operation are Monday - Monday 8:00 AM - 4:30 PM. [facility] [address] [place] [id number] [place] Rey[place] [address] [address] documented in this encounter Plan of Treatment Upcoming Encounters Date Type Department Care Team (Late st Contact Info) Description 09/11/2024 1:45 PM EST [facility] Visit [facility] [address] [facility] [place] [address] Swapnil Lopez MD [address] [place] [place] [facility] [address] 10/21/2024 2:[address] [facility] MRI [address] [place] [address] Jacky Shirley MD [address] [place] [address] [place], [place] [id number] 10/23/2024 1:45 PM EST Appointment [facility] ON[facility] [address] [place], [place] [phone] Olena Darby APRN [address] [place] [id number] documented as of this encounter Goals Goal Patient Goal Type Associated Problems Recent Progress Patient-Stated? Author Maintain a healthy diet, exercise regularly and maintain an ideal body weight General No Linda Walden, RMA documented as of this encounter Visit Diagnoses Diagnosis Crohn's disease of colon with complication (HCC)- Primary documented in this encounter Administered Medications Inactive Administered Medications - up to 1 most recent administrations Medication Order MAR Action Action Date Dose Rate Site vedolizumab (ENTYVIO) 300 mg in sodium chloride 0.9 % 250 mL 300 mg, Intravenous, EVERY 6 WEEKS, First dose on Mon04/27/21 at 1430, Until Discontinued, Administer over 30 Minutes, Administer over 30 minutes ORDER DATE: 10/09/20, Dx: 1. Crohn's disease of colon with complication (HCC)Indications:Crohn's disease of colon with complication (HCC) IV Started 04/27/2021 2:53 PM EDT 300 mg 560 mL/hr documented in this encounter Orders Medications Ordered That Paul ht Not Have Been Administered Count Last Ordered Date First Ordered Date 0.9 % NaCl infusion 1 04/27/2021 vedolizumab (ENTYVIO) 300 mg in sodium chloride 0.9 % 250 mL 1 04/27/2021 documented in this encounter
--- OUTSIDE RECORDS SUMMARY | 2024-08-15 13:55 | XMS_ITS | Encounter Summary ---
Author [place] [address] Care Team Providers Care Chauffeur Name Role Phone Unavailable Primary Care Provider Unavailabl e Reason for Visit * Reason Onset Date Comments Medication Management 06/04/2021 Encounter Details Date Type Department Care Team (Late st Contact Info) Description 06/04/2021 Telephone [facility] [place] [id number] Veda Palomino, RN Medication Management Social History Tobacco Use Types [...] encounter Miscellaneous Notes * Telephone Encounter - Kisha Obrien RN - 06/10/2021 9:09 AM EDT Pt is non compliant. She was here in Nov and [place] asked that she f/u in the office in 2 months. Basedon the note below I am guessing that she chose to go back to [facility] or . We will not be placing a therapy plan. Crohn's disease of both small and large intestine without complication (HCC) Currently on Entyvio therapy, next dose due on 11/19/20 I have instructed patient that she has to make a decision on whether to continue her IBD GI care with [facility] or [facility]. She expressed interest in going to [facility] for her care when she gets her Medicaid application approved. Reviewing her notes from [facility] and [facility], it is obvious that patient has a history ofn noncompliance to therapy and has changed providers multiple times She is mainly interested in getting her Lomotil refilled today I will assess chronic inflammatory markers * Telephone Encounter - Trinh Oglesby LPN - 06/04/2021 11:59 AM EDT andie is off for two weeks or so. Will forward to arturo or kisha if they can help. Pt is a [place] pt. * Telephone Encounter - Veda Elder RN - 06/04/2021 10:58 AM EDT I'm not sure if your office is prescribing the Entyvio for this patient. If you are, she is scheduled for her Entyvio on 06/08. There are no orders in her Therapy Plan. Can orders please be placed so that we don't have a delay in patient care? Thank you. documented in this encounter Plan of Treatment Upcoming Encounters Date Type Department Care Team (Late st Contact Info) Description 09/11/2024 1:45 PM EST Office Visit [facility] [address] [place] [place] [address] Swapnil Lopez MD [address] [place] [address] 10/21/2024 2:00 PM EST Appointment [facility] MRI [address] [place] [place] [address] Jacky Shirley MD [address] [place] [address] [place], [place] [id number] 10/23/2024 1:45 PM EST Appointment [facility] [place] [address] Olena Darby APRN [address] [place] [address] [place], [place] [id number] documented as of this encounter Goals Goal Patient Goal Type Associated Problems Recent Progress Patient-Stated? Author Maintain a healthy diet, exercise regularly and maintain an ideal body weight General Linda Perez, SHANNON documented as of this encounter Visit Diagnoses Not on filedocumented in this encounter
--- OUTSIDE RECORDS SUMMARY | 2024-08-15 13:55 | XMS_ITS | Encounter Summary ---
Author Organization [facility] Address [address] [place] [address] Care Team Providers Care Technical Stenographer Name Role Phone Unavailable Primary Care Provider Unavailabl e Reason for Visit * Reason Comments Post-Operative Exam Encounter Details Date Type Department Care Team (Latest Contact Info) Description 04/27/2021 10:30 AM EDT Office Visit [facility] [address] [place] [address] Henry Lantigua MD De Quervain's tenosynovitis (Primary Dx) Social History Tobacco Use Types [...] documented in this encounter Progress Notes * Henry Lantigua MD - 04/27/2021 11:12 AM EDT DATE OF SERVICE: 04/27/2021 HISTORY: Marleni Sy is one week postop de Quervain's release of the left wrist and is doing fine. Her wound looks good. She has negative Jeannette's test. No pain. Good range of motion. IMPRESSION: One week postop de Quervain's release of the left wrist. PLAN: We will get her sutures out. Back to normal activities. We will see if she has any problems with it. Henry Lantigua MD clc TID: [id number] RECEIPT: [id number] documented in this encounter Plan of Treatment Upcoming Encounters Date Type Department Care Team (Late st Contact Info) Description 09/11/2024 1:45 PM EST Office Visit [facility] [address] [place] [address] Swapnil Lopez MD [address] [place] [address] 10/21/2024 2:00 PM EST Appointment [facility] MRI [address] [place], [place] [address] Jacky Shirley MD [address] [place] [address] [place] [address] 10/23/2024 1:45 PM EST Appointment [facility] [place] [address] Olena Darby APRN [address] [place] [address] [place] [address] documented as of this encounter Goals Goal Patient Goal Type Associated Problems Recent Progress Patient-Stated? Author Maintain a healthy diet, exercise regularly and maintain an ideal body weight General Linda Perez, RMA documented as of this encounter Visit Diagnoses Diagnosis De Quervain's tenosynovitis- Primary Radial styloid tenosynovitis documented in this encounter
--- OUTSIDE RECORDS SUMMARY | 2024-08-15 13:55 | XMS_ITS | Encounter Summary ---
Author [place] [address] Care Team Providers Care Head Bucker Name Role Phone Unavailable Primary Care Provider Unavailabl e Reason for Visit * Reason Onset Date Comments Cancellation 06/08/2021 Pt left VM stati ng she will not be able to come to her Infusion appt today, grandson came home from [place] with COVID. Please call to reschedule Encounter Details Date Type Department Care Team (Late st Contact Info) Description 06/08/2021 [facility]phone [facility] [place] [address] Swapnil Lopez MD [address] [place] [address] Cancellation (Pt left VM stating she will not be able to come to her Infusion appt today, grandregi came home from [facility] with COVID. Please call to reschedule) Social History Tobacco Use Types [...] encounter Miscellaneous Notes * Telephone Encounter - Marie Downing APRN - 06/29/2021 11:28 AM EDT I called her and left VM to call me back. At this time she soul follow up with PCP for testing and may need to quarantine I will contact . Thanks * Telephone Encounter - Kate Henriquez - 06/29/2021 10:33 AM EDT Can you look into this and let me know if she can be scheduled? * Telephone Encounter - Faby Lazaro - 06/09/2021 11:33 AM EDT Can you follow up with this pt * Telephone Encounter - Harman Morrell CNA - 06/09/2021 7:35 AM EDT POD E * Telephone Encounter - Ronit Bernabe, Clerical Staff - 06/08/2021 2:09 PM EDT Reason for call: Pt left VM stating she will not be able to come to her Infusion appt today, grandregi came home from [facility] with COVID. Please call to reschedule Preferred call back number:[phone] Appt today at 130p documented in this encounter Plan of Treatment Upcoming Encounters Date Type Department Care Team (Late st Contact Info) Description 09/11/2024 1:45 PM EST Office Visit [facility] [address] [place] [address] Swapnil Lopez MD [address] [place] [address] 10/21/2024 2:00 PM EST Appointment [facility] [address] [place] [address] Jacky Shirley MD [address] [place] [address] [place] [address] 10/23/2024 1:45 PM EST Appointment [facility] [place] [address] Olena Darby APRN [address] [place] [address] [place] [address] documented as of this encounter Goals Goal Patient Goal Type Associated Problems Recent Progress Patient-Stated? Author Maintain a healthy diet, exercise regularly and maintain an ideal body weight General No Linda Walden, RMA documented as of this encounter Visit Diagnoses Not on filedocumented in this encounter
--- OUTSIDE RECORDS SUMMARY | 2024-08-15 13:55 | XMS_ITS | Encounter Summary ---
Author Organization [facility] Gastroente rology Address [address] [place] [address] Care Team Providers Care Marble Installation Helper Name Role Phone Unavailable Primary Care Provider Unavailabl e Reason for Visit * Reason Onset Date Comments Medication Refill 01/06/2022 Encounter Details Date Type Department Care Team (Late st Contact Info) Description 01/06/2022 Refill [facility] [address] [place] [address] Swapnil Lopez MD [address] [place] [address] Medication Refill Social History Tobacco [...] Telephone Encounter - Stephanie Ruff RMA - 01/06/2022 3:06 PM EDT vm from pt. that miguelangel was sent to [facility] and she needed it to [facility] [place].verbal ok to send From Dr. Monteiro thanks! documented in this encounter Plan of Treatment Upcoming Encounters Date Type Department Care Team (Late st Contact Info) Description 09/11/2024 1:45 PM EST Office Visit [facility] [address] [place] [address] Swapnil Lopez MD [address] [place] [address] 10/21/2024 2:00 PM EST Appointment [facility] [place] MRI [address] [place] [address] Jacky Shirley MD [address] [place] [address] [place] [address] 10/23/2024 1:45 PM EST Appointment [facility] [place] [address] Olena Darby APRN [address] [place] [address] [place] [address] documented as of this encounter Goals Goal Patient Goal Type Associated Problems Recent Progress Patient-Stated? Author Maintain a healthy diet, exercise regularly and maintain an ideal body weight General No Linda Walden, RMA documented as of this encounter Visit Diagnoses Not on filedocumented in this encounter
--- OUTSIDE RECORDS SUMMARY | 2024-08-15 13:55 | XMS_ITS | Encounter Summary ---
Author Organization [facility] [place] [address] Care Team Providers Care Player Development Executive Name Role Phone Unavailable Primary Care Provider Unavailabl e Encounter Details Date Type Department Care Team (Latest Contact Info) Description 04/15/2021 Travel Social History Tobacco Use Types Packs/Day [...] have Coronavirus / COVID-19? No / Unsure 04/15/2021 10:12 AM EDT documented as of this encounter Functional [...] PM EST Office Visit [facility] [address] [place] [facility] [place] [address] Swapnil Lopez MD [address] [place] [address] 10/21/2024 2:00 PM EST [facility]ment [facility] [address] [place] [facility] [place] [address] Jacky Shirley MD [address] [place] [address] [place], [place] [id number] 10/23/2024 1:45 PM EST Appointment [facility] [place] [address] Olena Darby APRN [address] [place] [address] [place], [place] [id number] documented as of this encounter Goals Goal Patient Goal Type Associated Problems Recent Progress Patient-Stated? Author Maintain a healthy diet, exercise regularly and maintain an ideal body weight General No Linda Walden RMA documented as of this encounter Visit Diagnoses Not on filedocumented in this encounter
--- OUTSIDE RECORDS SUMMARY | 2024-08-15 13:55 | XMS_ITS | Encounter Summary ---
Author Organization [facility] Gastroente rology Address [address] [place] [address] Care Team Providers Care Space Control Agent Name Role Phone Unavailable Primary Care Provider Unavailabl e Reason for Visit * Reason Onset Date Comments Medication Refill 12/08/2021 lomotil Encounter Details Date Type Department Care Team (Late st Contact Info) Description 12/08/2021 Telephone [facility] [address] [place] [facility] [place] [address] Trisha Blood RMA Medication Refill (lomotil) Social History Tobacco Use Types Packs/Day Years [...] Telephone Encounter - Mile Jiménez RMA - 12/08/2021 2:09 PM EST medication was called in. * Telephone Encounter - Trisha Blood RMA - 12/08/2021 11:13 AM EST 1. per other task from dr lopez, 2. OK to double Lomotil. please handle & inform pt. documented in this encounter Plan of Treatment Upcoming Encounters Date Type Department Care Team (Late st Contact Info) Description 09/11/2024 1:45 PM EST Office Visit [facility] [address] [place] [address] Swapnil Lopez MD [address] [place] [address] 10/21/2024 2:00 PM EST Appointment [facility] [address] [place] [address] Jacky Shirley MD [address] [place] [address] [place] [address] 10/23/2024 1:45 PM EST Appointment [facility] [place] [address] Olena Darby APRN [address] [place] [address] [place] [address] documented as of this encounter Goals Goal Patient Goal Type Associated Problems Recent Progress Patient-Stated? Author Maintain a healthy diet, exercise regularly and maintain an ideal body weight General No Linda Walden, RMA documented as of this encounter Visit Diagnoses Not on filedocumented in this encounter
--- OUTSIDE RECORDS SUMMARY | 2024-08-15 13:55 | XMS_ITS | Encounter Summary ---
Author Organization [facility] Gastroente rology Address [address] [place] [address] Care Team Providers Care Hair Specialist Name Role Phone Unavailable Primary Care Provider Unavailabl e Reason for Visit * Reason Onset Date Comments Medication Refill 11/30/2021 Encounter Details Date Type Department Care Team (Late st Contact Info) Description 11/30/2021 Refill [facility] [address] [place] [address] Swapnil Lopez MD [address] [place] [address] Medication Refill Social History Tobacco [...] 11:13 AM Gabby De La Graza RMA * Is the person blind or [...] mouth every 3 hours. 720 Capsule 3 11/30/2021 documented in this encounter Plan of Treatment Upcoming Encounters Date Type Department Care Team (Late st Contact Info) Description 09/11/2024 1:45 PM EST Office Visit [facility] [address] [place] [address] Swapnil Lopez MD [address] [place] [address] 10/21/2024 2:00 PM EST Appointment [facility] [address] [place] [address] Jacky Shirley MD [address] [place] [address] [place] [address] 10/23/2024 1:45 PM EST Appointment [facility] [place] [address] Olena Darby APRN [address] [place] [address] [place] [address] documented as of this encounter [...] loperamide (IMODIUM) 2 mg Oral Capsule Take 2 mg by mouth every 3 hours. Reorder 11/30/2021 documented as of this encounter Historical Medications * This list may reflect changes made after this encounter. loperamide (IMODIUM) 2 mg Oral Capsule Take 2 mg by mouth every 3 hours. 11/30/2021 added in this encounter
--- OUTSIDE RECORDS SUMMARY | 2024-08-15 13:55 | XMS_ITS | Encounter Summary ---
Author Organization [facility] Gastroente rology Address [address] [place] [address] Care Team Providers Care Cemetery Keeper Name Role Phone Unavailable Primary Care Provider Unavailabl e Encounter Details Date Type Department Care Team (Late st Contact Info) Description 12/08/2021 Orders Only [facility] [address] [place] [address] Swapnil Lopez MD [address] [place] [address] Diarrhea, unspecified type (Primary Dx); Crohn's disease of both small and large intestine without complication (HCC); Abdominal pain, unspecified abdominal location Social History Tobacco Use Types Packs/Day Years [...] as needed for 30 days for diarrhea 240 Tablet 12/08/2021 2 documented in this encounter Plan of Treatment Upcoming Encounters Date Type Department Care Team (Late st Contact Info) Description 09/11/2024 1:45 PM EST Office Visit [facility] [address] [place] [address] Swapnil Lopez MD [address] [place] [address] 10/21/2024 2:00 PM EST Appointment [facility] MRI [address] [place] [address] Jacky Shirley MD [address] [place] [address] [place] [address] 10/23/2024 1:45 PM EST Appointment [facility] [address] Olena Darby, YON [address] [facility] [place] [address] documented as of this encounter Goals Goal Patient Goal Type Associated Problems Recent Progress Patient-Stated? Author Maintain a healthy diet, exercise regularly and maintain an ideal body weight General No Linda Walden, RMA documented as of this encounter Visit Diagnoses Diagnosis Diarrhea, unspecified type- Primary Crohn's disease of both small and large intestine without complication (HCC) Regional enteritis of small intestine with large intestine Abdominal pain, unspecified abdominal location documented in this encounter Discontinued Medications Medication Sig Discontinue Reason Start Date End Da te diphenoxylate-atropine (LOMOTIL) 2.5-0.025 mg Oral TabletIndications:Crohn' s disease of both small and large intestine without complication (HCC) 2 tablets 3 times daily as needed for 30 days for diarrhea Reorder 11/11/2020 12/08/2021 documented as of this encounter
--- OUTSIDE RECORDS SUMMARY | 2024-08-15 13:55 | XMS_ITS | Encounter Summary ---
Author Organization [facility] Gastroente rology Address [address] [place] [address] Care Team Providers Care Wolf Hunter Name Role Phone Swapnil Lopez MD Unavailable [phone] Reason for Visit * Oncology Medication Prior Authorization (Routine) - Closed Specialty Diagnoses / Procedures Referred By Lata deal Referred To Contact Diagnoses Crohn's disease with complication, unspecified gastrointestinal tract location (HCC) Procedures NV USTEKINUMAB, IV INJECT, 1 MG Swapnil Lopez MD [address] [place] [address] Phone: tel: fax: [facility] [address] [place] [address] Phone: tel: Referral ID Status Reason Start Date Expiration Date Visits Re quested Visits Authorized [id number] Closed 01/24/2022 01/24/2023 1 1 Encounter Details Date Type Department Care Team (Latest Contact Info) Description 02/16/2022 11:00 AM EDT Office Visit [facility] [address] [place] [address] Crohn's disease with complication, unspecified gastrointestinal tract location (HCC) (Primary Dx) Social History Tobacco Use [...] Sign Reading Time Taken Comments Blood Pressure 134/74 02/16/2022 11:57 AM EDT Pulse 80 02/16/2022 11:57 AM EDT Temperature 36.4 ??C (97.6 ??F) 02/16/2022 11:57 AM E DT Respiratory Rate 14 02/16/2022 11:57 AM EDT Oxygen Saturation - - Inhaled Oxygen Concentration - - Weight 64.7 kg (142 lb 9.6 oz) 02/16/2022 10:39 AM EDT Height - - Body Mass Index 26.08 02/04/2021 2:45 PM EDT documented in this [...] Gabby Mercedes RMA documented in this encounter Patient Instructions * Attachments The following attachments cannot be sent through Care Everywhere. * Ustekinumab, ADULT (Citizen Of [place]) documented in this encounter Progress Notes * Mile Gaviria RN - 02/16/2022 11:00 AM EDT Infusion tolerated well. documented in this encounter Plan of Treatment Upcoming Encounters Date Type Department Care Team (Late st Contact Info) Description 09/11/2024 1:45 PM EST Office Visit [facility] [address] [place] [facility] [address] Swapnil Lopez MD [address] [place] [address] 10/21/2024 2:00 PM EST Appointment [facility] MRI [address] [place] [address] Jacky Shirley MD [address] [place] [address] 10/23/2024 1:45 PM EST Appointment [facility] [place] [address] Olena Darby APRN [address] [place] [address] documented as of this encounter Goals Goal Patient Goal Type Associated Problems Recent Progress Patient-Stated? Author Maintain a healthy diet, exercise regularly and maintain an ideal body weight General No Linda Walden RMA documented as of this encounter Visit Diagnoses Diagnosis Crohn's disease with complication, unspecified gastrointestinal tract location (HCC)- Primary documented in this encounter Administered Medications Inactive Administered Medications - up to 1 most recent administrations Medication Order MAR Action Action Date Dose Rate Site 0.9 % NaCl infusion Intravenous, at 30 mL/hr, CONTINUOUS, Starting on Mon02/16/22 at 1100, Until Mon02/16/22 at 1604, For line servicer during infusion., Dx: 1. Crohn's disease with complication, unspecified gastrointestinal tract location (HCC)Indications:Crohn's disease with complication, unspecified gastrointestinal tract location (HCC) New Bag 02/16/2022 11:54 AM EDT 30 mL/hr ustekinumab (STELARA) 390 mg in sodium chloride 0.9 % infusion 390 mg, Intravenous, ONCE, 1 dose, On Mon02/16/22 at 1100, Administer over 60 Minutes, Administer over at least one hour., Dx: 1. Crohn's disease with complication, unspecified gastrointestinal tract location (HCC)Indications:Crohn's disease with complication, unspecified gastrointestinal tract location (HCC) IV Started 02/16/2022 10:54 AM EDT 390 mg 250 mL/hr documented in this encounter Care Teams Wolf Hunter Relationship Specialty Start Date End Date Swapnil Lopez MD [address] [place] [address] Internal Medicine-Gastroenterology 02/16/22 documented as of this encounter
--- OUTSIDE RECORDS SUMMARY | 2024-08-15 13:55 | XMS_ITS | Encounter Summary ---
Author Organization [facility] Gastroente rology Address [address] [place] [address] Care Team Providers Care Ct Technician Name Role Phone Unavailable Primary Care Provider Unavailabl e Encounter Details Date Type Department Care Team (Late st Contact Info) Description 01/06/2022 Orders Only [facility] [address] [place] [address] César Monteiro MD [address] [place] [address] Crohn's disease of both small [...] for 30 days for diarrhea 240 Tablet 01/06/2022 2 documented in this encounter Plan of Treatment Upcoming Encounters Date Type Department Care Team (Late st Contact Info) Description 09/11/2024 1:45 PM EST Office Visit [facility] [address] [place] [address] Swapnil Lopez MD [address] [place] [address] 10/21/2024 2:00 PM EST Appointment [facility] MRI [address] [place] [address] Jacky Shirley MD [address] [facility] [address] 10/23/2024 1:45 PM EST Appointment [facility] [place] [address] Olena Darby APRN [address] [facility] [place] [address] documented as of this encounter Goals Goal [...] needed for 30 days for diarrhea Reorder 12/08/2021 01/06/2022 documented as of this encounter
--- OUTSIDE RECORDS SUMMARY | 2024-08-15 13:55 | XMS_ITS | Encounter Summary ---
Author Organization [place] [address] Care Team Providers Care Product Line Manager Name Role Phone Unavailable Primary Care Provider Unavailabl e Encounter Details Date Type Department Care Team (Latest Contact Info) Description 01/20/2022 2:08 PM EDT - 01/20/2022 2:49 PM EDT Hospital Encounter [facility] [address] [place] [address] Crohn's disease with complication, unspecified gastrointestinal tract [...] PM EST Office Visit [facility] [address] [place] [address] Swapnil Lopez MD [address] [address] 10/21/2024 2:00 PM EST Appointment [facility] [address] [place] [address] Jacky Shirley MD [address] [place] [address] [facility] [place], [place] [id number] 10/23/2024 1:45 PM EST Appointment [facility] [place] [address] Olena Darby APRN [address] [place] [address] [place] [address] documented as of this encounter Goals Goal Patient Goal Type Associated Problems Recent Progress Patient-Stated? Author Maintain a healthy diet, exercise regularly and maintain an ideal body weight General No Linda Walden, RMA documented as of this encounter Procedures Procedure Name Priority Date/Time Associated Diagnosis Comments HEPATITIS B CORE AB TOTAL Routine 01/20/2022 2:19 PM EDT Crohn's disease with complication, unspecified gastrointestinal tract location (HCC) QUANTIFERON TB GOLD Routine 01/20/2022 2 :19 PM EDT Crohn's disease with complication, unspecified gastrointestinal tract location (HCC) HISTOPLASMA ANTIGEN, URINE - REF LAB Routine 01/20/2022 2:19 PM EDT Crohn's disease with complication, unspecified gastrointestinal tract location (HCC) HEPATITIS B SURFACE ANTIBODY Routine 01/20/2022 2:19 PM EDT Crohn's disease with complication, unspecified gastrointestinal tract location (HCC) HEPATITIS B SURFACE ANTIGEN Routine 01/20/2022 2:19 PM EDT Crohn's disease with complication, unspecified gastrointestinal tract location (HCC) CBC WITH DIFF Routine 01/20/2022 2:19 PM EDT Crohn's disease with complication, unspecified gastrointestinal tract location (HCC) HEPATIC FUNCTION PANEL Routine 01/20/2022 2:19 PM EDT Crohn's disease with complication, unspecified gastrointestinal tract location (HCC) LIPID SCREEN Routine 01/20/2022 2:19 PM EDT Crohn's disease with complication, unspecified gastrointestinal tract location (HCC) documented in this encounter Results * QUANTIFERON TB GOLD (01/20/2022 2:19 PM EDT) Quantiferon-TB Gold in Tube Negative Negative, Indeterminate 01/21/2022 4:58 PM EDT [facility], [facility] Quantiferon Mitogen minus NIL 3.7877 IU/mL 01/21/2022 4:58 PM EDT [facility], [facility] Quantiferon NIL 0.0223 IU/mL 01/21/2022 4:58 PM EDT [facility], [facility] QUANTIFERON TB1 MINUS NIL 0.002 IU/mL 01/21/2022 4:58 PM EDT [facility], [facility] QUANTIFERON TB2 MINUS NIL -0.0032 IU/mL 01/21/2022 4:[address] [facility] Blood VENOUS BLOOD / Unknown Venipuncture / Unknown 01/20/2022 2:19 PM EDT 01/20/2022 2:19 PM EDT Narrative [facility], [facility] - 01/21/2022 4:58 PM EDT Interferon gamma release is measured for patient specimens from each of four tubes. A qualitative result of Negative, Positive or Indeterminate is based on the interpretation of four values. The Nil value adjusts for background, heterophile antibody effects or nonspecific reactivity in the patient specimen. The Mitogen- Nil value serves as the positive control for the specimen and indicates successful lymphocyte activity. The TB1-Nil and TB2-Nil represent lymphocyte reactivity that has been stimulated by two distinct TB antigens and if either is reactive it is considered a positive result. Diagnosing or excluding tuberculosis disease, and assessing the probability of latent tuberculosis infection (LTBI), requires a combination of epidemiological, medical, and diagnostic findings that should be taken into account when interpreting QuantiFERON TB Gold results. us Swapnil Lopez MD IMMUNOLOGY ORDERABLES Final Re sult [facility], [facility] [address] [facility] , [place] [address] * (ABNORMAL) LIPID SCREEN (01/20/2022 2:19 PM EDT) Cholesterol 246(H) <200 mg/dL 01/20/2022 7:58 PM EDT [facility] [employer] Comment: < 200 ?Desirable 200 - 239 ? Borderline High >= 240 ?High Triglyceride 105 <150 mg/dL 01/20/2022 7:58 PM EDT [employer] Comment: < 150 ? Normal 150 - 199 ?Borderline High 200 - 499 ?High ??>= 500 ? Very High HDL 77 >=40 mg/dL 01/20/2022 7:58 PM EDT [employer] Comment: ??> 60 ?Optimal 40 - 60 ?Acceptable ?? < 40 ?Low LDL Calculated 151(H) <100 mg/dL 01/20/2022 7:58 PM EDT [employer] Comment: < 100 ?Optimal 100 - 129 ? Near or above optimal 130 - 159 ? Borderline High 160 - 189 ? High >= 190 ?Very High Non-HDL-C Calculated 169(H) <=129 mg/dL 01/20/2022 7:58 PM EDT [employer] Comment: <130 ?Desirable 130-159 Above Desirable 160-189 Borderline High 190-219 High >= 220 ??Very High Fasting Specimen? No None 022 7:58 PM EDT [facility] Blood VENOUS BLOOD / Unknown Venipuncture / Unknown 01/20/2022 2:19 PM EDT 01/20/2022 2:19 PM EDT us Swapnil Lopez MD CHEMISTRY ORDERABLES Final Res ult [facility] [employer] [address] [facility] , [address] [place] [id number] [facility] [address] [place] [id number] * HISTOPLASMA ANTIGEN, URINE - REF LAB (01/20/2022 2:19 PM EDT) Pathologist [facility] U Histoplasma Ag EIA Not Detected ng/mL 01/22/2022 12:49 PM EDT [employer] U Histoplasma Antigen Detectio Not Detected Not Detected 01/22/2022 12:49 PM EDT [employer] Comment: INTERPRETIVE DATA: Histoplasma Galactomannan Antigen ? Quantitative by EIA, Urine Less than 0.4 ng/ml = Not Detected 0.4-3.1 ng/mL = Detected (below the limit of quantification) 3.2-20.0 ng/mL = Detected Greater than 20.0 ng/mL = Detected (above the limit of quantification) The quantitative range of this assay is 3.2-20.0 ng/mL. ??Antigen concentrations between 0.4-3.1 or >20.0 ng/mL fall outside the linear range of the assay and cannot be accurately quantified. This EIA test should be used in conjunction with other diagnostic procedures, including microbiological culture, histological examination of biopsy samples, and/or radiographic evidence, to aid in the diagnosis of histoplasmosis. This test was developed and its performance characteristics determined by [facility]. It has not been cleared or approved by the [place] Food and Drug Administration. This test was performed in a CLIA certified laboratory and is intended for clinical purposes. Performed By: [facility] [address] [place] [address] Jewel Bearing Driller: Norma Bryan MD Urine URINE SPECIMEN COLLECTION / Unknown 01/20/2022 2:19 PM EDT 01/20/2022 2:19 PM EDT us Swapnil Lopez MD URINE ORDERABLES Final Result [employer] [address] [place] [id number] * HEPATITIS B SURFACE ANTIGEN (01/20/2022 2:19 PM EDT) [facility] Hep Bs Ag Non-Reactiv e Non-Reacti ve 01/20/2022 9:01 PM EDT [facility] [employer] Blood VENOUS BLOOD / Unknown Venipuncture / Unknown 01/20/2022 2:19 PM EDT 01/20/2022 2:19 PM EDT Swapnil Lopez MD CHEMISTRY ORDERABLES Final Res ult Performing Organization Address [facility] Co de Phone Number [facility] [address] [facility] , [place] [address] * HEPATITIS B SURFACE ANTIBODY (01/20/2022 2:19 PM EDT) Pathologist [facility] Hep Bs Ab <3.08 mIU/mL 01/20/2022 9:02 PM EDT [facility] Comment: < 8.00 mIU/mL ? - NON REACTIVE (Not immune to HBV infection) 8.0 - 11.99 mIU/mL ?- GRAYZONE (Immune status should be further assessed by considering other factors such as clinical status, follow up testing, associated risk factors, and the use of additional diagnostic information.) >= 12.00 mIU/mL ? - REACTIVE (Immune to HBV infection.) Blood VENOUS BLOOD / Unknown Venipuncture / Unknown 01/20/2022 2:19 PM EDT 01/20/2022 2:19 PM EDT Swapnil Lopez MD IMMUNOLOGY ORDERABLES Final Re sult Performing Organization Address [facility] Co de Phone Number [facility] [address] [facility] , [place] [address] * HEPATITIS B CORE AB TOTAL (01/20/2022 2:19 PM EDT) Pathologist [facility] Hep B Core Total Non-Reacti ve Non-Reacti ve 01/20/2022 9:01 PM EDT [facility] Blood VENOUS BLOOD / Unknown Venipuncture / Unknown 01/20/2022 2:19 PM EDT 01/20/2022 2:19 PM EDT Swapnil Lopez MD IMMUNOLOGY ORDERABLES Final Re sult Performing Organization Address [facility] Co de Phone Number [facility], [facility] [address] [facility] , [place] [address] * HEPATIC FUNCTION PANEL (01/20/2022 2:19 PM EDT) Total Protein 7.3 6.4 - 8.3 gm/dL 01/20/2022 7:58 PM EDT [facility] Albumin 4.4 3.2 - 4.6 gm/dL 01/20/2022 7:58 PM EDT [facility] Bili Direct <0.2 0.0 - 0.3 mg/dL 01/20/2022 7:58 PM EDT [facility] Bili Total 0.2 0.1 - 1.3 mg/dL 01/20/2022 7:58 PM EDT [facility] AST 18 <=40 U/L 01/20/2022 7:58 PM EDT [facility] ALT 15 <=41 U/L 01/20/2022 7:58 PM EDT [facility] Alk Phos 63 36 - 123 U/L 01/20/2022 7:58 PM EDT [facility] Blood VENOUS BLOOD / Unknown Venipuncture / Unknown 01/20/2022 2:19 PM EDT 01/20/2022 2:19 PM EDT us Swapnil Lopez MD CHEMISTRY ORDERABLES Final Res ult Performing Organization Address [facility]/ZIP Co de Phone Number [facility], [facility] [address] [facility] , [place] [address] * (ABNORMAL) CBC WITH DIFF (01/20/2022 2:19 PM EDT) WBC 7.5 3.7 - 10.3 x10(3)/mcL 01/20/2022 7:56 PM EDT [facility] RBC 4.32 3.90 - 5.20 x10(6)/mcL 01/20/2022 7:56 PM EDT [facility] Hgb 11.9 11.2 - 15.7 g/dL 01/20/2022 7:56 PM EDT [facility] Hct 38.5 34.0 - 45.0 % 01/20/2022 7:56 PM EDT [facility] MCV 89.1 80.0 - 100.0 fL 01/20/2022 7:56 PM EDT [facility] MCH 27.5 26.0 - 34.0 pg 01/20/2022 7:56 PM EDT [facility] MCHC 30.9 30.7 - 35.5 g/dL 01/20/2022 7:56 PM EDT [facility] RDW 14.3 <=14.9 % 01/20/2022 7:56 PM EDT [facility] Platelet 254 155 - 369 x10(3)/mcL 01/20/2022 7:56 PM EDT [facility] MPV 9.4 8.8 - 12.5 fL 01/20/2022 7:56 PM EDT [facility] Neut Percent 84.2 % 01/20/2022 7:56 PM EDT [facility] Comment:Neutrophils equals s egs plus bands Imm Gran% 0.9 % 01/20/2022 7:56 PM EDT [facility] Comment:Automated count of m etamyelocytes, myelocytes and promyelocytes. Lymph Percent 10.2 % 01/20/2022 7:56 PM EDT [facility] [place] Percent 4.2 % 01/20/2022 7:56 PM EDT [facility] Eos Percent 0.1 % 01/20/2022 7:56 PM EDT [facility] Baso Percent 0.4 % 01/20/2022 7:56 PM EDT [facility] Neut # 6.3(H) 1.6 - 6.1 x10(3)/mcL 01/20/2022 7:56 PM EDT [facility] Comment:Neutrophils equals s egs plus bands IMMGRAN# 0.1 0.0 - 0.1 x10(3)/mcL 01/20/2022 7:56 PM EDT [facility] Comment:Automated count of m etamyelocytes, myelocytes and promyelocytes. An absolute IG <0.1 is reported as 0.0. Lymph # 0.8(L) 1.2 - 3.9 x10(3)/mcL 01/20/2022 7:56 PM EDT [facility] [place] # 0.3 0.3 - 0.9 x10(3)/[facility] 01/20/2022 7:56 PM EDT [facility] Eos# 0.0 0.0 - 0.5 x10(3)/[facility] 01/20/2022 7:56 PM EDT [facility] Baso # 0.0 0.0 - 0.1 x10(3)/[facility] 01/20/2022 7:56 PM EDT [facility] Blood VENOUS BLOOD / Unknown Venipuncture / Unknown 01/20/2022 2:19 PM EDT 01/20/2022 2:19 PM EDT us Swapnil Lopez MD HEMATOLOGY ORDERABLES Final Re sult [facility], [facility] [address] [facility] , [place] [address] documented in this encounter Visit Diagnoses Diagnosis Crohn's disease with complication, unspecified gastrointestinal tract location (HCC) documented in this encounter
--- OUTSIDE RECORDS SUMMARY | 2024-08-15 13:55 | XMS_ITS | Encounter Summary ---
Author [place] [address] Care Team Providers Care Clinical Veterinarian Name Role Phone Unavailable Primary Care Provider Unavailabl e Encounter Details Date Type Department Care Team (Late st Contact Info) Description 06/09/2021 Orders Only [place] [address] Isaak Pepe, [facility] Social History Tobacco Use Types Packs/Day Years [...] PM EST Office Visit [facility] [address] [place] [address] Swapnil Lopez MD [address] [address] 10/21/2024 2:00 PM EST Appointment [facility] [address] [place] [address] Jacky Shirley MD [address] [place] [address] [place] [address] 10/23/2024 1:45 PM EST Appointment [facility] [place] [address] Olena Darby APRN [address] [place] [address] [place] [address] documented as of this encounter Goals Goal Patient Goal Type Associated Problems Recent Progress Patient-Stated? Author Maintain a healthy diet, exercise regularly and maintain an ideal body weight General No Linda Walden RMA documented as of this encounter Visit Diagnoses Not on filedocumented in this encounter
--- OUTSIDE RECORDS SUMMARY | 2024-08-15 13:55 | XMS_ITS | Encounter Summary ---
Author Organization [facility] [place] [address] Care Team Providers Care Hospital Housekeeper Name Role Phone Unavailable Primary Care Provider Unavailabl e Encounter Details Date Type Department Care Team (Latest Contact Info) Description 01/20/2022 Travel Social History Tobacco Use Types Packs/Day [...] PM EST Office Visit [facility] [address] [place] [address] Swapnil Loepz MD [address] [place] [address] 10/21/2024 2:00 PM EST [facility]ointment [facility] [address] [facility] [address] Jacky Shirley MD [address] [place] [address] [place], [place] [id number] 10/23/2024 1:45 PM EST Appointment [facility] [place] [address] Olena Darby APRN [address] [place] [address] [place] [id number] documented as of this encounter Goals Goal Patient Goal Type Associated Problems Recent Progress Patient-Stated? Author Maintain a healthy diet, exercise regularly and maintain an ideal body weight General No Linda Walden RMA documented as of this encounter Visit Diagnoses Not on filedocumented in this encounter
--- OUTSIDE RECORDS SUMMARY | 2024-08-15 13:55 | XMS_ITS | Encounter Summary ---
Author Organization [facility] Address [address] [place] [address] Care Team Providers Care Senior Chemist Name Role Phone Unavailable Primary Care Provider Unavailabl e Reason for Visit * Reason Onset Date Comments Biologics 12/06/2021 remicade Encounter Details Date Type Department Care Team (Late st Contact Info) Description 12/06/2021 Telephone [facility] [address] [place] [address] Trisha Blood RMA Biologics (remicade) Social History Tobacco Use Types Packs/Day Years [...] Telephone Encounter - Trisha Blood RMA - 01/21/2022 1:36 PM EDT pt lvm that she got testing done. pending. * Telephone Encounter - Trisha Blood RMA - 01/10/2022 10:52 AM EDT sw pt, she is fine starting stelara. she will go for her testing this week. * Telephone Encounter - Trisha Blood RMA - 01/10/2022 9:29 AM EDT pt lvm not understanding why we were starting xeljanz. lvm for pt letting her know xeljanz is for [facility] & we are starting steleara. also advised I am waiting for the pretesting to be done. * Telephone Encounter - Trisha Blood RMA - 12/23/2021 9:25 AM EDT pretesting not done. * Telephone Encounter - Trisha Blood RMA - 12/23/2021 9:23 AM EDT rec'd ax from [facility], infusion approved 12/27/21 to 02/21/22, ref # [id number]. * Telephone Encounter - Trisha Blood RMA - 12/22/2021 12:14 PM EDT lvm to remind pt to get pretesting done. * Telephone Encounter - Trisha Blood RMA - 12/22/2021 12:11 PM EDT called lili apotne for stelara infusion. 59 hr rvw. ref # [id number]. faxed docs to [phone]. * Telephone Encounter - Trisha Blood RMA - 12/16/2021 9:23 AM EDT rec'd vob: To initiate PA/PreD, please contact Pre Auth Dept . [facility] - . Administration and Drug are covered at 100% of contracted rates. Deductible and coinsurance do not apply. [facility] is the specialty pharm. * Telephone Encounter - Trisha Blood RMA - 12/09/2021 5:29 PM EST requested vob for stelara on eblu. * Telephone Encounter - Trisha Blood RMA - 12/09/2021 5:[address] lopez. he wants to start stelara. * Telephone Encounter - Trisha Blood RMA - 12/09/2021 8:45 AM EST joaquin bravo, is taking care of the lomotil. * Telephone Encounter - Swapnil Lopez MD - 12/07/2021 3:09 PM EST OK to proceed with Xeljanz 2. OK to double Lomotil * Telephone Encounter - Trisha Blood RMA - 12/07/2021 1:52 PM EST pt says if she takes double the lomotil with her tramadol, she feels great. 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 please advise. also, pt is wanting to try xeljanz. will give her samples to try once she is cleared to start it. * Telephone Encounter - Trisha Blood RMA - 12/07/2021 1:50 PM EST pt lvm. sw pt, she says she wants to double her lomotil because taking that doubled w/her tramadol makes her feel right. she has lots of energy and it helps the fistula to close. * Telephone Encounter - Trisha Blood RMA - 12/06/2021 4:03 PM EST sw pt, she is willing to try xeljanz. put pretesting order in epic. 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 said she is ready to kill herself. she will sign any papers to be able to try remicade. 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 she says she is desperate. please advise. documented in this encounter Plan of Treatment Upcoming Encounters Date Type Department Care Team (Late st Contact Info) Description 09/11/2024 1:45 PM EST Office Visit [facility] [address] [place] [address] Swapnil Lopez MD [address] [place] [address] 10/21/2024 2:00 PM EST Appointment [facility] [address] [place] [address] Jacky Shirley MD [address] [place] [address] [facility] [place], [place] [id number] 10/23/2024 1:45 PM EST Appointment [facility] [place], [place] [id number] Olena Darby APRN [address] [facility] [place] [address] documented as of this encounter Goals Goal Patient Goal Type Associated Problems Recent Progress Patient-Stated? Author Maintain a healthy diet, exercise regularly and maintain an ideal body weight General No Linda Walden, RMA documented as of this encounter Results * XR CHEST PA AND LATERAL (01/20/2022 2:55 PM EDT) Anatomical Region Laterality Modality Chest Radiographic Leora ging 01/20/2022 2:55 PM EDT Impressions 01/20/2022 3:04 PM EDT No acute finding. - Note: Radiology results need to be interpreted within a comprehensive clinical context. ??If you have questions about the radiology report, please contact the office of the ordering clinician. Narrative 01/20/2022 3:04 PM EDT PA AND LATERAL CHEST X-RAY, ??01/20/2022 2:55 PM CLINICAL HISTORY: ??K50.919-Crohn's disease, unspecified, with unspecified complications (HCC)-ICD-10-CM COMPARISON: ??12/26/2019. PROCEDURE COMMENTS: Frontal and lateral views of the chest. FINDINGS: The lungs are clear. The costophrenic sulci are sharp. There is no pneumothorax. The heart and mediastinal contours are normal. There are no acute osseous findings in the chest. Procedure Note Latisha Gastelum MD - 01/20/2022 PA AND LATERAL CHEST X-RAY, 01/20/2022 2:55 PM CLINICAL HISTORY: K50.919-Crohn's disease, unspecified, withunspecified complications (HCC)-ICD-10-CM COMPARISON: 12/26/2019. PROCEDURE COMMENTS: Frontal and lateral views of the chest. FINDINGS: The lungs are clear. The costophrenic sulci are sharp. There isno pneumothorax. The heart and mediastinal contours are normal. There are noacute osseous findings in the chest. IMPRESSION: No acute finding. - Note: Radiology results need to be interpreted within a comprehensiveclinical context. If you have questions about the radiology report, please contactthe office of the ordering clinician. Swapnil Lopez MD IM DIAGNOSTIC IMAGING ORDERAB LES Final Result * QUANTIFERON TB GOLD (01/20/2022 2:19 PM EDT) [facility] Quantiferon-TB Gold in Tube Negative Negative, Indeterminate 01/21/2022 4:58 PM EDT [facility] Quantiferon Mitogen minus NIL 3.7877 IU/mL 01/21/2022 4:58 PM EDT [facility] Quantiferon NIL 0.0223 IU/mL 01/21/2022 4:58 PM EDT [facility] QUANTIFERON TB1 MINUS NIL 0.002 IU/mL 01/21/2022 4:58 PM EDT [facility] QUANTIFERON TB2 MINUS NIL -0.0032 IU/mL 01/21/2022 4:58 PM EDT [facility] Blood VENOUS BLOOD / Unknown Venipuncture / Unknown 01/20/2022 2:19 PM EDT 01/20/2022 2:19 PM EDT Narrative [facility] - 01/21/2022 4:58 PM EDT Interferon gamma [...] MD IMMUNOLOGY ORDERABLES Final Re sult [facility] [address] [facility] , [place] [address] * (ABNORMAL) LIPID SCREEN (01/20/2022 2:19 PM EDT) Cholesterol 246(H) <200 mg/dL 01/20/2022 7:58 PM EDT [employer] Comment: < 200 ?Desirable 200 - 239 ? Borderline High >= 240 ?High Triglyceride 105 <150 mg/dL 01/20/2022 7:58 PM EDT [employer] Comment: < 150 ? Normal 150 - 199 ?Borderline High 200 - 499 ?High ??>= 500 ? Very High HDL 77 >=40 mg/dL 01/20/2022 7:58 PM EDT [employer] Comment: ??> 60 ?Optimal 40 - 60 ?Acceptable ?? < 40 ?Low LDL Calculated 151(H) <100 mg/dL 01/20/2022 7:58 PM EDT [employer] Comment: < 100 ?Optimal 100 - 129 ? Near or above optimal 130 - 159 ? Borderline High 160 - 189 ? High >= 190 ?Very High Non-HDL-C Calculated 169(H) <=129 mg/dL 01/20/2022 7:58 PM EDT [employer] Comment: <130 ?Desirable 130-159 Above Desirable 160-189 Borderline High 190-219 High >= 220 ??Very High Fasting Specimen? No None 022 7:58 PM EDT [facility] Blood VENOUS BLOOD / Unknown Venipuncture / Unknown 01/20/2022 2:19 PM EDT 01/20/2022 2:19 PM EDT Swapnil Lopez MD CHEMISTRY ORDERABLES Final Res ult [facility] [address] [facility], [place] [address] [facility] 1 [place], [place] [id number] * HISTOPLASMA ANTIGEN, URINE - REF LAB (01/20/2022 2:19 PM EDT) U Histoplasma Ag EIA Not Detected ng/mL 01/22/2022 12:49 PM EDT [facility] U Histoplasma Antigen Detectio Not Detected Not Detected 01/22/2022 12:49 PM EDT [facility] [employer] Comment: INTERPRETIVE DATA: Histoplasma Galactomannan [...] developed and its performance characteristics determined by [facility]. It has not been cleared or approved by the [place] Food and Drug Administration. This test was performed in a CLIA certified laboratory and is intended for clinical purposes. Performed By: [facility] [address] [place] [id number] Exchange Teller: Norma Bryan MD Urine URINE SPECIMEN COLLECTION / Unknown 01/20/2022 2:19 PM EDT 01/20/2022 2:19 PM EDT Swapnil Lopez MD URINE ORDERABLES Final Result [facility] [address] [place] [address] * HEPATITIS B SURFACE ANTIGEN (01/20/2022 2:19 PM EDT) Hep Bs Ag Non-Reactiv e Non-Reacti ve 01/20/2022 9:01 PM EDT [facility] Blood VENOUS BLOOD / Unknown Venipuncture / Unknown 01/20/2022 2:19 PM EDT 01/20/2022 2:19 PM EDT Swapnil Lopez MD CHEMISTRY ORDERABLES Final Res ult Performing Organization Address [facility] Co de Phone Number [facility] [employer] [address] , [place] [address] * HEPATITIS B SURFACE ANTIBODY (01/20/2022 2:19 PM EDT) Hep Bs Ab <3.08 mIU/mL 01/20/2022 9:02 PM EDT [facility] Comment: < 8.00 mIU/mL ? - NON [...] 2:19 PM EDT us Swapnil Lopez MD IMMUNOLOGY ORDERABLES Final Re sult Performing Organization Address [facility] Co de Phone Number [facility] [employer] [address] , [place] [address] * HEPATITIS B CORE AB TOTAL (01/20/2022 2:19 PM EDT) Pathologist [facility] Hep B Core Total Non-Reacti ve Non-Reacti ve 01/20/2022 9:01 PM EDT [facility] Blood VENOUS BLOOD / Unknown Venipuncture / Unknown 01/20/2022 2:19 PM EDT 01/20/2022 2:19 PM EDT Swapnil Lopez MD IMMUNOLOGY ORDERABLES Final Re sult Performing Organization Address [facility] Co de Phone Number [facility], [facility] [address] [facility] , [place] [address] * HEPATIC FUNCTION PANEL (01/20/2022 2:19 PM EDT) [facility] Total Protein 7.3 6.4 - 8.3 gm/dL [...] ORDERABLES Final Res ult Performing Organization Address [facility]/ZIP Co de Phone Number [facility], [facility] [address] [facility] , [place] [address] * (ABNORMAL) CBC WITH DIFF (01/20/2022 2:19 PM EDT) [facility] WBC 7.5 3.7 - 10.3 x10(3)/mcL 01/20/2022 [...] 7:56 PM EDT [facility] Cotton Percent 4.2 % 01/20/2022 7:56 PM EDT [facility] Eos Percent 0.1 % 01/20/2022 7:56 PM EDT [facility] Baso Percent 0.4 % 01/20/2022 7:56 PM EDT [facility] Neut # 6.3(H) 1.6 - 6.1 x10(3)/[facility] 01/20/2022 7:56 PM EDT [facility] Comment:Neutrophils equals s egs plus bands IMMGRAN# 0.1 0.0 - 0.1 x10(3)/[facility] 01/20/2022 7:56 PM EDT [facility] Comment:Automated count of m etamyelocytes, myelocytes and promyelocytes. An absolute IG <0.1 is reported as 0.0. Lymph # 0.8(L) 1.2 - 3.9 x10(3)/[facility] 01/20/2022 7:56 PM EDT [facility] Cotton # 0.3 0.3 - 0.9 x10(3)/[facility] 01/20/2022 7:56 PM EDT [facility], [facility] Eos# 0.0 0.0 - 0.5 x10(3)/[facility] 01/20/2022 7:56 PM EDT [facility], [facility] Baso # 0.0 0.0 - 0.1 x10(3)/[facility] 01/20/2022 7:56 PM EDT [facility] Blood VENOUS BLOOD / Unknown Venipuncture / Unknown 01/20/2022 2:19 PM EDT 01/20/2022 2:19 PM EDT us Swapnil Lopez MD HEMATOLOGY ORDERABLES Final Re sult [facility] 1 [facility] , [address] [place] [id number] documented in this encounter Visit Diagnoses Diagnosis Crohn's disease with complication, unspecified gastrointestinal tract location (HCC)- Primary Crohn's disease with complication, unspecified gastrointestinal tract location (HCC) documented in this encounter
--- OUTSIDE RECORDS SUMMARY | 2024-08-15 13:55 | XMS_ITS | Encounter Summary ---
Author Organization [facility] Address [address] [facility] [place] [address] Care Team Providers Care Name Plate Stamping Machine Operator Name Role Phone Unavailable Primary Care Provider Unavailabl e Encounter Details Date Type Department Care Team (Late st Contact Info) Description 12/08/2021 Orders Only [facility] [address] [facility], [place] [phone] Mile Jiménez RMA Diarrhea of infectious origin (Primary Dx) Social History Tobacco Use Types [...] PM EST Office Visit [facility] [address] [place] [address] Swapnil Lopez MD [address] [facility] [address] 10/21/2024 2:00 PM EST [facility] [address] [place] [facility] [place] [address] Jacky Shirley MD [address] [place] [address] [place] [address] 10/23/2024 1:45 PM EST Appointment [facility] [place] [address] Olena Darby APRN [address] [place] [address] [place], [place] [id number] documented as of this encounter Goals Goal Patient Goal Type Associated Problems Recent Progress Patient-Stated? Author Maintain a healthy diet, exercise regularly and maintain an ideal body weight General No Linda Walden RMA documented as of this encounter Visit Diagnoses Diagnosis Diarrhea of infectious origin- Primary Diarrhea of presumed infectious origin documented in this encounter
--- OUTSIDE RECORDS SUMMARY | 2024-08-15 13:55 | XMS_ITS | Encounter Summary ---
Author Organization [place] [address] Care Team Providers Care Engineer Intern Name Role Phone Unavailable Primary Care Provider Unavailabl e Encounter Details Date Type Department Care Team (Latest Contact Info) Description 01/20/2022 2:50 PM EDT - 01/20/2022 11:59 PM EDT Hospital Encounter [facility] [address] [place] [address] Crohn's disease with complication, unspecified gastrointestinal tract [...] PM EST Office Visit [facility] [address] [place] [address] Swapnil Lopez MD [address] [facility] [address] 10/21/2024 2:00 PM EST Appointment [facility] MRI [address] [place] [address] Jacky Shirley MD [address] [place] [address] [place] [address] 10/23/2024 1:45 PM EST Appointment [facility] [address] [address] [place], [place] [phone] Olena Darby APRN [address] [place], [place] [phone] documented as of this encounter Goals Goal Patient Goal Type Associated Problems Recent Progress Patient-Stated? Author Maintain a healthy diet, exercise regularly and maintain an ideal body weight General No Linda Walden, RMA documented as of this encounter Procedures Procedure Name Priority Date/Time Associated Diagnosis Comments XR CHEST PA AND LATERAL Routine 01/20/2022 2:55 PM EDT Crohn's disease with complication, unspecified gastrointestinal tract location (HCC) documented in this encounter Results * XR CHEST PA [...] contactthe office of the ordering clinician. us Swapnil Lopez MD IMG DIAGNOSTIC IMAGING ORDERAB LES Final Result documented in this encounter Visit Diagnoses Diagnosis Crohn's disease with complication, unspecified gastrointestinal tract location (HCC) documented in this encounter
--- OUTSIDE RECORDS SUMMARY | 2024-08-15 13:55 | XMS_ITS | Encounter Summary ---
Author Organization [place] [address] Care Team Providers Care Website Project Manager Name Role Phone Unavailable Primary Care Provider Unavailabl e Encounter Details Date Type Department Care Team (Late st Contact Info) Description 06/29/2021 Telephone [facility] [place] [phone] Marie Downing, PROGRAM ATTENDANT [address] [place] [address] Social History Tobacco Use Types Packs/Day Years [...] Encounter - Marie Downing APRN - 06/29/2021 12:07 PM EDT I called Dr. Ronquillo office and spoke to office staff Xin to inform pt has not called us back to reschedule her Entyvio. I also left today for pt to call us back. documented in this encounter Plan of Treatment Upcoming Encounters Date Type Department Care Team (Late st Contact Info) Description 09/11/2024 1:45 PM EST Office Visit [facility] [address] [place] [address] Swapnil Lopez MD [address] [place] [address] 10/21/2024 2:00 PM EST Appointment [facility] MRI [address] [place] [address] Jacky Shirley MD [address] [place] [address] [place] [address] 10/23/2024 1:45 PM EST Appointment [facility] [place] [address] Olena Darby, YON [address] [place] [address] [place] [address] documented as of this encounter Goals Goal Patient Goal Type Associated Problems Recent Progress Patient-Stated? Author Maintain a healthy diet, exercise regularly and maintain an ideal body weight General Linda Perez, RMA documented as of this encounter Visit Diagnoses Not on filedocumented in this encounter
--- OUTSIDE RECORDS SUMMARY | 2024-08-15 13:55 | XMS_ITS | Encounter Summary ---
Author Organization [place] [address] Care Team Providers Care Scientific Publications Editor Name Role Phone Unavailable Primary Care Provider Unavailabl e Reason for Visit * Auth/Cert/Inpt Specialty Diagnoses / Procedures Referred By Lata deal Referred To Contact Diagnoses De Quervain's tenosynovitis De Quervain's tenosynovitis [M65.4] Procedures [place] INCIS TENDON SHEATH,RADIAL STYLOID LEFT DEQUERVAINS RELEASE Referral ID Status Reason Start Date Expiration Date Visits Re quested Visits Authorized [id number] 1 1 Encounter Details Date Type Department Care Team (Latest Contact Info) Description 04/15/2021 9:56 AM EDT - 04/15/2021 10:48 [place] [address] Henry Lantigua MD De Quervain's tenosynovitis Discharge Disposition: Home or Self Care Social [...] AM EDT documented as of this encounter Last Filed Vital Signs Vital Sign Reading Time Taken Comments Blood Pressure 120/79 04/15/2021 10:44 AM EDT Pulse 75 04/15/2021 10:44 AM EDT Temperature 37 ??C (98.6 ??F) 04/15/2021 10:44 AM EDT Respiratory Rate 18 04/15/2021 10:44 AM EDT Oxygen Saturation 99% 04/15/2021 10:44 AM EDT Inhaled Oxygen Concentration - - [...] this encounter Discharge Instructions * Discharge Instructions* Henry Lantigua MD - 04/14/2021 5:14 PM EDT Images from the original note were not included. Hand Surgery Home Care Instructions 1. Check your temperature over the next 5 days and call your physician if greater than 101 degrees F. 2. Notify your physician if you have rash, hives, difficulty breathing, or severe nausea or vomiting. 3. Contact your family physician for questions concerning your current home medications. 4. If physician is unavailable, go to the Emergency Room. 5. If pain intensifies or is unrelieved by resting, elevation and/or prescription pain medicine, call your physician. Additional Instructions 1. Keep the extremity elevated above the level of the heart. 2. Observe your extremity several times a day. A little swelling and discoloration is considered normal. 3. Apply an ice pack to the operative area for comfort. Be sure it is in a leak- proof bag and wrapped in a towel or washcloth. 4. Dressing: -May remove dressing in 2-3 days -After dressing is removed: -Do not soak surgical site in a pool, tub, dishwater etc. until follow up visit. -Lightly wash incision - do not scrub -and pat dry. -If steri-strips are present, do not remove. OK to let water run over, but do not scrub. -Cover site with dry dressing. Call [facility] or go to the emergency room if: -Your bandage is too tight - You notice any unusual redness, bleeding, or drainage. - You have pain not relieved by prescription pain medicine, rest, and elevation. Post-Op Visit: Your post-op visit should be scheduled during your pre-surgical plan. If you are unsure, or you do not have an appointment scheduled, call [facility] [phone] or [phone] Anticoagulation therapy medications: may restart aspirin, Plavix, and Coumadin on the day of surgery. Patient or Responsible [employer] 04/14/2021 Time Nurse Signature 04/14/2021 Time Henry Lantigua MD documented in this encounter Medications at Time [...] Code Departure Means Destination Home or Self Long-Term documented in this encounter Procedure Notes * Henry Lantigua MD - 04/15/2021 10:25 AM EDT Images from the original note were not included. [id number] PATIENT: MARLENI ROSALES DATE OF OPERATION: 04/15/2021 DATE OF : 1960 PREOPERATIVE DIAGNOSIS: DEQUERVAIN'S TENOSYNOVITIS LEFT WRIST POSTOPERATIVE DIAGNOSIS: SAME PROCEDURE: FIRST DORSAL RETINACULAR COMPARTMENT DECOMPRESSION LEFT WRIST ANESTHESIA: Local (Nurse-Monitored) SURGEON: Henry Lantigua MD TOURNIQUET TIME: Total Tourniquet Time Documented: Forearm (Left) - 7 minutes Total: Forearm (Left) - 7 minutes OPERATIVE PROCEDURE: The patient was taken to the operating room and placed on the table in the supine position with the left arm out to the side on the arm table. A tourniquet was placed on the proximal forearm. The distal forearm, wrist and hand were prepped and draped in the usual sterile fashion for surgery. 2% lidocaine was infiltrated in the subcutaneous tissue at the radial styloid over the first compartment. The hand was exsanguinated, the tourniquet was inflated. A two centimeter oblique incision was made over the first compartment at the radial styloid. Blunt dissection was carried down through the subcutaneous tissues. Ragnell retractors were placed in the wound dorsal and palmarto the first compartment, protecting the subcutaneous vessels and sensory nerves. The first retinacular compartment was identified and divided longitudinally parallel with the underlying tendons, releasing the first compartment. The compartment was explored. A second small compartment was found dorsally containing the extensor pollicis brevis tendon. This was also released. The wound was irrigated. The skin was closed with interrupted 5-0 nylon sutures. A sterile bulky dressing was applied. Thetourniquet was released and the patient was taken to the postop recovery room in stable condition. Henry Lantigua MD documented in this encounter Nursing Notes * Carmen Swanson RN - 04/14/2021 2:47 PM EDT pt will call back later to complete DB call, in restaurant at this time, will fax test results for COVID positive lab on 02/12/21 to [facility] * Carmen Swanson RN - 04/14/2021 2:32 PM EDT 04/14/21=Rachana Mcdonald (procedure donor services coordinator for Dr Lantigua) call PAT back. She stated that the pt continued to send her to voice mail as well. * Carmen Swanson RN - 04/14/2021 1:21 PM EDT 04/14/21=called pt for PAT database, she hung up phone, called and left voice message for Rachana Mcdonald (procedure donor services coordinator for Dr Lantigua). Left message stating that PAT could not obtain positive COVIDresults from pt for 02/12/21. * Carmen Swanson RN - 04/12/2021 2:35 PM EDT 04/12/21=pt not returning PAT phone calls to complete database call. Need pt to fax COVID positive lab results from 02/12/21 to [facility]. Called Rachana Mcdonald (procedure donor services coordinator for Dr Lantigua) asking her tocall pt. * Carmen Swanson, RN - 04/09/2021 2:46 PM EDT 04/09/21=COVID postive on 02/12/21. Pt needs to have lab results faxed to [facility] from [facility] by 04/14/21, called Rachana Mcdonald (procedure donor services coordinator for Dr Lantigua) requested that she call pt to obtain COVID positive lab result. Pt has not returned phone calls from [facility]. documented in this encounter Plan of Treatment Upcoming Encounters Date Type Department Care Team (Late st Contact Info) Description 09/11/2024 1:45 PM EST Office Visit [facility] [address] [facility] [place] [address] Swapnil Lopez MD [address] [place] [address] 10/21/2024 2:00 PM EST Appointment [facility] MRI [address] [place] [address] Jacky Shirley MD [address] [place] [address] [place] [address] 10/23/2024 1:45 PM EST Appointment [facility] [place] [address] Olena Darby APRN [address] [place] [address] [place] [address] documented as of this encounter Goals Goal Patient Goal Type Associated Problems Recent Progress Patient-Stated? Author Maintain a healthy diet, exercise regularly and maintain an ideal body weight General No Linda Walden, RMA documented as of this encounter Procedures Procedure Name Priority Date/Time Associated Diagnosis Comments PEGGYRVAIN RELEASE OR FIRST COMPARTMENT 04/15/2021 10:26 AM EDT De Quervain's tenosynovitis Special Needs 04/01/21 kf documented in this encounter Visit Diagnoses Diagnosis De Quervain thyroiditis- Primary Subacute thyroiditis De Quervain's tenosynovitis Radial styloid tenosynovitis documented in this encounter Admitting Diagnoses Diagnosis De Quervain thyroiditis Subacute thyroiditis De Quervain's tenosynovitis Radial styloid tenosynovitis documented in this encounter Historical Medications * This list may reflect changes made after this encounter. ondansetron (ZOFRAN) 4 mg Oral Tablet Take 4 mg by mouth once. 03/08/2022 predniSONE (DELTASONE) 10 mg Oral TabletIndications :Crohn's disease Take 10 mg by mouth 3 times daily. Indications: Crohn's disease 03/07/2022 added in this encounter Active and Recently Administered Medications Times are shown in EDT. PRN Medication Order 04/13/2021 04/14/2021 04/15/2021 lidocaine-EPINEPHrine 9 mL, sodium bicarbonate 1 mL injection (COMPLETED) ONCE PRN, 1 dose, Starting on Ashlie 04/15/21 at 1034, Until Ashlie 04/15/21 at 1034, Intra-op 1034 (Given - Provid er: Henry Lantigua MD) documented in this encounter Orders Medications Ordered That Paul ht Not Have Been Administered Count Last Ordered Date First Ordered Date lidocaine-EPINEPHrine 9 mL, sodium bicarbonate 1 mL injection 1 04/15/2021 Discharge Count Last Ordered Date First Orde red Date DISCHARGE PATIENT 1 04/15/2021 documented in this encounter
--- OUTSIDE RECORDS SUMMARY | 2024-08-15 13:55 | XMS_ITS | Encounter Summary ---
Author Organization [facility] Address [address] [place] [facility] [place] [address] Care Team Providers Care Levee Superintendent Name Role Phone Swapnil Lopez MD Unavailable [phone] Reason for Visit * Reason Onset Date Comments Other 02/16/2022 Encounter Details Date Type Department Care Team (Late st Contact Info) Description 02/16/2022 Telephone [facility] [address] [place] [facility] [place] [address] Mile Padilla, RN Other Social History Tobacco Use Types [...] Telephone Encounter - Mile Jiménez RMA - 02/16/2022 12:53 PM EDT medication was sent in to pharmacy. * Telephone Encounter - Mile Gaviria RN - 02/16/2022 11:10 AM EDT Please send refill for lotmil. Thank you! documented in this encounter Plan of Treatment Upcoming Encounters Date Type Department Care Team (Late st Contact Info) Description 09/11/2024 1:45 PM EST Office Visit [facility] [address] [place] [facility] [place] [address] Swapnil Lopez MD [address] [facility] [place] [address] 10/21/2024 2:00 PM EST Appointment [facility] [address] [place] [address] Jacky Casas MD [address] [facility] [place] [address] 10/23/2024 1:45 PM EST Appointment [facility] [place] [address] Olena Darby APRN [address] [place] [address] [place] [address] documented as of this encounter Goals Goal Patient Goal Type Associated Problems Recent Progress Patient-Stated? Author Maintain a healthy diet, exercise regularly and maintain an ideal body weight General No Linda Walden, RMA documented as of this encounter Visit Diagnoses Not on filedocumented in this encounter Care Teams Levee Superintendent Relationship Specialty Start Date End Date Swapnil Lopez MD [address] [place] [id number] Internal Medicine-Gastroenterology 02/16/22 documented as of this encounter
--- OUTSIDE RECORDS SUMMARY | 2024-08-15 13:55 | XMS_ITS | Encounter Summary ---
Author Organization [facility] Address [address] [facility] [place] [address] Care Team Providers Care Photolithographer Name Role Phone Swapnil Lopez MD Unavailable [phone] Reason for Visit * Reason Onset Date Comments Other 03/02/2022 Encounter Details Date Type Department Care Team (Late st Contact Info) Description 03/02/2022 Telephone [facility] [address] [facility] [place] [place] [address] Mile Padilla, RN Other Social History [...] Telephone Encounter - Mile Gaviria RN - 03/02/2022 3:46 PM EDT error documented in this encounter Plan of Treatment Upcoming Encounters Date Type Department Care Team (Late st Contact Info) Description 09/11/2024 1:45 PM EST Office Visit [facility] [address] [place] [address] Swapnil Lopez MD [address] [place] [address] 10/21/2024 2:00 PM EST Appointment [facility] [address] [place] [address] Jacky Shirley MD [address] [place] [address] [place] [address] 10/23/2024 1:45 PM EST Appointment [facility] [place] [address] Olena Darby APRN [address] [place] [address] documented as of this encounter Goals Goal Patient Goal Type Associated Problems Recent Progress Patient-Stated? Author Maintain a healthy diet, exercise regularly and maintain an ideal body weight General No Linda Walden, RMA documented as of this encounter Visit Diagnoses Not on filedocumented in this encounter Care Teams Photolithographer Relationship Specialty Start Date End Date Swapnil Lopez MD [address] [place] [id number] Internal Medicine-Gastroenterology 02/16/22 documented as of this encounter
--- OUTSIDE RECORDS SUMMARY | 2024-08-15 13:55 | XMS_ITS | Encounter Summary ---
Author Organization [facility] Address [address] [place] [address] Care Team Providers Care Cuprous Chloride Helper Name Role Phone Unavailable Primary Care Provider Unavailabl e Reason for Visit * Reason Onset Date Comments Medication Problem 12/08/2021 Encounter Details Date Type Department Care Team (Late st Contact Info) Description 12/08/2021 Telephone [facility] [address] [place] [address] Swapnil Lopez MD [address] [place] [address] Medication Problem Social History Tobacco Use Types Packs/Day Years [...] Date Author No 09/05/2017 11:13 AM EST Mercedes Gabby RMA documented in this encounter Miscellaneous Notes * Telephone Encounter - Mile Jiménez RMA - 12/08/2021 2:16 PM EST medication was sent to wrong pharmacy documented in this encounter Plan of Treatment Upcoming Encounters Date Type Department Care Team (Late st Contact Info) Description 09/11/2024 1:45 PM EST Office Visit [facility] [address] [place] [address] Swapnil Lopez MD [address] [place] [address] 10/21/2024 2:00 PM EST Appointment [facility] MRI [address] [place] [address] Jacky Shirley MD [address] [place] [address] [place] [address] 10/23/2024 1:45 PM EST Appointment [facility] [place] [place] [address] Olena aDrby, MEDIA BUYER [address] [place] [address] [place] [address] documented as of this encounter Goals Goal Patient Goal Type Associated Problems Recent Progress Patient-Stated? Author Maintain a healthy diet, exercise regularly and maintain an ideal body weight General No Linda Walden, RMA documented as of this encounter Visit Diagnoses Not on filedocumented in this encounter
--- OUTSIDE RECORDS SUMMARY | 2024-08-15 13:55 | XMS_ITS | Encounter Summary ---
Author Organization [facility] Address [address] [place] [address] Care Team Providers Care Telegraph Operator Name Role Phone Swapnil Lopez MD Unavailable [phone] Reason for Visit * Reason Onset Date Comments [employer]ics 01/21/2022 start stelara Encounter Details Date Type Department Care Team (Late st Contact Info) Description 01/21/2022 Telephone [facility] [address] [place] [address] Trisha Blood RMA [employer] (start stelara) Social History Tobacco Use Types Packs/Day Years [...] Blood RMA - 03/03/2022 8:55 AM EDT lvm & informed pt. sent task to appt sched to appt sched. * Telephone Encounter - Swapnil Lopez MD - 03/02/2022 4:18 PM EDT Needs OV to discuss * Telephone Encounter - Trisha Blood RMA - 03/02/2022 3:48 PM EDT pt had her stelara infusion 02/14/22. she just lvm that she has had diarrhea since then and just gotover it today. she said she will not be continuing stelara. fyi or please advise. * Telephone Encounter - Trisha Blood RMA - 02/16/2022 3:39 PM EDT [facility] specialty [facility]. * Telephone Encounter - Trisha Blood RMA - 02/10/2022 11:59 AM EDT pt sched 02/16 for infusion. her first shot will be due 04/13. * Telephone Encounter - Piedad Patino APRN - 01/24/2022 9:42 AM EDT All testing has been reviewed and completed. Okay to start Stelara. * Telephone Encounter - Trisha Blood RMA - 01/24/2022 9:25 AM EDT please advise pt can start stelara. * Telephone Encounter - Trisha Blood RMA - 01/21/2022 1:45 PM EDT see other task. pt lvm tht she got her pretesing done. pending. starting stelara, infusion approvedalready. documented in this encounter Plan of Treatment Upcoming Encounters Date Type Department Care Team (Late st Contact Info) Description 09/11/2024 1:45 PM EST Office Visit [facility] [address] [place] [place] [address] Swapnil Lopez MD [address] [place] [address] 10/21/2024 2:[address] [facility] [address] [place] [address] Jacky Shirley MD [address] [facility] [facility] [facility] [address] [facility]CER CARE [place], [place] [id number] 10/23/2024 1:45 PM EST Appointment [facility] [place] [address] Olena Darby APRN [address] [facility] CARE [place], [place] [id number] documented as of this encounter Goals Goal Patient Goal Type Associated Problems Recent Progress Patient-Stated? Author Maintain a healthy diet, exercise regularly and maintain an ideal body weight General No Linda Walden, RMA documented as of this encounter Visit Diagnoses Not on filedocumented in this encounter Care Teams Telegraph Operator Relationship Specialty Start Date End Date Swapnil Lopez MD [address] [place] [phone] Internal Medicine-Gastroenterology 02/16/22 documented as of this encounter
--- OUTSIDE RECORDS SUMMARY | 2024-08-15 13:55 | XMS_ITS | Encounter Summary ---
Author Organization [facility]astroente rolog[facility] Address [address] [place] [address] Care Team Providers Care Shearer Printed Circuit Boards Name Role Phone Unavailable Primary Care Provider Unavailabl e Reason for Visit * Reason Onset Date Comments Medication Refill 12/08/2021 Encounter Details Date Type Department Care Team (Late st Contact Info) Description 12/08/2021 Refill [facility] [address] [place] [address] Swapnil Lopez MD [address] [place] [address] Medication Refill Social History Tobacco [...] 09/11/2024 1:45 PM EST Office Visit [facility] [address] [place] [address] Swapnil Lopez MD [address] [place] [address] 10/21/2024 2:00 PM EST Appointment [facility] MRI [address] [place] [address] Jacky Shirley MD [address] [place] [address] [place] [address] 10/23/2024 1:45 PM EST Appointment [facility] [place] [address] Olena Darby APRN [address] [place] [address] [place] [address] documented as of this encounter Goals Goal Patient Goal Type Associated Problems Recent Progress Patient-Stated? Author Maintain a healthy diet, exercise regularly and maintain an ideal body weight General No Linda Walden RMA documented as of this encounter Visit Diagnoses Not on filedocumented in this encounter
--- OUTSIDE RECORDS SUMMARY | 2024-08-15 13:55 | XMS_ITS | Encounter Summary ---
Author [place] [address] Care Team Providers Care Web Search Evaluator Name Role Phone Unavailable Primary Care Provider Unavailabl e Reason for Visit * Auth/Cert/Inpt Specialty Diagnoses / Procedures Referred By Lata deal Referred To Contact Diagnoses De Quervain's tenosynovitis De Quervain's tenosynovitis [M65.4] Procedures MN INCIS TENDON SHEATH,RADIAL STYLOID LEFT DEQUERVAINS RELEASE Referral ID Status Reason Start Date Expiration Date Visits Re quested Visits Authorized [id number] 1 1 Encounter Details Date Type Department Care Team (Late st Contact Info) Description 04/15/2021 11:05 AM EDT - 04/15/2021 11:25 AM [place] [address] Henry Lantigua MD DEQUERVAIN RELEASE OR FIRST COMPARTMENT Surgery Details Date/Time Status Location OR Service Patient Class Case Class Case Type Trauma Case? 04/15/2021 11:05 AM Posted [facility] 03 Hand Same Day Surgery Elective Panel 1 Procedure LRB Anes Op Region Wound Class Comments DEQUERVAIN RELEASE OR FIRST COMPARTMENT Left Local (Nurse-Monitore d) Clean LEFT DEQUERVAINS RELEASE Surgeon Surgeon Role Service Panel Henry Lantigua MD Primary Hand 1 Special Needs 04/01/21 kf documented in this encounter Social History Tobacco [...] scrub. -Cover site with dry dressing. Call [facility] or go to the emergency room if: -Your bandage is too tight - You notice any unusual redness, bleeding, or drainage. - You have pain not relieved by prescription pain medicine, rest, and elevation. Post-Op Visit: Your post-op visit should be scheduled during your pre-surgical plan. If you are unsure, or you do not have an appointment scheduled, [facility] [phone] or [phone] Anticoagulation therapy medications: may restart aspirin, Plavix, and Coumadin on the day of surgery. Patient or Responsible [employer] Party 04/14/2021 Time Nurse Signature 04/14/2021 Time [...] Code Departure Means Destination Home or Self Intermediate documented in this encounter Procedure Notes * Henry Lantigua MD - 04/15/2021 10:25 AM EDT Images from the original note were not included. [id number] PATIENT: MARLENI ROSALES DATE OF OPERATION: 04/15/2021 [...] for COVID positive lab on 02/12/21 to [facility] * Carmen Swanson RN - 04/14/2021 2:32 PM EDT 04/14/21=Rachana Mcdonald (procedure transit planning manager for Dr Lantigua) call PAT back. She stated that the pt continued to send her to voice mail as well. * Carmen Swanson RN - 04/14/2021 1:21 PM EDT 04/14/21=called pt for PAT database, she hung up phone, called and left voice message for Rachana Mcdonald (procedure transit planning manager for Dr Lantigua). Left message stating that PAT could not obtain positive COVIDresults from pt for 02/12/21. * Carmen Swanson RN - 04/12/2021 2:35 PM EDT 04/12/21=pt not returning PAT phone calls to complete database call. Need pt to fax COVID positive lab results from 02/12/21 to [facility]. Called Rachana Mcdonald (procedure transit planning manager for Dr Lantigua) asking her tocall pt. * Carmen Swanson RN - 04/09/2021 2:46 PM EDT 04/09/21=COVID postive on 02/12/21. Pt needs to have lab results faxed to [facility] from [facility] by 04/14/21, called Rachana Mcdonald (procedure transit planning manager for Dr Lantigua) requested that she call pt to obtain COVID positive lab result. Pt has not returned phone calls from [facility]. documented in this encounter Plan of Treatment Upcoming Encounters Date Type Department Care Team (Late st Contact Info) Description 09/11/2024 1:45 PM EST Office Visit [facility] [address] [place] [address] Swapnil Lopez MD [address] [place] [address] 10/21/2024 2:00 PM EST Appointment [facility] MRI [address] [place] [address] Jacky Shirley MD [address] [place] [address] [place] [address] 10/23/2024 1:45 PM EST Appointment [facility] [place] [address] Olena Darby SIGN BOARD ERECTOR 1 [facility] [place] [address] documented as of this encounter Goals Goal Patient Goal Type Associated Problems Recent Progress Patient-Stated? Author Maintain a healthy diet, exercise regularly and maintain an ideal body weight General No Linda Walden, RMA documented as of this encounter Procedures Procedure Name Priority Date/Time Associated Diagnosis Comments DEQUERVAIN RELEASE OR FIRST COMPARTMENT 04/15/2021 10:26 AM EDT De Quervain's tenosynovitis Special Needs 04/01/21 kf documented in this encounter Visit Diagnoses Diagnosis De Quervain thyroiditis- Primary Subacute thyroiditis De Quervain's tenosynovitis Radial styloid tenosynovitis De Quervain's tenosynovitis Radial styloid tenosynovitis documented in this encounter Admitting Diagnoses Diagnosis De Quervain thyroiditis Subacute thyroiditis De Quervain's tenosynovitis Radial styloid tenosynovitis documented in this encounter Administered Medications Inactive Administered Medications - up to 1 most recent administrations Medication Order MAR Action Action Date Dose Rate Site lidocaine-EPINEPHrine 9 mL, sodium bicarbonate 1 mL injection ONCE PRN, 1 dose, Starting on Ashlie 04/15/21 at 1034, Until Ashlie 04/15/21 at 1034, Intra-op Given 04/15/2021 10:34 AM EDT 8 mL Left Hand documented in this encounter Historical Medications * [...] Lantigua MD) documented in this encounter Orders Discharge Count Last Ordered Date First Orde red Date DISCHARGE PATIENT 1 04/15/2021 documented in this encounter
--- OUTSIDE RECORDS SUMMARY | 2024-08-15 13:55 | XMS_ITS | Encounter Summary ---
Author Organization [place] [address] Care Team Providers Care Tea Bag Machine Tender Name Role Phone Unavailable Primary Care Provider Unavailabl e Encounter Details Date Type Department Care Team (Late st Contact Info) Description 06/29/2021 Telephone [facility] [place] [id number] Marie Downing, LINE SERVER [address] [place] [address] Social History Tobacco Use Types Packs/Day Years [...] Encounter - Marie Downing APRN - 06/29/2021 11:57 AM EDT I called pt and left telephone VM to give us a call ( in regards to rescheduling entyvio) documented in this encounter Plan of Treatment Upcoming Encounters Date Type Department Care Team (Late st Contact Info) Description 09/11/2024 1:45 PM EST Office Visit [facility] [address] [place] [address] Swapnil Lopez MD [address] [place] [address] 10/21/2024 2:00 PM EST Appointment [facility] MRI [address] [place] [address] Jacky Shirley MD [address] [place] [address] [place] [address] 10/23/2024 1:45 PM EST Appointment [facility] [place] [address] Olena Darby APRN 1 [facility] [place] [address] documented as of this encounter Goals Goal Patient Goal Type Associated Problems Recent Progress Patient-Stated? Author Maintain a healthy diet, exercise regularly and maintain an ideal body weight General Linda Perez, RMA documented as of this encounter Visit Diagnoses Not on filedocumented in this encounter
--- OUTSIDE RECORDS SUMMARY | 2024-08-15 13:55 | XMS_ITS | Encounter Summary ---
Author Organization [facility] Address [address] [place] [address] Care Team Providers Care Media Marketing Coordinator Name Role Phone Swapnil Lopez MD Unavailable [phone] Reason for Visit * Reason Onset Date Comments Medication Refill 02/16/2022 Encounter Details Date Type Department Care Team (Late st Contact Info) Description 02/16/2022 Refill [facility] [address] [place] [address] Swapnil Lopez MD [address] [place] [address] Medication Refill Social History Tobacco [...] for 30 days for diarrhea 240 Tablet 02/16/2022 2 documented in this encounter Plan of Treatment Upcoming Encounters Date Type Department Care Team (Late st Contact Info) Description 09/11/2024 1:45 PM EST Office Visit [facility] [address] [place] [address] Swapnil Lopez MD [address] [place] [address] 10/21/2024 2:00 PM EST Appointment [facility] MRI [address] [place] [address] Jacky Shirley MD [address] [place] [address] [place] [address] 10/23/2024 1:45 PM EST Appointment [facility] [address] [address] [place], [place] [phone] Olena Darby APRN 1 [facility] [place] [address] documented as of this encounter [...] needed for 30 days for diarrhea Reorder 01/06/2022 02/16/2022 documented as of this encounter Care Teams Media Marketing Coordinator Relationship Specialty Start Date End Date Swapnil Lopez MD [address] [place] [phone] Internal Medicine-Gastroenterology 02/16/22 documented as of this encounter
--- OUTSIDE RECORDS SUMMARY | 2024-08-15 13:56 | XMS_ITS | Encounter Summary ---
Author [place] [address] Care Team Providers Care Insurance Clerk Name Role Phone Henry Dhaliwal Primary Care Provider [phone] Encounter Details Date Type Department Care Team (Latest Contact Info) Description 03/05/2020 10:22 AM EDT - 03/05/2020 11:59 PM EDT Hospital Encounter [facility] [place] [id number] Discharge Disposition: Home or Self Care Social [...] have Coronavirus / COVID-19? No / Unsure 03/05/2020 10:21 AM EDT documented as of this encounter [...] this encounter Medications at Time of Discharge traMADol (ULTRAM) 50 mg Oral Tablet 50 mg every 6 hours as needed. 10/18/2019 04/12/2022 documented as of this encounter Discharge Disposition Disposition Code Departure Means Destination Home or Self Care documented in this encounter Plan of Treatment Upcoming Encounters Date Type Department Care Team (Late st Contact Info) Description 09/11/2024 1:45 PM EST Office Visit [facility] [address] [place] [address] Swapnil Lopez MD [address] [place] [address] 10/21/2024 2:00 PM EST Appointment [facility] [place] MRI [address] [place] [address] Jacky Shirley MD [address] [place] [address] [place] [address] 10/23/2024 1:45 PM EST Appointment [facility] [address] Olena Darby, SENIOR GEOTECHNICAL ENGINEER 1 [facility] [place], [place] [phone] documented as of this encounter Goals Goal Patient Goal Type Associated Problems Recent Progress Patient-Stated? Author Maintain a healthy diet, exercise regularly and maintain an ideal body weight General No Linda [place]den, RMA documented as of this encounter Procedures Procedure Name Priority Date/Time Associated Diagnosis Comments MISCELLANEOUS LAB ANNA 03/05/2020 10: 37 AM EDT documented in this encounter Results * MISCELLANEOUS LAB (03/05/2020 10:37 AM EDT) Pathologist [facility] COMMENT See Scanned Image 05/04/2020 1:49 PM EDT [facility] Blood VENOUS BLOOD / Unknown Venipuncture / Unknown 03/05/2020 10:37 AM EDT 03/05/2020 10:37 AM EDT us Swapnil Lopez MD HEMATOLOGY ORDERABLES Final Re sult EXTERNAL LAB See Scanned Report [facility] [address] [place] [address] documented in this encounter Visit Diagnoses Not on filedocumented in this encounter Care Teams Insurance Clerk Relationship Specialty Start Date End Date Henry Dhaliwal DO [address] [employer] [place], [place] [id number] PCP - General Family Medicine 08/02/18 11/11/20 documented as of this encounter
--- OUTSIDE RECORDS SUMMARY | 2024-08-15 13:56 | XMS_ITS | Encounter Summary ---
Author Organization [place] [address] Care Team Providers Care Quality Assurance Supervisor Chassis Name Role Phone Unavailable Primary Care Provider Unavailabl e Reason for Visit * Oncology Medication Prior Authorization (Routine) - Closed Specialty Diagnoses / Procedures Referred By Lata t Referred To Contact Oncology Diagnoses Crohn's disease of colon with complication (HCC) Procedures KS INJECTION, VEDOLIZUMAB Swapnil Avila MD [address] [place] [phone] Phone: tel: fax: [address] [address] Phone: tel: fax: Referral ID Status Reason Start Date Expiration Date Visits Re quested Visits Authorized [id number] Closed 10/09/2020 10/09/2021 99 99 Encounter Details Date Type Department Care Team (Latest Contact Info) Description 12/01/2020 1:30 PM EST - 12/01/2020 11:59 PM EST Hospital Encounter [address] [place] [address] Crohn's disease of colon with complication (HCC) [...] have Coronavirus / COVID-19? No / Unsure 12/01/2020 1:29 PM EST documented as of this encounter Last Filed Vital Signs Vital Sign Reading Time Taken Comments Blood Pressure 120/81 12/01/2020 2:41 PM EST Pulse 64 12/01/2020 2:41 PM EST Temperature 36.2 ??C (97.2 ??F) 12/01/2020 1:39 PM ES T Respiratory Rate 18 12/01/2020 2:41 PM EST Oxygen Saturation - - Inhaled Oxygen Concentration - - Weight 57 kg (125 lb 11.2 oz) 12/01/2020 1:36 PM EST Height - - Body Mass Index 22.99 11/11/2020 2:59 PM EST documented in this encounter Functional [...] Author No 09/05/2017 11:13 AM Gabby De L aGarza RMA * Does this person have difficulty [...] No 09/05/2017 11:13 AM EST Gabby Mercedes SHANNON documented in this encounter Medications at Time of Discharge traMADol (ULTRAM) 50 mg Oral Tablet 50 mg every 6 hours as needed. 10/18/2019 04/12/2022 documented as of this encounter Discharge Disposition Disposition Code Departure Means Destination Home or Self Care documented in this encounter Miscellaneous Notes * Patient Instructions - Suri Hubbard RN - 12/01/2020 1:30 PM EST [facility] Discharge Instructions Thank you for entrusting the [facility] with your care. We hope you are pleased with your outpatient care and services. Because we are most concerned with your health, we suggest you carefully read the following discharge instructions: Your Discharge Instructions: MEDICATION INSTRUCTIONS: Treatment received today: Entjayden Reviewed medications administered today and possible side effects Dizziness and sleepiness are possible side effects of pain medication. When taking pain medications, do not drink alcohol or drive. ACTIVITY INSTRUCTIONS: Rest today, increase activity as tolerated. DIET INSTRUCTIONS: as tolerated FOLLOW-UP CARE: Call your doctor [...] - Monday 8:00 AM - 4:30 PM. [facility] [address] [address] [place] [address] [place], [place] [phone] [facility] Location [address] [place], [place] [phone] documented in this encounter Plan of Treatment Upcoming Encounters Date Type Department Care Team (Late st Contact Info) Description 09/11/2024 1:45 PM EST [facility] Visit [facility] [address] [place], [place] [phone] Swapnil Lopez MD [address] [facility] [address] 10/21/2024 2:00 PM EST Appointment [facility] MRI [address] [place] [address] Jacky Shirley MD [address] [place] [address] CANCER CARE [place], [place] [phone] 10/23/2024 1:45 PM EST Appointment [facility] [address] [address] [place], [place] [phone] Olena Darby APRN [address] [place] [address] [place] [address] documented as of this encounter Goals Goal Patient Goal Type Associated Problems Recent Progress Patient-Stated? Author Maintain a healthy diet, exercise regularly and maintain an ideal body weight General Linda Perez, RMA documented as of this encounter Procedures Procedure Name Priority Date/Time Associated Diagnosis Comments MISCELLANEOUS LAB ANNA 12/01/2020 2:0 3 PM EST SEDIMENTATION RATE AUTOMATED ANNA 12/01/2020 2:03 PM EST CBC WITH DIFF ANNA 12/01/2020 2:03 PM EST C-REACTIVE PROTEIN ANNA 12/01/2020 2: 03 PM EST HEPATIC FUNCTION PANEL ANNA 2:03 PM EST documented in this encounter Results * MISCELLANEOUS LAB (12/01/2020 2:03 PM EST) Pathologist [facility] MISC COMMENT See Scanned Image 12/12/2020 10:10 AM EST [facility] Blood OTHER SPECIMEN TYPE / Unknown Venipuncture / Unknown 12/01/2020 2:03 PM EST 12/01/2020 2:10 PM EST us Swapnil Lopez MD HEMATOLOGY ORDERABLES Final Re sult EXTERNAL LAB See Scanned Report [facility] [address] [place] [address] * C-REACTIVE PROTEIN (12/01/2020 2:03 PM EST) [facility] CRP 3.26 <=5.00 mg/L 12/01/2020 7:21 PM EST [facility] [employer] [facility] Blood VENOUS BLOOD / Unknown Venipuncture / Unknown 12/01/2020 2:03 PM EST 12/01/2020 2:10 PM EST us Swapnil Lopez MD CHEMISTRY ORDERABLES Final Res ult Performing Organization Address City/[facility]/ZIP Co de Phone Number [facility] [employer] 1 [facility], [place] [address] * SEDIMENTATION RATE AUTOMATED (12/01/2020 2:03 PM EST) [facility] Sed Rate 24 0 - 30 mm/hr 12/01/2020 2:17 PM EST [facility] Blood VENOUS BLOOD / Unknown Venipuncture / Unknown 12/01/2020 2:03 PM EST 12/01/2020 2:10 PM EST us Swapnil Lopez MD HEMATOLOGY ORDERABLES Final Re sult [facility] [address] [place] [address] * (ABNORMAL) HEPATIC FUNCTION PANEL (12/01/2020 2:03 PM EST) [facility] Total Protein 7.1 6.4 - 8.3 gm/dL 12/01/2020 3:39 PM EST [facility] Albumin 4.0 3.5 - 5.2 gm/dL 12/01/2020 3:39 PM EST [facility] Bili Direct <0.2 0.0 - 0.3 mg/dL 12/01/2020 3:39 PM EST [facility] Bili Total 0.4 0.1 - 1.3 mg/dL 12/01/2020 3:39 PM [facility] AST 14 <=40 U/L 12/01/2020 3:39 PM [facility] ALT 8 <=41 U/L 12/01/2020 3:39 PM [facility] Alk Phos 143(H) 36 - 123 U/L 12/01/2020 3:39 PM [facility] Blood VENOUS BLOOD / Unknown Venipuncture / Unknown 12/01/2020 2:03 PM EST 12/01/2020 2:35 PM EST us Swapnil Lopez MD CHEMISTRY ORDERABLES Final Res ult Performing Organization Address City/State/[facility] Co de Phone Number [facility] [address] [place] [address] * CBC WITH DIFF (12/01/2020 2:03 PM EST) [facility] WBC 7.5 3.7 - 10.3 x10(3)/mcL 12/01/2020 2:13 PM EST [facility] RBC 4.52 3.90 - 5.20 x10(6)/mcL 12/01/2020 2:13 PM EST [facility] Hgb 12.3 11.2 - 15.7 g/dL 12/01/2020 2:13 PM EST [facility] Hct 37.6 34.0 - 45.0 % 12/01/2020 2:13 PM [facility] MCV 83.2 80.0 - 100.0 fL 12/01/2020 2:13 PM [facility] MCH 27.2 26.0 - 34.0 pg 12/01/2020 2:13 PM [facility] MCHC 32.7 30.7 - 35.5 g/dL 12/01/2020 2:13 PM [facility] RDW 13.8 <=14.9 % 12/01/2020 2:13 PM [facility] Platelet 289 155 - 369 x10(3)/mcL 12/01/2020 2:13 PM [facility] MPV 9.0 8.8 - 12.5 fL 12/01/2020 2:13 PM [facility] Neut # Prelim 5.2 1.6 - 6.1 x10(3)/mcL 12/01/2020 2:13 PM [facility] Comment:Preliminary automate d absolute neutrophil count. Value may change if manual differential is indicated. Neut Percent 68.8 % 12/01/2020 2:13 PM [facility] Comment:Neutrophils equals s egs plus bands Imm Gran% 0.3 % 12/01/2020 2:13 PM [facility] Comment:Automated count of m etamyelocytes, myelocytes and promyelocytes. Lymph Percent 23.4 % 12/01/2020 2:13 PM [facility] [place] Percent 6.5 % 12/01/2020 2:13 PM [facility] Eos Percent 0.9 % 12/01/2020 2:13 PM [facility] Baso Percent 0.1 % 12/01/2020 2:13 PM [facility] Neut # 5.2 1.6 - 6.1 x10(3)/mcL 12/01/2020 2:13 PM [facility] Comment:Neutrophils equals s egs plus bands IMMGRAN# 0.0 0.0 - 0.1 x10(3)/mcL 12/01/2020 2:13 PM [facility] Comment:Automated count of m etamyelocytes, myelocytes and promyelocytes. An absolute IG <0.1 is reported as 0.0. Lymph # 1.8 1.2 - 3.9 x10(3)/mcL 12/01/2020 2:13 PM [facility] [place] # 0.5 0.3 - 0.9 x10(3)/mcL 12/01/2020 2:13 PM EST [facility] Eos# 0.1 0.0 - 0.5 x10(3)/mcL 12/01/2020 2:13 PM EST [facility] Baso # 0.0 0.0 - 0.1 x10(3)/mcL 12/01/2020 2:13 PM EST [facility] Blood VENOUS BLOOD / Unknown Venipuncture / Unknown 12/01/2020 2:03 PM EST 12/01/2020 2:10 PM EST us Swapnil Lopez MD HEMATOLOGY ORDERABLES Final Re sult [facility] [address] [place] [address] documented in this encounter Visit Diagnoses Diagnosis Crohn's disease of colon with complication (HCC)- Primary documented in this encounter Administered Medications Inactive Administered Medications - up to 1 most recent administrations Medication Order MAR Action Action Date Dose Rate Site 0.9 % NaCl infusion Intravenous, at 300 mL/hr, PRN, Starting on Mon12/01/20 at 1334, Until Ashlie 12/03/20 at 0407, For gasoline locomotive crane operator during infusion., Dx: 1. Crohn's disease of colon with complication (HCC)Indications:Crohn's disease of colon with complication (HCC) New Bag 12/01/2020 2:40 PM EST 30 mL 300 mL/hr sodium chloride 0.9% syringe Intravenous, PRN, Starting on Mon12/01/20 at 1334, Until Ashlie 12/03/20 at 0407, Line Care, Flush after IV medication, Dx: 1. Crohn's disease of colon with complication (HCC)Indications:Crohn's disease of colon with complication (HCC) Given 12/01/2020 2:10 PM EST 10 mL vedolizumab (ENTYVIO) 300 mg in sodium chloride 0.9 % 250 mL 300 mg, Intravenous, EVERY 6 WEEKS, First dose on Mon12/01/20 at 1345, Until Discontinued, Administer over 30 Minutes, Administer over 30 minutes ORDER DATE: 01/08/21, Dx: 1. Crohn's disease of colon with complication (HCC)Indications:Crohn's disease of colon with complication (HCC) IV Started 12/01/2020 2:08 PM EST 300 mg 560 mL/hr documented in this encounter
--- OUTSIDE RECORDS SUMMARY | 2024-08-15 13:56 | XMS_ITS | Encounter Summary ---
Author Organization [facility] [place] [address] Care Team Providers Care Fan Runner Name Role Phone MadhuriHenry Primary Care Provider [phone] Encounter Details Date Type Department Care Team (Latest Contact Info) Description 09/30/2020 Travel Social History Tobacco Use Types Packs/Day [...] or suspected to have Coronavirus / COVID-19? Unable to assess 09/30/2020 3:09 PM EST documented as of this encounter Functional [...] PM EST Office Visit [facility] [address] [place] [facility] [place] [address] Swapnil Lopez MD [address] [place] [address] 10/21/2024 2:00 PM EST Appointment [facility] MRI [address] [place] [address] Jacky Shirley MD [address] [place] [address] [place]ER [place], [place] [phone] 10/23/2024 1:45 PM EST Appointment [facility] [place] [address] Olena Darby APRN [address] [place] [address] [place], [place] [phone] documented as of this encounter Goals Goal Patient Goal Type Associated Problems Recent Progress Patient-Stated? Author Maintain a healthy diet, exercise regularly and maintain an ideal body weight General No Linda Walden RMA documented as of this encounter Visit Diagnoses Not on filedocumented in this encounter Care Teams Fan Runner Relationship Specialty Start Date End Date Henry Dhaliwal DO [address] [employer] [place] [address] PCP - General Family Medicine 08/02/18 11/11/20 documented as of this encounter
--- OUTSIDE RECORDS SUMMARY | 2024-08-15 13:56 | XMS_ITS | Encounter Summary ---
Author Organization [place] [address] Care Team Providers Care Customer Supply Coordinator Name Role Phone MadhuriHenry Jayant MARTEL Primary Care Provider [phone] Reason for Visit * Oncology Medication Prior Authorization (Routine) - Closed Specialty Diagnoses / Procedures Referred By Lata t Referred To Contact Diagnoses Crohn's disease of colon with complication (HCC) Procedures IL INJECTION, VEDOLIZUMAB Swapnil Lopez MD [address] [place] [id number] Phone: tel: fax: [address] [place] [address] Phone: tel: fax: Referral ID Status Reason Start Date Expiration Date Visits Re quested Visits Authorized [id number] Closed 12/31/2019 12/30/2020 1 1 Encounter Details Date Type Department Care Team (Latest Contact Info) Description 04/10/2020 12:53 PM EDT - 04/10/2020 11:59 PM EDT Hospital Encounter [address] [place] [address] Crohn's disease of colon with [...] have Coronavirus / COVID-19? No / Unsure 04/10/2020 12:53 PM EDT documented as of this encounter Last Filed Vital Signs Vital Sign Reading Time Taken Comments Blood Pressure 110/61 04/10/2020 1:45 PM EDT Pulse 74 04/10/2020 1:45 PM EDT Temperature - - Respiratory Rate 18 04/10/2020 1:45 PM EDT Oxygen Saturation - - Inhaled Oxygen Concentration - - Weight 53.6 kg (118 lb 3.2 oz) 04/10/2020 1:13 P M EDT Height - - Body Mass Index 21.62 11/15/2019 9:22 AM EST documented in this encounter Functional [...] encounter Miscellaneous Notes * Patient Instructions - Zenaida Lambert RN - 04/10/2020 1:00 PM EDT [facility] Discharge Instructions Thank you for entrusting the [facility] with your care. We hope you are [...] - Monday 8:00 AM - 4:30 PM. [facility] [address], [place] [address] [place], [place] [id number] [facility] [address], [address] [place] [address] [place] [address] [phone] [facility] [address] [facility] [address] [facility]. [address] [place], [place] [address] [place] [address] [phone] documented in this encounter Plan of Treatment Upcoming Encounters Date Type Department Care Team (Late st Contact Info) Description 09/11/2024 1:45 PM EST Office Visit [facility] [address] [facility] [place] [address] Sawpnil Lopez MD [address] [facility] [place] [address] 10/21/2024 2:00 PM EST Appointment [facility] [place] MRI [address] [place] [address] Jacky Shirley MD 1 [facility] [place]ER [place], [place] [id number] 10/23/2024 1:45 PM EST Appointment [facility] [place] [address] Olena Darby APRN [address] [place] [address] [place]ER [place], [place] [id number] documented as of this encounter Goals Goal [...] Intravenous, at 300 mL/hr, PRN, Starting on Mon04/10/20 at 1259, Until 04/12/20 at 0403, For millinery copyist, Dx: 1. Crohn's disease of colon with complication (HCC)Indications:Crohn's disease of colon with complication (HCC) New Bag 04/10/2020 1:45 PM EDT 25 mL 500 mL/hr sodium chloride 0.9% syringe 10 mL 10 mL, Intravenous, PRN, Starting on Mon04/10/20 at 1346, Until 7/12/20 at 0403, Line Care, For Venous Access Device care and maintenance., Dx: 1. Crohn's disease of colon with complication (HCC)Indications:Crohn's disease of colon with complication (HCC) Given 04/10/2020 1:11 PM EDT 10 mL vedolizumab (ENTYVIO) 300 mg in sodium chloride 0.9 % 250 mL 300 mg, Intravenous, ONCE, 1 dose, On Mon04/10/20 at 1300, Administer over 30 Minutes, Administer over 30 minutes Order date: 12/27/2019, Dx: 1. Crohn's disease of colon with complication (HCC)Indications:Crohn's disease of colon with complication (HCC) IV Started 04/10/2020 1:14 PM EDT 300 mg 560 mL/hr documented in this encounter Care Teams Customer Supply Coordinator Relationship Specialty Start Date End Date Henry Dhaliwal DO [address] [facility] [place] [address] PCP - General Family Medicine 08/02/18 11/11/20 documented as of this encounter
--- OUTSIDE RECORDS SUMMARY | 2024-08-15 13:56 | XMS_ITS | Encounter Summary ---
Author Organization [facility] [place] [address] Care Team Providers Care Other Sports Coach Or Instructor Name Role Phone Unavailable Primary Care Provider Unavailabl e Encounter Details Date Type Department Care Team (Latest Contact Info) Description 11/18/2020 Travel Social History Tobacco Use Types Packs/Day [...] have Coronavirus / COVID-19? No / Unsure 11/18/2020 2:21 PM EST documented as of this encounter [...] PM EST Office Visit [facility] [address] [place] [facility] [place] [address] Swapnil Lopez MD [address] [place] [address] 10/21/2024 2:00 PM EST [facility] [address] [place] [facility] [address] Jacky Shirley MD [address] [place] [address] [place] [address] 10/23/2024 1:45 PM EST Appointment [facility] [place] [address] Olena Darby APRN [address] [place] [address] [place] [address] documented as of this encounter Goals Goal Patient Goal Type Associated Problems Recent Progress Patient-Stated? Author Maintain a healthy diet, exercise regularly and maintain an ideal body weight General No Linda Walden RMA documented as of this encounter Visit Diagnoses Not on filedocumented in this encounter
--- OUTSIDE RECORDS SUMMARY | 2024-08-15 13:56 | XMS_ITS | Encounter Summary ---
Author Organization [place] [address] Care Team Providers Care Glass Belt Sander Name Role Phone Henry Dhaliwal Primary Care Provider Encounter Details Date Type Department Care Team (Late st Contact Info) Description 04/15/2020 Orders Only [facility] [place] [address] Josey Garcia, ANGE Social History Tobacco Use Types Packs/Day Years [...] have Coronavirus / COVID-19? No / Unsure 04/14/2020 1:03 PM EDT documented as of this encounter [...] PM EST Office Visit [facility] [address] [facility] [address] Swapnil Lopez MD [address] [address] 10/21/2024 2:00 PM EST Appointment [facility] MRI [address] [place] [address] Jacky Shirley MD [address] [place] [address] [place] [address] 10/23/2024 1:45 PM EST Appointment [facility] [place] [address] Olena Darby APRN [address] [place] [address] documented as of this encounter Goals Goal Patient Goal Type Associated Problems Recent Progress Patient-Stated? Author Maintain a healthy diet, exercise regularly and maintain an ideal body weight General No Linda Walden RMA documented as of this encounter Visit Diagnoses Not on filedocumented in this encounter Care Teams Glass Belt Sander Relationship Specialty Start Date End Date Henry Dhaliwal DO [address] [place] [id number] PCP - General Family Medicine 08/02/18 11/11/20 documented as of this encounter
--- OUTSIDE RECORDS SUMMARY | 2024-08-15 13:56 | XMS_ITS | Encounter Summary ---
Author Organization [facility] [place] [address] Care Team Providers Care Metal Fitters And Machinists Name Role Phone MadhuriHenry Primary Care Provider [phone] Encounter Details Date Type Department Care Team (Latest Contact Info) Description 05/22/2020 Travel Social History Tobacco Use Types Packs/Day [...] have Coronavirus / COVID-19? No / Unsure 05/22/2020 12:59 PM EDT documented as of this encounter [...] EST Office Visit [facility] [address] [place] [address] Swapnil Lopez MD [address] [place] [address] 10/21/2024 2:[address] [facility] MRI [address] [place] [address] Jacky Shirley MD [address] [place] [address] [place], [place] [id number] 10/23/2024 1:45 PM EST Appointment [facility] [place] [address] Olena Darby APRN [address] [place] [address] [place], [place] [id number] documented as of this encounter Goals Goal Patient Goal Type Associated Problems Recent Progress Patient-Stated? Author Maintain a healthy diet, exercise regularly and maintain an ideal body weight General No Linda Walden RMA documented as of this encounter Visit Diagnoses Not on filedocumented in this encounter Care Teams Metal Fitters And Machinists Relationship Specialty Start Date End Date Henry Dhaliwal DO [address] [employer] [place] [address] PCP - General Family Medicine 08/02/18 11/11/20 documented as of this encounter
--- OUTSIDE RECORDS SUMMARY | 2024-08-15 13:56 | XMS_ITS | Encounter Summary ---
Author Organization [facility] [place] [address] Care Team Providers Care Scoop Machine Operator Name Role Phone Unavailable Primary Care Provider Unavailabl e Encounter Details Date Type Department Care Team (Latest Contact Info) Description 03/26/2021 Travel Social History Tobacco Use Types Packs/Day [...] have Coronavirus / COVID-19? No / Unsure 03/26/2021 11:04 AM EDT documented as of this encounter [...] PM EST Office Visit [facility] [address] [facility] [place] [address] Swapnil Lopez MD [address] [place] [address] 10/21/2024 2:00 PM EST [facility] [address] [place] [facility] [address] Jacky Shirley MD [address] [place] [address] [place]ER [place], [place] [id number] 10/23/2024 1:45 PM EST Appointment [facility] [place] [address] Olena Darby APRN [address] [place] [address] [place], [place] [id number] documented as of this encounter Goals Goal Patient Goal Type Associated Problems Recent Progress Patient-Stated? Author Maintain a healthy diet, exercise regularly and maintain an ideal body weight General No Linda Walden RMA documented as of this encounter Visit Diagnoses Not on filedocumented in this encounter
--- OUTSIDE RECORDS SUMMARY | 2024-08-15 13:56 | XMS_ITS | Encounter Summary ---
Author Organization [facility] [place] [address] Care Team Providers Care Dragline Operator Name Role Phone MadhuriHenry Primary Care Provider [phone] Encounter Details Date Type Department Care Team (Latest Contact Info) Description 03/05/2020 Travel Social History Tobacco Use Types Packs/Day [...] PM EST Office Visit [facility] [address] [place] [address] Swapnil Lopez MD [address] [place] [address] 10/21/2024 2:00 PM EST Appointment [facility] MRI [address] [place] [address] Jacky Shirley MD [address] [place] [address] [place], [place] [id number] 10/23/2024 1:45 PM EST Appointment [facility] [place] [address] Olena Darby APRN [address] [place] [address] [place], [place] [id number] documented as of this encounter Goals Goal Patient Goal Type Associated Problems Recent Progress Patient-Stated? Author Maintain a healthy diet, exercise regularly and maintain an ideal body weight General No Linda Walden RMA documented as of this encounter Visit Diagnoses Not on filedocumented in this encounter Care Teams Dragline Operator Relationship Specialty Start Date End Date Henry Dhaliwal DO [address] [employer] [place] [address] PCP - General Family Medicine 08/02/18 11/11/20 documented as of this encounter
--- OUTSIDE RECORDS SUMMARY | 2024-08-15 13:56 | XMS_ITS | Encounter Summary ---
Author Organization [place] [address] Care Team Providers Care Land Acquisition Specialist Name Role Phone Henry Dhaliwal DO Primary Care Provider [phone] Reason for Visit * Reason Onset Date Comments Central Patient Navigator Outreach 03/19/2020 Encounter Details Date Type Department Care Team (Late st Contact Info) Description 03/19/2020 Patient Outreach [facility] [address] [place], [place] [id number] Henry Dhaliwal DO [address] [place] [address] Central Patient Navigator Outreach Social History Tobacco Use Types Packs/Day Years [...] documented in this encounter Progress Notes * Corrine Melgar - 03/19/2020 2:47 PM EDT Patient Outreach: Care Gap Outreach Attempt Count: inbound Care Gaps Addressed nursing information systems coordinator: Annual Wellness Visit and Mammogram Outcome: Patient declined, states she no longer goes to this facility, moved. * Jumana Mcdaniel, RN - 03/19/2020 1:10 PM EDT Patient Outreach: Care Gap Outreach Attempt Count: 1st Care Gaps Addressed nursing information systems coordinator: Annual Wellness Visit and Mammogram Outcome: Left message to return call at documented in this encounter Plan of Treatment Upcoming Encounters Date Type Department Care Team (Late st Contact Info) Description 09/11/2024 1:45 PM EST Office Visit [facility] [address] [facility] [place] [address] Swapnil Lopez MD [address] [place] [address] 10/21/2024 2:00 PM EST Appointment [facility] [place] MRI [address] [place] [id number] Jacky Shirley MD 1 [facility] [place] [address] 10/23/2024 1:45 PM EST Appointment [facility] [place] [address] Olena Darby APRN [address] [place] [address] [facility] [place], [place] [id number] documented as of this encounter Goals Goal Patient Goal Type Associated Problems Recent Progress Patient-Stated? Author Maintain a healthy diet, exercise regularly and maintain an ideal body weight General No Linda Walden, LUA documented as of this encounter Visit Diagnoses Not on filedocumented in this encounter Care Teams Land Acquisition Specialist Relationship Specialty Start Date End Date Henry Dhaliwal DO [address] [place] [id number] PCP - General Family Medicine 08/02/18 11/11/20 documented as of this encounter
--- OUTSIDE RECORDS SUMMARY | 2024-08-15 13:56 | XMS_ITS | Encounter Summary ---
Author Organization [facility] [place] [address] Care Team Providers Care Wage Analyst Name Role Phone Henry Dhaliwal Primary Care Provider [phone] Encounter Details Date Type Department Care Team (Latest Contact Info) Description 04/14/2020 Travel Social History Tobacco Use Types Packs/Day [...] PM EST Office Visit [facility] [address] [place] [address] Swapnil Lopez MD [address] [place] [address] 10/21/2024 2:00 PM EST Appointment [facility] MRI [address] [place] [address] Jacky Shirley MD [address] [place] [address] [place], [place] [id number] 10/23/2024 1:45 PM EST Appointment [facility] [place] [place] [address] Olena Darby APRN [address] [place] [address] [place], [place] [address] documented as of this encounter Goals Goal Patient Goal Type Associated Problems Recent Progress Patient-Stated? Author Maintain a healthy diet, exercise regularly and maintain an ideal body weight General No Linda Walden RMA documented as of this encounter Visit Diagnoses Not on filedocumented in this encounter Care Teams Wage Analyst Relationship Specialty Start Date End Date Henry Dhaliwal DO [address] [facility] [place] [address] PCP - General Family Medicine 08/02/18 11/11/20 documented as of this encounter
--- OUTSIDE RECORDS SUMMARY | 2024-08-15 13:56 | XMS_ITS | Encounter Summary ---
Author Organization [facility] [place] [address] Care Team Providers Care Chute Feeder Name Role Phone Henry Dhaliwal Primary Care Provider [phone] Encounter Details Date Type Department Care Team (Latest Contact Info) Description 04/14/2020 1:05 PM EDT - 04/14/2020 11:59 PM EDT Hospital Encounter [facility] [address] [place] [address] [facility], [facility] Discharge Disposition: Home or Self Care Social [...] PM EST Office Visit [facility] [address] [place] [address] Swapnil Lopez MD [address] [place] [address] 10/21/2024 2:00 PM EST Appointment [facility] MRI [address] [place] [address] Jacky Shirley MD [address] [place] [address] [place] [address] 10/23/2024 1:45 PM EST Appointment [facility] [place] [address] Olena Darby APRN [address] [place] [address] [place] [address] documented as of this encounter Goals Goal Patient Goal Type Associated Problems Recent Progress Patient-Stated? Author Maintain a healthy diet, exercise regularly and maintain an ideal body weight General No Linda Walden, RMA documented as of this encounter Visit Diagnoses Not on filedocumented in this encounter Care Teams Chute Feeder Relationship Specialty Start Date End Date Henry Dhaliwal DO [address] [employer] [address] [place], [place] [address] PCP - General Family Medicine 08/02/18 11/11/20 documented as of this encounter
--- OUTSIDE RECORDS SUMMARY | 2024-08-15 13:56 | XMS_ITS | Encounter Summary ---
Author Organization [facility] [place] [address] Care Team Providers Care Ammunition Components Inspector Name Role Phone MadhuriHenry Primary Care Provider [phone] Encounter Details Date Type Department Care Team (Latest Contact Info) Description 07/09/2020 Travel Social History Tobacco Use Types Packs/Day [...] have Coronavirus / COVID-19? No / Unsure 07/09/2020 1:00 PM EDT documented as of this encounter [...] PM EST Office Visit [facility] [address] [place] [address] Swapnil Lopez MD [address] [place] [address] 10/21/2024 2:00 PM EST Appointment [facility] MRI [address] [place] [address] Jacky Shirley MD [address] [place] [address] [place], [place] [id number] 10/23/2024 1:45 PM EST Appointment [facility] [place] [address] Olena Darby APRN [address] [place] [address] [place], [place] [id number] documented as of this encounter Goals Goal Patient Goal Type Associated Problems Recent Progress Patient-Stated? Author Maintain a healthy diet, exercise regularly and maintain an ideal body weight General No Linda Walden RMA documented as of this encounter Visit Diagnoses Not on filedocumented in this encounter Care Teams Ammunition Components Inspector Relationship Specialty Start Date End Date Henry Dhaliwal DO [address] [employer] [place] [address] PCP - General Family Medicine 08/02/18 11/11/20 documented as of this encounter
--- OUTSIDE RECORDS SUMMARY | 2024-08-15 13:56 | XMS_ITS | Encounter Summary ---
Author Organization [facility] Address [address] [place] [address] Care Team Providers Care Wireline Supervisor Name Role Phone Unavailable Primary Care Provider Unavailabl e Encounter Details Date Type Department Care Team (Late st Contact Info) Description 03/24/2021 [place] [address] Henry Lantigua MD De Quervain thyroiditis (Primary Dx) Social History Tobacco Use Types [...] PM EST Office Visit [facility] [address] [place] [facility] [place] [address] Swapnil Lopez MD [address] [place] [address] 10/21/2024 2:00 PM EST Appointment [facility] MRI [address] [place] [address] Jacky Shirley MD [address] [place] [address] [place] [address] 10/23/2024 1:45 PM EST Appointment [facility] [place] [address] Olena Darby APRN [address] [place] [address] Scheduled Orders Name Type Priority Associated Diagnoses Orde r Schedule SURGICAL/PROCEDURE CASE REQUEST - [facility] Procedures Routine De Quervain thyroiditis Ordered: 03/24/2021 documented as of this encounter Goals Goal Patient Goal Type Associated Problems Recent Progress Patient-Stated? Author Maintain a healthy diet, exercise regularly and maintain an ideal body weight General No Linda Walden RMA documented as of this encounter Visit Diagnoses Diagnosis De Quervain thyroiditis- Primary Subacute thyroiditis documented in this encounter
--- OUTSIDE RECORDS SUMMARY | 2024-08-15 13:56 | XMS_ITS | Encounter Summary ---
Author Organization [place] [address] Care Team Providers Care Bar Turner Name Role Phone Henry Dhaliwal DO Primary Care Provider [phone] Reason for Visit * Oncology Medication Prior Authorization (Routine) - Closed Specialty Diagnoses / Procedures Referred By Lata t Referred To Contact Diagnoses Crohn's disease of colon with complication (HCC) Procedures . Swapnil Lopez MD [address] [place] [id number] Phone: tel: fax: [address] [place] [address] Phone: tel: fax: Referral ID Status Reason Start Date Expiration Date Visits Re quested Visits Authorized [id number] Closed 04/15/2020 04/15/2021 99 99 Encounter Details Date Type Department Care Team (Latest Contact Info) Description 10/08/2020 12:30 PM EST - 10/08/2020 11:59 PM EST Hospital Encounter [address] [place] [address] Crohn's disease of colon with [...] have Coronavirus / COVID-19? No / Unsure 10/08/2020 12:31 PM EST documented as of this encounter Last Filed Vital Signs Vital Sign Reading Time Taken Comments Blood Pressure 133/73 10/08/2020 1:56 PM EST Pulse 67 10/08/2020 1:56 PM EST Temperature 36.7 ??C (98.1 ??F) 10/08/2020 1:56 PM ES T Respiratory Rate 16 10/08/2020 1:56 PM EST Oxygen Saturation - - Inhaled Oxygen Concentration - - Weight 55.8 kg (123 lb) 10/08/2020 1:01 PM EST Height - - Body Mass Index 22.5 11/15/2019 9:22 AM EST documented in this [...] 09/05/2017 11:13 AM EST Gabby Mercedes, SHANNON documented in this encounter Medications at Time of Discharge traMADol (ULTRAM) 50 mg Oral Tablet 50 mg every 6 hours as needed. 10/18/2019 04/12/2022 documented as of this encounter Discharge Disposition Disposition Code Departure Means Destination Home or Self Care documented in this encounter Miscellaneous Notes * Patient Instructions - Marely Bolden RN - 10/08/2020 12:30 PM EST [facility] Discharge Instructions Thank you for entrusting the [facility] with your care. We hope you are pleased with your outpatient care and services. Because we are most concerned with your health, we suggest you carefully read the following discharge instructions: Your Discharge Instructions: MEDICATION INSTRUCTIONS: Treatment received today: entjayden Reviewed medications administered today and possible side effects Dizziness and sleepiness are possible side effects of pain medication. When taking pain medications, do not drink alcohol or drive. ACTIVITY INSTRUCTIONS: Rest today, increase activity as tolerated. DIET INSTRUCTIONS: As tolerated FOLLOW-UP CARE: Call your doctor for [...] - Monday 8:00 AM - 4:30 PM. [facility] [address] [address] [place] [address] [place], [place] [id number] [facility] [address] [place], [place] [id number] documented in this encounter Plan of Treatment Upcoming Encounters Date Type Department Care Team (Late st Contact Info) Description 09/11/2024 1:45 PM EST Office Visit [facility] [address] [place] [address] Swapnil Lopez MD [address] [place] [address] 10/21/2024 2:00 PM EST Appointment [facility] MRI [address] [place] [address] Jacky Shirley MD [address] [place] [address] 10/23/2024 1:45 PM EST Appointment [facility] [place] [address] Olena Darby APRN [address] [place] [phone] documented as of this encounter Goals Goal [...] Intravenous, at 30 mL/hr, CONTINUOUS, Starting on Ashlie 10/08/20 at 1245, Until Mon10/09/20 at 1244, For telecommunications line installer during infusion., Dx: 1. Crohn's disease of colon with complication (HCC)Indications:Crohn's disease of colon with complication (HCC) Rate/Dose Change 10/08/2020 1:57 PM EST 300 mL/hr sodium chloride 0.9% syringe Intravenous, PRN, Starting on Ashlie 10/08/20 at 1243, Until 10/10/20 at 0406, Line Care, Flush after IV medication, Dx: 1. Crohn's disease of colon with complication (HCC)Indications:Crohn's disease of colon with complication (HCC) Given 10/08/2020 1:05 PM EST 10 mL vedolizumab (ENTYVIO) 300 mg in sodium chloride 0.9 % 250 mL 300 mg, Intravenous, EVERY 6 WEEKS, First dose on Ashlie 10/08/20 at 1245, Until Discontinued, Administer over 30 Minutes, Administer over 30 minutes Order Date: 04/14/2020, Dx: 1. Crohn's disease of colon with complication (HCC)Indications:Crohn's disease of colon with complication (HCC) IV Started 10/08/2020 1:23 PM EST 300 mg 560 mL/hr documented in this encounter Care Teams Bar Turner Relationship Specialty Start Date End Date Henry Dhaliwal DO [address] [employer] [place] [address] PCP - General Family Medicine 08/02/18 11/11/20 documented as of this encounter
--- OUTSIDE RECORDS SUMMARY | 2024-08-15 13:56 | XMS_ITS | Encounter Summary ---
Author Organization [facility] [place] [address] Care Team Providers Care Applications Scientist Name Role Phone Unavailable Primary Care Provider Unavailabl e Encounter Details Date Type Department Care Team (Latest Contact Info) Description 12/01/2020 Travel Social History Tobacco Use Types Packs/Day [...] PM EST Office Visit [facility] [address] [place] [address] Swapnil Lopez MD [address] [place] [address] 10/21/2024 2:00 PM EST [facility]ment [facility] [address] [place] [facility] [address] Jacky Shirley MD [address] [place] [address] [place] [address] 10/23/2024 1:45 PM EST Appointment [facility] [place] [address] Olena Darby APRN [address] [place] [address] [place] [address] documented as of this encounter Goals Goal Patient Goal Type Associated Problems Recent Progress Patient-Stated? Author Maintain a healthy diet, exercise regularly and maintain an ideal body weight General No Linda Walden RMA documented as of this encounter Visit Diagnoses Not on filedocumented in this encounter
--- OUTSIDE RECORDS SUMMARY | 2024-08-15 13:56 | XMS_ITS | Encounter Summary ---
Author Organization [facility] Address [address] [place] [address] Care Team Providers Care Pizza Delivery Name Role Phone Unavailable Primary Care Provider Unavailabl e Encounter Details Date Type Department Care Team (Late st Contact Info) Description 02/05/2021 [place] [address] Henry Lantigua MD De Quervain thyroiditis (Primary [...] have Coronavirus / COVID-19? No / Unsure 02/04/2021 2:34 PM EDT documented as of this encounter [...] Description 09/11/2024 1:45 PM EST Office [facility] [address] [place] [address] Swapnil Lopez MD [address] [place] [address] 10/21/2024 2:00 PM EST Appointment [facility] MRI [address] [place] [address] Jacky Shirley MD [address] [place] [address] [place] [address] 10/23/2024 1:45 PM EST Appointment [facility] [place] [place] [address] Olena Darby APRN [address] [place] [address] documented as of this encounter Goals Goal Patient Goal Type Associated Problems Recent Progress Patient-Stated? Author Maintain a healthy diet, exercise regularly and maintain an ideal body weight General No Linda Walden RMA documented as of this encounter Visit Diagnoses Diagnosis De Quervain thyroiditis- Primary Subacute thyroiditis documented in this encounter
--- OUTSIDE RECORDS SUMMARY | 2024-08-15 13:56 | XMS_ITS | Encounter Summary ---
Author Organization [facility] [place] [address] Care Team Providers Care Financial Business Analyst Name Role Phone Unavailable Primary Care Provider Unavailabl e Encounter Details Date Type Department Care Team (Latest Contact Info) Description 02/04/2021 Travel Social History Tobacco Use Types Packs/Day [...] PM EST Office Visit [facility] [address] [place] [facility] [address] Swapnil Lopez MD [address] [place] [address] 10/21/2024 2:00 PM EST [facility] [address] [place] [facility] [place] [address] Jacky hSirley MD [address] [place] [address] CANCER [place], [place] [id number] 10/23/2024 1:45 PM EST Appointment [facility] [place] [address] Olena Darby APRN [address] [place] [address] [place], [place] [id number] documented as of this encounter Goals Goal Patient Goal Type Associated Problems Recent Progress Patient-Stated? Author Maintain a healthy diet, exercise regularly and maintain an ideal body weight General No Linda Walden RMA documented as of this encounter Visit Diagnoses Not on filedocumented in this encounter
--- OUTSIDE RECORDS SUMMARY | 2024-08-15 13:56 | XMS_ITS | Encounter Summary ---
Author Organization [place] [address] Care Team Providers Care Credit Investigator Name Role Phone Henry Dhaliwal Primary Care Provider [phone] Encounter Details Date Type Department Care Team (Late st Contact Info) Description 10/13/2020 Orders Only [facility] [place] [address] Monica Rouse RN Social History Tobacco Use Types Packs/Day [...] Description 09/11/2024 1:45 PM EST Office Visit [facility] [address] [place] [address] Swapnil Lopez MD [address] [place] [address] 10/21/2024 2:00 PM EST Appointment [facility] MRI [address] [place] [address] Jacky Shirley MD [address] [place] [address] [place] [address] 10/23/2024 1:45 PM EST Appointment [facility] [place] [place] [address] Olena Darby APRN [address] [place] [address] [place] [address] documented as of this encounter Goals Goal Patient Goal Type Associated Problems Recent Progress Patient-Stated? Author Maintain a healthy diet, exercise regularly and maintain an ideal body weight General No Linda Walden RMA documented as of this encounter Visit Diagnoses Not on filedocumented in this encounter Care Teams Credit Investigator Relationship Specialty Start Date End Date Henry Dhaliwal DO [address] [employer] [place] [id number] PCP - General Family Medicine 08/02/18 11/11/20 documented as of this encounter
--- OUTSIDE RECORDS SUMMARY | 2024-08-15 13:56 | XMS_ITS | Encounter Summary ---
Author Organization [facility] [place] [address] Care Team Providers Care Medical Staff Assistant Name Role Phone Unavailable Primary Care Provider Unavailabl e Encounter Details Date Type Department Care Team (Latest Contact Info) Description 01/12/2021 Travel Social History Tobacco Use Types Packs/Day [...] have Coronavirus / COVID-19? No / Unsure 01/12/2021 12:24 PM EDT documented as of this encounter [...] PM EST Office Visit [facility] [address] [place] [facility] [address] Swapnil Lopez MD [address] [place] [address] 10/21/2024 2:00 PM EST [facility] [address] [facility] [place] [address] Jacky Shirley MD [address] [place] [address] [place], [place] [id number] 10/23/2024 1:45 PM EST Appointment [facility] [place] [address] Olena Darby APRN [address] [place] [address] [place], [place] [id number] documented as of this encounter Goals Goal Patient Goal Type Associated Problems Recent Progress Patient-Stated? Author Maintain a healthy diet, exercise regularly and maintain an ideal body weight General No Linda Walden RMA documented as of this encounter Visit Diagnoses Not on filedocumented in this encounter
--- OUTSIDE RECORDS SUMMARY | 2024-08-15 13:56 | XMS_ITS | Encounter Summary ---
Author Organization [place] [address] Care Team Providers Care Inspector Hot Forgings Name Role Phone Henry Dhaliwal DO Primary Care Provider [phone] Reason for Visit * Reason Onset Date Comments Referral 10/26/2020 Gastro Encounter Details Date Type Department Care Team (Late st Contact Info) Description 10/26/2020 Telephone [address] [place] [address] Henry Dhaliwal DO [address] [place] [address] Referral (Gastro ) Social History Tobacco Use Types Packs/Day [...] encounter Miscellaneous Notes * Telephone Encounter - Alanis Rodgers COA - 10/27/2020 1:14 PM EST Pt returned office call. Pt advised of Dr. Dhaliwal message. Pt given number for gastro. * Telephone Encounter - Mildred Alfaro MA - 10/27/2020 10:16 AM EST Call to patient, [facility]. [phone] [facility]. * Telephone Encounter - Henry Dhaliwal DO - 10/27/2020 9:13 AM EST Please tell her Dr. Winchester is pretty good would she like a referral placed to him. * Telephone Encounter - Zoila Hewitt MA - 10/26/2020 2:49 PM EST please advise * Telephone Encounter - Rosi Resendiz RMA - 10/26/2020 2:10 PM EST Referral Request Who is requesting the referral: Patient What type of referral: Gastro What is the reason / diagnosis for this referral: Chron's Disease Have you been seen by your PCP for this issue: Yes Does patient have a preference on a group/provider: No Preferred Provider/Group Name: Preferred Provider/Group Phone Number: Preferred Provider/Group Fax Number: Additional Information: Pt states she wants the top Gastro doctor in [facility]. She states she was seeing Dr. Lopez and she is not happy with him. She stated because of him she has no quality of life and he is killing me. 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 She wants a new Gastro doctor bhakti. documented in this encounter Plan of Treatment Upcoming Encounters Date Type Department Care Team (Late st Contact Info) Description 09/11/2024 1:45 PM EST Office Visit [facility] [address] [place] [address] Swapnil Lopez MD [address] [place] [address] 10/21/2024 2:[address] [facility] MRI [address] [place] [address] Jacky Shirley MD [address] [place] [address] [place] [address] 10/23/2024 1:45 PM EST Appointment [facility] [place] [address] Olena Darby, SUPERVISOR [employer] [address] [facility] [place], [place] [id number] documented as of this encounter Goals Goal Patient Goal Type Associated Problems Recent Progress Patient-Stated? Author Maintain a healthy diet, exercise regularly and maintain an ideal body weight General No Linda Walden, RMA documented as of this encounter Visit Diagnoses Not on filedocumented in this encounter Care Teams Inspector Hot Forgings Relationship Specialty Start Date End Date Henry Dhaliwal DO [address] [place] [address] PCP - General Family Medicine 08/02/18 11/11/20 documented as of this encounter
--- OUTSIDE RECORDS SUMMARY | 2024-08-15 13:56 | XMS_ITS | Encounter Summary ---
Author Organization [facility] [place] [address] Care Team Providers Care Fruit Farmworker Name Role Phone Henry Dhaliwal Primary Care Provider [phone] Encounter Details Date Type Department Care Team (Latest Contact Info) Description 10/27/2020 Travel Social History Tobacco Use Types Packs/Day [...] have Coronavirus / COVID-19? No / Unsure 10/27/2020 1:29 PM EST documented as of this [...] PM EST Office Visit [facility] [address] [place] [address] Swapnil Lopez MD [address] [place] [address] 10/21/2024 2:00 PM EST Appointment [facility] MRI [address] [place] [address] Jacky Shirley MD [address] [place] [address] [place], [place] [id number] 10/23/2024 1:45 PM EST Appointment [facility] [place] [address] Olena Darby APRN [address] [place] [address] [place] [address] documented as of this encounter Goals Goal Patient Goal Type Associated Problems Recent Progress Patient-Stated? Author Maintain a healthy diet, exercise regularly and maintain an ideal body weight General No Linda Walden RMA documented as of this encounter Visit Diagnoses Not on filedocumented in this encounter Care Teams Fruit Farmworker Relationship Specialty Start Date End Date Henry Dhaliwal DO [address] [employer] [place] [address] PCP - General Family Medicine 08/02/18 11/11/20 documented as of this encounter
--- OUTSIDE RECORDS SUMMARY | 2024-08-15 13:56 | XMS_ITS | Encounter Summary ---
Author Organization [facility] [address] Care Team Providers Care Tank Wagon Operator Name Role Phone Henry Dhaliwal Primary Care Provider [phone] Encounter Details Date Type Department Care Team (Latest Contact Info) Description 04/10/2020 Travel Social History Tobacco Use Types Packs/Day [...] PM EST Office Visit [facility] [address] [place] [address] Swapnil Lopez MD [address] [place] [address] 10/21/2024 2:00 PM EST Appointment [facility] MRI [address] [place] [address] Jacky Shirley MD [address] [place] [address] CANCER [place], [place] [id number] 10/23/2024 1:45 PM EST Appointment [facility] [place] [address] Olena Darby APRN [address] [place] [address] [place]ER [place], [place] [id number] documented as of this encounter Goals Goal Patient Goal Type Associated Problems Recent Progress Patient-Stated? Author Maintain a healthy diet, exercise regularly and maintain an ideal body weight General No Linda Walden RMA documented as of this encounter Visit Diagnoses Not on filedocumented in this encounter Care Teams Tank Wagon Operator Relationship Specialty Start Date End Date Henry Dhaliwal DO [address] [employer] [place] [address] PCP - General Family Medicine 08/02/18 11/11/20 documented as of this encounter
--- OUTSIDE RECORDS SUMMARY | 2024-08-15 13:56 | XMS_ITS | Encounter Summary ---
Author Organization [facility] Address [address] [place] [address] Care Team Providers Care Resaw Machine Operator Name Role Phone Unavailable Primary Care Provider Unavailabl e Reason for Referral * Surgical (Routine) - Closed Specialty Diagnoses / Procedures Referred By Lata deal Referred To Contact Diagnoses De Quervain thyroiditis Radial styloid tenosynovitis (de quervain) Procedures AMB OC SURGERY COMMUNICATION ORDER DE INCIS TENDON SHEATH,RADIAL STYLOID Henry Lantigua MD Referral ID Status Reason Start Date Expiration Date Visits Re quested Visits Authorized [id number] Closed 02/04/2021 02/04/2022 1 1 Reason for Visit * Reason Comments Pain Encounter Details Date Type Department Care Team (Late st Contact Info) Description 02/04/2021 2:45 PM [place] [address] Henry Lantigua MD De Quervain thyroiditis (Primary [...] Sign Reading Time Taken Comments Blood Pressure - - Pulse - - Temperature - - Respiratory Rate - - Oxygen Saturation - - Inhaled Oxygen Concentration - - Weight 54.4 kg (120 lb) 02/04/2021 2:45 PM EDT Height 157.5 cm (5' 2 ) 02/04/2021 2:45 PM EDT Body Mass Index 21.95 02/04/2021 2:45 PM EDT documented in this [...] AM Gabby DeL a Garza RMA * Does this person have [...] Progress Notes * Henry Lantigua MD - 02/04/2021 3:07 PM EDT DATE OF SERVICE: 02/04/2021 CHIEF COMPLAINT: Left wrist. HISTORY: Marleni Sy is 60 years old, a left-handed patient of Dr. Damaso Black. She comes in with de Quervain's stenosing tenosynovitis of her left wrist for about six months. It has been going on for quite some time. Her hand exam is otherwise normal. Negative grind test. No effusion. Full range of motion. Neurovascular exams are intact. Past medical history is significant for Crohn's disease, chronic pain, and anemia. She is allergic to sulfa drugs. She does not smoke. Medicines are in Epic. GENERAL: Patient is alert, oriented x 3, able to communicate. CARDIOVASCULAR: Regular rate and rhythm. RESPIRATORY: No shortness of breath or labored breathing. NECK: Full supple range of motion of the neck, negative Spurling?s test. THORACIC OUTLET: Negative March?s hyperabduction test, Adson?s test, and costoclavicular test. SHOULDER: Full, stable range of motion without pain, impingement or instability. ELBOW: Full range of motion with no tenderness, no effusion or crepitus. FOREARM: No masses, swelling, or tenderness, full pronation and supination. HAND: Normal posture and appearance of the hand without swelling, discoloration, or induration. Skin has normal color, moisture, mobility, and temperature. No scars or lesions. Nails are normal shapeand color with good capillary refill. WRIST: Full range of motion without crepitus, instability or tenderness. Negative scaphoid shift test, negative lunotriquetral shear test. DRUJ: Stable, nontender, no effusion or crepitus. FINGERS: Full range of motion of all of the fingers. No joint deformity or effusion. THUMB: She has a very positive Jeannette's test and swelling in the first compartment. MUSCLES: Normal thenar, hypothenar and interosseous muscle function. Normal flexor and extensor tendons. NERVES: Normal sensibility of the hands and fingers. Negative Phalen?s test. Negative median nerve compression test. Negative elbow flexion test. Negative long finger extension test. No cubital tunnel tenderness or Tinel?s sign. No tenderness at the ulnar tunnel at Guyon?s canal. No palpable masses. No pain over the radial tunnel in the forearm. VASCULAR: Normal radial and ulnar pulses. Normal Cooper?s test. LYMPHATICS: No lymphangitis, lymphadenopathy or lymphedema. 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 PLAN: I showed the patient the skeletal model of a wrist and forearm, explained the anatomy of the tendons in that first compartment, explained the pathology and reason for the pain and explained treatment options such as splinting, anti- inflammatories, steroid injections into the tendon sheath or surgical release of that first retinacular compartment. I explained the operation could be done under local anesthesia with a short incision at the radial styloid off of that first compartment with release of that rex and decompression of the tendons. I explained the postoperative care, keeping the wound clean and dry but starting active range of motion exercises immediately after the operation. I told the patient that possible complications of an operation could include but are not limited to an anesthesia reaction or side effect, bleeding, bruising, infection, scarring, damage to vessels,nerves, or tendons in the area of the operation, specifically the sensory branch of the radial nerve with resultant numbness in the hand, or painful scar or neuroma or subluxation of the tendons. She has failed conservative treatment including a steroid injection. We are going to schedule a FIRST COMPARTMENT RELEASE as an outpatient procedure under local anesthesia. Henry Lantigua MD mlk TID: [id number] RECEIPT: [id number] documented in this encounter Plan of Treatment Upcoming Encounters Date Type Department Care Team (Late st Contact Info) Description 09/11/2024 1:45 PM EST Office Visit [facility] [address] [place] [address] Swapnil Lopez MD [address] [place] [address] 10/21/2024 2:00 PM EST Appointment [facility] MRI [address] [place] [address] Jacky Shirley MD [address] [place] [address] [place] [address] 10/23/2024 1:45 PM EST Appointment [facility] [place], [place] [id number] Olena Darby APRN [address] [facility] [place] [address] documented as of this encounter Goals Goal Patient Goal Type Associated Problems Recent Progress Patient-Stated? Author Maintain a healthy diet, exercise regularly and maintain an ideal body weight General No Linda Walden, RMA documented as of this encounter Visit Diagnoses Diagnosis De Quervain thyroiditis- Primary Subacute thyroiditis documented in this encounter Orders Nursing Count Last Ordered Date First Orde red Date AMB OC SURGERY COMMUNICATION ORDER 1 2020 documented in this encounter
--- OUTSIDE RECORDS SUMMARY | 2024-08-15 13:56 | XMS_ITS | Encounter Summary ---
Author Organization [place] [address] Care Team Providers Care Document Management Specialist Name Role Phone Henry Dhaliwal DO Primary Care Provider [phone] Reason for Visit * Reason Comments Crohn's Disease Diarrhea * Consultation (Routine) - Closed Specialty Diagnoses / Procedures Referred By Contact Referred To Contact Internal Medicine-Gastroenterology / Gastroenterology Diagnoses NPT//crohn's, anal fisure Procedures NEW PATIENT ACUTE Henry Dhaliwal DO [address] [place] [address] Phone: tel: fax: You Lindo MD [address] [place] [address] Phone: tel:[phone] fax:[phone] Referral ID Status Reason Start Date Expiration Date Visits Re quested Visits Authorized [id number] Closed 11/11/2020 11/11/2021 99 99 Encounter Details Date Type Department Care Team (Late st Contact Info) Description 11/11/2020 2:30 PM EST Office Visit [facility] [address] [facility] [address] [place] [address] You Lindo MD [address] [place] [address] Crohn's disease of both small and large intestine without complication (HCC) (Primary Dx); History of colon surgery; Transsphincteric anal fistula Social History Tobacco Use Types Packs/Day Years [...] have Coronavirus / COVID-19? No / Unsure 11/11/2020 2:25 PM EST documented as of this encounter Last Filed Vital Signs Vital Sign Reading Time Taken Comments Blood Pressure 128/70 11/11/2020 2:59 PM EST Pulse 61 11/11/2020 2:59 PM EST Temperature 35.6 ??C (96 ??F) 11/11/2020 2:59 PM EST Respiratory Rate - - Oxygen Saturation - - Inhaled Oxygen Concentration - - Weight 57.6 kg (127 lb) 11/11/2020 2:59 PM EST Height 157.5 cm (5' 2 ) 11/11/2020 2:59 PM EST Body Mass Index 23.23 11/11/2020 2:59 PM EST documented in this [...] as needed for 30 days for diarrhea 120 Tab 11/11/2020 2 documented in this encounter Progress Notes * You Lindo MD - 11/11/2020 2:30 PM EST [facility] Gastroenterology Outpatient Followup Note Reason for visit: Crohn's Disease and Diarrhea Subjective: A 60-year-old female with history of Crohn's disease presents for follow-up. She continues to complain of severe diarrhea despite having been started on Entyvio for the past 8 months. She has up to 10-15 BMs per day,and denies melena, hematochezia or fever. She uses Lomotil for symptom control, buthas to take more than prescribed dosage. She takes 4 to 6 tablets 3 times daily to achieve done well controlled, leading to her monthly medications running out in 2 weeks. [facility] last see by my partner, Dr Dai last year, 11/2019. Jacqueline [facility] has been managing her Entyvio therapy. She is not satisfied with this medication and would like to be placed on Remicade. She was seen by [facility], between Nov-April 2020, and had undergone EGD/Cscopy in 12/2019. 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 She has hx of anal fistula which she reports to be asymptomatic when her diarrhea is well controlled. Review of Systems: Constitutional: Fever -, sweats -, chills -, weight loss or gain -YES HEENT: Headaches -YES, visual problems -, hearing problems - Neuro: Dizziness -, seizures -, neuropathy -, Stroke -, TIA - Respiratory: Shortness of breath -, chest pain -, cough - Cardiovascular: Palpitation -, PND -, orthopnea -, Ankle/leg swelling - Gastrointestinal: as in the HPI Genitourinary: Dysuria -, urinary frequency -, urinary urgency -, hematuria - Musculoskeletal: Arthralgia -YES, myalgia - Endocrine: Diabetes -, thyroid problems - Integumentary: Easy bruising -, skin problems - Hematology / Lymphatics: Hx of anemia -YES, Lymphadenopathy - All other systems reviewed and are negative unless otherwise mentioned above Medications Current Outpatient Medications Medication Sig Dispense Refill ??? diphenoxylate-atropine (LOMOTIL) 2.5-0.025 mg Oral Tablet 2 tablets 3 times daily as needed for30 days for diarrhea 120 Tab 0 ??? DULoxetine (CYMBALTA) 30 mg Oral Capsule, Delayed Release(E.C.) ??? traMADol (ULTRAM) 50 mg Oral Tablet 50 mg every 6 hours as needed. ??? vedolizumab (ENTYVIO) 300 mg IV Recon Soln Entyvio 300 mg intravenous solution Inject every month by intravenous route. ??? cyclobenzaprine (FLEXERIL) 5 mg Oral Tablet Take 5 mg by mouth as needed. No current facility-administered medications for this visit. Physical Examination BP 128/70 (BP Location: Left arm, Patient Position: Sitting) Pulse 61 Temp 96 ??F (35.6 ??C) Ht 5' 2 (1.575 m) Wt 127 lb (57.6 kg) BMI 23.23 kg/m? General: alert, well developed, well nourished, in no acute distress ?? HEENT: Not pale, anicteric, normal, mucous membranes moist ?? Lungs: clear to auscultation bilaterally ?? Cardiac: RRR. S1 S2 normal. ?? Abdomen: soft, nontender, BS +, no masses or ascites ?? Ext: No cyanosis, clubbing. No pitting pedal edema ?? Neurological: No cranial nerve deficits. No asterixis Laboratory: Lab Results Component Value Date WBC 13.5 (H) 11/15/2019 HGB 11.3 11/15/2019 HCT 38.7 11/15/2019 MCV 80.0 11/15/2019 PLT 475 (H) 11/15/2019 Lab Results Component Value Date ALT 9 11/15/2019 AST 10 11/15/2019 GGT 71 (H) 06/25/2014 ALKPHOS 90 11/15/2019 BILIDIR 0.4 (H) 04/02/2015 PROT 7.1 11/15/2019 INR 1.17 (H) 06/25/2016 LIPASE 38 04/02/2015 Lab Results Component Value Date CREATININE 0.98 11/15/2019 BUN 16 11/15/2019 NA 139 11/15/2019 K 4.1 11/15/2019 CL 104 11/15/2019 CO2 25 11/15/2019 Lab Results Component Value Date INR 1.17 (H) 06/25/2016 Assessment Marleni Sy is a(n) 60 y.o. female with Crohn's disease Marleni was seen today for crohn's disease and diarrhea. Diagnoses and all orders for this visit: Crohn's disease of both small and large intestine without complication (HCC) Currently on Entyvio therapy, next dose due on 11/19/20 I have instructed patient that she has to make a decision on whether to continue her IBD GI care with [facility] or [facility]. She expressed interest in going to [facility] for her care when she gets her Medicaid application approved. Reviewing her notes from [facility] and [facility], it is obvious that patient has a history ofn noncompliance to therapy and has changed providers multiple times She is mainly interested in getting her Lomotil refilled today I will assess chronic inflammatory markers - CALPROTECTIN, FECAL - REF LAB; Future - SEDIMENTATION RATE AUTOMATED; Future - C-REACTIVE PROTEIN; Future - CBC; Future - diphenoxylate-atropine (LOMOTIL) 2.5-0.025 mg Oral Tablet; 2 tablets 3 times daily as needed for 30 days for diarrhea History of colon surgery Transsphincteric anal fistula - CALPROTECTIN, FECAL - REF LAB; Future - SEDIMENTATION RATE AUTOMATED; Future - C-REACTIVE PROTEIN; Future - CBC; Future Return in about 2 months (around 01/09/2021), or if symptoms worsen or fail to improve. This note was generated using voice recognition technology. It has been reviewed by the undersigned, however, may still contain unintended errors. You Lindo MD Genetic Coordinator [facility] [phone] documented in this encounter Miscellaneous Notes * Patient Instructions - Danielle Roca LPN - 11/11/2020 2:30 PM EST You may be contacted by mail or e-mail to participate in a patient satisfaction survey regarding your office visit today. We value your opinion and depend on your feedback to make improvements and provide you with the best possible experience while receiving high quality medical treatment. Your time in completing this survey is greatly appreciated. documented in this encounter Plan of Treatment Upcoming Encounters Date Type Department Care Team (Late st Contact Info) Description 09/11/2024 1:45 PM EST Office Visit [facility] [address] [place] [address] Swapnil Lopez MD [address] [place] [address] 10/21/2024 2:[address] [facility] MRI [address] [place] [address] Jacky Shirley MD [address] [place] [address] [place] [address] 10/23/2024 1:45 PM EST Appointment [facility] [place] [address] Olena Darby APRN [address] [place] [address] [place] [address] Scheduled Orders Name Type Priority Associated Diagnoses Orde r Schedule FECAL CALPROTECTIN Lab Routine Crohn's disease of both small and large intestine without complication (HCC) Transsphincteric anal fistula 1 Occurrences starting 11/11/2020 until 11/11/2021 SEDIMENTATION RATE AUTOMATED Lab Routine Crohn's disease of both small and large intestine without complication (HCC) Transsphincteric anal fistula 1 Occurrences starting 11/11/2020 until 11/11/2021 C-REACTIVE PROTEIN Lab Routine Crohn's disease of both small and large intestine without complication (HCC) Transsphincteric anal fistula 1 Occurrences starting 11/11/2020 until 11/11/2021 CBC Lab Routine Crohn's disease of both small and large intestine without complication (HCC) Transsphincteric anal fistula 1 Occurrences starting 11/11/2020 until 11/11/2021 documented as of this encounter Goals Goal Patient Goal Type Associated Problems Recent Progress Patient-Stated? Author Maintain a healthy diet, exercise regularly and maintain an ideal body weight General No Linda Walden, RMA documented as of this encounter Visit Diagnoses Diagnosis Crohn's disease of both small and large intestine without complication (HCC)- Primary Regional enteritis of small intestine with large intestine History of colon surgery Transsphincteric anal fistula Abscess of anal and rectal regions documented in this encounter Discontinued Medications Medication Sig Discontinue Reason Start Date End Da te PREVALITE 4 gram Oral Powder in Packet Cancelled by 01/22/2020 11/11/2020 ONDANSETRON ORAL Take 4 mg by mouth every 6 hours as needed for Nausea. Cancelled by 11/11/2020 hydrocortisone (CORTEF) 5 mg Oral Tablet Take 5 mg by mouth daily. Cancelled by 12/07/2019 11/11/2020 diphenoxylate-atropine (LOMOTIL) 2.5-0.025 mg Oral Tablet Reorder 10/29/2020 11/11/2020 documented as of this encounter Historical Medications * This list may reflect changes made after this encounter. vedolizumab (ENTYVIO) 300 mg IV Recon Soln Entyvio 300 mg intravenous solution Inject every month by intravenous route. 2 DULoxetine (CYMBALTA) 30 mg Oral Capsule, Delayed Release(E.C.) 11/03/2020 4 diphenoxylate-at ropine (LOMOTIL) 2.5-0.025 mg Oral Tablet 10/29/2020 1 added in this encounter Care Teams Document Management Specialist Relationship Specialty Start Date End Date Henry Dhaliwal DO [address] [place] [address] PCP - General Family Medicine 08/02/18 11/11/20 documented as of this encounter
--- OUTSIDE RECORDS SUMMARY | 2024-08-15 13:56 | XMS_ITS | Encounter Summary ---
Author Organization [place] [address] Care Team Providers Care Shell Fisherman Name Role Phone MadhuriHenry Jayant MARTEL Primary Care Provider [phone] Reason for Visit * Oncology Medication Prior Authorization (Routine) - Closed Specialty Diagnoses / Procedures Referred By Lata t Referred To Contact Diagnoses Crohn's disease of colon with complication (HCC) Procedures TN INJECTION, VEDOLIZUMAB Swapnil Lopez MD [address] [place] [phone] Phone: tel: fax: [address] [place] [address] Phone: tel: fax: Referral ID Status Reason Start Date Expiration Date Visits Re quested Visits Authorized [id number] Closed 12/31/2019 12/30/2020 1 1 Encounter Details Date Type Department Care Team (Latest Contact Info) Description 02/14/2020 12:54 PM EDT - 02/14/2020 11:59 PM EDT Hospital Encounter [address] [place] [address] Crohn's disease of colon with [...] have Coronavirus / COVID-19? No / Unsure 02/14/2020 12:54 PM EDT documented as of this encounter Last Filed Vital Signs Vital Sign Reading Time Taken Comments Blood Pressure 115/74 02/14/2020 1:55 PM EDT Pulse 72 02/14/2020 1:55 PM EDT Temperature 37.1 ??C (98.7 ??F) 02/14/2020 1:13 PM ED T Respiratory Rate 18 02/14/2020 1:55 PM EDT Oxygen Saturation - - Inhaled Oxygen Concentration - - Weight 54.1 kg (119 lb 4.8 oz) 02/14/2020 12:56 PM EDT Height - - Body Mass Index 21.82 11/15/2019 9:22 AM EST documented in this [...] Patient Instructions - Suri Hubbard RN - 02/14/2020 1:00 PM EDT [facility] Discharge Instructions Thank you for entrusting the [facility] with your care. We hope [...] - Monday 8:00 AM - 4:30 PM. [facility] [address] [place], [place] [id number] [place] [address] [id number] [facility] [address], [address] [place] [address] [place], [place] [id number] [facility] [address] [facility] [address] [facility]. [address] [id number] documented in this encounter Plan of Treatment Upcoming Encounters Date Type Department Care Team (Late st Contact Info) Description 09/11/2024 1:45 PM EST Office Visit [facility] [address] [address] Swapnil Lopez MD [address] [facility] [place] [address] 10/21/2024 2:00 PM EST Appointment [facility] MRI [address] [place] [address] Jacky Shirley MD [address] [place] [id number] 10/23/2024 1:45 PM EST Appointment [facility] [address] [place], [place] [id number] Olena Darby APRN [address] [place] [address] documented as of this encounter Goals Goal [...] Intravenous, at 300 mL/hr, PRN, Starting on Mon02/14/20 at 0757, Until Mon02/16/20 at 0403, For slack line yarder, Dx: 1. Crohn's disease of colon with complication (HCC)Indications:Crohn's disease of colon with complication (HCC) New Bag 02/14/2020 1:54 PM EDT 25 mL 300 mL/hr sodium chloride 0.9% syringe 10 mL 10 mL, Intravenous, PRN, Starting on Mon02/14/20 at 0757, Until 02/16/20 at 0403, Line Care, For Venous Access Device care and maintenance., Dx: 1. Crohn's disease of colon with complication (HCC)Indications:Crohn's disease of colon with complication (HCC) Given 02/14/2020 1:15 PM EDT 10 mL vedolizumab (ENTYVIO) 300 mg in sodium chloride 0.9 % 250 mL 300 mg, Intravenous, ONCE, 1 dose, On Mon02/14/20 at 1300, Administer over 30 Minutes, Administer over 30 minutes Order date: 12/27/2019, Dx: 1. Crohn's disease of colon with complication (HCC)Indications:Crohn's disease of colon with complication (HCC) IV Started 02/14/2020 1:22 PM EDT 300 mg 560 mL/hr documented in this encounter Discontinued Medications Medication Sig Discontinue Reason Start Date End Da te valGANciclovir (VALCYTE) 450 mg Oral Tablet Take 900 mg by mouth 2 times daily. DELETE-Therapy completed 02/14/2020 cholestyramine (QUESTRAN) 4 gram Oral Powder in Packet Take 1 Packet by mouth daily. DELETE-Therapy completed 12/07/2019 02/14/2020 documented as of this encounter Historical Medications * This list may reflect changes made after this encounter. ONDANSETRON ORAL Take 4 mg by mouth every 6 hours as needed for Nausea. 11/11/2020 PREVALITE 4 gram Oral Powder in Packet 01/22/2020 11/11/2020 added in this encounter Care Teams Shell Fisherman Relationship Specialty Start Date End Date Henry Dhaliwal DO [address] [place] [address] PCP - General Family Medicine 08/02/18 11/11/20 documented as of this encounter
--- OUTSIDE RECORDS SUMMARY | 2024-08-15 13:56 | XMS_ITS | Encounter Summary ---
Author Organization [place] [address] Care Team Providers Care Brass Pourer Name Role Phone Unavailable Primary Care Provider Unavailabl e Reason for Visit * Oncology Medication Prior Authorization (Routine) - Closed Specialty Diagnoses / Procedures Referred By Lata t Referred To Contact Oncology Diagnoses Crohn's disease of colon with complication (HCC) Procedures OR INJECTION, VEDOLIZUMAB Swapnil Avila MD [address] [place] [phone] Phone: tel: fax: [address] [address] Phone: tel: fax: Referral ID Status Reason Start Date Expiration Date Visits Re quested Visits Authorized [id number] Closed 10/09/2020 10/09/2021 99 99 Encounter Details Date Type Department Care Team (Latest Contact Info) Description 03/26/2021 11:00 AM EDT - 03/26/2021 11:59 PM EDT Hospital Encounter [address] [address] Crohn's disease of colon with complication [...] Sign Reading Time Taken Comments Blood Pressure 108/68 03/26/2021 11:17 AM EDT Pulse 71 03/26/2021 11:17 AM EDT Temperature 35.9 ??C (96.6 ??F) 03/26/2021 11:17 AM E DT Respiratory Rate 18 03/26/2021 11:17 AM EDT Oxygen Saturation - - Inhaled Oxygen Concentration - - Weight 57.9 kg (127 lb 9.6 oz) 03/26/2021 11:17 AM EDT Height - - Body Mass Index 23.34 02/04/2021 2:45 PM EDT documented in this [...] PM EST Office Visit [facility] [address] [facility] [place] [address] Swapnil Lopez MD [address] [place] [address] 10/21/2024 2:00 PM EST Appointment [facility] MRI [address] [place] [address] Jacky Shirley MD [address] [place] [address] CANCER [place], [place] [id number] 10/23/2024 1:45 PM EST Appointment [facility] [place] [place] [address] Olena Darby APRN [address] [place] [address] documented as of this encounter Goals Goal Patient Goal Type Associated Problems Recent Progress Patient-Stated? Author Maintain a healthy diet, exercise regularly and maintain an ideal body weight General No Linda Walden RMA documented as of this encounter Visit Diagnoses Diagnosis Crohn's disease of colon with complication (HCC)- Primary documented in this encounter Orders Medications Ordered That Paul ht Not Have Been Administered Count Last Ordered Date First Ordered Date 0.9 % NaCl infusion 1 03/26/2021 sodium chloride 0.9% syringe 1 03/26/2021 vedolizumab (ENTYVIO) 300 mg in sodium chloride 0.9 % 250 mL 1 03/26/2021 documented in this encounter
--- OUTSIDE RECORDS SUMMARY | 2024-08-15 13:56 | XMS_ITS | Encounter Summary ---
Author Organization [place] [address] Care Team Providers Care Project Manager Process Development Name Role Phone Henry Dhaliwal DO Primary Care Provider [phone] Reason for Visit * Oncology Medication Prior Authorization (Routine) - Closed Specialty Diagnoses / Procedures Referred By Lata t Referred To Contact Diagnoses Crohn's disease of colon with complication (HCC) Procedures . Swapnil Lopez MD [address] [place] [phone] Phone: tel: fax: [facility] [address] [facility] [place] [address] Phone: tel: fax: Referral ID Status Reason Start Date Expiration Date Visits Re quested Visits Authorized [id number] Closed 04/15/2020 04/15/2021 99 99 Encounter Details Date Type Department Care Team (Latest Contact Info) Description 08/20/2020 2:00 PM EST - 08/20/2020 11:59 PM EST Hospital Encounter [address] [place] [address] Crohn's disease of colon with [...] have Coronavirus / COVID-19? No / Unsure 08/20/2020 2:00 PM EST documented as of this encounter Last Filed Vital Signs Vital Sign Reading Time Taken Comments Blood Pressure 124/76 08/20/2020 2:51 PM EST Pulse 65 08/20/2020 2:51 PM EST Temperature 36.7 ??C (98 ??F) 08/20/2020 2:06 PM EST Respiratory Rate 18 08/20/2020 2:51 PM EST Oxygen Saturation - - Inhaled Oxygen Concentration - - Weight 55.1 kg (121 lb 6.4 oz) 08/20/2020 2:03 P M EST Height - - Body Mass Index 22.2 11/15/2019 9:22 AM EST documented in this [...] Patient Instructions - Suri Hubbard RN - 08/20/2020 2:00 PM EST [facility] Discharge Instructions Thank you for entrusting the [facility] with your care. We hope [...] - Monday 8:00 AM - 4:30 PM. [facility] [address] [address] [place], [place] [phone] [facility] Location [address] [place] [address] [phone] documented in this encounter Plan of Treatment Upcoming Encounters Date Type Department Care Team (Late st Contact Info) Description 09/11/2024 1:45 PM EST Office Visit [facility] [address] [facility], [place] [phone] Swapnil Lopez MD [address] [facility] [phone] 10/21/2024 2:00 PM EST Appointment [facility] [place] MRI [address] [place] [address] Jacky Shirley MD [address] [facility] [place], [place] [id number] 10/23/2024 1:45 PM EST Appointment [facility] [address] [place], [place] [id number] Olena Darby APRN [address] [place] [address] [place] [address] documented as of this encounter Goals Goal [...] MAR Action Action Date Dose Rate Site sodium chloride 0.9% syringe Intravenous, PRN, Starting on Ashlie 08/20/20 at 1403, Until 08/22/20 at 0407, Line Care, Flush after IV medication, Dx: 1. Crohn's disease of colon with complication (HCC)Indications:Crohn's disease of colon with complication (HCC) Given 08/20/2020 2:06 PM EST 10 mL vedolizumab (ENTYVIO) 300 mg in sodium chloride 0.9 % 250 mL 300 mg, Intravenous, EVERY 6 WEEKS, First dose on Ashlie 08/20/20 at 1415, Until Discontinued, Administer over 30 Minutes, Administer over 30 minutes Order Date: 04/14/2020, Dx: 1. Crohn's disease of colon with complication (HCC)Indications:Crohn's disease of colon with complication (HCC) IV Started 08/20/2020 2:20 PM EST 300 mg 560 mL/hr documented in this encounter Orders Medications Ordered That Paul ht Not Have Been Administered Count Last Ordered Date First Ordered Date 0.9 % NaCl infusion 1 08/20/2020 documented in this encounter Care Teams Project Manager Process Development Relationship Specialty Start Date End Date Henry Dhaliwal DO [address] [place] [address] PCP - General Family Medicine 08/02/18 11/11/20 documented as of this encounter
--- OUTSIDE RECORDS SUMMARY | 2024-08-15 13:56 | XMS_ITS | Encounter Summary ---
Author Organization [place] [address] Care Team Providers Care Excel Developer Name Role Phone Unavailable Primary Care Provider Unavailabl e Encounter Details Date Type Department Care Team (Latest Contact Info) Description 04/13/2021 1:25 PM EDT - 04/13/2021 11:59 PM EDT Hospital Encounter [facility] [address] [place] [address] Click, [facility] Crohn's disease of small and large intestines with complication (HCC) (Primary Dx); Diarrhea, unspecified type Discharge Disposition: Home or [...] Assessment Author No 09/05/2017 11:13 AM Gabby eD La Garza RMA * Because of a [...] EST Office Visit [facility] [address] [place] [address] Swapnil Lopez MD [address] [place] [address] 10/21/2024 2:00 PM EST Appointment [facility] [address] [place] [id number] Jacky Shirley MD 1 [facility] [place] [address] 10/23/2024 1:45 PM EST Appointment [facility] [address] [place], [place] [id number] Olena Darby APRN 1 [facility] [place], [place] [id number] documented as of this encounter Goals Goal Patient Goal Type Associated Problems Recent Progress Patient-Stated? Author Maintain a healthy diet, exercise regularly and maintain an ideal body weight General No Linda Walden, RMA documented as of this encounter Procedures Procedure Name Priority Date/Time Associated Diagnosis Comments CBC WITH DIFF Routine 04/13/2021 1:28 PM EDT Crohn's disease of small and large intestines with complication (HCC) Diarrhea, unspecified type C-REACTIVE PROTEIN Routine 04/13/2021 1: 28 PM EDT Crohn's disease of small and large intestines with complication (HCC) Diarrhea, unspecified type THYROID STIMULATING HORMONE Routine 04/13/2021 1:28 PM EDT Crohn's disease of small and large intestines with complication (HCC) Diarrhea, unspecified type COMPREHENSIVE METABOLIC PANEL Routine 04/13/2021 1:28 PM EDT Crohn's disease of small and large intestines with complication (HCC) Diarrhea, unspecified type documented in this encounter Results * THYROID STIMULATING HORMONE (04/13/2021 1:28 PM EDT) TSH 0.444 0.270 - 4.200 mcIU/mL 04/13/2021 9:04 PM EDT Get In, [employer] Blood VENOUS BLOOD / Unknown Venipuncture / Unknown 04/13/2021 1:28 PM EDT 04/13/2021 1:28 PM EDT Narrative [facility] - 04/13/2021 9:04 PM EDT Ingestion of shaheed doses of biotin (>5 mg/day) taken within 8 hours of drawing blood sample can interfere with this immunoassay test. Ge Omalley APRN CHEMISTRY ORDERABLES Final Res ult [facility] [address] [facility], [place] [address] * (ABNORMAL) COMPREHENSIVE METABOLIC PANEL (04/13/2021 1:28 PM EDT) Sodium 136 136 - 145 mmol/L 04/13/2021 9:04 PM EDT [facility] Potassium 3.5 3.5 - 5.0 mmol/L 04/13/2021 9:04 PM EDT [facility] Chloride 100 98 - 107 mmol/L 04/13/2021 9:04 PM EDT [facility] Total CO2 26 22 - 29 mmol/L 04/13/2021 9:04 PM EDT [facility] Anion Gap 10 7 - 16 mmol/L 04/13/2021 9:04 PM EDT [facility] Calcium 9.4 8.6 - 10.4 mg/dL 04/13/2021 9:04 PM EDT [facility] Glucose Lvl 116(H) 74 - 100 mg/dL 04/13/2021 9:04 PM EDT [facility] BUN 13 6 - 20 mg/dL 04/13/2021 9:04 PM EDT [facility] Creatinine 0.94 0.51 - 1.30 mg/dL 04/13/2021 9:04 PM EDT [facility] Albumin 3.8 3.5 - 5.2 gm/dL 04/13/2021 9:04 PM EDT [facility] Total Protein 6.5 6.4 - 8.3 gm/dL 04/13/2021 9:04 PM EDT [facility] Bili Total 0.5 0.1 - 1.3 mg/dL 04/13/2021 9:04 PM EDT [facility] ALT 9 <=41 U/L 04/13/2021 9:04 PM EDT [facility] AST 26 <=40 U/L 04/13/2021 9:04 PM EDT [facility], [facility] Alk Phos 114 36 - 123 U/L 04/13/2021 9:04 PM EDT [facility], [facility] GFR Afr Am 77 >=60 mL/min/1.7 3 m2 04/13/2021 9:04 PM EDT [facility] GFR Non Afr Am 67 >=60 mL/min/1.7 3 m2 04/13/2021 9:04 PM EDT [facility] Comment: This estimated GFR was calculated using CKD-EPI equation which is modified based on ethnicity for Non Americans and Americans. Both results are reported since it is not always possible to determine the patient's ethnicity. This equation should only be used for individuals 18 and older. It has not been validated for use with the elderly (>70 years), women, or in some racial or ethnic subgroups, such as Hispanics. The equation will be less accurate in people with differences in nutritional status or muscle mass. Blood VENOUS BLOOD / Unknown Venipuncture / Unknown 04/13/2021 1:28 PM EDT 04/13/2021 1:28 PM EDT Ge Omalley APRN CHEMISTRY ORDERABLES Final Res ult [facility], [address], [address] [place] [id number] [facility] [address] [place], [place] [id number] * (ABNORMAL) CBC WITH DIFF (04/13/2021 1:28 PM EDT) WBC 9.1 3.7 - 10.3 x10(3)/mcL 04/13/2021 6:50 PM EDT [facility], [facility] RBC 4.28 3.90 - 5.20 x10(6)/mcL 04/13/2021 6:50 PM EDT [facility], [facility] Hgb 11.8 11.2 - 15.7 g/dL 04/13/2021 6:50 PM EDT [facility], [facility] Hct 37.5 34.0 - 45.0 % 04/13/2021 6:50 PM EDT [facility] MCV 87.6 80.0 - 100.0 fL 04/13/2021 6:50 PM EDT [facility] MCH 27.6 26.0 - 34.0 pg 04/13/2021 6:50 PM EDT [facility] MCHC 31.5 30.7 - 35.5 g/dL 04/13/2021 6:50 PM EDT [facility] RDW 15.3(H) <=14.9 % 04/13/2021 6:50 PM EDT [facility] Platelet 236 155 - 369 x10(3)/mcL 04/13/2021 6:50 PM EDT [facility] MPV 9.4 8.8 - 12.5 fL 04/13/2021 6:50 PM EDT [facility] Neut Percent 76.9 % 04/13/2021 6:50 PM EDT [facility] Comment:Neutrophils equals s egs plus bands Imm Gran% 0.4 % 04/13/2021 6:50 PM EDT [facility] Comment:Automated count of m etamyelocytes, myelocytes and promyelocytes. Lymph Percent 11.6 % 04/13/2021 6:50 PM EDT [facility] [place] Percent 9.8 % 04/13/2021 6:50 PM EDT [facility] Eos Percent 1.1 % 04/13/2021 6:50 PM EDT [facility] Baso Percent 0.2 % 04/13/2021 6:50 PM EDT [facility] Neut # 7.0(H) 1.6 - 6.1 x10(3)/mcL 04/13/2021 6:50 PM EDT [facility] Comment:Neutrophils equals s egs plus bands IMMGRAN# 0.0 0.0 - 0.1 x10(3)/mcL 04/13/2021 6:50 PM EDT [facility] Comment:Automated count of m etamyelocytes, myelocytes and promyelocytes. An absolute IG <0.1 is reported as 0.0. Lymph # 1.1(L) 1.2 - 3.9 x10(3)/mcL 04/13/2021 6:50 PM EDT [facility] [place] # 0.9 0.3 - 0.9 x10(3)/mcL 04/13/2021 6:50 PM EDT [facility] Eos# 0.1 0.0 - 0.5 x10(3)/mcL 04/13/2021 6:50 PM EDT [facility] Baso # 0.0 0.0 - 0.1 x10(3)/mcL 04/13/2021 6:50 PM EDT [facility] Blood VENOUS BLOOD / Unknown Venipuncture / Unknown 04/13/2021 1:28 PM EDT 04/13/2021 1:28 PM EDT Ge Omalley APRN HEMATOLOGY ORDERABLES Final Re sult Performing Organization Address City/[facility]/ZIP Co de Phone Number [facility] [address] [facility] , [place] [address] * (ABNORMAL) C-REACTIVE PROTEIN (04/13/2021 1:28 PM EDT) CRP 18.41(H) <=5.00 mg/L 04/13/2021 9:04 PM EDT [facility] Blood VENOUS BLOOD / Unknown Venipuncture / Unknown 04/13/2021 1:28 PM EDT 04/13/2021 1:28 PM EDT Ge Omalley APRN CHEMISTRY ORDERABLES Final Res ult [facility] [employer], [facility] [address] [facility] , [place] [address] documented in this encounter Visit Diagnoses Diagnosis Crohn's disease of small and large intestines with complication (HCC)- Primary Diarrhea, unspecified type documented in this encounter
--- OUTSIDE RECORDS SUMMARY | 2024-08-15 13:56 | XMS_ITS | Encounter Summary ---
Author Organization [facility] [place] [address] Care Team Providers Care Classroom Aide Name Role Phone Henry Dhaliwal Primary Care Provider [phone] Encounter Details Date Type Department Care Team (Latest Contact Info) Description 02/14/2020 Travel Social History Tobacco Use Types Packs/Day [...] PM EST Office Visit [facility] [address] [place] [address] Swapnil Lopez MD [address] [place] [address] 10/21/2024 2:00 PM EST Appointment [facility] MRI [address] [place] [address] Jacky Shirley MD [address] [place] [address] [place], [place] [phone] 10/23/2024 1:45 PM EST Appointment [facility] [place] [address] Olena Darby APRN [address] [place] [address] [place], [place] [phone] documented as of this encounter Goals Goal Patient Goal Type Associated Problems Recent Progress Patient-Stated? Author Maintain a healthy diet, exercise regularly and maintain an ideal body weight General No Linda Walden RMA documented as of this encounter Visit Diagnoses Not on filedocumented in this encounter Care Teams Classroom Aide Relationship Specialty Start Date End Date Henry Dhaliwal DO [address] [place] [address] PCP - General Family Medicine 08/02/18 11/11/20 documented as of this encounter
--- OUTSIDE RECORDS SUMMARY | 2024-08-15 13:56 | XMS_ITS | Encounter Summary ---
Author Organization [facility] Address [address] [place] [address] Care Team Providers Care Certified Medicine Aide Name Role Phone Unavailable Primary Care Provider Unavailabl e Reason for Visit * Reason Onset Date Comments Follow-up 03/24/2021 Encounter Details Date Type Department Care Team (Late st Contact Info) Description 03/24/2021 [place] [address] Henry Lantigua MD Follow-up Social History Tobacco Use Types Packs/Day [...] encounter Miscellaneous Notes * Telephone Encounter - Rachana Mcdonald, Clerical Staff - 03/24/2021 2:41 PM EDT SHE CALLED IN TO RS HER SX, SHE IS RS'D TO 04/15 AMD THE CASE REQUEST HAS BEEN SENT TO [facility] documented in this encounter Plan of Treatment Upcoming Encounters Date Type Department Care Team (Late st Contact Info) Description 09/11/2024 1:45 PM EST Office Visit [facility] [address] [place] [address] Swapnil Lopez MD [address] [place] [address] 10/21/2024 2:00 PM EST Appointment [facility] [address] [facility] [place] [address] Jacky Shirley MD [address] [place] [address] [place] [address] 10/23/2024 1:45 PM EST Appointment [facility] [place] [address] Olena Darby APRN [address] [place] [address] [facility] [place] [address] documented as of this encounter Goals Goal Patient Goal Type Associated Problems Recent Progress Patient-Stated? Author Maintain a healthy diet, exercise regularly and maintain an ideal body weight General No Linda Walden, RMA documented as of this encounter Visit Diagnoses Diagnosis De Quervain's tenosynovitis, left- Primary Radial styloid tenosynovitis documented in this encounter
--- OUTSIDE RECORDS SUMMARY | 2024-08-15 13:56 | XMS_ITS | Encounter Summary ---
Author Organization [facility] [place] [address] Care Team Providers Care Lubrication Equipment Servicer Name Role Phone MadhuriHenry Primary Care Provider [phone] Encounter Details Date Type Department Care Team (Latest Contact Info) Description 08/20/2020 Travel Social History Tobacco Use Types Packs/Day [...] PM EST Office Visit [facility] [address] [place] [address] Swapnil Lopez MD [address] [place] [address] 10/21/2024 2:00 PM EST Appointment [facility] MRI [address] [place] [address] Jacky Shirley MD [address] [place] [address] [place]C[address] [place], [place] [id number] 10/23/2024 1:45 PM EST Appointment [facility] [place] [address] Olena Darby APRN [address] [place] [address] [place], [place] [id number] documented as of this encounter Goals Goal Patient Goal Type Associated Problems Recent Progress Patient-Stated? Author Maintain a healthy diet, exercise regularly and maintain an ideal body weight General No Linda Walden RMA documented as of this encounter Visit Diagnoses Not on filedocumented in this encounter Care Teams Lubrication Equipment Servicer Relationship Specialty Start Date End Date Henry Dhaliwal DO [address] [place] [address] PCP - General Family Medicine 08/02/18 11/11/20 documented as of this encounter
--- OUTSIDE RECORDS SUMMARY | 2024-08-15 13:56 | XMS_ITS | Encounter Summary ---
Author Organization [place] [address] Care Team Providers Care Charter Boat Captain Name Role Phone Henry Dhaliwal DO Primary Care Provider Reason for Visit * Oncology Medication Prior Authorization (Routine) - Closed Specialty Diagnoses / Procedures Referred By Lata t Referred To Contact Diagnoses Crohn's disease of colon with complication (HCC) Procedures . Swapnil Lopez MD [address] [place] [phone] Phone: tel: fax: [address] [place] [address] Phone: tel: fax: Referral ID Status Reason Start Date Expiration Date Visits Re quested Visits Authorized [id number] Closed 04/15/2020 04/15/2021 99 99 Encounter Details Date Type Department Care Team (Latest Contact Info) Description 05/22/2020 1:00 PM EDT - 05/22/2020 11:59 PM EDT Hospital Encounter [address] [place] [address] Crohn's disease of colon with [...] Sign Reading Time Taken Comments Blood Pressure 109/75 05/22/2020 2:22 PM EDT Pulse 63 05/22/2020 2:22 PM EDT Temperature 36.4 ??C (97.6 ??F) 05/22/2020 2:22 PM ED T Respiratory Rate 20 05/22/2020 2:22 PM EDT Oxygen Saturation - - Inhaled Oxygen Concentration - - Weight 54.3 kg (119 lb 12.8 oz) 05/22/2020 1:14 PM EDT Height - - Body Mass Index 21.91 11/15/2019 9:22 AM EST documented in this [...] encounter Miscellaneous Notes * Patient Instructions - Monica Rouse RN - 05/22/2020 1:00 PM EDT [facility] Discharge Instructions Thank you for entrusting the [facility] with your care. We hope you [...] - Monday 8:00 AM - 4:30 PM. [facility] [address] [place], [place] [address] [place] [id number] [facility] [address], [address] [place] [address] [place], [place] [phone] [facility] [address] [facility] [address] [facility]. [address] [id number] documented in this encounter Plan of Treatment Upcoming Encounters Date Type Department Care Team (Late st Contact Info) Description 09/11/2024 1:45 PM EST Office Visit [facility] [address] [facility] [place] [address] Swapnil Lopez MD [address] [place] [address] 10/21/2024 2:00 PM EST Appointment [facility] MRI [address] [place] [address] Jacky Shirley MD [address] [place] [address] [place], [place] [id number] 10/23/2024 1:45 PM EST Appointment [facility] [address] [place], [place] [phone] Olena Darby APRN [address] [place] [address] documented as of this encounter Goals Goal [...] Intravenous, at 30 mL/hr, CONTINUOUS, Starting on Mon05/22/20 at 1315, Until 05/23/20 at 1314, For tele grout sewer line repairer during infusion., Dx: 1. Crohn's disease of colon with complication (HCC)Indications:Crohn's disease of colon with complication (HCC) New Bag 05/22/2020 2:21 PM EDT 30 mL 300 mL/hr sodium chloride 0.9% syringe Intravenous, PRN, Starting on Mon05/22/20 at 1310, Until 05/24/20 at 0403, Line Care, Flush after IV medication, Dx: 1. Crohn's disease of colon with complication (HCC)Indications:Crohn's disease of colon with complication (HCC) Given 05/22/2020 1:45 PM EDT 10 mL vedolizumab (ENTYVIO) 300 mg in sodium chloride 0.9 % 250 mL 300 mg, Intravenous, EVERY 6 WEEKS, First dose on Mon05/22/20 at 1315, Until Discontinued, Administer over 30 Minutes, Administer over 30 minutes Order Date: 04/14/2020, Dx: 1. Crohn's disease of colon with complication (HCC)Indications:Crohn's disease of colon with complication (HCC) IV Started 05/22/2020 1:46 PM EDT 300 mg 560 mL/hr documented in this encounter Care Teams Charter Boat Captain Relationship Specialty Start Date End Date Henry Dhaliwal DO [address] [facility] [place] [address] PCP - General Family Medicine 08/02/18 11/11/20 documented as of this encounter
--- OUTSIDE RECORDS SUMMARY | 2024-08-15 13:57 | XMS_ITS | Encounter Summary ---
Author [place] [address] Care Team Providers Care Front End Application Developer Name Role Phone Henry Dhaliwal DO Primary Care Provider [phone] Reason for Visit * Reason Comments Anxiety Encounter Details Date Type Department Care Team (Late st Contact Info) Description 08/29/2018 2:00 PM EST Office Visit [facility] [address] [place] [address] Henry Dhaliwal, DO [address] [place] [address] Anxiety and depression (Primary Dx); Healthcare maintenance Social History Tobacco Use Types Packs/Day Years [...] Sign Reading Time Taken Comments Blood Pressure 104/80 08/29/2018 11:27 AM EST Pulse 98 08/29/2018 11:27 AM EST Temperature 36.8 ??C (98.3 ??F) 08/29/2018 11:[address] Respiratory Rate - - Oxygen Saturation 94% 08/29/2018 11:27 AM EST Inhaled Oxygen Concentration - - Weight 60.3 kg (133 lb) 08/29/2018 11:27 AM EST Height 157.5 cm (5' 2 ) 08/29/2018 11:27 AM EST Body Mass Index 24.33 08/29/2018 11:27 AM EST documented in this encounter Functional [...] Refills Last Filled Start Date End Date hydrOXYzine (VISTARIL) 25 mg Oral CapsuleIndications: Anxiety and depression Take 1 Cap by mouth 3 times daily as needed. 30 Cap 08/29/2018 11/07/2019 escitalopram oxalate (LEXAPRO) 10 mg Oral TabletIndications:A nxiety and depression Take 1 Tab by mouth daily. 30 Tab 11 08/29/2018 11/07/2019 documented in this encounter Progress Notes * Henry Dhaliwal DO - 08/29/2018 2:00 PM EST Vitals: 08/29/18 1127 BP: 104/80 Pulse: 98 Temp: 98.3 ??F (36.8 ??C) TempSrc: Oral SpO2: 94% Weight: 133 lb (60.3 kg) Height: 5' 2 (1.575 m) Chief Complaint Patient presents with ??? Anxiety Patient is here for a 1 month follow up for lexapro and hydroxyzine. She states they are helping. Denies side effects. She ran out on [employer] and has been feeling shaky since then. She says that since taking this medication her anxiety and depression are almost completely gone. She does not have any manic episodes. No suicidal or homicidal ideation. She feels that this medication is working great for her and would like to continue at the current dose. Review of Systems Constitutional: Negative for chills and fever. HENT: Negative for ear pain and voice change. Eyes: Negative for pain. Respiratory: Negative for shortness of breath. Cardiovascular: Negative for chest pain. Gastrointestinal: Negative for blood in stool, diarrhea, nausea and vomiting. Endocrine: Negative for polydipsia and polyphagia. Genitourinary: Negative for dysuria. Musculoskeletal: Negative for myalgias. Skin: Negative for rash and wound. Neurological: Negative for dizziness, seizures, weakness, light-headedness and numbness. Psychiatric/Behavioral: Negative for agitation and confusion. All other systems reviewed and are negative. Physical Exam Constitutional: She is oriented to person, place, and time. She appears well- developed and well-nourished. HENT: Head: Normocephalic and atraumatic. Eyes: Pupils are equal, round, and reactive to light. Neck: Normal range of motion. Neck supple. Cardiovascular: Normal rate and regular rhythm. Pulmonary/Chest: Effort normal and breath sounds normal. Abdominal: Soft. Bowel sounds are normal. Neurological: She is alert and oriented to person, place, and time. Skin: Skin is warm and dry. Psychiatric: She has a normal mood and affect. Nursing note and vitals reviewed. See time date stamps in the EMR for other pertient history components reviewed as part of today's encounter. [facility] Documentation Medication Compliance: Compliant all the time Understanding of Current Medications: Good Medication Compliance Barriers: None or N/A Self-Management Tools: N/A, no chronic conditions Self-Management Ability: Good Willingness to Adopt Healthy Behaviors: Good Potential Barriers to completing treatment plans today: No significant barriers [facility] Flowsheet was completed/reviewed as part of today's visit. Educated patient regarding the diagnosis, medication/treatment, goals, self- management tools and instructions based on their care plan. They verbalized understanding of the education given on the After Visit Summary [AVS] for today's visit. A copy of the AVS was provided either in writing and/or via [employer]. A new medicine was not prescribed on this visit. Assessment Diagnoses and all orders for this visit: Anxiety and depression - escitalopram oxalate (LEXAPRO) 10 mg Oral Tablet; Take 1 Tab by mouth daily. Dispense: 30 Tab; Refill: 11 - hydrOXYzine (VISTARIL) 25 mg Oral Capsule; Take 1 Cap by mouth 3 times daily as needed. Dispense:30 Cap; Refill: 0 Healthcare maintenance - CBC; Future - COMPREHENSIVE METABOLIC PANEL; Future - TSH REFLEX; Future - LIPID PANEL REFLEX; Future - HEPATITIS C ANTIBODY - SCREENING; Future Continue current therapy. Will reevaluate in 6 months. documented in this encounter Plan of Treatment Upcoming Encounters Date Type Department Care Team (Late st Contact Info) Description 09/11/2024 1:45 PM EST Office Visit [facility] [address] [place] [address] Swapnil Lopez MD [address] [place] [address] 10/21/2024 2:00 PM EST Appointment [facility] MRI [address] [place] [address] Jacky Shirley MD [address] [place] [address] [place] [address] 10/23/2024 1:45 PM EST Appointment [facility] [place] [address] Olena Darby APRN [address] [place] [address] [place] [address] Scheduled Orders Name Type Priority Associated Diagnoses Orde r Schedule CBC Lab Routine Healthcare maintenance 1 Occurrences starting 08/29/2018 until 08/29/2019 COMPREHENSIVE METABOLIC PANEL Lab Routine Healthcare maintenance 1 Occurrences starting 08/29/2018 until 08/29/2019 TSH REFLEX Lab Routine Healthcare maintenance 1 Occurrences starting 08/29/2018 until 08/29/2019 LIPID PANEL REFLEX Lab Routine Healthcare maintenance 1 Occurrences starting 08/29/2018 until 08/29/2019 HEPATITIS C ANTIBODY - SCREENING Lab Routine Healthcare maintenance 1 Occurrences starting 08/29/2018 until 08/29/2019 documented as of this encounter Goals Goal Patient Goal Type Associated Problems Recent Progress Patient-Stated? Author Maintain a healthy diet, exercise regularly and maintain an ideal body weight General No Linda Walden, RMA documented as of this encounter Visit Diagnoses Diagnosis Anxiety and depression- Primary Dysthymic disorder Healthcare maintenance Routine general medical examination at a health care facility documented in this encounter Discontinued Medications Medication Sig Discontinue Reason Start Date End Da te escitalopram oxalate (LEXAPRO) 10 mg Oral TabletIndications:Anxiety and depression,Depression, unspecified depression type Take 1 Tab by mouth daily. Cancelled by 07/24/2018 08/29/2018 documented as of this encounter Care Teams Front End Application Developer Relationship Specialty Start Date End Date Henry Dhaliwal DO [address] [facility] PCP - General Family Medicine 08/02/18 11/11/20 documented as of this encounter
--- OUTSIDE RECORDS SUMMARY | 2024-08-15 13:57 | XMS_ITS | Encounter Summary ---
Author Organization [place] [address] Care Team Providers Care Marine Pipefitter Name Role Phone Henry Dhaliwal DO Primary Care Provider [phone] Reason for Visit * Reason Onset Date Comments Other 11/15/2019 Encounter Details Date Type Department Care Team (Late st Contact Info) Description 11/15/2019 Telephone [facility] [address] [address] Michael Valenzuela MD [address] [place] [address] Other Social History Tobacco Use Types Packs/Day [...] encounter Miscellaneous Notes * Telephone Encounter - Fausto Holt LPN - 11/15/2019 4:07 PM EST Left a detailed a message advising pt we will not get these back before closing that it would be a few days but if she had any questions she could call us back. * Telephone Encounter - Kisha Obrien RN - 11/15/2019 4:06 PM EST Fausto, her stools are still pending. Doubtful we will have these prior to closing time. * Telephone Encounter - Unique Troncoso - 11/15/2019 4:03 PM EST Seen today. Was told to call before end of the day to check on bw and stool results, so that we canget her on appropriate steroids before the weekend. To control her diarrhea sxs. documented in this encounter Plan of Treatment Upcoming Encounters Date Type Department Care Team (Late st Contact Info) Description 09/11/2024 1:45 PM EST Office Visit [facility] [address] [place], [place] [id number] Swapnil Lopez MD [address] [place] [facility] [place] [address] 10/21/2024 2:00 PM EST Appointment [facility] MRI [address] [place], [place] [address] Jacky Shirley MD 1 [facility] [place], [place] [id number] 10/23/2024 1:45 PM EST Appointment [facility] [place], [place] [id number] Olena Darby APRN [address] [place] [address] [place] [address] documented as of this encounter Goals Goal Patient Goal Type Associated Problems Recent Progress Patient-Stated? Author Maintain a healthy diet, exercise regularly and maintain an ideal body weight General No Linda Walden G, RMA documented as of this encounter Visit Diagnoses Not on filedocumented in this encounter Additional Health Concerns Infection Onset Date Last Indicated Resolved Time R/O C-Diff 11/15/2019 11/15/2019 11/15/2019 11:2 9 PM EST documented as of this encounter Care Teams Marine Pipefitter Relationship Specialty Start Date End Date Henry Dhaliwal DO [address] [place] [address] PCP - General Family Medicine 08/02/18 11/11/20 documented as of this encounter
--- OUTSIDE RECORDS SUMMARY | 2024-08-15 13:57 | XMS_ITS | Encounter Summary ---
Author Organization [place] [address] Care Team Providers Care Monitoring Analyst Name Role Phone Henry Dhaliwal Primary Care Provider [phone] Encounter Details Date Type Department Care Team (Late st Contact Info) Description 12/31/2019 Orders Only [facility] [place] [address] Arabella Hewitt MA Social History Tobacco Use Types Packs/Day [...] have Coronavirus / COVID-19? No / Unsure 12/26/2019 2:50 PM EDT documented as of this encounter [...] PM EST Office Visit [facility] [address] [place] [address] Swapnil Lopez MD [address] [place] [address] 10/21/2024 2:00 PM EST Appointment [facility] MRI [address] [place] [address] Jacyk Shirley MD [address] [place] [address] [place] [address] 10/23/2024 1:45 PM EST Appointment [facility] [place] [address] Olena Darby APRN [address] [place] [address] documented as of this encounter Goals Goal Patient Goal Type Associated Problems Recent Progress Patient-Stated? Author Maintain a healthy diet, exercise regularly and maintain an ideal body weight General No Linda Walden RMA documented as of this encounter Visit Diagnoses Not on filedocumented in this encounter Care Teams Monitoring Analyst Relationship Specialty Start Date End Date Henry Dhaliwal DO [address] [place] [id number] PCP - General Family Medicine 08/02/18 11/11/20 documented as of this encounter
--- OUTSIDE RECORDS SUMMARY | 2024-08-15 13:57 | XMS_ITS | Encounter Summary ---
Author Organization [place] [address] Care Team Providers Care Social Science Teacher Name Role Phone Henry Dhaliwal Primary Care Provider [phone] Reason for Visit * Reason Onset Date Comments Other 11/14/2018 mammogram Encounter Details Date Type Department Care Team (Late st Contact Info) Description 11/14/2018 Telephone [facility] [address] [place] [address] Gabby Mercedes RMA [address] [place], [place] [id number] Other (mammogram) Social History Tobacco Use Types Packs/Day Years [...] Gabby RMA * Does this person have difficulty dressing or bathing? Answer Date of Assessment Author No 09/05/2017 11:13 AM EST Mercedes GabbySHANNON james * Because of a physical, mental or emotional condition, does this person have difficulty doing errands alone such as visiting a doctor's office or shopping? Answer Date of Assessment Author No 09/05/2017 11:13 AM EST Mercedes GabbySHANNON documented as of this encounter Mental Status * Because of a physical, mental or emotional condition, does this person have serious difficulty concentrating, remembering or making decisions? Answer Entry Date Author No 09/05/2017 11:13 AM EST Mercedes GabbySHANNON documented in this encounter Miscellaneous Notes * Telephone Encounter - Gabby Mercedes SHANNON - 11/14/2018 3:20 PM EST LM per [facility] advising patient that she is due for a mammogram. Mammogram Van will be at the office on12/03/18 from 9am-12pm. Please contact the office if you would like an order placed for this exam or need assistance scheduling. documented in this encounter Plan of Treatment Upcoming Encounters Date Type Department Care Team (Late st Contact Info) Description 09/11/2024 1:45 PM EST Office Visit [facility] [address] [place] [address] Swapnil Lopez MD [address] [place] [id number] 10/21/2024 2:00 PM EST Appointment [facility] MRI [address] [place] [address] Jacky Shirley MD [address] [place] [address] [place] [address] 10/23/2024 1:45 PM EST Appointment [facility] [address] [place], [place] [phone] Olena Darby APRN 1 [facility] [place], [place] [id number] documented as of this encounter Goals Goal Patient Goal Type Associated Problems Recent Progress Patient-Stated? Author Maintain a healthy diet, exercise regularly and maintain an ideal body weight General No Linda Walden, RMA documented as of this encounter Visit Diagnoses Not on filedocumented in this encounter Care Teams Social Science Teacher Relationship Specialty Start Date End Date Henry Dhaliwal DO [address] [place] [address] PCP - General Family Medicine 08/02/18 11/11/20 documented as of this encounter
--- OUTSIDE RECORDS SUMMARY | 2024-08-15 13:57 | XMS_ITS | Encounter Summary ---
Author Organization [place] [address] Care Team Providers Care Network Operations Manager Name Role Phone Henry Dhaliwal Primary Care Provider [phone] Reason for Referral * Consultation (Routine) - Closed Specialty Diagnoses / Procedures Referred By Lata deal Referred To Contact Gastroenterology Diagnoses Anal fistula Crohn's disease with complication, unspecified gastrointestinal tract location (HCC) Pino Bolivar MD [address] [place] [address] Phone: tel: fax: Referral ID Status Reason Start Date Expiration Date Visits Re quested Visits Authorized [id number] Closed 11/07/2019 11/06/2020 99 99 Question Answer Is this referral for colon cancer screening? No Provider Options First Available Comments Anal fistula, crohn's. Evaluate for possible biologic. Reason for Visit * Reason Comments Other Anal fistula Encounter Details Date Type Department Care Team (Latest Contact Info) Description 11/07/2019 9:15 AM EST Office Visit [facility] [place] [address] [place] [address] Pino Bolivar MD [address] [place] [address] [address] [place] [address] Anal fistula (Primary Dx); Crohn's disease with complication, unspecified gastrointestinal tract location (HCC) Social History Tobacco Use Types Packs/Day [...] - Inhaled Oxygen Concentration - - Weight 49.9 kg (110 lb) 11/07/2019 9:55 AM EST p er pt Height 157.5 cm (5' 2 ) 11/07/2019 9:55 AM EST Body Mass Index 20.12 11/07/2019 9:55 AM EST documented in this encounter Functional [...] documented in this encounter Progress Notes * Pino Bolivar MD - 11/07/2019 9:15 AM EST Subjective: We have been asked by Dr. Black to provide initial consultation on Marleni History of Present Illness The patient is a 59 y.o. female who presents with a complaint of anal fistula. Patient reports the fistula has been present for years . The area is tender drains purulent material; she also notes purulent drainage and air per vagina. Has known Crohn's disease, treated with prednisone, she has not attempted biologics. Reports 19 abdominal operations for complications of Crohn's, the last many years ago. She notes chronic abdominal pain and diarrhea. No recent colonoscopy. I have confirmed and addended the HPI and thus it represents my work HPI Past Medical History: Diagnosis Date ??? Anemia ??? Cancer (HCC) ??? Crohn disease (HCC) ??? Encounter for blood transfusion Patient Active Problem List Diagnosis Date Noted ??? Ulcer of great toe, left, with necrosis of muscle (HCC) 11/10/2017 ??? Crohn's disease of colon with complication (HCC) 11/10/2017 ??? Laceration of left great toe without foreign body present or damage to nail 11/10/2017 ??? Anxiety and depression 07/25/2017 ??? Food impaction of esophagus 06/25/2016 ??? Exacerbation of Crohn's disease (HCC) 04/02/2015 ??? Alcoholism (HCC) ??? Crohn's ??? History of stomach cancer ??? Depression Past Surgical History: Procedure Laterality Date ??? SECTION x2 ??? COLON SURGERY x11 crohns ??? COLOSTOMY ??? ILEOSTOMY OR JEJUNOSTOMY ??? UPPER GASTROINTESTINAL ENDOSCOPY N/A 06/25/2016 ESOPHAGOGASTRODUODENOSCOPY with biopsy with conscious sedation; Surgeon: Christopher Matthews MD PHD; Location: [facility]; Service: Endoscopy Family History Problem Relation Age of Onset ??? Heart Disease Father Social History Tobacco Use ??? Smoking status: Never Smoker ??? Smokeless tobacco: Never Used Substance Use Topics ??? Alcohol use: Yes Comment: vodka; states that she drank before coming today Outpatient Medications Marked as Taking for the 11/07/19 encounter (Office Visit) with Pino Bolivar MD Medication Sig Dispense Refill ??? diphenoxylate-atropine (LOMOTIL) 2.5-0.025 mg Oral Tablet ??? predniSONE (DELTASONE) 10 mg Oral Tablet Take by mouth 2 times daily. ??? sucralfate (CARAFATE) 1 gram Oral Tablet Take by mouth 4 times daily. ??? traMADol (ULTRAM) 50 mg Oral Tablet Allergies Allergen Reactions ??? Sulfa (Sulfonamide Antibiotics) Review of Systems Constitutional: Negative for chills and fever. Gastrointestinal: Negative for nausea and vomiting. All other systems reviewed and are negative. Objective: Vitals: 11/07/19 0955 Weight: 110 lb (49.9 kg) Height: 5' 2 (1.575 m) Body mass index is 20.12 kg/m??. Physical Exam Vitals signs reviewed. Exam conducted with a layer out plate glass present. Constitutional: Appearance: She is well-developed. HENT: Head: Normocephalic. Eyes: Pupils: Pupils are equal, round, and reactive to light. Neck: Musculoskeletal: Normal range of motion and neck supple. Cardiovascular: Rate and Rhythm: Normal rate and regular rhythm. Abdominal: General: Abdomen is flat. A surgical scar is present. Bowel sounds are normal. Palpations: Abdomen is soft. There is no mass. Tenderness: There is generalized abdominal tenderness. Hernia: No hernia is present. Comments: Left external fistula opening draining purulent material, palpable rectovaginal scar vs fistula Genitourinary: Exam position: Knee-chest position. Lymphadenopathy: Lower Body: No right inguinal adenopathy. No left inguinal adenopathy. Skin: General: Skin is warm and dry. Neurological: Mental Status: She is alert and oriented to person, place, and time. Psychiatric: Behavior: Behavior normal. Thought Content: Thought content normal. Assessment and Plan: Marleni was seen today for other. 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 No surgical intervention recommended at this time as this is best initially treated with biologics and limited surgery. Will place referral to GI for consideration of biologics. Return 1 month. Note written by Valery Mcmahon MA , acting as scribe for Pino Bolivar MD. ???I have reviewed this note and it accurately reflects my work and decisions made during this visit.?? Pino Bolivar MD documented in this encounter Miscellaneous Notes * Patient Instructions - Valery McmahonREGINE - 11/07/2019 9:15 AM EST Images from the original note were not included. Patient Education Anal Fistula An anal fistula is a hole that develops between the bowel and the skin near the anus. The anus allows stool (feces) to leave the body. The anus has many tiny glands that make lubricating fluid. Sometimes, these glands become plugged and infected. This can cause a fluid-filled pocket (abscess) to form. An anal fistula often occurs when an abscess becomes infected and then develops into a hole between the bowel and the skin. What are the causes? In most cases, an anal fistula is caused by a past or current buildup of pus around the anus (anal abscess). Other causes include: ?? A complication of surgery. ?? Injury to the rectum or the area around it. ?? Using high-energy beams (radiation) to treat the area around the rectum. What increases the risk? You are more likely to develop this condition if you have certain medical conditions or diseases, including: ?? Chronic inflammatory bowel disease, such as Crohn's disease or ulcerative colitis. ?? Colon cancer or rectal cancer. ?? Diverticular disease, such as diverticulitis. ?? A sexually transmitted infection, or STI, such as gonorrhea, chlamydia, or syphilis. ?? An infection that is caused by HIV. What are the signs or symptoms? Symptoms of this condition include: ?? Throbbing or constant pain that may be worse while you are sitting. ?? Swelling or irritation around the anus. ?? Pus or blood from an opening near the anus. ?? Pain when passing stool. ?? Fever or chills. How is this diagnosed? This condition is diagnosed based on: ?? A physical exam. This may include: ? An exam to find the external opening of the fistula. ? An exam with a probe or scope to help locate the internal opening of the fistula. ? An exam of the rectum with a gloved hand (digital rectal exam). ?? Imaging tests that use dye to find the exact location and path of the fistula. Tests may include: ? X-rays. ? Ultrasound. ? CT scan. ? MRI. ?? Other tests to find the cause of the anal fistula. How is this treated? This condition is most commonly treated with surgery. The type of surgery that is used will depend on where the fistula is located and how complex the fistula is. Surgery may include: ?? A fistulotomy. The whole fistula is opened up, and the contents are drained to promote healing. ?? Seton placement. A silk string (seton) is placed into the fistula during a fistulotomy. This helps to drain any infection and promote healing. ?? Advancement flap procedure. Tissue is removed from your rectum or the skin around the anus and attached to the opening of the fistula. ?? Bioprosthetic plug. A cone-shaped plug is made from your tissue and is used to block the openingof the fistula. Some anal fistulas do not require surgery. A nonsurgical treatment option involves injecting a fibrin glue to seal the fistula. You also may be prescribed an antibiotic medicine to treat any infection. Follow these instructions at home: Medicines ?? Take vljn-jgq-telogem and prescription medicines only as told by your health care provider. ?? If you were prescribed an antibiotic medicine, take it as told by your health care provider. Do not stop taking the antibiotic even if you start to feel better. ?? Use a stool softener or a laxative if told to do so by your health care provider. General instructions ?? Eat a high-fiber diet as told by your health care provider. This can help to prevent constipation. ?? Drink enough fluid to keep your urine pale yellow. ?? Take a warm sitz bath for 15-20 minutes, 3-4 times per day, or as told by your health care provider. Sitz baths can ease your pain and discomfort and help with healing. ?? Follow good hygiene to keep the anal area as clean and dry as possible. Use wet toilet paper or a moist towelette after each bowel movement. ?? Keep all follow-up visits as told by your health care provider. This is important. Contact a health care provider if you have: ?? Increased pain that is not controlled with medicines. ?? New redness or swelling around the anal area. ?? New fluid, blood, or pus coming from the anal area. ?? Tenderness or warmth around the anal area. Get help right away if you have: ?? A fever. ?? Severe pain. ?? Chills or diarrhea. ?? Severe problems urinating or having a bowel movement. Summary ?? An anal fistula is a hole that develops between the bowel and the skin near the anus. ?? This condition is most often caused by a buildup of pus around the anus (anal abscess). Other causes include a complication of surgery, an injury to the rectum, or the use of radiation to treat the rectal area. ?? This condition is most commonly treated with surgery. ?? Follow your health care provider's instructions about taking medicines, eating and drinking, or taking sitz baths. ?? Call your health care provider if you have more pain, swelling, or blood. Get help right away ifyou have fever, severe pain, or problems passing urine or stool. This information is not intended to replace advice given to you by your health care provider. Make sure you discuss any questions you have with your health care provider. Document Released: 08/31/2009 Document Revised: 02/01/2019 Document Reviewed: 02/01/2019 [employer] Patient Education ?? 2019 [employer] documented in this encounter Plan of Treatment Upcoming Encounters Date Type Department Care Team (Late st Contact Info) Description 09/11/2024 1:45 PM EST Office Visit [facility] [address] [place] [address] Swapnil Lopez MD [address] [place] [address] 10/21/2024 2:00 PM EST Appointment [facility] [address] [place] [address] Jacky Shirley MD [address] [place] [address] [place] [address] 10/23/2024 1:45 PM EST Appointment [facility] [place] [address] Olena Darby, REVENUE OFFICER [address] [facility] [address] Scheduled Referrals Name Type Priority Associated Diagnoses Orde r Schedule AMB REFERRAL TO GASTROENTEROLOGY Outpatient Referral Routine Anal fistula Crohn's disease with complication, unspecified gastrointestinal tract location (HCC) Ordered: 11/07/2019 documented as of this encounter Goals Goal Patient Goal Type Associated Problems Recent Progress Patient-Stated? Author Maintain a healthy diet, exercise regularly and maintain an ideal body weight General Linda Perez, SHANNON documented as of this encounter Visit Diagnoses Diagnosis Anal fistula- Primary Crohn's disease with complication, unspecified gastrointestinal tract location (HCC) documented in this encounter Discontinued Medications Medication Sig Discontinue Reason Start Date End Da te hydrOXYzine (VISTARIL) 25 mg Oral CapsuleIndications:Anxie ty and depression TAKE 1 CAPSULE BY MOUTH THREE TIMES DAILY NEEDED Formulary change 09/03/2018 11/07/2019 hydrOXYzine (VISTARIL) 25 mg Oral CapsuleIndications:Anxie ty and depression Take 1 Cap by mouth 3 times daily as needed. Formulary change 08/29/2018 11/07/2019 escitalopram oxalate (LEXAPRO) 10 mg Oral TabletIndications:Anxiet y and depression Take 1 Tab by mouth daily. Formulary change 08/29/2018 11/07/2019 documented as of this encounter Historical Medications * This list may reflect changes made after this encounter. sucralfate (CARAFATE) 1 gram Oral Tablet Take by mouth 4 times daily. 11/20/2019 predniSONE (DELTASONE) 10 mg Oral Tablet Take by mouth 2 times daily. 11/20/2019 traMADol (ULTRAM) 50 mg Oral Tablet 50 mg every 6 hours as needed. 10/18/2019 04/12/2022 diphenoxylate-atr opine (LOMOTIL) 2.5-0.025 mg Oral Tablet 11/02/2019 01/03/2020 added in this encounter Care Teams Network Operations Manager Relationship Specialty Start Date End Date Henry Dhaliwal DO [address] [place] [address] PCP - General Family Medicine 08/02/18 11/11/20 documented as of this encounter
--- OUTSIDE RECORDS SUMMARY | 2024-08-15 13:57 | XMS_ITS | Encounter Summary ---
Author Organization [place] [address] Care Team Providers Care Bead Worker Sewing Name Role Phone Henry Dhaliwal DO Primary Care Provider [phone] Reason for Visit * Reason Comments Medication Refill Encounter Details Date Type Department Care Team (Late st Contact Info) Description 09/03/2018 Refill [facility] [address] [place] [address] Henry Dhaliwal DO [address] [place] [address] Medication Refill Social History Tobacco Use Types [...] End Date hydrOXYzine (VISTARIL) 25 mg Oral CapsuleIndications :Anxiety and depression TAKE 1 CAPSULE BY MOUTH THREE TIMES DAILY NEEDED 30 Cap 3 09/03/2018 0 documented in this encounter Plan of Treatment Upcoming Encounters Date Type Department Care Team (Late st Contact Info) Description 09/11/2024 1:45 PM EST Office Visit [facility] [address] [place] [address] Swapnil Lopez MD [address] [place] [address] 10/21/2024 2:00 PM EST Appointment [facility] MRI [address] [place] [address] Jacky Shirley MD [address] [place] [address] [place] [address] 10/23/2024 1:45 PM EST Appointment [facility] [place] [address] Olena Darby APRN [address] [place] [address] [place] [address] documented as of this encounter Goals Goal Patient Goal Type Associated Problems Recent Progress Patient-Stated? Author Maintain a healthy diet, exercise regularly and maintain an ideal body weight General Linda Perez, A documented as of this encounter Visit Diagnoses Diagnosis Anxiety and depression Dysthymic disorder documented in this encounter Discontinued Medications Medication Sig Discontinue Reason Start Date End Da te hydrOXYzine (VISTARIL) 25 mg Oral CapsuleIndications:Anxiet y and depression Take 1 Cap by mouth 3 times daily as needed. Reorder 07/24/2018 09/03/2018 documented as of this encounter Care Teams Bead Worker Sewing Relationship Specialty Start Date End Date Henry Dhaliwal DO [address] [place] [address] PCP - General Family Medicine 08/02/18 11/11/20 documented as of this encounter
--- OUTSIDE RECORDS SUMMARY | 2024-08-15 13:57 | XMS_ITS | Encounter Summary ---
Author Organization [place] [address] Care Team Providers Care Cyanide Pot Hardener Name Role Phone Henry Dhaliwal Primary Care Provider [phone] Reason for Visit * Reason Onset Date Comments Schedule Appointment 12/05/2019 Encounter Details Date Type Department Care Team (Late st Contact Info) Description 12/05/2019 Telephone [facility] [place] [address] [place] [address] Hipolito Gregorio MD [address] [place] [address] [place] [address] Schedule Appointment Social History Tobacco Use Types [...] encounter Miscellaneous Notes * Telephone Encounter - Shreya Conteh - 12/05/2019 9:19 AM EST 12/02-Received referral and records from [facility]. Left message for patient to call back and schedule an appointment. 12/04-2nd message left for patient to call back and schedule. Records sent to [facility]. documented in this encounter Plan of Treatment Upcoming Encounters Date Type Department Care Team (Late st Contact Info) Description 09/11/2024 1:45 PM EST Office Visit [facility] [address] [place] [address] Swapnil Lopez MD [address] [place] [address] 10/21/2024 2:00 PM EST Appointment [facility] [address] [place] [address] Jacky Shirley MD [address] [place] [address] [place] [address] 10/23/2024 1:45 PM EST Appointment [facility] [place] [address] Olena Darby APRN [address] [place] [address] [place] [address] documented as of this encounter Goals Goal Patient Goal Type Associated Problems Recent Progress Patient-Stated? Author Maintain a healthy diet, exercise regularly and maintain an ideal body weight General No Linda Walden, RMA documented as of this encounter Visit Diagnoses Not on filedocumented in this encounter Care Teams Cyanide Pot Hardener Relationship Specialty Start Date End Date Henry Dhaliwal DO [address] [email or web address] [address] PCP - General Family Medicine 08/02/18 11/11/20 documented as of this encounter
--- OUTSIDE RECORDS SUMMARY | 2024-08-15 13:57 | XMS_ITS | Encounter Summary ---
Author Organization [place] [address] Care Team Providers Care Hydraulic Corrugating Machine Operator Name Role Phone Henry Dhaliwal DO Primary Care Provider [phone] Reason for Visit * Reason Onset Date Comments Central Order Completion Outreach 06/17/2019 mammogram Encounter Details Date Type Department Care Team (Late st Contact Info) Description 06/17/2019 Telephone [facility] [address] [place], [place] [id number] Henry Dhaliwal DO [address] [place] [address] Central Order Completion Outreach (mammogram) Social History Tobacco Use Types Packs/Day [...] encounter Miscellaneous Notes * Telephone Encounter - Li Figueroa RN - 06/28/2019 12:18 PM EDT Patient has been identified as overdue for mammo and has open orders in the chart. Patient was contacted and outcome of call was: No answer, 2nd attempt * Telephone Encounter - Rachel Cole RN - 06/17/2019 4:30 PM EDT Patient has been identified as overdue for mammogram and has open orders in the chart. Patient was contacted and outcome of call was: No answer, 1st attempt documented in this encounter Plan of Treatment Upcoming Encounters Date Type Department Care Team (Late st Contact Info) Description 09/11/2024 1:45 PM EST Office Visit [facility] [address] [facility] [place] [place] [place] [address] Swapnil Lopez MD [address] [place] [facility] [address] 10/21/2024 2:00 PM EST [facility] [address] [place] [address] Jacky Shirley MD [address] [facility] [place], [place] [id number] 10/23/2024 1:45 PM EST Appointment [facility] [place] [address] Olena Darby APRN [address] [place] [address] [place], [place] [id number] documented as of this encounter Goals Goal Patient Goal Type Associated Problems Recent Progress Patient-Stated? Author Maintain a healthy diet, exercise regularly and maintain an ideal body weight General No Linda Walden, RMA documented as of this encounter Visit Diagnoses Not on filedocumented in this encounter Care Teams Hydraulic Corrugating Machine Operator Relationship Specialty Start Date End Date Henry Dhaliwal DO [address] [place] [id number] PCP - General Family Medicine 08/02/18 11/11/20 documented as of this encounter
--- OUTSIDE RECORDS SUMMARY | 2024-08-15 13:57 | XMS_ITS | Encounter Summary ---
Author [place] [address] Care Team Providers Care Solvent Recoverer Name Role Phone Henry Dhaliwal Primary Care Provider [phone] Encounter Details Date Type Department Care Team (Late st Contact Info) Description 01/10/2020 Telephone [facility] [place] [id number] Monica Rouse RN Social History Tobacco Use [...] have Coronavirus / COVID-19? No / Unsure 01/03/2020 12:48 PM EDT documented as of this encounter [...] encounter Miscellaneous Notes * Telephone Encounter - Monica Rouse RN - 01/10/2020 11:01 AM EDT Left message for patient to call to reschedule appt on 01/17/20 documented in this encounter Plan of Treatment Upcoming Encounters Date Type Department Care Team (Late st Contact Info) Description 09/11/2024 1:45 PM EST Office Visit [facility] [address] [place] [address] Swapnil Lopez MD [address] [place] [address] 10/21/2024 2:00 PM EST Appointment [facility] MRI [address] [place] [address] Jacky Shirley MD [address] [place] [address] [place] [address] 10/23/2024 1:45 PM EST Appointment [place] [address] Olena Darby APRN [address] [place] [address] [place] [address] documented as of this encounter Goals Goal Patient Goal Type Associated Problems Recent Progress Patient-Stated? Author Maintain a healthy diet, exercise regularly and maintain an ideal body weight General No Linda Walden, RMA documented as of this encounter Visit Diagnoses Not on filedocumented in this encounter Care Teams Solvent Recoverer Relationship Specialty Start Date End Date Henry Dhaliwal DO [address] [place] [address] PCP - General Family Medicine 08/02/18 11/11/20 documented as of this encounter
--- OUTSIDE RECORDS SUMMARY | 2024-08-15 13:57 | XMS_ITS | Encounter Summary ---
Author Organization [facility] [place] [address] Care Team Providers Care Crm Developer Name Role Phone MadhuriHenry Primary Care Provider [phone] Encounter Details Date Type Department Care Team (Latest Contact Info) Description 01/02/2020 Travel Social History Tobacco Use Types Packs/Day [...] have Coronavirus / COVID-19? No / Unsure 01/02/2020 3:03 PM EDT documented as of this encounter [...] EST Office Visit [facility] [address] [place] [address] Swapnil Lopez MD [address] [place] [address] 10/21/2024 2:00 PM EST Appointment [facility] MRI [address] [place] [address] Jacky Shirley MD [address] [place] [address] [place], [place] [id number] 10/23/2024 1:45 PM EST Appointment [facility] [place] [address] Olena Darby APRN [address] [place] [address] [place], [place] [id number] documented as of this encounter Goals Goal Patient Goal Type Associated Problems Recent Progress Patient-Stated? Author Maintain a healthy diet, exercise regularly and maintain an ideal body weight General No Linda Walden RMA documented as of this encounter Visit Diagnoses Not on filedocumented in this encounter Care Teams Crm Developer Relationship Specialty Start Date End Date Henry Dhaliwal DO [address] [place] [address] PCP - General Family Medicine 08/02/18 11/11/20 documented as of this encounter
--- OUTSIDE RECORDS SUMMARY | 2024-08-15 13:57 | XMS_ITS | Encounter Summary ---
Author Organization [place] [address] Care Team Providers Care Control Operator Flow Coat Name Role Phone MadhuriHenry Jayant MARTEL Primary Care Provider [phone] Reason for Visit * Oncology Medication Prior Authorization (Routine) - Closed Specialty Diagnoses / Procedures Referred By Lata t Referred To Contact Diagnoses Crohn's disease of colon with complication (HCC) Procedures VA INJECTION, VEDOLIZUMAB Swapnil Lopez MD [address] [place] [id number] Phone: tel: fax: [address] [place] [address] Phone: tel: fax: Referral ID Status Reason Start Date Expiration Date Visits Re quested Visits Authorized [id number] Closed 12/31/2019 12/30/2020 1 1 Encounter Details Date Type Department Care Team (Latest Contact Info) Description 01/03/2020 12:50 PM EDT - 01/03/2020 11:59 PM EDT Hospital Encounter [address] [place] [address] Crohn's disease of colon with [...] Sign Reading Time Taken Comments Blood Pressure 112/69 01/03/2020 1:57 PM EDT Pulse 68 01/03/2020 1:57 PM EDT Temperature 36.5 ??C (97.7 ??F) 01/03/2020 1:57 PM ED T Respiratory Rate 18 01/03/2020 1:57 PM EDT Oxygen Saturation - - Inhaled Oxygen Concentration - - Weight 52.3 kg (115 lb 6.4 oz) 01/03/2020 12:56 PM EDT Height - - Body Mass Index 21.11 11/15/2019 9:22 AM EST documented in this [...] this encounter Medications at Time of Discharge ciprofloxacin HCl (CIPRO) 500 mg Oral Tablet Take 500 mg by mouth every 12 hours. 12/07/2019 01/06/2020 metroNIDAZOLE (FLAGYL) 500 mg Oral Tablet Take 500 mg by mouth 3 times daily. 12/07/2019 01/06/2020 traMADol (ULTRAM) 50 mg Oral Tablet 50 mg every 6 hours as needed. 10/18/2019 04/12/2022 documented as of this encounter Discharge Disposition Disposition Code Departure Means Destination Home or Self Care documented in this encounter Miscellaneous Notes * Patient Instructions - Monica Rouse RN - 01/03/2020 1:00 PM EDT [facility] Discharge Instructions Thank you for entrusting the [facility] with your care. We hope you are [...] - Monday 8:00 AM - 4:30 PM. [facility] [address] [id number] [phone] [facility] [address], [address] [place] [address] [facility] [address] [place] [address] [place] [address] documented in this encounter Plan of Treatment Upcoming Encounters Date Type Department Care Team (Late st Contact Info) Description 09/11/2024 1:45 PM EST Office Visit [facility] [address] [place] [address] Swapnil Lopez MD [address] [place] [address] 10/21/2024 2:00 PM EST Appointment [facility] [address] [place] [address] Jacky Shirley MD [address] [place] [address] [facility] [place] [id number] 10/23/2024 1:45 PM EST Appointment [facility] [address] [place], [place] [id number] Olena Darby APRN [address] [place] [address] [place], [place] [id number] documented as of this encounter Goals Goal [...] Intravenous, at 300 mL/hr, PRN, Starting on Mon01/03/20 at 1300, Until Mon01/05/20 at 0407, 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 Crohn's disease of colon with complication (HCC)Indications:Crohn's disease of colon with complication (HCC) New Bag 01/03/2020 1:55 PM EDT 30 mL 300 mL/hr sodium chloride 0.9% syringe 10 mL 10 mL, Intravenous, PRN, Starting on Mon01/03/20 at 1300, Until Mon01/05/20 at 0407, Line Care, For Venous Access Device care and maintenance., Dx: 1. Crohn's disease of colon with complication (HCC)Indications:Crohn's disease of colon with complication (HCC) Given 01/03/2020 1:10 PM EDT 10 mL vedolizumab (ENTYVIO) 300 mg in sodium chloride 0.9 % 250 mL 300 mg, Intravenous, ONCE, 1 dose, On Mon01/03/20 at 1315, Administer over 30 Minutes, Administer over 30 minutes Order date: 12/27/2019, Dx: 1. Crohn's disease of colon with complication (HCC)Indications:Crohn's disease of colon with complication (HCC) IV Started 01/03/2020 1:24 PM EDT 300 mg 560 mL/hr documented in this encounter Discontinued Medications Medication Sig Discontinue Reason Start Date End Da te diphenoxylate-atropine (LOMOTIL) 2.5-0.025 mg Oral Tablet Patient refused 11/02/2019 020 documented as of this encounter Historical Medications * This list may reflect changes made after this encounter. valGANciclovir (VALCYTE) 450 mg Oral Tablet Take 900 mg by mouth 2 times daily. 02/14/2020 metroNIDAZOLE (FLAGYL) 500 mg Oral Tablet Take 500 mg by mouth 3 times daily. 12/07/2019 01/06/2020 hydrocortisone (CORTEF) 5 mg Oral Tablet Take 5 mg by mouth daily. 12/07/2019 11/11/2020 ciprofloxacin HCl (CIPRO) 500 mg Oral Tablet Take 500 mg by mouth every 12 hours. 12/07/2019 01/06/2020 cholestyramine (QUESTRAN) 4 gram Oral Powder in Packet Take 1 Packet by mouth daily. 12/07/2019 02/14/2020 added in this encounter Care Teams Control Operator Flow Coat Relationship Specialty Start Date End Date Henry Dhaliwal DO [address] [place] [address] PCP - General Family Medicine 08/02/18 11/11/20 documented as of this encounter
--- OUTSIDE RECORDS SUMMARY | 2024-08-15 13:57 | XMS_ITS | Encounter Summary ---
Author Organization [place] [address] Care Team Providers Care Floral Clerk Name Role Phone Henry Dhaliwal Primary Care Provider [phone] Encounter Details Date Type Department Care Team (Late st Contact Info) Description 01/09/2020 Orders Only [facility] [place] [address] Monica Rouse RN Social History Tobacco Use [...] have Coronavirus / COVID-19? No / Unsure 01/15/2020 1:28 PM EDT documented as of this encounter [...] Description 09/11/2024 1:45 PM EST Office Visit [facility] [address] [place] [place] [address] Swapnil Lopez MD [address] [place] [address] 10/21/2024 2:00 PM EST Appointment [facility] MRI [address] [place] [address] Jacky Shirley MD [address] [place] [address] [place] [address] 10/23/2024 1:45 PM EST Appointment [facility] [place] [address] Olena Darby APRN [address] [place] [address] [place] [address] documented as of this encounter Goals Goal Patient Goal Type Associated Problems Recent Progress Patient-Stated? Author Maintain a healthy diet, exercise regularly and maintain an ideal body weight General No Linda Walden RMA documented as of this encounter Visit Diagnoses Not on filedocumented in this encounter Care Teams Floral Clerk Relationship Specialty Start Date End Date Henry Dhaliwal DO [address] [place] [id number] PCP - General Family Medicine 08/02/18 11/11/20 documented as of this encounter
--- OUTSIDE RECORDS SUMMARY | 2024-08-15 13:57 | XMS_ITS | Encounter Summary ---
Author Organization [place] [address] Care Team Providers Care Public Health Educator Name Role Phone MadhuriHenry Jayant MARTEL Primary Care Provider [phone] Reason for Visit * Reason Comments Crohn's Disease Diarrhea * Consultation (Routine) - Closed Specialty Diagnoses / Procedures Referred By Lata deal Referred To Contact Gastroenterology Diagnoses Anal fistula Crohn's disease with complication, unspecified gastrointestinal tract location (HCC) Pino Bolivar MD [address] [place] [address] Phone: tel: fax: Referral ID Status Reason Start Date Expiration Date Visits Re quested Visits Authorized [id number] Closed 11/07/2019 11/06/2020 99 [phone] Encounter Details Date Type Department Care Team (Late st Contact Info) Description 11/15/2019 9:20 AM EST Office Visit [facility] [address] [facility] [address] [place] [address] Michael Valenzuela MD [address] [place] [address] Diarrhea, unspecified type (Primary Dx); Lower abdominal pain Social History Tobacco Use Types Packs/Day Years [...] Sign Reading Time Taken Comments Blood Pressure 110/60 11/15/2019 9:22 AM EST Pulse - - Temperature - - Respiratory Rate - - Oxygen Saturation - - Inhaled Oxygen Concentration - - Weight 55.8 kg (123 lb) 11/15/2019 9:22 AM EST Height 157.5 cm (5' 2 ) 11/15/2019 9:22 AM EST Body Mass Index 22.5 11/15/2019 9:22 AM [...] documented in this encounter Progress Notes * Michael Valenzuela MD - 11/15/2019 9:20 AM EST [facility] Consult Note 11/15/2019 Primary Care Physician: Henry Dhaliwal, DO Reason for referral: Chief Complaint Patient presents with ??? Crohn's Disease ??? Diarrhea History of Presenting Illness Marleni Sy is a(n) 59 y.o. White or [1] female asked to see us in consultation by Henry Dhaliwal DO for evaluation of diarrhea. Patient was in tears during the entire visit today. She reports that she has been overwhelmed by her diarrhea and fecal incontinence. She wears depends all the time and that she had to stop 3 times to pass a bowel movement on her way to this office. She has multiple watery and nonbloody bowel movements per day. She has nocturnal symptoms. She has fecal incontinence. She also reports abdominal pain that is mainly in the lower abdomen. She denies any significant weight loss recently but she has not been able to eat because she is scared to worsen her diarrhea. Her diarrhea worsened in the past couple months and has been persistent for the past couple months. It appears that she was diagnosed with Crohn's disease as a young adult and she underwent multiple abdominal surgeries at [facility] more than 20 years ago. She has not seen a hog tender in over 20 years and she has not been on any treatment for her Crohn's. She was seen recently by Dr. 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 She has been managing her symptoms with Imodium and/or Lomotil on as-needed basis for now. Review of Systems: Review of Systems Constitutional: Negative for chills, fever, malaise/fatigue and weight loss. HENT: Negative for congestion, ear pain, nosebleeds and sore throat. Eyes: Negative for blurred vision and redness. Respiratory: Negative for hemoptysis and shortness of breath. Cardiovascular: Negative for chest pain and palpitations. Genitourinary: Negative for dysuria and hematuria. Musculoskeletal: Positive for back pain. Negative for falls, joint pain and myalgias. Skin: Negative for itching and rash. Neurological: Negative for dizziness, focal weakness and loss of consciousness. Endo/Heme/Allergies: Negative for polydipsia. Does not bruise/bleed easily. Psychiatric/Behavioral: Negative for depression. The patient is nervous/anxious. PMSH: Past Medical History: Diagnosis Date ??? Anemia ??? Cancer (HCC) ??? Crohn disease (HCC) ??? Encounter for blood transfusion Past Surgical History: Procedure Laterality Date ??? SECTION x2 ??? COLON SURGERY x11 crohns ??? COLOSTOMY ??? ILEOSTOMY OR JEJUNOSTOMY ??? UPPER GASTROINTESTINAL ENDOSCOPY N/A 06/25/2016 ESOPHAGOGASTRODUODENOSCOPY with biopsy with conscious sedation; Surgeon: Christopher Matthews MD PHD; Location: [facility]; Service: Endoscopy Medications Current Outpatient Medications Medication Sig Dispense Refill ??? diphenoxylate-atropine (LOMOTIL) 2.5-0.025 mg Oral Tablet ??? predniSONE (DELTASONE) 10 mg Oral Tablet Take by mouth 2 times daily. ??? sucralfate (CARAFATE) 1 gram Oral Tablet Take by mouth 4 times daily. ??? traMADol (ULTRAM) 50 mg Oral Tablet No current facility-administered medications for this visit. Allergy: Allergies Allergen Reactions ??? Sulfa (Sulfonamide Antibiotics) FMH: Family History Problem Relation Age of Onset ??? Heart Disease Father Social History: Social History Socioeconomic History ??? Marital status: [...] Substance and Sexual Activity ??? Alcohol use: Yes Comment: liane; states that she drank before coming today ??? Drug use: No ??? Sexual activity: Not on file Lifestyle ??? Physical activity: Days per week: Not on file Minutes per session: Not on file ??? Stress: Not on file Relationships ??? Social connections: Talks on phone: Not on file Gets together: Not on file Attends yazdanism service: Not on file Active member of [...] Social History Narrative ??? Not on file Physical Examination BP 110/60 (BP Location: Left arm, Patient Position: Sitting) Ht 5' 2 (1.575 m) Wt 123 lb (55.8kg) BMI 22.50 kg/m?? Physical Exam Constitutional: She is oriented to person, place, and time and well-developed, well-nourished, and in no distress. HENT: Head: Normocephalic and atraumatic. Mouth/Throat: Oropharynx is clear and moist. No oropharyngeal exudate. Eyes: No scleral icterus. Neck: Normal range of motion. No tracheal deviation present. No thyromegaly present. Cardiovascular: Normal rate and regular rhythm. Pulmonary/Chest: Effort normal. No respiratory distress. She has no wheezes. Abdominal: Soft. Bowel sounds are normal. She exhibits no distension. There is abdominal tenderness(lower). Multiple abdominal scars Musculoskeletal: General: No edema. Neurological: She is alert and oriented to person, place, and time. Skin: Skin is warm and dry. No rash noted. No erythema. Psychiatric: Mood and affect normal. Laboratory: Lab Results Component Value Date WBC 15.1 (H) 06/25/2016 HGB 13.8 06/25/2016 HCT 40.6 06/25/2016 MCV 84.0 06/25/2016 PLT 329 06/25/2016 Lab Results Component Value Date ALT 7 06/25/2016 AST 18 06/25/2016 GGT 71 (H) 06/25/2014 ALKPHOS 91 06/25/2016 BILIDIR 0.4 (H) 04/02/2015 PROT 8.6 (H) 06/25/2016 INR 1.17 (H) 06/25/2016 LIPASE 38 04/02/2015 Lab Results Component Value Date CREATININE 0.60 06/25/2016 BUN 24 (H) 06/25/2016 NA 141 06/25/2016 K 4.0 06/25/2016 CL 99 06/25/2016 CO2 22 06/25/2016 Lab Results Component Value Date INR 1.17 (H) 06/25/2016 Imaging: Results for orders placed during the hospital encounter of 04/02/15 CT ABDOMEN PELVIS W CONTRAST Narrative CLINICAL HISTORY: -ABDOMINAL PAIN. The patient has a history of Crohn's disease. COMPARISON: 08/22/2007. TECHNIQUE: CT ABDOMEN PELVIS W CONTRAST on Apr 02, 2015 05:12:45 AM. Oral contrast and 75 mL of intravenous Isovue-370 was administered. FINDINGS: ABDOMEN: The lung bases are clear. The visualized portions of the heart are normal. There is diffuse fatty infiltration of the liver. Gallstones are in the gallbladder. The spleen, pancreas, adrenal glands, and kidneys are normal. The caliber and wall thickness of the small bowel are normal. There are no enlarged abdominal lymph nodes or free fluid. The caliber of the aorta is normal. The spine is unremarkable. PELVIS: There is diffuse wall thickening of the rectum with evidence of a perianal fistula extending from the rectum towards the left gluteal region. A tract has been shown in this region on the prior study but inflammatory changes surround the tract on this examination which has enlarged from 2006. There is also focal wall thickening of a short segment of ascending colon. The appendix is not visualized and likely has been removed. There are no enlarged pelvic lymph nodes or free fluid. There is air within the vagina but no definite findings of a fistula. The urinary bladder is normal. The bony pelvis is unremarkable. Impression IMPRESSION: 1. Diffuse inflammation of the wall of the rectum with evidence of a left perianal fistula that extends from the rectum towards the left gluteal region. This fistula has enlarged from 2006 and correlation with physical examination is recommended. 2. Focal wall thickening of a short segment of the ascending colon could also represent the site of a Crohn's flare. 3. Incidental findings as described. No results found for this or any previous visit. ASSESSMENT AND PLAN Crohn's disease Complex delmi-anal fistula Diarrhea, unspecified type Lower abdominal pain - CBC WITH DIFF; Future - COMPREHENSIVE METABOLIC PANEL; Future - IRON/UIBC; Future - FERRITIN; Future - HEPATITIS B SURFACE ANTIGEN; Future - QUANTIFERON TB GOLD; Future - CALPROTECTIN, FECAL - REF LAB - C DIFF TOXIN DNA; Future - OVA AND PARASITE BASIC; Future She also needs a colonoscopy but patient declines having a colonoscopy at this point in time. Therefore, I will rule out infections and if she does not have any infection then I will start her on high-dose prednisone. I cannot start Biologics without a colonoscopy and tissue diagnosis and she understands this but she continues to decline colonoscopy. We agreed to obtain stool studies first and then we will discuss having a colonoscopy at that time. Return in about 4 weeks (around 12/13/2019). Thank you Henry Dhaliwal DO for asking me to see Marleni Sy in consultation Michael Sanchez MD [employer] Consult[employer] [facility] [phone] documented in this encounter Miscellaneous Notes * Patient Instructions - Fausto Holt LPN - 11/15/2019 9:20 AM EST You may be contacted by mail [...] PM EST Office Visit [facility] [address] [facility] [place] [address] Swapnil Lopez MD [address] [place] [address] 10/21/2024 2:00 PM EST Appointment [facility] MRI [address] [facility] [place] [address] Jacky Shirley MD [address] [place] [address] [place] [address] 10/23/2024 1:45 PM EST Appointment [facility] [place] [address] Olena Darby APRN [address] [place] [address] documented as of this encounter Goals Goal Patient Goal Type Associated Problems Recent Progress Patient-Stated? Author Maintain a healthy diet, exercise regularly and maintain an ideal body weight General No Linda Walden, RMA documented as of this encounter Procedures Procedure Name Priority Date/Time Associated Diagnosis Comments CALPROTECTIN, FECAL - REF LAB Routine 11/15/2019 12:14 PM EST Diarrhea, unspecified type Lower abdominal pain documented in this encounter Results * QUANTIFERON TB GOLD (11/15/2019 4:49 PM EST) Quantiferon-TB Gold in Tube Negative Negative, Indeterminate 11/19/2019 12:04 AM EST [facility] [employer], [facility] Quantiferon Mitogen minus NIL 9.02 IU/mL 11/19/2019 12:04 AM EST [facility] [employer], [facility] Quantiferon NIL 0.07 IU/mL 11/19/2019 12:04 AM EST [facility] [employer], [facility] QUANTIFERON TB1 MINUS NIL 0.00 IU/mL 11/19/2019 12:04 AM EST [facility] [employer], [facility] QUANTIFERON TB2 MINUS NIL 0.00 IU/mL 11/19/2019 12:04 AM EST [employer], [facility] Blood VENOUS BLOOD / Unknown Venipuncture / Unknown 11/15/2019 4:49 PM EST 11/15/2019 4:49 PM EST Narrative [facility] [employer], [facility] - 11/19/2019 12:04 AM EST Interferon gamma release is measured for patient specimens from each of four tubes. A qualitative result of Negative, Positive or Indeterminant is based on the interpretation of four [...] when interpreting QuantiFERON TB Gold results. us Michael Sanchez MD IMMUNOLOGY ORDERABLES Laurie l Result [employer], [employer] [address] [facility] , [place] [address] * HEPATITIS B SURFACE ANTIGEN (11/15/2019 4:46 PM EST) Pathologist [facility] Hep Bs Ag Non-Reactiv e Non-Reacti ve 11/15/2019 9:02 PM EST [facility] Blood Venipuncture / Unknown 11/15/2019 4:46 PM EST 11/15/2019 4:46 PM EST Michael Sanchez MD CHEMISTRY ORDERABLES Final Result [facility] [address] [facility] [facility] , [place] [address] * (ABNORMAL) COMPREHENSIVE METABOLIC PANEL (11/15/2019 4:44 PM EST) Pathologist [facility] Sodium 139 136 - 145 mmol/L 11/15/2019 7:40 PM EST [facility] Potassium 4.1 3.5 - 5.0 mmol/L 11/15/2019 7:40 PM EST [facility] Chloride 104 98 - 107 mmol/L 11/15/2019 7:40 PM EST [facility] Total CO2 25 22 - 29 mmol/L 11/15/2019 7:40 PM EST [facility] Anion Gap 10 7 - 16 mmol/L 11/15/2019 7:40 PM EST [facility] Calcium 9.4 8.6 - 10.4 mg/dL 11/15/2019 7:40 PM EST [facility] Glucose Lvl 106(H) 74 - 100 mg/dL 11/15/2019 7:40 PM EST [facility] BUN 16 6 - 20 mg/dL 11/15/2019 7:40 PM EST [facility] Creatinine 0.98 0.51 - 1.30 mg/dL 11/15/2019 7:40 PM EST [facility] Albumin 3.4(L) 3.5 - 5.2 gm/dL 11/15/2019 7:40 PM EST [facility] Total Protein 7.1 6.4 - 8.3 gm/dL 11/15/2019 7:40 PM EST [facility] Bili Total 0.2 0.1 - 1.3 mg/dL 11/15/2019 7:40 PM EST [facility] ALT 9 <=41 IU/L 11/15/2019 7:40 PM EST [facility] AST 10 <=40 IU/L 11/15/2019 7:40 PM EST [facility] Alk Phos 90 36 - 123 IU/L 11/15/2019 7:40 PM EST [facility] GFR Afr Am 74 >=60 mL/min/1.7 3 m2 11/15/2019 7:40 PM EST [facility] GFR Non Afr Am 64 >=60 mL/min/1.7 3 m2 11/15/2019 7:40 PM EST [facility] Comment: This estimated GFR was calculated using [...] VENOUS BLOOD / Unknown Venipuncture / Unknown 11/15/2019 4:44 PM EST 11/15/2019 4:44 PM EST us Michael Sanchez MD CHEMISTRY ORDERABLES Final Result [facility] [address] [facility] , [place] [address] [place] [address] * FERRITIN (11/15/2019 4:43 PM EST) [facility] Ferritin 77 13 - 150 ng/mL 11/15/2019 7:48 PM EST [facility] Blood Venipuncture / Unknown 11/15/2019 4:43 PM EST 11/15/2019 4:43 PM EST Narrative [facility] - 11/15/2019 7:48 PM EST Ingestion of shaheed doses of biotin (>5 mg/day) taken within 8 hours of drawing blood sample can interfere with this immunoassay test. Michael Sanchez MD CHEMISTRY ORDERABLES Final Result Performing Organization Address [facility] Co de Phone Number [facility] [employer], [facility] [address] [facility] , [address] [place] [phone] * (ABNORMAL) IRON/UIBC (11/15/2019 4:43 PM EST) Iron 19(L) 30 - 160 mcg/dL 11/15/2019 7:47 PM EST [facility] UIBC 234 112 - 347 mcg/dL 11/15/2019 7:47 PM EST [facility] Transferrin Sat 8(L) 20 - 50 % 0 7:47 PM EST [facility] Blood Venipuncture / Unknown 11/15/2019 4:43 PM EST 11/15/2019 4:43 PM EST Michael Sanchez MD CHEMISTRY ORDERABLES Final Result Performing Organization Address [facility] de Phone Number [facility] [employer], [facility] [address] [facility] , [place] [address] * (ABNORMAL) CBC WITH DIFF (11/15/2019 4:43 PM EST) WBC 13.5(H) 3.7 - 10.3 x10(3)/mcL 11/15/2019 7:11 PM EST [facility] RBC 4.84 3.90 - 5.20 x10(6)/mcL 11/15/2019 7:11 PM EST [facility] Hgb 11.3 11.2 - 15.7 g/dL 11/15/2019 7:11 PM EST [facility] Hct 38.7 34.0 - 45.0 % 11/15/2019 7:11 PM EST [facility] MCV 80.0 80.0 - 100.0 fL 11/15/2019 7:11 PM EST [facility] MCH 23.3(L) 26.0 - 34.0 pg 11/15/2019 7:11 PM EST [facility] MCHC 29.2(L) 30.7 - 35.5 g/dL 11/15/2019 7:11 PM EST [facility] RDW 16.0(H) <=14.9 % 11/15/2019 7:11 PM EST [facility] Platelet 475(H) 155 - 369 x10(3)/mcL 11/15/2019 7:11 PM EST [facility] MPV 9.3 8.8 - 12.5 fL 11/15/2019 7:11 PM EST [facility] Neut Percent 71.3 % 11/15/2019 7:11 PM EST [facility] Comment:Neutrophils equals s egs plus bands Imm Gran% 0.7 % 11/15/2019 7:11 PM EST [facility] Comment:Automated count of m etamyelocytes, myelocytes and promyelocytes. Lymph Percent 16.1 % 11/15/2019 7:11 PM EST [facility] [place] Percent 10.1 % 11/15/2019 7:11 PM EST [facility] Eos Percent 1.6 % 11/15/2019 7:11 PM EST [facility] Baso Percent 0.2 % 11/15/2019 7:11 PM EST [facility] Neut # 9.6(H) 1.6 - 6.1 x10(3)/mcL 11/15/2019 7:11 PM EST [facility] Comment:Neutrophils equals s egs plus bands IMMGRAN# 0.1 0.0 - 0.1 x10(3)/mcL 11/15/2019 7:11 PM EST [facility] Comment:Automated count of m etamyelocytes, myelocytes and promyelocytes. An absolute IG <0.1 is reported as 0.0. Lymph # 2.2 1.2 - 3.9 x10(3)/mcL 11/15/2019 7:11 PM EST [facility] [place] # 1.4(H) 0.3 - 0.9 x10(3)/mcL 11/15/2019 7:11 PM EST [facility] Eos# 0.2 0.0 - 0.5 x10(3)/mcL 11/15/2019 7:11 PM EST [facility] Baso # 0.0 0.0 - 0.1 x10(3)/mcL 11/15/2019 7:11 PM EST [facility] [employer], [facility] Blood Venipuncture / Unknown 11/15/2019 4:43 PM EST 11/15/2019 4:43 PM EST Michael Sanchez MD HEMATOLOGY ORDERABLES Laurie l Result Performing Organization Address City/[facility]/ZIP Co de Phone Number [address] , [place] [address] * OVA AND PARASITE BASIC (11/15/2019 12:14 PM EST) Pathologist [facility] Giardia Lamblia Antigen Not Detected Not detected 11/16/2019 12:59 PM EST [facility] Cryptosporidium Exam Not Detected Not Detected 11/16/2019 12:59 PM EST [facility] Stool 11/15/2019 12:1 4 PM EST 11/15/2019 12:14 PM EST Michael Sanchez MD MICROBIOLOGY - GENERAL ORD ERABLES Final Result Performing Organization Address [facility] Co de Phone Number [address] , [place] [address] * C DIFF TOXIN DNA (11/15/2019 12:14 PM EST) Pathologist [facility] C Diff Toxin DNA Negative Negative 11/15/2019 11:29 PM EST [facility] [employer], [facility] Stool 11/15/2019 12:1 4 PM EST 11/15/2019 12:14 PM EST Narrative [facility] [employer], [facility] - 11/15/2019 11:29 PM EST Toxin producing C. difficile target DNA sequences are not detected. This qualitative assay is intended for the detection of Clostridium difficile toxin B gene sequences and for presumptive identification of 027/NAP1/BI strains of toxigenic Clostridium difficile from unformed (liquid or soft) stool specimens in patients suspected of having Clostridium difficile infection (CDI). This assay utilizes real time PCR on the [employer] Infinity, and its performance has been verified by the [facility]. A negative result does not rule out the presence of the Clostridium difficile in concentrations below the limit of detection for the assay. us Michael Sanchez MD MICROBIOLOGY - GENERAL ORD ERABLES Final Result [facility] [address] [facility], [place] [address] * (ABNORMAL) CALPROTECTIN, FECAL - REF LAB (11/15/2019 12:14 PM EST) Calprotectin, Fecal 410(H) <=50 ug/g 11/19 10:56 AM EST [employer] Comment: Fecal Calprotectin is an indicator of the presence of neutrophils in stool and is not specific for IBD. Other intestinal ailments including GI infections and colorectal cancer can result in elevated concentrations of calprotectin. The diagnosis of IBD cannot be established solely on the basis of a positive calprotectin result. Patients with IBD fluctuate between active and inactive stages of disease. Calprotectin results may also fluctuate. GI bleeding of as much as 100 mL per day will increase the fecal calprotectin concentration by only 15 ug/g. INTERPRETIVE INFORMATION: Calprotectin, Fecal ??50 ug/g or less: Normal ??51-120 ug/g: Borderline elevated, test should be ??re-evaluated in 4-6 weeks. ??121 ug/g or greater: Abnormal Performed by [email or web address], [address] [place], [place] [id number] [email or web address], Weston Licea MD, Lab. Director Stool SPECIMEN FROM RECTUM / Unknown 11/15/2019 12:14 PM EST 11/15/2019 12:14 PM EST us Michael Sanchez MD BODY FLUIDS AND STOOLS ORD ERABLES Final Result Performing Organization Address City/[facility]/ZIP Co de Phone Number [employer] [address] [place] [address] documented in this encounter Visit Diagnoses Diagnosis Diarrhea, unspecified type- Primary Lower abdominal pain Abdominal pain, other specified site documented in this encounter Care Teams Public Health Educator Relationship Specialty Start Date End Date Henry Dhaliwal DO [address] [employer] [place] [id number] PCP - General Family Medicine 08/02/18 11/11/20 documented as of this encounter
--- OUTSIDE RECORDS SUMMARY | 2024-08-15 13:57 | XMS_ITS | Encounter Summary ---
Author Organization [place] Address [facility] [place] [address] Care Team Providers Care Wire Chief Name Role Phone Henry Dhaliwal Primary Care Provider [phone] Encounter Details Date Type Department Care Team (Latest Contact Info) Description 12/26/2019 2:50 PM EDT - 12/26/2019 2:59 PM EDT Hospital Encounter [facility] [place] Gastroesophageal reflux disease, esophagitis presence not specified (Primary Dx); Crohn's disease of small and large intestines with complication (HCC) Discharge Disposition: Home or Self Care [...] Author No 09/05/2017 11:13 AM Gabby De aL Garza RMA * Does this person have [...] Office Visit [facility] [address] [facility] [place] [address] Swapnil Lopez MD [address] [facility] [place] [address] 10/21/2024 2:00 PM EST Appointment [facility] [address] [place] [address] Jacky Shirley MD 1 [facility] [place] [address] 10/23/2024 1:45 PM EST Appointment [facility] [place] [place], [place] [id number] Olena Darby APRN 1 [facility] [place], [place] [id number] documented as of this encounter Goals Goal Patient Goal Type Associated Problems Recent Progress Patient-Stated? Author Maintain a healthy diet, exercise regularly and maintain an ideal body weight General No Linda Walden, RMA documented as of this encounter Procedures Procedure Name Priority Date/Time Associated Diagnosis Comments HISTOPLASMA ANTIGEN, URINE - REF LAB Callback 12/26/2019 3:31 PM EDT Gastroesophageal reflux disease, esophagitis presence not specified Crohn's disease of small and large intestines with complication (HCC) HCV ANTIBODY SCREEN W/ REFLEX Callback 12/26/2019 3:31 PM EDT Gastroesophageal reflux disease, esophagitis presence not specified Crohn's disease of small and large intestines with complication (HCC) HEPATITIS A ANTIBODY IGM ACUTE Callback 12/26/2019 3:31 PM EDT Gastroesophageal reflux disease, esophagitis presence not specified Crohn's disease of small and large intestines with complication (HCC) QUANTIFERON TB GOLD Callback 12/26/2019 3 :31 PM EDT Gastroesophageal reflux disease, esophagitis presence not specified Crohn's disease of small and large intestines with complication (HCC) documented in this encounter Results * HISTOPLASMA GALACT AG, URINE - REF LAB (12/26/2019 3:31 PM EDT) U Histoplasma Ag EIA Not Detected ng/mL 12/28/2019 1:15 PM EDT [employer] U Histoplasma Antigen Detectio Not Detected Not Detected 12/28/2019 1:15 PM EDT [employer] Comment: INTERPRETIVE DATA: Histoplasma Galactomannan [...] to aid in the diagnosis of histoplasmosis. Test developed and characteristics determined by [facility]. ??See Compliance Statement B: [employer] Performed by [facility], [address] [place] [address] [id number] [email or web address], Weston Licea MD, Lab. Director Urine URINE SPECIMEN COLLECTION / Unknown 12/26/2019 3:31 PM EDT 12/26/2019 3:31 PM EDT us Swapnil Lopez MD URINE ORDERABLES Final Result Performing Organization Address [facility]/ZIP Co de Phone Number [email or web address] [address] [place] [address] * HEPATITIS C ANTIBODY - SCREENING (12/26/2019 3:31 PM EDT) Hep C Ab Non-Reactiv e Non-Reacti ve 12/26/2019 5:41 PM EDT [facility]REFERRED [email or web address] Blood VENOUS BLOOD / Unknown Venipuncture / Unknown 12/26/2019 3:31 PM EDT 12/26/2019 3:31 PM EDT us Swapnil Lopez MD HEMATOLOGY ORDERABLES Final Re sult Performing Organization Address City/[facility]/ZIP Co de Phone Number PREFERRED [email or web address] [address] [place] [address] , [place] [address] * HEPATITIS A ANTIBODY IGM ACUTE (12/26/2019 3:31 PM EDT) Hep A IgM Non-Reactiv e Non-Reacti ve 12/26/2019 5:43 PM EDT PREFERRED [employer] [employer] Blood VENOUS BLOOD / Unknown Venipuncture / Unknown 12/26/2019 3:31 PM EDT 12/26/2019 3:31 PM EDT us Swapnil Lopez MD IMMUNOLOGY ORDERABLES Final Re sult PREFERRED [employer] [employer] [address] , [place] [address] * QUANTIFERON TB GOLD (12/26/2019 3:31 PM EDT) Pathologist [facility] Quantiferon-TB Gold in Tube Negative Negative, Indeterminate 12/29/2019 11:23 AM EDT PREFERRED LAB [facility] [employer] Quantiferon Mitogen minus NIL >10 IU/mL 12/29/2019 11:23 AM EDT [facility] [employer], [facility] Quantiferon NIL 0.06 IU/mL 12/29/2019 11:23 AM EDT [facility]REFERRED [facility] [employer] QUANTIFERON TB1 MINUS NIL 0.00 IU/mL 12/29/2019 11:23 AM EDT [facility] [employer] [employer] QUANTIFERON TB2 MINUS NIL -0.01 IU/mL 12/29/2019 11:23 AM EDT [facility] [employer] [employer] Blood VENOUS BLOOD / Unknown Venipuncture / Unknown 12/26/2019 3:31 PM EDT 12/26/2019 3:31 PM EDT Narrative [facility]REFERR[facility] [employer] [employer] - 12/29/2019 11:23 AM EDT Interferon gamma release is measured for [...] IMMUNOLOGY ORDERABLES Final Re sult [facility]REFERRED [facility] [address] , [place] [address] documented in this encounter Visit Diagnoses Diagnosis Gastroesophageal reflux disease, esophagitis presence not specified- Primary Crohn's disease of small and large intestines with complication (HCC) documented in this encounter Care Teams Wire Chief Relationship Specialty Start Date End Date Henry Dhaliwal DO [address] [place] [address] PCP - General Family Medicine 08/02/18 11/11/20 documented as of this encounter
--- OUTSIDE RECORDS SUMMARY | 2024-08-15 13:57 | XMS_ITS | Encounter Summary ---
Author [place] [address] Care Team Providers Care Unit Supervisor Name Role Phone Henry Dhaliwal DO Primary Care Provider [phone] Reason for Visit * Reason Onset Date Comments Other 07/09/2019 mammo letter Encounter Details Date Type Department Care Team (Late st Contact Info) Description 07/09/2019 Telephone [facility] [place] [address] [place] [address] Henry Dhaliwal DO [address] [place] [address] Other (mammo letter) Social History Tobacco Use Types Packs/Day Years [...] 09/05/2017 11:13 AM Gabby De La Garza, LUGena * Does this person have serious difficulty walking or climbing stairs? Answer Date of Assessment Author No 09/05/2017 11:13 AM EST Daren Gabby LUGena * Does this person have difficulty dressing or bathing? Answer Date of Assessment Author No 09/05/2017 11:13 AM EST Daren GabbySHANNON * Because of a physical, mental or emotional condition, does this person have difficulty doing errands alone such as visiting a doctor's office or shopping? Answer Date of Assessment Author No 09/05/2017 11:13 AM EST Gabby Mercedes LUGena documented as of this encounter Mental Status * Because of a physical, mental or emotional condition, does this person have serious difficulty concentrating, remembering or making decisions? Answer Entry Date Author No 09/05/2017 11:13 AM EST Gabby Mercedes LUGena documented in this encounter Miscellaneous Notes * Telephone Encounter - Gbaby Merecdes RMA - 07/09/2019 11:57 AM EDT Letter sent advising patient she is due for a mammogram. EB documented in this encounter Plan of Treatment Upcoming Encounters Date Type Department Care Team (Late st Contact Info) Description 09/11/2024 1:45 PM EST Office Visit [facility] [address] [place] [address] Swapnil Lopez MD [address] [place] [address] 10/21/2024 2:00 PM EST Appointment [facility] [address] [place] [address] Jacky Shirley MD [address] [place] [address] [facility] [place], [place] [id number] 10/23/2024 1:45 PM EST Appointment [place] [address] Olena Darby, DYNAMOMETER TUNER 1 [facility] [place], [place] [id number] documented as of this encounter Goals Goal Patient Goal Type Associated Problems Recent Progress Patient-Stated? Author Maintain a healthy diet, exercise regularly and maintain an ideal body weight General No Linda Walden, RMA documented as of this encounter Visit Diagnoses Not on filedocumented in this encounter Care Teams Unit Supervisor Relationship Specialty Start Date End Date Henry Dhaliwal DO [address] [place] [id number] PCP - General Family Medicine 08/02/18 11/11/20 documented as of this encounter
--- OUTSIDE RECORDS SUMMARY | 2024-08-15 13:57 | XMS_ITS | Encounter Summary ---
Author Organization [place] [address] Care Team Providers Care Interventional Nurse Name Role Phone Henry Dhaliwal Primary Care Provider [phone] Encounter Details Date Type Department Care Team (Latest Contact Info) Description 01/15/2020 Travel Social History Tobacco Use Types Packs/Day [...] PM EST Office Visit [facility] [address] [place] [address] Swapnil Lopez MD [address] [place] [address] 10/21/2024 2:00 PM EST Appointment [facility] MRI [address] [place] [address] Jacky Shirley MD [address] [place] [address] [place], [place] [id number] 10/23/2024 1:45 PM EST Appointment [facility] [place] [address] Olena Darby APRN [address] [place] [address] [place], [place] [id number] documented as of this encounter Goals Goal Patient Goal Type Associated Problems Recent Progress Patient-Stated? Author Maintain a healthy diet, exercise regularly and maintain an ideal body weight General No Linda Walden RMA documented as of this encounter Visit Diagnoses Not on filedocumented in this encounter Care Teams Interventional Nurse Relationship Specialty Start Date End Date Henry Dhaliwal DO [address] [place] [address] PCP - General Family Medicine 08/02/18 11/11/20 documented as of this encounter
--- OUTSIDE RECORDS SUMMARY | 2024-08-15 13:57 | XMS_ITS | Encounter Summary ---
Author Organization [facility] [place] [address] Care Team Providers Care Sole Leveler Machine Name Role Phone MadhuriHenry Jayant MARTEL Primary Care Provider [phone] Encounter Details Date Type Department Care Team (Latest Contact Info) Description 11/07/2019 Travel Social History Tobacco Use Types Packs/Day [...] PM EST Office Visit [facility] [address] [facility], [place] [id number] Swapnil Lopez MD [address] [id number] 10/21/2024 2:00 PM EST Appointment [facility] MRI [address] [facility] [place] [address] Jacky Shirley MD [address] [place] [address] [facility] [place], [place] [id number] 10/23/2024 1:45 PM EST Appointment [facility] [address] [address] [place], [place] [id number] Olena Darby APRN [address] [place] [address] [place] [address] documented as of this encounter Goals Goal Patient Goal Type Associated Problems Recent Progress Patient-Stated? Author Maintain a healthy diet, exercise regularly and maintain an ideal body weight General No Linda Walden RMA documented as of this encounter Visit Diagnoses Not on filedocumented in this encounter Care Teams Sole Leveler Machine Relationship Specialty Start Date End Date Henry Dhaliwal DO [address] [place] [address] PCP - General Family Medicine 08/02/18 11/11/20 documented as of this encounter
--- OUTSIDE RECORDS SUMMARY | 2024-08-15 13:57 | XMS_ITS | Encounter Summary ---
Author Organization [place] [address] Care Team Providers Care Freelance Graphic Designer Name Role Phone Henry Dhaliwal Primary Care Provider Encounter Details Date Type Department Care Team (Latest Contact Info) Description 11/15/2019 11:30 AM EST - 11/15/2019 11:59 PM [facility] Hospital Encounter [facility] [address] [place] [address] Diarrhea, unspecified type; Lower abdominal pain Discharge Disposition: Home or Self Care Social [...] this encounter Medications at Time of Discharge sucralfate (CARAFATE) 1 gram Oral Tablet Take by mouth 4 times daily. 11/20/2019 traMADol (ULTRAM) 50 mg Oral Tablet 50 mg every 6 hours as needed. 10/18/2019 04/12/2022 documented as of this encounter Discharge Disposition Disposition Code Departure Means Destination Home or Self Care documented in this encounter Plan of Treatment Upcoming Encounters Date Type Department Care Team (Late st Contact Info) Description 09/11/2024 1:45 PM EST Office Visit [facility] [address] [place] [address] Swapnil Lopez MD [address] [place] [address] 10/21/2024 2:00 PM EST Appointment [facility] [address] [facility] [address] [place] [address] Jacky Shirley MD [address] [place] [address] [place] [address] 10/23/2024 1:45 PM EST Appointment [facility] [place] [address] Olena Darby APRN [address] [place] [address] [place] [address] documented as of this encounter Goals Goal Patient Goal Type Associated Problems Recent Progress Patient-Stated? Author Maintain a healthy diet, exercise regularly and maintain an ideal body weight General No Linda Walden, RMA documented as of this encounter Procedures Procedure Name Priority Date/Time Associated Diagnosis Comments QUANTIFERON TB GOLD Routine 11/15/2019 4 :49 PM EST Diarrhea, unspecified type Lower abdominal pain HEPATITIS B SURFACE ANTIGEN Routine 11/15/2019 4:46 PM EST Diarrhea, unspecified type Lower abdominal pain COMPREHENSIVE METABOLIC PANEL Routine 11/15/2019 4:44 PM EST Diarrhea, unspecified type Lower abdominal pain IRON/UIBC Routine 11/15/2019 4:43 PM EST Diarrhea, unspecified type Lower abdominal pain CBC WITH DIFF Routine 11/15/2019 4:43 PM EST Diarrhea, unspecified type Lower abdominal pain FERRITIN Routine 11/15/2019 4:43 PM EST Diarrhea, unspecified type Lower abdominal pain C DIFF TOXIN DNA Routine 11/15/2019 12:1 4 PM EST Diarrhea, unspecified type Lower abdominal pain OVA AND PARASITE BASIC Routine 0 12:14 PM EST Diarrhea, unspecified type Lower abdominal pain documented in this encounter Results * QUANTIFERON TB GOLD (11/15/2019 4:49 PM EST) Quantiferon-TB Gold in Tube Negative Negative, Indeterminate 11/19/2019 12:04 AM EST [facility] Quantiferon Mitogen minus NIL 9.02 IU/mL 11/19/2019 12:04 AM EST [facility] Quantiferon NIL 0.07 IU/mL 11/19/2019 12:04 AM EST [facility] QUANTIFERON TB1 MINUS NIL 0.00 IU/mL 11/19/2019 12:04 AM EST [facility] QUANTIFERON TB2 MINUS NIL 0.00 IU/mL 11/19/2019 12:04 AM EST [facility] [employer] ([facility]: [place]) [facility] Blood VENOUS BLOOD / Unknown Venipuncture / Unknown 11/15/2019 4:49 PM EST 11/15/2019 4:49 PM EST Narrative [facility], [facility] - 11/19/2019 12:04 AM EST Interferon gamma [...] account when interpreting QuantiFERON TB Gold results. Michael Sanchez MD IMMUNOLOGY ORDERABLES Laurie l Result Performing Organization Address [facility] Co de Phone Number [facility] , [place] [address] * HEPATITIS B SURFACE ANTIGEN (11/15/2019 4:46 PM EST) [facility] Hep Bs Ag Non-Reactiv e Non-Reacti ve 11/15/2019 9:02 PM EST [facility] Blood Venipuncture / Unknown 11/15/2019 4:46 PM EST 11/15/2019 4:46 PM EST Michael Sanchez MD CHEMISTRY ORDERABLES Final Result Performing Organization Address [facility] Co de Phone Number [facility] , [place] [phone] * (ABNORMAL) COMPREHENSIVE METABOLIC PANEL (11/15/2019 4:44 PM EST) [facility] Sodium 139 136 - 145 mmol/L 11/15/2019 7:40 PM EST [facility] Potassium 4.1 3.5 - 5.0 mmol/L 11/15/2019 7:40 PM EST [facility] Chloride 104 98 - 107 mmol/L 11/15/2019 7:40 PM EST [facility] Total CO2 25 22 - 29 mmol/L 11/15/2019 7:40 PM EST [facility] Anion Gap 10 7 - 16 mmol/L 11/15/2019 7:40 PM EST [facility] Calcium 9.4 8.6 - 10.4 mg/dL 11/15/2019 7:40 PM EST [facility] Glucose Lvl 106(H) 74 - 100 mg/dL 11/15/2019 7:40 PM EST [facility] BUN 16 6 - 20 mg/dL 11/15/2019 7:40 PM EST [facility] Creatinine 0.98 0.51 - 1.30 mg/dL 11/15/2019 7:40 PM EST [facility] Albumin 3.4(L) 3.5 - 5.2 gm/dL 11/15/2019 7:40 PM EST [facility] Total Protein 7.1 6.4 - 8.3 gm/dL 11/15/2019 7:40 PM EST [facility] Bili Total 0.2 0.1 - 1.3 mg/dL 11/15/2019 7:40 PM EST [facility] ALT 9 <=41 IU/L 11/15/2019 7:40 PM EST [facility] AST 10 <=40 IU/L 11/15/2019 7:40 PM EST [facility] Alk Phos 90 36 - 123 IU/L 11/15/2019 7:40 PM EST [facility] GFR Afr Am 74 >=60 mL/min/1.7 3 m2 11/15/2019 7:40 PM EST [facility] GFR Non Afr Am 64 >=60 mL/min/1.7 3 m2 11/15/2019 7:40 PM EST [facility] Comment: This estimated GFR was calculated [...] 4:44 PM EST 11/15/2019 4:44 PM EST Michael Sanchez MD CHEMISTRY ORDERABLES Final Result Performing Organization Address [facility] de Phone Number [facility], [address] , [place] [address] [facility] [address] [place] [address] * (ABNORMAL) IRON/UIBC (11/15/2019 4:43 PM EST) [...] CHEMISTRY ORDERABLES Final Result Performing Organization Address [facility] de Phone Number [facility], [facility] [address] [facility] , [address] [place] [phone] * (ABNORMAL) CBC WITH DIFF (11/15/2019 4:43 PM EST) WBC 13.5(H) 3.7 - 10.3 x10(3)/mcL 11/15/2019 7:11 PM EST [facility] RBC 4.84 3.90 - 5.20 x10(6)/mcL 11/15/2019 7:11 PM EST [facility] Hgb 11.3 11.2 - 15.7 g/dL 11/15/2019 7:11 PM EST [facility] Hct 38.7 34.0 - 45.0 % 11/15/2019 7:11 PM EST [facility] MCV 80.0 80.0 - 100.0 fL 11/15/2019 7:11 PM EST [facility] MCH 23.3(L) 26.0 - 34.0 pg 11/15/2019 7:11 PM EST [facility] MCHC 29.2(L) 30.7 - 35.5 g/dL 11/15/2019 7:11 PM EST [facility] RDW 16.0(H) <=14.9 % 11/15/2019 7:11 PM EST [facility] Platelet 475(H) 155 - 369 x10(3)/mcL 11/15/2019 7:11 PM EST [facility] MPV 9.3 8.8 - 12.5 fL 11/15/2019 7:11 PM EST [facility] Neut Percent 71.3 % 11/15/2019 7:11 PM EST [facility] Comment:Neutrophils equals s egs plus bands Imm Gran% 0.7 % 11/15/2019 7:11 PM EST [facility] Comment:Automated count of m etamyelocytes, myelocytes and promyelocytes. Lymph Percent 16.1 % 11/15/2019 7:11 PM EST [facility] [place] Percent 10.1 % 11/15/2019 7:11 PM EST [facility] Eos Percent 1.6 % 11/15/2019 7:11 PM EST [facility] Baso Percent 0.2 % 11/15/2019 7:11 PM EST [facility] Neut # 9.6(H) 1.6 - 6.1 x10(3)/mcL 11/15/2019 7:11 PM EST [facility] Comment:Neutrophils equals s egs plus bands IMMGRAN# 0.1 0.0 - 0.1 x10(3)/mcL 11/15/2019 7:11 PM EST [facility] Comment:Automated count of m etamyelocytes, myelocytes and promyelocytes. An absolute IG <0.1 is reported as 0.0. Lymph # 2.2 1.2 - 3.9 x10(3)/mcL 11/15/2019 7:11 PM EST [facility] [place] # 1.4(H) 0.3 - 0.9 x10(3)/mcL 11/15/2019 7:11 PM EST [facility] Eos# 0.2 0.0 - 0.5 x10(3)/mcL 11/15/2019 7:11 PM EST [facility] Baso # 0.0 0.0 - 0.1 x10(3)/mcL 11/15/2019 7:11 PM EST [facility], [facility] Blood Venipuncture / Unknown 11/15/2019 4:43 PM EST 11/15/2019 4:43 PM EST Michael Sanchez MD HEMATOLOGY ORDERABLES Laurie l Result Performing Organization Address [facility] Co de Phone Number [facility] [address] [facility] , [place] [address] * FERRITIN (11/15/2019 4:43 PM EST) Pathologist [facility] Ferritin 77 13 - 150 ng/mL 11/15/2019 7:48 PM EST [facility], [facility] Blood Venipuncture / Unknown 11/15/2019 4:43 PM EST 11/15/2019 4:43 PM EST Narrative [facility], [facility] - 11/15/2019 7:48 PM EST Ingestion of shaheed doses of biotin (>5 mg/day) taken within 8 hours of drawing blood sample can interfere with this immunoassay test. Michael Sanchez MD CHEMISTRY ORDERABLES Final Result Performing Organization Address [facility] Co de Phone Number [address] , [place] [address] * OVA AND PARASITE BASIC (11/15/2019 12:14 PM EST) Pathologist [facility] Giardia Lamblia Antigen Not Detected Not detected 11/16/2019 12:59 PM EST [facility], [facility] Cryptosporidium Exam Not Detected Not Detected 11/16/2019 12:59 PM EST [facility] Stool 11/15/2019 12:1 4 PM EST 11/15/2019 12:14 PM EST Michael Sanchez MD MICROBIOLOGY - GENERAL ORD ERABLES Final Result Performing Organization Address [facility] Co de Phone Number [facility] [employer] ([facility]: [place]) [address] , [place] [address] * C DIFF TOXIN DNA (11/15/2019 12:14 PM EST) C Diff Toxin DNA Negative Negative 11/15/2019 11:29 PM EST [facility] [employer] ([facility]: [place]) [facility] Stool 11/15/2019 12:1 4 PM EST 11/15/2019 12:14 PM EST Narrative [facility] [employer] ([facility]: [place]) [facility] - 11/15/2019 11:29 PM EST Toxin producing [...] assay utilizes real time PCR on the [employer] Infinity, and its performance has been verified by the [facility]. A negative result does not rule out the presence of the Clostridium difficile in concentrations below the limit of detection for the assay. Michael Sanchez MD MICROBIOLOGY - GENERAL ORD ERABLES Final Result Performing Organization Address [facility] Co de Phone Number [facility] , [address] [place] [phone] documented in this encounter Visit Diagnoses Diagnosis Diarrhea, unspecified type Lower abdominal pain Abdominal pain, other specified site documented in this encounter Additional Health Concerns Infection Onset Date Last Indicated Resolved Time R/O C-Diff 11/15/2019 11/15/2019 11/15/2019 11:2 9 PM EST documented as of this encounter Care Teams Freelance Graphic Designer Relationship Specialty Start Date End Date Henry Dhaliwal DO [address] [place] [address] PCP - General Family Medicine 08/02/18 11/11/20 documented as of this encounter
--- OUTSIDE RECORDS SUMMARY | 2024-08-15 13:57 | XMS_ITS | Encounter Summary ---
Author Organization [place] [address] Care Team Providers Care Data Collection Associate Name Role Phone Henry Dhaliwal DO Primary Care Provider [phone] Reason for Visit * Reason Onset Date Comments Central Patient Navigator Outreach 11/06/2019 Encounter Details Date Type Department Care Team (Late st Contact Info) Description 11/06/2019 Patient Outreach SEP [facility] [address] [place], [place] [id number] Henry Dhaliwal DO [address] [place] [address] Central Patient Navigator Outreach Social History Tobacco [...] documented in this encounter Progress Notes * Rachel Cole RN - 11/19/2019 2:09 PM EST Patient Outreach: Care Gap Outreach Attempt Count: 2nd Care Gaps Addressed iron melter: Annual Wellness Visit, Appointment, Flu Visit, Mammogram and Colorectal Cancer Screening Outcome: Patient declined * Rachel Cole RN - 11/06/2019 4:47 PM EST Patient Outreach: Care Gap Outreach Attempt Count: 1st Care Gaps Addressed iron melter: Annual Wellness Visit, Appointment, Flu Visit, Mammogram and Colorectal Cancer Screening Outcome: Left message to return call at documented in this encounter Plan of Treatment Upcoming Encounters Date Type Department Care Team (Late st Contact Info) Description 09/11/2024 1:45 PM EST Office Visit [facility] [address] [facility] [address] Swapnil Lopez MD [address] [address] 10/21/2024 2:00 PM EST Appointment [facility] [address] [phone] Jacky Shirley MD 1 [facility]CER CARE [place], [place] [phone] 10/23/2024 1:45 PM EST Appointment [facility] [place] [address] Olena Darby APRN [address] [place] [address] [facility] [place], [place] [id number] documented as of this encounter Goals Goal [...] documented as of this encounter Care Teams Data Collection Associate Relationship Specialty Start Date End Date Henry Dhaliwal DO [address] [place] [id number] PCP - General Family Medicine 08/02/18 11/11/20 documented as of this encounter
--- OUTSIDE RECORDS SUMMARY | 2024-08-15 13:57 | XMS_ITS | Encounter Summary ---
Author Organization [place] [address] Care Team Providers Care Golf Club Facer Name Role Phone Henry Dhaliwal DO Primary Care Provider [phone] Encounter Details Date Type Department Care Team (Latest Contact Info) Description 12/26/2019 2:49 PM EDT Hospital Encounter [facility] [address] 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 No / Unsure 12/26/2019 2:49 PM EDT documented as of this encounter Functional Status * Is the person deaf or does he/she have serious difficulty hearing? Answer Date of Assessment Author No 09/05/2017 11:13 AM Gabby De L aGarza RMA * Is the person blind or [...] PM EST Office Visit [facility] [address] [facility] [place] [address] Swapnil Lopez MD [address] [place] [address] 10/21/2024 2:00 PM EST Appointment [facility] MRI [address] [place] [address] Jacky Shirley MD [address] [place] [address] [place] [address] 10/23/2024 1:45 PM EST Appointment [facility] [place] [address] Olena Darby APRN 1 [facility] [place] [address] documented as of this encounter Goals Goal Patient Goal Type Associated Problems Recent Progress Patient-Stated? Author Maintain a healthy diet, exercise regularly and maintain an ideal body weight General No Linda Walden, RMA documented as of this encounter Procedures Procedure Name Priority Date/Time Associated Diagnosis Comments XR CHEST PA AND LATERAL Routine 12/26/2019 3:06 PM EDT Gastroesophageal reflux disease, esophagitis presence not specified Crohn's disease of both small and large intestine with fistula (HCC) documented in this encounter Results * XR CHEST PA AND LATERAL (12/26/2019 3:06 PM EDT) Anatomical Region Laterality Modality Chest Radiographic Leora ging 12/26/2019 3:06 PM EDT Impressions 12/26/2019 3:13 PM EDT No acute finding. - Narrative 12/26/2019 3:13 PM EDT PA AND LATERAL CHEST X-RAY, ??12/26/2019 3:06 PM CLINICAL HISTORY: ??K21.2-Goqrkr-xqgebhpuxb reflux disease without fphttlupyvz-GQE-83-CM K50.813-Crohn's disease of both small and large intestine with rmthzsk-HEB-81-CM COMPARISON: ??2007 PROCEDURE COMMENTS: Frontal and lateral views of the chest. FINDINGS: Cardiovascular structures within normal limits. ??No pneumonia or effusion. ??No pneumothorax. Procedure Note Kelvin Mendez MD - 12/26/2019 PA AND LATERAL CHEST X-RAY, 12/26/2019 3:06 PM CLINICAL HISTORY: K21.5-Vjflyk-ffbsnxpslc reflux disease without dtleyhpotzf-WCR-77-CM K50.813-Crohn's disease of both small and large intestine qpjlhlmuyuz-SDB-53-CM COMPARISON: 2008 PROCEDURE COMMENTS: Frontal and lateral views of the chest. FINDINGS: Cardiovascular structures within normal limits. No pneumoniaor effusion. No pneumothorax. IMPRESSION: No acute finding. 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
--- OUTSIDE RECORDS SUMMARY | 2024-08-15 13:57 | XMS_ITS | Encounter Summary ---
Author [place] [address] Care Team Providers Care Car Wash Supervisor Name Role Phone Henry Dhaliwal DO Primary Care Provider [phone] Reason for Visit * Reason Onset Date Comments Schedule Appointment 11/08/2019 Encounter Details Date Type Department Care Team (Late st Contact Info) Description 11/08/2019 Telephone SEP Gen Surg [facility] [address] [facility] [address] [place] [phone] Pino Bolivar MD [address] [place] [address] [place] [address] Schedule Appointment Social History Tobacco Use Types [...] encounter Miscellaneous Notes * Telephone Encounter - Valery Mcmahon MA - 11/08/2019 9:29 AM EST Left voicemail for patient with the following appointment information. Appointment scheduled with MARINO Moran for Monday11/15/19 @ 9:20 AM. Address and phone number given. Follow up appointment made in [place] for 12/05/19 @ 9:15 AM. Patient was asked to contact the office to confirm receipt of the message. documented in this encounter Plan of Treatment Upcoming Encounters Date Type Department Care Team (Late st Contact Info) Description 09/11/2024 1:45 PM EST Office Visit [facility] [address] [place] [address] Swapnil Lopez MD [address] [address] 10/21/2024 2:00 PM EST Appointment [facility] MRI [address] [place] [address] Jacky Shirley MD [address] [place] [address] [place] [address] 10/23/2024 1:45 PM EST Appointment [facility] [address] Olena Darby APRN [address] [place] [address] [place] [address] documented as of this encounter Goals Goal Patient Goal Type Associated Problems Recent Progress Patient-Stated? Author Maintain a healthy diet, exercise regularly and maintain an ideal body weight General No Linda Walden, RMA documented as of this encounter Visit Diagnoses Not on filedocumented in this encounter Care Teams Car Wash Supervisor Relationship Specialty Start Date End Date Henry Dhaliwal DO [address] [place] [phone] PCP - General Family Medicine 08/02/18 11/11/20 documented as of this encounter
--- OUTSIDE RECORDS SUMMARY | 2024-08-15 13:57 | XMS_ITS | Encounter Summary ---
Author Organization [place] [address] Care Team Providers Care Fluid Jet Cutter Operator Name Role Phone Henry Dhaliwal Primary Care Provider [phone] Reason for Visit * Reason Onset Date Comments Results 11/15/2019 BW AND STOOL SPE CIMENS Encounter Details Date Type Department Care Team (Late st Contact Info) Description 11/15/2019 Telephone SEP Gastro CV [address] [facility] Building [address] [place] [phone] Michael Valenzuela MD [address] [place] [address] Results (BW AND STOOL SPECIMENS) Social History Tobacco Use Types Packs/Day Years [...] Encounter - Fausto Holt LPN - 11/15/2019 12:52 PM EST Noted. * Telephone Encounter - Yaa Lovelace, Clerical Staff - 11/15/2019 12:48 PM EST PT CALLING STATING SHE WENT AND HAD STOOL SPECIMENS AND BLOOD WORK DONE . documented in this encounter Plan of Treatment Upcoming Encounters Date Type Department Care Team (Late st Contact Info) Description 09/11/2024 1:45 PM EST Office Visit [facility] [address] [place] [address] Swapnil Lopez MD [address] [place] [address] 10/21/2024 2:00 PM EST Appointment [facility] [address] [place] [address] Jacky Shirley MD [address] [place] [address] [facility]CER CARE [place], [place] [id number] 10/23/2024 1:45 PM EST Appointment [facility] [place] [address] Olena Darby APRN [address] [place] [address] [place] [address] documented as of this encounter [...] documented as of this encounter Care Teams Fluid Jet Cutter Operator Relationship Specialty Start Date End Date Henry Dhaliwal DO [address] [place] [address] PCP - General Family Medicine 08/02/18 11/11/20 documented as of this encounter
--- OUTSIDE RECORDS SUMMARY | 2024-08-15 13:57 | XMS_ITS | Encounter Summary ---
Author Organization [place] [address] Care Team Providers Care Tank Truck Mechanic Name Role Phone Henry Dhaliwal Jayant MARTEL Primary Care Provider [phone] Reason for Visit * Reason Onset Date Comments Medication Management 11/20/2019 Encounter Details Date Type Department Care Team (Late st Contact Info) Description 11/20/2019 Telephone SEP Gastro [facility] [address] [address] Michael Valenzuela MD [address] [place] [address] Medication Management Social History Tobacco Use Types [...] Refills Last Filled Start Date End Date sucralfate (CARAFATE) 100 mg/mL Oral SuspensionIndicatio ns:History of stomach cancer Take 10 mL by mouth 4 times daily for 30 days. 1200 mL 11/20/2019 12/20/2019 predniSONE (DELTASONE) 20 mg Oral TabletIndications:D iarrhea, unspecified type Take 2 Tabs by mouth daily for 14 days, THEN 0.5 Tabs daily for 7 days. 32 Tab 11/20/2019 12/11/2019 documented in this encounter Miscellaneous Notes * Telephone Encounter - Fausto Holt LPN - 11/20/2019 12:30 PM EST S/w pt who agreed she would schedule colonoscopy. Prednisone ordered per Dr. ROSA order. Pt also requested that Carafate be switched to liquid due to having difficulty swallowing the tablets. * Telephone Encounter - Fausto Holt LPN - 11/20/2019 12:27 PM EST ----- Message from Michael Sanchez MD sent at 11/20/2019 11:36 AM EST ----- We can send prednisone if she agrees to schedule a colonoscopy. Without colonoscopy we cannot confirm the diagnosis nor plan for technician terminal and repeater treatment. If she agrees to the colonoscopy we can send her prednisone 40 mg once daily for 2 weeks followed by 10 mg taper per week. documented in this encounter Plan of Treatment Upcoming Encounters Date Type Department Care Team (Late st Contact Info) Description 09/11/2024 1:45 PM EST Office Visit [facility] [address] [place] [facility] [place] [address] Swapnil Lopez MD [address] [place] [facility] [place] [address] 10/21/2024 2:00 PM EST Appointment [facility] MRI [address] [place], [place] [id number] Jacky Shirley MD 1 [facility] [place] [address] 10/23/2024 1:45 PM EST Appointment [facility] [place] [address] Olena Darby APRN [address] [place] [address] [id number] documented as of this encounter Goals Goal Patient Goal Type Associated Problems Recent Progress Patient-Stated? Author Maintain a healthy diet, exercise regularly and maintain an ideal body weight General No Linda Walden, SHANNON documented as of this encounter Visit Diagnoses Diagnosis Diarrhea, unspecified type- Primary History of stomach cancer Personal history of malignant neoplasm of stomach documented in this encounter Discontinued Medications Medication Sig Discontinue Reason Start Date End Da te predniSONE (DELTASONE) 10 mg Oral Tablet Take by mouth 2 times daily. Dose adjustment 11/20/2019 sucralfate (CARAFATE) 1 gram Oral Tablet Take by mouth 4 times daily. Stopped by patient - ineffective 11/20/2019 documented as of this encounter Care Teams Tank Truck Mechanic Relationship Specialty Start Date End Date Henry Dhaliwal DO [address] [place] [address] PCP - General Family Medicine 08/02/18 11/11/20 documented as of this encounter
--- OUTSIDE RECORDS SUMMARY | 2024-08-15 13:57 | XMS_ITS | Encounter Summary ---
Author Organization [facility] [place] [address] Care Team Providers Care Bridal Stylist Sales Consultant Name Role Phone MadhuriHenry Jayant MARTEL Primary Care Provider [phone] Encounter Details Date Type Department Care Team (Latest Contact Info) Description 11/15/2019 Travel Social History Tobacco Use Types Packs/Day [...] PM EST Office Visit [facility] [address] [place] [address] Swapnil Lopez MD [address] [place] [address] 10/21/2024 2:00 PM EST Appointment [facility] MRI [address] [place], [place] [id number] Jacky Shirley MD [address] [place] [address] [facility] [place], [place] [id number] 10/23/2024 1:45 PM EST Appointment [facility] [place], [place] [id number] Olena Darby APRN [address] [place] [address] [place], [place] [id number] documented as of this encounter Goals Goal [...] documented as of this encounter Care Teams Bridal Stylist Sales Consultant Relationship Specialty Start Date End Date Henry Dhaliwal DO [address] [place] [address] PCP - General Family Medicine 08/02/18 11/11/20 documented as of this encounter
--- OUTSIDE RECORDS SUMMARY | 2024-08-15 13:57 | XMS_ITS | Encounter Summary ---
Author Organization [place] [address] Care Team Providers Care Clipper And [place] Name Role Phone MadhuriHenry Jayant MARTEL Primary Care Provider [phone] Reason for Referral * Vascular Imaging (Emergency) - Closed Specialty Diagnoses / Procedures Referred By Contac t Referred To Contact Radiology Diagnoses Pain in right leg Procedures [facility] LOWER EXTREMITY VENOUS RIGHT Swapnil Lopez MD [address] [place] [address] Phone: tel: fax: Referral ID Status Reason Start Date Expiration Date Visits Re quested Visits Authorized [id number] Closed 12/26/2019 12/25/2021 1 1 Reason for Visit * Vascular Imaging (Emergency) - Closed Specialty Diagnoses / Procedures Referred By Contac t Referred To Contact Radiology Diagnoses Pain in right leg Procedures [facility] LOWER EXTREMITY VENOUS RIGHT Swapnil Lopez MD [address] [place] [address] Phone: tel: fax: Referral ID Status Reason Start Date Expiration Date Visits Re quested Visits Authorized [id number] Closed 12/26/2019 12/25/2021 1 1 Encounter Details Date Type Department Care Team (Latest Contact Info) Description 12/26/2019 3:00 PM EDT - 12/26/2019 11:59 PM EDT Hospital Encounter [facility] [place] [address] Swapnil Lopez MD [address] [place] [address] Pain in right leg Discharge Disposition: Home or Self Care Social [...] PM EST Office Visit [facility] [address] [place] [facility] [address] Swapnil Lopez MD [address] [place] [address] 10/21/2024 2:00 PM EST Appointment [facility] MRI [address] [place] [address] Jacky Shirley MD [address] [place] [address] [place] [address] 10/23/2024 1:45 PM EST Appointment [facility] [place] [address] Olena Darby APRN [address] [place] [address] [place] [address] documented as of this encounter Goals Goal Patient Goal Type Associated Problems Recent Progress Patient-Stated? Author Maintain a healthy diet, exercise regularly and maintain an ideal body weight General No Linda Walden RMA documented as of this encounter Procedures Procedure Name Priority Date/Time Associated Diagnosis Comments [facility] LOWER EXTREMITY VENOUS RIGHT STAT 12/26/2019 4:25 PM EDT Pain in right leg documented in this encounter Results * [facility] LOWER EXTREMITY VENOUS RIGHT (12/26/2019 4:25 PM EDT) Anatomical Region Laterality Modality Vascular, Thigh, Leg Vascular Im aging 12/26/2019 3:38 PM EDT Impressions 12/27/2019 9:38 AM EDT ??CONCLUSIONS ??Superficial thrombus involving the right GSV. ??No evidence of deep vein thrombosis identified in the right lower extremity. ?No evidence of thrombosis is noted in the contralateral left common femoral vein. ?? Narrative Procedure Note Srinath Pinzon, - 12/27/2019 IMPRESSION CONCLUSIONS Superficial thrombus involving the right GSV. No evidence of deep vein thrombosis identified in the right lowerextremity. No evidence of thrombosis is noted in the contralateral left commonfemoral vein. Swapnil Lopez MD IMG VASCULAR ORDERABLES Final Result documented in this encounter Visit Diagnoses Diagnosis Pain in right leg documented in this encounter Care Teams Clipper And [place] Relationship Specialty Start Date End Date Henry Dhaliwal DO [address] [place] [address] PCP - General Family Medicine 08/02/18 11/11/20 documented as of this encounter
--- OUTSIDE RECORDS SUMMARY | 2024-08-15 13:57 | XMS_ITS | Encounter Summary ---
Author Organization [place] [address] Care Team Providers Care Guest Relations Coordinator Name Role Phone Henry Dhaliwal Primary Care Provider [phone] Encounter Details Date Type Department Care Team (Late st Contact Info) Description 01/09/2020 Telephone [facility] [place] [id number] Monica Rouse RN Social History Tobacco Use [...] Telephone Encounter - Monica Rouse RN - 01/09/2020 3:14 PM EDT Requested that patient call in to reschedule appt on 01/17/20 documented in this encounter Plan of Treatment Upcoming Encounters Date Type Department Care Team (Late st Contact Info) Description 09/11/2024 1:45 PM EST Office Visit [facility] [address] [place] [address] Swapnil Lopez MD [address] [place] [address] 10/21/2024 2:00 PM EST Appointment [facility] MRI [address] [place] [address] Jacky Shirley MD [address] [place] [address] [place] [address] 10/23/2024 1:45 PM EST Appointment [place] [address] Olena Darby, BOOSTER ASSEMBLER 1 [facility] [place] [address] documented as of this encounter Goals Goal Patient Goal Type Associated Problems Recent Progress Patient-Stated? Author Maintain a healthy diet, exercise regularly and maintain an ideal body weight General No Linda Walden, RMA documented as of this encounter Visit Diagnoses Not on filedocumented in this encounter Care Teams Guest Relations Coordinator Relationship Specialty Start Date End Date Henry Dhaliwal DO [address] [employer] [place] [address] PCP - General Family Medicine 08/02/18 11/11/20 documented as of this encounter
--- OUTSIDE RECORDS SUMMARY | 2024-08-15 13:57 | XMS_ITS | Encounter Summary ---
Author Organization [facility] [place] [place] [address] Care Team Providers Care Clinical Account Specialist Name Role Phone Henry Dhaliwal Primary Care Provider Encounter Details Date Type Department Care Team (Latest Contact Info) Description 12/26/2019 Travel Social History Tobacco Use Types Packs/Day [...] Author No 09/05/2017 11:13 AM EST Gabby Mercedse RMA documented as of this encounter Mental [...] PM EST Office Visit [facility] [address] [place] [address] Swapnil Lopez MD [address] [place] [address] 10/21/2024 2:00 PM EST Appointment [facility] MRI [address] [place] [address] Jacky Shirley MD [address] [place] [address] [place], [place] [id number] 10/23/2024 1:45 PM EST Appointment [place] [address] Olena Darby APRN [address] [place] [address] [place], [place] [id number] documented as of this encounter Goals Goal Patient Goal Type Associated Problems Recent Progress Patient-Stated? Author Maintain a healthy diet, exercise regularly and maintain an ideal body weight General No Linda Walden RMA documented as of this encounter Visit Diagnoses Not on filedocumented in this encounter Care Teams Clinical Account Specialist Relationship Specialty Start Date End Date Henry Dhaliwal DO [address] [employer] [place] [address] PCP - General Family Medicine 08/02/18 11/11/20 documented as of this encounter
--- OUTSIDE RECORDS SUMMARY | 2024-08-15 13:57 | XMS_ITS | Encounter Summary ---
Author Organization [place] [address] Care Team Providers Care Animal Sticker Name Role Phone Henry Dhaliwal Primary Care Provider [phone] Reason for Visit * Reason Onset Date Comments Medication Question 11/18/2019 Encounter Details Date Type Department Care Team (Late st Contact Info) Description 11/18/2019 Telephone SEP Gastro [facility] 6[address] [facility] [address] [place] [address] Mcihael Valenzuela MD [address] [place] [address] Medication Question Social History Tobacco Use Types [...] encounter Miscellaneous Notes * Telephone Encounter - Satish Terry - 11/19/2019 4:53 PM EST Great thanks! * Telephone Encounter - Fausto Holt LPN - 11/19/2019 4:49 PM EST Satish A ph call was made to her earlier today to give her the results. We had to leave a message. I will attempt to contact her again. * Telephone Encounter - Satish Terry - 11/19/2019 4:42 PM EST Pt sent a message through the patient portal and was sent to me by [employer]. Patient states she isstill waiting on us to call her back. I see we've had communication with the patient but please be sure to f/u with her today and let her know we are waiting on lab results and recommendations. Thanks! * Telephone Encounter - Yaa Lovelace, Clerical Staff - 11/19/2019 2:46 PM EST PT RETURNING YOUR CALL, PLEASE GIVE PT A CB * Telephone Encounter - Fausto Holt LPN - 11/18/2019 9:49 AM EST Detailed VM was left on Monday afternoon for pt. S/w pt and informed of message- treatment of prednisone is not done until stool studies come back negative for infection. Once we receive all the labs back and Dr. ROSA has reviewed them and given his recommendations I would be in contact on what the next step was. Pt was agreeable to this. * Telephone Encounter - Yaa Lovelace, Clerical Staff - 11/18/2019 9:37 AM EST PT CALLING STATING SHE NEVER HEARD BACK FROM OUR OFFICE ON Monday RE: HER STEROIDS , PLEASE GIVE GUARD RAIL INSTALLER CB documented in this encounter Plan of Treatment Upcoming Encounters Date Type Department Care Team (Late st Contact Info) Description 09/11/2024 1:45 PM EST Office Visit [facility] [address] [place] [address] Swapnil Lopez MD [address] [place] [address] 10/21/2024 2:00 PM EST Appointment [facility] MRI [address] [place] [address] Jacky Shirley MD 1 [facility] [place] [address] 10/23/2024 1:45 PM EST Appointment [place] [address] Olena Darby APRN [address] [place] [address] [place] [address] documented as of this encounter Goals Goal Patient Goal Type Associated Problems Recent Progress Patient-Stated? Author Maintain a healthy diet, exercise regularly and maintain an ideal body weight General No Linda Walden, RMA documented as of this encounter Visit Diagnoses Not on filedocumented in this encounter Care Teams Animal Sticker Relationship Specialty Start Date End Date Henry Dhaliwal DO [address] [place] [address] PCP - General Family Medicine 08/02/18 11/11/20 documented as of this encounter
--- OUTSIDE RECORDS SUMMARY | 2024-08-15 13:57 | XMS_ITS | Encounter Summary ---
Author Organization [place] [address] Care Team Providers Care Bit Shaver Name Role Phone Henry Dhaliwal DO Primary Care Provider [phone] Reason for Visit * Reason Onset Date Comments Other 11/20/2019 Encounter Details Date Type Department Care Team (Late st Contact Info) Description 11/20/2019 Telephone SEP Gen Surg Edg [address] [facility] [address] [place] [address] Pino Bolivar MD 20 [facility] [address] [place] [address] Other Social History Tobacco Use Types Packs/Day [...] Telephone Encounter - Valery Mcmahon MA - 11/21/2019 9:25 AM EST Records faxed * Telephone Encounter - Cathy Miranda - 11/20/2019 2:18 PM EST Zoila from [facility] called requested records from office visit regarding this patient on 11/08/[address] Bolivar. Fax number is [phone]. Please contact Zoila if you have any further questions. documented in this encounter Plan of Treatment Upcoming Encounters Date Type Department Care Team (Late st Contact Info) Description 09/11/2024 1:45 PM EST Office Visit [facility] [address] [place] [facility] [address] Swapnil Lopez MD [address] [facility] [address] 10/21/2024 2:00 PM EST Appointment [facility] [address] [place], [place] [phone] Jacky Shirley MD 1 [facility] [place] [address] 10/23/2024 1:45 PM EST Appointment [facility] [place] [address] Olena Darby APRN [address] [place] [address] [facility] [place], [place] [id number] documented as of this encounter Goals Goal Patient Goal Type Associated Problems Recent Progress Patient-Stated? Author Maintain a healthy diet, exercise regularly and maintain an ideal body weight General No Linda Walden, RMA documented as of this encounter Visit Diagnoses Not on filedocumented in this encounter Care Teams Bit Shaver Relationship Specialty Start Date End Date Henry Dhaliwal DO [address] [place] [id number] PCP - General Family Medicine 08/02/18 11/11/20 documented as of this encounter
--- OUTSIDE RECORDS SUMMARY | 2024-08-15 13:57 | XMS_ITS | Encounter Summary ---
Author Organization [facility] [address] Care Team Providers Care Hands And Dial Inspector Name Role Phone MadhuriHenry Jayant MARTEL Primary Care Provider [phone] Encounter Details Date Type Department Care Team (Latest Contact Info) Description 11/08/2019 Travel Social History Tobacco Use Types Packs/Day [...] PM EST Office Visit [facility] [address] [facility], [place] [address] Swapnil Lopez MD [address] [facility] [address] 10/21/2024 2:00 PM EST Appointment [facility] MRI [address] [facility] [place] [address] Jacky Shirley MD [address] [place] [address] [facility]CER C[place], [place] [address] 10/23/2024 1:45 PM EST Appointment [facility] ON[facility] [place], [place] [address] Olena Darby APRN [address] [place] [address] [place] [address] documented as of this encounter Goals Goal Patient Goal Type Associated Problems Recent Progress Patient-Stated? Author Maintain a healthy diet, exercise regularly and maintain an ideal body weight General No Linda Walden RMA documented as of this encounter Visit Diagnoses Not on filedocumented in this encounter Care Teams Hands And Dial Inspector Relationship Specialty Start Date End Date Henry Dhaliwal DO [address] [place] [address] PCP - General Family Medicine 08/02/18 11/11/20 documented as of this encounter
--- OUTSIDE RECORDS SUMMARY | 2024-08-15 13:57 | XMS_ITS | Encounter Summary ---
Author Organization [place] [address] Care Team Providers Care Group Fitness Instructor Name Role Phone MadhuriHenry Jayant MARTEL Primary Care Provider [phone] Reason for Visit * Oncology Medication Prior Authorization (Routine) - Closed Specialty Diagnoses / Procedures Referred By Lata t Referred To Contact Diagnoses Crohn's disease of colon with complication (HCC) Procedures MN INJECTION, VEDOLIZUMAB Swapnil Lopez MD [address] [place] [address] Phone: tel: fax: [address] [place] [address] Phone: tel: fax: Referral ID Status Reason Start Date Expiration Date Visits Re quested Visits Authorized [id number] Closed 12/31/2019 12/30/2020 1 1 Encounter Details Date Type Department Care Team (Latest Contact Info) Description 01/15/2020 1:29 PM EDT - 01/15/2020 11:59 PM EDT Hospital Encounter [address] [place] [address] Crohn's disease of colon with [...] Sign Reading Time Taken Comments Blood Pressure 116/65 01/15/2020 2:49 PM EDT Pulse 77 01/15/2020 2:49 PM EDT Temperature 37 ??C (98.6 ??F) 01/15/2020 2:49 PM EDT Respiratory Rate 16 01/15/2020 2:49 PM EDT Oxygen Saturation - - Inhaled [...] 11:13 AM EST Mercedes , Gabby, RMA documented in this encounter Medications at Time of Discharge traMADol (ULTRAM) 50 mg Oral Tablet 50 mg every 6 hours as needed. 10/18/2019 04/12/2022 documented as of this encounter Discharge Disposition Disposition Code Departure Means Destination Home or Self Care documented in this encounter Miscellaneous Notes * Patient Instructions - Monica Rouse RN - 01/15/2020 1:30 PM EDT [facility] Dis[facility] Instructions Thank you for entrusting the [facility] [place] [facility] with your care. We hope you [...] - Monday 8:00 AM - 4:30 PM. [facility] [address] [place] [id number] 986 [phone] [facility] [address], [address] [place] [address] [place] [address] [phone] [facility] [address] [facility] [address] [facility]. [address] [place] [address] [place] [address] [phone] documented in this encounter Plan of Treatment Upcoming Encounters Date Type Department Care Team (Late st Contact Info) Description 09/11/2024 1:45 PM EST Office Visit [facility] [address] [facility], [place] [phone] Swapnil Lopez MD [address] [facility] [address] 10/21/2024 2:[address] 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 Crohn's disease of colon with complication (HCC)Indications:Crohn's disease of colon with complication (HCC) New Bag 01/15/2020 1:58 PM EDT 30 mL 30 mL/hr sodium chloride 0.9% syringe 10 mL 10 mL, Intravenous, PRN, Starting on Mon01/15/20 at 0814, Until Mon01/17/20 at 0409, Line Care, For Venous Access Device care and maintenance., Dx: 1. Crohn's disease of colon with complication (HCC)Indications:Crohn's disease of colon with complication (HCC) Given 01/15/2020 1:57 PM EDT 10 mL vedolizumab (ENTYVIO) 300 mg in sodium chloride 0.9 % 250 mL 300 mg, Intravenous, ONCE, 1 dose, On Mon01/15/20 at 1345, Administer over 30 Minutes, Administer over 30 minutes Order date: 12/27/2019, Dx: 1. Crohn's disease of colon with complication (HCC)Indications:Crohn's disease of colon with complication (HCC) IV Started 01/15/2020 2:13 PM EDT 300 mg 560 mL/hr documented in this encounter Historical Medications * This list may reflect changes made after this encounter. cyclobenzaprine (FLEXERIL) 5 mg Oral Tablet Take 5 mg by mouth as needed. 01/07/2020 11/13/2023 added in this encounter Care Teams Group Fitness Instructor Relationship Specialty Start Date End Date Henry Dhaliwal DO [address] [employer] [facility] [address] PCP - General Family Medicine 08/02/18 11/11/20 documented as of this encounter
--- OUTSIDE RECORDS SUMMARY | 2024-08-15 13:58 | XMS_ITS | Encounter Summary ---
Author Organization [place] [address] Care Team Providers Care Mix Mill Tender Name Role Phone Suri Garduno MD Primary Care Provider [phone] Reason for Visit * Reason Comments Anxiety Encounter Details Date Type Department Care Team (Latest Contact Info) Description 07/25/2017 9:00 AM EDT Office Visit [facility] [address] [place] [address] Suri Garduno MD [address] [place] [address] Anxiety and depression (Primary Dx); Visit for screening mammogram; Alcoholism (HCC); Crohn's disease with complication, unspecified gastrointestinal [...] Sign Reading Time Taken Comments Blood Pressure 132/86 07/25/2017 9:07 AM EDT Pulse - - Temperature 37.1 ??C (98.7 ??F) 07/25/2017 9:07 AM ED T Respiratory Rate - - Oxygen Saturation - - Inhaled Oxygen Concentration - - Weight 64 kg (141 lb) 07/25/2017 9:07 AM EDT Height 157.5 cm (5' 2 ) 07/25/2017 9:07 AM EDT Body Mass Index 25.79 07/25/2017 9:07 AM EDT documented in this encounter Ordered Prescriptions Prescription Sig Dispense Quantity Refills Last Filled Start Date End Date escitalopram oxalate (LEXAPRO) 10 mg Oral Tablet Take 1 Tab by mouth daily. 30 Tab 6 07/25/2017 09/05/2017 clonazePAM (KLONOPIN) 1 mg Oral Tablet Take 1 Tab by mouth 2 times daily as needed for Anxiety. 60 Tab 1 07/25/2017 09/05/2017 documented in this encounter Progress Notes * Suri Garduno MD - 07/25/2017 12:20 PM EDTAssociated Problem(s): Crohn's Hasn't seen her regular GI in some time and currently not on any medication. Encouraged her to do so. Will continue to work on this. * Suri Garduno MD - 07/25/2017 12:19 PM EDTAssociated Problem(s): Alcoholism (HCC) Denies current use. * Suri Garduno MD - 07/25/2017 12:18 PM EDTAssociated Problem(s): Anxiety and depression Agreed to let her try klonopin. Will also start lexapro. She is high risk using klonopin given her history of alcoholism and will need to watch closely. Hope that longterm the ssri will help and will no longer need klonopin. patricia reviewed and ok. Will need follow up in about 4-6 weeks. * Suri Garduno MD - 07/25/2017 9:00 AM EDT Vitals: 07/25/17 0907 BP: 132/86 BP Location: Right arm Patient Position: Sitting Temp: 98.7 ??F (37.1 ??C) TempSrc: Oral Weight: 141 lb (64 kg) Height: 5' 2 (1.575 m) Chief Complaint Patient presents with ??? Anxiety HPI: SUBJECTIVE: 56 y.o. female for anxiety. Goes to GI at - but hasn't followed up in some time. Had EGD - showed ulcers. Has history of stomach CA - doesn't see oncology any further. Has no insurance. Anxiety/Depression: Patient presents for anxiety disorder. She has the following anxiety symptoms: palpitations, racingthoughts. Onset of symptoms was approximately 2 years ago, gradually worsening since that time. Shedenies current suicidal and homicidal ideation. Family history significant for ADHD. She has not history drug abuse. Previous treatment includes Ativan (lorazepam) and SSRI effexor and zoloft She complains of the following side effects from the treatment: ineffective. Patient states that the only medication that has worked for her so far is the Ativan, she gets shaky. She states that she needs something for her nerves. She states that when she is alone and her anxiety gets the best of her then she drinks and she doesn't want to do that. Lost and GM last year. Going to therapy. Didn't like zoloft. No current outpatient prescriptions on file. No current facility-administered medications for this visit. Allergies: Sulfa (sulfonamide antibiotics) No LMP recorded. Patient is postmenopausal. ROS: Feeling well. No dyspnea or chest pain on exertion. No abdominal pain, change in bowel habits,black or bloody stools. No urinary tract symptoms. DIRECTOR OF EPIDEMIOLOGY ROS: no hot flashes. No neurological complaints. OBJECTIVE: The patient appears well, alert, oriented x 3, in no distress. BP 132/86 (BP Location: Right arm, Patient Position: Sitting) Temp 98.7 ??F (37.1 ??C) (Oral) Ht 5' 2 (1.575 m) Wt 141 lb (64 kg) BMI 25.79 kg/m?? ENT normal. Neck supple. No adenopathy or thyromegaly. DAMIAN. Lungs are clear, good air entry, no wheezes, rhonchi or rales. S1 and S2 normal, no murmurs, regular rate and rhythm. Abdomen soft without tenderness, guarding, mass or organomegaly. Extremities show no edema, normal peripheral pulses. Neurological is normal, no focal findings. Review of Systems See above Physical Exam See above Patient Active Problem List Diagnosis ??? Alcoholism (HCC) ??? Crohn's ??? History of stomach cancer ??? Depression ??? Exacerbation of Crohn's disease (HCC) ??? Food impaction of esophagus Past Medical History: Diagnosis Date ??? Cancer (HCC) ??? Crohn disease (HCC) Past Surgical History: Procedure Laterality Date ??? SECTION x2 ??? COLON SURGERY x11 crohns ??? COLOSTOMY ??? UPPER GASTROINTESTINAL ENDOSCOPY N/A 06/25/2016 ESOPHAGOGASTRODUODENOSCOPY with biopsy with conscious sedation; Surgeon: Christopher Matthews MD PHD; Location: [facility]; Service: Endoscopy Social History Social History ??? Marital status: Spouse name: N/A ??? Number of children: N/A ??? Years of education: N/A Social History Main Topics ??? Smoking status: Never Smoker ??? Smokeless tobacco: Never Used ??? Alcohol use Yes Comment: vodka; states that she drank before coming today ??? Drug use: No ??? Sexual activity: Not on file Other Topics Concern ??? Not on file Social History Narrative ??? No narrative on file See time date stamps in the EMR for other pertient history components reviewed as part of today's encounter. [facility] Documentation Medication Compliance: Compliant all the time Understanding of Current Medications: Good Medication Compliance Barriers: None or N/A Self-Management Tools: N/A: no chronic conditions Self-Management Ability: Good Willingness to Adopt Healthy Behaviors: Good Potential Barriers to completing treatment plans today: No significant barriers [facility] Flowsheet was completed/reviewed as part of today's visit. Educated patient regarding the diagnosis, medication/treatment, goals, self- management tools and instructions based on their care plan. They verbalized understanding of the education given on the After Visit Summary [AVS] for today's visit. A copy of the AVS was provided either in writing and/or via [employer]. A new medicine was prescribed during this office visit. I did discuss the reason for prescribing this new medication. I also informed of possible likely side effects, but also encouraged them to readthe medication insert that will accompany their prescription and encouraged them to discuss any questions about the insert with their pharmacist. I instructed them to call if having side effects or possible allergic reaction after taking. I also discussed the risk of stopping the medication or deviating from prescribing instructions. Dosing instructions are present on the AVS and they are aware. I inquired of any questions and answered accordingly. Assessment Diagnoses and all orders for this visit: 1. Anxiety and depression Assessment & Plan: Agreed to let her try klonopin. Will also start lexapro. She is high risk using klonopin given her history of alcoholism and will need to watch closely. Hope that intermediate frame tender the ssri will help and will no longer need klonopin. patricia reviewed and ok. Will need follow up in about 4-6 weeks. 2. Visit for screening mammogram - MM MAMMO DIGITAL SCREENING W CAD BILAT; Future 3. Alcoholism (HCC) (Chronic) Assessment & Plan: Denies current use. 4. Crohn's disease with complication, unspecified gastrointestinal tract location (HCC) (Chronic) Assessment & Plan: Hasn't seen her regular GI in some time and currently not on any medication. Encouraged her to do so. Will continue to work on this. Other orders - clonazePAM (KLONOPIN) 1 mg Oral Tablet; Take 1 Tab by mouth 2 times daily as needed for Anxiety. Dispense: 60 Tab; Refill: 1 - escitalopram oxalate (LEXAPRO) 10 mg Oral Tablet; Take 1 Tab by mouth daily. Dispense: 30 Tab; Refill: 6 documented in this encounter Plan of Treatment Upcoming Encounters Date Type Department Care Team (Late st Contact Info) Description 09/11/2024 1:45 PM EST Office Visit [facility] [address] [place] [facility] [place] [address] Swapnil Lopez MD [address] [place] [address] 10/21/2024 2:00 PM EST Appointment [facility] [address] [address] Jacky Shirley MD [address] [facility] [address] 10/23/2024 1:45 PM EST Appointment [facility] [place] [place] [address] Olena Darby APRN [address] [place] [address] [place] [address] documented as of this encounter Goals Goal Patient Goal Type Associated Problems Recent Progress Patient-Stated? Author Maintain a healthy diet, exercise regularly and maintain an ideal body weight General No Linda Walden, A documented as of this encounter Visit Diagnoses Diagnosis Anxiety and depression- Primary Dysthymic disorder Visit for screening mammogram Other screening mammogram Alcoholism (HCC) Other and unspecified alcohol dependence, unspecified drinking behavior Crohn's disease with complication, unspecified gastrointestinal tract location (HCC) documented in this encounter Discontinued Medications Medication Sig Discontinue Reason Start Date End Da te LORazepam (ATIVAN) 0.5 mg Oral Tablet Take 1 Tab by mouth 2 times daily. DELETE-Therapy completed 04/03/2015 07/25/2017 pantoprazole (PROTONIX) 40 mg Oral Tablet, Delayed Release (E.C.) Take 1 Tab by mouth daily. DELETE-Therapy completed 04/03/2015 07/25/2017 sertraline (ZOLOFT) 50 mg Oral TabletIndications:IRMA (generalized anxiety disorder) Take 1 Tab by mouth daily. DELETE-Therapy completed 04/03/2015 07/25/2017 sucralfate (CARAFATE) 100 mg/mL Oral Suspension Take 10 mL by mouth 4 times daily. DELETE-Therapy completed 06/25/2016 07/25/2017 documented as of this encounter Care Teams Mix Mill Tender Relationship Specialty Start Date End Date Suri Garduno MD PCP - General Family Medicine 07/25/17 08/01/18 documented as of this encounter
--- OUTSIDE RECORDS SUMMARY | 2024-08-15 13:58 | XMS_ITS | Encounter Summary ---
Author Organization [place] [address] Care Team Providers Care Cable Strander Name Role Phone Suri Garduno MD Primary Care Provider [phone] Reason for Visit * Reason Comments Anxiety Encounter Details Date Type Department Care Team (Late Contact Info) Description 07/24/2018 11:00 AM EDT Office Visit [facility] [address] [place] [id number] Henry Dhaliwal, DO [address] [place] [address] Alcoholism (HCC) (Primary Dx); Depression, unspecified depression type; Anxiety and depression Social History Tobacco Use Types Packs/Day Years [...] Sign Reading Time Taken Comments Blood Pressure 140/80 07/24/2018 10:43 AM EDT Pulse 83 07/24/2018 10:43 AM EDT Temperature 36.8 ??C (98.2 ??F) 07/24/2018 10:43 AM E DT Respiratory Rate - - Oxygen Saturation 99% 07/24/2018 10:43 AM EDT Inhaled Oxygen Concentration - - Weight 59.9 kg (132 lb) 07/24/2018 10:43 AM EDT Height 157.5 cm (5' 2 ) 07/24/2018 10:43 AM EDT Body Mass Index 24.14 07/24/2018 10:43 AM EDT documented in this encounter Functional [...] 3 times daily as needed. 30 Cap 07/24/2018 09/03/2018 escitalopram oxalate (LEXAPRO) 10 mg Oral TabletIndications:A nxiety and depression,Depressi on, unspecified depression type Take 1 Tab by mouth daily. 30 Tab 2 07/24/2018 08/29/2018 documented in this encounter Progress Notes * Henry Dhaliwal DO - 07/24/2018 11:00 AM EDT See time date stamps in the EMR for other [facility] history components reviewed as part of today's encounter.Vitals: 07/24/18 1043 Pulse: 83 Temp: 98.2 ??F (36.8 ??C) TempSrc: Oral SpO2: 99% Weight: 132 lb (59.9 kg) Height: 5' 2 (1.575 m) Chief Complaint Patient presents with ??? Anxiety Patient is here today for anxiety. Discuss anxiety med, she has taken ativan in the past. It helpedher a lot at the time. Her , grandmother and ex this year. Her son is also having issues. She is extremely stressed. She had a drinking problem in the past and quit drinking. She has started drinking again due to the stress, she does not want to drink. She has gone a weekwithout drinking and is afraid if she does not get on medication she will go back to drinking. She was given medication from about a year ago, does not remember the name. The medication madeher feel crazy so she threw them away. She is not currently taking any medications. She is not currently seeing any therapy. Rest of HPI above reviewed by me. Review of Systems Constitutional: Negative for chills [...] numbness. Psychiatric/Behavioral: Negative for agitation and confusion. The patient is nervous/anxious. All other systems reviewed and are negative. Physical Exam Constitutional: She is oriented to person, place, and time. She appears well- developed and well-nourished. HENT: Head: Normocephalic. Pulmonary/Chest: Effort normal. Neurological: She is alert and oriented to person, place, and time. No cranial nerve deficit. She exhibits normal muscle tone. Coordination normal. Psychiatric: She has a normal mood and affect. Nursing note and vitals reviewed. See time date stamps in the EMR for other [facility] history components reviewed as part of today's encounter. [facility] Documentation Medication Compliance: Compliant all the time Understanding of Current Medications: Good Medication Compliance Barriers: None or N/A Self-Management Tools: N/A, no chronic conditions Self-Management Ability: Good Willingness to Adopt Healthy Behaviors: Good Potential Barriers to completing treatment plans today: No significant barriers [facility] Flowsheet was completed/reviewed as part of today's visit. Educated patient regarding the diagnosis, medication/treatment, goals, self- management tools and instructions based on their care plan. They verbalized understanding of the education given on the After Visit Summary [AVS] for today's visit. A copy of the AVS was provided either in writing and/or via [employer]. A new medicine was prescribed during this [...] Diagnoses and all orders for this visit: Alcoholism (HCC) (Chronic) Depression, unspecified depression type (Chronic) - escitalopram oxalate (LEXAPRO) 10 mg Oral Tablet; Take 1 Tab by mouth daily. Dispense: 30 Tab; Refill: 2 Anxiety and depression - escitalopram oxalate (LEXAPRO) 10 mg Oral Tablet; Take 1 Tab by mouth daily. Dispense: 30 Tab; Refill: 2 - hydrOXYzine (VISTARIL) 25 mg Oral Capsule; Take 1 Cap by mouth 3 times daily as needed. Dispense:30 Cap; Refill: 0 She did not give Lexapro an adequate trial before discontinuation in the past. She did have a lot of side effects of Klonopin including sedation. She did just quit alcohol between 1 and 2 weeks ago after relapsing. She is not having withdrawal symptoms at this time. I have a lot of reluctance to giving her benzodiazepine due to her alcohol addiction. Will trial hydroxyzine and Lexapro. I told herthat I want her to get counseling approximately 2 times a week. Gave her a list of resources. We talked about methods to decrease her anxiety. I will see her back in approximately 4 weeks. At that time we will discuss medications and may need to alter her SSRI. documented in this encounter Miscellaneous Notes * Patient Instructions - Henry Dhaliwal DO - 07/24/2018 11:00 AM EDT Mental Health and Counseling: The following organizations provide Mental Health Services. If focused on one population, specifiedbelow: [facility] (counseling for all ages, accepts Medicare): -[address], [place], [place] Family [facility] (Counseling): - [address] [place], [place] [facility] www.[facility] [employer] [facility] www.[email or web address][email or web address] [employer] [facility] www.Elastra [facility] (Counseling): - [address] [facility], [place]: - [address] [facility] www.[facility] (Children???s counseling): - [address] [facility] Chapis Olmedo [facility] [employer] [address] [address] documented in this encounter Plan of Treatment Upcoming Encounters Date Type Department Care Team (Late st Contact Info) Description 09/11/2024 1:45 PM EST Office Visit [facility] [address] [facility] [place], [place] [id number] Swapnil Lopez MD [address] [place] [id number] 10/21/2024 2:00 PM EST Appointment [facility] [address] [place] [address] Jacky Shirley MD [address] [facility] [place], [place] [id number] 10/23/2024 1:45 PM EST Appointment [facility] [place], [place] [id number] Olena Darby APRN [address] [place] [address] [place], [place] [id number] documented as of this encounter Goals Goal Patient Goal Type Associated Problems Recent Progress Patient-Stated? Author Maintain a healthy diet, exercise regularly and maintain an ideal body weight General No Linda Walden, A documented as of this encounter Visit Diagnoses Diagnosis Alcoholism (HCC)- Primary Other and unspecified alcohol dependence, unspecified drinking behavior Depression, unspecified depression type Anxiety and depression Dysthymic disorder documented in this encounter Care Teams Cable Strander Relationship Specialty Start Date End Date Suri Garduno MD PCP - General Family Medicine 07/25/17 08/01/18 documented as of this encounter
--- OUTSIDE RECORDS SUMMARY | 2024-08-15 13:58 | XMS_ITS | Encounter Summary ---
Author Organization [place] [address] Care Team Providers Care Delivery Driver/Supervisor Name Role Phone Franklin Manzanares DO, Viral Primary Care Provider [phone] Reason for Visit * Reason Comments Airway Obstruction Pt seen at [facility]. Sent to have Scope by Dr. Welsh. Encounter Details Date Type Department Care Team (Latest Contact Info) Description 06/25/2016 12:15 PM EDT - 06/25/2016 12:30 PM EDT Surgery [facility] ENDOSCOPY [facility] [address] [place] [id number] Christopher Matthews MD PHD [address] [place] [address] ESOPHAGOGASTRODUODENOSCOPY Surgery Details Date/Time Status Location OR Service Patient Class Case Class Case Type Trauma Case? 06/25/2016 12:15 PM Posted [facility] ENDOSCOPY [facility] ENDO 02 Endoscopy Emergency N/A Panel 1 Procedure LRB Anes Op Region Wound Class Comments ESOPHAGOGASTRODUODENOSCOPY N/A Local (Nurse-Monitor ed) ESOPHAGOGASTRODUOD ENOSCOPY with biopsy with conscious sedation Surgeon Surgeon Role Service Panel Christopher Matthews MD PHD Primary Endoscopy 1 documented in this encounter Social History [...] Sign Reading Time Taken Comments Blood Pressure 130/71 06/25/2016 2:40 PM EDT Pulse 83 06/25/2016 2:40 PM EDT Temperature 36.7 ??C (98.1 ??F) 06/25/2016 2:11 PM ED T Respiratory Rate 16 06/25/2016 2:40 PM EDT Oxygen Saturation 98% 06/25/2016 2:40 PM EDT Inhaled Oxygen Concentration - - Weight 49.9 kg (110 lb) 06/25/2016 10:56 AM EDT Height 157.5 cm (5' 2 ) 06/25/2016 10:56 AM EDT Body Mass Index 20.12 06/25/2016 10:56 AM EDT documented in this encounter Discharge Instructions * Discharge Instructions* Christopher Bolton RN - 06/25/2016 2:45 PM EDT Images from the original note were not included. [facility] Discharge Instructions - Following Endoscopy 1. A responsible adult, 18 years or older must be in attendance until the next A.M. 2. Rest quietly today. 3. May resume usual diet. 4. Do not drive or operate any machinery until the next A.M., or as instructed. 5. No alcoholic beverages for 24 hours. 6. Do not make any legal or important decisions for the next 24 hours. 7. Call the physician???s office for a follow-up visit as needed. 8. Patient discharged to the care of her mother and father. ADDITIONAL INSTRUCTIONS: Call Dr. Christopher Matthews PhD. at [phone] if the following occurs: EGD: Abdominal pains, cramps, swelling, chest pains, difficulty in swallowing, chills, coughing blood, severe sore throat, or body temp. over 101 degrees. Other Instructions: Prescription for Carafate called to Pharmacy. Take as directed Continue taking other medications. Follow up with Primary Care Physician for referral for follow up. Swallowed Foreign Body, Adult You have swallowed an object (foreign body). Once the foreign body has passed through the food tube(esophagus), which leads from the mouth to the stomach, it will usually continue through the body without problems. This is because the point where the esophagus enters into the stomach is the narrowest place through which the foreign body must pass. Sometimes the foreign body gets stuck. The most common type of foreign body obstruction in adults is food impaction. Many times, bones from fish or meat products may become lodged in the esophagus orinjure the throat on the way down. When there is an object that obstructs the esophagus, the most obvious symptoms are pain and the inability to swallow normally. In some cases, foreign bodies that can be life threatening are swallowed. Examples of these are certain medications and illicit drugs. Often in these instances, patients are afraid of telling what they swallowed. However, it is extremely important to tell the emergency caregiver what was swallowed because life-saving treatment may be n eeded. X-ray exams may be taken to find the location of the foreign body. However, some objects do not show up well or may be too small to be seen on an X-ray image. If the foreign body is too large or too sharp, it may be too dangerous to allow it to pass on its own. You may need to see a caregiver who specializes in the digestive system (bowl attendant). In a few cases, a specialist may need to remove the object using a method called endoscopy .?? This involves passing a thin, soft, flexible tube into the food pipe to locate and remove the object. Follow up with your primary doctor or the referral you were given by the emergency caregiver. HOME CARE INSTRUCTIONS ?? If your caregiver says it is safe for you to eat, then only have liquids and soft foods until your symptoms improve. ?? Once you are eating normally: ?? Cut food into small pieces. ?? Remove small bones from food. ?? Remove large seeds and pits from fruit. ?? Chew your food well. ?? Do not talk, laugh, or engage in physical activity while eating or swallowing. SEEK MEDICAL CARE IF: ?? You develop worsening shortness of breath, uncontrollable coughing, chest pains or high fever, greater than 102?? F (38.9?? C). ?? You are unable to eat or drink or you feel that food is getting stuck in your throat. ?? You have choking symptoms or cannot stop drooling. ?? You develop abdominal pain, vomiting (especially of blood), or rectal bleeding. MAKE SURE YOU: ?? Understand these instructions. ?? Will watch your condition. ?? Will get help right away if you are not doing well or get worse. Document Released: 03/08/2011 Document Revised: 12/10/2012 Document Reviewed: 03/08/2011 ExitCare?? Patient Information ??2015 [employer]. This information is not intended to replace advice given to you by your health care provider. Make sure you discuss any questions you have with your health care provider. documented in this encounter Ordered Prescriptions Prescription Sig Dispense Quantity Refills Last Filled Start Date End Date sucralfate (CARAFATE) 100 mg/mL Oral Suspension Take 10 mL by mouth 4 times daily. 500 mL 06/25/2016 07/25/2017 documented in this encounter Discharge Disposition Disposition Code Departure Means Destination Home or Self Long-Term documented in this encounter Procedure Notes * Christopher Matthews MD PHD - 06/25/2016 12:52 PM EDT [facility] OPERATIVE/PROCEDURE NOTE Ra Rosales June 25, 2016 Body mass index is 20.12 kg/(m^2). PRE-OP DIAGNOSIS: Food Bolus POST-OP DIAGNOSIS: large esophageal ulcer at 15cm, numerous antral ulcers, duodenal ulcers; food pushed into stomach PROCEDURE(S): Procedure(s): ESOPHAGOGASTRODUODENOSCOPY with biopsy with conscious sedation SURGEON(S): Surgeon(s) and Role: * Christopher Matthews MD PHD - Primary ANESTHESIA: Local (Nurse-Monitored) SPECIMENS: ID Type Source Tests Collected by Time Destination 1 : duodenum biopsy Christopher Matthews MD PHD 06/25/2016 135 Pathology 2 : gastric biopsy Christopher Matthews MD PHD 06/25/2016 3849 Pathology 3 : esophagus biopsy Christopher Matthews MD PHD 06/25/2016 1359 Pathology ESTIMATED BLOOD LOSS: * No values recorded between 06/25/2016 1:34 PM and 06/25/2016 2:09 PM * FINDINGS: Findings: Esophagus Excavated lesions A single ulcer was found in the upper third of the esophagus. The ulcerwas at 15 cm from the incisors and occupied half of the circumference esophagus. Multiple cold forceps biopsies were obtained from the mid and distal esophagus. Stomach Excavated lesions Multiple ulcers were found in the antrum and stomach body. Multiple cold forceps biopsies were performed for histology. Duodenum Excavated lesions Multiple ulcers were found in the second part of the duodenum. Multiple cold forceps biopsies were performed for histology. Other Interventions: The food bolus was encountered at 15 cm from the incisors. With careful manipulation of the scope tip, the bolus was able to be pushed into the stomach. There was some oozing of blood from an ulcer which had formed at the site of food impaction. DISPOSITION/POST PROC COURSE: - High dose PPI bid for 30 days. Carafate slurry for 14 days. - Chew food thoroughly. - Await pathology results - Patient OK to be discharged home Christopher Matthews MD PHD Date: 06/25/2016 documented in this encounter Consult Notes * Christopher Matthews MD PHD - 06/25/2016 11:16 AM EDT [facility] Gastroenterology Consult Note Primary Care Physician: Alejandro Reid DO Date of Admission: 06/25/2016 Date of Consultation: 06/25/2016 Reason for Consult: Food impaction HPI: Ra Rosales is a 55 y.o. female has a past medical history of Cancer (HCC) and Crohn disease (HCC) referred to me in consultation by Alejandro Reid DO for evaluation of food impaction. She reports that on morning she was eating brisket she made in the Crock[place]pot the day before. She got up abruptly from the table to answer a phone call and the bite of food became stuck in her throat. Since then she has not been able to swallow or drink anything, and she has been unable to handle her own secretions. She tried drinking some Coke to see if it would help, but she would only bring up some Coke and pieces of meat. She reports that she in the past she intermittently had food catch in her throat, but she has never had it become stuck before. Today she presented to the [facility] ED, where she was given Ativan and glucagon, neither of which helped. She was unable to tolerate Coca-Cola given to her. She reports a long history of Crohn's disease and notes that she uses only occasional prednisone as treatment - her bowl attendant is at [facility]. Past Medical History: Past Medical History Diagnosis Date ??? Cancer (HCC) ??? Crohn disease (HCC) Past Surgical History: Past Surgical History Procedure Laterality Date ??? section x2 ??? Colon surgery x11 crohns ??? Colostomy Family History: No family history on file. Social History: Social History Substance Use Topics ??? Smoking status: Never Smoker ??? Smokeless tobacco: Never Used ??? Alcohol use Yes Comment: liane; states that she drank before coming today Prior To Admission Medications: (Not in a hospital admission) Current Medications: ??? morphine 4 mg Intravenous Once ??? nitroGLYCERIN 0.4 mg Sublingual Once ??? ondansetron 4 mg Intravenous Once Allergies: Allergies Allergen Reactions ??? Sulfa (Sulfonamide Antibiotics) ROS Constitutional: Denies fever, sweats, chills or weight loss Eyes: Denies change in visual acuity HENT: Denies hearing loss or dizziness Respiratory: Denies cough or shortness of breath Cardiovascular: Denies edema or chest pain Gastrointestinal: See HPI : Denies dysuria, hematuria, urgency or frequency Musculoskeletal: Denies back pain or joint pain Integument: Denies rash Neurologic: Denies headache, previous stroke, TIA, confusion Endocrine: Denies polyuria or polydipsia Lymphatic: Denies swollen glands Psychiatric: Denies depression or anxiety Hematologic: Denies previous anemia or easy bruising All other review of systems negative, except for those noted. PHYSICAL EXAM: VITAL SIGNS: Visit Vitals ??? BP 116/60 (BP Location: Left arm, Patient Position: Sitting) ??? Pulse 108 ??? Temp 97.3 ??F (36.3 ??C) (Forehead) ??? Resp 20 ??? Ht 5' 2 (1.575 m) ??? Wt 110 lb (49.9 kg) ??? SpO2 95% ??? BMI 20.12 kg/m2 CONSTITUTIONAL: Awake, alert, cooperative, no apparent distress, and appears stated age EYES: PERRL, EOMI, no scleral icterus ENT/MOUTH: MMM, tenderness of anterior neck CARDIOVASCULAR: Regular rate and rhythm, normal S1 and S2, and no murmur noted RESPIRATORY: No increased work of breathing, clear to auscultation bilaterally GI: soft, non-distended, non-tender : Deferred MUSCULOSKELETAL: No redness, warmth, or swelling of the joints. Paraspinal muscles non-tender on palpation. Range of motion normal. SKIN: Normal skin color, texture, turgor; no jaundice. NEUROLOGIC: Patient is awake and alert. Cranial nerves II-XII are grossly intact. PSYCHIATRIC: Normal affect HEMATOLOGIC/LYMPHATICS: no cervical or supraclavicular lymphadenopathy RESULTS Lab Results Component Value Date ALT 44 (H) 04/02/2015 AST 136 (H) 04/02/2015 GGT 71 (H) 06/25/2014 ALKPHOS 185 (H) 04/02/2015 BILIDIR 0.4 (H) 04/02/2015 PROT 6.5 04/02/2015 LIPASE 38 04/02/2015 Lab Results Component Value Date WBC 8.5 04/02/2015 HGB 12.5 04/02/2015 HCT 37.9 04/02/2015 MCV 93.8 04/02/2015 PLT 212 04/02/2015 Lab Results Component Value Date CREATININE 0.61 04/03/2015 BUN 4 (L) 04/03/2015 NA 136 04/03/2015 K 4.0 04/03/2015 CL 97 (L) 04/03/2015 CO2 30 (H) 04/03/2015 No results found. IMAGES Results for orders placed during the hospital [...] found for this or any previous visit. No results found for this or any previous visit. Microbiology No results found for: OCCULTBLD ASSESSMENT A 55 y.o. female with pmh of gastric CA and Crohn's disease on intermittent prednisone who presentsfor retained food bolus. There are no admission diagnoses documented for this encounter. Patient Active Problem List Diagnosis ??? Alcoholism (HCC) ??? Crohn's ??? History of stomach cancer ??? Depression ??? Exacerbation of Crohn's disease (HCC) PLAN 1. Retained food bolus - She is unable to manage her own secretions and has not passed the food after a day and a half despite Ativan and glucagon. - Will plan on emergent EGD today for food dismpaction. Thanks for allowing me to participate in the care of this patient 1. The patient indicates understanding of these issues and agrees with the plan. 2. I reviewed the patient's medical information and medical history. 3. I have reviewed the past medical, family, and social history sections including the medications and allergies listed in the above medical record. Electronically signed by: Christopher Matthews MD PHD, 06/25/2016 11:17 AM [facility] [phone] documented in this encounter ED Notes * Kylie Fernandez RN - 06/25/2016 12:10 PM EDT To Endo per SPD. documented in this encounter Plan of Treatment Upcoming Encounters Date Type Department Care Team (Late st Contact Info) Description 09/11/2024 1:45 PM EST Office Visit [facility] [address] [place] [address] Swapnil Lopez MD [address] [place] [address] 10/21/2024 2:00 PM EST Appointment [facility] MRI [address] [place] [address] Jacky Shirley MD [address] [facility] [place] [address] 10/23/2024 1:45 PM EST Appointment [facility] [address] [place], [place] [id number] Olena Darby APRN [address] [address] [place], [place] [id number] Scheduled Orders Name Type Priority Associated Diagnoses Orde r Schedule PATHOLOGY TISSUE REQUEST Lab Routine Routine - Once for 1 Occurrences starting 06/25/2016 until 06/25/2016 documented as of this encounter Procedures Procedure Name Priority Date/Time Associated Diagnosis Comments ESOPHAGOGASTRODUODENOSCOPY 06/25 1:34 PM EDT large esophageal ulcer at 15cm, numerous antral ulcers, duodenal ulcers; food pushed into stomach PATHOLOGY TISSUE REPORT Routine 06/25/20 16 1:32 PM EDT PT / INR STAT 06/25/2016 11:28 AM EDT DIFFERENTIAL STAT 06/25/2016 11:25 AM EDT CBC WITH DIFF STAT 06/25/2016 11:25 AM EDT COMPREHENSIVE METABOLIC PANEL STAT 11:25 AM EDT documented in this encounter Results * PATHOLOGY TISSUE REPORT (06/25/2016 1:32 PM EDT) Surgical Pathology Report ? PATIENT NAME:RA ROSALES ?Surgical Pathology Report ? Accession Number ?Collected Date/Time ? Received Date/Time ? [id number] ? 06/25/16 13:32 EDT ?06/27/16 11:45 EDT ? Diagnosis ? 1) Duodenum, biopsy: ? - Duodenal type mucosa with no significant pathologic changes. ? 2) Stomach, biopsy: ? - Antral type mucosa with reactive changes and mild chronic inflammation. ? - No H. pylori organism seen histologically. ? - Separate fragment of unremarkable duodenal type mucosa. ? - Negative for dysplasia. ? 3) Esophagus, biopsy: ? - Squamous mucosa with no significant pathologic changes. ? Laurita Anthony Yousef ? (Electronically signed by) ? Verified: 06/28/2016 ? [facility] ? Clinical Information ? Food Bolus ? large esophageal ulcer at 15 cm, numerous antral ulcers, duodenal ulcers; ? food pushed into stomach ? Gross Description ? The specimen is received in 3 parts, each in formalin labeled with the ? patient's name. ? Part 1) Designated duodenum biopsy and consists of multiple portions of ? ford soft tissue, 0.2 to 0.4 cm in greatest dimension. Entirely submitted in ? one cassette. /CDM ? Part 2) Designated gastric biopsy and consists of multiple portions of ? ford soft tissue, 0.3 to 0.5 cm in greatest dimension. ??Entirely submitted ? in one cassette. /CDM ? Part 3) Designated esophagus biopsy and consists of multiple portions ? of ford soft ? tissue, 0.2 to 0.7 cm in greatest dimension. ??Entirely submitted in one ? cassette. /CDM ? HLR/EH ? Microscopic Description ? Microscopic examination is performed and the findings corroborate the ? diagnosis. [facility] 06/25/2016 1:32 PM EDT Christopher Matthews MD PHD PATHOLOGY ORDERABLES Final Result [facility] [address] [place] [address] * (ABNORMAL) PT / INR (06/25/2016 11:28 AM EDT) PT 13.5(H) 10.1 - 12.9 second(s) [facility] INR 1.17(H) 0.88 - 1.12 [facility] Comment: Level of Therapy ??Indications ??Target INR Range Standard Dose Treatment and prophylaxis of venous 2.0 - 3.0 ??thrombosis, pulmonary embolism ?High Dose High risk patients with mechanical ?2.5 - 3.5 ??heart valves Blood specimen (specimen) UPPER LIMB STRUCTURE / Unknown 06/25/2016 11:28 AM EDT 06/25/2016 11:47 AM EDT us Thompson Savage MD HEMATOLOGY ORDERABLES Final Res ult Performing Organization Address City/[facility]/ZIP Co de Phone Number [facility] [address] [place] [address] * (ABNORMAL) DIFFERENTIAL (06/25/2016 11:25 AM EDT) [facility] Neut Percent 80.6 % [facility] Lymph Percent 13.5 % [facility] Trimble Percent 5.3 % [facility] Eos Percent 0.3 % [facility] Baso Percent 0.3 % [facility] Neut# 12.2(H) 1.8 - 7.7 x10(3)/mcL [facility] Lymph# 2.0 0.6 - 4.8 x10(3)/mcL [facility] Trimble# 0.8 0.0 - 1.3 x10(3)/mcL [facility] Eos# 0.0 0.0 - 0.5 x10(3)/[facility] Baso# 0.0 0.0 - 0.2 x10(3)/[facility] Blood specimen (specimen) 06/25/2016 11:25 AM EDT 06/25/2016 11:45 AM EDT us Thompson Savage MD HEMATOLOGY ORDERABLES Final Res ult Performing Organization Address City/[facility]/[place] [address] * (ABNORMAL) COMPREHENSIVE METABOLIC PANEL (06/25/2016 11:25 AM EDT) [facility] Sodium 141 136 - 145 mmol/L [facility] Potassium 4.0 3.5 - 5.0 mmol/L [facility] Chloride 99 98 - 107 mmol/L [facility] Total CO2 22 22 - 29 mmol/L [facility] Anion Gap 20(H) 7 - 16 mmol/L [facility] Calcium 10.0 8.6 - 10.2 mg/dL [facility] Glucose Lvl 95 74 - 100 mg/dL [facility] BUN 24(H) 6 - 20 mg/dL [facility] Creatinine 0.60 0.51 - 1.30 mg/dL [facility] Albumin 4.5 3.5 - 5.2 gm/dL [facility] Total Protein 8.6(H) 6.4 - 8.3 gm/dL [facility] Bili Total 0.6 0.1 - 1.3 mg/dL [facility] AST 18 <=40 IU/L [facility] ALT 7 <=41 IU/L [facility] Alk Phos 91 35 - 104 IU/L [facility] GFR Afr Am >60 [facility] GFR Non Afr Am >60 [facility] Blood specimen (specimen) UPPER LIMB STRUCTURE / Unknown 06/25/2016 11:25 AM EDT 06/25/2016 11:45 AM EDT us Thopmson Savage MD CHEMISTRY ORDERABLES Final Resu lt Performing Organization Address City/State/[facility] Co de Phone Number [facility] [address] [place] [address] * (ABNORMAL) CBC WITH AUTO DIFF (06/25/2016 11:25 AM EDT) WBC 15.1(H) 4.0 - 11.0 x10(3)/mcL [facility] RBC 4.83 3.80 - 5.10 x10(6)/mcL [facility] Hgb 13.8 12.0 - 15.6 gm/dL [facility] Hct 40.6 35.7 - 45.9 % [facility] MCV 84.0 82.5 - 99.8 fL [facility] MCH 28.5 27.0 - 34.3 pg [facility] MCHC 33.9 32.1 - 35.3 gm/dL [facility] RDW 12.9 11.5 - 15.0 % [facility] Platelet 329 144 - 423 x10(3)/mcL [facility] MPV 7.3 6.8 - 10.8 fL [facility] Blood specimen (specimen) UPPER LIMB STRUCTURE / Unknown 06/25/2016 11:25 AM EDT 06/25/2016 11:45 AM EDT us Thompson Savage MD HEMATOLOGY ORDERABLES Final Res ult [facility] [address] [address] documented in this encounter Visit Diagnoses Not on filedocumented in this encounter Administered Medications Inactive Administered Medications - up to 1 most recent administrations Medication Order MAR Action Action Date Dose Rate Site diphenhydrAMINE (BENADRYL) injection PRN, Starting on 06/25/16 at 1342, Until 06/25/16 at 1514, Intra-procedure(ENDO) Given 06/25/2016 1:42 PM EDT 50 mg fentaNYL (SUBLIMAZE) 50 mcg/mL injection PRN, Starting on 06/25/16 at 1342, Until 06/25/16 at 1514, Intra-procedure(ENDO) Given 06/25/2016 1:57 PM EDT 25 mcg midazolam (VERSED) injection PRN, Starting on 06/25/16 at 1342, Until 06/25/16 at 1514, Intra-procedure(ENDO) Given 06/25/2016 1:57 PM EDT 2 mg morphine injection 4 mg 4 mg, Intravenous, ONCE, 1 dose, On 06/25/16 at 1130 Given 06/25/2016 11:38 AM EDT 4 mg ondansetron (ZOFRAN) 4 mg/2 mL injection 4 mg 4 mg, Intravenous, ONCE, 1 dose, On 06/25/16 at 1130 Given 06/25/2016 11:38 AM EDT 4 mg sodium chloride 0.9 % 1,000 mL IV bolus Intravenous, ONCE, 1 dose, On 06/25/16 at 1145, at 983.6 mL/hr IV Started 06/25/2016 11:38 AM EDT 983.6 mL/hr sodium chloride 0.9% syringe Intravenous, PRN, Starting on 06/25/16 at 1115, Until 06/25/16 at 1653, Line Care, Flush with 5-10 mL saline pre/post IVP, and 5 mL prior to IVPB administration. documented in this encounter Active and Recently Administered Medications Times are shown in EDT. Scheduled Medication Order 06/23/2016 06/24/2016 06/25/2016 morphine injection 4 mg (COMPLETED) 4 mg, Intravenous, ONCE, 1 dose, On 06/25/16 at 1130 1138 (Given - Provid er: Kylie Fernandez, ANGE) ondansetron (ZOFRAN) 4 mg/2 mL injection 4 mg (COMPLETED) 4 mg, Intravenous, ONCE, 1 dose, On 06/25/16 at 1130 1138 (Given - Provid er: Kylie Fernandez, ANGE) sodium chloride 0.9 % 1,000 mL IV bolus (COMPLETED) Intravenous, ONCE, 1 dose, On 06/25/16 at 1145, at 983.6 mL/hr 1138 (IV Started - P rovider: Kylie Fernandez RN)1239 (Due: Stopped - Provider: Kylie Fernandez RN) PRN Medication Order 06/23/2016 06/24/2016 06/25/2016 diphenhydrAMINE (BENADRYL) injection (CANCELED) PRN, Starting on 06/25/16 at 1342, Until 06/25/16 at 1514, Intra-procedure(ENDO) 1342 (Given - Provid er: Damaris Luong RN) fentaNYL (SUBLIMAZE) 50 mcg/mL injection (CANCELED) PRN, Starting on 06/25/16 at 1342, Until 06/25/16 at 1514, Intra-procedure(ENDO) 1342 (Given - Provid er: Damaris Luong RN)1346 (Given - Provider: Damaris Luong RN)1350 (Given - Provider: Damaris Luong RN)1353 (Given - Provider: Damarsi Luong, ANGE)1357 (Given - Provider: Damaris Luong RN) midazolam (VERSED) injection (CANCELED) PRN, Starting on 06/25/16 at 1342, Until 06/25/16 at 1514, Intra-procedure(ENDO) 1342 (Given - Provid er: Damaris Luong RN)1346 (Given - Provider: Damaris Luong RN)1350 (Given - Provider: Damaris Sierra Luong, RN)1353 (Given - Provider: Damaris Luong, RN)1357 (Given - Provider: Damaris Luong, RN) sodium chloride 0.9% syringe Intravenous, PRN, Starting on 06/25/16 at 1115, Until 06/25/16 at 1653, Line Care, Flush with 5-10 mL saline pre/post IVP, and 5 mL prior to IVPB administration. documented in this encounter Orders Medications Ordered That Paul ht Not Have Been Administered Count Last Ordered Date First Ordered Date nitroGLYCERIN (NITROSTAT) SL tablet 0.4 mg 1 06/25/2016 sodium chloride 0.9% syringe 1 06/25/2016 documented in this encounter Care Teams Delivery Driver/Supervisor Relationship Specialty Start Date End Date Alejandro Reid DO [address] [place] [id number] PCP - General Family Medicine 06/25/16 12/14/16 documented as of this encounter
--- OUTSIDE RECORDS SUMMARY | 2024-08-15 13:58 | XMS_ITS | Encounter Summary ---
Author Organization [place] [address] Care Team Providers Care Loan Administrator Name Role Phone Frnaklin Manzanares DO, Viral Primary Care Provider [phone] Reason for Visit * Reason Comments Abdominal Pain history of crohn's, has been having abdominal pain and generalized muscle pain for the past few days. +diarrhea, nausea, and vomiting * Auth/Cert/Inpt Specialty Diagnoses / Procedures Referred By Contac t Referred To Contact Critical Care Medicine Diagnoses Exacerbation of Crohn's disease, with fistula (HCC) [facility] [address] [place] [address] Phone: tel: fax: Referral ID Status Reason Start Date Expiration Date Visits Re quested Visits Authorized 04/02/2015 04/01/2016 Encounter Details Date Type Department Care Team (Latest Contact Info) Description 04/02/2015 2:09 AM EDT - 04/03/2015 6:25 PM EDT Hospital Encounter [facility] [address] [place] [address] Mauro Radford MD [address] [place] [id number] Beny Birmingham MD [address] [place] [address] Mirella Medina MD [address] [place] [phone] Exacerbation of Crohn's disease, with fistula (HCC) (Primary Dx); IRMA (generalized anxiety disorder) Discharge Disposition: Home or Self Care Social [...] Sign Reading Time Taken Comments Blood Pressure 109/70 04/03/2015 3:41 PM EDT Pulse 73 04/03/2015 3:41 PM EDT Temperature 36.6 ??C (97.8 ??F) 04/03/2015 3:41 PM ED T Respiratory Rate 18 04/03/2015 3:41 PM EDT Oxygen Saturation 100% 04/03/2015 3:41 PM EDT Inhaled Oxygen Concentration - - Weight 47.4 kg (104 lb 9.6 oz) 04/02/2015 8:01 A M EDT Height 162.6 cm (5' 4 ) 04/02/2015 8:01 AM EDT Body Mass Index 17.95 04/02/2015 8:01 AM EDT documented in this encounter Discharge Summaries * Mirella Medina MD - 04/03/2015 2:12 PM EDT [facility] Discharge Summary Patient Name: Ra Rosales : 1960 Admit Date: 04/02/2015 Discharge Date: 04/03/2015 Admitting Physician: Beny Birmingham MD Discharge Physician: Mirella Medina MD Hospital Course Patient was admitted with abdominal pain and vomiting. Her work up showed evidence of Crohn's flare. She was seen by GI and was treated with Cipro and Flagyl along with IV steroids. A colonoscopy was recommended to assess her fistula but the patient adamantly refused. She was re-evaluated today, she feels better and tolerated diet. Patient's antibiotics and steroids were changedto oral. She was found stable for discharged on a prolong course of antibiotics and steroids. Patient will continue the antibiotics and prednisone until she see the classifier tender in 2 weeks. Duetp Crohn's related arthritis, she was discharged on Ultram. Consults: Treatment Team: Consulting Physician: Beny Birmingham MD Discharge Exam: BP 116/62 mmHg Pulse 70 Temp(Src) 97.6 ??F (36.4 ??C) (Oral) Resp 20 Ht 5' 4 (1.626 m) Wt 104 lb 9.6 oz (47.446 kg) BMI 17.95 kg/m2 SpO2 93% ? No Patient not in acute distress. Neck supple, no JVD. Lungs CTA. Heart regular S1, S2 are normal. No murmur. Abd soft, NT, ND, bowel sounds are present. Ext No edema or calf pain. Neuro AAO X3. Anxious. No focal deficits. Discharge Diagnoses: Depression Exacerbation of Crohn's disease Condition at Discharge: stable Disposition: Home Discharge Medications:: Medication List START taking these medications ciprofloxacin HCl 500 mg Tab Dose: 500 mg Qty: 42 Tab Refills: 0 Commonly known as: CIPRO 500 mg, Oral, 2 TIMES DAILY LORazepam 0.5 mg Tab Dose: 0.5 mg Qty: 14 Tab Refills: 0 Commonly known as: ATIVAN 0.5 mg, Oral, 2 TIMES DAILY metroNIDAZOLE 500 mg Tab Dose: 500 mg Qty: 63 Tab Refills: 0 Commonly known as: FLAGYL 500 mg, Oral, 3 TIMES DAILY pantoprazole 40 mg Tbec Dose: 40 mg Qty: 30 Tab Refills: 2 Commonly known as: PROTONIX 40 mg, Oral, DAILY predniSONE 20 mg Tab Dose: 40 mg Qty: 60 Tab Refills: 0 Commonly known as: DELTASONE 40 mg, Oral, DAILY WITH MEAL traMADol 50 mg Tab Dose: 50 mg Qty: 20 Tab Refills: 0 Commonly known as: ULTRAM 50 mg, Oral, 2 TIMES DAILY PRN CONTINUE taking these medications sertraline 50 mg Tab Dose: 50 mg Qty: 30 Tab Refills: 2 Commonly known as: ZOLOFT 50 mg, Oral, DAILY Where to Get Your Medications You need to vegetable picker these prescriptions. We sent some of them to a specific pharmacy. Go to these places to get your medications. [facility] [address] [place] [address] - [address] [facility] - [phone] - ciprofloxacin HCl 500 mg Tab - metroNIDAZOLE 500 mg Tab - pantoprazole 40 mg Tbec - predniSONE 20 mg Tab - sertraline 50 mg Tab [address] [facility] [address] You may get the following medications from any pharmacy - LORazepam 0.5 mg Tab - traMADol 50 mg Tab Follow Up: You Lindo MD [address] [facility] [address] Schedule an appointment as soon as possible for a visit in 2 weeks Alejandro Reid V, [address] [place] [address] In 3 days You Lindo MD [address] [facility] [address] In 2 weeks Time spent > 30 mn Signed: Mirella Medina MD 04/03/2015 2:12 PM documented in this encounter Discharge Instructions * Attachments The following attachments cannot be sent through Care Everywhere. * CIPROFLOXACIN - ORAL (GUINEAN) * METRONIDAZOLE-ORAL (GUINEAN) * LORAZEPAM - ORAL (GUINEAN) * TRAMADOL TABLETS (GUINEAN) * PREDNISONE - ORAL (GUINEAN) * PANTOPRAZOLE DR - ORAL (GUINEAN) documented in this encounter Medications at Time of Discharge ciprofloxacin HCl (CIPRO) 500 mg Oral Tablet Take 1 Tab by mouth 2 times daily for 21 days. 42 Tab 0 04/03/2015 04/24/2015 metroNIDAZOLE (FLAGYL) 500 mg Oral Tablet Take 1 Tab by mouth 3 times daily for 21 days. 63 Tab 0 04/03/2015 04/24/2015 predniSONE (DELTASONE) 20 mg Oral Tablet Take 2 Tabs by mouth daily (with breakfast) for 30 days. 60 Tab 0 04/03/2015 05/03/2015 traMADol (ULTRAM) 50 mg Oral Tablet Take 1 Tab by mouth 2 times daily as needed for Pain. 20 Tab 0 04/03/2015 04/25/2015 documented as of this encounter Ordered Prescriptions Prescription Sig Dispense Quantity Refills Last Filled Start Date End Date LORazepam (ATIVAN) 0.5 mg Oral Tablet Take 1 Tab by mouth 2 times daily. 14 Tab 0 04/03/2015 07/25/2017 traMADol (ULTRAM) 50 mg Oral Tablet Take 1 Tab by mouth 2 times daily as needed for Pain. 20 Tab 0 04/03/2015 04/25/2015 metroNIDAZOLE (FLAGYL) 500 mg Oral Tablet Take 1 Tab by mouth 3 times daily for 21 days. 63 Tab 0 04/03/2015 04/24/2015 ciprofloxacin HCl (CIPRO) 500 mg Oral Tablet Take 1 Tab by mouth 2 times daily for 21 days. 42 Tab 0 04/03/2015 04/24/2015 sertraline (ZOLOFT) 50 mg Oral TabletIndications: IRMA (generalized anxiety disorder) Take 1 Tab by mouth daily. 30 Tab 2 04/03/2015 07/25/2017 predniSONE (DELTASONE) 20 mg Oral Tablet Take 2 Tabs by mouth daily (with breakfast) for 30 days. 60 Tab 0 04/03/2015 05/03/2015 pantoprazole (PROTONIX) 40 mg Oral Tablet, Delayed Release (E.C.) Take 1 Tab by mouth daily. 30 Tab 2 04/03/2015 07/25/2017 documented in this encounter Discharge Disposition Disposition Code Departure Means Destination Home or Self Residential documented in this encounter Progress Notes * Isabela Burris, GOVERNMENT AFFAIRS SPECIALIST - 04/03/2015 4:18 PM EDT 04/03 SW- Final Note- Notified patient is on discharge and may need assistance with medications, as she was prescribed several. Reviewed medications, printed coupons for medications, total for all excluding ativan and ultram will be just under $80. Also noted patient's income is $1800 per month. SW met with patient at bedside to address medication assistance, patient alert and oriented. Proved patient with coupons, patient reports she will be able to afford the medications at discharge, as she just received check yesterday. Patient did report that she would like terminal clerk help with medications as she has significant debt. Discussed [facility], patient agreeable to SW making a referral. Referral sent to [facility]. SW then contacted regarding patient not having transportation at discharge. Advised physician noted patient is not to drive today due to taking narcotics today. Met withpatient to discuss this. Patient advised she has 3 family members meeting her at discharge, they will help her obtain prescriptions, one family member will be driving her car home. No further needs. * Rosa Isela Becerra RN - 04/03/2015 4:13 PM EDT Patient on discharge home pending she is able to find transportation. Patient states that her father will be here within the hour to take her home. Patient on discharge home per MD order. IV discontinued and paperwork completed. Discussed new medications including side effects and follow up appointments. Patient verbalized understanding. No further questions. Patient left via wheelchair. * Mirella Medina MD - 04/03/2015 12:37 PM EDT Images from the original note were not included. Adult Progress Note Admit Date: 04/02/2015 LOS: 1 day HPI: Ra Rosales is a(n)54 y.o. female admitted for Exacerbation of Crohn's disease, with fistula. Subjective: Seen today, she states feeling better and wants to go home. She does not want colonoscopy. She tolerates diet and has less abdominal pain. Scheduled Meds: ??? predniSONE 40 mg Oral Daily WM ??? pantoprazole 40 mg Oral Daily ??? sertraline 50 mg Oral Daily ??? ciprofloxacin (CIPRO) IVPB (Orderable) 400 mg Intravenous 2 times per day ??? metroNIDAZOLE 500 mg Intravenous 3 times per day ??? enoxaparin 40 mg Subcutaneous Daily Continuous Infusions: ??? sodium chloride 100 mL/hr at 04/03/15 0844 Objective: BP 116/62 mmHg Pulse 70 Temp(Src) 97.6 ??F (36.4 ??C) (Oral) Resp 20 Ht 5' 4 (1.626 m) Wt 104 lb 9.6 oz (47.446 kg) BMI 17.95 kg/m2 SpO2 93% ? No Patient not in acute distress. Neck supple, no JVD. Lungs CTA. Heart regular S1, S2 are normal. No murmur. Abd soft, NT, ND, bowel sounds are present. Ext No edema or calf pain. Neuro AAO X3. Anxious. No focal deficits. Labs: CBC: Lab Results Component Value Date WBC 8.5 04/02/2015 RBC 4.04 04/02/2015 HGB 12.5 04/02/2015 HCT 37.9 04/02/2015 MCV 93.8 04/02/2015 MCHC 33.1 04/02/2015 PLT 212 04/02/2015 BMP: Lab Results Component Value Date NA 136 04/03/2015 K 4.0 04/03/2015 CL 97* 04/03/2015 CO2 30* 04/03/2015 BUN 4* 04/03/2015 CREATININE 0.61 04/03/2015 CALCIUM 7.7* 04/03/2015 GLU 196* 04/03/2015 Coagulation: No results found for: INR, APTT Accucheck Results: Radiology results: No results found. Assessment/Plan: 1. Exacerbation of Crohn's disease. Improving. -Will change Cipro and Flagyl to oral to complete at least 21 days of treatment. -Prednisone 40 mg daily. -Patient needs GI follow up. 2.Depression. Continue Zoloft 50 mg daily. 3. Crohn's associated arthralgia. Start tramadol 50 mg Q 12 hours. -Patient is advised to see her PCP to continue to receive antalgic as needed. 4. Alcohol abuse. No active signs of withdrawal but this may be coming soon. -If patient remains in house will start CIWA later 4.Disposition. Patient is stable for discharge but she should not drive home today since she had narcotics. I discussed this extensively with her. She expressed understanding. > 25 minutes spent Mirella Median MD * You Lindo MD - 04/03/2015 8:06 AM EDT [facility] GI Progress Note Assessment/Plan: Ra Rosales is a(n)54 y.o. female admitted for work-up and treatment for Exacerbation of Crohn's disease, with fistula [555.9, 569.81]. Patient Active Problem List Diagnosis ??? Alcoholism ??? Crohn's ??? History of stomach cancer ??? Depression ??? Exacerbation of Crohn's disease We are following for Crohn's dz with perianal fistula. Plan 1. Crohns dz with perianal fistula and asc colon involvement --IVF, analgesia,antiemetics prn -- Check CRP and ESR -- Cont broad spectrum Abtics, switch to po x 3 weeks -- Switch to prednisone 40mg po daily -- await stool studies to r/o infectious etiology. -- Recommended Cscopy to assess disease extent and activity. Pt adamantly declined. She appears more interested in pain control for her arthralgia symptoms associated with Crohns dz 2. PPI for GERD therapy. 3. Advance diet as tolerated. 4. Alcohol abuse hx with labs showing mild alcoholic hepatitis -- counselled on alcohol abstinence. Ok to discharge home today, with f/u in GI office Will follow peripherally, pls call with further questions Subjective: Had an episode of vomiting, but has tolerated dinner and eating bfast Afebrile, no abd pain. C/o nerves +, anxiety + Objective: I/O last 3 completed shifts: In: 1152 [P.O.:720; I.V.:432] Out: 975 [Urine:900; Emesis/NG output:75] BP 109/75 mmHg Pulse 63 Temp(Src) 97.3 ??F (36.3 ??C) (Oral) Resp 20 Ht 5' 4 (1.626 m) Wt 104 lb 9.6 oz (47.446 kg) BMI 17.95 kg/m2 SpO2 97% ? No Physical Exam: HEENT: anicteric sclera, oropharyngeal membranes pink and moist. Lungs: CTA CVS: Heart normal S1 and S2, Abdomen: soft, nontender, positive bowel sounds. No ascites. No hepatomegaly or splenomegaly Extremities: no edema Neuro: alert and oriented x 3, no asterixis Results: Lab Results Component Value Date ALT 44* 04/02/2015 AST 136* 04/02/2015 GGT 71* 06/25/2014 ALKPHOS 185* 04/02/2015 BILIDIR 0.4* 04/02/2015 PROT 6.5 04/02/2015 LABALBU 2.6* 04/02/2015 LIPASE 38 04/02/2015 Lab Results Component Value Date WBC 8.5 04/02/2015 HGB 12.5 04/02/2015 HCT 37.9 04/02/2015 MCV 93.8 04/02/2015 PLT 212 04/02/2015 BUN/Cr/glu/ALT/AST/amyl/lip: 4/0.61/--/--/--/--/-- (04/03 0424) No results found. You Lindo MD 04/03/2015 8:06 AM Cleaning Handyman [facility] [phone] * Jasmyne Alan LPN - 04/03/2015 12:53 AM EDT Patient has been on a regular diet, ordered and ate meat loaf and corn for dinner. Nurse had reminded patient to eat slowly and take small bites due to not eating for several days and being nauseatedall day with emesis. Patient ate her dinner and had 2 episodes of emesis. Received PRN Zofran that helped per patient report. Per patient no abdominal pain except stomach muscles after vomiting. Callplaced to GI regarding emesis after eating regular diet, no call was returned. Encouraged patient to sip on clear liquids tonight and try toast and oat meal in the morning. Patient verbalized understanding. * Jasmyne Alan LPN - 04/02/2015 8:00 PM EDT Patient had an episode of emesis after eating dinner. Became very anxious, hands shaking and askingfor ativan. Patient was medicated with PRN ativan and fell asleep. Patient woke up alert and oriented and stated she felt much better. * Vivian Fatima MSW - 04/02/2015 11:38 AM EDT 04/02/15 Social Work: CC referral for hx alcohol abuse and on CIWA scale; and spouse relatively recently at this hospital. This worker spoke with patient at bedside. Pt. Is alert and oriented. Pt.States she lives with her parents and son. 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 Reid. Pt. States she wasn't on any meds ASSISTANT READING TEACHER. Pt. Doesn't have ins; was seen by FC and is pending Financial Assistance program eligibility for hospital bill only. Pt. Does get approximately $1800/mo for old pension and SS survivor's benefits per FC note. SW can assess medication assistance/[facility] referral at d/c if needed. Patient states that she drank a little when her one month ago but is no longer drinking. Substance abuse and mental health resources left for patient however she declines chemical dependency counselor consult. Pt. Has family to transport home. SW available if needed documented in this encounter H&P Notes * Mirella Medina MD - 04/02/2015 12:40 PM EDT [facility]/[place]/[facility]/[place], [place] NAME: RA ROSALES [facility]#: [id number] LOCATION/ROOM: [place] [address] FACILITY: [facility] DICTATOR: Mirella Medina HISTORY AND PHYSICAL Page 4 HISTORY AND PHYSICAL ADMISSION DATE: 04/02/2015 DATE OF : 1960 History of present illness: Ra Rosales is a 54-year-old female with medical history significant for Crohn's disease and depression. The patient came to the emergency room complaining of abdominal pain and generalized weakness. According to the patient, for the past 3 months since her , she has been getting increasingly weak because of poor appetite. Patient reports that her symptoms have been getting increasingly worse over the last few days and she has been feeling very weak. Patient has been complaining of some diffuse abdominal pain and her diarrhea, which is chronic. No fever and no blood in the stools. However, because of the progression of her symptoms, the patient decided to come to the emergency room for evaluation. Patient reports that she was diagnosed with Crohn's disease for about 34 years, but now she is not taking any medications for Crohn's. PAST MEDICAL HISTORY: Significant for Crohn's disease and depression. PAST SURGICAL HISTORY: Significant for x3. She has had several bowel surgeries. ALLERGIES: She is allergic to sulfa antibiotics, gets hives. SOCIAL HISTORY: The patient denies smoking. She drinks alcohol occasionally. She denies use of illicit drugs. MEDICATIONS: Her home medications include: Advil and Aleve, which she takes on a fairly regular basis for abdominal pain, and Zoloft 50 mg daily. FAMILY HISTORY: Family history was reviewed. There is no family history of Crohn's disease or cancer. REVIEW OF SYSTEMS: Review of systems was obtained. At this time, the patient feels better but stillweak. She has no headache or blurry vision, no dizziness or lightheadedness, no nausea or vomiting at this time. She has some degree of abdominal pain and her diarrhea continues. No chest pain and noshortness of breath or palpitation. All other systems are reviewed and are negative. PHYSICAL EXAMINATION: GENERAL: Patient is not in acute distress. VITAL SIGNS: Blood pressure is 96/61, pulse is 78, respiratory rate is 18, temperature is 98.3, andoxygen saturation is 100% on room air. HEENT: Head is atraumatic. Pupils are equal, round, and reactive to light. NECK: Supple. No JVD. LUNGS: Clear to auscultation. HEART: Regular. S1 and S2 are normal. ABDOMEN: Soft and nondistended. It is mildly tender diffusely. No rebound or guarding. EXTREMITIES: No edema or calf tenderness. NEUROLOGIC EXAM: She is alert, awake, and oriented x3. No focal neurologic deficits. SKIN: Intact. She has no rash or jaundice. Laboratory data/clinical tests: In the emergency room, her CBC showed WBC of 8.5, hemoglobin 12.5, hematocrit 37.9 and platelets 212. Chemistry: Sodium 136, potassium 3.2, chloride 96, CO2 24, BUN 6,creatinine 0.64 and glucose 91, ALT 44, AST 136, and albumin 2.6. Patient had a CT of the abdomen and pelvis that showed diffuse inflammation of the wall of the rectum with evidence of a left perianal fistula that extends from the rectum toward the left gluteal region. This fistula has enlarged from 2006 and correlation with physical examination is recommended. Focal thickening of a short segmentof the ascending colon could also represent site of Crohns flare. ASSESSMENT: A 54-year-old female with: 1. Crohn's disease flare-up with perianal fistula. 2. Depression. PLAN: 1. The patient is being admitted to the medical floor. 2. Will treat her with antibiotics . 3. Will put her on IV steroids. 4. GI has been consulted and will follow their recommendations. 5. Stool studies have been sent. Will follow the results. 6. Given the fact that the patient is taking higher dose of NSAIDs, will also treat her empiricallywith Protonix. I have discussed the diagnosis and plan of care with the patient. All her questions were answered. She expressed complete understanding and agreed to proceed. Mirella Medina MD By: shawn/brisa Job ID: [id number] Doc ID: [id number] CC: documented in this encounter Consult Notes * You Lindo MD - 04/02/2015 9:42 AM EDTAssociated Order(s): IP CONSULT TO GI GI Consultation: Ra Rosales is a 54 y.o. female asked to see us in consultation by Alejandro Reid DO (General) for evaluation of Crohn's exacerbation. Pt with hx Crohn's disease with no maintenance medications for over 20 years, past alcoholism presented to the ER early this morning for generalized body aches and fatigue, decreased eating. CT abdomen pelvis today with diffuse inflammation of rectal wall with evidence L perianal fistula extending from rectum towards L gluteal region enlarged from 2006, focal wall thickening of short segment of ascending colon. Pt vague historian, often unsure of medical history, information also obtained from chart. Reports normally has up to 10 BMs daily, but has been worse over the past month with over 20 liquid BMs daily with decreased appetite since her one month ago. After passed, also had a few weeks of drinking 3-4 vodka martinis nightly which she states she quit 1-2 weeks ago. Admits to past elevation of liver enzymes with alcohol usage. Sometimes has abdominal and back pain, but none recently. Feels she is sick because she has had a lot of stress lately dealing with 's sudden passing and sick grandmother in [place]. Was recently on antibiotics for tooth extraction. Denies abdominal pain or nausea to me, but did state became nauseated after meds in ER and vomited stomach contents x 1 here. Has occasional heartburn and gastric reflux. Records show past stomach cancer, but pt unsure if she had this, thinks a doctor might have mentioned it to her. Denies fever, kiley temesis, melena, hematochezia, constipation, family hx GI problems. Reports used to follow with at for Crohn's disease with past colostomy and ileostomy, has had EGD and colonoscopy in past about 30 years ago at she thinks. Prescriptions prior to admission Medication Sig Dispense Refill Last Dose ??? sertraline (ZOLOFT) 50 mg Oral Tablet Take 1 tablet by mouth daily. 30 tablet 2 Medication: ??? ertapenem (INVanz) IVPB 1 g Intravenous Daily ??? sodium chloride Allergies: Allergies Allergen Reactions ??? Sulfa (Sulfonamide Antibiotics) Immunizations: There is no immunization history on file for this patient. Family history, past medical history, and social history are reviewed as below. Past Medical History: Past Medical History Diagnosis Date ??? Crohn disease ??? Cancer Past Surgical History: Past Surgical History Procedure Laterality Date ??? section x2 ??? Colon surgery x11 crohns ??? Colostomy Family History: Denies GI History reviewed. No pertinent family history. Social History: History Substance Use Topics ??? Smoking status: Never Smoker ??? Smokeless tobacco: Never Used ??? Alcohol Use: Yes ROS Constitutional: Denies fever,sweats, chills or weight loss Eyes: Denies change in visual acuity HENT: Denies hearing loss or dizziness Respiratory: Denies cough or shortness of breath Cardiovascular: Denies edema or chest pain : Denies dysuria, hematuria, urgency or frequency Musculoskeletal: Positive back pain or joint pain Integument: Denies rash Neurologic: Denies headache, previous stroke, TIA, confusion Endocrine: Denies polyuria or polydipsia Lymphatic: Denies swollen glands Psychiatric: Positive depression or anxiety Hematologic: Denies previous anemia or easy bruising All other review of systems negative, except for those noted. PHYSICAL EXAM: VITAL SIGNS: BP 96/61 mmHg Pulse 78 Temp(Src) 98.3 ??F (36.8 ??C) (Oral) Resp 18 Wt 110 lb (49.896 kg) SpO2 100% ? No Date 04/02/15 0700 - 04/03/15 0659 Shift [id number] 1475-8258 7375-0863 24 Hour Total I N T A K E P.O. 120 120 Shift Total (mL/kg) 120 (2.4) 120 (2.4) O U T P U T Emesis/NG output 75 75 Shift Total (mL/kg) 75 (1.5) 75 (1.5) Weight (kg) 49.9 49.9 49.9 49.9 Constitutional: Well developed. Well nourished. Non-toxic appearance. No acute distress. HENT: Normocephalic. Atraumatic. Bilateral external ears normal, Oropharynx moist. No oral exudate.Nose normal. Eyes: No Scleral icterus Neck: No Cervical or supraclavicular nodes Lymphatic: No lymphadenopathy noted. Cardiovascular: Normal S1 and S2, Normal rhythm, No murmurs, No rubs, No gallops. Thorax & Lungs: Normal breath sounds, No respiratory distress, No wheezing, No chest tenderness. Abdomen: Soft, non-tender. Scarring from prior surgeries on abdomen. Bowel sounds are normoactive without bruits. No guarding, spasm or rebound. No hepatomegaly. No splenomegaly. No ascites Rectal: Perianal excoriations and erythema, with a draining left sided perianal fistula ++ Skin: Warm, dry. No erythema. No rash. Extremities: Intact distal pulses, No deformity. No edema. Neurologic: Alert & oriented x 3, appears anxious RESULTS Lipase 38, K+ 3.2 Lab Results Component Value Date ALT 27 06/25/2014 AST 43* 06/25/2014 GGT 71* 06/25/2014 ALKPHOS 98 06/25/2014 BILIDIR 0.1 03/14/2011 PROT 8.6* 06/25/2014 LABALBU 4.5 06/25/2014 LIPASE 38 04/02/2015 Lab Results Component Value Date WBC 8.5 04/02/2015 HGB 12.5 04/02/2015 HCT 37.9 04/02/2015 MCV 93.8 04/02/2015 PLT 212 04/02/2015 Lab Results Component Value Date CREATININE 0.64 04/02/2015 BUN 6 04/02/2015 NA 136 04/02/2015 K 3.2* 04/02/2015 CL 96* 04/02/2015 CO2 24 04/02/[address] Abdomen Pelvis W Contrast 04/02/2015 CLINICAL HISTORY: -ABDOMINAL PAIN. The patient has a history of Crohn's disease. COMPARISON: 08/22/2007. TECHNIQUE: CT ABDOMEN PELVIS W CONTRAST on Apr 02, 2015 05:12:45 AM. Oral contrast and 75 mL of intravenous Isovue-370 was administered. FINDINGS: ABDOMEN: The lung bases are clear. Thevisualized portions of the heart are normal. There [...] this region on the prior study but inflammatorychanges surround the tract on this examination which [...] is normal. The bony pelvis is unremarkable. 04/02/2015 IMPRESSION: 1. Diffuse inflammation of the wall of the rectum with evidence of a left perianal fistula that extends from the rectum towards the left gluteal region. This fistula has enlargedfrom 2006 and correlation with physical examination is recommended. 2. Focal wall thickening of a short segment of the ascending colon could also represent the site of a Crohn's flare. 3. Incidental findings as described. ASSESSMENT 1. Abnormal CT imaging with rectal and colon inflammation with evidence of L perianal fistula. 2. Nausea-just since hospitalization 3. Diarrhea-differentials include infectious colitis with recent antibiotics and hospital visits, though could be related to Crohn's exacerbation. 4. Hypokalemia 5. Past alcohol abuse with elevation of enzymes 6. GERD PLAN 1. Crohns dz with perianal fistula and asc colon involvement --IVF, analgesia -- Check CRP and ESR -- Cont IV broad spectrum Abtics -- IV solumedrol 20mg Q8H -- Will check stool studies to r/o infectious etiology. -- Recommended Cscopy to assess disease extent and activity. Pt adamantly declined. She appears more interested in pain control for her arthralgia symptoms associated with Crohns dz 2. PPI for GERD therapy. 3. Advance diet as tolerated. 4. Alcohol abuse hx -- Will check LFTs. Will reassess in am Thanks for the consult. 1. The patient indicates understanding of these issues and agrees with the plan. 2. I reviewed the patient's medical information and medical history. 3. I have reviewed the past medical, family, and social history sections including the medications and allergies listed in the above medical record. I have personally performed a face to face diagnostic evaluation of this patient, including reviewing the chief complaint, HPI, ROS as well as the past medical/social/family history sections for thispatient and performed a physical exam. The labs, radiographic studies and the plan have been reviewed. This patient was seen in coordination with Angelic Hess NP. Electronically signed by: You Lindo MD, 04/02/2015 1:41 PM documented in this encounter ED Notes * Era Pope RN - 04/02/2015 7:14 AM EDT Attempted to call report to 4SE. * Era oPpe RN - 04/02/2015 5:16 AM EDT Patient Transported to CT Scan. * Mauro Radford MD - 04/02/2015 3:44 AM EDT Chief Complaint Patient presents with ??? Abdominal Pain history of crohn's, has been having abdominal pain and generalized muscle pain for the past few days. +diarrhea, nausea, and vomiting HPI Comments: This is a 54-year-old female who presents to the emergency department for evaluation.She has a history of Crohn's disease. She states that she has not been eating for the last 3 days. She states that she thinks that she is just dehydrated, and she thinks that she is just run down . She has been grieving her who 3 months ago. She states that she has had numerous episodes of diarrhea. She has had nausea, but no vomiting. She states that she is hurting her entire abdomen as well as her entire body. No treatment prior to arrival. No fever or chills. She has had a previous colostomy, ileostomy, and 2 C-sections. The history is provided by the patient. Allergies Allergen Reactions ??? Sulfa (Sulfonamide Antibiotics) Home Medications: Prior to Admission medications Medication Sig Start Date End Date Taking? Authorizing Provider sertraline (ZOLOFT) 50 mg Oral Tablet Take 1 tablet by mouth daily. 06/25/14 Franklin, Viral V, DO Past Medical History: Past Medical History Diagnosis Date ??? Crohn disease ??? Cancer Social History: reports that she has never smoked. She has never used smokeless tobacco. She reports that she drinks alcohol. She reports that she does not use illicit drugs. Family History: No family history on file. Surgical History: Past Surgical History Procedure Laterality Date ??? section x2 ??? Colon surgery x11 crohns ??? Colostomy Review of Systems All other systems reviewed and are negative. Blood pressure 117/81, pulse 98, temperature 98.3 ??F (36.8 ??C), temperature source Oral, resp. rate 18, weight 110 lb (49.896 kg), SpO2 100 %. Physical Exam Constitutional: She appears well-developed and well-nourished. No distress. Eyes: Conjunctivae are normal. Cardiovascular: Normal rate and regular rhythm. Pulmonary/Chest: Effort normal and breath sounds normal. Abdominal: Soft. She exhibits distension. She exhibits no mass. Bowel sounds are increased. There is generalized tenderness. There is no rebound. Musculoskeletal: She exhibits no edema. Neurological: She is alert. Psychiatric: Her mood appears anxious. She exhibits a depressed mood. Procedures Radiology/EKG/Labs: Results for orders placed or performed during the hospital encounter of 04/02/15 CT [...] Crohn's flare. 3. Incidental findings as described. CBC WITH AUTO DIFF Result Value Ref Range WBC 8.5 4.0 - 11.0 x10(3)/mcL RBC 4.04 3.80 - 5.10 x10(6)/mcL Hgb 12.5 12.0 - 15.6 gm/dL Hct 37.9 35.7 - 45.9 % MCV 93.8 82.5 - 99.8 fL MCH 31.0 27.0 - 34.3 pg MCHC 33.1 32.1 - 35.3 gm/dL RDW 14.9 11.5 - 15.0 % Platelet 212 144 - 423 x10(3)/mcL MPV 6.6 (L) 6.8 - 10.8 fL BASIC METABOLIC PANEL Result Value Ref Range Sodium 136 136 - 145 mmol/L Potassium 3.2 (L) 3.5 - 5.0 mmol/L Chloride 96 (L) 98 - 107 mmol/L Total CO2 24 22 - 29 mmol/L Anion Gap 16 7 - 16 mmol/L Calcium 7.9 (L) 8.6 - 10.2 mg/dL Glucose Lvl 91 74 - 100 mg/dL BUN 6 6 - 20 mg/dL Creatinine 0.64 0.51 - 1.30 mg/dL GFR Afr Am >60 GFR Non Afr Am >60 LIPASE LEVEL Result Value Ref Range Lipase Lvl 38 13 - 60 IU/L DIFFERENTIAL Result Value Ref Range Neut Percent 78.5 % Lymph Percent 10.4 % [place] Percent 10.5 % Eos Percent 0.3 % Baso Percent 0.3 % Neut# 6.7 1.8 - 7.7 x10(3)/mcL Lymph# 0.9 0.6 - 4.8 x10(3)/mcL [place]# 0.9 0.0 - 1.3 x10(3)/mcL Eos# 0.0 0.0 - 0.5 x10(3)/mcL Baso# 0.0 0.0 - 0.2 x10(3)/mcL ED Course: Appropriate laboratory and radiology studies reviewed The patient was seen and examined. She was given morphine and Zofran for discomfort as well as IV fluids. Her CT demonstrated the above results. She was given IV Solu-Medrol, and started on IV Invanz. I tried to load her with oral potassium, however she was unable to tolerate by mouth medications. IV KCl has been ordered. I have spoken with Shena Aguilera, who is covering for the hospitalist. She agrees to admit. I have also spoken with Dr. Gallardo from GI. They agreed to consult. The patient will be admitted for further evaluation and treatment. ED Clinical Impression: Acute Crohn's exacerbation with fistula Depression Acute mild hypokalemia Critical Care time Condition at Discharge/Transfer from Department: Stable This chart was completed using voice recognition technology and may contain unintended errors Mauro Radford MD 04/02/15 [id number] documented in this encounter Miscellaneous Notes * Plan of Care - Suri Sim RN - 04/03/2015 12:54 PM EDT Problem: Safety: Fall Risk Goal: Patient will remain free of falls and injury Outcome: Progressing Non skid socks on Problem: Pain Management Goal: The patient???s stated pain goal will be reached and maintained. The patient???s stated pain goal will be reached and maintained Outcome: Progressing Pain medication administered * H&P Update - Mirella Medina MD - 04/02/2015 12:44 PM EDT Patient seen and examined. Full H&P dictated. Impression 1.Exacerbation of Crohn's disease. Could be triggered by stress 2.Depression Plan Cipro 400 mg BID and Flagyl 500 mg Q 8 hours Stool studies Solumedrol 40 mg Q 8 hours GI consulted protonix 40 mg daily ( patient takes a lot of NSAID's at home ) Resume home Zolft Mirella Medina MD * Plan of Care - Vivian Fatima MSW - 04/02/2015 11:56 AM EDT Problem: Disposition/Transition of Care Goal: Patient will have a plan for disposition or transition to next level of care Outcome: Completed Date Met: 04/02/15 Discharge planning discussed with patient. * Plan of Care - Rosa Isela Becerra RN - 04/02/2015 11:01 AM EDT Problem: Nutrition Imbalance - 83 Related to disease process Goal: Nutritional needs will be maintained Outcome: Not Progressing Variance: Slow or Unresponsive to Therapy documented in this encounter Plan of Treatment Upcoming Encounters Date Type Department Care Team (Late st Contact Info) Description 09/11/2024 1:45 PM EST Office Visit [facility] [address] [facility], [place] [id number] Swapnil Lopez MD [address] [place] [phone] 10/21/2024 2:00 PM EST Appointment [facility] [address] [place] [address] Jacky Shirley MD [address] [facility] [place], [place] [id number] 10/23/2024 1:45 PM EST Appointment [facility] [place], [place] [id number] Olena Darby APRN [address] [place] [address] [place] [address] Scheduled Orders Name Type Priority Associated Diagnoses Orde r Schedule IP CONSULT TO HOSPITALIST Consult Routine One Time for 1 Occurrences starting 04/02/2015 until 04/02/2015 C DIFF TOXIN DNA Microbiology Routine Routin e - Once for 1 Occurrences starting 04/02/2015 until 04/02/2015 FECAL WHITE BLOOD CELLS Microbiology Routine Routine - Once f or 1 Occurrences starting 04/02/2015 until 04/02/2015 OVA AND PARASITE BASIC Microbiology Routine Routine - Once for 1 Occurrences starting 04/02/2015 until 04/02/2015 STOOL CULTURE Microbiology Routine Routine - Once for 1 Occurrences starting 04/02/2015 until 04/02/2015 IP CONSULT TO NUTRITION Consult Routine One Time for 1 Occurrences starting 04/02/2015 until 04/02/2015 documented as of this encounter Procedures Procedure Name Priority Date/Time Associated Diagnosis Comments SCANNED RHYTHM STRIPS 04/06/2015 11:43 PM EDT BASIC METABOLIC PANEL Routine 04/03/2015 4:24 AM EDT SEDIMENTATION RATE AUTOMATED Routine 04/02/2015 10:40 AM EDT C-REACTIVE PROTEIN HIGH SENSITIVITY Routine 04/02/2015 10:40 AM EDT HEPATIC FUNCTION PANEL Routine 04/02/2015 10:40 AM EDT IP CONSULT TO GI Routine 04/02/2015 7:49 AM EDT Procedure Note - You Lindo MD - 04/02/2015 9:42 AM EDTThis note is in progress. GI Consultation: Ra Rosales is a 54 y.o. female asked to see us in consultation Alejandro Steven DO (General) for evaluation of Crohn's exacerbation. Pt with hx Crohn's disease with no maintenance medications for over 20years, past alcoholism presented to the ER early this morning forgeneralized body aches and fatigue, decreased eating. CT abdomen pelvistoday with diffuse inflammation of rectal wall with evidence L perianalfistula extending from rectum towards L gluteal region enlarged from 2006,focal wall thickening of short segment of ascending colon. Pt vaguehistorian, often unsure of medical history, information also obtained fromchart. Reports normally has up to 10 BMs daily, but has been worse overthe past month with over 20 liquid BMs daily with decreased appetite sinceher one month ago. After passed, also had a few weeksof drinking 3-4 vodka martinis nightly which she states she quit 1-2 weeksago. Admits to past elevation of liver enzymes with alcohol usage.Sometimes has abdominal and back pain, but none recently. Feels she issick because she has had a lot of stress lately dealing with 'ssudden passing and sick grandmother in [place]. Was recently on antibiotics fortooth extraction. Denies abdominal pain or nausea to me, but did statebecame nauseated after meds in ER and vomited stomach contents x 1 here.Has occasional heartburn and gastric reflux. Records show past stomachcancer, but pt unsure if she had this, thinks a doctor might havementioned it to her. Denies fever, hematemesis, melena, hematochezia,constipation, family hx GI problems. Reports used to follow with at for Crohn's disease with past colostomy and ileostomy, hashad EGD and colonoscopy in past about 30 years ago at she thinks. Prescriptions prior to admission Medication Sig Dispense Refill Last Dose ? ? sertraline (ZOLOFT) 50 mg Oral Tablet Take 1 tablet by mouth daily. 30tablet 2 Medication: ? ? ertapenem (INVanz) IVPB 1 g Intravenous Daily ? ? sodium chloride Allergies: Allergies Allergen Reactions ? ? Sulfa (Sulfonamide Antibiotics) Immunizations: There is no immunization history on file for this patient. Family history, past medical history, and social history are reviewedas below. Past Medical History: Past Medical History Diagnosis Date ? ? Crohn disease ? ? Cancer Past Surgical History: Past Surgical History Procedure Laterality Date ? ? section x2 ? ? Colon surgery x11 crohns ? ? Colostomy Family History: Denies GI History reviewed. No pertinent family history. Social History: History Substance Use Topics ? ? Smoking status: Never Smoker ? ? Smokeless tobacco: Never Used ? ? Alcohol Use: Yes ROS Constitutional: Denies fever,sweats, chills or weight loss Eyes: Denies change in visual acuity HENT: Denies hearing loss or dizziness Respiratory: Denies cough or shortness of breath Cardiovascular: Denies edema or chest pain : Denies dysuria, hematuria, urgency or frequency Musculoskeletal: Positive back pain or joint pain Integument: Denies rash Neurologic: Denies headache, previous stroke, TIA, confusion Endocrine: Denies polyuria or polydipsia Lymphatic: Denies swollen glands Psychiatric: Positive depression or anxiety Hematologic: Denies previous anemia or easy bruising All other review of systems negative, except for those noted. PHYSICAL EXAM: VITAL SIGNS: BP 96/61 mmHg Pulse 78 Temp(Src) 98.3 ??F (36.8 ??C) (Oral) Resp 18 Wt 110 lb (49.896 kg) SpO2 100% ? No Date 04/02/15 0700 - 04/03/15 0659 Shift [id number] 5072-8018 7216-2089 24 Hour Total I N T A K E P.O. 120 120 Shift Total (mL/kg) 120 (2.4) 120 (2.4) O U T P U T Emesis/NG output 75 75 Shift Total (mL/kg) 75 (1.5) 75 (1.5) Weight (kg) 49.9 49.9 49.9 49.9 Constitutional: Well developed. Well nourished. Non-toxic appearance.No acute distress. HENT: Normocephalic. Atraumatic. Bilateral external ears normal,Oropharynx moist. No oral exudate. Nose normal. Eyes: No Scleral icterus Neck: No Cervical or supraclavicular nodes Lymphatic: No lymphadenopathy noted. Cardiovascular: Normal S1 and S2, Normal rhythm, No murmurs, No rubs, Nogallops. Thorax & Lungs: Normal breath sounds, No respiratory distress, [place]zing, No chest tenderness. Abdomen: Soft, non-tender. Scarring from prior surgeries on abdomen. Bowelsounds are normoactive without bruits. No guarding, spasm or rebound.No hepatomegaly. No splenomegaly. No ascites Rectal: Perianal excoriations and erythema, with a draining left sidedperianal fistula ++ Skin: Warm, dry. No erythema. No rash. Extremities: Intact distal pulses, No deformity. No edema. Neurologic: Alert & oriented x 3, appears anxious RESULTS Lipase 38, K+ 3.2 Lab Results Component Value Date ALT 27 06/25/2014 AST 43* 06/25/2014 GGT 71* 06/25/2014 ALKPHOS 98 06/25/2014 BILIDIR 0.1 03/14/2011 PROT 8.6* 06/25/2014 LABALBU 4.5 06/25/2014 LIPASE 38 04/02/2015 Lab Results Component Value Date WBC 8.5 04/02/2015 HGB 12.5 04/02/2015 HCT 37.9 04/02/2015 MCV 93.8 04/02/2015 PLT 212 04/02/2015 Lab Results Component Value Date CREATININE 0.64 04/02/2015 BUN 6 04/02/2015 NA 136 04/02/2015 K 3.2* 04/02/2015 CL 96* 04/02/2015 CO2 24 04/02/[address] Abdomen Pelvis W Contrast 04/02/2015 CLINICAL HISTORY: -ABDOMINAL PAIN. The patient has a history ofCrohn's disease. COMPARISON: 08/22/2007. TECHNIQUE: CT ABDOMEN PELVIS WCONTRAST on Apr 02, 2015 05:12:45 AM. Oral contrast and 75 mL ofintravenous Isovue-370 was administered. FINDINGS: ABDOMEN: The lungbases are clear. The visualized portions of the heart are normal. Thereis diffuse fatty infiltration of the liver. Gallstones are in thegallbladder. The spleen, pancreas, adrenal glands, and kidneys arenormal. The caliber and wall thickness of the small bowel are normal.There are no enlarged abdominal lymph nodes or free fluid. The caliber ofthe aorta is normal. The spine is unremarkable. PELVIS: There is diffusewall thickening of the rectum with evidence of a perianal fistulaextending from the rectum towards the left gluteal region. A tract hasbeen shown in this region on the prior study but inflammatory changessurround the tract on this examination which has enlarged from 2006.There is also focal wall thickening of a short segment of ascendingcolon. The appendix is not visualized and likely has been removed. Thereare no enlarged pelvic lymph nodes or free fluid. There is air within thevagina but no definite findings of a fistula. The urinary bladder isnormal. The bony pelvis is unremarkable. 04/02/2015 IMPRESSION: 1. Diffuse inflammation of the wall of the rectumwith evidence of a left perianal fistula that extends from the rectumtowards the left gluteal region. This fistula has enlarged from 2006 andcorrelation with physical examination is recommended. 2. Focal wallthickening of a short segment of the ascending colon could also representthe site of a Crohn's flare. 3. Incidental findings as described. ASSESSMENT 1. Abnormal CT imaging with rectal and colon inflammation with evidenceof L perianal fistula. 2. Nausea-just since hospitalization 3. Diarrhea-differentials include infectious colitis with recentantibiotics and hospital visits, though could be related to Crohn'sexacerbation. 4. Hypokalemia 5. Past alcohol abuse with elevation of enzymes 6. GERD PLAN 1. Crohns dz with perianal fistula and asc colon involvement --IVF, analgesia -- Check CRP and ESR -- Cont IV broad spectrum Abtics -- IV solumedrol 20mg Q8H -- Will check stool studies to r/o infectious etiology. -- Recommended Cscopy to assess disease extent and activity. Pt adamantlydeclined. She appears more interested in pain control for her arthralgia symptomsassociated with Crohns dz 2. PPI for GERD therapy. 3. Advance diet as tolerated. 4. Alcohol abuse hx -- Will check LFTs. Will reassess in am Thanks for the consult. 1. The patient indicates understanding of these issues and agrees withthe plan. 2. I reviewed the patient's medical information and medical history. 3. I have reviewed the past medical, family, and social history sectionsincluding the medications and allergies listed in the above medicalrecord. I have personally performed a face to face diagnostic evaluation of thispatient, including reviewing the chief complaint, HPI, ROS as well as thepast medical/social/family history sections for this patient and performeda physical exam. The labs, radiographic studies and the plan have beenreviewed. This patient was seen in coordination with Angelic Hess NP. Electronically signed by: You Lindo MD, 04/02/2015 1:[address] ABDOMEN PELVIS W CONTRAST STAT 04/02/2015 5:12 AM EDT DIFFERENTIAL STAT 04/02/2015 3:12 AM EDT CBC WITH DIFF STAT 04/02/2015 3:12 AM EDT LIPASE LEVEL STAT 04/02/2015 3:12 AM EDT BASIC METABOLIC PANEL STAT 04/02/2015 3:12 AM EDT documented in this encounter Results * SCANNED RHYTHM STRIPS (04/06/2015 11:43 PM EDT) Anatomical Region Laterality Modality Other 04/06/2015 11:4 3 PM EDT us Unknown Unknown IMG ECG ORDERABLES Final Result * (ABNORMAL) BASIC METABOLIC PANEL (04/03/2015 4:24 AM EDT) Sodium 136 136 - 145 mmol/L [facility] Potassium 4.0 3.5 - 5.0 mmol/L [facility] Chloride 97(L) 98 - 107 mmol/L [facility] Total CO2 30(H) 22 - 29 mmol/L [facility] Anion Gap 9 7 - 16 mmol/L [facility] Calcium 7.7(L) 8.6 - 10.2 mg/dL [facility] Glucose Lvl 196(H) 74 - 100 mg/dL [facility] BUN 4(L) 6 - 20 mg/dL [facility] Creatinine 0.61 0.51 - 1.30 mg/dL [facility] GFR Afr Am >60 [facility] GFR Non Afr Am >60 [facility] Blood specimen (specimen) UPPER LIMB STRUCTURE / Unknown 04/03/2015 4:24 AM EDT 04/03/2015 4:55 AM EDT Mirella Medina MD CHEMISTRY ORDERABLES Edited Resu lt - Final Performing Organization Address [facility] Co de Phone Number [facility] [address] [place] [address] * (ABNORMAL) HEPATIC FUNCTION PANEL (04/02/2015 10:40 AM EDT) Pathologist [facility] Total Protein 6.5 6.4 - 8.3 gm/dL [facility] Albumin 2.6(L) 3.5 - 5.2 gm/dL [facility] Bili Direct 0.4(H) 0.0 - 0.3 mg/dL [facility] Bili Total 0.8 0.1 - 1.3 mg/dL [facility] AST 136(H) <=40 IU/L [facility] ALT 44(H) <=41 IU/L [facility] Alk Phos 185(H) 35 - 104 IU/L [facility] Blood specimen (specimen) 04/02/2015 10:40 AM EDT 04/02/2015 10:46 AM EDT us Angelic Hess APRN CHEMISTRY ORDERABLES Final Re sult Performing Organization Address [facility]/ZIP Co de Phone Number [facility] [address] [place] [address] * C-REACTIVE PROTEIN HIGH SENSITIVITY (04/02/2015 10:40 AM EDT) Pathologist [facility] CRP-HS 12.49 mg/L [facility] Comment: hsCRP Level ?Relative Risk ? < 1.0 ?Low ??1.0 - 3.0 ? Average ?? > 3.0 ?High Blood specimen (specimen) 04/02/2015 10:40 AM EDT 04/02/2015 12:54 PM EDT us Angelic Hess SAFETY ENGINEER CHEMISTRY ORDERABLES Final Re sult Performing Organization Address [facility] de Phone Number [facility] [address] [place] [address] * (ABNORMAL) SEDIMENTATION RATE AUTOMATED (04/02/2015 10:40 AM EDT) Sed Rate 36(H) 0 - 30 mm/hr [facility] Blood specimen (specimen) 04/02/2015 10:40 AM EDT 04/02/2015 10:46 AM EDT us Angelic Hess SAFETY ENGINEER HEMATOLOGY ORDERABLES Final R esult Performing Organization Address [facility] de Phone Number [facility] [address] [place] [address] * CT ABDOMEN PELVIS W CONTRAST (04/02/2015 5:12 AM EDT) Anatomical Region Laterality Modality Abdomen, Chest, Pelvis, Hip Comp uted Tomography 04/02/2015 2:28 AM EDT Impressions 04/02/2015 5:17 AM EDT IMPRESSION: 1. Diffuse inflammation of the wall [...] Crohn's flare. 3. Incidental findings as described. Narrative 04/02/2015 5:17 AM EDT CLINICAL HISTORY: -ABDOMINAL PAIN. The patient has [...] is normal. The bony pelvis is unremarkable. Procedure Note Ge Locke MD - 04/02/2015 CLINICAL HISTORY: -ABDOMINAL PAIN. The patient has a history of Crohn'sdisease. COMPARISON: 08/22/2007. TECHNIQUE: CT ABDOMEN PELVIS W CONTRAST on Apr 02, 2015 05:12:45 AM. Oralcontrast and 75 mL of intravenous Isovue-370 was administered. FINDINGS: ABDOMEN: The lung bases are clear. The visualized portions of the heartare normal. There is diffuse fatty infiltration of the liver. Gallstones are in thegallbladder. The spleen, pancreas, adrenal glands, and kidneys are normal. The caliber andwall thickness of the small bowel are normal. There are no enlarged abdominal lymph nodes orfree fluid. The caliber of the aorta is normal. The spine is unremarkable. PELVIS: There is diffuse wall thickening of the rectum with evidence of aperianal fistula extending from the rectum towards the left gluteal region. A tract hasbeen shown in this region on the prior study but inflammatory changes surround the tract onthis examination which has enlarged from 2006. There is also focal wall thickening of a shortsegment of ascending colon. The appendix is not visualized and likely has been removed. There are no enlarged pelvic lymph nodes or free fluid. There is airwithin the vagina but no definite findings of a fistula. The urinary bladder is normal. The bonypelvis is unremarkable. IMPRESSION: 1. Diffuse inflammation of the wall of the rectum with evidence of a leftperianal fistula that extends from the rectum towards the left gluteal region. This fistula hasenlarged from 2006 and correlation with physical examination is recommended. 2. Focal wall thickening of a short segment of the ascending colon couldalso represent the site of a Crohn's flare. 3. Incidental findings as described. us Mauro Radford MD IMG CT ORDERABLES Final Resu lt * DIFFERENTIAL (04/02/2015 3:12 AM EDT) Neut Percent 78.5 % [facility] Lymph Percent 10.4 % [facility] [place] Percent 10.5 % [facility] Eos Percent 0.3 % [facility] Baso Percent 0.3 % [facility] Neut# 6.7 1.8 - 7.7 x10(3)/mcL [facility] Lymph# 0.9 0.6 - 4.8 x10(3)/mcL [facility] [place]# 0.9 0.0 - 1.3 x10(3)/mcL [facility] Eos# 0.0 0.0 - 0.5 x10(3)/mcL [facility] Baso# 0.0 0.0 - 0.2 x10(3)/mcL [facility] Blood specimen (specimen) 04/02/2015 3:12 AM EDT 04/02/2015 3:23 AM EDT us Mauro Radford MD HEMATOLOGY ORDERABLES Final Result [facility] [address] [place] [address] * LIPASE LEVEL (04/02/2015 3:12 AM EDT) Lipase Lvl 38 13 - 60 IU/L [facility] Blood specimen (specimen) UPPER LIMB STRUCTURE / Unknown 04/02/2015 3:12 AM EDT 04/02/2015 3:23 AM EDT us Mauro Radford MD CHEMISTRY ORDERABLES Final R esult Performing Organization Address City/[facility]/ZIP Co de Phone Number [facility] [address] [place] [address] * (ABNORMAL) BASIC METABOLIC PANEL (04/02/2015 3:12 AM EDT) Pathologist [facility] Sodium 136 136 - 145 mmol/L [facility] Potassium 3.2(L) 3.5 - 5.0 mmol/L [facility] Chloride 96(L) 98 - 107 mmol/L [facility] Total CO2 24 22 - 29 mmol/L [facility] Anion Gap 16 7 - 16 mmol/L [facility] Calcium 7.9(L) 8.6 - 10.2 mg/dL [facility] Glucose Lvl 91 74 - 100 mg/dL [facility] BUN 6 6 - 20 mg/dL [facility] Creatinine 0.64 0.51 - 1.30 mg/dL [facility] GFR Afr Am >60 [facility] GFR Non Afr Am >60 [facility] Blood specimen (specimen) UPPER LIMB STRUCTURE / Unknown 04/02/2015 3:12 AM EDT 04/02/2015 3:23 AM EDT us Mauro Radford MD CHEMISTRY ORDERABLES Edited Result - Final Performing Organization Address [facility]/ZIP Co de Phone Number [facility] [address] [place] [address] * (ABNORMAL) CBC WITH AUTO DIFF (04/02/2015 3:12 AM EDT) Pathologist [facility] WBC 8.5 4.0 - 11.0 x10(3)/mcL [facility] RBC 4.04 3.80 - 5.10 x10(6)/mcL [facility] Hgb 12.5 12.0 - 15.6 gm/dL [facility] Hct 37.9 35.7 - 45.9 % [facility] MCV 93.8 82.5 - 99.8 fL [facility] MCH 31.0 27.0 - 34.3 pg [facility] MCHC 33.1 32.1 - 35.3 gm/dL [facility] RDW 14.9 11.5 - 15.0 % [facility] Platelet 212 144 - 423 x10(3)/mcL [facility] MPV 6.6(L) 6.8 - 10.8 fL [facility] Blood specimen (specimen) UPPER LIMB STRUCTURE / Unknown 04/02/2015 3:12 AM EDT 04/02/2015 3:23 AM EDT us Mauro Radford MD HEMATOLOGY ORDERABLES Final Result [facility] [address] [place] [address] documented in this encounter Visit Diagnoses Diagnosis Exacerbation of Crohn's disease, with fistula (HCC)- Primary IRMA (generalized anxiety disorder) Generalized anxiety disorder Exacerbation of Crohn's disease (HCC) Regional enteritis of unspecified site Depression Depressive disorder, not elsewhere classified documented in this encounter Admitting Diagnoses Diagnosis Exacerbation of Crohn's disease (HCC) Regional enteritis of unspecified site documented in this encounter Administered Medications Inactive Administered Medications - up to 1 most recent administrations Medication Order MAR Action Action Date Dose Rate Site 0.9 % NaCl infusion Intravenous, at 100 mL/hr, CONTINUOUS, Starting on Mon04/02/15 at 0930, Until Mon04/03/15 at 2225 New Bag 04/03/2015 8:44 AM EDT 100 mL/hr ciprofloxacin in 5 % dextrose (CIPRO) IVPB 400 mg 400 mg, Intravenous, EVERY 12 HOURS SCHEDULED (2 times per day), First dose on Mon04/02/15 at 1415, Until Discontinued, Administer over 60 Minutes IV Started 04/03/2015 8:45 AM EDT 400 mg 200 mL/hr enoxaparin (LOVENOX) injection 40 mg 40 mg, Subcutaneous, DAILY, First dose on Mon04/02/15 at 1530, Until Discontinued Given 04/03/2015 8:54 AM EDT 40 mg ertapenem (INVanz) 1 g in sodium chloride 0.9 % 50 mL IVPB 1 g, Intravenous, EVERY 24 HOURS SCHEDULED (Daily), First dose on Mon04/02/15 at 0600, Until Discontinued, Administer over 30 Minutes IV Started 04/02/2015 6:50 AM EDT 1 g 100 mL/hr iopamidol (ISOVUE-300) oral contrast 30 mL 30 mL, Oral, ONCE, 1 dose, On Ashlie 04/02/15 at 0230 Given 04/02/2015 2:54 AM EDT 30 mL iopamidol (ISOVUE-370) 76 % injection (LOW) 75 mL 75 mL, Intravenous, ONCE PRN, 1 dose, Starting on Ashlie 04/02/15 at 0512, Until Mon04/02/15 at 0510, Radiology Procedure, VESICANT , Radiology Given 04/02/2015 5:10 AM EDT 75 mL LORazepam (ATIVAN) injection 1-2 mg 1-2 mg, Intravenous, EVERY 2 HOURS PRN, Starting on Mon04/02/15 at 0749, Until Mon04/03/15 at 2225, Anxiety, Withdrawal Symptoms, Agitation, VESICANT Given 04/03/2015 8:50 AM EDT 1 mg methylPREDNISolone sodium succinate (Solu-MEDROL) 125 mg/2 mL injection 125 mg 125 mg, Intravenous, ONCE, 1 dose, On Ashlie 04/02/15 at 0600 Given 04/02/2015 6:48 AM EDT 125 mg methylPREDNISolone sodium succinate (Solu-MEDROL) 40 mg/mL injection 20 mg 20 mg, Intravenous, EVERY 8 HOURS SCHEDULED (3 times per day), First dose (after last modification) on Ashlie 04/02/15 at 1415, Until Discontinued Given 04/03/2015 6:01 AM EDT 20 mg metroNIDAZOLE (FLAGYL) IVPB 500 mg 500 mg, Intravenous, EVERY 8 HOURS SCHEDULED (3 times per day), First dose on Ashlie 04/02/15 at 1415, Until Discontinued, Administer over 30 Minutes, VESICANT IV Started 04/03/2015 2:02 PM EDT 500 mg 200 mL/hr morphine injection 4 mg 4 mg, Intravenous, EVERY 4 HOURS PRN, Starting on Ashlie 04/02/15 at 0651, Until Mon04/03/15 at 2225, Pain, Begin with lowest dose unless otherwise directed. Reassess pain in 15 minutes. If pain unrelieved, remainder of dose may be given to patient. Given 04/03/2015 10:30 AM EDT 4 mg morphine injection 8 mg 8 mg, Intravenous, ONCE, 1 dose, On Ashlie 04/02/15 at 0230 Given 04/02/2015 2:53 AM EDT 8 mg ondansetron (ZOFRAN) 4 mg/2 mL injection 4 mg 4 mg, Intravenous, ONCE, 1 dose, On Mon04/02/15 at 0230 Given 04/02/2015 2:51 AM EDT 4 mg ondansetron (ZOFRAN) 4 mg/2 mL injection 4 mg 4 mg, Intravenous, EVERY 6 HOURS PRN, Starting on Mon04/02/15 at 0750, Until Mon04/02/15 at 1538, Nausea Given 04/02/2015 1:37 PM EDT 4 mg ondansetron (ZOFRAN) 4 mg/2 mL injection 4 mg 4 mg, Intravenous, EVERY 4 HOURS PRN, Starting on Mon04/02/15 at 1545, Until Mon04/03/15 at 2225, Nausea Given 04/03/2015 10:27 AM EDT 4 mg pantoprazole (PROTONIX) tablet 40 mg 40 mg, Oral, DAILY, First dose on Mon04/02/15 at 1130, Until Discontinued Given 04/03/2015 8:52 AM EDT 40 mg potassium chloride (K-DUR) tablet 40 mEq 40 mEq, Oral, ONCE, 1 dose, On Mon04/02/15 at 0400 Given 04/02/2015 5:52 AM EDT 10 mEq potassium chloride 10 mEq in 100 mL IVPB 10 mEq, Intravenous, EVERY 1 HOUR, 1 dose, First dose on Ashlie 04/02/15 at 0700, Administer over 60 Minutes, Infuse 2 x KCl 10 mEq IVPB for a total dose of 20 mEq KCl. VESICANT IV Started 04/02/2015 7:21 AM EDT 10 mEq 100 mL/hr potassium chloride 10 mEq in 100 mL IVPB 10 mEq, Intravenous, EVERY 1 HOUR, 1 dose, First dose on Ashlie 04/02/15 at 0800, Administer over 60 Minutes, Infuse 2 x KCl 10 mEq IVPB for a total dose of 20 mEq KCl. VESICANT IV Started 04/02/2015 11:57 AM EDT 10 mEq 100 mL/hr predniSONE (DELTASONE) tablet 40 mg 40 mg, Oral, DAILY WITH MEAL, First dose on Mon04/03/15 at 0945, Until Discontinued, Start 40 mg daily Given 04/03/2015 10:34 AM EDT 40 mg sodium chloride 0.9 % 1,000 mL IV bolus Intravenous, ONCE, 1 dose, On Ashlie 04/02/15 at 0230 IV Started 04/02/2015 2:51 AM EDT documented in this encounter Discontinued Medications Medication Sig Discontinue Reason Start Date End Da te sertraline (ZOLOFT) 50 mg Oral TabletIndications:IRMA (generalized anxiety disorder) Take 1 tablet by mouth daily. 06/25/2014 04/03/2015 documented as of this encounter Active and Recently Administered Medications Times are shown in EDT. Scheduled Medication Order 04/01/2015 04/02/2015 04/03/2015 ciprofloxacin in 5 % dextrose (CIPRO) IVPB 400 mg (CANCELED) 400 mg, Intravenous, EVERY 12 HOURS SCHEDULED (2 times per day), First dose on Ashlie 04/02/15 at 1415, Until Discontinued, Administer over 60 Minutes 1617 (IV Started - Provider: Jasmyne Alan LPN)1741 (IV STOP - Provider: Jasmyne Alan LPN)2015 (IV Started - Provider: Jasmyne Alan LPN)2148 (IV STOP - Provider: Jasmyne Alan LPN) 0845 (IV Started - Provider: Suri Sim RN)0945 (IV STOP - Provider: Suri Sim RN) enoxaparin (LOVENOX) injection 40 mg (CANCELED) 40 mg, Subcutaneous, DAILY, First dose on Ashlie 04/02/15 at 1530, Until Discontinued 2006 (Given - Provider: Jasmyne Alan LPN) 0854 (Given - Provider: Suri Sim RN) ertapenem (INVanz) 1 g in sodium chloride 0.9 % 50 mL IVPB (CANCELED) 1 g, Intravenous, EVERY 24 HOURS SCHEDULED (Daily), First dose on Ashlie 04/02/15 at 0600, Until Discontinued, Administer over 30 Minutes 0650 (IV Started - Provider: Era Pope, ANGE)0715 (IV STOP - Provider: Ronit Alexandre RN) iopamidol (ISOVUE-300) oral contrast 30 mL (COMPLETED) 30 mL, Oral, ONCE, 1 dose, On Ashlie 04/02/15 at 0230 0254 (Given - Provider: Era Pope RN) methylPREDNISolone sodium succinate (Solu-MEDROL) 125 mg/2 mL injection 125 mg (COMPLETED) 125 mg, Intravenous, ONCE, 1 dose, On Ashlie 04/02/15 at 0600 0648 (Given - Provider: Era Pope RN) methylPREDNISolone sodium succinate (Solu-MEDROL) 40 mg/mL injection 20 mg (CANCELED) 20 mg, Intravenous, EVERY 8 HOURS SCHEDULED (3 times per day), First dose (after last modification) on Ashlie 04/02/15 at 1415, Until Discontinued 1415 (Given - Provider: Rosa Isela Becerra RN)2148 (Given - Provider: Jasmyne Alan LPN) 0601 (Given - Provider: Lukasz Hernandez RN) metroNIDAZOLE (FLAGYL) IVPB 500 mg (CANCELED) 500 mg, Intravenous, EVERY 8 HOURS SCHEDULED (3 times per day), First dose on Ashlie 04/02/15 at 1415, Until Discontinued, Administer over 30 Minutes, VESICANT 1338 (IV Started - Provider: Mile Mendiola RN)1408 (IV STOP - Provider: Rosa Isela Becerra RN)2150 (IV Started - Provider: Jasmyne Alan LPN)2237 (IV STOP - Provider: Jasmyne Alan LPN) 0603 (IV Started - Provider: Lukasz Hernandez RN)0633 (IV STOP - Provider: Rosa Isela Becerra RN)1402 (IV Started - Provider: Suri Sim RN)1432 (IV STOP - Provider: Suri Sim RN) morphine injection 8 mg (COMPLETED) 8 mg, Intravenous, ONCE, 1 dose, On Ashlie 04/02/15 at 0230 0253 (Given - Provider: Era Pope RN) ondansetron (ZOFRAN) 4 mg/2 mL injection 4 mg (COMPLETED) 4 mg, Intravenous, ONCE, 1 dose, On Ashlie 04/02/15 at 0230 0251 (Given - Provider: Era Pope RN) pantoprazole (PROTONIX) tablet 40 mg 40 mg, Oral, DAILY, First dose on Ashlie 04/02/15 at 1130, Until Discontinued 1130 (Not Given - Provider: Rosa Isela Becerra RN - Reason: NPO) 0852 (Given - Provider: Suri Sim RN) potassium chloride (K-DUR) tablet 40 mEq (COMPLETED) 40 mEq, Oral, ONCE, 1 dose, On Ashlie 04/02/15 at 0400 0552 (Given - Provider: Era Pope RN - Comment: waiting for pt to have CT ABD, pt states the first pill is stuck in her throat and she has trouble swallowing pills. Dr. Prabhakar moses.) potassium chloride 10 mEq in 100 mL IVPB (COMPLETED)(Linked Group 1) 10 mEq, Intravenous, EVERY 1 HOUR, 1 dose, First dose on Ashlie 04/02/15 at 0700, Administer over 60 Minutes, Infuse 2 x KCl 10 mEq IVPB for a total dose of 20 mEq KCl. VESICANT 0721 (IV Started - Provider: Ronit Alexandre RN)0740 (Handoff - Provider: Ronit Alexandre RN)0821 (IV STOP - Provider: Rosa Isela Becerra RN) potassium chloride 10 mEq in 100 mL IVPB (COMPLETED)(Linked Group 1) 10 mEq, Intravenous, EVERY 1 HOUR, 1 dose, First dose on Ashlie 04/02/15 at 0800, Administer over 60 Minutes, Infuse 2 x KCl 10 mEq IVPB for a total dose of 20 mEq KCl. VESICANT 0800 (Not Given - Provider: Rosa Isela Becerra RN - Reason: Contraindicated)1157 (IV Started - Provider: Rosa Isela Becerra RN)1257 (IV STOP - Provider: Rosa Isela Becerra RN) predniSONE (DELTASONE) tablet 40 mg 40 mg, Oral, DAILY WITH MEAL, First dose on Mon04/03/15 at 0945, Until Discontinued, Start 40 mg daily 1034 (Given - Provid er: Suri Sim RN) sodium chloride 0.9 % 1,000 mL IV bolus (COMPLETED) Intravenous, ONCE, 1 dose, On Ashlie 04/02/15 at 0230 0251 (IV Started - Provider: Era Pope RN)0404 (IV STOP - Provider: Era Pope RN) Continuous Medication Order 04/01/2015 04/02/2015 04/03/2015 0.9 % NaCl infusion (CANCELED) Intravenous, at 100 mL/hr, CONTINUOUS, Starting on Ashlie 04/02/15 at 0930, Until Mon04/03/15 at 2225 1005 (New Bag - Provider: Rosa Isela Becerra RN)2004 (New Bag - Provider: Jasmyne Alan LPN) 0818 (Rate/Dose Verify - Provider: Suri Sim RN)0844 (New Bag - Provider: Suri Sim RN)1616 (Stopped - Provider: Rosa Isela Becerra RN) PRN Medication Order 04/01/2015 04/02/2015 04/03/2015 iopamidol (ISOVUE-370) 76 % injection (LOW) 75 mL (COMPLETED) 75 mL, Intravenous, ONCE PRN, 1 dose, Starting on Ashlie 04/02/15 at 0512, Until Ashlie 04/02/15 at 0510, Radiology Procedure, VESICANT , Radiology 0510 (Given - Provider: Sofia Flores, RT) LORazepam (ATIVAN) injection 1-2 mg (CANCELED) 1-2 mg, Intravenous, EVERY 2 HOURS PRN, Starting on Ashlie 04/02/15 at 0749, Until Mon04/03/15 at 2225, Anxiety, Withdrawal Symptoms, Agitation, VESICANT 0800 (Given - Provider: Rosa Isela Becerra RN)1812 (Given - Provider: Jeannine Dowling RN) 0206 (Given - Provider: Lukasz Hernandez RN)0850 (Given - Provider: Suri Sim RN) morphine injection 4 mg (CANCELED)(Linked Group 2) 4 mg, Intravenous, EVERY 4 HOURS PRN, Starting on Ashlie 04/02/15 at 0651, Until Mon04/03/15 at 2225, Pain, Begin with lowest dose unless otherwise directed. Reassess pain in 15 minutes. If pain unrelieved, remainder of dose may be given to patient. 0716 (Given - Provider: Ronit Alexandre RN)1157 (Given - Provider: Rosa Isela Becerra RN)1614 (Given - Provider: Jasmyne Alan LPN)2014 (Given - Provider: Jasmyne Alan LPN) 0134 (Given - Provider: Lukasz Hernandez RN)0556 (Given - Provider: Lukasz Hernandez RN)1030 (Given - Provider: Suri Sim, ANGE) ondansetron (ZOFRAN) 4 mg/2 mL injection 4 mg (CANCELED) 4 mg, Intravenous, EVERY 6 HOURS PRN, Starting on Ashlie 04/02/15 at 0750, Until Mon04/02/15 at 1538, Nausea 0800 (Given - Provider: Rosa Isela Becerra RN)1337 (Given - Provider: Mile Mendiola RN) ondansetron (ZOFRAN) 4 mg/2 mL injection 4 mg (CANCELED) 4 mg, Intravenous, EVERY 4 HOURS PRN, Starting on Mon04/02/15 at 1545, Until Mon04/03/15 at 2225, Nausea 1741 (Given - Provider: Jasmyne Alan LPN)2147 (Given - Provider: Jasmyne Alan LPN) 0141 (Given - Provider: Lukasz Hernandez RN)0558 (Given - Provider: Lukasz Hernandez RN)1027 (Given - Provider: Suri Sim RN) Linked Groups Order Group 1: potassium chloride 10 mEq in 100 mL IVPB (COMPLETED)Jump to med 10 mEq, Intravenous, EVERY 1 HOUR, 1 dose, First dose on Ashlie 04/02/15 at 0700, Administer over 60 Minutes, Infuse 2 x KCl 10 mEq IVPB for a total dose of 20 mEq KCl. VESICANT Followed by potassium chloride 10 mEq in 100 mL IVPB (COMPLETED)Jump to med 10 mEq, Intravenous, EVERY 1 HOUR, 1 dose, First dose on Ashlie 04/02/15 at 0800, Administer over 60 Minutes, Infuse 2 x KCl 10 mEq IVPB for a total dose of 20 mEq KCl. VESICANT Group 2: morphine injection 4 mg (CANCELED)Jump to med 4 mg, Intravenous, EVERY 4 HOURS PRN, Starting on Ashlie 04/02/15 at 0651, Until 04/03/15 at 2225, Pain, Begin with lowest dose unless otherwise directed. Reassess pain in 15 minutes. If pain unrelieved, remainder of dose may be given to patient. Or morphine injection 8 mg (CANCELED) 8 mg, Intravenous, EVERY 4 HOURS PRN, Starting on Ashlie 04/02/15 at 0651, Until 04/03/15 at 2225, Pain, Begin with lowest dose unless otherwise directed. Reassess pain in 15 minutes. If pain unrelieved, remainder of dose may be given to patient. documented in this encounter Orders Medications Ordered That Paul ht Not Have Been Administered Count Last Ordered Date First Ordered Date methylPREDNISolone sodium dukes ccinate (Solu-MEDROL) 40 mg/mL injection 40 mg 1 04/02/2015 morphine injection 8 mg 1 04/02/2015 sertraline (ZOLOFT) tablet 50 mg 1 04/02/20 15 Nursing Count Last Ordered Date First Orde red Date ADMISSION 1 04/02/2015 ED ENTER ADMISSION ORDER 04/02/2015 NURSING COMMUNICATION 1 04/02/2015 Consult Count Last Ordered Date First Orde red Date IP CONSULT TO GI 1 04/02/2015 Transfer Count Last Ordered Date First Orde red Date TRANSFER PATIENT 1 04/03/2015 BED REQUEST 1 04/02/2015 Discharge Count Last Ordered Date First Orde red Date DISCHARGE PATIENT 1 04/03/2015 documented in this encounter Care Teams Loan Administrator Relationship Specialty Start Date End Date Alejandro Reid V, DO [address] [place] [id number] PCP - General Family Medicine 06/25/14 07/29/15 documented as of this encounter
--- OUTSIDE RECORDS SUMMARY | 2024-08-15 13:58 | XMS_ITS | Encounter Summary ---
Author Organization [place] [address] Care Team Providers Care Director Of Gift Planning Name Role Phone Suri Garduno MD Primary Care Provider [phone] Reason for Visit * Reason Onset Date Comments Toe Injury 10/27/2017 Encounter Details Date Type Department Care Team (Late st Contact Info) Description 10/27/2017 Telephone [facility] [address] [place] [address] Gabby Mercedes RMA [address] [place] [address] Toe Injury Social History Tobacco Use Types Packs/Day Years [...] Notes * Telephone Encounter - Gabby Mercedes RMA - 10/27/2017 10:32 AM EST Patient called the office stating that she partially ripped off her toe last night. She was taken to the ED by family but refused treatment due to the cost. Dr. Dumont was advised of the situation and recommended that the patient go to urgent care or ED for evaluation. Patient was unhappy with thisrecommendation. I explained to the patient that due to the injury she was describing that she wouldrequire possible x-rays and other intervention that we could not provide at the office level. Patient was still not satisfied with this recommendation when the call was ended. documented in this encounter Plan of Treatment Upcoming Encounters Date Type Department Care Team (Late st Contact Info) Description 09/11/2024 1:45 PM EST Office Visit [facility] [address] [place] [address] Swapnil Lopez MD [address] [place] [address] 10/21/2024 2:00 PM EST Appointment [facility] [address] [address] Jacky Shirley MD [address] [place] [address] [place] [address] 10/23/2024 1:45 PM EST Appointment [facility] [place] [place] [address] Olena Darby APRN [address] [place] [address] [place] [address] documented as of this encounter Goals Goal Patient Goal Type Associated Problems Recent Progress Patient-Stated? Author Maintain a healthy diet, exercise regularly and maintain an ideal body weight General Linda Perez, RMA documented as of this encounter Visit Diagnoses Not on filedocumented in this encounter Care Teams Director Of Gift Planning Relationship Specialty Start Date End Date Suri Garduno MD PCP - General Family Medicine 07/25/17 08/01/18 documented as of this encounter
--- OUTSIDE RECORDS SUMMARY | 2024-08-15 13:58 | XMS_ITS | Encounter Summary ---
Author Organization [place] [address] Care Team Providers Care Card Sorter Name Role Phone Franklin Manzanares DO, Viral Primary Care Provider [phone] Reason for Visit * Reason Onset Date Comments Other 01/26/2015 referral-gastro Encounter Details Date Type Department Care Team (Late st Contact Info) Description 01/26/2015 Telephone [facility] [address] [place] [address] Alejandro Reid V, DO [address] [place] [address] Other (referral-gastro ) Social History Tobacco Use Types Packs/Day [...] Miscellaneous Notes * Telephone Encounter - Ashley Hurst - 01/26/2015 11:14 AM EDT Patient states she is not going to make an appointment with gastro documented in this encounter Plan of Treatment Upcoming Encounters Date Type Department Care Team (Late st Contact Info) Description 09/11/2024 1:45 PM EST Office Visit [facility] [address] [facility], [place] [id number] Swapnil Lopez MD [address] [place] [id number] 10/21/2024 2:00 PM EST Appointment [facility] [address] [place] [place] [address] Jacky Shirley MD [address] [facility] [place], [place] [id number] 10/23/2024 1:45 PM EST Appointment [facility] [place] [address] Olena Darby APRN [address] [place] [address] [place] [address] documented as of this encounter Visit Diagnoses Not on filedocumented in this encounter Care Teams Card Sorter Relationship Specialty Start Date End Date Alejandro Reid DO [address] [place] [phone] PCP - General Family Medicine 06/25/14 07/29/15 documented as of this encounter
--- OUTSIDE RECORDS SUMMARY | 2024-08-15 13:58 | XMS_ITS | Encounter Summary ---
Author Organization [place] [address] Care Team Providers Care Staff Anesthesiologist Name Role Phone Suri Garduno MD Primary Care Provider [phone] Reason for Visit * Reason Onset Date Comments Medication Problem 08/15/2017 Encounter Details Date Type Department Care Team (Late st Contact Info) Description 08/15/2017 Telephone [facility] [address] [place] [address] Suri Garduno MD [address] [place] [address] Medication Problem Social History Tobacco Use Types [...] Telephone Encounter - Gabby Mercedes RMA - 08/15/2017 5:01 PM EST LM advising patient to call back to discuss. * Telephone Encounter - Suri Garduno MD - 08/15/2017 4:44 PM EST Can you find out how much she is taking of the klonopin? Is she drinking alcohol at all? Can see if she wants to come in this coming and put her in an acute spot. * Telephone Encounter - Elizabeth Thompson - 08/15/2017 10:58 AM EST Needs to speak to you about her medications. clonazePAM (KLONOPIN) 1 mg Oral Tablet & escitalopram oxalate (LEXAPRO) 10 mg Oral Tablet. Still having problems with Klonopin feeling disoriented anddizzy. Would like to talk to you regarding what to do going forward. Has an appointment on 08/29 at11am. documented in this encounter Plan of Treatment Upcoming Encounters Date Type Department Care Team (Late st Contact Info) Description 09/11/2024 1:45 PM EST Office Visit [facility] [address] [place] [address] Swapnil Lopez MD [address] [place] [address] 10/21/2024 2:00 PM EST Appointment [facility] [address] [place] [address] Jacky Shirley MD [address] [place] [address] [place] [address] 10/23/2024 1:45 PM EST Appointment [facility] [place] [address] Olena Darby APRN [address] [place] [address] [place] [address] documented as of this encounter Goals Goal Patient Goal Type Associated Problems Recent Progress Patient-Stated? Author Maintain a healthy diet, exercise regularly and maintain an ideal body weight General No Linda Walden, RMA documented as of this encounter Visit Diagnoses Not on filedocumented in this encounter Care Teams Staff Anesthesiologist Relationship Specialty Start Date End Date Suri Garduno MD PCP - General Family Medicine 07/25/17 08/01/18 documented as of this encounter
--- OUTSIDE RECORDS SUMMARY | 2024-08-15 13:58 | XMS_ITS | Encounter Summary ---
Author Organization [place] [address] Care Team Providers Care Garbage Depot Worker Name Role Phone Franklin Manzanares DO, Viral Primary Care Provider [phone] Reason for Visit * Reason Onset Date Comments Care Management - Chart Review 04/06/2015 r amrit discharge Encounter Details Date Type Department Care Team (Late st Contact Info) Description 04/06/2015 Patient Outreach [address] [address] Isela Avila LPN Care Management - Chart Review (reviewed discharge) Social History Tobacco Use Types Packs/Day Years [...] encounter Miscellaneous Notes * Telephone Encounter - Isela Avila LPN - 04/06/2015 12:47 PM EDT Reviewed hospital discharge. Patient is not a candidate to be followed by [facility] at this time. documented in this encounter Plan of Treatment Upcoming Encounters Date Type Department Care Team (Late st Contact Info) Description 09/11/2024 1:45 PM EST [facility] [address] [facility] [place], [place] [id number] Swapnil Lopez MD [address] [facility] [place] [id number] 10/21/2024 2:00 PM EST Appointment [facility] [address] [place] [address] Jacky Shirley MD 1 [facility] [place] [place], [place] [id number] 10/23/2024 1:45 PM EST Appointment [facility] [address] [place], [place] [id number] Olena Darby APRN [address] [place] [address] [place] [address] documented as of this encounter Visit Diagnoses Not on filedocumented in this encounter Care Teams Garbage Depot Worker Relationship Specialty Start Date End Date Alejandro Reid DO [address] [place] [address] PCP - General Family Medicine 06/25/14 07/29/15 documented as of this encounter
--- OUTSIDE RECORDS SUMMARY | 2024-08-15 13:58 | XMS_ITS | Encounter Summary ---
Author [place] [address] Care Team Providers Care Aluminum Hydroxide Process Operator Name Role Phone Franklin Manzanares DO, Viral Primary Care Provider [phone] Encounter Details Date Type Department Care Team (Latest Contact Info) Description 06/25/2014 8:25 PM EDT - 06/25/2014 11:59 PM EDT Hospital Encounter [facility] [place] [address] Shakes; Alcohol abuse; Near syncope; Crohn disease, without complications (HCC); IRMA (generalized anxiety disorder) Discharge Disposition: Home [...] on file documented as of this encounter Medications at Time of Discharge sertraline (ZOLOFT) 50 mg Oral TabletIndications :IRMA (generalized anxiety disorder) Take 1 tablet by mouth daily. 30 tablet 2 06/25/2014 04/03/2015 documented as of this encounter Discharge Disposition Disposition Code Departure Means Destination Home or Self Care documented in this encounter Miscellaneous Notes * Miscellaneous - Unknown, Unknown - 06/25/2014 8:25 PM EDT documented in this encounter Plan of Treatment Upcoming Encounters Date Type Department Care Team (Late st Contact Info) Description 09/11/2024 1:45 PM EST Office Visit [facility] [address] [place] [address] Swapnil Lopez MD [address] [address] 10/21/2024 2:00 PM EST Appointment [facility] MRI [address] [place] [address] Jacky Shirley MD 1 [facility] [place], [place] [id number] 10/23/2024 1:45 PM EST Appointment [facility] [address] [place], [place] [id number] Olena Daryb APRN [address] [place] [address] CANCER [place], [place] [id number] documented as of this encounter Procedures Procedure Name Priority Date/Time Associated Diagnosis Comments DIFFERENTIAL Routine 06/25/2014 3:00 PM EDT CBC WITH DIFF Routine 06/25/2014 3:00 PM EDT Shakes Alcohol abuse Near syncope Crohn disease, without complications (HCC) IRMA (generalized anxiety disorder) THYROID STIMULATING HORMONE Routine 06/25/2014 3:00 PM EDT Shakes Alcohol abuse Near syncope Crohn disease, without complications (HCC) IRMA (generalized anxiety disorder) HEMOGLOBIN A1C Routine 06/25/2014 3:00 PM EDT Shakes Alcohol abuse Near syncope Crohn disease, without complications (HCC) IRMA (generalized anxiety disorder) GAMMA GLUTAMYL TRANSFERASE Routine 06/25/2014 3:00 PM EDT Shakes Alcohol abuse Near syncope Crohn disease, without complications (HCC) COMPREHENSIVE METABOLIC PANEL Routine 06/25/2014 3:00 PM EDT Shakes Alcohol abuse Near syncope Crohn disease, without complications (HCC) IRMA (generalized anxiety disorder) documented in this encounter Results * DIFFERENTIAL (06/25/2014 3:00 PM EDT) Neut Percent 60.3 % [facility] Lymph Percent 26.0 % [facility] K[place]man Percent 12.7 % [facility] Eos Percent 0.7 % [facility] Baso Percent 0.3 % [facility] Neut# 3.9 1.8 - 7.7 x10(3)/mcL [facility] Lymph# 1.7 0.6 - 4.8 x10(3)/mcL [facility] Kaufman# 0.8 0.0 - 1.3 x10(3)/mcL [facility] Eos# 0.0 0.0 - 0.5 x10(3)/mcL [facility] Baso# 0.0 0.0 - 0.2 x10(3)/mcL [facility] Blood specimen (specimen) 06/25/2014 3:00 PM EDT 06/25/2014 9:10 PM EDT us Viral Reid V, DO HEMATOLOGY ORDERABLES Final Re sult [facility] [address] [place] [address] * (ABNORMAL) CBC WITH AUTO DIFF (06/25/2014 3:00 PM EDT) WBC 6.5 4.0 - 11.0 x10(3)/mcL [facility] RBC 5.16(H) 3.80 - 5.10 x10(6)/mcL [facility] Hgb 14.9 12.0 - 15.6 gm/dL [facility] Hct 45.8 35.7 - 45.9 % [facility] MCV 88.9 82.5 - 99.8 fL [facility] MCH 29.0 27.0 - 34.3 pg [facility] MCHC 32.6 32.1 - 35.3 gm/dL [facility] RDW 15.3(H) 11.5 - 15.0 % [facility] Platelet 134(L) 144 - 423 x10(3)/mcL [facility] MPV 8.1 6.8 - 10.8 fL [facility] Blood specimen (specimen) UPPER LIMB STRUCTURE / Unknown 06/25/2014 3:00 PM EDT 06/25/2014 9:10 PM EDT us Viral Reid V, DO HEMATOLOGY ORDERABLES Final Re sult [facility] [address] [place] [address] * (ABNORMAL) COMPREHENSIVE METABOLIC PANEL (06/25/2014 3:00 PM EDT) Sodium 137 136 - 145 mmol/L [facility] Potassium 3.4(L) 3.5 - 5.0 mmol/L [facility] Chloride 98 98 - 107 mmol/L [facility] Total CO2 28 22 - 29 mmol/L [facility] Anion Gap 11 7 - 16 mmol/L [facility] Calcium 10.3(H) 8.6 - 10.2 mg/dL [facility] Glucose Lvl 99 74 - 100 mg/dL [facility] BUN 6 6 - 20 mg/dL [facility] Creatinine 0.79 0.51 - 1.00 mg/dL [facility] Albumin 4.5 3.5 - 5.2 gm/dL [facility] Total Protein 8.6(H) 6.4 - 8.3 gm/dL [facility] Bili Total 0.5 0.1 - 1.3 mg/dL [facility] AST 43(H) <=40 IU/L [facility] ALT 27 <=41 IU/L [facility] Alk Phos 98 35 - 104 IU/L [facility] GFR Afr Am >60 [facility] Comment: GFR is estimated using creatinine, age, gender, and race. ??GFR has been validated for patients between 18 and 70 years of age. GFR has not been validated for women, patients with serious comorbid conditions, or persons with extremes of body size, muscle mass, or nutritional status. ??For additional information: ??www.kidney.org. Chronic kidney disease stage ? GFR (ml/min/1.73 square meters) ? Stage 3 ? 30 - 59 ? Stage 4 ? 15 - 29 ? Stage 5 ? 14 or less GFR Non Afr Am >60 [facility] Blood specimen (specimen) UPPER LIMB STRUCTURE / Unknown 06/25/2014 3:00 PM EDT 06/25/2014 9:10 PM EDT us Viral Franklin V, DO CHEMISTRY ORDERABLES Edited Re sult - Final [facility] [address] [place] [address] * (ABNORMAL) GAMMA GLUTAMYL TRANSFERASE (06/25/2014 3:00 PM EDT) GGT 71(H) 5 - 36 IU/L [facility] Blood specimen (specimen) UPPER LIMB STRUCTURE / Unknown 06/25/2014 3:00 PM EDT 06/25/2014 9:10 PM EDT us Viral Reid V, DO CHEMISTRY ORDERABLES Final Res ult Performing Organization Address [facility] de Phone Number [facility] [address] [place] [address] * HEMOGLOBIN A1C (06/25/2014 3:00 PM EDT) Hgb A1c 5.4 <=7.0 % [facility] Comment: Initial Diagnostic Criteria < 5.7 % ?Normal 5.7 - 6.4 % ? At risk for diabetes mellitus >= 6.5 % ?Consistent with diabetes mellitus Diabetes monitoring Target Value (ADA recommended): ?< 7 % Blood specimen (specimen) UPPER LIMB STRUCTURE / Unknown 06/25/2014 3:00 PM EDT 06/25/2014 9:10 PM EDT us Viral Franklin V, DO CHEMISTRY ORDERABLES Final Res ult Performing Organization Address [facility] de Phone Number [facility] [address] [place] [address] * THYROID STIMULATING HORMONE (06/25/2014 3:00 PM EDT) Pathologist [facility] TSH 0.541 0.270 - 4.200 mcIU/mL [facility] Blood specimen (specimen) UPPER LIMB STRUCTURE / Unknown 06/25/2014 3:00 PM EDT 06/25/2014 9:10 PM EDT us Viral Franklin Manzanares, DO CHEMISTRY ORDERABLES Final Res ult Performing Organization Address [facility] de Phone Number [facility] [address] [place] [address] documented in this encounter Visit Diagnoses Diagnosis Shakes Abnormal involuntary movements Alcohol abuse Alcohol abuse, unspecified Near syncope Syncope and collapse Crohn disease, without complications IRMA (generalized anxiety disorder) Generalized anxiety disorder documented in this encounter Care Teams Aluminum Hydroxide Process Operator Relationship Specialty Start Date End Date Alejandro Reid DO [address] [place] [address] PCP - General Family Medicine 06/25/14 07/29/15 documented as of this encounter
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
--- OUTSIDE RECORDS SUMMARY | 2024-08-15 13:58 | XMS_ITS | Encounter Summary ---
Author Organization [place] [address] Care Team Providers Care Pivot End Polisher Name Role Phone Franklin Manzanares DO, Viral Primary Care Provider [phone] Reason for Visit * Reason Onset Date Comments ED Follow-Up Call 04/27/2015 Encounter Details Date Type Department Care Team (Late st Contact Info) Description 04/27/2015 Patient Outreach [facility] [address] [place] [address] ReidAlejandro tobias V, DO [address] [place] [address] ED Follow-Up Call Social History Tobacco Use Types Packs/Day Years [...] encounter Miscellaneous Notes * Telephone Encounter - Denice Sam - 04/27/2015 10:47 AM EDT Attempted to reach pt at both #s in file, but both were disconnected. Sending pt. ltr. documented in this encounter Plan of Treatment Upcoming Encounters Date Type Department Care Team (Late st Contact Info) Description 09/11/2024 1:45 PM EST Office Visit [facility] [address] [facility] [place], [place] [id number] Swapnil Lopez MD [address] [place] [address] 10/21/2024 2:[address] [facility] MRI [address] [facility] [place] [address] Jacky Shirley MD 1 [facility]CER CARE [place], [place] [id number] 10/23/2024 1:45 PM EST Appointment [facility] [address] [place], [place] [id number] Olena Darby APRN [address] [place] [address] [place] [address] documented as of this encounter Visit Diagnoses Not on filedocumented in this encounter Care Teams Pivot End Polisher Relationship Specialty Start Date End Date Alejandro Reid V, DO [address] [place] [address] PCP - General Family Medicine 06/25/14 07/29/15 documented as of this encounter
--- OUTSIDE RECORDS SUMMARY | 2024-08-15 13:58 | XMS_ITS | Encounter Summary ---
Author Organization [place] [address] Care Team Providers Care Senior Manufacturing Supervisor Name Role Phone Suri Garduno MD Primary Care Provider [phone] Reason for Visit * Reason Onset Date Comments Other 11/01/2017 Encounter Details Date Type Department Care Team (Late Contact Info) Description 11/01/2017 Telephone [facility] [address] [place] [address] Suri Garduno MD [address] [place] [address] Other Social History Tobacco Use [...] encounter Miscellaneous Notes * Telephone Encounter - Alicia Bernabe - 11/02/2017 8:31 AM EST Left information on her machine * Telephone Encounter - Suri Garduno MD - 11/02/2017 8:10 AM EST NSAIDs such as mobic are helpful for pain but are hard on the GI tract in general and not a good idea penitentiary for someone with Crohn's disease. * Telephone Encounter - Alicia Bernabe - 11/01/2017 11:40 AM EST The meloxicam (MOBIC) 15 mg Oral Tablet has helped her crohns disease that you gave her for her toe. Will you keep giving her this for her crohns. documented in this encounter Plan of Treatment Upcoming Encounters Date Type Department Care Team (Late st Contact Info) Description 09/11/2024 1:45 PM EST Office Visit [facility] [address] [place], [place] [id number] Swapnil Lopez MD [address] [place] [address] 10/21/2024 2:00 PM EST Appointment [facility] [place] MRI [address] [place] [address] Jacky Shirley MD [address] [place] [address] CANCER C[place], [place] [id number] 10/23/2024 1:45 PM EST Appointment [facility] [address] [place], [place] [id number] Olena Darby APRN [address] [place] [id number] documented as of this encounter Goals Goal Patient Goal Type Associated Problems Recent Progress Patient-Stated? Author Maintain a healthy diet, exercise regularly and maintain an ideal body weight General No Linda Walden, RMA documented as of this encounter Visit Diagnoses Not on filedocumented in this encounter Care Teams Senior Manufacturing Supervisor Relationship Specialty Start Date End Date Suri Garduno MD PCP - General Family Medicine 07/25/17 08/01/18 documented as of this encounter
--- OUTSIDE RECORDS SUMMARY | 2024-08-15 13:58 | XMS_ITS | Encounter Summary ---
Author Organization [place] [address] Care Team Providers Care Sql Etl Developer Name Role Phone Franklin Manzanares DO, Viral Primary Care Provider [phone] Reason for Visit * Reason Comments Choking pt states that she h ad several choking episodes recently and feels like she still has something in her throat from the last episodes. pt states she has tried everything to get it down. Encounter Details Date Type Department Care Team (Late st Contact Info) Description 06/25/2016 7:38 AM EDT - 06/25/2016 10:06 AM EDT Emergency [facility] [address] [place] [address] Swapnil Wilson MD Esophageal obstruction due to food impaction (Primary Dx) Discharge Disposition: Short Term Hospital Social History Tobacco Use Types Packs/Day Years [...] Sign Reading Time Taken Comments Blood Pressure 118/74 06/25/2016 9:56 AM EDT Pulse 76 06/25/2016 9:56 AM EDT Temperature - - Respiratory Rate 16 06/25/2016 9:56 AM EDT Oxygen Saturation 98% 06/25/2016 9:56 AM EDT Inhaled Oxygen Concentration - - Weight 49.9 kg (110 lb) 06/25/2016 7:42 AM EDT Height 157.5 cm (5' 2 ) 06/25/2016 7:42 AM EDT Body Mass Index 20.12 06/25/2016 7:42 AM EDT documented in this encounter Discharge Disposition Disposition Code Departure Means Destination [facility] documented in this encounter ED Notes * Tessa Streeter RN - 06/25/2016 10:01 AM EDT No reaction to medication noted. Medication teaching and discharge instructions given to pt who verbalized understanding and pt left ambulatory in stable condition with steady gait mother driving. Ptinstructed to go straight the [facility] ED and not to eat or drink anything pt verbalized understanding. * Tessa Streeter RN - 06/25/2016 9:17 AM EDT Pt attempted to drink coke but was unable to swallow Dr. Wilson informed. * Swapnil Wilson MD - 06/25/2016 7:36 AM EDT CHIEF COMPLAINT Chief Complaint Patient presents with ??? Choking pt states that she had several choking episodes recently and feels like she still has something in her throat from the last episodes. pt states she has tried everything to get it down. HPI Marleni Sy is a 55 y.o. female who presents with choking and trouble swallowing. Patient states 36 hours ago she was eating brisket. She states she eats very quickly and right after she swallowed a piece of the meat got stuck in her throat. She points to her sternal notch. She says ever since then she has been unable swallow even her saliva. She states she's been trying sips of Coke because she heard that we'll break it up, she feels a little of the Coke go down but most of it comes backup with bits of meat. She denies chest pain or shortness of breath. She has a history of Crohn's disease and is followed by a hospital internship at the [facility]. She has never had problems with esophageal obstruction before. REVIEW OF SYSTEMS See HPI for further details. Review of systems negative for fever cough or trouble breathing, all else otherwise negative. PAST MEDICAL HISTORY Past Medical History Diagnosis Date ??? Cancer (HCC) ??? Crohn disease (HCC) FAMILY HISTORY No family history on file. SOCIAL HISTORY Social History Social History ??? Marital status: Spouse name: N/A ??? Number of children: N/A ??? Years of education: N/A Social History Main Topics ??? Smoking status: Never Smoker ??? Smokeless tobacco: Never Used ??? Alcohol use Yes Comment: vodka; states that she drank before coming today ??? Drug use: No ??? Sexual activity: Not Asked Other Topics Concern ??? None Social History Narrative SURGICAL HISTORY Past Surgical History Procedure Laterality Date ??? section x2 ??? Colon surgery x11 crohns ??? Colostomy CURRENT MEDICATIONS Current Facility-Administered Medications: ??? sodium chloride 0.9% syringe, , Intravenous, PRN, Swapnil Wilson MD, 10 mL at 06/25/16 0820 Current Outpatient Prescriptions: ??? LORazepam (ATIVAN) 0.5 mg Oral Tablet, Take 1 Tab by mouth 2 times daily., Disp: 14 Tab, Rfl: 0 ??? pantoprazole (PROTONIX) 40 mg Oral Tablet, Delayed Release (E.C.), Take 1 Tab by mouth daily., Disp: 30 Tab, Rfl: 2 ??? sertraline (ZOLOFT) 50 mg Oral Tablet, Take 1 Tab by mouth daily., Disp: 30 Tab, Rfl: 2 ALLERGIES Allergies Allergen Reactions ??? Sulfa (Sulfonamide Antibiotics) PHYSICAL EXAM VITAL SIGNS: Visit Vitals ??? BP (!) 111/98 (Patient Position: Sitting) ??? Pulse 85 ??? Resp 16 ??? Ht 5' 2 (1.575 m) ??? Wt 110 lb (49.9 kg) ??? SpO2 100% ??? BMI 20.12 kg/m2 Constitutional: Uncomfortable but nontoxic HENT: Normocephalic, Atraumatic, Bilateral external ears normal, Oropharynx moist, No oral exudates, Nose normal. Eyes: PERRLA, EOMI, Conjunctiva normal, No discharge. Neck: Normal range of motion, No tenderness, Supple, No stridor. Lymphatic: No lymphadenopathy noted. Cardiovascular: Normal heart rate, Normal rhythm, No murmurs, No rubs, No gallops. Thorax & Lungs: Normal breath sounds, No respiratory distress, No wheezing, No chest tenderness. Abdomen: Bowel sounds normal, Soft, No tenderness, No masses, No pulsatile masses. Skin: Warm, Dry, No erythema, No rash. Back: No tenderness, No CVA tenderness. Extremities: Intact distal pulses, No edema, No tenderness, No cyanosis, No clubbing. Musculoskeletal: Good range of motion in all major joints. No tenderness to palpation or major deformities noted. Neurologic: Alert & oriented x 3, Normal motor function, Normal sensory function, No focal deficits noted. Psychiatric: Affect normal, Judgment normal, Mood normal. EKG RADIOLOGY/PROCEDURES COURSE & MEDICAL DECISION MAKING Pertinent Labs & Imaging studies reviewed. (See chart for details) The patient was evaluated. She has evidence of esophageal obstruction. IV was placed she was given Ativan and glucagon without relief of her symptoms. We attempted for her to drink Coca-Cola and she is still regurgitating. I spoken to GI and she will be discharged from our emergency department and taken by private vehicle, since she is stable with no respiratory symptoms, to [facility] emergency department for emergent endoscopy If a controlled substance was prescribed to this patient it was deemed the patient had acute pain that required the prescribing of a controlled substance. IZZY was reviewed and the risk and benefits of prescribing a controlled substance was discussed with the patient. FINAL IMPRESSION 1. Esophageal obstruction due to food impaction Condition at discharge stable This chart was completed using voice recognition technology and may contain unintended errors Swapnil Wilson MD 06/25/16 0952 documented in this encounter Plan of Treatment Upcoming Encounters Date Type Department Care Team (Late st Contact Info) Description 09/11/2024 1:45 PM EST Office Visit [facility] [address] [facility] [place] [address] Swapnil Lopez MD [address] [place] [address] 10/21/2024 2:00 PM EST Appointment [facility] [address], [place] [address] Jacky Shirley MD 1 [facility] [place], [place] [id number] 10/23/2024 1:45 PM EST Appointment [facility] [address] [place], [place] [id number] Olena Darby APRN [address] [place] [address] [place] [address] documented as of this encounter Procedures Procedure Name Priority Date/Time Associated Diagnosis Comments GMED EGD Routine 06/25/2016 1:35 PM EDT SALINE LOCK IV Routine 06/25/2016 7:57 AM EDT documented in this encounter Results * GMED EGD (06/25/2016 1:35 PM EDT) 06/25/2016 1:35 PM EDT Impressions [facility] - 06/30/2016 12:09 PM EDT Ulcers in the antrum and stomach body. (Biopsy). Ulcers in the second part of the duodenum. (Biopsy). Ulcer in the upper third of the esophagus. Possible Crohn's involvement of upper GI tract. Plan: High dose PPI bid for 30 days. This section is an excerpt of the full report. us Christopher Matthews MD PHD GI PROCEDURE ORDERABLES Fin al Result [facility] [address] [place] [address] documented in this encounter Visit Diagnoses Diagnosis Esophageal obstruction due to food impaction- Primary documented in this encounter Administered Medications Inactive Administered Medications - up to 1 most recent administrations Medication Order MAR Action Action Date Dose Rate Site glucagon (human recombinant) (GLUCAGEN) injection 1 mg 1 mg, Intravenous, ONCE, 1 dose, On 06/25/16 at 0800, If patient is without IV access, give IM, insert IV and call physician. Given 06/25/2016 8:16 AM EDT 1 mg LORazepam (ATIVAN) injection 1 mg 1 mg, Intravenous, ONCE, 1 dose, On 06/25/16 at 0800, VESICANT Given 06/25/2016 8:15 AM EDT 1 mg sodium chloride 0.9% syringe Intravenous, PRN, Starting on 06/25/16 at 0756, Until 06/25/16 at 1053, Line Care, Flush with 5-10 mL saline pre/post IVP, and 5 mL prior to IVPB administration. Given 06/25/2016 8:20 AM EDT 10 mL documented in this encounter Active and Recently Administered Medications Times are shown in EDT. Scheduled Medication Order 06/23/2016 06/24/2016 06/25/2016 glucagon (human recombinant) (GLUCAGEN) injection 1 mg (COMPLETED) 1 mg, Intravenous, ONCE, 1 dose, On 06/25/16 at 0800, If patient is without IV access, give IM, insert IV and call physician. 0816 (Given - Provid er: Tessa Streeter RN) LORazepam (ATIVAN) injection 1 mg (COMPLETED) 1 mg, Intravenous, ONCE, 1 dose, On 06/25/16 at 0800, VESICANT 0815 (Given - Provid er: Tessa Streeter RN) PRN Medication Order 06/23/2016 06/24/2016 06/25/2016 sodium chloride 0.9% syringe Intravenous, PRN, Starting on 06/25/16 at 0756, Until 06/25/16 at 1053, Line Care, Flush with 5-10 mL saline pre/post IVP, and 5 mL prior to IVPB administration. 0814 (Given - Provid er: Tessa Streeter RN)0820 (Given - Provider: Tessa Streeter RN) documented in this encounter Orders IV Count Last Ordered Date First Orde red Date SALINE LOCK IV 1 06/25/2016 documented in this encounter Care Teams Sql Etl Developer Relationship Specialty Start Date End Date Reid, Viral V, DO [address] [place] [id number] PCP - General Family Medicine 06/25/16 12/14/16 documented as of this encounter
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
--- OUTSIDE RECORDS SUMMARY | 2024-08-15 13:58 | XMS_ITS | Encounter Summary ---
Author Organization [facility] [place] [address] Care Team Providers Care Receiving Operator Name Role Phone Franklin V DO, Viral Primary Care Provider [phone] Reason for Visit * Reason Onset Date Comments ED Follow-Up Call 06/27/2016 Encounter Details Date Type Department Care Team (Late st Contact Info) Description 06/27/2016 Patient Outreach [facility] [address] [place] [address] Reid, Viral V, DO [address] [place] [address] ED Follow-Up Call Social History [...] encounter Miscellaneous Notes * Telephone Encounter - Gail Luke - 06/27/2016 11:47 AM EDT ED Follow Up Regarding the most recent emergency room visit: Appropriate for follow up?: Yes Number of ED visits in last year: 2 Contact made?: No If no, did you leave a message?: Yes Was letter sent?: Yes Medical reason for visit: esophageal obstruction due to food impaction If patient is unable to fill medications, please consider a social work consult if criteria met: documented in this encounter Plan of Treatment Upcoming Encounters Date Type Department Care Team (Late st Contact Info) Description 09/11/2024 1:45 PM EST Office Visit [facility] [address] [facility] [place], [place] [id number] Swapnil Lopez MD [address] [place] [address] 10/21/2024 2:00 PM EST Appointment [facility] MRI [address] [place] [address] Jacky Shirley MD [address] [place] [address] [facility] [place], [place] [id number] 10/23/2024 1:45 PM EST Appointment [facility] [address] [address] [place], [place] [id number] Olena Darby APRN [address] [place] [address] [place] [address] documented as of this encounter Visit Diagnoses Not on filedocumented in this encounter Care Teams Receiving Operator Relationship Specialty Start Date End Date Alejandro Reid DO [address] [place] [phone] PCP - General Family Medicine 06/25/16 12/14/16 documented as of this encounter
--- OUTSIDE RECORDS SUMMARY | 2024-08-15 13:58 | XMS_ITS | Encounter Summary ---
Author Organization [place] [address] Care Team Providers Care Electric Screw Driver Operator Name Role Phone Suri Garduno MD Primary Care Provider [phone] Reason for Visit * Reason Comments Anxiety Encounter Details Date Type Department Care Team (Latest Contact Info) Description 09/05/2017 11:00 AM EST Office Visit [facility] [address] [place] [address] Suri Garduno MD [address] [place] [address] Anxiety and depression (Primary Dx); Crohn's disease with complication, unspecified gastrointestinal tract location (HCC); Alcoholism (HCC) Social History Tobacco Use Types Packs/Day [...] Sign Reading Time Taken Comments Blood Pressure 100/58 09/05/2017 11:11 AM EST Pulse 64 09/05/2017 11:11 AM EST Temperature 36.8 ??C (98.2 ??F) 09/05/2017 11:[address] Respiratory Rate - - Oxygen Saturation - - Inhaled Oxygen Concentration - - Weight 64.7 kg (142 lb 9.6 oz) 09/05/2017 11:11 AM EST Height 157.5 cm (5' 2 ) 09/05/2017 11:11 AM EST Body Mass Index 26.08 09/05/2017 11:11 AM EST documented in this encounter Functional [...] Start Date End Date escitalopram oxalate (LEXAPRO) 20 mg Oral Tablet Take 1 Tab by mouth daily. 30 Tab 6 09/05/2017 11/10/2017 documented in this encounter Progress Notes * Suri Garduno MD - 09/05/2017 11:00 AM EST Vitals: 09/05/17 1111 BP: 100/58 BP Location: Left arm Patient Position: Sitting Pulse: 64 Temp: 98.2 ??F (36.8 ??C) TempSrc: Oral Weight: 142 lb 9.6 oz (64.7 kg) Height: 5' 2 (1.575 m) Chief Complaint Patient presents with ??? Anxiety HPI: Marleni Sy is here for follow up of chronic anxiety and medication management. Currently, She reports anxiety level as uncontrolled with current treatments in place. She reports taking current medications 1 times per day. She is not having side effects from medications. She hasabstained from alcohol while requiring this medication. Current limitations of anxiety symptoms include: ability to cope with day to day stress, and situations, without medication Doing well, No SE's with medication. No evidence of abuse/diversion. Pt informed and aware of medication's potential for abuse/dependence. Is taking the lexapro daily. She had to stop the klonopin due to it causing her to have severe diarrhea. Not drinking - says she hasn't had a drink since she left here. Crohn's - doing fine. No recent flairs. Review of Systems Constitutional: Negative for activity change, appetite change and fatigue. Respiratory: Negative for cough, chest tightness and shortness of breath. Cardiovascular: Negative for chest pain and leg swelling. Neurological: Negative for dizziness, syncope, weakness, light-headedness and headaches. Psychiatric/Behavioral: Negative for dysphoric mood. The patient is not nervous/anxious. Physical Exam Constitutional: She appears well-developed and well-nourished. No distress. Pulmonary/Chest: Effort normal. Skin: Skin is warm and dry. She is not diaphoretic. Psychiatric: She has a normal mood and affect. Her behavior is normal. Judgment and thought contentnormal. Nursing note and vitals reviewed. See time date stamps in the EMR for other pertient history components reviewed as part of today's encounter. [facility] Documentation Medication Compliance: Compliant all the time Understanding of Current Medications: Good Medication Compliance Barriers: None or N/A Self-Management Tools: N/A, no chronic conditions Self-Management Ability: Good Willingness to Adopt Healthy Behaviors: Good Potential Barriers to completing treatment plans today: No significant barriers [facility] Flowsheet was completed/reviewed as part of today's visit. Educated patient regarding the diagnosis, medication/treatment, goals, self- management tools and instructions based on their care plan. They verbalized understanding of the education given on the After Visit Summary [AVS] for today's visit. A copy of the AVS was provided either in writing and/or via MyChart. A new medicine was not prescribed on this visit. Assessment Diagnoses and all orders for this visit: Anxiety and depression Continue lexapro -will try increased dose Crohn's disease with complication, unspecified gastrointestinal tract location (HCC) (Chronic) Encouraged follow up with gi Alcoholism (HCC) (Chronic) Encouraged continued abstinance Other orders - escitalopram oxalate (LEXAPRO) 20 mg Oral Tablet; Take 1 Tab by mouth daily. Dispense: 30 Tab; Refill: 6 documented in this encounter Plan of Treatment Upcoming Encounters Date Type Department Care Team (Late st Contact Info) Description 09/11/2024 1:45 PM EST Office Visit [facility] [address] [place] [address] Swapnil Lopez MD [address] [place] [address] 10/21/2024 2:00 PM EST Appointment [facility] MRI [address] [place] [address] Jacky Shirley MD [address] [place] [address] [place] [address] 10/23/2024 1:45 PM EST Appointment [facility] [place] [address] Olena Darby APRN [address] [place] [address] [place] [address] documented as of this encounter Goals Goal Patient Goal Type Associated Problems Recent Progress Patient-Stated? Author Maintain a healthy diet, exercise regularly and maintain an ideal body weight General No Linda Walden, RMA documented as of this encounter Visit Diagnoses Diagnosis Anxiety and depression- Primary Dysthymic disorder Crohn's disease with complication, unspecified gastrointestinal tract location (HCC) Alcoholism (HCC) Other and unspecified alcohol dependence, unspecified drinking behavior documented in this encounter Discontinued Medications Medication Sig Discontinue Reason Start Date End Da te clonazePAM (KLONOPIN) 1 mg Oral Tablet Take 1 Tab by mouth 2 times daily as needed for Anxiety. DELETE-Therapy completed 07/25/2017 09/05/2017 escitalopram oxalate (LEXAPRO) 10 mg Oral Tablet Take 1 Tab by mouth daily. Reorder 07/25/2017 09/05/2017 documented as of this encounter Care Teams Electric Screw Driver Operator Relationship Specialty Start Date End Date Suri Garduno MD PCP - General Family Medicine 07/25/17 08/01/18 documented as of this encounter
--- OUTSIDE RECORDS SUMMARY | 2024-08-15 13:58 | XMS_ITS | Encounter Summary ---
Author Organization [place] [address] Care Team Providers Care Powder Room Attendant Name Role Phone Suri Garduno MD Primary Care Provider [phone] Reason for Referral * (Routine) - Closed Specialty Diagnoses / Procedures Referred By Contac t Referred To Contact Diagnoses Laceration of left great toe without foreign body present or damage to nail, initial encounter Procedures [facility] Darío Reese DPM [address] [address] Phone: tel: fax: Referral ID Status Reason Start Date Expiration Date Visits Re quested Visits Authorized [id number] Closed 11/16/2017 11/16/2018 1 1 Reason for Visit * Reason Comments Wound Check * Consultation (Routine) - Closed Specialty Diagnoses / Procedures Referred By Contac t Referred To Contact Wound Care Diagnoses Open wound of left foot, initial encounter Shreya Dumont MD [address] [place] [address] Phone: tel: fax: [facility] [place] [address] [place] [address] Phone: tel: fax: Referral ID Status Reason Start Date Expiration Date Visits Re quested Visits Authorized [id number] Closed 10/30/2017 10/30/2018 99 99 Encounter Details Date Type Department Care Team (Latest Contact Info) Description 11/16/2017 3:30 PM EST - 11/16/2017 11:59 PM EST Hospital Encounter [facility] [place] [address] [place] [address] Darío Reese, DPM [address] [place] [address] Laceration of left great toe without foreign body present or damage to nail, initial encounter (Primary Dx) Discharge Disposition: Home or Self [...] Sign Reading Time Taken Comments Blood Pressure 122/52 11/16/2017 3:40 PM EST Pulse 98 11/16/2017 3:40 PM EST Temperature 36.9 ??C (98.4 ??F) 11/16/2017 3:40 PM ES T Respiratory Rate 20 11/16/2017 3:40 PM EST Oxygen Saturation - - Inhaled [...] of Discharge traMADol (ULTRAM) 50 mg Oral TabletIndications :Skin ulcer of toe of left foot with fat layer exposed (HCC) Take 1 Tab by mouth every 6 hours as needed for Pain for up to 10 days. 30 Tab 11/10/2017 11/20/2017 documented as of this encounter Discharge Disposition Disposition Code Departure Means Destination Home or Self Care documented in this encounter Progress Notes * Darío Reese, DPM - 11/16/2017 3:30 PM EST Date of Visit:11/16/2017 Presenting Chief Complaint/Reason for Consultation: Chief Complaint Patient presents with ??? Wound Check HPI Marleni Sy is a 57 y.o. year old female patient Patient dropped a Plate on her kitchen floorabout 2 weeks ago and then subsequently cut the bottom of her left great toe on a piece of glass that she did not see. Patient treated the area with hydrogen peroxide. Patient states that she also put pepper to help with hemostasis. states that she has tried multiple home remedies to this point. She did not proceed to the emergency room. [place] as though she could take care of the sore herself. Patient is not diabetic. No fevers or chills. No nausea, vomiting, or diarrhea. Medical History: Past Medical History: Diagnosis Date ??? Anemia ??? Cancer (HCC) ??? Crohn disease (HCC) ??? Encounter for blood transfusion Past Surgical History: Procedure Laterality Date ??? SECTION x2 ??? COLON SURGERY x11 crohns ??? COLOSTOMY ??? ILEOSTOMY OR JEJUNOSTOMY ??? UPPER GASTROINTESTINAL ENDOSCOPY N/A 06/25/2016 ESOPHAGOGASTRODUODENOSCOPY with biopsy with conscious sedation; Surgeon: Christopher Matthews MD PHD; Location: [facility]; Service: Endoscopy Medications: Current Outpatient Prescriptions: ??? traMADol (ULTRAM) 50 mg Oral Tablet, Take 1 Tab by mouth every 6 hours as needed for Pain for up to 10 days., Disp: 30 Tab, Rfl: 0 Allergies: Allergies Allergen Reactions ??? Sulfa (Sulfonamide Antibiotics) Social History: Social History Substance Use Topics ??? Smoking status: Never Smoker ??? Smokeless tobacco: Never Used ??? Alcohol use Yes Comment: liane; states that she drank before coming today Family History: Family History Problem Relation Age of Onset ??? Heart Disease Father Review of systems is essentially negative today. No difficulties with head eyes ears nose or throat. No GI or complaints. No respiratory problems. No significant joint pains. Physical Exam: Vitals: 11/16/17 1540 BP: 122/52 Pulse: 98 Resp: 20 Temp: 98.4 ??F (36.9 ??C) TempSrc: Oral Review general history and physical as performed by Dr. Henson. Constitutional Exam: Alert, calm, cooperative, pleasant, middle-aged white female in no acute distress HENT Exam: Head: Normocephalic. Eyes: Pupils are reactive to light. Extraocular movements are intact. Cardiovascular Exam: Cardiac: Regular rhythm, normal rate. No murmurs. No jugular distention. Respiratory Exam: Normal respiratory rate and effort No wheezing or rales. Normal air movement. Normal breath sounds. Integumentary: No rashes. Abdominal: Soft, nontender, nondistended, active bowel sounds, no hepatosplenomegaly. Vascular: 2+ DPs/PT pulses in lower extremities. No edema noted. Normal capillary refill. Neurological Exam: Level of consciousness: Alert and oriented times four. Cranial nerves intact. Motor function is grossly intact. Sensory function grossly intact. Psychological: Normal affect. Ulcer Progress and Procedure Please refer to the LDA for details of ulcer progress and procedure. Open wound to the plantar aspect of the left great toe. Some mild bleeding is noted at this time. Flap resulting from the lacerations appears still to be viable. There is edema to the toe but expected. There is no gross evidence of infection I can appreciate at this time. Evaluated pedal pulse at this time. Pt is noted to have palpable pulses of the DP and PT pulses. CFT is approximately less than 3 secs and perfusion clinically appears adequate. Assessment and Plan Marleni was seen today for wound check. Diagnoses and all orders for this visit: Laceration of left great toe without foreign body present or damage to nail, initial encounter - [facility] Other orders - lidocaine (XYLOCAINE) 5 % ointment; Apply topically once. Laceration left great toe 2 weeks ago - Never sought medical attention. No signs of infection. Cleanse the area with normal saline. At this time help to reduce tension on the side of the laceration utilizing Steri-Strips. Change these every 2-3 days. No more home remedies to be applied. Surgical intervention not in the plan at the present time. Plan/ Steri stripped distal aspect of flap today Continue Surgical shoe F/U 1 week Call with any s/s of infection documented in this encounter Miscellaneous Notes * Patient Instructions - Audelia Duncan RN - 11/16/2017 3:30 PM EST Follow up in wound care next Hugh Steri strips applied per Dr. Henson, clean with saline , adaptic 2x2 and roll gauze 1 inch coban. Keep clean and dry. Follow Up Instructions Check wound and surrounding skin for signs and symptoms of infection, such as fever, increase in redness, increase in amount of drainage or a foul odor from the drainage. Should you experience any of the above symptoms, notice a significant change in the wound, or have questions or problems following these instructions, please contact the Wound Care Center at: [facility] [phone] [place] [phone] Or call your Primary Care Physician or go to the nearest urgent care center. Stop smoking. Take a multivitamin daily as prescribed and follow a nutritious diet. documented in this encounter Plan of Treatment Upcoming Encounters Date Type Department Care Team (Late st Contact Info) Description 09/11/2024 1:45 PM EST Office Visit [facility] [address] [facility] [place] [address] Swapnil Lopez MD [address] [facility] [address] 10/21/2024 2:00 PM EST Appointment [facility] [address] [place] [address] Jacky Shirley MD [address] [facility] [place], [place] [id number] 10/23/2024 1:45 PM EST Appointment [facility] [place], [place] [id number] Olena Darby APRN [address] [place] [id number] documented as of this encounter Goals Goal Patient Goal Type Associated Problems Recent Progress Patient-Stated? Author Maintain a healthy diet, exercise regularly and maintain an ideal body weight General No Linda Walden, RMA documented as of this encounter Visit Diagnoses Diagnosis Laceration of left great toe without foreign body present or damage to nail, initial encounter- Primary documented in this encounter Administered Medications Inactive Administered Medications - up to 1 most recent administrations Medication Order MAR Action Action Date Dose Rate Site lidocaine (XYLOCAINE) 5 % ointment Topical, ONCE, 1 dose, On Ashlie 11/16/17 at 1600 Given 11/16/2017 3:48 PM EST documented in this encounter Orders Medications Ordered That Paul ht Not Have Been Administered Count Last Ordered Date First Ordered Date lidocaine (XYLOCAINE) 5 % ointment 1 2017 Nursing Count Last Ordered Date First Orde red Date [facility] 1 11/16/2017 documented in this encounter Care Teams Powder Room Attendant Relationship Specialty Start Date End Date Suri Garduno MD PCP - General Family Medicine 07/25/17 08/01/18 documented as of this encounter
--- OUTSIDE RECORDS SUMMARY | 2024-08-15 13:58 | XMS_ITS | Encounter Summary ---
Author Organization [place] [address] Care Team Providers Care Shell Maker Lockstitch Name Role Phone Franklin Manzanares DO, Viral Primary Care Provider [phone] Reason for Visit * Reason Onset Date Comments Other 12/18/2014 Encounter Details Date Type Department Care Team (Late st Contact Info) Description 12/18/2014 Telephone [facility] [address] [place] [address] Laura Navas LPN [address] [place] [address] Other Social History Tobacco Use Types Packs/Day [...] encounter Miscellaneous Notes * Telephone Encounter - Laura Navas LPN - 12/25/2014 8:13 AM EDT other documented in this encounter Plan of Treatment Upcoming Encounters Date Type Department Care Team (Late st Contact Info) Description 09/11/2024 1:45 PM EST Office Visit [facility] [address] [facility], [place] [id number] Swapnil Lopez MD [address] [facility] [id number] 10/21/2024 2:[address] [facility] MRI [address] [place] [address] Jacky Shirley MD [address] [place] [address] [facility] [place], [place] [id number] 10/23/2024 1:45 PM EST Appointment [facility] [place], [place] [id number] Olena Darby APRN [address] [place] [address] [facility] [place], [place] [id number] documented as of this encounter Visit Diagnoses Not on filedocumented in this encounter Care Teams Shell Maker Lockstitch Relationship Specialty Start Date End Date Alejandro Reid DO [address] [place] [id number] PCP - General Family Medicine 06/25/14 07/29/15 documented as of this encounter
--- OUTSIDE RECORDS SUMMARY | 2024-08-15 13:58 | XMS_ITS | Encounter Summary ---
Author Organization [place] [address] Care Team Providers Care Bus Girl Name Role Phone Franklin Manzanares DO, Viral Primary Care Provider [phone] Reason for Visit * Reason Comments Airway Obstruction Pt seen at [facility]. Sent to have Scope by Dr. Welsh. Encounter Details Date Type Department Care Team (Late st Contact Info) Description 06/25/2016 11:06 AM EDT - 06/25/2016 12:52 PM EDT [facility] [place] [address] Thompson Savage MD [address] [place] [address] [place] [address] Christopher Matthews MD PHD [address] [place] [address] Discharge Disposition: Home or Self Care Social [...] Sign Reading Time Taken Comments Blood Pressure 116/60 06/25/2016 10:56 AM EDT Pulse 96 06/25/2016 11:29 AM EDT Temperature 36.3 ??C (97.3 ??F) 06/25/2016 10:56 AM E DT Respiratory Rate 16 06/25/2016 11:29 AM EDT Oxygen Saturation 95% 06/25/2016 10:56 AM EDT Inhaled Oxygen Concentration - - Weight 49.9 kg (110 lb) 06/25/2016 10:56 AM EDT Height 157.5 cm (5' 2 ) 06/25/2016 10:56 AM EDT Body Mass Index 20.12 06/25/2016 10:56 AM EDT documented in this encounter Discharge Instructions * Discharge Instructions* Christopher Bolton RN - 06/25/2016 2:45 PM EDT Images from the original note were not included. [facility] Discharge Instructions - Following Endoscopy 1. A [...] INSTRUCTIONS: Call Dr. Christopher Matthews PhD. at [phone] if the following occurs: EGD: Abdominal pains, [...] caregiver who specializes in the digestive system (furnace room supervisor). In a few cases, a specialist may [...] 12/10/2012 Document Reviewed: 03/08/2011 ExitCare?? Patient Information ??2014 [employer]. This information is not intended to replace [...] Code Departure Means Destination Home or Self Halfway documented in this encounter Procedure Notes * Christopher Matthews MD PHD - 06/25/2016 12:52 PM EDT [facility] OPERATIVE/PROCEDURE NOTE Ra Rosales June 25, 2016 [...] duodenum biopsy Christopher Matthews MD PHD 06/25/2016 1359 Pathology 2 : gastric biopsy Christopher Matthews MD PHD 06/25/2016 135 Pathology 3 : esophagus biopsy Christopher Matthews MD PHD 06/25/2016 135 Pathology ESTIMATED BLOOD LOSS: * No values [...] MD PHD - 06/25/2016 11:16 AM EDT [facility] Gastroenterology Consult Note Primary Care Physician: [...] stuck before. Today she presented to the [facility] ED, where she was given Ativan and glucagon, neither of which helped. She was unable to tolerate Coca-Cola given to her. She reports a long history of Crohn's disease and notes that she uses only occasional prednisone as treatment - her furnace room supervisor is at [facility]. Past Medical History: Past Medical History Diagnosis [...] Christopher Matthews MD PHD, 06/25/2016 11:17 AM Issuing Operator [facility] [phone] documented in this encounter ED Notes * Kylie Fernandez RN - 06/25/2016 12:10 PM EDT To Endo per SPD. documented in this encounter Plan of Treatment Upcoming Encounters Date Type Department Care Team (Late st Contact Info) Description 09/11/2024 1:45 PM EST Office Visit [facility] [address] [facility] [place] [address] Swapnil Lopez MD [address] [place] [address] 10/21/2024 2:00 PM EST Appointment [facility] MRI [address] [place] [address] Jacky Shirley MD [address] [place] [address] [place], [place] [id number] 10/23/2024 1:45 PM EST Appointment [facility] [place] [address] Olena Darby APRN [address] [place] [address] [phone] Scheduled Orders Name Type Priority Associated Diagnoses [...] Number ?Collected Date/Time ? Received Date/Time ? [id number] ? 06/25/16 13:32 EDT ?06/27/16 11:45 EDT [...] and the findings corroborate the ? diagnosis. [facility] 06/25/2016 1:32 PM EDT us Christopher Matthews MD PHD PATHOLOGY ORDERABLES Final Result Performing Organization Address [facility] de Phone Number [address] [address] * (ABNORMAL) PT / INR (06/25/2016 11:28 AM EDT) PT 13.5(H) 10.1 - 12.9 second(s) [facility] INR 1.17(H) 0.88 - 1.12 [facility] Comment: Level of Therapy ??Indications ??Target INR Range Standard Dose Treatment and prophylaxis of venous 2.0 - 3.0 ??thrombosis, pulmonary embolism ?High Dose High risk patients with mechanical ?2.5 - 3.5 ??heart valves Blood specimen (specimen) UPPER LIMB STRUCTURE / Unknown 06/25/2016 11:28 AM EDT 06/25/2016 11:47 AM EDT us Thompson Savage MD HEMATOLOGY ORDERABLES Final Res ult Performing Organization Address [facility] de Phone Number [address] [address] * (ABNORMAL) DIFFERENTIAL (06/25/2016 11:25 AM EDT) Pathologist [facility] Neut Percent 80.6 % [facility] Lymph Percent 13.5 % [facility] Evans Percent 5.3 % [facility] Eos Percent 0.3 % [facility] Baso Percent 0.3 % [facility] Neut# 12.2(H) 1.8 - 7.7 x10(3)/mcL [facility] Lymph# 2.0 0.6 - 4.8 x10(3)/mcL [facility] Evans# 0.8 0.0 - 1.3 x10(3)/mcL [facility] Eos# 0.0 0.0 - 0.5 x10(3)/mcL [facility] Baso# 0.0 0.0 - 0.2 x10(3)/[facility] Blood specimen (specimen) 06/25/2016 11:25 AM EDT 06/25/2016 11:45 AM EDT us Thompson Savage MD HEMATOLOGY ORDERABLES Final Res ult [facility] [address] [place] [address] * (ABNORMAL) COMPREHENSIVE METABOLIC PANEL (06/25/2016 11:25 AM EDT) [facility] Sodium 141 136 - 145 mmol/L [facility] Potassium 4.0 3.5 - 5.0 mmol/L [facility] Chloride 99 98 - 107 mmol/L [facility] Total CO2 22 22 - 29 mmol/L [facility] Anion Gap 20(H) 7 - 16 mmol/L [facility] Calcium 10.0 8.6 - 10.2 mg/dL [facility] Glucose Lvl 95 74 - 100 mg/dL [facility] BUN 24(H) 6 - 20 mg/dL [facility] Creatinine 0.60 0.51 - 1.30 mg/dL [facility] Albumin 4.5 3.5 - 5.2 gm/dL [facility] Total Protein 8.6(H) 6.4 - 8.3 gm/dL [facility] Bili Total 0.6 0.1 - 1.3 mg/dL [facility] AST 18 <=40 IU/L [facility] ALT 7 <=41 IU/L [facility] Alk Phos 91 35 - 104 IU/L [facility] GFR Afr Am >60 [facility] GFR Non Afr Am >60 [facility] Blood specimen (specimen) UPPER LIMB STRUCTURE / Unknown 06/25/2016 11:25 AM EDT 06/25/2016 11:45 AM EDT us Thompson Savage MD CHEMISTRY ORDERABLES Final Resu lt Performing Organization Address City/[facility] Co de Phone Number [facility] [address] [place] [address] * (ABNORMAL) CBC WITH AUTO DIFF (06/25/2016 11:25 AM EDT) WBC 15.1(H) 4.0 - 11.0 x10(3)/mcL [facility] RBC 4.83 3.80 - 5.10 x10(6)/mcL [facility] Hgb 13.8 12.0 - 15.6 gm/dL [facility] Hct 40.6 35.7 - 45.9 % [facility] MCV 84.0 82.5 - 99.8 fL [facility] MCH 28.5 27.0 - 34.3 pg [facility] MCHC 33.9 32.1 - 35.3 gm/dL [facility] RDW 12.9 11.5 - 15.0 % [facility] Platelet 329 144 - 423 x10(3)/mcL [facility] MPV 7.3 6.8 - 10.8 fL [facility] Blood specimen (specimen) UPPER LIMB STRUCTURE / Unknown 06/25/2016 11:25 AM EDT 06/25/2016 11:45 AM EDT us Thompson Savage MD HEMATOLOGY ORDERABLES Final Res ult [facility] [address] [place] [id number] documented in this encounter Visit Diagnoses Not on filedocumented in this encounter Administered Medications Inactive Administered Medications - up to 1 most recent administrations Medication Order MAR Action Action Date Dose Rate Site morphine injection 4 mg 4 mg, Intravenous, [...] 1130 1138 (Given - Provid er: Kylie Fernandez RN) ondansetron (ZOFRAN) 4 mg/2 mL injection 4 mg (COMPLETED) 4 mg, Intravenous, ONCE, 1 dose, On 06/25/16 at 1130 1138 (Given - Provid er: Kylie Fernandez RN) sodium chloride 0.9 % 1,000 mL IV bolus (COMPLETED) Intravenous, ONCE, 1 dose, On 06/25/16 at 1145, at 983.6 mL/hr 1138 (IV Started - P rovider: Kylie Fernandez, RN)1239 (Due: Stopped - Provider: Kylie Fernandez [...] Damaris Luong RN)1350 (Given - Provider: Damaris Luong, ANGE)1353 (Given - Provider: Damaris Luong RN)1357 (Given - Provider: Damaris Luong RN) midazolam (VERSED) injection (CANCELED) PRN, Starting on 06/25/16 at 1342, Until 06/25/16 at 1514, Intra-procedure(ENDO) 1342 (Given - Provid er: Damaris Luong RN)1346 (Given - Provider: Damaris Luong RN)1350 (Given - Provider: Damaris Luong, ANGE)1353 (Given - Provider: Damaris Luong RN)1357 (Given - Provider: Damaris Luong RN) sodium chloride 0.9% syringe Intravenous, PRN, Starting on 06/25/16 at 1115, Until 06/25/16 at 1653, Line Care, Flush with 5-10 mL saline pre/post IVP, and 5 mL prior to IVPB administration. documented in this encounter Orders Medications Ordered That Paul ht Not Have Been Administered Count Last Ordered Date First Ordered Date diphenhydrAMINE (BENADRYL) injection 06/03 fentaNYL (SUBLIMAZE) 50 mcg/mL injection 06/25/2016 midazolam (VERSED) injection 1 06/25/2016 nitroGLYCERIN (NITROSTAT) SL tablet 0.4 mg 1 06/25/2016 sodium chloride 0.9% syringe 1 06/25/2016 documented in this encounter Care Teams Bus Girl Relationship Specialty Start Date End Date Alejandro Reid DO [address] [place] [id number] PCP - General Family Medicine 06/25/16 12/14/16 documented as of this encounter
--- OUTSIDE RECORDS SUMMARY | 2024-08-15 13:58 | XMS_ITS | Encounter Summary ---
Author Organization [place] [address] Care Team Providers Care Supervisor Matrix Name Role Phone Suri Garduno MD Primary Care Provider Reason for Visit * Reason Onset Date Comments Care Management - Chart Review 10/27/2017 E D d/c on 10/27/17 reviewed ED Follow-Up Call 10/27/2017 Encounter Details Date Type Department Care Team (Late st Contact Info) Description 10/27/2017 Patient Outreach [facility] [address] [place] [address] Kristina Whipple LPN Care Management - Chart Review (ED d/c on 10/27/17 reviewed ); ED Follow-Up Call Social History Tobacco Use [...] documented in this encounter Progress Notes * Kristina Whipple LPN - 10/27/2017 8:56 AM EST ED discharge on 10/27/17 reviewed. Pt not a candidate to be followed by [facility] at this time. Pt appropriate for MD level 1. documented in this encounter Plan of Treatment Upcoming Encounters Date Type Department Care Team (Late st Contact Info) Description 09/11/2024 1:45 PM EST Office Visit [facility] [address] [place] [address] Swapnil Lopez MD [address] [place] [address] 10/21/2024 2:[address] [facility] MRI [address] [place] [address] Jacky Shirley MD [address] [place] [address] CANCER CARE [place], [place] [id number] 10/23/2024 1:45 PM EST Appointment [facility] [place] [address] Olena Darby APRN [address] [place] [address] [place] [address] documented as of this encounter Goals Goal Patient Goal Type Associated Problems Recent Progress Patient-Stated? Author Maintain a healthy diet, exercise regularly and maintain an ideal body weight General No Linda Walden, RMA documented as of this encounter Visit Diagnoses Not on filedocumented in this encounter Care Teams Supervisor Matrix Relationship Specialty Start Date End Date Suri Garduno MD PCP - General Family Medicine 07/25/17 08/01/18 documented as of this encounter
--- OUTSIDE RECORDS SUMMARY | 2024-08-15 13:58 | XMS_ITS | Encounter Summary ---
Author Organization [place] [address] Care Team Providers Care Veterinarian Helper Name Role Phone Suri Garduno MD Primary Care Provider [phone] Encounter Details Date Type Department Care Team (Latest Contact Info) Description 11/10/2017 10:50 AM EST - 11/10/2017 11:59 PM [facility] Hospital Encounter FTT XRAY [address] [place] [address] Skin ulcer of toe of left foot with fat layer exposed (HCC) Discharge Disposition: Home or Self Care [...] PM EST Office Visit [facility] [address] [place] [address] Swapnil Lopez MD [address] [place] [address] 10/21/2024 2:00 PM EST Appointment [facility] MRI [address] [place] [address] Jacky Shirley MD [address] [place] [address] [place] [address] 10/23/2024 1:45 PM EST Appointment [facility] [place] [address] Olena Darby APRN [address] [facility] [place] [address] documented as of this encounter Goals Goal Patient Goal Type Associated Problems Recent Progress Patient-Stated? Author Maintain a healthy diet, exercise regularly and maintain an ideal body weight General No Linda Walden, RMA documented as of this encounter Procedures Procedure Name Priority Date/Time Associated Diagnosis Comments XR TOE LEFT 2 + VW Routine 11/10/2017 11 :15 AM EST Skin ulcer of toe of left foot with fat layer exposed (HCC) documented in this encounter Results * XR TOE LEFT 2 + VW (11/10/2017 11:15 AM EST) Anatomical Region Laterality Modality Foot Radiographic Leora ging 11/10/2017 11:1 5 AM EST Impressions 11/10/2017 12:17 PM EST Some questionable cortical disruption lateral aspect base distal phalanx great toe. This may indicate osteomyelitis. Narrative 11/10/2017 12:17 PM EST XR TOE LEFT 2 + VW, ??11/10/2017 11:15 AM CLINICAL HISTORY: ??L97.148-Xul-rabofzkl chronic ulcer of other part of left foot with fat layer [id number] COMPARISON: ??10/09/2007 PROCEDURE COMMENTS: Routine imaging per protocol. FINDINGS: There is soft tissue swelling about the great toe. Best identified on the oblique views there is some slight cortical disruption along the lateral aspect of the base of the distal phalanx great toe. This may indicate osteomyelitis. No foreign bodies identified. Procedure Note Eliazar Shell III, MD - 11/10/2017 XR TOE LEFT 2 + VW, 11/10/2017 11:15 AM CLINICAL HISTORY: L97.112-Dik-bigljuko chronic ulcer of other part ofleft foot with fat layer [id number] COMPARISON: 10/09/2007 PROCEDURE COMMENTS: Routine imaging per protocol. FINDINGS: There is soft tissue swelling about the great toe. Best identified onthe oblique views there is some slight cortical disruption along the lateralaspect of the base of the distal phalanx great toe. This may indicateosteomyelitis. No foreign bodies identified. IMPRESSION: Some questionable cortical disruption lateral aspect base distal phalanxgreat toe. This may indicate osteomyelitis. us Oc Henson MD IMG DIAGNOSTIC IMAGING ORDERAB LES Final Result documented in this encounter Visit Diagnoses Diagnosis Skin ulcer of toe of left foot with fat layer exposed (HCC) documented in this encounter Care Teams Veterinarian Helper Relationship Specialty Start Date End Date Suri Garduno MD PCP - General Family Medicine 07/25/17 08/01/18 documented as of this encounter
--- OUTSIDE RECORDS SUMMARY | 2024-08-15 13:58 | XMS_ITS | Encounter Summary ---
Author Organization [place] [address] Care Team Providers Care Career Services Director Name Role Phone Suri Garduno MD Primary Care Provider [phone] Reason for Visit * Reason Onset Date Comments Medication Problem 07/27/2017 Encounter Details Date Type Department Care Team (Late st Contact Info) Description 07/27/2017 Telephone [employer] [employer] [address] [place] [address] Suri Garduno MD [address] [place] [address] Medication Problem Social History Tobacco [...] Miscellaneous Notes * Telephone Encounter - Linda Bauman RMA - 07/27/2017 4:31 PM EDT LMOM per [facility] * Telephone Encounter - Suri Garduno MD - 07/27/2017 4:09 PM EDT Has she tried half a dose? If that's too much let me know and we can call in a very small dose of ativan. * Telephone Encounter - Alicia Bernabe - 07/27/2017 3:49 PM EDT The clonazePAM (KLONOPIN) 1 mg Oral Tablet is knocking her out all day. She fell asleep at 8:00am and did not get up until 3:00. She slept all night and got up and slept all day. What else can she take? documented in this encounter Plan of Treatment Upcoming Encounters Date Type Department Care Team (Late st Contact Info) Description 09/11/2024 1:45 PM EST Office Visit [facility] [address] [place] [address] Swapnil Lopez MD [address] [place] [address] 10/21/2024 2:00 PM EST Appointment [facility] MRI [address] [place] [address] Jacky Shirley MD [address] [place] [address] [place] [address] 10/23/2024 1:45 PM EST Appointment [facility] [place] [address] Olena Darby APRN [address] [place] [address] [place] [address] documented as of this encounter Goals Goal Patient Goal Type Associated Problems Recent Progress Patient-Stated? Author Maintain a healthy diet, exercise regularly and maintain an ideal body weight General No Linda Walden, RMA documented as of this encounter Visit Diagnoses Not on filedocumented in this encounter Care Teams Career Services Director Relationship Specialty Start Date End Date Suri Garduno MD PCP - General Family Medicine 07/25/17 08/01/18 documented as of this encounter
--- OUTSIDE RECORDS SUMMARY | 2024-08-15 13:58 | XMS_ITS | Encounter Summary ---
Author Organization [place] [address] Care Team Providers Care Roll Forming Machine Set Up Mechanic Name Role Phone Suri Garduno MD Primary Care Provider [phone] Reason for Visit * Reason Comments Extremity Laceration stepped on glass an d has laceration to left big to. tdap up to date. Encounter Details Date Type Department Care Team (Late st Contact Info) Description 10/27/2017 12:36 AM EST - 10/27/2017 12:56 AM EST Emergency [facility] Emergency [address] [place] [address] Discharge Disposition: Home or Self Care Social [...] Garza RMA documented in this encounter Discharge Disposition Disposition Code Departure Means Destination Comment s Home or Self Senior Care pt didn't want to be seen and left, advised to see PCP ANNA for tetnus and tx documented in this encounter Plan of Treatment Upcoming Encounters Date Type Department Care Team (Late st Contact Info) Description 09/11/2024 1:45 PM EST Office Visit [facility] [address] [place] [address] Swapnil Lopez MD [address] [place] [address] 10/21/2024 2:00 PM EST Appointment [facility] [address] [place] [address] Jacky Shirley MD [address] [place] [address] [place] [address] 10/23/2024 1:45 PM EST Appointment [facility] [place] [address] Olena Darby APRN [address] [place] [address] documented as of this encounter Goals Goal Patient Goal Type Associated Problems Recent Progress Patient-Stated? Author Maintain a healthy diet, exercise regularly and maintain an ideal body weight General No Linda Walden, RMA documented as of this encounter Visit Diagnoses Not on filedocumented in this encounter Care Teams Roll Forming Machine Set Up Mechanic Relationship Specialty Start Date End Date Suri Garduno MD PCP - General Family Medicine 07/25/17 08/01/18 documented as of this encounter
--- OUTSIDE RECORDS SUMMARY | 2024-08-15 13:58 | XMS_ITS | Encounter Summary ---
Author Organization [place] [address] Care Team Providers Care Pre Sales Technical Consultant Name Role Phone Suri Garduno MD Primary Care Provider [phone] Reason for Referral * (Routine) - Closed Specialty Diagnoses / Procedures Referred By Contac t Referred To Contact Diagnoses Skin ulcer of toe of left foot with fat layer exposed (HCC) Procedures [facility] PRIMARY DRESSING Oc Henson MD [facility] [place] [address] Phone: tel: fax: Referral ID Status Reason Start Date Expiration Date Visits Re quested Visits Authorized [id number] Closed 11/10/2017 11/10/2018 1 1 Reason for Visit * Reason Comments Wound Check * Consultation (Routine) - Closed Specialty Diagnoses / Procedures Referred By Contac t Referred To Contact Wound Care Diagnoses Open wound of left foot, initial encounter Shreya Dumont MD [address] [place] [address] Phone: tel: fax: [facility] [place] [address] [place] [address] Phone: tel: fax: Referral ID Status Reason Start Date Expiration Date Visits Re quested Visits Authorized [id number] Closed 10/30/2017 10/30/2018 99 99 Encounter Details Date Type Department Care Team (Latest Contact Info) Description 11/10/2017 8:45 AM EST - 11/10/2017 10:49 AM EST Hospital Encounter [facility] [address] [place] [address] Oc Henson MD [facility] [place] [address] Skin ulcer of left great toe with necrosis of muscle (HCC) (Primary Dx); Skin ulcer of toe of left foot with fat layer exposed (HCC); Crohn's disease of colon with complication (HCC); Laceration of left great toe without foreign body present or damage to nail, initial encounter Discharge Disposition: Home or Self Care Social [...] Sign Reading Time Taken Comments Blood Pressure 143/81 11/10/2017 9:22 AM EST Pulse 69 11/10/2017 9:22 AM EST Temperature 36.8 ??C (98.2 ??F) 11/10/2017 9:22 AM ES T Respiratory Rate 16 11/10/2017 9:22 AM EST Oxygen Saturation - - Inhaled Oxygen Concentration - - Weight 52.2 kg (115 lb) 11/10/2017 9:22 AM EST Height 157.5 cm (5' 2 ) 11/10/2017 9:22 AM EST Body Mass Index 21.03 11/10/2017 9:22 AM EST documented in this encounter [...] 11/10/2017 11/20/2017 documented as of this encounter Ordered Prescriptions Prescription Sig Dispense Quantity Refills Last Filled Start Date End Date traMADol (ULTRAM) 50 mg Oral TabletIndications: Skin ulcer of toe of left foot with fat layer exposed (HCC) Take 1 Tab by mouth every 6 hours as needed for Pain for up to 10 days. 30 Tab 11/10/2017 11/20/2017 documented in this encounter Discharge Disposition Disposition Code Departure Means Destination Home or Self Care documented in this encounter Progress Notes * Oc Henson MD - 11/10/2017 8:45 AM EST Date of Visit: 11/10/2017 Referring Provider: Shreya Dumont MD [address] [place] [address] [place] [address] Presenting Chief Complaint/Reason for Consultation: Chief Complaint Patient presents with ??? Wound Check HPI Ra Rosales is a 57 y.o. year old female patient w/ Crohns disease status post colon surgery w/ ileostomy who was not on any medications for this at present and history of stomach cancer. Patient dropped a bladder on her kitchen floor about 2 weeks ago and then subsequently cut the bottom of her left great toe on a piece of glass that she did not see. This caused a large and deep soft tissue avulsion injury to the plantar aspect of her left great toe. Unfortunately, patient did not seek medical assistance. She started keeping it clean with soapy water and hydrogen peroxide and applying a Band-Aid. She then saw her primary care physician on 10/30/17 with a poorly healing avulsion injury with a soft tissue flap, and was subsequently referred to us for assistance with wound management. Patient is not diabetic. She denies increasing toe pain, redness, or swelling. Not been on any antibiotics. No fevers or chills. No nausea, vomiting, or diarrhea. She has never smoked and denies a history of PVD. ABIs in the clinic today were 0.97 on the right and 0.96 on the left. Medical History: Past Medical History: Diagnosis Date ??? Anemia ??? Cancer (HCC) ??? Crohn disease (HCC) ??? Encounter for blood transfusion Past Surgical History: Procedure Laterality Date ??? SECTION x2 ??? COLON SURGERY x11 crohns ??? COLOSTOMY ??? ILEOSTOMY OR JEJUNOSTOMY ??? UPPER GASTROINTESTINAL ENDOSCOPY N/A 06/25/2016 ESOPHAGOGASTRODUODENOSCOPY with biopsy with conscious sedation; Surgeon: Christopher Matthews MD PHD; Location: [facility]; Service: Endoscopy Medications: Current Outpatient Prescriptions: [...] of Onset ??? Heart Disease Father Review Of Systems: CONSTITUTIONAL: Negative. HEENT: Negative PULMONARY: Negative CARDIAC: Negative GI: Negative : Negative MS: Negative NEURO: Negative PSYCH: Negative SKIN: Negative ENDOCRINE: Negative Physical Exam: Vitals: 11/10/17 0922 BP: 143/81 BP Location: Right arm Patient Position: Semi Fowlers Pulse: 69 Resp: 16 Temp: 98.2 ??F (36.8 ??C) TempSrc: Oral Weight: 115 lb (52.2 kg) Height: 5' 2 (1.575 m) Constitutional Exam: Alert, calm, cooperative, pleasant, middle-aged white female in no acute distress HENT Exam: Head: Normocephalic. Eyes: Pupils are reactive to light. Extraocular movements are intact. Cardiovascular Exam: Cardiac: Regular rhythm, normal rate. No murmurs. No jugular distention. Respiratory Exam: Normal respiratory rate and effort No wheezing or rales. Normal air movement. Normal breath sounds. Musculoskeletal Exam: Full range of motion without clubbing, cyanosis, or edema. Examination of theleft great toe reveals mild swelling with a deep elliptical laceration over the plantar toe with a large soft tissue avulsion flap which appears stuck down proximally but is poorly stuck down distally. There is an elliptical, gaping, soft tissue ulcer which is fairly deep and extends down to level of fascia. Adherent to this is some debris and sock fuzz all of which was debrided off of the wound today. Wound was debrided down to good bleeding tissue. No exposed tendons or bone. After the distalaspect of the wound was cleaned, the distal flap was Steri-Stripped and effort to try to pull edges together more. No signs of overt infection. No necrosis, pus, or cellulitis. Edges of soft tissue flap very viable. Integumentary: No rashes. Abdominal: Soft, nontender, nondistended, active bowel sounds, no hepatosplenomegaly. Vascular: 2+ DPs/PT pulses in lower extremities. No edema noted. Normal capillary refill. Neurological Exam: Level of consciousness: Alert and oriented times four. Cranial nerves intact. Motor function is grossly intact. Sensory function grossly intact. Psychological: Normal affect. Results for RA ROSALES ( ) as of 11/10/2017 11:39 Ref. Range 06/25/2016 11:25 06/25/2016 11:28 Sodium Latest Ref Range: 136 - 145 mmol/L 141 Potassium Latest Ref Range: 3.5 - 5.0 mmol/L 4.0 Chloride Latest Ref Range: 98 - 107 mmol/L 99 CO2 Latest Ref Range: 22 - 29 mmol/L 22 Calcium Latest Ref Range: 8.6 - 10.2 mg/dL 10.0 Glucose Latest Ref Range: 74 - 100 mg/dL 95 BUN Latest Ref Range: 6 - 20 mg/dL 24 (H) Creatinine, Ser Latest Ref Range: 0.51 - 1.30 mg/dL 0.60 GFR Afr Am Unknown >60 GFR Non Afr Am Unknown >60 Albumin Latest Ref Range: 3.5 - 5.2 gm/dL 4.5 Alk Phos Latest Ref Range: 35 - 104 IU/L 91 Anion Gap Latest Ref Range: 7 - 16 mmol/L 20 (H) Total Protein Latest Ref Range: 6.4 - 8.3 gm/dL 8.6 (H) ALT Latest Ref Range: <=41 IU/L 7 AST Latest Ref Range: <=40 IU/L 18 Bili Total Latest Ref Range: 0.1 - 1.3 mg/dL 0.6 Hct Latest Ref Range: 35.7 - 45.9 % 40.6 INR Latest Ref Range: 0.88 - 1.12 1.17 (H) PT Latest Ref Range: 10.1 - 12.9 second(s) 13.5 (H) WBC Latest Ref Range: 4.0 - 11.0 x10(3)/mcL 15.1 (H) RBC Latest Ref Range: 3.80 - 5.10 x10(6)/mcL 4.83 Hgb Latest Ref Range: 12.0 - 15.6 gm/dL 13.8 MCV Latest Ref Range: 82.5 - 99.8 fL 84.0 MCH Latest Ref Range: 27.0 - 34.3 pg 28.5 MCHC Latest Ref Range: 32.1 - 35.3 gm/dL 33.9 RDW Latest Ref Range: 11.5 - 15.0 % 12.9 Platelets Latest Ref Range: 144 - 423 x10(3)/mcL 329 MPV Latest Ref Range: 6.8 - 10.8 fL 7.3 Neut Percent Latest Units: % 80.6 Lymph Percent Latest Units: % 13.5 Oliver Percent Latest Units: % 5.3 Eos Percent Latest Units: % 0.3 Baso Percent Latest Units: % 0.3 Neut# Latest Ref Range: 1.8 - 7.7 x10(3)/mcL 12.2 (H) Lymph# Latest Ref Range: 0.6 - 4.8 x10(3)/mcL 2.0 Oliver# Latest Ref Range: 0.0 - 1.3 x10(3)/mcL 0.8 Eos# Latest Ref Range: 0.0 - 0.5 x10(3)/mcL 0.0 Baso# Latest Ref Range: 0.0 - 0.2 x10(3)/mcL 0.0 Ulcer Progress and Procedure Please refer to the LDA for details of ulcer progress and procedure. Assessment and Plan Ra was seen today for wound check. Diagnoses and all orders for this visit: Skin ulcer of left great toe with necrosis of muscle (HCC) - CA DEBRIDEMENT, SKIN, SUB-Q TISSUE,MUSCLE,=<20 SQ CM Skin ulcer of toe of left foot with fat layer exposed (HCC) - [facility] NURSING COMMUNICATION - lidocaine (XYLOCAINE) 5 % ointment; Apply topically once. - XR TOE LEFT 2 + VW; Future - [facility] PRIMARY DRESSING - traMADol (ULTRAM) 50 mg Oral Tablet; Take 1 Tab by mouth every 6 hours as needed for Pain for up to 10 days. Crohn's disease of colon with complication (HCC) Laceration of left great toe without foreign body present or damage to nail, initial encounter - CA DEBRIDEMENT, SKIN, SUB-Q TISSUE,MUSCLE,=<20 SQ CM Crohn's disease - S/P multiple abdominal surgeries in the past. Now with an ileostomy. Not on any medications at this time. Laceration left great toe 2 weeks ago - Never sought medical attention. No signs of infection. Nonhealing ST flap left great toe - Adherent proximally but not distally. Too far out to suture at this point. I did place a Steri-Strip over distal flap and effort to try to pull edges together slightly. Possible she may need to have this soft tissue flap excised in order to heal this, but we'll try to avoid if possible. Need to keep this very clean and covered with offloading. No signs of infection at present but could get infected at any time. Plan/ Steri stripped distal aspect of flap today Collagen applied to proximal open wound with DSD Leave dressing in place until next week Check x-ray of toe today Surgical shoe F/U with Podiatry next week Call with any s/s of infection documented in this encounter Miscellaneous Notes * Addendum Note - Oc Henson MD - 11/10/2017 10:49 AM ESTEncounter addended by: Oc Henson MD on: 11/13/2017 9:21 AM
Actions taken: Sign clinical note * Patient Instructions - Fallon Marr RN - 11/10/2017 8:45 AM EST Follow up in wound care next Hugh Go to registration then xray today Surgical shoe left Steri strips applied per Dr. Henson, collagen, 2x2 and roll gauze. Leave in place until you follow up with Dr. Reese next afternoon. Keep clean and dry. Follow Up Instructions [...] please contact the Wound Care Center at: [place] [phone] [place] [phone] Or call your Primary Care Physician or go to the nearest urgent care center. Stop smoking. Take a multivitamin daily as prescribed and follow a nutritious diet. documented in this encounter Plan of Treatment Upcoming Encounters Date Type Department Care Team (Late st Contact Info) Description 09/11/2024 1:45 PM EST Office Visit [facility] [address] [place] [address] Swapnil Lopez MD [address] [place] [address] 10/21/2024 2:00 PM EST Appointment [facility] [address] [address] Jacky Shirley MD [address] [facility] [address] [facility] [place], [place] [id number] 10/23/2024 1:45 PM EST Appointment [facility] [place], [place] [id number] Olena Darby, INSPECTOR AUTOMATIC TYPEWRITER [address] [facility] [place], [place] [id number] Scheduled Orders Name Type Priority Associated Diagnoses Orde r Schedule CA DEBRIDEMENT, SKIN, SUB-Q TISSUE,MUSCLE,=<20 SQ CM CA Charge Routine Laceration of left great toe without foreign body present or damage to nail, initial encounter Skin ulcer of left great toe with necrosis of muscle (HCC) Ordered: 11/10/2017 documented as of this encounter Goals Goal Patient Goal Type Associated Problems Recent Progress Patient-Stated? Author Maintain a healthy diet, exercise regularly and maintain an ideal body weight General No Linad Walden, RMA documented as of this encounter Results * XR TOE LEFT 2 + VW (11/10/2017 11:15 AM EST) Anatomical Region Laterality Modality Foot Radiographic Leora ging 11/10/2017 11:1 5 AM EST Impressions 11/10/2017 12:17 PM EST Some questionable cortical disruption lateral aspect base distal phalanx great toe. This may indicate osteomyelitis. Narrative 11/10/2017 12:17 PM EST XR TOE LEFT 2 + VW, ??11/10/2017 11:15 AM CLINICAL HISTORY: ??L97.753-[id number] chronic ulcer of other part of left foot with fat layer [id number] COMPARISON: ??10/09/2007 PROCEDURE COMMENTS: Routine imaging per [...] + VW, 11/10/2017 11:15 AM CLINICAL HISTORY: L97.228-Wry-gljbmzly chronic ulcer of other part ofleft foot with fat layer [id number] COMPARISON: 10/09/2007 PROCEDURE COMMENTS: Routine imaging per [...] encounter Visit Diagnoses Diagnosis Skin ulcer of left great toe with necrosis of muscle (HCC)- Primary Skin ulcer of toe of left foot with fat layer exposed (HCC) Crohn's disease of colon with complication (HCC) Laceration of left great toe without foreign body present or damage to nail, initial encounter Skin ulcer of toe of left foot with fat layer exposed (HCC) documented in this encounter Administered Medications Inactive Administered Medications - up to 1 most recent administrations Medication Order MAR Action Action Date Dose Rate Site lidocaine (XYLOCAINE) 5 % ointment Topical, ONCE, 1 dose, On Mon11/10/17 at 0945, Dx: 1. Skin ulcer of toe of left foot with fat layer exposed (HCC)Indications:Skin ulcer of toe of left foot with fat layer exposed (HCC) Given 11/10/2017 9:52 AM EST documented in this encounter Discontinued Medications Medication Sig Discontinue Reason Start Date End Da te escitalopram oxalate (LEXAPRO) 20 mg Oral Tablet Take 1 Tab by mouth daily. DELETE-Therapy completed 09/05/2017 11/10/2017 documented as of this encounter Orders Medications Ordered That Paul ht Not Have Been Administered Count Last Ordered Date First Ordered Date lidocaine (XYLOCAINE) 5 % ointment 1 2017 Nursing Count Last Ordered Date First Orde red Date AMB NURSING COMMUNICATION 1 11/10/2017 [facility]B [facility] PRIMARY DRESSING 1 11/10/2017 documented in this encounter Care Teams Pre Sales Technical Consultant Relationship Specialty Start Date End Date Suri Garduno MD PCP - General Family Medicine 07/25/17 08/01/18 documented as of this encounter
--- OUTSIDE RECORDS SUMMARY | 2024-08-15 13:58 | XMS_ITS | Encounter Summary ---
Author Organization [place] [address] Care Team Providers Care Private Tutor Name Role Phone Suri Garduno MD Primary Care Provider [phone] Reason for Referral * Consultation (Routine) - Closed Specialty Diagnoses / Procedures Referred By Contac t Referred To Contact Wound Care Diagnoses Open wound of left foot, initial encounter Shreya Dumont MD [address] [email or web address] [address] Phone: tel: fax: [facility] [place] [address] [facility] [place] [address] Phone: tel: fax: Referral ID Status Reason Start Date Expiration Date Visits Re quested Visits Authorized [id number] Closed 10/30/2017 10/30/2018 99 99 Reason for Visit * Reason Comments Laceration Encounter Details Date Type Department Care Team (Late st Contact Info) Description 10/30/2017 4:20 PM EST Office Visit [facility] [address] [employer] [place] [place] [address] Shreya Dumont MD [email or web address] [place] [address] Foot pain, left (Primary Dx); Open wound of left foot, initial encounter Social History Tobacco Use Types Packs/Day [...] Sign Reading Time Taken Comments Blood Pressure 114/74 10/30/2017 3:53 PM EST Pulse 90 10/30/2017 3:53 PM EST Temperature 36.8 ??C (98.3 ??F) 10/30/2017 3:53 PM ES T Respiratory Rate - - Oxygen Saturation 96% 10/30/2017 3:53 PM EST Inhaled Oxygen Concentration - - Weight 64.4 kg (142 lb) 10/30/2017 3:53 PM EST Height 157.5 cm (5' 2 ) 10/30/2017 3:53 PM EST Body Mass Index 25.97 10/30/2017 3:53 PM EST documented in this encounter Functional [...] No 09/05/2017 11:13 AM EST Mercedes Gabby SHANNON documented in this encounter Ordered Prescriptions Prescription Sig Dispense Quantity Refills Last Filled Start Date End Date meloxicam (MOBIC) 15 mg Oral TabletIndications:F oot pain, left Take 1 Tab by mouth daily for 10 days. 10 Tab 10/30/2017 11/09/2017 documented in this encounter Progress Notes * Shreya Dumont MD - 10/30/2017 4:20 PM EST Vitals: 10/30/17 1553 BP: 114/74 BP Location: Right arm Patient Position: Sitting Pulse: 90 Temp: 98.3 ??F (36.8 ??C) TempSrc: Oral SpO2: 96% Weight: 142 lb (64.4 kg) Height: 5' 2 (1.575 m) Chief Complaint Patient presents with ??? Laceration HPI: patient complains that she cut her foot on Monday, she states that she knows that it needs stitches but didn't want to pay for the ED visit. Family called the office on Monday when she cut her toe, and they were told to take her to the ER for treatment. She refused. She has been soaking her foot in soapy water and pouring peroxide on her foot as well. States she came today for pain medication. States she cannot afford to see anyone else. Review of Systems Constitutional: Negative for chills and fever. Respiratory: Negative for chest tightness and shortness of breath. Cardiovascular: Negative for chest pain. Gastrointestinal: Negative for abdominal pain, diarrhea, nausea and vomiting. Skin: Positive for wound. Neurological: Negative for dizziness, light-headedness and headaches. Physical Exam Constitutional: She appears well-developed and well-nourished. HENT: Head: Normocephalic and atraumatic. Eyes: Conjunctivae are normal. Pupils are equal, round, and reactive to light. Neck: Normal range of motion. Musculoskeletal: Normal range of motion. Neurological: She is alert. Skin: Skin is warm and dry. No rash noted. No erythema. Large, thick piece of tissue from the bottom of left big toe is pulled up and away from the toe. Noerythema surrounding the wound. No oozing. No swelling. Psychiatric: She has a normal mood and affect. Her behavior is normal. See time date stamps in the EMR for other pertient history components reviewed as part of today's encounter. [facility] Documentation [facility] Flowsheet was completed/reviewed as part of today's visit. Educated patient regarding the diagnosis, medication/treatment, goals, self- management tools and instructions based on their care plan. They verbalized understanding of the education given on the After Visit Summary [AVS] for today's visit. A copy of the AVS was provided either in writing and/or via AccountNow. A new medicine was prescribed during this [...] Diagnoses and all orders for this visit: Foot pain, left - meloxicam (MOBIC) 15 mg Oral Tablet; Take 1 Tab by mouth daily for 10 days. Dispense: 10 Tab; Refill: 0 Open wound of left foot, initial encounter - AMB REFERRAL TO WOUND CLINIC Appointment with wound clinic on Monday. documented in this encounter Plan of Treatment Upcoming Encounters Date Type Department Care Team (Late st Contact Info) Description 09/11/2024 1:45 PM EST Office Visit [facility] [address] [place] [address] Swapnil Lopez MD [address] [place] [address] 10/21/2024 2:00 PM EST Appointment [facility] [address] [place] [address] Jacky Shirley MD [address] [place] [address] [facility] [place] [id number] 10/23/2024 1:45 PM EST Appointment [facility] [place] [address] Olena Darby APRN [address] [facility] [place] [address] Scheduled Referrals Name Type Priority Associated Diagnoses Orde r Schedule AMB REFERRAL TO WOUND CLINIC Outpatient Referral Routine Open wound of left foot, initial encounter Ordered: 10/30/2017 documented as of this encounter Goals Goal Patient Goal Type Associated Problems Recent Progress Patient-Stated? Author Maintain a healthy diet, exercise regularly and maintain an ideal body weight General No Linda Walden, A documented as of this encounter Visit Diagnoses Diagnosis Foot pain, left- Primary Pain in limb Open wound of left foot, initial encounter documented in this encounter Care Teams Private Tutor Relationship Specialty Start Date End Date Suri Garduno MD PCP - General Family Medicine 07/25/17 08/01/18 documented as of this encounter
--- OUTSIDE RECORDS SUMMARY | 2024-08-15 13:59 | XMS_ITS | Data Portability ---
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 History of severe Crohn's disease on treatment for many years, history of previous left side of the migraine. Her symptoms of dizziness confusion unsteady gait had increased in the last several weeks. PET-CT scan showed no metastasis in the skull. Patient on Arimidex will be started other hormonal therapy including anastrozole and Ribociclib. However her MRI of the brain and PET-CT scan has been done over a month ago. Since there is no definite distant metastasis we will order repeat MRI of the brain with and without contrast as well as a bone scan. If she has distant metastasis she will be considered for palliative radiation to sites of metastatic disease possibly left frontal bone. If there is no distant metastasis, and in spite of a bulky primary site and left axillary metastasis she may be candidate for bell adjuvant chemotherapy and depending on response this could be followed by surgery and radiotherapy together with hormonal management. At this time we are unable to that the patient that she had distant metastasis for sure? She will return to see us for further evaluation after MRI of the brain and bone scan. Interview and review of her records lasted for 60 minutes. Thanks for allowing us participate in the care of this pleasant patient. [email or web address] Not available 12/26/2023 15:33:34 Plan of Treatment Reminders Order Date Submit Date Provider Last Modified By Organization Details Last Modified Time Details Appointments None recorded. Lab None recorded. Referral nutritionis t/dietitian referral - Scored 8 on Nutrition Assessment [address], [address] [place] [address] Liv Cobos, [place], [address], 05:01:41 Procedures None recorded. Surgeries None recorded. Imaging NM, bone scan, whole body - Please schedule ANNA to expedite treatment start date 2023 [address] (Centralized Scheduling), [address], [place], [address], 4 05:01:31 MRI, brain, w/wo contrast - Schedule ANNA to begin treatments 2023 CINTH[address] Blanton (Centralized Scheduling), [address], [place], [address], 4 05:01:39 Medication Orders None recorded. Patient TargetsNo targets recorded. Patient InstructionsNo instructions recorded. Reason for Referral Disk Operator/dietitian Refer ral for Primary malignant neoplasm of upper outer quadrant of female breast Scored 8 on Nutrition Assessment Referring Physician: Carito Catherine, Radiation Oncology, Encounter Date: 12/26/2023 Results Created Date Observation Date Name Description Value Unit Range Abnormal Flag Note LastModifiedBy Organization Detail LastModifiedTime 12/26/19 24 11/23/2023 imagi ng/di agnos tic resul t No observ ation record ed. wshehata [facility] [address], [place], [address], 12/26/2023 14:21:37 12/26/19 24 11/23/2023 imagi ng/di agnos tic resul t No observ ation record ed. [email or web address] Not Available 2023 14:21:37 Result Notes None recorded. Problems Name Problem SNOMED Code Status Onset Date Resolution Date Notes Provider Name and Address Organization Details Recorded Time Primary malignant neoplasm of upper outer quadrant of female breast 52614850 Active 024 Faby mckeon, ABBE - [facility] - [place] & [place] 4 11:22:38 Estrogen receptor positive tumor 327372977 Active 024 Faby mckeon, ABBE - [facility] - [place] [facility] [place] 4 11:22:53 Crohn's disease 16750940 Active 024 Faby mckeon, ABBE - [facility] - [place] [facility] [place] 4 14:40:44 Unsteady when walking 23510743 Active 024 Faby mckeon, ABBE - [facility] - [place] [facility] [place] 4 15:00:13 Recurrent falls 651629781 Active 024 Faby mckeon, ABBE - [facility] - [place] [facility] [place] 4 15:00:43 Problem Notes None recorded. Procedures Surgical History Date Name Laterality Status Provider Name and Address Organization Details Recorded Time 10/02/19 02 Total hysterectomy completed Faby Berg [facility] - [place] [facility] [place] 12/26/2023 14:42:16 10/02/18 90 partial hysterectomy completed Faby Berg [facility] - [place] [facility] [place] 12/26/2023 14:41:45 Imaging Results Imaging Date Name Status LastModified by Organiz ation Details LastModified Time 11/23/2023 imaging/diagn ostic result active [email or web address] [facility] [address], [place], [address], 12/26/2023 14:21:37 11/23/2023 imaging/diagn ostic result active [email or web address] Information not available 12/26/2023 14:21:37 Procedure Notes None recorded. Medical Equipment None Reported. Allergies Allergen ID Allergen Name Allergen Category Reaction Reaction Severity Criticality Documentation Date Start Date Code Code System Note Provider Name and Address Organization Details Recorded Time 599405 Substance with sulfonami de structure and antibacte rial mechanism of action (substanc e) medicatio n Not available Not available Not available 12/26/2023 53538 8003 SNOMED ABBE Naranjo [facility] [place] 14:35:25 Medications Name Sig Start Date Stop Date Status Note LastModified by Organization Details LastModified Time prednisone 10 mg tablet TAKE 1 TABLET BY MOUTH ONCE DAILY active Not Available Not Available No t Available loperamide 2 mg capsule TAKE 1 CAPSULE BY MOUTH EVERY 3 HOURS active Not Available Not Available No t Available ondansetron HCl 4 mg tablet TAKE 1 TABLET BY MOUTH EVERY 6 HOURS NEEDED FOR NAUSEA active Not Available Not Available No t Available diphenoxylate- atropine 2.5 mg-0.025 mg tablet TAKE 2 TABLETS BY MOUTH FOUR TIMES DAILY NEEDED. MAX OF 8 TABLETS PER DAY active Not Available Not Available No t Available tramadol 50 mg tablet TAKE 1 TABLET BY MOUTH FIVE TIMES DAILY active Not Available Not Available No t Available prednisolone acetate 1 % eye drops,suspensi on active Not Available Not Available Not Available BinaxNOW COVID-19 Ag Self Test kit TEST DIRECTED TODAY active Not Available Not Available No t Available Vitals Date Recorded Body height Body mass index (BMI) Body weight Body temperature Oxygen saturation Oxygen saturation in Arterial blood by Pulse oximetry Heart rate Respiratory rate Systolic blood pressure Diastolic blood pressure Provider Name and Address Organization Details Last Updated DateTime 157.48 cm 25.2 kg/m2 70159.3 1 g 98 [degF] 98 % 98 % 75 /min 19 /min 135 mm[Hg] 82 mm[Hg] Faby Charli CHOI [facility] [place] 14:34:01 Social History Question Answer Notes LastModified by Organizat ion Details LastModified Time Tobacco Smoking Status Never Smoker FabyABBE Gallegos [facility] [place] 12/26/2023 14:39:13 What Is Your Level Of Alcohol Consumption? Occasional Information not available 12/26/2023 What Was The Date Of Your Most Recent Tobacco Screening? 12/26/2023 Information not available 12/26/2023 How Many Children Do You Have? 2 Information not available 12/26/2023 What Is Your Relationship Status? Information not available 12/26/2023 Do You Feel Stressed (tense, Restless, Nervous, Or Anxious, Or Unable To Sleep At Night)? [id number] Information not available 12/26/2023 Do You Use Any Illicit Or Recreational Drugs? No Information not available 12/26/2023 Has Tobacco Cessation Counseling Been Provided? No Information not available 12/26/2023 Do You Or Have You Ever Used Any Other Forms Of Tobacco Or Nicotine? No Information not available 12/26/2023 What Is Your Status? Not Information no t available 12/26/2023 Sex: Unknown Functional Status Question Answer Note LastModified by Organization D etails LastModified Time Do you have difficulty walking or climbing stairs? Yes Information not available 12/26/2023 Do you have difficulty doing errands alone? Yes Information not available 12/26/2023 Mental Status Question Answer Note LastModified by Organization D etails LastModified Time Do you have difficulty concentrating, remembering or making decisions? Yes Information no t available 12/26/2023 Family History Relationship Description Onset Age of this Age Resolved Age Notes LastModified by Organization Details LastModified Time Mother Heart disease [email or web address] Not available 12/01 14:38:10 Father Heart disease [email or web address] Not available 12/01 14:38:30 Medical History Condition Response None Gynecological HistoryNo gynecological history recorded. Obstetrics History GPAL:G 0 P 0 0 0 0 Past Encounters Encounter ID Performer Location Encounter Start Date Encounter Closed Date Diagnosis/Indication Diagnosis SNOMED-CT Code Diagnosis ICD10 Code [id number] [facility] [address] [place] [address] 12/26/2023 13:25:33 12/26/2023 15:00:35 Primary malignant neoplasm of upper outer quadrant of female breast 24339658 C50.419 Estrogen r eceptor positive tumor 452131753 Z17.0 Recurrent falls 80805257 2 R29.6 Health Concerns Section Related Observation LastModified by Organization Detai ls LastModified Time None Recorded Concern Status LastModified by Organization Details LastModified Time None Recorded Advance Directives Directive None Recorded Payers Encounter Date Sequence Insurance Name Policy Number Policy Gerardo Covered Member ID Gerardo Member ID Guarantor Name 12/26/2023 1 [place] [id number] Marleni L Yossi [id number] Marleni L Yossi Notes Date Note Type Note Provider Name and Address Organization Details Recorded Time 12/26/2023 text/html Thanks for referring this nice lady.A pleasant 63-year-old white has 2 sons came accompanied with her youngest son and a relative Fatimah Padilla which used to work in Radiation Oncology.She is here for discussion about any role for palliative radiation to left frontal skull bone for possible metastatic disease of the left breast of zone no definite evidence of stage IV disease. Patient had a long history of severe Crohn's disease since 1980 had a history of rectal or anal fistula and at 1 time had several abdominal surgery had a colostomy for sometimes currently has no evidence of fistulous tract in the perineum. So is generally weak had fallen several times around 2021 where she would part of the left breast also she remember hitting her left side of her forehead she was recently incarcerated and was off about 2 weeks ago currently she is living with her parents who need her help she never had any screening mammograms in the regular basis. She was found a palpable mass in the upper outer quadrant of the left breast size of 3-4 cm in diameter on 10/30/2023 she had biopsy of the left breast mass and palpable left axillary lymph node area biopsy of the left breast mass at 2:00 a.m. position showed invasive ductal carcinoma grade with focal intermediate grade ductal carcinoma in site cribriform subtype without necrosis ER positive 96% p.r. positive 73% HER2 2+ left axillary lymph node biopsy showed metastatic ductal carcinoma tumor measures 7 mm with linear length ER 96% p.r. 22% HER2 1+ , Oncotype 23, breast MRI showed a enhancing mass left breast 3.4 x 2.3 x 2.8 cm patient was seen by Dr. Anna in consult and there was no plans for immediate surgery she was started on Arimidex. Pending further workup.Patient also was complaining of dizziness unsteady and had a history of migraine headaches for a long time especially on the left side MRI of the brain on 11/23/2023 showed no acute intracranial abnormality no evidence of brain metastasis was 2.2 cm enhancing left frontal lobe calvarial lesion suspicious for metastasis during the same day she had a PET-CT scan which showed no evidence of metastasis in the skull with hypermetabolic activity in the left breast SUV 3.63 with multiple axillary adenopathy involving level 1-2.3 highest maximum SUV 8.51 was also hypermetabolic activity in the previous site of rectal cutaneous fistula previously demonstrated on April 2015 with SUV 7.55 this could be related to previous chronic fistula although squamous cell carcinoma can not be ruled out. She was considered possibly stage IV disease and will be given a prescription of anastrozole and Ribociclib these are not started yet. In the meantime she had more dizziness unsteady gait 10 CTA to fall generalized body aches from her Crohn's disease. She has been taking prednisone 5 mg a day Zofran and tramadol with Lomotil she is still remain on Arimidex.In the last several weeks she had more of the dizziness partially confused and unsteady. She has an appointment this week to see a neurologist as well as a palliative care physician to check on her pain medications. She is 2 para 2 did not breast feed her children menarche age 10 menopause age 42 at that time she had hysterectomy bilateral salpingo-oophorectom y 2001 she stopped working because of Crohn's disease she used to work in [employer] family history unremarkable for cancer. Carito Catherine MD [address] [facility],[address], [place], [address], [place] [facility] [place] 12/26/2023 15:35:23 OBGyn Episode No OBEpisode recorded.
--- OUTSIDE RECORDS SUMMARY | 2024-08-15 13:59 | XMS_ITS | Encounter Summary ---
Author Organization [place] [address] Care Team Providers Care Production Engineer Track Name Role Phone Unavailable Primary Care Provider Unavailabl e Encounter Details Date Type Department Care Team (Late st Contact Info) Description 09/30/2007 8:42 AM EST - 09/30/2007 12:40 PM EST Hospital Encounter [facility] Generic, Historical Provider Social History Tobacco Use Types Packs/Day Years Used Date Smoking Tobacco: Never Assessed Comments Unknown Sex and Gender Information Value Date Recorded Sex Assigned at Not on file Legal Sex Female 8:28 AM EDT Gender Identity Not on file Sexual Orientation Not on file documented as of this encounter ED Notes * Unknown, Unknown - 01/29/2010 5:50 AM EDT documented in this encounter Plan of Treatment Upcoming Encounters Date Type Department Care Team (Late st Contact Info) Description 09/11/2024 1:45 PM EST Office Visit [facility] [address] [place] [address] Swapnil Lopez MD [address] [place] [address] 10/21/2024 2:00 PM EST Appointment [facility] [address] [place], [place] [id number] Jacky Shirley MD [address] [place] [address] [place] [address] 10/23/2024 1:45 PM EST Appointment [facility] [address] [place], [place] [id number] Olena Darby, SECURITIES COMPLIANCE EXAMINER [address] [facility] [place] [address] Scheduled Orders Name Type Priority Associated Diagnoses Orde r Schedule XR CHEST PA & LAT Imaging Routine Once fo r 1 Occurrences starting 01/15/2010 until 01/15/2010, 1 completed documented as of this encounter Procedures Procedure Name Priority Date/Time Associated Diagnosis Comments DIAG CHEST PA & LAT Routine 09/30/2007 1 2:00 AM EST documented in this encounter Results * XR CHEST PA & LAT (09/30/2007 12:00 AM EST) Anatomical Region Laterality Modality Other 09/30/2007 09/30/2007 Narrative 09/30/2007 12:00 AM EST VERIFIED [facility] Reason: ??VOMITING Dict.Staff: LIZETH CONNELLY [id number] Verified By: LIZETH CONNELLY ?Jenni: 09/30/07 ??12:38 pm Exams: ??DIAG-CHEST PA & LATERAL PA AND LATERAL CHEST 09-30-07 HISTORY: ??VOMITING FINDINGS: Heart size is within normal limits. ??The lungs are free of acute infiltrate, pleural effusion and pneumothorax. ??There is elevation of the right hemidiaphragm. IMPRESSION: ELEVATION OF THE RIGHT HEMIDIAPHRAGM WITHOUT ACUTE DISEASE. A MARICEL/pb DICTATED ON 09-20-07 AT 1022 HOURS end of result Procedure Note Unknown, U - 01/15/2010 VERIFIED [facility] Reason: VOMITING Dict.Staff: LIZETH CONNELLY [id number] Verified By: LIZETH CONNELLY Jenni: 09/30/07 12:38 pm Exams: DIAG-CHEST PA & LATERAL PA AND LATERAL CHEST 09-30-07 HISTORY: VOMITING FINDINGS: Heart size is within normal limits. The lungs are free of acute infiltrate, pleural effusion and pneumothorax. There is elevation of the right hemidiaphragm. IMPRESSION: ELEVATION OF THE RIGHT HEMIDIAPHRAGM WITHOUT ACUTE DISEASE. A MARICEL/pb DICTATED ON 09-20-07 AT 1022 HOURS end of result us U Unknown IMG SE LW RAD HISTORICAL Final Result documented in this encounter Visit Diagnoses Not on filedocumented in this encounter
--- OUTSIDE RECORDS SUMMARY | 2024-08-15 13:59 | XMS_ITS | Encounter Summary ---
Author Organization [place] [address] Care Team Providers Care Bilingual Account Manager Name Role Phone Unavailable Primary Care Provider Unavailabl e Encounter Details Date Type Department Care Team (Late st Contact Info) Description 04/01/2008 4:21 PM EDT - 04/01/2008 11:59 PM EDT Hospital Encounter [facility] Yves López MD [address] [place] [address] Social History Tobacco Use Types Packs/Day Years Used Date Smoking Tobacco: Never Assessed Comments Unknown Sex and Gender Information Value Date Recorded Sex Assigned at Not on file Legal Sex Female 8:28 AM EDT Gender Identity Not on file Sexual Orientation Not on file documented as of this encounter Plan of Treatment Upcoming Encounters Date Type Department Care Team (Late st Contact Info) Description 09/11/2024 1:45 PM EST Office Visit [facility] [address] [place] [address] Swapnil Lopez MD [address] [place] [address] 10/21/2024 2:00 PM EST Appointment [facility] [address] [place], [place] [phone] Jacky Shirley MD [address] [place] [address] [place] [address] 10/23/2024 1:45 PM EST Appointment [facility] [place] [address] Olena Darby APRN [address] [place] [address] [place] [address] documented as of this encounter Visit Diagnoses Not on filedocumented in this encounter
--- OUTSIDE RECORDS SUMMARY | 2024-08-15 13:59 | XMS_ITS | Encounter Summary ---
Author Organization [place] [address] Care Team Providers Care Ornamental Metal Worker Apprentice Name Role Phone Unavailable Primary Care Provider Unavailabl e Encounter Details Date Type Department Care Team (Late st Contact Info) Description 09/28/2007 6:07 AM EST - 09/28/2007 6:32 AM EST Hospital Encounter [facility] Generic, Historical Provider Social History Tobacco Use [...] PM EST Office Visit [facility] [address] [place] [address] Swapnil Lopez MD [address] [place] [address] 10/21/2024 2:00 PM EST Appointment [facility] [address] [place] [address] Jacky Shirley MD [address] [place] [address] [facility] [place] [id number] 10/23/2024 1:45 PM EST Appointment [facility] [place] [address] Olena Darby APRN [address] [place] [address] [place] [address] documented as of this encounter Visit Diagnoses Not on filedocumented in this encounter
--- OUTSIDE RECORDS SUMMARY | 2024-08-15 13:59 | XMS_ITS | Encounter Summary ---
Author Organization [place] [address] Care Team Providers Care Dispatcher Ship Pilot Name Role Phone Unavailable Primary Care Provider Unavailabl e Encounter Details Date Type Department Care Team (Late Contact Info) Description 10/09/2007 Hospital Encounter [facility] Generic, Historical Provider Social History Tobacco [...] PM EST Office Visit [facility] [address] [place] [address] Swapnil Lopez MD [address] [place] [address] 10/21/2024 2:00 PM EST Appointment [facility] [address] [place] [address] Jessica Shirley MD [address] [place] [address] [place] [address] 10/23/2024 1:45 PM EST Appointment [facility] [place] [address] Olena Darby, ACQUISITION ADVISOR [address] [facility] [place] [address] Scheduled Orders Name Type Priority Associated Diagnoses Orde r Schedule XR FOOT MIN 3 VIEWS LT Imaging Routine Once for 1 Occur rences starting 01/15/2010 until 01/15/2010, 1 completed documented as of this encounter Procedures Procedure Name Priority Date/Time Associated Diagnosis Comments DIAG FOOT MIN 3 VIEWS LT Routine 10/09/2007 12:00 AM EST documented in this encounter Results * XR FOOT MIN 3 VIEWS LT (10/09/2007 12:00 AM EST) Anatomical Region Laterality Modality Other 10/09/2007 10/09/2007 Narrative 10/09/2007 12:00 AM EST VERIFIED [facility] Reason: ??TRAUMA Dict.Staff: SOL HANCOCK [id number] Verified By: JESSICA CONNELLY ?Jenni: 10/09/07 ?? 1:01 pm Exams: ??DIAG-FOOT MIN 3-VIEWS LT THREE VIEW LEFT FOOT, 10-09-07 @1111 HOURS: HISTORY: Pain after trauma. No evidence of acute fracture or dislocation. Minimal soft tissue swelling distal dorsum foot. ??SANTI/ DICTATED 10-09-07 @11:57 AM end of result Procedure Note Unknown, U - 01/15/2010 VERIFIED [facility] Reason: TRAUMA Dict.Staff: SOL HANCOCK [id number] Verified By: JESSICA CONNELLY Jenni: 10/09/07 1:01 pm Exams: DIAG-FOOT MIN 3-VIEWS LT THREE VIEW LEFT FOOT, 10-09-07 @1111 HOURS: HISTORY: Pain after trauma. No evidence of acute fracture or dislocation. Minimal soft tissue swelling distal dorsum foot. SANTI/ DICTATED 10-09-07 @11:57 AM end of result us U Unknown IMG SE LW RAD HISTORICAL Final Result documented in this encounter Visit Diagnoses Not on filedocumented in this encounter
--- OUTSIDE RECORDS SUMMARY | 2024-08-15 13:59 | XMS_ITS | Encounter Summary ---
Author [place] [address] Care Team Providers Care Rug Inspector Name Role Phone Franklin Manzanares DO, Viral Primary Care Provider [phone] Reason for Referral * Consultation (Routine) - Closed Specialty Diagnoses / Procedures Referred By Contact Referred To Contact Internal Medicine-Gastroenterology / Gastroenterology Diagnoses Crohn disease, without complications Alejandro Ried DO [address] [place] [address] Phone: tel:[phone] fax:[phone] You [place] MD [address] [place] [address] Phone: tel:[phone] fax:[phone] Referral ID Status Reason Start Date Expiration Date Visits Re quested Visits Authorized [id number] Closed 06/25/2014 06/25/2015 1 1 Reason for Visit * Reason Comments Establish Care Weight Loss patient is losing we ight has a lot Alcohol Problem had stopped drinking 6 months ago and since then patient has concerns of hypoglycemia slurred shakes rebolledo, sleeping gait problem Anemia has history of anemi a dark circles under eyes Encounter Details Date Type Department Care Team (Latest Contact Info) Description 06/25/2014 1:40 PM EDT Office Visit [facility] Avila [address] [place] [address] Alejandro Reid V, DO [address] [place] [address] Sharavinder (Primary Dx); Alcohol abuse; Near syncope; Crohn disease, without complications (HCC); IRMA (generalized anxiety disorder) Social History Tobacco Use Types Packs/Day Years [...] Sign Reading Time Taken Comments Blood Pressure 130/80 06/25/2014 2:05 PM EDT Pulse 84 06/25/2014 2:05 PM EDT Temperature 36.1 ??C (97 ??F) 06/25/2014 2:05 PM EDT Respiratory Rate 18 06/25/2014 2:05 PM EDT Oxygen Saturation - - Inhaled Oxygen Concentration - - Weight 58.2 kg (128 lb 4 oz) 06/25/2014 2:05 PM EDT Height 154.9 cm (5' 1 ) 06/25/2014 2:05 PM EDT Body Mass Index 24.23 06/25/2014 2:05 PM EDT documented in this encounter Ordered Prescriptions Prescription Sig Dispense Quantity Refills Last Filled Start Date End Date sertraline (ZOLOFT) 50 mg Oral TabletIndications: IRMA (generalized anxiety disorder) Take 1 tablet by mouth daily. 30 tablet 2 06/25/2014 04/03/2015 documented in this encounter Progress Notes * Alejandro Reid V, DO - 06/25/2014 2:12 PM EDT Subjective: Patient ID: Marleni Sy is a 53 y.o. female. Chief Complaint Patient presents with ??? Establish Care ??? Weight Loss patient is losing weight has a lot ??? Alcohol Problem had stopped drinking 6 months ago and since then patient has concerns of hypoglycemia slurred shakes rebolledo, sleeping gait problem ??? Anemia has history of anemia dark circles under eyes HPI History of alcohol abuse.. But is alcohol free for 6 months.. But still having tremors and shakign spells. And near syncopal episodes. No new meds No new supplement No illennses. No trauma Patients past medical, family and social histories were reviewed and updated. There were no changesexcept as noted. Review of Systems Constitutional: Positive for appetite change and fatigue. Negative for fever. Eyes: Positive for visual disturbance. Respiratory: Negative for cough. Cardiovascular: Negative for chest pain. Gastrointestinal: Positive for diarrhea. Negative for vomiting and constipation. Endocrine: Negative. Neurological: Positive for tremors, weakness and headaches. Psychiatric/Behavioral: Positive for confusion and agitation. The patient is nervous/anxious. Results for orders placed in visit on 06/25/14 POCT GLUCOSE Result Value Range Glucose 91 60 - 200 mg/dL Lot Number Expiration Date SeriAl # Meter Objective: Filed Vitals: 06/25/14 1405 BP: 130/80 Pulse: 84 Temp: 97 ??F (36.1 ??C) TempSrc: Temporal Resp: 18 Height: 5' 1 (1.549 m) Weight: 128 lb 4 oz (58.174 kg) Body mass index is 24.25 kg/(m^2). Physical Exam Vitals reviewed. Constitutional: She is oriented to person, place, and time. She appears well- developed and well-nourished. HENT: Head: Normocephalic. Right Ear: External ear normal. Left Ear: External ear normal. Mouth/Throat: Oropharynx is clear and moist. Eyes: Conjunctivae and EOM are normal. Pupils are equal, round, and reactive to light. Neck: Normal range of motion. Neck supple. Cardiovascular: Normal rate, regular rhythm and normal heart sounds. Pulmonary/Chest: Effort normal and breath sounds normal. Abdominal: Soft. Musculoskeletal: Normal range of motion. Neurological: She is alert and oriented to person, place, and time. Skin: Skin is warm. Psychiatric: She has a normal mood and affect. Her behavior is normal. Judgment and thought contentnormal. Assessment and Plan: Marleni was seen today for establish care, weight loss, alcohol problem and anemia. Diagnoses and associated orders for this visit: Regis - POCT Glucose - Venipuncture - Comprehensive Metabolic Panel - Clinic Collect; Future - Hemoglobin A1c - Clinic Collect; Future - CBC with Auto Diff - Clinic Collect; Future - Thyroid Stimulating Hormone - Clinic Collect; Future - Gamma Glutamyl Transferase - Lab Collect; Future Alcohol abuse - Venipuncture - Comprehensive Metabolic Panel - Clinic Collect; Future - Hemoglobin A1c - Clinic Collect; Future - CBC with Auto Diff - Clinic Collect; Future - Thyroid Stimulating Hormone - Clinic Collect; Future - Gamma Glutamyl Transferase - Lab Collect; Future Near syncope - Venipuncture - Comprehensive Metabolic Panel - Clinic Collect; Future - Hemoglobin A1c - Clinic Collect; Future - CBC with Auto Diff - Clinic Collect; Future - Thyroid Stimulating Hormone - Clinic Collect; Future - Gamma Glutamyl Transferase - Lab Collect; Future Crohn disease, without complications - Venipuncture - Comprehensive Metabolic Panel - Clinic Collect; Future - Hemoglobin A1c - Clinic Collect; Future - CBC with Auto Diff - Clinic Collect; Future - Thyroid Stimulating Hormone - Clinic Collect; Future - Gastroenterology - Gamma Glutamyl Transferase - Lab Collect; Future IRMA (generalized anxiety disorder) - Venipuncture - Comprehensive Metabolic Panel - Clinic Collect; Future - Hemoglobin A1c - Clinic Collect; Future - CBC with Auto Diff - Clinic Collect; Future - Thyroid Stimulating Hormone - Clinic Collect; Future - sertraline (ZOLOFT) 50 mg Oral Tablet; Take 1 tablet by mouth daily. diet hypoglycemia given.. A new medication was prescribed during this office visit. I did discuss with the patient the reasonfor prescribing this new medication. I also did inform the patient of possible likely side effects,but also encouraged the patient to read the medication insert that will accompany their prescription and encouraged her to discuss any questions about the insert with their pharmacist. She was instruc dorian to call if having side effects or possible allergic reaction after taking. I also discussed with her the risk of stopping the medication or deviating from prescribing instructions. Dosing instructions are present on the AVS and she is aware. I inquired both patient and family of any questions and answered accordingly. No Follow-up on file. documented in this encounter Miscellaneous Notes * Patient Instructions - Renea Navas MA - 06/25/2014 2:13 PM EDT Hypoglycemia (Low Blood Sugar) Hypoglycemia is when the glucose (sugar) in your blood is too low. Hypoglycemia can happen for manyreasons. It can happen to people with or without diabetes. Hypoglycemia can develop quickly and canbe a medical emergency. CAUSES Having hypoglycemia does not mean that you will develop diabetes. Different causes include: ?? Missed or delayed meals or not enough carbohydrates eaten. ?? Medication overdose. This could be by accident or deliberate. If by accident, your medication may need to be adjusted or changed. ?? Exercise or increased activity without adjustments in carbohydrates or medications. ?? A nerve disorder that affects body functions like your heart rate, blood pressure and digestion (autonomic neuropathy). ?? A condition where the stomach muscles do not function properly (gastroparesis). Therefore, medications may not absorb properly. ?? The inability to recognize the signs of hypoglycemia (hypoglycemic unawareness). ?? Absorption of insulin - may be altered. ?? Alcohol consumption. ?? /menstrual cycles/. This may be due to hormones. ?? Certain kinds of tumors. This is very rare. SYMPTOMS ?? Sweating. ?? Hunger. ?? Dizziness. ?? Blurred vision. ?? Drowsiness. ?? Weakness. ?? Headache. ?? Rapid heart beat. ?? Shakiness. ?? Nervousness. DIAGNOSIS Diagnosis is made by monitoring blood glucose in one or all of the following ways: ?? Fingerstick blood glucose monitoring. ?? Laboratory results. TREATMENT If you think your blood glucose is low: ?? Check your blood glucose, if possible. If it is less than 70 mg/dl, take one of the following: ?? 3-4 glucose tablets. ? cup juice (prefer clear like apple). ? cup regular soda pop. ?? 1 cup milk. ?-1 tube of glucose gel. ?? 5-6 hard candies. ?? Do not over treat because your blood glucose (sugar) will only go too high. ?? Wait 15 minutes and recheck your blood glucose. If it is still less than 70 mg/dl (or below yourtarget range), repeat treatment. ?? Eat a snack if it is more than one hour until your next meal. Sometimes, your blood glucose may go so low that you are unable to treat yourself. You may need someone to help you. You may even pass out or be unable to swallow. This may require you to get an injection of glucagon, which raises the blood glucose. HOME CARE INSTRUCTIONS ?? Check blood glucose as recommended by your caregiver. ?? Take medication as prescribed by your caregiver. ?? Follow your meal plan. Do not skip meals. Eat on time. ?? If you are going to drink alcohol, drink it only with meals. ?? Check your blood glucose before driving. ?? Check your blood glucose before and after exercise. If you exercise longer or different than usual, be sure to check blood glucose more frequently. ?? Always carry treatment with you. Glucose tablets are the easiest to carry. ?? Always wear medical alert jewelry or carry some form of identification that states that you havediabetes. This will alert people that you have diabetes. If you have hypoglycemia, they will have abetter idea on what to do. SEEK MEDICAL CARE IF: ?? You are having problems keeping your blood sugar at target range. ?? You are having frequent episodes of hypoglycemia. ?? You feel you might be having side effects from your medicines. ?? You have symptoms of an illness that is not improving after 3-4 days. ?? You notice a change in vision or a new problem with your vision. SEEK IMMEDIATE MEDICAL CARE IF: ?? You are a family member or friend of a person whose blood glucose goes below 70 mg/dl and is accompanied by: ?? Confusion. ?? A change in mental status. ?? The inability to swallow. ?? Passing out. Document Released: 09/18/2006 Document Revised: 12/10/2012 Document Reviewed: 05/13/2010 ExitCare?? Patient Information ??2013 [employer] documented in this encounter Plan of Treatment Upcoming Encounters Date Type Department Care Team (Late st Contact Info) Description 09/11/2024 1:45 PM EST Office Visit [facility] [address] [place] [address] Swapnil Lopez MD [address] [place] [address] 10/21/2024 2:00 PM EST Appointment [facility] [address] [id number] Jacky Shirley MD [address] [facility] [place] [address] 10/23/2024 1:45 PM EST Appointment [facility] [place] [address] Olena Darby APRN [address] [facility] [place] [address] Scheduled Referrals Name Type Priority Associated Diagnoses Orde r Schedule AMB REFERRAL TO GASTROENTEROLOGY Outpatient Referral Routine Crohn Disease, Without Complications Ordered: 06/25/2014 documented as of this encounter Procedures Procedure Name Priority Date/Time Associated Diagnosis Comments POCT GLUCOSE Routine 06/25/2014 2:11 PM EDT Shakes documented in this encounter Results * (ABNORMAL) GAMMA GLUTAMYL TRANSFERASE (06/25/2014 3:00 PM EDT) GGT 71(H) 5 - 36 IU/L [facility] Blood specimen (specimen) UPPER LIMB STRUCTURE / Unknown 06/25/2014 3:00 PM EDT 06/25/2014 9:10 PM EDT us Viral Reid V, DO CHEMISTRY ORDERABLES Final Res ult Performing Organization Address City/[facility]/ZIP Co de Phone Number [facility] [address] [place] [address] * THYROID STIMULATING HORMONE (06/25/2014 3:00 PM EDT) TSH 0.541 0.270 - 4.200 mcIU/mL [facility] Blood specimen (specimen) UPPER LIMB STRUCTURE / Unknown 06/25/2014 3:00 PM EDT 06/25/2014 9:10 PM EDT us Viral Reid V, DO CHEMISTRY ORDERABLES Final Res ult Performing Organization Address City/[facility]/ZIP Co de Phone Number [facility] [address] [place] [address] * (ABNORMAL) CBC WITH AUTO DIFF (06/25/2014 3:00 PM EDT) Pathologist [facility] WBC 6.5 4.0 - 11.0 x10(3)/mcL [facility] RBC 5.16(H) 3.80 - 5.10 x10(6)/mcL [facility] Hgb 14.9 12.0 - 15.6 gm/dL [facility] Hct 45.8 35.7 - 45.9 % [facility] MCV 88.9 82.5 - 99.8 fL [facility] MCH 29.0 27.0 - 34.3 pg [facility] MCHC 32.6 32.1 - 35.3 gm/dL [facility] RDW 15.3(H) 11.5 - 15.0 % [facility] Platelet 134(L) 144 - 423 x10(3)/mcL [facility] MPV 8.1 6.8 - 10.8 fL [facility] Blood specimen (specimen) UPPER LIMB STRUCTURE / Unknown 06/25/2014 3:00 PM EDT 06/25/2014 9:10 PM EDT us Viral Ried V, DO HEMATOLOGY ORDERABLES Final Re sult Performing Organization Address [facility] Co de Phone Number [facility] [address] [place] [address] * HEMOGLOBIN A1C (06/25/2014 3:00 PM EDT) Pathologist [facility] Hgb A1c 5.4 <=7.0 % [facility] Comment: Initial Diagnostic Criteria < 5.7 [...] ORDERABLES Final Res ult Performing Organization Address [facility]/ZIP Co de Phone Number [facility] [address] [place] [address] * (ABNORMAL) COMPREHENSIVE METABOLIC PANEL (06/25/2014 3:00 PM EDT) Sodium 137 136 - 145 mmol/L [facility] Potassium 3.4(L) 3.5 - 5.0 mmol/L [facility] Chloride 98 98 - 107 mmol/L [facility] Total CO2 28 22 - 29 mmol/L [facility] Anion Gap 11 7 - 16 mmol/L [facility] Calcium 10.3(H) 8.6 - 10.2 mg/dL [facility] Glucose Lvl 99 74 - 100 mg/dL [facility] BUN 6 6 - 20 mg/dL [facility] Creatinine 0.79 0.51 - 1.00 mg/dL [facility] Albumin 4.5 3.5 - 5.2 gm/dL [facility] Total Protein 8.6(H) 6.4 - 8.3 gm/dL [facility] Bili Total 0.5 0.1 - 1.3 mg/dL [facility] AST 43(H) <=40 IU/L [facility] ALT 27 <=41 IU/L [facility] Alk Phos 98 35 - 104 IU/L [facility] GFR Afr Am >60 [facility] Comment: GFR is estimated using creatinine, [...] or less GFR Non Afr Am >60 [facility] Blood specimen (specimen) UPPER LIMB STRUCTURE / Unknown 06/25/2014 3:00 PM EDT 06/25/2014 9:10 PM EDT us Viral Reid V, DO CHEMISTRY ORDERABLES Edited Re sult - Final Performing Organization Address [facility] de Phone Number [facility] [address] [place] [address] * POCT GLUCOSE (06/25/2014 2:11 PM EDT) Glucose 91 60 - 200 mg/dL SEP OFFICE Lot Number SEP OFFICE Expiration Date SEP OFFICE SeriAl # SEP OFFICE Meter SEP OFFICE 06/25/2014 2:11 PM EDT us Viral Reid V, DO POINT OF CARE TEST ORDERABLES Final Result Performing Organization Address [facility] de Phone Number SEP OFFICE documented in this encounter Visit Diagnoses Diagnosis Shakes- Primary Abnormal involuntary movements Alcohol abuse Alcohol abuse, unspecified Near syncope Syncope and collapse Crohn disease, without complications IRMA (generalized anxiety disorder) Generalized anxiety disorder documented in this encounter Discontinued Medications Medication Sig Discontinue Reason Start Date End Da te venlafaxine (EFFEXOR) 75 mg tabletIndications:Depre ssion Take 1 Tab by mouth 2 times daily. DELETE-Therapy completed 04/13/2011 06/25/2014 documented as of this encounter Orders Charge Count Last Ordered Date First Orde red Date [place] COLLECTION VENOUS BLOOD,VENIPUNCTURE 1 0 06/25/2014 documented in this encounter Care Teams Rug Inspector Relationship Specialty Start Date End Date Reid, Viral V, DO [address] [place] [address] PCP - General Family Medicine 06/25/14 07/29/15 documented as of this encounter
--- OUTSIDE RECORDS SUMMARY | 2024-08-15 13:59 | XMS_ITS | Encounter Summary ---
Author Organization [place] [address] Care Team Providers Care Flattening Press Operator Name Role Phone Unavailable Primary Care Provider Unavailabl e Encounter Details Date Type Department Care Team (Late st Contact Info) Description 09/28/2007 7:01 AM EST - 09/28/2007 9:25 AM EST Hospital Encounter HST ER BE[facility] [...] PM EST Office Visit [facility] [address] [facility] [address] Swapnil Lopez MD [address] [place] [address] 10/21/2024 2:00 PM EST Appointment [facility] MRI [address] [place], [place] [id number] Jacky Shirley MD [address] [place] [address] [place] [address] 10/23/2024 1:45 PM EST Appointment [place] [address] Olena Darby APRN [address] [place] [address] [place] [address] documented as of this encounter Visit Diagnoses Not on filedocumented in this encounter
--- OUTSIDE RECORDS SUMMARY | 2024-08-15 13:59 | XMS_ITS | Encounter Summary ---
Author Organization [place] [address] Care Team Providers Care International Marketing Specialist Name Role Phone Unavailable Primary Care Provider Unavailabl e Encounter Details Date Type Department Care Team (Late st Contact Info) Description 09/29/2007 5:04 PM EST - 10/11/2007 4:15 PM EST Hospital Encounter HST [facility] FAL Generic, Historical Provider Social History Tobacco Use Types Packs/Day Years Used Date Smoking Tobacco: Never Assessed Comments Unknown Sex and Gender Information Value Date Recorded Sex Assigned at Not on file Legal Sex Female 8:28 AM EDT Gender Identity Not on file Sexual Orientation Not on file documented as of this encounter H&P Notes * Unknown, Unknown - 01/29/2010 5:57 AM EDT documented in this encounter Plan of Treatment Upcoming Encounters Date Type Department Care Team (Late st Contact Info) Description 09/11/2024 1:45 PM EST Office Visit [facility] [address] [place] [address] Swapnil Lopez MD [address] [place] [address] 10/21/2024 2:00 PM EST Appointment [facility] MRI [address] [place] [address] Jacky Casas MD [address] [place] [address] [place] [address] 10/23/2024 1:45 PM EST Appointment [place] [address] Olena Darby APRN [address] [place] [address] [place] [address] documented as of this encounter Visit Diagnoses Not on filedocumented in this encounter
--- OUTSIDE RECORDS SUMMARY | 2024-08-15 13:59 | XMS_ITS | Encounter Summary ---
Author Organization [place] [address] Care Team Providers Care Freelance Recruiter Name Role Phone Unavailable Primary Care Provider Unavailabl e Encounter Details Date Type Department Care Team (Late st Contact Info) Description 03/25/2008 9:24 PM EDT - 03/26/2008 2:47 AM EDT Hospital Encounter [facility]ST ER [facility] Generic, Historical Provider Social History Tobacco Use Types Packs/Day Years Used Date Smoking Tobacco: Never Assessed Comments Unknown Sex and Gender Information Value Date Recorded Sex Assigned at Not on file Legal Sex Female 8:28 AM EDT Gender Identity Not on file Sexual Orientation Not on file documented as of this encounter ED Notes * Unknown, Unknown - 01/23/2010 2:22 AM EDT documented in this encounter Plan of Treatment Upcoming Encounters Date Type Department Care Team (Late st Contact Info) Description 09/11/2024 1:45 PM EST Office Visit [facility] [address] [place] [address] Swapnil Lopez MD [address] [place] [address] 10/21/2024 2:00 PM EST Appointment [facility] MRI [address] [place], [place] [id number] Jacky Shirley MD [address] [place] [address] [place] [address] 10/23/2024 1:45 PM EST Appointment [facility] [address] Olena Darby APRN [address] [place] [address] [place] [address] documented as of this encounter Visit Diagnoses Not on filedocumented in this encounter
--- OUTSIDE RECORDS SUMMARY | 2024-08-15 13:59 | XMS_ITS | Encounter Summary ---
Author Organization [place] [address] Care Team Providers Care Baggage Porter Head Name Role Phone Unavailable Primary Care Provider Unavailabl e Encounter Details Date Type Department Care Team (Late st Contact Info) Description 07/15/2008 2:08 PM EDT - 07/15/2008 4:45 PM EDT Hospital Encounter [facility] Generic, [...] encounter ED Notes * Unknown, Unknown - 01/19/2010 8:24 PM EDT documented in this encounter Plan of Treatment Upcoming Encounters Date Type Department Care Team (Late st Contact Info) Description 09/11/2024 1:45 PM EST Office Visit [facility] [address] [place] [address] Swapnil Lopez MD [address] [place] [address] 10/21/2024 2:00 PM EST Appointment [facility] MRI [address] [place] [address] Jacky Shirley MD [address] [facility] [place] [address] 10/23/2024 1:45 PM EST Appointment [facility] [address] [place], [place] [id number] Olena Darby, OPENSTACK DEVELOPER [address] [facility] [place] [address] Scheduled Orders Name Type Priority Associated Diagnoses Orde r Schedule XR CHEST PA & LAT Imaging Routine Once fo r 1 Occurrences starting 01/15/2010 until 01/15/2010, 1 completed documented as of this encounter Procedures Procedure Name Priority Date/Time Associated Diagnosis Comments DIAG CHEST PA & LAT Routine 07/15/2008 1 2:00 AM EDT documented in this encounter Results * XR CHEST PA & LAT (07/15/2008 12:00 AM EDT) Anatomical Region Laterality Modality Other 07/15/2008 07/15/2008 Narrative 07/15/2008 12:00 AM EDT Name: CONNIE Saba : ??1960 VERIFIED [facility] Reason: ??cough Dict.Staff: KARLOS PALACIO [id number] Verified By: ANAND JC ?Jenni: 07/15/08 ?? 9:59 pm Exams: ??DIAG-CHEST PA & LATERAL TWO-VIEW CHEST: HISTORY: ??Cough, comparison with 09/2007. FINDINGS: ??The heart size and pulmonary vascularity are within normal limits, with a focal area of opacity adjacent to the left heart border. ??The right lung is clear. IMPRESSION: Suspected area of pneumonia in the left base as described above. Follow-up films to clearing are recommended. RIYA:veronique DICTATED 07/15/2008 @ 16:00 end of result Procedure Note Unknown, U - 01/15/2010 Name: CONNIE Saba : 1960 VERIFIED [facility] Reason: cough Dict.Staff: KARLOS PALACIO [id number] Verified By: ANAND JC Jenni: 07/15/08 9:59 pm Exams: DIAG-CHEST PA & LATERAL TWO-VIEW CHEST: HISTORY: Cough, comparison with 09/2007. FINDINGS: The heart size and pulmonary vascularity are within normal limits, with a focal area of opacity adjacent to the left heart border. The right lung is clear. IMPRESSION: Suspected area of pneumonia in the left base as described above. Follow-up films to clearing are recommended. RIYA:veronique DICTATED 07/15/2008 @ 16:00 end of result us U Unknown IM[facility] HISTORICAL Final Result documented in this encounter Visit Diagnoses Not on filedocumented in this encounter
--- OUTSIDE RECORDS SUMMARY | 2024-08-15 13:59 | XMS_ITS | Encounter Summary ---
Author Organization [place] [address] Care Team Providers Care Sales Clerk Name Role Phone Franklin V DO, Viral Primary Care Provider [phone] Reason for Visit * Reason Comments Depression refill medication re c at medication Encounter Details Date Type Department Care Team (Late st Contact Info) Description 04/13/2011 1:30 PM EDT Office Visit [facility] [address] [place] [address] Reid, Viral V, DO [address] [place] [address] Alcoholism (HCC); Crohn's; History of stomach cancer; Depression Social History Tobacco Use Types Packs/Day Years Used Date Smoking Tobacco: Never Alcohol Use Standard Drinks/Week Comments [...] Sign Reading Time Taken Comments Blood Pressure 100/68 04/13/2011 1:55 PM EDT Pulse 72 04/13/2011 1:55 PM EDT Temperature 37.2 ??C (98.9 ??F) 04/13/2011 1:55 PM ED T Respiratory Rate - - Oxygen Saturation - - Inhaled Oxygen Concentration - - Weight 58.5 kg (129 lb) 04/13/2011 1:55 PM EDT Height 158.8 cm (5' 2.5 ) 04/13/2011 1:55 PM EDT Body Mass Index 23.22 04/13/2011 1:55 PM EDT documented in this encounter Ordered Prescriptions Prescription Sig Dispense Quantity Refills Last Filled Start Date End Date venlafaxine (EFFEXOR) 75 mg tabletIndications:D epression Take 1 Tab by mouth 2 times daily. 60 Tab 3 04/13/2011 06/25/2014 venlafaxine (EFFEXOR-XR) 75 mg XR capsuleIndications: Depression Take 2 Caps by mouth daily for 30 days. 60 Cap 3 04/13/2011 04/13/2011 documented in this encounter Progress Notes * Trish Reid DO - 04/13/2011 4:23 PM EDTAddended by: TRISH REID V on: 04/13/2011 Modules accepted: Orders * Trish Reid DO - 04/13/2011 2:03 PM EDT Subjective: Patient ID: MARLENI ROSALES is a 50 y.o. female. HPI Pt here to become established Depression - Patient complains of symptoms consistent with depression. This is not new for this patient. Onset was approximately several years ago. Symptoms have been stable. He denies current suicidal and homicidal plan or intent. She is not having side effects from medications. Pt does not have sleep disturbance. Pt does have a change in appetite. Pt had hx of alcoholism but since being treatedwith depression medication has quit drinking, pt states medication has really relieved her depression. Patient used to a alcholoic and now is recovering.. And not drinking. No side effects on effexor And mood is improved Patient's medications, allergies, past medical, surgical, social and family histories were reviewedand updated as appropriate. Review of Systems Constitutional: Negative. HENT: Negative. Eyes: Negative. Respiratory: Negative. Negative for shortness of breath. Cardiovascular: Negative for chest pain. Gastrointestinal: Negative. Genitourinary: Negative. Musculoskeletal: Negative. Neurological: Negative for dizziness. Psychiatric/Behavioral: Negative for behavioral problem, confusion, self-injury, dysphoric mood, decreased concentration and agitation. The patient is not nervous/anxious. Objective: Filed Vitals: 04/13/2011 1:55 PM BP: 100/68 Pulse: 72 Temp: 98.9 ??F (37.2 ??C) TempSrc: Oral Height: 5' 2.5 (1.588 m) Weight: 129 lb (58.514 kg) Physical Exam Vitals reviewed. Constitutional: She is oriented. She appears well-developed and well-nourished. HENT: Head: Normocephalic. Right Ear: External ear normal. Left Ear: External ear normal. Mouth/Throat: Oropharynx is clear and moist. Eyes: Conjunctivae and extraocular motions are normal. Pupils are equal, round, and reactive to light. Neck: Normal range of motion. Neck supple. Cardiovascular: Normal rate, regular rhythm and normal heart sounds. Pulmonary/Chest: Effort normal and breath sounds normal. Abdominal: Soft. Bowel sounds are normal. Musculoskeletal: Normal range of motion. Neurological: She is alert and oriented. Skin: Skin is warm. Psychiatric: She has a normal mood and affect. Her behavior is normal. Judgment and thought contentnormal. Assessment and Plan: Marleni was seen today for depression. Diagnoses and associated orders for this visit: - Alcoholism - No associated orders Patietn is recovering - Crohn's - No associated orders observe.. - History of stomach cancer - No associated orders.. Now in remission. - Depression - Venlafaxine er 75 mg 24 hr cap -- Take 2 Caps by mouth daily for 30 days. Patient to return for fasting labs.. LIPIDS BMP CBC AND TSH AND LFTS documented in this encounter Plan of Treatment Upcoming Encounters Date Type Department Care Team (Late st Contact Info) Description 09/11/2024 1:45 PM EST Office Visit [facility] [address] [place] [address] Swapnil Lopez MD [address] [place] [address] 10/21/2024 2:00 PM EST [facility] [address] [address] Jacky Shirley MD [address] [facility] [place] [address] 10/23/2024 1:45 PM EST Appointment [facility] [address] [place], [place] [phone] Olena Darby, YON 1 [facility] [place] [address] documented as of this encounter Visit Diagnoses Diagnosis Alcoholism (HCC) Other and unspecified alcohol dependence, unspecified drinking behavior Crohn's Regional enteritis of unspecified site History of stomach cancer Personal history of malignant neoplasm of stomach Depression Depressive disorder, not elsewhere classified documented in this encounter Discontinued Medications Medication Sig Discontinue Reason Start Date End Da te chlordiazepoxide (LIBRIUM) 25 mg capsule Take 1 Cap by mouth 3 times daily as needed. for withdrawal 03/14/2011 04/13/2011 venlafaxine (EFFEXOR-XR) 75 mg XR capsuleIndications:Dep ression Take 2 Caps by mouth daily for 30 days. 04/13/2011 04/13/2011 venlafaxine (EFFEXOR) 37.5 mg Take 37.5 mg by mouth 2 times daily. 04/13/2011 documented as of this encounter Historical Medications * This list may reflect changes made after this encounter. venlafaxine (EFFEXOR) 37.5 mg Take 37.5 mg by mouth 2 times daily. 04/13/2011 added in this encounter Care Teams Sales Clerk Relationship Specialty Start Date End Date Trish Reid DO [address] [place] [id number] PCP - General 04/13/11 05/20/14 documented as of this encounter
--- OUTSIDE RECORDS SUMMARY | 2024-08-15 13:59 | XMS_ITS | Encounter Summary ---
Author Organization [place] [address] Care Team Providers Care Applications Scientist Name Role Phone Unavailable Primary Care Provider Unavailabl e Reason for Visit * Reason Comments Alcohol Problem Pt brought in by ramo harris. +ETOH States I'm upset, I'm sad, I'm depressed . Denies suicidal thoughts. States my parents think that I should be here . I'm very sad . Depression Encounter Details Date Type Department Care Team (Late st Contact Info) Description 03/14/2011 3:16 PM EDT - 03/14/2011 5:43 PM EDT Emergency [facility] [address] [place] [address] Patsy Vasquez MD [address] [place] [id number] Alcoholism (HCC); Depression; Elevated LFT's Discharge Disposition: Home or Self Care Social History Tobacco Use Types Packs/Day Years Used Date Smoking Tobacco: Never Alcohol Use Standard Drinks/Week Comments Yes 0 (1 standard drink = 0.6 oz pur e alcohol) Comments Unknown Sex and Gender Information Value Date Recorded Sex Assigned at Not on file Legal Sex Female 8:28 AM EDT Gender Identity Not on file Sexual Orientation Not on file documented as of this encounter Last Filed Vital Signs Vital Sign Reading Time Taken Comments Blood Pressure 140/81 03/14/2011 4:50 PM EDT Pulse 96 03/14/2011 4:50 PM EDT Temperature 36.5 ??C (97.7 ??F) 03/14/2011 5:26 PM ED T Respiratory Rate 16 03/14/2011 4:50 PM EDT Oxygen Saturation 97% 03/14/2011 4:50 PM EDT Inhaled Oxygen Concentration - - Weight 49.9 kg (110 lb) 03/14/2011 3:16 PM EDT Height - - Body Mass Index - - documented in this encounter Discharge Instructions * Discharge Instructions* Zenaida Burciaga PA-C - 03/14/2011 5:31 PM EDT Stop drinking. Take librium as prescribed for withdrawal symptoms. Followup as instructed. Return to the ER for seizure, change in mental status or hallucinations/delusions, or for any concerns. * Attachments The following attachments cannot be sent through Care Everywhere. * ALCOHOL WITHDRAWAL (TAMAZIGHT) documented in this encounter Medications at Time of Discharge chlordiazepoxide (LIBRIUM) 25 mg capsule Take 1 Cap by mouth 3 times daily as needed. for withdrawal 15 Cap 0 03/14/2011 1 documented as of this encounter Ordered Prescriptions Prescription Sig Dispense Quantity Refills Last Filled Start Date End Date chlordiazepoxide (LIBRIUM) 25 mg capsule Take 1 Cap by mouth 3 times daily as needed. for withdrawal 15 Cap 0 03/14/2011 1 documented in this encounter Discharge Disposition Disposition Code Departure Means Destination Home or Self Care documented in this encounter Progress Notes * Unknown, Unknown - 03/15/2011 12:48 PM EDT * Unknown, Unknown - 03/15/2011 12:48 PM EDT documented in this encounter Nursing Notes * Unknown, Unknown - 03/15/2011 11:20 AM EDT documented in this encounter ED Notes * Zenaida Burciaga PA-C - 03/14/2011 7:01 PM EDT Chief Complaint Patient presents with ??? Alcohol Problem Pt brought in by family. +ETOH States I'm upset, I'm sad, I'm depressed . Denies suicidal thoughts. States my parents think that I should be here . I'm very sad . ??? Depression HPI Comments: A 50-year-old female presents to the emergency department for evaluation. She is a very poor historian. She is acutely intoxicated. She states she is here because I don't feel very well. She states this several times. She has clarified this to being emotionally unwell. She states ithas been going on for months, that she feels depressed. She is here because she tells me her parents thought that she should come in. She states because I need to do something for my health. She isunable to elaborate further. The patient states that she has had a pint of liquor today. She also states that she has not been eating. Denies any drug use. She states she does drink daily, has been an alcoholic for many years. She states she has not been sober in years. States that she was in rehabilitation about 4 or 5 years ago, has had no other admissions for rehabilitation. She states her is 69 years old, has heart problems and is in a long term. She states because of this she gets some kind of monthly stipend. She states her and her son live in a nice $300,000 home. She does not have any health insurance. She has 30-year-old child and an 8-year-old child. The 8 year-old child lives with her, but spends a lot of time at her parents house. The patient is unemployed. She doestell me that she wants to stop drinking today. She denies any suicidal or homicidal ideation, abdominal pain, nausea, vomiting The history is provided by the patient. No Known Allergies Home Medications: Prior to Admission medications Medication Sig Start Date End Date Taking? Authorizing Provider chlordiazepoxide (LIBRIUM) 25 mg capsule Take 1 Cap by mouth 3 times daily as needed. for withdrawal 03/14/11 Patsy Vasquez Past Medical History: Past Medical History Diagnosis Date ??? Crohn disease ??? Cancer Social History: reports that she has never smoked. She does not have any smokeless tobacco history on file. She reports that she drinks alcohol. She reports that she does not currently use illicit drugs. Family History: History reviewed. No pertinent family history. Surgical History: History reviewed. No pertinent past surgical history. Review of Systems All other systems reviewed and are negative. Blood pressure 140/81, pulse 96, temperature 97.7 ??F (36.5 ??C), temperature source Oral, resp. rate 16, weight 110 lb (49.896 kg), SpO2 97%. Physical Exam Nursing note and vitals reviewed. Constitutional: She is oriented. She appears well-developed and well-nourished. No distress. The patient is intoxicated though is oriented and answers questions appropriately. HENT: Head: Normocephalic and atraumatic. Right Ear: External ear normal. Left Ear: External ear normal. Nose: Nose normal. Mouth/Throat: Oropharynx is clear and moist. No oropharyngeal exudate. Eyes: Conjunctivae and extraocular motions are normal. Pupils are equal, round, and reactive to light. Right eye exhibits no discharge. Left eye exhibits no discharge. No scleral icterus. Neck: Normal range of motion. Neck supple. Cardiovascular: Normal rate, regular rhythm and normal heart sounds. Exam reveals no gallop and no friction rub. No murmur heard. Pulmonary/Chest: Effort normal and breath sounds normal. No respiratory distress. She has no wheezes. She has no rales. Abdominal: Soft. Bowel sounds are normal. She exhibits no distension. No tenderness. She has no rebound and no guarding. Musculoskeletal: Normal range of motion. She exhibits no edema. Lymphadenopathy: She has no cervical adenopathy. Neurological: She is alert and oriented. She exhibits normal muscle tone. Skin: Skin is warm and dry. No rash noted. Psychiatric: Thought content is not paranoid and not delusional. She exhibits a depressed mood. Sheexpresses no homicidal and no suicidal ideation. She expresses no suicidal plans and no homicidal plans. Procedures Radiology/EKG/Labs: Results for orders placed during the hospital encounter of 03/14/11 BASIC METABOLIC PANEL Component Value Range ??? Sodium 142 135-146 (mmol/L) ??? Potassium 4.2 3.5-5.3 (mmol/L) ??? Chloride 102 98-110 (mmol/L) ??? Total CO2 27 21-33 (mmol/L) ??? Anion Gap 13 7-16 (mmol/L) ??? Calcium 9.2 8.6-10.2 (mg/dL) ??? Glucose Lvl 96 65-99 (mg/dL) ??? BUN 8 7-25 (mg/dL) ??? Creatinine 0.7 0.5-1.2 (mg/dL) ? ? GFR Afr Am >60 - ? ? GFR Non Afr Am >60 - CBC WITH AUTO DIFF Component Value Range ??? WBC 4.8 3.8-10.8 (x10(3)/mcL) ??? RBC 4.76 3.80-5.10 (x10(6)/mcL) ??? Hgb 15.3 11.7-15.5 (gm/dL) ??? Hct 45.9 (*) 35.0-45.0 (%) ??? MCV 96.2 80.0-100.0 (fL) ??? MCH 32.0 27.0-33.0 (pg) ??? MCHC 33.3 32.0-36.0 (gm/dL) ??? RDW 13.9 11.0-15.0 (%) ??? Platelet 186 140-400 (x10(3)/mcL) ??? MPV 7.1 (*) 7.5-11.5 (fL) HEPATIC FUNCTION PANEL Component Value Range ??? Total Protein 8.1 6.2-8.3 (gm/dL) ??? Albumin 4.5 3.6-5.1 (gm/dL) ??? Bili Direct 0.1 0.0-0.2 (mg/dL) ??? Bili Total 0.6 0.2-1.2 (mg/dL) ??? AST 113 (*) 10-35 (IU/L) ??? ALT 45 (*) 6-40 (IU/L) ??? Alk Phos 114 33-115 (IU/L) LIPASE LEVEL Component Value Range ??? Lipase Lvl 54 10-71 (IU/L) ALCOHOL MEDICAL Component Value Range ??? Alcohol Medical 488 (*) 0-9 (mg/dL) AUTO DIFF Component Value Range ??? Neut Percent 35.7 (*) 40.0-80.0 (%) ??? Lymph Percent 51.9 (*) 15.0-45.0 (%) ??? Ford Percent 5.4 0.0-12.0 (%) ??? Eos Percent 0.6 0.0-8.0 (%) ??? Baso Percent 6.4 (*) 0.0-1.0 (%) ??? Neut# 1.71 1.50-7.80 (x10(3)/mcL) ??? Lymph# 2.49 0.85-3.90 (x10(3)/mcL) ??? Ford# 0.26 0.20-0.95 (x10(3)/mcL) ??? Eos# 0.03 0.01-0.50 (x10(3)/mcL) ??? Baso# 0.31 (*) 0.00-0.20 (x10(3)/mcL) .DRUG SCREEN URINE (PRELIMINARY) Component Value Range ??? Cannabinoid Metabolites Absent - ??? Benzodiazepine Class Absent - ??? Cocaine Metab Absent - ??? Opiates Class Absent - ??? Barbiturate Class Absent - ??? Amphetamine Class Absent - ED Course: Appropriate laboratory and radiology studies reviewed The patient was seen and examined. An IV was established and she was given a rally pack. The patient's alcohol was significantly elevated at 488. Her drug screen is negative. She has a mild elevationof her liver enzymes, no evidence of pancreatitis or acute hepatitis. I believe the LFT elevation is secondary to her chronic alcoholism. The patient received about half of her rally pack and then wanted to leave. Her mother was here with her, agreed to keep an eye on her. Patient states that she wants to stop drinking and is committed to doing this. She is prescribed Librium today. She is given instructions for followup with [facility], [facility] and [facility]. She is in stable condition for discharge in the care of her mother. ED Clinical Impression: Alcoholism Depression Acute alcohol intoxication Elevated LFTs Critical Care time Condition at Discharge/Transfer from Department: Ihsan Burciaga 03/14/11 191 Cosigned by Patsy Vasquez MD at 03/14/2011 8:53 PM EDT * Chantel Treadwell, RN - 03/14/2011 5:41 PM EDT D/C instructions given. All questions and concerns addressed. Verbal understanding per: patient IV D/Cd with canula intact, dressing applied: Yes Rx provided: Yes Pt D/Cd via: ambulatory with family. documented in this encounter Plan of Treatment Upcoming Encounters Date Type Department Care Team (Late st Contact Info) Description 09/11/2024 1:45 PM EST Office Visit [facility] [address] [facility] [place] [address] Swapnil Lopez MD [address] [place] [address] 10/21/2024 2:00 PM EST Appointment [facility] MRI [address] [facility] [place] [address] Jacky Shirley MD [address] [place] [address] [place], [place] [id number] 10/23/2024 1:45 PM EST Appointment [facility] [place] [address] Olena Darby APRN [address] [place] [address] [place], [place] [id number] documented as of this encounter Procedures Procedure Name Priority Date/Time Associated Diagnosis Comments DRUG SCREEN URINE (FINAL) STAT 03/14/2011 5:00 PM EDT .DRUG SCREEN URINE (PRELIMINARY) STAT 03/14/2011 5:00 PM EDT THYROID STIMULATING HORMONE STAT 03/14/2011 4:36 PM EDT LIPASE LEVEL STAT 03/14/2011 4:36 PM EDT ALCOHOL MEDICAL STAT 03/14/2011 4:36 PM EDT HEPATIC FUNCTION PANEL STAT 03/14/2011 4:36 PM EDT BASIC METABOLIC PANEL STAT 03/14/2011 4:36 PM EDT DIFFERENTIAL STAT 03/14/2011 4:00 PM EDT CBC WITH DIFF STAT 03/14/2011 4:00 PM EDT documented in this encounter Results * (ABNORMAL) DRUG SCREEN URINE (FINAL) (03/14/2011 5:00 PM EDT) Anticonvulsants Absent [facility] Antidepressants Absent [facility] Antihistamines Absent [facility] Cardiac Depressants/Beta Blockers Absent [facility] Barbiturates/Hypnot ics Absent [facility] Opiates/Narcotic Analgesics Absent [facility] Other Analgesics Absent [facility] Stimulants Absent [facility] Tranquilizers Absent [facility] Miscellaneous Absent [facility] Specimen Note See Footnote(A ) [facility] Comment:Specimen negative fo r drugs tested by EMIT, TLC and/or GC/MS. Urine specimen (specimen) 03/14/2011 5:00 PM EDT 03/15/2011 11:38 AM EDT Patsy Vasquez MD URINE ORDERABLES Final Result [facility] [address] [place] [address] * .DRUG SCREEN URINE (PRELIMINARY) (03/14/2011 5:00 PM EDT) Cannabinoid Metabolites Absent 50 ng/mL [facility] Benzodiazepine Class Absent 200 ng/mL [facility] Cocaine Metab Absent 300 ng/mL [facility] Opiates Class Absent 300 ng/mL [facility] Barbiturate Class Absent 200 ng/mL [facility] Amphetamine Class Absent 1000 ng/mL [facility] Urine specimen (specimen) 03/14/2011 5:00 PM EDT 03/14/2011 5:08 PM EDT Patsy Vasquez MD URINE ORDERABLES Final Result Performing Organization Address [facility] Co de Phone Number [facility] [address] [place] [address] * (ABNORMAL) ALCOHOL MEDICAL (03/14/2011 4:36 PM EDT) Alcohol Medical 488(C) 0 - 9 mg/dL [facility] Comment:Critical result call ed to and read back by Chantel Treadwell at 03/14/2011 5:13 PM. Blood specimen (specimen) UPPER LIMB STRUCTURE / Unknown 03/14/2011 4:36 PM EDT 03/14/2011 4:43 PM EDT Patsy Vasquez MD CHEMISTRY ORDERABLES Final Resul t Performing Organization Address [facility] Phone Number [facility] [address] [place] [address] * THYROID STIMULATING HORMONE (03/14/2011 4:36 PM EDT) TSH 0.604 0.300 - 5.000 mcIU/mL [facility] Blood specimen (specimen) UPPER LIMB STRUCTURE / Unknown 03/14/2011 4:36 PM EDT 03/14/2011 8:12 PM EDT Patsy Vasquez MD CHEMISTRY ORDERABLES Final Resul t Performing Organization Address [facility] Co de Phone Number [facility] [address] [place] [address] * LIPASE LEVEL (03/14/2011 4:36 PM EDT) Lipase Lvl 54 10 - 71 IU/L [facility] Blood specimen (specimen) UPPER LIMB STRUCTURE / Unknown 03/14/2011 4:36 PM EDT 03/14/2011 4:43 PM EDT Patsy Vasquez MD CHEMISTRY ORDERABLES Final Resul t Performing Organization Address [facility] de Phone Number [facility] [address] [place] [address] * (ABNORMAL) HEPATIC FUNCTION PANEL (03/14/2011 4:36 PM EDT) Pathologist [facility] Total Protein 8.1 6.2 - 8.3 gm/dL [facility] Albumin 4.5 3.6 - 5.1 gm/dL [facility] Bili Direct 0.1 0.0 - 0.2 mg/dL [facility] Bili Total 0.6 0.2 - 1.2 mg/dL [facility] AST 113(H) 10 - 35 IU/L [facility] ALT 45(H) 6 - 40 IU/L [facility] Alk Phos 114 33 - 115 IU/L [facility] Blood specimen (specimen) UPPER LIMB STRUCTURE / Unknown 03/14/2011 4:36 PM EDT 03/14/2011 4:43 PM EDT Patsy Vasquez MD CHEMISTRY ORDERABLES Final Resul t Performing Organization Address [facility] de Phone Number [facility] [address] [place] [address] * BASIC METABOLIC PANEL (03/14/2011 4:36 PM EDT) Pathologist [facility] Sodium 142 135 - 146 mmol/L [facility] Potassium 4.2 3.5 - 5.3 mmol/L [facility] Chloride 102 98 - 110 mmol/L [facility] Total CO2 27 21 - 33 mmol/L [facility] Anion Gap 13 7 - 16 mmol/L [facility] Calcium 9.2 8.6 - 10.2 mg/dL [facility] Glucose Lvl 96 65 - 99 mg/dL [facility] BUN 8 7 - 25 mg/dL [facility] Creatinine 0.7 0.5 - 1.2 mg/dL [facility] GFR Afr Am >60 [facility] Comment: GFR is estimated using creatinine, [...] or less GFR Non Afr Am >60 [facility] Blood specimen (specimen) UPPER LIMB STRUCTURE / Unknown 03/14/2011 4:36 PM EDT 03/14/2011 4:43 PM EDT Patsy Vasquez MD CHEMISTRY ORDERABLES Edited [facility] [address] [place] [address] * (ABNORMAL) AUTO DIFF (03/14/2011 4:00 PM EDT) Neut Percent 35.7(L) 40.0 - 80.0 % [facility] Lymph Percent 51.9(H) 15.0 - 45.0 % [facility] Ford Percent 5.4 0.0 - 12.0 % [facility] Eos Percent 0.6 0.0 - 8.0 % [facility] Baso Percent 6.4(H) 0.0 - 1.0 % [facility] Neut# 1.71 1.50 - 7.80 x10(3)/[facility] Lymph# 2.49 0.85 - 3.90 x10(3)/[facility] Ford# 0.26 0.20 - 0.95 x10(3)/[facility] Eos# 0.03 0.01 - 0.50 x10(3)/[facility] Baso# 0.31(H) 0.00 - 0.20 x10(3)/[facility] Blood specimen (specimen) 03/14/2011 4:00 PM EDT 03/14/2011 4:10 PM EDT us Patsy Vasquez MD HEMATOLOGY ORDERABLES Final Resu lt Performing Organization Address City/[facility]/ZIP Co de Phone Number [facility] [address] [place] [address] * (ABNORMAL) CBC WITH AUTO DIFF (03/14/2011 4:00 PM EDT) WBC 4.8 3.8 - 10.8 x10(3)/mcL [facility] RBC 4.76 3.80 - 5.10 x10(6)/mcL [facility] Hgb 15.3 11.7 - 15.5 gm/dL [facility] Hct 45.9(H) 35.0 - 45.0 % [facility] MCV 96.2 80.0 - 100.0 fL [facility] MCH 32.0 27.0 - 33.0 pg [facility] MCHC 33.3 32.0 - 36.0 gm/dL [facility] RDW 13.9 11.0 - 15.0 % [facility] Platelet 186 140 - 400 x10(3)/[facility] MPV 7.1(L) 7.5 - 11.5 fL [facility] Blood specimen (specimen) UPPER LIMB STRUCTURE / Unknown 03/14/2011 4:00 PM EDT 03/14/2011 4:10 PM EDT us Patsy Vasquez MD HEMATOLOGY ORDERABLES Final Resu lt [facility] [address] [place] [address] documented in this encounter Visit Diagnoses Diagnosis Alcoholism (HCC) Other and unspecified alcohol dependence, unspecified drinking behavior Depression Depressive disorder, not elsewhere classified Elevated LFT's Nonspecific abnormal results of liver function study documented in this encounter Administered Medications Inactive Administered Medications - up to 1 most recent administrations Medication Order MAR Action Action Date Dose Rate Site folic acid 1 mg, MVI, adult w/ K 10 mL, thiamine (B-1) 100 mg, magnesium sulfate 2 g in sodium chloride 0.9 % 250 mL IVPB Intravenous, ONCE, 1 dose, On Mon03/14/11 at 1600, Administer over 120 Minutes IV Started 03/14/2011 4:14 PM EDT 125 mL/hr ondansetron (ZOFRAN) 4 mg/2 mL injection 4 mg 4 mg, Intravenous, ONCE, 1 dose, On Mon03/14/11 at 1645 Given 03/14/2011 4:47 PM EDT 4 mg documented in this encounter Active and Recently Administered Medications Times are shown in EDT. Scheduled Medication Order 03/12/2011 03/13/2011 03/14/2011 folic acid 1 mg, MVI, adult w/ K 10 mL, thiamine (B-1) 100 mg, magnesium sulfate 2 g in sodium chloride 0.9 % 250 mL IVPB (COMPLETED) Intravenous, ONCE, 1 dose, On Mon03/14/11 at 1600, Administer over 120 Minutes 1614 (IV Started - P rovider: Chantel Treadwell RN)1730 (IV STOP - Provider: Chantel Treadwell RN) ondansetron (ZOFRAN) 4 mg/2 mL injection 4 mg (COMPLETED) 4 mg, Intravenous, ONCE, 1 dose, On Mon03/14/11 at 1645 1647 (Given - Provid er: Chantel Treadwell RN) documented in this encounter Orders Lab Orders Without Results Count Last Ordered D ate First Ordered Date DRUG SCREEN COMPREHENSIVE URINE 1 1 documented in this encounter
--- OUTSIDE RECORDS SUMMARY | 2024-08-15 13:59 | XMS_ITS | Encounter Summary ---
Author Organization [place] [address] Care Team Providers Care Creative Services Coordinator Name Role Phone Unavailable Primary Care Provider Unavailabl e Encounter Details Date Type Department Care Team (Late st Contact Info) Description 10/03/2007 10:03 PM EST - 10/04/2007 3:13 AM EST Hospital Encounter [facility] Generic, [...] encounter ED Notes * Unknown, Unknown - 01/26/2010 10:53 AM EDT documented in this encounter Plan of Treatment Upcoming Encounters Date Type Department Care Team (Late st Contact Info) Description 09/11/2024 1:45 PM EST Office Visit [facility] [address] [place] [address] Swapnil Lopez MD [address] [place] [address] 10/21/2024 2:00 PM EST Appointment [facility] MRI [address] [place], [place] [id number] Jacky Shirley MD [address] [place] [address] [place] [address] 10/23/2024 1:45 PM EST Appointment [facility] [place] [address] Olena Darby APRN [address] [place] [address] [place] [address] documented as of this encounter Visit Diagnoses Not on filedocumented in this encounter
--- OUTSIDE RECORDS SUMMARY | 2024-08-15 13:59 | XMS_ITS | Encounter Summary ---
Author Organization [place] [address] Care Team Providers Care Machine Maintenance Repairer Name Role Phone Unavailable Primary Care Provider Unavailabl e Encounter Details Date Type Department Care Team (Late st Contact Info) Description 04/10/2005 7:14 AM EDT - 04/10/2005 9:14 AM EDT Hospital Encounter [facility] [...] encounter ED Notes * Unknown, Unknown - 02/21/2010 5:48 PM EDT documented in this encounter Plan of Treatment Upcoming Encounters Date Type Department Care Team (Late st Contact Info) Description 09/11/2024 1:45 PM EST Office Visit [facility] [address] [place] [address] Swapnil Lopez MD [address] [place] [address] 10/21/2024 2:00 PM EST Appointment [facility] MRI [address] [place], [place] [id number] Jacky Shirley MD [address] [facility] [place] [address] 10/23/2024 1:45 PM EST Appointment [facility] [place] [address] Olena Darby, COMMERCIAL CARPET INSTALLER [address] [facility] [place] [address] Scheduled Orders Name Type Priority Associated Diagnoses Orde r Schedule XR CHEST PA OR AP Imaging Routine Once fo r 1 Occurrences starting 01/14/2010 until 01/14/2010, 1 completed documented as of this encounter Procedures Procedure Name Priority Date/Time Associated Diagnosis Comments DIAG CHEST PA OR AP Routine 04/10/2005 1 2:00 AM EDT documented in this encounter Results * XR CHEST PA OR AP (04/10/2005 12:00 AM EDT) Anatomical Region Laterality Modality Other 04/10/2005 04/10/2005 Narrative 04/10/2005 12:00 AM EDT VERIFIED [facility] Reason: ??CP Dict.Staff: TAI HERNANDEZ Verified By: TAI HERNANDEZ ?Jenni: 04/10/05 ?? 3:09 pm Exams: ??DIAG-CHEST PA OR AP ONE-VIEW CHEST: ??04/07/2005. HISTORY: ??Chest pain. The lungs are clear and well expanded. ??The heart and mediastinum are normal. IMPRESSION: ??No acute disease. NUBIA:veronique end of result Procedure Note Unknown, U - 01/14/2010 VERIFIED [facility] Reason: CP Dict.Staff: TAI HERNANDEZ Verified By: TAI HERNANDEZ Jenni: 04/10/05 3:09 pm Exams: DIAG-CHEST PA OR AP ONE-VIEW CHEST: 04/07/2005. HISTORY: Chest pain. The lungs are clear and well expanded. The heart and mediastinum are normal. IMPRESSION: No acute disease. NUBIA:veronique end of result us U Unknown IMG [facility] HISTORICAL Final Result documented in this encounter Visit Diagnoses Not on filedocumented in this encounter
--- NOTE | 2024-08-15 14:07 | A.OFFVIS_ITS ---
[facility] Disclaimer: The information contained in this section may have been updated after the patient was seen, as this information can be updated by other users. Social History (Updated 05/26/22 @ 12:17 by Kristina Chase APRN) Smoking Status: Never smoker alcohol intake: never current occupational status: unemployed Travel in the last 8 weeks: None PM Subjective & Objective Subjective Subjective:: Patient is a pleasant 64-year-old female who presents today for medication refill and 3-month follow-up. Today she rates her pain a 8 out of 10. Patient denies any new trauma or injury. She does state that she has been experiencing Crohn's flareup and that is why her pain has been so much higher. Patient is currently managed with tramadol 50 mg 6 times a day. She denies any side effects from this medication. Her Cory has been reviewed and is appropriate. Review of Systems: General: No recent weight changes, no fever, no sleep disturbances Respiratory: No cough, no shortness of air, no recurring pulmonary infections Cardiovascular/peripheral vascular: No chest pain, no palpitations, no edema, no shortness of breath Gastrointestinal: No new onset incontinence, normal bowel movements reported Genitourinary: No new onset incontinence Musculoskeletal: Abdominal pain Psychiatric: [Normal mood/affect] Neurological: [Denies weakness in extremities], [denies balance issues] Pain at rest (0-10 scale): 8 Objective Objective:: Physical Exam: General: Alert and oriented x3, no acute distress, pleasant and cooperative Lungs: Respirations even and unlabored, symmetrical chest expansion Eyes: PERRL Musculoskeletal: Flexion and extension of lumbar [spine] somewhat guarded secondary to pain, [antalgic gait noted] Neurological: Speech clear, no gross sensory deficit Has patient had previous pain injection?: No Conservative treatment options previously tried: Home exercise plan Length of treatment: Longer than 12 weeks Meds Home Medications and Allergies Home Medications ?Medication ?Instructions ?Recorded ?Confirmed ?Type loperamide 2 mg tablet 2 mg PO Q3H diarrhea 04/25/22 05/16/24 History ondansetron HCl 4 mg tablet 4 mg PO Q6H PRN Nausea 04/25/22 05/16/24 History prednisone 10 mg tablets in a dose 10 mg PO DAILY PRN chrons 04/25/22 05/16/24 History pack ustekinumab 45 mg/0.5 mL 45 mg SQ . DIRECTED chrons 04/25/22 05/16/24 History subcutaneous syringe tramadol 50 mg tablet 50 mg PO 5XDAY #150 tabs 04/17/23 05/16/24 Rx anastrozole 1 mg tablet 1 mg PO DIRECTED 05/16/24 05/16/24 History diphenoxylate-atropine 2.5 2.5 tab PO DIRECTED 05/16/24 05/16/24 History mg-0.025 mg tablet promethazine 25 mg tablet 25 mg PO DIRECTED 05/16/24 05/16/24 History ribociclib 400 mg/day (200 mg x 2) 400 mg PO DIRECTED 05/16/24 05/16/24 History tablets (Kisqali) tramadol 50 mg tablet 50 mg PO Q4H PRN pain #180 tabs 05/16/24 Rx tramadol 50 mg tablet 50 mg PO Q4H PRN pain #72 tabs 07/26/24 Rx New Prescriptions to Start Prescriptions: Allergies Allergy/AdvReac Type Severity Reaction Status Date / Time fat emulsions Allergy Unknown Verified 03/15/23 14:32 allergy reaction Sulfa (Sulfonamide Allergy Unknown Verified 03/15/23 14:32 Antibiotics) allergy reaction Assessment and Plan *Assessment and plan (1) Generalized abdominal pain: Status: Acute Category: Medical Code(s): R10.84 - Generalized abdominal pain (2) Crohn's disease: Status: Acute Category: Medical Code(s): K50.90 - Crohn's disease, unspecified, without complications Plan We will refill the patient's tramadol and provide a 3-month supply of this medication. Patient will return to clinic in 3 months for reevaluation of symptoms and plan of care. Risks and benefits of the medication have been explained in detail to the patient. The patient does understand the risk of dependence on the medication when given over a prolonged period. Patient has been advised of risks of oversedation with the prescribed medication. Narcan has been offered to the paitent in the event of oversedation. Patient has been advised that a family member should also be educated regarding administration of Narcan. The patient has been advised to consult with his/her primary care provider and pharmacist regarding drug-drug interaction of medications currently prescribed. Patient has been prescribed a controlled substance after being counseled on the medication, medication safety, and possible side effects. Opioid contract was reviewed and signed by the patient, and that they have agreed to all of the terms set forth by our compliance program. Patient has been instructed to contact the clinic with any concerns before the next appointment. Dr. Rankin has reviewed this note and agrees with this plan of care. This note was dictated using voice recognition software and make contain errors or omissions.
[2024-08-15 14:52] VITALS: BP 132/85; PULSE 76; RESP 14; O2SAT 100; BMI 21.0
== END 2024-08-15 23:59 | disposition home or self-care (01) ==
PROVIDERS: Visit Provider Nurse Practitioner Family
DX: R10.84 Generalized abdominal pain (principal); K50.90 Crohn's disease, unspecified, without complications
CPT/HCPCS: 99212; G0463

== ENCOUNTER 2024-11-29 14:37 | Outpatient (POV) | payer MEDICAID, SELFPAY ==
[2024-11-29 15:06] VITALS: BP 127/85; PULSE 79; RESP 14; O2SAT 97; BMI 21.0
--- NOTE | 2024-11-29 15:37 | EXP.PAIN.SOA ---
[facility] Disclaimer: The information contained in this section may have been updated after the patient was seen, as this information can be updated by other users. Social History (Updated 05/26/22 @ 12:17 by Kristina Chase APRN) Smoking Status: Never smoker alcohol intake: never current occupational status: other Travel in the last 8 weeks: None PM Subjective & Objective Subjective Subjective:: Patient is a pleasant 64-year-old female who presents today for 3-month medication refill. Today she rates her pain an 8 out of 10. Patient does state that her cancer has spread to additional lymph nodes from her last visit however states that it is still not gone back to her breast and that they did do a brain scan that was good. Patient does state that the tramadol currently she is on just does not seem like it is working as well. She has been doing her chemo radiation treatments and states that she is having a reaction to it causing some skin problems along her back. She states she is following up with dermatology in December. Patient is currently managed with tramadol 50 mg 6 times a day from our office. She is asking whether or not if there is anything additional we can do to provide additional improvement. Her Cory has been reviewed and is appropriate. Review of Systems: General: No recent weight changes, no fever, no sleep disturbances Respiratory: No cough, no shortness of air, no recurring pulmonary infections Cardiovascular/peripheral vascular: No chest pain, no palpitations, no edema, no shortness of breath Gastrointestinal: No new onset incontinence, normal bowel movements reported Genitourinary: No new onset incontinence Musculoskeletal: Chronic abdominal pain, stage IV cancer Psychiatric: [Normal mood/affect] Neurological: [Denies weakness in extremities], [denies balance issues] Pain at rest (0-10 scale): 8 Objective Objective:: Physical Exam: General: Alert and oriented x3, no acute distress, pleasant and cooperative Lungs: Respirations even and unlabored, symmetrical chest expansion Eyes: PERRL Musculoskeletal: Flexion and extension of lumbar [spine] somewhat guarded secondary to pain, [antalgic gait noted] Neurological: Speech clear, no gross sensory deficit Has patient had previous pain injection?: No Conservative treatment options previously tried: Home exercise plan Length of treatment: Longer than 12 weeks Meds Home Medications and Allergies Home Medications ?Medication ?Instructions ?Recorded ?Confirmed ?Type loperamide 2 mg tablet 2 mg PO Q3H diarrhea 04/25/22 11/29/24 History ondansetron HCl 4 mg tablet 4 mg PO Q6H PRN Nausea 04/25/22 11/29/24 History prednisone 10 mg tablets in a dose 10 mg PO DAILY PRN chrons 04/25/22 11/29/24 History pack ustekinumab 45 mg/0.5 mL 45 mg SQ . DIRECTED chrons 04/25/22 11/29/24 History subcutaneous syringe tramadol 50 mg tablet 50 mg PO 5XDAY #150 tabs 04/17/23 11/29/24 Rx anastrozole 1 mg tablet 1 mg PO DIRECTED 05/16/24 11/29/24 History diphenoxylate-atropine 2.5 2.5 tab PO DIRECTED 05/16/24 11/29/24 History mg-0.025 mg tablet promethazine 25 mg tablet 25 mg PO DIRECTED 05/16/24 11/29/24 History ribociclib 400 mg/day (200 mg x 2) 400 mg PO DIRECTED 05/16/24 11/29/24 History tablets (Kisqali) tramadol 50 mg tablet 50 mg PO Q4H PRN pain #72 tabs 07/26/24 11/29/24 Rx tramadol 50 mg tablet 50 mg PO Q4H PRN pain #180 tabs 08/15/24 11/29/24 Rx tramadol 50 mg tablet 50 mg PO Q4H PRN pain #180 tabs 10/04/24 11/29/24 Rx baclofen 5 mg tablet 5 mg PO TID #42 tabs 11/29/24 Rx tramadol 100 mg tablet 100 mg PO TID PRN pain #90 tabs 11/29/24 Rx New Prescriptions to Start Prescriptions: baclofen Chase,Kristina A tramadol Chase,Kristina A Allergies Allergy/AdvReac Type Severity Reaction Status Date / Time fat emulsions Allergy Unknown Verified 03/15/23 14:32 allergy reaction Sulfa (Sulfonamide Allergy Unknown Verified 03/15/23 14:32 Antibiotics) allergy reaction Assessment and Plan *Assessment and plan (1) Breast cancer: Status: Acute Qualifiers: Breast location: unspecified site of breast Estrogen receptor status: unspecified Laterality: left Patient sex: female Qualified Code(s): C50.912 - Malignant neoplasm of unspecified site of left female breast Category: Medical Code(s): C50.919 - Malignant neoplasm of unspecified site of unspecified female breast (2) Generalized pain: Status: Acute Category: Medical Code(s): R52 - Pain, unspecified (3) Generalized abdominal pain: Status: Acute Category: Medical Code(s): R10.84 - Generalized abdominal pain (4) Crohn's disease: Status: Acute Category: Medical Code(s): K50.90 - Crohn's disease, unspecified, without complications Plan I did discuss with the patient that we can try some additional options to provide better coverage. I will order the patient a compounded cream as well as send in a new prescription of tramadol 100 mg 3 times daily. I will also send in a new prescription of baclofen 5 mg 3 times daily. Patient will return to clinic in 1 month via telehealth appointment. I did extension course counselor her that we can go over and see how she is done with the new medication regimen and as long as she is doing well we will send in a 3-month supply of this medication following. Patient agrees with this plan of care. Risks and benefits of the medication have been explained in detail to the patient. The patient does understand the risk of dependence on the medication when given over a prolonged period. Patient has been advised of risks of oversedation with the prescribed medication. Narcan has been offered to the paitent in the event of oversedation. Patient has been advised that a family member should also be educated regarding administration of Narcan. The patient has been advised to consult with his/her primary care provider and pharmacist regarding drug-drug interaction of medications currently prescribed. Patient has been prescribed a controlled substance after being counseled on the medication, medication safety, and possible side effects. Opioid contract was reviewed and signed by the patient, and that they have agreed to all of the terms set forth by our compliance program. A UDS is needed to verify patient's compliance with our office pain contract. This is ordered based off specific treatments related to chronic pain with the potential to abuse certain medications. Patient has been instructed to contact the clinic with any concerns before the next appointment. Dr. Rankin has reviewed this note and agrees with this plan of care. This note was dictated using voice recognition software and make contain errors or omissions.
== END 2024-11-29 23:59 | disposition home or self-care (01) ==
PROVIDERS: Visit Provider Nurse Practitioner Family
DX: C50.912 Malignant neoplasm of unspecified site of left female breast (principal); R10.84 Generalized abdominal pain; K50.90 Crohn's disease, unspecified, without complications
CPT/HCPCS: 99212; G0463

== ENCOUNTER 2024-12-26 12:59 | Outpatient (POV) | payer MEDICAID, SELFPAY ==
--- NOTE | 2024-12-26 13:12 | A.OFFVIS_ITS ---
[facility] Disclaimer: The information contained in this section may have been updated after the patient was seen, as this information can be updated by other users. Social History (Updated 05/26/22 @ 12:17 by Kristina Chase APRN) Smoking Status: Never smoker alcohol intake: never current occupational status: other Travel in the last 8 weeks: None PM Subjective & Objective Subjective Subjective:: Patient was given a choice of telemedicine visit or office visit; patient chose telemedicine/telehealth visit. These telehealth appointments are made on a [id number] scenario generally related to patient being ill and contagious or environmental factors related to ongoing weather patterns that makes it unsafe for travel to our physical office location. Patient is an established patient with their informed consent to treat signed and on file. Patient has given verbal consent for this telehealth appointment however understands that they do have the right to withdraw consent at any time. Patient was counseled regarding risk versus benefits of telehealth appointments. Patient was counseled there may arise limitations to said appointments such as: -The telehealth encounter not yielding sufficient information to make appropriate clinical decision which may require additional in person visits -Technology problems that may delay a medical evaluation and treatment for today's encounter and in rare instances -Security protocols could fail, causing a breach of privacy of personal medical information. Should such an event occur, patient would be promptly notified of any security issues that may arise. Patient acknowledges understanding regarding any and all risk associated with this appointment and would like to proceed forward with the telehealth appointment. This visit is being conducted via telemedicine telehealth ([place] in accordance with all applicable laws and regulations. Patient is located in [place] and the treating medical provider is located in [place], [place]. Patient is a pleasant 64-year-old female who presents today for 1 month follow- up via telehealth appointment. Today she rates her pain a 0 out of 10. Patient states that this is the best she has felt in 6 years. She states that the changes we made last month at her appointment with her medications has made all the difference. Patient was changed from tramadol 50 mg 6 times a day to tramadol 100 mg 3 times a day and was added the addition of baclofen 5 mg 3 times daily and compounded cream. Patient states that she had improvement with the baclofen as well as the compounded cream. She states that she cannot speak enough help great she feels with this medication. She states that even on better days that she has noticed that if she is not doing a lot of activity she can take one of the tramadol and it lasts most of the entire day. Patient states she is very pleased. Patient denies any new falls or injuries. Patient did confirm that this appointment is occurring while she is at her home here in [place] and she has given verbal consent for this audio appointment. Patient is requesting refills. 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 Patient does state however she does not have any pain in the left hip. Her Cory has been reviewed and is appropriate. Review of Systems: General: No recent weight changes, no fever, no sleep disturbances Respiratory: No cough, no shortness of air, no recurring pulmonary infections Cardiovascular/peripheral vascular: No chest pain, no palpitations, no edema, no shortness of breath Gastrointestinal: No new onset incontinence, normal bowel movements reported Genitourinary: No new onset incontinence Musculoskeletal: Chronic pain Psychiatric: [Normal mood/affect] Neurological: [Denies weakness in extremities], [denies balance issues] Pain at rest (0-10 scale): 0 Objective Objective:: General: Alert and oriented x3, pleasant and cooperative Lungs: Patient is able to say complete sentences without dyspnea Neurological: Speech clear Has patient had previous pain injection?: No Conservative treatment options previously tried: Home exercise plan Length of treatment: Longer than 12 weeks Meds Home Medications and Allergies Home Medications ?Medication ?Instructions ?Recorded ?Confirmed ?Type loperamide 2 mg tablet 2 mg PO Q3H diarrhea 04/25/22 11/29/24 History ondansetron HCl 4 mg tablet 4 mg PO Q6H PRN Nausea 04/25/22 11/29/24 History prednisone 10 mg tablets in a dose 10 mg PO DAILY PRN chrons 04/25/22 11/29/24 History pack ustekinumab 45 mg/0.5 mL 45 mg SQ . DIRECTED chrons 04/25/22 11/29/24 History subcutaneous syringe tramadol 50 mg tablet 50 mg PO 5XDAY #150 tabs 04/17/23 11/29/24 Rx anastrozole 1 mg tablet 1 mg PO DIRECTED 05/16/24 11/29/24 History diphenoxylate-atropine 2.5 2.5 tab PO DIRECTED 05/16/24 11/29/24 History mg-0.025 mg tablet promethazine 25 mg tablet 25 mg PO DIRECTED 05/16/24 11/29/24 History ribociclib 400 mg/day (200 mg x 2) 400 mg PO DIRECTED 05/16/24 11/29/24 History tablets (Kisqali) tramadol 50 mg tablet 50 mg PO Q4H PRN pain #72 tabs 07/26/24 11/29/24 Rx tramadol 50 mg tablet 50 mg PO Q4H PRN pain #180 tabs 08/15/24 11/29/24 Rx tramadol 50 mg tablet 50 mg PO Q4H PRN pain #180 tabs 10/04/24 11/29/24 Rx baclofen 5 mg tablet 5 mg PO TID #42 tabs 11/29/24 Rx tramadol 100 mg tablet 100 mg PO TID PRN pain #90 tabs 11/29/24 Rx New Prescriptions to Start Prescriptions: Allergies Allergy/AdvReac Type Severity Reaction Status Date / Time fat emulsions Allergy Unknown Verified 03/15/23 14:32 allergy reaction Sulfa (Sulfonamide Allergy Unknown Verified 03/15/23 14:32 Antibiotics) allergy reaction Assessment and Plan *Assessment and plan (1) Brain cancer: Status: Acute Qualifiers: Malignant neoplasm of brain location: unspecified location Qualified Code(s): C71.9 - Malignant neoplasm of brain, unspecified Category: Medical Code(s): C71.9 - Malignant neoplasm of brain, unspecified (2) Breast cancer: Status: Acute Qualifiers: Breast location: unspecified site of breast Estrogen receptor status: unspecified Patient sex: female Laterality: left Qualified Code(s): C50.912 - Malignant neoplasm of unspecified site of left female breast Category: Medical Code(s): C50.919 - Malignant neoplasm of unspecified site of unspecified female breast (3) Generalized pain: Status: Acute Category: Medical Code(s): R52 - Pain, unspecified Plan Patient is doing extremely well with her changes to her medication regimen from last month. I did anger control counselor her that I will send in a 3-month supply of the baclofen and the tramadol with the 100 mg 3 times a day. Patient was counseled that we will contact her for her 3-month follow-up appointment. This will be done in office. Patient agrees with this plan of care. I did anger control counselor her if she needs anything in between now and her next visit to feel free to reach out. She agrees. This telehealth visit did last from 1308 to 1313. Risks and benefits of the medication have been explained in detail to the patient. The patient does understand the risk of dependence on the medication when given over a prolonged period. Patient has been advised of risks of oversedation with the prescribed medication. Narcan has been offered to the paitent in the event of oversedation. Patient has been advised that a family member should also be educated regarding administration of Narcan. The patient has been advised to consult with his/her primary care provider and pharmacist regarding drug-drug interaction of medications currently prescribed. Patient has been prescribed a controlled substance after being counseled on the medication, medication safety, and possible side effects. Opioid contract was reviewed and signed by the patient, and that they have agreed to all of the terms set forth by our compliance program. A UDS is needed to verify patient's compliance with our office pain contract. This is ordered based off specific treatments related to chronic pain with the potential to abuse certain medications. Patient has been instructed to contact the clinic with any concerns before the next appointment. Dr. Rankin has reviewed this note and agrees with this plan of care. This note was dictated using voice recognition software and make contain errors or omissions.
== END 2024-12-26 23:59 | disposition home or self-care (01) ==
PROVIDERS: Visit Provider Nurse Practitioner Family
DX: C71.9 Malignant neoplasm of brain, unspecified (principal); C50.912 Malignant neoplasm of unspecified site of left female breast; R52 Pain, unspecified
CPT/HCPCS: 99212; G0463

== ENCOUNTER 2025-03-17 13:30 | Outpatient (POV) | payer MEDICAID, SELFPAY ==
--- OUTSIDE RECORDS SUMMARY | 2024-01-23 10:45 | XMS_ITS | Encounter Summary ---
Author Organization [place] [address] Care Team Providers Care Processing Assistant Name Role Phone Swapnil Lopez MD Unavailable [phone] Damaso Black MD Primary Care Provider [phone] Darío Rubio MD Unavailable [phone] Mya Naranjo MD Unavailable [phone] Ashley Ordonez APRN Unavailable [phone] Nicole Melendez RN Unavailable Unavailable Encounter Details Date Type Department Care Team (Latest Contact Info) Description 01/23/2024 10:45 AM EDT Hospital Encounter [facility] [place], [place] [id number] Jacky Shirley MD [address] [place] [address] [facility] [place] [id number] Left without seen Social History Tobacco Use Types Packs/Day Years Used Date Smoking Tobacco: Never Smokeless Tobacco: Never Alcohol Use Standard Drinks/Week Comments Not Currently 0 (1 standard drink = 0.6 oz pur e alcohol) PHQ-2 Answer Date Recorded PHQ-2 Total Score 3 12/29/2023 Comments No Sex and Gender Information Value Date Recorded Sex Assigned at Not on file Legal Sex Female 8:28 AM EDT Gender Identity Not on file Sexual Orientation Not on file documented as of this encounter Functional Status * Is the person deaf or does he/she have serious difficulty hearing? Answer Date of Assessment Author No 09/05/2017 11:13 AM Gabby De La Garza RMA * Is the person blind or does he/she have serious difficulty seeing even when wearing glasses? Answer Date of Assessment Author No 09/05/2017 11:13 AM Gabby De La Garza SHANNON * Does this person have serious difficulty walking or climbing stairs? Answer Date of Assessment Author No 09/05/2017 11:13 AM Gabby De La Garza SHANNON * Does this person have difficulty dressing or bathing? Answer Date of Assessment Author No 09/05/2017 11:13 AM Gabby De La Garza SHANNON * Because of a physical, mental or emotional condition, does this person have difficulty doing errands alone such as visiting a doctor's office or shopping? Answer Date of Assessment Author No 09/05/2017 11:13 AM Gabby De La Garza SHANNON * Suicide Severity Rating Answer Date of Assessment Author No Risk 12/24/2024 2:00 PM Sukhi Dick MA * [place] Suicide Severity Rating Scale (Q shift for moderate and high) Question Answer Date of Assessment Author 1. In the past month, have y ou wished you were or wished you could go to sleep and not wake up? 0 12/24/2024 2:00 PM Loren Dick MA 2. In the past month, have y ou actually had any thoughts of killing yourself? (If no, skip to question 6) 0 12/24/2024 2:00 PM Loren Dick MA 6. Have you ever done anythi ng, started to do anything, or prepared to do anything to end your life? 0 12/24/2024 2:00 PM EDT Kelli Wild MA documented as of this encounter Mental Status * Because of a physical, mental or emotional condition, does this person have serious difficulty concentrating, remembering or making decisions? Answer Entry Date Author No 09/05/2017 11:13 AM Gabby De La Garza RMA documented in this encounter Plan of Treatment Upcoming Encounters Date Type Department Care Team (Late st Contact Info) Description 03/24/2025 10:40 AM EDT Appointment [place] [address] Darío Rubio MD [address] [place] [address] [facility] [place] [address] 05/19/2025 1:00 PM EDT [facility] [place] [address] Olena Darby APRN [address] [facility] [place] [address] 05/22/2025 2:45 PM EDT Appointment [facility] [place] [address] Jacky Shirley MD [address] [facility] [place] [address] documented as of this encounter Goals Goal Patient Goal Type Associated Problems Recent Progress Patient-Stated? Author Breast Health Breast Health Mary Kate Vázquez, RN Note: Patient acknowledges understanding of new diagnosis, plan of care, available resources and how to contact Nurse Navigator with any future questions or concerns. Maintain a healthy diet, exercise regularly and maintain an ideal body weight General No Linda [place], RMA documented as of this encounter Visit Diagnoses Not on filedocumented in this encounter Additional Health Concerns Assessment Noted Time PHQ-9 Depression Total Score: 13 024 1:47 PM EDT PHQ-2 Depression Total Score: 3 12/29/19 24 1:47 PM EDT documented as of this encounter Care Teams Processing Assistant Relationship Specialty Start Date End Date Damaso Black MD [address] [place] [address] PCP - General Family Medicine 11/22/22 Swapnil Lopez MD [address] [place] [address] Internal Medicine-Gastroenterology 02/16/22 Darío Rubio MD [address] [place] [address] Internal Medicine-Medical Oncology 12/11/23 Mya Naranjo MD [address] [place] [address] Family Medicine - Hospice And Palliative Medicine 01/04/24 Ashley Ordonez APRN [address] [place] [address] Nurse Practitioner 01/04/24 Nicole Melendez, RN Registered Nurse 01/04/24 documented as of this encounter
--- OUTSIDE RECORDS SUMMARY | 2025-01-29 14:37 | XMS_ITS | Encounter Summary ---
Author Organization [place] [address] Care Team Providers Care Aircraft Engine Specialist Name Role Phone Swapnil Lopez MD Unavailable [phone] Damaso Black MD Primary Care Provider [phone] Darío Rubio MD Unavailable [phone] Mya Naranjo MD Unavailable [phone] Ashley Ordonez SLITTER CUT OFF OPERATOR Unavailable [phone] Nicole Melendez RN Unavailable Unavailable Carine Viera RN Unavailable Unavailable Ronit Conner RN Unavailable Unavailable Armando Vieira HEDDLER TIER Unavailable Unavailable Vicki Amato RN Unavailable UnavailTrinh Soto SLITTER CUT OFF OPERATOR Unavailable [phone] Selina Olsen SLITTER CUT OFF OPERATOR Unavailable [phone] Veda Mcfarland Clerical Staff Unavailable U Jacky Santoyo MD Unavailable +-3 Reason for Referral * Nuclear Medicine (Routine) - Pending Review Specialty Diagnoses / Procedures Referred By Contac t Referred To Contact Radiology Diagnoses Invasive ductal carcinoma of left breast, stage 4 (HCC) Procedures NM BONE SCAN WHOLE BODY Darío Rubio MD 1 [place] [address] Phone: tel: fax: Referral ID Status Reason Start Date Expiration Date V isits Requested Visits Authorized [id number] Pending Review 01/29/2025 01/29/2026 5 5 * MRI/CAT Scan (Routine) - Authorized Specialty Diagnoses / Procedures Referred By Contac t Referred To Contact Radiology Diagnoses Invasive ductal carcinoma of left breast, stage 4 (HCC) Procedures CT CHEST ABDOMEN PELVIS WO ORAL WITH IV CONTRAST Darío Rubio MD [address] [facility] [address] Phone: tel: fax: [place] [facility] [address] [facility] [address] [place] [address] Phone: tel: fax: Referral ID Status Reason Start Date Expiration Date V isits Requested Visits Authorized [id number] Authorized 01/29/2025 01/29/2026 1 1 Encounter Details Date Type Department Care Team (Latest Contact Info) Description 01/29/2025 2:37 PM EDT - 01/29/2025 11:59 PM EDT Hospital Encounter [facility] [place] [address] Darío Rubio MD [address] [place] [address] [place] [address] Invasive ductal carcinoma of left breast, stage 4 (HCC) (Primary Dx); Encounter for chemotherapy management Discharge Disposition: Home or Self Care Social [...] or without food 30 Tablet 11 08/12/2024 baclofen 5 mg Oral Tablet 11/29/2024 diphenoxylate-atro pine (LOMOTIL) 2.5-0.025 mg Oral TabletIndications: Crohn's disease of both small and large intestine without complication (HCC) TAKE TWO TABLETS BY MOUTH FOUR TIMES A DAY; MAX DAILY DOSE 8 TABLETS 240 Tablet 5 12/10/2024 loperamide (IMODIUM) 2 mg Oral Capsule Take 1 Capsule by mouth every 3 hours as needed for Diarrhea. 200 Capsule 1 12/05/2024 loperamide (IMODIUM) 2 mg Oral CapsuleIndications :Diarrhea, unspecified type Take 1 Capsule by mouth every 3 hours. 200 Capsule 10/08/2024 methylPREDNISolone (MEDROL DOSPACK) 4 mg Oral Tablets, Dose PackIndications:Se condary malignant neoplasm of bone (HCC) Follow package directions. 1 Each 01/02/2025 ondansetron (ZOFRAN) 4 mg Oral Tablet Take [...] Progress Notes * Darío Rubio MD - 01/28/2025 11:00 AM EDT Images from the original note were not included. Patient presented today for routine care follow-up through a video visit. Patient has reviewed the terms and conditions of service as part of the registration for today's visit. A video visit does not replace a tqjf-ic-ptei exam and further services may be necessary. [...] 67 gene panel testing results were negative. 12/19/2024 - Genetics 12/19/2024: [id number] ordered for patient. Collection date 12/24/24. Sree Viera RN CURRENT TREATMENT: Kisqali + Arimidex INTERVAL HISTORY: Ms. Sy is a 64 y.o. female who is here for follow up. Patient states that since last visit she is doing well. No new breast complaints. Feeling well. No diarrhea. Reviewed past medical, surgical, family, and social histories. PHYSICAL EXAM: There were no vitals filed for this visit. Wt Readings from Last 3 Encounters: 12/24/24 137 lb (62.1 kg) 12/18/24 137 lb 3.2 oz (62.2 kg) 09/11/24 135 lb (61.2 kg) GENERAL APPEARANCE: Alert & Cooperative, Oriented X 3 LABS: CBC: Lab Results Component Value Date/Time WBC 7.8 12/24/2024 02:52 PM WBC 15.1 (H) 06/25/2016 11:25 AM RBC 4.42 12/24/2024 02:52 PM RBC 4.83 06/25/2016 11:25 AM PLT 265 12/24/2024 02:52 PM PLT 329 06/25/2016 11:25 AM CMP: Lab Results Component Value Date NA 140 12/24/2024 K 4.0 12/24/2024 CL 104 12/24/2024 CO2 26 12/24/2024 ANIONGAP 10 12/24/2024 CALCIUM 9.4 12/24/2024 GLU 138 (H) 12/24/2024 BUN 16 12/24/2024 CREATININE 0.91 12/24/2024 ALBUMIN 4.1 12/24/2024 PROT 7.1 12/24/2024 LABBILI <0.2 (L) 12/24/2024 ALT 9 12/24/2024 AST 15 12/24/2024 GFRAFRAM 77 04/13/2021 GFRNONAFRAM 67 04/13/2021 IMAGING/Testing All relevant images were reviewed in detail with the patient. All questions were addressed and answered in great detail. No results found. ASSESSMENT AND PLAN: Patient is a 63 y.o. 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 Stage IV Invasive Ductal Carcinoma of Left Breast (T2N3M1, ER+, MA+, HER2-) Patient reports feeling an enlarging breast lump. She is post-menopausal and has had a hysterectomyand no FMH of cancer. Left breast mass and left axilla biopsied and revealing invasive ductal carcinoma, grade 2, some DCIS as well. ER 96%, MA 73%, HER2 2+, FISH negative, lymph node [...] III disease at this time. Discussed in tumor board 11/13/23 and consensus for further imaging, to meet with us, and endocrine therapy to start along with oncotype. Saw Dr. Ruiz 11/13/23 as [...] for faslodex monthly monotherapy if still in detention. Discussed side effects of faslodex and gave information. If out of detention- would consider faslodex and ribociclib vs AI + CDK4/6. Out of detention mid December 2023 and I discussed we [...] modifying agents given distance from her house. Last scan 08/2024 improved breast mass and adenopathy, no new disease. Tolerating tx well with no side effects. She is doing well without any additional issues with G1 mild diarrhea mainly more from Crohn's disease. Notices more palpable area in left axilla in last few weeks at 12/18/24 visit. PET scan 11/2024 showing improved response in left breast and axilla, slightly higher SUV uptake in left pubic ramus which I reviewed with her but she is not having any additional pain in this area weopted for monitoring and stated if new/worsened pain to inform us and see radiation oncology for radiation potentially to area if pain developed. 01/29/25 update: -Continue AI + kisqali 400 mg daily (days 1-14, off 7 days after) -Tolerating well without issue -Labs are stable, labs monthly -GI manages lomotil for crohn's related diarrhea, follows with Dr Lopez -Endorses compliancy Ca/VitD and doing weight bearing exercise -Next scans due closer to March 2025 or sooner if clinical symptoms develop. Wants to do scans same day. -If worsening pain in pubic area- would send to radiation oncology for local control Follow up in 2 months A total of 22 minutes of the encounter was spent in performing the following complex tasks: 1) Reviewing medical records in [facility] and if applicable outside records as well 2) Ordering labs and reviewing results 3) Obtaining history and performing a physical exam 4) Counseling and educating patient, family, and caregiver(s) 5) Ordering medications, labs/tests (including independent interpretation of results when not reported separately), procedures and coordinating care amongst other healthcare [...] AM EDT Appointment [facility] [place] [address] Darío Rubio MD 1 [facility] [place] [address] 05/19/2025 1:00 PM EDT Appointment [facility] MRI [place] [id number] Olena Darby APRN [address] [place] [address] [place] [address] 05/22/2025 2:45 PM EDT Appointment [facility] [address] Jacky Shirley MD [address] [place] [address] [facility] [place] [address] Scheduled Orders Name Type Priority Associated Diagnoses Orde r Schedule CT CHEST ABDOMEN PELVIS WO ORAL WITH IV CONTRAST Imaging Routine Invasive ductal carcinoma of left breast, stage 4 (HCC) Expected: 03/26/2025, Expires: 01/29/2026 NM BONE SCAN WHOLE BODY Imaging Routine Invasive ductal carcinoma of left breast, stage 4 (HCC) Expected: 03/26/2025, Expires: 01/29/2026 documented as of this encounter Goals Goal [...] 4 (HCC)- Primary Encounter for chemotherapy management documented in this encounter Additional Health Concerns Assessment Noted Time PHQ-9 Depression Total Score: 13 024 1:47 PM EDT PHQ-2 Depression Total Score: 3 12/29/19 24 1:47 PM EDT documented as of this encounter Care Teams Aircraft Engine Specialist Relationship Specialty Start Date End Date Damaso Black MD [address] [place] [address] PCP - General Family Medicine 11/22/22 Swapnil Lopez MD [address] [place] [address] Internal Medicine-Gastroenterolog y 02/16/22 Darío Rubio MD [address] [facility] [place] [address] Internal Medicine-Medical Oncology 12/11/23 Mya Naranjo MD [address] [facility] [place] [address] Family Medicine - Hospice And Palliative Medicine 01/04/24 Ashley Ordonez APRN [address] [facility] [place] [address] Nurse Practitioner 01/04/24 Nicole Melendez, RN Registered Nurse 01/04/24 Carine Viera, RN Registered Nurse 02/07/24 Ronit Conner, RN Registered Nurse 04/10/24 Armando Vieira, ITA Criminal Justice Department Chair 04/10/24 Vicki Amato, RN Registered Nurse 04/10/24 Trinh Bullock APRN 1 [facility] [place] [address] Nurse Practitioner Nurse Practitioner-Family 04/10/24 Selina Olsen APRN 1 [facility] [place] [address] Nurse Practitioner 04/10/24 Veda Mcfarland, Clerical Staff 05/14/24 Jacky [place] MD 1 [facility] [place] [address] Radiation Oncologist Radiology-Radiation Oncology 11/12/24 documented as of this encounter
--- OUTSIDE RECORDS SUMMARY | 2025-03-17 13:35 | XMS_ITS ---
Author Organization [facility] Address [address] [place] [address] Phone Care Team Providers Care Correctional Therapy Director Name Role Phone Swapnil Lopez MD Unavailable [phone] Damaso Black MD Primary Care Provider [phone] Darío Rubio MD Unavailable [phone] Mya Naranjo MD Unavailable [phone] Ashley Ordonez DIRECTOR WORKERS COMPENSATION Unavailable [phone] Nicole Melendez RN Unavailable Unavailable Carine Viera RN Unavailable Unavailable Ronit Conner RN Unavailable Unavailable Armando Vieira [employer]IT ADJUSTER Unavailable Unavailable Vicki Amato RN Unavailable UnavailTrinh Soto DIRECTOR WORKERS COMPENSATION Unavailable [phone] Selina Olsen DIRECTOR WORKERS COMPENSATION Unavailable [phone] Veda Mcfarland Clerical Staff Unavailable U fidencioailable Jacky Shirley MD Unavailable +3-3 Active Problems Patient Care Coordination No te Formatting of this note migh t be different from the original. 07/09/19 Letter sent advising patient she is due for a mammogram. EB Controlled agreement signed for [email or web address] 11/11/20 with Problem Noted Date Diagnosed Date Irritable bowel syndrome with diarrhea Secondary malignant neoplasm of bone 01/10/2024 Palliative care by specialist 12/29/2023 Cancer related pain 12/29/2023 Invasive ductal carcinoma of breast, left 2023 Cancer Staging:Clinical stage from 11/13/2023:Stage IIA(cT2, cN1, cM0, G2, ER+, IA+, HER2-) - Signed by Ian Ruiz MD on 11/18/2023 De Quervain's tenosynovitis 03/24/2021 Overview (03/25/2021): Added automatically from request for surgery [id number] De Quervain thyroiditis 02/05/2021 Overview (02/05/2021): Added automatically from request for surgery [id number] De Quervain's tenosynovitis, left 02/05/2021 Overview (02/12/2021): Added automatically from request for surgery [id number] Ulcer of great toe, left, with necrosis [...] will need to watch closely. Hope that detention the ssri will help and will no [...] this. History of stomach cancer Depression Current Treatment and Therapy Plans ONC ribociclib (600) d1-21 + anastrozole (1) d1-28 Q28D* Plan Start Date: 01/03/2024 Plan Provider:Darío Rubio MD Linked Problems Invasive ductal carcinoma of breast, left (HCC) Treatment Medications Current Day (Day 1 , Cycle 0 - Planned for 01/03/2024) Next Day (Day 1, Cycle 1 - Planned for 01/04/2024) No medications scheduled. No medications schedul ed. No medications scheduled. Other Current Plans [facility] USTEKINUMAB (STELARA) FOR CHRON'S DISEASE AND ULCERATIVE COLITIS - NEW START * Plan Start Date:02/16/2022 Plan Provider:Swapnil Lopez MD Linked Problems Crohn's disease with complic ation, unspecified gastrointestinal tract location (HCC) Treatment Medications No medications scheduled. Past Treatment and Therapy Plans
--- OUTSIDE RECORDS SUMMARY | 2025-03-17 13:35 | XMS_ITS | Encounter Summary ---
Author Organization [place] [address] Care Team Providers Care Putty Patcher Name Role Phone Swapnil Lopez MD Unavailable [phone] Damaso Black MD Primary Care Provider [phone] Darío Rubio MD Unavailable [phone] Mya Naranjo MD Unavailable [phone] Ashley Ordonez SOLAR INSTALLER Unavailable [phone] Nicole Melendez RN Unavailable Unavailable Carine Viera RN Unavailable Unavailable Ronit Conner RN Unavailable Unavailable Armando Vieira ROPE SILICA MACHINE OPERATOR Unavailable Unavailable Vicki Amato RN Unavailable UnavailTrinh Soto SOLAR INSTALLER Unavailable [phone] Selina Olsen SOLAR INSTALLER Unavailable +[phone] Veda Mcfarland Clerical Staff Unavailable U Jacky Santoyo MD Unavailable +-3 Reason for Visit * Reason Comments Pharmacy Oncology Management Ribociclib Encounter Details Date Type Department Care Team (Latest Contact Info) Description 02/06/2025 Specialty Pharmacy [facility] [address] [place] [address] Shruthi Veras CPhT Pharmacy Oncology [...] Garza, RMA * Does this person have serious [...] Progress Notes * Shruthi Veras CPhT - 02/06/2025 9:20 AM EDT [facility] Refill Request Prescription for Ribociclib is out of refills. Will send a request to the provider and contact patient to coordinate refill once response is received. * Damaso Santos RPH - 02/06/2025 9:20 AM EDT [facility] Refill authorization received. Prescription does not require a prior authorization. Will contact patient for refill. * Shruthi Caruso CPhT - 02/06/2025 9:20 AM EDT Specialty Pharmacy Refill Coordination Note Contacted [address]len[address] today regarding refills of Ribociclib. Copay amount: $0.00 No answer, left voicemail to call [phone], option 4. Patient informed of copay. * Shruthi Veras CPhT - 02/06/2025 9:20 AM EDT Specialty Pharmacy Refill Coordination Note Contacted [address]len[address] today regarding refills of Ribociclib. Copay amount: $0 No answer, left voicemail to call [phone], option 4. * Shruthi Veras CPhT - 02/06/2025 9:20 AM EDT Specialty Pharmacy Refill Coordination Note Contacted [address]len[address] today regarding refills of Ribociclib. Medication to be delivered by FedEx on 02/13 to receive on 02/14. Copay amount: $0 Spoke with patient. Patient informed of copay. * Radha Trejo RPH - 02/06/2025 9:20 AM EDT [facility] - Care Plan and Refill Review Refill questions and refill history verified. Last assessment 01/14/25. No reassessment needed at this time. Radha Trejo RPH Specialty Pharmacist documented in this encounter Plan of Treatment Upcoming Encounters Date Type Department Care Team (Late st Contact Info) Description 03/24/2025 10:40 AM EDT Appointment [facility] [place] [address] Darío Rubio MD [address] [facility] [place] [address] 05/19/2025 1:00 PM EDT Appointment [facility] [place] [address] Olena Darby, YON [address] [facility] [place] [address] 05/22/2025 2:45 PM EDT Appointment [facility] [place], [place] [id number] Jacky Shirley MD 1 [facility] [place] [address] documented as of this encounter Goals Goal [...] documented as of this encounter Care Teams Putty Patcher Relationship Specialty Start Date End Date Damaso Black MD [address] [place] [address] PCP - General Family Medicine 11/22/22 Swapnil Lopez MD [address] [place] [address] Internal Medicine-Gastroenterolog y 02/16/22 Darío Rubio MD [address] [facility] [place] [address] Internal Medicine-Medical Oncology 12/11/23 Mya Naranjo MD [address] [facility] [place] [address] Family Medicine - Hospice And Palliative Medicine 01/04/24 Ashley Ordonez, SOLAR INSTALLER [address] [facility] [place] [address] Nurse Practitioner 01/04/24 Nicole Melendez, RN Registered Nurse 01/04/24 Carine Viera, RN Registered Nurse 02/07/24 Ronit Conner, RN Registered Nurse 04/10/24 Armando Vieira, ROPE SILICA MACHINE OPERATOR Supervisor [employer] 04/10/24 Vicki Amato, RN Registered Nurse 04/10/24 Trinh Bullock APRN [address] [facility] [place] [address] Nurse Practitioner Nurse Practitioner-Family 04/10/24 Selina Olsen APRN [address] [facility] [place] [address] Nurse Practitioner 04/10/24 Veda Mcfarland, Clerical Staff 05/14/24 Jacky Shirley MD 1 [facility] [place] [address] Radiation Oncologist Radiology-Radiation Oncology 11/12/24 documented as of this encounter
--- OUTSIDE RECORDS SUMMARY | 2025-03-17 13:35 | XMS_ITS | Encounter Summary ---
Author Organization [place] [address] Care Team Providers Care Chief Executive Or Managing Director Name Role Phone Swapnil Lopez MD Unavailable [phone] Damaso Black MD Primary Care Provider [phone] Daroí Rubio MD Unavailable [phone] Mya Naranjo MD Unavailable [phone] Ashley Ordonez LEARNING DESIGNER Unavailable [phone] Nicole Melendez RN Unavailable Unavailable Carine Viera RN Unavailable Unavailable Ronit Conner RN Unavailable Unavailable Armando Vieira ENERGY SALES BROKER Unavailable Unavailable Vicki Amato RN Unavailable UnavailTrinh Soto LEARNING DESIGNER Unavailable [phone] Selina Olsen LEARNING DESIGNER Unavailable +[phone] Veda Mcfarland Clerical Staff Unavailable U Jacky Santoyo MD Unavailable +-3 Encounter Details Date Type Department Care Team (Late st Contact Info) Description 01/12/2024 Lab Requisition [facility] [place] [address] Provider, Unknown Malignant neoplasm of [...] AM EDT Appointment [facility] Medical Oncology [place] [id number] Darío Rubio MD [address] [place] [address] [place] [address] 05/19/2025 1:00 PM EDT Appointment [facility] MRI [place], [place] [id number] Olena Darby APRN 1 [facility] [place] [address] 05/22/2025 2:45 PM EDT Appointment [facility] [place] [address] Jacky Shirley MD [address] [place] [address] [place] [address] documented as of this encounter Goals Goal [...] PM EDT) CASE REPORT Surgical Pathology Report Case: [id number] Authorizing Provider: Provider, Unknown Collected: 01/12/2024 1357 Ordering Location: [facility] Received: 01/12/2024 1358 Pathologist: Tika Mc MD Specimen: Breast, Left, Request for case [id number] slides to [facility] for Tumor Board 01/12/2024 2:07 PM EDT [facility] FINAL DIAGNOSIS Case sent for tumor board presentation. 01/12/2024 2:07 PM EDT [facility] at 1400 EDT EMBEDDED IMAGES 01/12/2024 2:07 PM EDT [facility] Tissue LEFT BREAST STRUCTURE / Unknown 01/12/2024 1:57 PM EDT 01/12/2024 1:58 PM EDT us Unknown Provider PATHOLOGY ORDERABLES Final Resu lt [facility] [address] [place] [address] documented in this encounter Visit Diagnoses Diagnosis Malignant neoplasm of unspecified site of left female breast (HCC) documented in this encounter Additional Health Concerns Assessment Noted Time PHQ-9 Depression Total Score: 13 024 1:47 PM EDT PHQ-2 Depression Total Score: 3 12/29/19 24 1:47 PM EDT documented as of this encounter Care Teams Chief Executive Or Managing Director Relationship Specialty Start Date End Date Damaso Black MD [address] [place] [address] PCP - General Family Medicine 11/22/22 Swapnil Lopez MD [address] [place] [address] Internal Medicine-Gastroenterolog y 02/16/22 Darío Rubio MD [address] [facility] [place] [address] Internal Medicine-Medical Oncology 12/11/23 Mya Naranjo MD [address] [place] [address] [place] [address] Family Medicine - Hospice And Palliative Medicine 01/04/24 Ashley Ordonez APRN [address] [place] [address] [place] [address] Nurse Practitioner 01/04/24 Nicole Melendez, RN Registered Nurse 01/04/24 Carine Viera, RN Registered Nurse 02/07/24 Ronit Conner, RN Registered Nurse 04/10/24 Armando Vieira MSW Cigar Packer 04/10/24 Vicki Amato, RN Registered Nurse 04/10/24 Trinh Bullock APRN [address] [facility] [place] [address] Nurse Practitioner Nurse Practitioner-Family 04/10/24 Selina Olsen APRN [address] [place] [address] Nurse Practitioner 04/10/24 Veda Mcfarland, Clerical Staff 05/14/24 Jacky Shirley MD 1 [facility] [place] [address] Radiation Oncologist Radiology-Radiation Oncology 11/12/24 documented as of this encounter
--- OUTSIDE RECORDS SUMMARY | 2025-03-17 13:35 | XMS_ITS | Clinical Summary ---
Author Organization [facility] Address [address] [place] [address] Phone Care Team Providers Care Spooling Machine Operator Name Role Phone Swapnil Lopez MD Unavailable [phone] Damaso Black MD Primary Care Provider [phone] Darío Rubio MD Unavailable [phone] Mya Naranjo MD Unavailable [phone] Ashley Ordonez FOXPRO DEVELOPER Unavailable [phone] Nicole Melendez RN Unavailable Unavailable Carine Viera RN Unavailable Unavailable Ronit Conner RN Unavailable Unavailable Armando Vieira DRILL BIT SHARPENER Unavailable Unavailable Vicki Amato RN Unavailable UnavailTrinh Soto [employer]PRO DEVELOPER Unavailable [phone] Selina Olsen [employer] DEVELOPER Unavailable [phone] Veda Mcfarland Clerical Staff Unavailable U Jacky Santoyo MD Unavailable [phone] Allergies Active Allergy Reactions Criticality Noted Date Comments Fat Phxtlocd-Lrydj-Jqz-Lipid Rash,Myalgia 04/15 Gynrr-Vpbao-9-Xus-Rdd-Znzwtx Hives 022 Sulfa (Sulfonamide Antibiotics) Medications triamcinolone (KENALOG) 0.1 % Top CreamIndications :Skin rash Apply topically 3 times daily. 80 g 4 Active acyclovir (ZOVIRAX) 800 mg Oral Tablet Take 1 tablet 5 times a day by oral route for 7 days. 09/04/202 4 Active ondansetron (ZOFRAN) 4 mg Oral Tablet Take 4 mg by mouth. 2 Active predniSONE (DELTASONE) 10 mg Oral Tablet Take 1 Tablet by mouth daily. 90 Tablet 3 4 Active Additional Information Patient not taking.Reason: Other, Reported on 01/14/2025 promethazine (PHENERGAN) 12.5 mg Oral Tablet Take 1 Tablet by mouth every 6 hours as needed for Nausea. 60 Tablet 5 4 Active traMADoL (ULTRAM) 50 mg Oral Tablet Take 50 mg by mouth every 4 hours as needed. for pain 4 Active anastrozole (ARIMIDEX) 1 mg Oral TabletIndication s:Invasive ductal carcinoma of breast, left (HCC) Take 1 Tablet by mouth daily. Take with or without food 30 Tablet 11 4 Active loperamide (IMODIUM) 2 mg Oral CapsuleIndicatio ns:Diarrhea, unspecified type Take 1 Capsule by mouth every 3 hours. 200 Capsule 5 Active loperamide (IMODIUM) 2 mg Oral Capsule Take 1 Capsule by mouth every 3 hours as needed for Diarrhea. 200 Capsule 1 5 Active diphenoxylate-at ropine (LOMOTIL) 2.5-0.025 mg Oral TabletIndication s:Crohn's disease of both small and large intestine without complication (HCC) TAKE TWO TABLETS BY MOUTH FOUR TIMES A DAY; MAX DAILY DOSE 8 TABLETS 240 Tablet 5 5 Active baclofen 5 mg Oral Tablet 5 Active methylPREDNISolo ne (MEDROL DOSPACK) 4 mg Oral Tablets, Dose PackIndications: Secondary malignant neoplasm of bone (HCC) Follow package directions. 1 Each 5 Active ribociclib (KISQALI) 400 mg/day (200 mg x 2) Oral TabletIndication s:Invasive ductal carcinoma of breast, left (HCC) Take 2 tablets by mouth daily for 21 days followed by 7 days off 42 Tablet 5 Active Active Problems Patient Care Coordination No te [...] from 11/13/2023:Stage IIA(cT2, cN1, cM0, G2, ER+, LA+, HER2-) - Signed by Ian Ruiz MD on 11/18/2023 De Quervain's tenosynovitis 03/24/2021 Overview (03/25/2021): Added automatically from request for surgery [id number] De Quervain thyroiditis 02/05/2021 Overview (02/05/2021): Added automatically from request for surgery [id number] De Quervain's tenosynovitis, left 02/05/2021 Overview (02/12/2021): Added automatically from request for surgery [id number] Ulcer of great toe, left, with necrosis [...] need to watch closely. Hope that terminal supervisor the ssri will help and will [...] Encounters Date Type Department Care Team Description 03/13/2025 Telephone [facility] [place] [address] Darío Rubio MD Orders (Lab orders to [facility]) 03/06/2025 Refill [facility] [place] [address] Darío Rubio MD Medication Refill 03/06/2025 Specialty Pharmacy [facility] [address] [place] [address] Loren Ramirez [facility] Oncology Management (Ribociclib) 02/06/2025 Refill [facility] [place] [address] Darío Rubio MD Medication Refill 02/06/2025 Specialty Pharmacy [facility] [address] [place] [address] Shruthi Veras [facility] Oncology Management (Ribociclib) 01/29/2025 2:37 PM EDT - 01/29/2025 11:59 PM EDT Hospital Encounter [facility] [place] [address] Darío Rubio MD Invasive ductal carcinoma of left breast, stage 4 (HCC) (Primary Dx); Encounter for chemotherapy management Discharge Disposition: Home or Self Care 01/23/2025 Travel 01/22/2025 Telephone [facility] [place] [address] Darío Rubio MD Results (Called [facility] patients lab results. ) 01/14/2025 Specialty Pharmacy [facility] [address] [place] [phone] Ce Samuels, [facility] Pharmacy Oncology Management; Pharmacy Reassessment (Kisqali) 01/10/2025 Refill [facility] [place] [address] Darío Rubio MD Medication Refill 01/10/2025 Specialty Pharmacy [facility] [address] [place] [phone] Shruthi Veras, [facility] Oncology Management (Ribociclib) 01/02/2025 Orders Only MD Adult Med [address] [place] [address] Jacky Shirley MD Secondary malignant neoplasm of bone (HCC) 12/30/2024 Telephone [facility] [place] [address] Darío Rubio MD Other (target therapy ) 12/26/2024 Telephone [facility] [place] [address] Darío Rubio MD Information Only (Recollect needed for [id number]) 12/25/2024 Telephone [facility] [place] [phone] Darío Rubio MD Orders (Labs at [facility] ) 12/24/2024 2:42 PM EDT - 12/24/2024 11:59 PM EDT Hospital Encounter [place] [address] Darío Rubio MD Carcinoma of left breast metastatic to bone (HCC) Discharge Disposition: Home or Self Care 12/24/2024 2:04 PM EDT - 12/24/2024 2:41 PM EDT Hospital Encounter [facility] [place] [phone] Darío Rubio MD Invasive ductal carcinoma of left breast, stage 4 (HCC) (Primary Dx); Encounter for chemotherapy management Discharge Disposition: Home or Self Care 12/24/2024 11:59 AM EDT - 12/24/2024 1:59 PM EDT Hospital Encounter [facility] [place] [address] Darío Rubio MD Blood tests prior to treatment or procedure (Primary Dx); Carcinoma of left breast metastatic to bone (HCC) Discharge Disposition: Home or Self Care 12/24/2024 Telephone [facility] [place] [address] Darío Rubio MD Results (Urgent: STAT PET Scan Results ) 12/20/2024 Orders Only [place] [address] Darío Rubio MD Carcinoma of left breast metastatic to bone (HCC) (Primary Dx) 12/19/2024 Orders Only [place] [address] Darío Rubio MD Carcinoma of left breast metastatic to bone (HCC) (Primary Dx) 12/18/2024 3:00 PM EDT - 12/18/2024 11:59 PM EDT Hospital Encounter [facility] [place], [place] [phone] Heather Quiroz MD Kurian, Matthew, MD Carcinoma of left breast metastatic to bone (HCC) (Primary Dx); Encounter for chemotherapy management Discharge Disposition: Home or Self Care 12/17/2024 Orders Only [facility] [place], [place] [phone] Darío Rubio MD Invasive ductal carcinoma of breast, left (HCC) (Primary Dx) from Last 3 Months Surgical History Surgery [...] MD; Location: [facility]; Service: Hand BREAST BIOPSY 10/26/2023 Left 2:00 BREAST BIOPSY 10/26/2023 Left axilla node Medical History Medical History Date Comments Crohn disease (HCC) Cancer (HCC) Anemia Encounter for blood transfusion Lab test positive for detect ion of COVID-19 virus 02/12/2021 02/16/21=pt stated that she t ested COVID positive on 02/12/[address] [facility], instructed pt to notify Dr Lantigua's [...] Sign Reading Time Taken Comments Blood Pressure 120/72 12/24/2024 2:17 PM EDT Pulse 83 12/24/2024 2:17 PM EDT Temperature 36.7 C (98.1 F) 12/24/2024 2:17 PM EDT Respiratory Rate 20 12/24/2024 2:17 PM EDT Oxygen Saturation 100% 12/24/2024 2:17 PM EDT Inhaled Oxygen Concentration - - Weight 62.1 kg (137 lb) 12/24/2024 2:17 PM EDT Height 157.5 cm (5' 2 ) 12/24/2024 2:17 PM EDT Body Mass Index 25.06 12/24/2024 2:17 PM EDT Plan of Treatment Upcoming Encounters Date Type Department Care Team (Late st Contact Info) Description 03/24/2025 10:40 AM EDT Appointment [facility] [place] [address] Darío Rubio MD [address] [place] [address] 05/19/2025 1:00 PM EDT Appointment [facility] [place] [address] Olena Darby APRN [address] [place] [address] [place] [address] 05/22/2025 2:45 PM EDT Appointment [facility] [place] [phone] Jacky Shirley MD [address] [place] [address] [place] [address] Health Maintenance Due Date Last Done Comments Annual Wellness Exam 1964 COVID-19 Vaccine (#1) 1966 DTaP/TDaP/Td (1 - Tdap) 1980 Pneumococcal Vaccine 50+ (1 of 2 - PCV) 1980 Zoster (1 of 2) 1980 Cervical Cancer Screening 1982 Pap Smear 1982 HPV/Pap Cotest 1991 Cologuard 2006 FIT 2006 Sigmoidoscopy 2006 Virtual Colonography 2006 Influenza Vaccine (Season Ended) 2025 07/25/2017 (Declined) Breast Cancer Screening 10/12/2025 10/12/2023 Colon Cancer Screening 12/05/2029 Colonoscopy 12/05/2029 12/06/2019 Hepatitis C Screening Completed 12/26/2019 Hepatitis B Vaccine Aged Out No longe r eligible based on patient's age to complete this topic Meningococcal B Vaccine Aged Out No l onger eligible based on patient's age to complete this topic Goals Goal Patient Goal Type Associated Problems Recent Progress Patient-Stated? Author Breast [facility] Breast Health Mary Kate Vázquez, RN Note: Patient acknowledges understanding of new diagnosis, plan of care, available resources and how to contact Nurse Navigator with any future questions or concerns. Maintain a healthy diet, exercise regularly and maintain an ideal body weight General No Linda Walden, A Procedures Procedure Name Priority Date/Time Associated Diagnosis Comments CREATININE ISTAT Routine 03/07/2025 3:29 PM EDT COMPREHENSIVE METABOLIC PANEL STAT 12/24/2024 2:52 PM EDT Carcinoma of left breast metastatic to bone (HCC) CBC WITH DIFF STAT 12/24/2024 2:52 PM EDT Carcinoma of left breast metastatic to bone (HCC) MISCELLANEOUS LAB Routine 12/24/2024 2:5 2 PM EDT Carcinoma of left breast metastatic to bone (HCC) PET CT SKULL BASE TO MID THIGH STAT 12/24/2024 1:27 PM EDT Carcinoma of left breast metastatic to bone (HCC) GLUCOSE METER POC Routine 12/24/2024 12: 03 PM EDT MM MAMMO DIGITAL DANIELA DIAGN BILAT Routine 10/12/2023 12:47 PM EST Lump in female breast HCV ANTIBODY SCREEN W/ REFLEX Callback 12/26/2019 3:31 PM EDT Gastroesophageal reflux disease, esophagitis presence not specified Crohn's disease of small and large intestines with complication (HCC) from Last 3 Months or Most Recently Relevant to Health Maintenance Results * CREATININE ISTAT (03/07/2025 3:29 PM EDT) [facility] Creatinine-iST AT 1.1 0.6 - 1.3 mg/dL 03/07/2025 3:30 PM EDT [facility] Blood BLOOD SPECIMEN / Unknown 03/07/2025 3:29 PM EDT 03/07/2025 3:30 PM EDT Darío Rubio MD POINT OF CARE TEST ORDERABLES Final Result Performing Organization Address City/[facility]/ZIP Co de Phone Number [address] [phone] * MISCELLANEOUS LAB (12/24/2024 2:52 PM EDT) [facility] COMMENT See Scanned Image 12/24/2024 3:28 PM EDT [facility] Blood VENOUS BLOOD / Unknown Venipuncture / Unknown 12/24/2024 2:52 PM EDT 12/24/2024 2:52 PM EDT Narrative [facility] - 12/24/2024 3:28 PM EDT [employer] [id number] Darío Rubio MD HEMATOLOGY ORDERABLES Final Re sult [facility] [address] [place] [address] * (ABNORMAL) CBC WITH DIFF (12/24/2024 2:52 PM EDT) [facility] WBC 7.8 3.7 - 10.3 x10(3)/mcL 12/24/2024 3:00 PM EDT [facility] RBC 4.42 3.90 - 5.20 x10(6)/mcL 12/24/2024 3:00 PM EDT [facility] Hgb 13.2 11.2 - 15.7 g/dL 12/24/2024 3:00 PM EDT [facility] Hct 40.8 34.0 - 45.0 % 12/24/2024 3:00 PM EDT [facility] MCV 92.3 80.0 - 100.0 fL 12/24/2024 3:00 PM EDT [facility] MCH 29.9 26.0 - 34.0 pg 12/24/2024 3:00 PM EDT [facility] MCHC 32.4 30.7 - 35.5 g/dL 12/24/2024 3:00 PM EDT [facility] RDW 14.2 <=14.9 % 12/24/2024 3:00 PM EDT [facility] Platelet 265 155 - 369 x10(3)/[facility] 12/24/2024 3:00 PM EDT [facility] MPV 8.5(L) 8.8 - 12.5 fL 12/24/2024 3:00 PM EDT [facility] Neut # Prelim 6.5(H) 1.6 - 6.1 x10(3)/mcL 12/24/2024 3:00 PM EDT [facility] Comment:Preliminary automate d absolute neutrophil count. Value may change if manual differential is indicated. Neut Percent 83.6 % 12/24/2024 3:00 PM EDT [facility] Comment:Neutrophils equals s egs plus bands Imm Gran% 0.9 % 12/24/2024 3:00 PM EDT [facility] Comment:Automated count of m etamyelocytes, myelocytes and promyelocytes. Lymph Percent 11.1 % 12/24/2024 3:00 PM EDT [facility] [place] Percent 4.0 % 12/24/2024 3:00 PM EDT [facility] Eos Percent 0.1 % 12/24/2024 3:00 PM EDT [facility] Baso Percent 0.3 % 12/24/2024 3:00 PM EDT [facility] Neut # 6.5(H) 1.6 - 6.1 x10(3)/[facility] 12/24/2024 3:00 PM EDT [facility] Comment:Neutrophils equals s egs plus bands IMMGRAN# 0.1 0.0 - 0.1 x10(3)/mcL 12/24/2024 3:00 PM EDT [facility] Comment:Automated count of m etamyelocytes, myelocytes and promyelocytes. An absolute IG <0.1 is reported as 0.0. Lymph # 0.9(L) 1.2 - 3.9 x10(3)/mcL 12/24/2024 3:00 PM EDT [facility] [place] # 0.3 0.3 - 0.9 x10(3)/[facility] 12/24/2024 3:00 PM EDT [facility] Eos# 0.0 0.0 - 0.5 x10(3)/[facility] 12/24/2024 3:00 PM EDT [facility] Baso # 0.0 0.0 - 0.1 x10(3)/[facility] 12/24/2024 3:00 PM EDT [facility] Blood VENOUS BLOOD / Unknown Venipuncture / Unknown 12/24/2024 2:52 PM EDT 12/24/2024 2:52 PM EDT us Darío Rubio MD HEMATOLOGY ORDERABLES Final Re sult [facility] [address] [place] [address] * (ABNORMAL) COMPREHENSIVE METABOLIC PANEL (12/24/2024 2:52 PM EDT) Sodium 140 136 - 145 mmol/L 12/24/2024 3:13 PM EDT [facility] Potassium 4.0 3.5 - 5.0 mmol/L 12/24/2024 3:13 PM [facility] Chloride 104 98 - 107 mmol/L 12/24/2024 3:13 PM [facility] Total CO2 26 22 - 29 mmol/L 12/24/2024 3:13 PM [facility] Anion Gap 10 7 - 16 mmol/L 12/24/2024 3:13 PM [facility] Calcium 9.4 8.8 - 10.4 mg/dL 12/24/2024 3:13 PM [facility] Glucose Lvl 138(H) 70 - 99 mg/dL 12/24/2024 3:13 PM [facility] BUN 16 8 - 23 mg/dL 12/24/2024 3:13 PM [facility] Creatinine 0.91 0.51 - 1.30 mg/dL 12/24/2024 3:13 PM [facility] Albumin 4.1 3.2 - 4.6 gm/dL 12/24/2024 3:13 PM [facility] Total Protein 7.1 6.4 - 8.3 gm/dL 12/24/2024 3:13 PM [facility] Bili Total <0.2(L) 0.2 - 1.3 mg/dL 12/24/2024 3:13 PM [facility] ALT 9 <=41 U/L 12/24/2024 3:13 PM [facility] AST 15 <=40 U/L 12/24/2024 3:13 PM [facility] Alk Phos 82 36 - 123 U/L 12/24/2024 3:13 PM [facility] eGFR (CKD-EPIcr 2020) 71 >=60 mL/min/1.7 3 m2 12/24/2024 3:13 PM [facility] Comment:Estimated GFR was ca lculated using the CKD-EPIcr (2020) equation refit without race. The equation is recommended by the [employer] - [place] [employer]ph[employer] Task Force. Blood VENOUS BLOOD / Unknown Venipuncture / Unknown 12/24/2024 2:52 PM EDT 12/24/2024 2:52 PM EDT us Darío Rubio MD CHEMISTRY ORDERABLES Final Res ult [facility] [address] [place] [address] * PET CT SKULL BASE TO MID THIGH (12/24/2024 1:27 PM EDT) Anatomical Region Laterality Modality Positron Emissio n Tomography (PET) 12/24/2024 1:27 PM EDT Impressions 12/24/2024 1:59 PM EDT prior study. IMPRESSION: Significant decrease in size and uptake in left axillary lymph nodes. Focal area of uptake in the superior left pubic ramus has increased in intensity. No new areas of abnormal uptake identified. - Note: Radiology results need to be interpreted within a comprehensive clinical context. If you have questions about the radiology report, please contact the office of the ordering clinician. Narrative 12/24/2024 1:[address] SKULL BASE TO MID THIGH, 12/24/2024 1:27 PM CLINICAL HISTORY: C50.912-Malignant neoplasm of unspecified site of left female veebfs-NAR-91-CM C79.51-Secondary malignant neoplasm of fznk-GOU-57-CM. COMPARISON: 11/23/2023 PROCEDURE COMMENTS: 13.2 mCi 18F-fluorodeoxyglucose (FDG) was administered I.V. Serum blood glucose at the time of the injection was 96 mg/dL. Uptake time was approximately 50 minutes. Scanning performed from the skull vertex to the mid thigh. As an integrated part of the study, noncontrast CT scanning performed for attenuation correction and localization purposes.Dose 1 : CT DLP Total : 195.8 mGycm DLP Spiral Max : 188.44 mGycm Maximum CTDI Vol : 1.93 mGy FINDINGS: Normal distribution of physiologic background activity was present including gastrointestinal, genitourinary, cardiovascular, neurologic systems. Index activity in the right lobe of the liver was 3.3 SUV max. Head and Neck: No hypermetabolic foci. Chest: There is focal uptake in left axillary lymph nodes however which is much less than on the prior study. Most superior left axillary lymph node measures SUV value of 2.7. Previously 8.5. Faint uptake in a left retropectoral lymph node SUV 2.0. Previously 5.8. Largest left axillary lymph node more inferior location measures SUV of 2.5. Previously 8.5. Otherwise no abnormal chest uptake. Abdomen and pelvis: There is a focal area of Y-shaped linear uptake extending from the anus to the left gluteal region and along the left aspect of the intergluteal cleft.. 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 Musculoskeletal: Focal area of intense uptake in the superior left pubic ramus SUV 8.5. Previous SUV this region 6.4. Notable CT findings: Significant decrease in size of left axillary lymph nodes. Previous left retropectoral node measuring 11 mm. This is no longer visualized. Previous left axillary lymph node more superior in location measured 23 mm. Now it measures 12 mm. Larger lymph node more inferiorly measured 20 mm now measures 14 mm. Lytic region in the superior left pubic ramus unchanged in appearance since Procedure Note Eliazar Shell III, MD - 12/24/[address] SKULL BASE TO MID THIGH, 12/24/2024 1:27 PM CLINICAL HISTORY: C50.912-Malignant neoplasm of unspecified site of leftfemale fesuxw-BBN-74-CM C79.51-Secondary malignant neoplasm of mmlt-SDY-53-CM. COMPARISON: 11/23/2023 PROCEDURE COMMENTS: 13.2 mCi 18F-fluorodeoxyglucose (FDG) was administeredI.V. Serum blood glucose at the time of the injection was 96 mg/dL. Uptake timewas approximately 50 minutes. Scanning performed from the skull vertex to themid thigh. As an integrated part of the study, noncontrast CT scanningperformed for attenuation correction and localization purposes.Dose 1 : CT DLP Total : 195.8 mGycm DLP Spiral Max : 188.44 mGycm Maximum CTDI Vol : 1.93 mGy FINDINGS: Normal distribution of physiologic background activity waspresent including gastrointestinal, genitourinary, cardiovascular, neurologicsystems. Index activity in the right lobe of the liver was 3.3 SUV max. Head and Neck: No hypermetabolic foci. Chest: There is focal uptake in left axillary lymph nodes however whichis much less than on the prior study. Most superior left axillary lymph nodemeasures SUV value of 2.7. Previously 8.5. Faint uptake in a left retropectorallymph node SUV 2.0. Previously 5.8. Largest left axillary lymph node moreinferior location measures SUV of 2.5. Previously 8.5. Otherwise no abnormalchest uptake. Abdomen and pelvis: There is a focal area of Y-shaped linear uptakeextending from the anus to the left gluteal region and along the left aspect ofthe intergluteal cleft.. Also present prior study suspect for a perianalfistula with inflammation. Musculoskeletal: Focal area of intense uptake in the superior left pubicramus SUV 8.5. Previous SUV this region 6.4. Notable CT findings: Significant decrease in size of left axillary lymphnodes. Previous left retropectoral node measuring 11 mm. This is no longervisualized. Previous left axillary lymph node more superior in location measured 23mm. Now it measures 12 mm. Larger lymph node more inferiorly measured 20 mm nowmeasures 14 mm. Lytic region in the superior left pubic ramus unchanged in appearancesince IMPRESSION: prior study. IMPRESSION: Significant decrease in size and uptake in left axillary lymph nodes.Focal area of uptake in the superior left pubic ramus has increased in intensity. Nonew areas of abnormal uptake identified. - Note: Radiology results need to be interpreted within a comprehensiveclinical context. If you have questions about the radiology report, please contactthe office of the ordering clinician. Darío Rubio MD [facility] PET ORDERABLES Final Resul t * GLUCOSE METER POC (12/24/2024 12:03 PM EDT) [facility] Glucose Meter POC 96 70 - 100 mg/dL 12/24/2024 12:05 PM EDT [facility] Sample Type Capillary 12/24/2024 12:05 PM EDT [facility] Patient Status Non-Critical Patient 12/24/2024 12:05 PM EDT [facility] Blood BLOOD SPECIMEN / Unknown 12/24/2024 12:03 PM EDT 12/24/2024 12:05 PM EDT us Darío Rubio MD POINT OF CARE TEST ORDERABLES Final Result [facility] [address] [address] * MM MAMMO DIGITAL DANIELA DIAGN BILAT (10/12/2023 12:47 PM EST) Anatomical Region Laterality Modality Breast Bilateral Mammography 10/12/2023 2:37 PM EST Impressions 10/12/2023 2:37 PM EST Incomplete-need additional imaging evaluation ([id number]) Suspicious left breast mass and axillary adenopathy. [...] the next mammogram, in accordance with the [place] [employer] and the Society of Breast Imaging recommendations. Narrative 10/12/2023 2:37 PM EST Procedure:MM MAMMO DIGITAL DANIELA DIAGN BILAT ~ Reason for exam: clinical finding. N63.0-Unspecified lump in unspecified ysdnsl-JPJ-03-CM ~ MM MAMMO DIGITAL DANIELA DIAGN BILAT [...] exam: clinical finding. N63.0-Unspecified lump in unspecified jcyiwq-AIJ-31-CM ~ MM MAMMO DIGITAL DANIELA DIAGN BILAT Bilateral CC and MLO view(s) were taken. There are scattered fibroglandular densities. 2:00 left breast is an approximate 2.5 cm spiculated mass containing some pleomorphic calcifications and several long spicules extending for severalcentimeters. In addition, there are multiple enlarged left axillary nodes, largest2.6 cm. Right breast unremarkable. ~ IMPRESSION: Incomplete-need additional imaging evaluation (JEY-Bapkqxol-4) Suspicious left breast mass and axillary adenopathy. [...] the next mammogram, in accordance with the [place] [employer] and the Society of Breast Imaging recommendations. Slava LAZAR IM MAMMOGRAPHY ORDERABLES Final Result * HEPATITIS C ANTIBODY - SCREENING (12/26/2019 3:31 PM EDT) Hep C Ab Non-Reactiv e Non-Reacti ve 12/26/2019 5:41 PM EDT [facility] Blood VENOUS BLOOD / Unknown Venipuncture / Unknown 12/26/2019 3:31 PM EDT 12/26/2019 3:31 PM EDT Swapnil Lopez MD HEMATOLOGY ORDERABLES Final Re sult [facility] [address] [facility] , [place] [address] from Last 3 Months or Most Recently Relevant to Health Maintenance Insurance [facility] Advance Directives For more information, please contact: [phone] Documents on File Type Date Recorded 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 10/31/2023 6:18 PM DPOA 04/24/2023 * Full Code (Latest Code Status on File) Date Activated Date Inactivated Comments 04/03/2015 2:11 PM 04/03/2015 10:26 PM Care Teams Spooling Machine Operator Relationship Specialty Start Date End Date Damaso Black MD [address] [place] [address] PCP - General Family Medicine 11/22/22 Swapnil Lopez MD [address] [place] [address] Internal Medicine-Gastroenterolog y 02/16/22 Darío Rubio MD [address] [facility] [place] [address] Internal Medicine-Medical Oncology 12/11/23 Mya Naranjo MD [address] [facility] [place] [place] [address] Family Medicine - Hospice And Palliative Medicine 01/04/24 Ashley Ordonez, YON [address] [facility] [place] [address] Nurse Practitioner 01/04/24 Nicole Melendez, RN Registered Nurse 01/04/24 Carine Viera, RN Registered Nurse 02/07/24 Ronit Conner, RN Registered Nurse 04/10/24 Armando Vieira, DRILL BIT SHARPENER Exercise Science Internship 04/10/24 Vicki Amato, RN Registered Nurse 04/10/24 Trinh Bullock APRN [address] [facility] [place] [address] Nurse Practitioner Nurse Practitioner-Family 04/10/24 Selina Olsen APRN [address] [facility] [address] [place] [id number] Nurse Practitioner 04/10/24 Veda Mcfarland, Clerical Staff 05/14/24 Jacky Shirley MD 1 [facility] [place] [id number] Radiation Oncologist Radiology-Radiation Oncology 11/12/24
--- OUTSIDE RECORDS SUMMARY | 2025-03-17 13:35 | XMS_ITS | Encounter Summary ---
Author Organization [place] [address] Care Team Providers Care Physical Education Department Chair Name Role Phone Swapnil Lopez MD Unavailable [phone] Damaso Black MD Primary Care Provider [phone] Darío Rubio MD Unavailable [phone] Mya Naranjo MD Unavailable [phone] Ashley Ordonez FORENSIC COMPUTER EXAMINER Unavailable [phone] Nicole Melendez RN Unavailable Unavailable Carine Viera RN Unavailable Unavailable Ronit Conner RN Unavailable Unavailable Armando Vieira FURNACE HAND Unavailable Unavailable Vicki Amato RN Unavailable UnavailTrinh Soto FORENSIC COMPUTER EXAMINER Unavailable +[phone] Selina Olsen FORENSIC COMPUTER EXAMINER Unavailable +[phone] Veda Mcfarland Clerical Staff Unavailable U Jacky Santoyo MD Unavailable +-3 Reason for Visit * Reason Comments Medication Refill Encounter Details Date Type Department Care Team (Late st Contact Info) Description 02/06/2025 Refill [facility] [place] [address] Darío Rubio MD [address] [place] [address] Medication Refill Social History Tobacco Use [...] followed by 7 days off 42 Tablet 02/13/2025 9:41 AM EDT 02/06/2025 documented in this encounter Miscellaneous Notes * Telephone Encounter - Carine Viera RN - 02/06/2025 9:23 AM EDT Received refill request for kisqali for pt. Reviewed chart; pt has f/u appt on 03/04/2025. Last RX was sent on 01/10/2025 with 0 refills, so refill is appropriate. Last office note on 01/29/2025 states: Continue AI + kisqali 400 mg daily (days 1-14, off 7 days after). Escript for kisqali sent to pt'spharmacy. documented in this encounter Plan of Treatment Upcoming Encounters Date Type Department Care Team (Late st Contact Info) Description 03/24/2025 10:40 AM EDT Appointment [facility] [place] [address] Darío Rubio MD 1 [facility] [place] [address] 05/19/2025 1:00 PM EDT Appointment [facility] [place] [address] Olena Darby APRN 1 [facility] [address] 05/22/2025 2:45 PM EDT Appointment [facility] [place] [address] Jacky Shirley MD 1 [facility] [place] [address] documented as of this encounter Goals Goal [...] days followed by 7 days off Reorder 01/10/2025 02/06/2025 documented as of this encounter Additional Health Concerns Assessment Noted Time PHQ-9 Depression Total Score: 13 024 1:47 PM EDT PHQ-2 Depression Total Score: 3 12/29/19 24 1:47 PM EDT documented as of this encounter Care Teams Physical Education Department Chair Relationship Specialty Start Date End Date Damaso Black MD [address] [place] [address] PCP - General Family Medicine 11/22/22 Swapnil Lopez MD [address] [place] [address] Internal Medicine-Gastroenterolog y 02/16/22 Darío Rubio MD [address] [place] [address] [place] [id number] Internal Medicine-Medical Oncology 12/11/23 Mya Naranjo MD [address] [place] [address] [place] [address] Family Medicine - Hospice And Palliative Medicine 01/04/24 Ashley Ordonez APRN [address] [place] [address] [place] [address] Nurse Practitioner 01/04/24 Nicole Melendez, RN Registered Nurse 01/04/24 Carine Viera, RN Registered Nurse 02/07/24 Ronit Conner, ANGE Registered Nurse 04/10/24 Armando Vieira MSW Regional Economist 04/10/24 Vicki Amato, RN Registered Nurse 04/10/24 Trinh Bullock APRN [address] [place] [address] [place] [address] Nurse Practitioner Nurse Practitioner-Family 04/10/24 Selina Olsen APRN [address] [place] [address] Nurse Practitioner 04/10/24 Veda Mcfarland, Clerical Staff 05/14/24 Jacky Shirley MD 1 [facility] [place] [address] Radiation Oncologist Radiology-Radiation Oncology 11/12/24 documented as of this encounter
--- OUTSIDE RECORDS SUMMARY | 2025-03-17 13:35 | XMS_ITS | Encounter Summary ---
Author Organization [place] [address] Care Team Providers Care Receiving Worker Name Role Phone Swapnil Lopez MD Unavailable [phone] Damaso Black MD Primary Care Provider [phone] Darío Rubio MD Unavailable [phone] Mya Naranjo MD Unavailable [phone] Ashley Ordonez CONTROL SYSTEMS DESIGNER Unavailable +[phone] Nicole Melendez RN Unavailable Unavailable Carine Viera RN Unavailable Unavailable Ronit Conner RN Unavailable Unavailable Armando Vieira BOBBIN WINDER TENDER Unavailable Unavailable Vicki Amato RN Unavailable UnavailTrinh Soto CONTROL SYSTEMS DESIGNER Unavailable [phone] Selina Olsen CONTROL SYSTEMS DESIGNER Unavailable +[phone] Veda Mcfarland Clerical Staff Unavailable U Jacky Santoyo MD Unavailable +-3 Reason for Visit * Reason Comments Pharmacy Oncology Management Ribociclib Encounter Details Date Type Department Care Team (Latest Contact Info) Description 03/06/2025 Specialty Pharmacy [facility] [address] [place] [address] Loren Ramirez CPhT Pharmacy Oncology Management (Ribociclib) Social History [...] documented in this encounter Progress Notes * Loren Ramirez CPhT - 03/06/2025 9:58 AM EDT [facility] Refill Request Prescription for Ribociclib is out of refills. Will send a request to the provider and contact patient to coordinate refill once response is received. * Arabella Camarena RPH - 03/06/2025 9:58 AM EDT [facility] Refill authorization received. Prescription does not require a prior authorization. Will contact patient for refill. * Loren Ramirez CPhT - 03/06/2025 9:58 AM EDT Specialty Pharmacy Refill Coordination Note Contacted [address] today regarding refills of Ribociclib. Copay amount: $0 No answer, left voicemail to call [phone], option 4. * Loren Ramirez CPhT - 03/06/2025 9:58 AM EDT Specialty Pharmacy Refill Coordination Note Contacted [address]len[address] today regarding refills of Ribociclib . Copay amount: $0 No answer, left voicemail to call [phone], option 4. * Loren Ramirez CPhT - 03/06/2025 9:58 AM EDT Specialty Pharmacy Refill Coordination Note Contacted [address]len[address] today regarding refills of Ribociclib . Copay amount: $0 Sent Butlr message. Patient informed of copay. * Shruthi Caruso CPhT - 03/06/2025 9:58 AM EDT Specialty Pharmacy Refill Coordination Note Contacted [address]len[address] today regarding refills of Ribociclib. Copay amount: $0.00 No answer, left voicemail to call [phone], option 4. Patient informed of copay. documented in this encounter Plan of Treatment Upcoming Encounters Date Type Department Care Team (Late st Contact Info) Description 03/24/2025 10:40 AM EDT Appointment [facility] [place] [address] Darío Rubio MD 1 [facility] [place] [address] 05/19/2025 1:00 PM EDT Appointment [facility] [place] [address] Olena Darby, CONTROL SYSTEMS DESIGNER 1 [facility] [place] [address] 05/22/2025 2:45 PM EDT Appointment [facility] [address] Jacky Shirley MD 1 [place] [address] documented as of this encounter Goals Goal [...] documented as of this encounter Care Teams Receiving Worker Relationship Specialty Start Date End Date Damaso Black MD [address] [place] [address] PCP - General Family Medicine 11/22/22 Swapnil Lopez MD [address] [place] [address] Internal Medicine-Gastroenterolog y 02/16/22 Darío Rubio MD [address] [facility] [address] [place], [place] [address] Internal Medicine-Medical Oncology 12/11/23 Mya Naranjo MD [address] [place] [address] Family Medicine - Hospice And Palliative Medicine 01/04/24 Ashley Ordonez, CONTROL SYSTEMS DESIGNER [address] [place] [address] Nurse Practitioner 01/04/24 Nicole Melendez, RN Registered Nurse 01/04/24 Carine Viera, RN Registered Nurse 02/07/24 Ronit Conner, RN Registered Nurse 04/10/24 Armando Vieira MSW Hydraulic Jack Adjuster 04/10/24 Vicki Amato, RN Registered Nurse 04/10/24 Trinh Bullock, CONTROL SYSTEMS DESIGNER [address] [place] [address] Nurse Practitioner Nurse Practitioner-Family 04/10/24 Selina Olsen, YON [address] [place] [address] Nurse Practitioner 04/10/24 Veda Mcfarland, Clerical Staff 05/14/24 Jacky Shirley MD 1 [facility] [place] [address] Radiation Oncologist Radiology-Radiation Oncology 11/12/24 documented as of this encounter
--- OUTSIDE RECORDS SUMMARY | 2025-03-17 13:35 | XMS_ITS | Encounter Summary ---
Author Organization [facility] [place] [address] Care Team Providers Care Senior Oracle Applications Developer Name Role Phone Swapnil Lopez MD Unavailable [phone] Damaso Black MD Primary Care Provider [phone] Darío Rubio MD Unavailable [phone] Mya Naranjo MD Unavailable [phone] Ashley Ordonez SHELL MOLDER Unavailable +[phone] Nicole Melendez RN Unavailable Unavailable Carine Viera RN Unavailable Unavailable Ronit Conner RN Unavailable Unavailable Armando Vieira PET TRAINER Unavailable Unavailable Vicki Amato RN Unavailable UnavailTrinh Soto SHELL MOLDER Unavailable +[phone] Selina Olsen SHELL MOLDER Unavailable + Veda Mcfarland Clerical Staff Unavailable U [facility] Jacky Shirley MD Unavailable +-3 Encounter Details Date Type Department Care Team (Latest Contact Info) Description 01/23/2025 Travel Social History Tobacco Use Types Packs/Day [...] AM EDT Appointment [facility] [place] [address] Darío Rubio MD 1 [facility] [address] 05/19/2025 1:00 PM EDT Appointment [facility] [place] [address] Olena Darby APRN 1 [facility] [place] [address] 05/22/2025 2:45 PM EDT Appointment [place] [address] Jcaky Shirley MD 1 [facility] [place] [address] documented as of this encounter Goals Goal [...] as of this encounter Care Teams Senior Oracle Applications Developer Relationship Specialty Start Date End Date Damaso Black MD [address] [place] [address] PCP - General Family Medicine 11/22/22 Swapnil Lopez MD [address] [place] [address] Internal Medicine-Gastroenterolog y 02/16/22 Darío Rubio MD [address] [place] [address] [place] [address] Internal Medicine-Medical Oncology 12/11/23 Mya Naranjo MD [address] [place] [address] [place] [address] Family Medicine - Hospice And Palliative Medicine 01/04/24 Ashley Ordonez APRN [address] [place] [address] [place] [address] Nurse Practitioner 01/04/24 Nicole Melendez, RN Registered Nurse 01/04/24 Carine Viera, ANGE Registered Nurse 02/07/24 Ronit Conner, RN Registered Nurse 04/10/24 Armando Vieira MSW Riveting Machine Operator 04/10/24 Vicki Amato, RN Registered Nurse 04/10/24 Trinh Bullock APRN 1 [place] [address] Nurse Practitioner Nurse Practitioner-Family 04/10/24 Selina Olsen APRN 1 [facility] [address] Nurse Practitioner 04/10/24 Veda Mcfarland, Clerical Staff 05/14/24 Jacky Shirley MD 1 [place] [address] Radiation Oncologist Radiology-Radiation Oncology 11/12/24 documented as of this encounter
--- OUTSIDE RECORDS SUMMARY | 2025-03-17 13:35 | XMS_ITS | Encounter Summary ---
Author Organization [place] [address] Care Team Providers Care Product Manager Financial Services Name Role Phone Swapnil Lopez MD Unavailable [phone] Damaso Black MD Primary Care Provider [phone] Darío Rubio MD Unavailable [phone] Mya Naranjo MD Unavailable [phone] Ashley Ordonez CIRCULATING NURSE Unavailable +[phone] Nicole Melendez RN Unavailable Unavailable Carine Viera RN Unavailable Unavailable Ronit Conner RN Unavailable Unavailable Armando Vieira HEADER MACHINE OPERATOR Unavailable Unavailable Vicki Amato RN Unavailable UnavailTrinh Soto CIRCULATING NURSE Unavailable +[phone] Selina Olsen CIRCULATING NURSE Unavailable [phone] Veda Mcfarland Clerical Staff Unavailable U Jacky Santoyo MD Unavailable +-3 Reason for Visit * Reason Onset Date Comments Results 01/22/2025 Called [facility] for patients lab results. Encounter Details Date Type Department Care Team (Late st Contact Info) Description 01/22/2025 Telephone [facility] [place] [address] Darío Rubio MD [address] [place] [address] Results (Called [facility] for patients lab results. ) Social History Tobacco Use Types Packs/Day [...] encounter Miscellaneous Notes * Telephone Encounter - Loren Wild MA - 01/22/2025 3:07 PM EDT [facility] video visit with Dr. Rubio on January 28, 2025 documented in this encounter Plan of Treatment Upcoming Encounters Date Type Department Care Team (Late st Contact Info) Description 03/24/2025 10:40 AM EDT Appointment [facility] [place] [address] Darío Rubio MD 1 [place] [address] 05/19/2025 1:00 PM EDT Appointment [facility] [place] [address] Olena Darby APRN 1 [facility] [place] [address] 05/22/2025 2:45 PM EDT Appointment [facility] [place] [address] Jacky Shirley MD 1 [facility]CER [facility] [place], [place] [id number] documented as of this encounter Goals Goal [...] documented as of this encounter Care Teams Product Manager Financial Services Relationship Specialty Start Date End Date Damaso Black MD [address] [place] [address] PCP - General Family Medicine 11/22/22 Swapnil Lopez MD [address] [place] [address] Internal Medicine-Gastroenterolog y 02/16/22 Darío Rubio MD [address] [facility] [place] [address] Internal Medicine-Medical Oncology 12/11/23 Mya Naranjo MD [address] [facility] [place] [place] [address] Family Medicine - Hospice And Palliative Medicine 01/04/24 Ashley Ordonez, CIRCULATING NURSE [address] [facility] [address] [place] [id number] Nurse Practitioner 01/04/24 Nicole Melendez, RN Registered Nurse 01/04/24 Carine Viera, RN Registered Nurse 02/07/24 Ronit Conner, RN Registered Nurse 04/10/24 Armando Vieira MSW Supervisor Agency Appointments 04/10/24 Vicki Amato, RN Registered Nurse 04/10/24 Trinh Bullock APRN [address] [facility] [place] [address] Nurse Practitioner Nurse Practitioner-Family 04/10/24 Selina Olsen APRN [address] [place] [address] [place] [address] Nurse Practitioner 04/10/24 Veda Mcfarland, Clerical Staff 05/14/24 Jacky Shirley MD 1 [facility] [place] [address] Radiation Oncologist Radiology-Radiation Oncology 11/12/24 documented as of this encounter
--- OUTSIDE RECORDS SUMMARY | 2025-03-17 13:35 | XMS_ITS | Encounter Summary ---
Author Organization [place] [address] Care Team Providers Care Library Monitor Name Role Phone Swapnil Lopez MD Unavailable [phone] Damaso Black MD Primary Care Provider [phone] Darío Rubio MD Unavailable Mya Naranjo MD Unavailable [phone] Ashley Ordonez PACKER SAUSAGE AND WIENER Unavailable [phone] Nicole Melendez RN Unavailable Unavailable Carine Viera RN Unavailable Unavailable Ronit Conner RN Unavailable Unavailable Armando Vieira APPRENTICE Unavailable Unavailable Vicki Amato RN Unavailable UnavailTrinh Soto PACKER SAUSAGE AND WIENER Unavailable [phone] Selina Olsen PACKER SAUSAGE AND WIENER Unavailable [phone] Veda Mcfarland Clerical Staff Unavailable U Jacky Santoyo MD Unavailable [phone] Encounter Details Date Type Department Care Team (Late st Contact Info) Description 01/06/2024 Refphilip [facility] Adult Med [address] [place], [place] [address] Arabella Raya MD [address] [place], [place] [id number] Social History Tobacco Use Types Packs/Day Years [...] 10 tablets per day 100 Tablet 01/07/2024 4 documented in this encounter Miscellaneous Notes * Telephone Encounter - Arabella Raya MD - 01/06/2024 10:55 AM EDT Received call from buhr mill operator stating that rx was sent to [facility] and [facility] cancelled it aftercalling her previous pain clinic. Patient requested that it be re-sent to [facility] in [place]. Since the rx had already been sent for fill tomorrow, I thought it reasonable to re-send today as this was not a typical after hours request. fur dressing supervisor notified. documented in this encounter Plan of Treatment Upcoming Encounters Date Type Department Care Team (Late st Contact Info) Description 03/24/2025 10:40 AM EDT Appointment [facility] [place] [address] Darío Rubio MD 1 [facility] [place] [address] 05/19/2025 1:00 PM EDT Appointment [facility] [place] [address] Olena Darby APRN 1 [facility] [place] [address] [place] [address] 05/22/2025 2:45 PM EDT Appointment [place] [address] Jacky Shirley MD 1 [facility] [place] [address] [place] [address] documented as of this encounter Goals Goal [...] documented as of this encounter Care Teams Library Monitor Relationship Specialty Start Date End Date Damaso Black MD [address] [place] [address] PCP - General Family Medicine 11/22/22 Swapnil Lopez MD [address] [place] [address] Internal Medicine-Gastroenterolog y 02/16/22 Darío Rubio MD 1 [facility] [place] [address] Internal Medicine-Medical Oncology 12/11/23 Mya Naranjo MD 1 [facility] [place] [address] Family Medicine - Hospice And Palliative Medicine 01/04/24 Ashley Ordonez APRN 1 [facility] [place] [address] Nurse Practitioner 01/04/24 Nicole Melendez, RN Registered Nurse 01/04/24 Carine Viera, RN Registered Nurse 02/07/24 Ronit Conner, RN Registered Nurse 04/10/24 Armando Vieira MSW Furnace Brazer 04/10/24 Vicki Amato, RN Registered Nurse 04/10/24 Trinh Bullock, YON 1 [facility] [place] [address] Nurse Practitioner Nurse Practitioner-Family 04/10/24 Selina Olsen APRN 1 [facility] [place] [address] Nurse Practitioner 04/10/24 Veda Mcfarland, Clerical Staff 05/14/24 Jacky Shirley MD 1 [place] [address] Radiation Oncologist Radiology-Radiation Oncology 11/12/24 documented as of this encounter
--- OUTSIDE RECORDS SUMMARY | 2025-03-17 13:36 | XMS_ITS | Encounter Summary ---
Author Organization [place] [address] Care Team Providers Care Sole Tacker Name Role Phone Swapnil Lopez MD Unavailable [phone] Damaso Black MD Primary Care Provider [phone] Darío Rubio MD Unavailable [phone] Mya Naranjo MD Unavailable [phone] Ashley Ordonez REDEYE GUNNER Unavailable [phone] Nicole Melendez RN Unavailable Unavailable Carine Viera RN Unavailable Unavailable Ronit Conner RN Unavailable Unavailable Armando Vieira AD SETTER Unavailable Unavailable Vicki Amato RN Unavailable UnavailTrinh Soto REDEYE GUNNER Unavailable + Selina Olsen REDEYE GUNNER Unavailable + Veda Mcfarland Clerical Staff Unavailable U Jacky Santoyo MD Unavailable +3 Encounter Details Date Type Department Care Team (Late st Contact Info) Description 10/26/2023 Orders Only [facility] [place] [address] Tika Mc MD [address] [place] [phone] Social History Tobacco Use Types Packs/Day Years [...] AM EDT Appointment [facility] [place] [address] Darío Rubio MD [address] [place] [address] [place] [address] 05/19/2025 1:00 PM EDT Appointment [facility] [place] [address] Olena Darby APRN [address] [place] [address] [place] [address] 05/22/2025 2:45 PM EDT Appointment [place] [address] Jacky Shirley MD 1 [facility]CER CARE [place] [id number] documented as of this encounter Goals Goal [...] AM EST) 10/26/2023 9:48 AM EST Narrative [facility] - 11/01/2023 3:22 PM EST Requesting Provider: CANDY Freire Specimen = [id number] Tika Mc MD PATHOLOGY ORDERABLES Final Resul t [facility] [address] [place] [id number] documented in this encounter Visit Diagnoses Not on filedocumented in this encounter Care Teams Sole Tacker Relationship Specialty Start Date End Date Damaso Black MD [address] [place] [address] PCP - General Family Medicine 11/22/22 Swapnil Lopez MD [address] [place] [address] Internal Medicine-Gastroenterolog y 02/16/22 Darío Rubio MD 1 [facility] [place] [address] Internal Medicine-Medical Oncology 12/11/23 Mya Naranjo MD [address] [facility] [place] [address] Family Medicine - Hospice And Palliative Medicine 01/04/24 Ashley Ordonez, YON [address] [facility] [place] [address] Nurse Practitioner 01/04/24 Nicole Melendez, RN Registered Nurse 01/04/24 Carine Viera, RN Registered Nurse 02/07/24 Ronit Conner, RN Registered Nurse 04/10/24 Armando Vieira MSW Quality Assurance Director 04/10/24 Vicki Amato, RN Registered Nurse 04/10/24 Trinh Bullock, YON 1 [facility] [place] [address] Nurse Practitioner Nurse Practitioner-Family 04/10/24 Selina Olsen, YON 1 [facility] [place] [address] Nurse Practitioner 04/10/24 Veda Mcfarland, Clerical Staff 05/14/24 Jacky Shirley MD 1 [facility] [place] [address] Radiation Oncologist Radiology-Radiation Oncology 11/12/24 documented as of this encounter
--- OUTSIDE RECORDS SUMMARY | 2025-03-17 13:36 | XMS_ITS | Encounter Summary ---
Author Organization [place] [address] Care Team Providers Care Beater Machine Operator Name Role Phone Swapnil Lopez MD Unavailable [phone] Damaso Black MD Primary Care Provider [phone] Darío Rubio MD Unavailable [phone] Mya Naranjo MD Unavailable [phone] Ashley Ordonez ALUMINUM BOAT ASSEMBLY SUPERVISOR Unavailable [phone] Nicole Melendez RN Unavailable Unavailable Carine Viera RN Unavailable Unavailable Ronit Conner RN Unavailable Unavailable Armando Vieira NANOFABRICATION SPECIALIST Unavailable Unavailable Vicki Amato RN Unavailable UnavailTrinh Soto ALUMINUM BOAT ASSEMBLY SUPERVISOR Unavailable [phone] Selina Olsen ALUMINUM BOAT ASSEMBLY SUPERVISOR Unavailable +[phone] Veda Mcfarland Clerical Staff Unavailable U Jacky Santoyo MD Unavailable +-[phone] Reason for Visit * Reason Onset Date Comments Orders 03/13/2025 Lab orders to [facility] Encounter Details Date Type Department Care Team (Late st Contact Info) Description 03/13/2025 Telephone [facility] [place] [address] Darío Rubio MD [address] [place] [address] Orders (Lab orders to [place] [facility]) Social History Tobacco Use Types Packs/Day Years [...] Miscellaneous Notes * Telephone Encounter - Carine Virea RN - 03/13/2025 9:10 AM EDT Faxed orders to [place] [facility]. Fax confirmation received. * Telephone Encounter - Tessa Dotson, Clerical Staff - 03/13/2025 8:29 AM EDT Reason for call: Pastora at [facility] is calling regarding CT orders CT CHEST ABDOMEN PELVIS WO ORAL WITH IV CONTRAST (Order #[id number]) on 03/07/25 She said that orders, for patient to have her creatine level checked, needs to be sent to [place] [facility], before Ms Sy can have her CT. Preferred call back number:[phone] documented in this encounter Plan of Treatment Upcoming Encounters Date Type Department Care Team (Late st Contact Info) Description 03/24/2025 10:40 AM EDT Appointment [facility] [place] [address] Darío Rubio MD [address] [place] [address] 05/19/2025 1:00 PM EDT Appointment [facility] [place] [address] Olena Darby APRN [address] [facility] [address] 05/22/2025 2:45 PM EDT Appointment [facility] [place] [address] Jacky Shirley MD [address] [facility] [place] [address] documented as of this encounter Goals Goal [...] documented as of this encounter Care Teams Beater Machine Operator Relationship Specialty Start Date End Date Damaso Black MD [address] [place] [address] PCP - General Family Medicine 11/22/22 Swapnil Lopez MD [address] [place] [address] Internal Medicine-Gastroenterolog y 02/16/22 Darío Rubio MD [address] [facility] [place] [address] Internal Medicine-Medical Oncology 12/11/23 Mya Naranjo MD [address] [place] [address] [place] [address] Family Medicine - Hospice And Palliative Medicine 01/04/24 Ashley Ordonez APRN [address] [facility] [place] [address] Nurse Practitioner 01/04/24 Nicole Melendez, RN Registered Nurse 01/04/24 Carine Viera, RN Registered Nurse 02/07/24 Ronit Conner, RN Registered Nurse 04/10/24 Armando Vieira, ITA Aviation Consultant 04/10/24 Vicki Amato, RN Registered Nurse 04/10/24 Trinh Bullock, ALUMINUM BOAT ASSEMBLY SUPERVISOR [address] [facility] [place] [address] Nurse Practitioner Nurse Practitioner-Family 04/10/24 Selina Olsen, YON [address] [facility] [place] [address] Nurse Practitioner 04/10/24 Veda Mcfarland, Clerical Staff 05/14/24 Jacky Shirley MD 1 [facility] [place] [address] Radiation Oncologist Radiology-Radiation Oncology 11/12/24 documented as of this encounter
--- OUTSIDE RECORDS SUMMARY | 2025-03-17 13:36 | XMS_ITS | Encounter Summary ---
Author Organization [place] [address] Care Team Providers Care Housekeeper [facility] Name Role Phone Swapnil Lopez MD Unavailable [phone] Damaso Black MD Primary Care Provider [phone] Darío Rubio MD Unavailable Mya Naranjo MD Unavailable [phone] Ashley Ordonez FINANCIAL AID COORDINATOR Unavailable [phone] Nicole Melendez RN Unavailable Unavailable Carine Viera RN Unavailable Unavailable Ronit Conner RN Unavailable Unavailable Armando Vieira BOX TRUCK OWNER OPERATOR Unavailable Unavailable Vicki Amato RN Unavailable UnavailTrinh Soto FINANCIAL AID COORDINATOR Unavailable + Selina Olsen FINANCIAL AID COORDINATOR Unavailable + Veda Mcfarland Clerical Staff Unavailable U Jacyk Santoyo MD Unavailable [phone] Encounter Details Date Type Department Care Team (Late st Contact Info) Description 10/26/2023 Orders Only [facility] [place] [address] Tika Mc MD [address] [place] [phone] Social History Tobacco Use Types Packs/Day Years [...] AM EDT Appointment [facility] [place] [address] Darío Rubio MD [address] [place] [address] [place] [address] 05/19/2025 1:00 PM EDT Appointment [facility] [place] [address] Olena Darby APRN [address] [place] [address] [place] [address] 05/22/2025 2:45 PM EDT Appointment [place] [address] Jacky Shirley MD 1 [facility] CANCER CARE [place] [id number] documented as of this encounter Goals Goal [...] AM EST) 10/26/2023 9:48 AM EST Narrative [facility] - 11/01/2023 3:22 PM EST Requesting Provider: CANDY Freire Specimen = [id number] Tika Mc MD PATHOLOGY ORDERABLES Final Resul t [facility] [address] [place] [id number] documented in this encounter Visit Diagnoses Not on filedocumented in this encounter Care Teams [facility]keeper [facility] Relationship Specialty Start Date End Date Damaso Black MD [address] [place] [address] PCP - General Family Medicine 11/22/22 Swapnil Lopez MD [address] [place] [address] Internal Medicine-Gastroenterolog y 02/16/22 Darío Rubio MD 1 [facility] [place] [address] Internal Medicine-Medical Oncology 12/11/23 Mya Naranjo MD [address] [facility] [place] [address] Family Medicine - Hospice And Palliative Medicine 01/04/24 Ashley Ordonez, YON [address] [facility] [place] [address] Nurse Practitioner 01/04/24 Nicole Melendez, RN Registered Nurse 01/04/24 Carine Viera, RN Registered Nurse 02/07/24 Ronit Conner, RN Registered Nurse 04/10/24 Armando Vieira MSW Cook Fish Eggs 04/10/24 Vicki Amato, RN Registered Nurse 04/10/24 Trinh Bullock, YON [address] [place] [address] Nurse Practitioner Nurse Practitioner-Family 04/10/24 Selina Olsen, YON [address] [place] [address] Nurse Practitioner 04/10/24 Veda Mcfarland, Clerical Staff 05/14/24 Jacky Shirley MD 1 [facility] [place] [address] Radiation Oncologist Radiology-Radiation Oncology 11/12/24 documented as of this encounter
--- OUTSIDE RECORDS SUMMARY | 2025-03-17 13:36 | XMS_ITS | Encounter Summary ---
Author Organization [place] [address] Care Team Providers Care Violin Teacher Name Role Phone Swapnil Lopez MD Unavailable [phone] Damaso Black MD Primary Care Provider [phone] Darío Rubio MD Unavailable Mya Naranjo MD Unavailable [phone] Ashley Ordonez SLEEPING CAR PORTER Unavailable [phone] Nicole Melendez RN Unavailable Unavailable Carine Viera RN Unavailable Unavailable Ronit Conner RN Unavailable Unavailable Armando Vieira LEGAL INVESTIGATOR Unavailable Unavailable Vicki Amato RN Unavailable UnavailTrinh Soto SLEEPING CAR PORTER Unavailable [phone] Selina Olsen SLEEPING CAR PORTER Unavailable [phone] Veda Mcfarland Clerical Staff Unavailable U Jacky Santoyo MD Unavailable +-[phone] Reason for Visit * Reason Comments Medication Refill Encounter Details Date Type Department Care Team (Late st Contact Info) Description 03/06/2025 Refill [facility] [place] [address] Darío Rubio MD [address] [place] [address] Medication Refill Social History Tobacco Use [...] followed by 7 days off 42 Tablet 03/06/2025 documented in this encounter Miscellaneous Notes * Telephone Encounter - Carine Viera RN - 03/06/2025 11:04 AM EDT Received refill request for kisqali for pt. Reviewed chart; pt has f/u appt on 03/24/2025. Last RX was sent on 02/06/2025 with 0 refills, so refill is appropriate. Last office note on 01/29/2025 states: Continue AI + kisqali 400 mg daily (days 1-14, off 7 days after). Escript for kisqali sent to pt'spharmacy. documented in this encounter Plan of Treatment Upcoming Encounters Date Type Department Care Team (Late st Contact Info) Description 03/24/2025 10:40 AM EDT Appointment [facility] [place] [address] Darío Rubio MD 1 [facility] [place] [address] 05/19/2025 1:00 PM EDT Appointment [facility] [place] [address] Olena Darby APRN 1 [facility] [place] [address] 05/22/2025 2:45 PM EDT Appointment [place] [address] Jacky Shirley MD 1 [facility] [place] [address] documented as of this encounter Goals Goal [...] days followed by 7 days off Reorder 02/06/2025 03/06/2025 documented as of this encounter Additional Health Concerns Assessment Noted Time PHQ-9 Depression Total Score: 13 024 1:47 PM EDT PHQ-2 Depression Total Score: 3 12/29/19 24 1:47 PM EDT documented as of this encounter Care Teams Violin Teacher Relationship Specialty Start Date End Date Damaso Black MD [address] [place] [address] PCP - General Family Medicine 11/22/22 Swapnil Lopez MD [address] [place] [address] Internal Medicine-Gastroenterolog y 02/16/22 Darío Rubio MD [address] [facility] [place] [address] Internal Medicine-Medical Oncology 12/11/23 Mya Naranjo MD [address] [facility] [place] [address] Family Medicine - Hospice And Palliative Medicine 01/04/24 Ashley Ordonez APRN [address] [facility] [place] [address] Nurse Practitioner 01/04/24 Nicole Melendez, RN Registered Nurse 01/04/24 Carine Viera, RN Registered Nurse 02/07/24 Ronit Conner, RN Registered Nurse 04/10/24 Armando Vieira MSW Trial Mgr 04/10/24 Vicki Amato, RN Registered Nurse 04/10/24 Trinh Bullock APRN [address] [facility] [place] [address] Nurse Practitioner Nurse Practitioner-Family 04/10/24 Selina Olsen APRN 1 [facility] [place] [address] Nurse Practitioner 04/10/24 Veda Mcfarland, Clerical Staff 05/14/24 Jacky Shirley MD 1 [facility] [place] [address] Radiation Oncologist Radiology-Radiation Oncology 11/12/24 documented as of this encounter
--- OUTSIDE RECORDS SUMMARY | 2025-03-17 13:36 | XMS_ITS | Clinical Summary ---
Author Organization [facility] Address [address] [place] [address] Care Team Providers Care Furniture Cleaner Name Role Phone Damaso Black MD Primary Care Provider [phone] Source Comments This information has been disclosed [...] therelease of HIV test results or diagnoses. [id number] Allergies Active Allergy Reactions Criticality Noted Date [...] will need to watch closely. Hope that halfway the ssri will help and will no [...] 90 04/08/2020 2:52 PM EDT Temperature 36.6 C (97.9 F) 03/24/2020 9:58 PM EDT Respiratory Rate 16 03/24/2020 9:58 PM EDT Oxygen Saturation 99% 03/24/2020 9:58 PM EDT Inhaled Oxygen Concentration 99% 03/24/2020 9 :58 PM EDT Weight 53.1 kg (117 lb) 04/08/2020 2:52 PM EDT Height 157.5 cm (5' 2 ) 04/08/2020 2:52 PM EDT Body Mass Index 21.4 04/08/2020 2:52 PM EDT Plan of Treatment Not on file Advance Directives For more information, please contact: [phone] * Full Code (Latest Code Status on File) Date Activated Date Inactivated Comments 12/06/2019 10:04 AM 12/07/2019 5:26 PM * DNRCC-A Date Activated Date Inactivated Comments 12/03/2019 10:21 PM 12/06/2019 10:04 AM * Full Code Date Activated Date Inactivated Comments 12/03/2019 8:11 PM 12/03/2019 10:21 PM Care Teams Furniture Cleaner Relationship Specialty Start Date End Date Damaso Black MD [address] [place] [address] PCP - General Family Medicine 12/03/19
--- OUTSIDE RECORDS SUMMARY | 2025-03-17 13:36 | XMS_ITS | Encounter Summary ---
Author Organization [place] [address] Care Team Providers Care Malt House Loader Name Role Phone Swapnil Lopez MD Unavailable [phone] Damaso Black MD Primary Care Provider [phone] Darío Rubio MD Unavailable [phone] Mya Naranjo MD Unavailable [phone] Ashley Ordonez PERFORMING ARTIST Unavailable [phone] Nicole Melendez RN Unavailable Unavailable Carine Viera RN Unavailable Unavailable Ronit Conner RN Unavailable Unavailable Armando Vieira FINANCIAL REP Unavailable Unavailable Vicki Amato RN Unavailable UnavailTrinh Soto PERFORMING ARTIST Unavailable + Selina Olsen PERFORMING ARTIST Unavailable + Veda Mcfarland Clerical Staff Unavailable U Jacky Santoyo MD Unavailable +[phone] Encounter Details Date Type Department Care Team (Late st Contact Info) Description 10/26/2023 Orders Only [facility] One [facility] [place] [address] Tika Mc MD [address] [place] [address] Social History Tobacco Use Types Packs/Day Years [...] 11:13 AM Gbaby De La Garza RMA documented as of [...] AM EDT Appointment [facility] [place] [address] Darío Rubio MD [address] [place] [address] [place] [address] 05/19/2025 1:00 PM EDT Appointment [facility] [place] [address] Olena Darby APRN [address] [place] [address] [place] [address] 05/22/2025 2:45 PM EDT Appointment [facility] [place] [address] Jacky Shirley MD 1 [facility] [place] [address] documented as of this encounter Goals Goal Patient Goal Type Associated Problems Recent Progress Patient-Stated? Author Maintain a healthy diet, exercise regularly and maintain an ideal body weight General No Linda Walden, RMA documented as of this encounter Procedures Procedure Name Priority Date/Time Associated Diagnosis Comments NEOGENOMICS HER2 BREAST Routine 10/26/2023 9:48 AM EST documented in this encounter Results * NEOGENOMICS HER2 BREAST (10/26/2023 9:48 AM EST) 10/26/2023 9:48 AM EST Narrative [facility] - 11/06/2023 4:42 PM EST Requesting Provider: CANDY Freire Specimen = [id number] Tika Mc MD PATHOLOGY ORDERABLES Final Resul t [facility] [address] [place] [id number] documented in this encounter Visit Diagnoses Not on filedocumented in this encounter Care Teams Malt House Loader Relationship Specialty Start Date End Date Damaso Black MD [address] [place] [address] PCP - General Family Medicine 11/22/22 Swapnil Lopez MD [address] [place] [address] Internal Medicine-Gastroenterolog y 02/16/22 Darío Rubio MD 1 [place] [address] Internal Medicine-Medical Oncology 12/11/23 May Naranjo MD [address] [place] [address] [place] [address] Family Medicine - Hospice And Palliative Medicine 01/04/24 Ashley Ordonez, YON [address] [place] [address] Nurse Practitioner 01/04/24 Nicole Melendez, RN Registered Nurse 01/04/24 Carine Viera, RN Registered Nurse 02/07/24 Ronit Conner, RN Registered Nurse 04/10/24 Armando Vieira MSW Uat Tester 04/10/24 Vicki Amato, RN Registered Nurse 04/10/24 Trinh Bullock, YON [address] [place] [address] Nurse Practitioner Nurse Practitioner-Family 04/10/24 Selina Olsen APRN [address] [facility] [place] [address] Nurse Practitioner 04/10/24 Veda Mcfarland, Clerical Staff 05/14/24 Jacky Shirley MD 1 [facility] [place] [address] Radiation Oncologist Radiology-Radiation Oncology 11/12/24 documented as of this encounter
--- OUTSIDE RECORDS SUMMARY | 2025-03-17 13:36 | XMS_ITS | Data Portability ---
Author Organization [place] [facility] Address [address] [place] [address] Care Team Providers Care Senior Physician Name Role Phone JEREMÍAS AMIN Referring Provider Unavailable CARITO TONEY Radiation Oncologist Assessment Encounter Date Assessment Date Assessment LastModified [...] on Nutrition Assessment [address], [address] [place] [address] Liv Cobos, [place], [address], 05:01:41 Procedures None recorded. Surgeries None recorded. Imaging NM, bone scan, whole body - Please schedule ANNA to expedite treatment start date 2023 [address] (Centralized Scheduling), [address], [place], [address], 4 05:01:31 MRI, brain, w/wo contrast - Schedule ANNA to begin treatments 2023 [address]IN[address] (Centralized Scheduling), [address], [place], [address], 4 05:01:39 Medication Orders None recorded. Patient TargetsNo targets recorded. Patient InstructionsNo instructions recorded. 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 [email or web address] [facility] [address], [place], [address], 12/26/2023 14:21:37 12/26/19 24 11/23/2023 imagi ng/di agnos tic resul t No observ ation record ed. [email or web address] Not Available 2023 14:21:37 Result Notes None recorded. 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 Procedures Surgical History Date Name Laterality Status Provider Name and Address Organization Details Recorded Time 10/02/19 02 Total hysterectomy completed Faby Berg [place] [facility] [place] 12/26/2023 14:42:16 10/02/18 90 partial hysterectomy completed Faby Berg [place] [facility] [place] 12/26/2023 14:41:45 Imaging Results None recorded. Procedure Notes None recorded. Medical Equipment None Reported. Allergies Allergen ID Allergen Name Allergen Category Reaction Reaction Severity Criticality Documentation Date Start Date Code Code System Note Provider Name and Address Organization Details Recorded Time 356364 Substance with sulfonami de structure and antibacte rial mechanism of action (substanc e) medicatio n Not available Not available Not available 12/26/2023 13348 8003 SNOMED ABBE Naranjo [place] [facility] [place] 4 14:35:25 Medications Name Sig Start Date Stop [...] Last Updated DateTime 157.48 cm 25.2 kg/m2 03192.3 1 g 98 [degF] 98 % 98 % 75 /min 19 /min 135 mm[Hg] 82 mm[Hg] Faby Mercado [facility] 14:34:01 Social History Question Answer Notes LastModified by [email or web address] Details LastModified Time Tobacco Smoking Status Never Smoker Faby Mercado [facility] 12/26/2023 14:39:13 What Was The Date Of Your Most Recent Tobacco Screening? 12/26/2023 Information not available 12/26/2023 How Many Children Do You Have? 2 Information not available 12/26/2023 What Is Your Relationship Status? Information not available 12/26/2023 Has Tobacco Cessation Counseling Been Provided? No Information not available 12/26/2023 Do You Have Difficulty Walking Or Climbing Stairs? Yes Information not available 12/26/2023 Sex: Unknown Functional Status Question Answer Note LastModified by [email or web address] Details LastModified Time Do you use any illicit or recreational drugs? No Information not available 12/26/2023 Do you or have you ever used any other forms of tobacco or nicotine? No Information not available 12/26/2023 What is your level of alcohol consumption? Occasional Information not available 12/26/2023 What is your status? Not Information no t available 12/26/2023 Do you have difficulty doing errands alone? Yes Information not available 12/26/2023 Mental Status Question Answer Note LastModified by Organizat ion Details LastModified Time Do you feel stressed (tense, restless, nervous, or anxious, or unable to sleep at night)? 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 71240472 C50.419 Estrogen r eceptor positive tumor 435746784 Z17.0 Recurrent falls 72673467 2 R29.6 Health Concerns Section Related Observation LastModified by Organization Detai ls LastModified Time None Recorded Concern Status LastModified by Organization Details LastModified Time None Recorded Advance Directives Directive None Recorded Payers Insurance Date Sequence Insurance Name Policy Number Policy Gerardo Covered Member ID Gerardo Member ID Guarantor Name 01/11/2024 1 [place] [id number] Marleni Sy [id number] Marleni Sy Notes Date Note Type Note Provider Name and Address Organization Details Recorded Time 12/26/2023 text/html Thanks for referring this nice lady.A pleasant 63-year-old white has 2 sons came accompanied with her youngest son and a relative Fatimah EncisoBritton which used to work in Radiation Oncology.She [...] state family history unremarkable for cancer. Carito Toney MD [address] [facility],[address], [place], [address], [place] [facility] [place] 12/26/2023 15:35:23 OBGyn Episode No OBEpisode recorded.
[2025-03-17 13:51] VITALS: BP 154/85; PULSE 62; RESP 18; O2SAT 100; BMI 21.0
--- NOTE | 2025-03-17 13:54 | EXP.PAIN.SOA ---
[facility] Disclaimer: The information contained in this section may have been updated after the patient was seen, as this information can be updated by other users. Social History (Updated 05/26/22 @ 12:17 by Kristina Chase APRN) Smoking Status: Never smoker alcohol intake: never current occupational status: other Travel in the last 8 weeks?: None PM Subjective & Objective Subjective Subjective:: Patient is a pleasant 64-year-old female who presents today for 3-month medication refill and follow-up. Patient does rate her pain today a 9 out of 10. Patient states this is more related to a Crohn's flareup that she has had the last 3 days. Patient does state that she is still been doing remarkably well on her medications. We had changed her to tramadol 100 mg 3 times a day and baclofen 5 mg 3 times daily. She denies any side effects. She does state that her pharmacy is requesting a phone call from our office stating that she would be able to pick it up today. Patient states the medication is due tomorrow. Her Cory has been reviewed and is appropriate. Review of Systems: General: No recent weight changes, no fever, no sleep disturbances Respiratory: No cough, no shortness of air, no recurring pulmonary infections Cardiovascular/peripheral vascular: No chest pain, no palpitations, no edema, no shortness of breath Gastrointestinal: No new onset incontinence, normal bowel movements reported Genitourinary: No new onset incontinence Musculoskeletal: Low back pain, chronic pain syndrome Psychiatric: [Normal mood/affect] Neurological: [Denies weakness in extremities], [denies balance issues] Pain at rest (0-10 scale): 9 Objective Objective:: Physical Exam: General: Alert and oriented x3, no acute distress, pleasant and cooperative Lungs: Respirations even and unlabored, symmetrical chest expansion Eyes: PERRL Musculoskeletal: Flexion and extension of lumbar [spine] somewhat guarded secondary to pain, [antalgic gait noted] Neurological: Speech clear, no gross sensory deficit Has patient had previous pain injection?: No Conservative treatment options previously tried: Home exercise plan Length of treatment: Longer than 12 weeks Meds Home Medications and Allergies Home Medications ?Medication ?Instructions ?Recorded ?Confirmed ?Type loperamide 2 mg tablet 2 mg PO Q3H diarrhea 04/25/22 11/29/24 History ondansetron HCl 4 mg tablet 4 mg PO Q6H PRN Nausea 04/25/22 11/29/24 History prednisone 10 mg tablets in a dose 10 mg PO DAILY PRN chrons 04/25/22 11/29/24 History pack ustekinumab 45 mg/0.5 mL 45 mg SQ . DIRECTED chrons 04/25/22 11/29/24 History subcutaneous syringe tramadol 50 mg tablet 50 mg PO 5XDAY #150 tabs 04/17/23 11/29/24 Rx anastrozole 1 mg tablet 1 mg PO DIRECTED 05/16/24 11/29/24 History diphenoxylate-atropine 2.5 2.5 tab PO DIRECTED 05/16/24 11/29/24 History mg-0.025 mg tablet promethazine 25 mg tablet 25 mg PO DIRECTED 05/16/24 11/29/24 History ribociclib 400 mg/day (200 mg x 2) 400 mg PO DIRECTED 05/16/24 11/29/24 History tablets (Kisqali) tramadol 50 mg tablet 50 mg PO Q4H PRN pain #72 tabs 07/26/24 11/29/24 Rx tramadol 50 mg tablet 50 mg PO Q4H PRN pain #180 tabs 08/15/24 11/29/24 Rx tramadol 50 mg tablet 50 mg PO Q4H PRN pain #180 tabs 10/04/24 11/29/24 Rx baclofen 5 mg tablet 5 mg PO TID #90 tabs 12/26/24 Rx tramadol 100 mg tablet 100 mg PO TID PRN pain #90 tabs 12/26/24 Rx New Prescriptions to Start Prescriptions: Allergies Allergy/AdvReac Type Severity Reaction Status Date / Time fat emulsions Allergy Unknown Verified 03/15/23 14:32 allergy reaction Sulfa (Sulfonamide Allergy Unknown Verified 03/15/23 14:32 Antibiotics) allergy reaction Assessment and Plan *Assessment and plan (1) Brain cancer: Status: Acute Qualifiers: Malignant neoplasm of brain location: unspecified location Qualified Code(s): C71.9 - Malignant neoplasm of brain, unspecified Category: Medical Code(s): C71.9 - Malignant neoplasm of brain, unspecified (2) Generalized abdominal pain: Status: Acute Category: Medical Code(s): R10.84 - Generalized abdominal pain (3) Generalized pain: Status: Acute Category: Medical Code(s): R52 - Pain, unspecified Plan I will refill the patient's tramadol and baclofen and provide a 3-month supply of this medication. We will reach out to [facility] in [place] and let them know that we do not have any objections to her filling the medication today. Patient will return to clinic in 3 months for reevaluation of symptoms and plan of care. Risks and benefits of the medication have been explained in detail to the patient. The patient does understand the risk of dependence on the medication when given over a prolonged period. Patient has been advised of risks of oversedation with the prescribed medication. Narcan has been offered to the paitent in the event of oversedation. Patient has been advised that a family member should also be educated regarding administration of Narcan. The patient has been advised to consult with his/her primary care provider and pharmacist regarding drug-drug interaction of medications currently prescribed. Patient has been prescribed a controlled substance after being counseled on the medication, medication safety, and possible side effects. Opioid contract was reviewed and signed by the patient, and that they have agreed to all of the terms set forth by our compliance program. A UDS is needed to verify patient's compliance with our office pain contract. This is ordered based off specific treatments related to chronic pain with the potential to abuse certain medications. Patient has been instructed to contact the clinic with any concerns before the next appointment. Dr. Rankin has reviewed this note and agrees with this plan of care. This note was dictated using voice recognition software and make contain errors or omissions.
== END 2025-03-17 23:59 | disposition home or self-care (01) ==
PROVIDERS: PCP Obstetrics & Gynecology; Visit Provider Nurse Practitioner Family
DX: C71.9 Malignant neoplasm of brain, unspecified (principal); R10.84 Generalized abdominal pain; Z79.891 Long term (current) use of opiate analgesic; Z79.899 Other long term (current) drug therapy
CPT/HCPCS: 99212; G0463